=== PATIENT | female | born 1935 | race African-American/Black ===

== ENCOUNTER 2017-07-07 14:21 | Inpatient (IN) | payer MEDICARE ==
[~2017-07-07] VITALS: Ht 162.6 cm; Wt 70.3 kg
[2017-07-07] VITALS (23 sets, daily range): BP systolic 56–147; BP diastolic 24–96
[2017-07-07] MEDS ORDERED: Ampicillin/Sulbactam Sod 3 GM in NS 110 ML IV SCH (14:30)
[2017-07-07] MEDS ORDERED: Vancomycin 1 GM in NS 275 ML IV ONE (14:30)
[2017-07-07] MEDS ORDERED: BISACODYL5 MG RECTAL (14:40)
[2017-07-07] MEDS ORDERED: NAMENDA5 MG GT (14:40)
[2017-07-07] MEDS ORDERED: MILK OF MA2400 MG/10 GT (14:40)
[2017-07-07] MEDS ORDERED: TRAZODONE HCL50 MG GT ×2 (14:40→18:47)
[2017-07-07] MEDS ORDERED: ACETAMINOP160 MG/5 M GT (14:40)
[2017-07-07] MEDS ORDERED: VALPROIC ACID1 ML GT (14:40)
[2017-07-07] MEDS ORDERED: VITAMIN C500 M1 GT (14:40)
[2017-07-07] MEDS ORDERED: LATANOPROST2.5 ML BOTH EYES (14:40)
[2017-07-07] MEDS ORDERED: ALBUTEROL2.5 MG/3 M INH (14:40)
[2017-07-07] MEDS ORDERED: IPRATROPIU0.2 MG/1 M HHN (14:40)
[2017-07-07] MEDS ORDERED: LORAZEPAM0.5 MG GT ×2 (14:40→18:48)
--- NOTE | 2017-07-07 15:00 | Diagnostic Imaging Report ---
Indication: Dyspnea Comparison: None A single view chest radiograph was obtained. Findings: Interstitial edema, vascular prominence, borderline cardiomegaly and hazy basilar opacities probably pleural effusions demonstrated. Tracheostomy and generalized osteopenia are noted. Impression: CHF/interstitial edema. Suspected bilateral pleural effusions
[2017-07-07] MEDS ORDERED: Lidocaine 1% Plain 30 ml INJ ONE ×2 (15:16→16:45)
[2017-07-07] MEDS ORDERED: Albuterol/Ipratropium 3ml neb HHN PRN (15:30)
[2017-07-07] MEDS ORDERED: Morphine Sulfate 4mg/ml Inj IVP PRN (15:30)
[2017-07-07] MEDS ORDERED: Miralax 17gm pkt ORAL PRN (15:30)
--- NOTE | 2017-07-07 15:32 | Pulmonolgy Critical Care Note ---
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 - Objective Last 24 Hour Vital Signs Date Time Temp Pulse Resp B/P (MAP) Pulse Ox O2 Delivery O2 Flow Rate FiO2 07/07/17 14:30 115 23 Mechanical Ventilator 15.0 35 07/07/17 14:30 115 21 35 07/07/17 14:23 97.9 118 24 61/38 100 Mechanical Ventilator 35 Status: awake Condition: critical HEENT: atraumatic Lungs: clear Heart: HR/BP unstable Abdomen: soft, non-tender Extremities: no C/C/E Critical Care - Subjective ROS Limited/Unobtainable: Yes ICU Day: 1 Interval Events: pt with chronic respiratory failure, bed bound, seizures, htn, admitted to ICU because of septic shock FI02: 35 Vent Support Breath Rate: 15 Vent Support Mode: AC Vent Tidal Volume: 500 Sputum Amount: Small PEEP: 5.0 PIP: 31 Fluids: NS 100 cc/hour Drips: Levophed 9 ug CXR: bilateral infiltrate Labs: Laboratory Tests Test 07/07/17 15:05 07/07/17 15:35 07/08/17 04:35 White Blood Count 21.1 K/UL (4.8-10.8) H 16.6 K/UL (4.8-10.8) H Red Blood Count 2.65 M/UL (4.20-5.40) L 2.31 M/UL (4.20-5.40) L Hemoglobin 8.0 G/DL (12.0-16.0) L 7.1 G/DL (12.0-16.0) L Hematocrit 26.4 % (37.0-47.0) L 22.3 % (37.0-47.0) L Mean Corpuscular Volume 100 FL (80-99) H 96 FL (80-99) Mean Corpuscular Hemoglobin 30.2 PG (27.0-31.0) 30.8 PG (27.0-31.0) Mean Corpuscular Hemoglobin Concent 30.4 G/DL (32.0-36.0) L 32.0 G/DL (32.0-36.0) Red Cell Distribution Width 15.2 % (11.6-14.8) H 15.3 % (11.6-14.8) H Platelet Count 381 K/UL (150-450) 400 K/UL (150-450) Mean Platelet Volume 6.4 FL (6.5-10.1) L 7.0 FL (6.5-10.1) Neutrophils (%) (Auto) % (45.0-75.0) % (45.0-75.0) Lymphocytes (%) (Auto) % (20.0-45.0) % (20.0-45.0) Monocytes (%) (Auto) % (1.0-10.0) % (1.0-10.0) Eosinophils (%) (Auto) % (0.0-3.0) % (0.0-3.0) Basophils (%) (Auto) % (0.0-2.0) % (0.0-2.0) Differential Total Cells Counted 100 Neutrophils % (Manual) 77 % (45-75) H Pending Lymphocytes % (Manual) 8 % (20-45) L Pending Monocytes % (Manual) 5 % (1-10) Eosinophils % (Manual) 3 % (0-3) Basophils % (Manual) 0 % (0-2) Band Neutrophils 7 % (0-8) Nucleated Red Blood Cells 1 /100 WBC Platelet Estimate Adequate Pending Platelet Morphology Normal Pending Polychromasia 1+ Anisocytosis 1+ Macrocytosis 1+ Sodium Level 153 MMOL/L (136-145) H 157 MMOL/L (136-145) H Potassium Level 4.4 MMOL/L (3.5-5.1) 3.8 MMOL/L (3.5-5.1) Chloride Level 113 MMOL/L (98-107) H 119 MMOL/L (98-107) H Carbon Dioxide Level 30 MMOL/L (21-32) 30 MMOL/L (21-32) Anion Gap 10 mmol/L (5-15) 8 mmol/L (5-15) Blood Urea Nitrogen 33 mg/dL (7-18) H 29 mg/dL (7-18) H Creatinine 1.1 MG/DL (0.55-1.30) 1.0 MG/DL (0.55-1.30) Estimat Glomerular Filtration Rate mL/min (>60) mL/min (>60) Glucose Level 231 MG/DL (74-106) H 88 MG/DL (74-106) # Lactic Acid Level 2.00 mmol/L (0.66-2.22) 1.90 mmol/L (0.66-2.22) 1.60 mmol/L (0.66-2.22) Calcium Level 9.2 MG/DL (8.5-10.1) 8.6 MG/DL (8.5-10.1) Total Bilirubin 0.2 MG/DL (0.2-1.0) 0.3 MG/DL (0.2-1.0) Aspartate Amino Transf (AST/SGOT) 34 U/L (15-37) 20 U/L (15-37) Alanine Aminotransferase (ALT/SGPT) 22 U/L (12-78) 20 U/L (12-78) Alkaline Phosphatase 64 U/L (46-116) 57 U/L (46-116) Total Creatine Kinase 57 U/L (26-308) Creatine Kinase MB 0.6 NG/ML (0.0-3.6) Creatine Kinase MB Relative Index 1.0 Troponin I 0.062 ng/mL (0.000-0.056) Total Protein 9.2 G/DL (6.4-8.2) H 8.4 G/DL (6.4-8.2) H Albumin 2.0 G/DL (3.4-5.0) L 1.9 G/DL (3.4-5.0) L Globulin 7.2 g/dL 6.5 g/dL Albumin/Globulin Ratio 0.3 (1.0-2.7) L 0.3 (1.0-2.7) L Urine Color Yellow Urine Appearance Slightly cloudy Urine pH 6.5 (4.5-8.0) Urine Specific [place] 1.010 (1.005-1.035) Urine Protein 2+ (NEGATIVE) H Urine Glucose (UA) Negative (NEGATIVE) Urine Ketones Negative (NEGATIVE) Urine Occult Blood 2+ (NEGATIVE) H Urine Nitrite Negative (NEGATIVE) Urine Bilirubin Negative (NEGATIVE) Urine Urobilinogen Normal MG/DL (0.0-1.0) Urine Leukocyte Esterase 2+ (NEGATIVE) H Urine RBC 10-15 /HPF (0 - 2) H Urine WBC 15-20 /HPF (0 - 2) H Urine Squamous Epithelial Cells Occasional /LPF Urine Amorphous Sediment Moderate /LPF (NONE) H Urine Bacteria Moderate /HPF (NONE) H Direct Bilirubin < 0.1 MG/DL (0.0-0.3) COBY LEBLANC Jul 07, 2017 15:32
[2017-07-07 15:33] LABS: MEAN CORPUSCULAR HEMOGLOBIN 30.2 PG (27.0-31.0); MEAN CORPUSCULAR HGB CONC 30.4 G/DL (32.0-36.0); MEAN CORPUSCULAR VOLUME 100 FL (80-99); MEAN PLATELET VOLUME 6.4 FL (6.5-10.1); PLATELET COUNT 381 K/UL (150-450); RED BLOOD COUNT 2.65 M/UL (4.20-5.40); RED CELL DISTRIBUTION WIDTH 15.2 % (11.6-14.8); WHITE BLOOD COUNT 21.1 K/UL (4.8-10.8)
[2017-07-07] MEDS ORDERED: Vancomycin 1gm inj IVPB ONE (15:48)
[2017-07-07 15:50] LABS: ANION GAP 10 mmol/L (5-15); CALCIUM 9.2 MG/DL (8.5-10.1); CARBON DIOXIDE 30 MMOL/L (21-32); CHLORIDE 113 MMOL/L (98-107); CREATININE 1.1 MG/DL (0.55-1.30); POTASSIUM 4.4 MMOL/L (3.5-5.1); SODIUM 153 MMOL/L (136-145)
[2017-07-07 16:05] LABS: ALANINE AMINOTRANSFERASE 22 U/L (12-78); ALBUMIN/GLOBULIN RATIO 0.3 (1.0-2.7); ASPARTATE AMINO TRANSFERASE 34 U/L (15-37); CKMB 0.6 NG/ML (0.0-3.6); TOTAL PROTEIN 9.2 G/DL (6.4-8.2)
--- NOTE | 2017-07-07 16:10 | Emergency Room Report ---
History of Present Illness General Chief Complaint: Fever Source: Medical Record Present Illness HPI Patient is an 82-year-old female brought in by EMS after had decreased blood pressure as well as fever patient had recently been started on antibiotics for pneumonia. 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 Patient had been given IV Zosyn. She was noted to have temperature at her facility which is [place]. Patient was sent in by Dr. Ronquillo. 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 History is markedly limited by patient's mental status. Allergies: Coded Allergies: ASPIRIN (Verified Allergy, Unknown, 07/07/17) Patient History Past Medical History: see triage record Reviewed Nursing Documentation: PMH: Agreed, PSxH: Agreed Nursing Documentation-PMH Past Medical History: No History, Except For Hx Hypertension: Yes Hx Seizures: Yes Review of Systems All Other Systems: limited - by mental status Physical Exam Vital Signs Date Time Temp Pulse Resp B/P (MAP) Pulse Ox O2 Delivery O2 Flow Rate FiO2 07/07/17 14:23 97.9 118 24 61/38 100 Mechanical Ventilator 35 07/07/17 14:30 15.0 Sp02 EP Interpretation: reviewed, normal General Appearance: normal inspection, mild distress, Chronically Ill Head: atraumatic Eyes: bilateral eye other - disconjugate gaze ENT: normal ENT inspection, hearing grossly normal, normal voice Neck: supple, no bony tend, limited range of motion Respiratory: normal inspection, no retraction, crackles Cardiovascular #1: regular rate, rhythm, no edema Gastrointestinal: normal inspection, non tender, soft, no guarding, no hernia, other - gtube present Genitourinary: no CVA tenderness Musculoskeletal: other - extensor contractures Neurologic: motor weakness - moves all extremities Psychiatric: judgement/insight normal, mood/affect normal Skin: normal color, no rash Procedures Critical Care Time Critical Care Time Patient had a critical medical condition which untreated could potentially result in life or limb threatening injury. Total critical care time excluding procedures approximately 45 minutes. Central Line Central Line : Consent: Emergent Central Line Lumen: triple Maximal Sterile Barrier Tech: yes cap, yes mask, yes sterile gown, yes sterile gloves, yes large sterile sheet, yes hand hygiene, yes chlorhexidine prep Central Line Postion: subclavian (R) Anesthesia: Lidocaine - 5 cc's of anesthesia: 5 Complications: none Central Line Post Position: sutured, good blood return, position confirmed w / CXR Attempts: One Patient Tolerated: Well Complications: None Medical Decision Making Diagnostic Impression: Primary Impression: Septic shock Additional Impression: Pneumonia ER Course Patient presented for fever. Differential diagnosis included wasn't limited to pneumonia, urinary tract infection, drug fever, allergic reaction, sepsis, cholecystitis, among others.Because of complexity of patient's case laboratory testing and imaging studies were ordered.Patient started on IV fluids as well as IV antibiotics. The patient subsequently started on pressors for continued hypotension.Patient noted to have continued delay cap Refill after IV fluid. 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 Dr. Ho Mcghee was contacted for inpatient management due to covering for primary care physician Dr Ronquillo. Labs Test 07/07/17 15:05 07/07/17 15:35 White Blood Count 21.1 K/UL (4.8-10.8) Red Blood Count 2.65 M/UL (4.20-5.40) Hemoglobin 8.0 G/DL (12.0-16.0) Hematocrit 26.4 % (37.0-47.0) Mean Corpuscular Volume 100 FL (80-99) Mean Corpuscular Hemoglobin 30.2 PG (27.0-31.0) Mean Corpuscular Hemoglobin Concent 30.4 G/DL (32.0-36.0) Red Cell Distribution Width 15.2 % (11.6-14.8) Platelet Count 381 K/UL (150-450) Mean Platelet Volume 6.4 FL (6.5-10.1) Neutrophils (%) (Auto) % (45.0-75.0) Lymphocytes (%) (Auto) % (20.0-45.0) Monocytes (%) (Auto) % (1.0-10.0) Eosinophils (%) (Auto) % (0.0-3.0) Basophils (%) (Auto) % (0.0-2.0) Sodium Level 153 MMOL/L (136-145) Potassium Level 4.4 MMOL/L (3.5-5.1) Chloride Level 113 MMOL/L (98-107) Carbon Dioxide Level 30 MMOL/L (21-32) Anion Gap 10 mmol/L (5-15) Blood Urea Nitrogen 33 mg/dL (7-18) Creatinine 1.1 MG/DL (0.55-1.30) Estimat Glomerular Filtration Rate mL/min (>60) Glucose Level 231 MG/DL (74-106) Calcium Level 9.2 MG/DL (8.5-10.1) Total Bilirubin 0.2 MG/DL (0.2-1.0) Aspartate Amino Transf (AST/SGOT) 34 U/L (15-37) Alanine Aminotransferase (ALT/SGPT) 22 U/L (12-78) Alkaline Phosphatase 64 U/L (46-116) Total Creatine Kinase 57 U/L (26-308) Creatine Kinase MB 0.6 NG/ML (0.0-3.6) Creatine Kinase MB Relative Index 1.0 Troponin I 0.062 ng/mL (0.000-0.056) Total Protein 9.2 G/DL (6.4-8.2) Albumin 2.0 G/DL (3.4-5.0) Globulin 7.2 g/dL Albumin/Globulin Ratio 0.3 (1.0-2.7) EKG Diagnostic Results Rate: tachycardiac Rhythm: NSR - 109 ST Segments: no acute changes ASA given to the pt in ED: No Rhythm Strip Diag. Results EP Interpretation: yes Rhythm: NSR, no PVC's, no ectopy Last Vital Signs Date Time Temp Pulse Resp B/P (MAP) Pulse Ox O2 Delivery O2 Flow Rate FiO2 07/07/17 14:30 115 23 Mechanical Ventilator 15.0 35 07/07/17 14:23 97.9 61/38 100 Status: unchanged Disposition: ADMITTED INPATIENT Condition: Critical Referrals: CRISTINE DE LA CRUZ (PCP) Nakul Martines Jul 07, 2017 16:09
[2017-07-07 16:27] LABS: APPEARANCE,URINE SLIGHTLY CLOUDY; KETONES,URINE NEGATIVE (NEGATIVE); LEUKOCYTE ESTERASE ,URINE 2+ (NEGATIVE); NITRITE,URINE NEGATIVE (NEGATIVE); PH,URINE 6.5 (4.5-8.0); PROTEIN,URINE 2+ (NEGATIVE); UROBILINOGEN,URINE NORMAL MG/DL (0.0-1.0)
[2017-07-07 16:34] LABS: REFLEX LACTIC ACID YES OR NO YES
[2017-07-07 16:37] LABS: AMORPHOUS SEDIMENT,UR MODERATE /LPF; BACTERIA,URINE MODERATE /HPF; SQUAMOUS EPITHELIAL CELL,UR OCCASIONAL /LPF (NONE/OCC); WBC,URINE 15-20 /HPF (0 - 2)
--- NOTE | 2017-07-07 16:44 | Diagnostic Imaging Report ---
Indication: Line placement Comparison: 07/07/70 A single view chest radiograph was obtained. Findings: Interstitial edema demonstrated. The heart is enlarged. Tracheostomy noted. Right subclavian line is present. There is no pneumothorax identified Impression: Subclavian line in good position. No pneumothorax
[2017-07-07 16:48] LABS: BAND NEUTROPHILS % (MANUAL) 7 % (0-8); EOSINOPHILS % (MANUAL) 3 % (0-3); LYMPHOCYTES % (MANUAL) 8 % (20-45); NEUTROPHILS % (MANUAL) 77 % (45-75); NUCLEATED RED BLOOD CELLS 1 /100 WBC; TOTAL CELLS COUNTED 100
[2017-07-07 16:49] LABS: ANISOCYTOSIS 1+; POLYCHROMASIA 1+
[2017-07-07 16:50] LABS: BASOPHILS % (MANUAL) 0 % (0-2); MACROCYTES 1+; PLATELET ESTIMATE ADEQUATE; PLATELET MORPHOLOGY NORMAL
[2017-07-07] MEDS ORDERED: Levophed 4mg/4mL Inj IV ONE (17:04)
[2017-07-07] MEDS ORDERED: Ertapenem 1 GM in NS 55 ML IV SCH (18:00)
[2017-07-07] MEDS ORDERED: Amikacin Rx to dose MISC PRN (18:30)
[2017-07-07] MEDS ORDERED: BISACODYL10 M1 RC (18:36)
[2017-07-07] MEDS ORDERED: LORAZEPAM0.5 MG ORAL (18:40)
[2017-07-07] MEDS ORDERED: MILK OF MA400 MG/51 GT (18:45)
[2017-07-07] MEDS ORDERED: MILK OF MA400 MG/51 ORAL (18:45)
[2017-07-07] MEDS ORDERED: Amikacin 800 MG in NS 110 ML IV SCH (20:00)
[2017-07-07] MEDS: Heparin 5000 units/ml inj SUBQ SCH (21:03)
--- NOTE | 2017-07-07 22:51 | History & Physical ---
History and Physical History & Physicial The patient was seen and examined at bedside and all new and available data was reviewed in the patients chart. Last 24 Hour Vital Signs Date Time Temp Pulse Resp B/P (MAP) Pulse Ox O2 Delivery O2 Flow Rate FiO2 07/07/17 22:48 67 16 35 07/07/17 22:15 60 16 83/30 100 Mechanical Ventilator 35 07/07/17 22:00 60 16 92/30 100 Mechanical Ventilator 35 07/07/17 21:45 59 16 76/55 100 Mechanical Ventilator 35 07/07/17 21:30 60 16 113/34 100 Mechanical Ventilator 35 07/07/17 21:15 59 16 103/32 100 Mechanical Ventilator 35 07/07/17 21:10 58 16 35 07/07/17 21:00 61 16 104/35 100 Mechanical Ventilator 35 07/07/17 21:00 104/35 07/07/17 20:45 60 16 105/41 100 Mechanical Ventilator 35 07/07/17 20:37 70/44 07/07/17 20:30 60 16 70/44 100 Mechanical Ventilator 35 07/07/17 20:15 60 16 89/33 100 Mechanical Ventilator 35 07/07/17 20:00 98.5 64 16 134/66 100 Mechanical Ventilator 35 07/07/17 20:00 59 07/07/17 19:45 58 16 105/44 100 Mechanical Ventilator 35 07/07/17 19:30 59 16 122/40 100 Mechanical Ventilator 35 07/07/17 19:15 60 16 56/28 100 Mechanical Ventilator 35 07/07/17 19:00 64 16 64/24 100 Mechanical Ventilator 35 07/07/17 18:54 71 16 35 07/07/17 18:27 99.3 62 17 94/41 100 Mechanical Ventilator 15.0 35 07/07/17 18:15 91/52 07/07/17 18:07 84/41 07/07/17 18:00 123/66 07/07/17 17:50 99.3 62 17 123/66 100 Mechanical Ventilator 15.0 35 07/07/17 17:22 65 18 35 07/07/17 17:20 93/42 07/07/17 16:49 35 07/07/17 16:45 99.3 70 16 100/45 100 Mechanical Ventilator 35 07/07/17 14:30 115 23 Mechanical Ventilator 15.0 35 07/07/17 14:30 115 21 35 07/07/17 14:25 97.9 24 61/38 100 Mechanical Ventilator 35 07/07/17 14:23 97.9 118 24 61/38 100 Mechanical Ventilator 35 F/U Labs F/U cultures Abx, IVF -PT mobility F/U with Dr. Yu Recommendation H&P dictated (Patient was seen earlier today. Signature timestamp does not reflect patient encounter time) Ho Recinos MD, MD Jul 07, 2017 22:51
[2017-07-08] VITALS (65 sets, daily range): BP systolic 79–140; BP diastolic 31–90
[2017-07-08 05:40] LABS: MEAN CORPUSCULAR HEMOGLOBIN 30.8 PG (27.0-31.0); MEAN CORPUSCULAR VOLUME 96 FL (80-99); PLATELET COUNT 400 K/UL (150-450); RED BLOOD COUNT 2.31 M/UL (4.20-5.40); RED CELL DISTRIBUTION WIDTH 15.3 % (11.6-14.8); WHITE BLOOD COUNT 16.6 K/UL (4.8-10.8)
[2017-07-08 05:47] LABS: ALANINE AMINOTRANSFERASE 20 U/L (12-78); ALBUMIN/GLOBULIN RATIO 0.3 (1.0-2.7); ANION GAP 8 mmol/L (5-15); ASPARTATE AMINO TRANSFERASE 20 U/L (15-37); BILIRUBIN,DIRECT < 0.1 MG/DL (0.0-0.3); CALCIUM 8.6 MG/DL (8.5-10.1); CARBON DIOXIDE 30 MMOL/L (21-32); CHLORIDE 119 MMOL/L (98-107); POTASSIUM 3.8 MMOL/L (3.5-5.1); SODIUM 157 MMOL/L (136-145); TOTAL PROTEIN 8.4 G/DL (6.4-8.2)
--- NOTE | 2017-07-08 06:39 | Pulmonolgy Critical Care Note ---
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, 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 - Objective Last 24 Hour Vital Signs Date Time Temp Pulse Resp B/P (MAP) Pulse Ox O2 Delivery O2 Flow Rate FiO2 07/08/17 06:00 69 16 92/47 100 Mechanical Ventilator 35 07/08/17 05:54 97/45 07/08/17 05:45 82 16 84/42 100 Mechanical Ventilator 35 07/08/17 05:30 77 16 97/56 99 Mechanical Ventilator 35 07/08/17 05:29 83 16 35 07/08/17 05:15 72 16 82/38 100 Mechanical Ventilator 35 07/08/17 05:00 100/37 07/08/17 05:00 74 16 100/37 100 Mechanical Ventilator 35 07/08/17 04:45 73 16 107/45 100 Mechanical Ventilator 35 07/08/17 04:45 70 16 107/45 100 Mechanical Ventilator 35 07/08/17 04:30 70 16 88/44 100 Mechanical Ventilator 35 07/08/17 04:15 64 17 87/34 100 Mechanical Ventilator 35 07/08/17 04:00 76/41 07/08/17 04:00 99.1 74 17 88/36 100 Mechanical Ventilator 35 07/08/17 04:00 68 07/08/17 03:45 78 17 86/36 100 Mechanical Ventilator 35 07/08/17 03:30 79 21 125/82 100 Mechanical Ventilator 35 07/08/17 03:25 76 16 35 07/08/17 03:15 81 19 111/80 100 Mechanical Ventilator 35 07/08/17 03:00 69 16 98/33 100 Mechanical Ventilator 35 07/08/17 03:00 98/33 07/08/17 02:45 65 16 103/31 100 Mechanical Ventilator 35 07/08/17 02:30 62 16 107/39 100 Mechanical Ventilator 35 07/08/17 02:15 61 17 109/35 100 Mechanical Ventilator 35 07/08/17 02:00 85/42 07/08/17 02:00 62 16 85/42 100 Mechanical Ventilator 35 07/08/17 01:45 69 16 81/37 100 Mechanical Ventilator 35 07/08/17 01:30 70 16 92/33 100 Mechanical Ventilator 35 07/08/17 01:19 65 16 35 07/08/17 01:15 79 17 104/84 100 Mechanical Ventilator 35 07/08/17 01:00 72 19 140/65 99 Mechanical Ventilator 35 07/08/17 01:00 115/47 07/08/17 00:45 66 19 115/47 100 Mechanical Ventilator 35 07/08/17 00:30 63 16 100/42 100 Mechanical Ventilator 35 07/08/17 00:15 61 17 83/51 100 Mechanical Ventilator 35 07/08/17 00:00 98.8 61 16 85/37 100 Mechanical Ventilator 35 07/08/17 00:00 69 07/08/17 00:00 85/37 07/07/17 23:45 61 17 106/38 100 Mechanical Ventilator 35 07/07/17 23:30 62 16 89/33 100 Mechanical Ventilator 35 07/07/17 23:15 63 16 91/67 100 Mechanical Ventilator 35 07/07/17 23:00 103/49 07/07/17 23:00 66 16 91/39 100 Mechanical Ventilator 35 07/07/17 22:48 67 16 35 07/07/17 22:45 62 16 108/27 100 Mechanical Ventilator 35 07/07/17 22:30 65 16 147/96 100 Mechanical Ventilator 35 07/07/17 22:15 60 16 83/30 100 Mechanical Ventilator 35 07/07/17 22:00 60 16 92/30 100 Mechanical Ventilator 35 07/07/17 22:00 92/30 07/07/17 21:45 59 16 76/55 100 Mechanical Ventilator 35 07/07/17 21:30 60 16 113/34 100 Mechanical Ventilator 35 07/07/17 21:15 59 16 103/32 100 Mechanical Ventilator 35 07/07/17 21:10 58 16 35 07/07/17 21:00 61 16 104/35 100 Mechanical Ventilator 35 07/07/17 21:00 104/35 07/07/17 20:45 60 16 105/41 100 Mechanical Ventilator 35 07/07/17 20:37 70/44 07/07/17 20:30 60 16 70/44 100 Mechanical Ventilator 35 07/07/17 20:15 60 16 89/33 100 Mechanical Ventilator 35 07/07/17 20:00 98.5 64 16 134/66 100 Mechanical Ventilator 35 07/07/17 20:00 59 07/07/17 19:45 58 16 105/44 100 Mechanical Ventilator 35 07/07/17 19:30 59 16 122/40 100 Mechanical Ventilator 35 07/07/17 19:15 60 16 56/28 100 Mechanical Ventilator 35 07/07/17 19:00 64 16 64/24 100 Mechanical Ventilator 35 07/07/17 18:54 71 16 35 07/07/17 18:27 99.3 62 17 94/41 100 Mechanical Ventilator 15.0 35 07/07/17 18:15 91/52 07/07/17 18:07 84/41 07/07/17 18:00 123/66 07/07/17 17:50 99.3 62 17 123/66 100 Mechanical Ventilator 15.0 35 07/07/17 17:22 65 18 35 07/07/17 17:20 93/42 07/07/17 16:49 35 07/07/17 16:45 99.3 70 16 100/45 100 Mechanical Ventilator 35 07/07/17 14:30 115 23 Mechanical Ventilator 15.0 35 07/07/17 14:30 115 21 35 07/07/17 14:25 97.9 24 61/38 100 Mechanical Ventilator 35 07/07/17 14:23 97.9 118 24 61/38 100 Mechanical Ventilator 35 Status: awake Condition: critical HEENT: atraumatic Lungs: clear Heart: HR/BP stable, HR/BP unstable Abdomen: soft, active bowel sounds, feeding tube Extremities: no C/C/E, edema Decubiti: location Critical Care - Subjective ROS Limited/Unobtainable: Yes - 2 Interval Events: looks comfortable, opens eyes, but doesn't follow commands FI02: 35 Vent Support Breath Rate: 16 Vent Support Mode: AC Vent Tidal Volume: 600 Sputum Amount: Large PEEP: 5.0 PIP: 50 Fluids: NS 100 cc/hour CXR: bilateral infiltrate Labs: Laboratory Tests Test 07/07/17 15:05 07/07/17 15:35 07/08/17 04:35 White Blood Count 21.1 K/UL (4.8-10.8) H 16.6 K/UL (4.8-10.8) H Red Blood Count 2.65 M/UL (4.20-5.40) L 2.31 M/UL (4.20-5.40) L Hemoglobin 8.0 G/DL (12.0-16.0) L 7.1 G/DL (12.0-16.0) L Hematocrit 26.4 % (37.0-47.0) L 22.3 % (37.0-47.0) L Mean Corpuscular Volume 100 FL (80-99) H 96 FL (80-99) Mean Corpuscular Hemoglobin 30.2 PG (27.0-31.0) 30.8 PG (27.0-31.0) Mean Corpuscular Hemoglobin Concent 30.4 G/DL (32.0-36.0) L 32.0 G/DL (32.0-36.0) Red Cell Distribution Width 15.2 % (11.6-14.8) H 15.3 % (11.6-14.8) H Platelet Count 381 K/UL (150-450) 400 K/UL (150-450) Mean Platelet Volume 6.4 FL (6.5-10.1) L 7.0 FL (6.5-10.1) Neutrophils (%) (Auto) % (45.0-75.0) % (45.0-75.0) Lymphocytes (%) (Auto) % (20.0-45.0) % (20.0-45.0) Monocytes (%) (Auto) % (1.0-10.0) % (1.0-10.0) Eosinophils (%) (Auto) % (0.0-3.0) % (0.0-3.0) Basophils (%) (Auto) % (0.0-2.0) % (0.0-2.0) Differential Total Cells Counted 100 Neutrophils % (Manual) 77 % (45-75) H Pending Lymphocytes % (Manual) 8 % (20-45) L Pending Monocytes % (Manual) 5 % (1-10) Eosinophils % (Manual) 3 % (0-3) Basophils % (Manual) 0 % (0-2) Band Neutrophils 7 % (0-8) Nucleated Red Blood Cells 1 /100 WBC Platelet Estimate Adequate Pending Platelet Morphology Normal Pending Polychromasia 1+ Anisocytosis 1+ Macrocytosis 1+ Sodium Level 153 MMOL/L (136-145) H 157 MMOL/L (136-145) H Potassium Level 4.4 MMOL/L (3.5-5.1) 3.8 MMOL/L (3.5-5.1) Chloride Level 113 MMOL/L (98-107) H 119 MMOL/L (98-107) H Carbon Dioxide Level 30 MMOL/L (21-32) 30 MMOL/L (21-32) Anion Gap 10 mmol/L (5-15) 8 mmol/L (5-15) Blood Urea Nitrogen 33 mg/dL (7-18) H 29 mg/dL (7-18) H Creatinine 1.1 MG/DL (0.55-1.30) 1.0 MG/DL (0.55-1.30) Estimat Glomerular Filtration Rate mL/min (>60) mL/min (>60) Glucose Level 231 MG/DL (74-106) H 88 MG/DL (74-106) # Lactic Acid Level 2.00 mmol/L (0.66-2.22) 1.90 mmol/L (0.66-2.22) 1.60 mmol/L (0.66-2.22) Calcium Level 9.2 MG/DL (8.5-10.1) 8.6 MG/DL (8.5-10.1) Total Bilirubin 0.2 MG/DL (0.2-1.0) 0.3 MG/DL (0.2-1.0) Aspartate Amino Transf (AST/SGOT) 34 U/L (15-37) 20 U/L (15-37) Alanine Aminotransferase (ALT/SGPT) 22 U/L (12-78) 20 U/L (12-78) Alkaline Phosphatase 64 U/L (46-116) 57 U/L (46-116) Total Creatine Kinase 57 U/L (26-308) Creatine Kinase MB 0.6 NG/ML (0.0-3.6) Creatine Kinase MB Relative Index 1.0 Troponin I 0.062 ng/mL (0.000-0.056) Total Protein 9.2 G/DL (6.4-8.2) H 8.4 G/DL (6.4-8.2) H Albumin 2.0 G/DL (3.4-5.0) L 1.9 G/DL (3.4-5.0) L Globulin 7.2 g/dL 6.5 g/dL Albumin/Globulin Ratio 0.3 (1.0-2.7) L 0.3 (1.0-2.7) L Urine Color Yellow Urine Appearance Slightly cloudy Urine pH 6.5 (4.5-8.0) Urine Specific [place] 1.010 (1.005-1.035) Urine Protein 2+ (NEGATIVE) H Urine Glucose (UA) Negative (NEGATIVE) Urine Ketones Negative (NEGATIVE) Urine Occult Blood 2+ (NEGATIVE) H Urine Nitrite Negative (NEGATIVE) Urine Bilirubin Negative (NEGATIVE) Urine Urobilinogen Normal MG/DL (0.0-1.0) Urine Leukocyte Esterase 2+ (NEGATIVE) H Urine RBC 10-15 /HPF (0 - 2) H Urine WBC 15-20 /HPF (0 - 2) H Urine Squamous Epithelial Cells Occasional /LPF Urine Amorphous Sediment Moderate /LPF (NONE) H Urine Bacteria Moderate /HPF (NONE) H Direct Bilirubin < 0.1 MG/DL (0.0-0.3) COBY LEBLANC Jul 08, 2017 06:39
[2017-07-08 08:15] LABS: ABG BASE EXCESS 2.6; ABG PCO2 45.7 mmHg (35.0-45.0)
[2017-07-08 08:16] LABS: ABG ALLEN TEST POSITIVE
[2017-07-08] MEDS: Pantoprazole Inj IVP SCH (08:35)
[2017-07-08] MEDS: Heparin 5000 units/ml inj SUBQ SCH ×2 (08:36→20:40)
--- NOTE | 2017-07-08 09:27 | Consultation ---
History of Present Illness General Date patient seen: Jul 08, 2017 - 9:27a Chief Complaint: Fever Present Illness HPI 82 y/o F with hx of HTN, seizure disorder, chronic resp failure (vent and G- tube dependent) is admitted on 07/07 with hypotension and fever. Of note, patient recently started on Abx for PNA Febrile to 100.2. leukocytosis to 21, now improving. hyptensive to 50s and started on levophed. Started on IV Vanco and amikacin. Allergies: Coded Allergies: ASPIRIN (Verified Allergy, Unknown, 07/07/17) Medication History Scheduled Ascorbic Acid* (Vitamin C*), 500 MG GT BID, (Reported) Latanoprost* (Xalatan*), 1 DROP BOTH EYES BEDTIME, (Reported) Memantine Hcl* (Namenda*), 5 MG GT TWICE A DAY, (Reported) Valproic Acid (Valproic Acid), 5 ML GT BID, (Reported) Scheduled PRN Acetaminophen 160MG/5ML* (Acetaminophen*), 20.3 ML GT Q4HR PRN for Fever/ Headache/Mild Pain, (Reported) Albuterol Sulfate* (Albuterol Sulfate Hhn*), 3 ML INH EVERY 2 HOURS PRN for Shortness of Breath, (Reported) Bisacodyl (Bisacodyl), 10 MG RC for Constipation, (Reported) Ipratropium [place] 0.5MG/2.5ML (Ipratropium [place] 0.5MG/2.5ML), 0.5 MG HHN Q6H PRN for Shortness of Breath, (Reported) Lorazepam* (Lorazepam*), 0.5 MG GT DAILY PRN for For Anxiety, (Reported) Magnesium Hydroxide* (Milk Of Magnesia*), 15 ML GT DAILY PRN for Constipation, ( Reported) Trazodone Hcl* (Desyrel*), 50 MG GT BEDTIME PRN for insomnia, (Reported) Patient History Healthcare decision maker DENISE BULLOCK Resuscitation status Full Code Advanced Directive on File Patient History Narrative PMhx:as above SHx: unable to obtain Fhx: non contributory Review of Systems ROS Narrative unable to obtain Physical Exam Physical Exam Narrative General Appearance: normal inspection, mild distress, Chronically Ill Head: atraumatic Eyes: bilateral eye other - disconjugate gaze ENT: normal ENT inspection, hearing grossly normal, normal voice Neck: supple, no bony tend, limited range of motion Respiratory: normal inspection, no retraction, crackles Cardiovascular #1: regular rate, rhythm, no edema Gastrointestinal: normal inspection, non tender, soft, no guarding, no hernia, other - gtube present Genitourinary: no CVA tenderness Musculoskeletal: other - extensor contractures Neurologic: motor weakness - moves all extremities Skin: normal color, no rash Last 24 Hour Vital Signs Date Time Temp Pulse Resp B/P (MAP) Pulse Ox O2 Delivery O2 Flow Rate FiO2 07/08/17 09:17 66 16 35 07/08/17 08:00 83 07/08/17 07:15 91 16 112/38 100 Mechanical Ventilator 35 07/08/17 07:04 70 16 35 07/08/17 07:00 112/57 07/08/17 07:00 93 16 112/38 99 Mechanical Ventilator 35 07/08/17 06:45 72 16 105/41 100 Mechanical Ventilator 35 07/08/17 06:30 69 14 87/39 100 Mechanical Ventilator 35 07/08/17 06:15 65 16 79/41 100 Mechanical Ventilator 35 07/08/17 06:00 69 16 92/47 100 Mechanical Ventilator 35 07/08/17 05:54 97/45 07/08/17 05:45 82 16 84/42 100 Mechanical Ventilator 35 07/08/17 05:30 77 16 97/56 99 Mechanical Ventilator 35 07/08/17 05:29 83 16 35 07/08/17 05:15 72 16 82/38 100 Mechanical Ventilator 35 07/08/17 05:00 100/37 07/08/17 05:00 74 16 100/37 100 Mechanical Ventilator 35 07/08/17 04:45 73 16 107/45 100 Mechanical Ventilator 35 07/08/17 04:45 70 16 107/45 100 Mechanical Ventilator 35 07/08/17 04:30 70 16 88/44 100 Mechanical Ventilator 35 07/08/17 04:15 64 17 87/34 100 Mechanical Ventilator 35 07/08/17 04:00 76/41 07/08/17 04:00 99.1 74 17 88/36 100 Mechanical Ventilator 35 07/08/17 04:00 68 07/08/17 03:45 78 17 86/36 100 Mechanical Ventilator 35 07/08/17 03:30 79 21 125/82 100 Mechanical Ventilator 35 07/08/17 03:25 76 16 35 07/08/17 03:15 81 19 111/80 100 Mechanical Ventilator 35 07/08/17 03:00 69 16 98/33 100 Mechanical Ventilator 35 07/08/17 03:00 98/33 07/08/17 02:45 65 16 103/31 100 Mechanical Ventilator 35 07/08/17 02:30 62 16 107/39 100 Mechanical Ventilator 35 07/08/17 02:15 61 17 109/35 100 Mechanical Ventilator 35 07/08/17 02:00 85/42 07/08/17 02:00 62 16 85/42 100 Mechanical Ventilator 35 07/08/17 01:45 69 16 81/37 100 Mechanical Ventilator 35 07/08/17 01:30 70 16 92/33 100 Mechanical Ventilator 35 07/08/17 01:19 65 16 35 07/08/17 01:15 79 17 104/84 100 Mechanical Ventilator 35 07/08/17 01:00 72 19 140/65 99 Mechanical Ventilator 35 07/08/17 01:00 115/47 07/08/17 00:45 66 19 115/47 100 Mechanical Ventilator 35 07/08/17 00:30 63 16 100/42 100 Mechanical Ventilator 35 07/08/17 00:15 61 17 83/51 100 Mechanical Ventilator 35 07/08/17 00:00 98.8 61 16 85/37 100 Mechanical Ventilator 35 07/08/17 00:00 69 07/08/17 00:00 85/37 07/07/17 23:45 61 17 106/38 100 Mechanical Ventilator 35 07/07/17 23:30 62 16 89/33 100 Mechanical Ventilator 35 07/07/17 23:15 63 16 91/67 100 Mechanical Ventilator 35 07/07/17 23:00 103/49 07/07/17 23:00 66 16 91/39 100 Mechanical Ventilator 35 07/07/17 22:48 67 16 35 07/07/17 22:45 62 16 108/27 100 Mechanical Ventilator 35 07/07/17 22:30 65 16 147/96 100 Mechanical Ventilator 35 07/07/17 22:15 60 16 83/30 100 Mechanical Ventilator 35 07/07/17 22:00 60 16 92/30 100 Mechanical Ventilator 35 07/07/17 22:00 92/30 07/07/17 21:45 59 16 76/55 100 Mechanical Ventilator 35 07/07/17 21:30 60 16 113/34 100 Mechanical Ventilator 35 07/07/17 21:15 59 16 103/32 100 Mechanical Ventilator 35 07/07/17 21:10 58 16 35 07/07/17 21:00 61 16 104/35 100 Mechanical Ventilator 35 07/07/17 21:00 104/35 07/07/17 20:45 60 16 105/41 100 Mechanical Ventilator 35 07/07/17 20:37 70/44 07/07/17 20:30 60 16 70/44 100 Mechanical Ventilator 35 07/07/17 20:15 60 16 89/33 100 Mechanical Ventilator 35 07/07/17 20:00 98.5 64 16 134/66 100 Mechanical Ventilator 35 07/07/17 20:00 59 07/07/17 19:45 58 16 105/44 100 Mechanical Ventilator 35 07/07/17 19:30 59 16 122/40 100 Mechanical Ventilator 35 07/07/17 19:15 60 16 56/28 100 Mechanical Ventilator 35 07/07/17 19:00 64 16 64/24 100 Mechanical Ventilator 35 07/07/17 18:54 71 16 35 07/07/17 18:27 99.3 62 17 94/41 100 Mechanical Ventilator 15.0 35 07/07/17 18:15 91/52 07/07/17 18:07 84/41 07/07/17 18:00 123/66 07/07/17 17:50 99.3 62 17 123/66 100 Mechanical Ventilator 15.0 35 07/07/17 17:22 65 18 35 07/07/17 17:20 93/42 07/07/17 16:49 35 07/07/17 16:45 99.3 70 16 100/45 100 Mechanical Ventilator 35 07/07/17 14:30 115 23 Mechanical Ventilator 15.0 35 07/07/17 14:30 115 21 35 07/07/17 14:25 97.9 24 61/38 100 Mechanical Ventilator 35 07/07/17 14:23 97.9 118 24 61/38 100 Mechanical Ventilator 35 Intake and Output 07/08/17 07/09/17 19:00 07:00 Output Total 150 ml Balance -150 ml Output Urine Total 150 ml # Bowel Movements 2 Laboratory Tests Test 07/07/17 15:05 07/07/17 15:35 07/08/17 04:35 07/08/17 07:42 White Blood Count 21.1 K/UL (4.8-10.8) H 16.6 K/UL (4.8-10.8) H Red Blood Count 2.65 M/UL (4.20-5.40) L 2.31 M/UL (4.20-5.40) L Hemoglobin 8.0 G/DL (12.0-16.0) L 7.1 G/DL (12.0-16.0) L Hematocrit 26.4 % (37.0-47.0) L 22.3 % (37.0-47.0) L Mean Corpuscular Volume 100 FL (80-99) H 96 FL (80-99) Mean Corpuscular Hemoglobin 30.2 PG (27.0-31.0) 30.8 PG (27.0-31.0) Mean Corpuscular Hemoglobin Concent 30.4 G/DL (32.0-36.0) L 32.0 G/DL (32.0-36.0) Red Cell Distribution Width 15.2 % (11.6-14.8) H 15.3 % (11.6-14.8) H Platelet Count 381 K/UL (150-450) 400 K/UL (150-450) Mean Platelet Volume 6.4 FL (6.5-10.1) L 7.0 FL (6.5-10.1) Neutrophils (%) (Auto) % (45.0-75.0) % (45.0-75.0) Lymphocytes (%) (Auto) % (20.0-45.0) % (20.0-45.0) Monocytes (%) (Auto) % (1.0-10.0) % (1.0-10.0) Eosinophils (%) (Auto) % (0.0-3.0) % (0.0-3.0) Basophils (%) (Auto) % (0.0-2.0) % (0.0-2.0) Differential Total Cells Counted 100 Neutrophils % (Manual) 77 % (45-75) H Pending Lymphocytes % (Manual) 8 % (20-45) L Pending Monocytes % (Manual) 5 % (1-10) Eosinophils % (Manual) 3 % (0-3) Basophils % (Manual) 0 % (0-2) Band Neutrophils 7 % (0-8) Nucleated Red Blood Cells 1 /100 WBC Platelet Estimate Adequate Pending Platelet Morphology Normal Pending Polychromasia 1+ Anisocytosis 1+ Macrocytosis 1+ Sodium Level 153 MMOL/L (136-145) H 157 MMOL/L (136-145) H Potassium Level 4.4 MMOL/L (3.5-5.1) 3.8 MMOL/L (3.5-5.1) Chloride Level 113 MMOL/L (98-107) H 119 MMOL/L (98-107) H Carbon Dioxide Level 30 MMOL/L (21-32) 30 MMOL/L (21-32) Anion Gap 10 mmol/L (5-15) 8 mmol/L (5-15) Blood Urea Nitrogen 33 mg/dL (7-18) H 29 mg/dL (7-18) H Creatinine 1.1 MG/DL (0.55-1.30) 1.0 MG/DL (0.55-1.30) Estimat Glomerular Filtration Rate mL/min (>60) mL/min (>60) Glucose Level 231 MG/DL (74-106) H 88 MG/DL (74-106) # Lactic Acid Level 2.00 mmol/L (0.66-2.22) 1.90 mmol/L (0.66-2.22) 1.60 mmol/L (0.66-2.22) Calcium Level 9.2 MG/DL (8.5-10.1) 8.6 MG/DL (8.5-10.1) Total Bilirubin 0.2 MG/DL (0.2-1.0) 0.3 MG/DL (0.2-1.0) Aspartate Amino Transf (AST/SGOT) 34 U/L (15-37) 20 U/L (15-37) Alanine Aminotransferase (ALT/SGPT) 22 U/L (12-78) 20 U/L (12-78) Alkaline Phosphatase 64 U/L (46-116) 57 U/L (46-116) Total Creatine Kinase 57 U/L (26-308) Creatine Kinase MB 0.6 NG/ML (0.0-3.6) Creatine Kinase MB Relative Index 1.0 Troponin I 0.062 ng/mL (0.000-0.056) Total Protein 9.2 G/DL (6.4-8.2) H 8.4 G/DL (6.4-8.2) H Albumin 2.0 G/DL (3.4-5.0) L 1.9 G/DL (3.4-5.0) L Globulin 7.2 g/dL 6.5 g/dL Albumin/Globulin Ratio 0.3 (1.0-2.7) L 0.3 (1.0-2.7) L Pending Urine Color Yellow Urine Appearance Slightly cloudy Urine pH 6.5 (4.5-8.0) Urine Specific [place] 1.010 (1.005-1.035) Urine Protein 2+ (NEGATIVE) H Urine Glucose (UA) Negative (NEGATIVE) Urine Ketones Negative (NEGATIVE) Urine Occult Blood 2+ (NEGATIVE) H Urine Nitrite Negative (NEGATIVE) Urine Bilirubin Negative (NEGATIVE) Urine Urobilinogen Normal MG/DL (0.0-1.0) Urine Leukocyte Esterase 2+ (NEGATIVE) H Urine RBC 10-15 /HPF (0 - 2) H Urine WBC 15-20 /HPF (0 - 2) H Urine Squamous Epithelial Cells Occasional /LPF Urine Amorphous Sediment Moderate /LPF (NONE) H Urine Bacteria Moderate /HPF (NONE) H Direct Bilirubin < 0.1 MG/DL (0.0-0.3) Total Protein (PEP) Pending Albumin (PEP) Pending Globulin (PEP) Pending Qwwno-[id number] Pending Oycyu-1-Djijyscoi Pending Beta Globulins Pending Beta Gamma Globulin Pending PEP Abnormal Protein Bands Pending Protein Electrophoresis Interpret Pending Random Amikacin Level Pending Test 07/08/17 08:08 Arterial Blood pH 7.400 (7.350-7.450) Arterial Blood Partial Pressure CO2 45.7 mmHg (35.0-45.0) H Arterial Blood Partial Pressure O2 98.8 mmHg (75.0-100.0) Arterial Blood HCO3 27.7 mmol/L (22.0-26.0) H Arterial Blood Oxygen Saturation 96.9 % (92.0-98.0) Arterial Blood Base Excess 2.6 Luís Test Positive Height (Feet): 5 Height (Inches): 4.00 Weight (Pounds): 149 Medications Current Medications Medications (Trade) Dose Ordered Sig/Torsten Route PRN Reason Start Time Stop Time Status Last Admin Dose Admin Acetaminophen (Tylenol) 650 mg Q4H PRN ORAL fever 07/07/17 15:30 08/06/17 15:29 07/08/17 08:35 Albuterol/ Ipratropium (Albuterol/ Ipratropium) 3 ml Q4H PRN HHN Shortness of Breath 07/07/17 15:30 07/12/17 15:29 Amikacin Protocol (Amikacin pharmacy to dose) 1 ea DAILY PRN MISC PER RX PROTOCOL 07/07/17 18:30 08/06/17 18:29 Amikacin Sulfate 800 mg/Sodium Chloride 113.2 ml @ 226.4 mls/ hr Q48H IV 07/07/17 20:00 07/14/17 19:59 07/07/17 20:35 Chlorhexidine Gluconate (Mariah-Hex 2%) 1 applic DAILY@2000 TOPIC 07/08/17 20:00 08/07/17 19:59 Heparin Sodium (Porcine) (Heparin 5000 units/ml) 5,000 units EVERY 12 HOURS SUBQ 07/07/17 21:00 08/06/17 20:59 07/08/17 08:36 Lorazepam (Ativan 2mg/ml 1ml) 2 mg Q2H PRN IV For Anxiety 07/07/17 15:30 07/14/17 15:29 Morphine Sulfate (Morphine Sulfate) 4 mg Q4H PRN IVP Severe Pain (Pain Scale 7-10) 07/07/17 15:30 07/14/17 15:29 Norepinephrine Bitartrate 4 mg/ Dextrose 254 ml @ 0 mls/hr Q24H IV 07/07/17 20:30 08/06/17 20:29 07/08/17 05:54 Ondansetron HCl (Zofran) 4 mg Q6H PRN IVP Nausea & Vomiting 07/07/17 15:30 08/06/17 15:29 Pantoprazole (Protonix) 40 mg DAILY IVP 07/08/17 09:00 08/07/17 08:59 07/08/17 08:35 Polyethylene Glycol (Miralax) 17 gm DAILYPRN PRN ORAL Constipation 07/07/17 15:30 08/06/17 15:29 Sodium Chloride 1,000 ml @ 100 mls/hr Q10H IVLG 07/07/17 19:00 08/06/17 18:59 07/08/17 05:01 Vancomycin HCl 1 gm/Dextrose 250 ml @ 166.636 mls/hr Q24H IVPB 07/08/17 16:00 07/13/17 15:59 Assessment/Plan Assessment/Plan Abx: IV unasyn x1 07/07 Ertapenem x1 07/07 Flagyl x1 07/07 IV Vanco 07/07- Amikacin 07/07- Assesment: Septic shock - 2ry to PNA vs UTI; r/o bacteremia -u.a wbc 15-20, nit neg, leuk +2; ucx p -Bcx p -CXR: Interstitial edema, vascular prominence, borderline cardiomegaly and hazy basilar opacities probably pleural effusions demonstrated. Fever/leukocytosis- 2ry to above- improving HTN seizure disorder chronic resp failure (vent and G-tube dependent) Plan: -Continue IV Vancomycin #2 -D/C Amikacin #2 and switch to Meropenem -f/u cx -Monitor CBC/BMP, temperatures -trach/peg care Thank you for this consultation. Will continue to follow along with you. Discussed with Yane Giron M.D. Jul 08, 2017 09:27
[2017-07-08 09:52] LABS: ANISOCYTOSIS 1+; BAND NEUTROPHILS % (MANUAL) 0 % (0-8); BASOPHILS % (MANUAL) 0 % (0-2); EOSINOPHILS % (MANUAL) 6 % (0-3); HYPOCHROMASIA 3+; LYMPHOCYTES % (MANUAL) 9 % (20-45); METAMYELOCYTES % 1 % (0-0); NEUTROPHILS % (MANUAL) 79 % (45-75); NUCLEATED RED BLOOD CELLS 1 /100 WBC; PLATELET ESTIMATE ADEQUATE; PLATELET MORPHOLOGY NORMAL; TOTAL CELLS COUNTED 100
--- NOTE | 2017-07-08 10:08 | Diagnostic Imaging Report ---
Indication: Shortness of breath Comparison: 07/07/2017 A single view chest radiograph was obtained. Findings: Interstitial edema, vascular prominence, borderline cardiomegaly and hazy basilar opacities probably pleural effusions demonstrated and unchanged. Tracheostomy and generalized osteopenia are noted. Right central venous catheter with distal tip in SVC is again noted. Impression: No significant change from prior exam one day earlier.
[2017-07-08] MEDS: Meropenem 2 GM in NS 110 ML IVPB SCH ×2 (11:06→22:51)
--- NOTE | 2017-07-08 14:15 | Internal Med Progress Note ---
Subjective Date of Service: Jul 08, 2017 Physician Name Moreau,Tomi Attending Physician Ho Mcghee MD Current Medications Medications (Trade) Dose Ordered Sig/Torsten Route PRN Reason Start Time Stop Time Status Last Admin Dose Admin Acetaminophen (Tylenol) 650 mg Q4H PRN ORAL fever 07/07/17 15:30 08/06/17 15:29 07/08/17 08:35 Albuterol/ Ipratropium (Albuterol/ Ipratropium) 3 ml Q4H PRN HHN Shortness of Breath 07/07/17 15:30 07/12/17 15:29 Chlorhexidine Gluconate (Mariah-Hex 2%) 1 applic DAILY@2000 TOPIC 07/08/17 20:00 08/07/17 19:59 Heparin Sodium (Porcine) (Heparin 5000 units/ml) 5,000 units EVERY 12 HOURS SUBQ 07/07/17 21:00 08/06/17 20:59 07/08/17 08:36 Lorazepam (Ativan 2mg/ml 1ml) 2 mg Q2H PRN IV For Anxiety 07/07/17 15:30 07/14/17 15:29 Meropenem 2 gm/ Sodium Chloride 110 ml @ 220 mls/hr Q12H IVPB 07/08/17 11:00 07/13/17 10:59 07/08/17 11:06 Morphine Sulfate (Morphine Sulfate) 4 mg Q4H PRN IVP Severe Pain (Pain Scale 7-10) 07/07/17 15:30 07/14/17 15:29 Norepinephrine Bitartrate 4 mg/ Dextrose 254 ml @ 0 mls/hr Q24H IV 07/07/17 20:30 08/06/17 20:29 07/08/17 05:54 Ondansetron HCl (Zofran) 4 mg Q6H PRN IVP Nausea & Vomiting 07/07/17 15:30 08/06/17 15:29 Pantoprazole (Protonix) 40 mg DAILY IVP 07/08/17 09:00 08/07/17 08:59 07/08/17 08:35 Polyethylene Glycol (Miralax) 17 gm DAILYPRN PRN ORAL Constipation 07/07/17 15:30 08/06/17 15:29 Sodium Chloride 1,000 ml @ 100 mls/hr Q10H IVLG 07/07/17 19:00 08/06/17 18:59 07/08/17 05:01 Vancomycin HCl (Vanco rx to dose) 1 ea DAILY PRN MISC PER RX PROTOCOL 07/08/17 10:45 08/07/17 10:44 Vancomycin HCl 1 gm/Dextrose 250 ml @ 166.636 mls/hr Q24H IVPB 07/08/17 16:00 07/13/17 15:59 Allergies: Coded Allergies: ASPIRIN (Verified Allergy, Unknown, 07/07/17) ROS Limited/Unobtainable: Yes Subjective 82 YO F admitted with hypotension and pneumonia. ICU. Intubated and sedated. Continues on levophed. Cover for Int Pernell-dr Mcghee. Objective Last Vital Signs Date Time Temp Pulse Resp B/P (MAP) Pulse Ox O2 Delivery O2 Flow Rate FiO2 07/08/17 13:20 64 16 35 07/08/17 13:00 114/83 100 Mechanical Ventilator 07/08/17 12:00 99.0 07/07/17 18:27 15.0 General Appearance: WD/WN, moderate distress, lethargic EENT: PERRL/EOMI, normal ENT inspection Neck: non-tender, normal alignment, supple, other - tracheostomy Cardiovascular: normal peripheral pulses, normal rate, regular rhythm, no gallop/murmur, no JVD Respiratory/Chest: chest wall non-tender, crackles/rales, rhonchi - bilaterally , expiratory wheezing Abdomen: normal bowel sounds, non tender, soft, no organomegaly, no mass Extremities: non-tender 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 Skin: normal pigmentation, warm/dry Laboratory Tests Test 07/07/17 15:05 07/07/17 15:35 07/08/17 04:35 07/08/17 07:42 White Blood Count 21.1 K/UL (4.8-10.8) H 16.6 K/UL (4.8-10.8) H Red Blood Count 2.65 M/UL (4.20-5.40) L 2.31 M/UL (4.20-5.40) L Hemoglobin 8.0 G/DL (12.0-16.0) L 7.1 G/DL (12.0-16.0) L Hematocrit 26.4 % (37.0-47.0) L 22.3 % (37.0-47.0) L Mean Corpuscular Volume 100 FL (80-99) H 96 FL (80-99) Mean Corpuscular Hemoglobin 30.2 PG (27.0-31.0) 30.8 PG (27.0-31.0) Mean Corpuscular Hemoglobin Concent 30.4 G/DL (32.0-36.0) L 32.0 G/DL (32.0-36.0) Red Cell Distribution Width 15.2 % (11.6-14.8) H 15.3 % (11.6-14.8) H Platelet Count 381 K/UL (150-450) 400 K/UL (150-450) Mean Platelet Volume 6.4 FL (6.5-10.1) L 7.0 FL (6.5-10.1) Neutrophils (%) (Auto) % (45.0-75.0) % (45.0-75.0) Lymphocytes (%) (Auto) % (20.0-45.0) % (20.0-45.0) Monocytes (%) (Auto) % (1.0-10.0) % (1.0-10.0) Eosinophils (%) (Auto) % (0.0-3.0) % (0.0-3.0) Basophils (%) (Auto) % (0.0-2.0) % (0.0-2.0) Differential Total Cells Counted 100 100 Neutrophils % (Manual) 77 % (45-75) H 79 % (45-75) H Lymphocytes % (Manual) 8 % (20-45) L 9 % (20-45) L Monocytes % (Manual) 5 % (1-10) 5 % (1-10) Eosinophils % (Manual) 3 % (0-3) 6 % (0-3) H Basophils % (Manual) 0 % (0-2) 0 % (0-2) Band Neutrophils 7 % (0-8) 0 % (0-8) Nucleated Red Blood Cells 1 /100 WBC 1 /100 WBC Platelet Estimate Adequate Adequate Platelet Morphology Normal Normal Polychromasia 1+ Anisocytosis 1+ 1+ Macrocytosis 1+ Sodium Level 153 MMOL/L (136-145) H 157 MMOL/L (136-145) H Potassium Level 4.4 MMOL/L (3.5-5.1) 3.8 MMOL/L (3.5-5.1) Chloride Level 113 MMOL/L (98-107) H 119 MMOL/L (98-107) H Carbon Dioxide Level 30 MMOL/L (21-32) 30 MMOL/L (21-32) Anion Gap 10 mmol/L (5-15) 8 mmol/L (5-15) Blood Urea Nitrogen 33 mg/dL (7-18) H 29 mg/dL (7-18) H Creatinine 1.1 MG/DL (0.55-1.30) 1.0 MG/DL (0.55-1.30) Estimat Glomerular Filtration Rate mL/min (>60) mL/min (>60) Glucose Level 231 MG/DL (74-106) H 88 MG/DL (74-106) # Lactic Acid Level 2.00 mmol/L (0.66-2.22) 1.90 mmol/L (0.66-2.22) 1.60 mmol/L (0.66-2.22) Calcium Level 9.2 MG/DL (8.5-10.1) 8.6 MG/DL (8.5-10.1) Total Bilirubin 0.2 MG/DL (0.2-1.0) 0.3 MG/DL (0.2-1.0) Aspartate Amino Transf (AST/SGOT) 34 U/L (15-37) 20 U/L (15-37) Alanine Aminotransferase (ALT/SGPT) 22 U/L (12-78) 20 U/L (12-78) Alkaline Phosphatase 64 U/L (46-116) 57 U/L (46-116) Total Creatine Kinase 57 U/L (26-308) Creatine Kinase MB 0.6 NG/ML (0.0-3.6) Creatine Kinase MB Relative Index 1.0 Troponin I 0.062 ng/mL (0.000-0.056) Total Protein 9.2 G/DL (6.4-8.2) H 8.4 G/DL (6.4-8.2) H Albumin 2.0 G/DL (3.4-5.0) L 1.9 G/DL (3.4-5.0) L Globulin 7.2 g/dL 6.5 g/dL Albumin/Globulin Ratio 0.3 (1.0-2.7) L 0.3 (1.0-2.7) L Pending Urine Color Yellow Urine Appearance Slightly cloudy Urine pH 6.5 (4.5-8.0) Urine Specific [place] 1.010 (1.005-1.035) Urine Protein 2+ (NEGATIVE) H Urine Glucose (UA) Negative (NEGATIVE) Urine Ketones Negative (NEGATIVE) Urine Occult Blood 2+ (NEGATIVE) H Urine Nitrite Negative (NEGATIVE) Urine Bilirubin Negative (NEGATIVE) Urine Urobilinogen Normal MG/DL (0.0-1.0) Urine Leukocyte Esterase 2+ (NEGATIVE) H Urine RBC 10-15 /HPF (0 - 2) H Urine WBC 15-20 /HPF (0 - 2) H Urine Squamous Epithelial Cells Occasional /LPF Urine Amorphous Sediment Moderate /LPF (NONE) H Urine Bacteria Moderate /HPF (NONE) H Metamyelocytes % 1 % (0-0) H Hypochromasia 3+ Direct Bilirubin < 0.1 MG/DL (0.0-0.3) Total Protein (PEP) Pending Albumin (PEP) Pending Globulin (PEP) Pending Agfnk-[id number] Pending Psqqn-[id number] Pending Beta Globulins Pending Beta Gamma Globulin Pending PEP Abnormal Protein Bands Pending Protein Electrophoresis Interpret Pending Random Amikacin Level Pending Test 07/08/17 08:08 Arterial Blood pH 7.400 (7.350-7.450) Arterial Blood Partial Pressure CO2 45.7 mmHg (35.0-45.0) H Arterial Blood Partial Pressure O2 98.8 mmHg (75.0-100.0) Arterial Blood HCO3 27.7 mmol/L (22.0-26.0) H Arterial Blood Oxygen Saturation 96.9 % (92.0-98.0) Arterial Blood Base Excess 2.6 Luís Test Positive Microbiology Date/Time Source Procedure Growth Status 07/07/17 15:35 Urine,Clean Catch Urine Culture - Preliminary NO GROWTH Resulted Intake and Output 07/08/17 07/09/17 19:00 07:00 Intake Total 540.97 ml Output Total 370 ml Balance 170.97 ml Intake IV Total 540.97 ml Output Urine Total 370 ml # Bowel Movements 2 Assessment/Plan Problem List: (1) Fever (2) Hypotension Assessment & Plan: Due to Sepsis-Cont levophed and antibiotics. (3) Sepsis Assessment & Plan: Await cultures. Cont vanco and meropenem per ID (4) Respiratory failure Assessment & Plan: Due to pneumonia. Cont mech vent-see pulmonary note. (5) Tracheostomy care (6) HTN (hypertension) Assessment & Plan: Current hypotensive. (7) Seizure disorder (8) Dysphagia Assessment & Plan: G-tube feeds per GI (9) Pneumonia (10) Septic shock Status: not improved TOMI MOREAU Jul 08, 2017 14:15
[2017-07-08] MEDS ORDERED: Tubing IV Secondary IV ONE (16:11)
[2017-07-08] MEDS: Dyna-Hex 2% Top Sol 2oz TOPIC SCH (19:44)
--- NOTE | 2017-07-08 20:30 | History and Physical Report ---
DATE OF ADMISSION: 07/07/2017 CHIEF COMPLAINT: Altered mental status, weakness, and fever. HISTORY OF PRESENT ILLNESS: This is an 82-year-old, female with past medical history significant for chronic vent-dependent respiratory failure, history of seizure disorder, who is residing at [facility], presented to emergency room from nursing facility after was found with low blood pressure as well as fever. The patient was already started on antibiotic Zosyn due to the pneumonia and her status did not improve and then subsequently, the patient was transferred to the hospital. Shortly after initial evaluation in the emergency room, the patient was noted to be hypotensive. A central line was placed in the ER, aggressive IV hydration and fluid resuscitation was started and the patient was admitted to the hospital with septic shock as well as underlying pneumonia. PAST MEDICAL HISTORY AND PAST SURGICAL HISTORY: Significant for chronic respiratory failure, status post tracheostomy; seizure disorder;? hypertension. MEDICATIONS: Medications at nursing facility are significant for Tylenol, albuterol, acetaminophen, vitamin C, bisacodyl, ipratropium bromide nebulizer, Xalatan eye drops, lorazepam p.r.n. for anxiety, milk of magnesia p.r.n. for constipation, Namenda, trazodone, and mevalonic acid. ALLERGIES: Aspirin. SOCIAL HISTORY: senior living resident. No smoking, alcohol, or drugs at this time. FAMILY HISTORY: Noncontributory. REVIEW OF SYSTEMS: Very limited secondary to the patient's status. The patient is nonverbal on a vent and cannot follow commands. Unable to open her eyes. PHYSICAL EXAMINATION: VITAL SIGNS: On admission, temperature 97.9, pulse 118, respirations 24, blood pressure 61/38. GENERAL: The patient is nonresponsive, cannot follow commands, unable to open her eyes. HEAD AND NECK: Pupils are equal, sluggish, and anicteric. NECK: The tracheostomy site is intact. LUNGS: Bilateral air entry. Crackles at the bases. HEART: S1 and S2. Tachycardic. No murmur or gallop. ABDOMEN: Soft, nondistended, and nontender. PEG site is clean. EXTREMITIES: No cyanosis, clubbing, or edema. Muscle atrophy was noted. NEUROLOGIC: Unable to obtain secondary to the patient's status. LABORATORY AND DIAGNOSTIC DATA: Laboratory on admission is significant for chest x-ray, CHF, interstitial edema, suspected bilateral pleural effusion. Repeat chest x-ray after subclavian line was in the position, no pneumothorax. WBC of 21, hemoglobin 8.0, hematocrit 26, and platelets are 381. ABG, pH of 7.4, pCO2 of 45, pO2 of 98, and saturating 96%. Sodium 153, potassium 3.4, chloride 113, bicarbonate is 30, BUN 33, creatinine 1.1, and glucose is 231. First troponin 0.02. Total protein is 9.2. Urinalysis is +2 leukocyte esterase, negative nitrite, and 2+ occult blood. ASSESSMENT: 1. Septic shock. 2. Anemia. 3. Pneumonia. 4. Acute on chronic respiratory failure, ventilator dependent, status post tracheostomy. 5. Dysphagia status post percutaneous endoscopic gastrostomy. 6. Acute kidney injury, most likely secondary to hypokalemia and dehydration. 7. Seizure disorder. PLAN: Admit the patient to ICU. We will follow up with broad-spectrum antibiotics with Flagyl, vancomycin, ertapenem, and amikacin. Monitor cultures. Follow up with Levophed pressor for blood pressure control. Monitor laboratory closely as well as culture. Discussed with Dr. Yu from Pulmonary and Critical Care. Aggressive IV hydration. Code status is Full Code at this time. DVT prophylaxis with heparin subcutaneous. Consider to get dual nebulizer treatment. Ultrasound duplex of lower extremity. Ho Mcghee M.D. DR: NEERAJ JOB#: [id number] CC:
[2017-07-09] VITALS (59 sets, daily range): BP systolic 76–156; BP diastolic 29–110
[2017-07-09 06:24] LABS: MEAN CORPUSCULAR HEMOGLOBIN 29.6 PG (27.0-31.0); MEAN CORPUSCULAR HGB CONC 30.9 G/DL (32.0-36.0); MEAN CORPUSCULAR VOLUME 96 FL (80-99); MEAN PLATELET VOLUME 7.3 FL (6.5-10.1); PLATELET COUNT 352 K/UL (150-450); RED BLOOD COUNT 2.23 M/UL (4.20-5.40); RED CELL DISTRIBUTION WIDTH 14.7 % (11.6-14.8); WHITE BLOOD COUNT 11.6 K/UL (4.8-10.8)
[2017-07-09 06:56] LABS: ALANINE AMINOTRANSFERASE 16 U/L (12-78); ALBUMIN/GLOBULIN RATIO 0.3 (1.0-2.7); ANION GAP 9 mmol/L (5-15); ASPARTATE AMINO TRANSFERASE 20 U/L (15-37); CALCIUM 8.9 MG/DL (8.5-10.1); CARBON DIOXIDE 27 MMOL/L (21-32); CHLORIDE 119 MMOL/L (98-107); CREATININE 0.9 MG/DL (0.55-1.30); MAGNESIUM 2.2 MG/DL (1.8-2.4); PHOSPHORUS 1.6 MG/DL (2.5-4.9); POTASSIUM 3.4 MMOL/L (3.5-5.1); SODIUM 155 MMOL/L (136-145); TOTAL PROTEIN 8.2 G/DL (6.4-8.2)
[2017-07-09] MEDS: Heparin 5000 units/ml inj SUBQ SCH ×2 (07:15→21:14)
--- NOTE | 2017-07-09 08:47 | General Progress Note ---
Progress Note Progress Note Pt needs to receive blood transfusion for his severe anemia. We are unable to get hold of the responsible parties. Pt can't give consent himself. COBY LEBLANC Jul 09, 2017 08:47
--- NOTE | 2017-07-09 08:55 | Pulmonolgy Critical Care Note ---
Critical Care - Asmt/Plan Problems: (1) Septic shock (2) Acute and chronic respiratory failure (3) Anemia (4) Pneumonia Respiratory: monitor respiratory rate, adjust FIO2, CXR Cardiac: continue pressors, continue to monitor HR/BP Renal: F/U I&O, keep IV fluid Infectious Disease: check cultures Gastrointestinal: continue feedings/current rate Endocrine: monitor blood sugar Hematologic: monitor H/H Neurologic: PRN Morphine Prophylaxis: Protonix, Heparin Time Spent (Minutes): 40 Notes Reviewed: industrial staff nurse, cardio, 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, consultants, telephonic nurse case managermanager progressive care - Objective Last 24 Hour Vital Signs Date Time Temp Pulse Resp B/P (MAP) Pulse Ox O2 Delivery O2 Flow Rate FiO2 07/09/17 08:40 59 18 35 07/09/17 08:34 99.9 07/09/17 08:00 60 24 91/40 100 Mechanical Ventilator 35 07/09/17 08:00 60 07/09/17 07:30 79 21 91/40 100 Mechanical Ventilator 35 07/09/17 07:07 66 21 35 07/09/17 07:00 66 17 112/48 100 Mechanical Ventilator 35 07/09/17 06:30 62 17 90/69 100 Mechanical Ventilator 35 07/09/17 06:15 63 17 90/69 100 Mechanical Ventilator 35 07/09/17 06:00 62 17 110/47 100 Mechanical Ventilator 35 07/09/17 05:45 71 17 113/53 100 Mechanical Ventilator 35 07/09/17 05:30 59 17 133/102 100 Mechanical Ventilator 35 07/09/17 05:19 61 21 35 07/09/17 05:15 62 17 133/102 100 Mechanical Ventilator 35 07/09/17 05:00 61 16 109/47 100 Mechanical Ventilator 35 07/09/17 04:45 61 16 91/72 100 Mechanical Ventilator 35 07/09/17 04:30 60 15 116/47 100 Mechanical Ventilator 35 07/09/17 04:15 98.0 63 15 98/49 100 Mechanical Ventilator 35 07/09/17 04:00 64 07/09/17 04:00 62 15 102/32 100 Mechanical Ventilator 35 07/09/17 03:45 61 15 115/44 100 Mechanical Ventilator 35 07/09/17 03:30 60 15 100/46 100 Mechanical Ventilator 35 07/09/17 03:25 62 21 35 07/09/17 03:15 61 15 115/61 100 Mechanical Ventilator 35 07/09/17 03:00 62 17 102/39 100 Mechanical Ventilator 35 07/09/17 02:45 61 18 119/64 100 Mechanical Ventilator 35 07/09/17 02:30 60 17 119/49 100 Mechanical Ventilator 35 07/09/17 02:15 58 18 119/49 100 Mechanical Ventilator 35 07/09/17 02:12 89/30 07/09/17 02:00 63 17 103/43 100 Mechanical Ventilator 35 07/09/17 01:45 60 15 89/30 100 Mechanical Ventilator 35 07/09/17 01:30 59 15 117/29 100 Mechanical Ventilator 35 07/09/17 01:15 59 15 116/46 100 Mechanical Ventilator 35 07/09/17 01:14 59 21 35 07/09/17 01:00 59 15 116/46 100 Mechanical Ventilator 35 07/09/17 00:45 57 15 96/60 100 Mechanical Ventilator 35 07/09/17 00:30 58 15 120/38 100 Mechanical Ventilator 35 07/09/17 00:00 99.0 54 16 110/67 100 Mechanical Ventilator 35 07/09/17 00:00 57 07/08/17 23:30 53 16 113/44 100 Mechanical Ventilator 35 07/08/17 23:15 54 16 35 07/08/17 23:00 54 16 134/60 100 Mechanical Ventilator 35 07/08/17 22:30 49 16 89/43 100 Mechanical Ventilator 35 07/08/17 22:00 54 15 100/35 100 Mechanical Ventilator 35 07/08/17 21:30 51 16 120/75 100 Mechanical Ventilator 35 07/08/17 21:08 51 16 35 07/08/17 21:00 54 16 100/64 100 Mechanical Ventilator 35 07/08/17 20:30 99.0 52 16 114/50 100 Mechanical Ventilator 35 07/08/17 20:00 51 07/08/17 20:00 53 16 113/45 100 Mechanical Ventilator 35 07/08/17 19:45 52 16 108/51 100 Mechanical Ventilator 35 07/08/17 19:30 53 16 113/45 100 Mechanical Ventilator 35 07/08/17 19:15 56 16 106/47 100 Mechanical Ventilator 35 07/08/17 19:08 56 16 35 07/08/17 19:00 53 16 104/48 100 Mechanical Ventilator 35 07/08/17 18:30 59 16 99/48 100 Mechanical Ventilator 35 07/08/17 18:00 60 16 127/44 100 Mechanical Ventilator 35 07/08/17 17:30 72 16 95/54 100 Mechanical Ventilator 35 07/08/17 17:10 67 22 35 07/08/17 17:00 68 16 113/61 100 Mechanical Ventilator 35 07/08/17 16:30 100.1 69 18 111/45 100 Mechanical Ventilator 35 07/08/17 16:00 71 07/08/17 16:00 71 17 100/56 100 Mechanical Ventilator 35 07/08/17 15:56 97/55 07/08/17 15:30 65 16 97/55 99 Mechanical Ventilator 35 07/08/17 15:00 65 16 123/89 100 Mechanical Ventilator 35 07/08/17 14:46 73 16 35 07/08/17 14:30 62 16 122/57 100 Mechanical Ventilator 35 07/08/17 14:00 68 16 93/51 100 Mechanical Ventilator 35 07/08/17 13:30 63 16 135/90 100 Mechanical Ventilator 35 07/08/17 13:20 64 16 35 07/08/17 13:00 67 16 114/83 100 Mechanical Ventilator 35 07/08/17 12:30 71 16 106/48 100 Mechanical Ventilator 35 07/08/17 12:00 99.0 83 16 112/45 99 Mechanical Ventilator 35 07/08/17 12:00 68 07/08/17 11:30 78 16 128/76 100 Mechanical Ventilator 35 07/08/17 11:10 71 16 35 07/08/17 11:00 63 16 93/46 100 Mechanical Ventilator 35 07/08/17 10:30 66 16 108/46 100 Mechanical Ventilator 35 07/08/17 10:00 78 16 105/60 100 Mechanical Ventilator 35 07/08/17 09:30 68 16 93/38 100 Mechanical Ventilator 35 07/08/17 09:17 66 16 35 07/08/17 09:00 66 16 110/35 100 Mechanical Ventilator 35 Status: awake HEENT: atraumatic Neck: full ROM Heart: HR/BP stable Abdomen: soft, non-tender, feeding tube Micro: Microbiology Date/Time Source Procedure Growth Status 07/07/17 15:05 Blood Blood Culture - Preliminary NO GROWTH AFTER 24 HOURS Resulted 07/07/17 14:50 Blood Blood Culture - Preliminary NO GROWTH AFTER 24 HOURS Resulted 07/08/17 01:30 Sputum Gram Stain - Final Resulted 07/08/17 01:30 Sputum Culture - Preliminary Gram Negative Tom Resulted 07/07/17 15:35 Nasal Nares MRSA Culture - Final Staphylococcus Aureus - Mrsa Complete 07/07/17 15:35 Urine,Clean Catch Urine Culture - Preliminary NO GROWTH Resulted 07/07/17 15:35 Rectum VRE Culture - Final Enterococcus Faecalis - Vre Complete Critical Care - Subjective ROS Limited/Unobtainable: Yes ICU Day: 3 Condition: critical EKG Rhythm: Sinus Rhythm FI02: 35 Vent Support Breath Rate: 16 Vent Support Mode: AC Vent Tidal Volume: 600 Sputum Amount: Moderate PEEP: 5.0 PIP: 56 Fluids: NS 100 Drips: levophed Tube Feeding Amount: 20 I&O: Intake and Output 07/09/17 07/10/17 19:00 07:00 Intake Total 177.62 ml Output Total 75 ml Balance 102.62 ml Intake Free Water 100 ml IV Total 57.62 ml Tube Feeding 20 ml Output Urine Total 75 ml CXR: bilateral infiltrate Labs: Laboratory Tests Test 07/09/17 05:15 White Blood Count 11.6 K/UL (4.8-10.8) H Red Blood Count 2.23 M/UL (4.20-5.40) L Hemoglobin 6.6 G/DL (12.0-16.0) *L Hematocrit 21.3 % (37.0-47.0) L Mean Corpuscular Volume 96 FL (80-99) Mean Corpuscular Hemoglobin 29.6 PG (27.0-31.0) Mean Corpuscular Hemoglobin Concent 30.9 G/DL (32.0-36.0) L Red Cell Distribution Width 14.7 % (11.6-14.8) Platelet Count 352 K/UL (150-450) Mean Platelet Volume 7.3 FL (6.5-10.1) Neutrophils (%) (Auto) % (45.0-75.0) Lymphocytes (%) (Auto) % (20.0-45.0) Monocytes (%) (Auto) % (1.0-10.0) Eosinophils (%) (Auto) % (0.0-3.0) Basophils (%) (Auto) % (0.0-2.0) Neutrophils % (Manual) Pending Lymphocytes % (Manual) Pending Platelet Estimate Pending Platelet Morphology Pending Sodium Level 155 MMOL/L (136-145) H Potassium Level 3.4 MMOL/L (3.5-5.1) L Chloride Level 119 MMOL/L (98-107) H Carbon Dioxide Level 27 MMOL/L (21-32) Anion Gap 9 mmol/L (5-15) Blood Urea Nitrogen 17 mg/dL (7-18) Creatinine 0.9 MG/DL (0.55-1.30) Estimat Glomerular Filtration Rate mL/min (>60) Glucose Level 94 MG/DL (74-106) Calcium Level 8.9 MG/DL (8.5-10.1) Phosphorus Level 1.6 MG/DL (2.5-4.9) L Magnesium Level 2.2 MG/DL (1.8-2.4) Total Bilirubin 0.3 MG/DL (0.2-1.0) Aspartate Amino Transf (AST/SGOT) 20 U/L (15-37) Alanine Aminotransferase (ALT/SGPT) 16 U/L (12-78) Alkaline Phosphatase 60 U/L (46-116) Total Protein 8.2 G/DL (6.4-8.2) Albumin 1.9 G/DL (3.4-5.0) L Globulin 6.3 g/dL Albumin/Globulin Ratio 0.3 (1.0-2.7) L COBY LEBLANC Jul 09, 2017 08:55
[2017-07-09 08:59] LABS: ABG ALLEN TEST POSITIVE; ABG BASE EXCESS 0.5; ABG PCO2 34.7 mmHg (35.0-45.0)
[2017-07-09] MEDS: Pantoprazole Inj IVP SCH (08:59)
[2017-07-09 09:25] LABS: BAND NEUTROPHILS % (MANUAL) 1 % (0-8); BASOPHILS % (MANUAL) 0 % (0-2); EOSINOPHILS % (MANUAL) 6 % (0-3); HYPOCHROMASIA 4+; LYMPHOCYTES % (MANUAL) 17 % (20-45); NEUTROPHILS % (MANUAL) 72 % (45-75); PLATELET ESTIMATE ADEQUATE; TOTAL CELLS COUNTED 100
[2017-07-09 09:27] LABS: PLATELET MORPHOLOGY NORMAL
[2017-07-09 09:29] LABS: ANISOCYTOSIS 1+
[2017-07-09] MEDS ORDERED: Potassium Phosphate 30 MM in NS 275 ML IV ONE (10:00)
--- NOTE | 2017-07-09 10:02 | Infectious Diseases Prog Note ---
Assessment/Plan Assessment/Plan A; Septic shock Pneumonia VDRF Anemia MRSA colonization P: continue Meropenem & Vancomycin Will f/u cultures Subjective ROS Limited/Unobtainable: Yes Cardiovascular: Reports: other - on levophed 4 microgram/kg/min Allergies: Coded Allergies: ASPIRIN (Verified Allergy, Unknown, 07/07/17) Objective Vital Signs Last 24 Hour Vital Signs Date Time Temp Pulse Resp B/P (MAP) Pulse Ox O2 Delivery O2 Flow Rate FiO2 07/09/17 09:30 68 17 102/83 100 Mechanical Ventilator 35 07/09/17 09:00 69 16 102/83 100 Mechanical Ventilator 35 07/09/17 08:40 59 18 35 07/09/17 08:34 99.9 07/09/17 08:30 67 24 107/58 100 Mechanical Ventilator 35 07/09/17 08:00 60 24 91/40 100 Mechanical Ventilator 35 07/09/17 08:00 60 07/09/17 07:30 79 21 91/40 100 Mechanical Ventilator 35 07/09/17 07:07 66 21 35 07/09/17 07:00 66 17 112/48 100 Mechanical Ventilator 35 07/09/17 06:30 62 17 90/69 100 Mechanical Ventilator 35 07/09/17 06:15 63 17 90/69 100 Mechanical Ventilator 35 07/09/17 06:00 62 17 110/47 100 Mechanical Ventilator 35 07/09/17 05:45 71 17 113/53 100 Mechanical Ventilator 35 07/09/17 05:30 59 17 133/102 100 Mechanical Ventilator 35 07/09/17 05:19 61 21 35 07/09/17 05:15 62 17 133/102 100 Mechanical Ventilator 35 07/09/17 05:00 61 16 109/47 100 Mechanical Ventilator 35 07/09/17 04:45 61 16 91/72 100 Mechanical Ventilator 35 07/09/17 04:30 60 15 116/47 100 Mechanical Ventilator 35 07/09/17 04:15 98.0 63 15 98/49 100 Mechanical Ventilator 35 07/09/17 04:00 64 07/09/17 04:00 62 15 102/32 100 Mechanical Ventilator 35 07/09/17 03:45 61 15 115/44 100 Mechanical Ventilator 35 07/09/17 03:30 60 15 100/46 100 Mechanical Ventilator 35 07/09/17 03:25 62 21 35 07/09/17 03:15 61 15 115/61 100 Mechanical Ventilator 35 07/09/17 03:00 62 17 102/39 100 Mechanical Ventilator 35 07/09/17 02:45 61 18 119/64 100 Mechanical Ventilator 35 07/09/17 02:30 60 17 119/49 100 Mechanical Ventilator 35 07/09/17 02:15 58 18 119/49 100 Mechanical Ventilator 35 07/09/17 02:12 89/30 07/09/17 02:00 63 17 103/43 100 Mechanical Ventilator 35 07/09/17 01:45 60 15 89/30 100 Mechanical Ventilator 35 07/09/17 01:30 59 15 117/29 100 Mechanical Ventilator 35 07/09/17 01:15 59 15 116/46 100 Mechanical Ventilator 35 07/09/17 01:14 59 21 35 07/09/17 01:00 59 15 116/46 100 Mechanical Ventilator 35 07/09/17 00:45 57 15 96/60 100 Mechanical Ventilator 35 07/09/17 00:30 58 15 120/38 100 Mechanical Ventilator 35 07/09/17 00:00 99.0 54 16 110/67 100 Mechanical Ventilator 35 07/09/17 00:00 57 07/08/17 23:30 53 16 113/44 100 Mechanical Ventilator 35 07/08/17 23:15 54 16 35 07/08/17 23:00 54 16 134/60 100 Mechanical Ventilator 35 07/08/17 22:30 49 16 89/43 100 Mechanical Ventilator 35 07/08/17 22:00 54 15 100/35 100 Mechanical Ventilator 35 07/08/17 21:30 51 16 120/75 100 Mechanical Ventilator 35 07/08/17 21:08 51 16 35 07/08/17 21:00 54 16 100/64 100 Mechanical Ventilator 35 07/08/17 20:30 99.0 52 16 114/50 100 Mechanical Ventilator 35 07/08/17 20:00 51 07/08/17 20:00 53 16 113/45 100 Mechanical Ventilator 35 07/08/17 19:45 52 16 108/51 100 Mechanical Ventilator 35 07/08/17 19:30 53 16 113/45 100 Mechanical Ventilator 35 07/08/17 19:15 56 16 106/47 100 Mechanical Ventilator 35 07/08/17 19:08 56 16 35 07/08/17 19:00 53 16 104/48 100 Mechanical Ventilator 35 07/08/17 18:30 59 16 99/48 100 Mechanical Ventilator 35 07/08/17 18:00 60 16 127/44 100 Mechanical Ventilator 35 07/08/17 17:30 72 16 95/54 100 Mechanical Ventilator 35 07/08/17 17:10 67 22 35 07/08/17 17:00 68 16 113/61 100 Mechanical Ventilator 35 07/08/17 16:30 100.1 69 18 111/45 100 Mechanical Ventilator 35 07/08/17 16:00 71 07/08/17 16:00 71 17 100/56 100 Mechanical Ventilator 35 07/08/17 15:56 97/55 07/08/17 15:30 65 16 97/55 99 Mechanical Ventilator 35 07/08/17 15:00 65 16 123/89 100 Mechanical Ventilator 35 07/08/17 14:46 73 16 35 07/08/17 14:30 62 16 122/57 100 Mechanical Ventilator 35 07/08/17 14:00 68 16 93/51 100 Mechanical Ventilator 35 07/08/17 13:30 63 16 135/90 100 Mechanical Ventilator 35 07/08/17 13:20 64 16 35 07/08/17 13:00 67 16 114/83 100 Mechanical Ventilator 35 07/08/17 12:30 71 16 106/48 100 Mechanical Ventilator 35 07/08/17 12:00 99.0 83 16 112/45 99 Mechanical Ventilator 35 07/08/17 12:00 68 07/08/17 11:30 78 16 128/76 100 Mechanical Ventilator 35 07/08/17 11:10 71 16 35 07/08/17 11:00 63 16 93/46 100 Mechanical Ventilator 35 07/08/17 10:30 66 16 108/46 100 Mechanical Ventilator 35 07/08/17 10:00 78 16 105/60 100 Mechanical Ventilator 35 Height (Feet): 5 Height (Inches): 4.00 Weight (Pounds): 149 HEENT: status post trach Respiratory/Chest: rhonchi - bilaterally, other - on ventilaor Cardiovascular: tachycardia, other - R subclavian line Extremities: no edema Neurologic/Psychiatric: other - opens eyes Musculoskeletal: atrophy Microbiology Date/Time Source Procedure Growth Status 07/07/17 15:05 Blood Blood Culture - Preliminary NO GROWTH AFTER 24 HOURS Resulted 07/07/17 14:50 Blood Blood Culture - Preliminary NO GROWTH AFTER 24 HOURS Resulted 07/08/17 01:30 Sputum Gram Stain - Final Resulted 07/08/17 01:30 Sputum Culture - Preliminary Gram Negative Tom Resulted 07/07/17 15:35 Nasal Nares MRSA Culture - Final Staphylococcus Aureus - Mrsa Complete 07/07/17 15:35 Urine,Clean Catch Urine Culture - Preliminary NO GROWTH Resulted 07/07/17 15:35 Rectum VRE Culture - Final Enterococcus Faecalis - Vre Complete Laboratory Tests Test 07/09/17 05:15 07/09/17 08:50 White Blood Count 11.6 K/UL (4.8-10.8) H Red Blood Count 2.23 M/UL (4.20-5.40) L Hemoglobin 6.6 G/DL (12.0-16.0) *L Hematocrit 21.3 % (37.0-47.0) L Mean Corpuscular Volume 96 FL (80-99) Mean Corpuscular Hemoglobin 29.6 PG (27.0-31.0) Mean Corpuscular Hemoglobin Concent 30.9 G/DL (32.0-36.0) L Red Cell Distribution Width 14.7 % (11.6-14.8) Platelet Count 352 K/UL (150-450) Mean Platelet Volume 7.3 FL (6.5-10.1) Neutrophils (%) (Auto) % (45.0-75.0) Lymphocytes (%) (Auto) % (20.0-45.0) Monocytes (%) (Auto) % (1.0-10.0) Eosinophils (%) (Auto) % (0.0-3.0) Basophils (%) (Auto) % (0.0-2.0) Differential Total Cells Counted 100 Neutrophils % (Manual) 72 % (45-75) Lymphocytes % (Manual) 17 % (20-45) L Monocytes % (Manual) 4 % (1-10) Eosinophils % (Manual) 6 % (0-3) H Basophils % (Manual) 0 % (0-2) Band Neutrophils 1 % (0-8) Platelet Estimate Adequate Platelet Morphology Normal Hypochromasia 4+ Anisocytosis 1+ Sodium Level 155 MMOL/L (136-145) H Potassium Level 3.4 MMOL/L (3.5-5.1) L Chloride Level 119 MMOL/L (98-107) H Carbon Dioxide Level 27 MMOL/L (21-32) Anion Gap 9 mmol/L (5-15) Blood Urea Nitrogen 17 mg/dL (7-18) Creatinine 0.9 MG/DL (0.55-1.30) Estimat Glomerular Filtration Rate mL/min (>60) Glucose Level 94 MG/DL (74-106) Calcium Level 8.9 MG/DL (8.5-10.1) Phosphorus Level 1.6 MG/DL (2.5-4.9) L Magnesium Level 2.2 MG/DL (1.8-2.4) Total Bilirubin 0.3 MG/DL (0.2-1.0) Aspartate Amino Transf (AST/SGOT) 20 U/L (15-37) Alanine Aminotransferase (ALT/SGPT) 16 U/L (12-78) Alkaline Phosphatase 60 U/L (46-116) Total Protein 8.2 G/DL (6.4-8.2) Albumin 1.9 G/DL (3.4-5.0) L Globulin 6.3 g/dL Albumin/Globulin Ratio 0.3 (1.0-2.7) L Arterial Blood pH 7.462 (7.350-7.450) Arterial Blood Partial Pressure CO2 34.7 mmHg (35.0-45.0) L Arterial Blood Partial Pressure O2 104.3 mmHg (75.0-100.0) H Arterial Blood HCO3 24.2 mmol/L (22.0-26.0) Arterial Blood Oxygen Saturation 97.5 % (92.0-98.0) Arterial Blood Base Excess 0.5 Luís Test Positive Current Medications Medications (Trade) Dose Ordered Sig/Torsten Route PRN Reason Start Time Stop Time Status Last Admin Dose Admin Acetaminophen (Tylenol) 650 mg Q4H PRN ORAL fever 07/07/17 15:30 08/06/17 15:29 07/09/17 07:35 Albuterol/ Ipratropium (Albuterol/ Ipratropium) 3 ml Q4H PRN HHN Shortness of Breath 07/07/17 15:30 07/12/17 15:29 Chlorhexidine Gluconate (Mariah-Hex 2%) 1 applic DAILY@2000 TOPIC 07/08/17 20:00 08/07/17 19:59 07/08/17 19:44 Heparin Sodium (Porcine) (Heparin 5000 units/ml) 5,000 units EVERY 12 HOURS SUBQ 07/07/17 21:00 08/06/17 20:59 07/08/17 20:40 Lorazepam (Ativan 2mg/ml 1ml) 2 mg Q2H PRN IV For Anxiety 07/07/17 15:30 07/14/17 15:29 Meropenem 2 gm/ Sodium Chloride 110 ml @ 220 mls/hr Q12H IVPB 07/08/17 11:00 07/13/17 10:59 07/08/17 22:51 Morphine Sulfate (Morphine Sulfate) 4 mg Q4H PRN IVP Severe Pain (Pain Scale 7-10) 07/07/17 15:30 07/14/17 15:29 Norepinephrine Bitartrate 4 mg/ Dextrose 254 ml @ 0 mls/hr Q24H IV 07/07/17 20:30 08/06/17 20:29 07/09/17 02:12 Ondansetron HCl (Zofran) 4 mg Q6H PRN IVP Nausea & Vomiting 07/07/17 15:30 08/06/17 15:29 Pantoprazole (Protonix) 40 mg DAILY IVP 07/08/17 09:00 08/07/17 08:59 07/09/17 08:59 Polyethylene Glycol (Miralax) 17 gm DAILYPRN PRN ORAL Constipation 07/07/17 15:30 08/06/17 15:29 Potassium Phosphate 30 mm/ Sodium Chloride 285 ml @ 47.5 mls/hr ONCE ONCE IV 07/09/17 10:00 07/09/17 15:59 Sodium Chloride 1,000 ml @ 100 mls/hr Q10H IVLG 07/07/17 19:00 08/06/17 18:59 07/09/17 07:29 Vancomycin HCl (Vanco rx to dose) 1 ea DAILY PRN MISC PER RX PROTOCOL 07/08/17 10:45 08/07/17 10:44 Vancomycin HCl 1 gm/Dextrose 250 ml @ 166.636 mls/hr Q24H IVPB 07/08/17 16:00 07/13/17 15:59 07/08/17 15:57 GIGI LEIVA Jul 09, 2017 10:02
--- NOTE | 2017-07-09 11:00 | Diagnostic Imaging Report ---
Indication: Shortness of breath Comparison: 07/08/2017 A single view chest radiograph was obtained. Findings: Interstitial edema, vascular prominence, borderline cardiomegaly and hazy basilar opacities probably pleural effusions demonstrated and unchanged. Tracheostomy and generalized osteopenia are noted. Right central venous catheter with distal tip in SVC is again noted. Impression: No significant change from prior exam one day earlier.
[2017-07-09] MEDS: Meropenem 2 GM in NS 110 ML IVPB SCH ×2 (11:41→23:32)
--- NOTE | 2017-07-09 13:39 | Internal Med Progress Note ---
Subjective Date of Service: Jul 09, 2017 Physician Name Moreau,Tomi Attending Physician Ho Mcghee MD Current Medications Medications (Trade) Dose Ordered Sig/Torsten Route PRN Reason Start Time Stop Time Status Last Admin Dose Admin Acetaminophen (Tylenol) 650 mg Q4H PRN ORAL fever 07/07/17 15:30 08/06/17 15:29 07/09/17 07:35 Albuterol/ Ipratropium (Albuterol/ Ipratropium) 3 ml Q4H PRN HHN Shortness of Breath 07/07/17 15:30 07/12/17 15:29 Chlorhexidine Gluconate (Mariah-Hex 2%) 1 applic DAILY@2000 TOPIC 07/08/17 20:00 08/07/17 19:59 07/08/17 19:44 Heparin Sodium (Porcine) (Heparin 5000 units/ml) 5,000 units EVERY 12 HOURS SUBQ 07/07/17 21:00 08/06/17 20:59 07/08/17 20:40 Lorazepam (Ativan 2mg/ml 1ml) 2 mg Q2H PRN IV For Anxiety 07/07/17 15:30 07/14/17 15:29 Meropenem 2 gm/ Sodium Chloride 110 ml @ 220 mls/hr Q12H IVPB 07/08/17 11:00 07/13/17 10:59 07/09/17 11:41 Morphine Sulfate (Morphine Sulfate) 4 mg Q4H PRN IVP Severe Pain (Pain Scale 7-10) 07/07/17 15:30 07/14/17 15:29 Norepinephrine Bitartrate 4 mg/ Dextrose 254 ml @ 0 mls/hr Q24H IV 07/07/17 20:30 08/06/17 20:29 07/09/17 02:12 Ondansetron HCl (Zofran) 4 mg Q6H PRN IVP Nausea & Vomiting 07/07/17 15:30 08/06/17 15:29 Pantoprazole (Protonix) 40 mg DAILY IVP 07/08/17 09:00 08/07/17 08:59 07/09/17 08:59 Polyethylene Glycol (Miralax) 17 gm DAILYPRN PRN ORAL Constipation 07/07/17 15:30 08/06/17 15:29 Potassium Phosphate 30 mm/ Sodium Chloride 285 ml @ 47.5 mls/hr ONCE ONCE IV 07/09/17 10:00 07/09/17 15:59 07/09/17 11:42 Sodium Chloride 1,000 ml @ 100 mls/hr Q10H IVLG 07/07/17 19:00 08/06/17 18:59 07/09/17 07:29 Vancomycin HCl (Vanco rx to dose) 1 ea DAILY PRN MISC PER RX PROTOCOL 07/08/17 10:45 08/07/17 10:44 Vancomycin HCl 1 gm/Dextrose 250 ml @ 166.636 mls/hr Q24H IVPB 07/08/17 16:00 07/13/17 15:59 07/08/17 15:57 Allergies: Coded Allergies: ASPIRIN (Verified Allergy, Unknown, 07/07/17) ROS Limited/Unobtainable: Yes Subjective 82 YO F admitted with hypotension and pneumonia. ICU. Intubated and sedated. Continues on levophed. Cover for Int Pernell-dr Mcghee. Objective Last Vital Signs Date Time Temp Pulse Resp B/P (MAP) Pulse Ox O2 Delivery O2 Flow Rate FiO2 07/09/17 13:30 64 19 114/73 100 Mechanical Ventilator 35 07/09/17 12:00 100.1 07/07/17 18:27 15.0 Laboratory Tests Test 07/09/17 05:15 07/09/17 08:50 White Blood Count 11.6 K/UL (4.8-10.8) H Red Blood Count 2.23 M/UL (4.20-5.40) L Hemoglobin 6.6 G/DL (12.0-16.0) *L Hematocrit 21.3 % (37.0-47.0) L Mean Corpuscular Volume 96 FL (80-99) Mean Corpuscular Hemoglobin 29.6 PG (27.0-31.0) Mean Corpuscular Hemoglobin Concent 30.9 G/DL (32.0-36.0) L Red Cell Distribution Width 14.7 % (11.6-14.8) Platelet Count 352 K/UL (150-450) Mean Platelet Volume 7.3 FL (6.5-10.1) Neutrophils (%) (Auto) % (45.0-75.0) Lymphocytes (%) (Auto) % (20.0-45.0) Monocytes (%) (Auto) % (1.0-10.0) Eosinophils (%) (Auto) % (0.0-3.0) Basophils (%) (Auto) % (0.0-2.0) Differential Total Cells Counted 100 Neutrophils % (Manual) 72 % (45-75) Lymphocytes % (Manual) 17 % (20-45) L Monocytes % (Manual) 4 % (1-10) Eosinophils % (Manual) 6 % (0-3) H Basophils % (Manual) 0 % (0-2) Band Neutrophils 1 % (0-8) Platelet Estimate Adequate Platelet Morphology Normal Hypochromasia 4+ Anisocytosis 1+ Sodium Level 155 MMOL/L (136-145) H Potassium Level 3.4 MMOL/L (3.5-5.1) L Chloride Level 119 MMOL/L (98-107) H Carbon Dioxide Level 27 MMOL/L (21-32) Anion Gap 9 mmol/L (5-15) Blood Urea Nitrogen 17 mg/dL (7-18) Creatinine 0.9 MG/DL (0.55-1.30) Estimat Glomerular Filtration Rate mL/min (>60) Glucose Level 94 MG/DL (74-106) Calcium Level 8.9 MG/DL (8.5-10.1) Phosphorus Level 1.6 MG/DL (2.5-4.9) L Magnesium Level 2.2 MG/DL (1.8-2.4) Total Bilirubin 0.3 MG/DL (0.2-1.0) Aspartate Amino Transf (AST/SGOT) 20 U/L (15-37) Alanine Aminotransferase (ALT/SGPT) 16 U/L (12-78) Alkaline Phosphatase 60 U/L (46-116) Total Protein 8.2 G/DL (6.4-8.2) Albumin 1.9 G/DL (3.4-5.0) L Globulin 6.3 g/dL Albumin/Globulin Ratio 0.3 (1.0-2.7) L Arterial Blood pH 7.462 (7.350-7.450) Arterial Blood Partial Pressure CO2 34.7 mmHg (35.0-45.0) L Arterial Blood Partial Pressure O2 104.3 mmHg (75.0-100.0) H Arterial Blood HCO3 24.2 mmol/L (22.0-26.0) Arterial Blood Oxygen Saturation 97.5 % (92.0-98.0) Arterial Blood Base Excess 0.5 Luís Test Positive Microbiology Date/Time Source Procedure Growth Status 07/07/17 15:05 Blood Blood Culture - Preliminary Resulted 07/07/17 14:50 Blood Blood Culture - Preliminary NO GROWTH AFTER 24 HOURS Resulted 07/08/17 01:30 Sputum Gram Stain - Final Resulted 07/08/17 01:30 Sputum Culture - Preliminary Gram Negative Tom Resulted 07/07/17 15:35 Nasal Nares MRSA Culture - Final Staphylococcus Aureus - Mrsa Complete 07/07/17 15:35 Urine,Clean Catch Urine Culture - Preliminary NO GROWTH AFTER 24 HOURS Resulted 07/07/17 15:35 Rectum VRE Culture - Final Enterococcus Faecalis - Vre Complete Intake and Output 07/09/17 07/10/17 19:00 07:00 Intake Total 1411.73 ml Output Total 415 ml Balance 996.73 ml Intake Free Water 100 ml IV Total 921.73 ml Tube Feeding 130 ml Blood Product 260 ml Output Urine Total 415 ml Objective General Appearance: WD/WN, moderate distress, lethargic EENT: PERRL/EOMI, normal ENT inspection Neck: non-tender, normal alignment, supple, other - tracheostomy Cardiovascular: normal peripheral pulses, normal rate, regular rhythm, no gallop/murmur, no JVD Respiratory/Chest: Mechanical vent; chest wall non-tender, crackles/rales, rhonchi - bilaterally, expiratory wheezing Abdomen: normal bowel sounds, non tender, soft, no organomegaly, no mass Extremities: non-tender Neurologic: billing analyst II-XII grossly normal Skin: normal pigmentation, warm/dry Assessment/Plan Problem List: (1) Fever (2) Hypotension Assessment & Plan: Due to Sepsis-Cont levophed and antibiotics. (3) Sepsis Assessment & Plan: Await cultures. Cont vanco and meropenem per ID (4) Respiratory failure Assessment & Plan: Due to pneumonia. Cont mech vent-see pulmonary note. (5) Tracheostomy care (6) HTN (hypertension) Assessment & Plan: Current hypotensive. (7) Seizure disorder (8) Dysphagia Assessment & Plan: G-tube feeds per GI (9) Pneumonia (10) Septic shock (11) Anemia Assessment & Plan: Worsening; transfuse 1 unit PRBC today Status: not improved TOMI MOREAU Jul 09, 2017 13:39
[2017-07-09 14:30] LABS: MEAN CORPUSCULAR HEMOGLOBIN 29.7 PG (27.0-31.0); MEAN CORPUSCULAR HGB CONC 30.8 G/DL (32.0-36.0); MEAN CORPUSCULAR VOLUME 96 FL (80-99); MEAN PLATELET VOLUME 6.9 FL (6.5-10.1); PLATELET COUNT 352 K/UL (150-450); RED BLOOD COUNT 2.62 M/UL (4.20-5.40); WHITE BLOOD COUNT 11.2 K/UL (4.8-10.8)
[2017-07-09 15:47] LABS: LYMPHOCYTES % (MANUAL) 21 % (20-45); NEUTROPHILS % (MANUAL) 70 % (45-75); TOTAL CELLS COUNTED 100
[2017-07-09 15:48] LABS: BAND NEUTROPHILS % (MANUAL) 0 % (0-8); BASOPHILS % (MANUAL) 0 % (0-2); EOSINOPHILS % (MANUAL) 1 % (0-3); PLATELET ESTIMATE ADEQUATE; PLATELET MORPHOLOGY NORMAL
[2017-07-09 15:49] LABS: HYPOCHROMASIA 2+
[2017-07-09 15:50] LABS: ANISOCYTOSIS 1+; MACROCYTES OCCASIONAL
[2017-07-09] MEDS ORDERED: D5NS 1000ml IV ONE (15:50)
[2017-07-09] MEDS: Dyna-Hex 2% Top Sol 2oz TOPIC SCH (20:00)
[2017-07-10] VITALS (31 sets, daily range): BP systolic 63–148; BP diastolic 28–105
[2017-07-10 05:54] LABS: BASOPHILS % (AUTO) 0.8 % (0.0-2.0); EOSINOPHILS % (AUTO) 0.4 % (0.0-3.0); LYMPHOCYTES % (AUTO) 9.1 % (20.0-45.0); MEAN CORPUSCULAR HEMOGLOBIN 29.7 PG (27.0-31.0); MEAN CORPUSCULAR HGB CONC 30.5 G/DL (32.0-36.0); MEAN CORPUSCULAR VOLUME 97 FL (80-99); MEAN PLATELET VOLUME 7.1 FL (6.5-10.1); MONOCYTES % (AUTO) 7.4 % (1.0-10.0); NEUTROPHILS % (AUTO) 82.3 % (45.0-75.0); PLATELET COUNT 332 K/UL (150-450); RED BLOOD COUNT 3.14 M/UL (4.20-5.40); RED CELL DISTRIBUTION WIDTH 13.8 % (11.6-14.8); WHITE BLOOD COUNT 12.2 K/UL (4.8-10.8)
[2017-07-10 05:56] LABS: ALANINE AMINOTRANSFERASE 18 U/L (12-78); ALBUMIN/GLOBULIN RATIO 0.3 (1.0-2.7); ANION GAP 9 mmol/L (5-15); ASPARTATE AMINO TRANSFERASE 19 U/L (15-37); CALCIUM 8.2 MG/DL (8.5-10.1); CARBON DIOXIDE 26 MMOL/L (21-32); CHLORIDE 119 MMOL/L (98-107); MAGNESIUM 1.9 MG/DL (1.8-2.4); PHOSPHORUS 2.3 MG/DL (2.5-4.9); POTASSIUM 3.5 MMOL/L (3.5-5.1); SODIUM 154 MMOL/L (136-145); TOTAL PROTEIN 7.7 G/DL (6.4-8.2)
[2017-07-10 08:33] LABS: ABG ALLEN TEST POSITIVE; ABG BASE EXCESS 0.9; ABG PCO2 44.9 mmHg (35.0-45.0)
[2017-07-10] MEDS: Pantoprazole Inj IVP SCH (08:45)
[2017-07-10] MEDS: Heparin 5000 units/ml inj SUBQ SCH ×2 (08:48→21:26)
--- NOTE | 2017-07-10 10:09 | Pulmonolgy Critical Care Note ---
Critical Care - Asmt/Plan Problems: (1) Septic shock (2) Acute and chronic respiratory failure (3) Anemia (4) Pneumonia Respiratory: monitor respiratory rate, adjust FIO2, CXR Cardiac: d/c radiographer cardiac catheterization Renal: F/U I&O, keep IV fluid Infectious Disease: check cultures, continue antibiotics Gastrointestinal: continue feedings/current rate Endocrine: check TSH, check HgA1C, continue sliding scale insulin Hematologic: transfuse if hgb<8.5 Neurologic: PRN Morphine, keep patient comfortable Affect: PRN ativan Prophylaxis: Protonix, Heparin Notes Reviewed: 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, consultants, rn field case managermanager office services - Objective Last 24 Hour Vital Signs Date Time Temp Pulse Resp B/P (MAP) Pulse Ox O2 Delivery O2 Flow Rate FiO2 07/10/17 09:00 94 16 105/57 100 Mechanical Ventilator 35 07/10/17 08:57 97 16 35 07/10/17 08:00 35 07/10/17 08:00 94 07/10/17 08:00 100.8 93 16 112/56 100 Mechanical Ventilator 35 07/10/17 07:30 94 16 109/70 100 Mechanical Ventilator 35 07/10/17 07:06 98 16 35 07/10/17 07:00 99 16 94/71 100 Mechanical Ventilator 35 07/10/17 06:00 117/71 07/10/17 06:00 99 16 117/71 100 Mechanical Ventilator 07/10/17 05:30 93 16 98/65 100 Mechanical Ventilator 07/10/17 05:04 93 18 35 07/10/17 05:00 93 16 112/58 100 Mechanical Ventilator 07/10/17 05:00 98/65 07/10/17 04:30 97 18 124/44 100 Mechanical Ventilator 07/10/17 04:00 99.4 99 18 125/67 100 Mechanical Ventilator 07/10/17 04:00 99 07/10/17 04:00 35 07/10/17 04:00 125/67 07/10/17 03:30 98 16 112/58 100 Mechanical Ventilator 07/10/17 03:18 103 16 35 07/10/17 03:00 115/48 07/10/17 03:00 106 16 115/48 100 Mechanical Ventilator 07/10/17 02:30 104 16 98/58 100 Mechanical Ventilator 07/10/17 02:00 105 16 112/51 100 Mechanical Ventilator 07/10/17 02:00 98/58 07/10/17 01:30 103 16 135/43 100 Mechanical Ventilator 07/10/17 01:05 121 16 35 07/10/17 01:00 107/47 07/10/17 01:00 105 16 107/54 100 Mechanical Ventilator 07/10/17 00:30 92 16 110/28 100 Mechanical Ventilator 07/10/17 00:00 110/28 07/10/17 00:00 93 07/10/17 00:00 99.6 95 20 110/28 98 Mechanical Ventilator 07/10/17 00:00 35 07/09/17 23:30 104 16 136/91 100 Mechanical Ventilator 07/09/17 23:25 110 28 35 07/09/17 23:00 91 16 113/52 100 Mechanical Ventilator 07/09/17 23:00 113/63 07/09/17 22:30 97 20 101/84 98 Mechanical Ventilator 07/09/17 22:00 112 20 129/84 98 Mechanical Ventilator 07/09/17 22:00 129/33 07/09/17 21:49 99.0 07/09/17 21:30 120 20 154/82 100 Mechanical Ventilator 35 07/09/17 21:19 131 28 35 07/09/17 21:00 91 16 156/110 100 Mechanical Ventilator 35 07/09/17 21:00 154/84 07/09/17 20:30 79 18 142/50 100 Mechanical Ventilator 35 07/09/17 20:00 120 07/09/17 20:00 35 07/09/17 20:00 150/80 07/09/17 20:00 99.9 77 18 138/48 100 Mechanical Ventilator 35 07/09/17 19:11 84 22 35 07/09/17 19:00 71 18 126/55 100 Mechanical Ventilator 35 07/09/17 18:30 77 20 97/51 100 Mechanical Ventilator 35 07/09/17 18:00 52 19 105/46 100 Mechanical Ventilator 35 07/09/17 17:30 80 16 79/37 100 Mechanical Ventilator 35 07/09/17 17:15 71 16 35 07/09/17 17:04 100.3 07/09/17 17:00 80 18 100/47 100 Mechanical Ventilator 35 07/09/17 16:30 98 22 133/48 100 Mechanical Ventilator 35 07/09/17 16:00 88 11/12/17 16:00 101.0 91 26 96/42 100 Mechanical Ventilator 35 07/09/17 16:00 35 07/09/17 15:30 89 15 100/54 100 Mechanical Ventilator 35 07/09/17 15:10 83 17 35 07/09/17 15:00 89 16 99/57 100 Mechanical Ventilator 35 07/09/17 14:30 83 20 103/75 100 Mechanical Ventilator 35 07/09/17 14:00 77 19 97/48 100 Mechanical Ventilator 35 07/09/17 13:30 64 19 114/73 100 Mechanical Ventilator 35 07/09/17 13:10 67 21 35 07/09/17 13:00 66 19 114/73 100 Mechanical Ventilator 35 07/09/17 12:30 66 18 101/57 100 Mechanical Ventilator 35 07/09/17 12:00 100.1 70 27 99/43 100 Mechanical Ventilator 35 07/09/17 12:00 66 07/09/17 12:00 35 07/09/17 11:30 69 21 93/47 100 Mechanical Ventilator 35 07/09/17 11:10 63 22 35 07/09/17 11:00 64 20 76/55 100 Mechanical Ventilator 35 07/09/17 10:30 61 17 96/59 100 Mechanical Ventilator 35 Status: awake Condition: critical Neck: full ROM Lungs: chest wall tender Heart: HR/BP stable, regular Abdomen: soft, active bowel sounds, feeding tube Extremities: no C/C/E, edema Decubiti: location Micro: Microbiology Date/Time Source Procedure Growth Status 07/07/17 15:05 Blood Blood Culture - Preliminary Staphylococcus Sp Coag Neg Resulted 07/07/17 14:50 Blood Blood Culture - Preliminary NO GROWTH AFTER 48 HOURS Resulted 07/08/17 01:30 Sputum Gram Stain - Final Resulted 07/08/17 01:30 Sputum Culture - Preliminary A.baumanii Complx - Mdr Resulted 07/07/17 15:35 Nasal Nares MRSA Culture - Final Staphylococcus Aureus - Mrsa Complete 07/07/17 15:35 Urine,Clean Catch Urine Culture - Final NO GROWTH AFTER 48 HOURS Complete 07/07/17 15:35 Rectum VRE Culture - Final Enterococcus Faecalis - Vre Complete Critical Care - Subjective ROS Limited/Unobtainable: Yes ICU Day: 3 Condition: critical EKG Rhythm: Sinus Rhythm FI02: 35 Vent Support Breath Rate: 16 Vent Support Mode: AC Vent Tidal Volume: 600 Sputum Amount: Large PEEP: 5.0 PIP: 51 Fluids: NS 100 cc/hour Tube Feeding Amount: 55 I&O: Intake and Output 07/10/17 07/11/17 19:00 07:00 Intake Total 210 ml Output Total 340 ml Balance -130 ml Tube Feeding 110 ml Other 100 ml Output Urine Total 340 ml CXR: bilateral infiltrate Labs: Laboratory Tests Test 07/09/17 14:00 07/09/17 14:30 07/10/17 04:10 07/10/17 08:28 White Blood Count 11.2 K/UL (4.8-10.8) H 12.2 K/UL (4.8-10.8) H Red Blood Count 2.62 M/UL (4.20-5.40) L 3.14 M/UL (4.20-5.40) L Hemoglobin 7.8 G/DL (12.0-16.0) L 9.3 G/DL (12.0-16.0) L Hematocrit 25.3 % (37.0-47.0) L 30.6 % (37.0-47.0) L Mean Corpuscular Volume 96 FL (80-99) 97 FL (80-99) Mean Corpuscular Hemoglobin 29.7 PG (27.0-31.0) 29.7 PG (27.0-31.0) Mean Corpuscular Hemoglobin Concent 30.8 G/DL (32.0-36.0) L 30.5 G/DL (32.0-36.0) L Red Cell Distribution Width 14.0 % (11.6-14.8) 13.8 % (11.6-14.8) Platelet Count 352 K/UL (150-450) 332 K/UL (150-450) Mean Platelet Volume 6.9 FL (6.5-10.1) 7.1 FL (6.5-10.1) Neutrophils (%) (Auto) % (45.0-75.0) 82.3 % (45.0-75.0) H Lymphocytes (%) (Auto) % (20.0-45.0) 9.1 % (20.0-45.0) L Monocytes (%) (Auto) % (1.0-10.0) 7.4 % (1.0-10.0) Eosinophils (%) (Auto) % (0.0-3.0) 0.4 % (0.0-3.0) Basophils (%) (Auto) % (0.0-2.0) 0.8 % (0.0-2.0) Differential Total Cells Counted 100 Neutrophils % (Manual) 70 % (45-75) Lymphocytes % (Manual) 21 % (20-45) Monocytes % (Manual) 7 % (1-10) Eosinophils % (Manual) 1 % (0-3) Basophils % (Manual) 0 % (0-2) Band Neutrophils 0 % (0-8) Platelet Estimate Adequate Platelet Morphology Normal Hypochromasia 2+ Anisocytosis 1+ Macrocytosis Occasional Vancomycin Level Trough 13.5 ug/mL (5.0-12.0) H Sodium Level 154 MMOL/L (136-145) H Potassium Level 3.5 MMOL/L (3.5-5.1) Chloride Level 119 MMOL/L (98-107) H Carbon Dioxide Level 26 MMOL/L (21-32) Anion Gap 9 mmol/L (5-15) Blood Urea Nitrogen 10 mg/dL (7-18) Creatinine 1.0 MG/DL (0.55-1.30) Estimat Glomerular Filtration Rate mL/min (>60) Glucose Level 167 MG/DL (74-106) H Calcium Level 8.2 MG/DL (8.5-10.1) L Phosphorus Level 2.3 MG/DL (2.5-4.9) L Magnesium Level 1.9 MG/DL (1.8-2.4) Total Bilirubin 0.3 MG/DL (0.2-1.0) Aspartate Amino Transf (AST/SGOT) 19 U/L (15-37) Alanine Aminotransferase (ALT/SGPT) 18 U/L (12-78) Alkaline Phosphatase 60 U/L (46-116) Total Protein 7.7 G/DL (6.4-8.2) Albumin 1.7 G/DL (3.4-5.0) L Globulin 6.0 g/dL Albumin/Globulin Ratio 0.3 (1.0-2.7) L Arterial Blood pH 7.384 (7.350-7.450) Arterial Blood Partial Pressure CO2 44.9 mmHg (35.0-45.0) Arterial Blood Partial Pressure O2 89.1 mmHg (75.0-100.0) Arterial Blood HCO3 26.2 mmol/L (22.0-26.0) H Arterial Blood Oxygen Saturation 96.2 % (92.0-98.0) Arterial Blood Base Excess 0.9 Luís Test Positive COBY LEBLANC Jul 10, 2017 10:09
[2017-07-10] MEDS: Meropenem 2 GM in NS 110 ML IVPB SCH ×2 (10:44→22:45)
--- NOTE | 2017-07-10 10:46 | Internal Med Progress Note ---
Subjective Date of Service: Jul 10, 2017 Physician Name Moreau,Tomi Attending Physician Ho Mcghee MD Current Medications Medications (Trade) Dose Ordered Sig/Torsten Route PRN Reason Start Time Stop Time Status Last Admin Dose Admin Acetaminophen (Tylenol) 650 mg Q4H PRN ORAL fever 07/07/17 15:30 08/06/17 15:29 07/10/17 08:45 Albuterol/ Ipratropium (Albuterol/ Ipratropium) 3 ml Q4H PRN HHN Shortness of Breath 07/07/17 15:30 07/12/17 15:29 Chlorhexidine Gluconate (Mariah-Hex 2%) 1 applic DAILY@2000 TOPIC 07/08/17 20:00 08/07/17 19:59 07/09/17 20:00 Heparin Sodium (Porcine) (Heparin 5000 units/ml) 5,000 units EVERY 12 HOURS SUBQ 07/07/17 21:00 08/06/17 20:59 07/10/17 08:48 Lorazepam (Ativan 2mg/ml 1ml) 2 mg Q2H PRN IV For Anxiety 07/07/17 15:30 07/14/17 15:29 Meropenem 2 gm/ Sodium Chloride 110 ml @ 220 mls/hr Q12H IVPB 07/08/17 11:00 07/13/17 10:59 07/09/17 23:32 Morphine Sulfate (Morphine Sulfate) 4 mg Q4H PRN IVP Severe Pain (Pain Scale 7-10) 07/07/17 15:30 07/14/17 15:29 Norepinephrine Bitartrate 4 mg/ Dextrose 254 ml @ 0 mls/hr Q24H IV 07/07/17 20:30 08/06/17 20:29 07/09/17 02:12 Ondansetron HCl (Zofran) 4 mg Q6H PRN IVP Nausea & Vomiting 07/07/17 15:30 08/06/17 15:29 Pantoprazole (Protonix) 40 mg DAILY IVP 07/08/17 09:00 08/07/17 08:59 07/10/17 08:45 Polyethylene Glycol (Miralax) 17 gm DAILYPRN PRN ORAL Constipation 07/07/17 15:30 08/06/17 15:29 Sodium Chloride 1,000 ml @ 100 mls/hr Q10H IVLG 07/07/17 19:00 08/06/17 18:59 07/10/17 07:17 Vancomycin HCl (Vanco rx to dose) 1 ea DAILY PRN MISC PER RX PROTOCOL 07/08/17 10:45 08/07/17 10:44 Vancomycin HCl 1 gm/Dextrose 250 ml @ 166.636 mls/hr Q24H IVPB 07/08/17 16:00 07/13/17 15:59 07/09/17 16:04 Allergies: Coded Allergies: ASPIRIN (Verified Allergy, Unknown, 07/07/17) ROS Limited/Unobtainable: Yes Subjective 82 YO F admitted with hypotension and pneumonia. ICU. Intubated and sedated. Continues on levophed. Cover for Int Pernell-dr Mcghee. Objective Last Vital Signs Date Time Temp Pulse Resp B/P (MAP) Pulse Ox O2 Delivery O2 Flow Rate FiO2 07/10/17 10:00 87 16 73/40 100 Mechanical Ventilator 35 07/10/17 09:44 99.9 07/07/17 18:27 15.0 Laboratory Tests Test 07/09/17 14:00 07/09/17 14:30 07/10/17 04:10 07/10/17 08:28 White Blood Count 11.2 K/UL (4.8-10.8) H 12.2 K/UL (4.8-10.8) H Red Blood Count 2.62 M/UL (4.20-5.40) L 3.14 M/UL (4.20-5.40) L Hemoglobin 7.8 G/DL (12.0-16.0) L 9.3 G/DL (12.0-16.0) L Hematocrit 25.3 % (37.0-47.0) L 30.6 % (37.0-47.0) L Mean Corpuscular Volume 96 FL (80-99) 97 FL (80-99) Mean Corpuscular Hemoglobin 29.7 PG (27.0-31.0) 29.7 PG (27.0-31.0) Mean Corpuscular Hemoglobin Concent 30.8 G/DL (32.0-36.0) L 30.5 G/DL (32.0-36.0) L Red Cell Distribution Width 14.0 % (11.6-14.8) 13.8 % (11.6-14.8) Platelet Count 352 K/UL (150-450) 332 K/UL (150-450) Mean Platelet Volume 6.9 FL (6.5-10.1) 7.1 FL (6.5-10.1) Neutrophils (%) (Auto) % (45.0-75.0) 82.3 % (45.0-75.0) H Lymphocytes (%) (Auto) % (20.0-45.0) 9.1 % (20.0-45.0) L Monocytes (%) (Auto) % (1.0-10.0) 7.4 % (1.0-10.0) Eosinophils (%) (Auto) % (0.0-3.0) 0.4 % (0.0-3.0) Basophils (%) (Auto) % (0.0-2.0) 0.8 % (0.0-2.0) Differential Total Cells Counted 100 Neutrophils % (Manual) 70 % (45-75) Lymphocytes % (Manual) 21 % (20-45) Monocytes % (Manual) 7 % (1-10) Eosinophils % (Manual) 1 % (0-3) Basophils % (Manual) 0 % (0-2) Band Neutrophils 0 % (0-8) Platelet Estimate Adequate Platelet Morphology Normal Hypochromasia 2+ Anisocytosis 1+ Macrocytosis Occasional Vancomycin Level Trough 13.5 ug/mL (5.0-12.0) H Sodium Level 154 MMOL/L (136-145) H Potassium Level 3.5 MMOL/L (3.5-5.1) Chloride Level 119 MMOL/L (98-107) H Carbon Dioxide Level 26 MMOL/L (21-32) Anion Gap 9 mmol/L (5-15) Blood Urea Nitrogen 10 mg/dL (7-18) Creatinine 1.0 MG/DL (0.55-1.30) Estimat Glomerular Filtration Rate mL/min (>60) Glucose Level 167 MG/DL (74-106) H Calcium Level 8.2 MG/DL (8.5-10.1) L Phosphorus Level 2.3 MG/DL (2.5-4.9) L Magnesium Level 1.9 MG/DL (1.8-2.4) Total Bilirubin 0.3 MG/DL (0.2-1.0) Aspartate Amino Transf (AST/SGOT) 19 U/L (15-37) Alanine Aminotransferase (ALT/SGPT) 18 U/L (12-78) Alkaline Phosphatase 60 U/L (46-116) Total Protein 7.7 G/DL (6.4-8.2) Albumin 1.7 G/DL (3.4-5.0) L Globulin 6.0 g/dL Albumin/Globulin Ratio 0.3 (1.0-2.7) L Arterial Blood pH 7.384 (7.350-7.450) Arterial Blood Partial Pressure CO2 44.9 mmHg (35.0-45.0) Arterial Blood Partial Pressure O2 89.1 mmHg (75.0-100.0) Arterial Blood HCO3 26.2 mmol/L (22.0-26.0) H Arterial Blood Oxygen Saturation 96.2 % (92.0-98.0) Arterial Blood Base Excess 0.9 Luís Test Positive Microbiology Date/Time Source Procedure Growth Status 07/07/17 15:05 Blood Blood Culture - Preliminary Staphylococcus Sp Coag Neg Resulted 07/07/17 14:50 Blood Blood Culture - Preliminary NO GROWTH AFTER 48 HOURS Resulted 07/08/17 01:30 Sputum Gram Stain - Final Resulted 07/08/17 01:30 Sputum Culture - Preliminary A.baumanii Complx - Mdr Resulted 07/07/17 15:35 Nasal Nares MRSA Culture - Final Staphylococcus Aureus - Mrsa Complete 07/07/17 15:35 Urine,Clean Catch Urine Culture - Final NO GROWTH AFTER 48 HOURS Complete 07/07/17 15:35 Rectum VRE Culture - Final Enterococcus Faecalis - Vre Complete Intake and Output 07/10/17 07/11/17 19:00 07:00 Intake Total 265 ml Output Total 440 ml Balance -175 ml Tube Feeding 165 ml Other 100 ml Output Urine Total 440 ml Objective General Appearance: WD/WN, moderate distress, lethargic EENT: PERRL/EOMI, normal ENT inspection Neck: trach; non-tender, normal alignment, supple, other - tracheostomy Cardiovascular: normal peripheral pulses, normal rate, regular rhythm, no gallop/murmur, no JVD Respiratory/Chest: Mechanical vent; chest wall non-tender, crackles/rales, rhonchi - bilaterally, expiratory wheezing Abdomen: normal bowel sounds, non tender, soft, no organomegaly, no mass Extremities: non-tender Neurologic: eating disorder specialist II-XII grossly normal Skin: normal pigmentation, warm/dry Assessment/Plan Problem List: (1) Fever (2) Hypotension Assessment & Plan: Due to Sepsis-Cont levophed and antibiotics. (3) Sepsis Assessment & Plan: Await cultures. Cont vanco and meropenem per ID (4) Respiratory failure Assessment & Plan: Due to pneumonia. Cont mech vent-see pulmonary note. (5) Tracheostomy care (6) HTN (hypertension) Assessment & Plan: Current hypotensive. (7) Seizure disorder (8) Dysphagia Assessment & Plan: G-tube feeds per GI (9) Pneumonia (10) Septic shock (11) Anemia Assessment & Plan: Worsening; S/P transfusion 2 unit PRBC 07/09/17 (12) Hypernatremia Assessment & Plan: Change IV fluid to 1/2 NS Status: not improved TOMI MOREAU Jul 10, 2017 10:46
--- NOTE | 2017-07-10 12:31 | Diagnostic Imaging Report ---
Indication: DYSPNEA Technique: One view of the chest Comparison: 07/09/2017 Findings: Again demonstrated is a tracheostomy. There is a right subclavian central venous catheter again demonstrated. 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 Heart size is normal. Impression: Unchanged, over one day, findings as above.
--- NOTE | 2017-07-10 13:54 | Infectious Diseases Prog Note ---
Assessment/Plan Assessment/Plan Assesment: Septic shock - PNA Scx: ACB -CXR: Interstitial edema, vascular prominence, borderline cardiomegaly and hazy basilar opacities probably pleural effusions demonstrated. RO UTI; +ve blood cx : CONS 1/2 , ? contaminant Fever Leukocytosis Ctr line 07/07 HTN seizure disorder VDRF SP PEG Plan: -Continue IV Vancomycin # 4 and start Meropenem d# 3 ,add Colistin INH/ IV d# 1 SP Amikacin #2 07/08 -f/u Cx ( blood ) , repeat blood cx -Monitor CBC/BMP, temperatures -trach/peg care Subjective Allergies: Coded Allergies: ASPIRIN (Verified Allergy, Unknown, 07/07/17) Subjective on vent Objective Vital Signs Last 24 Hour Vital Signs Date Time Temp Pulse Resp B/P (MAP) Pulse Ox O2 Delivery O2 Flow Rate FiO2 07/10/17 13:10 91 16 35 07/10/17 13:00 99 17 107/65 100 Mechanical Ventilator 35 07/10/17 12:00 99.9 97 16 148/67 100 Mechanical Ventilator 35 07/10/17 12:00 68 07/10/17 12:00 35 07/10/17 11:10 77 16 35 07/10/17 11:00 138/73 07/10/17 11:00 83 17 125/52 100 Mechanical Ventilator 35 07/10/17 10:00 87 16 73/40 100 Mechanical Ventilator 35 07/10/17 10:00 73/40 07/10/17 09:44 99.9 07/10/17 09:00 76/38 07/10/17 09:00 94 16 105/57 100 Mechanical Ventilator 35 07/10/17 08:57 97 16 35 07/10/17 08:00 35 07/10/17 08:00 94 07/10/17 08:00 100.8 93 16 112/56 100 Mechanical Ventilator 35 07/10/17 07:30 94 16 109/70 100 Mechanical Ventilator 35 07/10/17 07:06 98 16 35 07/10/17 07:00 99 16 94/71 100 Mechanical Ventilator 35 07/10/17 06:00 117/71 07/10/17 06:00 99 16 117/71 100 Mechanical Ventilator 07/10/17 05:30 93 16 98/65 100 Mechanical Ventilator 07/10/17 05:04 93 18 35 07/10/17 05:00 93 16 112/58 100 Mechanical Ventilator 07/10/17 05:00 98/65 07/10/17 04:30 97 18 124/44 100 Mechanical Ventilator 07/10/17 04:00 99.4 99 18 125/67 100 Mechanical Ventilator 07/10/17 04:00 99 07/10/17 04:00 35 07/10/17 04:00 125/67 07/10/17 03:30 98 16 112/58 100 Mechanical Ventilator 07/10/17 03:18 103 16 35 07/10/17 03:00 115/48 07/10/17 03:00 106 16 115/48 100 Mechanical Ventilator 07/10/17 02:30 104 16 98/58 100 Mechanical Ventilator 07/10/17 02:00 105 16 112/51 100 Mechanical Ventilator 07/10/17 02:00 98/58 07/10/17 01:30 103 16 135/43 100 Mechanical Ventilator 07/10/17 01:05 121 16 35 07/10/17 01:00 107/47 07/10/17 01:00 105 16 107/54 100 Mechanical Ventilator 07/10/17 00:30 92 16 110/28 100 Mechanical Ventilator 07/10/17 00:00 110/28 07/10/17 00:00 93 07/10/17 00:00 99.6 95 20 110/28 98 Mechanical Ventilator 07/10/17 00:00 35 07/09/17 23:30 104 16 136/91 100 Mechanical Ventilator 07/09/17 23:25 110 28 35 07/09/17 23:00 91 16 113/52 100 Mechanical Ventilator 07/09/17 23:00 113/63 07/09/17 22:30 97 20 101/84 98 Mechanical Ventilator 07/09/17 22:00 112 20 129/84 98 Mechanical Ventilator 07/09/17 22:00 129/33 07/09/17 21:49 99.0 07/09/17 21:30 120 20 154/82 100 Mechanical Ventilator 35 07/09/17 21:19 131 28 35 07/09/17 21:00 91 16 156/110 100 Mechanical Ventilator 35 07/09/17 21:00 154/84 07/09/17 20:30 79 18 142/50 100 Mechanical Ventilator 35 07/09/17 20:00 120 07/09/17 20:00 35 07/09/17 20:00 150/80 07/09/17 20:00 99.9 77 18 138/48 100 Mechanical Ventilator 35 07/09/17 19:11 84 22 35 07/09/17 19:00 71 18 126/55 100 Mechanical Ventilator 35 07/09/17 18:30 77 20 97/51 100 Mechanical Ventilator 35 07/09/17 18:00 52 19 105/46 100 Mechanical Ventilator 35 07/09/17 17:30 80 16 79/37 100 Mechanical Ventilator 35 07/09/17 17:15 71 16 35 07/09/17 17:00 80 18 100/47 100 Mechanical Ventilator 35 07/09/17 16:30 98 22 133/48 100 Mechanical Ventilator 35 07/09/17 16:00 88 07/09/17 16:00 101.0 91 26 96/42 100 Mechanical Ventilator 35 07/09/17 16:00 35 07/09/17 15:30 89 15 100/54 100 Mechanical Ventilator 35 07/09/17 15:10 83 17 35 07/09/17 15:00 89 16 99/57 100 Mechanical Ventilator 35 07/09/17 14:30 83 20 103/75 100 Mechanical Ventilator 35 07/09/17 14:00 77 19 97/48 100 Mechanical Ventilator 35 Height (Feet): 5 Height (Inches): 4.00 Weight (Pounds): 150 HEENT: anicteric Respiratory/Chest: normal breath sounds Cardiovascular: regular rhythm Abdomen: soft, non tender Microbiology Date/Time Source Procedure Growth Status 07/07/17 15:05 Blood Blood Culture - Preliminary Staphylococcus Sp Coag Neg Resulted 07/07/17 14:50 Blood Blood Culture - Preliminary NO GROWTH AFTER 48 HOURS Resulted 07/08/17 01:30 Sputum Gram Stain - Final Resulted 07/08/17 01:30 Sputum Culture - Preliminary A.baumanii Complx - Mdr Resulted 07/07/17 15:35 Nasal Nares MRSA Culture - Final Staphylococcus Aureus - Mrsa Complete 07/07/17 15:35 Urine,Clean Catch Urine Culture - Final NO GROWTH AFTER 48 HOURS Complete 07/07/17 15:35 Rectum VRE Culture - Final Enterococcus Faecalis - Vre Complete Laboratory Tests Test 07/09/17 14:00 07/09/17 14:30 07/10/17 04:10 07/10/17 08:28 White Blood Count 11.2 K/UL (4.8-10.8) H 12.2 K/UL (4.8-10.8) H Red Blood Count 2.62 M/UL (4.20-5.40) L 3.14 M/UL (4.20-5.40) L Hemoglobin 7.8 G/DL (12.0-16.0) L 9.3 G/DL (12.0-16.0) L Hematocrit 25.3 % (37.0-47.0) L 30.6 % (37.0-47.0) L Mean Corpuscular Volume 96 FL (80-99) 97 FL (80-99) Mean Corpuscular Hemoglobin 29.7 PG (27.0-31.0) 29.7 PG (27.0-31.0) Mean Corpuscular Hemoglobin Concent 30.8 G/DL (32.0-36.0) L 30.5 G/DL (32.0-36.0) L Red Cell Distribution Width 14.0 % (11.6-14.8) 13.8 % (11.6-14.8) Platelet Count 352 K/UL (150-450) 332 K/UL (150-450) Mean Platelet Volume 6.9 FL (6.5-10.1) 7.1 FL (6.5-10.1) Neutrophils (%) (Auto) % (45.0-75.0) 82.3 % (45.0-75.0) H Lymphocytes (%) (Auto) % (20.0-45.0) 9.1 % (20.0-45.0) L Monocytes (%) (Auto) % (1.0-10.0) 7.4 % (1.0-10.0) Eosinophils (%) (Auto) % (0.0-3.0) 0.4 % (0.0-3.0) Basophils (%) (Auto) % (0.0-2.0) 0.8 % (0.0-2.0) Differential Total Cells Counted 100 Neutrophils % (Manual) 70 % (45-75) Lymphocytes % (Manual) 21 % (20-45) Monocytes % (Manual) 7 % (1-10) Eosinophils % (Manual) 1 % (0-3) Basophils % (Manual) 0 % (0-2) Band Neutrophils 0 % (0-8) Platelet Estimate Adequate Platelet Morphology Normal Hypochromasia 2+ Anisocytosis 1+ Macrocytosis Occasional Vancomycin Level Trough 13.5 ug/mL (5.0-12.0) H Sodium Level 154 MMOL/L (136-145) H Potassium Level 3.5 MMOL/L (3.5-5.1) Chloride Level 119 MMOL/L (98-107) H Carbon Dioxide Level 26 MMOL/L (21-32) Anion Gap 9 mmol/L (5-15) Blood Urea Nitrogen 10 mg/dL (7-18) Creatinine 1.0 MG/DL (0.55-1.30) Estimat Glomerular Filtration Rate mL/min (>60) Glucose Level 167 MG/DL (74-106) H Calcium Level 8.2 MG/DL (8.5-10.1) L Phosphorus Level 2.3 MG/DL (2.5-4.9) L Magnesium Level 1.9 MG/DL (1.8-2.4) Total Bilirubin 0.3 MG/DL (0.2-1.0) Aspartate Amino Transf (AST/SGOT) 19 U/L (15-37) Alanine Aminotransferase (ALT/SGPT) 18 U/L (12-78) Alkaline Phosphatase 60 U/L (46-116) Total Protein 7.7 G/DL (6.4-8.2) Albumin 1.7 G/DL (3.4-5.0) L Globulin 6.0 g/dL Albumin/Globulin Ratio 0.3 (1.0-2.7) L Arterial Blood pH 7.384 (7.350-7.450) Arterial Blood Partial Pressure CO2 44.9 mmHg (35.0-45.0) Arterial Blood Partial Pressure O2 89.1 mmHg (75.0-100.0) Arterial Blood HCO3 26.2 mmol/L (22.0-26.0) H Arterial Blood Oxygen Saturation 96.2 % (92.0-98.0) Arterial Blood Base Excess 0.9 Luís Test Positive Current Medications Medications (Trade) Dose Ordered Sig/Torsten Route PRN Reason Start Time Stop Time Status Last Admin Dose Admin Acetaminophen (Tylenol) 650 mg Q4H PRN ORAL fever 07/07/17 15:30 08/06/17 15:29 07/10/17 08:45 Albuterol/ Ipratropium (Albuterol/ Ipratropium) 3 ml Q4H PRN HHN Shortness of Breath 07/07/17 15:30 07/12/17 15:29 Chlorhexidine Gluconate (Mariah-Hex 2%) 1 applic DAILY@2000 TOPIC 07/08/17 20:00 08/07/17 19:59 07/09/17 20:00 Heparin Sodium (Porcine) (Heparin 5000 units/ml) 5,000 units EVERY 12 HOURS SUBQ 07/07/17 21:00 08/06/17 20:59 07/10/17 08:48 Lorazepam (Ativan 2mg/ml 1ml) 2 mg Q2H PRN IV For Anxiety 07/07/17 15:30 07/14/17 15:29 Meropenem 2 gm/ Sodium Chloride 110 ml @ 220 mls/hr Q12H IVPB 07/08/17 11:00 07/13/17 10:59 07/10/17 10:44 Morphine Sulfate (Morphine Sulfate) 4 mg Q4H PRN IVP Severe Pain (Pain Scale 7-10) 07/07/17 15:30 07/14/17 15:29 Norepinephrine Bitartrate 4 mg/ Dextrose 254 ml @ 0 mls/hr Q24H IV 07/07/17 20:30 08/06/17 20:29 07/09/17 02:12 Ondansetron HCl (Zofran) 4 mg Q6H PRN IVP Nausea & Vomiting 07/07/17 15:30 08/06/17 15:29 Pantoprazole (Protonix) 40 mg DAILY IVP 07/08/17 09:00 08/07/17 08:59 07/10/17 08:45 Polyethylene Glycol (Miralax) 17 gm DAILYPRN PRN ORAL Constipation 07/07/17 15:30 08/06/17 15:29 Sodium Chloride 1,000 ml @ 100 mls/hr Q10H IV 07/10/17 11:00 08/09/17 10:59 07/10/17 10:50 Vancomycin HCl (Vanco rx to dose) 1 ea DAILY PRN MISC PER RX PROTOCOL 07/08/17 10:45 08/07/17 10:44 Vancomycin HCl 1 gm/Dextrose 250 ml @ 166.636 mls/hr Q24H IVPB 07/08/17 16:00 07/13/17 15:59 07/09/17 16:04 COLBY BRICENO M.D. Jul 10, 2017 13:54
[2017-07-10] MEDS: Colistin 150mg vial IVP SCH (16:46)
[2017-07-10] MEDS: Dyna-Hex 2% Top Sol 2oz TOPIC SCH (21:24)
[2017-07-10] MEDS: LORazepam Inj 2mg/ml 1ml IV PRN (22:57)
[2017-07-11] VITALS (24 sets, daily range): BP systolic 70–185; BP diastolic 20–108
[2017-07-11] MEDS: Colistin for inhalation INH SCH ×3 (03:04→21:18)
[2017-07-11 04:59] LABS: BASOPHILS % (AUTO) 0.7 % (0.0-2.0); EOSINOPHILS % (AUTO) 1.7 % (0.0-3.0); LYMPHOCYTES % (AUTO) 12.9 % (20.0-45.0); MEAN CORPUSCULAR HGB CONC 32.8 G/DL (32.0-36.0); MEAN CORPUSCULAR VOLUME 97 FL (80-99); MEAN PLATELET VOLUME 6.8 FL (6.5-10.1); MONOCYTES % (AUTO) 6.8 % (1.0-10.0); NEUTROPHILS % (AUTO) 77.9 % (45.0-75.0); PLATELET COUNT 316 K/UL (150-450); RED BLOOD COUNT 2.98 M/UL (4.20-5.40); RED CELL DISTRIBUTION WIDTH 14.3 % (11.6-14.8); WHITE BLOOD COUNT 13.5 K/UL (4.8-10.8)
[2017-07-11 05:26] LABS: ALBUMIN/GLOBULIN RATIO 0.3 (1.0-2.7); CALCIUM 8.6 MG/DL (8.5-10.1); CHLORIDE 114 MMOL/L (98-107); CREATININE 0.9 MG/DL (0.55-1.30); POTASSIUM 3.2 MMOL/L (3.5-5.1); SODIUM 149 MMOL/L (136-145)
[2017-07-11] MEDS: LORazepam Inj 2mg/ml 1ml IV PRN (05:37)
[2017-07-11 05:52] LABS: ALANINE AMINOTRANSFERASE 24 U/L (12-78); ASPARTATE AMINO TRANSFERASE 25 U/L (15-37); CARBON DIOXIDE 30 MMOL/L (21-32)
[2017-07-11] MEDS: Pantoprazole Inj IVP SCH (09:05)
[2017-07-11] MEDS: Heparin 5000 units/ml inj SUBQ SCH ×2 (09:06→20:23)
[2017-07-11] MEDS: Colistin 150mg vial IVP SCH ×2 (09:09→20:22)
--- NOTE | 2017-07-11 09:14 | Cardiology Progress Note ---
Assessment/Plan Assessment/Plan [id number] tachy afib anemia s/p tx vent dependence g tube dependence hypernatremia bilateral pulm infiltrate echo normla lv function , p htn to reviewed veous duplex showed recanalized thrombus right side consider in beta agoist inhaler will see if able to chemically convert with amiod if not better with iv dilt shortly Objective Last 24 Hour Vital Signs Date Time Temp Pulse Resp B/P (MAP) Pulse Ox O2 Delivery O2 Flow Rate FiO2 07/11/17 08:00 101.0 117 20 170/87 100 Mechanical Ventilator 35 07/11/17 08:00 35 07/11/17 07:29 118 16 35 07/11/17 07:00 130 35 160/20 100 Mechanical Ventilator 35 07/11/17 06:00 105 30 171/74 100 Mechanical Ventilator 35 07/11/17 05:20 102 16 35 07/11/17 05:00 109 22 178/74 100 Mechanical Ventilator 35 07/11/17 04:06 35 07/11/17 04:00 99.2 91 20 166/77 100 Mechanical Ventilator 35 07/11/17 04:00 92 07/11/17 03:09 99 16 35 07/11/17 03:00 94 22 165/72 99 Mechanical Ventilator 35 07/11/17 02:00 86 16 149/74 100 Mechanical Ventilator 35 07/11/17 01:30 80 16 35 07/11/17 01:00 71 16 106/45 100 Mechanical Ventilator 35 07/11/17 00:00 35 07/11/17 00:00 89 07/11/17 00:00 70/42 07/11/17 00:00 99.7 89 16 70/42 100 Mechanical Ventilator 35 07/10/17 23:30 76 16 35 07/10/17 23:00 108 16 146/52 97 Mechanical Ventilator 35 07/10/17 22:40 90 18 100 Mechanical Ventilator 35 07/10/17 22:30 86 16 98 Mechanical Ventilator 35 07/10/17 22:00 84 16 106/52 100 Mechanical Ventilator 35 07/10/17 21:05 91 16 35 07/10/17 21:00 87 16 134/105 100 Mechanical Ventilator 35 07/10/17 20:30 134/105 07/10/17 20:00 101.9 77 16 106/91 100 Mechanical Ventilator 35 07/10/17 20:00 101.9 11/13/17 20:00 77 07/10/17 20:00 35 07/10/17 19:30 89 16 35 07/10/17 19:00 82 16 110/42 100 Mechanical Ventilator 35 07/10/17 18:00 88 17 96/35 100 Mechanical Ventilator 35 07/10/17 17:15 87 16 35 07/10/17 17:00 98 17 142/78 100 Mechanical Ventilator 35 07/10/17 16:00 99.4 105 16 122/54 100 Mechanical Ventilator 35 07/10/17 16:00 94 07/10/17 16:00 35 07/10/17 15:00 98 16 35 07/10/17 15:00 98 17 143/45 100 Mechanical Ventilator 35 07/10/17 14:00 86 17 96/58 100 Mechanical Ventilator 35 07/10/17 13:10 91 16 35 07/10/17 13:00 99 17 107/65 100 Mechanical Ventilator 35 07/10/17 12:00 99.9 97 16 148/67 100 Mechanical Ventilator 35 07/10/17 12:00 68 07/10/17 12:00 35 07/10/17 11:10 77 16 35 07/10/17 11:00 138/73 07/10/17 11:00 83 17 125/52 100 Mechanical Ventilator 35 07/10/17 10:00 87 16 73/40 100 Mechanical Ventilator 35 07/10/17 10:00 73/40 Intake and Output 07/11/17 07/12/17 19:00 07:00 Intake Total 55 ml Balance 55 ml Tube Feeding 55 ml Laboratory Tests Test 07/11/17 04:30 White Blood Count 13.5 K/UL (4.8-10.8) H Red Blood Count 2.98 M/UL (4.20-5.40) L Hemoglobin 9.5 G/DL (12.0-16.0) L Hematocrit 29.0 % (37.0-47.0) L Mean Corpuscular Volume 97 FL (80-99) Mean Corpuscular Hemoglobin 32.0 PG (27.0-31.0) H Mean Corpuscular Hemoglobin Concent 32.8 G/DL (32.0-36.0) Red Cell Distribution Width 14.3 % (11.6-14.8) Platelet Count 316 K/UL (150-450) Mean Platelet Volume 6.8 FL (6.5-10.1) Neutrophils (%) (Auto) 77.9 % (45.0-75.0) H Lymphocytes (%) (Auto) 12.9 % (20.0-45.0) L Monocytes (%) (Auto) 6.8 % (1.0-10.0) Eosinophils (%) (Auto) 1.7 % (0.0-3.0) Basophils (%) (Auto) 0.7 % (0.0-2.0) Sodium Level 149 MMOL/L (136-145) H Potassium Level 3.2 MMOL/L (3.5-5.1) L Chloride Level 114 MMOL/L (98-107) H Carbon Dioxide Level 30 MMOL/L (21-32) Blood Urea Nitrogen 10 mg/dL (7-18) Creatinine 0.9 MG/DL (0.55-1.30) Estimat Glomerular Filtration Rate mL/min (>60) Glucose Level 125 MG/DL (74-106) H Calcium Level 8.6 MG/DL (8.5-10.1) Total Bilirubin 0.2 MG/DL (0.2-1.0) Aspartate Amino Transf (AST/SGOT) 25 U/L (15-37) Alanine Aminotransferase (ALT/SGPT) 24 U/L (12-78) Alkaline Phosphatase 78 U/L (46-116) Pro-B-Type Natriuretic Peptide 692 pg/mL (0-125) H Total Protein 8.0 G/DL (6.4-8.2) Albumin 1.7 G/DL (3.4-5.0) L Globulin 6.3 g/dL Albumin/Globulin Ratio 0.3 (1.0-2.7) L ALAINA SINGLETON Jul 11, 2017 09:14
--- NOTE | 2017-07-11 09:37 | Pulmonolgy Critical Care Note ---
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, 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 Care - Objective Last 24 Hour Vital Signs Date Time Temp Pulse Resp B/P (MAP) Pulse Ox O2 Delivery O2 Flow Rate FiO2 07/11/17 09:20 103 16 100 Mechanical Ventilator 35 07/11/17 09:19 100 16 35 07/11/17 09:08 100 16 98 Mechanical Ventilator 35 07/11/17 09:00 97 35 175/100 100 Mechanical Ventilator 35 07/11/17 08:00 101.0 117 20 170/87 100 Mechanical Ventilator 35 07/11/17 08:00 35 07/11/17 07:29 118 16 35 07/11/17 07:00 130 35 160/20 100 Mechanical Ventilator 35 07/11/17 06:00 105 30 171/74 100 Mechanical Ventilator 35 07/11/17 05:20 102 16 35 07/11/17 05:00 109 22 178/74 100 Mechanical Ventilator 35 07/11/17 04:06 35 07/11/17 04:00 99.2 91 20 166/77 100 Mechanical Ventilator 35 07/11/17 04:00 92 07/11/17 03:09 99 16 35 07/11/17 03:00 94 22 165/72 99 Mechanical Ventilator 35 07/11/17 02:00 86 16 149/74 100 Mechanical Ventilator 35 07/11/17 01:30 80 16 35 07/11/17 01:00 71 16 106/45 100 Mechanical Ventilator 35 07/11/17 00:00 35 07/11/17 00:00 89 07/11/17 00:00 70/42 07/11/17 00:00 99.7 89 16 70/42 100 Mechanical Ventilator 35 07/10/17 23:30 76 16 35 07/10/17 23:00 108 16 146/52 97 Mechanical Ventilator 35 07/10/17 22:40 90 18 100 Mechanical Ventilator 35 07/10/17 22:30 86 16 98 Mechanical Ventilator 35 07/10/17 22:00 84 16 106/52 100 Mechanical Ventilator 35 07/10/17 21:05 91 16 35 07/10/17 21:00 87 16 134/105 100 Mechanical Ventilator 35 07/10/17 20:30 134/105 07/10/17 20:00 101.9 77 16 106/91 100 Mechanical Ventilator 35 07/10/17 20:00 101.9 07/10/17 20:00 77 07/10/17 20:00 35 07/10/17 19:30 89 16 35 07/10/17 19:00 82 16 110/42 100 Mechanical Ventilator 35 07/10/17 18:00 88 17 96/35 100 Mechanical Ventilator 35 07/10/17 17:15 87 16 35 07/10/17 17:00 98 17 142/78 100 Mechanical Ventilator 35 07/10/17 16:00 99.4 105 16 122/54 100 Mechanical Ventilator 35 07/10/17 16:00 94 07/10/17 16:00 35 07/10/17 15:00 98 16 35 07/10/17 15:00 98 17 143/45 100 Mechanical Ventilator 35 07/10/17 14:00 86 17 96/58 100 Mechanical Ventilator 35 07/10/17 13:10 91 16 35 07/10/17 13:00 99 17 107/65 100 Mechanical Ventilator 35 07/10/17 12:00 99.9 97 16 148/67 100 Mechanical Ventilator 35 07/10/17 12:00 68 07/10/17 12:00 35 07/10/17 11:10 77 16 35 07/10/17 11:00 138/73 07/10/17 11:00 83 17 125/52 100 Mechanical Ventilator 35 07/10/17 10:00 87 16 73/40 100 Mechanical Ventilator 35 07/10/17 10:00 73/40 Status: awake Condition: critical HEENT: atraumatic Lungs: clear Heart: HR/BP stable Abdomen: soft, non-tender, active bowel sounds Extremities: no C/C/E, edema Decubiti: location, stage Critical Care - Subjective ROS Limited/Unobtainable: Yes Condition: critical, unchanged EKG Rhythm: Sinus Rhythm FI02: 35 Vent Support Breath Rate: 16 Vent Support Mode: AC Vent Tidal Volume: 600 Sputum Amount: Moderate PEEP: 0.0 PIP: 48 Tube Feeding Amount: 55 I&O: Intake and Output 07/11/17 07/12/17 19:00 07:00 Intake Total 110 ml Balance 110 ml Tube Feeding 110 ml CXR: bilateral infiltrate Labs: Laboratory Tests Test 07/11/17 04:30 White Blood Count 13.5 K/UL (4.8-10.8) H Red Blood Count 2.98 M/UL (4.20-5.40) L Hemoglobin 9.5 G/DL (12.0-16.0) L Hematocrit 29.0 % (37.0-47.0) L Mean Corpuscular Volume 97 FL (80-99) Mean Corpuscular Hemoglobin 32.0 PG (27.0-31.0) H Mean Corpuscular Hemoglobin Concent 32.8 G/DL (32.0-36.0) Red Cell Distribution Width 14.3 % (11.6-14.8) Platelet Count 316 K/UL (150-450) Mean Platelet Volume 6.8 FL (6.5-10.1) Neutrophils (%) (Auto) 77.9 % (45.0-75.0) H Lymphocytes (%) (Auto) 12.9 % (20.0-45.0) L Monocytes (%) (Auto) 6.8 % (1.0-10.0) Eosinophils (%) (Auto) 1.7 % (0.0-3.0) Basophils (%) (Auto) 0.7 % (0.0-2.0) Sodium Level 149 MMOL/L (136-145) H Potassium Level 3.2 MMOL/L (3.5-5.1) L Chloride Level 114 MMOL/L (98-107) H Carbon Dioxide Level 30 MMOL/L (21-32) Blood Urea Nitrogen 10 mg/dL (7-18) Creatinine 0.9 MG/DL (0.55-1.30) Estimat Glomerular Filtration Rate mL/min (>60) Glucose Level 125 MG/DL (74-106) H Calcium Level 8.6 MG/DL (8.5-10.1) Total Bilirubin 0.2 MG/DL (0.2-1.0) Aspartate Amino Transf (AST/SGOT) 25 U/L (15-37) Alanine Aminotransferase (ALT/SGPT) 24 U/L (12-78) Alkaline Phosphatase 78 U/L (46-116) Troponin I Pending Pro-B-Type Natriuretic Peptide 692 pg/mL (0-125) H Total Protein 8.0 G/DL (6.4-8.2) Albumin 1.7 G/DL (3.4-5.0) L Globulin 6.3 g/dL Albumin/Globulin Ratio 0.3 (1.0-2.7) L Thyroid Stimulating Hormone (TSH) Pending COBY LEBLANC Jul 11, 2017 09:37
[2017-07-11] MEDS ORDERED: dilTIAZem HCl 25mg/5ml Inj IVP ONE (09:40)
[2017-07-11] MEDS: Meropenem 2 GM in NS 110 ML IVPB SCH ×2 (10:19→22:47)
--- NOTE | 2017-07-11 10:36 | Infectious Diseases Prog Note ---
Assessment/Plan Assessment/Plan Assesment: Septic shock, PNA Scx: MDR- ACB -CXR: Interstitial edema, vascular prominence, borderline cardiomegaly and hazy basilar opacities probably pleural effusions demonstrated. RO UTI; +ve blood cx : CONS 1/2 , ? contaminant Fever Leukocytosis Ctr line 07/07 HTN seizure disorder VDRF SP PEG Plan: -Continue IV Vancomycin # 5 and start Meropenem d# 4 ,add Colistin INH/ IV d # 2 SP Amikacin #2 07/08 -f/u Cx ( blood ) , repeat -Monitor CBC/BMP, temperatures -trach/peg care Subjective Constitutional: Denies: no symptoms, fever, chills, fatigue, anorexia, drenching sweats, other Allergies: Coded Allergies: ASPIRIN (Verified Allergy, Unknown, 07/07/17) Subjective febrile Objective Vital Signs Last 24 Hour Vital Signs Date Time Temp Pulse Resp B/P (MAP) Pulse Ox O2 Delivery O2 Flow Rate FiO2 07/11/17 10:00 112 26 185/80 97 Mechanical Ventilator 35 07/11/17 09:35 101.0 07/11/17 09:20 103 16 100 Mechanical Ventilator 35 07/11/17 09:19 100 16 35 07/11/17 09:08 100 16 98 Mechanical Ventilator 35 07/11/17 09:00 97 35 175/100 100 Mechanical Ventilator 35 07/11/17 08:00 115 07/11/17 08:00 101.0 117 20 170/87 100 Mechanical Ventilator 35 07/11/17 08:00 35 07/11/17 07:29 118 16 35 07/11/17 07:00 130 35 160/20 100 Mechanical Ventilator 35 07/11/17 06:00 105 30 171/74 100 Mechanical Ventilator 35 07/11/17 05:20 102 16 35 07/11/17 05:00 109 22 178/74 100 Mechanical Ventilator 35 07/11/17 04:06 35 07/11/17 04:00 99.2 91 20 166/77 100 Mechanical Ventilator 35 07/11/17 04:00 92 07/11/17 03:09 99 16 35 07/11/17 03:00 94 22 165/72 99 Mechanical Ventilator 35 07/11/17 02:00 86 16 149/74 100 Mechanical Ventilator 35 07/11/17 01:30 80 16 35 07/11/17 01:00 71 16 106/45 100 Mechanical Ventilator 35 07/11/17 00:00 35 07/11/17 00:00 89 07/11/17 00:00 70/42 07/11/17 00:00 99.7 89 16 70/42 100 Mechanical Ventilator 35 07/10/17 23:30 76 16 35 07/10/17 23:00 108 16 146/52 97 Mechanical Ventilator 35 07/10/17 22:40 90 18 100 Mechanical Ventilator 35 07/10/17 22:30 86 16 98 Mechanical Ventilator 35 07/10/17 22:00 84 16 106/52 100 Mechanical Ventilator 35 07/10/17 21:05 91 16 35 07/10/17 21:00 87 16 134/105 100 Mechanical Ventilator 35 07/10/17 20:30 134/105 07/10/17 20:00 101.9 77 16 106/91 100 Mechanical Ventilator 35 07/10/17 20:00 101.9 07/10/17 20:00 77 07/10/17 20:00 35 07/10/17 19:30 89 16 35 07/10/17 19:00 82 16 110/42 100 Mechanical Ventilator 35 07/10/17 18:00 88 17 96/35 100 Mechanical Ventilator 35 07/10/17 17:15 87 16 35 07/10/17 17:00 98 17 142/78 100 Mechanical Ventilator 35 07/10/17 16:00 99.4 105 16 122/54 100 Mechanical Ventilator 35 07/10/17 16:00 94 07/10/17 16:00 35 07/10/17 15:00 98 16 35 07/10/17 15:00 98 17 143/45 100 Mechanical Ventilator 35 07/10/17 14:00 86 17 96/58 100 Mechanical Ventilator 35 07/10/17 13:10 91 16 35 07/10/17 13:00 99 17 107/65 100 Mechanical Ventilator 35 07/10/17 12:00 99.9 97 16 148/67 100 Mechanical Ventilator 35 07/10/17 12:00 68 07/10/17 12:00 35 07/10/17 11:10 77 16 35 07/10/17 11:00 138/73 07/10/17 11:00 83 17 125/52 100 Mechanical Ventilator 35 Height (Feet): 5 Height (Inches): 4.00 Weight (Pounds): 149 HEENT: anicteric Respiratory/Chest: normal breath sounds Cardiovascular: regular rhythm Abdomen: no organomegaly Laboratory Tests Test 07/11/17 04:30 White Blood Count 13.5 K/UL (4.8-10.8) H Red Blood Count 2.98 M/UL (4.20-5.40) L Hemoglobin 9.5 G/DL (12.0-16.0) L Hematocrit 29.0 % (37.0-47.0) L Mean Corpuscular Volume 97 FL (80-99) Mean Corpuscular Hemoglobin 32.0 PG (27.0-31.0) H Mean Corpuscular Hemoglobin Concent 32.8 G/DL (32.0-36.0) Red Cell Distribution Width 14.3 % (11.6-14.8) Platelet Count 316 K/UL (150-450) Mean Platelet Volume 6.8 FL (6.5-10.1) Neutrophils (%) (Auto) 77.9 % (45.0-75.0) H Lymphocytes (%) (Auto) 12.9 % (20.0-45.0) L Monocytes (%) (Auto) 6.8 % (1.0-10.0) Eosinophils (%) (Auto) 1.7 % (0.0-3.0) Basophils (%) (Auto) 0.7 % (0.0-2.0) Sodium Level 149 MMOL/L (136-145) H Potassium Level 3.2 MMOL/L (3.5-5.1) L Chloride Level 114 MMOL/L (98-107) H Carbon Dioxide Level 30 MMOL/L (21-32) Blood Urea Nitrogen 10 mg/dL (7-18) Creatinine 0.9 MG/DL (0.55-1.30) Estimat Glomerular Filtration Rate mL/min (>60) Glucose Level 125 MG/DL (74-106) H Calcium Level 8.6 MG/DL (8.5-10.1) Total Bilirubin 0.2 MG/DL (0.2-1.0) Aspartate Amino Transf (AST/SGOT) 25 U/L (15-37) Alanine Aminotransferase (ALT/SGPT) 24 U/L (12-78) Alkaline Phosphatase 78 U/L (46-116) Troponin I 0.008 ng/mL (0.000-0.056) Pro-B-Type Natriuretic Peptide 692 pg/mL (0-125) H Total Protein 8.0 G/DL (6.4-8.2) Albumin 1.7 G/DL (3.4-5.0) L Globulin 6.3 g/dL Albumin/Globulin Ratio 0.3 (1.0-2.7) L Thyroid Stimulating Hormone (TSH) 2.566 uiU/mL (0.360-3.740) Current Medications Medications (Trade) Dose Ordered Sig/Torsten Route PRN Reason Start Time Stop Time Status Last Admin Dose Admin Acetaminophen (Tylenol) 650 mg Q4H PRN ORAL fever 07/07/17 15:30 08/06/17 15:29 07/10/17 18:53 Chlorhexidine Gluconate (Mariah-Hex 2%) 1 applic DAILY@1999 TOPIC 07/08/17 20:00 08/07/17 19:59 07/10/17 21:24 Colistimethate Sodium (Colistin *inhalation use only*) 75 mg Q12HR@ INH 07/10/17 22:00 07/17/17 21:59 07/11/17 09:17 Colistimethate Sodium (Colistin) 75 mg EVERY 12 HOURS IVP 07/10/17 16:00 07/17/17 15:59 07/11/17 09:09 Diltiazem HCl 125 mg/Dextrose 125 ml @ 5 mls/hr Q24H IV 07/11/17 10:20 07/12/17 10:19 Heparin Sodium (Porcine) (Heparin 5000 units/ml) 5,000 units EVERY 12 HOURS SUBQ 07/07/17 21:00 08/06/17 20:59 07/11/17 09:06 Lorazepam (Ativan 2mg/ml 1ml) 2 mg Q2H PRN IV For Anxiety 07/07/17 15:30 07/14/17 15:29 07/11/17 05:37 Meropenem 2 gm/ Sodium Chloride 110 ml @ 220 mls/hr Q12H IVPB 07/08/17 11:00 07/13/17 10:59 07/11/17 10:19 Morphine Sulfate (Morphine Sulfate) 4 mg Q4H PRN IVP Severe Pain (Pain Scale 7-10) 11/10/17 15:30 07/14/17 15:29 07/11/17 09:05 Norepinephrine Bitartrate 4 mg/ Dextrose 254 ml @ 0 mls/hr Q24H IV 07/07/17 20:30 08/06/17 20:29 07/09/17 02:12 Ondansetron HCl (Zofran) 4 mg Q6H PRN IVP Nausea & Vomiting 07/07/17 15:30 08/06/17 15:29 Pantoprazole (Protonix) 40 mg DAILY IVP 07/08/17 09:00 08/07/17 08:59 07/11/17 09:05 Polyethylene Glycol (Miralax) 17 gm DAILYPRN PRN ORAL Constipation 07/07/17 15:30 08/06/17 15:29 Sodium Chloride 1,000 ml @ 100 mls/hr Q10H IV 07/10/17 11:00 08/09/17 10:59 07/11/17 07:00 Vancomycin HCl (Vanco rx to dose) 1 ea DAILY PRN MISC PER RX PROTOCOL 07/08/17 10:45 08/07/17 10:44 Vancomycin HCl 1 gm/Dextrose 250 ml @ 166.636 mls/hr Q24H IVPB 07/08/17 16:00 07/13/17 15:59 07/10/17 16:46 COLBY BRICENO M.D. Jul 11, 2017 10:36
[2017-07-11] MEDS ORDERED: dilTIAZem HCl 25mg/5ml Inj IVP PRN (11:30)
--- NOTE | 2017-07-11 11:33 | Diagnostic Imaging Report ---
Indication: DYSPNEA Technique: One view of the chest Comparison: 07/10/2017 Findings: Bilateral diffuse interstitial and alveolar opacities appear unchanged. There is slight blunting of left costophrenic sulcus which was not evident previously. Right subclavian central venous catheter, tracheostomy are again demonstrated. Impression: Possible new or increased left pleural effusion. Otherwise, essentially stable over one day, findings as described
[2017-07-11] MEDS ORDERED: KCl 10% 40mEq/30ml liquid GT ONE (13:45)
[2017-07-11] MEDS ORDERED: NS 275ml ONE (14:30)
[2017-07-11] MEDS ORDERED: Tubing IV Blood Pump IV ONE (14:30)
[2017-07-11 15:21] LABS: A/G RATIO 0.4 (0.7-1.7); ABNORMAL PROTEIN BAND 1 Not Observed g/dL (Not Observed); ALPHA-1 GLOBULIN 0.4 g/dL (0.0-0.4); ALPHA-2 GLOBULIN 1.3 g/dL (0.4-1.0); GAMMA GLOBULIN 2.3 g/dL (0.4-1.8); GLOBULIN, TOTAL 5.1 g/dL (2.2-3.9); TOTAL PROTEIN 7.1 g/dL (6.0-8.5)
--- NOTE | 2017-07-11 17:01 | Internal Med Progress Note ---
Subjective Date of Service: Jul 11, 2017 Physician Name Tomi Sim Attending Physician Ho Mcghee MD Current Medications Medications (Trade) Dose Ordered Sig/Torsten Route PRN Reason Start Time Stop Time Status Last Admin Dose Admin Acetaminophen (Tylenol) 650 mg Q4H PRN ORAL fever 07/07/17 15:30 08/06/17 15:29 07/10/17 18:53 Chlorhexidine Gluconate (Mariah-Hex 2%) 1 applic DAILY@1999 TOPIC 07/08/17 20:00 08/07/17 19:59 07/10/17 21:24 Colistimethate Sodium (Colistin *inhalation use only*) 75 mg Q12HR@10, INH 07/10/17 22:00 07/17/17 21:59 07/11/17 09:17 Colistimethate Sodium (Colistin) 75 mg EVERY 12 HOURS IVP 07/10/17 16:00 07/17/17 15:59 07/11/17 09:09 Diltiazem HCl (Cardizem) 15 mg Q1H PRN IVP HR > 120 BPM 07/11/17 11:30 08/10/17 11:29 Heparin Sodium (Porcine) (Heparin 5000 units/ml) 5,000 units EVERY 12 HOURS SUBQ 07/07/17 21:00 08/06/17 20:59 07/11/17 09:06 Lorazepam (Ativan 2mg/ml 1ml) 2 mg Q2H PRN IV For Anxiety 07/07/17 15:30 07/14/17 15:29 07/11/17 05:37 Meropenem 2 gm/ Sodium Chloride 110 ml @ 220 mls/hr Q12H IVPB 07/08/17 11:00 07/13/17 10:59 07/11/17 10:19 Morphine Sulfate (Morphine Sulfate) 4 mg Q4H PRN IVP Severe Pain (Pain Scale 7-10) 07/07/17 15:30 07/14/17 15:29 07/11/17 09:05 Norepinephrine Bitartrate 4 mg/ Dextrose 254 ml @ 0 mls/hr Q24H IV 07/07/17 20:30 08/06/17 20:29 07/09/17 02:12 Ondansetron HCl (Zofran) 4 mg Q6H PRN IVP Nausea & Vomiting 07/07/17 15:30 08/06/17 15:29 Pantoprazole (Protonix) 40 mg DAILY IVP 07/08/17 09:00 08/07/17 08:59 07/11/17 09:05 Polyethylene Glycol (Miralax) 17 gm DAILYPRN PRN ORAL Constipation 07/07/17 15:30 08/06/17 15:29 Sodium Chloride 1,000 ml @ 100 mls/hr Q10H IV 07/10/17 11:00 08/09/17 10:59 07/11/17 16:33 Vancomycin HCl (Vanco rx to dose) 1 ea DAILY PRN MISC PER RX PROTOCOL 07/08/17 10:45 08/07/17 10:44 Vancomycin HCl 1 gm/Dextrose 250 ml @ 166.636 mls/hr Q24H IVPB 07/08/17 16:00 07/13/17 15:59 07/11/17 16:00 Allergies: Coded Allergies: ASPIRIN (Verified Allergy, Unknown, 07/07/17) ROS Limited/Unobtainable: Yes Subjective 82 YO F admitted with hypotension and pneumonia. ICU. Intubated and sedated. Continues on levophed. Await bioethics eval. Cover for Int Med-dr Mcghee. Objective Last Vital Signs Date Time Temp Pulse Resp B/P (MAP) Pulse Ox O2 Delivery O2 Flow Rate FiO2 07/11/17 16:33 80 16 35 07/11/17 16:00 97.4 112/60 100 Mechanical Ventilator 07/07/17 18:27 15.0 Laboratory Tests Test 07/11/17 04:30 White Blood Count 13.5 K/UL (4.8-10.8) H Red Blood Count 2.98 M/UL (4.20-5.40) L Hemoglobin 9.5 G/DL (12.0-16.0) L Hematocrit 29.0 % (37.0-47.0) L Mean Corpuscular Volume 97 FL (80-99) Mean Corpuscular Hemoglobin 32.0 PG (27.0-31.0) H Mean Corpuscular Hemoglobin Concent 32.8 G/DL (32.0-36.0) Red Cell Distribution Width 14.3 % (11.6-14.8) Platelet Count 316 K/UL (150-450) Mean Platelet Volume 6.8 FL (6.5-10.1) Neutrophils (%) (Auto) 77.9 % (45.0-75.0) H Lymphocytes (%) (Auto) 12.9 % (20.0-45.0) L Monocytes (%) (Auto) 6.8 % (1.0-10.0) Eosinophils (%) (Auto) 1.7 % (0.0-3.0) Basophils (%) (Auto) 0.7 % (0.0-2.0) Sodium Level 149 MMOL/L (136-145) H Potassium Level 3.2 MMOL/L (3.5-5.1) L Chloride Level 114 MMOL/L (98-107) H Carbon Dioxide Level 30 MMOL/L (21-32) Blood Urea Nitrogen 10 mg/dL (7-18) Creatinine 0.9 MG/DL (0.55-1.30) Estimat Glomerular Filtration Rate mL/min (>60) Glucose Level 125 MG/DL (74-106) H Calcium Level 8.6 MG/DL (8.5-10.1) Total Bilirubin 0.2 MG/DL (0.2-1.0) Aspartate Amino Transf (AST/SGOT) 25 U/L (15-37) Alanine Aminotransferase (ALT/SGPT) 24 U/L (12-78) Alkaline Phosphatase 78 U/L (46-116) Troponin I 0.008 ng/mL (0.000-0.056) Pro-B-Type Natriuretic Peptide 692 pg/mL (0-125) H Total Protein 8.0 G/DL (6.4-8.2) Albumin 1.7 G/DL (3.4-5.0) L Globulin 6.3 g/dL Albumin/Globulin Ratio 0.3 (1.0-2.7) L Thyroid Stimulating Hormone (TSH) 2.566 uiU/mL (0.360-3.740) Intake and Output 07/11/17 07/12/17 19:00 07:00 Intake Total 1305 ml Balance 1305 ml IV Total 710 ml Tube Feeding 495 ml Other 100 ml Objective General Appearance: WD/WN, moderate distress, lethargic EENT: PERRL/EOMI, normal ENT inspection Neck: trach; non-tender, normal alignment, supple, other - tracheostomy Cardiovascular: normal peripheral pulses, normal rate, regular rhythm, no gallop/murmur, no JVD Respiratory/Chest: Mechanical vent; chest wall non-tender, crackles/rales, rhonchi - bilaterally, expiratory wheezing Abdomen: normal bowel sounds, non tender, soft, no organomegaly, no mass Extremities: non-tender Neurologic: first line supervisor II-XII grossly normal Skin: normal pigmentation, warm/dry Assessment/Plan Problem List: (1) Fever (2) Hypotension Assessment & Plan: Due to Sepsis-Cont levophed and antibiotics. (3) Sepsis Assessment & Plan: Await cultures. Cont vanco and meropenem per ID (4) Respiratory failure Assessment & Plan: Due to pneumonia. Cont mech vent-see pulmonary note. (5) Tracheostomy care (6) HTN (hypertension) Assessment & Plan: Current hypotensive. (7) Seizure disorder (8) Dysphagia Assessment & Plan: G-tube feeds per GI (9) Pneumonia (10) Septic shock (11) Anemia Assessment & Plan: Worsening; S/P transfusion 2 unit PRBC 07/09/17 (12) Hypernatremia Assessment & Plan: Change IV fluid to 1/2 NS Status: not improved Assessment/Plan Await bioethics TOMI Steinberg Jul 11, 2017 17:01
--- NOTE | 2017-07-11 18:00 | Consultation ---
DATE OF CONSULTATION: 07/11/2017 CARDIOLOGY CONSULTATION CONSULTING PHYSICIAN: Meng Lang M.D. REFERRING PHYSICIAN: Sue Yu M.D. REASON FOR CONDITION: Atrial fibrillation. HISTORY OF PRESENT ILLNESS: This is an elderly female, who is really unable to provide any meaningful history whatsoever. The patient has history of multiple medical problems. The patient is basically completely bedbound in [facility], admitted with abnormal mentation at rest. Apparently, she had some fevers and possible pneumonia, started on antibiotics, and because of the pneumonia was transferred to the emergency room at [facility] where she has been admitted. Initially felt to be in sinus rhythm, subsequently felt to be in atrial fibrillation, therefore, this consultation was requested. She is unable to provide any information, whatsoever. Information was obtained from review of the patient's chart, industrial economist run sheet, as well as my discussion with the nursing staff. PAST MEDICAL HISTORY: According to some records and the chart is positive for history of hypertension, advanced dementia, cognitive dysfunction, aspiration, G-tube placement, metabolic encephalopathy, schizophrenia, apparently prior admissions elsewhere, acute renal failure, and dehydration in the past. The patient has a tracheostomy and ventilator dependent. She has had a history of glaucoma as well as seizures, convulsion disorder, sleep apnea, tachycardia, and insomnia. MEDICATIONS: Her medications at the convalescent facility are enteral feedings. She is also on Tylenol p.r.n., albuterol inhaler, Atrovent, latanoprost solution for eye drops, Ativan p.r.n., Namenda, milk of magnesia, trazodone 50 mg at nighttime, valproic acid, and vitamin C. ALLERGIES: She is reportedly allergic to aspirin. SOCIAL HISTORY: She does not smoke or drink at the present time, although I am not sure if she has done so recently as she lives in a convalescent facility. PHYSICAL EXAMINATION: GENERAL: Physical examination shows her to be an elderly female, on a mechanical ventilator. LUNGS: Appear to be clear to auscultation and percussion. CARDIAC: Irregular, tachycardic. ABDOMEN: Soft and obese. Positive bowel sounds. Nontender. EXTREMITIES: There is no edema. NEUROLOGIC: Not communicative, not responsive. LABORATORY AND DIAGNOSTIC DATA: Chest x-ray performed shows right subclavian central line, diffuse interstitial disease, similar to previous examination. The patient has an EKG just performed that shows to be irregularly irregular, a discrete atrial activity is not noted, and suspected for atrial fibrillation. QRS axis appears to be normal. There are some nonspecific T-wave changes. Rhythm strips are also reviewed, 12-lead, as well. Laboratories, she had white count as high as 16.6, right now 13.5 with the hemoglobin lowest at 6.6 on 07/09/2017, now 9.5 and a platelet count of 316. Blood gases, pH of 7.38, pCO2 of 44, pO2 of 91, bicarbonate of 26. Sodium is 149, down from 155; potassium 3.2; chloride 114; bicarbonate of 30; BUN of 10; creatinine 0.9, glucose of 125. Lactic acid is only 1.6. ProBNP is only 692. She has had protein electrophoresis drawn, the result of which is pending. She had one set of troponins on 07/07/2017 at 0.062 that was not repeated. Magnesium last was 1.9 yesterday and total CK was 57 a few days ago. AST and ALT within normal limits. Her urinalysis shows 15 to 20 WBCs and 2+ leukocyte esterase. ASSESSMENT AND PLAN: 1. Tachycardia consistent with atrial fibrillation, ventricular response being rather rapid. 2. Pulmonary infiltrates. 3. Chronic respiratory failure, on a ventilator. 4. Anemia. 5. Hypernatremia. 6. Gastrostomy tube dependence. 7. Ventilator dependence. Dr. Mcghee and Dr. Yu, this patient was seen in cardiac consultation. Initial concerns for atrial fibrillation seem to be confirmed because of lack of discrete atrial activity on EKG and it may be best that she be treated with some amiodarone to control her rate and possibly convert back her to the sinus. I doubt that she will be a candidate for cardioversion, need to be considering anticoagulation, although I am not sure that would make much difference overall, but from my thromboembolic point of view with atrial fibrillation that may be necessary for its prevention secondary to significant morbidity. Meng Lang M.D. DR: Niles JOB#: [id number] CC:
[2017-07-11] MEDS: Dyna-Hex 2% Top Sol 2oz TOPIC SCH (20:21)
[2017-07-12] VITALS (15 sets, daily range): BP systolic 102–145; BP diastolic 30–100
[2017-07-12 05:10] LABS: MEAN CORPUSCULAR HEMOGLOBIN 30.6 PG (27.0-31.0); MEAN CORPUSCULAR HGB CONC 31.2 G/DL (32.0-36.0); MEAN CORPUSCULAR VOLUME 98 FL (80-99); MEAN PLATELET VOLUME 7.2 FL (6.5-10.1); PLATELET COUNT 290 K/UL (150-450); RED BLOOD COUNT 2.52 M/UL (4.20-5.40); RED CELL DISTRIBUTION WIDTH 14.4 % (11.6-14.8)
[2017-07-12] MEDS: LORazepam Inj 2mg/ml 1ml IV PRN (05:14)
[2017-07-12 06:08] LABS: ALANINE AMINOTRANSFERASE 25 U/L (12-78); ALBUMIN/GLOBULIN RATIO 0.3 (1.0-2.7); ANION GAP 5 mmol/L (5-15); ASPARTATE AMINO TRANSFERASE 28 U/L (15-37); CALCIUM 8.6 MG/DL (8.5-10.1); CARBON DIOXIDE 31 MMOL/L (21-32); CHLORIDE 114 MMOL/L (98-107); CREATININE 0.9 MG/DL (0.55-1.30); MAGNESIUM 1.7 MG/DL (1.8-2.4); PHOSPHORUS 2.1 MG/DL (2.5-4.9); POTASSIUM 3.8 MMOL/L (3.5-5.1); SODIUM 150 MMOL/L (136-145); TOTAL PROTEIN 7.3 G/DL (6.4-8.2)
[2017-07-12] MEDS: Colistin 150mg vial IVP SCH ×2 (07:02→20:33)
[2017-07-12 08:10] LABS: ABG BASE EXCESS 4.4; ABG PCO2 49.9 mmHg (35.0-45.0)
[2017-07-12] MEDS: Pantoprazole Inj IVP SCH (08:31)
[2017-07-12] MEDS: Heparin 5000 units/ml inj SUBQ SCH ×2 (08:32→20:34)
[2017-07-12 09:58] LABS: BAND NEUTROPHILS % (MANUAL) 1 % (0-8); BASOPHILS % (MANUAL) 0 % (0-2); EOSINOPHILS % (MANUAL) 2 % (0-3); LYMPHOCYTES % (MANUAL) 22 % (20-45); NEUTROPHILS % (MANUAL) 70 % (45-75); PLATELET ESTIMATE ADEQUATE; PLATELET MORPHOLOGY NORMAL; TOTAL CELLS COUNTED 100
[2017-07-12 09:59] LABS: HYPOCHROMASIA 1+; MACROCYTES 1+
--- NOTE | 2017-07-12 10:35 | Infectious Diseases Prog Note ---
Assessment/Plan Assessment/Plan Assesment: Septic shock, SP PNA Scx: MDR- ACB -CXR: Interstitial edema, vascular prominence, borderline cardiomegaly and hazy basilar opacities probably pleural effusions demonstrated. +ve blood cx : CONS 1/2 , ? contaminant Fever Leukocytosis Ctr line 07/07 HTN seizure disorder VDRF SP PEG Plan: -Continue IV Vancomycin # 6 and start Meropenem d# 5 ,add Colistin INH/ IV d# 3 , may add Tygacil and DC IV Vanco if pt does not improve SP Amikacin #2 07/08 -f/u Cx ( blood ) , repeat -Monitor CBC/BMP, temperatures -trach/peg care Subjective Allergies: Coded Allergies: ASPIRIN (Verified Allergy, Unknown, 07/07/17) Subjective febrile Objective Vital Signs Last 24 Hour Vital Signs Date Time Temp Pulse Resp B/P (MAP) Pulse Ox O2 Delivery O2 Flow Rate FiO2 07/12/17 10:00 98.7 86 22 138/68 100 Mechanical Ventilator 35 07/12/17 09:43 97 23 35 07/12/17 08:00 98.8 84 21 130/63 100 Mechanical Ventilator 35 07/12/17 08:00 94 07/12/17 08:00 35 07/12/17 07:04 85 16 100 Mechanical Ventilator 35 07/12/17 07:03 83 16 35 07/12/17 07:00 99.9 86 19 130/51 98 Mechanical Ventilator 35 07/12/17 06:55 84 16 100 Mechanical Ventilator 35 07/12/17 06:00 85 23 114/45 98 Mechanical Ventilator 35 07/12/17 05:10 70 17 35 07/12/17 05:00 87 21 114/100 98 Mechanical Ventilator 35 07/12/17 04:00 100.0 77 19 110/45 98 Mechanical Ventilator 35 07/12/17 04:00 77 07/12/17 04:00 35 07/12/17 03:00 82 20 104/48 97 Mechanical Ventilator 35 07/12/17 02:39 86 16 35 07/12/17 02:00 67 16 109/43 100 Mechanical Ventilator 35 07/12/17 01:00 63 16 102/64 100 Mechanical Ventilator 35 07/12/17 00:45 72 16 35 07/12/17 00:00 35 07/12/17 00:00 99.6 66 16 104/66 100 Mechanical Ventilator 35 07/11/17 23:12 64 16 35 07/11/17 23:00 80 16 87/39 100 Mechanical Ventilator 35 07/11/17 22:00 64 16 147/108 100 Mechanical Ventilator 35 07/11/17 21:30 76 16 100 Mechanical Ventilator 35 07/11/17 21:17 62 16 100 Mechanical Ventilator 35 07/11/17 21:16 62 16 35 07/11/17 21:00 81 16 99/42 100 Mechanical Ventilator 35 07/11/17 20:30 147/108 07/11/17 20:00 99.2 77 17 102/73 100 Mechanical Ventilator 35 07/11/17 20:00 77 07/11/17 20:00 35 07/11/17 19:10 86 22 35 07/11/17 19:00 72 23 112/44 97 Mechanical Ventilator 35 07/11/17 18:00 101 23 110/45 97 Mechanical Ventilator 35 07/11/17 17:00 83 24 130/60 97 Mechanical Ventilator 35 07/11/17 16:33 80 16 35 07/11/17 16:00 81 07/11/17 16:00 97.4 76 20 112/60 100 Mechanical Ventilator 35 07/11/17 16:00 35 07/11/17 15:00 87 24 121/67 97 Mechanical Ventilator 35 07/11/17 14:57 94 17 35 07/11/17 14:00 94 25 138/66 97 Mechanical Ventilator 35 07/11/17 13:00 99 25 148/64 97 Mechanical Ventilator 35 07/11/17 13:00 101 16 35 07/11/17 12:00 35 07/11/17 12:00 106 07/11/17 12:00 99.7 105 20 166/74 100 Mechanical Ventilator 35 07/11/17 11:10 113 16 35 07/11/17 11:00 113 26 156/66 97 Mechanical Ventilator 35 Height (Feet): 5 Height (Inches): 4.00 Weight (Pounds): 155 HEENT: anicteric Respiratory/Chest: chest wall non-tender Cardiovascular: regularly irregular Abdomen: no organomegaly Microbiology Date/Time Source Procedure Growth Status 07/10/17 16:10 Blood Blood Culture - Preliminary NO GROWTH AFTER 24 HOURS Resulted 07/10/17 14:30 Blood Blood Culture - Preliminary NO GROWTH AFTER 24 HOURS Resulted Laboratory Tests Test 07/12/17 04:00 07/12/17 07:45 White Blood Count 13.0 K/UL (4.8-10.8) H Red Blood Count 2.52 M/UL (4.20-5.40) L Hemoglobin 7.7 G/DL (12.0-16.0) L Hematocrit 24.7 % (37.0-47.0) L Mean Corpuscular Volume 98 FL (80-99) Mean Corpuscular Hemoglobin 30.6 PG (27.0-31.0) Mean Corpuscular Hemoglobin Concent 31.2 G/DL (32.0-36.0) L Red Cell Distribution Width 14.4 % (11.6-14.8) Platelet Count 290 K/UL (150-450) Mean Platelet Volume 7.2 FL (6.5-10.1) Neutrophils (%) (Auto) % (45.0-75.0) Lymphocytes (%) (Auto) % (20.0-45.0) Monocytes (%) (Auto) % (1.0-10.0) Eosinophils (%) (Auto) % (0.0-3.0) Basophils (%) (Auto) % (0.0-2.0) Differential Total Cells Counted 100 Neutrophils % (Manual) 70 % (45-75) Lymphocytes % (Manual) 22 % (20-45) Monocytes % (Manual) 5 % (1-10) Eosinophils % (Manual) 2 % (0-3) Basophils % (Manual) 0 % (0-2) Band Neutrophils 1 % (0-8) Platelet Estimate Adequate Platelet Morphology Normal Hypochromasia 1+ Macrocytosis 1+ Sodium Level 150 MMOL/L (136-145) H Potassium Level 3.8 MMOL/L (3.5-5.1) Chloride Level 114 MMOL/L (98-107) H Carbon Dioxide Level 31 MMOL/L (21-32) Anion Gap 5 mmol/L (5-15) Blood Urea Nitrogen 12 mg/dL (7-18) Creatinine 0.9 MG/DL (0.55-1.30) Estimat Glomerular Filtration Rate mL/min (>60) Glucose Level 90 MG/DL (74-106) Calcium Level 8.6 MG/DL (8.5-10.1) Phosphorus Level 2.1 MG/DL (2.5-4.9) L Magnesium Level 1.7 MG/DL (1.8-2.4) L Total Bilirubin 0.2 MG/DL (0.2-1.0) Aspartate Amino Transf (AST/SGOT) 28 U/L (15-37) Alanine Aminotransferase (ALT/SGPT) 25 U/L (12-78) Alkaline Phosphatase 74 U/L (46-116) Troponin I 0.020 ng/mL (0.000-0.056) Total Protein 7.3 G/DL (6.4-8.2) Albumin 1.5 G/DL (3.4-5.0) L Globulin 5.8 g/dL Albumin/Globulin Ratio 0.3 (1.0-2.7) L Arterial Blood pH 7.390 (7.350-7.450) Arterial Blood Partial Pressure CO2 49.9 mmHg (35.0-45.0) H Arterial Blood Partial Pressure O2 87.6 mmHg (75.0-100.0) Arterial Blood HCO3 29.9 mmol/L (22.0-26.0) H Arterial Blood Oxygen Saturation 96.3 % (92.0-98.0) Arterial Blood Base Excess 4.4 Luís Test N/a Current Medications Medications (Trade) Dose Ordered Sig/Torsten Route PRN Reason Start Time Stop Time Status Last Admin Dose Admin Acetaminophen (Tylenol) 650 mg Q4H PRN ORAL fever 07/07/17 15:30 08/06/17 15:29 07/10/17 18:53 Chlorhexidine Gluconate (Mariah-Hex 2%) 1 applic DAILY@1999 TOPIC 07/08/17 20:00 08/07/17 19:59 07/11/17 20:21 Colistimethate Sodium (Colistin *inhalation use only*) 75 mg Q12HR@ INH 07/10/17 22:00 07/17/17 21:59 07/11/17 21:18 Colistimethate Sodium (Colistin) 75 mg EVERY 12 HOURS IVP 07/10/17 16:00 07/17/17 15:59 07/12/17 07:02 Diltiazem HCl (Cardizem) 15 mg Q1H PRN IVP HR > 120 BPM 07/11/17 11:30 08/10/17 11:29 Heparin Sodium (Porcine) (Heparin 5000 units/ml) 5,000 units EVERY 12 HOURS SUBQ 07/07/17 21:00 08/06/17 20:59 07/12/17 08:32 Lorazepam (Ativan 2mg/ml 1ml) 2 mg Q2H PRN IV For Anxiety 07/07/17 15:30 07/14/17 15:29 07/12/17 05:14 Meropenem 2 gm/ Sodium Chloride 110 ml @ 220 mls/hr Q12H IVPB 07/08/17 11:00 07/13/17 10:59 07/11/17 22:47 Morphine Sulfate (Morphine Sulfate) 4 mg Q4H PRN IVP Severe Pain (Pain Scale 7-10) 07/07/17 15:30 07/14/17 15:29 07/11/17 09:05 Norepinephrine Bitartrate 4 mg/ Dextrose 254 ml @ 0 mls/hr Q24H IV 07/07/17 20:30 08/06/17 20:29 07/09/17 02:12 Ondansetron HCl (Zofran) 4 mg Q6H PRN IVP Nausea & Vomiting 07/07/17 15:30 08/06/17 15:29 Pantoprazole (Protonix) 40 mg DAILY IVP 07/08/17 09:00 08/07/17 08:59 07/12/17 08:31 Polyethylene Glycol (Miralax) 17 gm DAILYPRN PRN ORAL Constipation 07/07/17 15:30 08/06/17 15:29 Sodium Chloride 1,000 ml @ 100 mls/hr Q10H IV 07/10/17 11:00 08/09/17 10:59 07/12/17 05:57 Vancomycin HCl (Vanco rx to dose) 1 ea DAILY PRN MISC PER RX PROTOCOL 07/08/17 10:45 08/07/17 10:44 Vancomycin HCl 1 gm/Dextrose 250 ml @ 166.636 mls/hr Q24H IVPB 07/08/17 16:00 07/13/17 15:59 07/11/17 16:00 COLBY BRICENO M.D. Jul 12, 2017 10:35
--- NOTE | 2017-07-12 10:58 | Diagnostic Imaging Report ---
Indication: DYSPNEA Technique: One view of the chest Comparison: 07/11/2017 Findings: Bilateral diffuse interstitial and alveolar clinical opacities are. There is increased pleural fluid on the left. Right subclavian central venous catheter is again demonstrated Impression: Increased left pleural effusion. Otherwise, little knife changer one day
--- NOTE | 2017-07-12 11:23 | Pulmonolgy Critical Care Note ---
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, consultants, immigration case workerbridge club manager - Objective Last 24 Hour Vital Signs Date Time Temp Pulse Resp B/P (MAP) Pulse Ox O2 Delivery O2 Flow Rate FiO2 07/12/17 10:57 92 21 35 07/12/17 10:00 98.7 86 22 138/68 100 Mechanical Ventilator 35 07/12/17 09:43 97 23 35 07/12/17 08:00 98.8 84 21 130/63 100 Mechanical Ventilator 35 07/12/17 08:00 94 07/12/17 08:00 35 07/12/17 07:04 85 16 100 Mechanical Ventilator 35 07/12/17 07:03 83 16 35 07/12/17 07:00 99.9 86 19 130/51 98 Mechanical Ventilator 35 07/12/17 06:55 84 16 100 Mechanical Ventilator 35 07/12/17 06:00 85 23 114/45 98 Mechanical Ventilator 35 07/12/17 05:10 70 17 35 07/12/17 05:00 87 21 114/100 98 Mechanical Ventilator 35 07/12/17 04:00 100.0 77 19 110/45 98 Mechanical Ventilator 35 07/12/17 04:00 77 07/12/17 04:00 35 07/12/17 03:00 82 20 104/48 97 Mechanical Ventilator 35 07/12/17 02:39 86 16 35 07/12/17 02:00 67 16 109/43 100 Mechanical Ventilator 35 07/12/17 01:00 63 16 102/64 100 Mechanical Ventilator 35 07/12/17 00:45 72 16 35 07/12/17 00:00 35 07/12/17 00:00 99.6 66 16 104/66 100 Mechanical Ventilator 35 07/11/17 23:12 64 16 35 07/11/17 23:00 80 16 87/39 100 Mechanical Ventilator 35 07/11/17 22:00 64 16 147/108 100 Mechanical Ventilator 35 07/11/17 21:30 76 16 100 Mechanical Ventilator 35 07/11/17 21:17 62 16 100 Mechanical Ventilator 35 07/11/17 21:16 62 16 35 07/11/17 21:00 81 16 99/42 100 Mechanical Ventilator 35 07/11/17 20:30 147/108 07/11/17 20:00 99.2 77 17 102/73 100 Mechanical Ventilator 35 07/11/17 20:00 77 07/11/17 20:00 35 07/11/17 19:10 86 22 35 07/11/17 19:00 72 23 112/44 97 Mechanical Ventilator 35 07/11/17 18:00 101 23 110/45 97 Mechanical Ventilator 35 07/11/17 17:00 83 24 130/60 97 Mechanical Ventilator 35 07/11/17 16:33 80 16 35 07/11/17 16:00 81 07/11/17 16:00 97.4 76 20 112/60 100 Mechanical Ventilator 35 07/11/17 16:00 35 07/11/17 15:00 87 24 121/67 97 Mechanical Ventilator 35 07/11/17 14:57 94 17 35 07/11/17 14:00 94 25 138/66 97 Mechanical Ventilator 35 07/11/17 13:00 99 25 148/64 97 Mechanical Ventilator 35 07/11/17 13:00 101 16 35 07/11/17 12:00 35 07/11/17 12:00 106 07/11/17 12:00 99.7 105 20 166/74 100 Mechanical Ventilator 35 Status: awake Condition: critical HEENT: atraumatic, normocephalic Lungs: clear Heart: HR/BP stable Abdomen: soft, non-tender, feeding tube Extremities: no C/C/E, edema Micro: Microbiology Date/Time Source Procedure Growth Status 07/10/17 16:10 Blood Blood Culture - Preliminary NO GROWTH AFTER 24 HOURS Resulted 07/10/17 14:30 Blood Blood Culture - Preliminary NO GROWTH AFTER 24 HOURS Resulted Critical Care - Subjective ROS Limited/Unobtainable: No ICU Day: 5 Condition: critical EKG Rhythm: Sinus Rhythm FI02: 35 Vent Support Breath Rate: 16 Vent Support Mode: AC Vent Tidal Volume: 600 Sputum Amount: Large PEEP: 0.0 PIP: 29 Fluids: 1/2 NS 100 cc.hour Tube Feeding Amount: 55 I&O: Intake and Output 07/12/17 07/13/17 19:00 07:00 Intake Total 165 ml Output Total 20 ml Balance 145 ml Tube Feeding 165 ml Output Urine Total 20 ml CXR: bilateral pneumonia Labs: Laboratory Tests Test 07/12/17 04:00 07/12/17 07:45 White Blood Count 13.0 K/UL (4.8-10.8) H Red Blood Count 2.52 M/UL (4.20-5.40) L Hemoglobin 7.7 G/DL (12.0-16.0) L Hematocrit 24.7 % (37.0-47.0) L Mean Corpuscular Volume 98 FL (80-99) Mean Corpuscular Hemoglobin 30.6 PG (27.0-31.0) Mean Corpuscular Hemoglobin Concent 31.2 G/DL (32.0-36.0) L Red Cell Distribution Width 14.4 % (11.6-14.8) Platelet Count 290 K/UL (150-450) Mean Platelet Volume 7.2 FL (6.5-10.1) Neutrophils (%) (Auto) % (45.0-75.0) Lymphocytes (%) (Auto) % (20.0-45.0) Monocytes (%) (Auto) % (1.0-10.0) Eosinophils (%) (Auto) % (0.0-3.0) Basophils (%) (Auto) % (0.0-2.0) Differential Total Cells Counted 100 Neutrophils % (Manual) 70 % (45-75) Lymphocytes % (Manual) 22 % (20-45) Monocytes % (Manual) 5 % (1-10) Eosinophils % (Manual) 2 % (0-3) Basophils % (Manual) 0 % (0-2) Band Neutrophils 1 % (0-8) Platelet Estimate Adequate Platelet Morphology Normal Hypochromasia 1+ Macrocytosis 1+ Sodium Level 150 MMOL/L (136-145) H Potassium Level 3.8 MMOL/L (3.5-5.1) Chloride Level 114 MMOL/L (98-107) H Carbon Dioxide Level 31 MMOL/L (21-32) Anion Gap 5 mmol/L (5-15) Blood Urea Nitrogen 12 mg/dL (7-18) Creatinine 0.9 MG/DL (0.55-1.30) Estimat Glomerular Filtration Rate mL/min (>60) Glucose Level 90 MG/DL (74-106) Calcium Level 8.6 MG/DL (8.5-10.1) Phosphorus Level 2.1 MG/DL (2.5-4.9) L Magnesium Level 1.7 MG/DL (1.8-2.4) L Total Bilirubin 0.2 MG/DL (0.2-1.0) Aspartate Amino Transf (AST/SGOT) 28 U/L (15-37) Alanine Aminotransferase (ALT/SGPT) 25 U/L (12-78) Alkaline Phosphatase 74 U/L (46-116) Troponin I 0.020 ng/mL (0.000-0.056) Total Protein 7.3 G/DL (6.4-8.2) Albumin 1.5 G/DL (3.4-5.0) L Globulin 5.8 g/dL Albumin/Globulin Ratio 0.3 (1.0-2.7) L Arterial Blood pH 7.390 (7.350-7.450) Arterial Blood Partial Pressure CO2 49.9 mmHg (35.0-45.0) H Arterial Blood Partial Pressure O2 87.6 mmHg (75.0-100.0) Arterial Blood HCO3 29.9 mmol/L (22.0-26.0) H Arterial Blood Oxygen Saturation 96.3 % (92.0-98.0) Arterial Blood Base Excess 4.4 Luís Test N/a COBY LEBLANC Jul 12, 2017 11:23
[2017-07-12] MEDS: Colistin for inhalation INH SCH ×2 (11:36→21:23)
[2017-07-12] MEDS: Meropenem 2 GM in NS 110 ML IVPB SCH ×2 (12:47→23:05)
[2017-07-12] MEDS ORDERED: dilTIAZem HCl 25mg/5ml Inj IVP PRN (14:30)
[2017-07-12] MEDS ORDERED: LORazepam Inj 2mg/ml 1ml IV PRN (15:30)
[2017-07-12] MEDS ORDERED: Miralax 17gm pkt ORAL PRN (15:30)
[2017-07-12] MEDS ORDERED: Morphine Sulfate 4mg/ml Inj IVP PRN (15:30)
[2017-07-12] MEDS ORDERED: Sodium Phosphate 30 MM in NS 275 ML IVPB ONE (16:15)
--- NOTE | 2017-07-12 16:23 | Cardiology Report ---
APPROVED REPORT EKG Measurement Heart [id number] [place] [id number] Normal sinus rhythm Normal ECG
--- NOTE | 2017-07-12 16:47 | Cardiology Report ---
APPROVED REPORT EKG Measurement Heart [id number] [place] [id number] A. Fib with rapid ventricular response. Cannot rule out Inferior infarct, age undetermined Abnormal ECG
--- NOTE | 2017-07-12 18:00 | Internal Med Progress Note ---
Subjective Physician Name Ho Mcghee Attending Physician Ho Mcghee MD Current Medications Medications (Trade) Dose Ordered Sig/Torsten Route PRN Reason Start Time Stop Time Status Last Admin Dose Admin Acetaminophen (Tylenol) 650 mg Q4H PRN ORAL fever 07/12/17 15:00 08/06/17 14:59 Chlorhexidine Gluconate (Mariah-Hex 2%) 1 applic DAILY@2000 TOPIC 07/12/17 20:00 08/07/17 19:59 Colistimethate Sodium (Colistin *inhalation use only*) 75 mg Q12HR@10,22 INH 07/12/17 22:00 07/17/17 21:59 Colistimethate Sodium (Colistin) 75 mg EVERY 12 HOURS IVP 07/12/17 21:00 07/17/17 15:59 Diltiazem HCl (Cardizem) 15 mg Q1H PRN IVP HR > 120 BPM 07/12/17 14:30 08/10/17 11:29 Heparin Sodium (Porcine) (Heparin 5000 units/ml) 5,000 units EVERY 12 HOURS SUBQ 07/12/17 21:00 08/06/17 20:59 Lorazepam (Ativan 2mg/ml 1ml) 2 mg Q2H PRN IV For Anxiety 07/12/17 15:30 07/14/17 15:29 Meropenem 2 gm/ Sodium Chloride 110 ml @ 220 mls/hr Q12HR@1100,2300 IVPB 07/12/17 23:00 07/17/17 22:59 Morphine Sulfate (Morphine Sulfate) 4 mg Q4H PRN IVP Severe Pain (Pain Scale 7-10) 07/12/17 15:30 07/14/17 15:29 Ondansetron HCl (Zofran) 4 mg Q6H PRN IVP Nausea & Vomiting 07/12/17 15:30 08/06/17 15:29 Pantoprazole (Protonix) 40 mg DAILY IVP 07/13/17 09:00 08/07/17 08:59 Polyethylene Glycol (Miralax) 17 gm DAILYPRN PRN ORAL Constipation 07/12/17 15:30 08/06/17 15:29 Sodium Chloride 1,000 ml @ 50 mls/hr Q20H IV 07/12/17 15:15 08/11/17 15:14 07/12/17 15:38 Sodium Phosphate 30 mm/Sodium Chloride 285 ml @ 47.5 mls/hr ONCE ONCE IVPB 07/12/17 16:15 07/12/17 22:14 07/12/17 16:20 Vancomycin HCl (Vanco rx to dose) 1 ea DAILY PRN MISC PER RX PROTOCOL 07/12/17 15:30 08/11/17 15:29 Vancomycin HCl 1 gm/Dextrose 250 ml @ 166.636 mls/hr Q24H IVPB 07/12/17 16:00 07/13/17 15:59 Allergies: Coded Allergies: ASPIRIN (Verified Allergy, Unknown, 07/07/17) Subjective just transfer to [facility], on vent , not verbal Objective Last Vital Signs Date Time Temp Pulse Resp B/P (MAP) Pulse Ox O2 Delivery O2 Flow Rate FiO2 07/12/17 17:03 86 16 35 07/12/17 14:00 98.9 129/58 100 Mechanical Ventilator 07/07/17 18:27 15.0 Laboratory Tests Test 07/12/17 04:00 07/12/17 07:45 White Blood Count 13.0 K/UL (4.8-10.8) H Red Blood Count 2.52 M/UL (4.20-5.40) L Hemoglobin 7.7 G/DL (12.0-16.0) L Hematocrit 24.7 % (37.0-47.0) L Mean Corpuscular Volume 98 FL (80-99) Mean Corpuscular Hemoglobin 30.6 PG (27.0-31.0) Mean Corpuscular Hemoglobin Concent 31.2 G/DL (32.0-36.0) L Red Cell Distribution Width 14.4 % (11.6-14.8) Platelet Count 290 K/UL (150-450) Mean Platelet Volume 7.2 FL (6.5-10.1) Neutrophils (%) (Auto) % (45.0-75.0) Lymphocytes (%) (Auto) % (20.0-45.0) Monocytes (%) (Auto) % (1.0-10.0) Eosinophils (%) (Auto) % (0.0-3.0) Basophils (%) (Auto) % (0.0-2.0) Differential Total Cells Counted 100 Neutrophils % (Manual) 70 % (45-75) Lymphocytes % (Manual) 22 % (20-45) Monocytes % (Manual) 5 % (1-10) Eosinophils % (Manual) 2 % (0-3) Basophils % (Manual) 0 % (0-2) Band Neutrophils 1 % (0-8) Platelet Estimate Adequate Platelet Morphology Normal Hypochromasia 1+ Macrocytosis 1+ Sodium Level 150 MMOL/L (136-145) H Potassium Level 3.8 MMOL/L (3.5-5.1) Chloride Level 114 MMOL/L (98-107) H Carbon Dioxide Level 31 MMOL/L (21-32) Anion Gap 5 mmol/L (5-15) Blood Urea Nitrogen 12 mg/dL (7-18) Creatinine 0.9 MG/DL (0.55-1.30) Estimat Glomerular Filtration Rate mL/min (>60) Glucose Level 90 MG/DL (74-106) Calcium Level 8.6 MG/DL (8.5-10.1) Phosphorus Level 2.1 MG/DL (2.5-4.9) L Magnesium Level 1.7 MG/DL (1.8-2.4) L Total Bilirubin 0.2 MG/DL (0.2-1.0) Aspartate Amino Transf (AST/SGOT) 28 U/L (15-37) Alanine Aminotransferase (ALT/SGPT) 25 U/L (12-78) Alkaline Phosphatase 74 U/L (46-116) Troponin I 0.020 ng/mL (0.000-0.056) Total Protein 7.3 G/DL (6.4-8.2) Albumin 1.5 G/DL (3.4-5.0) L Globulin 5.8 g/dL Albumin/Globulin Ratio 0.3 (1.0-2.7) L Arterial Blood pH 7.390 (7.350-7.450) Arterial Blood Partial Pressure CO2 49.9 mmHg (35.0-45.0) H Arterial Blood Partial Pressure O2 87.6 mmHg (75.0-100.0) Arterial Blood HCO3 29.9 mmol/L (22.0-26.0) H Arterial Blood Oxygen Saturation 96.3 % (92.0-98.0) Arterial Blood Base Excess 4.4 Luís Test N/a Microbiology Date/Time Source Procedure Growth Status 07/10/17 16:10 Blood Blood Culture - Preliminary NO GROWTH AFTER 24 HOURS Resulted 07/10/17 14:30 Blood Blood Culture - Preliminary NO GROWTH AFTER 24 HOURS Resulted Intake and Output 07/12/17 07/13/17 19:00 07:00 Intake Total 842 ml Output Total 270 ml Balance 572 ml IV Total 512 ml Tube Feeding 330 ml Output Urine Total 270 ml # Bowel Movements 1 Objective GENERAL: nonresponsive, cannot follow commands, unable to open her eyes. HEAD AND NECK: Pupils are equal, sluggish, and anicteric. NECK: The tracheostomy site is intact. LUNGS: Bilateral air entry. Crackles at the bases. Right chest wall TLC. HEART: S1 and S2 RR. No murmur, ABDOMEN: Soft, nondistended, and nontender. PEG site is clean. EXTREMITIES: No cyanosis, clubbing, or edema. Muscle atrophy was noted. NEUROLOGIC: Unable to obtain secondary to the patient's status. moves UE's only. Assessment/Plan Assessment/Plan ASSESSMENT: 1. Septic shock improving. 2. Anemia. 3. Pneumonia. 4. Acute on chronic respiratory failure, ventilator dependent, status post tracheostomy. 5. Dysphagia status post percutaneous endoscopic gastrostomy. 6. Acute kidney injury, 7. Seizure disorder. 8. Anemia 9. Hypernatremia PLAN: Abx: vancomycin, Ertapenem Discussed with Dr. Yu from Pulmonary and Critical Care. Code status: Full Code DVT prophylaxis with heparin subcutaneous. transfuse 1 U PRBC Tube feeding. Ho Mcghee MD Jul 12, 2017 18:00
[2017-07-12] MEDS: Dyna-Hex 2% Top Sol 2oz TOPIC SCH (20:33)
[2017-07-13] VITALS: BP 157/80
[2017-07-13 04:00] VITALS: BP 149/70
[2017-07-13 05:10] LABS: BASOPHILS % (AUTO) 0.5 % (0.0-2.0); EOSINOPHILS % (AUTO) 2.5 % (0.0-3.0); LYMPHOCYTES % (AUTO) 16.6 % (20.0-45.0); MEAN CORPUSCULAR HEMOGLOBIN 31.3 PG (27.0-31.0); MEAN CORPUSCULAR HGB CONC 32.9 G/DL (32.0-36.0); MEAN CORPUSCULAR VOLUME 95 FL (80-99); MEAN PLATELET VOLUME 6.9 FL (6.5-10.1); MONOCYTES % (AUTO) 6.4 % (1.0-10.0); NEUTROPHILS % (AUTO) 74.1 % (45.0-75.0); PLATELET COUNT 330 K/UL (150-450); RED BLOOD COUNT 3.01 M/UL (4.20-5.40); WHITE BLOOD COUNT 10.2 K/UL (4.8-10.8)
[2017-07-13 05:17] LABS: ALANINE AMINOTRANSFERASE 31 U/L (12-78); ALBUMIN/GLOBULIN RATIO 0.3 (1.0-2.7); ANION GAP 3 mmol/L (5-15); ASPARTATE AMINO TRANSFERASE 29 U/L (15-37); CALCIUM 8.5 MG/DL (8.5-10.1); CARBON DIOXIDE 35 MMOL/L (21-32); CHLORIDE 109 MMOL/L (98-107); CREATININE 0.7 MG/DL (0.55-1.30); MAGNESIUM 1.8 MG/DL (1.8-2.4); PHOSPHORUS 3.5 MG/DL (2.5-4.9); POTASSIUM 3.3 MMOL/L (3.5-5.1); SODIUM 147 MMOL/L (136-145); TOTAL PROTEIN 7.5 G/DL (6.4-8.2)
[2017-07-13 08:00] VITALS: BP 150/74
[2017-07-13] MEDS: Heparin 5000 units/ml inj SUBQ SCH ×2 (08:40→20:24)
[2017-07-13] MEDS: Pantoprazole Inj IVP SCH (08:41)
[2017-07-13] MEDS: Colistin 150mg vial IVP SCH ×2 (08:41→20:23)
--- NOTE | 2017-07-13 08:43 | Infectious Diseases Prog Note ---
Assessment/Plan Assessment/Plan Assessment: Septic shock, SP PNA Scx: MDR- ACB -CXR: Interstitial edema, vascular prominence, borderline cardiomegaly and hazy basilar opacities probably pleural effusions demonstrated. +ve blood cx : CONS 1/4 , m/l contaminant - repeat BCx NGTD Fever SP Leukocytosis SP Ctr line 07/07 HTN seizure disorder Chronic VDRF SP trach PEG Chronic recanalized RLE DVT MRSA, VRE colonized No ABX allergies Full Code Plan: -DC IV Vancomycin # 7, continue Meropenem d# 6, Colistin INH/ IV d# 4 , may add Tygacil and DC IV Vanco if pt does not improve ( 07/08 SP Amikacin d# 2 ) -f/u Cx ( blood ) -Monitor CBC/BMP, temperatures -Monitor CXR -trach/peg care Subjective Allergies: Coded Allergies: ASPIRIN (Verified Allergy, Unknown, 07/07/17) Subjective afebrile overnight leukocytosis resolved Objective Vital Signs Last 24 Hour Vital Signs Date Time Temp Pulse Resp B/P (MAP) Pulse Ox O2 Delivery O2 Flow Rate FiO2 07/13/17 08:00 35 07/13/17 06:41 76 16 35 07/13/17 05:14 95 20 35 07/13/17 04:00 35 07/13/17 04:00 83 07/13/17 04:00 98.4 83 16 149/70 100 Mechanical Ventilator 35 07/13/17 02:55 77 16 35 07/13/17 01:02 82 16 35 07/13/17 00:00 98.8 83 25 157/80 100 Mechanical Ventilator 35 07/13/17 00:00 35 07/13/17 00:00 83 07/12/17 23:14 69 16 35 07/12/17 21:39 88 18 100 Mechanical Ventilator 35 07/12/17 21:23 75 16 99 Mechanical Ventilator 35 07/12/17 21:22 75 16 35 07/12/17 20:00 35 07/12/17 20:00 68 07/12/17 20:00 56 07/12/17 20:00 98.1 68 16 139/47 100 Mechanical Ventilator 35 07/12/17 18:55 63 16 35 07/12/17 17:03 86 16 35 07/12/17 16:21 90 07/12/17 16:00 35 07/12/17 15:04 86 18 35 07/12/17 14:00 98.9 89 21 129/58 100 Mechanical Ventilator 35 07/12/17 13:50 92 16 Mechanical Ventilator 35 07/12/17 13:28 91 19 35 07/12/17 13:00 98.9 92 21 128/36 100 Mechanical Ventilator 35 07/12/17 12:00 98.4 85 18 127/30 100 Mechanical Ventilator 35 07/12/17 12:00 95 07/12/17 12:00 35 07/12/17 11:00 98.7 88 19 145/65 100 Mechanical Ventilator 35 07/12/17 10:57 92 21 35 07/12/17 10:00 98.7 86 22 138/68 100 Mechanical Ventilator 35 07/12/17 09:43 97 23 35 Height (Feet): 5 Height (Inches): 4.00 Weight (Pounds): 155 Microbiology Date/Time Source Procedure Growth Status 07/10/17 16:10 Blood Blood Culture - Preliminary NO GROWTH AFTER 48 HOURS Resulted 07/10/17 14:30 Blood Blood Culture - Preliminary NO GROWTH AFTER 48 HOURS Resulted Laboratory Tests Test 07/13/17 00:30 07/13/17 04:20 Stool Occult Blood Pending White Blood Count 10.2 K/UL (4.8-10.8) Red Blood Count 3.01 M/UL (4.20-5.40) L Hemoglobin 9.4 G/DL (12.0-16.0) L Hematocrit 28.6 % (37.0-47.0) L Mean Corpuscular Volume 95 FL (80-99) Mean Corpuscular Hemoglobin 31.3 PG (27.0-31.0) H Mean Corpuscular Hemoglobin Concent 32.9 G/DL (32.0-36.0) Red Cell Distribution Width 14.0 % (11.6-14.8) Platelet Count 330 K/UL (150-450) Mean Platelet Volume 6.9 FL (6.5-10.1) Neutrophils (%) (Auto) 74.1 % (45.0-75.0) Lymphocytes (%) (Auto) 16.6 % (20.0-45.0) L Monocytes (%) (Auto) 6.4 % (1.0-10.0) Eosinophils (%) (Auto) 2.5 % (0.0-3.0) Basophils (%) (Auto) 0.5 % (0.0-2.0) Sodium Level 147 MMOL/L (136-145) H Potassium Level 3.3 MMOL/L (3.5-5.1) L Chloride Level 109 MMOL/L (98-107) H Carbon Dioxide Level 35 MMOL/L (21-32) H Anion Gap 3 mmol/L (5-15) L Blood Urea Nitrogen 9 mg/dL (7-18) Creatinine 0.7 MG/DL (0.55-1.30) Estimat Glomerular Filtration Rate mL/min (>60) Glucose Level 101 MG/DL (74-106) Calcium Level 8.5 MG/DL (8.5-10.1) Phosphorus Level 3.5 MG/DL (2.5-4.9) Magnesium Level 1.8 MG/DL (1.8-2.4) Total Bilirubin 0.4 MG/DL (0.2-1.0) Aspartate Amino Transf (AST/SGOT) 29 U/L (15-37) Alanine Aminotransferase (ALT/SGPT) 31 U/L (12-78) Alkaline Phosphatase 80 U/L (46-116) Total Protein 7.5 G/DL (6.4-8.2) Albumin 1.7 G/DL (3.4-5.0) L Globulin 5.8 g/dL Albumin/Globulin Ratio 0.3 (1.0-2.7) L Current Medications Medications (Trade) Dose Ordered Sig/Torsten Route PRN Reason Start Time Stop Time Status Last Admin Dose Admin Acetaminophen (Tylenol) 650 mg Q4H PRN ORAL fever 07/12/17 15:00 08/06/17 14:59 Chlorhexidine Gluconate (Mariah-Hex 2%) 1 applic DAILY@1999 TOPIC 07/12/17 20:00 08/07/17 19:59 07/12/17 20:33 Colistimethate Sodium (Colistin *inhalation use only*) 75 mg Q12HR@, INH 07/12/17 22:00 07/17/17 21:59 07/12/17 21:23 Colistimethate Sodium (Colistin) 75 mg EVERY 12 HOURS IVP 07/12/17 21:00 07/17/17 15:59 07/12/17 20:33 Diltiazem HCl (Cardizem) 15 mg Q1H PRN IVP HR > 120 BPM 07/12/17 14:30 08/10/17 11:29 Heparin Sodium (Porcine) (Heparin 5000 units/ml) 5,000 units EVERY 12 HOURS SUBQ 07/12/17 21:00 08/06/17 20:59 07/12/17 20:34 Lorazepam (Ativan 2mg/ml 1ml) 2 mg Q2H PRN IV For Anxiety 07/12/17 15:30 07/14/17 15:29 Meropenem 2 gm/ Sodium Chloride 110 ml @ 220 mls/hr Q12HR@1100,2300 IVPB 07/12/17 23:00 07/17/17 22:59 07/12/17 23:05 Morphine Sulfate (Morphine Sulfate) 4 mg Q4H PRN IVP Severe Pain (Pain Scale 7-10) 07/12/17 15:30 07/14/17 15:29 Ondansetron HCl (Zofran) 4 mg Q6H PRN IVP Nausea & Vomiting 07/12/17 15:30 08/06/17 15:29 Pantoprazole (Protonix) 40 mg DAILY IVP 07/13/17 09:00 08/07/17 08:59 Polyethylene Glycol (Miralax) 17 gm DAILYPRN PRN ORAL Constipation 07/12/17 15:30 08/06/17 15:29 Sodium Chloride 1,000 ml @ 50 mls/hr Q20H IV 07/12/17 15:15 08/11/17 15:14 07/13/17 03:26 Vancomycin HCl (Vanco rx to dose) 1 ea DAILY PRN MISC PER RX PROTOCOL 07/12/17 15:30 08/11/17 15:29 Vancomycin HCl 1 gm/Dextrose 250 ml @ 166.636 mls/hr Q24H IVPB 07/12/17 16:00 07/13/17 15:59 07/12/17 21:15 ANA KINGSTON Jul 13, 2017 08:43
[2017-07-13] MEDS: Colistin for inhalation INH SCH ×2 (09:25→21:26)
[2017-07-13] MEDS: Meropenem 2 GM in NS 110 ML IVPB SCH ×2 (11:25→23:06)
--- NOTE | 2017-07-13 11:41 | Pulmonology Progress Note ---
Assessment/Plan Problems: (1) Acute and chronic respiratory failure (2) Pneumonia (3) Anemia (4) Fever (5) Seizure disorder (6) HTN (hypertension) (7) Tracheostomy care Respiratory: monitor respiratory rate, adjust FIO2, CXR Cardiac: continue to monitor HR/BP Renal: F/U I&O Infectious Disease: check cultures, continue antibiotics, other - DC IV Vancomycin # 7, continue Meropenem d# 6, Colistin INH/ IV d# 4 , may add Tygacil and DC IV Vanco if pt does not improve Gastrointestinal: continue feedings/current rate Endocrine: monitor blood sugar, check TSH, continue sliding scale insulin Hematologic: monitor H/H, transfuse if hgb<8.5 Neurologic: PRN Morphine, keep patient comfortable Affect: PRN ativan Time Spent (Minutes): 40 Notes 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, 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 Discussed with: nurses, consultants, complex case manager Subjective ROS Limited/Unobtainable: No Constitutional: Reports: no symptoms HEENT: Repors: no symptoms Respiratory: Reports: no symptoms Allergies: Coded Allergies: ASPIRIN (Verified Allergy, Unknown, 07/07/17) Objective Last 24 Hour Vital Signs Date Time Temp Pulse Resp B/P (MAP) Pulse Ox O2 Delivery O2 Flow Rate FiO2 07/13/17 10:40 105 18 35 07/13/17 09:31 115 18 100 Mechanical Ventilator 35 07/13/17 09:25 109 16 99 Mechanical Ventilator 35 07/13/17 09:15 110 20 35 07/13/17 08:00 82 07/13/17 08:00 35 07/13/17 08:00 100.0 94 20 150/74 100 Mechanical Ventilator 35 07/13/17 06:41 76 16 35 07/13/17 05:14 95 20 35 07/13/17 04:00 35 07/13/17 04:00 83 07/13/17 04:00 98.4 83 16 149/70 100 Mechanical Ventilator 35 07/13/17 02:55 77 16 35 07/13/17 01:02 82 16 35 07/13/17 00:00 98.8 83 25 157/80 100 Mechanical Ventilator 35 07/13/17 00:00 35 07/13/17 00:00 83 07/12/17 23:14 69 16 35 07/12/17 21:39 88 18 100 Mechanical Ventilator 35 07/12/17 21:23 75 16 99 Mechanical Ventilator 35 07/12/17 21:22 75 16 35 07/12/17 20:00 35 07/12/17 20:00 68 07/12/17 20:00 56 07/12/17 20:00 98.1 68 16 139/47 100 Mechanical Ventilator 35 07/12/17 18:55 63 16 35 07/12/17 17:03 86 16 35 07/12/17 16:21 90 07/12/17 16:00 35 07/12/17 15:04 86 18 35 07/12/17 14:00 98.9 89 21 129/58 100 Mechanical Ventilator 35 07/12/17 13:50 92 16 Mechanical Ventilator 35 07/12/17 13:28 91 19 35 07/12/17 13:00 98.9 92 21 128/36 100 Mechanical Ventilator 35 07/12/17 12:00 98.4 85 18 127/30 100 Mechanical Ventilator 35 07/12/17 12:00 95 07/12/17 12:00 35 Intake and Output 07/13/17 07/14/17 19:00 07:00 # Bowel Movements 2 General Appearance: WD/WN HEENT: normocephalic, atraumatic Respiratory/Chest: chest wall non-tender, crackles/rales Breasts: no masses Cardiovascular: normal peripheral pulses Abdomen: normal bowel sounds, soft, non tender Extremities: no cyanosis Skin: no rash, no lesions Microbiology Date/Time Source Procedure Growth Status 07/10/17 16:10 Blood Blood Culture - Preliminary NO GROWTH AFTER 48 HOURS Resulted 07/10/17 14:30 Blood Blood Culture - Preliminary NO GROWTH AFTER 48 HOURS Resulted Laboratory Tests 07/13/17 00:30: Stool Occult Blood Negative 07/13/17 04:20: White Blood Count 10.2, Red Blood Count 3.01L, Hemoglobin 9.4L, Hematocrit 28.6L , Mean Corpuscular Volume 95, Mean Corpuscular Hemoglobin 31.3H, Mean Corpuscular Hemoglobin Concent 32.9, Red Cell Distribution Width 14.0, Platelet Count 330, Mean Platelet Volume 6.9, Neutrophils (%) (Auto) 74.1, Lymphocytes (% ) (Auto) 16.6L, Monocytes (%) (Auto) 6.4, Eosinophils (%) (Auto) 2.5, Basophils (%) (Auto) 0.5, Sodium Level 147H, Potassium Level 3.3L, Chloride Level 109H, Carbon Dioxide Level 35H, Anion Gap 3L, Blood Urea Nitrogen 9, Creatinine 0.7, Estimat Glomerular Filtration Rate , Glucose Level 101, Calcium Level 8.5, Phosphorus Level 3.5, Magnesium Level 1.8, Total Bilirubin 0.4, Aspartate Amino Transf (AST/SGOT) 29, Alanine Aminotransferase (ALT/SGPT) 31, Alkaline Phosphatase 80, Total Protein 7.5, Albumin 1.7L, Globulin 5.8, Albumin/Globulin Ratio 0.3L Current Medications Medications (Trade) Dose Ordered Sig/Torsten Route PRN Reason Start Time Stop Time Status Last Admin Dose Admin Acetaminophen (Tylenol) 650 mg Q4H PRN ORAL fever 07/12/17 15:00 08/06/17 14:59 Chlorhexidine Gluconate (Mariah-Hex 2%) 1 applic DAILY@2000 TOPIC 07/12/17 20:00 08/07/17 19:59 07/12/17 20:33 Colistimethate Sodium (Colistin *inhalation use only*) 75 mg Q12HR@10,22 INH 07/12/17 22:00 07/17/17 21:59 07/13/17 09:25 Colistimethate Sodium (Colistin) 75 mg EVERY 12 HOURS IVP 07/13/17 21:00 07/17/17 15:59 Diltiazem HCl (Cardizem) 15 mg Q1H PRN IVP HR > 120 BPM 07/12/17 14:30 08/10/17 11:29 Heparin Sodium (Porcine) (Heparin 5000 units/ml) 5,000 units EVERY 12 HOURS SUBQ 07/12/17 21:00 08/06/17 20:59 07/13/17 08:40 Lorazepam (Ativan 2mg/ml 1ml) 2 mg Q2H PRN IV For Anxiety 07/12/17 15:30 07/14/17 15:29 Meropenem 2 gm/ Sodium Chloride 110 ml @ 220 mls/hr Q12HR@1100,2300 IVPB 07/12/17 23:00 07/17/17 22:59 07/13/17 11:25 Morphine Sulfate (Morphine Sulfate) 4 mg Q4H PRN IVP Severe Pain (Pain Scale 7-10) 07/12/17 15:30 07/14/17 15:29 Ondansetron HCl (Zofran) 4 mg Q6H PRN IVP Nausea & Vomiting 07/12/17 15:30 08/06/17 15:29 Pantoprazole (Protonix) 40 mg DAILY IVP 07/13/17 09:00 08/07/17 08:59 07/13/17 08:41 Polyethylene Glycol (Miralax) 17 gm DAILYPRN PRN ORAL Constipation 07/12/17 15:30 08/06/17 15:29 Sodium Chloride 1,000 ml @ 50 mls/hr Q20H IV 07/12/17 15:15 08/11/17 15:14 07/13/17 03:26 COBY LEBLANC Jul 13, 2017 11:41
[2017-07-13 12:00] VITALS: BP 158/87
[2017-07-13] MEDS ORDERED: 1/2 NS 1000ml IV ONE ×2 (15:03→19:36)
[2017-07-13 16:00] VITALS: BP 107/57
--- NOTE | 2017-07-13 17:16 | Cardiology Progress Note ---
Assessment/Plan Assessment/Plan 1. Tachycardia consistent with atrial fibrillation now in sinus 2. Pulmonary infiltrates. 3. Chronic respiratory failure, on a ventilator. 4. Anemia. 5. Hypernatremia. 6. Gastrostomy tube dependence. 7. Ventilator dependence. na improved trop neg tele reviewed sinus no afib any more echo normla lv function , p htn to reviewed veous duplex showed recanalized thrombus right side off beta agonist i wopudl prefer to start her on amiod for afib prevention if has recurrent afib may need to consider if an anticoag candidate but iwth all that is going on with her would start amiod to see if we can prevent afib recurrence and need for anticoagulation Subjective ROS Limited/Unobtainable: Yes Objective Last 24 Hour Vital Signs Date Time Temp Pulse Resp B/P (MAP) Pulse Ox O2 Delivery O2 Flow Rate FiO2 07/13/17 16:45 87 16 35 07/13/17 16:00 35 07/13/17 16:00 64 07/13/17 16:00 100.6 85 16 107/57 100 Mechanical Ventilator 35 07/13/17 14:36 107 16 35 07/13/17 12:42 112 20 35 07/13/17 12:00 35 07/13/17 12:00 119 07/13/17 12:00 99.3 115 20 158/87 98 Mechanical Ventilator 35 07/13/17 10:40 105 18 35 07/13/17 09:31 115 18 100 Mechanical Ventilator 35 07/13/17 09:25 109 16 99 Mechanical Ventilator 35 07/13/17 09:15 110 20 35 07/13/17 08:00 82 07/13/17 08:00 35 07/13/17 08:00 100.0 94 20 150/74 100 Mechanical Ventilator 35 07/13/17 06:41 76 16 35 07/13/17 05:14 95 20 35 07/13/17 04:00 35 07/13/17 04:00 83 07/13/17 04:00 98.4 83 16 149/70 100 Mechanical Ventilator 35 07/13/17 02:55 77 16 35 07/13/17 01:02 82 16 35 07/13/17 00:00 98.8 83 25 157/80 100 Mechanical Ventilator 35 07/13/17 00:00 35 07/13/17 00:00 83 07/12/17 23:14 69 16 35 07/12/17 21:39 88 18 100 Mechanical Ventilator 35 07/12/17 21:23 75 16 99 Mechanical Ventilator 35 07/12/17 21:22 75 16 35 07/12/17 20:00 35 07/12/17 20:00 68 07/12/17 20:00 56 07/12/17 20:00 98.1 68 16 139/47 100 Mechanical Ventilator 35 07/12/17 18:55 63 16 35 General Appearance: on vent, patient on isolation, other - not communicative Cardiovascular: normal rate, regular rhythm Respiratory/Chest: expiratory wheezing - end Abdomen: normal bowel sounds, non tender, soft Extremities: no swelling Intake and Output 07/13/17 07/14/17 19:00 07:00 Intake Total 1230 ml Balance 1230 ml Intake Free Water 200 ml IV Total 535 ml Tube Feeding 495 ml # Bowel Movements 7 Laboratory Tests Test 07/13/17 00:30 07/13/17 04:20 Stool Occult Blood Negative (NEGATIVE) White Blood Count 10.2 K/UL (4.8-10.8) Red Blood Count 3.01 M/UL (4.20-5.40) L Hemoglobin 9.4 G/DL (12.0-16.0) L Hematocrit 28.6 % (37.0-47.0) L Mean Corpuscular Volume 95 FL (80-99) Mean Corpuscular Hemoglobin 31.3 PG (27.0-31.0) H Mean Corpuscular Hemoglobin Concent 32.9 G/DL (32.0-36.0) Red Cell Distribution Width 14.0 % (11.6-14.8) Platelet Count 330 K/UL (150-450) Mean Platelet Volume 6.9 FL (6.5-10.1) Neutrophils (%) (Auto) 74.1 % (45.0-75.0) Lymphocytes (%) (Auto) 16.6 % (20.0-45.0) L Monocytes (%) (Auto) 6.4 % (1.0-10.0) Eosinophils (%) (Auto) 2.5 % (0.0-3.0) Basophils (%) (Auto) 0.5 % (0.0-2.0) Sodium Level 147 MMOL/L (136-145) H Potassium Level 3.3 MMOL/L (3.5-5.1) L Chloride Level 109 MMOL/L (98-107) H Carbon Dioxide Level 35 MMOL/L (21-32) H Anion Gap 3 mmol/L (5-15) L Blood Urea Nitrogen 9 mg/dL (7-18) Creatinine 0.7 MG/DL (0.55-1.30) Estimat Glomerular Filtration Rate mL/min (>60) Glucose Level 101 MG/DL (74-106) Calcium Level 8.5 MG/DL (8.5-10.1) Phosphorus Level 3.5 MG/DL (2.5-4.9) Magnesium Level 1.8 MG/DL (1.8-2.4) Total Bilirubin 0.4 MG/DL (0.2-1.0) Aspartate Amino Transf (AST/SGOT) 29 U/L (15-37) Alanine Aminotransferase (ALT/SGPT) 31 U/L (12-78) Alkaline Phosphatase 80 U/L (46-116) Total Protein 7.5 G/DL (6.4-8.2) Albumin 1.7 G/DL (3.4-5.0) L Globulin 5.8 g/dL Albumin/Globulin Ratio 0.3 (1.0-2.7) L ALAINA SINGLETON Jul 13, 2017 17:16
[2017-07-13] MEDS ORDERED: KCl 10% 40mEq/30ml liquid NG ONE (18:00)
[2017-07-13] MEDS: Amiodarone 200mg tab ORAL SCH ×2 (18:22→20:23)
[2017-07-13 20:00] VITALS: BP 99/58
[2017-07-13] MEDS: Dyna-Hex 2% Top Sol 2oz TOPIC SCH (20:23)
--- NOTE | 2017-07-13 21:26 | Internal Med Progress Note ---
Subjective Physician Name Ho Mcghee Attending Physician Ho Mcghee MD Current Medications Medications (Trade) Dose Ordered Sig/Torsten Route PRN Reason Start Time Stop Time Status Last Admin Dose Admin Acetaminophen (Tylenol) 650 mg Q4H PRN ORAL fever 07/12/17 15:00 08/06/17 14:59 Amiodarone HCl (Cordarone) 200 mg EVERY 12 HOURS ORAL 07/13/17 17:15 08/12/17 17:14 07/13/17 20:23 Chlorhexidine Gluconate (Mariah-Hex 2%) 1 applic DAILY@1999 TOPIC 07/12/17 20:00 08/07/17 19:59 07/13/17 20:23 Colistimethate Sodium (Colistin *inhalation use only*) 75 mg Q12HR@10, INH 07/12/17 22:00 07/17/17 21:59 07/13/17 09:25 Colistimethate Sodium (Colistin) 75 mg EVERY 12 HOURS IVP 07/13/17 21:00 07/17/17 15:59 07/13/17 20:23 Diltiazem HCl (Cardizem) 15 mg Q1H PRN IVP HR > 120 BPM 07/12/17 14:30 08/10/17 11:29 Heparin Sodium (Porcine) (Heparin 5000 units/ml) 5,000 units EVERY 12 HOURS SUBQ 07/12/17 21:00 08/06/17 20:59 07/13/17 20:24 Lorazepam (Ativan 2mg/ml 1ml) 2 mg Q2H PRN IV For Anxiety 07/12/17 15:30 07/14/17 15:29 07/13/17 11:49 Meropenem 2 gm/ Sodium Chloride 110 ml @ 220 mls/hr Q12HR@1100,2300 IVPB 07/12/17 23:00 07/17/17 22:59 07/13/17 11:25 Morphine Sulfate (Morphine Sulfate) 4 mg Q4H PRN IVP Severe Pain (Pain Scale 7-10) 07/12/17 15:30 07/14/17 15:29 Ondansetron HCl (Zofran) 4 mg Q6H PRN IVP Nausea & Vomiting 07/12/17 15:30 08/06/17 15:29 Pantoprazole (Protonix) 40 mg DAILY IVP 07/13/17 09:00 08/07/17 08:59 07/13/17 08:41 Polyethylene Glycol (Miralax) 17 gm DAILYPRN PRN ORAL Constipation 07/12/17 15:30 08/06/17 15:29 Sodium Chloride 1,000 ml @ 50 mls/hr Q20H IV 07/12/17 15:15 08/11/17 15:14 07/13/17 03:26 Allergies: Coded Allergies: ASPIRIN (Verified Allergy, Unknown, 07/07/17) Subjective more responsive, open eye with calling her name, on vent , not verbal, WBC: 10.2 , RBC: 9.4 Objective Last Vital Signs Date Time Temp Pulse Resp B/P (MAP) Pulse Ox O2 Delivery O2 Flow Rate FiO2 07/13/17 21:09 70 16 35 07/13/17 20:00 99.7 99/58 100 Mechanical Ventilator 07/07/17 18:27 15.0 Laboratory Tests Test 07/13/17 00:30 07/13/17 04:20 Stool Occult Blood Negative (NEGATIVE) White Blood Count 10.2 K/UL (4.8-10.8) Red Blood Count 3.01 M/UL (4.20-5.40) L Hemoglobin 9.4 G/DL (12.0-16.0) L Hematocrit 28.6 % (37.0-47.0) L Mean Corpuscular Volume 95 FL (80-99) Mean Corpuscular Hemoglobin 31.3 PG (27.0-31.0) H Mean Corpuscular Hemoglobin Concent 32.9 G/DL (32.0-36.0) Red Cell Distribution Width 14.0 % (11.6-14.8) Platelet Count 330 K/UL (150-450) Mean Platelet Volume 6.9 FL (6.5-10.1) Neutrophils (%) (Auto) 74.1 % (45.0-75.0) Lymphocytes (%) (Auto) 16.6 % (20.0-45.0) L Monocytes (%) (Auto) 6.4 % (1.0-10.0) Eosinophils (%) (Auto) 2.5 % (0.0-3.0) Basophils (%) (Auto) 0.5 % (0.0-2.0) Sodium Level 147 MMOL/L (136-145) H Potassium Level 3.3 MMOL/L (3.5-5.1) L Chloride Level 109 MMOL/L (98-107) H Carbon Dioxide Level 35 MMOL/L (21-32) H Anion Gap 3 mmol/L (5-15) L Blood Urea Nitrogen 9 mg/dL (7-18) Creatinine 0.7 MG/DL (0.55-1.30) Estimat Glomerular Filtration Rate mL/min (>60) Glucose Level 101 MG/DL (74-106) Calcium Level 8.5 MG/DL (8.5-10.1) Phosphorus Level 3.5 MG/DL (2.5-4.9) Magnesium Level 1.8 MG/DL (1.8-2.4) Total Bilirubin 0.4 MG/DL (0.2-1.0) Aspartate Amino Transf (AST/SGOT) 29 U/L (15-37) Alanine Aminotransferase (ALT/SGPT) 31 U/L (12-78) Alkaline Phosphatase 80 U/L (46-116) Total Protein 7.5 G/DL (6.4-8.2) Albumin 1.7 G/DL (3.4-5.0) L Globulin 5.8 g/dL Albumin/Globulin Ratio 0.3 (1.0-2.7) L Intake and Output 07/13/17 07/14/17 19:00 07:00 Intake Total 1540 ml Output Total 600 ml Balance 1540 ml -600 ml Intake Free Water 300 ml IV Total 635 ml Tube Feeding 605 ml Output Urine Total 600 ml # Bowel Movements 7 Objective GENERAL: nonresponsive, cannot follow commands, able to open her eyes. HEAD AND NECK: PERRLA, and anicteric. NECK: Tracheostomy site is intact. LUNGS: Bilateral air entry. No wheezes, Crackles at the bases. Right chest wall TLC. HEART: S1 and S2 RR. No murmur, ABDOMEN: Soft, nondistended, and nontender. PEG site is clean. EXTREMITIES: No cyanosis, clubbing, or edema. Muscle atrophy was noted. NEUROLOGIC: able to move left side, Right UE contacted. Assessment/Plan Assessment/Plan ASSESSMENT: 1. Septic shock improving. 2. Anemia s/p PRBC transfusion. 3. Pneumonia. 4. Acute on chronic respiratory failure, ventilator dependent, status post tracheostomy. 5. Dysphagia status post percutaneous endoscopic gastrostomy. 6. Acute kidney injury, 7. Seizure disorder. 8. Anemia 9. Hypernatremia PLAN: Abx: vancomycin, Ertapenem Discussed with Dr. Yu from [facility]. Code status: Full Code DVT prophylaxis with heparin subcutaneous. Tube feeding @ 55 cc/hr Ho Mcghee MD Jul 13, 2017 21:26
[2017-07-14] VITALS: BP 101/50
[2017-07-14 04:00] VITALS: BP 105/44
[2017-07-14 08:00] VITALS: BP 112/68
[2017-07-14] MEDS: Pantoprazole Inj IVP SCH (08:58)
[2017-07-14] MEDS: Amiodarone 200mg tab ORAL SCH ×2 (08:58→21:31)
[2017-07-14] MEDS: Heparin 5000 units/ml inj SUBQ SCH ×2 (09:00→21:36)
[2017-07-14 09:18] LABS: BASOPHILS % (AUTO) 0.4 % (0.0-2.0); EOSINOPHILS % (AUTO) 2.4 % (0.0-3.0); LYMPHOCYTES % (AUTO) 23.1 % (20.0-45.0); MEAN CORPUSCULAR HEMOGLOBIN 29.8 PG (27.0-31.0); MEAN CORPUSCULAR HGB CONC 31.1 G/DL (32.0-36.0); MEAN CORPUSCULAR VOLUME 96 FL (80-99); NEUTROPHILS % (AUTO) 66.1 % (45.0-75.0); PLATELET COUNT 325 K/UL (150-450); RED BLOOD COUNT 2.75 M/UL (4.20-5.40); RED CELL DISTRIBUTION WIDTH 13.9 % (11.6-14.8); WHITE BLOOD COUNT 9.4 K/UL (4.8-10.8)
[2017-07-14] MEDS: Colistin for inhalation INH SCH ×2 (09:29→22:00)
[2017-07-14 09:35] LABS: ALANINE AMINOTRANSFERASE 23 U/L (12-78); ALBUMIN/GLOBULIN RATIO 0.3 (1.0-2.7); ANION GAP 2 mmol/L (5-15); ASPARTATE AMINO TRANSFERASE 22 U/L (15-37); CALCIUM 8.6 MG/DL (8.5-10.1); CARBON DIOXIDE 36 MMOL/L (21-32); CHLORIDE 109 MMOL/L (98-107); CREATININE 0.8 MG/DL (0.55-1.30); POTASSIUM 3.4 MMOL/L (3.5-5.1); SODIUM 147 MMOL/L (136-145); TOTAL PROTEIN 7.1 G/DL (6.4-8.2)
[2017-07-14] MEDS: Colistin 150mg vial IVP SCH ×2 (10:34→21:22)
[2017-07-14] MEDS: Meropenem 2 GM in NS 110 ML IVPB SCH ×2 (10:34→21:39)
[2017-07-14 12:00] VITALS: BP 126/66
--- NOTE | 2017-07-14 12:32 | Infectious Diseases Prog Note ---
Assessment/Plan Assessment/Plan Assessment: Septic shock, SP PNA Scx: MDR- ACB -CXR: Interstitial edema, vascular prominence, borderline cardiomegaly and hazy basilar opacities probably pleural effusions demonstrated. +ve blood cx : CONS 1/4 , m/l contaminant - repeat BCx NGTD Fever - intermittent Leukocytosis SP Ctr line 07/07 HTN seizure disorder Chronic VDRF SP trach PEG Chronic recanalized RLE DVT MRSA, VRE colonized No ABX allergies Full Code Plan: -continue Meropenem d# 7, Colistin INH/ IV d# 5 , may add Tygacil if pt does not improve ( 07/13 SP IV Vancomycin # 7 ) ( 07/08 SP Amikacin d# 2 ) -f/u Cx ( blood ) -Monitor CBC/BMP, temperatures -Monitor CXR -trach/peg care Subjective Allergies: Coded Allergies: ASPIRIN (Verified Allergy, Unknown, 07/07/17) Subjective intermittent low grade fevers leukocytosis resolved Objective Vital Signs Last 24 Hour Vital Signs Date Time Temp Pulse Resp B/P (MAP) Pulse Ox O2 Delivery O2 Flow Rate FiO2 07/14/17 12:00 98.4 78 16 126/66 99 07/14/17 11:26 71 16 35 07/14/17 09:40 69 16 100 Mechanical Ventilator 35 07/14/17 09:29 61 16 100 Mechanical Ventilator 35 07/14/17 08:34 83 18 35 07/14/17 08:00 35 07/14/17 08:00 98.1 68 16 112/68 100 Room Air 07/14/17 08:00 61 07/14/17 07:10 75 16 35 07/14/17 05:27 55 16 35 07/14/17 04:00 35 07/14/17 04:00 64 07/14/17 04:00 99.0 61 16 105/44 98 Mechanical Ventilator 35 07/14/17 03:20 61 16 35 07/14/17 02:01 98.9 07/14/17 02:01 98.9 07/14/17 00:50 72 16 35 07/14/17 00:00 74 07/14/17 00:00 100.4 68 16 101/50 100 Mechanical Ventilator 35 07/14/17 00:00 35 07/13/17 23:27 70 16 35 07/13/17 22:00 98.9 07/13/17 21:37 72 16 100 Mechanical Ventilator 35 07/13/17 21:21 70 16 100 Mechanical Ventilator 35 07/13/17 21:09 70 16 35 07/13/17 20:00 92 07/13/17 20:00 35 07/13/17 20:00 99.7 71 16 99/58 100 Mechanical Ventilator 35 07/13/17 19:17 83 16 35 07/13/17 16:45 87 16 35 07/13/17 16:00 35 07/13/17 16:00 64 07/13/17 16:00 100.6 85 16 107/57 100 Mechanical Ventilator 35 07/13/17 14:36 107 16 35 07/13/17 12:42 112 20 35 Height (Feet): 5 Height (Inches): 4.00 Weight (Pounds): 155 General Appearance: no acute distress Respiratory/Chest: no respiratory distress, decreased breath sounds Cardiovascular: normal rate, regular rhythm Abdomen: normal bowel sounds, soft, non tender, non distended Laboratory Tests Test 07/14/17 08:20 White Blood Count 9.4 K/UL (4.8-10.8) Red Blood Count 2.75 M/UL (4.20-5.40) L Hemoglobin 8.2 G/DL (12.0-16.0) L Hematocrit 26.3 % (37.0-47.0) L Mean Corpuscular Volume 96 FL (80-99) Mean Corpuscular Hemoglobin 29.8 PG (27.0-31.0) Mean Corpuscular Hemoglobin Concent 31.1 G/DL (32.0-36.0) L Red Cell Distribution Width 13.9 % (11.6-14.8) Platelet Count 325 K/UL (150-450) Mean Platelet Volume 7.0 FL (6.5-10.1) Neutrophils (%) (Auto) 66.1 % (45.0-75.0) Lymphocytes (%) (Auto) 23.1 % (20.0-45.0) Monocytes (%) (Auto) 8.0 % (1.0-10.0) Eosinophils (%) (Auto) 2.4 % (0.0-3.0) Basophils (%) (Auto) 0.4 % (0.0-2.0) Sodium Level 147 MMOL/L (136-145) H Potassium Level 3.4 MMOL/L (3.5-5.1) L Chloride Level 109 MMOL/L (98-107) H Carbon Dioxide Level 36 MMOL/L (21-32) H Anion Gap 2 mmol/L (5-15) L Blood Urea Nitrogen 11 mg/dL (7-18) Creatinine 0.8 MG/DL (0.55-1.30) Estimat Glomerular Filtration Rate mL/min (>60) Glucose Level 93 MG/DL (74-106) Calcium Level 8.6 MG/DL (8.5-10.1) Total Bilirubin 0.3 MG/DL (0.2-1.0) Aspartate Amino Transf (AST/SGOT) 22 U/L (15-37) Alanine Aminotransferase (ALT/SGPT) 23 U/L (12-78) Alkaline Phosphatase 68 U/L (46-116) Total Protein 7.1 G/DL (6.4-8.2) Albumin 1.6 G/DL (3.4-5.0) L Globulin 5.5 g/dL Albumin/Globulin Ratio 0.3 (1.0-2.7) L Current Medications Medications (Trade) Dose Ordered Sig/Torsten Route PRN Reason Start Time Stop Time Status Last Admin Dose Admin Acetaminophen (Tylenol) 650 mg Q4H PRN ORAL fever 07/12/17 15:00 08/06/17 14:59 07/14/17 01:02 Amiodarone HCl (Cordarone) 200 mg EVERY 12 HOURS ORAL 07/13/17 17:15 08/12/17 17:14 07/14/17 08:58 Chlorhexidine Gluconate (Mariah-Hex 2%) 1 applic DAILY@1999 TOPIC 07/12/17 20:00 08/07/17 19:59 07/13/17 20:23 Colistimethate Sodium (Colistin *inhalation use only*) 75 mg Q12HR@ INH 07/12/17 22:00 07/17/17 21:59 07/14/17 09:29 Colistimethate Sodium (Colistin) 75 mg EVERY 12 HOURS IVP 07/13/17 21:00 07/17/17 15:59 07/14/17 10:34 Diltiazem HCl (Cardizem) 15 mg Q1H PRN IVP HR > 120 BPM 07/12/17 14:30 08/10/17 11:29 Heparin Sodium (Porcine) (Heparin 5000 units/ml) 5,000 units EVERY 12 HOURS SUBQ 07/12/17 21:00 08/06/17 20:59 07/14/17 09:00 Lorazepam (Ativan 2mg/ml 1ml) 2 mg Q2H PRN IV For Anxiety 07/12/17 15:30 07/14/17 15:29 07/13/17 11:49 Meropenem 2 gm/ Sodium Chloride 110 ml @ 220 mls/hr Q12HR@1100,2300 IVPB 07/12/17 23:00 07/17/17 22:59 07/14/17 10:34 Morphine Sulfate (Morphine Sulfate) 4 mg Q4H PRN IVP Severe Pain (Pain Scale 7-10) 07/12/17 15:30 07/14/17 15:29 Ondansetron HCl (Zofran) 4 mg Q6H PRN IVP Nausea & Vomiting 07/12/17 15:30 08/06/17 15:29 Pantoprazole (Protonix) 40 mg DAILY IVP 07/13/17 09:00 08/07/17 08:59 07/14/17 08:58 Polyethylene Glycol (Miralax) 17 gm DAILYPRN PRN ORAL Constipation 07/12/17 15:30 08/06/17 15:29 Sodium Chloride 1,000 ml @ 50 mls/hr Q20H IV 07/12/17 15:15 08/11/17 15:14 07/13/17 23:11 ANA KINGSTON Jul 14, 2017 12:32
--- NOTE | 2017-07-14 15:54 | Internal Med Progress Note ---
Subjective Physician Name Ho Mcghee Attending Physician Ho Mcghee MD Current Medications Medications (Trade) Dose Ordered Sig/Torsten Route PRN Reason Start Time Stop Time Status Last Admin Dose Admin Acetaminophen (Tylenol) 650 mg Q4H PRN ORAL fever 07/12/17 15:00 08/06/17 14:59 07/14/17 01:02 Amiodarone HCl (Cordarone) 200 mg EVERY 12 HOURS ORAL 07/13/17 17:15 08/12/17 17:14 07/14/17 08:58 Chlorhexidine Gluconate (Mariah-Hex 2%) 1 applic DAILY@1999 TOPIC 07/12/17 20:00 08/07/17 19:59 07/13/17 20:23 Colistimethate Sodium (Colistin *inhalation use only*) 75 mg Q12HR@10,22 INH 07/12/17 22:00 07/17/17 21:59 07/14/17 09:29 Colistimethate Sodium (Colistin) 75 mg EVERY 12 HOURS IVP 07/13/17 21:00 07/17/17 15:59 07/14/17 10:34 Diltiazem HCl (Cardizem) 15 mg Q1H PRN IVP HR > 120 BPM 07/12/17 14:30 08/10/17 11:29 Heparin Sodium (Porcine) (Heparin 5000 units/ml) 5,000 units EVERY 12 HOURS SUBQ 07/12/17 21:00 08/06/17 20:59 07/14/17 09:00 Meropenem 2 gm/ Sodium Chloride 110 ml @ 220 mls/hr Q12HR@1100,2300 IVPB 07/12/17 23:00 07/17/17 22:59 07/14/17 10:34 Ondansetron HCl (Zofran) 4 mg Q6H PRN IVP Nausea & Vomiting 07/12/17 15:30 08/06/17 15:29 Pantoprazole (Protonix) 40 mg DAILY IVP 07/13/17 09:00 08/07/17 08:59 07/14/17 08:58 Polyethylene Glycol (Miralax) 17 gm DAILYPRN PRN ORAL Constipation 07/12/17 15:30 08/06/17 15:29 Sodium Chloride 1,000 ml @ 50 mls/hr Q20H IV 07/12/17 15:15 08/11/17 15:14 07/14/17 08:00 Allergies: Coded Allergies: ASPIRIN (Verified Allergy, Unknown, 07/07/17) Subjective Responsive with open eye upon calling her name, on vent , not verbal, RBC: 8.2 Objective Last Vital Signs Date Time Temp Pulse Resp B/P (MAP) Pulse Ox O2 Delivery O2 Flow Rate FiO2 07/14/17 12:37 82 16 35 07/14/17 12:00 98.4 126/66 99 07/14/17 09:40 Mechanical Ventilator 07/07/17 18:27 15.0 Laboratory Tests Test 07/14/17 08:20 White Blood Count 9.4 K/UL (4.8-10.8) Red Blood Count 2.75 M/UL (4.20-5.40) L Hemoglobin 8.2 G/DL (12.0-16.0) L Hematocrit 26.3 % (37.0-47.0) L Mean Corpuscular Volume 96 FL (80-99) Mean Corpuscular Hemoglobin 29.8 PG (27.0-31.0) Mean Corpuscular Hemoglobin Concent 31.1 G/DL (32.0-36.0) L Red Cell Distribution Width 13.9 % (11.6-14.8) Platelet Count 325 K/UL (150-450) Mean Platelet Volume 7.0 FL (6.5-10.1) Neutrophils (%) (Auto) 66.1 % (45.0-75.0) Lymphocytes (%) (Auto) 23.1 % (20.0-45.0) Monocytes (%) (Auto) 8.0 % (1.0-10.0) Eosinophils (%) (Auto) 2.4 % (0.0-3.0) Basophils (%) (Auto) 0.4 % (0.0-2.0) Sodium Level 147 MMOL/L (136-145) H Potassium Level 3.4 MMOL/L (3.5-5.1) L Chloride Level 109 MMOL/L (98-107) H Carbon Dioxide Level 36 MMOL/L (21-32) H Anion Gap 2 mmol/L (5-15) L Blood Urea Nitrogen 11 mg/dL (7-18) Creatinine 0.8 MG/DL (0.55-1.30) Estimat Glomerular Filtration Rate mL/min (>60) Glucose Level 93 MG/DL (74-106) Calcium Level 8.6 MG/DL (8.5-10.1) Total Bilirubin 0.3 MG/DL (0.2-1.0) Aspartate Amino Transf (AST/SGOT) 22 U/L (15-37) Alanine Aminotransferase (ALT/SGPT) 23 U/L (12-78) Alkaline Phosphatase 68 U/L (46-116) Total Protein 7.1 G/DL (6.4-8.2) Albumin 1.6 G/DL (3.4-5.0) L Globulin 5.5 g/dL Albumin/Globulin Ratio 0.3 (1.0-2.7) L Intake and Output 07/14/17 07/15/17 19:00 07:00 Intake Total 955 ml Balance 955 ml Intake Free Water 50 ml IV Total 520 ml Tube Feeding 385 ml # Voids 1 # Bowel Movements 2 Objective GENERAL: nonresponsive, cannot follow commands, able to open her eyes. HEAD AND NECK: PERRLA, and anicteric. NECK: Tracheostomy site is intact. LUNGS: Bilateral air entry. No wheezes, coarse breath sound. Right chest wall TLC. HEART: S1 and S2 RR. No murmur, ABDOMEN: Soft, nondistended, and nontender. PEG site is clean. EXTREMITIES: No cyanosis, clubbing, or edema. Muscle atrophy was noted. NEUROLOGIC: able to move left side, Right UE contacted. Assessment/Plan Assessment/Plan ASSESSMENT: 1. Septic shock improving. 2. Anemia s/p PRBC transfusion. 3. Pneumonia. 4. Acute on chronic respiratory failure, ventilator dependent, status post tracheostomy. 5. Dysphagia status post percutaneous endoscopic gastrostomy. 6. Acute kidney injury, 7. Seizure disorder. 8. Anemia 9. Hypernatremia 10. Hypokalemia. PLAN: Abx: Colistin, Ertapenem Discussed with Dr. Yu from [facility]. Code status: Full Code DVT prophylaxis with heparin subcutaneous. Tube feeding @ 55 cc/hr Monitor labs Ho Mcghee MD Jul 14, 2017 15:54
[2017-07-14 16:00] VITALS: BP 123/76
--- NOTE | 2017-07-14 17:52 | Cardiology Progress Note ---
Assessment/Plan Assessment/Plan 1. Tachycardia consistent with atrial fibrillation now in sinus 2. Pulmonary infiltrates. 3. Chronic respiratory failure, on a ventilator. 4. Anemia. 5. Hypernatremia. 6. Gastrostomy tube dependence. 7. Ventilator dependence. na stable stillmin elevated trop neg tele reviewed sinus no afib any more now oan miod loading echo normla lv function , p htn to reviewed veous duplex showed recanalized thrombus right side off beta agonist if has recurrent afib may need to consider if an anticoag candidate but with all that is going on with her would start amiod to see if we can prevent afib recurrence and need for anticoagulation Subjective ROS Limited/Unobtainable: Yes Objective Last 24 Hour Vital Signs Date Time Temp Pulse Resp B/P (MAP) Pulse Ox O2 Delivery O2 Flow Rate FiO2 07/14/17 16:52 81 16 35 07/14/17 16:00 98.7 87 22 123/76 98 Mechanical Ventilator 35 07/14/17 16:00 98.7 87 22 123/76 98 07/14/17 16:00 35 07/14/17 16:00 85 07/14/17 15:16 90 21 35 07/14/17 12:37 82 16 35 07/14/17 12:00 98.4 78 16 126/66 99 07/14/17 12:00 77 07/14/17 12:00 35 07/14/17 11:26 71 16 35 07/14/17 09:40 69 16 100 Mechanical Ventilator 35 07/14/17 09:29 61 16 100 Mechanical Ventilator 35 07/14/17 08:34 83 18 35 07/14/17 08:00 35 07/14/17 08:00 98.1 68 16 112/68 100 Room Air 07/14/17 08:00 61 07/14/17 07:10 75 16 35 07/14/17 05:27 55 16 35 07/14/17 04:00 35 07/14/17 04:00 64 07/14/17 04:00 99.0 61 16 105/44 98 Mechanical Ventilator 35 07/14/17 03:20 61 16 35 07/14/17 02:01 98.9 07/14/17 02:01 98.9 07/14/17 00:50 72 16 35 07/14/17 00:00 74 07/14/17 00:00 100.4 68 16 101/50 100 Mechanical Ventilator 35 07/14/17 00:00 35 07/13/17 23:27 70 16 35 07/13/17 22:00 98.9 07/13/17 21:37 72 16 100 Mechanical Ventilator 35 07/13/17 21:21 70 16 100 Mechanical Ventilator 35 07/13/17 21:09 70 16 35 07/13/17 20:00 92 07/13/17 20:00 35 07/13/17 20:00 99.7 71 16 99/58 100 Mechanical Ventilator 35 07/13/17 19:17 83 16 35 General Appearance: on vent, patient on isolation, other - non verbal awake Cardiovascular: normal rate, regular rhythm Respiratory/Chest: lungs clear - anterirorly Abdomen: normal bowel sounds, non tender, soft Extremities: no swelling Intake and Output 07/14/17 07/15/17 19:00 07:00 Intake Total 1220 ml Balance 1220 ml Intake Free Water 50 ml IV Total 620 ml Tube Feeding 550 ml # Voids 1 # Bowel Movements 4 Laboratory Tests Test 07/14/17 08:20 White Blood Count 9.4 K/UL (4.8-10.8) Red Blood Count 2.75 M/UL (4.20-5.40) L Hemoglobin 8.2 G/DL (12.0-16.0) L Hematocrit 26.3 % (37.0-47.0) L Mean Corpuscular Volume 96 FL (80-99) Mean Corpuscular Hemoglobin 29.8 PG (27.0-31.0) Mean Corpuscular Hemoglobin Concent 31.1 G/DL (32.0-36.0) L Red Cell Distribution Width 13.9 % (11.6-14.8) Platelet Count 325 K/UL (150-450) Mean Platelet Volume 7.0 FL (6.5-10.1) Neutrophils (%) (Auto) 66.1 % (45.0-75.0) Lymphocytes (%) (Auto) 23.1 % (20.0-45.0) Monocytes (%) (Auto) 8.0 % (1.0-10.0) Eosinophils (%) (Auto) 2.4 % (0.0-3.0) Basophils (%) (Auto) 0.4 % (0.0-2.0) Sodium Level 147 MMOL/L (136-145) H Potassium Level 3.4 MMOL/L (3.5-5.1) L Chloride Level 109 MMOL/L (98-107) H Carbon Dioxide Level 36 MMOL/L (21-32) H Anion Gap 2 mmol/L (5-15) L Blood Urea Nitrogen 11 mg/dL (7-18) Creatinine 0.8 MG/DL (0.55-1.30) Estimat Glomerular Filtration Rate mL/min (>60) Glucose Level 93 MG/DL (74-106) Calcium Level 8.6 MG/DL (8.5-10.1) Total Bilirubin 0.3 MG/DL (0.2-1.0) Aspartate Amino Transf (AST/SGOT) 22 U/L (15-37) Alanine Aminotransferase (ALT/SGPT) 23 U/L (12-78) Alkaline Phosphatase 68 U/L (46-116) Total Protein 7.1 G/DL (6.4-8.2) Albumin 1.6 G/DL (3.4-5.0) L Globulin 5.5 g/dL Albumin/Globulin Ratio 0.3 (1.0-2.7) L ALAINA SINGLETON Jul 14, 2017 17:52
[2017-07-14 20:00] VITALS: BP 122/67
[2017-07-14] MEDS: Dyna-Hex 2% Top Sol 2oz TOPIC SCH (21:37)
--- NOTE | 2017-07-14 22:59 | Pulmonology Progress Note ---
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, 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 Discussed with: nurses, consultants, employment case manager Subjective ROS Limited/Unobtainable: Yes Constitutional: Reports: no symptoms HEENT: Repors: no symptoms Respiratory: Reports: no symptoms Allergies: Coded Allergies: ASPIRIN (Verified Allergy, Unknown, 07/07/17) Objective Last 24 Hour Vital Signs Date Time Temp Pulse Resp B/P (MAP) Pulse Ox O2 Delivery O2 Flow Rate FiO2 07/14/17 22:46 71 16 100 Mechanical Ventilator 35 07/14/17 21:24 73 16 99 Mechanical Ventilator 35 07/14/17 21:23 75 16 35 07/14/17 20:00 35 07/14/17 20:00 99.1 72 16 122/67 98 35 07/14/17 20:00 74 07/14/17 18:56 74 16 35 07/14/17 16:52 81 16 35 07/14/17 16:00 98.7 87 22 123/76 98 Mechanical Ventilator 35 07/14/17 16:00 98.7 87 22 123/76 98 07/14/17 16:00 35 07/14/17 16:00 85 07/14/17 15:16 90 21 35 07/14/17 12:37 82 16 35 07/14/17 12:00 98.4 78 16 126/66 99 07/14/17 12:00 77 07/14/17 12:00 35 07/14/17 11:26 71 16 35 07/14/17 09:40 69 16 100 Mechanical Ventilator 35 07/14/17 09:29 61 16 100 Mechanical Ventilator 35 07/14/17 08:34 83 18 35 07/14/17 08:00 35 07/14/17 08:00 98.1 68 16 112/68 100 Room Air 07/14/17 08:00 61 07/14/17 07:10 75 16 35 07/14/17 05:27 55 16 35 07/14/17 04:00 35 07/14/17 04:00 64 07/14/17 04:00 99.0 61 16 105/44 98 Mechanical Ventilator 35 07/14/17 03:20 61 16 35 07/14/17 02:01 98.9 07/14/17 02:01 98.9 07/14/17 00:50 72 16 35 07/14/17 00:00 74 07/14/17 00:00 100.4 68 16 101/50 100 Mechanical Ventilator 35 07/14/17 00:00 35 07/13/17 23:27 70 16 35 Intake and Output 07/14/17 07/15/17 19:00 07:00 Intake Total 1375 ml 50 ml Output Total 700 ml Balance 675 ml 50 ml Intake Free Water 50 ml IV Total 720 ml 50 ml Tube Feeding 605 ml Output Urine Total 700 ml # Voids 1 # Bowel Movements 6 General Appearance: WD/WN HEENT: normocephalic, atraumatic Respiratory/Chest: chest wall non-tender, lungs clear Cardiovascular: normal peripheral pulses, normal rate Abdomen: normal bowel sounds, soft, non tender Extremities: no cyanosis Skin: no rash Neurologic/Psychiatric: blind aide II-XII grossly normal Lymphatic: no neck adenopathy, no groin adenopathy Laboratory Tests 07/14/17 08:20: White Blood Count 9.4, Red Blood Count 2.75L, Hemoglobin 8.2L, Hematocrit 26.3L , Mean Corpuscular Volume 96, Mean Corpuscular Hemoglobin 29.8, Mean Corpuscular Hemoglobin Concent 31.1L, Red Cell Distribution Width 13.9, Platelet Count 325, Mean Platelet Volume 7.0, Neutrophils (%) (Auto) 66.1, Lymphocytes (%) (Auto) 23.1, Monocytes (%) (Auto) 8.0, Eosinophils (%) (Auto) 2.4, Basophils (%) (Auto) 0.4, Sodium Level 147H, Potassium Level 3.4L, Chloride Level 109H, Carbon Dioxide Level 36H, Anion Gap 2L, Blood Urea Nitrogen 11, Creatinine 0.8, Estimat Glomerular Filtration Rate , Glucose Level 93, Calcium Level 8.6, Total Bilirubin 0.3, Aspartate Amino Transf (AST/SGOT) 22 , Alanine Aminotransferase (ALT/SGPT) 23, Alkaline Phosphatase 68, Total Protein 7.1, Albumin 1.6L, Globulin 5.5, Albumin/Globulin Ratio 0.3L Current Medications Medications (Trade) Dose Ordered Sig/Torsten Route PRN Reason Start Time Stop Time Status Last Admin Dose Admin Acetaminophen (Tylenol) 650 mg Q4H PRN ORAL fever 07/12/17 15:00 08/06/17 14:59 07/14/17 21:39 Amiodarone HCl (Cordarone) 200 mg EVERY 12 HOURS ORAL 07/13/17 17:15 08/12/17 17:14 07/14/17 21:31 Chlorhexidine Gluconate (Mariah-Hex 2%) 1 applic DAILY@1999 TOPIC 07/12/17 20:00 08/07/17 19:59 07/14/17 21:37 Colistimethate Sodium (Colistin *inhalation use only*) 75 mg Q12HR@10,22 INH 07/12/17 22:00 07/17/17 21:59 07/14/17 09:29 Colistimethate Sodium (Colistin) 75 mg EVERY 12 HOURS IVP 07/13/17 21:00 07/17/17 15:59 07/14/17 21:22 Diltiazem HCl (Cardizem) 15 mg Q1H PRN IVP HR > 120 BPM 07/12/17 14:30 08/10/17 11:29 Heparin Sodium (Porcine) (Heparin 5000 units/ml) 5,000 units EVERY 12 HOURS SUBQ 07/12/17 21:00 08/06/17 20:59 07/14/17 21:36 Meropenem 2 gm/ Sodium Chloride 110 ml @ 220 mls/hr Q12HR@1100,2300 IVPB 07/12/17 23:00 07/17/17 22:59 07/14/17 21:39 Ondansetron HCl (Zofran) 4 mg Q6H PRN IVP Nausea & Vomiting 07/12/17 15:30 08/06/17 15:29 Pantoprazole (Protonix) 40 mg DAILY IVP 07/13/17 09:00 08/07/17 08:59 07/14/17 08:58 Polyethylene Glycol (Miralax) 17 gm DAILYPRN PRN ORAL Constipation 07/12/17 15:30 08/06/17 15:29 Sodium Chloride 1,000 ml @ 50 mls/hr Q20H IV 07/12/17 15:15 08/11/17 15:14 07/14/17 08:00 COBY LEBLANC Jul 14, 2017 22:59
[2017-07-15] VITALS: BP 122/48
[2017-07-15 04:00] VITALS: BP 116/54
[2017-07-15 05:02] LABS: ANION GAP 3 mmol/L (5-15); CALCIUM 8.9 MG/DL (8.5-10.1); CARBON DIOXIDE 35 MMOL/L (21-32); CHLORIDE 107 MMOL/L (98-107); CREATININE 0.9 MG/DL (0.55-1.30); MAGNESIUM 1.5 MG/DL (1.8-2.4); PHOSPHORUS 2.8 MG/DL (2.5-4.9); POTASSIUM 3.2 MMOL/L (3.5-5.1); SODIUM 145 MMOL/L (136-145)
[2017-07-15 08:00] VITALS: BP 129/73
--- NOTE | 2017-07-15 08:28 | Pulmonology Progress Note ---
Assessment/Plan Assessment/Plan ASSESSMENT Acute on chronic respiratory failure VDRF/trach status sepsis with septic shock PNA with MDR Acinetobacter Acute kidney injury, likely due to septic shock Dysphagia, G tube chronic DVT RLE acute anemia requiring blood transfusion hypernatremia PAF HTN seizure disorder e/lyte abnormalities ( hypo K, hypo Mg) PLAN OF CARE MARTHA status vent/trach care pulmonary toilet ATC and prn baseline ABG stable keep current settings and titrate as needed Abx ID follows sputum cx + MDR Acinetobacter, blood cx repeated negative, initial +SCON, likely contaminant Cardio follows episode of PAF, added Amiodarone BP stable, no need for anti HTN Gentle IVF, renal parameters down to normal monitor lytes, replace K and Mg today avoid nephrotoxic Na better s/p 3 u PRBC, monitor counts, stool OB negative strict aspiration precautions, GT feeding, monitor tolerance venous Duplex with chronic DVT RLE, no acute DVT DVT GI prophylaxis bowel regimen case discussed and evaluated by supervising physician Subjective Allergies: Coded Allergies: ASPIRIN (Verified Allergy, Unknown, 07/07/17) Subjective leukocytosis resolved, afebrile still congested no signs of respiratory distress on current settings Objective Last 24 Hour Vital Signs Date Time Temp Pulse Resp B/P (MAP) Pulse Ox O2 Delivery O2 Flow Rate FiO2 07/15/17 08:00 35 07/15/17 08:00 79 07/15/17 08:00 98.3 79 18 129/73 100 Mechanical Ventilator 35 07/15/17 06:59 69 18 35 07/15/17 05:24 63 16 35 07/15/17 04:00 98.3 57 16 116/54 100 Mechanical Ventilator 35 07/15/17 04:00 51 07/15/17 04:00 35 07/15/17 03:26 50 16 35 07/15/17 01:15 66 16 35 07/15/17 00:00 57 07/15/17 00:00 99.5 67 16 122/48 98 Mechanical Ventilator 35 07/14/17 23:18 60 16 35 07/14/17 22:46 71 16 100 Mechanical Ventilator 35 07/14/17 22:38 100.1 07/14/17 21:24 73 16 99 Mechanical Ventilator 35 07/14/17 21:23 75 16 35 07/14/17 20:00 35 07/14/17 20:00 99.1 72 16 122/67 98 35 07/14/17 20:00 74 07/14/17 18:56 74 16 35 07/14/17 16:52 81 16 35 07/14/17 16:00 98.7 87 22 123/76 98 Mechanical Ventilator 35 07/14/17 16:00 98.7 87 22 123/76 98 07/14/17 16:00 35 07/14/17 16:00 85 07/14/17 15:16 90 21 35 07/14/17 12:37 82 16 35 07/14/17 12:00 98.4 78 16 126/66 99 07/14/17 12:00 77 07/14/17 12:00 35 07/14/17 11:26 71 16 35 07/14/17 09:40 69 16 100 Mechanical Ventilator 35 07/14/17 09:29 61 16 100 Mechanical Ventilator 35 07/14/17 08:34 83 18 35 General Appearance: other - bedriddemn chronically ill looking, vent depenedent AA female ; on vent AC 600-16-35% HEENT: status post trach - Portex #8, secretions small, yellow, thick Respiratory/Chest: rhonchi - difused bilaterally Abdomen: soft, non tender, non distended, other - G tube Neurologic/Psychiatric: abnormal gait - bedridden , other - awake, poorly responsive, Musculoskeletal: atrophy - BLE Laboratory Tests 07/15/17 03:30: Sodium Level 145, Potassium Level 3.2L, Chloride Level 107, Carbon Dioxide Level 35H, Anion Gap 3L, Blood Urea Nitrogen 10, Creatinine 0.9, Estimat Glomerular Filtration Rate , Glucose Level 101, Calcium Level 8.9, Phosphorus Level 2.8, Magnesium Level 1.5L Current Medications Medications (Trade) Dose Ordered Sig/Torsten Route PRN Reason Start Time Stop Time Status Last Admin Dose Admin Acetaminophen (Tylenol) 650 mg Q4H PRN ORAL fever 07/12/17 15:00 08/06/17 14:59 07/14/17 21:39 Amiodarone HCl (Cordarone) 200 mg EVERY 12 HOURS ORAL 07/13/17 17:15 08/12/17 17:14 07/14/17 21:31 Chlorhexidine Gluconate (Mariah-Hex 2%) 1 applic DAILY@1999 TOPIC 07/12/17 20:00 08/07/17 19:59 07/14/17 21:37 Colistimethate Sodium (Colistin *inhalation use only*) 75 mg Q12HR@10,22 INH 07/12/17 22:00 07/17/17 21:59 07/14/17 09:29 Colistimethate Sodium (Colistin) 75 mg EVERY 12 HOURS IVP 07/13/17 21:00 07/17/17 15:59 07/14/17 21:22 Diltiazem HCl (Cardizem) 15 mg Q1H PRN IVP HR > 120 BPM 07/12/17 14:30 08/10/17 11:29 Heparin Sodium (Porcine) (Heparin 5000 units/ml) 5,000 units EVERY 12 HOURS SUBQ 07/12/17 21:00 08/06/17 20:59 07/14/17 21:36 Meropenem 2 gm/ Sodium Chloride 110 ml @ 220 mls/hr Q12HR@1100,2300 IVPB 07/12/17 23:00 07/17/17 22:59 07/14/17 21:39 Ondansetron HCl (Zofran) 4 mg Q6H PRN IVP Nausea & Vomiting 07/12/17 15:30 08/06/17 15:29 Pantoprazole (Protonix) 40 mg DAILY IVP 07/13/17 09:00 08/07/17 08:59 07/14/17 08:58 Polyethylene Glycol (Miralax) 17 gm DAILYPRN PRN ORAL Constipation 07/12/17 15:30 08/06/17 15:29 Sodium Chloride 1,000 ml @ 50 mls/hr Q20H IV 07/12/17 15:15 08/11/17 15:14 07/15/17 02:18 Richard Cannonvirtua [facility] medical centerTatiana Laguerre NP Jul 15, 2017 08:28
--- NOTE | 2017-07-15 08:43 | Infectious Diseases Prog Note ---
Assessment/Plan Assessment/Plan AssesmeAssessment: Septic shock, SP PNA Scx: MDR- ACB -CXR: Interstitial edema, vascular prominence, borderline cardiomegaly and hazy basilar opacities probably pleural effusions demonstrated. +ve blood cx : CONS 1/4 , m/l contaminant - repeat BCx NGTD Fever - intermittent, low grade Leukocytosis SP Ctr line 07/07 HTN seizure disorder Chronic VDRF SP trach PEG Chronic recanalized RLE DVT MRSA, VRE colonized No ABX allergies Full Code Plan: -continue Meropenem d# / , Colistin INH/ IV d# 6 / - , add Tygacil d # 1 ( 07/13 SP IV Vancomycin # 7 ) ( 07/08 SP Amikacin d# 2 ) -f/u Cx ( blood ) -Monitor CBC/BMP, temperatures -Monitor CXR -trach/peg care Subjective Allergies: Coded Allergies: ASPIRIN (Verified Allergy, Unknown, 07/07/17) Subjective low grade fever Objective Vital Signs Last 24 Hour Vital Signs Date Time Temp Pulse Resp B/P (MAP) Pulse Ox O2 Delivery O2 Flow Rate FiO2 07/15/17 08:00 35 07/15/17 08:00 79 07/15/17 08:00 98.3 79 18 129/73 100 Mechanical Ventilator 35 07/15/17 06:59 69 18 35 07/15/17 05:24 63 16 35 07/15/17 04:00 98.3 57 16 116/54 100 Mechanical Ventilator 35 07/15/17 04:00 51 07/15/17 04:00 35 07/15/17 03:26 50 16 35 07/15/17 01:15 66 16 35 07/15/17 00:00 57 07/15/17 00:00 99.5 67 16 122/48 98 Mechanical Ventilator 35 07/14/17 23:18 60 16 35 07/14/17 22:46 71 16 100 Mechanical Ventilator 35 07/14/17 22:38 100.1 07/14/17 21:24 73 16 99 Mechanical Ventilator 35 07/14/17 21:23 75 16 35 07/14/17 20:00 35 07/14/17 20:00 99.1 72 16 122/67 98 35 07/14/17 20:00 74 07/14/17 18:56 74 16 35 07/14/17 16:52 81 16 35 07/14/17 16:00 98.7 87 22 123/76 98 Mechanical Ventilator 35 07/14/17 16:00 98.7 87 22 123/76 98 07/14/17 16:00 35 07/14/17 16:00 85 07/14/17 15:16 90 21 35 07/14/17 12:37 82 16 35 07/14/17 12:00 98.4 78 16 126/66 99 07/14/17 12:00 77 07/14/17 12:00 35 07/14/17 11:26 71 16 35 07/14/17 09:40 69 16 100 Mechanical Ventilator 35 07/14/17 09:29 61 16 100 Mechanical Ventilator 35 Height (Feet): 5 Height (Inches): 4.00 Weight (Pounds): 155 HEENT: anicteric Respiratory/Chest: no respiratory distress Cardiovascular: regular rhythm Abdomen: no mass Laboratory Tests Test 07/15/17 03:30 Sodium Level 145 MMOL/L (136-145) Potassium Level 3.2 MMOL/L (3.5-5.1) L Chloride Level 107 MMOL/L (98-107) Carbon Dioxide Level 35 MMOL/L (21-32) H Anion Gap 3 mmol/L (5-15) L Blood Urea Nitrogen 10 mg/dL (7-18) Creatinine 0.9 MG/DL (0.55-1.30) Estimat Glomerular Filtration Rate mL/min (>60) Glucose Level 101 MG/DL (74-106) Calcium Level 8.9 MG/DL (8.5-10.1) Phosphorus Level 2.8 MG/DL (2.5-4.9) Magnesium Level 1.5 MG/DL (1.8-2.4) L Current Medications Medications (Trade) Dose Ordered Sig/Torsten Route PRN Reason Start Time Stop Time Status Last Admin Dose Admin Acetaminophen (Tylenol) 650 mg Q4H PRN ORAL fever 07/12/17 15:00 08/06/17 14:59 07/14/17 21:39 Amiodarone HCl (Cordarone) 200 mg EVERY 12 HOURS ORAL 07/13/17 17:15 08/12/17 17:14 07/14/17 21:31 Chlorhexidine Gluconate (Mariah-Hex 2%) 1 applic DAILY@1999 TOPIC 07/12/17 20:00 08/07/17 19:59 07/14/17 21:37 Colistimethate Sodium (Colistin *inhalation use only*) 75 mg Q12HR@10,22 INH 07/12/17 22:00 07/17/17 21:59 07/14/17 09:29 Colistimethate Sodium (Colistin) 75 mg EVERY 12 HOURS IVP 07/13/17 21:00 07/17/17 15:59 07/14/17 21:22 Diltiazem HCl (Cardizem) 15 mg Q1H PRN IVP HR > 120 BPM 07/12/17 14:30 08/10/17 11:29 Heparin Sodium (Porcine) (Heparin 5000 units/ml) 5,000 units EVERY 12 HOURS SUBQ 07/12/17 21:00 08/06/17 20:59 07/14/17 21:36 Meropenem 2 gm/ Sodium Chloride 110 ml @ 220 mls/hr Q12HR@1100,2300 IVPB 07/12/17 23:00 07/17/17 22:59 07/14/17 21:39 Ondansetron HCl (Zofran) 4 mg Q6H PRN IVP Nausea & Vomiting 07/12/17 15:30 08/06/17 15:29 Pantoprazole (Protonix) 40 mg DAILY IVP 07/13/17 09:00 08/07/17 08:59 07/14/17 08:58 Polyethylene Glycol (Miralax) 17 gm DAILYPRN PRN ORAL Constipation 07/12/17 15:30 08/06/17 15:29 Sodium Chloride 1,000 ml @ 50 mls/hr Q20H IV 07/12/17 15:15 08/11/17 15:14 07/15/17 02:18 COLBY BRICENO M.D. Jul 15, 2017 08:43
[2017-07-15] MEDS: Amiodarone 200mg tab ORAL SCH ×2 (08:52→20:21)
[2017-07-15] MEDS: Pantoprazole Inj IVP SCH (08:52)
[2017-07-15] MEDS: Heparin 5000 units/ml inj SUBQ SCH ×2 (08:53→20:24)
[2017-07-15] MEDS: Colistin 150mg vial IVP SCH ×3 (09:28→21:00)
[2017-07-15] MEDS: Colistin for inhalation INH SCH ×2 (09:28→21:08)
[2017-07-15] MEDS ORDERED: KCl 10% 40mEq/30ml liquid NG ONE (09:30)
[2017-07-15] MEDS ORDERED: Tigecycline 100 MG in NS 110 ML IVPB ONE (10:00)
[2017-07-15] MEDS ORDERED: Tubing IV Secondary IV ONE (10:58)
[2017-07-15] MEDS ORDERED: Sterile Water Irrig 1000ml IRRIG ONE (10:58)
[2017-07-15] MEDS ORDERED: Tubing Blood Filter IV ONE (10:58)
[2017-07-15] MEDS ORDERED: 1/2 NS 1000ml IV ONE (10:58)
[2017-07-15] MEDS ORDERED: NS 275ml ONE (10:58)
[2017-07-15 12:00] VITALS: BP 154/90
[2017-07-15] MEDS: Meropenem 2 GM in NS 110 ML IVPB SCH ×2 (12:15→23:06)
[2017-07-15] MEDS ORDERED: Albuterol/Ipratropium 3ml neb HHN PRN (13:00)
[2017-07-15] MEDS: Albuterol/Ipratropium 3ml neb INH SCH ×2 (13:31→20:00)
--- NOTE | 2017-07-15 14:21 | Internal Med Progress Note ---
Subjective Physician Name Ho Mcghee Attending Physician Ho Mcghee MD Current Medications Medications (Trade) Dose Ordered Sig/Torsten Route PRN Reason Start Time Stop Time Status Last Admin Dose Admin Acetaminophen (Tylenol) 650 mg Q4H PRN ORAL fever 07/12/17 15:00 08/06/17 14:59 07/14/17 21:39 Albuterol/ Ipratropium (Albuterol/ Ipratropium) 3 ml Q4H PRN HHN sob 07/15/17 13:00 07/20/17 12:59 Albuterol/ Ipratropium (Albuterol/ Ipratropium) 3 ml TIDRT INH 07/15/17 13:00 07/17/17 12:59 07/15/17 13:31 Amiodarone HCl (Cordarone) 200 mg EVERY 12 HOURS ORAL 07/13/17 17:15 08/12/17 17:14 07/15/17 08:52 Chlorhexidine Gluconate (Mariah-Hex 2%) 1 applic DAILY@1999 TOPIC 07/12/17 20:00 08/07/17 19:59 07/14/17 21:37 Colistimethate Sodium (Colistin *inhalation use only*) 75 mg Q12HR@10,22 INH 07/12/17 22:00 07/17/17 21:59 07/15/17 09:28 Colistimethate Sodium (Colistin) 75 mg EVERY 12 HOURS IVP 07/13/17 21:00 07/17/17 15:59 07/15/17 09:28 Diltiazem HCl (Cardizem) 15 mg Q1H PRN IVP HR > 120 BPM 07/12/17 14:30 08/10/17 11:29 Heparin Sodium (Porcine) (Heparin 5000 units/ml) 5,000 units EVERY 12 HOURS SUBQ 07/12/17 21:00 08/06/17 20:59 07/15/17 08:53 Lorazepam (Ativan 2mg/ml 1ml) 2 mg Q4H PRN IV For Anxiety 07/15/17 14:15 07/22/17 14:14 UNV Meropenem 2 gm/ Sodium Chloride 110 ml @ 220 mls/hr Q12HR@1100,2300 IVPB 07/12/17 23:00 07/17/17 22:59 07/15/17 12:15 Ondansetron HCl (Zofran) 4 mg Q6H PRN IVP Nausea & Vomiting 07/12/17 15:30 08/06/17 15:29 Pantoprazole (Protonix) 40 mg DAILY IVP 07/13/17 09:00 08/07/17 08:59 07/15/17 08:52 Polyethylene Glycol (Miralax) 17 gm DAILYPRN PRN ORAL Constipation 07/12/17 15:30 08/06/17 15:29 Sodium Chloride 1,000 ml @ 50 mls/hr Q20H IV 07/12/17 15:15 08/11/17 15:14 07/15/17 02:18 Tigecycline 50 mg/ Dextrose 55 ml @ 110 mls/hr EVERY 12 HOURS IVPB 07/15/17 21:00 07/22/17 20:59 Allergies: Coded Allergies: ASPIRIN (Verified Allergy, Unknown, 07/07/17) Subjective Responsive with open eye, on vent , not verbal, Mg 1.5, K: 3.2 Objective Last Vital Signs Date Time Temp Pulse Resp B/P (MAP) Pulse Ox O2 Delivery O2 Flow Rate FiO2 07/15/17 13:34 116 26 100 Mechanical Ventilator 35 07/15/17 12:00 98.0 154/90 07/07/17 18:27 15.0 Laboratory Tests Test 07/15/17 03:30 Sodium Level 145 MMOL/L (136-145) Potassium Level 3.2 MMOL/L (3.5-5.1) L Chloride Level 107 MMOL/L (98-107) Carbon Dioxide Level 35 MMOL/L (21-32) H Anion Gap 3 mmol/L (5-15) L Blood Urea Nitrogen 10 mg/dL (7-18) Creatinine 0.9 MG/DL (0.55-1.30) Estimat Glomerular Filtration Rate mL/min (>60) Glucose Level 101 MG/DL (74-106) Calcium Level 8.9 MG/DL (8.5-10.1) Phosphorus Level 2.8 MG/DL (2.5-4.9) Magnesium Level 1.5 MG/DL (1.8-2.4) L Intake and Output 07/15/17 07/16/17 19:00 07:00 Intake Total 630 ml Balance 630 ml IV Total 300 ml Tube Feeding 330 ml Objective GENERAL: nonresponsive, cannot follow commands, able to open her eyes. HEAD AND NECK: PERRLA, and anicteric. NECK: Tracheostomy site is intact. LUNGS: Bilateral air entry. No wheezes, coarse breath sound. Right chest wall TLC. HEART: S1 and S2 RR. No murmur, ABDOMEN: Soft, nondistended, and nontender. PEG site is clean. EXTREMITIES: No cyanosis, clubbing, or edema. Muscle atrophy was noted. NEUROLOGIC: able to move left side, Right UE contacted. Assessment/Plan Assessment/Plan ASSESSMENT: 1. Septic shock improving. 2. Anemia s/p PRBC transfusion. 3. Pneumonia. 4. Acute on chronic respiratory failure, ventilator dependent, status post tracheostomy. 5. Dysphagia status post percutaneous endoscopic gastrostomy. 6. Acute kidney injury, 7. Seizure disorder. 8. Anemia 9. Hypernatremia 10. Hypokalemia. 11. hypomagnesemia. PLAN: Abx: Colistin, Ertapenem Discussed with Dr. Yu from [facility]. Code status: Full Code DVT prophylaxis with heparin subcutaneous. Tube feeding @ 55 cc/hr Monitor labs Ho Mcghee MD Jul 15, 2017 14:21
[2017-07-15 16:00] VITALS: BP 131/66
--- NOTE | 2017-07-15 18:27 | Cardiology Progress Note ---
Assessment/Plan Assessment/Plan patient is in stable sinus thythm on Amiodarone Subjective Subjective THe patient is on vent, has trach she opens her eyes she is agitated and does not reponsd appropriately Objective Last 24 Hour Vital Signs Date Time Temp Pulse Resp B/P (MAP) Pulse Ox O2 Delivery O2 Flow Rate FiO2 07/15/17 17:00 95 25 35 07/15/17 16:00 100.8 100 17 131/66 98 Mechanical Ventilator 35 07/15/17 16:00 97 07/15/17 16:00 35 07/15/17 15:10 101 20 35 07/15/17 13:34 116 26 100 Mechanical Ventilator 35 07/15/17 13:25 35 07/15/17 13:25 110 24 100 Mechanical Ventilator 35 07/15/17 13:00 116 22 35 07/15/17 12:00 98.0 96 33 154/90 99 Mechanical Ventilator 35 07/15/17 12:00 35 07/15/17 12:00 113 07/15/17 11:08 81 16 35 07/15/17 09:31 85 19 100 Mechanical Ventilator 35 07/15/17 09:25 78 16 100 Mechanical Ventilator 35 07/15/17 09:00 78 18 35 07/15/17 08:00 35 07/15/17 08:00 79 07/15/17 08:00 98.3 79 18 129/73 100 Mechanical Ventilator 35 07/15/17 06:59 69 18 35 07/15/17 05:24 63 16 35 07/15/17 04:00 98.3 57 16 116/54 100 Mechanical Ventilator 35 07/15/17 04:00 51 07/15/17 04:00 35 07/15/17 03:26 50 16 35 07/15/17 01:15 66 16 35 07/15/17 00:00 57 07/15/17 00:00 99.5 67 16 122/48 98 Mechanical Ventilator 35 07/14/17 23:18 60 16 35 07/14/17 22:46 71 16 100 Mechanical Ventilator 35 07/14/17 22:38 100.1 07/14/17 21:24 73 16 99 Mechanical Ventilator 35 07/14/17 21:23 75 16 35 07/14/17 20:00 35 07/14/17 20:00 99.1 72 16 122/67 98 35 07/14/17 20:00 74 07/14/17 18:56 74 16 35 General Appearance: on vent EENT: PERRL/EOMI Neck: other - tracheostomy Rhythm: NSR, SB Cardiovascular: normal rate Respiratory/Chest: crackles/rales Abdomen: soft Extremities: other Intake and Output 07/15/17 07/16/17 19:00 07:00 Intake Total 1315 ml Balance 1315 ml IV Total 820 ml Tube Feeding 495 ml Laboratory Tests Test 07/15/17 03:30 Sodium Level 145 MMOL/L (136-145) Potassium Level 3.2 MMOL/L (3.5-5.1) L Chloride Level 107 MMOL/L (98-107) Carbon Dioxide Level 35 MMOL/L (21-32) H Anion Gap 3 mmol/L (5-15) L Blood Urea Nitrogen 10 mg/dL (7-18) Creatinine 0.9 MG/DL (0.55-1.30) Estimat Glomerular Filtration Rate mL/min (>60) Glucose Level 101 MG/DL (74-106) Calcium Level 8.9 MG/DL (8.5-10.1) Phosphorus Level 2.8 MG/DL (2.5-4.9) Magnesium Level 1.5 MG/DL (1.8-2.4) THU NEVILLE Jul 15, 2017 18:27
[2017-07-15 20:00] VITALS: BP 121/83
[2017-07-15] MEDS: Dyna-Hex 2% Top Sol 2oz TOPIC SCH (20:21)
[2017-07-15] MEDS: D5W IVPB SCH (20:22)
[2017-07-15] MEDS: TIGECYCLINE IVPB SCH (20:22)
[2017-07-15] MEDS: LORazepam Inj 2mg/ml 1ml IV PRN (23:06)
[2017-07-16] VITALS: BP 96/42
[2017-07-16 04:00] VITALS: BP 152/69
[2017-07-16 04:38] LABS: BASOPHILS % (AUTO) 0.6 % (0.0-2.0); EOSINOPHILS % (AUTO) 2.7 % (0.0-3.0); LYMPHOCYTES % (AUTO) 20.9 % (20.0-45.0); MEAN CORPUSCULAR HEMOGLOBIN 31.1 PG (27.0-31.0); MEAN CORPUSCULAR HGB CONC 32.9 G/DL (32.0-36.0); MEAN CORPUSCULAR VOLUME 94 FL (80-99); MEAN PLATELET VOLUME 6.8 FL (6.5-10.1); MONOCYTES % (AUTO) 5.2 % (1.0-10.0); NEUTROPHILS % (AUTO) 70.5 % (45.0-75.0); PLATELET COUNT 366 K/UL (150-450); RED BLOOD COUNT 2.86 M/UL (4.20-5.40); RED CELL DISTRIBUTION WIDTH 13.7 % (11.6-14.8); WHITE BLOOD COUNT 12.2 K/UL (4.8-10.8)
[2017-07-16 04:48] LABS: ALANINE AMINOTRANSFERASE 22 U/L (12-78); ALBUMIN/GLOBULIN RATIO 0.3 (1.0-2.7); ANION GAP 5 mmol/L (5-15); ASPARTATE AMINO TRANSFERASE 22 U/L (15-37); CARBON DIOXIDE 33 MMOL/L (21-32); CHLORIDE 106 MMOL/L (98-107); CREATININE 0.9 MG/DL (0.55-1.30); MAGNESIUM 1.7 MG/DL (1.8-2.4); POTASSIUM 3.5 MMOL/L (3.5-5.1); SODIUM 144 MMOL/L (136-145); TOTAL PROTEIN 7.6 G/DL (6.4-8.2)
[2017-07-16] MEDS: Colistin 150mg vial IVP SCH ×3 (07:16→21:20)
[2017-07-16] MEDS: Colistin for inhalation INH SCH ×2 (07:16→22:03)
[2017-07-16] MEDS: Albuterol/Ipratropium 3ml neb INH SCH ×3 (07:16→19:55)
[2017-07-16 08:00] VITALS: BP 144/79
[2017-07-16] MEDS: Pantoprazole Inj IVP SCH (10:06)
[2017-07-16] MEDS: Amiodarone 200mg tab ORAL SCH (10:07)
[2017-07-16] MEDS: TIGECYCLINE IVPB SCH ×2 (10:08→21:20)
[2017-07-16] MEDS: D5W IVPB SCH ×2 (10:08→21:20)
[2017-07-16] MEDS: Heparin 5000 units/ml inj SUBQ SCH ×2 (10:09→21:21)
--- NOTE | 2017-07-16 10:39 | Pulmonology Progress Note ---
Assessment/Plan Assessment/Plan ASSESSMENT Acute on chronic respiratory failure VDRF/trach status sepsis with septic shock PNA with MDR Acinetobacter Acute kidney injury, likely due to septic shock Dysphagia, G tube chronic DVT RLE acute anemia requiring blood transfusion hypernatremia PAF HTN seizure disorder e/lyte abnormalities ( hypo K, hypo Mg) PLAN OF CARE MARTHA status vent/trach care pulmonary toilet ATC and prn baseline ABG stable keep current settings and titrate as needed Abx ID follows sputum cx + MDR Acinetobacter, blood cx repeated negative, initial +SCON, likely contaminant Cardio follows episode of PAF, added Amiodarone BP stable, no need for anti HTN Gentle IVF, renal parameters down to normal monitor lytes, additional Mg today avoid nephrotoxic Na better s/p 3 u PRBC, monitor counts, stool OB negative strict aspiration precautions, GT feeding, monitor tolerance venous Duplex with chronic DVT RLE, no acute DVT DVT GI prophylaxis bowel regimen case discussed and evaluated by supervising physician Subjective Allergies: Coded Allergies: ASPIRIN (Verified Allergy, Unknown, 07/07/17) Subjective mild leukocytosis today, afebrile less congested no signs of respiratory distress on current settings Objective Last 24 Hour Vital Signs Date Time Temp Pulse Resp B/P (MAP) Pulse Ox O2 Delivery O2 Flow Rate FiO2 07/16/17 09:12 80 18 35 07/16/17 08:00 35 07/16/17 08:00 79 07/16/17 08:00 97.9 79 16 144/79 97 Mechanical Ventilator 35 07/16/17 07:34 80 16 100 Mechanical Ventilator 35 07/16/17 07:20 67 16 100 Mechanical Ventilator 35 07/16/17 07:20 80 16 100 Mechanical Ventilator 35 07/16/17 07:19 57 16 35 07/16/17 07:12 35 07/16/17 07:12 57 16 100 Mechanical Ventilator 35 07/16/17 05:05 70 16 35 07/16/17 04:00 97.3 71 16 152/69 100 Mechanical Ventilator 71 07/16/17 04:00 59 07/16/17 04:00 35 07/16/17 03:46 93 16 35 07/16/17 01:52 90 16 35 07/16/17 00:00 68 07/16/17 00:00 97.3 58 16 96/42 100 Mechanical Ventilator 58 07/15/17 23:15 86 16 35 07/15/17 21:09 79 16 100 Mechanical Ventilator 35 07/15/17 21:09 63 16 100 Mechanical Ventilator 35 07/15/17 21:02 100 16 35 07/15/17 20:07 98 16 100 Mechanical Ventilator 35 07/15/17 20:07 35 07/15/17 20:00 98.1 74 16 121/83 100 Mechanical Ventilator 74 07/15/17 20:00 35 07/15/17 20:00 98 07/15/17 20:00 98 16 100 Mechanical Ventilator 35 07/15/17 19:45 98 16 35 07/15/17 18:06 98.5 07/15/17 17:00 95 25 35 07/15/17 16:00 100.8 100 17 131/66 98 Mechanical Ventilator 35 07/15/17 16:00 97 07/15/17 16:00 35 07/15/17 15:10 101 20 35 07/15/17 13:34 116 26 100 Mechanical Ventilator 35 07/15/17 13:25 35 07/15/17 13:25 110 24 100 Mechanical Ventilator 35 07/15/17 13:00 116 22 35 07/15/17 12:00 98.0 96 33 154/90 99 Mechanical Ventilator 35 07/15/17 12:00 35 07/15/17 12:00 113 07/15/17 11:08 81 16 35 Objective General Appearance: bedridden chronically ill looking, vent dependent AA female ; on vent AC 600-16-35% HEENT: status post trach - Portex #8, secretions small, yellow, thick Respiratory/Chest: still with rhonchi, scattered, but less c/w yesterday Abdomen: soft, non tender, non distended, other - G tube Neurologic/Psychiatric: bedridden , awake, poorly but responsive, Musculoskeletal: atrophy - BLE Laboratory Tests 07/16/17 03:40: White Blood Count 12.2H, Red Blood Count 2.86L, Hemoglobin 8.9L, Hematocrit 27.0L, Mean Corpuscular Volume 94, Mean Corpuscular Hemoglobin 31.1H, Mean Corpuscular Hemoglobin Concent 32.9, Red Cell Distribution Width 13.7, Platelet Count 366, Mean Platelet Volume 6.8, Neutrophils (%) (Auto) 70.5, Lymphocytes (% ) (Auto) 20.9, Monocytes (%) (Auto) 5.2, Eosinophils (%) (Auto) 2.7, Basophils ( %) (Auto) 0.6, Sodium Level 144, Potassium Level 3.5, Chloride Level 106, Carbon Dioxide Level 33H, Anion Gap 5, Blood Urea Nitrogen 17, Creatinine 0.9, Estimat Glomerular Filtration Rate , Glucose Level 85, Calcium Level 9.0, Phosphorus Level 3.6, Magnesium Level 1.7L, Total Bilirubin 0.3, Aspartate Amino Transf (AST/SGOT) 22, Alanine Aminotransferase (ALT/SGPT) 22, Alkaline Phosphatase 68, Total Protein 7.6, Albumin 1.7L, Globulin 5.9, Albumin/Globulin Ratio 0.3L Current Medications Medications (Trade) Dose Ordered Sig/Torsten Route PRN Reason Start Time Stop Time Status Last Admin Dose Admin Acetaminophen (Tylenol) 650 mg Q4H PRN ORAL fever 07/12/17 15:00 08/06/17 14:59 07/15/17 17:07 Albuterol/ Ipratropium (Albuterol/ Ipratropium) 3 ml Q4H PRN HHN sob 07/15/17 13:00 07/20/17 12:59 Albuterol/ Ipratropium (Albuterol/ Ipratropium) 3 ml TIDRT INH 07/15/17 13:00 07/17/17 12:59 07/16/17 07:16 Amiodarone HCl (Cordarone) 200 mg EVERY 12 HOURS ORAL 07/13/17 17:15 08/12/17 17:14 07/16/17 10:07 Chlorhexidine Gluconate (Mariah-Hex 2%) 1 applic DAILY@1999 TOPIC 07/12/17 20:00 08/07/17 19:59 07/15/17 20:21 Colistimethate Sodium (Colistin *inhalation use only*) 75 mg Q12HR@ INH 07/12/17 22:00 07/17/17 21:59 07/16/17 07:16 Colistimethate Sodium (Colistin) 75 mg EVERY 12 HOURS IVP 07/13/17 21:00 07/17/17 15:59 07/16/17 10:07 Diltiazem HCl (Cardizem) 15 mg Q1H PRN IVP HR > 120 BPM 07/12/17 14:30 08/10/17 11:29 Heparin Sodium (Porcine) (Heparin 5000 units/ml) 5,000 units EVERY 12 HOURS SUBQ 07/12/17 21:00 08/06/17 20:59 07/16/17 10:09 Lorazepam (Ativan 2mg/ml 1ml) 2 mg Q4H PRN IV For Anxiety 07/15/17 15:00 07/22/17 14:59 07/15/17 23:06 Meropenem 2 gm/ Sodium Chloride 110 ml @ 220 mls/hr Q12HR@1100,2300 IVPB 07/12/17 23:00 07/17/17 22:59 07/15/17 23:06 Ondansetron HCl (Zofran) 4 mg Q6H PRN IVP Nausea & Vomiting 07/12/17 15:30 08/06/17 15:29 Pantoprazole (Protonix) 40 mg DAILY IVP 07/13/17 09:00 08/07/17 08:59 07/16/17 10:06 Polyethylene Glycol (Miralax) 17 gm DAILYPRN PRN ORAL Constipation 07/12/17 15:30 08/06/17 15:29 Sodium Chloride 1,000 ml @ 50 mls/hr Q20H IV 07/12/17 15:15 08/11/17 15:14 07/15/17 18:37 Tigecycline 50 mg/ Dextrose 55 ml @ 110 mls/hr EVERY 12 HOURS IVPB 07/15/17 21:00 07/22/17 20:59 07/16/17 10:08 Tatiana Ramos NP ([facility]) Jul 16, 2017 10:39
[2017-07-16] MEDS ORDERED: Tubing IV Secondary IV ONE ×2 (10:42→18:56)
[2017-07-16 12:00] VITALS: BP 151/66
[2017-07-16] MEDS: Meropenem 2 GM in NS 110 ML IVPB SCH ×2 (12:21→23:00)
[2017-07-16] MEDS ORDERED: Miralax 17gm pkt GT PRN (13:30)
--- NOTE | 2017-07-16 14:50 | Internal Med Progress Note ---
Subjective Physician Name Ho Mcghee Attending Physician Ho Mcghee MD Current Medications Medications (Trade) Dose Ordered Sig/Torsten Route PRN Reason Start Time Stop Time Status Last Admin Dose Admin Acetaminophen (Tylenol) 650 mg Q4H PRN ORAL fever 07/12/17 15:00 08/06/17 14:59 07/15/17 17:07 Albuterol/ Ipratropium (Albuterol/ Ipratropium) 3 ml Q4H PRN HHN sob 07/15/17 13:00 07/20/17 12:59 Albuterol/ Ipratropium (Albuterol/ Ipratropium) 3 ml TIDRT INH 07/15/17 13:00 07/17/17 12:59 07/16/17 13:01 Amiodarone HCl (Cordarone) 200 mg EVERY 12 HOURS GT 07/16/17 21:00 08/12/17 17:14 Chlorhexidine Gluconate (Mariah-Hex 2%) 1 applic DAILY@1999 TOPIC 07/12/17 20:00 08/07/17 19:59 07/15/17 20:21 Colistimethate Sodium (Colistin *inhalation use only*) 75 mg Q12HR@10,22 INH 07/12/17 22:00 07/17/17 21:59 07/16/17 07:16 Colistimethate Sodium (Colistin) 75 mg EVERY 12 HOURS IVP 07/13/17 21:00 07/17/17 15:59 07/16/17 10:07 Diltiazem HCl (Cardizem) 15 mg Q1H PRN IVP HR > 120 BPM 07/12/17 14:30 08/10/17 11:29 Heparin Sodium (Porcine) (Heparin 5000 units/ml) 5,000 units EVERY 12 HOURS SUBQ 07/12/17 21:00 08/06/17 20:59 07/16/17 10:09 Lorazepam (Ativan 2mg/ml 1ml) 2 mg Q4H PRN IV For Anxiety 07/15/17 15:00 07/22/17 14:59 07/15/17 23:06 Meropenem 2 gm/ Sodium Chloride 110 ml @ 220 mls/hr Q12HR@1100,2300 IVPB 07/12/17 23:00 07/17/17 22:59 07/16/17 12:21 Ondansetron HCl (Zofran) 4 mg Q6H PRN IVP Nausea & Vomiting 07/12/17 15:30 08/06/17 15:29 Pantoprazole (Protonix) 40 mg DAILY IVP 07/13/17 09:00 08/07/17 08:59 07/16/17 10:06 Polyethylene Glycol (Miralax) 17 gm DAILYPRN PRN GT Constipation 07/16/17 13:30 08/06/17 15:29 Sodium Chloride 1,000 ml @ 50 mls/hr Q20H IV 07/12/17 15:15 08/11/17 15:14 07/15/17 18:37 Tigecycline 50 mg/ Dextrose 55 ml @ 110 mls/hr EVERY 12 HOURS IVPB 07/15/17 21:00 07/22/17 20:59 07/16/17 10:08 Allergies: Coded Allergies: ASPIRIN (Verified Allergy, Unknown, 07/07/17) Subjective Responsive with open eye, on vent , not verbal, Mg 1.7 Objective Last Vital Signs Date Time Temp Pulse Resp B/P (MAP) Pulse Ox O2 Delivery O2 Flow Rate FiO2 07/16/17 13:04 75 16 100 Mechanical Ventilator 35 07/16/17 12:00 98.2 151/66 07/07/17 18:27 15.0 Laboratory Tests Test 07/16/17 03:40 White Blood Count 12.2 K/UL (4.8-10.8) H Red Blood Count 2.86 M/UL (4.20-5.40) L Hemoglobin 8.9 G/DL (12.0-16.0) L Hematocrit 27.0 % (37.0-47.0) L Mean Corpuscular Volume 94 FL (80-99) Mean Corpuscular Hemoglobin 31.1 PG (27.0-31.0) H Mean Corpuscular Hemoglobin Concent 32.9 G/DL (32.0-36.0) Red Cell Distribution Width 13.7 % (11.6-14.8) Platelet Count 366 K/UL (150-450) Mean Platelet Volume 6.8 FL (6.5-10.1) Neutrophils (%) (Auto) 70.5 % (45.0-75.0) Lymphocytes (%) (Auto) 20.9 % (20.0-45.0) Monocytes (%) (Auto) 5.2 % (1.0-10.0) Eosinophils (%) (Auto) 2.7 % (0.0-3.0) Basophils (%) (Auto) 0.6 % (0.0-2.0) Sodium Level 144 MMOL/L (136-145) Potassium Level 3.5 MMOL/L (3.5-5.1) Chloride Level 106 MMOL/L (98-107) Carbon Dioxide Level 33 MMOL/L (21-32) H Anion Gap 5 mmol/L (5-15) Blood Urea Nitrogen 17 mg/dL (7-18) Creatinine 0.9 MG/DL (0.55-1.30) Estimat Glomerular Filtration Rate mL/min (>60) Glucose Level 85 MG/DL (74-106) Calcium Level 9.0 MG/DL (8.5-10.1) Phosphorus Level 3.6 MG/DL (2.5-4.9) Magnesium Level 1.7 MG/DL (1.8-2.4) L Total Bilirubin 0.3 MG/DL (0.2-1.0) Aspartate Amino Transf (AST/SGOT) 22 U/L (15-37) Alanine Aminotransferase (ALT/SGPT) 22 U/L (12-78) Alkaline Phosphatase 68 U/L (46-116) Total Protein 7.6 G/DL (6.4-8.2) Albumin 1.7 G/DL (3.4-5.0) L Globulin 5.9 g/dL Albumin/Globulin Ratio 0.3 (1.0-2.7) L Intake and Output 07/16/17 07/17/17 19:00 07:00 Intake Total 875 ml Balance 875 ml IV Total 460 ml Tube Feeding 385 ml Other 30 ml Objective GENERAL: nonresponsive, cannot follow commands, able to open her eyes. HEAD AND NECK: PERRLA, and anicteric. NECK: Tracheostomy site is intact. LUNGS: Bilateral air entry. No wheezes, coarse breath sound. Right chest wall TLC. HEART: S1 and S2 RR. No murmur, ABDOMEN: Soft, nondistended, and nontender. PEG site is clean. EXTREMITIES: No cyanosis, clubbing, or edema. Muscle atrophy was noted. NEUROLOGIC: able to move left side, Right UE contacted. Assessment/Plan Assessment/Plan ASSESSMENT: 1. Septic shock improving. 2. Anemia s/p PRBC transfusion. 3. Pneumonia. 4. Acute on chronic respiratory failure, ventilator dependent, status post tracheostomy. 5. Dysphagia status post percutaneous endoscopic gastrostomy. 6. Acute kidney injury, 7. Seizure disorder. 8. Anemia 9. Hypernatremia 10. Hypokalemia. 11. hypomagnesemia. PLAN: Abx: Colistin, Ertapenem, Tigecycline Discussed with Dr. Yu from [facility]. Code status: Full Code DVT prophylaxis with heparin subcutaneous. Tube feeding @ 55 cc/hr Monitor labs Mg IV Ho Mcghee MD Jul 16, 2017 14:50
[2017-07-16 16:00] VITALS: BP_SYST 140; BP_SYST 150; BP_DIAS 74; BP_DIAS 89
--- NOTE | 2017-07-16 16:10 | Cardiology Report ---
APPROVED REPORT EKG Measurement Heart [id number] Sinus tachycardia Left ventricular hypertrophy with repolarization abnormality Abnormal ECG
--- NOTE | 2017-07-16 18:58 | Cardiology Progress Note ---
Assessment/Plan Assessment/Plan patient is in stable sinus thythm on Amiodarone Subjective Subjective THe patient is on vent, has trach she opens her eyes has tremor and is agitated no cardiac complaints Objective Last 24 Hour Vital Signs Date Time Temp Pulse Resp B/P (MAP) Pulse Ox O2 Delivery O2 Flow Rate FiO2 07/16/17 17:04 84 18 35 07/16/17 16:00 80 07/16/17 16:00 35 07/16/17 16:00 98.2 80 17 140/74 96 Mechanical Ventilator 35 07/16/17 15:10 85 16 35 07/16/17 13:04 75 16 100 Mechanical Ventilator 35 07/16/17 13:03 76 16 35 07/16/17 12:56 35 07/16/17 12:56 79 16 100 Mechanical Ventilator 35 07/16/17 12:00 98.2 80 17 151/66 96 Mechanical Ventilator 35 07/16/17 12:00 35 07/16/17 12:00 77 07/16/17 11:29 82 16 35 07/16/17 09:12 80 18 35 07/16/17 08:00 35 07/16/17 08:00 79 07/16/17 08:00 97.9 79 16 144/79 97 Mechanical Ventilator 35 07/16/17 07:34 80 16 100 Mechanical Ventilator 35 07/16/17 07:20 67 16 100 Mechanical Ventilator 35 07/16/17 07:20 80 16 100 Mechanical Ventilator 35 07/16/17 07:19 57 16 35 07/16/17 07:12 35 07/16/17 07:12 57 16 100 Mechanical Ventilator 35 07/16/17 05:05 70 16 35 07/16/17 04:00 97.3 71 16 152/69 100 Mechanical Ventilator 71 07/16/17 04:00 59 07/16/17 04:00 35 07/16/17 03:46 93 16 35 07/16/17 01:52 90 16 35 07/16/17 00:00 68 07/16/17 00:00 97.3 58 16 96/42 100 Mechanical Ventilator 58 07/15/17 23:15 86 16 35 07/15/17 21:09 79 16 100 Mechanical Ventilator 35 07/15/17 21:09 63 16 100 Mechanical Ventilator 35 07/15/17 21:02 100 16 35 07/15/17 20:07 98 16 100 Mechanical Ventilator 35 07/15/17 20:07 35 07/15/17 20:00 98.1 74 16 121/83 100 Mechanical Ventilator 74 07/15/17 20:00 35 07/15/17 20:00 98 07/15/17 20:00 98 16 100 Mechanical Ventilator 35 07/15/17 19:45 98 16 35 General Appearance: other - on ventilcator EENT: PERRL/EOMI Neck: other - tracheostomy Rhythm: ST Cardiovascular: normal rate Respiratory/Chest: rhonchi - bilaterally Abdomen: soft Neurologic: other - tremor Intake and Output 07/16/17 07/17/17 19:00 07:00 Intake Total 1295 ml Balance 1295 ml IV Total 660 ml Tube Feeding 605 ml Other 30 ml Laboratory Tests Test 07/16/17 03:40 White Blood Count 12.2 K/UL (4.8-10.8) H Red Blood Count 2.86 M/UL (4.20-5.40) L Hemoglobin 8.9 G/DL (12.0-16.0) L Hematocrit 27.0 % (37.0-47.0) L Mean Corpuscular Volume 94 FL (80-99) Mean Corpuscular Hemoglobin 31.1 PG (27.0-31.0) H Mean Corpuscular Hemoglobin Concent 32.9 G/DL (32.0-36.0) Red Cell Distribution Width 13.7 % (11.6-14.8) Platelet Count 366 K/UL (150-450) Mean Platelet Volume 6.8 FL (6.5-10.1) Neutrophils (%) (Auto) 70.5 % (45.0-75.0) Lymphocytes (%) (Auto) 20.9 % (20.0-45.0) Monocytes (%) (Auto) 5.2 % (1.0-10.0) Eosinophils (%) (Auto) 2.7 % (0.0-3.0) Basophils (%) (Auto) 0.6 % (0.0-2.0) Sodium Level 144 MMOL/L (136-145) Potassium Level 3.5 MMOL/L (3.5-5.1) Chloride Level 106 MMOL/L (98-107) Carbon Dioxide Level 33 MMOL/L (21-32) H Anion Gap 5 mmol/L (5-15) Blood Urea Nitrogen 17 mg/dL (7-18) Creatinine 0.9 MG/DL (0.55-1.30) Estimat Glomerular Filtration Rate mL/min (>60) Glucose Level 85 MG/DL (74-106) Calcium Level 9.0 MG/DL (8.5-10.1) Phosphorus Level 3.6 MG/DL (2.5-4.9) Magnesium Level 1.7 MG/DL (1.8-2.4) L Total Bilirubin 0.3 MG/DL (0.2-1.0) Aspartate Amino Transf (AST/SGOT) 22 U/L (15-37) Alanine Aminotransferase (ALT/SGPT) 22 U/L (12-78) Alkaline Phosphatase 68 U/L (46-116) Total Protein 7.6 G/DL (6.4-8.2) Albumin 1.7 G/DL (3.4-5.0) L Globulin 5.9 g/dL Albumin/Globulin Ratio 0.3 (1.0-2.7) THU NEVILLE Jul 16, 2017 18:58
[2017-07-16 20:55] VITALS: BP 156/79
[2017-07-16] MEDS: Dyna-Hex 2% Top Sol 2oz TOPIC SCH (21:18)
[2017-07-16] MEDS: Amiodarone 200mg tab GT SCH (21:20)
[2017-07-17] VITALS: BP 146/70
[2017-07-17] MEDS: LORazepam Inj 2mg/ml 1ml IV PRN (02:30)
[2017-07-17 04:00] VITALS: BP 140/66
[2017-07-17 05:09] LABS: BASOPHILS % (AUTO) 0.8 % (0.0-2.0); EOSINOPHILS % (AUTO) 3.9 % (0.0-3.0); LYMPHOCYTES % (AUTO) 18.6 % (20.0-45.0); MEAN CORPUSCULAR HEMOGLOBIN 30.8 PG (27.0-31.0); MEAN CORPUSCULAR HGB CONC 32.9 G/DL (32.0-36.0); MEAN CORPUSCULAR VOLUME 94 FL (80-99); MEAN PLATELET VOLUME 6.8 FL (6.5-10.1); NEUTROPHILS % (AUTO) 67.7 % (45.0-75.0); PLATELET COUNT 369 K/UL (150-450); RED BLOOD COUNT 2.73 M/UL (4.20-5.40); RED CELL DISTRIBUTION WIDTH 13.9 % (11.6-14.8); WHITE BLOOD COUNT 10.4 K/UL (4.8-10.8)
[2017-07-17 05:47] LABS: ANION GAP 6 mmol/L (5-15); CALCIUM 8.9 MG/DL (8.5-10.1); CARBON DIOXIDE 31 MMOL/L (21-32); CHLORIDE 105 MMOL/L (98-107); CREATININE 0.9 MG/DL (0.55-1.30); POTASSIUM 3.5 MMOL/L (3.5-5.1); SODIUM 142 MMOL/L (136-145)
[2017-07-17] MEDS: Albuterol/Ipratropium 3ml neb INH SCH (06:56)
[2017-07-17 08:22] VITALS: BP 124/62
--- NOTE | 2017-07-17 08:46 | Diagnostic Imaging Report ---
Indication: SOB Technique: One view of the chest Comparison: 07/12/2017 Findings: Again demonstrated is diffuse bilateral parenchymal disease, most interstitial, appearing similar on the right, slightly improved on the left. There is decreased pleural fluid on the left. Impression: Improved left pleural effusion, slightly improved left-sided pulmonary parenchymal disease, over 5 days.
[2017-07-17] MEDS: Colistin for inhalation INH SCH ×2 (09:31→21:30)
--- NOTE | 2017-07-17 09:56 | Infectious Diseases Prog Note ---
Assessment/Plan Assessment/Plan Septic shock, SP PNA Scx: MDR- ACB (S. Colistin, Tygecicline, Minocycline, Polymixin B); improving -CXR 07/17: Improved left pleural effusion, slightly improved left-sided pulmonaryparenchymal disease, over 5 days. -CXR: Interstitial edema, vascular prominence, borderline cardiomegaly and hazy basilar opacities probably pleural effusions demonstrated. +ve blood cx : CONS 1/4 , m/l contaminant - repeat BCx NGTD Fever - intermittent, low grade - improving Leukocytosis SP Ctr line 07/07 HTN seizure disorder Chronic VDRF SP trach PEG Chronic recanalized RLE DVT MRSA, VRE colonized No ABX allergies Full Code Plan: -continue Meropenem d# / , Colistin INH/ IV d# / -14 , Tygacil d # 3/5-7 -requested ceftazidime-avibactam on 07/17 ( 07/13 SP IV Vancomycin # 7 ) ( 07/08 SP Amikacin d# 2 ) -f/u Cx ( blood ) -Monitor CBC/BMP, temperatures -Monitor CXR -trach/peg care Subjective Allergies: Coded Allergies: ASPIRIN (Verified Allergy, Unknown, 07/07/17) Subjective afebrile in 36hrs no leukocytosis repeat Bcx NTD Objective Vital Signs Last 24 Hour Vital Signs Date Time Temp Pulse Resp B/P (MAP) Pulse Ox O2 Delivery O2 Flow Rate FiO2 07/17/17 09:31 73 16 99 Mechanical Ventilator 35 07/17/17 09:27 73 16 35 07/17/17 08:22 98.2 81 16 124/62 100 Mechanical Ventilator 35 07/17/17 08:00 35 07/17/17 08:00 81 07/17/17 07:06 86 16 100 Mechanical Ventilator 35 07/17/17 06:56 35 07/17/17 06:56 70 16 100 Mechanical Ventilator 35 07/17/17 06:56 70 16 35 07/17/17 05:07 82 16 35 07/17/17 04:00 98.7 81 16 140/66 100 Mechanical Ventilator 35 07/17/17 04:00 77 07/17/17 04:00 35 07/17/17 03:41 79 17 35 07/17/17 01:30 85 17 35 07/17/17 00:00 35 07/17/17 00:00 98.8 77 16 146/70 97 Mechanical Ventilator 35 07/17/17 00:00 72 07/16/17 23:51 84 16 35 07/16/17 22:10 84 16 100 Mechanical Ventilator 35 07/16/17 22:02 89 16 100 Mechanical Ventilator 35 07/16/17 22:01 75 16 35 07/16/17 20:55 98.4 80 16 156/79 97 Mechanical Ventilator 35 07/16/17 20:22 71 16 100 Mechanical Ventilator 35 07/16/17 20:00 35 07/16/17 20:00 79 07/16/17 20:00 80 07/16/17 19:56 35 07/16/17 19:56 70 16 100 Mechanical Ventilator 35 07/16/17 19:55 71 16 35 07/16/17 17:04 84 18 35 07/16/17 16:00 80 07/16/17 16:00 35 07/16/17 16:00 98.2 80 17 140/74 96 Mechanical Ventilator 35 07/16/17 15:10 85 16 35 07/16/17 13:04 75 16 100 Mechanical Ventilator 35 07/16/17 13:03 76 16 35 07/16/17 12:56 35 07/16/17 12:56 79 16 100 Mechanical Ventilator 35 07/16/17 12:00 98.2 80 17 151/66 96 Mechanical Ventilator 35 07/16/17 12:00 35 07/16/17 12:00 77 07/16/17 11:29 82 16 35 Height (Feet): 5 Height (Inches): 4.00 Weight (Pounds): 155 Objective HEENT: anicteric Respiratory/Chest: no respiratory distress Cardiovascular: regular rhythm Abdomen: no mass Laboratory Tests Test 07/17/17 03:50 White Blood Count 10.4 K/UL (4.8-10.8) Red Blood Count 2.73 M/UL (4.20-5.40) L Hemoglobin 8.4 G/DL (12.0-16.0) L Hematocrit 25.6 % (37.0-47.0) L Mean Corpuscular Volume 94 FL (80-99) Mean Corpuscular Hemoglobin 30.8 PG (27.0-31.0) Mean Corpuscular Hemoglobin Concent 32.9 G/DL (32.0-36.0) Red Cell Distribution Width 13.9 % (11.6-14.8) Platelet Count 369 K/UL (150-450) Mean Platelet Volume 6.8 FL (6.5-10.1) Neutrophils (%) (Auto) 67.7 % (45.0-75.0) Lymphocytes (%) (Auto) 18.6 % (20.0-45.0) L Monocytes (%) (Auto) 9.0 % (1.0-10.0) Eosinophils (%) (Auto) 3.9 % (0.0-3.0) H Basophils (%) (Auto) 0.8 % (0.0-2.0) Sodium Level 142 MMOL/L (136-145) Potassium Level 3.5 MMOL/L (3.5-5.1) Chloride Level 105 MMOL/L (98-107) Carbon Dioxide Level 31 MMOL/L (21-32) Anion Gap 6 mmol/L (5-15) Blood Urea Nitrogen 16 mg/dL (7-18) Creatinine 0.9 MG/DL (0.55-1.30) Estimat Glomerular Filtration Rate mL/min (>60) Glucose Level 99 MG/DL (74-106) Calcium Level 8.9 MG/DL (8.5-10.1) Current Medications Medications (Trade) Dose Ordered Sig/Torsten Route PRN Reason Start Time Stop Time Status Last Admin Dose Admin Acetaminophen (Tylenol) 650 mg Q4H PRN ORAL fever 07/12/17 15:00 08/06/17 14:59 07/15/17 17:07 Albuterol/ Ipratropium (Albuterol/ Ipratropium) 3 ml Q4H PRN HHN sob 07/15/17 13:00 07/20/17 12:59 Albuterol/ Ipratropium (Albuterol/ Ipratropium) 3 ml TIDRT INH 07/15/17 13:00 07/17/17 12:59 07/17/17 06:56 Amiodarone HCl (Cordarone) 200 mg EVERY 12 HOURS GT 07/16/17 21:00 08/12/17 17:14 07/16/17 21:20 Chlorhexidine Gluconate (Mariah-Hex 2%) 1 applic DAILY@1999 TOPIC 07/12/17 20:00 08/07/17 19:59 07/16/17 21:18 Colistimethate Sodium (Colistin *inhalation use only*) 75 mg Q12HR@10,22 INH 07/12/17 22:00 07/17/17 21:59 07/17/17 09:31 Colistimethate Sodium (Colistin) 75 mg EVERY 12 HOURS IVP 07/13/17 21:00 07/17/17 15:59 07/16/17 21:20 Diltiazem HCl (Cardizem) 15 mg Q1H PRN IVP HR > 120 BPM 07/12/17 14:30 08/10/17 11:29 Heparin Sodium (Porcine) (Heparin 5000 units/ml) 5,000 units EVERY 12 HOURS SUBQ 07/12/17 21:00 08/06/17 20:59 07/16/17 21:21 Lorazepam (Ativan 2mg/ml 1ml) 2 mg Q4H PRN IV For Anxiety 07/15/17 15:00 07/22/17 14:59 07/17/17 02:30 Meropenem 2 gm/ Sodium Chloride 110 ml @ 220 mls/hr Q12HR@1100,2300 IVPB 07/12/17 23:00 07/21/17 23:59 07/16/17 23:00 Ondansetron HCl (Zofran) 4 mg Q6H PRN IVP Nausea & Vomiting 07/12/17 15:30 08/06/17 15:29 Pantoprazole (Protonix) 40 mg DAILY IVP 07/13/17 09:00 08/07/17 08:59 07/16/17 10:06 Polyethylene Glycol (Miralax) 17 gm DAILYPRN PRN GT Constipation 07/16/17 13:30 08/06/17 15:29 Sodium Chloride 1,000 ml @ 50 mls/hr Q20H IV 07/12/17 15:15 08/11/17 15:14 07/16/17 18:44 Tigecycline 50 mg/ Dextrose 55 ml @ 110 mls/hr EVERY 12 HOURS IVPB 07/15/17 21:00 07/22/17 20:59 07/16/17 21:20 Yane Umana M.D. Jul 17, 2017 09:56
--- NOTE | 2017-07-17 10:48 | Cardiology Report ---
APPROVED REPORT EXAM: Two-dimensional and M-mode echocardiogram with Doppler and color Doppler. INDICATION Left ventricular function M-Mode DIMENSIONS IVSd0.6 (0.7-1.1cm)Left Atrium (MM)1.6 (1.6-4.0cm) LVDd3.2 (3.5-5.6cm)Aortic Root3.2 (2.0-3.7cm) PWd0.7 (0.7-1.1cm)Aortic Cusp Exc.2.0 (1.5-2.0cm) LVDs2.1 (2.5-4.0cm) PWs0.7 cm Technically difficult study due to poor acoustical windows. Normal left ventricular chamber size, systolic function and wall motion. Left ventricular ejection fraction estimated to be 60-65%. No evidence of left ventricular hypertrophy. No evidence of pericardial or pleural effusion. Mild bi-atrial enlargement by 2D. Focal aortic valve sclerosis with adequate cusp excursion. Thickened mitral valve leaflets with normal excursion. Mild mitral annulus and aortic root calcification. Pulmonic valve not well visualized. Normal tricuspid valve structure. IVC dilated at 2.3cm non-collapsible with respiration indicate increased RA pressure. RA pressure of 20mmHg. A color flow and spectral Doppler study was performed and revealed: No aortic regurgitation. No mitral regurgitation. Mitral diastolic velocities suggest reduced left ventricular relaxation c/w diastolic dysfunction grade 1. Trace tricuspid regurgitation. Tricuspid systolic velocities suggests peak right ventricular systolic pressure of 50 mmHg Consistent with moderate pulmonary hypertension.
--- NOTE | 2017-07-17 11:13 | Pulmonology Progress Note ---
Assessment/Plan Problems: (1) Acute and chronic respiratory failure (2) Pneumonia (3) Anemia (4) Fever (5) Seizure disorder (6) HTN (hypertension) (7) Tracheostomy care Respiratory: monitor respiratory rate, CXR Cardiac: continue to monitor HR/BP Renal: F/U I&O, keep IV fluid, other - dcIV fluid Infectious Disease: continue antibiotics, other - meropenem, colsitine inhalation Endocrine: monitor blood sugar Hematologic: monitor H/H Neurologic: PRN Ativan Affect: PRN ativan Subjective ROS Limited/Unobtainable: No Constitutional: Reports: no symptoms HEENT: Repors: no symptoms Respiratory: Reports: no symptoms Cardiovascular: Reports: no symptoms Allergies: Coded Allergies: ASPIRIN (Verified Allergy, Unknown, 07/07/17) Objective Last 24 Hour Vital Signs Date Time Temp Pulse Resp B/P (MAP) Pulse Ox O2 Delivery O2 Flow Rate FiO2 07/17/17 09:31 73 16 99 Mechanical Ventilator 35 07/17/17 09:27 73 16 35 07/17/17 08:22 98.2 81 16 124/62 100 Mechanical Ventilator 35 07/17/17 08:00 35 07/17/17 08:00 81 07/17/17 07:06 86 16 100 Mechanical Ventilator 35 07/17/17 06:56 35 07/17/17 06:56 70 16 100 Mechanical Ventilator 35 07/17/17 06:56 70 16 35 07/17/17 05:07 82 16 35 07/17/17 04:00 98.7 81 16 140/66 100 Mechanical Ventilator 35 07/17/17 04:00 77 07/17/17 04:00 35 07/17/17 03:41 79 17 35 07/17/17 01:30 85 17 35 07/17/17 00:00 35 07/17/17 00:00 98.8 77 16 146/70 97 Mechanical Ventilator 35 07/17/17 00:00 72 07/16/17 23:51 84 16 35 07/16/17 22:10 84 16 100 Mechanical Ventilator 35 07/16/17 22:02 89 16 100 Mechanical Ventilator 35 07/16/17 22:01 75 16 35 07/16/17 20:55 98.4 80 16 156/79 97 Mechanical Ventilator 35 07/16/17 20:22 71 16 100 Mechanical Ventilator 35 07/16/17 20:00 35 07/16/17 20:00 79 07/16/17 20:00 80 07/16/17 19:56 35 07/16/17 19:56 70 16 100 Mechanical Ventilator 35 07/16/17 19:55 71 16 35 07/16/17 17:04 84 18 35 07/16/17 16:00 80 07/16/17 16:00 35 07/16/17 16:00 98.2 80 17 140/74 96 Mechanical Ventilator 35 07/16/17 15:10 85 16 35 07/16/17 13:04 75 16 100 Mechanical Ventilator 35 07/16/17 13:03 76 16 35 07/16/17 12:56 35 07/16/17 12:56 79 16 100 Mechanical Ventilator 35 07/16/17 12:00 98.2 80 17 151/66 96 Mechanical Ventilator 35 07/16/17 12:00 35 07/16/17 12:00 77 07/16/17 11:29 82 16 35 General Appearance: WD/WN HEENT: normocephalic, atraumatic Respiratory/Chest: chest wall non-tender, lungs clear Cardiovascular: normal peripheral pulses, normal rate Abdomen: soft, non tender, no organomegaly Genitourinary: normal external genitalia Extremities: no cyanosis Skin: no lesions Neurologic/Psychiatric: no motor/sensory deficits, normal mood/affect Musculoskeletal: no effusion Laboratory Tests 07/17/17 03:50: White Blood Count 10.4, Red Blood Count 2.73L, Hemoglobin 8.4L, Hematocrit 25.6L , Mean Corpuscular Volume 94, Mean Corpuscular Hemoglobin 30.8, Mean Corpuscular Hemoglobin Concent 32.9, Red Cell Distribution Width 13.9, Platelet Count 369, Mean Platelet Volume 6.8, Neutrophils (%) (Auto) 67.7, Lymphocytes (% ) (Auto) 18.6L, Monocytes (%) (Auto) 9.0, Eosinophils (%) (Auto) 3.9H, Basophils (%) (Auto) 0.8, Sodium Level 142, Potassium Level 3.5, Chloride Level 105, Carbon Dioxide Level 31, Anion Gap 6, Blood Urea Nitrogen 16, Creatinine 0.9, Estimat Glomerular Filtration Rate , Glucose Level 99, Calcium Level 8.9 Current Medications Medications (Trade) Dose Ordered Sig/Torsten Route PRN Reason Start Time Stop Time Status Last Admin Dose Admin Acetaminophen (Tylenol) 650 mg Q4H PRN ORAL fever 07/12/17 15:00 08/06/17 14:59 07/15/17 17:07 Albuterol/ Ipratropium (Albuterol/ Ipratropium) 3 ml Q4H PRN HHN sob 07/15/17 13:00 07/20/17 12:59 Albuterol/ Ipratropium (Albuterol/ Ipratropium) 3 ml TIDRT INH 07/15/17 13:00 07/17/17 12:59 07/17/17 06:56 Amiodarone HCl (Cordarone) 200 mg EVERY 12 HOURS GT 07/16/17 21:00 08/12/17 17:14 07/16/17 21:20 Chlorhexidine Gluconate (Mariah-Hex 2%) 1 applic DAILY@1999 TOPIC 07/12/17 20:00 08/07/17 19:59 07/16/17 21:18 Colistimethate Sodium (Colistin *inhalation use only*) 75 mg Q12HR@10,22 INH 07/12/17 22:00 07/17/17 21:59 07/17/17 09:31 Colistimethate Sodium (Colistin) 75 mg EVERY 12 HOURS IVP 07/13/17 21:00 07/17/17 15:59 07/16/17 21:20 Diltiazem HCl (Cardizem) 15 mg Q1H PRN IVP HR > 120 BPM 07/12/17 14:30 08/10/17 11:29 Heparin Sodium (Porcine) (Heparin 5000 units/ml) 5,000 units EVERY 12 HOURS SUBQ 07/12/17 21:00 08/06/17 20:59 07/16/17 21:21 Lorazepam (Ativan 2mg/ml 1ml) 2 mg Q4H PRN IV For Anxiety 07/15/17 15:00 07/22/17 14:59 07/17/17 02:30 Meropenem 2 gm/ Sodium Chloride 110 ml @ 220 mls/hr Q12HR@1100,2300 IVPB 07/12/17 23:00 07/21/17 23:59 07/16/17 23:00 Ondansetron HCl (Zofran) 4 mg Q6H PRN IVP Nausea & Vomiting 07/12/17 15:30 08/06/17 15:29 Pantoprazole (Protonix) 40 mg DAILY IVP 07/13/17 09:00 08/07/17 08:59 07/16/17 10:06 Polyethylene Glycol (Miralax) 17 gm DAILYPRN PRN GT Constipation 07/16/17 13:30 08/06/17 15:29 Sodium Chloride 1,000 ml @ 50 mls/hr Q20H IV 07/12/17 15:15 08/11/17 15:14 07/16/17 18:44 Tigecycline 50 mg/ Dextrose 55 ml @ 110 mls/hr EVERY 12 HOURS IVPB 07/15/17 21:00 07/22/17 20:59 07/16/17 21:20 COBY LEBLANC Jul 17, 2017 11:13
[2017-07-17] MEDS: Pantoprazole Inj IVP SCH (11:27)
[2017-07-17] MEDS: D5W IVPB SCH ×2 (11:27→20:32)
[2017-07-17] MEDS: Colistin 150mg vial IVP SCH ×2 (11:27→20:32)
[2017-07-17] MEDS: TIGECYCLINE IVPB SCH ×2 (11:27→20:32)
[2017-07-17] MEDS: Amiodarone 200mg tab GT SCH (11:28)
[2017-07-17] MEDS: Heparin 5000 units/ml inj SUBQ SCH ×2 (11:30→20:34)
[2017-07-17 12:00] VITALS: BP 145/63
--- NOTE | 2017-07-17 12:34 | General Progress Note ---
Progress Note Progress Note Bioethics This 82 year old woman skilled nursing resident with dementia, schizophrenia, seizure disorder is totally dependent on a ventilator and tube feedings. She open her eyes occasionally. Hervtreating physicians believe that further aggressive care is futile. While she does not have cancer or other terminal condition she has serious life threatening illness which combined with baseline medical circumstances will cause vital functions to fail. It is appropriate to make this patient DNR. Treatment should focus on comfort centered care. Discussed with Sonia Son, sociail worker and member of the Bioethics Committee. Magalie Mcpherson M.D. MAGALIE MCPHERSON Jul 17, 2017 12:34
[2017-07-17] MEDS: Meropenem 2 GM in NS 110 ML IVPB SCH ×2 (13:27→23:05)
[2017-07-17 16:00] VITALS: BP 155/83
--- NOTE | 2017-07-17 18:52 | Cardiology Progress Note ---
Assessment/Plan Assessment/Plan 1. Tachycardia consistent with atrial fibrillation now in sinus 2. Pulmonary infiltrates. 3. Chronic respiratory failure, on a ventilator. 4. Anemia. 5. Hypernatremia. 6. Gastrostomy tube dependence. 7. Ventilator dependence. trop neg tele reviewed sinus no afib any more echo normla lv function , p htn to reviewed venous duplex showed recanalized thrombus right side off beta agonist if has recurrent afib may need to consider if an anticoag candidate but with all that is going on with her would start amiod to see if we can prevent afib recurrence and need for anticoagulation change amiod to 200 mg dialy Subjective ROS Limited/Unobtainable: Yes Objective Last 24 Hour Vital Signs Date Time Temp Pulse Resp B/P (MAP) Pulse Ox O2 Delivery O2 Flow Rate FiO2 07/17/17 17:06 95 20 35 07/17/17 16:00 35 07/17/17 16:00 97.9 93 18 155/83 100 Mechanical Ventilator 35 07/17/17 16:00 90 07/17/17 14:57 84 17 35 07/17/17 12:51 72 16 35 07/17/17 12:00 35 07/17/17 12:00 72 07/17/17 12:00 98.2 75 18 145/63 100 Mechanical Ventilator 35 07/17/17 11:17 73 16 35 07/17/17 09:41 70 16 100 Mechanical Ventilator 35 07/17/17 09:31 73 16 99 Mechanical Ventilator 35 07/17/17 09:27 73 16 35 07/17/17 08:22 98.2 81 16 124/62 100 Mechanical Ventilator 35 07/17/17 08:00 35 07/17/17 08:00 81 07/17/17 07:06 86 16 100 Mechanical Ventilator 35 07/17/17 06:56 35 07/17/17 06:56 70 16 100 Mechanical Ventilator 35 07/17/17 06:56 70 16 35 07/17/17 05:07 82 16 35 07/17/17 04:00 98.7 81 16 140/66 100 Mechanical Ventilator 35 07/17/17 04:00 77 07/17/17 04:00 35 07/17/17 03:41 79 17 35 07/17/17 01:30 85 17 35 07/17/17 00:00 35 07/17/17 00:00 98.8 77 16 146/70 97 Mechanical Ventilator 35 07/17/17 00:00 72 07/16/17 23:51 84 16 35 07/16/17 22:10 84 16 100 Mechanical Ventilator 35 07/16/17 22:02 89 16 100 Mechanical Ventilator 35 07/16/17 22:01 75 16 35 07/16/17 20:55 98.4 80 16 156/79 97 Mechanical Ventilator 35 07/16/17 20:22 71 16 100 Mechanical Ventilator 35 07/16/17 20:00 35 07/16/17 20:00 79 07/16/17 20:00 80 07/16/17 19:56 35 07/16/17 19:56 70 16 100 Mechanical Ventilator 35 07/16/17 19:55 71 16 35 General Appearance: on vent, patient on isolation Intake and Output 07/17/17 07/18/17 19:00 07:00 Intake Total 755 ml Output Total 1200 ml Balance -445 ml Intake Free Water 150 ml Tube Feeding 605 ml Output Urine Total 1200 ml Laboratory Tests Test 07/17/17 03:50 White Blood Count 10.4 K/UL (4.8-10.8) Red Blood Count 2.73 M/UL (4.20-5.40) L Hemoglobin 8.4 G/DL (12.0-16.0) L Hematocrit 25.6 % (37.0-47.0) L Mean Corpuscular Volume 94 FL (80-99) Mean Corpuscular Hemoglobin 30.8 PG (27.0-31.0) Mean Corpuscular Hemoglobin Concent 32.9 G/DL (32.0-36.0) Red Cell Distribution Width 13.9 % (11.6-14.8) Platelet Count 369 K/UL (150-450) Mean Platelet Volume 6.8 FL (6.5-10.1) Neutrophils (%) (Auto) 67.7 % (45.0-75.0) Lymphocytes (%) (Auto) 18.6 % (20.0-45.0) L Monocytes (%) (Auto) 9.0 % (1.0-10.0) Eosinophils (%) (Auto) 3.9 % (0.0-3.0) H Basophils (%) (Auto) 0.8 % (0.0-2.0) Sodium Level 142 MMOL/L (136-145) Potassium Level 3.5 MMOL/L (3.5-5.1) Chloride Level 105 MMOL/L (98-107) Carbon Dioxide Level 31 MMOL/L (21-32) Anion Gap 6 mmol/L (5-15) Blood Urea Nitrogen 16 mg/dL (7-18) Creatinine 0.9 MG/DL (0.55-1.30) Estimat Glomerular Filtration Rate mL/min (>60) Glucose Level 99 MG/DL (74-106) Calcium Level 8.9 MG/DL (8.5-10.1) ALAINA SINGLETON Jul 17, 2017 18:52
--- NOTE | 2017-07-17 19:09 | Internal Med Progress Note ---
Subjective Date of Service: Jul 17, 2017 Physician Name Tomi Sim Attending Physician Ho Mcghee MD Current Medications Medications (Trade) Dose Ordered Sig/Torsten Route PRN Reason Start Time Stop Time Status Last Admin Dose Admin Acetaminophen (Tylenol) 650 mg Q4H PRN ORAL fever 07/12/17 15:00 08/06/17 14:59 07/15/17 17:07 Albuterol/ Ipratropium (Albuterol/ Ipratropium) 3 ml Q4H PRN HHN sob 07/15/17 13:00 07/20/17 12:59 Amiodarone HCl (Cordarone) 200 mg DAILY GT 07/18/17 09:00 08/17/17 08:59 Chlorhexidine Gluconate (Mariah-Hex 2%) 1 applic DAILY@1999 TOPIC 07/12/17 20:00 08/07/17 19:59 07/16/17 21:18 Colistimethate Sodium (Colistin *inhalation use only*) 75 mg Q12HR@ INH 07/12/17 22:00 07/22/17 21:59 07/17/17 09:31 Colistimethate Sodium (Colistin) 75 mg EVERY 12 HOURS IVP 07/13/17 21:00 07/22/17 20:59 07/17/17 11:27 Diltiazem HCl (Cardizem) 15 mg Q1H PRN IVP HR > 120 BPM 07/12/17 14:30 08/10/17 11:29 Heparin Sodium (Porcine) (Heparin 5000 units/ml) 5,000 units EVERY 12 HOURS SUBQ 07/12/17 21:00 08/06/17 20:59 07/17/17 11:30 Lorazepam (Ativan 2mg/ml 1ml) 2 mg Q4H PRN IV For Anxiety 07/15/17 15:00 07/22/17 14:59 07/17/17 02:30 Meropenem 2 gm/ Sodium Chloride 110 ml @ 220 mls/hr Q12HR@1100,2300 IVPB 07/12/17 23:00 07/21/17 23:59 07/17/17 13:27 Ondansetron HCl (Zofran) 4 mg Q6H PRN IVP Nausea & Vomiting 07/12/17 15:30 08/06/17 15:29 Pantoprazole (Protonix) 40 mg DAILY IVP 07/13/17 09:00 08/07/17 08:59 07/17/17 11:27 Polyethylene Glycol (Miralax) 17 gm DAILYPRN PRN GT Constipation 07/16/17 13:30 08/06/17 15:29 Tigecycline 50 mg/ Dextrose 55 ml @ 110 mls/hr EVERY 12 HOURS IVPB 07/15/17 21:00 07/22/17 20:59 07/17/17 11:27 Allergies: Coded Allergies: ASPIRIN (Verified Allergy, Unknown, 07/07/17) ROS Limited/Unobtainable: Yes Subjective 82 YO F admitted with hypotension and pneumonia. MARTHA. Intubated and sedated. Cover for Int Pernell-dr Mchgee. Objective Last Vital Signs Date Time Temp Pulse Resp B/P (MAP) Pulse Ox O2 Delivery O2 Flow Rate FiO2 07/17/17 17:06 95 20 35 07/17/17 16:00 97.9 155/83 100 Mechanical Ventilator Laboratory Tests Test 07/17/17 03:50 White Blood Count 10.4 K/UL (4.8-10.8) Red Blood Count 2.73 M/UL (4.20-5.40) L Hemoglobin 8.4 G/DL (12.0-16.0) L Hematocrit 25.6 % (37.0-47.0) L Mean Corpuscular Volume 94 FL (80-99) Mean Corpuscular Hemoglobin 30.8 PG (27.0-31.0) Mean Corpuscular Hemoglobin Concent 32.9 G/DL (32.0-36.0) Red Cell Distribution Width 13.9 % (11.6-14.8) Platelet Count 369 K/UL (150-450) Mean Platelet Volume 6.8 FL (6.5-10.1) Neutrophils (%) (Auto) 67.7 % (45.0-75.0) Lymphocytes (%) (Auto) 18.6 % (20.0-45.0) L Monocytes (%) (Auto) 9.0 % (1.0-10.0) Eosinophils (%) (Auto) 3.9 % (0.0-3.0) H Basophils (%) (Auto) 0.8 % (0.0-2.0) Sodium Level 142 MMOL/L (136-145) Potassium Level 3.5 MMOL/L (3.5-5.1) Chloride Level 105 MMOL/L (98-107) Carbon Dioxide Level 31 MMOL/L (21-32) Anion Gap 6 mmol/L (5-15) Blood Urea Nitrogen 16 mg/dL (7-18) Creatinine 0.9 MG/DL (0.55-1.30) Estimat Glomerular Filtration Rate mL/min (>60) Glucose Level 99 MG/DL (74-106) Calcium Level 8.9 MG/DL (8.5-10.1) Intake and Output 07/17/17 07/18/17 19:00 07:00 Intake Total 755 ml Output Total 1200 ml Balance -445 ml Intake Free Water 150 ml Tube Feeding 605 ml Output Urine Total 1200 ml Objective General Appearance: WD/WN, moderate distress, lethargic EENT: PERRL/EOMI, normal ENT inspection Neck: trach; non-tender, normal alignment, supple, other - tracheostomy Cardiovascular: normal peripheral pulses, normal rate, regular rhythm, no gallop/murmur, no JVD Respiratory/Chest: Mechanical vent; chest wall non-tender, crackles/rales, rhonchi - bilaterally, expiratory wheezing Abdomen: normal bowel sounds, non tender, soft, no organomegaly, no mass Extremities: non-tender Neurologic: psych rn II-XII grossly normal Skin: normal pigmentation, warm/dry Assessment/Plan Problem List: (1) Fever (2) Hypotension Assessment & Plan: Due to Sepsis-Cont antibiotics per ID (3) Sepsis Assessment & Plan: Await cultures. Cont colistin, ertapenem and tigecyckine per ID. (4) Respiratory failure Assessment & Plan: Due to pneumonia. Cont mech vent-see pulmonary note. (5) Tracheostomy care (6) HTN (hypertension) Assessment & Plan: Current hypotensive. (7) Seizure disorder (8) Dysphagia Assessment & Plan: G-tube feeds per GI (9) Pneumonia (10) Septic shock (11) Anemia Assessment & Plan: Worsening; S/P transfusion 2 unit PRBC 07/09/17 (12) Hypernatremia Assessment & Plan: Change IV fluid to 1/2 NS Assessment/Plan See social work note concerning bioethics TOMI Steinberg Jul 17, 2017 19:08
[2017-07-17 20:00] VITALS: BP 152/85
[2017-07-17] MEDS: Dyna-Hex 2% Top Sol 2oz TOPIC SCH (20:32)
[2017-07-18] VITALS: BP 153/75
[2017-07-18 04:00] VITALS: BP 152/78
[2017-07-18 04:27] LABS: BASOPHILS % (AUTO) 1.1 % (0.0-2.0); LYMPHOCYTES % (AUTO) 24.3 % (20.0-45.0); MEAN CORPUSCULAR HEMOGLOBIN 30.7 PG (27.0-31.0); MEAN CORPUSCULAR HGB CONC 32.5 G/DL (32.0-36.0); MEAN CORPUSCULAR VOLUME 94 FL (80-99); MEAN PLATELET VOLUME 6.4 FL (6.5-10.1); NEUTROPHILS % (AUTO) 62.6 % (45.0-75.0); PLATELET COUNT 412 K/UL (150-450); RED CELL DISTRIBUTION WIDTH 13.5 % (11.6-14.8); WHITE BLOOD COUNT 10.4 K/UL (4.8-10.8)
[2017-07-18 04:35] LABS: ANION GAP 2 mmol/L (5-15); CALCIUM 8.8 MG/DL (8.5-10.1); CARBON DIOXIDE 36 MMOL/L (21-32); CHLORIDE 102 MMOL/L (98-107); CREATININE 0.8 MG/DL (0.55-1.30); POTASSIUM 3.8 MMOL/L (3.5-5.1); SODIUM 140 MMOL/L (136-145)
[2017-07-18 08:00] VITALS: BP 128/54
[2017-07-18] MEDS: Amiodarone 200mg tab GT SCH (08:52)
[2017-07-18] MEDS: Pantoprazole Inj IVP SCH (08:53)
[2017-07-18] MEDS: Colistin 150mg vial IVP SCH ×2 (08:54→20:11)
[2017-07-18] MEDS: TIGECYCLINE IVPB SCH ×2 (08:55→20:12)
[2017-07-18] MEDS: D5W IVPB SCH ×2 (08:55→20:12)
[2017-07-18] MEDS: Heparin 5000 units/ml inj SUBQ SCH ×2 (08:56→20:12)
--- NOTE | 2017-07-18 09:44 | Pulmonology Progress Note ---
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 Subjective ROS Limited/Unobtainable: No Constitutional: Reports: no symptoms HEENT: Repors: no symptoms Allergies: Coded Allergies: ASPIRIN (Verified Allergy, Unknown, 07/07/17) Objective Last 24 Hour Vital Signs Date Time Temp Pulse Resp B/P (MAP) Pulse Ox O2 Delivery O2 Flow Rate FiO2 07/18/17 08:00 98.2 84 24 128/54 97 Mechanical Ventilator 35 07/18/17 05:10 76 16 35 07/18/17 04:00 67 07/18/17 04:00 98.4 79 16 152/78 99 Mechanical Ventilator 35 07/18/17 04:00 35 07/18/17 03:22 87 19 35 07/18/17 01:34 78 17 35 07/18/17 00:01 82 20 35 07/18/17 00:00 98.8 77 16 153/75 99 Mechanical Ventilator 35 07/18/17 00:00 35 07/18/17 00:00 77 07/17/17 21:37 86 16 100 Mechanical Ventilator 35 07/17/17 21:29 83 19 98 Mechanical Ventilator 35 07/17/17 21:29 86 19 35 07/17/17 20:00 91 07/17/17 20:00 98.4 95 16 152/85 100 Mechanical Ventilator 35 07/17/17 20:00 35 07/17/17 19:52 90 16 35 07/17/17 17:06 95 20 35 07/17/17 16:00 35 07/17/17 16:00 97.9 93 18 155/83 100 Mechanical Ventilator 35 07/17/17 16:00 90 07/17/17 14:57 84 17 35 07/17/17 12:51 72 16 35 07/17/17 12:00 35 07/17/17 12:00 72 07/17/17 12:00 98.2 75 18 145/63 100 Mechanical Ventilator 35 07/17/17 11:17 73 16 35 General Appearance: WD/WN HEENT: normocephalic, anicteric Respiratory/Chest: chest wall non-tender, lungs clear Breasts: no masses Cardiovascular: regular rhythm Abdomen: normal bowel sounds, no organomegaly Extremities: no cyanosis, no clubbing Skin: no rash Laboratory Tests 07/18/17 03:30: White Blood Count 10.4, Red Blood Count 3.00L, Hemoglobin 9.2L, Hematocrit 28.4L , Mean Corpuscular Volume 94, Mean Corpuscular Hemoglobin 30.7, Mean Corpuscular Hemoglobin Concent 32.5, Red Cell Distribution Width 13.5, Platelet Count 412, Mean Platelet Volume 6.4L, Neutrophils (%) (Auto) 62.6, Lymphocytes ( %) (Auto) 24.3, Monocytes (%) (Auto) 7.0, Eosinophils (%) (Auto) 5.0H, Basophils (%) (Auto) 1.1, Sodium Level 140, Potassium Level 3.8, Chloride Level 102, Carbon Dioxide Level 36H, Anion Gap 2L, Blood Urea Nitrogen 18, Creatinine 0.8, Estimat Glomerular Filtration Rate , Glucose Level 74, Calcium Level 8.8 Current Medications Medications (Trade) Dose Ordered Sig/Torsten Route PRN Reason Start Time Stop Time Status Last Admin Dose Admin Acetaminophen (Tylenol) 650 mg Q4H PRN ORAL fever 07/12/17 15:00 08/06/17 14:59 07/15/17 17:07 Albuterol/ Ipratropium (Albuterol/ Ipratropium) 3 ml Q4H PRN HHN sob 07/15/17 13:00 07/20/17 12:59 Amiodarone HCl (Cordarone) 200 mg DAILY GT 07/18/17 09:00 08/17/17 08:59 07/18/17 08:52 Chlorhexidine Gluconate (Mariah-Hex 2%) 1 applic DAILY@1999 TOPIC 07/12/17 20:00 08/07/17 19:59 07/17/17 20:32 Colistimethate Sodium (Colistin *inhalation use only*) 75 mg Q12HR@10,22 INH 07/12/17 22:00 07/22/17 21:59 07/17/17 21:30 Colistimethate Sodium (Colistin) 75 mg EVERY 12 HOURS IVP 07/13/17 21:00 07/22/17 20:59 07/18/17 08:54 Diltiazem HCl (Cardizem) 15 mg Q1H PRN IVP HR > 120 BPM 07/12/17 14:30 08/10/17 11:29 Heparin Sodium (Porcine) (Heparin 5000 units/ml) 5,000 units EVERY 12 HOURS SUBQ 07/12/17 21:00 08/06/17 20:59 07/18/17 08:56 Lorazepam (Ativan 2mg/ml 1ml) 2 mg Q4H PRN IV For Anxiety 07/15/17 15:00 07/22/17 14:59 07/17/17 02:30 Meropenem 2 gm/ Sodium Chloride 110 ml @ 220 mls/hr Q12HR@1100,2300 IVPB 07/12/17 23:00 07/21/17 23:59 07/17/17 23:05 Ondansetron HCl (Zofran) 4 mg Q6H PRN IVP Nausea & Vomiting 07/12/17 15:30 08/06/17 15:29 Pantoprazole (Protonix) 40 mg DAILY IVP 07/13/17 09:00 08/07/17 08:59 07/18/17 08:53 Polyethylene Glycol (Miralax) 17 gm DAILYPRN PRN GT Constipation 07/16/17 13:30 08/06/17 15:29 Tigecycline 50 mg/ Dextrose 55 ml @ 110 mls/hr EVERY 12 HOURS IVPB 07/15/17 21:00 07/22/17 20:59 07/18/17 08:55 COBY LEBLANC Jul 18, 2017 09:44
[2017-07-18] MEDS: LORazepam Inj 2mg/ml 1ml IV PRN (10:28)
[2017-07-18] MEDS: Meropenem 2 GM in NS 110 ML IVPB SCH ×2 (10:28→23:14)
[2017-07-18] MEDS: Colistin for inhalation INH SCH ×2 (11:39→22:20)
[2017-07-18 12:00] VITALS: BP 137/65
--- NOTE | 2017-07-18 12:05 | Infectious Diseases Prog Note ---
Assessment/Plan Assessment/Plan Septic shock, SP PNA Scx: MDR- ACB (S. Colistin, Tygecicline, Minocycline, Polymixin B); improving -CXR 07/17: Improved left pleural effusion, slightly improved left-sided pulmonaryparenchymal disease, over 5 days. -CXR: Interstitial edema, vascular prominence, borderline cardiomegaly and hazy basilar opacities probably pleural effusions demonstrated. 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, VRE colonized No ABX allergies Full Code Plan: -continue Meropenem d# / , Colistin INH/ IV d# / -14 , Tygacil d # 4/5-7 -requested ceftazidime-avibactam on 07/17 ( 07/13 SP IV Vancomycin # 7 ) ( 07/08 SP Amikacin d# 2 ) -Monitor CBC/BMP, temperatures -Monitor CXR -trach/peg care Subjective Allergies: Coded Allergies: ASPIRIN (Verified Allergy, Unknown, 07/07/17) Subjective afebrile in >48hrs no leukocytosis repeat Bcx Neg Objective Vital Signs Last 24 Hour Vital Signs Date Time Temp Pulse Resp B/P (MAP) Pulse Ox O2 Delivery O2 Flow Rate FiO2 07/18/17 11:48 72 16 30 07/18/17 09:26 80 20 35 07/18/17 08:00 70 07/18/17 08:00 98.2 84 24 128/54 97 Mechanical Ventilator 35 07/18/17 08:00 35 07/18/17 06:33 84 17 35 07/18/17 05:10 76 16 35 07/18/17 04:00 67 07/18/17 04:00 98.4 79 16 152/78 99 Mechanical Ventilator 35 07/18/17 04:00 35 07/18/17 03:22 87 19 35 07/18/17 01:34 78 17 35 07/18/17 00:01 82 20 35 07/18/17 00:00 98.8 77 16 153/75 99 Mechanical Ventilator 35 07/18/17 00:00 35 07/18/17 00:00 77 07/17/17 21:37 86 16 100 Mechanical Ventilator 35 07/17/17 21:29 83 19 98 Mechanical Ventilator 35 07/17/17 21:29 86 19 35 07/17/17 20:00 91 07/17/17 20:00 98.4 95 16 152/85 100 Mechanical Ventilator 35 07/17/17 20:00 35 07/17/17 19:52 90 16 35 07/17/17 17:06 95 20 35 07/17/17 16:00 35 07/17/17 16:00 97.9 93 18 155/83 100 Mechanical Ventilator 35 07/17/17 16:00 90 07/17/17 14:57 84 17 35 07/17/17 12:51 72 16 35 Height (Feet): 5 Height (Inches): 4.00 Weight (Pounds): 155 Objective HEENT: anicteric Respiratory/Chest: no respiratory distress Cardiovascular: regular rhythm Abdomen: no mass Laboratory Tests Test 07/18/17 03:30 White Blood Count 10.4 K/UL (4.8-10.8) Red Blood Count 3.00 M/UL (4.20-5.40) L Hemoglobin 9.2 G/DL (12.0-16.0) L Hematocrit 28.4 % (37.0-47.0) L Mean Corpuscular Volume 94 FL (80-99) Mean Corpuscular Hemoglobin 30.7 PG (27.0-31.0) Mean Corpuscular Hemoglobin Concent 32.5 G/DL (32.0-36.0) Red Cell Distribution Width 13.5 % (11.6-14.8) Platelet Count 412 K/UL (150-450) Mean Platelet Volume 6.4 FL (6.5-10.1) L Neutrophils (%) (Auto) 62.6 % (45.0-75.0) Lymphocytes (%) (Auto) 24.3 % (20.0-45.0) Monocytes (%) (Auto) 7.0 % (1.0-10.0) Eosinophils (%) (Auto) 5.0 % (0.0-3.0) H Basophils (%) (Auto) 1.1 % (0.0-2.0) Sodium Level 140 MMOL/L (136-145) Potassium Level 3.8 MMOL/L (3.5-5.1) Chloride Level 102 MMOL/L (98-107) Carbon Dioxide Level 36 MMOL/L (21-32) H Anion Gap 2 mmol/L (5-15) L Blood Urea Nitrogen 18 mg/dL (7-18) Creatinine 0.8 MG/DL (0.55-1.30) Estimat Glomerular Filtration Rate mL/min (>60) Glucose Level 74 MG/DL (74-106) Calcium Level 8.8 MG/DL (8.5-10.1) Current Medications Medications (Trade) Dose Ordered Sig/Torsten Route PRN Reason Start Time Stop Time Status Last Admin Dose Admin Acetaminophen (Tylenol) 650 mg Q4H PRN ORAL fever 07/12/17 15:00 08/06/17 14:59 07/15/17 17:07 Albuterol/ Ipratropium (Albuterol/ Ipratropium) 3 ml Q4H PRN HHN sob 07/15/17 13:00 07/20/17 12:59 Amiodarone HCl (Cordarone) 200 mg DAILY GT 07/18/17 09:00 08/17/17 08:59 07/18/17 08:52 Chlorhexidine Gluconate (Mariah-Hex 2%) 1 applic DAILY@1999 TOPIC 07/12/17 20:00 08/07/17 19:59 07/17/17 20:32 Colistimethate Sodium (Colistin *inhalation use only*) 75 mg Q12HR@10,22 INH 07/12/17 22:00 07/22/17 21:59 07/18/17 11:39 Colistimethate Sodium (Colistin) 75 mg EVERY 12 HOURS IVP 07/13/17 21:00 07/22/17 20:59 07/18/17 08:54 Diltiazem HCl (Cardizem) 15 mg Q1H PRN IVP HR > 120 BPM 07/12/17 14:30 08/10/17 11:29 Heparin Sodium (Porcine) (Heparin 5000 units/ml) 5,000 units EVERY 12 HOURS SUBQ 07/12/17 21:00 08/06/17 20:59 07/18/17 08:56 Lorazepam (Ativan 2mg/ml 1ml) 2 mg Q4H PRN IV For Anxiety 07/15/17 15:00 07/22/17 14:59 07/18/17 10:28 Meropenem 2 gm/ Sodium Chloride 110 ml @ 220 mls/hr Q12HR@1100,2300 IVPB 07/12/17 23:00 07/21/17 23:59 07/18/17 10:28 Ondansetron HCl (Zofran) 4 mg Q6H PRN IVP Nausea & Vomiting 07/12/17 15:30 08/06/17 15:29 Pantoprazole (Protonix) 40 mg DAILY IVP 07/13/17 09:00 08/07/17 08:59 07/18/17 08:53 Polyethylene Glycol (Miralax) 17 gm DAILYPRN PRN GT Constipation 07/16/17 13:30 08/06/17 15:29 Tigecycline 50 mg/ Dextrose 55 ml @ 110 mls/hr EVERY 12 HOURS IVPB 07/15/17 21:00 07/22/17 20:59 07/18/17 08:55 Yane Umana M.D. Jul 18, 2017 12:05
--- NOTE | 2017-07-18 15:12 | Cardiology Report ---
APPROVED REPORT EKG Measurement Heart [id number] Normal sinus rhythm Prolonged QT Abnormal ECG
[2017-07-18 16:00] VITALS: BP 140/77
--- NOTE | 2017-07-18 16:20 | Cardiology Progress Note ---
Assessment/Plan Assessment/Plan 1. Tachycardia consistent with atrial fibrillation now in sinus 2. Pulmonary infiltrates. 3. Chronic respiratory failure, on a ventilator. 4. Anemia. 5. Hypernatremia. 6. Gastrostomy tube dependence. 7. Ventilator dependence. trop neg tele reviewed sinus no afib any more as of 07/18/2017 echo normla lv function , p htn to reviewed venous duplex showed recanalized thrombus right side if has recurrent afib may need to consider if an anticoag candidate but with all that is going on with her would start amiod to see if we can prevent afib recurrence and need for anticoagulation change amiod to 200 mg dialy Subjective ROS Limited/Unobtainable: Yes Objective Last 24 Hour Vital Signs Date Time Temp Pulse Resp B/P (MAP) Pulse Ox O2 Delivery O2 Flow Rate FiO2 07/18/17 16:00 30 07/18/17 13:06 77 16 30 07/18/17 12:00 35 07/18/17 12:00 72 07/18/17 12:00 98.1 74 16 137/65 100 Mechanical Ventilator 30 07/18/17 11:48 72 16 30 07/18/17 11:48 79 16 100 Mechanical Ventilator 30 07/18/17 11:39 77 16 100 Mechanical Ventilator 30 07/18/17 09:26 80 20 35 07/18/17 08:00 70 07/18/17 08:00 98.2 84 24 128/54 97 Mechanical Ventilator 35 07/18/17 08:00 35 07/18/17 06:33 84 17 35 07/18/17 05:10 76 16 35 07/18/17 04:00 67 07/18/17 04:00 98.4 79 16 152/78 99 Mechanical Ventilator 35 07/18/17 04:00 35 07/18/17 03:22 87 19 35 07/18/17 01:34 78 17 35 07/18/17 00:01 82 20 35 07/18/17 00:00 98.8 77 16 153/75 99 Mechanical Ventilator 35 07/18/17 00:00 35 07/18/17 00:00 77 07/17/17 21:37 86 16 100 Mechanical Ventilator 35 07/17/17 21:29 83 19 98 Mechanical Ventilator 35 07/17/17 21:29 86 19 35 07/17/17 20:00 91 07/17/17 20:00 98.4 95 16 152/85 100 Mechanical Ventilator 35 07/17/17 20:00 35 07/17/17 19:52 90 16 35 07/17/17 17:06 95 20 35 General Appearance: on vent, patient on isolation Intake and Output 07/18/17 07/19/17 18:59 06:59 Intake Total 690 ml Balance 690 ml IV Total 165 ml Tube Feeding 495 ml Other 30 ml Laboratory Tests Test 07/18/17 03:30 White Blood Count 10.4 K/UL (4.8-10.8) Red Blood Count 3.00 M/UL (4.20-5.40) L Hemoglobin 9.2 G/DL (12.0-16.0) L Hematocrit 28.4 % (37.0-47.0) L Mean Corpuscular Volume 94 FL (80-99) Mean Corpuscular Hemoglobin 30.7 PG (27.0-31.0) Mean Corpuscular Hemoglobin Concent 32.5 G/DL (32.0-36.0) Red Cell Distribution Width 13.5 % (11.6-14.8) Platelet Count 412 K/UL (150-450) Mean Platelet Volume 6.4 FL (6.5-10.1) L Neutrophils (%) (Auto) 62.6 % (45.0-75.0) Lymphocytes (%) (Auto) 24.3 % (20.0-45.0) Monocytes (%) (Auto) 7.0 % (1.0-10.0) Eosinophils (%) (Auto) 5.0 % (0.0-3.0) H Basophils (%) (Auto) 1.1 % (0.0-2.0) Sodium Level 140 MMOL/L (136-145) Potassium Level 3.8 MMOL/L (3.5-5.1) Chloride Level 102 MMOL/L (98-107) Carbon Dioxide Level 36 MMOL/L (21-32) H Anion Gap 2 mmol/L (5-15) L Blood Urea Nitrogen 18 mg/dL (7-18) Creatinine 0.8 MG/DL (0.55-1.30) Estimat Glomerular Filtration Rate mL/min (>60) Glucose Level 74 MG/DL (74-106) Calcium Level 8.8 MG/DL (8.5-10.1) DANESHRAD,ALAINA Jul 18, 2017 16:20
--- NOTE | 2017-07-18 16:54 | Internal Med Progress Note ---
Subjective Date of Service: Jul 18, 2017 Physician Name MoreauTomi Attending Physician Ho Mcghee MD Current Medications Medications (Trade) Dose Ordered Sig/Torsten Route PRN Reason Start Time Stop Time Status Last Admin Dose Admin Acetaminophen (Tylenol) 650 mg Q4H PRN ORAL fever 07/12/17 15:00 08/06/17 14:59 07/15/17 17:07 Albuterol/ Ipratropium (Albuterol/ Ipratropium) 3 ml Q4H PRN HHN sob 07/15/17 13:00 07/20/17 12:59 Amiodarone HCl (Cordarone) 200 mg DAILY GT 07/18/17 09:00 08/17/17 08:59 07/18/17 08:52 Chlorhexidine Gluconate (Mariah-Hex 2%) 1 applic DAILY@1999 TOPIC 07/12/17 20:00 08/07/17 19:59 07/17/17 20:32 Colistimethate Sodium (Colistin *inhalation use only*) 75 mg Q12HR@ INH 07/12/17 22:00 07/22/17 21:59 07/18/17 11:39 Colistimethate Sodium (Colistin) 75 mg EVERY 12 HOURS IVP 07/13/17 21:00 07/22/17 20:59 07/18/17 08:54 Diltiazem HCl (Cardizem) 15 mg Q1H PRN IVP HR > 120 BPM 07/12/17 14:30 08/10/17 11:29 Heparin Sodium (Porcine) (Heparin 5000 units/ml) 5,000 units EVERY 12 HOURS SUBQ 07/12/17 21:00 08/06/17 20:59 07/18/17 08:56 Lorazepam (Ativan 2mg/ml 1ml) 2 mg Q4H PRN IV For Anxiety 07/15/17 15:00 07/22/17 14:59 07/18/17 10:28 Meropenem 2 gm/ Sodium Chloride 110 ml @ 220 mls/hr Q12HR@1100,2300 IVPB 07/12/17 23:00 07/21/17 23:59 07/18/17 10:28 Ondansetron HCl (Zofran) 4 mg Q6H PRN IVP Nausea & Vomiting 07/12/17 15:30 08/06/17 15:29 Pantoprazole (Protonix) 40 mg DAILY IVP 07/13/17 09:00 08/07/17 08:59 07/18/17 08:53 Polyethylene Glycol (Miralax) 17 gm DAILYPRN PRN GT Constipation 07/16/17 13:30 08/06/17 15:29 Tigecycline 50 mg/ Dextrose 55 ml @ 110 mls/hr EVERY 12 HOURS IVPB 07/15/17 21:00 07/22/17 20:59 07/18/17 08:55 Allergies: Coded Allergies: ASPIRIN (Verified Allergy, Unknown, 07/07/17) ROS Limited/Unobtainable: Yes Subjective 82 YO F admitted with hypotension and pneumonia. MARTHA. Intubated and sedated. Cover for Int Med-dr Mcghee. Objective Last Vital Signs Date Time Temp Pulse Resp B/P (MAP) Pulse Ox O2 Delivery O2 Flow Rate FiO2 07/18/17 16:00 98.4 83 16 140/77 99 Mechanical Ventilator 30 Laboratory Tests Test 07/18/17 03:30 White Blood Count 10.4 K/UL (4.8-10.8) Red Blood Count 3.00 M/UL (4.20-5.40) L Hemoglobin 9.2 G/DL (12.0-16.0) L Hematocrit 28.4 % (37.0-47.0) L Mean Corpuscular Volume 94 FL (80-99) Mean Corpuscular Hemoglobin 30.7 PG (27.0-31.0) Mean Corpuscular Hemoglobin Concent 32.5 G/DL (32.0-36.0) Red Cell Distribution Width 13.5 % (11.6-14.8) Platelet Count 412 K/UL (150-450) Mean Platelet Volume 6.4 FL (6.5-10.1) L Neutrophils (%) (Auto) 62.6 % (45.0-75.0) Lymphocytes (%) (Auto) 24.3 % (20.0-45.0) Monocytes (%) (Auto) 7.0 % (1.0-10.0) Eosinophils (%) (Auto) 5.0 % (0.0-3.0) H Basophils (%) (Auto) 1.1 % (0.0-2.0) Sodium Level 140 MMOL/L (136-145) Potassium Level 3.8 MMOL/L (3.5-5.1) Chloride Level 102 MMOL/L (98-107) Carbon Dioxide Level 36 MMOL/L (21-32) H Anion Gap 2 mmol/L (5-15) L Blood Urea Nitrogen 18 mg/dL (7-18) Creatinine 0.8 MG/DL (0.55-1.30) Estimat Glomerular Filtration Rate mL/min (>60) Glucose Level 74 MG/DL (74-106) Calcium Level 8.8 MG/DL (8.5-10.1) Intake and Output 07/18/17 07/19/17 19:00 07:00 Intake Total 635 ml Balance 635 ml IV Total 165 ml Tube Feeding 440 ml Other 30 ml Objective General Appearance: WD/WN, moderate distress, lethargic EENT: PERRL/EOMI, normal ENT inspection Neck: trach; non-tender, normal alignment, supple, other - tracheostomy Cardiovascular: normal peripheral pulses, normal rate, regular rhythm, no gallop/murmur, no JVD Respiratory/Chest: Mechanical vent; chest wall non-tender, crackles/rales, rhonchi - bilaterally, expiratory wheezing Abdomen: normal bowel sounds, non tender, soft, no organomegaly, no mass Extremities: non-tender 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 Cont colistin, meropenem and tigecycline per ID. (4) Respiratory failure Assessment & Plan: Due to pneumonia. Cont mech vent-see pulmonary note. (5) Tracheostomy care (6) HTN (hypertension) Assessment & Plan: Current hypotensive. (7) Seizure disorder (8) Dysphagia Assessment & Plan: G-tube feeds per GI (9) Pneumonia Assessment & Plan: A. Baumanii. Continue meropenem, tigecycline and colistin per ID (10) Septic shock (11) Anemia Assessment & Plan: Worsening; S/P transfusion 2 unit PRBC 07/09/17 (12) Hypernatremia Assessment & Plan: Change IV fluid to 1/2 NS Status: not improved Assessment/Plan See social work note concerning bioethics eval. TOMI MOREAU Jul 18, 2017 16:54
[2017-07-18 20:00] VITALS: BP 135/64
[2017-07-18] MEDS: Dyna-Hex 2% Top Sol 2oz TOPIC SCH (20:11)
[2017-07-19] VITALS: BP 111/58
[2017-07-19 04:00] VITALS: BP 100/54
[2017-07-19 05:02] LABS: BASOPHILS % (AUTO) 0.7 % (0.0-2.0); LYMPHOCYTES % (AUTO) 32.6 % (20.0-45.0); MEAN CORPUSCULAR HGB CONC 32.8 G/DL (32.0-36.0); MEAN CORPUSCULAR VOLUME 95 FL (80-99); MONOCYTES % (AUTO) 7.7 % (1.0-10.0); PLATELET COUNT 410 K/UL (150-450); RED BLOOD COUNT 2.93 M/UL (4.20-5.40); RED CELL DISTRIBUTION WIDTH 13.7 % (11.6-14.8)
[2017-07-19 05:31] LABS: ALANINE AMINOTRANSFERASE 22 U/L (12-78); ALBUMIN/GLOBULIN RATIO 0.3 (1.0-2.7); ANION GAP 5 mmol/L (5-15); ASPARTATE AMINO TRANSFERASE 22 U/L (15-37); CALCIUM 8.9 MG/DL (8.5-10.1); CARBON DIOXIDE 33 MMOL/L (21-32); CHLORIDE 106 MMOL/L (98-107); CREATININE 1.1 MG/DL (0.55-1.30); MAGNESIUM 1.7 MG/DL (1.8-2.4); PHOSPHORUS 3.7 MG/DL (2.5-4.9); POTASSIUM 3.7 MMOL/L (3.5-5.1); SODIUM 144 MMOL/L (136-145); TOTAL PROTEIN 7.7 G/DL (6.4-8.2)
[2017-07-19 08:00] VITALS: BP 118/56
[2017-07-19] MEDS: Amiodarone 200mg tab GT SCH (08:26)
[2017-07-19] MEDS: Pantoprazole Inj IVP SCH (08:27)
[2017-07-19] MEDS: D5W IVPB SCH ×2 (08:27→21:42)
[2017-07-19] MEDS: TIGECYCLINE IVPB SCH ×2 (08:27→21:42)
[2017-07-19] MEDS: Heparin 5000 units/ml inj SUBQ SCH ×2 (08:28→21:43)
[2017-07-19] MEDS: Colistin 150mg vial IVP SCH ×2 (09:32→22:04)
--- NOTE | 2017-07-19 10:41 | Infectious Diseases Prog Note ---
Assessment/Plan Assessment/Plan Septic shock, SP PNA Scx: MDR- ACB (S. Colistin, Tygecicline, Minocycline, Polymixin B); improving -CXR 07/17: Improved left pleural effusion, slightly improved left-sided pulmonaryparenchymal disease, over 5 days. -CXR: Interstitial edema, vascular prominence, borderline cardiomegaly and hazy basilar opacities probably pleural effusions demonstrated. 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, VRE colonized No ABX allergies Full Code Plan: -continue Meropenem d# / , Colistin INH/ IV d# - , Tygacil d # /-7 -requested ceftazidime-avibactam on 07/17 ( 07/13 SP IV Vancomycin # 7 ) ( 07/08 SP Amikacin d# 2 ) -Monitor CBC/BMP, temperatures -Monitor CXR -trach/peg care Subjective Allergies: Coded Allergies: ASPIRIN (Verified Allergy, Unknown, 07/07/17) Subjective afebrile in >72hrs no leukocytosis Objective Vital Signs Last 24 Hour Vital Signs Date Time Temp Pulse Resp B/P (MAP) Pulse Ox O2 Delivery O2 Flow Rate FiO2 07/19/17 09:30 68 16 30 07/19/17 08:00 98.1 68 16 118/56 98 Mechanical Ventilator 30 07/19/17 08:00 76 07/19/17 08:00 30 07/19/17 07:49 66 16 30 07/19/17 05:09 75 16 35 07/19/17 04:00 98.9 76 16 100/54 97 Mechanical Ventilator 30 07/19/17 04:00 73 07/19/17 04:00 30 07/19/17 03:30 81 21 35 07/19/17 01:11 80 23 35 07/19/17 00:00 74 07/19/17 00:00 99.0 76 16 111/58 98 Mechanical Ventilator 30 07/19/17 00:00 30 07/18/17 22:35 73 16 35 07/18/17 22:00 73 16 99 Mechanical Ventilator 30 07/18/17 22:00 80 16 100 Mechanical Ventilator 30 07/18/17 20:52 76 20 35 07/18/17 20:00 30 07/18/17 20:00 74 07/18/17 20:00 98.9 87 16 135/64 97 Mechanical Ventilator 30 07/18/17 19:30 80 18 35 07/18/17 17:23 83 18 30 07/18/17 16:00 98.4 83 16 140/77 99 Mechanical Ventilator 30 07/18/17 16:00 30 07/18/17 16:00 78 07/18/17 15:30 79 17 30 07/18/17 13:06 77 16 30 07/18/17 12:00 35 07/18/17 12:00 72 07/18/17 12:00 98.1 74 16 137/65 100 Mechanical Ventilator 30 07/18/17 11:48 72 16 30 07/18/17 11:48 79 16 100 Mechanical Ventilator 30 07/18/17 11:39 77 16 100 Mechanical Ventilator 30 Height (Feet): 5 Height (Inches): 4.00 Weight (Pounds): 155 Objective HEENT: anicteric Respiratory/Chest: no respiratory distress Cardiovascular: regular rhythm Abdomen: no mass Laboratory Tests Test 07/19/17 03:30 White Blood Count 10.0 K/UL (4.8-10.8) Red Blood Count 2.93 M/UL (4.20-5.40) L Hemoglobin 9.1 G/DL (12.0-16.0) L Hematocrit 27.7 % (37.0-47.0) L Mean Corpuscular Volume 95 FL (80-99) Mean Corpuscular Hemoglobin 31.0 PG (27.0-31.0) Mean Corpuscular Hemoglobin Concent 32.8 G/DL (32.0-36.0) Red Cell Distribution Width 13.7 % (11.6-14.8) Platelet Count 410 K/UL (150-450) Mean Platelet Volume 7.0 FL (6.5-10.1) Neutrophils (%) (Auto) 54.0 % (45.0-75.0) Lymphocytes (%) (Auto) 32.6 % (20.0-45.0) Monocytes (%) (Auto) 7.7 % (1.0-10.0) Eosinophils (%) (Auto) 5.0 % (0.0-3.0) H Basophils (%) (Auto) 0.7 % (0.0-2.0) Sodium Level 144 MMOL/L (136-145) Potassium Level 3.7 MMOL/L (3.5-5.1) Chloride Level 106 MMOL/L (98-107) Carbon Dioxide Level 33 MMOL/L (21-32) H Anion Gap 5 mmol/L (5-15) Blood Urea Nitrogen 24 mg/dL (7-18) H Creatinine 1.1 MG/DL (0.55-1.30) Estimat Glomerular Filtration Rate mL/min (>60) Glucose Level 95 MG/DL (74-106) Calcium Level 8.9 MG/DL (8.5-10.1) Phosphorus Level 3.7 MG/DL (2.5-4.9) Magnesium Level 1.7 MG/DL (1.8-2.4) L Total Bilirubin 0.3 MG/DL (0.2-1.0) Aspartate Amino Transf (AST/SGOT) 22 U/L (15-37) Alanine Aminotransferase (ALT/SGPT) 22 U/L (12-78) Alkaline Phosphatase 84 U/L (46-116) Total Protein 7.7 G/DL (6.4-8.2) Albumin 1.7 G/DL (3.4-5.0) L Globulin 6.0 g/dL Albumin/Globulin Ratio 0.3 (1.0-2.7) L Current Medications Medications (Trade) Dose Ordered Sig/Torsten Route PRN Reason Start Time Stop Time Status Last Admin Dose Admin Acetaminophen (Tylenol) 650 mg Q4H PRN ORAL fever 07/12/17 15:00 08/06/17 14:59 07/15/17 17:07 Albuterol/ Ipratropium (Albuterol/ Ipratropium) 3 ml Q4H PRN HHN sob 07/15/17 13:00 07/20/17 12:59 Amiodarone HCl (Cordarone) 200 mg DAILY GT 07/18/17 09:00 08/17/17 08:59 07/19/17 08:26 Chlorhexidine Gluconate (Mariah-Hex 2%) 1 applic DAILY@1999 TOPIC 07/12/17 20:00 08/07/17 19:59 07/18/17 20:11 Colistimethate Sodium (Colistin *inhalation use only*) 75 mg Q12HR@10,22 INH 07/12/17 22:00 07/22/17 21:59 07/18/17 22:20 Colistimethate Sodium (Colistin) 75 mg EVERY 12 HOURS IVP 07/13/17 21:00 07/22/17 20:59 07/19/17 09:32 Diltiazem HCl (Cardizem) 15 mg Q1H PRN IVP HR > 120 BPM 07/12/17 14:30 08/10/17 11:29 Heparin Sodium (Porcine) (Heparin 5000 units/ml) 5,000 units EVERY 12 HOURS SUBQ 07/12/17 21:00 08/06/17 20:59 07/19/17 08:28 Lorazepam (Ativan 2mg/ml 1ml) 2 mg Q4H PRN IV For Anxiety 07/15/17 15:00 07/22/17 14:59 07/18/17 10:28 Meropenem 2 gm/ Sodium Chloride 110 ml @ 220 mls/hr Q12HR@1100,2300 IVPB 07/12/17 23:00 07/21/17 23:59 07/18/17 23:14 Ondansetron HCl (Zofran) 4 mg Q6H PRN IVP Nausea & Vomiting 07/12/17 15:30 08/06/17 15:29 Pantoprazole (Protonix) 40 mg DAILY IVP 07/13/17 09:00 08/07/17 08:59 07/19/17 08:27 Polyethylene Glycol (Miralax) 17 gm DAILYPRN PRN GT Constipation 07/16/17 13:30 08/06/17 15:29 Tigecycline 50 mg/ Dextrose 55 ml @ 110 mls/hr EVERY 12 HOURS IVPB 07/15/17 21:00 07/22/17 20:59 07/19/17 08:27 Yane Umana M.D. Jul 19, 2017 10:41
[2017-07-19] MEDS: Colistin for inhalation INH SCH ×2 (11:03→21:30)
--- NOTE | 2017-07-19 11:05 | Internal Med Progress Note ---
Subjective Date of Service: Jul 19, 2017 Physician Name Tomi Moreau Attending Physician Ho Mcghee MD Current Medications Medications (Trade) Dose Ordered Sig/Torsten Route PRN Reason Start Time Stop Time Status Last Admin Dose Admin Acetaminophen (Tylenol) 650 mg Q4H PRN ORAL fever 07/12/17 15:00 08/06/17 14:59 07/15/17 17:07 Albuterol/ Ipratropium (Albuterol/ Ipratropium) 3 ml Q4H PRN HHN sob 07/15/17 13:00 07/20/17 12:59 Amiodarone HCl (Cordarone) 200 mg DAILY GT 07/18/17 09:00 08/17/17 08:59 07/19/17 08:26 Chlorhexidine Gluconate (Mariah-Hex 2%) 1 applic DAILY@1999 TOPIC 07/12/17 20:00 08/07/17 19:59 07/18/17 20:11 Colistimethate Sodium (Colistin *inhalation use only*) 75 mg Q12HR@ INH 07/12/17 22:00 07/22/17 21:59 07/18/17 22:20 Colistimethate Sodium (Colistin) 75 mg EVERY 12 HOURS IVP 07/13/17 21:00 07/22/17 20:59 07/19/17 09:32 Diltiazem HCl (Cardizem) 15 mg Q1H PRN IVP HR > 120 BPM 07/12/17 14:30 08/10/17 11:29 Heparin Sodium (Porcine) (Heparin 5000 units/ml) 5,000 units EVERY 12 HOURS SUBQ 07/12/17 21:00 08/06/17 20:59 07/19/17 08:28 Lorazepam (Ativan 2mg/ml 1ml) 2 mg Q4H PRN IV For Anxiety 07/15/17 15:00 07/22/17 14:59 07/18/17 10:28 Meropenem 2 gm/ Sodium Chloride 110 ml @ 220 mls/hr Q12HR@1100,2300 IVPB 07/12/17 23:00 07/21/17 23:59 07/18/17 23:14 Ondansetron HCl (Zofran) 4 mg Q6H PRN IVP Nausea & Vomiting 07/12/17 15:30 08/06/17 15:29 Pantoprazole (Protonix) 40 mg DAILY IVP 07/13/17 09:00 08/07/17 08:59 07/19/17 08:27 Polyethylene Glycol (Miralax) 17 gm DAILYPRN PRN GT Constipation 07/16/17 13:30 08/06/17 15:29 Tigecycline 50 mg/ Dextrose 55 ml @ 110 mls/hr EVERY 12 HOURS IVPB 07/15/17 21:00 07/22/17 20:59 07/19/17 08:27 Allergies: Coded Allergies: ASPIRIN (Verified Allergy, Unknown, 07/07/17) ROS Limited/Unobtainable: Yes Subjective 82 YO F admitted with hypotension and pneumonia. MARTHA. Intubated and sedated. Cover for Int Pernell-dr Mcghee. Objective Last Vital Signs Date Time Temp Pulse Resp B/P (MAP) Pulse Ox O2 Delivery O2 Flow Rate FiO2 07/19/17 09:30 68 16 30 07/19/17 08:00 98.1 118/56 98 Mechanical Ventilator Laboratory Tests Test 07/19/17 03:30 White Blood Count 10.0 K/UL (4.8-10.8) Red Blood Count 2.93 M/UL (4.20-5.40) L Hemoglobin 9.1 G/DL (12.0-16.0) L Hematocrit 27.7 % (37.0-47.0) L Mean Corpuscular Volume 95 FL (80-99) Mean Corpuscular Hemoglobin 31.0 PG (27.0-31.0) Mean Corpuscular Hemoglobin Concent 32.8 G/DL (32.0-36.0) Red Cell Distribution Width 13.7 % (11.6-14.8) Platelet Count 410 K/UL (150-450) Mean Platelet Volume 7.0 FL (6.5-10.1) Neutrophils (%) (Auto) 54.0 % (45.0-75.0) Lymphocytes (%) (Auto) 32.6 % (20.0-45.0) Monocytes (%) (Auto) 7.7 % (1.0-10.0) Eosinophils (%) (Auto) 5.0 % (0.0-3.0) H Basophils (%) (Auto) 0.7 % (0.0-2.0) Sodium Level 144 MMOL/L (136-145) Potassium Level 3.7 MMOL/L (3.5-5.1) Chloride Level 106 MMOL/L (98-107) Carbon Dioxide Level 33 MMOL/L (21-32) H Anion Gap 5 mmol/L (5-15) Blood Urea Nitrogen 24 mg/dL (7-18) H Creatinine 1.1 MG/DL (0.55-1.30) Estimat Glomerular Filtration Rate mL/min (>60) Glucose Level 95 MG/DL (74-106) Calcium Level 8.9 MG/DL (8.5-10.1) Phosphorus Level 3.7 MG/DL (2.5-4.9) Magnesium Level 1.7 MG/DL (1.8-2.4) L Total Bilirubin 0.3 MG/DL (0.2-1.0) Aspartate Amino Transf (AST/SGOT) 22 U/L (15-37) Alanine Aminotransferase (ALT/SGPT) 22 U/L (12-78) Alkaline Phosphatase 84 U/L (46-116) Total Protein 7.7 G/DL (6.4-8.2) Albumin 1.7 G/DL (3.4-5.0) L Globulin 6.0 g/dL Albumin/Globulin Ratio 0.3 (1.0-2.7) L Objective General Appearance: WD/WN, moderate distress, lethargic EENT: PERRL/EOMI, normal ENT inspection Neck: trach; non-tender, normal alignment, supple, other - tracheostomy Cardiovascular: normal peripheral pulses, normal rate, regular rhythm, no gallop/murmur, no JVD Respiratory/Chest: Mechanical vent; chest wall non-tender, crackles/rales, rhonchi - bilaterally, expiratory wheezing Abdomen: normal bowel sounds, non tender, soft, no organomegaly, no mass Extremities: non-tender 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 Cont colistin, meropenem and tigecycline per ID. (4) Respiratory failure Assessment & Plan: Due to pneumonia. Cont mech vent-see pulmonary note. (5) Tracheostomy care (6) HTN (hypertension) Assessment & Plan: Current hypotensive. (7) Seizure disorder (8) Dysphagia Assessment & Plan: G-tube feeds per GI (9) Pneumonia Assessment & Plan: A. Baumanii. Continue meropenem, tigecycline and colistin per ID (10) Septic shock (11) Anemia Assessment & Plan: Worsening; S/P transfusion 2 unit PRBC 07/09/17 (12) Hypernatremia Assessment & Plan: Change IV fluid to 1/2 NS Status: progressing Assessment/Plan See social work note; RE: Public guardian decision regarding comfort measures. TOMI MOREAU Jul 19, 2017 11:05
[2017-07-19] MEDS: Meropenem 2 GM in NS 110 ML IVPB SCH ×2 (11:19→23:13)
[2017-07-19 12:00] VITALS: BP 136/68
[2017-07-19 16:00] VITALS: BP 123/55
--- NOTE | 2017-07-19 18:49 | Cardiology Progress Note ---
Assessment/Plan Assessment/Plan 1. Tachycardia consistent with atrial fibrillation now in sinus 2. Pulmonary infiltrates. 3. Chronic respiratory failure, on a ventilator. 4. Anemia. 5. Hypernatremia. 6. Gastrostomy tube dependence. 7. Ventilator dependence. trop neg tele reviewed sinus no afib any more as of 07/19/2017 echo normla lv function , p htn to reviewed venous duplex showed recanalized thrombus right side if has recurrent afib may need to consider if an anticoag candidate but with all that is going on with her would start amiod to see if we can prevent afib recurrence and need for anticoagulation change amiod to 200 mg dialy Subjective ROS Limited/Unobtainable: Yes Objective Last 24 Hour Vital Signs Date Time Temp Pulse Resp B/P (MAP) Pulse Ox O2 Delivery O2 Flow Rate FiO2 07/19/17 17:12 77 16 30 07/19/17 16:00 75 07/19/17 16:00 30 07/19/17 16:00 97.7 75 16 123/55 97 Mechanical Ventilator 30 07/19/17 15:39 75 19 30 07/19/17 12:50 70 18 30 07/19/17 12:00 30 07/19/17 12:00 69 07/19/17 12:00 98.1 70 16 136/68 97 Mechanical Ventilator 07/19/17 11:14 74 16 100 Mechanical Ventilator 30 07/19/17 11:04 84 18 99 Mechanical Ventilator 30 07/19/17 11:03 74 18 30 07/19/17 09:30 68 16 30 07/19/17 08:00 98.1 68 16 118/56 98 Mechanical Ventilator 30 07/19/17 08:00 76 07/19/17 08:00 30 07/19/17 07:49 66 16 30 07/19/17 05:09 75 16 35 07/19/17 04:00 98.9 76 16 100/54 97 Mechanical Ventilator 30 07/19/17 04:00 73 07/19/17 04:00 30 07/19/17 03:30 81 21 35 07/19/17 01:11 80 23 35 07/19/17 00:00 74 07/19/17 00:00 99.0 76 16 111/58 98 Mechanical Ventilator 30 07/19/17 00:00 30 07/18/17 22:35 73 16 35 07/18/17 22:00 73 16 99 Mechanical Ventilator 30 07/18/17 22:00 80 16 100 Mechanical Ventilator 30 07/18/17 20:52 76 20 35 07/18/17 20:00 30 07/18/17 20:00 74 07/18/17 20:00 98.9 87 16 135/64 97 Mechanical Ventilator 30 07/18/17 19:30 80 18 35 General Appearance: no apparent distress, on vent, patient on isolation Intake and Output 07/19/17 07/20/17 19:00 07:00 Intake Total 755 ml Balance 755 ml IV Total 165 ml Tube Feeding 550 ml Other 40 ml # Voids 3 # Bowel Movements 3 Laboratory Tests Test 07/19/17 03:30 White Blood Count 10.0 K/UL (4.8-10.8) Red Blood Count 2.93 M/UL (4.20-5.40) L Hemoglobin 9.1 G/DL (12.0-16.0) L Hematocrit 27.7 % (37.0-47.0) L Mean Corpuscular Volume 95 FL (80-99) Mean Corpuscular Hemoglobin 31.0 PG (27.0-31.0) Mean Corpuscular Hemoglobin Concent 32.8 G/DL (32.0-36.0) Red Cell Distribution Width 13.7 % (11.6-14.8) Platelet Count 410 K/UL (150-450) Mean Platelet Volume 7.0 FL (6.5-10.1) Neutrophils (%) (Auto) 54.0 % (45.0-75.0) Lymphocytes (%) (Auto) 32.6 % (20.0-45.0) Monocytes (%) (Auto) 7.7 % (1.0-10.0) Eosinophils (%) (Auto) 5.0 % (0.0-3.0) H Basophils (%) (Auto) 0.7 % (0.0-2.0) Sodium Level 144 MMOL/L (136-145) Potassium Level 3.7 MMOL/L (3.5-5.1) Chloride Level 106 MMOL/L (98-107) Carbon Dioxide Level 33 MMOL/L (21-32) H Anion Gap 5 mmol/L (5-15) Blood Urea Nitrogen 24 mg/dL (7-18) H Creatinine 1.1 MG/DL (0.55-1.30) Estimat Glomerular Filtration Rate mL/min (>60) Glucose Level 95 MG/DL (74-106) Calcium Level 8.9 MG/DL (8.5-10.1) Phosphorus Level 3.7 MG/DL (2.5-4.9) Magnesium Level 1.7 MG/DL (1.8-2.4) L Total Bilirubin 0.3 MG/DL (0.2-1.0) Aspartate Amino Transf (AST/SGOT) 22 U/L (15-37) Alanine Aminotransferase (ALT/SGPT) 22 U/L (12-78) Alkaline Phosphatase 84 U/L (46-116) Total Protein 7.7 G/DL (6.4-8.2) Albumin 1.7 G/DL (3.4-5.0) L Globulin 6.0 g/dL Albumin/Globulin Ratio 0.3 (1.0-2.7) L ALAINA SINGLETON Jul 19, 2017 18:49
[2017-07-19 20:00] VITALS: BP 130/70
[2017-07-19] MEDS: Dyna-Hex 2% Top Sol 2oz TOPIC SCH (20:01)
[2017-07-20] VITALS: BP 153/66
[2017-07-20 04:00] VITALS: BP 122/63
[2017-07-20 04:31] LABS: BASOPHILS % (AUTO) 0.5 % (0.0-2.0); EOSINOPHILS % (AUTO) 5.4 % (0.0-3.0); LYMPHOCYTES % (AUTO) 25.7 % (20.0-45.0); MEAN CORPUSCULAR HEMOGLOBIN 31.4 PG (27.0-31.0); MEAN CORPUSCULAR HGB CONC 33.3 G/DL (32.0-36.0); MEAN CORPUSCULAR VOLUME 94 FL (80-99); MEAN PLATELET VOLUME 6.5 FL (6.5-10.1); MONOCYTES % (AUTO) 6.8 % (1.0-10.0); NEUTROPHILS % (AUTO) 61.5 % (45.0-75.0); PLATELET COUNT 419 K/UL (150-450); RED BLOOD COUNT 3.01 M/UL (4.20-5.40); RED CELL DISTRIBUTION WIDTH 13.6 % (11.6-14.8); WHITE BLOOD COUNT 10.2 K/UL (4.8-10.8)
[2017-07-20 05:14] LABS: ALANINE AMINOTRANSFERASE 29 U/L (12-78); ALBUMIN/GLOBULIN RATIO 0.3 (1.0-2.7); ANION GAP 4 mmol/L (5-15); ASPARTATE AMINO TRANSFERASE 31 U/L (15-37); CARBON DIOXIDE 32 MMOL/L (21-32); CHLORIDE 109 MMOL/L (98-107); CREATININE 0.9 MG/DL (0.55-1.30); MAGNESIUM 1.5 MG/DL (1.8-2.4); PHOSPHORUS 3.5 MG/DL (2.5-4.9); POTASSIUM 3.8 MMOL/L (3.5-5.1); SODIUM 145 MMOL/L (136-145); TOTAL PROTEIN 7.9 G/DL (6.4-8.2)
[2017-07-20 08:00] VITALS: BP 129/53
[2017-07-20] MEDS: Colistin for inhalation INH SCH ×2 (08:43→21:51)
[2017-07-20] MEDS: Pantoprazole Inj IVP SCH (09:00)
[2017-07-20] MEDS: TIGECYCLINE IVPB SCH ×2 (09:35→20:40)
[2017-07-20] MEDS: D5W IVPB SCH ×2 (09:35→20:40)
[2017-07-20] MEDS: Amiodarone 200mg tab GT SCH (09:37)
[2017-07-20] MEDS: Heparin 5000 units/ml inj SUBQ SCH ×2 (09:39→20:43)
[2017-07-20] MEDS: Colistin 150mg vial IVP SCH ×2 (09:51→20:36)
--- NOTE | 2017-07-20 10:21 | Infectious Diseases Prog Note ---
Assessment/Plan Assessment/Plan Septic shock, SP PNA Scx: MDR- ACB (S. Colistin, Tygecicline, Minocycline, Polymixin B); improving -CXR 07/17: Improved left pleural effusion, slightly improved left-sided pulmonaryparenchymal disease, over 5 days. -CXR: Interstitial edema, vascular prominence, borderline cardiomegaly and hazy basilar opacities probably pleural effusions demonstrated. 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, VRE colonized No ABX allergies Full Code Plan: -continue Meropenem d# 13 / , Colistin INH/ IV d# , Tygacil d # 6/7 ( 07/13 SP IV Vancomycin # 7 ) ( 07/08 SP Amikacin d# 2 ) -Monitor CBC/BMP, temperatures -Monitor CXR -trach/peg care Subjective Allergies: Coded Allergies: ASPIRIN (Verified Allergy, Unknown, 07/07/17) Subjective afebrile no leukocytosis Objective Vital Signs Last 24 Hour Vital Signs Date Time Temp Pulse Resp B/P (MAP) Pulse Ox O2 Delivery O2 Flow Rate FiO2 07/20/17 08:44 79 16 100 Mechanical Ventilator 30 07/20/17 08:44 75 19 30 07/20/17 08:35 73 18 100 Mechanical Ventilator 30 07/20/17 07:55 73 07/20/17 06:41 72 16 30 07/20/17 05:06 79 16 30 07/20/17 04:00 30 07/20/17 04:00 98.1 70 21 122/63 98 Mechanical Ventilator 70 07/20/17 04:00 65 07/20/17 03:29 68 16 30 07/20/17 01:27 73 16 30 07/20/17 00:00 30 07/20/17 00:00 70 07/20/17 00:00 98.2 66 17 153/66 Mechanical Ventilator 66 07/19/17 23:15 72 16 30 07/19/17 21:44 77 16 100 Mechanical Ventilator 30 07/19/17 21:29 78 17 100 Mechanical Ventilator 30 07/19/17 21:28 78 17 30 07/19/17 20:00 30 07/19/17 20:00 98.2 77 16 130/70 100 Mechanical Ventilator 77 07/19/17 20:00 75 07/19/17 19:06 82 17 30 07/19/17 17:12 77 16 30 07/19/17 16:00 75 07/19/17 16:00 30 07/19/17 16:00 97.7 75 16 123/55 97 Mechanical Ventilator 30 07/19/17 15:39 75 19 30 07/19/17 12:50 70 18 30 07/19/17 12:00 30 07/19/17 12:00 69 07/19/17 12:00 98.1 70 16 136/68 97 Mechanical Ventilator 30 07/19/17 11:14 74 16 100 Mechanical Ventilator 30 07/19/17 11:04 84 18 99 Mechanical Ventilator 30 07/19/17 11:03 74 18 30 Height (Feet): 5 Height (Inches): 4.00 Weight (Pounds): 155 Objective HEENT: anicteric Respiratory/Chest: no respiratory distress Cardiovascular: regular rhythm Abdomen: no mass Laboratory Tests Test 07/20/17 03:00 White Blood Count 10.2 K/UL (4.8-10.8) Red Blood Count 3.01 M/UL (4.20-5.40) L Hemoglobin 9.5 G/DL (12.0-16.0) L Hematocrit 28.4 % (37.0-47.0) L Mean Corpuscular Volume 94 FL (80-99) Mean Corpuscular Hemoglobin 31.4 PG (27.0-31.0) H Mean Corpuscular Hemoglobin Concent 33.3 G/DL (32.0-36.0) Red Cell Distribution Width 13.6 % (11.6-14.8) Platelet Count 419 K/UL (150-450) Mean Platelet Volume 6.5 FL (6.5-10.1) Neutrophils (%) (Auto) 61.5 % (45.0-75.0) Lymphocytes (%) (Auto) 25.7 % (20.0-45.0) Monocytes (%) (Auto) 6.8 % (1.0-10.0) Eosinophils (%) (Auto) 5.4 % (0.0-3.0) H Basophils (%) (Auto) 0.5 % (0.0-2.0) Sodium Level 145 MMOL/L (136-145) Potassium Level 3.8 MMOL/L (3.5-5.1) Chloride Level 109 MMOL/L (98-107) H Carbon Dioxide Level 32 MMOL/L (21-32) Anion Gap 4 mmol/L (5-15) L Blood Urea Nitrogen 21 mg/dL (7-18) H Creatinine 0.9 MG/DL (0.55-1.30) Estimat Glomerular Filtration Rate mL/min (>60) Glucose Level 76 MG/DL (74-106) Calcium Level 9.0 MG/DL (8.5-10.1) Phosphorus Level 3.5 MG/DL (2.5-4.9) Magnesium Level 1.5 MG/DL (1.8-2.4) L Total Bilirubin 0.3 MG/DL (0.2-1.0) Aspartate Amino Transf (AST/SGOT) 31 U/L (15-37) Alanine Aminotransferase (ALT/SGPT) 29 U/L (12-78) Alkaline Phosphatase 90 U/L (46-116) Total Protein 7.9 G/DL (6.4-8.2) Albumin 1.7 G/DL (3.4-5.0) L Globulin 6.2 g/dL Albumin/Globulin Ratio 0.3 (1.0-2.7) L Current Medications Medications (Trade) Dose Ordered Sig/Torsten Route PRN Reason Start Time Stop Time Status Last Admin Dose Admin Acetaminophen (Tylenol) 650 mg Q4H PRN ORAL fever 07/12/17 15:00 08/06/17 14:59 07/15/17 17:07 Albuterol/ Ipratropium (Albuterol/ Ipratropium) 3 ml Q4H PRN HHN sob 07/15/17 13:00 07/20/17 12:59 Amiodarone HCl (Cordarone) 200 mg DAILY GT 07/18/17 09:00 08/17/17 08:59 07/20/17 09:37 Chlorhexidine Gluconate (Mariah-Hex 2%) 1 applic DAILY@1999 TOPIC 07/12/17 20:00 08/07/17 19:59 07/19/17 20:01 Colistimethate Sodium (Colistin *inhalation use only*) 75 mg Q12HR@10,22 INH 07/12/17 22:00 07/22/17 21:59 07/20/17 08:43 Colistimethate Sodium (Colistin) 75 mg EVERY 12 HOURS IVP 07/13/17 21:00 07/22/17 20:59 07/20/17 09:51 Diltiazem HCl (Cardizem) 15 mg Q1H PRN IVP HR > 120 BPM 07/12/17 14:30 08/10/17 11:29 Heparin Sodium (Porcine) (Heparin 5000 units/ml) 5,000 units EVERY 12 HOURS SUBQ 07/12/17 21:00 08/06/17 20:59 07/20/17 09:39 Lorazepam (Ativan 2mg/ml 1ml) 2 mg Q4H PRN IV For Anxiety 07/15/17 15:00 07/22/17 14:59 07/18/17 10:28 Meropenem 2 gm/ Sodium Chloride 110 ml @ 220 mls/hr Q12HR@1100,2300 IVPB 07/12/17 23:00 07/21/17 23:59 07/19/17 23:13 Ondansetron HCl (Zofran) 4 mg Q6H PRN IVP Nausea & Vomiting 07/12/17 15:30 08/06/17 15:29 Pantoprazole (Protonix) 40 mg DAILY IVP 07/13/17 09:00 08/07/17 08:59 07/20/17 09:00 Polyethylene Glycol (Miralax) 17 gm DAILYPRN PRN GT Constipation 07/16/17 13:30 08/06/17 15:29 Tigecycline 50 mg/ Dextrose 55 ml @ 110 mls/hr EVERY 12 HOURS IVPB 07/15/17 21:00 07/22/17 20:59 07/20/17 09:35 Yane Umana M.D. Jul 20, 2017 10:21
--- NOTE | 2017-07-20 10:22 | Pulmonology Progress Note ---
Assessment/Plan Problems: (1) Acute and chronic respiratory failure (2) Pneumonia (3) Anemia (4) Fever (5) Seizure disorder (6) HTN (hypertension) (7) Tracheostomy care Respiratory: monitor respiratory rate, adjust FIO2, CXR Cardiac: continue to monitor HR/BP Renal: F/U I&O, keep IV fluid Infectious Disease: continue antibiotics Gastrointestinal: continue feedings/current rate Endocrine: monitor blood sugar, check TSH Hematologic: monitor H/H Neurologic: PRN Ativan, PRN Morphine Affect: PRN ativan Notes Reviewed: cardio Subjective ROS Limited/Unobtainable: No Interval Events: late note for 07/19/2017 Allergies: Coded Allergies: ASPIRIN (Verified Allergy, Unknown, 07/07/17) All Systems: reviewed and negative except above Objective Last 24 Hour Vital Signs Date Time Temp Pulse Resp B/P (MAP) Pulse Ox O2 Delivery O2 Flow Rate FiO2 07/20/17 08:44 79 16 100 Mechanical Ventilator 30 07/20/17 08:44 75 19 30 07/20/17 08:35 73 18 100 Mechanical Ventilator 30 07/20/17 07:55 73 07/20/17 06:41 72 16 30 07/20/17 05:06 79 16 30 07/20/17 04:00 30 07/20/17 04:00 98.1 70 21 122/63 98 Mechanical Ventilator 70 07/20/17 04:00 65 07/20/17 03:29 68 16 30 07/20/17 01:27 73 16 30 07/20/17 00:00 30 07/20/17 00:00 70 07/20/17 00:00 98.2 66 17 153/66 Mechanical Ventilator 66 07/19/17 23:15 72 16 30 07/19/17 21:44 77 16 100 Mechanical Ventilator 30 07/19/17 21:29 78 17 100 Mechanical Ventilator 30 07/19/17 21:28 78 17 30 07/19/17 20:00 30 07/19/17 20:00 98.2 77 16 130/70 100 Mechanical Ventilator 77 07/19/17 20:00 75 07/19/17 19:06 82 17 30 07/19/17 17:12 77 16 30 07/19/17 16:00 75 07/19/17 16:00 30 07/19/17 16:00 97.7 75 16 123/55 97 Mechanical Ventilator 30 07/19/17 15:39 75 19 30 07/19/17 12:50 70 18 30 07/19/17 12:00 30 07/19/17 12:00 69 07/19/17 12:00 98.1 70 16 136/68 97 Mechanical Ventilator 30 07/19/17 11:14 74 16 100 Mechanical Ventilator 30 07/19/17 11:04 84 18 99 Mechanical Ventilator 30 07/19/17 11:03 74 18 30 Intake and Output 07/20/17 07/21/17 19:00 07:00 Intake Total 100 ml Balance 100 ml IV Total 100 ml General Appearance: cachetic HEENT: normocephalic, atraumatic, status post trach Respiratory/Chest: chest wall non-tender, normal breath sounds Cardiovascular: normal peripheral pulses, normal rate Abdomen: normal bowel sounds, soft, non tender Genitourinary: normal external genitalia Extremities: no clubbing Skin: no lesions Laboratory Tests 07/20/17 03:00: White Blood Count 10.2, Red Blood Count 3.01L, Hemoglobin 9.5L, Hematocrit 28.4L , Mean Corpuscular Volume 94, Mean Corpuscular Hemoglobin 31.4H, Mean Corpuscular Hemoglobin Concent 33.3, Red Cell Distribution Width 13.6, Platelet Count 419, Mean Platelet Volume 6.5, Neutrophils (%) (Auto) 61.5, Lymphocytes (% ) (Auto) 25.7, Monocytes (%) (Auto) 6.8, Eosinophils (%) (Auto) 5.4H, Basophils (%) (Auto) 0.5, Sodium Level 145, Potassium Level 3.8, Chloride Level 109H, Carbon Dioxide Level 32, Anion Gap 4L, Blood Urea Nitrogen 21H, Creatinine 0.9, Estimat Glomerular Filtration Rate , Glucose Level 76, Calcium Level 9.0, Phosphorus Level 3.5, Magnesium Level 1.5L, Total Bilirubin 0.3, Aspartate Amino Transf (AST/SGOT) 31, Alanine Aminotransferase (ALT/SGPT) 29, Alkaline Phosphatase 90, Total Protein 7.9, Albumin 1.7L, Globulin 6.2, Albumin/Globulin Ratio 0.3L Current Medications Medications (Trade) Dose Ordered Sig/Torsten Route PRN Reason Start Time Stop Time Status Last Admin Dose Admin Acetaminophen (Tylenol) 650 mg Q4H PRN ORAL fever 11/15/17 15:00 08/06/17 14:59 07/15/17 17:07 Albuterol/ Ipratropium (Albuterol/ Ipratropium) 3 ml Q4H PRN HHN sob 07/15/17 13:00 07/20/17 12:59 Amiodarone HCl (Cordarone) 200 mg DAILY GT 07/18/17 09:00 08/17/17 08:59 07/20/17 09:37 Chlorhexidine Gluconate (Mariah-Hex 2%) 1 applic DAILY@1999 TOPIC 07/12/17 20:00 08/07/17 19:59 07/19/17 20:01 Colistimethate Sodium (Colistin *inhalation use only*) 75 mg Q12HR@10,22 INH 07/12/17 22:00 07/22/17 21:59 07/20/17 08:43 Colistimethate Sodium (Colistin) 75 mg EVERY 12 HOURS IVP 07/13/17 21:00 07/22/17 20:59 07/20/17 09:51 Diltiazem HCl (Cardizem) 15 mg Q1H PRN IVP HR > 120 BPM 07/12/17 14:30 08/10/17 11:29 Heparin Sodium (Porcine) (Heparin 5000 units/ml) 5,000 units EVERY 12 HOURS SUBQ 07/12/17 21:00 08/06/17 20:59 07/20/17 09:39 Lorazepam (Ativan 2mg/ml 1ml) 2 mg Q4H PRN IV For Anxiety 07/15/17 15:00 07/22/17 14:59 07/18/17 10:28 Meropenem 2 gm/ Sodium Chloride 110 ml @ 220 mls/hr Q12HR@1100,2300 IVPB 07/12/17 23:00 07/21/17 23:59 07/19/17 23:13 Ondansetron HCl (Zofran) 4 mg Q6H PRN IVP Nausea & Vomiting 07/12/17 15:30 08/06/17 15:29 Pantoprazole (Protonix) 40 mg DAILY IVP 07/13/17 09:00 08/07/17 08:59 07/20/17 09:00 Polyethylene Glycol (Miralax) 17 gm DAILYPRN PRN GT Constipation 07/16/17 13:30 08/06/17 15:29 Tigecycline 50 mg/ Dextrose 55 ml @ 110 mls/hr EVERY 12 HOURS IVPB 07/15/17 21:00 07/22/17 20:59 07/20/17 09:35 COBY LEBLANC Jul 20, 2017 10:22
--- NOTE | 2017-07-20 10:23 | Pulmonology Progress Note ---
Assessment/Plan Problems: (1) Acute and chronic respiratory failure (2) Pneumonia (3) Anemia (4) Fever (5) Seizure disorder (6) HTN (hypertension) (7) Tracheostomy care Respiratory: monitor respiratory rate, adjust FIO2, CXR Cardiac: continue to monitor HR/BP Renal: F/U I&O, keep IV fluid, check electrolytes Infectious Disease: check cultures Gastrointestinal: continue feedings/current rate Endocrine: check HgA1C, continue sliding scale insulin Hematologic: transfuse if hgb<8.5 Neurologic: PRN Ativan, PRN Morphine, keep patient comfortable Affect: PRN ativan Notes Reviewed: tip out worker, 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, consultants, outpatient case manager Subjective ROS Limited/Unobtainable: No Constitutional: Reports: no symptoms HEENT: Repors: no symptoms Respiratory: Reports: no symptoms Allergies: Coded Allergies: ASPIRIN (Verified Allergy, Unknown, 07/07/17) Objective Last 24 Hour Vital Signs Date Time Temp Pulse Resp B/P (MAP) Pulse Ox O2 Delivery O2 Flow Rate FiO2 07/20/17 08:44 79 16 100 Mechanical Ventilator 30 07/20/17 08:44 75 19 30 07/20/17 08:35 73 18 100 Mechanical Ventilator 30 07/20/17 07:55 73 07/20/17 06:41 72 16 30 07/20/17 05:06 79 16 30 07/20/17 04:00 30 07/20/17 04:00 98.1 70 21 122/63 98 Mechanical Ventilator 70 07/20/17 04:00 65 07/20/17 03:29 68 16 30 07/20/17 01:27 73 16 30 07/20/17 00:00 30 07/20/17 00:00 70 07/20/17 00:00 98.2 66 17 153/66 Mechanical Ventilator 66 07/19/17 23:15 72 16 30 07/19/17 21:44 77 16 100 Mechanical Ventilator 30 07/19/17 21:29 78 17 100 Mechanical Ventilator 30 07/19/17 21:28 78 17 30 07/19/17 20:00 30 07/19/17 20:00 98.2 77 16 130/70 100 Mechanical Ventilator 77 07/19/17 20:00 75 07/19/17 19:06 82 17 30 07/19/17 17:12 77 16 30 07/19/17 16:00 75 11/22/17 16:00 30 07/19/17 16:00 97.7 75 16 123/55 97 Mechanical Ventilator 30 07/19/17 15:39 75 19 30 07/19/17 12:50 70 18 30 07/19/17 12:00 30 07/19/17 12:00 69 07/19/17 12:00 98.1 70 16 136/68 97 Mechanical Ventilator 30 07/19/17 11:14 74 16 100 Mechanical Ventilator 30 07/19/17 11:04 84 18 99 Mechanical Ventilator 30 07/19/17 11:03 74 18 30 Intake and Output 07/20/17 07/21/17 19:00 07:00 Intake Total 100 ml Balance 100 ml IV Total 100 ml General Appearance: WD/WN HEENT: normocephalic, atraumatic Respiratory/Chest: chest wall non-tender, lungs clear Breasts: no masses Cardiovascular: normal peripheral pulses Abdomen: soft, non tender Genitourinary: normal external genitalia Extremities: no cyanosis Neurologic/Psychiatric: computer numeric control setter II-XII grossly normal, no motor/sensory deficits Lymphatic: no neck adenopathy Laboratory Tests 07/20/17 03:00: White Blood Count 10.2, Red Blood Count 3.01L, Hemoglobin 9.5L, Hematocrit 28.4L , Mean Corpuscular Volume 94, Mean Corpuscular Hemoglobin 31.4H, Mean Corpuscular Hemoglobin Concent 33.3, Red Cell Distribution Width 13.6, Platelet Count 419, Mean Platelet Volume 6.5, Neutrophils (%) (Auto) 61.5, Lymphocytes (% ) (Auto) 25.7, Monocytes (%) (Auto) 6.8, Eosinophils (%) (Auto) 5.4H, Basophils (%) (Auto) 0.5, Sodium Level 145, Potassium Level 3.8, Chloride Level 109H, Carbon Dioxide Level 32, Anion Gap 4L, Blood Urea Nitrogen 21H, Creatinine 0.9, Estimat Glomerular Filtration Rate , Glucose Level 76, Calcium Level 9.0, Phosphorus Level 3.5, Magnesium Level 1.5L, Total Bilirubin 0.3, Aspartate Amino Transf (AST/SGOT) 31, Alanine Aminotransferase (ALT/SGPT) 29, Alkaline Phosphatase 90, Total Protein 7.9, Albumin 1.7L, Globulin 6.2, Albumin/Globulin Ratio 0.3L Current Medications Medications (Trade) Dose Ordered Sig/Torsten Route PRN Reason Start Time Stop Time Status Last Admin Dose Admin Acetaminophen (Tylenol) 650 mg Q4H PRN ORAL fever 07/12/17 15:00 08/06/17 14:59 07/15/17 17:07 Albuterol/ Ipratropium (Albuterol/ Ipratropium) 3 ml Q4H PRN HHN sob 07/15/17 13:00 07/20/17 12:59 Amiodarone HCl (Cordarone) 200 mg DAILY GT 07/18/17 09:00 08/17/17 08:59 07/20/17 09:37 Chlorhexidine Gluconate (Mariah-Hex 2%) 1 applic DAILY@1999 TOPIC 07/12/17 20:00 08/07/17 19:59 07/19/17 20:01 Colistimethate Sodium (Colistin *inhalation use only*) 75 mg Q12HR@ INH 07/12/17 22:00 07/22/17 21:59 07/20/17 08:43 Colistimethate Sodium (Colistin) 75 mg EVERY 12 HOURS IVP 07/13/17 21:00 07/22/17 20:59 07/20/17 09:51 Diltiazem HCl (Cardizem) 15 mg Q1H PRN IVP HR > 120 BPM 07/12/17 14:30 08/10/17 11:29 Heparin Sodium (Porcine) (Heparin 5000 units/ml) 5,000 units EVERY 12 HOURS SUBQ 07/12/17 21:00 08/06/17 20:59 07/20/17 09:39 Lorazepam (Ativan 2mg/ml 1ml) 2 mg Q4H PRN IV For Anxiety 07/15/17 15:00 07/22/17 14:59 07/18/17 10:28 Meropenem 2 gm/ Sodium Chloride 110 ml @ 220 mls/hr Q12HR@1100,2300 IVPB 07/12/17 23:00 07/21/17 23:59 07/19/17 23:13 Ondansetron HCl (Zofran) 4 mg Q6H PRN IVP Nausea & Vomiting 07/12/17 15:30 08/06/17 15:29 Pantoprazole (Protonix) 40 mg DAILY IVP 07/13/17 09:00 08/07/17 08:59 07/20/17 09:00 Polyethylene Glycol (Miralax) 17 gm DAILYPRN PRN GT Constipation 07/16/17 13:30 08/06/17 15:29 Tigecycline 50 mg/ Dextrose 55 ml @ 110 mls/hr EVERY 12 HOURS IVPB 07/15/17 21:00 07/22/17 20:59 07/20/17 09:35 COBY LEBLANC Jul 20, 2017 10:23
[2017-07-20] MEDS: Meropenem 2 GM in NS 110 ML IVPB SCH ×2 (11:23→23:08)
[2017-07-20 12:00] VITALS: BP 128/70
--- NOTE | 2017-07-20 13:00 | Internal Med Progress Note ---
Subjective Date of Service: Jul 20, 2017 Physician Name MoreauTomi Attending Physician Ho Mcghee MD Current Medications Medications (Trade) Dose Ordered Sig/Torsten Route PRN Reason Start Time Stop Time Status Last Admin Dose Admin Acetaminophen (Tylenol) 650 mg Q4H PRN ORAL fever 07/12/17 15:00 08/06/17 14:59 07/15/17 17:07 Albuterol/ Ipratropium (Albuterol/ Ipratropium) 3 ml Q4H PRN HHN sob 07/15/17 13:00 07/20/17 12:59 Amiodarone HCl (Cordarone) 200 mg DAILY GT 07/18/17 09:00 08/17/17 08:59 07/20/17 09:37 Chlorhexidine Gluconate (Mariah-Hex 2%) 1 applic DAILY@1999 TOPIC 07/12/17 20:00 08/07/17 19:59 07/19/17 20:01 Colistimethate Sodium (Colistin *inhalation use only*) 75 mg Q12HR@ INH 07/12/17 22:00 07/22/17 21:59 07/20/17 08:43 Colistimethate Sodium (Colistin) 75 mg EVERY 12 HOURS IVP 07/13/17 21:00 07/22/17 20:59 07/20/17 09:51 Diltiazem HCl (Cardizem) 15 mg Q1H PRN IVP HR > 120 BPM 07/12/17 14:30 08/10/17 11:29 Heparin Sodium (Porcine) (Heparin 5000 units/ml) 5,000 units EVERY 12 HOURS SUBQ 07/12/17 21:00 08/06/17 20:59 07/20/17 09:39 Lorazepam (Ativan 2mg/ml 1ml) 2 mg Q4H PRN IV For Anxiety 07/15/17 15:00 07/22/17 14:59 07/18/17 10:28 Meropenem 2 gm/ Sodium Chloride 110 ml @ 220 mls/hr Q12HR@1100,2300 IVPB 07/12/17 23:00 07/21/17 23:59 07/20/17 11:23 Ondansetron HCl (Zofran) 4 mg Q6H PRN IVP Nausea & Vomiting 07/12/17 15:30 08/06/17 15:29 Pantoprazole (Protonix) 40 mg DAILY IVP 07/13/17 09:00 08/07/17 08:59 07/20/17 09:00 Polyethylene Glycol (Miralax) 17 gm DAILYPRN PRN GT Constipation 07/16/17 13:30 08/06/17 15:29 Tigecycline 50 mg/ Dextrose 55 ml @ 110 mls/hr EVERY 12 HOURS IVPB 07/15/17 21:00 07/22/17 20:59 07/20/17 09:35 Allergies: Coded Allergies: ASPIRIN (Verified Allergy, Unknown, 07/07/17) ROS Limited/Unobtainable: Yes Subjective 82 YO F admitted with hypotension and pneumonia. MARTHA. Intubated and sedated. Cover for Int Pernell-dr Mcghee. Objective Last Vital Signs Date Time Temp Pulse Resp B/P (MAP) Pulse Ox O2 Delivery O2 Flow Rate FiO2 07/20/17 12:41 72 15 30 07/20/17 12:00 98.6 128/70 98 Mechanical Ventilator Laboratory Tests Test 07/20/17 03:00 White Blood Count 10.2 K/UL (4.8-10.8) Red Blood Count 3.01 M/UL (4.20-5.40) L Hemoglobin 9.5 G/DL (12.0-16.0) L Hematocrit 28.4 % (37.0-47.0) L Mean Corpuscular Volume 94 FL (80-99) Mean Corpuscular Hemoglobin 31.4 PG (27.0-31.0) H Mean Corpuscular Hemoglobin Concent 33.3 G/DL (32.0-36.0) Red Cell Distribution Width 13.6 % (11.6-14.8) Platelet Count 419 K/UL (150-450) Mean Platelet Volume 6.5 FL (6.5-10.1) Neutrophils (%) (Auto) 61.5 % (45.0-75.0) Lymphocytes (%) (Auto) 25.7 % (20.0-45.0) Monocytes (%) (Auto) 6.8 % (1.0-10.0) Eosinophils (%) (Auto) 5.4 % (0.0-3.0) H Basophils (%) (Auto) 0.5 % (0.0-2.0) Sodium Level 145 MMOL/L (136-145) Potassium Level 3.8 MMOL/L (3.5-5.1) Chloride Level 109 MMOL/L (98-107) H Carbon Dioxide Level 32 MMOL/L (21-32) Anion Gap 4 mmol/L (5-15) L Blood Urea Nitrogen 21 mg/dL (7-18) H Creatinine 0.9 MG/DL (0.55-1.30) Estimat Glomerular Filtration Rate mL/min (>60) Glucose Level 76 MG/DL (74-106) Calcium Level 9.0 MG/DL (8.5-10.1) Phosphorus Level 3.5 MG/DL (2.5-4.9) Magnesium Level 1.5 MG/DL (1.8-2.4) L Total Bilirubin 0.3 MG/DL (0.2-1.0) Aspartate Amino Transf (AST/SGOT) 31 U/L (15-37) Alanine Aminotransferase (ALT/SGPT) 29 U/L (12-78) Alkaline Phosphatase 90 U/L (46-116) Total Protein 7.9 G/DL (6.4-8.2) Albumin 1.7 G/DL (3.4-5.0) L Globulin 6.2 g/dL Albumin/Globulin Ratio 0.3 (1.0-2.7) L Intake and Output 07/20/17 07/21/17 19:00 07:00 Intake Total 255 ml Balance 255 ml IV Total 255 ml Objective General Appearance: WD/WN, moderate distress, lethargic EENT: PERRL/EOMI, normal ENT inspection Neck: trach; non-tender, normal alignment, supple, other - tracheostomy Cardiovascular: normal peripheral pulses, normal rate, regular rhythm, no gallop/murmur, no JVD Respiratory/Chest: Mechanical vent; chest wall non-tender, crackles/rales, rhonchi - bilaterally, expiratory wheezing Abdomen: normal bowel sounds, non tender, soft, no organomegaly, no mass Extremities: non-tender Neurologic: relief map modeler II-XII grossly normal Skin: normal pigmentation, warm/dry Assessment/Plan Problem List: (1) Fever (2) Hypotension Assessment & Plan: Due to Sepsis-Cont antibiotics per ID (3) Sepsis Assessment & Plan: Await cultures. Cont colistin, meropenem and tigecycline per ID. (4) Respiratory failure Assessment & Plan: Due to pneumonia. Cont mech vent-see pulmonary note. (5) Tracheostomy care (6) HTN (hypertension) Assessment & Plan: Current hypotensive. (7) Seizure disorder (8) Dysphagia Assessment & Plan: G-tube feeds per GI (9) Pneumonia Assessment & Plan: A. Baumanii. Continue meropenem, tigecycline and colistin per ID (10) Septic shock (11) Anemia Assessment & Plan: Worsening; S/P transfusion 2 unit PRBC 07/09/17 (12) Hypernatremia Assessment & Plan: Change IV fluid to 1/2 NS Assessment/Plan See social work note; RE: Public guardian decision regarding comfort measures. Patient now DNR TOMI MOREAU Jul 20, 2017 13:00
[2017-07-20] MEDS ORDERED: 1/2 NS 1000ml IV ONE (15:46)
[2017-07-20 16:00] VITALS: BP 142/75
[2017-07-20 20:00] VITALS: BP 147/52
[2017-07-20] MEDS: Dyna-Hex 2% Top Sol 2oz TOPIC SCH (20:02)
[2017-07-21] VITALS: BP 132/65
[2017-07-21 04:00] VITALS: BP 128/57
[2017-07-21 05:23] LABS: BASOPHILS % (AUTO) 0.6 % (0.0-2.0); EOSINOPHILS % (AUTO) 5.6 % (0.0-3.0); LYMPHOCYTES % (AUTO) 22.8 % (20.0-45.0); MEAN CORPUSCULAR HEMOGLOBIN 31.6 PG (27.0-31.0); MEAN CORPUSCULAR HGB CONC 33.5 G/DL (32.0-36.0); MEAN CORPUSCULAR VOLUME 95 FL (80-99); MEAN PLATELET VOLUME 6.2 FL (6.5-10.1); PLATELET COUNT 433 K/UL (150-450); RED BLOOD COUNT 3.13 M/UL (4.20-5.40); RED CELL DISTRIBUTION WIDTH 13.5 % (11.6-14.8); WHITE BLOOD COUNT 12.5 K/UL (4.8-10.8)
[2017-07-21 05:46] LABS: ANION GAP 6 mmol/L (5-15); CALCIUM 8.9 MG/DL (8.5-10.1); CARBON DIOXIDE 30 MMOL/L (21-32); CHLORIDE 111 MMOL/L (98-107); CREATININE 0.9 MG/DL (0.55-1.30); POTASSIUM 3.5 MMOL/L (3.5-5.1); SODIUM 147 MMOL/L (136-145)
[2017-07-21 08:00] VITALS: BP 151/66
[2017-07-21] MEDS: Pantoprazole Inj IVP SCH (09:18)
[2017-07-21] MEDS: Amiodarone 200mg tab GT SCH (09:18)
[2017-07-21] MEDS: D5W IVPB SCH ×2 (09:23→21:24)
[2017-07-21] MEDS: Colistin 150mg vial IVP SCH ×2 (09:23→21:24)
[2017-07-21] MEDS: Heparin 5000 units/ml inj SUBQ SCH ×2 (09:23→21:25)
[2017-07-21] MEDS: TIGECYCLINE IVPB SCH ×2 (09:23→21:24)
[2017-07-21] MEDS: Colistin for inhalation INH SCH ×2 (09:28→21:36)
--- NOTE | 2017-07-21 09:34 | Infectious Diseases Prog Note ---
Assessment/Plan Assessment/Plan Septic shock, SP PNA Scx: MDR- ACB (S. Colistin, Tygecicline, Minocycline, Polymixin B); improving -CXR 07/17: Improved left pleural effusion, slightly improved left-sided pulmonaryparenchymal disease, over 5 days. -CXR: Interstitial edema, vascular prominence, borderline cardiomegaly and hazy basilar opacities probably pleural effusions demonstrated. 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, VRE colonized No ABX allergies Full Code Plan: -continue Meropenem d# / , Colistin INH/ IV d# 12 / , Tygacil d # 7 /7 ( 07/13 SP IV Vancomycin # 7 ) ( 07/08 SP Amikacin d# 2 ) -Monitor CBC/BMP, temperatures; Trend WBC; reculture if worsening -Monitor CXR -trach/peg care Subjective Allergies: Coded Allergies: ASPIRIN (Verified Allergy, Unknown, 07/07/17) Subjective afebrile mild leukocytosis to 12 today; clinically unchanged Objective Vital Signs Last 24 Hour Vital Signs Date Time Temp Pulse Resp B/P (MAP) Pulse Ox O2 Delivery O2 Flow Rate FiO2 07/21/17 08:00 98.4 71 16 151/66 97 Mechanical Ventilator 30 70 07/21/17 08:00 30 07/21/17 05:07 76 16 30 07/21/17 04:00 30 07/21/17 04:00 72 07/21/17 04:00 98.2 71 17 128/57 98 Mechanical Ventilator 71 07/21/17 03:10 72 18 30 07/21/17 01:15 77 17 30 07/21/17 00:00 30 07/21/17 00:00 77 07/21/17 00:00 98.2 79 18 132/65 99 Mechanical Ventilator 30 79 07/20/17 23:08 71 20 30 07/20/17 22:05 77 16 100 Mechanical Ventilator 30 07/20/17 21:50 81 16 98 Mechanical Ventilator 30 07/20/17 21:50 81 16 30 07/20/17 20:00 80 07/20/17 20:00 98.4 86 20 147/52 100 Mechanical Ventilator 30 86 07/20/17 20:00 30 07/20/17 19:24 81 17 30 07/20/17 16:31 78 16 30 07/20/17 16:00 30 07/20/17 16:00 79 07/20/17 16:00 99.0 86 21 142/75 100 Mechanical Ventilator 30 86 07/20/17 15:15 77 16 30 07/20/17 12:41 72 15 30 07/20/17 12:00 70 07/20/17 12:00 98.6 76 16 128/70 98 Mechanical Ventilator 30 76 07/20/17 12:00 30 07/20/17 10:41 70 19 30 Height (Feet): 5 Height (Inches): 4.00 Weight (Pounds): 155 Objective HEENT: anicteric Respiratory/Chest: no respiratory distress Cardiovascular: regular rhythm Abdomen: no mass Laboratory Tests Test 07/21/17 04:05 White Blood Count 12.5 K/UL (4.8-10.8) H Red Blood Count 3.13 M/UL (4.20-5.40) L Hemoglobin 9.9 G/DL (12.0-16.0) L Hematocrit 29.6 % (37.0-47.0) L Mean Corpuscular Volume 95 FL (80-99) Mean Corpuscular Hemoglobin 31.6 PG (27.0-31.0) H Mean Corpuscular Hemoglobin Concent 33.5 G/DL (32.0-36.0) Red Cell Distribution Width 13.5 % (11.6-14.8) Platelet Count 433 K/UL (150-450) Mean Platelet Volume 6.2 FL (6.5-10.1) L Neutrophils (%) (Auto) 65.0 % (45.0-75.0) Lymphocytes (%) (Auto) 22.8 % (20.0-45.0) Monocytes (%) (Auto) 6.0 % (1.0-10.0) Eosinophils (%) (Auto) 5.6 % (0.0-3.0) H Basophils (%) (Auto) 0.6 % (0.0-2.0) Sodium Level 147 MMOL/L (136-145) H Potassium Level 3.5 MMOL/L (3.5-5.1) Chloride Level 111 MMOL/L (98-107) H Carbon Dioxide Level 30 MMOL/L (21-32) Anion Gap 6 mmol/L (5-15) Blood Urea Nitrogen 22 mg/dL (7-18) H Creatinine 0.9 MG/DL (0.55-1.30) Estimat Glomerular Filtration Rate mL/min (>60) Glucose Level 107 MG/DL (74-106) H Calcium Level 8.9 MG/DL (8.5-10.1) Current Medications Medications (Trade) Dose Ordered Sig/Torsten Route PRN Reason Start Time Stop Time Status Last Admin Dose Admin Acetaminophen (Tylenol) 650 mg Q4H PRN ORAL fever 07/12/17 15:00 08/06/17 14:59 07/15/17 17:07 Amiodarone HCl (Cordarone) 200 mg DAILY GT 07/18/17 09:00 08/17/17 08:59 07/21/17 09:18 Chlorhexidine Gluconate (Mariah-Hex 2%) 1 applic DAILY@1999 TOPIC 07/12/17 20:00 08/07/17 19:59 07/20/17 20:02 Colistimethate Sodium (Colistin *inhalation use only*) 75 mg Q12HR@10,22 INH 07/12/17 22:00 07/22/17 21:59 07/21/17 09:28 Colistimethate Sodium (Colistin) 75 mg EVERY 12 HOURS IVP 07/13/17 21:00 07/22/17 20:59 07/21/17 09:23 Diltiazem HCl (Cardizem) 15 mg Q1H PRN IVP HR > 120 BPM 07/12/17 14:30 08/10/17 11:29 Heparin Sodium (Porcine) (Heparin 5000 units/ml) 5,000 units EVERY 12 HOURS SUBQ 07/12/17 21:00 08/06/17 20:59 07/21/17 09:23 Lorazepam (Ativan 2mg/ml 1ml) 2 mg Q4H PRN IV For Anxiety 07/15/17 15:00 07/22/17 14:59 07/18/17 10:28 Meropenem 2 gm/ Sodium Chloride 110 ml @ 220 mls/hr Q12HR@1100,2300 IVPB 07/12/17 23:00 07/21/17 23:59 07/20/17 23:08 Ondansetron HCl (Zofran) 4 mg Q6H PRN IVP Nausea & Vomiting 07/12/17 15:30 08/06/17 15:29 Pantoprazole (Protonix) 40 mg DAILY IVP 07/13/17 09:00 08/07/17 08:59 07/21/17 09:18 Polyethylene Glycol (Miralax) 17 gm DAILYPRN PRN GT Constipation 07/16/17 13:30 08/06/17 15:29 Tigecycline 50 mg/ Dextrose 55 ml @ 110 mls/hr EVERY 12 HOURS IVPB 07/15/17 21:00 07/22/17 20:59 07/21/17 09:23 Yane Umana M.D. Jul 21, 2017 09:34
[2017-07-21] MEDS ORDERED: Tubing IV Secondary IV ONE (10:08)
[2017-07-21] MEDS ORDERED: NS 500ML ONE (10:08)
--- NOTE | 2017-07-21 10:27 | Pulmonology Progress Note ---
Assessment/Plan Problems: (1) Acute and chronic respiratory failure (2) Pneumonia (3) Anemia (4) Fever (5) Seizure disorder (6) HTN (hypertension) (7) Tracheostomy care Respiratory: monitor respiratory rate, adjust FIO2, CXR Cardiac: continue to monitor HR/BP Renal: F/U I&O, keep IV fluid Infectious Disease: check cultures Gastrointestinal: continue feedings/current rate Endocrine: monitor blood sugar, check HgA1C Hematologic: monitor H/H, transfuse if hgb<8.5 Neurologic: PRN Ativan, PRN Morphine, keep patient comfortable Notes Reviewed: cardio, 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, disability case manager Subjective ROS Limited/Unobtainable: No Constitutional: Reports: no symptoms HEENT: Repors: no symptoms Respiratory: Reports: no symptoms Allergies: Coded Allergies: ASPIRIN (Verified Allergy, Unknown, 07/07/17) Objective Last 24 Hour Vital Signs Date Time Temp Pulse Resp B/P (MAP) Pulse Ox O2 Delivery O2 Flow Rate FiO2 07/21/17 09:37 73 16 98 Mechanical Ventilator 15.0 30 07/21/17 09:34 77 16 97 Mechanical Ventilator 07/21/17 09:34 77 16 30 07/21/17 09:34 30 07/21/17 08:00 98.4 71 16 151/66 97 Mechanical Ventilator 30 70 07/21/17 08:00 30 07/21/17 06:35 81 16 30 07/21/17 05:07 76 16 30 07/21/17 04:00 30 07/21/17 04:00 72 07/21/17 04:00 98.2 71 17 128/57 98 Mechanical Ventilator 71 07/21/17 03:10 72 18 30 07/21/17 01:15 77 17 30 07/21/17 00:00 30 07/21/17 00:00 77 07/21/17 00:00 98.2 79 18 132/65 99 Mechanical Ventilator 30 79 07/20/17 23:08 71 20 30 07/20/17 22:05 77 16 100 Mechanical Ventilator 30 07/20/17 21:50 81 16 98 Mechanical Ventilator 30 07/20/17 21:50 81 16 30 07/20/17 20:00 80 07/20/17 20:00 98.4 86 20 147/52 100 Mechanical Ventilator 30 86 07/20/17 20:00 30 07/20/17 19:24 81 17 30 07/20/17 16:31 78 16 30 07/20/17 16:00 30 07/20/17 16:00 79 07/20/17 16:00 99.0 86 21 142/75 100 Mechanical Ventilator 30 86 07/20/17 15:15 77 16 30 07/20/17 12:41 72 15 30 07/20/17 12:00 70 07/20/17 12:00 98.6 76 16 128/70 98 Mechanical Ventilator 30 76 07/20/17 12:00 30 07/20/17 10:41 70 19 30 General Appearance: WD/WN HEENT: normocephalic, atraumatic Respiratory/Chest: chest wall non-tender, lungs clear, chest wall tender Breasts: no masses Cardiovascular: normal peripheral pulses, normal rate Abdomen: normal bowel sounds, soft, non tender Genitourinary: normal external genitalia Extremities: no clubbing Skin: no rash Laboratory Tests 07/21/17 04:05: White Blood Count 12.5H, Red Blood Count 3.13L, Hemoglobin 9.9L, Hematocrit 29.6L, Mean Corpuscular Volume 95, Mean Corpuscular Hemoglobin 31.6H, Mean Corpuscular Hemoglobin Concent 33.5, Red Cell Distribution Width 13.5, Platelet Count 433, Mean Platelet Volume 6.2L, Neutrophils (%) (Auto) 65.0, Lymphocytes ( %) (Auto) 22.8, Monocytes (%) (Auto) 6.0, Eosinophils (%) (Auto) 5.6H, Basophils (%) (Auto) 0.6, Sodium Level 147H, Potassium Level 3.5, Chloride Level 111H, Carbon Dioxide Level 30, Anion Gap 6, Blood Urea Nitrogen 22H, Creatinine 0.9, Estimat Glomerular Filtration Rate , Glucose Level 107H, Calcium Level 8.9 Current Medications Medications (Trade) Dose Ordered Sig/Torsten Route PRN Reason Start Time Stop Time Status Last Admin Dose Admin Acetaminophen (Tylenol) 650 mg Q4H PRN ORAL fever 07/12/17 15:00 08/06/17 14:59 07/15/17 17:07 Amiodarone HCl (Cordarone) 200 mg DAILY GT 07/18/17 09:00 08/17/17 08:59 07/21/17 09:18 Chlorhexidine Gluconate (Mariah-Hex 2%) 1 applic DAILY@2000 TOPIC 07/12/17 20:00 08/07/17 19:59 07/20/17 20:02 Colistimethate Sodium (Colistin *inhalation use only*) 75 mg Q12HR@10,22 INH 07/12/17 22:00 07/22/17 21:59 07/21/17 09:28 Colistimethate Sodium (Colistin) 75 mg EVERY 12 HOURS IVP 07/13/17 21:00 07/22/17 20:59 07/21/17 09:23 Diltiazem HCl (Cardizem) 15 mg Q1H PRN IVP HR > 120 BPM 07/12/17 14:30 08/10/17 11:29 Heparin Sodium (Porcine) (Heparin 5000 units/ml) 5,000 units EVERY 12 HOURS SUBQ 07/12/17 21:00 08/06/17 20:59 07/21/17 09:23 Lorazepam (Ativan 2mg/ml 1ml) 2 mg Q4H PRN IV For Anxiety 07/15/17 15:00 07/22/17 14:59 07/18/17 10:28 Meropenem 2 gm/ Sodium Chloride 110 ml @ 220 mls/hr Q12HR@1100,2300 IVPB 07/12/17 23:00 07/21/17 23:59 07/20/17 23:08 Ondansetron HCl (Zofran) 4 mg Q6H PRN IVP Nausea & Vomiting 07/12/17 15:30 08/06/17 15:29 Pantoprazole (Protonix) 40 mg DAILY IVP 07/13/17 09:00 08/07/17 08:59 07/21/17 09:18 Polyethylene Glycol (Miralax) 17 gm DAILYPRN PRN GT Constipation 07/16/17 13:30 08/06/17 15:29 Tigecycline 50 mg/ Dextrose 55 ml @ 110 mls/hr EVERY 12 HOURS IVPB 07/15/17 21:00 07/22/17 20:59 07/21/17 09:23 COBY LEBLANC Jul 21, 2017 10:27
[2017-07-21] MEDS ORDERED: PACERONE200 MG GT (10:28)
[2017-07-21] MEDS ORDERED: COLISTIN150 MG INH (10:29)
[2017-07-21] MEDS: Meropenem 2 GM in NS 110 ML IVPB SCH ×2 (11:24→23:41)
[2017-07-21 12:00] VITALS: BP 107/58
--- NOTE | 2017-07-21 14:39 | Internal Med Progress Note ---
Subjective Date of Service: Jul 21, 2017 Physician Name Moreau,Tomi Attending Physician Ho Mcghee MD Current Medications Medications (Trade) Dose Ordered Sig/Torsten Route PRN Reason Start Time Stop Time Status Last Admin Dose Admin Acetaminophen (Tylenol) 650 mg Q4H PRN ORAL fever 07/12/17 15:00 08/06/17 14:59 07/15/17 17:07 Amiodarone HCl (Cordarone) 200 mg DAILY GT 07/18/17 09:00 08/17/17 08:59 07/21/17 09:18 Chlorhexidine Gluconate (Mariah-Hex 2%) 1 applic DAILY@1999 TOPIC 07/12/17 20:00 08/07/17 19:59 07/20/17 20:02 Colistimethate Sodium (Colistin *inhalation use only*) 75 mg Q12HR@10,22 INH 07/12/17 22:00 07/23/17 23:59 07/21/17 09:28 Colistimethate Sodium (Colistin) 75 mg EVERY 12 HOURS IVP 07/13/17 21:00 07/23/17 23:59 07/21/17 09:23 Diltiazem HCl (Cardizem) 15 mg Q1H PRN IVP HR > 120 BPM 07/12/17 14:30 08/10/17 11:29 Heparin Sodium (Porcine) (Heparin 5000 units/ml) 5,000 units EVERY 12 HOURS SUBQ 07/12/17 21:00 08/06/17 20:59 07/21/17 09:23 Lorazepam (Ativan 2mg/ml 1ml) 2 mg Q4H PRN IV For Anxiety 07/15/17 15:00 07/22/17 14:59 07/18/17 10:28 Meropenem 2 gm/ Sodium Chloride 110 ml @ 220 mls/hr Q12HR@1100,2300 IVPB 07/12/17 23:00 07/21/17 23:59 07/21/17 11:24 Ondansetron HCl (Zofran) 4 mg Q6H PRN IVP Nausea & Vomiting 07/12/17 15:30 08/06/17 15:29 Pantoprazole (Protonix) 40 mg DAILY IVP 07/13/17 09:00 08/07/17 08:59 07/21/17 09:18 Polyethylene Glycol (Miralax) 17 gm DAILYPRN PRN GT Constipation 07/16/17 13:30 08/06/17 15:29 Tigecycline 50 mg/ Dextrose 55 ml @ 110 mls/hr EVERY 12 HOURS IVPB 07/15/17 21:00 07/22/17 20:59 07/21/17 09:23 Allergies: Coded Allergies: ASPIRIN (Verified Allergy, Unknown, 07/07/17) ROS Limited/Unobtainable: Yes Subjective 82 YO F admitted with hypotension and pneumonia. MARTHA. Intubated and sedated. Cover for Int Med-dr Mcghee. Await acceptance at [facility] Objective Last Vital Signs Date Time Temp Pulse Resp B/P (MAP) Pulse Ox O2 Delivery O2 Flow Rate FiO2 07/21/17 13:08 77 16 30 07/21/17 12:00 98.1 107/58 96 Mechanical Ventilator 07/21/17 09:37 15.0 Laboratory Tests Test 07/21/17 04:05 White Blood Count 12.5 K/UL (4.8-10.8) H Red Blood Count 3.13 M/UL (4.20-5.40) L Hemoglobin 9.9 G/DL (12.0-16.0) L Hematocrit 29.6 % (37.0-47.0) L Mean Corpuscular Volume 95 FL (80-99) Mean Corpuscular Hemoglobin 31.6 PG (27.0-31.0) H Mean Corpuscular Hemoglobin Concent 33.5 G/DL (32.0-36.0) Red Cell Distribution Width 13.5 % (11.6-14.8) Platelet Count 433 K/UL (150-450) Mean Platelet Volume 6.2 FL (6.5-10.1) L Neutrophils (%) (Auto) 65.0 % (45.0-75.0) Lymphocytes (%) (Auto) 22.8 % (20.0-45.0) Monocytes (%) (Auto) 6.0 % (1.0-10.0) Eosinophils (%) (Auto) 5.6 % (0.0-3.0) H Basophils (%) (Auto) 0.6 % (0.0-2.0) Sodium Level 147 MMOL/L (136-145) H Potassium Level 3.5 MMOL/L (3.5-5.1) Chloride Level 111 MMOL/L (98-107) H Carbon Dioxide Level 30 MMOL/L (21-32) Anion Gap 6 mmol/L (5-15) Blood Urea Nitrogen 22 mg/dL (7-18) H Creatinine 0.9 MG/DL (0.55-1.30) Estimat Glomerular Filtration Rate mL/min (>60) Glucose Level 107 MG/DL (74-106) H Calcium Level 8.9 MG/DL (8.5-10.1) Intake and Output 07/21/17 07/22/17 19:00 07:00 Intake Total 55 ml Balance 55 ml IV Total 55 ml Objective General Appearance: WD/WN, moderate distress, lethargic EENT: PERRL/EOMI, normal ENT inspection Neck: trach; non-tender, normal alignment, supple, other - tracheostomy Cardiovascular: normal peripheral pulses, normal rate, regular rhythm, no gallop/murmur, no JVD Respiratory/Chest: Mechanical vent; chest wall non-tender, crackles/rales, rhonchi - bilaterally, expiratory wheezing Abdomen: normal bowel sounds, non tender, soft, no organomegaly, no mass Extremities: non-tender Neurologic: centrifugal screen tender II-XII grossly normal Skin: normal pigmentation, warm/dry Assessment/Plan Problem List: (1) Fever (2) Hypotension Assessment & Plan: Due to Sepsis-Cont antibiotics per ID (3) Sepsis Assessment & Plan: Await cultures. Cont colistin, meropenem and tigecycline per ID. (4) Respiratory failure Assessment & Plan: Due to pneumonia. Cont mech vent-see pulmonary note. (5) Tracheostomy care (6) HTN (hypertension) Assessment & Plan: Current hypotensive. (7) Seizure disorder (8) Dysphagia Assessment & Plan: G-tube feeds per GI (9) Pneumonia Assessment & Plan: A. Baumanii. Continue meropenem, tigecycline and colistin per ID (10) Septic shock (11) Anemia Assessment & Plan: Worsening; S/P transfusion 2 unit PRBC 07/09/17 (12) Hypernatremia Assessment & Plan: Change IV fluid to 1/2 NS Assessment/Plan See social work note; RE: Public guardian decision regarding comfort measures. Patient now DNR. Transfer to [facility] when bed available. TOMI MOREAU Jul 21, 2017 14:39
--- NOTE | 2017-07-21 15:46 | Cardiology Progress Note ---
Assessment/Plan Assessment/Plan 1. Tachycardia consistent with atrial fibrillation now in sinus 2. Pulmonary infiltrates. 3. Chronic respiratory failure, on a ventilator. 4. Anemia. 5. Hypernatremia. 6. Gastrostomy tube dependence. 7. Ventilator dependence. trop neg tele reviewed sinus no afib any more as of 07/19/2017 echo normla lv function , p htn to reviewed venous duplex showed recanalized thrombus right side amiod await snf bed Subjective ROS Limited/Unobtainable: Yes Objective Last 24 Hour Vital Signs Date Time Temp Pulse Resp B/P (MAP) Pulse Ox O2 Delivery O2 Flow Rate FiO2 07/21/17 15:16 78 16 30 07/21/17 13:08 77 16 30 07/21/17 13:00 69 07/21/17 12:00 30 07/21/17 12:00 98.1 70 16 107/58 96 Mechanical Ventilator 30 70 07/21/17 10:41 69 16 30 07/21/17 09:37 73 16 98 Mechanical Ventilator 15.0 30 07/21/17 09:34 77 16 97 Mechanical Ventilator 07/21/17 09:34 77 16 30 07/21/17 09:34 30 07/21/17 08:00 98.4 71 16 151/66 97 Mechanical Ventilator 30 70 07/21/17 08:00 30 07/21/17 07:35 68 07/21/17 06:35 81 16 30 07/21/17 05:07 76 16 30 07/21/17 04:00 30 07/21/17 04:00 72 07/21/17 04:00 98.2 71 17 128/57 98 Mechanical Ventilator 71 07/21/17 03:10 72 18 30 07/21/17 01:15 77 17 30 07/21/17 00:00 30 07/21/17 00:00 77 07/21/17 00:00 98.2 79 18 132/65 99 Mechanical Ventilator 30 79 07/20/17 23:08 71 20 30 07/20/17 22:05 77 16 100 Mechanical Ventilator 30 07/20/17 21:50 81 16 98 Mechanical Ventilator 30 07/20/17 21:50 81 16 30 07/20/17 20:00 80 07/20/17 20:00 98.4 86 20 147/52 100 Mechanical Ventilator 30 86 07/20/17 20:00 30 07/20/17 19:24 81 17 30 07/20/17 16:31 78 16 30 07/20/17 16:00 30 07/20/17 16:00 79 07/20/17 16:00 99.0 86 21 142/75 100 Mechanical Ventilator 30 86 General Appearance: no apparent distress, on vent, patient on isolation Intake and Output 07/21/17 07/22/17 19:00 07:00 Intake Total 55 ml Balance 55 ml IV Total 55 ml Laboratory Tests Test 07/21/17 04:05 White Blood Count 12.5 K/UL (4.8-10.8) H Red Blood Count 3.13 M/UL (4.20-5.40) L Hemoglobin 9.9 G/DL (12.0-16.0) L Hematocrit 29.6 % (37.0-47.0) L Mean Corpuscular Volume 95 FL (80-99) Mean Corpuscular Hemoglobin 31.6 PG (27.0-31.0) H Mean Corpuscular Hemoglobin Concent 33.5 G/DL (32.0-36.0) Red Cell Distribution Width 13.5 % (11.6-14.8) Platelet Count 433 K/UL (150-450) Mean Platelet Volume 6.2 FL (6.5-10.1) L Neutrophils (%) (Auto) 65.0 % (45.0-75.0) Lymphocytes (%) (Auto) 22.8 % (20.0-45.0) Monocytes (%) (Auto) 6.0 % (1.0-10.0) Eosinophils (%) (Auto) 5.6 % (0.0-3.0) H Basophils (%) (Auto) 0.6 % (0.0-2.0) Sodium Level 147 MMOL/L (136-145) H Potassium Level 3.5 MMOL/L (3.5-5.1) Chloride Level 111 MMOL/L (98-107) H Carbon Dioxide Level 30 MMOL/L (21-32) Anion Gap 6 mmol/L (5-15) Blood Urea Nitrogen 22 mg/dL (7-18) H Creatinine 0.9 MG/DL (0.55-1.30) Estimat Glomerular Filtration Rate mL/min (>60) Glucose Level 107 MG/DL (74-106) H Calcium Level 8.9 MG/DL (8.5-10.1) ALAINA SINGLETON Jul 21, 2017 15:46
[2017-07-21 16:00] VITALS: BP 140/77
[2017-07-21 20:00] VITALS: BP 129/60
[2017-07-21] MEDS: Dyna-Hex 2% Top Sol 2oz TOPIC SCH (21:24)
[2017-07-22] VITALS: BP 144/79
[2017-07-22] MEDS: LORazepam Inj 2mg/ml 1ml IV PRN (00:50)
[2017-07-22 04:00] VITALS: BP 124/58
[2017-07-22 04:52] LABS: BASOPHILS % (AUTO) 1.1 % (0.0-2.0); EOSINOPHILS % (AUTO) 5.7 % (0.0-3.0); LYMPHOCYTES % (AUTO) 24.5 % (20.0-45.0); MEAN CORPUSCULAR HEMOGLOBIN 29.1 PG (27.0-31.0); MEAN CORPUSCULAR HGB CONC 31.2 G/DL (32.0-36.0); MEAN CORPUSCULAR VOLUME 93 FL (80-99); MEAN PLATELET VOLUME 6.5 FL (6.5-10.1); MONOCYTES % (AUTO) 7.6 % (1.0-10.0); NEUTROPHILS % (AUTO) 61.1 % (45.0-75.0); PLATELET COUNT 471 K/UL (150-450); RED BLOOD COUNT 3.51 M/UL (4.20-5.40); RED CELL DISTRIBUTION WIDTH 13.3 % (11.6-14.8); WHITE BLOOD COUNT 12.5 K/UL (4.8-10.8)
[2017-07-22 05:07] LABS: ANION GAP 6 mmol/L (5-15); CALCIUM 9.1 MG/DL (8.5-10.1); CARBON DIOXIDE 29 MMOL/L (21-32); CHLORIDE 114 MMOL/L (98-107); CREATININE 1.1 MG/DL (0.55-1.30); POTASSIUM 3.6 MMOL/L (3.5-5.1); SODIUM 149 MMOL/L (136-145)
[2017-07-22 08:00] VITALS: BP 120/65
[2017-07-22] MEDS: Amiodarone 200mg tab GT SCH (08:46)
[2017-07-22] MEDS: D5W IVPB SCH (08:47)
[2017-07-22] MEDS: TIGECYCLINE IVPB SCH (08:47)
[2017-07-22] MEDS: Heparin 5000 units/ml inj SUBQ SCH ×2 (08:49→20:58)
--- NOTE | 2017-07-22 09:08 | Pulmonology Progress Note ---
Assessment/Plan Problems: (1) Acute and chronic respiratory failure (2) Pneumonia (3) Anemia (4) Fever (5) Seizure disorder (6) HTN (hypertension) (7) Tracheostomy care Respiratory: monitor respiratory rate, adjust FIO2 Cardiac: continue pressors, continue to monitor HR/BP Renal: F/U I&O Infectious Disease: check cultures, continue antibiotics Gastrointestinal: continue feedings/current rate Endocrine: monitor blood sugar, continue sliding scale insulin Hematologic: monitor H/H, transfuse if hgb<8.5 Neurologic: PRN Ativan, PRN Morphine, keep patient comfortable Affect: PRN ativan Prophylaxis: Protonix Notes Reviewed: fiscal services manager, cardio, 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, consultants, case monitor Subjective ROS Limited/Unobtainable: Yes Constitutional: Reports: no symptoms HEENT: Repors: no symptoms Respiratory: Reports: no symptoms Allergies: Coded Allergies: ASPIRIN (Verified Allergy, Unknown, 07/07/17) Objective Last 24 Hour Vital Signs Date Time Temp Pulse Resp B/P (MAP) Pulse Ox O2 Delivery O2 Flow Rate FiO2 07/22/17 06:46 58 16 30 07/22/17 05:06 75 16 30 07/22/17 04:53 98.9 07/22/17 04:00 80 07/22/17 04:00 30 07/22/17 04:00 100.0 81 16 124/58 99 Mechanical Ventilator 30 81 07/22/17 02:52 74 16 30 07/22/17 01:00 69 16 30 07/22/17 00:00 98.2 74 16 144/79 99 Mechanical Ventilator 30 74 07/22/17 00:00 30 07/22/17 00:00 69 07/21/17 22:55 66 16 30 07/21/17 21:47 76 16 100 Mechanical Ventilator 15.0 30 07/21/17 21:34 82 16 98 Mechanical Ventilator 30 07/21/17 21:30 82 16 30 07/21/17 20:00 75 07/21/17 20:00 30 07/21/17 20:00 99.0 76 20 129/60 99 Mechanical Ventilator 30 76 07/21/17 18:50 84 16 30 07/21/17 16:53 73 16 30 07/21/17 16:00 98.6 74 24 140/77 96 Mechanical Ventilator 30 70 07/21/17 16:00 30 07/21/17 15:54 68 07/21/17 15:16 78 16 30 07/21/17 13:08 77 16 30 07/21/17 13:00 69 07/21/17 12:00 30 07/21/17 12:00 98.1 70 16 107/58 96 Mechanical Ventilator 30 70 07/21/17 10:41 69 16 30 07/21/17 09:37 73 16 98 Mechanical Ventilator 15.0 30 07/21/17 09:34 77 16 97 Mechanical Ventilator 07/21/17 09:34 77 16 30 07/21/17 09:34 30 General Appearance: WD/WN HEENT: normocephalic, atraumatic Respiratory/Chest: chest wall non-tender, normal breath sounds Cardiovascular: normal peripheral pulses, normal rate Abdomen: soft, non tender, non distended Extremities: no cyanosis, no clubbing Skin: no rash Laboratory Tests 07/22/17 04:00: White Blood Count 12.5H, Red Blood Count 3.51L, Hemoglobin 10.2L, Hematocrit 32.8L, Mean Corpuscular Volume 93, Mean Corpuscular Hemoglobin 29.1, Mean Corpuscular Hemoglobin Concent 31.2L, Red Cell Distribution Width 13.3, Platelet Count 471H, Mean Platelet Volume 6.5, Neutrophils (%) (Auto) 61.1, Lymphocytes (%) (Auto) 24.5, Monocytes (%) (Auto) 7.6, Eosinophils (%) (Auto) 5.7H, Basophils (%) (Auto) 1.1, Sodium Level 149H, Potassium Level 3.6, Chloride Level 114H, Carbon Dioxide Level 29, Anion Gap 6, Blood Urea Nitrogen 24H, Creatinine 1.1, Estimat Glomerular Filtration Rate , Glucose Level 105, Calcium Level 9.1 Current Medications Medications (Trade) Dose Ordered Sig/Torsten Route PRN Reason Start Time Stop Time Status Last Admin Dose Admin Acetaminophen (Tylenol) 650 mg Q4H PRN ORAL fever 07/12/17 15:00 08/06/17 14:59 07/22/17 03:54 Amiodarone HCl (Cordarone) 200 mg DAILY GT 07/18/17 09:00 08/17/17 08:59 07/22/17 08:46 Chlorhexidine Gluconate (Mariah-Hex 2%) 1 applic DAILY@2000 TOPIC 07/12/17 20:00 08/07/17 19:59 07/21/17 21:24 Colistimethate Sodium (Colistin *inhalation use only*) 75 mg Q12HR@10,22 INH 07/12/17 22:00 07/23/17 23:59 07/21/17 21:36 Colistimethate Sodium (Colistin) 75 mg EVERY 12 HOURS IVP 07/13/17 21:00 07/23/17 23:59 07/21/17 21:24 Diltiazem HCl (Cardizem) 15 mg Q1H PRN IVP HR > 120 BPM 07/12/17 14:30 08/10/17 11:29 Heparin Sodium (Porcine) (Heparin 5000 units/ml) 5,000 units EVERY 12 HOURS SUBQ 07/12/17 21:00 08/06/17 20:59 07/22/17 08:49 Lansoprazole (Prevacid) 30 mg DAILY GT 07/22/17 09:00 08/21/17 08:59 07/22/17 08:46 Lorazepam (Ativan 2mg/ml 1ml) 2 mg Q4H PRN IV For Anxiety 07/15/17 15:00 07/22/17 14:59 07/22/17 00:50 Ondansetron HCl (Zofran) 4 mg Q6H PRN IVP Nausea & Vomiting 07/12/17 15:30 08/06/17 15:29 Polyethylene Glycol (Miralax) 17 gm DAILYPRN PRN GT Constipation 07/16/17 13:30 08/06/17 15:29 Tigecycline 50 mg/ Dextrose 55 ml @ 110 mls/hr EVERY 12 HOURS IVPB 07/15/17 21:00 07/22/17 20:59 07/22/17 08:47 COBY LEBLANC Jul 22, 2017 09:08
[2017-07-22] MEDS: Colistin for inhalation INH SCH (09:32)
[2017-07-22] MEDS: Colistin 150mg vial IVP SCH (10:18)
[2017-07-22 12:00] VITALS: BP 140/65
--- NOTE | 2017-07-22 14:50 | Internal Med Progress Note ---
Subjective Date of Service: Jul 22, 2017 Physician Name Moreau,Tomi Attending Physician Ho Mcghee MD Current Medications Medications (Trade) Dose Ordered Sig/Torsten Route PRN Reason Start Time Stop Time Status Last Admin Dose Admin Acetaminophen (Tylenol) 650 mg Q4H PRN ORAL fever 07/12/17 15:00 08/06/17 14:59 07/22/17 03:54 Amiodarone HCl (Cordarone) 200 mg DAILY GT 07/18/17 09:00 08/17/17 08:59 07/22/17 08:46 Chlorhexidine Gluconate (Mariah-Hex 2%) 1 applic DAILY@1999 TOPIC 07/12/17 20:00 08/07/17 19:59 07/21/17 21:24 Colistimethate Sodium (Colistin *inhalation use only*) 75 mg Q12HR@ INH 07/12/17 22:00 07/23/17 23:59 07/22/17 09:32 Colistimethate Sodium (Colistin) 75 mg EVERY 12 HOURS IVP 07/13/17 21:00 07/23/17 23:59 07/22/17 10:18 Dextrose 1,000 ml @ 50 mls/hr Q20H IV 07/22/17 10:00 08/21/17 09:59 07/22/17 10:24 Diltiazem HCl (Cardizem) 15 mg Q1H PRN IVP HR > 120 BPM 07/12/17 14:30 08/10/17 11:29 Heparin Sodium (Porcine) (Heparin 5000 units/ml) 5,000 units EVERY 12 HOURS SUBQ 07/12/17 21:00 08/06/17 20:59 07/22/17 08:49 Lansoprazole (Prevacid) 30 mg DAILY GT 07/22/17 09:00 08/21/17 08:59 07/22/17 08:46 Lorazepam (Ativan 2mg/ml 1ml) 2 mg Q4H PRN IV For Anxiety 07/15/17 15:00 07/22/17 14:59 07/22/17 00:50 Ondansetron HCl (Zofran) 4 mg Q6H PRN IVP Nausea & Vomiting 07/12/17 15:30 08/06/17 15:29 Polyethylene Glycol (Miralax) 17 gm DAILYPRN PRN GT Constipation 07/16/17 13:30 08/06/17 15:29 Tigecycline 50 mg/ Dextrose 55 ml @ 110 mls/hr EVERY 12 HOURS IVPB 07/15/17 21:00 07/22/17 20:59 07/22/17 08:47 Allergies: Coded Allergies: ASPIRIN (Verified Allergy, Unknown, 07/07/17) ROS Limited/Unobtainable: Yes Subjective 82 YO F admitted with hypotension and pneumonia. MARTHA. Intubated and sedated. Cover for Int Med-dr Mcghee. Not accepted at [facility] fac-await placement Objective Last Vital Signs Date Time Temp Pulse Resp B/P (MAP) Pulse Ox O2 Delivery O2 Flow Rate FiO2 07/22/17 12:42 69 16 30 07/22/17 12:00 97.9 140/65 100 Mechanical Ventilator 07/22/17 09:38 15.0 Laboratory Tests Test 07/22/17 04:00 White Blood Count 12.5 K/UL (4.8-10.8) H Red Blood Count 3.51 M/UL (4.20-5.40) L Hemoglobin 10.2 G/DL (12.0-16.0) L Hematocrit 32.8 % (37.0-47.0) L Mean Corpuscular Volume 93 FL (80-99) Mean Corpuscular Hemoglobin 29.1 PG (27.0-31.0) Mean Corpuscular Hemoglobin Concent 31.2 G/DL (32.0-36.0) L Red Cell Distribution Width 13.3 % (11.6-14.8) Platelet Count 471 K/UL (150-450) H Mean Platelet Volume 6.5 FL (6.5-10.1) Neutrophils (%) (Auto) 61.1 % (45.0-75.0) Lymphocytes (%) (Auto) 24.5 % (20.0-45.0) Monocytes (%) (Auto) 7.6 % (1.0-10.0) Eosinophils (%) (Auto) 5.7 % (0.0-3.0) H Basophils (%) (Auto) 1.1 % (0.0-2.0) Sodium Level 149 MMOL/L (136-145) H Potassium Level 3.6 MMOL/L (3.5-5.1) Chloride Level 114 MMOL/L (98-107) H Carbon Dioxide Level 29 MMOL/L (21-32) Anion Gap 6 mmol/L (5-15) Blood Urea Nitrogen 24 mg/dL (7-18) H Creatinine 1.1 MG/DL (0.55-1.30) Estimat Glomerular Filtration Rate mL/min (>60) Glucose Level 105 MG/DL (74-106) Calcium Level 9.1 MG/DL (8.5-10.1) Intake and Output 07/22/17 07/23/17 19:00 07:00 Intake Total 230 ml Balance 230 ml IV Total 230 ml Objective General Appearance: WD/WN, moderate distress, lethargic EENT: PERRL/EOMI, normal ENT inspection Neck: trach; non-tender, normal alignment, supple, other - tracheostomy Cardiovascular: normal peripheral pulses, normal rate, regular rhythm, no gallop/murmur, no JVD Respiratory/Chest: Mechanical vent; chest wall non-tender, crackles/rales, rhonchi - bilaterally, expiratory wheezing Abdomen: normal bowel sounds, non tender, soft, no organomegaly, no mass Extremities: non-tender Neurologic: side splitter II-XII grossly normal Skin: normal pigmentation, warm/dry Assessment/Plan Problem List: (1) Fever (2) Hypotension Assessment & Plan: Due to Sepsis-Cont antibiotics per ID (3) Sepsis Assessment & Plan: Await cultures. Cont colistin, meropenem and tigecycline per ID. (4) Respiratory failure Assessment & Plan: Due to pneumonia. Cont mech vent-see pulmonary note. (5) Tracheostomy care (6) HTN (hypertension) Assessment & Plan: Current hypotensive. (7) Seizure disorder (8) Dysphagia Assessment & Plan: G-tube feeds per GI (9) Pneumonia Assessment & Plan: A. Baumanii. Continue meropenem, tigecycline and colistin per ID (10) Septic shock (11) Anemia Assessment & Plan: Worsening; S/P transfusion 2 unit PRBC 07/09/17 (12) Hypernatremia Assessment & Plan: Change IV fluid to 1/2 NS Assessment/Plan See social work note; RE: Public guardian decision regarding comfort measures. Patient now DNR. Not accepted at [facility]. TOMI MOREAU Jul 22, 2017 14:50
[2017-07-22] MEDS ORDERED: NS 500ML ONE (15:12)
[2017-07-22] MEDS ORDERED: Tubing IV Secondary IV ONE (15:12)
--- NOTE | 2017-07-22 15:21 | Infectious Diseases Prog Note ---
Assessment/Plan Assessment/Plan Septic shock, SP PNA Scx: MDR- ACB (S. Colistin, Tygecicline, Minocycline, Polymixin B); SP Rx -CXR 07/17: Improved left pleural effusion, slightly improved left-sided pulmonaryparenchymal disease, over 5 days. -CXR: Interstitial edema, vascular prominence, borderline cardiomegaly and hazy basilar opacities probably pleural effusions demonstrated. 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, VRE colonized No ABX allergies Full Code Plan: DC Colistin INH/ IV d# 13 and Tygacil d # 7 , will monitor pt off of AB Rx ( 07/21 SP Meropenem d# 14/14 )( 07/13 SP IV Vancomycin # 7 ) ( 07/08 SP Amikacin d# 2 ) -Monitor CBC/BMP, temperatures; Trend WBC; reculture if worsening of WBC or recurrent fever -Monitor CXR -trach/peg care Subjective Constitutional: Denies: no symptoms, fever, chills, fatigue, anorexia, drenching sweats, other Allergies: Coded Allergies: ASPIRIN (Verified Allergy, Unknown, 07/07/17) Subjective low grade fever x 1 v Objective Vital Signs Last 24 Hour Vital Signs Date Time Temp Pulse Resp B/P (MAP) Pulse Ox O2 Delivery O2 Flow Rate FiO2 07/22/17 14:49 77 16 30 07/22/17 12:42 69 16 30 07/22/17 12:00 30 07/22/17 12:00 97.9 80 20 140/65 100 Mechanical Ventilator 30 72 07/22/17 11:49 67 07/22/17 11:12 74 16 30 07/22/17 09:38 76 16 30 07/22/17 09:38 76 16 100 Mechanical Ventilator 15.0 30 07/22/17 09:37 76 16 98 Mechanical Ventilator 30 07/22/17 08:00 30 07/22/17 08:00 88 07/22/17 08:00 98.1 88 18 120/65 99 Mechanical Ventilator 30 74 07/22/17 07:50 60 07/22/17 06:46 58 16 30 07/22/17 05:06 75 16 30 07/22/17 04:53 98.9 07/22/17 04:00 80 07/22/17 04:00 30 07/22/17 04:00 100.0 81 16 124/58 99 Mechanical Ventilator 30 81 07/22/17 02:52 74 16 30 07/22/17 01:00 69 16 30 07/22/17 00:00 98.2 74 16 144/79 99 Mechanical Ventilator 30 74 07/22/17 00:00 30 07/22/17 00:00 69 07/21/17 22:55 66 16 30 07/21/17 21:47 76 16 100 Mechanical Ventilator 15.0 30 07/21/17 21:34 82 16 98 Mechanical Ventilator 30 07/21/17 21:30 82 16 30 07/21/17 20:00 75 07/21/17 20:00 30 07/21/17 20:00 99.0 76 20 129/60 99 Mechanical Ventilator 30 76 07/21/17 18:50 84 16 30 07/21/17 16:53 73 16 30 07/21/17 16:00 98.6 74 24 140/77 96 Mechanical Ventilator 30 70 07/21/17 16:00 30 07/21/17 15:54 68 Height (Feet): 5 Height (Inches): 4.00 Weight (Pounds): 155 HEENT: anicteric Respiratory/Chest: respiratory distress Cardiovascular: regularly irregular Abdomen: non distended Laboratory Tests Test 07/22/17 04:00 White Blood Count 12.5 K/UL (4.8-10.8) H Red Blood Count 3.51 M/UL (4.20-5.40) L Hemoglobin 10.2 G/DL (12.0-16.0) L Hematocrit 32.8 % (37.0-47.0) L Mean Corpuscular Volume 93 FL (80-99) Mean Corpuscular Hemoglobin 29.1 PG (27.0-31.0) Mean Corpuscular Hemoglobin Concent 31.2 G/DL (32.0-36.0) L Red Cell Distribution Width 13.3 % (11.6-14.8) Platelet Count 471 K/UL (150-450) H Mean Platelet Volume 6.5 FL (6.5-10.1) Neutrophils (%) (Auto) 61.1 % (45.0-75.0) Lymphocytes (%) (Auto) 24.5 % (20.0-45.0) Monocytes (%) (Auto) 7.6 % (1.0-10.0) Eosinophils (%) (Auto) 5.7 % (0.0-3.0) H Basophils (%) (Auto) 1.1 % (0.0-2.0) Sodium Level 149 MMOL/L (136-145) H Potassium Level 3.6 MMOL/L (3.5-5.1) Chloride Level 114 MMOL/L (98-107) H Carbon Dioxide Level 29 MMOL/L (21-32) Anion Gap 6 mmol/L (5-15) Blood Urea Nitrogen 24 mg/dL (7-18) H Creatinine 1.1 MG/DL (0.55-1.30) Estimat Glomerular Filtration Rate mL/min (>60) Glucose Level 105 MG/DL (74-106) Calcium Level 9.1 MG/DL (8.5-10.1) Current Medications Medications (Trade) Dose Ordered Sig/Torsten Route PRN Reason Start Time Stop Time Status Last Admin Dose Admin Acetaminophen (Tylenol) 650 mg Q4H PRN ORAL fever 07/12/17 15:00 08/06/17 14:59 07/22/17 03:54 Amiodarone HCl (Cordarone) 200 mg DAILY GT 07/18/17 09:00 08/17/17 08:59 07/22/17 08:46 Chlorhexidine Gluconate (Mariah-Hex 2%) 1 applic DAILY@1999 TOPIC 07/12/17 20:00 08/07/17 19:59 07/21/17 21:24 Colistimethate Sodium (Colistin *inhalation use only*) 75 mg Q12HR@10,22 INH 07/12/17 22:00 07/23/17 23:59 07/22/17 09:32 Colistimethate Sodium (Colistin) 75 mg EVERY 12 HOURS IVP 07/13/17 21:00 07/23/17 23:59 07/22/17 10:18 Dextrose 1,000 ml @ 50 mls/hr Q20H IV 07/22/17 10:00 08/21/17 09:59 07/22/17 10:24 Diltiazem HCl (Cardizem) 15 mg Q1H PRN IVP HR > 120 BPM 07/12/17 14:30 08/10/17 11:29 Heparin Sodium (Porcine) (Heparin 5000 units/ml) 5,000 units EVERY 12 HOURS SUBQ 07/12/17 21:00 08/06/17 20:59 07/22/17 08:49 Lansoprazole (Prevacid) 30 mg DAILY GT 07/22/17 09:00 08/21/17 08:59 07/22/17 08:46 Ondansetron HCl (Zofran) 4 mg Q6H PRN IVP Nausea & Vomiting 07/12/17 15:30 08/06/17 15:29 Polyethylene Glycol (Miralax) 17 gm DAILYPRN PRN GT Constipation 07/16/17 13:30 08/06/17 15:29 Tigecycline 50 mg/ Dextrose 55 ml @ 110 mls/hr EVERY 12 HOURS IVPB 07/15/17 21:00 07/22/17 20:59 07/22/17 08:47 COLBY BRICENO M.D. Jul 22, 2017 15:21
[2017-07-22 16:00] VITALS: BP 141/71
[2017-07-22 20:00] VITALS: BP 154/78
[2017-07-22] MEDS: Dyna-Hex 2% Top Sol 2oz TOPIC SCH (20:06)
[2017-07-23] VITALS: BP 148/68
[2017-07-23 04:00] VITALS: BP 120/65
[2017-07-23 06:13] LABS: BASOPHILS % (AUTO) 0.8 % (0.0-2.0); EOSINOPHILS % (AUTO) 6.9 % (0.0-3.0); LYMPHOCYTES % (AUTO) 24.9 % (20.0-45.0); MEAN CORPUSCULAR HEMOGLOBIN 29.8 PG (27.0-31.0); MEAN CORPUSCULAR HGB CONC 31.5 G/DL (32.0-36.0); MEAN CORPUSCULAR VOLUME 95 FL (80-99); MEAN PLATELET VOLUME 6.6 FL (6.5-10.1); MONOCYTES % (AUTO) 6.1 % (1.0-10.0); NEUTROPHILS % (AUTO) 61.3 % (45.0-75.0); PLATELET COUNT 438 K/UL (150-450); RED BLOOD COUNT 3.24 M/UL (4.20-5.40); RED CELL DISTRIBUTION WIDTH 13.7 % (11.6-14.8); WHITE BLOOD COUNT 9.4 K/UL (4.8-10.8)
[2017-07-23 06:39] LABS: ANION GAP 5 mmol/L (5-15); CARBON DIOXIDE 31 MMOL/L (21-32); CHLORIDE 113 MMOL/L (98-107); CREATININE 0.9 MG/DL (0.55-1.30); POTASSIUM 3.3 MMOL/L (3.5-5.1); SODIUM 149 MMOL/L (136-145)
[2017-07-23 08:00] VITALS: BP 149/80
[2017-07-23] MEDS: Amiodarone 200mg tab GT SCH (09:48)
[2017-07-23] MEDS: Heparin 5000 units/ml inj SUBQ SCH ×2 (09:50→21:40)
--- NOTE | 2017-07-23 11:45 | Pulmonology Progress Note ---
Assessment/Plan Problems: (1) Acute and chronic respiratory failure (2) Pneumonia (3) Anemia (4) Fever (5) Seizure disorder (6) HTN (hypertension) (7) Tracheostomy care Respiratory: monitor respiratory rate, adjust FIO2, CXR Cardiac: continue to monitor HR/BP Renal: F/U I&O, keep IV fluid, check electrolytes Infectious Disease: check cultures Gastrointestinal: continue feedings/current rate Endocrine: monitor blood sugar, check TSH Neurologic: PRN Ativan Affect: PRN ativan Prophylaxis: Heparin Notes Reviewed: block feeder, 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, consultants Subjective ROS Limited/Unobtainable: No Constitutional: Reports: no symptoms HEENT: Repors: no symptoms Respiratory: Reports: no symptoms Allergies: Coded Allergies: ASPIRIN (Verified Allergy, Unknown, 07/07/17) Objective Last 24 Hour Vital Signs Date Time Temp Pulse Resp B/P (MAP) Pulse Ox O2 Delivery O2 Flow Rate FiO2 07/23/17 11:08 65 16 30 07/23/17 09:10 58 16 30 07/23/17 08:00 62 07/23/17 08:00 30 07/23/17 08:00 97.7 61 16 149/80 100 Mechanical Ventilator 30 74 07/23/17 07:03 55 16 30 07/23/17 05:24 58 16 30 07/23/17 04:00 98.1 88 18 120/65 99 Mechanical Ventilator 30 74 07/23/17 04:00 30 07/23/17 03:50 70 07/23/17 03:15 72 16 30 07/23/17 01:15 71 16 30 07/23/17 00:00 98.1 68 18 148/68 100 Mechanical Ventilator 30 65 07/22/17 23:53 68 07/22/17 23:28 70 16 30 07/22/17 21:34 74 16 30 07/22/17 20:00 30 07/22/17 20:00 97.9 81 20 154/78 99 Mechanical Ventilator 30 79 07/22/17 19:43 73 07/22/17 19:07 78 16 30 07/22/17 17:17 74 16 30 07/22/17 16:00 30 07/22/17 16:00 64 07/22/17 16:00 98.4 74 18 141/71 100 Mechanical Ventilator 30 72 07/22/17 14:49 77 16 30 11/25/17 12:42 69 16 30 07/22/17 12:00 30 07/22/17 12:00 97.9 80 20 140/65 100 Mechanical Ventilator 30 72 07/22/17 11:49 67 Intake and Output 07/23/17 07/24/17 19:00 07:00 # Bowel Movements 1 General Appearance: WD/WN, no acute distress HEENT: atraumatic, mucous membranes moist Respiratory/Chest: chest wall non-tender, lungs clear, chest wall tender Cardiovascular: normal peripheral pulses, regularly irregular, no JVD Abdomen: normal bowel sounds, soft, non tender, no organomegaly, no scars Extremities: no cyanosis, no clubbing Skin: no rash, no ulcers Laboratory Tests 07/23/17 05:00: White Blood Count 9.4, Red Blood Count 3.24L, Hemoglobin 9.7L, Hematocrit 30.7L , Mean Corpuscular Volume 95, Mean Corpuscular Hemoglobin 29.8, Mean Corpuscular Hemoglobin Concent 31.5L, Red Cell Distribution Width 13.7, Platelet Count 438, Mean Platelet Volume 6.6, Neutrophils (%) (Auto) 61.3, Lymphocytes (%) (Auto) 24.9, Monocytes (%) (Auto) 6.1, Eosinophils (%) (Auto) 6.9H, Basophils (%) (Auto) 0.8, Sodium Level 149H, Potassium Level 3.3L, Chloride Level 113H, Carbon Dioxide Level 31, Anion Gap 5, Blood Urea Nitrogen 22H, Creatinine 0.9, Estimat Glomerular Filtration Rate , Glucose Level 92, Calcium Level 9.0 Current Medications Medications (Trade) Dose Ordered Sig/Torsten Route PRN Reason Start Time Stop Time Status Last Admin Dose Admin Acetaminophen (Tylenol) 650 mg Q4H PRN ORAL fever 07/12/17 15:00 08/06/17 14:59 07/22/17 03:54 Amiodarone HCl (Cordarone) 200 mg DAILY GT 07/18/17 09:00 08/17/17 08:59 07/23/17 09:48 Chlorhexidine Gluconate (Mariah-Hex 2%) 1 applic DAILY@2000 TOPIC 07/12/17 20:00 08/07/17 19:59 07/22/17 20:06 Dextrose 1,000 ml @ 50 mls/hr Q20H IV 07/22/17 10:00 08/21/17 09:59 07/23/17 06:18 Diltiazem HCl (Cardizem) 15 mg Q1H PRN IVP HR > 120 BPM 07/12/17 14:30 08/10/17 11:29 Heparin Sodium (Porcine) (Heparin 5000 units/ml) 5,000 units EVERY 12 HOURS SUBQ 07/12/17 21:00 08/06/17 20:59 07/23/17 09:50 Lansoprazole (Prevacid) 30 mg DAILY GT 07/22/17 09:00 08/21/17 08:59 07/23/17 09:48 Ondansetron HCl (Zofran) 4 mg Q6H PRN IVP Nausea & Vomiting 07/12/17 15:30 08/06/17 15:29 Polyethylene Glycol (Miralax) 17 gm DAILYPRN PRN GT Constipation 07/16/17 13:30 08/06/17 15:29 COBY LEBLANC Jul 23, 2017 11:45
[2017-07-23 12:00] VITALS: BP 151/76
--- NOTE | 2017-07-23 14:46 | Internal Med Progress Note ---
Subjective Date of Service: Jul 23, 2017 Physician Name Tomi Moreau Attending Physician Ho Mcghee MD Current Medications Medications (Trade) Dose Ordered Sig/Torsten Route PRN Reason Start Time Stop Time Status Last Admin Dose Admin Acetaminophen (Tylenol) 650 mg Q4H PRN ORAL fever 07/12/17 15:00 08/06/17 14:59 07/22/17 03:54 Amiodarone HCl (Cordarone) 200 mg DAILY GT 07/18/17 09:00 08/17/17 08:59 07/23/17 09:48 Chlorhexidine Gluconate (Mariah-Hex 2%) 1 applic DAILY@2000 TOPIC 07/12/17 20:00 08/07/17 19:59 07/22/17 20:06 Dextrose 1,000 ml @ 50 mls/hr Q20H IV 07/22/17 10:00 08/21/17 09:59 07/23/17 06:18 Diltiazem HCl (Cardizem) 15 mg Q1H PRN IVP HR > 120 BPM 07/12/17 14:30 08/10/17 11:29 Heparin Sodium (Porcine) (Heparin 5000 units/ml) 5,000 units EVERY 12 HOURS SUBQ 07/12/17 21:00 08/06/17 20:59 07/23/17 09:50 Lansoprazole (Prevacid) 30 mg DAILY GT 07/22/17 09:00 08/21/17 08:59 07/23/17 09:48 Ondansetron HCl (Zofran) 4 mg Q6H PRN IVP Nausea & Vomiting 07/12/17 15:30 08/06/17 15:29 Polyethylene Glycol (Miralax) 17 gm DAILYPRN PRN GT Constipation 07/16/17 13:30 08/06/17 15:29 Allergies: Coded Allergies: ASPIRIN (Verified Allergy, Unknown, 07/07/17) ROS Limited/Unobtainable: Yes Subjective 82 YO F admitted with hypotension and pneumonia. MARTHA. Intubated and sedated. Cover for Int Med-dr Mcghee. Not accepted at [facility] fac-await placement Objective Last Vital Signs Date Time Temp Pulse Resp B/P (MAP) Pulse Ox O2 Delivery O2 Flow Rate FiO2 07/23/17 13:13 63 16 30 07/23/17 12:00 97.9 151/76 99 Mechanical Ventilator 07/22/17 09:38 15.0 Laboratory Tests Test 07/23/17 05:00 White Blood Count 9.4 K/UL (4.8-10.8) Red Blood Count 3.24 M/UL (4.20-5.40) L Hemoglobin 9.7 G/DL (12.0-16.0) L Hematocrit 30.7 % (37.0-47.0) L Mean Corpuscular Volume 95 FL (80-99) Mean Corpuscular Hemoglobin 29.8 PG (27.0-31.0) Mean Corpuscular Hemoglobin Concent 31.5 G/DL (32.0-36.0) L Red Cell Distribution Width 13.7 % (11.6-14.8) Platelet Count 438 K/UL (150-450) Mean Platelet Volume 6.6 FL (6.5-10.1) Neutrophils (%) (Auto) 61.3 % (45.0-75.0) Lymphocytes (%) (Auto) 24.9 % (20.0-45.0) Monocytes (%) (Auto) 6.1 % (1.0-10.0) Eosinophils (%) (Auto) 6.9 % (0.0-3.0) H Basophils (%) (Auto) 0.8 % (0.0-2.0) Sodium Level 149 MMOL/L (136-145) H Potassium Level 3.3 MMOL/L (3.5-5.1) L Chloride Level 113 MMOL/L (98-107) H Carbon Dioxide Level 31 MMOL/L (21-32) Anion Gap 5 mmol/L (5-15) Blood Urea Nitrogen 22 mg/dL (7-18) H Creatinine 0.9 MG/DL (0.55-1.30) Estimat Glomerular Filtration Rate mL/min (>60) Glucose Level 92 MG/DL (74-106) Calcium Level 9.0 MG/DL (8.5-10.1) Intake and Output 07/23/17 07/24/17 19:00 07:00 Intake Total 630 ml Balance 630 ml IV Total 300 ml Tube Feeding 330 ml # Bowel Movements 2 Objective General Appearance: WD/WN, moderate distress, lethargic EENT: PERRL/EOMI, normal ENT inspection Neck: trach; non-tender, normal alignment, supple, other - tracheostomy Cardiovascular: normal peripheral pulses, normal rate, regular rhythm, no gallop/murmur, no JVD Respiratory/Chest: Mechanical vent; chest wall non-tender, crackles/rales, rhonchi - bilaterally, expiratory wheezing Abdomen: normal bowel sounds, non tender, soft, no organomegaly, no mass Extremities: non-tender Neurologic: can slider II-XII grossly normal Skin: normal pigmentation, warm/dry Assessment/Plan Problem List: (1) Fever (2) Hypotension Assessment & Plan: Due to Sepsis-Cont antibiotics per ID (3) Sepsis Assessment & Plan: Await cultures. Cont colistin, meropenem and tigecycline per ID. (4) Respiratory failure Assessment & Plan: Due to pneumonia. Cont mech vent-see pulmonary note. (5) Tracheostomy care (6) HTN (hypertension) Assessment & Plan: Current hypotensive. (7) Seizure disorder (8) Dysphagia Assessment & Plan: G-tube feeds per GI (9) Pneumonia Assessment & Plan: A. Baumanii. Continue meropenem, tigecycline and colistin per ID (10) Septic shock (11) Anemia Assessment & Plan: Worsening; S/P transfusion 2 unit PRBC 07/09/17 (12) Hypernatremia Assessment & Plan: Change IV fluid to 1/2 NS Assessment/Plan See social work note; RE: Public guardian decision regarding comfort measures. Patient now DNR. Not accepted at [facility]. TOMI MOREAU Jul 23, 2017 14:46
[2017-07-23] MEDS ORDERED: KCl 10% 40mEq/30ml liquid PEG ONE (15:00)
[2017-07-23 16:00] VITALS: BP 136/77
[2017-07-23 20:00] VITALS: BP 142/75
[2017-07-23] MEDS: Dyna-Hex 2% Top Sol 2oz TOPIC SCH (21:38)
[2017-07-24] VITALS: BP 143/81
[2017-07-24 04:00] VITALS: BP 128/65
[2017-07-24 05:03] LABS: BASOPHILS % (AUTO) 0.8 % (0.0-2.0); EOSINOPHILS % (AUTO) 6.5 % (0.0-3.0); MEAN CORPUSCULAR HEMOGLOBIN 30.3 PG (27.0-31.0); MEAN CORPUSCULAR HGB CONC 31.9 G/DL (32.0-36.0); MEAN CORPUSCULAR VOLUME 95 FL (80-99); MEAN PLATELET VOLUME 6.5 FL (6.5-10.1); NEUTROPHILS % (AUTO) 56.7 % (45.0-75.0); PLATELET COUNT 424 K/UL (150-450); RED BLOOD COUNT 3.43 M/UL (4.20-5.40); RED CELL DISTRIBUTION WIDTH 14.1 % (11.6-14.8); WHITE BLOOD COUNT 9.6 K/UL (4.8-10.8)
[2017-07-24 05:32] LABS: ANION GAP 5 mmol/L (5-15); CALCIUM 9.3 MG/DL (8.5-10.1); CARBON DIOXIDE 29 MMOL/L (21-32); CHLORIDE 111 MMOL/L (98-107); POTASSIUM 3.7 MMOL/L (3.5-5.1); SODIUM 145 MMOL/L (136-145)
[2017-07-24 08:00] VITALS: BP 135/69
[2017-07-24] MEDS: Amiodarone 200mg tab GT SCH (08:52)
[2017-07-24] MEDS: Heparin 5000 units/ml inj SUBQ SCH (08:54)
--- NOTE | 2017-07-24 10:19 | Diagnostic Imaging Report ---
APPROVED REPORT CPT Code: 38311 Present Symptoms Shortness of breath RIGHT LEG: Venous imaging reveals recanalized chronic thrombus in the common femoral, superficial femoral and popliteal veins. The common femoral, superficial femoral and popliteal veins are patent. Imaging also reveals patency of the calf veins. The greater saphenous vein is also within normal limits. Doppler indicates normal spontaneous flow within these segments. LEFT LEG: Venous imaging reveals a patent deep venous system. There is no evidence of thrombus within the femoral, popliteal or tibial segments. The greater saphenous vein is also within normal limits. Doppler indicates normal spontaneous flow within these segments. No evidence of acute DVT. Dr. Martines was informed of abnormal results at 18:16 hrs.
--- NOTE | 2017-07-24 11:08 | Pulmonology Progress Note ---
Assessment/Plan Problems: (1) Acute and chronic respiratory failure (2) Pneumonia (3) Anemia (4) Fever (5) Seizure disorder (6) HTN (hypertension) (7) Tracheostomy care Respiratory: monitor respiratory rate, adjust FIO2, CXR Cardiac: continue to monitor HR/BP Renal: F/U I&O Infectious Disease: check cultures, continue antibiotics Gastrointestinal: continue feedings/current rate Endocrine: monitor blood sugar, check TSH, check HgA1C Neurologic: PRN Ativan, PRN Morphine Prophylaxis: Protonix, Heparin Time Spent (Minutes): 40 Notes Reviewed: cardio Discussed with: nurses, consultants, case specialist Subjective ROS Limited/Unobtainable: No Constitutional: Reports: no symptoms Allergies: Coded Allergies: ASPIRIN (Verified Allergy, Unknown, 07/07/17) Objective Last 24 Hour Vital Signs Date Time Temp Pulse Resp B/P (MAP) Pulse Ox O2 Delivery O2 Flow Rate FiO2 07/24/17 08:37 55 20 30 07/24/17 08:00 30 07/24/17 08:00 50 07/24/17 08:00 97.7 65 20 135/69 99 Mechanical Ventilator 30 65 07/24/17 07:09 54 16 30 07/24/17 04:52 50 16 30 07/24/17 04:00 30 07/24/17 04:00 97.7 79 18 128/65 98 Mechanical Ventilator 30 77 07/24/17 03:54 77 07/24/17 03:13 53 16 30 07/24/17 01:01 62 16 30 07/24/17 00:00 97.5 90 20 143/81 100 Mechanical Ventilator 30 82 07/24/17 00:00 30 07/23/17 23:49 91 07/23/17 23:27 73 16 30 07/23/17 20:37 65 16 30 07/23/17 20:00 97.8 75 20 142/75 100 Mechanical Ventilator 30 74 07/23/17 20:00 30 07/23/17 19:27 77 18 30 07/23/17 19:24 59 07/23/17 17:29 72 16 30 07/23/17 16:00 98.2 61 16 136/77 100 Mechanical Ventilator 30 74 07/23/17 16:00 30 07/23/17 16:00 66 07/23/17 15:24 58 16 30 07/23/17 13:13 63 16 30 07/23/17 12:00 30 07/23/17 12:00 57 07/23/17 12:00 97.9 61 16 151/76 99 Mechanical Ventilator 30 74 Intake and Output 07/24/17 07/25/17 19:00 07:00 Intake Total 165 ml Balance 165 ml Tube Feeding 165 ml General Appearance: WD/WN HEENT: normocephalic, anicteric Respiratory/Chest: chest wall non-tender, lungs clear Breasts: no masses Cardiovascular: normal rate, no JVD Abdomen: normal bowel sounds, soft, non tender Genitourinary: normal external genitalia Extremities: no clubbing Skin: no rash Neurologic/Psychiatric: normal mood/affect Lymphatic: no groin adenopathy Laboratory Tests 07/24/17 04:00: White Blood Count 9.6, Red Blood Count 3.43L, Hemoglobin 10.4L, Hematocrit 32.6L , Mean Corpuscular Volume 95, Mean Corpuscular Hemoglobin 30.3, Mean Corpuscular Hemoglobin Concent 31.9L, Red Cell Distribution Width 14.1, Platelet Count 424, Mean Platelet Volume 6.5, Neutrophils (%) (Auto) 56.7, Lymphocytes (%) (Auto) 28.0, Monocytes (%) (Auto) 8.0, Eosinophils (%) (Auto) 6.5H, Basophils (%) (Auto) 0.8, Sodium Level 145, Potassium Level 3.7, Chloride Level 111H, Carbon Dioxide Level 29, Anion Gap 5, Blood Urea Nitrogen 17, Creatinine 1.0, Estimat Glomerular Filtration Rate , Glucose Level 91, Calcium Level 9.3 Current Medications Medications (Trade) Dose Ordered Sig/Torsten Route PRN Reason Start Time Stop Time Status Last Admin Dose Admin Acetaminophen (Tylenol) 650 mg Q4H PRN ORAL fever 07/12/17 15:00 08/06/17 14:59 07/22/17 03:54 Amiodarone HCl (Cordarone) 200 mg DAILY GT 07/18/17 09:00 08/17/17 08:59 07/24/17 08:52 Chlorhexidine Gluconate (Mariah-Hex 2%) 1 applic DAILY@2000 TOPIC 07/12/17 20:00 08/07/17 19:59 07/23/17 21:38 Dextrose 1,000 ml @ 50 mls/hr Q20H IV 07/22/17 10:00 08/21/17 09:59 07/24/17 02:36 Diltiazem HCl (Cardizem) 15 mg Q1H PRN IVP HR > 120 BPM 07/12/17 14:30 08/10/17 11:29 Heparin Sodium (Porcine) (Heparin 5000 units/ml) 5,000 units EVERY 12 HOURS SUBQ 07/12/17 21:00 08/06/17 20:59 07/24/17 08:54 Lansoprazole (Prevacid) 30 mg DAILY GT 07/22/17 09:00 08/21/17 08:59 07/24/17 08:52 Ondansetron HCl (Zofran) 4 mg Q6H PRN IVP Nausea & Vomiting 07/12/17 15:30 08/06/17 15:29 Polyethylene Glycol (Miralax) 17 gm DAILYPRN PRN GT Constipation 07/16/17 13:30 08/06/17 15:29 COBY LEBLANC Jul 24, 2017 11:08
[2017-07-24 12:00] VITALS: BP 122/60
--- NOTE | 2017-07-24 12:10 | Internal Med Progress Note ---
Subjective Physician Name SimTomi nicole Attending Physician Ho Mcghee MD Current Medications Medications (Trade) Dose Ordered Sig/Torsten Route PRN Reason Start Time Stop Time Status Last Admin Dose Admin Acetaminophen (Tylenol) 650 mg Q4H PRN ORAL fever 07/12/17 15:00 08/06/17 14:59 07/22/17 03:54 Amiodarone HCl (Cordarone) 200 mg DAILY GT 07/18/17 09:00 08/17/17 08:59 07/24/17 08:52 Chlorhexidine Gluconate (Mariah-Hex 2%) 1 applic DAILY@2000 TOPIC 07/12/17 20:00 08/07/17 19:59 07/23/17 21:38 Dextrose 1,000 ml @ 50 mls/hr Q20H IV 07/22/17 10:00 08/21/17 09:59 07/24/17 02:36 Diltiazem HCl (Cardizem) 15 mg Q1H PRN IVP HR > 120 BPM 07/12/17 14:30 08/10/17 11:29 Heparin Sodium (Porcine) (Heparin 5000 units/ml) 5,000 units EVERY 12 HOURS SUBQ 07/12/17 21:00 08/06/17 20:59 07/24/17 08:54 Lansoprazole (Prevacid) 30 mg DAILY GT 07/22/17 09:00 08/21/17 08:59 07/24/17 08:52 Ondansetron HCl (Zofran) 4 mg Q6H PRN IVP Nausea & Vomiting 07/12/17 15:30 08/06/17 15:29 Polyethylene Glycol (Miralax) 17 gm DAILYPRN PRN GT Constipation 07/16/17 13:30 08/06/17 15:29 Allergies: Coded Allergies: ASPIRIN (Verified Allergy, Unknown, 07/07/17) Subjective 82 YO F admitted with hypotension and pneumonia. [facility]. Intubated and sedated. Cover for Int Med-dr Mcghee. Await acceptance at [facility] nursing [facility] Objective Last Vital Signs Date Time Temp Pulse Resp B/P (MAP) Pulse Ox O2 Delivery O2 Flow Rate FiO2 07/24/17 11:17 51 16 30 07/24/17 08:00 97.7 135/69 99 Mechanical Ventilator 07/22/17 09:38 15.0 Laboratory Tests Test 07/24/17 04:00 White Blood Count 9.6 K/UL (4.8-10.8) Red Blood Count 3.43 M/UL (4.20-5.40) L Hemoglobin 10.4 G/DL (12.0-16.0) L Hematocrit 32.6 % (37.0-47.0) L Mean Corpuscular Volume 95 FL (80-99) Mean Corpuscular Hemoglobin 30.3 PG (27.0-31.0) Mean Corpuscular Hemoglobin Concent 31.9 G/DL (32.0-36.0) L Red Cell Distribution Width 14.1 % (11.6-14.8) Platelet Count 424 K/UL (150-450) Mean Platelet Volume 6.5 FL (6.5-10.1) Neutrophils (%) (Auto) 56.7 % (45.0-75.0) Lymphocytes (%) (Auto) 28.0 % (20.0-45.0) Monocytes (%) (Auto) 8.0 % (1.0-10.0) Eosinophils (%) (Auto) 6.5 % (0.0-3.0) H Basophils (%) (Auto) 0.8 % (0.0-2.0) Sodium Level 145 MMOL/L (136-145) Potassium Level 3.7 MMOL/L (3.5-5.1) Chloride Level 111 MMOL/L (98-107) H Carbon Dioxide Level 29 MMOL/L (21-32) Anion Gap 5 mmol/L (5-15) Blood Urea Nitrogen 17 mg/dL (7-18) Creatinine 1.0 MG/DL (0.55-1.30) Estimat Glomerular Filtration Rate mL/min (>60) Glucose Level 91 MG/DL (74-106) Calcium Level 9.3 MG/DL (8.5-10.1) Intake and Output 07/24/17 07/25/17 19:00 07:00 Intake Total 630 ml Balance 630 ml Intake Free Water 100 ml IV Total 200 ml Tube Feeding 330 ml Objective General Appearance: WD/WN, moderate distress, lethargic EENT: PERRL/EOMI, normal ENT inspection Neck: trach; non-tender, normal alignment, supple, other - tracheostomy Cardiovascular: normal peripheral pulses, normal rate, regular rhythm, no gallop/murmur, no JVD Respiratory/Chest: Mechanical vent; chest wall non-tender, crackles/rales, rhonchi - bilaterally, expiratory wheezing Abdomen: normal bowel sounds, non tender, soft, no organomegaly, no mass Extremities: non-tender Neurologic: bpm solution architect II-XII grossly normal Skin: normal pigmentation, warm/dry Assessment/Plan Problem List: (1) Fever (2) Hypotension Assessment & Plan: Due to Sepsis-Cont antibiotics per ID (3) Sepsis Assessment & Plan: Await cultures. Cont colistin, meropenem and tigecycline per ID. (4) Respiratory failure Assessment & Plan: Due to pneumonia. Cont mech vent-see pulmonary note. (5) Tracheostomy care (6) HTN (hypertension) Assessment & Plan: Current hypotensive. (7) Seizure disorder (8) Dysphagia Assessment & Plan: G-tube feeds per GI (9) Pneumonia Assessment & Plan: A. Baumanii. Continue meropenem, tigecycline and colistin per ID (10) Septic shock (11) Anemia Assessment & Plan: Worsening; S/P transfusion 2 unit PRBC 07/09/17 (12) Hypernatremia Assessment & Plan: Change IV fluid to 1/2 NS Status: stable Assessment/Plan See social work note; RE: Public guardian decision regarding comfort measures. Patient now DNR. Await acceptance at [facility]. TOMI SIM Jul 24, 2017 12:10
--- NOTE | 2017-07-24 12:28 | Infectious Diseases Prog Note ---
Assessment/Plan Assessment/Plan Septic shock, SP PNA Scx: MDR- ACB (S. Colistin, Tygecicline, Minocycline, Polymixin B); SP Rx -CXR 07/17: Improved left pleural effusion, slightly improved left-sided pulmonaryparenchymal disease, over 5 days. -CXR: Interstitial edema, vascular prominence, borderline cardiomegaly and hazy basilar opacities probably pleural effusions demonstrated. 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, VRE colonized No ABX allergies Full Code Plan: Continue to monitor pt off of AB Rx ( 07/22 SP INH/IV Colistin #13, Tygacil #7 ( 07/21 SP Meropenem d# 14/14 )( 07/13 SP IV Vancomycin # 7 ) ( 07/08 SP Amikacin d# 2 ) -Monitor CBC/BMP, temperatures; Trend WBC; reculture if worsening of WBC or recurrent fever -Monitor CXR -trach/peg care Subjective Allergies: Coded Allergies: ASPIRIN (Verified Allergy, Unknown, 07/07/17) Subjective afebrile in 48hrs leukocytosis resolved now off abx Objective Vital Signs Last 24 Hour Vital Signs Date Time Temp Pulse Resp B/P (MAP) Pulse Ox O2 Delivery O2 Flow Rate FiO2 07/24/17 11:17 51 16 30 07/24/17 08:37 55 20 30 07/24/17 08:00 30 07/24/17 08:00 60 07/24/17 08:00 50 07/24/17 08:00 97.7 65 20 135/69 99 Mechanical Ventilator 30 65 07/24/17 07:09 54 16 30 07/24/17 04:52 50 16 30 07/24/17 04:00 30 07/24/17 04:00 97.7 79 18 128/65 98 Mechanical Ventilator 30 77 07/24/17 03:54 77 07/24/17 03:13 53 16 30 07/24/17 01:01 62 16 30 07/24/17 00:00 97.5 90 20 143/81 100 Mechanical Ventilator 30 82 07/24/17 00:00 30 11/26/17 23:49 91 07/23/17 23:27 73 16 30 07/23/17 20:37 65 16 30 07/23/17 20:00 97.8 75 20 142/75 100 Mechanical Ventilator 30 74 07/23/17 20:00 30 07/23/17 19:27 77 18 30 07/23/17 19:24 59 07/23/17 17:29 72 16 30 07/23/17 16:00 98.2 61 16 136/77 100 Mechanical Ventilator 30 74 07/23/17 16:00 30 07/23/17 16:00 66 07/23/17 15:24 58 16 30 07/23/17 13:13 63 16 30 Height (Feet): 5 Height (Inches): 4.00 Weight (Pounds): 155 Objective HEENT: anicteric Respiratory/Chest: no respiratory distress Cardiovascular: regular rhythm Abdomen: no mass Laboratory Tests Test 07/24/17 04:00 White Blood Count 9.6 K/UL (4.8-10.8) Red Blood Count 3.43 M/UL (4.20-5.40) L Hemoglobin 10.4 G/DL (12.0-16.0) L Hematocrit 32.6 % (37.0-47.0) L Mean Corpuscular Volume 95 FL (80-99) Mean Corpuscular Hemoglobin 30.3 PG (27.0-31.0) Mean Corpuscular Hemoglobin Concent 31.9 G/DL (32.0-36.0) L Red Cell Distribution Width 14.1 % (11.6-14.8) Platelet Count 424 K/UL (150-450) Mean Platelet Volume 6.5 FL (6.5-10.1) Neutrophils (%) (Auto) 56.7 % (45.0-75.0) Lymphocytes (%) (Auto) 28.0 % (20.0-45.0) Monocytes (%) (Auto) 8.0 % (1.0-10.0) Eosinophils (%) (Auto) 6.5 % (0.0-3.0) H Basophils (%) (Auto) 0.8 % (0.0-2.0) Sodium Level 145 MMOL/L (136-145) Potassium Level 3.7 MMOL/L (3.5-5.1) Chloride Level 111 MMOL/L (98-107) H Carbon Dioxide Level 29 MMOL/L (21-32) Anion Gap 5 mmol/L (5-15) Blood Urea Nitrogen 17 mg/dL (7-18) Creatinine 1.0 MG/DL (0.55-1.30) Estimat Glomerular Filtration Rate mL/min (>60) Glucose Level 91 MG/DL (74-106) Calcium Level 9.3 MG/DL (8.5-10.1) Current Medications Medications (Trade) Dose Ordered Sig/Torsten Route PRN Reason Start Time Stop Time Status Last Admin Dose Admin Acetaminophen (Tylenol) 650 mg Q4H PRN ORAL fever 07/12/17 15:00 08/06/17 14:59 07/22/17 03:54 Amiodarone HCl (Cordarone) 200 mg DAILY GT 07/18/17 09:00 08/17/17 08:59 07/24/17 08:52 Chlorhexidine Gluconate (Mariah-Hex 2%) 1 applic DAILY@2000 TOPIC 07/12/17 20:00 08/07/17 19:59 07/23/17 21:38 Dextrose 1,000 ml @ 50 mls/hr Q20H IV 07/22/17 10:00 08/21/17 09:59 07/24/17 02:36 Diltiazem HCl (Cardizem) 15 mg Q1H PRN IVP HR > 120 BPM 07/12/17 14:30 08/10/17 11:29 Heparin Sodium (Porcine) (Heparin 5000 units/ml) 5,000 units EVERY 12 HOURS SUBQ 07/12/17 21:00 08/06/17 20:59 07/24/17 08:54 Lansoprazole (Prevacid) 30 mg DAILY GT 07/22/17 09:00 08/21/17 08:59 07/24/17 08:52 Ondansetron HCl (Zofran) 4 mg Q6H PRN IVP Nausea & Vomiting 07/12/17 15:30 08/06/17 15:29 Polyethylene Glycol (Miralax) 17 gm DAILYPRN PRN GT Constipation 07/16/17 13:30 08/06/17 15:29 Yane Umana M.D. Jul 24, 2017 12:28
[2017-07-24 15:47] VITALS: BP 128/51
--- NOTE | 2017-07-26 02:15 | Discharge Summary 2 SIG ---
DATE OF ADMISSION: 07/07/2017 DATE OF DISCHARGE: 07/24/2017 REASON FOR ADMISSION: 82-year-old female with a history of ventilator-dependent respiratory failure, dysphagia, seizure disorder, chronic DVT of right lower extremity, hypertension, and encephalopathy, presented to the emergency department due to the low blood pressure and fever. The patient was recently started on antibiotic at the subacute facility for pneumonia. The patient was on IV Zosyn. Upon presentation in the emergency department, blood pressure - 61/38, pulse - 118, and respirations -24. WBC- 21.1, hemoglobin -8, hematocrit- 26.4. BUN -33 and creatinine- 1.1. Troponin slightly elevated -0.062. EKG revealed sinus tachycardia. No acute ischemic changes. Chest x-ray revealed likely bilateral pleural effusion and congestive heart failure/ interstitial edema. Central line was emergently placed. The patient was started on pressors. Septic workup initiated . The patient was admitted for sepsis with septic shock and pneumonia as well as acute kidney injury and anemia to ICU for further management. HOSPITAL STAY: The patient was admitted initially in intensive care unit. The patient was on pressors to keep systolic blood pressure above 90. Ventilator support was provided. Pulmonary toile along with tracheostomy care were provided. Baseline ABG was stable on current settings. Patient was followed up with serial ABGs. The patient was started on empiric antibiotic. ID followed. Hemodynamics were closely monitored. Eventually, the patient was able to be weaned from pressor and transferred to [facility]. Urine culture was negative. Blood culture initially / with Staph, coag-negative, likely contaminant as per ID specialist since repeated blood cultures were negative. Sputum culture showed evidence of Acinetobacter baumannii complex, multidrug resistant. The patient was on antibiotic as per ID management. Prior to discharge, the patient status post antibiotic treatment. Medical File Clerk closely followed in terms of ventilator support with serial chest x-ray and management of pulmonary status. Prior to discharge, no leukocytosis. Last chest x-ray revealed improvement in congestion. Venous duplex of bilateral lower extremities revealed no evidence of acute DVT, but showed recanalized chronic thrombus in common femoral, superficial femoral, and popliteal vein of right lower extremity. Echocardiogram revealed ejection fraction of 60% to 65%. No evidence of left ventricular hypertrophy and right ventricular systolic pressure of 50 consistent with moderate pulmonary hypertension. The patient had evidence of atrial fibrillation on telemetry. Cardiology consult was requested. The patient was followed up with serial EKG. Amiodarone was added to existing regimen. No further evidence of atrial fibrillation. Telemetry showed sinus rhythm. Farm Service Consultant continued with amiodarone. heart rate was controlled. Blood pressure was stable. No need for antihypertensive medication. DVT prophylaxis provided. Antiemetic provided as needed along with GI prophylaxis. Strict aspiration precautions were maintained. The patient was able to tolerate tube feeding. Bowel regimen instituted. The patient required transfusion of packed red blood cells secondary to acute anemia. The patient received total of 3 units of packed red blood cells for hemoglobin -7.7 and hematocrit -24.7. Stool for OB was negative. Prior to discharge, stable hemoglobin and hematocrit, hemoglobin -10.4 and hematocrit- 32.6. The patient was on gentle IV fluids. Renal parameters and electrolytes were closely monitored. Acute kidney injury likely secondary to septic shock, resolved. Renal parameters down to normal. BUN -17 and creatinine -1.0. Electrolytes were replaced as needed. Hypokalemia and hypomagnesemia were corrected. Hypernatremia resolved likely secondary to dehydration. No seizure activity while in the hospital. Depakote was continued. Bioethics Committee was held on 07/17/2017. Per Bioethics Committee decision, this is an 82-year-old female, [facility]dc resident with dementia, schizophrenia, seizure disorder, totally dependent on ventilator and tube feeding, opened eyes occasionally, but otehrwise remained unresponsive. All treating physicians believed that further aggressive care would be futile. She had a serious life-threatening illness, which combined with baseline medical circumstances, likely would cause vital functions to fail. Per Bioethics Committee decision, it was appropriate to make the patient DNR status with recommendation to focus further treatment on comfort care. The patient subsequently was made DNR on 07/19/2017. The patient was stable for discharge back to subacute intermediate facility. FINAL DIAGNOSES: 1. Acute on chronic respiratory failure, resolved. 2. Ventilator-dependent respiratory failure/tracheostomy status. 3. Sepsis with septic shock. 4. Pneumonia with multidrug-resistant Acinetobacter. 5. Acute kidney injury, likely secondary to septic shock, resolved. 6. Dysphagia, gastrostomy tube. 7. Acute anemia requiring blood transfusion. 8. 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 9. Hypernatremia, resolved. 10. Paroxysmal atrial fibrillation. 11. Hypertension. 12. Seizure disorder. 13. Electrolyte abnormality (hypokalemia and hypomagnesemia, resolved). DISCHARGE MEDICATIONS: See medication reconciliation list. DISCHARGE INSTRUCTIONS: The patient was discharged to subacute facility. FOLLOWUP: Follow up with the medical doctor and filling hauler weaving at the facility. Ho Mcghee M.D. Tatiana Ramos ([facility]: ABDI JOB#: [id number] CC: PARTH
== END 2017-07-24 18:15 | DRG 870 ==
LOC: EDBD 14:21 → EMR 14:35 → ICU 16:17 → EDBEDREQ 17:03 → ENRESERV 17:32 → EDBEDREQ 17:36 → 2W 07-12 14:15
PROC: 5A1955Z Respiratory Ventilation, Greater than 96 Consecutive Hours (ICD-10-PCS; principal; 2017-07-07)
PROC: 05H533Z Insertion of Infusion Device into Right Subclavian Vein, Percutaneous Approach (ICD-10-PCS; principal; 2017-07-07)
DX: A41.9 Sepsis, unspecified organism (principal); J96.20 Acute and chronic respiratory failure, unspecified whether with hypoxia or hypercapnia; R65.21 Severe sepsis with septic shock; J18.9 Pneumonia, unspecified organism; Z99.11 Dependence on respirator [ventilator] status; N17.9 Acute kidney failure, unspecified; Z93.0 Tracheostomy status; E87.0 Hyperosmolality and hypernatremia; I48.91 Unspecified atrial fibrillation; I82.511 Chronic embolism and thrombosis of right femoral vein; I82.531 Chronic embolism and thrombosis of right popliteal vein; D64.9 Anemia, unspecified; Z93.1 Gastrostomy status; G40.909 Epilepsy, unspecified, not intractable, without status epilepticus; I10 Essential (primary) hypertension; R13.10 Dysphagia, unspecified; E87.6 Hypokalemia; E86.0 Dehydration; F03.90 Unspecified dementia, unspecified severity, without behavioral disturbance, psychotic disturbance, mood disturbance, and anxiety; Z22.322 Carrier or suspected carrier of Methicillin resistant Staphylococcus aureus; Z79.01 Long term (current) use of anticoagulants; Z66 Do not resuscitate; E83.42 Hypomagnesemia
CPT/HCPCS: 36415; 36600; 71010; 80048; 80053; 80150; 80202; 81003; 82248; 82270; 82550; 82553; 82803; 83605; 83735; 83880; 84100; 84165; 84443; 84484; 85007; 85025; 86850; 86900; 86901; 86920; 87040; 87070; 87081; 87086; 87181; 87205; 93005; 93306; 93970; 94002; 94003; 94640; 94664; 99291; J7620

== ENCOUNTER 2017-08-10 08:57 | Inpatient (IN) | payer MEDICARE ==
[~2017-08-10] VITALS: Ht 165.1 cm; Wt 64.0 kg
[2017-08-10] VITALS (7 sets, daily range): BP systolic 102–156; BP diastolic 49–91
[~2017-08-10 08:57] MED LIST: ACETAMINOP160 MG/5 M GT; ALBUTEROL2.5 MG/3 M INH; BISACODYL10 M1 RC; BISACODYL5 MG RECTAL; COLISTIN150 MG INH; IPRATROPIU0.2 MG/1 M HHN; LATANOPROST2.5 ML BOTH EYES; LORAZEPAM0.5 MG GT; LORAZEPAM0.5 MG ORAL; MILK OF MA2400 MG/10 GT; MILK OF MA400 MG/51 GT; MILK OF MA400 MG/51 ORAL; NAMENDA5 MG GT; PACERONE200 MG GT; TRAZODONE HCL50 MG GT; VALPROIC ACID1 ML GT; VITAMIN C500 M1 GT
[2017-08-10] MEDS ORDERED: NS 1000ml 1,900 ML IVLG ONE (09:00)
[2017-08-10] MEDS ORDERED: Vancomycin 1 GM in NS 275 ML IV ONE (09:00)
[2017-08-10] MEDS ORDERED: Acetaminophen 650mg/20.3ml GT STA (09:00)
[2017-08-10] MEDS ORDERED: MULTI-DELYN237 ML GT (09:05)
[2017-08-10] MEDS ORDERED: COLACE100 MG GT (09:05)
[2017-08-10] MEDS ORDERED: FeSO4 GT (09:05)
--- NOTE | 2017-08-10 09:24 | Emergency Room Report ---
History of Present Illness General Chief Complaint: Fever Source: EMS Present Illness HPI The patient is sent in for a fever. Her temperature was apparently 102 in the [facility] facility. She is ventilator dependent. There's been no noted cough. Her O2 sats on 40% and been 95% according to EMS. There is no indwelling Smith. An unsigned POLST states DNR. Patient unable to respond to give history. Discharged 07/24: 1. Acute on chronic respiratory failure, resolved. 2. Ventilator-dependent respiratory failure/tracheostomy status. 3. Sepsis with septic shock. 4. Pneumonia with multidrug-resistant Acinetobacter. 5. Acute kidney injury, likely secondary to septic shock, resolved. 6. Dysphagia, gastrostomy tube. 7. Acute anemia requiring blood transfusion. 8. 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 9. Hypernatremia, resolved. 10. Paroxysmal atrial fibrillation. 11. Hypertension. 12. Seizure disorder. 13. Electrolyte abnormality (hypokalemia and hypomagnesemia, resolved). Allergies: Coded Allergies: ASPIRIN (Verified Allergy, Unknown, 07/07/17) Patient History Limited by: medical condition Past Medical History: see triage record, old chart reviewed Past Surgical History: other - trach, G tube Social History Narrative [place] Now: No Reviewed Nursing Documentation: PMH: Agreed, PSxH: Agreed Nursing Documentation-PMH Hx Cardiac Problems: Yes - Anemia Hx Hypertension: Yes - Acute kidney failure Hx Cancer: No Hx Gastrointestinal Problems: Yes - Dysphagia. Gtube. Hx Dialysis: No History Of Psychiatric Problem: No Hx Neurological Problems: No Hx Seizures: Yes Review of Systems All Other Systems: limited Physical Exam Vital Signs Date Time Temp Pulse Resp B/P (MAP) Pulse Ox O2 Delivery O2 Flow Rate FiO2 08/10/17 08:51 99.7 88 20 119/47 95 Mechanical Ventilator 40 Sp02 EP Interpretation: reviewed, normal General Appearance: no apparent distress, thin, other - minimally responsive, Chronically Ill Head: normocephalic Eyes: bilateral eye normal inspection ENT: dry mucus membranes Neck: supple, tracheotomy Respiratory: crackles, rhonchi Cardiovascular #1: regular rate, rhythm Cardiovascular #2: 2+ radial (R) Gastrointestinal: normal inspection, non tender, no mass, non-distended, other - G tube, decreased bowel sounds Musculoskeletal: other - extensor contractures Neurologic: other - stupor, min resp to pain Psychiatric: other - stupor Skin: other - stage 3 sacral and gluteal decubiti Medical Decision Making Diagnostic Impression: Primary Impression: Sepsis Qualified Codes: A41.9 - Sepsis, unspecified organism Additional Impressions: Pneumonia Qualified Codes: J18.9 - Pneumonia, unspecified organism Anemia Qualified Codes: D64.9 - Anemia, unspecified ER Course The patient presents with fever. She is unable to give a history. Differential includes sepsis, pneumonia, UTI, other occult source. Evaluation will be with EKG, chest x-ray and labs including a cultures and lactate. A Smith catheter will be inserted. EKG without injury. CXR with bilateral (more R) infiltrates. WBC elevated. Labs with normal lactate. Anemia (has had in past) Min renal insufficiency. O2 sats holding of vent. Not tachycardic or hypotensive. Sepsis rehydration initiated and antibiotics for pneumonia begun. Patient admitted to [facility]. Laboratory Tests Test 08/10/17 09:12 08/10/17 09:30 White Blood Count 17.0 K/UL (4.8-10.8) H Red Blood Count 2.73 M/UL (4.20-5.40) L Hemoglobin 8.3 G/DL (12.0-16.0) L Hematocrit 25.7 % (37.0-47.0) L Mean Corpuscular Volume 94 FL (80-99) Mean Corpuscular Hemoglobin 30.3 PG (27.0-31.0) Mean Corpuscular Hemoglobin Concent 32.2 G/DL (32.0-36.0) Red Cell Distribution Width 14.9 % (11.6-14.8) H Platelet Count 364 K/UL (150-450) Mean Platelet Volume 6.4 FL (6.5-10.1) L Neutrophils (%) (Auto) 78.2 % (45.0-75.0) H Lymphocytes (%) (Auto) 9.1 % (20.0-45.0) L Monocytes (%) (Auto) 10.9 % (1.0-10.0) H Eosinophils (%) (Auto) 1.0 % (0.0-3.0) Basophils (%) (Auto) 0.9 % (0.0-2.0) Prothrombin Time 12.4 SEC (9.30-11.50) H Prothrombin Time INR 1.2 (0.9-1.1) H PTT 33 SEC (23-33) Sodium Level 135 MMOL/L (136-145) L Potassium Level 4.1 MMOL/L (3.5-5.1) Chloride Level 99 MMOL/L (98-107) Carbon Dioxide Level 32 MMOL/L (21-32) Anion Gap 4 mmol/L (5-15) L Blood Urea Nitrogen 19 mg/dL (7-18) H Creatinine 1.1 MG/DL (0.55-1.30) Estimate Glomerular Filtration Rate mL/min (>60) Glucose Level 114 MG/DL (74-106) H Lactic Acid Level 1.30 mmol/L (0.66-2.22) Calcium Level 9.4 MG/DL (8.5-10.1) Magnesium Level 2.0 MG/DL (1.8-2.4) Total Bilirubin 0.2 MG/DL (0.2-1.0) Aspartate Amino Transferase (AST) 20 U/L (15-37) Alanine Aminotransferase (ALT) 16 U/L (12-78) Alkaline Phosphatase 87 U/L (46-116) Total Creatine Kinase 42 U/L (26-308) Troponin I 0.002 ng/mL (0.000-0.056) Pro-B-Type Natriuretic Peptide 602 pg/mL (0-125) H Total Protein 8.5 G/DL (6.4-8.2) H Albumin 2.2 G/DL (3.4-5.0) L Globulin 6.3 g/dL Albumin/Globulin Ratio 0.3 (1.0-2.7) L Urine Color Pale yellow Urine Appearance Clear Urine pH 8 (4.5-8.0) Urine Specific Hedley 1.015 (1.005-1.035) Urine Protein Negative (NEGATIVE) Urine Glucose (UA) Negative (NEGATIVE) Urine Ketones Negative (NEGATIVE) Urine Occult Blood 1+ (NEGATIVE) H Urine Nitrite Negative (NEGATIVE) Urine Bilirubin Negative (NEGATIVE) Urine Urobilinogen Normal MG/DL (0.0-1.0) Urine Leukocyte Esterase Negative (NEGATIVE) Urine RBC 2-4 /HPF (0 - 2) H Urine WBC 0-2 /HPF (0 - 2) Urine Squamous Epithelial Cells Occasional /LPF Urine Bacteria Occasional /HPF (NONE) Microbiology Date/Time Source Procedure Growth Status 08/10/17 09:45 Nasal Nares Influenza Types A,B Antigen (SVEN) - Final Complete EKG Diagnostic Results Rate: normal Rhythm: NSR ST Segments: no acute changes Rhythm Strip Diag. Results EP Interpretation: yes Rhythm: NSR, no PVC's, no ectopy Chest X-Ray Diagnostic Results Chest X-Ray Diagnostic Results : Chest X-Ray Ordered: Yes # of Views/Limited/Complete: 1 View Indication: Other EP Interpretation: Yes Interpretation: no effusion, no pneumothorax, other - bilateral infiltrates Impression: Other Electronically Signed by: Electronically signed by Martin Bryan MD Last Vital Signs Date Time Temp Pulse Resp B/P (MAP) Pulse Ox O2 Delivery O2 Flow Rate FiO2 08/10/17 17:10 75 12 35 08/10/17 16:00 100.8 131/57 99 Mechanical Ventilator 15.0 Status: improved Disposition: ADMITTED INPATIENT Condition: Serious Martin Bryan M.D. Aug 10, 2017 09:24
[2017-08-10] MEDS ORDERED: Vancomycin 1gm inj IVPB ONE (09:36)
[2017-08-10 10:03] LABS: APPEARANCE,URINE CLEAR; KETONES,URINE NEGATIVE (NEGATIVE); LEUKOCYTE ESTERASE ,URINE NEGATIVE (NEGATIVE); NITRITE,URINE NEGATIVE (NEGATIVE); PH,URINE 8 (4.5-8.0); PROTEIN,URINE NEGATIVE (NEGATIVE); UROBILINOGEN,URINE NORMAL MG/DL (0.0-1.0)
[2017-08-10 10:09] LABS: ANION GAP 4 mmol/L (5-15); CALCIUM 9.4 MG/DL (8.5-10.1); CARBON DIOXIDE 32 MMOL/L (21-32); CHLORIDE 99 MMOL/L (98-107); CREATININE 1.1 MG/DL (0.55-1.30); POTASSIUM 4.1 MMOL/L (3.5-5.1); SODIUM 135 MMOL/L (136-145)
[2017-08-10 10:10] LABS: BASOPHILS % (AUTO) 0.9 % (0.0-2.0); LYMPHOCYTES % (AUTO) 9.1 % (20.0-45.0); MEAN CORPUSCULAR HEMOGLOBIN 30.3 PG (27.0-31.0); MEAN CORPUSCULAR HGB CONC 32.2 G/DL (32.0-36.0); MEAN CORPUSCULAR VOLUME 94 FL (80-99); MEAN PLATELET VOLUME 6.4 FL (6.5-10.1); MONOCYTES % (AUTO) 10.9 % (1.0-10.0); NEUTROPHILS % (AUTO) 78.2 % (45.0-75.0); PLATELET COUNT 364 K/UL (150-450); RED BLOOD COUNT 2.73 M/UL (4.20-5.40); RED CELL DISTRIBUTION WIDTH 14.9 % (11.6-14.8)
[2017-08-10 10:16] LABS: INR 1.2 (0.9-1.1); PROTHROMBIN TIME 12.4 SEC (9.30-11.50)
[2017-08-10 10:18] LABS: ALANINE AMINOTRANSFERASE 16 U/L (12-78); ALBUMIN/GLOBULIN RATIO 0.3 (1.0-2.7); ASPARTATE AMINO TRANSFERASE 20 U/L (15-37); TOTAL PROTEIN 8.5 G/DL (6.4-8.2)
[2017-08-10 10:19] LABS: SQUAMOUS EPITHELIAL CELL,UR OCCASIONAL /LPF (NONE/OCC); WBC,URINE 0-2 /HPF (0 - 2)
[2017-08-10 10:20] LABS: BACTERIA,URINE OCCASIONAL /HPF
[2017-08-10] MEDS ORDERED: Cefepime HCl 1 GM in D5W 55 ML IVPB ONE (10:30)
[2017-08-10] MEDS ORDERED: Cefepime 1gm vial ONE (11:33)
--- NOTE | 2017-08-10 13:02 | History and Physical ---
History of Present Illness General Date patient seen: Aug 10, 2017 Reason for Hospitalization: Fever Present Illness HPI 82 yo gentle lady with pmhx respiratory failure chronic ventilator depedence status post tracheostomy status post PEG bed bound history of sepsis JAMES dysphagia CVA paroxysmal atrial fibrillation HTN seizure disorder [facility] namely sub acute fasc[facility] that treats patient with chronic ventilatory needs for fever and low blood pressure and rapid heart rate. Patients termperature at the [facility] was reported to be 102 degrees and heart rate over 110 beats per minute. The patient has been initiated on broad spectrum antibiotics for suspected sepsis and further tests still pending to investigate the patients underlying disease. Initial chest radiograph reveals findings consistant with bilateral lung pnuemonia and pleural effusions. Allergies: Coded Allergies: ASPIRIN (Verified Allergy, Unknown, 07/07/17) Medication History Scheduled Amiodarone Hcl* (Pacerone*), 200 MG GT DAILY Ascorbic Acid* (Vitamin C*), 500 MG GT QID, (Reported) Colistimethate Sodium (Colistin), 75 MG INH Q12HR@10,22 Colistimethate Sodium (Colistin), 150 MG HHN EVERY 12 HOURS, (Reported) Docusate Sodium* (Colace*), 100 MG GT DAILY, (Reported) Latanoprost* (Xalatan*), 1 DROP BOTH EYES BEDTIME, (Reported) Memantine Hcl* (Namenda*), 5 MG GT TWICE A DAY, (Reported) Meropenem (Merrem), 1 GM IV EVERY 8 HOURS, (Reported) Multivitamin Liquid* (Multi-Delyn*), 5 ML GT DAILY, (Reported) Valproic Acid (Valproic Acid), 5 ML GT BID, (Reported) [FeSO4], 330 MG GT DAILY, (Reported) Scheduled PRN Acetaminophen 160MG/5ML* (Acetaminophen*), 20.3 ML GT Q4HR PRN for Fever/ Headache/Mild Pain, (Reported) Albuterol Sulfate* (Albuterol Sulfate Hhn*), 3 ML INH EVERY 2 HOURS PRN for Shortness of Breath, (Reported) Bisacodyl (Bisacodyl), 10 MG RC for Constipation, (Reported) Ipratropium [place] 0.5MG/2.5ML (Ipratropium [place] 0.5MG/2.5ML), 0.5 MG HHN Q6H PRN for Shortness of Breath, (Reported) Lorazepam* (Lorazepam*), 0.5 MG GT DAILY PRN for For Anxiety, (Reported) Magnesium Hydroxide* (Milk Of Magnesia*), 30 ML GT DAILY PRN for Constipation, ( Reported) Trazodone Hcl* (Desyrel*), 50 MG GT BEDTIME PRN for insomnia, (Reported) Patient History Healthcare decision maker Resuscitation status Advanced Directive on File Past Medical/Surgical History Past Medical/Surgical History: (1) Septic shock (2) Hypotension (3) HTN (hypertension) (4) Hypernatremia (5) Anemia (6) Sepsis (7) Fever (8) Dysphagia (9) Seizure disorder (10) Acute and chronic respiratory failure (11) Tracheostomy care (12) Respiratory failure Review of Systems Constitutional: Reports: fever Respiratory: Reports: shortness of breath Physical Exam General Appearance: moderate distress Lines, tubes and drains: peripheral HEENT: normocephalic, atraumatic, anicteric, PERRL, status post trach Neck: non-tender, normal alignment, limited range of motion, trach Respiratory/Chest: chest wall non-tender, respiratory distress, accessory muscle use, crackles/rales, rhonchi - bilaterally, expiratory wheezing, inspiratory wheezing, pleural rub Breasts: no masses Cardiovascular/Chest: regular rhythm, no JVD, tachycardia Abdomen: normal bowel sounds, non tender, soft, no organomegaly, no mass, feeding tube Genitourinary/Rectal: normal genital exam, normal rectal exam Extremities: non-tender, normal inspection, no calf tenderness, normal capillary refill, non-pitting Skin Exam: normal pigmentation, warm/dry Neurologic: motor weakness, unresponsiveness Musculoskeletal: atrophy Last 24 Hour Vital Signs Date Time Temp Pulse Resp B/P (MAP) Pulse Ox O2 Delivery O2 Flow Rate FiO2 08/10/17 11:55 100.2 97 21 142/69 94 Mechanical Ventilator 15.0 40 08/10/17 11:38 97 21 142/69 94 Mechanical Ventilator 15.0 40 08/10/17 11:00 89 18 117/60 95 Mechanical Ventilator 15.0 40 08/10/17 10:40 86 21 40 08/10/17 10:30 87 18 156/91 95 Mechanical Ventilator 15.0 40 08/10/17 10:00 88 19 127/49 100 Mechanical Ventilator 15.0 40 08/10/17 09:10 97 21 40 08/10/17 09:10 97 21 Mechanical Ventilator 15.0 40 08/10/17 09:10 15.0 40 08/10/17 09:01 100.2 86 21 127/69 95 Mechanical Ventilator 40 08/10/17 08:51 99.7 88 20 119/47 95 Mechanical Ventilator 40 Intake and Output 08/10/17 08/11/17 19:00 07:00 Intake Total 275.0 ml Output Total 250 ml Balance 25.0 ml Intake IV Total 275.0 ml Output Urine Total 250 ml # Voids 1 # Bowel Movements 1 Laboratory Tests Test 08/10/17 09:12 08/10/17 09:30 White Blood Count 17.0 K/UL (4.8-10.8) H Red Blood Count 2.73 M/UL (4.20-5.40) L Hemoglobin 8.3 G/DL (12.0-16.0) L Hematocrit 25.7 % (37.0-47.0) L Mean Corpuscular Volume 94 FL (80-99) Mean Corpuscular Hemoglobin 30.3 PG (27.0-31.0) Mean Corpuscular Hemoglobin Concent 32.2 G/DL (32.0-36.0) Red Cell Distribution Width 14.9 % (11.6-14.8) H Platelet Count 364 K/UL (150-450) Mean Platelet Volume 6.4 FL (6.5-10.1) L Neutrophils (%) (Auto) 78.2 % (45.0-75.0) H Lymphocytes (%) (Auto) 9.1 % (20.0-45.0) L Monocytes (%) (Auto) 10.9 % (1.0-10.0) H Eosinophils (%) (Auto) 1.0 % (0.0-3.0) Basophils (%) (Auto) 0.9 % (0.0-2.0) Prothrombin Time 12.4 SEC (9.30-11.50) H Prothromb Time International Ratio 1.2 (0.9-1.1) H Activated Partial Thromboplast Time 33 SEC (23-33) Sodium Level 135 MMOL/L (136-145) L Potassium Level 4.1 MMOL/L (3.5-5.1) Chloride Level 99 MMOL/L (98-107) Carbon Dioxide Level 32 MMOL/L (21-32) Anion Gap 4 mmol/L (5-15) L Blood Urea Nitrogen 19 mg/dL (7-18) H Creatinine 1.1 MG/DL (0.55-1.30) Estimat Glomerular Filtration Rate mL/min (>60) Glucose Level 114 MG/DL (74-106) H Lactic Acid Level 1.30 mmol/L (0.66-2.22) Calcium Level 9.4 MG/DL (8.5-10.1) Magnesium Level 2.0 MG/DL (1.8-2.4) Total Bilirubin 0.2 MG/DL (0.2-1.0) Aspartate Amino Transf (AST/SGOT) 20 U/L (15-37) Alanine Aminotransferase (ALT/SGPT) 16 U/L (12-78) Alkaline Phosphatase 87 U/L (46-116) Total Creatine Kinase 42 U/L (26-308) Troponin I 0.002 ng/mL (0.000-0.056) Pro-B-Type Natriuretic Peptide 602 pg/mL (0-125) H Total Protein 8.5 G/DL (6.4-8.2) H Albumin 2.2 G/DL (3.4-5.0) L Globulin 6.3 g/dL Albumin/Globulin Ratio 0.3 (1.0-2.7) L Urine Color Pale yellow Urine Appearance Clear Urine pH 8 (4.5-8.0) Urine Specific Reading 1.015 (1.005-1.035) Urine Protein Negative (NEGATIVE) Urine Glucose (UA) Negative (NEGATIVE) Urine Ketones Negative (NEGATIVE) Urine Occult Blood 1+ (NEGATIVE) H Urine Nitrite Negative (NEGATIVE) Urine Bilirubin Negative (NEGATIVE) Urine Urobilinogen Normal MG/DL (0.0-1.0) Urine Leukocyte Esterase Negative (NEGATIVE) Urine RBC 2-4 /HPF (0 - 2) H Urine WBC 0-2 /HPF (0 - 2) Urine Squamous Epithelial Cells Occasional /LPF Urine Bacteria Occasional /HPF (NONE) Microbiology Date/Time Source Procedure Growth Status 08/10/17 09:45 Nasal Nares Influenza Types A,B Antigen (SVEN) - Final Complete Height (Feet): 5 Height (Inches): 5.00 Weight (Pounds): 141 Assessment/Plan Status: stable, progressing Assessment/Plan Sepsis Bilateral Pnuemonia Chronic ventilatory dependency Acute respiratory failure status post tracheostomy Status post PEG Seizure disorder HTN Plan Broad spectrum empirical antibiotics for nosocomially aquired pnuemonia Sputum cx Titrate FiO2 up maintain O2 saturation above 92% Anti-pyretics as needed for fever IV fluid hydration and BP support Pressor agents if MAP drops below 60 Follow up with culture results Laboratory studies and electrolyte replacement COBY LEBLANC Aug 10, 2017 13:02
--- NOTE | 2017-08-10 13:03 | Diagnostic Imaging Report ---
Indication: Altered mental status/loss of consciousness Technique: CHEST 1 VIEW Comparison: 07/17/2017 Findings: Heart size and mediastinal contours are stable. Tracheostomy tube in place. Interval removal of central line. Again noted is interstitial opacification and bilateral airspace opacities in a similar distribution compared to the prior exam. Haziness of the right lower lung may be related to layering pleural effusion. No pneumothorax. Osseous structures are stable. Impression: Persistent bilateral airspace opacities and small pleural effusion - slightly increased.
[2017-08-10] MEDS ORDERED: Morphine Sulfate 4mg/ml Inj IVP PRN (13:15)
[2017-08-10] MEDS ORDERED: Miralax 17gm pkt ORAL PRN (13:15)
[2017-08-10] MEDS ORDERED: TraZODone 50mg tab GT PRN (13:15)
[2017-08-10] MEDS ORDERED: Albuterol/Ipratropium 3ml neb HHN PRN (13:15)
[2017-08-10] MEDS ORDERED: Zosyn 3.375gm/50ml Premix 50 ML IVPB SCH (15:00)
[2017-08-10] MEDS: Piperacillin/Tazobactam 3.375 GM in D5W 55 ML IV SCH ×2 (15:04→23:30)
[2017-08-10] MEDS: LORazepam Inj 2mg/ml 1ml IV PRN (18:15)
--- NOTE | 2017-08-10 19:18 | Consultation ---
Consult Note Consult Note dic # [id number] COLBY BRICENO M.D. Aug 10, 2017 19:18
[2017-08-10] MEDS: Heparin 5000 units/ml inj SUBQ SCH (21:00)
[2017-08-11] VITALS: BP 105/72
[2017-08-11 04:00] VITALS: BP 122/89
--- NOTE | 2017-08-11 05:15 | Consultation ---
DATE OF CONSULTATION: 08/10/2017 INFECTIOUS DISEASES CONSULTATION CONSULTING PHYSICIAN: Ricky Slater M.D. REQUESTING PHYSICIAN: Sue Yu M.D. REASON FOR CONSULTATION: Evaluation of the patient for sepsis and antibiotic management. HISTORY OF PRESENT ILLNESS: The patient is an 82-year-old female with multiple medical problems as listed below, who was admitted to this medical center because the patient has fever and was admitted with impression of sepsis. Infectious Disease consultation has been requested for further evaluation of the patient's antibiotic management. The patient is unable to provide information. Much of the information is gathered through the chart and speaking to the staff. PAST MEDICAL HISTORY: 1. History of recent pneumonia due to multidrug-resistant Acinetobacter. 2. History of recent septic shock. 3. Hypertension. 4. History of seizure disorder. 5. Ventilator-dependent respiratory failure. 6. History of lower extremity DVT. 7. History of PEG and trach placement. MEDICATIONS: Vancomycin and Zosyn. ALLERGIES: Aspirin. SOCIAL HISTORY: The patient lives in a half-way. FAMILY HISTORY: Unavailable. PHYSICAL EXAMINATION: VITAL SIGNS: Temperature 100.8, blood pressure 113/57, pulse 86 and respiratory rate 18. HEENT: Mild pale conjunctivae. No icterus. NECK: No lymphadenopathy. Trach is in place. CHEST: Coarse breathing sounds. HEART: S1 and S2. ABDOMEN: Soft. PEG tube in place. EXTREMITIES: No cyanosis or cellulitis. NEUROLOGIC: Nonverbal. LABORATORY AND DIAGNOSTIC DATA: Labs, white blood cells 17, hemoglobin 8.3, and platelets 264. UA unremarkable. BUN 19 and creatinine 0.9. ALT, AST, and alkaline phosphatase are unremarkable. Sputum culture from 07/08/2017 showed multidrug-resistant Acinetobacter. Chest x-ray shows bilateral air space disease and small pleural effusion. ASSESSMENT: 1. Fever. 2. Leukocytosis. 3. Sepsis. 4. Probable ventilator associated pneumonia. 5. History of recent multidrug-resistant Acinetobacter pneumonia. PLAN: 1. We will continue the patient on vancomycin and Zosyn for now. 2. Monitor CBC. 3. Monitor BMP. 4. Monitor cultures (blood, sputum and urine). 5. Monitor chest x-ray. 6. Monitor the patient's clinical course and laboratories and based on those, we will do further recommendation. Thank you, Dr. Yu, for allowing me to participate in the care of this patient. I will follow the patient with you during this hospitalization. Ricky Slater M.D. DR: LEW JOB#: [id number] CC:
[2017-08-11] MEDS: Piperacillin/Tazobactam 3.375 GM in D5W 55 ML IV SCH ×3 (05:42→21:38)
[2017-08-11 06:14] LABS: MEAN CORPUSCULAR HEMOGLOBIN 30.1 PG (27.0-31.0); MEAN CORPUSCULAR HGB CONC 32.4 G/DL (32.0-36.0); MEAN CORPUSCULAR VOLUME 93 FL (80-99); MEAN PLATELET VOLUME 6.5 FL (6.5-10.1); PLATELET COUNT 320 K/UL (150-450); RED BLOOD COUNT 2.47 M/UL (4.20-5.40); RED CELL DISTRIBUTION WIDTH 14.1 % (11.6-14.8); WHITE BLOOD COUNT 16.1 K/UL (4.8-10.8)
[2017-08-11 06:34] LABS: ANION GAP 7 mmol/L (5-15); CALCIUM 9.1 MG/DL (8.5-10.1); CARBON DIOXIDE 29 MMOL/L (21-32); CHLORIDE 104 MMOL/L (98-107); CREATININE 1.5 MG/DL (0.55-1.30); PHOSPHORUS 3.3 MG/DL (2.5-4.9); POTASSIUM 4.1 MMOL/L (3.5-5.1); SODIUM 140 MMOL/L (136-145)
[2017-08-11 07:28] LABS: BAND NEUTROPHILS % (MANUAL) 1 % (0-8); LYMPHOCYTES % (MANUAL) 13 % (20-45); NEUTROPHILS % (MANUAL) 79 % (45-75); TOTAL CELLS COUNTED 100
[2017-08-11 07:29] LABS: ANISOCYTOSIS 1+; BASOPHILS % (MANUAL) 0 % (0-2); EOSINOPHILS % (MANUAL) 0 % (0-3); HYPOCHROMASIA 3+; PLATELET ESTIMATE ADEQUATE; PLATELET MORPHOLOGY NORMAL; SPHEROCYTES 1+
--- NOTE | 2017-08-11 08:00 | Pulmonology Progress Note ---
Assessment/Plan Assessment/Plan ASSESSMENT Sepsis PNA acute on chronic respiratory failure VDRF/trach status ATN HTN dysphagia, G tube acute anemia requiring blood transfusion COPD hx of CVA seizure disorder schizophrenia PAF functional quadriplegia PLAN OF CARE MARTHA Vent trach care pulmonary toilet baseline ABG and titrate settings as needed fup with CXR Abd ID consult fup with cx Influenza screen test negative Strict aspiration precautions GT feeding, monitor tolerance Monitor HH, anemia w/up, transfuse 1 u today DVT GI prophylaxis Bowel regimen Venous Duplex BLE seizure precautions, continue Depakote, continue Amiodarone give 1 L NS bolus for worsening creatinine monitor closely renal parameters, lytes, correct as needed avoid nephrotoxic case discussed and evaluated by supervising physician Subjective Allergies: Coded Allergies: ASPIRIN (Verified Allergy, Unknown, 07/07/17) Subjective still with leukocytosis, afebrile no signs of respiratory distress anemic-7.4/22.9 creat up to 1.5 from 1.1 yesterday Objective Last 24 Hour Vital Signs Date Time Temp Pulse Resp B/P (MAP) Pulse Ox O2 Delivery O2 Flow Rate FiO2 08/11/17 06:44 74 18 40 08/11/17 05:13 76 18 40 08/11/17 04:00 98.8 78 18 122/89 100 Mechanical Ventilator 15.0 40 08/11/17 04:00 85 08/11/17 04:00 15.0 40 08/11/17 03:14 80 18 40 08/11/17 01:07 74 18 40 08/11/17 00:05 18 100 Mechanical Ventilator 15.0 40 08/11/17 00:00 76 08/11/17 00:00 40 08/11/17 00:00 98.1 80 18 105/72 100 Mechanical Ventilator 08/10/17 22:30 83 18 40 08/10/17 21:13 103 18 40 08/10/17 20:05 18 97 Mechanical Ventilator 15.0 40 08/10/17 20:00 98.1 94 18 102/55 94 Mechanical Ventilator 15.0 40 08/10/17 20:00 108 08/10/17 19:30 103 18 40 08/10/17 19:15 98.6 08/10/17 17:10 75 12 35 08/10/17 16:00 100.8 91 26 131/57 99 Mechanical Ventilator 15.0 40 08/10/17 16:00 15.0 35 08/10/17 15:27 78 8 35 08/10/17 13:18 97.8 08/10/17 13:15 80 8 35 08/10/17 12:43 104 08/10/17 11:55 100.2 97 21 142/69 94 Mechanical Ventilator 15.0 40 08/10/17 11:38 97 21 142/69 94 Mechanical Ventilator 15.0 40 08/10/17 11:00 89 18 117/60 95 Mechanical Ventilator 15.0 40 08/10/17 10:40 86 21 40 08/10/17 10:30 87 18 156/91 95 Mechanical Ventilator 15.0 40 08/10/17 10:00 88 19 127/49 100 Mechanical Ventilator 15.0 40 08/10/17 09:10 97 21 40 08/10/17 09:10 97 21 Mechanical Ventilator 15.0 40 08/10/17 09:10 15.0 40 08/10/17 09:01 100.2 86 21 127/69 95 Mechanical Ventilator 40 08/10/17 08:51 99.7 88 20 119/47 95 Mechanical Ventilator 40 General Appearance: no acute distress, other - chronically, ill, bedridden, vent dependent female in [facility] Vent AC 600-40-18 HEENT: normocephalic, atraumatic, anicteric, status post trach - Portex#8, secretions moderate, yellow, thick Respiratory/Chest: lungs clear, no respiratory distress, no accessory muscle use Cardiovascular: normal rate, regular rhythm - SR ontele Abdomen: normal bowel sounds, soft, non tender, other - G tube Extremities: other - spastic LE Neurologic/Psychiatric: abnormal gait, other - open eyes spontaneously and to response to touch, not responding to verbal commands, Musculoskeletal: atrophy - BLE Microbiology Date/Time Source Procedure Growth Status 08/10/17 15:45 Sputum Gram Stain Pending Resulted 08/10/17 15:45 Sputum Sputum Culture - Preliminary Resulted 08/10/17 09:45 Nasal Nares Influenza Types A,B Antigen (SVEN) - Final Complete Laboratory Tests 08/10/17 09:12: White Blood Count 17.0H, Red Blood Count 2.73L, Hemoglobin 8.3L, Hematocrit 25.7L, Mean Corpuscular Volume 94, Mean Corpuscular Hemoglobin 30.3, Mean Corpuscular Hemoglobin Concent 32.2, Red Cell Distribution Width 14.9H, Platelet Count 364, Mean Platelet Volume 6.4L, Neutrophils (%) (Auto) 78.2H, Lymphocytes (%) (Auto) 9.1L, Monocytes (%) (Auto) 10.9H, Eosinophils (%) (Auto) 1.0, Basophils (%) (Auto) 0.9, Prothrombin Time 12.4H, Prothromb Time International Ratio 1.2H, Activated Partial Thromboplast Time 33, Sodium Level 135L, Potassium Level 4.1, Chloride Level 99, Carbon Dioxide Level 32, Anion Gap 4L, Blood Urea Nitrogen 19H, Creatinine 1.1, Estimat Glomerular Filtration Rate , Glucose Level 114H, Lactic Acid Level 1.30, Calcium Level 9.4, Magnesium Level 2.0, Total Bilirubin 0.2, Aspartate Amino Transf (AST/SGOT) 20, Alanine Aminotransferase (ALT/SGPT) 16, Alkaline Phosphatase 87, Total Creatine Kinase 42, Troponin I 0.002, Pro-B-Type Natriuretic Peptide 602H, Total Protein 8.5H, Albumin 2.2L, Globulin 6.3, Albumin/Globulin Ratio 0.3L 08/10/17 09:30: Urine Color Pale yellow, Urine Appearance Clear, Urine pH 8, Urine Specific [place] 1.015, Urine Protein Negative, Urine Glucose (UA) Negative, Urine Ketones Negative, Urine Occult Blood 1+H, Urine Nitrite Negative, Urine Bilirubin Negative, Urine Urobilinogen Normal, Urine Leukocyte Esterase Negative , Urine RBC 2-4H, Urine WBC 0-2, Urine Squamous Epithelial Cells Occasional, Urine Bacteria Occasional 08/11/17 03:50: White Blood Count 16.1H, Red Blood Count 2.47L, Hemoglobin 7.4L, Hematocrit 22.9L, Mean Corpuscular Volume 93, Mean Corpuscular Hemoglobin 30.1, Mean Corpuscular Hemoglobin Concent 32.4, Red Cell Distribution Width 14.1, Platelet Count 320, Mean Platelet Volume 6.5, Neutrophils (%) (Auto) , Lymphocytes (%) ( Auto) , Monocytes (%) (Auto) , Eosinophils (%) (Auto) , Basophils (%) (Auto) , Sodium Level 140, Potassium Level 4.1, Chloride Level 104, Carbon Dioxide Level 29, Anion Gap 7, Blood Urea Nitrogen 21H, Creatinine 1.5H, Estimat Glomerular Filtration Rate , Glucose Level 89, Calcium Level 9.1, Albumin 1.9L, Differential Total Cells Counted 100, Neutrophils % (Manual) 79H, Lymphocytes % (Manual) 13L, Monocytes % (Manual) 7, Eosinophils % (Manual) 0, Basophils % ( Manual) 0, Band Neutrophils 1, Platelet Estimate Adequate, Platelet Morphology Normal, Hypochromasia 3+, Anisocytosis 1+, Spherocytes 1+, Phosphorus Level 3.3 Current Medications Medications (Trade) Dose Ordered Sig/Torsten Route PRN Reason Start Time Stop Time Status Last Admin Dose Admin Acetaminophen (Tylenol) 650 mg Q4H PRN ORAL fever (temp>100.5F) 08/10/17 13:15 09/09/17 13:14 08/10/17 18:16 Albuterol/ Ipratropium (Albuterol/ Ipratropium) 3 ml Q4H PRN HHN Shortness of Breath 08/10/17 13:15 08/15/17 13:14 Amiodarone HCl (Cordarone) 200 mg DAILY GT 08/11/17 09:00 09/10/17 08:59 Dextrose (Dextrose 50%) STAT PRN IV Hypoglycemia 08/10/17 13:15 09/09/17 13:14 Heparin Sodium (Porcine) (Heparin 5000 units/ml) 5,000 units EVERY 12 HOURS SUBQ 08/10/17 21:00 09/09/17 20:59 08/10/17 21:00 Lorazepam (Ativan 2mg/ml 1ml) 2 mg Q2H PRN IV For Anxiety 08/10/17 13:15 08/17/17 13:14 08/10/17 18:15 Morphine Sulfate (Morphine Sulfate) 4 mg Q4H PRN IVP Severe Pain (Pain Scale 7-10) 08/10/17 13:15 08/17/17 13:14 Ondansetron HCl (Zofran) 4 mg Q6H PRN IVP Nausea & Vomiting 08/10/17 13:15 09/09/17 13:14 Pantoprazole (Protonix) 40 mg DAILY IV 08/11/17 09:00 09/10/17 08:59 Piperacillin Sod/ Tazobactam Sod 3.375 gm/Dextrose 55 ml @ 13.75 mls/ hr Q8HR IV 08/10/17 15:00 08/17/17 14:59 08/11/17 05:42 Polyethylene Glycol (Miralax) 17 gm DAILYPRN PRN ORAL Constipation 08/10/17 13:15 09/09/17 13:14 Trazodone HCl (Desyrel) 50 mg HSPRN PRN GT insomnia 08/10/17 13:15 09/09/17 13:14 Vancomycin HCl (Vanco rx to dose) 1 ea DAILY PRN MISC PER RX PROTOCOL 08/10/17 14:15 09/09/17 14:14 Vancomycin/Sodium Chloride 250 ml @ 166.667 mls/hr Q24H IVPB 08/11/17 10:00 08/16/17 09:59 Richard (Ray)Tatiana NP Aug 11, 2017 07:59
[2017-08-11 08:41] VITALS: BP 136/78
[2017-08-11] MEDS: Pantoprazole Inj IV SCH (09:17)
[2017-08-11] MEDS: Vancomycin 750mg/NS 250ml IVPB SCH (09:17)
[2017-08-11] MEDS: Amiodarone 200mg tab GT SCH (09:18)
[2017-08-11] MEDS: Heparin 5000 units/ml inj SUBQ SCH ×2 (09:19→21:07)
[2017-08-11 12:00] VITALS: BP 125/65
[2017-08-11] MEDS: LORazepam Inj 2mg/ml 1ml IV PRN ×2 (14:20→16:53)
--- NOTE | 2017-08-11 14:57 | Infectious Diseases Prog Note ---
Assessment/Plan Assessment/Plan ASSESSMENT: Fever, improving Leukocytosis , improving Sepsis. Probable ventilator associated pneumonia. History of recent multidrug-resistant Acinetobacter pneumonia. Hypertension. History of seizure disorder. Ventilator-dependent respiratory failure. History of lower extremity DVT. History of PEG and trach placement PLAN: continue the patient on vancomycin and Zosyn d# 2 Monitor CBC. Monitor BMP. Monitor cultures (blood, sputum and urine). Monitor chest x-ray. Subjective Constitutional: Denies: no symptoms, fever, chills, fatigue, anorexia, drenching sweats, other Allergies: Coded Allergies: ASPIRIN (Verified Allergy, Unknown, 07/07/17) Objective Vital Signs Last 24 Hour Vital Signs Date Time Temp Pulse Resp B/P (MAP) Pulse Ox O2 Delivery O2 Flow Rate FiO2 08/11/17 14:46 75 18 40 08/11/17 12:50 72 18 40 08/11/17 12:36 70 08/11/17 12:00 98.3 85 18 125/65 100 Mechanical Ventilator 40 08/11/17 12:00 15.0 40 08/11/17 10:57 76 18 40 08/11/17 08:41 98.1 86 27 136/78 100 Mechanical Ventilator 40 08/11/17 08:38 79 18 40 08/11/17 08:00 78 08/11/17 08:00 15.0 40 08/11/17 06:44 74 18 40 08/11/17 05:13 76 18 40 08/11/17 04:00 98.8 78 18 122/89 100 Mechanical Ventilator 15.0 40 08/11/17 04:00 85 08/11/17 04:00 15.0 40 08/11/17 03:14 80 18 40 08/11/17 01:07 74 18 40 08/11/17 00:05 18 100 Mechanical Ventilator 15.0 40 08/11/17 00:00 76 08/11/17 00:00 40 08/11/17 00:00 98.1 80 18 105/72 100 Mechanical Ventilator 08/10/17 22:30 83 18 40 08/10/17 21:13 103 18 40 08/10/17 20:05 18 97 Mechanical Ventilator 15.0 40 08/10/17 20:00 98.1 94 18 102/55 94 Mechanical Ventilator 15.0 40 08/10/17 20:00 108 08/10/17 19:30 103 18 40 08/10/17 19:15 98.6 08/10/17 17:10 75 12 35 08/10/17 16:00 100.8 91 26 131/57 99 Mechanical Ventilator 15.0 40 08/10/17 16:00 15.0 35 08/10/17 15:27 78 8 35 Height (Feet): 5 Height (Inches): 5.00 Weight (Pounds): 141 HEENT: anicteric Respiratory/Chest: no respiratory distress Cardiovascular: regular rhythm Abdomen: soft, non tender Microbiology Date/Time Source Procedure Growth Status 08/10/17 15:45 Sputum Gram Stain - Final Resulted 08/10/17 15:45 Sputum Sputum Culture - Preliminary Resulted 08/10/17 09:45 Nasal Nares Influenza Types A,B Antigen (SVEN) - Final Complete Laboratory Tests Test 08/11/17 03:50 White Blood Count 16.1 K/UL (4.8-10.8) H Red Blood Count 2.47 M/UL (4.20-5.40) L Hemoglobin 7.4 G/DL (12.0-16.0) L Hematocrit 22.9 % (37.0-47.0) L Mean Corpuscular Volume 93 FL (80-99) Mean Corpuscular Hemoglobin 30.1 PG (27.0-31.0) Mean Corpuscular Hemoglobin Concent 32.4 G/DL (32.0-36.0) Red Cell Distribution Width 14.1 % (11.6-14.8) Platelet Count 320 K/UL (150-450) Mean Platelet Volume 6.5 FL (6.5-10.1) Neutrophils (%) (Auto) % (45.0-75.0) Lymphocytes (%) (Auto) % (20.0-45.0) Monocytes (%) (Auto) % (1.0-10.0) Eosinophils (%) (Auto) % (0.0-3.0) Basophils (%) (Auto) % (0.0-2.0) Differential Total Cells Counted 100 Neutrophils % (Manual) 79 % (45-75) H Lymphocytes % (Manual) 13 % (20-45) L Monocytes % (Manual) 7 % (1-10) Eosinophils % (Manual) 0 % (0-3) Basophils % (Manual) 0 % (0-2) Band Neutrophils 1 % (0-8) Platelet Estimate Adequate Platelet Morphology Normal Hypochromasia 3+ Anisocytosis 1+ Spherocytes 1+ Sodium Level 140 MMOL/L (136-145) Potassium Level 4.1 MMOL/L (3.5-5.1) Chloride Level 104 MMOL/L (98-107) Carbon Dioxide Level 29 MMOL/L (21-32) Anion Gap 7 mmol/L (5-15) Blood Urea Nitrogen 21 mg/dL (7-18) H Creatinine 1.5 MG/DL (0.55-1.30) H Estimat Glomerular Filtration Rate mL/min (>60) Glucose Level 89 MG/DL (74-106) Calcium Level 9.1 MG/DL (8.5-10.1) Phosphorus Level 3.3 MG/DL (2.5-4.9) Albumin 1.9 G/DL (3.4-5.0) L Current Medications Medications (Trade) Dose Ordered Sig/Torsten Route PRN Reason Start Time Stop Time Status Last Admin Dose Admin Acetaminophen (Tylenol) 650 mg Q4H PRN ORAL fever (temp>100.5F) 08/10/17 13:15 09/09/17 13:14 08/10/17 18:16 Albuterol/ Ipratropium (Albuterol/ Ipratropium) 3 ml Q4H PRN HHN Shortness of Breath 08/10/17 13:15 08/15/17 13:14 Amiodarone HCl (Cordarone) 200 mg DAILY GT 08/11/17 09:00 09/10/17 08:59 08/11/17 09:18 Dextrose (Dextrose 50%) STAT PRN IV Hypoglycemia 08/10/17 13:15 09/09/17 13:14 Heparin Sodium (Porcine) (Heparin 5000 units/ml) 5,000 units EVERY 12 HOURS SUBQ 08/10/17 21:00 09/09/17 20:59 08/11/17 09:19 Lorazepam (Ativan 2mg/ml 1ml) 2 mg Q2H PRN IV For Anxiety 08/10/17 13:15 08/17/17 13:14 08/11/17 14:20 Morphine Sulfate (Morphine Sulfate) 4 mg Q4H PRN IVP Severe Pain (Pain Scale 7-10) 12/14/17 13:15 08/17/17 13:14 Ondansetron HCl (Zofran) 4 mg Q6H PRN IVP Nausea & Vomiting 08/10/17 13:15 09/09/17 13:14 Pantoprazole (Protonix) 40 mg DAILY IV 08/11/17 09:00 09/10/17 08:59 08/11/17 09:17 Piperacillin Sod/ Tazobactam Sod 3.375 gm/Dextrose 55 ml @ 13.75 mls/ hr Q8HR IV 08/10/17 15:00 08/17/17 14:59 08/11/17 14:16 Polyethylene Glycol (Miralax) 17 gm DAILYPRN PRN ORAL Constipation 08/10/17 13:15 09/09/17 13:14 Trazodone HCl (Desyrel) 50 mg HSPRN PRN GT insomnia 08/10/17 13:15 09/09/17 13:14 Vancomycin HCl (Vanco rx to dose) 1 ea DAILY PRN MISC PER RX PROTOCOL 08/10/17 14:15 09/09/17 14:14 Vancomycin/Sodium Chloride 250 ml @ 166.667 mls/hr Q24H IVPB 08/11/17 10:00 08/16/17 09:59 08/11/17 09:17 COLBY BRICENO M.D. Aug 11, 2017 14:57
[2017-08-11 16:58] VITALS: BP 114/62
[2017-08-11 20:00] VITALS: BP 133/68
[2017-08-11] MEDS ORDERED: Vancomycin 1 GM in D5W 275 ML IV SCH (23:00)
[2017-08-12] VITALS: BP 135/72
[2017-08-12 04:00] VITALS: BP 143/67
[2017-08-12 05:07] LABS: BASOPHILS % (AUTO) 0.5 % (0.0-2.0); EOSINOPHILS % (AUTO) 2.2 % (0.0-3.0); LYMPHOCYTES % (AUTO) 17.2 % (20.0-45.0); MEAN CORPUSCULAR HEMOGLOBIN 31.3 PG (27.0-31.0); MEAN CORPUSCULAR HGB CONC 33.7 G/DL (32.0-36.0); MEAN CORPUSCULAR VOLUME 93 FL (80-99); MEAN PLATELET VOLUME 6.6 FL (6.5-10.1); MONOCYTES % (AUTO) 11.4 % (1.0-10.0); NEUTROPHILS % (AUTO) 68.7 % (45.0-75.0); PLATELET COUNT 348 K/UL (150-450); RED BLOOD COUNT 3.01 M/UL (4.20-5.40); RED CELL DISTRIBUTION WIDTH 14.5 % (11.6-14.8); WHITE BLOOD COUNT 12.4 K/UL (4.8-10.8)
[2017-08-12 05:25] LABS: ANION GAP 6 mmol/L (5-15); CALCIUM 9.2 MG/DL (8.5-10.1); CARBON DIOXIDE 30 MMOL/L (21-32); CHLORIDE 106 MMOL/L (98-107); POTASSIUM 3.9 MMOL/L (3.5-5.1); SODIUM 142 MMOL/L (136-145)
[2017-08-12] MEDS: Piperacillin/Tazobactam 3.375 GM in D5W 55 ML IV SCH ×3 (05:49→21:34)
[2017-08-12 08:00] VITALS: BP 136/74
[2017-08-12] MEDS: Pantoprazole Inj IV SCH (08:18)
[2017-08-12] MEDS: LORazepam Inj 2mg/ml 1ml IV PRN (08:20)
[2017-08-12] MEDS: Amiodarone 200mg tab GT SCH (08:20)
[2017-08-12] MEDS: Heparin 5000 units/ml inj SUBQ SCH ×2 (08:21→21:37)
--- NOTE | 2017-08-12 09:37 | Pulmonology Progress Note ---
Assessment/Plan Assessment/Plan ASSESSMENT Sepsis PNA acute on chronic respiratory failure VDRF/trach status ATN HTN dysphagia, G tube acute anemia requiring blood transfusion COPD hx of CVA seizure disorder schizophrenia PAF functional quadriplegia severe protein calorie malnutrition PLAN OF CARE MARTHA Vent [facility] care pulmonary toilet baseline ABG in am and titrate settings as needed fup with CXR on Monday Abx ID follows fup with cx , sputum cx + GNB, urine cx negative, blood cx prel negative Influenza screen test negative Strict aspiration precautions GT feeding, monitor tolerance Monitor HH, anemia w/up, HH better after blood transfusion DVT GI prophylaxis Bowel regimen Venous Duplex BLE seizure precautions, continue Depakote, continue Amiodarone creat better after 1 L NS bolus monitor closely renal parameters, lytes, correct as needed avoid nephrotoxic case discussed and evaluated by supervising physician Subjective Allergies: Coded Allergies: ASPIRIN (Verified Allergy, Unknown, 07/07/17) Subjective leukocytosis trendign down,afebrile HH better after blood transfusion creat down to normal no signs of respiratory distress Objective Last 24 Hour Vital Signs Date Time Temp Pulse Resp B/P (MAP) Pulse Ox O2 Delivery O2 Flow Rate FiO2 08/12/17 09:00 80 18 40 08/12/17 08:00 15.0 40 08/12/17 08:00 99.5 79 22 136/74 100 Mechanical Ventilator 40 08/12/17 06:35 76 20 40 08/12/17 05:15 78 18 40 08/12/17 04:00 15.0 40 08/12/17 04:00 99.1 86 22 143/67 99 Mechanical Ventilator 40 08/12/17 04:00 98 08/12/17 02:56 77 18 40 08/12/17 00:47 96 24 40 08/12/17 00:00 83 08/12/17 00:00 98.4 83 21 135/72 100 Mechanical Ventilator 40 08/12/17 00:00 15.0 40 08/11/17 22:48 94 20 40 08/11/17 21:05 79 19 40 08/11/17 20:00 98.3 76 18 133/68 100 Mechanical Ventilator 40 08/11/17 20:00 15.0 40 08/11/17 20:00 71 08/11/17 19:09 78 18 40 08/11/17 17:01 72 18 40 08/11/17 16:58 98.2 71 18 114/62 99 Mechanical Ventilator 40 08/11/17 16:33 15.0 40 08/11/17 16:00 72 08/11/17 14:46 75 18 40 08/11/17 12:50 72 18 40 08/11/17 12:36 70 08/11/17 12:00 98.3 85 18 125/65 100 Mechanical Ventilator 40 08/11/17 12:00 15.0 40 08/11/17 10:57 76 18 40 Objective General Appearance: no acute distress, chronically, ill, bedridden, vent dependent female in [facility] Vent AC 600-40-18 HEENT: normocephalic, atraumatic, anicteric, status post trach - Portex#8, secretions moderate, yellow, thick Respiratory/Chest: lungs clear, no respiratory distress, no accessory muscle use Cardiovascular: normal rate, regular rhythm - SR on tele Abdomen: normal bowel sounds, soft, non tender, G tube Extremities: other - spastic LE Neurologic/Psychiatric: abnormal gait, open eyes spontaneously and to response to touch, not responding to verbal commands, Musculoskeletal: atrophy - BLE Microbiology Date/Time Source Procedure Growth Status 08/10/17 09:30 Blood Blood Culture - Preliminary NO GROWTH AFTER 24 HOURS Resulted 08/10/17 09:12 Blood Blood Culture - Preliminary NO GROWTH AFTER 24 HOURS Resulted 08/10/17 15:45 Sputum Gram Stain - Final Resulted 08/10/17 15:45 Sputum Culture - Preliminary Gram Negative Bacillus 1 Resulted 08/10/17 10:10 Nasal Nares MRSA Culture - Final Staphylococcus Aureus - Mrsa Complete 08/10/17 09:45 Nasal Nares Influenza Types A,B Antigen (SVEN) - Final Complete 08/10/17 09:12 Indwelling Cath Urine Culture - Preliminary NO GROWTH Resulted Laboratory Tests 08/12/17 03:15: White Blood Count 12.4H, Red Blood Count 3.01L, Hemoglobin 9.4L, Hematocrit 28.0L, Mean Corpuscular Volume 93, Mean Corpuscular Hemoglobin 31.3H, Mean Corpuscular Hemoglobin Concent 33.7, Red Cell Distribution Width 14.5, Platelet Count 348, Mean Platelet Volume 6.6, Neutrophils (%) (Auto) 68.7, Lymphocytes (% ) (Auto) 17.2L, Monocytes (%) (Auto) 11.4H, Eosinophils (%) (Auto) 2.2, Basophils (%) (Auto) 0.5, Sodium Level 142, Potassium Level 3.9, Chloride Level 106, Carbon Dioxide Level 30, Anion Gap 6, Blood Urea Nitrogen 14, Creatinine 1.0, Estimat Glomerular Filtration Rate , Glucose Level 83, Calcium Level 9.2 Current Medications Medications (Trade) Dose Ordered Sig/Torsten Route PRN Reason Start Time Stop Time Status Last Admin Dose Admin Acetaminophen (Tylenol) 650 mg Q4H PRN ORAL fever (temp>100.5F) 08/10/17 13:15 09/09/17 13:14 08/10/17 18:16 Albuterol/ Ipratropium (Albuterol/ Ipratropium) 3 ml Q4H PRN HHN Shortness of Breath 08/10/17 13:15 08/15/17 13:14 Amiodarone HCl (Cordarone) 200 mg DAILY GT 08/11/17 09:00 09/10/17 08:59 08/12/17 08:20 Dextrose (Dextrose 50%) STAT PRN IV Hypoglycemia 08/10/17 13:15 09/09/17 13:14 Heparin Sodium (Porcine) (Heparin 5000 units/ml) 5,000 units EVERY 12 HOURS SUBQ 08/10/17 21:00 09/09/17 20:59 08/12/17 08:21 Lorazepam (Ativan 2mg/ml 1ml) 2 mg Q2H PRN IV For Anxiety 08/10/17 13:15 08/17/17 13:14 08/12/17 08:20 Morphine Sulfate (Morphine Sulfate) 4 mg Q4H PRN IVP Severe Pain (Pain Scale 7-10) 08/10/17 13:15 08/17/17 13:14 Ondansetron HCl (Zofran) 4 mg Q6H PRN IVP Nausea & Vomiting 08/10/17 13:15 09/09/17 13:14 Pantoprazole (Protonix) 40 mg DAILY IV 08/11/17 09:00 09/10/17 08:59 08/12/17 08:18 Piperacillin Sod/ Tazobactam Sod 3.375 gm/Dextrose 55 ml @ 13.75 mls/ hr Q8HR IV 08/10/17 15:00 08/17/17 14:59 12/16/17 05:49 Polyethylene Glycol (Miralax) 17 gm DAILYPRN PRN ORAL Constipation 08/10/17 13:15 09/09/17 13:14 Trazodone HCl (Desyrel) 50 mg HSPRN PRN GT insomnia 08/10/17 13:15 09/09/17 13:14 Vancomycin HCl (Vanco rx to dose) 1 ea DAILY PRN MISC PER RX PROTOCOL 08/10/17 14:15 09/09/17 14:14 Vancomycin/Sodium Chloride 250 ml @ 166.667 mls/hr Q24H IVPB 08/11/17 10:00 08/16/17 09:59 08/11/17 09:17 Tatiana Ramos NP (Vanchtein) Aug 12, 2017 09:37
[2017-08-12] MEDS: Vancomycin 750mg/NS 250ml IVPB SCH (10:02)
[2017-08-12 11:44] LABS: ABG ALLEN TEST POSITIVE; ABG BASE EXCESS 1.4; ABG PCO2 45.7 mmHg (35.0-45.0)
[2017-08-12 12:00] VITALS: BP 141/73
--- NOTE | 2017-08-12 14:18 | Infectious Diseases Prog Note ---
Assessment/Plan Assessment/Plan ASSESSMENT: Fever, SP Leukocytosis , improving Sepsis. improving Probable ventilator associated pneumonia. ScxL: GNR History of recent multidrug-resistant Acinetobacter pneumonia. Hypertension. History of seizure disorder. Ventilator-dependent respiratory failure. History of lower extremity DVT. History of PEG and trach placement PLAN: continue the patient on vancomycin and Zosyn d# 3 Monitor CBC. Monitor BMP. Monitor cultures (blood, sputum and urine). Monitor chest x-ray. Subjective Constitutional: Denies: no symptoms, fever, chills, fatigue, anorexia, drenching sweats, other Allergies: Coded Allergies: ASPIRIN (Verified Allergy, Unknown, 07/07/17) Objective Vital Signs Last 24 Hour Vital Signs Date Time Temp Pulse Resp B/P (MAP) Pulse Ox O2 Delivery O2 Flow Rate FiO2 08/12/17 12:58 82 18 35 08/12/17 12:00 58 08/12/17 12:00 98.6 89 18 141/73 100 Mechanical Ventilator 35 08/12/17 12:00 15.0 35 08/12/17 11:49 80 18 35 08/12/17 10:45 78 18 40 08/12/17 09:00 80 18 40 08/12/17 08:00 15.0 40 08/12/17 08:00 77 08/12/17 08:00 99.5 79 22 136/74 100 Mechanical Ventilator 40 08/12/17 06:35 76 20 40 08/12/17 05:15 78 18 40 08/12/17 04:00 15.0 40 08/12/17 04:00 99.1 86 22 143/67 99 Mechanical Ventilator 40 08/12/17 04:00 98 08/12/17 02:56 77 18 40 08/12/17 00:47 96 24 40 08/12/17 00:00 83 08/12/17 00:00 98.4 83 21 135/72 100 Mechanical Ventilator 40 08/12/17 00:00 15.0 40 08/11/17 22:48 94 20 40 08/11/17 21:05 79 19 40 08/11/17 20:00 98.3 76 18 133/68 100 Mechanical Ventilator 40 08/11/17 20:00 15.0 40 08/11/17 20:00 71 08/11/17 19:09 78 18 40 08/11/17 17:01 72 18 40 12/15/17 16:58 98.2 71 18 114/62 99 Mechanical Ventilator 40 08/11/17 16:33 15.0 40 08/11/17 16:00 72 08/11/17 14:46 75 18 40 Height (Feet): 5 Height (Inches): 5.00 Weight (Pounds): 141 HEENT: anicteric Respiratory/Chest: no respiratory distress Cardiovascular: regularly irregular Abdomen: non distended Microbiology Date/Time Source Procedure Growth Status 08/10/17 09:30 Blood Blood Culture - Preliminary NO GROWTH AFTER 24 HOURS Resulted 08/10/17 09:12 Blood Blood Culture - Preliminary NO GROWTH AFTER 24 HOURS Resulted 08/10/17 15:45 Sputum Gram Stain - Final Resulted 08/10/17 15:45 Sputum Culture - Preliminary Gram Negative Bacillus 1 Resulted 08/10/17 10:10 Nasal Nares MRSA Culture - Final Staphylococcus Aureus - Mrsa Complete 08/10/17 09:45 Nasal Nares Influenza Types A,B Antigen (SVEN) - Final Complete 08/10/17 09:12 Indwelling Cath Urine Culture - Preliminary NO GROWTH Resulted Laboratory Tests Test 08/12/17 03:15 08/12/17 11:36 White Blood Count 12.4 K/UL (4.8-10.8) H Red Blood Count 3.01 M/UL (4.20-5.40) L Hemoglobin 9.4 G/DL (12.0-16.0) L Hematocrit 28.0 % (37.0-47.0) L Mean Corpuscular Volume 93 FL (80-99) Mean Corpuscular Hemoglobin 31.3 PG (27.0-31.0) H Mean Corpuscular Hemoglobin Concent 33.7 G/DL (32.0-36.0) Red Cell Distribution Width 14.5 % (11.6-14.8) Platelet Count 348 K/UL (150-450) Mean Platelet Volume 6.6 FL (6.5-10.1) Neutrophils (%) (Auto) 68.7 % (45.0-75.0) Lymphocytes (%) (Auto) 17.2 % (20.0-45.0) L Monocytes (%) (Auto) 11.4 % (1.0-10.0) H Eosinophils (%) (Auto) 2.2 % (0.0-3.0) Basophils (%) (Auto) 0.5 % (0.0-2.0) Sodium Level 142 MMOL/L (136-145) Potassium Level 3.9 MMOL/L (3.5-5.1) Chloride Level 106 MMOL/L (98-107) Carbon Dioxide Level 30 MMOL/L (21-32) Anion Gap 6 mmol/L (5-15) Blood Urea Nitrogen 14 mg/dL (7-18) Creatinine 1.0 MG/DL (0.55-1.30) Estimat Glomerular Filtration Rate mL/min (>60) Glucose Level 83 MG/DL (74-106) Calcium Level 9.2 MG/DL (8.5-10.1) Arterial Blood pH 7.385 (7.350-7.450) Arterial Blood Partial Pressure CO2 45.7 mmHg (35.0-45.0) H Arterial Blood Partial Pressure O2 137.4 mmHg (75.0-100.0) H Arterial Blood HCO3 26.7 mmol/L (22.0-26.0) H Arterial Blood Oxygen Saturation 98.3 % (92.0-98.0) H Arterial Blood Base Excess 1.4 Luís Test Positive Current Medications Medications (Trade) Dose Ordered Sig/Torsten Route PRN Reason Start Time Stop Time Status Last Admin Dose Admin Acetaminophen (Tylenol) 650 mg Q4H PRN ORAL fever (temp>100.5F) 08/10/17 13:15 09/09/17 13:14 08/10/17 18:16 Albuterol/ Ipratropium (Albuterol/ Ipratropium) 3 ml Q4H PRN HHN Shortness of Breath 08/10/17 13:15 08/15/17 13:14 Amiodarone HCl (Cordarone) 200 mg DAILY GT 08/11/17 09:00 09/10/17 08:59 08/12/17 08:20 Dextrose (Dextrose 50%) STAT PRN IV Hypoglycemia 08/10/17 13:15 09/09/17 13:14 Heparin Sodium (Porcine) (Heparin 5000 units/ml) 5,000 units EVERY 12 HOURS SUBQ 08/10/17 21:00 09/09/17 20:59 08/12/17 08:21 Lorazepam (Ativan 2mg/ml 1ml) 2 mg Q2H PRN IV For Anxiety 08/10/17 13:15 08/17/17 13:14 08/12/17 08:20 Morphine Sulfate (Morphine Sulfate) 4 mg Q4H PRN IVP Severe Pain (Pain Scale 7-10) 08/10/17 13:15 08/17/17 13:14 Ondansetron HCl (Zofran) 4 mg Q6H PRN IVP Nausea & Vomiting 08/10/17 13:15 09/09/17 13:14 Pantoprazole (Protonix) 40 mg DAILY IV 08/11/17 09:00 09/10/17 08:59 08/12/17 08:18 Piperacillin Sod/ Tazobactam Sod 3.375 gm/Dextrose 55 ml @ 13.75 mls/ hr Q8HR IV 08/10/17 15:00 08/17/17 14:59 08/12/17 13:19 Polyethylene Glycol (Miralax) 17 gm DAILYPRN PRN ORAL Constipation 08/10/17 13:15 09/09/17 13:14 Trazodone HCl (Desyrel) 50 mg HSPRN PRN GT insomnia 08/10/17 13:15 09/09/17 13:14 Vancomycin HCl (Vanco rx to dose) 1 ea DAILY PRN MISC PER RX PROTOCOL 08/10/17 14:15 09/09/17 14:14 Vancomycin/Sodium Chloride 250 ml @ 166.667 mls/hr Q24H IVPB 08/11/17 10:00 08/16/17 09:59 08/12/17 10:02 COLBY BRICENO M.D. Aug 12, 2017 14:18
[2017-08-12 16:00] VITALS: BP 148/64
[2017-08-12 20:00] VITALS: BP 143/85
[2017-08-13] VITALS: BP 158/83
[2017-08-13] MEDS: LORazepam Inj 2mg/ml 1ml IV PRN ×2 (02:13→13:33)
[2017-08-13 04:00] VITALS: BP 149/75
[2017-08-13 04:43] LABS: BASOPHILS % (AUTO) 1.6 % (0.0-2.0); EOSINOPHILS % (AUTO) 2.6 % (0.0-3.0); LYMPHOCYTES % (AUTO) 16.3 % (20.0-45.0); MEAN CORPUSCULAR HEMOGLOBIN 30.5 PG (27.0-31.0); MEAN CORPUSCULAR VOLUME 92 FL (80-99); MEAN PLATELET VOLUME 6.3 FL (6.5-10.1); MONOCYTES % (AUTO) 10.5 % (1.0-10.0); NEUTROPHILS % (AUTO) 68.9 % (45.0-75.0); PLATELET COUNT 365 K/UL (150-450); RED BLOOD COUNT 2.77 M/UL (4.20-5.40); RED CELL DISTRIBUTION WIDTH 14.3 % (11.6-14.8); WHITE BLOOD COUNT 10.6 K/UL (4.8-10.8)
[2017-08-13 05:28] LABS: ANION GAP 8 mmol/L (5-15); CALCIUM 8.9 MG/DL (8.5-10.1); CARBON DIOXIDE 28 MMOL/L (21-32); CHLORIDE 107 MMOL/L (98-107); FERRITIN 990 NG/ML (8-388); POTASSIUM 3.7 MMOL/L (3.5-5.1); SODIUM 143 MMOL/L (136-145)
[2017-08-13 05:35] LABS: IRON 28 ug/dL (50-175); TOTAL IRON BINDING CAPACITY 175 ug/dL (250-450)
[2017-08-13] MEDS: Piperacillin/Tazobactam 3.375 GM in D5W 55 ML IV SCH ×3 (05:38→21:41)
[2017-08-13 08:00] VITALS: BP 144/78
[2017-08-13 08:12] LABS: ABG BASE EXCESS 1.7; ABG PCO2 38.8 mmHg (35.0-45.0)
--- NOTE | 2017-08-13 08:12 | Pulmonology Progress Note ---
Assessment/Plan Assessment/Plan ASSESSMENT Sepsis PNA acute on chronic respiratory failure VDRF/trach status ATN HTN dysphagia, G tube acute anemia requiring blood transfusion COPD hx of CVA seizure disorder schizophrenia PAF functional quadriplegia severe protein calorie malnutrition PLAN OF CARE MARTHA Vent [facility] care pulmonary toilet baseline ABG stable on current settings, keep as is and titrate as needed fup with CXR on Monday Abx ID follows fup with cx , sputum cx + GNB, urine cx negative, blood cx prel negative Influenza screen test negative Strict aspiration precautions GT feeding, monitor tolerance Monitor HH, goal to keep above 8 anemia w/up c/w anemia of chronic disease, high ferritin, HH at baseline after blood transfusion DVT GI prophylaxis Bowel regimen Venous Duplex BLE seizure precautions, continue Depakote, continue Amiodarone creat stable after 1 L NS bolus monitor closely renal parameters, lytes, correct as needed avoid nephrotoxic DNR status case discussed and evaluated by supervising physician Subjective Allergies: Coded Allergies: ASPIRIN (Verified Allergy, Unknown, 07/07/17) Subjective leukocytosis resolved, afebrile HH at baseline after blood transfusion creat down to normal no signs of respiratory distress Objective Last 24 Hour Vital Signs Date Time Temp Pulse Resp B/P (MAP) Pulse Ox O2 Delivery O2 Flow Rate FiO2 08/13/17 08:00 15.0 35 08/13/17 06:59 64 18 35 08/13/17 05:20 72 18 35 08/13/17 04:00 15.0 35 08/13/17 04:00 66 08/13/17 04:00 98.8 82 25 149/75 100 Mechanical Ventilator 35 08/13/17 02:59 76 18 35 08/13/17 01:27 73 18 35 08/13/17 00:00 99.1 86 25 158/83 100 Mechanical Ventilator 35 08/13/17 00:00 72 08/12/17 23:18 75 18 35 08/12/17 21:25 76 19 35 08/12/17 20:00 86 08/12/17 20:00 98.2 71 16 143/85 100 Mechanical Ventilator 35 08/12/17 20:00 15.0 35 08/12/17 19:18 74 18 35 08/12/17 17:03 79 18 35 08/12/17 16:00 62 08/12/17 16:00 15.0 35 08/12/17 16:00 99.1 69 16 148/64 100 Mechanical Ventilator 35 08/12/17 15:24 71 18 35 08/12/17 12:58 82 18 35 08/12/17 12:00 58 08/12/17 12:00 98.6 89 18 141/73 100 Mechanical Ventilator 35 08/12/17 12:00 15.0 35 08/12/17 11:49 80 18 35 08/12/17 10:45 78 18 40 08/12/17 09:00 80 18 40 Objective General Appearance: no acute distress, chronically, ill, bedridden, vent dependent female in [facility] Vent AC 600-40-18 HEENT: normocephalic, atraumatic, anicteric, status post trach - Portex#8, secretions moderate, yellow, thick Respiratory/Chest: lungs clear, no respiratory distress, no accessory muscle use Cardiovascular: normal rate, regular rhythm - SR on tele Abdomen: normal bowel sounds, soft, non tender, G tube Extremities: other - spastic LE Neurologic/Psychiatric: abnormal gait, open eyes spontaneously and to response to touch, not responding to verbal commands, Musculoskeletal: atrophy - BLE Microbiology Date/Time Source Procedure Growth Status 08/10/17 09:30 Blood Blood Culture - Preliminary NO GROWTH AFTER 48 HOURS Resulted 08/10/17 09:12 Blood Blood Culture - Preliminary NO GROWTH AFTER 48 HOURS Resulted 08/10/17 15:45 Sputum Gram Stain - Final Resulted 08/10/17 15:45 Sputum Culture - Preliminary Gram Negative Bacillus 1 Resulted 08/10/17 10:10 Nasal Nares MRSA Culture - Final Staphylococcus Aureus - Mrsa Complete 08/10/17 09:45 Nasal Nares Influenza Types A,B Antigen (SVEN) - Final Complete 08/10/17 09:12 Indwelling Cath Urine Culture - Preliminary Mixed Gram Positive Organism Resulted Laboratory Tests 08/12/17 11:36: Arterial Blood pH 7.385, Arterial Blood Partial Pressure CO2 45.7H, Arterial Blood Partial Pressure O2 137.4H, Arterial Blood HCO3 26.7H, Arterial Blood Oxygen Saturation 98.3H, Arterial Blood Base Excess 1.4, Luís Test Positive 08/13/17 03:30: White Blood Count 10.6, Red Blood Count 2.77L, Hemoglobin 8.4L, Hematocrit 25.5L , Mean Corpuscular Volume 92, Mean Corpuscular Hemoglobin 30.5, Mean Corpuscular Hemoglobin Concent 33.0, Red Cell Distribution Width 14.3, Platelet Count 365, Mean Platelet Volume 6.3L, Neutrophils (%) (Auto) 68.9, Lymphocytes ( %) (Auto) 16.3L, Monocytes (%) (Auto) 10.5H, Eosinophils (%) (Auto) 2.6, Basophils (%) (Auto) 1.6, RBC Folate Hemolysate [Pending], Red Blood Cell Folate [Pending] 08/13/17 03:55: Sodium Level 143, Potassium Level 3.7, Chloride Level 107, Carbon Dioxide Level 28, Anion Gap 8, Blood Urea Nitrogen 11, Creatinine 1.0, Estimat Glomerular Filtration Rate , Glucose Level 92, Calcium Level 8.9, Iron Level 28L, Total Iron Binding Capacity 175L, Percent Iron Saturation 16, Unsaturated Iron Binding 147, Ferritin 990H, Vitamin B12 Level 1541H Current Medications Medications (Trade) Dose Ordered Sig/Torsten Route PRN Reason Start Time Stop Time Status Last Admin Dose Admin Acetaminophen (Tylenol) 650 mg Q4H PRN ORAL fever (temp>100.5F) 08/10/17 13:15 09/09/17 13:14 08/10/17 18:16 Albuterol/ Ipratropium (Albuterol/ Ipratropium) 3 ml Q4H PRN HHN Shortness of Breath 08/10/17 13:15 08/15/17 13:14 Amiodarone HCl (Cordarone) 200 mg DAILY GT 08/11/17 09:00 09/10/17 08:59 08/12/17 08:20 Dextrose (Dextrose 50%) STAT PRN IV Hypoglycemia 08/10/17 13:15 09/09/17 13:14 Heparin Sodium (Porcine) (Heparin 5000 units/ml) 5,000 units EVERY 12 HOURS SUBQ 08/10/17 21:00 09/09/17 20:59 08/12/17 21:37 Lorazepam (Ativan 2mg/ml 1ml) 2 mg Q2H PRN IV For Anxiety 08/10/17 13:15 08/17/17 13:14 08/13/17 02:13 Morphine Sulfate (Morphine Sulfate) 4 mg Q4H PRN IVP Severe Pain (Pain Scale 7-10) 08/10/17 13:15 08/17/17 13:14 Ondansetron HCl (Zofran) 4 mg Q6H PRN IVP Nausea & Vomiting 08/10/17 13:15 09/09/17 13:14 Pantoprazole (Protonix) 40 mg DAILY IV 08/11/17 09:00 09/10/17 08:59 08/12/17 08:18 Piperacillin Sod/ Tazobactam Sod 3.375 gm/Dextrose 55 ml @ 13.75 mls/ hr Q8HR IV 08/10/17 15:00 08/17/17 14:59 08/13/17 05:38 Polyethylene Glycol (Miralax) 17 gm DAILYPRN PRN ORAL Constipation 08/10/17 13:15 09/09/17 13:14 Trazodone HCl (Desyrel) 50 mg HSPRN PRN GT insomnia 08/10/17 13:15 09/09/17 13:14 Vancomycin HCl (Vanco rx to dose) 1 ea DAILY PRN MISC PER RX PROTOCOL 08/10/17 14:15 09/09/17 14:14 Vancomycin/Sodium Chloride 250 ml @ 166.667 mls/hr Q24H IVPB 08/11/17 10:00 08/16/17 09:59 08/12/17 10:02 Tatiana Ramos NP (Vanchtein) Aug 13, 2017 08:12
[2017-08-13 08:13] LABS: ABG ALLEN TEST POSITIVE
[2017-08-13] MEDS: Pantoprazole Inj IV SCH (08:13)
[2017-08-13] MEDS: Amiodarone 200mg tab GT SCH (08:13)
[2017-08-13] MEDS: Heparin 5000 units/ml inj SUBQ SCH ×2 (08:15→21:30)
[2017-08-13] MEDS: Vancomycin 750mg/NS 250ml IVPB SCH (10:00)
[2017-08-13] MEDS ORDERED: Vancomycin 500mg/D5W 110ml IVPB SCH ×2 (11:00)
[2017-08-13 12:00] VITALS: BP 143/77
[2017-08-13] MEDS ORDERED: Albuterol/Ipratropium 3ml neb HHN PRN (12:00)
--- NOTE | 2017-08-13 14:49 | Cardiology Report ---
APPROVED REPORT EKG Measurement Heart [id number] Normal sinus rhythm Cannot rule out Inferior infarct, age undetermined Abnormal ECG
[2017-08-13 16:00] VITALS: BP 131/75
[2017-08-13] MEDS ORDERED: NS 500ML ONE (17:31)
[2017-08-13 20:00] VITALS: BP 158/87
[2017-08-14] VITALS: BP 148/58
[2017-08-14] MEDS ORDERED: Vancomycin 500mg/D5W 110ml IVPB SCH ×2 (02:00)
[2017-08-14 04:00] VITALS: BP 139/74
[2017-08-14 04:35] LABS: BASOPHILS % (AUTO) 1.4 % (0.0-2.0); EOSINOPHILS % (AUTO) 2.7 % (0.0-3.0); LYMPHOCYTES % (AUTO) 17.5 % (20.0-45.0); MEAN CORPUSCULAR HEMOGLOBIN 30.5 PG (27.0-31.0); MEAN CORPUSCULAR HGB CONC 33.2 G/DL (32.0-36.0); MEAN CORPUSCULAR VOLUME 92 FL (80-99); MEAN PLATELET VOLUME 6.1 FL (6.5-10.1); MONOCYTES % (AUTO) 11.3 % (1.0-10.0); PLATELET COUNT 400 K/UL (150-450); RED BLOOD COUNT 2.93 M/UL (4.20-5.40); WHITE BLOOD COUNT 11.8 K/UL (4.8-10.8)
[2017-08-14 04:51] LABS: ANION GAP 8 mmol/L (5-15); CALCIUM 9.1 MG/DL (8.5-10.1); CARBON DIOXIDE 28 MMOL/L (21-32); CHLORIDE 106 MMOL/L (98-107); POTASSIUM 3.3 MMOL/L (3.5-5.1); SODIUM 142 MMOL/L (136-145)
[2017-08-14] MEDS: Piperacillin/Tazobactam 3.375 GM in D5W 55 ML IV SCH (05:38)
[2017-08-14 08:00] VITALS: BP 140/66
[2017-08-14] MEDS ORDERED: Potassium Chloride 40 MEQ in Sodium Chloride 500ML 550 ML IVPB ONE (08:00)
--- NOTE | 2017-08-14 08:16 | General Progress Note ---
Assessment/Plan Status: stable Assessment/Plan Sepsis PNA acute on chronic respiratory failure VDRF/trach status ATN HTN dysphagia, G tube acute anemia requiring blood transfusion COPD hx of CVA seizure disorder schizophrenia PAF functional quadriplegia severe protein calorie malnutrition PLAN OF CARE DNR status current ID management. Once clear, december followup as out patient Subjective Allergies: Coded Allergies: ASPIRIN (Verified Allergy, Unknown, 07/07/17) Objective Last 24 Hour Vital Signs Date Time Temp Pulse Resp B/P (MAP) Pulse Ox O2 Delivery O2 Flow Rate FiO2 08/14/17 07:39 84 18 30 08/14/17 05:31 72 18 35 08/14/17 04:00 98.4 86 28 139/74 99 Mechanical Ventilator 30 08/14/17 04:00 76 08/14/17 04:00 15.0 30 08/14/17 03:29 78 18 35 08/14/17 01:26 67 18 35 08/14/17 00:00 99.0 71 28 148/58 99 Mechanical Ventilator 30 08/14/17 00:00 15.0 30 08/14/17 00:00 58 08/13/17 23:48 72 20 35 08/13/17 21:00 15.0 30 08/13/17 20:38 78 22 35 08/13/17 20:15 74 19 35 08/13/17 20:00 76 08/13/17 20:00 98.3 87 28 158/87 99 Mechanical Ventilator 30 08/13/17 16:55 75 21 35 08/13/17 16:00 60 08/13/17 16:00 98.2 82 18 131/75 99 Mechanical Ventilator 30 08/13/17 16:00 15.0 30 08/13/17 14:53 67 18 35 08/13/17 12:47 74 18 35 08/13/17 12:00 57 08/13/17 12:00 98.2 72 18 143/77 100 Mechanical Ventilator 30 08/13/17 12:00 15.0 30 08/13/17 10:53 75 18 35 08/13/17 09:12 60 18 35 08/13/17 08:27 Laboratory Tests 08/13/17 09:00: Vancomycin Level Trough 7.8 08/14/17 03:45: White Blood Count 11.8H, Red Blood Count 2.93L, Hemoglobin 8.9L, Hematocrit 26.8L, Mean Corpuscular Volume 92, Mean Corpuscular Hemoglobin 30.5, Mean Corpuscular Hemoglobin Concent 33.2, Red Cell Distribution Width 14.0, Platelet Count 400, Mean Platelet Volume 6.1L, Neutrophils (%) (Auto) 67.0, Lymphocytes ( %) (Auto) 17.5L, Monocytes (%) (Auto) 11.3H, Eosinophils (%) (Auto) 2.7, Basophils (%) (Auto) 1.4, Sodium Level 142, Potassium Level 3.3L, Chloride Level 106, Carbon Dioxide Level 28, Anion Gap 8, Blood Urea Nitrogen 9, Creatinine 1.0, Estimat Glomerular Filtration Rate , Glucose Level 112H, Calcium Level 9.1 Height (Feet): 5 Height (Inches): 5.00 Weight (Pounds): 141 General Appearance: no apparent distress EENT: other - Trach in place Neck: supple Cardiovascular: normal rate Respiratory/Chest: rhonchi - bilaterally Abdomen: soft Extremities: other - limited eval. not following commands Neurologic: disoriented Naomi Landon MD Aug 14, 2017 08:16
[2017-08-14] MEDS: Pantoprazole Inj IV SCH (08:57)
[2017-08-14] MEDS: Amiodarone 200mg tab GT SCH (08:57)
[2017-08-14] MEDS: Heparin 5000 units/ml inj SUBQ SCH ×2 (08:58→21:03)
--- NOTE | 2017-08-14 10:16 | Pulmonology Progress Note ---
Assessment/Plan Problems: (1) Pneumonia (2) Sepsis (3) Tracheostomy care (4) Seizure disorder (5) Respiratory failure (6) Dysphagia (7) Acute and chronic respiratory failure (8) Fever Assessment/Plan -Optimize pulmonary hygiene/mobilize as tolerated -Titrate down FiO2 to keep SaO2 > 90% -Continue ventilatory support/settings reviewed -PRN HHN's -Abx per ID -F/U C diff -Monitor volumes -DVT Px: hep SQ -DNAR -Dispo planning Subjective Interval Events: AFVSS, stable O2 needs, stable on vent, no sig secretions, + diarrhea this Allergies: Coded Allergies: ASPIRIN (Verified Allergy, Unknown, 07/07/17) Objective Last 24 Hour Vital Signs Date Time Temp Pulse Resp B/P (MAP) Pulse Ox O2 Delivery O2 Flow Rate FiO2 08/14/17 09:20 81 18 30 08/14/17 08:00 15.0 30 08/14/17 07:39 84 18 30 08/14/17 05:31 72 18 35 08/14/17 04:00 98.4 86 28 139/74 99 Mechanical Ventilator 30 08/14/17 04:00 76 08/14/17 04:00 15.0 30 08/14/17 03:29 78 18 35 08/14/17 01:26 67 18 35 08/14/17 00:00 99.0 71 28 148/58 99 Mechanical Ventilator 30 08/14/17 00:00 15.0 30 08/14/17 00:00 58 08/13/17 23:48 72 20 35 08/13/17 21:00 15.0 30 08/13/17 20:38 78 22 35 08/13/17 20:15 74 19 35 08/13/17 20:00 76 08/13/17 20:00 98.3 87 28 158/87 99 Mechanical Ventilator 30 08/13/17 16:55 75 21 35 08/13/17 16:00 60 08/13/17 16:00 98.2 82 18 131/75 99 Mechanical Ventilator 30 08/13/17 16:00 15.0 30 08/13/17 14:53 67 18 35 08/13/17 12:47 74 18 35 08/13/17 12:00 57 08/13/17 12:00 98.2 72 18 143/77 100 Mechanical Ventilator 30 08/13/17 12:00 15.0 30 08/13/17 10:53 75 18 35 General Appearance: no acute distress HEENT: status post trach Respiratory/Chest: chest wall non-tender, lungs clear, normal breath sounds, no respiratory distress Cardiovascular: normal peripheral pulses, normal rate, regular rhythm Abdomen: normal bowel sounds, soft, non tender, no organomegaly, other - GT Extremities: no cyanosis, no clubbing, no edema Laboratory Tests 08/14/17 03:45: White Blood Count 11.8H, Red Blood Count 2.93L, Hemoglobin 8.9L, Hematocrit 26.8L, Mean Corpuscular Volume 92, Mean Corpuscular Hemoglobin 30.5, Mean Corpuscular Hemoglobin Concent 33.2, Red Cell Distribution Width 14.0, Platelet Count 400, Mean Platelet Volume 6.1L, Neutrophils (%) (Auto) 67.0, Lymphocytes ( %) (Auto) 17.5L, Monocytes (%) (Auto) 11.3H, Eosinophils (%) (Auto) 2.7, Basophils (%) (Auto) 1.4, Sodium Level 142, Potassium Level 3.3L, Chloride Level 106, Carbon Dioxide Level 28, Anion Gap 8, Blood Urea Nitrogen 9, Creatinine 1.0, Estimat Glomerular Filtration Rate , Glucose Level 112H, Calcium Level 9.1 Current Medications Medications (Trade) Dose Ordered Sig/Torsten Route PRN Reason Start Time Stop Time Status Last Admin Dose Admin Acetaminophen (Tylenol) 650 mg Q4H PRN ORAL fever (temp>100.5F) 08/10/17 13:15 09/09/17 13:14 08/10/17 18:16 Albuterol/ Ipratropium (Albuterol/ Ipratropium) 3 ml Q4H PRN HHN Shortness of Breath 08/13/17 12:00 08/18/17 11:59 Amiodarone HCl (Cordarone) 200 mg DAILY GT 08/11/17 09:00 09/10/17 08:59 08/14/17 08:57 Dextrose (Dextrose 50%) STAT PRN IV Hypoglycemia 08/10/17 13:15 09/09/17 13:14 Heparin Sodium (Porcine) (Heparin 5000 units/ml) 5,000 units EVERY 12 HOURS SUBQ 08/10/17 21:00 09/09/17 20:59 08/14/17 08:58 Lorazepam (Ativan 2mg/ml 1ml) 2 mg Q2H PRN IV For Anxiety 08/10/17 13:15 08/17/17 13:14 08/13/17 13:33 Morphine Sulfate (Morphine Sulfate) 4 mg Q4H PRN IVP Severe Pain (Pain Scale 7-10) 08/10/17 13:15 08/17/17 13:14 Ondansetron HCl (Zofran) 4 mg Q6H PRN IVP Nausea & Vomiting 08/10/17 13:15 09/09/17 13:14 Pantoprazole (Protonix) 40 mg DAILY IV 08/11/17 09:00 09/10/17 08:59 08/14/17 08:57 Piperacillin Sod/ Tazobactam Sod 3.375 gm/Dextrose 55 ml @ 13.75 mls/ hr Q8HR IV 08/10/17 15:00 08/17/17 14:59 08/14/17 05:38 Polyethylene Glycol (Miralax) 17 gm DAILYPRN PRN ORAL Constipation 08/10/17 13:15 09/09/17 13:14 Potassium Chloride 40 meq/ Sodium Chloride 570 ml @ 142.5 mls/ hr ONCE ONCE IVPB 08/14/17 08:00 08/14/17 11:59 08/14/17 09:16 Trazodone HCl (Desyrel) 50 mg HSPRN PRN GT insomnia 08/10/17 13:15 09/09/17 13:14 Vancomycin HCl (Vanco rx to dose) 1 ea DAILY PRN MISC PER RX PROTOCOL 08/10/17 14:15 09/09/17 14:14 Vancomycin HCl 500 mg/Dextrose 110 ml @ 110 mls/hr Q12HR@0200,1400 IVPB 08/14/17 02:00 08/18/17 10:59 08/14/17 02:13 DIANE CARVALHO M.D. Aug 14, 2017 10:16
--- NOTE | 2017-08-14 11:41 | Infectious Diseases Prog Note ---
Assessment/Plan Assessment/Plan ASSESSMENT: Fever, SP Leukocytosis , improving Sepsis. improving Probable ventilator associated pneumonia. 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 History of seizure disorder. Ventilator-dependent respiratory failure. History of lower extremity DVT. History of PEG and trach placement PLAN: continue the patient on IV Merrem and Colistin d# 1 , DC vancomycin and Zosyn d# 5 Monitor CBC. Monitor BMP. Monitor cultures (blood, sputum and urine). Monitor chest x-ray diarrhea if 3/d will send CDiff ( Ulises RN ) Subjective Allergies: Coded Allergies: ASPIRIN (Verified Allergy, Unknown, 07/07/17) Subjective diarrhea x 2 Objective Vital Signs Last 24 Hour Vital Signs Date Time Temp Pulse Resp B/P (MAP) Pulse Ox O2 Delivery O2 Flow Rate FiO2 08/14/17 10:35 87 18 30 08/14/17 09:20 81 18 30 08/14/17 08:00 65 08/14/17 08:00 15.0 30 08/14/17 08:00 98.4 98 18 140/66 98 Mechanical Ventilator 30 08/14/17 07:39 84 18 30 08/14/17 05:31 72 18 35 08/14/17 04:00 98.4 86 28 139/74 99 Mechanical Ventilator 30 08/14/17 04:00 76 08/14/17 04:00 15.0 30 08/14/17 03:29 78 18 35 08/14/17 01:26 67 18 35 08/14/17 00:00 99.0 71 28 148/58 99 Mechanical Ventilator 30 08/14/17 00:00 15.0 30 08/14/17 00:00 58 08/13/17 23:48 72 20 35 08/13/17 21:00 15.0 30 08/13/17 20:38 78 22 35 08/13/17 20:15 74 19 35 08/13/17 20:00 76 08/13/17 20:00 98.3 87 28 158/87 99 Mechanical Ventilator 30 08/13/17 16:55 75 21 35 08/13/17 16:00 60 08/13/17 16:00 98.2 82 18 131/75 99 Mechanical Ventilator 30 08/13/17 16:00 15.0 30 08/13/17 14:53 67 18 35 08/13/17 12:47 74 18 35 08/13/17 12:00 57 08/13/17 12:00 98.2 72 18 143/77 100 Mechanical Ventilator 30 08/13/17 12:00 15.0 30 Height (Feet): 5 Height (Inches): 5.00 Weight (Pounds): 141 HEENT: anicteric Respiratory/Chest: no accessory muscle use Cardiovascular: regularly irregular Abdomen: no organomegaly Laboratory Tests Test 08/14/17 03:45 White Blood Count 11.8 K/UL (4.8-10.8) H Red Blood Count 2.93 M/UL (4.20-5.40) L Hemoglobin 8.9 G/DL (12.0-16.0) L Hematocrit 26.8 % (37.0-47.0) L Mean Corpuscular Volume 92 FL (80-99) Mean Corpuscular Hemoglobin 30.5 PG (27.0-31.0) Mean Corpuscular Hemoglobin Concent 33.2 G/DL (32.0-36.0) Red Cell Distribution Width 14.0 % (11.6-14.8) Platelet Count 400 K/UL (150-450) Mean Platelet Volume 6.1 FL (6.5-10.1) L Neutrophils (%) (Auto) 67.0 % (45.0-75.0) Lymphocytes (%) (Auto) 17.5 % (20.0-45.0) L Monocytes (%) (Auto) 11.3 % (1.0-10.0) H Eosinophils (%) (Auto) 2.7 % (0.0-3.0) Basophils (%) (Auto) 1.4 % (0.0-2.0) Sodium Level 142 MMOL/L (136-145) Potassium Level 3.3 MMOL/L (3.5-5.1) L Chloride Level 106 MMOL/L (98-107) Carbon Dioxide Level 28 MMOL/L (21-32) Anion Gap 8 mmol/L (5-15) Blood Urea Nitrogen 9 mg/dL (7-18) Creatinine 1.0 MG/DL (0.55-1.30) Estimat Glomerular Filtration Rate mL/min (>60) Glucose Level 112 MG/DL (74-106) H Calcium Level 9.1 MG/DL (8.5-10.1) Current Medications Medications (Trade) Dose Ordered Sig/Torsten Route PRN Reason Start Time Stop Time Status Last Admin Dose Admin Acetaminophen (Tylenol) 650 mg Q4H PRN ORAL fever (temp>100.5F) 08/10/17 13:15 09/09/17 13:14 08/10/17 18:16 Albuterol/ Ipratropium (Albuterol/ Ipratropium) 3 ml Q4H PRN HHN Shortness of Breath 08/13/17 12:00 08/18/17 11:59 Amiodarone HCl (Cordarone) 200 mg DAILY GT 08/11/17 09:00 09/10/17 08:59 08/14/17 08:57 Dextrose (Dextrose 50%) STAT PRN IV Hypoglycemia 08/10/17 13:15 09/09/17 13:14 Heparin Sodium (Porcine) (Heparin 5000 units/ml) 5,000 units EVERY 12 HOURS SUBQ 08/10/17 21:00 09/09/17 20:59 08/14/17 08:58 Lorazepam (Ativan 2mg/ml 1ml) 2 mg Q2H PRN IV For Anxiety 08/10/17 13:15 08/17/17 13:14 08/13/17 13:33 Morphine Sulfate (Morphine Sulfate) 4 mg Q4H PRN IVP Severe Pain (Pain Scale 7-10) 08/10/17 13:15 08/17/17 13:14 Ondansetron HCl (Zofran) 4 mg Q6H PRN IVP Nausea & Vomiting 08/10/17 13:15 09/09/17 13:14 Pantoprazole (Protonix) 40 mg DAILY IV 08/11/17 09:00 09/10/17 08:59 08/14/17 08:57 Piperacillin Sod/ Tazobactam Sod 3.375 gm/Dextrose 55 ml @ 13.75 mls/ hr Q8HR IV 08/10/17 15:00 08/17/17 14:59 08/14/17 05:38 Polyethylene Glycol (Miralax) 17 gm DAILYPRN PRN ORAL Constipation 08/10/17 13:15 09/09/17 13:14 Potassium Chloride 40 meq/ Sodium Chloride 570 ml @ 142.5 mls/ hr ONCE ONCE IVPB 08/14/17 08:00 08/14/17 11:59 08/14/17 09:16 Trazodone HCl (Desyrel) 50 mg HSPRN PRN GT insomnia 08/10/17 13:15 09/09/17 13:14 Vancomycin HCl (Vanco rx to dose) 1 ea DAILY PRN MISC PER RX PROTOCOL 08/10/17 14:15 09/09/17 14:14 Vancomycin HCl 500 mg/Dextrose 110 ml @ 110 mls/hr Q12HR@0200,1400 IVPB 08/14/17 02:00 08/18/17 10:59 08/14/17 02:13 COLBY BRICENO M.D. Aug 14, 2017 11:41
[2017-08-14 12:00] VITALS: BP 145/76
[2017-08-14] MEDS: Meropenem 1 GM in NS 55 ML IVPB SCH ×2 (13:14→22:13)
--- NOTE | 2017-08-14 14:13 | Diagnostic Imaging Report ---
Indication: Dyspnea Comparison: 08/10/2017 A single view chest radiograph was obtained. Findings: Patchy mixed interstitial alveolar infiltrates versus edema noted unchanged. The heart is enlarged. A right pleural effusion may be present. Tracheostomy again noted. IMPRESSION: Stable appearance
[2017-08-14 16:00] VITALS: BP 134/75
[2017-08-14 20:00] VITALS: BP 144/68
[2017-08-14] MEDS: Colistin for inhalation INH SCH (22:00)
[2017-08-15] VITALS: BP 156/73
[2017-08-15 04:00] VITALS: BP 154/78
[2017-08-15] MEDS: Meropenem 1 GM in NS 55 ML IVPB SCH ×3 (05:31→21:51)
[2017-08-15 05:43] LABS: ALANINE AMINOTRANSFERASE 18 U/L (12-78); ALBUMIN/GLOBULIN RATIO 0.3 (1.0-2.7); ANION GAP 8 mmol/L (5-15); ASPARTATE AMINO TRANSFERASE 18 U/L (15-37); CALCIUM 9.1 MG/DL (8.5-10.1); CARBON DIOXIDE 27 MMOL/L (21-32); CHLORIDE 109 MMOL/L (98-107); CREATININE 0.9 MG/DL (0.55-1.30); POTASSIUM 3.6 MMOL/L (3.5-5.1); SODIUM 144 MMOL/L (136-145); TOTAL PROTEIN 8.2 G/DL (6.4-8.2)
[2017-08-15 08:00] VITALS: BP 148/72
--- NOTE | 2017-08-15 08:00 | General Progress Note ---
Assessment/Plan Status: stable Assessment/Plan Sepsis PNA acute on chronic respiratory failure VDRF/trach status ATN HTN dysphagia, G tube acute anemia requiring blood transfusion COPD hx of CVA seizure disorder schizophrenia PAF functional quadriplegia severe protein calorie malnutrition PLAN OF CARE DNR status current ID management. Once clear by ID, may followup as out patient Subjective ROS Limited/Unobtainable: Yes Allergies: Coded Allergies: ASPIRIN (Verified Allergy, Unknown, 07/07/17) Objective Last 24 Hour Vital Signs Date Time Temp Pulse Resp B/P (MAP) Pulse Ox O2 Delivery O2 Flow Rate FiO2 08/15/17 07:48 65 08/15/17 07:48 15.0 30 08/15/17 05:00 66 18 30 08/15/17 04:00 15.0 30 08/15/17 04:00 61 08/15/17 04:00 99.5 68 18 154/78 98 Mechanical Ventilator 30 08/15/17 03:10 85 18 30 08/15/17 01:15 88 18 30 08/15/17 00:20 86 19 30 08/15/17 00:00 99.2 71 19 156/73 100 Mechanical Ventilator 30 08/14/17 23:55 76 08/14/17 21:10 88 18 30 08/14/17 20:00 15.0 30 08/14/17 20:00 65 08/14/17 20:00 99.1 69 18 144/68 98 Mechanical Ventilator 30 08/14/17 19:15 88 18 30 08/14/17 16:44 85 18 30 08/14/17 16:00 67 08/14/17 16:00 15.0 30 08/14/17 16:00 98.2 70 18 134/75 98 Mechanical Ventilator 30 08/14/17 14:34 79 18 30 08/14/17 12:50 72 18 30 08/14/17 12:00 59 08/14/17 12:00 98.2 76 18 145/76 99 Mechanical Ventilator 30 08/14/17 12:00 15.0 30 08/14/17 10:35 87 18 30 08/14/17 09:20 81 18 30 08/14/17 08:00 65 08/14/17 08:00 15.0 30 08/14/17 08:00 98.4 98 18 140/66 98 Mechanical Ventilator 30 Laboratory Tests 08/15/17 03:35: Sodium Level 144, Potassium Level 3.6, Chloride Level 109H, Carbon Dioxide Level 27, Anion Gap 8, Blood Urea Nitrogen 7, Creatinine 0.9, Estimat Glomerular Filtration Rate , Glucose Level 89, Calcium Level 9.1, Total Bilirubin 0.2, Aspartate Amino Transf (AST/SGOT) 18, Alanine Aminotransferase ( ALT/SGPT) 18, Alkaline Phosphatase 65, Total Protein 8.2, Albumin 1.9L, Globulin 6.3, Albumin/Globulin Ratio 0.3L, RBC Folate Hemolysate [Pending], Red Blood Cell Folate [Pending] Height (Feet): 5 Height (Inches): 5.00 Weight (Pounds): 141 General Appearance: no apparent distress EENT: PERRL/EOMI Neck: supple, other - Trach in place Cardiovascular: normal rate Respiratory/Chest: crackles/rales, rhonchi - bilaterally Abdomen: soft, other - PEG t in place Extremities: other - limited as she is not following the commands Neurologic: disoriented Naomi Landon MD Aug 15, 2017 08:00
[2017-08-15] MEDS: Heparin 5000 units/ml inj SUBQ SCH ×2 (09:20→21:12)
[2017-08-15] MEDS: Amiodarone 200mg tab GT SCH (09:21)
[2017-08-15] MEDS: Pantoprazole Inj IV SCH (09:21)
--- NOTE | 2017-08-15 09:24 | Infectious Diseases Prog Note ---
Assessment/Plan Assessment/Plan ASSESSMENT: Fever, SP Leukocytosis , improving Sepsis. improving Probable ventilator associated pneumonia. 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 diarrhea x 2 Hypertension. History of seizure disorder. Ventilator-dependent respiratory failure. History of lower extremity DVT. History of PEG and trach placement PLAN: continue the patient on IV Merrem and Colistin d# 2/ 14 12/18SP vancomycin and Zosyn d# 5 Monitor CBC. Monitor BMP. Monitor cultures (blood, ) Monitor chest x-ray diarrhea if 3/d will send CDiff ( Ulises RN ) Subjective Constitutional: Denies: no symptoms, fever, chills, fatigue, anorexia, drenching sweats, other Allergies: Coded Allergies: ASPIRIN (Verified Allergy, Unknown, 07/07/17) Subjective afebrile Objective Vital Signs Last 24 Hour Vital Signs Date Time Temp Pulse Resp B/P (MAP) Pulse Ox O2 Delivery O2 Flow Rate FiO2 08/15/17 08:52 66 18 30 08/15/17 07:48 65 08/15/17 07:48 15.0 30 08/15/17 06:50 69 18 30 08/15/17 05:00 66 18 30 08/15/17 04:00 15.0 30 08/15/17 04:00 61 08/15/17 04:00 99.5 68 18 154/78 98 Mechanical Ventilator 30 08/15/17 03:10 85 18 30 08/15/17 01:15 88 18 30 08/15/17 00:20 86 19 30 08/15/17 00:00 99.2 71 19 156/73 100 Mechanical Ventilator 30 08/14/17 23:55 76 08/14/17 21:10 88 18 30 08/14/17 20:00 15.0 30 08/14/17 20:00 65 08/14/17 20:00 99.1 69 18 144/68 98 Mechanical Ventilator 30 08/14/17 19:15 88 18 30 08/14/17 16:44 85 18 30 08/14/17 16:00 67 08/14/17 16:00 15.0 30 08/14/17 16:00 98.2 70 18 134/75 98 Mechanical Ventilator 30 08/14/17 14:34 79 18 30 08/14/17 12:50 72 18 30 08/14/17 12:00 59 08/14/17 12:00 98.2 76 18 145/76 99 Mechanical Ventilator 30 08/14/17 12:00 15.0 30 08/14/17 10:35 87 18 30 Height (Feet): 5 Height (Inches): 5.00 Weight (Pounds): 141 Laboratory Tests Test 08/15/17 03:35 Sodium Level 144 MMOL/L (136-145) Potassium Level 3.6 MMOL/L (3.5-5.1) Chloride Level 109 MMOL/L (98-107) H Carbon Dioxide Level 27 MMOL/L (21-32) Anion Gap 8 mmol/L (5-15) Blood Urea Nitrogen 7 mg/dL (7-18) Creatinine 0.9 MG/DL (0.55-1.30) Estimat Glomerular Filtration Rate mL/min (>60) Glucose Level 89 MG/DL (74-106) Calcium Level 9.1 MG/DL (8.5-10.1) Total Bilirubin 0.2 MG/DL (0.2-1.0) Aspartate Amino Transf (AST/SGOT) 18 U/L (15-37) Alanine Aminotransferase (ALT/SGPT) 18 U/L (12-78) Alkaline Phosphatase 65 U/L (46-116) Total Protein 8.2 G/DL (6.4-8.2) Albumin 1.9 G/DL (3.4-5.0) L Globulin 6.3 g/dL Albumin/Globulin Ratio 0.3 (1.0-2.7) L RBC Folate Hemolysate Pending Red Blood Cell Folate Pending Current Medications Medications (Trade) Dose Ordered Sig/Torsten Route PRN Reason Start Time Stop Time Status Last Admin Dose Admin Acetaminophen (Tylenol) 650 mg Q4H PRN ORAL fever (temp>100.5F) 08/10/17 13:15 09/09/17 13:14 08/10/17 18:16 Albuterol/ Ipratropium (Albuterol/ Ipratropium) 3 ml Q4H PRN HHN Shortness of Breath 08/13/17 12:00 08/18/17 11:59 Amiodarone HCl (Cordarone) 200 mg DAILY GT 08/11/17 09:00 09/10/17 08:59 12/19/17 09:21 Colistimethate Sodium (Colistin *inhalation use only*) 150 mg Q12HR@10,22 INH 08/14/17 22:00 08/21/17 21:59 Dextrose (Dextrose 50%) STAT PRN IV Hypoglycemia 08/10/17 13:15 09/09/17 13:14 Heparin Sodium (Porcine) (Heparin 5000 units/ml) 5,000 units EVERY 12 HOURS SUBQ 08/10/17 21:00 09/09/17 20:59 08/15/17 09:20 Lorazepam (Ativan 2mg/ml 1ml) 2 mg Q2H PRN IV For Anxiety 08/10/17 13:15 08/17/17 13:14 08/13/17 13:33 Meropenem 1 gm/ Sodium Chloride 55 ml @ 110 mls/hr Q8HR IVPB 08/14/17 14:00 08/19/17 13:59 08/15/17 05:31 Morphine Sulfate (Morphine Sulfate) 4 mg Q4H PRN IVP Severe Pain (Pain Scale 7-10) 08/10/17 13:15 08/17/17 13:14 Ondansetron HCl (Zofran) 4 mg Q6H PRN IVP Nausea & Vomiting 08/10/17 13:15 09/09/17 13:14 Pantoprazole (Protonix) 40 mg DAILY IV 08/11/17 09:00 09/10/17 08:59 08/15/17 09:21 Polyethylene Glycol (Miralax) 17 gm DAILYPRN PRN ORAL Constipation 08/10/17 13:15 09/09/17 13:14 Trazodone HCl (Desyrel) 50 mg HSPRN PRN GT insomnia 08/10/17 13:15 09/09/17 13:14 COLBY BRICENO M.D. Aug 15, 2017 09:24
--- NOTE | 2017-08-15 09:51 | Pulmonology Progress Note ---
Assessment/Plan Problems: (1) Pneumonia (2) Sepsis (3) Tracheostomy care (4) Seizure disorder (5) Respiratory failure (6) Dysphagia (7) Acute and chronic respiratory failure (8) Fever Assessment/Plan -Optimize pulmonary hygiene/mobilize as tolerated -Titrate down FiO2 to keep SaO2 > 90% -Continue ventilatory support/settings reviewed -PRN HHN's -Abx per ID -F/U C diff -Monitor volumes -DVT Px: hep SQ -DNAR -Dispo planning Subjective Allergies: Coded Allergies: ASPIRIN (Verified Allergy, Unknown, 07/07/17) Subjective No change, no cough, no SOB, no sig secretions, no F/C, aurelio TF's Objective Last 24 Hour Vital Signs Date Time Temp Pulse Resp B/P (MAP) Pulse Ox O2 Delivery O2 Flow Rate FiO2 08/15/17 08:52 66 18 30 08/15/17 08:00 98.2 65 18 148/72 100 Mechanical Ventilator 30 08/15/17 07:48 65 08/15/17 07:48 15.0 30 08/15/17 06:50 69 18 30 08/15/17 05:00 66 18 30 08/15/17 04:00 15.0 30 08/15/17 04:00 61 08/15/17 04:00 99.5 68 18 154/78 98 Mechanical Ventilator 30 08/15/17 03:10 85 18 30 08/15/17 01:15 88 18 30 08/15/17 00:20 86 19 30 08/15/17 00:00 99.2 71 19 156/73 100 Mechanical Ventilator 30 08/14/17 23:55 76 08/14/17 21:10 88 18 30 08/14/17 20:00 15.0 30 08/14/17 20:00 65 08/14/17 20:00 99.1 69 18 144/68 98 Mechanical Ventilator 30 08/14/17 19:15 88 18 30 08/14/17 16:44 85 18 30 08/14/17 16:00 67 08/14/17 16:00 15.0 30 08/14/17 16:00 98.2 70 18 134/75 98 Mechanical Ventilator 30 08/14/17 14:34 79 18 30 08/14/17 12:50 72 18 30 08/14/17 12:00 59 08/14/17 12:00 98.2 76 18 145/76 99 Mechanical Ventilator 30 08/14/17 12:00 15.0 30 08/14/17 10:35 87 18 30 General Appearance: no acute distress HEENT: status post trach Respiratory/Chest: lungs clear Cardiovascular: normal peripheral pulses, normal rate, regular rhythm Abdomen: normal bowel sounds, soft, non tender, no organomegaly, other - GT Extremities: no cyanosis, no clubbing, no edema Laboratory Tests 08/15/17 03:35: Sodium Level 144, Potassium Level 3.6, Chloride Level 109H, Carbon Dioxide Level 27, Anion Gap 8, Blood Urea Nitrogen 7, Creatinine 0.9, Estimat Glomerular Filtration Rate , Glucose Level 89, Calcium Level 9.1, Total Bilirubin 0.2, Aspartate Amino Transf (AST/SGOT) 18, Alanine Aminotransferase ( ALT/SGPT) 18, Alkaline Phosphatase 65, Total Protein 8.2, Albumin 1.9L, Globulin 6.3, Albumin/Globulin Ratio 0.3L, RBC Folate Hemolysate [Pending], Red Blood Cell Folate [Pending] Current Medications Medications (Trade) Dose Ordered Sig/Torsten Route PRN Reason Start Time Stop Time Status Last Admin Dose Admin Acetaminophen (Tylenol) 650 mg Q4H PRN ORAL fever (temp>100.5F) 08/10/17 13:15 09/09/17 13:14 08/10/17 18:16 Albuterol/ Ipratropium (Albuterol/ Ipratropium) 3 ml Q4H PRN HHN Shortness of Breath 08/13/17 12:00 08/18/17 11:59 Amiodarone HCl (Cordarone) 200 mg DAILY GT 08/11/17 09:00 09/10/17 08:59 08/15/17 09:21 Colistimethate Sodium (Colistin *inhalation use only*) 150 mg Q12HR@10,22 INH 08/14/17 22:00 08/21/17 21:59 Dextrose (Dextrose 50%) STAT PRN IV Hypoglycemia 08/10/17 13:15 09/09/17 13:14 Heparin Sodium (Porcine) (Heparin 5000 units/ml) 5,000 units EVERY 12 HOURS SUBQ 08/10/17 21:00 09/09/17 20:59 08/15/17 09:20 Lorazepam (Ativan 2mg/ml 1ml) 2 mg Q2H PRN IV For Anxiety 08/10/17 13:15 08/17/17 13:14 08/13/17 13:33 Meropenem 1 gm/ Sodium Chloride 55 ml @ 110 mls/hr Q8HR IVPB 08/14/17 14:00 08/19/17 13:59 08/15/17 05:31 Morphine Sulfate (Morphine Sulfate) 4 mg Q4H PRN IVP Severe Pain (Pain Scale 7-10) 08/10/17 13:15 08/17/17 13:14 Ondansetron HCl (Zofran) 4 mg Q6H PRN IVP Nausea & Vomiting 08/10/17 13:15 09/09/17 13:14 Pantoprazole (Protonix) 40 mg DAILY IV 08/11/17 09:00 09/10/17 08:59 08/15/17 09:21 Polyethylene Glycol (Miralax) 17 gm DAILYPRN PRN ORAL Constipation 08/10/17 13:15 09/09/17 13:14 Trazodone HCl (Desyrel) 50 mg HSPRN PRN GT insomnia 08/10/17 13:15 09/09/17 13:14 DIANE CARVALHO M.D. Aug 15, 2017 09:51
[2017-08-15] MEDS: Colistin for inhalation INH SCH ×2 (11:02→22:10)
[2017-08-15 11:12] VITALS: BP 141/69
[2017-08-15 16:00] VITALS: BP 149/66
[2017-08-15 21:00] VITALS: BP 154/63
[2017-08-16 00:56] VITALS: BP 149/69
[2017-08-16 04:00] VITALS: BP 159/59
[2017-08-16] MEDS: Meropenem 1 GM in NS 55 ML IVPB SCH ×2 (05:31→14:00)
[2017-08-16 08:00] VITALS: BP 134/77
[2017-08-16] MEDS: Amiodarone 200mg tab GT SCH (08:54)
[2017-08-16] MEDS: Pantoprazole Inj IV SCH (08:54)
[2017-08-16] MEDS: Heparin 5000 units/ml inj SUBQ SCH (08:56)
--- NOTE | 2017-08-16 09:22 | General Progress Note ---
Assessment/Plan Status: unchanged Assessment/Plan Sepsis PNA acute on chronic respiratory failure VDRF/trach status ATN HTN dysphagia, G tube acute anemia requiring blood transfusion COPD hx of CVA seizure disorder schizophrenia PAF functional quadriplegia severe protein calorie malnutrition PLAN OF CARE DNR status New Leukocytosis current ID management. Once clear by ID, may followup as out patient Subjective ROS Limited/Unobtainable: Yes Allergies: Coded Allergies: ASPIRIN (Verified Allergy, Unknown, 07/07/17) Objective Last 24 Hour Vital Signs Date Time Temp Pulse Resp B/P (MAP) Pulse Ox O2 Delivery O2 Flow Rate FiO2 08/16/17 09:08 54 18 30 08/16/17 08:00 15.0 30 08/16/17 08:00 98.1 64 20 134/77 100 Mechanical Ventilator 30 08/16/17 07:31 76 18 30 08/16/17 05:24 65 18 30 08/16/17 04:00 97.9 53 18 159/59 100 Mechanical Ventilator 30 08/16/17 04:00 74 08/16/17 04:00 15.0 30 08/16/17 03:30 72 18 30 08/16/17 01:23 65 18 30 08/16/17 00:56 98.8 69 18 149/69 96 Mechanical Ventilator 30 08/16/17 00:00 15.0 30 08/16/17 00:00 61 08/15/17 23:26 82 18 30 08/15/17 21:14 67 18 30 08/15/17 21:10 89 11 99 Mechanical Ventilator 30 08/15/17 21:00 73 18 98 Mechanical Ventilator 30 08/15/17 21:00 99.1 64 19 154/63 100 Mechanical Ventilator 30 08/15/17 20:00 69 08/15/17 20:00 15.0 30 08/15/17 19:00 73 18 30 08/15/17 17:08 69 18 30 08/15/17 16:00 97.9 66 20 149/66 100 Venturi Mask 55 08/15/17 15:58 68 08/15/17 15:58 15.0 30 08/15/17 14:51 68 18 30 08/15/17 13:25 80 18 30 08/15/17 11:12 70 08/15/17 11:12 15.0 30 08/15/17 11:12 98.0 70 20 141/69 96 Venturi Mask 55 08/15/17 11:08 87 18 30 08/15/17 11:02 83 2 100 Mechanical Ventilator 30 08/15/17 09:52 97 21 Mechanical Ventilator 15.0 40 Height (Feet): 5 Height (Inches): 5.00 Weight (Pounds): 141 General Appearance: no apparent distress Neck: other - Trached Cardiovascular: normal rate Respiratory/Chest: rhonchi - bilaterally Abdomen: soft, other - PEG in place Extremities: other - limited Neurologic: disoriented - limied eval as patinet is trached Naomi Landon MD Aug 16, 2017 09:22
[2017-08-16] MEDS: Colistin for inhalation INH SCH (10:03)
[2017-08-16 10:39] LABS: BASOPHILS % (AUTO) 1.2 % (0.0-2.0); EOSINOPHILS % (AUTO) 2.8 % (0.0-3.0); LYMPHOCYTES % (AUTO) 18.7 % (20.0-45.0); MEAN CORPUSCULAR HEMOGLOBIN 30.2 PG (27.0-31.0); MEAN CORPUSCULAR HGB CONC 32.2 G/DL (32.0-36.0); MEAN CORPUSCULAR VOLUME 94 FL (80-99); MEAN PLATELET VOLUME 5.9 FL (6.5-10.1); MONOCYTES % (AUTO) 6.4 % (1.0-10.0); NEUTROPHILS % (AUTO) 70.8 % (45.0-75.0); PLATELET COUNT 442 K/UL (150-450); RED BLOOD COUNT 3.03 M/UL (4.20-5.40); RED CELL DISTRIBUTION WIDTH 13.9 % (11.6-14.8); WHITE BLOOD COUNT 11.2 K/UL (4.8-10.8)
--- NOTE | 2017-08-16 10:48 | Infectious Diseases Prog Note ---
Assessment/Plan Assessment/Plan ASSESSMENT: Fever, SP Leukocytosis , improving Sepsis. improving Probable ventilator associated pneumonia. 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 diarrhea C Diff -ve Hypertension. History of seizure disorder Ventilator-dependent respiratory failure History of lower extremity DVT History of PEG and trach placement PLAN: continue the patient on IV Merrem and Colistin d# 3 / 14 12/18SP vancomycin and Zosyn d# 5 Monitor CBC Monitor BMP Monitor cultures (blood) Monitor chest x-ray Subjective Constitutional: Denies: no symptoms, fever, chills, fatigue, anorexia, drenching sweats, other Allergies: Coded Allergies: ASPIRIN (Verified Allergy, Unknown, 07/07/17) Subjective afebrile Objective Vital Signs Last 24 Hour Vital Signs Date Time Temp Pulse Resp B/P (MAP) Pulse Ox O2 Delivery O2 Flow Rate FiO2 08/16/17 10:31 54 19 30 08/16/17 10:13 79 20 99 Mechanical Ventilator 30 08/16/17 10:03 54 21 98 Mechanical Ventilator 30 08/16/17 09:08 54 18 30 08/16/17 08:00 15.0 30 08/16/17 08:00 98.1 64 20 134/77 100 Mechanical Ventilator 30 08/16/17 07:31 76 18 30 08/16/17 05:24 65 18 30 08/16/17 04:00 97.9 53 18 159/59 100 Mechanical Ventilator 30 08/16/17 04:00 74 08/16/17 04:00 15.0 30 08/16/17 03:30 72 18 30 08/16/17 01:23 65 18 30 08/16/17 00:56 98.8 69 18 149/69 96 Mechanical Ventilator 30 08/16/17 00:00 15.0 30 08/16/17 00:00 61 08/15/17 23:26 82 18 30 08/15/17 21:14 67 18 30 08/15/17 21:10 89 11 99 Mechanical Ventilator 30 08/15/17 21:00 73 18 98 Mechanical Ventilator 30 08/15/17 21:00 99.1 64 19 154/63 100 Mechanical Ventilator 30 08/15/17 20:00 69 08/15/17 20:00 15.0 30 08/15/17 19:00 73 18 30 08/15/17 17:08 69 18 30 08/15/17 16:00 97.9 66 20 149/66 100 Venturi Mask 55 08/15/17 15:58 68 08/15/17 15:58 15.0 30 08/15/17 14:51 68 18 30 08/15/17 13:25 80 18 30 08/15/17 11:12 70 08/15/17 11:12 15.0 30 08/15/17 11:12 98.0 70 20 141/69 96 Venturi Mask 55 08/15/17 11:08 87 18 30 08/15/17 11:02 83 2 100 Mechanical Ventilator 30 Height (Feet): 5 Height (Inches): 5.00 Weight (Pounds): 141 HEENT: mucous membranes moist Respiratory/Chest: no respiratory distress Cardiovascular: regular rhythm Abdomen: non distended Microbiology Date/Time Source Procedure Growth Status 08/15/17 10:30 Stool Clostridium difficile Toxin Assay - Final Complete Laboratory Tests Test 08/16/17 10:15 White Blood Count 11.2 K/UL (4.8-10.8) H Red Blood Count 3.03 M/UL (4.20-5.40) L Hemoglobin 9.1 G/DL (12.0-16.0) L Hematocrit 28.4 % (37.0-47.0) L Mean Corpuscular Volume 94 FL (80-99) Mean Corpuscular Hemoglobin 30.2 PG (27.0-31.0) Mean Corpuscular Hemoglobin Concent 32.2 G/DL (32.0-36.0) Red Cell Distribution Width 13.9 % (11.6-14.8) Platelet Count 442 K/UL (150-450) Mean Platelet Volume 5.9 FL (6.5-10.1) L Neutrophils (%) (Auto) 70.8 % (45.0-75.0) Lymphocytes (%) (Auto) 18.7 % (20.0-45.0) L Monocytes (%) (Auto) 6.4 % (1.0-10.0) Eosinophils (%) (Auto) 2.8 % (0.0-3.0) Basophils (%) (Auto) 1.2 % (0.0-2.0) Sodium Level Pending Potassium Level Pending Chloride Level Pending Carbon Dioxide Level Pending Blood Urea Nitrogen Pending Creatinine Pending Estimat Glomerular Filtration Rate Pending Glucose Level Pending Calcium Level Pending Magnesium Level Pending Current Medications Medications (Trade) Dose Ordered Sig/Torsten Route PRN Reason Start Time Stop Time Status Last Admin Dose Admin Acetaminophen (Tylenol) 650 mg Q4H PRN ORAL fever (temp>100.5F) 08/10/17 13:15 09/09/17 13:14 08/10/17 18:16 Albuterol/ Ipratropium (Albuterol/ Ipratropium) 3 ml Q4H PRN HHN Shortness of Breath 08/13/17 12:00 08/18/17 11:59 Amiodarone HCl (Cordarone) 200 mg DAILY GT 08/11/17 09:00 09/10/17 08:59 08/16/17 08:54 Colistimethate Sodium (Colistin *inhalation use only*) 150 mg Q12HR@10,22 INH 08/14/17 22:00 08/21/17 21:59 08/16/17 10:03 Dextrose (Dextrose 50%) STAT PRN IV Hypoglycemia 08/10/17 13:15 09/09/17 13:14 Heparin Sodium (Porcine) (Heparin 5000 units/ml) 5,000 units EVERY 12 HOURS SUBQ 08/10/17 21:00 09/09/17 20:59 08/16/17 08:56 Lorazepam (Ativan 2mg/ml 1ml) 2 mg Q2H PRN IV For Anxiety 08/10/17 13:15 08/17/17 13:14 08/13/17 13:33 Meropenem 1 gm/ Sodium Chloride 55 ml @ 110 mls/hr Q8HR IVPB 08/14/17 14:00 08/19/17 13:59 08/16/17 05:31 Morphine Sulfate (Morphine Sulfate) 4 mg Q4H PRN IVP Severe Pain (Pain Scale 7-10) 08/10/17 13:15 08/17/17 13:14 Ondansetron HCl (Zofran) 4 mg Q6H PRN IVP Nausea & Vomiting 08/10/17 13:15 09/09/17 13:14 Pantoprazole (Protonix) 40 mg DAILY IV 08/11/17 09:00 09/10/17 08:59 08/16/17 08:54 Polyethylene Glycol (Miralax) 17 gm DAILYPRN PRN ORAL Constipation 08/10/17 13:15 09/09/17 13:14 Trazodone HCl (Desyrel) 50 mg HSPRN PRN GT insomnia 08/10/17 13:15 09/09/17 13:14 COLBY BRICENO M.D. Aug 16, 2017 10:48
[2017-08-16 10:54] LABS: ANION GAP 8 mmol/L (5-15); CALCIUM 9.2 MG/DL (8.5-10.1); CARBON DIOXIDE 26 MMOL/L (21-32); CHLORIDE 110 MMOL/L (98-107); CREATININE 0.8 MG/DL (0.55-1.30); MAGNESIUM 1.6 MG/DL (1.8-2.4); POTASSIUM 3.2 MMOL/L (3.5-5.1); SODIUM 144 MMOL/L (136-145)
[2017-08-16 12:00] VITALS: BP 143/67
[2017-08-16] MEDS ORDERED: COLISTIN150 MG HHN (13:47)
[2017-08-16] MEDS ORDERED: MERREM1 GM IV (13:48)
[2017-08-16] MEDS ORDERED: NS 500ML ONE ×2 (16:19)
[2017-08-16] MEDS ORDERED: Tubing IV Secondary IV ONE (16:19)
--- NOTE | 2017-08-16 21:27 | Pulmonology Progress Note ---
Assessment/Plan Problems: (1) Pneumonia (2) Sepsis (3) Tracheostomy care (4) Seizure disorder (5) Respiratory failure (6) Dysphagia (7) Acute and chronic respiratory failure (8) Fever Assessment/Plan -Optimize pulmonary hygiene/mobilize as tolerated -Titrate down FiO2 to keep SaO2 > 90% -Continue ventilatory support/settings reviewed -PRN HHN's -Abx per ID -Monitor volumes -DVT Px: hep SQ -DNAR -Dispo planning Subjective Allergies: Coded Allergies: ASPIRIN (Verified Allergy, Unknown, 07/07/17) Subjective SEEN EARLIER, No change, no cough, no SOB, no sig secretions, no F/C, aurelio TF's Objective Last 24 Hour Vital Signs Date Time Temp Pulse Resp B/P (MAP) Pulse Ox O2 Delivery O2 Flow Rate FiO2 08/16/17 15:05 66 20 30 08/16/17 12:59 44 08/16/17 12:50 47 18 30 08/16/17 12:00 97.6 63 18 143/67 100 Mechanical Ventilator 30 08/16/17 12:00 15.0 30 08/16/17 10:31 54 19 30 08/16/17 10:13 79 20 99 Mechanical Ventilator 30 08/16/17 10:03 54 21 98 Mechanical Ventilator 30 08/16/17 09:08 54 18 30 08/16/17 08:00 15.0 30 08/16/17 08:00 44 08/16/17 08:00 98.1 64 20 134/77 100 Mechanical Ventilator 30 08/16/17 07:31 76 18 30 08/16/17 05:24 65 18 30 08/16/17 04:00 97.9 53 18 159/59 100 Mechanical Ventilator 30 08/16/17 04:00 74 08/16/17 04:00 15.0 30 08/16/17 03:30 72 18 30 08/16/17 01:23 65 18 30 08/16/17 00:56 98.8 69 18 149/69 96 Mechanical Ventilator 30 08/16/17 00:00 15.0 30 08/16/17 00:00 61 08/15/17 23:26 82 18 30 Intake and Output 08/15/17 08/16/17 19:00 07:00 Intake Total 560 ml 570 ml Output Total 550 ml 250 ml Balance 10 ml 320 ml Intake Free Water 200 ml 100 ml IV Total 110 ml Tube Feeding 360 ml 360 ml Output Urine Total 550 ml 250 ml # Bowel Movements 1 1 General Appearance: no acute distress HEENT: status post trach Respiratory/Chest: lungs clear Cardiovascular: normal peripheral pulses, normal rate, regular rhythm Abdomen: normal bowel sounds, soft, non tender, no organomegaly, other - GT Extremities: no cyanosis, no clubbing, no edema Microbiology Date/Time Source Procedure Growth Status 08/15/17 10:30 Stool Clostridium difficile Toxin Assay - Final Complete Laboratory Tests 08/16/17 10:15: White Blood Count 11.2H, Red Blood Count 3.03L, Hemoglobin 9.1L, Hematocrit 28.4L, Mean Corpuscular Volume 94, Mean Corpuscular Hemoglobin 30.2, Mean Corpuscular Hemoglobin Concent 32.2, Red Cell Distribution Width 13.9, Platelet Count 442, Mean Platelet Volume 5.9L, Neutrophils (%) (Auto) 70.8, Lymphocytes ( %) (Auto) 18.7L, Monocytes (%) (Auto) 6.4, Eosinophils (%) (Auto) 2.8, Basophils (%) (Auto) 1.2, Sodium Level 144, Potassium Level 3.2L, Chloride Level 110H, Carbon Dioxide Level 26, Anion Gap 8, Blood Urea Nitrogen 7, Creatinine 0.8, Estimat Glomerular Filtration Rate , Glucose Level 105, Calcium Level 9.2, Magnesium Level 1.6L DIANE CARVALHO M.D. Aug 16, 2017 21:27
--- NOTE | 2017-08-17 10:30 | Discharge Summary ---
Discharge Summary Hospital Course Date of Admission Aug 10, 2017 at 10:01 Date of Discharge Aug 16, 2017 at 16:20 Admitting Diagnosis SEPSIS HPI Symone Aragon is a 82 year old female who was admitted on Aug 10, 2017 at 10:01 for Sepsis Hospital Course [id number] Discharge Discharge Disposition Patient was discharged to SNF/Subacute Facility(03) Discharge Diagnoses: Joselin Logan NP Aug 17, 2017 10:30
--- NOTE | 2017-08-17 23:45 | Discharge Summary 2 SIG ---
DATE OF ADMISSION: 08/10/2017 DATE OF DISCHARGE: 08/16/2017 ATTENDING PHYSICIAN: Sue Yu M.D. CONSULTANTS: 1. Ricky Slater M.D. 2. Lan Blas M.D. BRIEF HOSPITAL COURSE: The patient is an 82-year-old female, who was sent in from [facility] for evaluation of fever. Apparently, temperature was 102. She has a history of respiratory failure, vent dependent, history of pneumonia with multidrug-resistant Acinetobacter, dysphagia, paroxysmal atrial fibrillation, hypertension, and seizure disorder. On evaluation at ED, WBC was 17, hemoglobin was 8.3, and hematocrit was 25.7. She had a chest x-ray done that showed bilateral infiltrates. EKG was in normal sinus rhythm with no acute changes. She was admitted to [facility] for evaluation of pneumonia. She was initially started on IV vancomycin and Zosyn pending culture results. Influenza A and B were negative. The sputum culture showed growth of Acinetobacter MDR. Antibiotics were switched to colistin and IV Merrem. She had diarrhea. Stool was negative for C. diff. She had an episode of drop in hemoglobin to 7.4 and hematocrit to 22.9. She was given 1 unit of packed RBC blood transfusion. Leukocytosis was improving. She came in with a POLST that states DNR status. She was given heparin subcutaneous for DVT prophylaxis. She was eventually discharged back to [facility] to continue colistin and Merrem for 10 more days. FINAL DIAGNOSES: 1. Sepsis. 2. Pneumonia. 3. Acute on chronic respiratory failure. 4. Ventilator-dependent respiratory failure/tracheostomy status. 5. Acute tubular necrosis. 6. Hypertension. 7. Dysphagia, on gastrostomy tube. 8. Acute anemia requiring blood transfusion. 9. Chronic obstructive pulmonary disease. 10. Seizure disorder. 11. Schizophrenia. 12. Paroxysmal atrial fibrillation. 13. Functional quadriplegia. 14. Severe protein-calorie malnutrition. DISPOSITION: The patient was discharged to [facility]. DISCHARGE INSTRUCTIONS: Follow up with PMD as an outpatient. Naomi Landon M.D. I have been assigned to dictate discharge summary on this account and I was not involved in the patient's management. Joselin Logan N.P. DR: CURLY JOB#: [id number] CC: [facility]
--- NOTE | 2017-08-24 00:14 | Diagnostic Imaging Report ---
APPROVED REPORT CPT Code: 33615 Present Symptoms Shortness of breath Past History Prior Lower Extremity Venous DuplexDate : 07/07/2017 Comments :Rt chronic DVT. RIGHT LEG: Venous imaging reveals recanalized chronic thrombus in the common femoral, superficial femoral and popliteal veins. Collateral vein noted posterior to the popliteal artery. There is no evidence of acute thrombus in the common femoral, superficial femoral, popliteal or calf veins. The greater saphenous vein is also within normal limits. Doppler indicates normal spontaneous flow within these segments. LEFT LEG: Venous imaging reveals a patent deep venous system. There is no evidence of thrombus within the femoral, popliteal or tibial segments. The greater saphenous vein is also within normal limits. Doppler indicates normal spontaneous flow within these segments. RONDA Umaña was informed of abnormal results at 19:17 hrs. No evidence of acute DVT.
== END 2017-08-16 16:20 | DRG 870 ==
LOC: EDBD 08:57 → EMR 09:29 → 2W 10:01 → EDBEDREQ 10:37 → 4E 17:42 → 2W 17:45
PROC: 5A1955Z Respiratory Ventilation, Greater than 96 Consecutive Hours (ICD-10-PCS; principal; 2017-08-10)
PROC: 30233N1 Transfusion of Nonautologous Red Blood Cells into Peripheral Vein, Percutaneous Approach (ICD-10-PCS; 2017-08-11)
DX: A41.9 Sepsis, unspecified organism (principal); J96.20 Acute and chronic respiratory failure, unspecified whether with hypoxia or hypercapnia; N17.0 Acute kidney failure with tubular necrosis; J18.9 Pneumonia, unspecified organism; E43 Unspecified severe protein-calorie malnutrition; Z99.11 Dependence on respirator [ventilator] status; G82.50 Quadriplegia, unspecified; Z43.0 Encounter for attention to tracheostomy; I48.0 Paroxysmal atrial fibrillation; D64.9 Anemia, unspecified; Z43.1 Encounter for attention to gastrostomy; G40.909 Epilepsy, unspecified, not intractable, without status epilepticus; I10 Essential (primary) hypertension; R13.10 Dysphagia, unspecified; Z88.6 Allergy status to analgesic agent; Z86.718 Personal history of other venous thrombosis and embolism
CPT/HCPCS: 36415; 36600; 71010; 80048; 80053; 80069; 80202; 81003; 82550; 82607; 82728; 82747; 82803; 83540; 83550; 83605; 83735; 83880; 84484; 85007; 85025; 85610; 85730; 86710; 86850; 86900; 86901; 86920; 87040; 87070; 87081; 87086; 87181; 87205; 87324; 93005; 93970; 94002; 94003; 94640; 94664; 99285; J8499

== ENCOUNTER 2017-10-20 19:55 | Inpatient (IN) | payer MEDICARE, MEDICAID ==
[~2017-10-20] VITALS: Ht 160 cm; Wt 59.0 kg
[~2017-10-20 19:55] MED LIST changes: +COLACE100 MG GT; +COLISTIN150 MG HHN; +FeSO4 GT; +MERREM1 GM IV; +MULTI-DELYN237 ML GT
[2017-10-20] MEDS ORDERED: LATANOPROST2.5 ML BOTH EYES (20:18)
[2017-10-20] MEDS ORDERED: MILK OF MA400 MG/51 ORAL (20:18)
[2017-10-20] MEDS ORDERED: OMEPRAZOLE20 M3 GT (20:18)
[2017-10-20] MEDS ORDERED: UTI-STAT L3875 MG/31 GT (20:18)
[2017-10-20] MEDS ORDERED: ZOFRAN 4 MG4 MG/2 ML IM (20:18)
[2017-10-20] MEDS ORDERED: HIBICLENS118 ML TP (20:18)
[2017-10-20] MEDS ORDERED: COLACE100 MG GT (20:18)
[2017-10-20] MEDS ORDERED: VITAMIN C500 M1 GT (20:18)
[2017-10-20] MEDS ORDERED: ATIVAN0.5 MG ORAL (20:18)
[2017-10-20] MEDS ORDERED: ACETAMINOPHEN325 M1 GT (20:18)
[2017-10-20] MEDS ORDERED: HEPARIN SO5000 UNIT2 SUBQ (20:18)
[2017-10-20] MEDS ORDERED: MULTI-DELYN237 ML GT (20:18)
[2017-10-20] MEDS ORDERED: BISACODYL10 M1 RC (20:18)
[2017-10-20] MEDS ORDERED: MILK OF MA400 MG/51 GT (20:18)
[2017-10-20 20:25] VITALS: BP 122/74
[2017-10-20] MEDS ORDERED: Ampicillin/Sulbactam Sod 3 GM in NS 110 ML IV SCH (20:30)
[2017-10-20] MEDS ORDERED: Unasyn 3gm Inj ONE (20:39)
[2017-10-20 20:48] LABS: HEMATOCRIT 22.3 % (37.0-47.0); HEMOGLOBIN 7.3 G/DL (12.0-16.0); MEAN CORPUSCULAR VOLUME 93 FL (80-99); PLATELET COUNT 403 K/UL (150-450); RED BLOOD COUNT 2.41 M/UL (4.20-5.40); RED CELL DISTRIBUTION WIDTH 12.5 % (11.6-14.8); WHITE BLOOD COUNT 15.5 K/UL (4.8-10.8)
[2017-10-20 21:09] LABS: ANION GAP 8 mmol/L (5-15); BLOOD UREA NITROGEN 32 mg/dL (7-18); CALCIUM 9.4 MG/DL (8.5-10.1); CARBON DIOXIDE 30 MMOL/L (21-32); CHLORIDE 104 MMOL/L (98-107); POTASSIUM 3.4 MMOL/L (3.5-5.1); SODIUM 142 MMOL/L (136-145)
[2017-10-20 21:23] LABS: ALANINE AMINOTRANSFERASE 29 U/L (12-78); ALBUMIN/GLOBULIN RATIO 0.3 (1.0-2.7); ALKALINE PHOSPHATASE 100 U/L (46-116); ASPARTATE AMINO TRANSFERASE 35 U/L (15-37); BILIRUBIN,TOTAL 0.1 MG/DL (0.2-1.0); CKMB 3.5 NG/ML (0.0-3.6); CREATINE KINASE 72 U/L (26-308)
[2017-10-20 21:35] VITALS: BP 122/50
[2017-10-20 22:01] LABS: APPEARANCE,URINE CLEAR; BILIRUBIN, URINE NEGATIVE (NEGATIVE); COLOR,URINE PALE YELLOW; GLUCOSE, URINE (UA) NEGATIVE (NEGATIVE); KETONES,URINE NEGATIVE (NEGATIVE); LEUKOCYTE ESTERASE ,URINE 3+ (NEGATIVE); NITRITE,URINE NEGATIVE (NEGATIVE); PH,URINE 5 (4.5-8.0); PROTEIN,URINE 2+ (NEGATIVE); UROBILINOGEN,URINE NORMAL MG/DL (0.0-1.0)
--- NOTE | 2017-10-20 22:23 | Emergency Room Report ---
History of Present Illness General Chief Complaint: Abnormal Labs Source: Medical Record Present Illness HPI Patient is an 82-year-old female sent in by longterm after increased difficulty breathing. Patient noted be ventilator dependent. She had recently been hospitalized. Patient noted have a decreased blood count on laboratory testing. Patient was noted to be anemic with elevated white blood count. She was noted to have conservator. Allergies: Coded Allergies: ASPIRIN (Verified Allergy, Unknown, 07/07/17) Patient History Past Medical History: see triage record Last Menstrual Period: NA Reviewed Nursing Documentation: PMH: Agreed, PSxH: Agreed Nursing Documentation-PMH Hx Cardiac Problems: Yes - Anemia, hyperosmolality and hypernatremia Hx Hypertension: Yes - Acute kidney failure, hypokalemia, sepsis Hx COPD: Yes - on vent. Hx Cancer: No Hx Gastrointestinal Problems: Yes - Dysphagia. Gtube. Hx Dialysis: No Hx Neurological Problems: No - venous thrombosis and embolism Hx Cerebrovascular Accident: Yes - encephalopathy, quadriplegia, Hx Seizures: Yes - epilepsy Review of Systems All Other Systems: limited - by mental status Physical Exam Vital Signs Date Time Temp Pulse Resp B/P (MAP) Pulse Ox O2 Delivery O2 Flow Rate FiO2 10/20/17 19:54 99.1 93 20 133/64 94 Mechanical Ventilator 99.1 10/20/17 20:06 35 General Appearance: mild distress, Chronically Ill Eyes: bilateral eye abnormal EOM ENT: dry mucus membranes, other - trach Neck: limited range of motion Respiratory: crackles Cardiovascular #1: regular rate, rhythm Gastrointestinal: non tender, other - gtube present, Genitourinary: no CVA tenderness Musculoskeletal: decreased range of motion, other - extensor contracture lower extremity, Neurologic: motor weakness, sensory deficit Psychiatric: depressed affect Skin: well hydrated Medical Decision Making Diagnostic Impression: Primary Impression: Anemia Additional Impressions: Acute and chronic respiratory failure Elevated troponin I level ER Course Patient presented for abnormal laboratory testing. Differential diagnosis included was not limited to GI bleed, septic shock, myocardial infarction, and others., Because of complexity of patient's case laboratory testing and imaging studies were ordered. . EKG interpreted by me showed diffuse ST depression. Patient noted be somewhat anemic. The patient was unable to be consented for transfusion. I attempted to contact the patient's conservator however she was unavailable. Dr. Yu was contacted for inpatient management due to complexity of medical condition. Labs Test 10/20/17 20:30 10/20/17 21:10 White Blood Count 15.5 K/UL (4.8-10.8) Red Blood Count 2.41 M/UL (4.20-5.40) Hemoglobin 7.3 G/DL (12.0-16.0) Hematocrit 22.3 % (37.0-47.0) Mean Corpuscular Volume 93 FL (80-99) Mean Corpuscular Hemoglobin 30.3 PG (27.0-31.0) Mean Corpuscular Hemoglobin Concent 32.8 G/DL (32.0-36.0) Red Cell Distribution Width 12.5 % (11.6-14.8) Platelet Count 403 K/UL (150-450) Mean Platelet Volume 5.7 FL (6.5-10.1) Neutrophils (%) (Auto) % (45.0-75.0) Lymphocytes (%) (Auto) % (20.0-45.0) Monocytes (%) (Auto) % (1.0-10.0) Eosinophils (%) (Auto) % (0.0-3.0) Basophils (%) (Auto) % (0.0-2.0) Differential Total Cells Counted 100 Neutrophils % (Manual) 74 % (45-75) Lymphocytes % (Manual) 12 % (20-45) Monocytes % (Manual) 5 % (1-10) Eosinophils % (Manual) 3 % (0-3) Basophils % (Manual) 1 % (0-2) Band Neutrophils 5 % (0-8) Platelet Estimate Adequate Platelet Morphology Normal Hypochromasia 1+ Anisocytosis 1+ Sodium Level 142 MMOL/L (136-145) Potassium Level 3.4 MMOL/L (3.5-5.1) Chloride Level 104 MMOL/L (98-107) Carbon Dioxide Level 30 MMOL/L (21-32) Anion Gap 8 mmol/L (5-15) Blood Urea Nitrogen 32 mg/dL (7-18) Creatinine 1.0 MG/DL (0.55-1.30) Estimat Glomerular Filtration Rate mL/min (>60) Glucose Level 108 MG/DL (74-106) Lactic Acid Level 0.90 mmol/L (0.66-2.22) Calcium Level 9.4 MG/DL (8.5-10.1) Total Bilirubin 0.1 MG/DL (0.2-1.0) Aspartate Amino Transf (AST/SGOT) 35 U/L (15-37) Alanine Aminotransferase (ALT/SGPT) 29 U/L (12-78) Alkaline Phosphatase 100 U/L (46-116) Total Creatine Kinase 72 U/L (26-308) Creatine Kinase MB 3.5 NG/ML (0.0-3.6) Creatine Kinase MB Relative Index 4.8 Troponin I 0.994 ng/mL (0.000-0.056) Total Protein 8.5 G/DL (6.4-8.2) Albumin 2.0 G/DL (3.4-5.0) Globulin 6.5 g/dL Albumin/Globulin Ratio 0.3 (1.0-2.7) Urine Color Pale yellow Urine Appearance Clear Urine pH 5 (4.5-8.0) Urine Specific [place] 1.010 (1.005-1.035) Urine Protein 2+ (NEGATIVE) Urine Glucose (UA) Negative (NEGATIVE) Urine Ketones Negative (NEGATIVE) Urine Occult Blood 3+ (NEGATIVE) Urine Nitrite Negative (NEGATIVE) Urine Bilirubin Negative (NEGATIVE) Urine Urobilinogen Normal MG/DL (0.0-1.0) Urine Leukocyte Esterase 3+ (NEGATIVE) Urine RBC 5-10 /HPF (0 - 2) Urine WBC 2-4 /HPF (0 - 2) Urine Squamous Epithelial Cells Few /LPF (NONE/OCC) Urine Amorphous Sediment Few /LPF (NONE) Urine Bacteria Few /HPF (NONE) Last Vital Signs Date Time Temp Pulse Resp B/P (MAP) Pulse Ox O2 Delivery O2 Flow Rate FiO2 10/20/17 21:35 99.0 102 19 122/50 98 Mechanical Ventilator 35 99.0 Status: unchanged Disposition: ADMITTED INPATIENT Condition: Serious Referrals: COBY YU (PCP) Nakul Martines Oct 20, 2017 22:23
[2017-10-20 22:25] VITALS: BP 127/44
[2017-10-20] MEDS ORDERED: Morphine Sulfate 4mg/ml Inj IVP PRN (22:30)
[2017-10-20] MEDS ORDERED: TraZODone 50mg tab GT PRN (22:30)
[2017-10-20] MEDS ORDERED: Albuterol/Ipratropium 3ml neb HHN PRN (22:30)
[2017-10-20] MEDS ORDERED: Miralax 17gm pkt ORAL PRN (22:30)
[2017-10-20 22:40] VITALS: BP 130/70
[2017-10-20 23:40] VITALS: BP 129/78
[2017-10-21] MEDS: LORazepam Inj 2mg/ml 1ml IV PRN (02:45)
[2017-10-21 04:00] VITALS: BP 140/78
[2017-10-21] MEDS ORDERED: ALBUTEROL2.5 MG/3 M INH ×2 (05:05)
[2017-10-21] MEDS ORDERED: LORAZEPAM0.5 MG GT (05:05)
[2017-10-21] MEDS ORDERED: Vancomycin 1gm inj IVPB ONE (05:47)
[2017-10-21] MEDS: Vancomycin 1 GM in D5W 275 ML IVPB SCH (05:53)
--- NOTE | 2017-10-21 07:48 | History and Physical ---
History of Present Illness General Date patient seen: Oct 21, 2017 Reason for Hospitalization: Abnormal Labs Present Illness HPI 82-year-old female with hx of trach/vent/peg dementia, total care, quadroplegic sent in by longterm after increased difficulty breathing. Patient noted have a decreased blood count on laboratory testing. Patient was noted to be anemic with elevated white blood count. Pt was diagnosed to have sepsis and severe anemia and admitted to [facility] for further evaluation Allergies: Coded Allergies: ASPIRIN (Verified Allergy, Unknown, 07/07/17) Medication History Scheduled Albuterol Sulfate* (Albuterol Sulfate Hhn*), 3 ML INH Q6H, (Reported) Amiodarone Hcl* (Pacerone*), 200 MG GT DAILY Ascorbic Acid* (Vitamin C*), 500 MG GT DAILY, (Reported) Cran/Vitc/Mannose/Inulin/Brom (Uti-Stat Liquid), Unknown Dose GT BID, (Reported) Docusate Sodium* (Colace*), 100 MG GT DAILY, (Reported) Heparin Sod (Porcine) (Heparin Sodium*), 5,000 UNITS SUBQ EVERY 12 HOURS, ( Reported) Latanoprost* (Xalatan*), 1 DROP BOTH EYES BEDTIME, (Reported) Memantine Hcl* (Namenda*), 5 MG GT TWICE A DAY, (Reported) Meropenem (Merrem), 1 GM IV EVERY 8 HOURS, (Reported) Multivitamin Liquid* (Multi-Delyn*), 5 ML GT DAILY, (Reported) Omeprazole (Omeprazole), 20 MG GT DAILY, (Reported) Scheduled PRN Acetaminophen* (Acetaminophen 325MG Tablet*), 650 MG GT Q4H PRN for Fever/ Headache/Mild Pain, (Reported) Albuterol Sulfate* (Albuterol Sulfate Hhn*), 3 ML INH Q3HR PRN for Shortness of Breath, (Reported) Bisacodyl (Bisacodyl), 10 MG RC PRN PRN for Constipation, (Reported) Lorazepam* (Lorazepam*), 0.5 MG GT Q6HR PRN for For Anxiety, (Reported) Magnesium Hydroxide* (Milk Of Magnesia*), 30 ML GT DAILY PRN for Constipation, ( Reported) Ondansetron* (Zofran*), 4 MG IM Q6H PRN for Nausea & Vomiting, (Reported) Trazodone Hcl* (Desyrel*), 50 MG GT BEDTIME PRN for insomnia, (Reported) Miscellaneous Medications Chlorhexidine Gluconate* (Hibiclens*), Unknown Dose TP, (Reported) Patient History Healthcare decision maker Resuscitation status Full Code Advanced Directive on File Past Medical/Surgical History Past Medical/Surgical History: (1) Respiratory failure (2) Seizure disorder (3) Tracheostomy care Review of Systems Constitutional: Reports: no symptoms Eye: Reports: no symptoms Physical Exam General Appearance: WD/WN Lines, tubes and drains: peripheral HEENT: normocephalic, anicteric Neck: non-tender, supple Respiratory/Chest: chest wall non-tender, lungs clear Abdomen: normal bowel sounds Genitourinary/Rectal: normal genital exam Extremities: normal range of motion, non-pitting Neurologic: hand glass 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 II-XII grossly normal Last 24 Hour Vital Signs Date Time Temp Pulse Resp B/P (MAP) Pulse Ox O2 Delivery O2 Flow Rate FiO2 10/21/17 07:29 104 21 35 10/21/17 05:11 97 18 35 10/21/17 04:00 35 10/21/17 04:00 97 10/21/17 04:00 99.3 101 20 140/78 100 Mechanical Ventilator 35 99.3 10/21/17 02:47 110 21 35 10/21/17 00:55 93 21 35 10/21/17 00:45 35 10/21/17 00:30 99.2 96 18 130/70 100 Mechanical Ventilator 35 99.2 10/20/17 23:40 99.5 98 20 129/78 100 Mechanical Ventilator 35 99.5 10/20/17 23:30 89 18 35 10/20/17 22:40 99.2 96 19 99.2 10/20/17 22:40 99.2 96 19 130/70 100 Mechanical Ventilator 35 99.2 10/20/17 22:25 99.7 102 23 127/44 100 Mechanical Ventilator 35 99.7 10/20/17 22:25 99.7 102 23 99.7 10/20/17 21:35 99.0 102 19 122/50 98 Mechanical Ventilator 35 99.0 10/20/17 20:58 104 25 35 10/20/17 20:30 35 10/20/17 20:25 100.2 105 20 122/74 100 Mechanical Ventilator 35 100.2 10/20/17 20:07 93 29 Mechanical Ventilator 35 10/20/17 20:06 93 29 35 10/20/17 19:54 99.1 93 20 133/64 94 Mechanical Ventilator 99.1 Intake and Output 10/20/17 10/21/17 19:00 07:00 Intake Total 480 ml Output Total 151 ml Balance 329 ml Intake IV Total 210 ml Tube Feeding 20 ml Blood Product 250 ml Output Urine Total 151 ml # Bowel Movements 2 Laboratory Tests Test 10/20/17 20:30 10/20/17 21:10 White Blood Count 15.5 K/UL (4.8-10.8) H Red Blood Count 2.41 M/UL (4.20-5.40) L Hemoglobin 7.3 G/DL (12.0-16.0) L Hematocrit 22.3 % (37.0-47.0) L Mean Corpuscular Volume 93 FL (80-99) Mean Corpuscular Hemoglobin 30.3 PG (27.0-31.0) Mean Corpuscular Hemoglobin Concent 32.8 G/DL (32.0-36.0) Red Cell Distribution Width 12.5 % (11.6-14.8) Platelet Count 403 K/UL (150-450) Mean Platelet Volume 5.7 FL (6.5-10.1) L Neutrophils (%) (Auto) % (45.0-75.0) Lymphocytes (%) (Auto) % (20.0-45.0) Monocytes (%) (Auto) % (1.0-10.0) Eosinophils (%) (Auto) % (0.0-3.0) Basophils (%) (Auto) % (0.0-2.0) Differential Total Cells Counted 100 Neutrophils % (Manual) 74 % (45-75) Lymphocytes % (Manual) 12 % (20-45) L Monocytes % (Manual) 5 % (1-10) Eosinophils % (Manual) 3 % (0-3) Basophils % (Manual) 1 % (0-2) Band Neutrophils 5 % (0-8) Platelet Estimate Adequate Platelet Morphology Normal Hypochromasia 1+ Anisocytosis 1+ Sodium Level 142 MMOL/L (136-145) Potassium Level 3.4 MMOL/L (3.5-5.1) L Chloride Level 104 MMOL/L (98-107) Carbon Dioxide Level 30 MMOL/L (21-32) Anion Gap 8 mmol/L (5-15) Blood Urea Nitrogen 32 mg/dL (7-18) H Creatinine 1.0 MG/DL (0.55-1.30) Estimat Glomerular Filtration Rate mL/min (>60) Glucose Level 108 MG/DL (74-106) H Lactic Acid Level 0.90 mmol/L (0.66-2.22) Calcium Level 9.4 MG/DL (8.5-10.1) Total Bilirubin 0.1 MG/DL (0.2-1.0) L Aspartate Amino Transf (AST/SGOT) 35 U/L (15-37) Alanine Aminotransferase (ALT/SGPT) 29 U/L (12-78) Alkaline Phosphatase 100 U/L (46-116) Total Creatine Kinase 72 U/L (26-308) Creatine Kinase MB 3.5 NG/ML (0.0-3.6) Creatine Kinase MB Relative Index 4.8 Troponin I 0.994 ng/mL (0.000-0.056) Total Protein 8.5 G/DL (6.4-8.2) H Albumin 2.0 G/DL (3.4-5.0) L Globulin 6.5 g/dL Albumin/Globulin Ratio 0.3 (1.0-2.7) L Urine Color Pale yellow Urine Appearance Clear Urine pH 5 (4.5-8.0) Urine Specific [place] 1.010 (1.005-1.035) Urine Protein 2+ (NEGATIVE) H Urine Glucose (UA) Negative (NEGATIVE) Urine Ketones Negative (NEGATIVE) Urine Occult Blood 3+ (NEGATIVE) H Urine Nitrite Negative (NEGATIVE) Urine Bilirubin Negative (NEGATIVE) Urine Urobilinogen Normal MG/DL (0.0-1.0) Urine Leukocyte Esterase 3+ (NEGATIVE) H Urine RBC 5-10 /HPF (0 - 2) H Urine WBC 2-4 /HPF (0 - 2) Urine Squamous Epithelial Cells Few /LPF (NONE/OCC) Urine Amorphous Sediment Few /LPF (NONE) H Urine Bacteria Few /HPF (NONE) Height (Feet): 5 Height (Inches): 3.00 Weight (Pounds): 130 Medications Current Medications Medications (Trade) Dose Ordered Sig/Torsten Route PRN Reason Start Time Stop Time Status Last Admin Dose Admin Acetaminophen (Tylenol) 650 mg Q4H PRN GT Mild Pain/Temp > 100.5 10/21/17 06:30 11/20/17 06:29 Albuterol/ Ipratropium (Albuterol/ Ipratropium) 3 ml EVERY 4 HOURS PRN HHN Shortness of Breath 10/20/17 22:30 10/25/17 22:29 Amiodarone HCl (Cordarone) 200 mg DAILY GT 10/21/17 09:00 11/20/17 08:59 Dextrose (Dextrose 50%) STAT PRN IV Hypoglycemia 10/20/17 22:30 11/19/17 22:29 Heparin Sodium (Porcine) (Heparin 5000 units/ml) 5,000 units EVERY 12 HOURS SUBQ 10/21/17 09:00 11/20/17 08:59 Lorazepam (Ativan 2mg/ml 1ml) 2 mg EVERY 2 HOURS PRN IV For Anxiety 10/20/17 22:30 10/27/17 22:29 10/21/17 02:45 Memantine (Namenda) 5 mg TWICE A DAY GT 10/21/17 09:00 11/20/17 08:59 Morphine Sulfate (Morphine Sulfate) 4 mg EVERY 4 HOURS PRN IVP Severe Pain (Pain Scale 7-10) 10/20/17 22:30 10/27/17 22:29 Ondansetron HCl (Zofran) 4 mg Q6H PRN IVP Nausea & Vomiting 10/20/17 22:30 11/19/17 22:29 Pantoprazole (Protonix) 40 mg DAILY IV 10/21/17 09:00 11/20/17 08:59 Polyethylene Glycol (Miralax) 17 gm DAILYPRN PRN ORAL Constipation 10/20/17 22:30 11/19/17 22:29 Trazodone HCl (Desyrel) 50 mg BEDTIME PRN GT insomnia 10/20/17 22:30 11/19/17 22:29 Vancomycin HCl 1 gm/Dextrose 275 ml @ 183.3 mls/ hr Q24H IVPB 10/21/17 06:00 10/26/17 05:59 10/21/17 05:53 Assessment/Plan Problem List: (1) Acute and chronic respiratory failure ICD Codes: J96.20 - Acute and chronic respiratory failure, unspecified whether with hypoxia or hypercapnia SNOMED: 12572727 (2) Septic shock ICD Codes: A41.9 - Sepsis, unspecified organism; R65.21 - Severe sepsis with septic shock SNOMED: 46952786 (3) Anemia ICD Codes: D64.9 - Anemia, unspecified SNOMED: 955210568 (4) Seizure disorder ICD Codes: G40.909 - Epilepsy, unspecified, not intractable, without status epilepticus SNOMED: 020838895 (5) HTN (hypertension) ICD Codes: I10 - Essential (primary) hypertension SNOMED: 32124965 Respiratory: monitor respiratory rate, adjust FIO2, CXR, ABG Cardiac: continue to monitor HR/BP Renal: F/U I&O, check electrolytes Infectious Disease: check cultures Gastrointestinal: continue feedings/current rate Endocrine: monitor blood sugar, check TSH Hematologic: monitor H/H Neurologic: PRN Morphine, keep patient comfortable Affect: PRN ativan Prophylaxis: Protonix Notes 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
[2017-10-21 08:00] VITALS: BP 136/59
[2017-10-21 08:17] LABS: BASOPHILS % (AUTO) 0.6 % (0.0-2.0); EOSINOPHILS % (AUTO) 1.7 % (0.0-3.0); HEMATOCRIT 28.5 % (37.0-47.0); HEMOGLOBIN 9.7 G/DL (12.0-16.0); LYMPHOCYTES % (AUTO) 10.9 % (20.0-45.0); MEAN CORPUSCULAR VOLUME 89 FL (80-99); MONOCYTES % (AUTO) 5.2 % (1.0-10.0); NEUTROPHILS % (AUTO) 81.7 % (45.0-75.0); PLATELET COUNT 361 K/UL (150-450); RED BLOOD COUNT 3.19 M/UL (4.20-5.40); RED CELL DISTRIBUTION WIDTH 13.6 % (11.6-14.8); WHITE BLOOD COUNT 16.1 K/UL (4.8-10.8)
[2017-10-21 08:35] LABS: ANION GAP 9 mmol/L (5-15); BLOOD UREA NITROGEN 24 mg/dL (7-18); CALCIUM 9.5 MG/DL (8.5-10.1); CARBON DIOXIDE 29 MMOL/L (21-32); CHLORIDE 106 MMOL/L (98-107); CREATININE 1.1 MG/DL (0.55-1.30); POTASSIUM 3.2 MMOL/L (3.5-5.1); SODIUM 144 MMOL/L (136-145)
--- NOTE | 2017-10-21 08:39 | Diagnostic Imaging Report ---
Indication: Shortness of breath Technique: XRAY Chest 1v Comparison: 08/14/2017 Findings: Compared to previous study, tracheostomy remains in place. Cardiomediastinal silhouette is unchanged. There is blunting of both costophrenic angles. Mixed interstitial and alveolar infiltrates with some nodularity are noted bilaterally. There is a tracheostomy. Impression: Bilateral pleural effusions or chronic pleural thickening. Extensive bilateral pulmonary infiltrates with some nodularity. Though this may be related to congestive heart failure and pulmonary edema, the possibility of malignancy is not excluded. Clinical correlation or further evaluation suggested. Atherosclerotic change. Tracheostomy.
[2017-10-21] MEDS: Memantine 10mg tab GT SCH ×2 (09:04→18:00)
[2017-10-21] MEDS: Amiodarone 200mg tab GT SCH (09:05)
[2017-10-21] MEDS: Pantoprazole Inj IV SCH (09:06)
[2017-10-21] MEDS: Acetaminophen 650mg/20.3ml GT PRN (09:08)
[2017-10-21] MEDS: Heparin 5000 units/ml inj SUBQ SCH ×2 (09:16→20:56)
[2017-10-21 12:00] VITALS: BP 125/59
--- NOTE | 2017-10-21 12:04 | Consultation ---
History of Present Illness General Date patient seen: Oct 21, 2017 - 11:40p Chief Complaint: Abnormal Labs Present Illness HPI 82 y/o F with hx of HTN, seizure disorder, dementia, quadriplegic, chronic resp failure VDRF, LE DVT, s/p peg and trach, COPD, hx of PNA and septic shock with MDRO, senior living resident is brought to ED on 10/20 with increased SOB, leukocytosis and anemia Of note, patient admitted here from 08/10-08/16 with fever, sepsis and found to have VAP 2ry to MDR ACB, s/p Tx with Meropenem and Colistin. Allergies: Coded Allergies: ASPIRIN (Verified Allergy, Unknown, 07/07/17) Medication History Scheduled Albuterol Sulfate* (Albuterol Sulfate Hhn*), 3 ML INH Q6H, (Reported) Amiodarone Hcl* (Pacerone*), 200 MG GT DAILY Ascorbic Acid* (Vitamin C*), 500 MG GT DAILY, (Reported) Cran/Vitc/Mannose/Inulin/Brom (Uti-Stat Liquid), Unknown Dose GT BID, (Reported) Docusate Sodium* (Colace*), 100 MG GT DAILY, (Reported) Heparin Sod (Porcine) (Heparin Sodium*), 5,000 UNITS SUBQ EVERY 12 HOURS, ( Reported) Latanoprost* (Xalatan*), 1 DROP BOTH EYES BEDTIME, (Reported) Memantine Hcl* (Namenda*), 5 MG GT TWICE A DAY, (Reported) Multivitamin Liquid* (Multi-Delyn*), 5 ML GT DAILY, (Reported) Omeprazole (Omeprazole), 20 MG GT DAILY, (Reported) Scheduled PRN Acetaminophen* (Acetaminophen 325MG Tablet*), 650 MG GT Q4H PRN for Fever/ Headache/Mild Pain, (Reported) Albuterol Sulfate* (Albuterol Sulfate Hhn*), 3 ML INH Q3HR PRN for Shortness of Breath, (Reported) Bisacodyl (Bisacodyl), 10 MG RC PRN PRN for Constipation, (Reported) Lorazepam* (Lorazepam*), 0.5 MG GT Q6HR PRN for For Anxiety, (Reported) Magnesium Hydroxide* (Milk Of Magnesia*), 30 ML GT DAILY PRN for Constipation, ( Reported) Ondansetron* (Zofran*), 4 MG IM Q6H PRN for Nausea & Vomiting, (Reported) Trazodone Hcl* (Desyrel*), 50 MG GT BEDTIME PRN for insomnia, (Reported) Miscellaneous Medications Chlorhexidine Gluconate* (Hibiclens*), Unknown Dose TP, (Reported) Patient History Healthcare decision maker Resuscitation status Full Code Advanced Directive on File Patient History Narrative PMhx: as above Shx: reviewed Fhx: non contributory Review of Systems ROS Narrative unable to obtain Physical Exam Physical Exam Narrative General Appearance: WD/WN Lines, tubes and drains: peripheral HEENT: normocephalic, anicteric Neck: non-tender, supple Respiratory/Chest: chest wall non-tender, lungs clear Abdomen: normal bowel sounds Genitourinary/Rectal: normal genital exam Extremities: normal range of motion, non-pitting 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 normal Last 24 Hour Vital Signs Date Time Temp Pulse Resp B/P (MAP) Pulse Ox O2 Delivery O2 Flow Rate FiO2 10/21/17 11:20 78 21 35 10/21/17 09:38 99.3 10/21/17 09:29 101 21 35 10/21/17 09:08 101.1 10/21/17 08:00 35 10/21/17 08:00 100 10/21/17 08:00 101.8 101 20 136/59 100 Mechanical Ventilator 35 101.8 10/21/17 07:29 104 21 35 10/21/17 05:11 97 18 35 10/21/17 04:00 35 10/21/17 04:00 97 10/21/17 04:00 99.3 101 20 140/78 100 Mechanical Ventilator 35 99.3 10/21/17 02:47 110 21 35 10/21/17 00:55 93 21 35 10/21/17 00:45 35 10/21/17 00:30 99.2 96 18 130/70 100 Mechanical Ventilator 35 99.2 10/20/17 23:40 99.5 98 20 129/78 100 Mechanical Ventilator 35 99.5 10/20/17 23:30 89 18 35 10/20/17 22:40 99.2 96 19 99.2 10/20/17 22:40 99.2 96 19 130/70 100 Mechanical Ventilator 35 99.2 10/20/17 22:25 99.7 102 23 127/44 100 Mechanical Ventilator 35 99.7 10/20/17 22:25 99.7 102 23 99.7 10/20/17 21:35 99.0 102 19 122/50 98 Mechanical Ventilator 35 99.0 10/20/17 20:58 104 25 35 10/20/17 20:30 35 10/20/17 20:25 100.2 105 20 122/74 100 Mechanical Ventilator 35 100.2 10/20/17 20:07 93 29 Mechanical Ventilator 35 10/20/17 20:06 93 29 35 10/20/17 19:54 99.1 93 20 133/64 94 Mechanical Ventilator 99.1 Intake and Output 10/20/17 10/21/17 19:00 07:00 Intake Total 663.3 ml Output Total 151 ml Balance 512.3 ml Intake IV Total 393.3 ml Tube Feeding 20 ml Blood Product 250 ml Output Urine Total 151 ml # Bowel Movements 4 Laboratory Tests Test 10/20/17 20:30 10/20/17 21:10 10/21/17 07:40 White Blood Count 15.5 K/UL (4.8-10.8) H 16.1 K/UL (4.8-10.8) H Red Blood Count 2.41 M/UL (4.20-5.40) L 3.19 M/UL (4.20-5.40) L Hemoglobin 7.3 G/DL (12.0-16.0) L 9.7 G/DL (12.0-16.0) #L Hematocrit 22.3 % (37.0-47.0) L 28.5 % (37.0-47.0) L Mean Corpuscular Volume 93 FL (80-99) 89 FL (80-99) Mean Corpuscular Hemoglobin 30.3 PG (27.0-31.0) 30.6 PG (27.0-31.0) Mean Corpuscular Hemoglobin Concent 32.8 G/DL (32.0-36.0) 34.2 G/DL (32.0-36.0) Red Cell Distribution Width 12.5 % (11.6-14.8) 13.6 % (11.6-14.8) Platelet Count 403 K/UL (150-450) 361 K/UL (150-450) Mean Platelet Volume 5.7 FL (6.5-10.1) L 6.0 FL (6.5-10.1) L Neutrophils (%) (Auto) % (45.0-75.0) 81.7 % (45.0-75.0) H Lymphocytes (%) (Auto) % (20.0-45.0) 10.9 % (20.0-45.0) L Monocytes (%) (Auto) % (1.0-10.0) 5.2 % (1.0-10.0) Eosinophils (%) (Auto) % (0.0-3.0) 1.7 % (0.0-3.0) Basophils (%) (Auto) % (0.0-2.0) 0.6 % (0.0-2.0) Differential Total Cells Counted 100 Neutrophils % (Manual) 74 % (45-75) Lymphocytes % (Manual) 12 % (20-45) L Monocytes % (Manual) 5 % (1-10) Eosinophils % (Manual) 3 % (0-3) Basophils % (Manual) 1 % (0-2) Band Neutrophils 5 % (0-8) Platelet Estimate Adequate Platelet Morphology Normal Hypochromasia 1+ Anisocytosis 1+ Sodium Level 142 MMOL/L (136-145) 144 MMOL/L (136-145) Potassium Level 3.4 MMOL/L (3.5-5.1) L 3.2 MMOL/L (3.5-5.1) L Chloride Level 104 MMOL/L (98-107) 106 MMOL/L (98-107) Carbon Dioxide Level 30 MMOL/L (21-32) 29 MMOL/L (21-32) Anion Gap 8 mmol/L (5-15) 9 mmol/L (5-15) Blood Urea Nitrogen 32 mg/dL (7-18) H 24 mg/dL (7-18) H Creatinine 1.0 MG/DL (0.55-1.30) 1.1 MG/DL (0.55-1.30) Estimat Glomerular Filtration Rate mL/min (>60) mL/min (>60) Glucose Level 108 MG/DL (74-106) H 147 MG/DL (74-106) H Lactic Acid Level 0.90 mmol/L (0.66-2.22) Calcium Level 9.4 MG/DL (8.5-10.1) 9.5 MG/DL (8.5-10.1) Total Bilirubin 0.1 MG/DL (0.2-1.0) L Aspartate Amino Transf (AST/SGOT) 35 U/L (15-37) Alanine Aminotransferase (ALT/SGPT) 29 U/L (12-78) Alkaline Phosphatase 100 U/L (46-116) Total Creatine Kinase 72 U/L (26-308) Creatine Kinase MB 3.5 NG/ML (0.0-3.6) Creatine Kinase MB Relative Index 4.8 Troponin I 0.994 ng/mL (0.000-0.056) 0.747 ng/mL (0.000-0.056) Total Protein 8.5 G/DL (6.4-8.2) H Albumin 2.0 G/DL (3.4-5.0) L 2.0 G/DL (3.4-5.0) L Globulin 6.5 g/dL Albumin/Globulin Ratio 0.3 (1.0-2.7) L Urine Color Pale yellow Urine Appearance Clear Urine pH 5 (4.5-8.0) Urine Specific [place] 1.010 (1.005-1.035) Urine Protein 2+ (NEGATIVE) H Urine Glucose (UA) Negative (NEGATIVE) Urine Ketones Negative (NEGATIVE) Urine Occult Blood 3+ (NEGATIVE) H Urine Nitrite Negative (NEGATIVE) Urine Bilirubin Negative (NEGATIVE) Urine Urobilinogen Normal MG/DL (0.0-1.0) Urine Leukocyte Esterase 3+ (NEGATIVE) H Urine RBC 5-10 /HPF (0 - 2) H Urine WBC 2-4 /HPF (0 - 2) Urine Squamous Epithelial Cells Few /LPF (NONE/OCC) Urine Amorphous Sediment Few /LPF (NONE) H Urine Bacteria Few /HPF (NONE) Phosphorus Level 2.0 MG/DL (2.5-4.9) L Height (Feet): 5 Height (Inches): 3.00 Weight (Pounds): 130 Medications Current Medications Medications (Trade) Dose Ordered Sig/Torsten Route PRN Reason Start Time Stop Time Status Last Admin Dose Admin Acetaminophen (Tylenol) 650 mg Q4H PRN GT Mild Pain/Temp > 100.5 10/21/17 06:30 11/20/17 06:29 10/21/17 09:08 Albuterol/ Ipratropium (Albuterol/ Ipratropium) 3 ml EVERY 4 HOURS PRN HHN Shortness of Breath 10/20/17 22:30 10/25/17 22:29 Amiodarone HCl (Cordarone) 200 mg DAILY GT 10/21/17 09:00 11/20/17 08:59 10/21/17 09:05 Dextrose (Dextrose 50%) STAT PRN IV Hypoglycemia 10/20/17 22:30 11/19/17 22:29 Heparin Sodium (Porcine) (Heparin 5000 units/ml) 5,000 units EVERY 12 HOURS SUBQ 10/21/17 09:00 11/20/17 08:59 10/21/17 09:16 Lorazepam (Ativan 2mg/ml 1ml) 2 mg EVERY 2 HOURS PRN IV For Anxiety 10/20/17 22:30 10/27/17 22:29 10/21/17 02:45 Memantine (Namenda) 5 mg TWICE A DAY GT 10/21/17 09:00 11/20/17 08:59 10/21/17 09:04 Morphine Sulfate (Morphine Sulfate) 4 mg EVERY 4 HOURS PRN IVP Severe Pain (Pain Scale 7-10) 10/20/17 22:30 10/27/17 22:29 Ondansetron HCl (Zofran) 4 mg Q6H PRN IVP Nausea & Vomiting 10/20/17 22:30 11/19/17 22:29 Pantoprazole (Protonix) 40 mg DAILY IV 10/21/17 09:00 11/20/17 08:59 10/21/17 09:06 Polyethylene Glycol (Miralax) 17 gm DAILYPRN PRN ORAL Constipation 10/20/17 22:30 11/19/17 22:29 Trazodone HCl (Desyrel) 50 mg BEDTIME PRN GT insomnia 10/20/17 22:30 11/19/17 22:29 Vancomycin HCl 1 gm/Dextrose 275 ml @ 183.3 mls/ hr Q24H IVPB 10/21/17 06:00 10/26/17 05:59 10/21/17 05:53 Assessment/Plan Assessment/Plan Abx: IV Unasyn 10/20 IV Vanco 10/20- Flagyl 10/20 Assessment: -Sepsis- likely 2ry to PNA- r/o MDRO -CXR: Bilateral pleural effusions or chronic pleural thickening. Extensive bilateral pulmonary infiltrates with some nodularity. Though this may be related to congestive heart failure and pulmonary edema, the possibility of malignancy is not excluded. Clinical correlation or further evaluation suggested. -sp cx p Fever/leukocytosis Hx of recent VAP, sp cx MDR ACB 07/2017, s/p Rx Hypertension. History of seizure disorder Ventilator-dependent respiratory failure History of lower extremity DVT History of PEG and trach placement Plan: -continue IV Vancomycin #1 and start Meropenem pending sputum culture 10/20 SP Unasyn #1, Flagyl #1 08/26 SP IV Meropenem and INH COlistin #14 P vancomycin and Zosyn d# 5 07/22 SP INH/IV Colistin #13, Tygacil #7 07/21 SP Meropenem d# 14/14 07/13 SP IV Vancomycin # 7 07/08 SP Amikacin d# 2 -Influenza screen -CT chest -f/u cx -Monitor CBC/BMP, temperatures -ETT/PEG care -aspiration precautions Thank you for this consultation. Will continue to follow along with you. Discussed with Yane Giron M.D. Oct 21, 2017 12:04
[2017-10-21] MEDS: Meropenem 2 GM in NS 55 ML IVPB SCH ×2 (15:14→23:24)
[2017-10-21] MEDS ORDERED: Tubing IV Secondary IV ONE (15:31)
[2017-10-21] MEDS ORDERED: NS 275ml ONE (15:31)
--- NOTE | 2017-10-21 15:47 | Cardiology Progress Note ---
Subjective Subjective [id number] Objective Last 24 Hour Vital Signs Date Time Temp Pulse Resp B/P (MAP) Pulse Ox O2 Delivery O2 Flow Rate FiO2 10/21/17 13:26 70 22 35 10/21/17 12:00 90 10/21/17 12:00 35 10/21/17 12:00 99.8 87 18 125/59 100 Mechanical Ventilator 35 99.8 10/21/17 11:20 78 21 35 10/21/17 09:38 99.3 10/21/17 09:29 101 21 35 10/21/17 09:08 101.1 10/21/17 08:00 35 10/21/17 08:00 100 10/21/17 08:00 101.8 101 20 136/59 100 Mechanical Ventilator 35 101.8 10/21/17 07:29 104 21 35 10/21/17 05:11 97 18 35 10/21/17 04:00 35 10/21/17 04:00 97 10/21/17 04:00 99.3 101 20 140/78 100 Mechanical Ventilator 35 99.3 10/21/17 02:47 110 21 35 10/21/17 00:55 93 21 35 10/21/17 00:45 35 10/21/17 00:30 99.2 96 18 130/70 100 Mechanical Ventilator 35 99.2 10/20/17 23:40 99.5 98 20 129/78 100 Mechanical Ventilator 35 99.5 10/20/17 23:30 89 18 35 10/20/17 22:40 99.2 96 19 99.2 10/20/17 22:40 99.2 96 19 130/70 100 Mechanical Ventilator 35 99.2 10/20/17 22:25 99.7 102 23 127/44 100 Mechanical Ventilator 35 99.7 10/20/17 22:25 99.7 102 23 99.7 10/20/17 21:35 99.0 102 19 122/50 98 Mechanical Ventilator 35 99.0 10/20/17 20:58 104 25 35 10/20/17 20:30 35 10/20/17 20:25 100.2 105 20 122/74 100 Mechanical Ventilator 35 100.2 10/20/17 20:07 93 29 Mechanical Ventilator 35 10/20/17 20:06 93 29 35 10/20/17 19:54 99.1 93 20 133/64 94 Mechanical Ventilator 99.1 Intake and Output 10/20/17 10/21/17 19:00 07:00 Intake Total 663.3 ml Output Total 151 ml Balance 512.3 ml Intake IV Total 393.3 ml Tube Feeding 20 ml Blood Product 250 ml Output Urine Total 151 ml # Bowel Movements 4 Laboratory Tests Test 10/20/17 20:30 10/20/17 21:10 10/21/17 07:40 White Blood Count 15.5 K/UL (4.8-10.8) H 16.1 K/UL (4.8-10.8) H Red Blood Count 2.41 M/UL (4.20-5.40) L 3.19 M/UL (4.20-5.40) L Hemoglobin 7.3 G/DL (12.0-16.0) L 9.7 G/DL (12.0-16.0) #L Hematocrit 22.3 % (37.0-47.0) L 28.5 % (37.0-47.0) L Mean Corpuscular Volume 93 FL (80-99) 89 FL (80-99) Mean Corpuscular Hemoglobin 30.3 PG (27.0-31.0) 30.6 PG (27.0-31.0) Mean Corpuscular Hemoglobin Concent 32.8 G/DL (32.0-36.0) 34.2 G/DL (32.0-36.0) Red Cell Distribution Width 12.5 % (11.6-14.8) 13.6 % (11.6-14.8) Platelet Count 403 K/UL (150-450) 361 K/UL (150-450) Mean Platelet Volume 5.7 FL (6.5-10.1) L 6.0 FL (6.5-10.1) L Neutrophils (%) (Auto) % (45.0-75.0) 81.7 % (45.0-75.0) H Lymphocytes (%) (Auto) % (20.0-45.0) 10.9 % (20.0-45.0) L Monocytes (%) (Auto) % (1.0-10.0) 5.2 % (1.0-10.0) Eosinophils (%) (Auto) % (0.0-3.0) 1.7 % (0.0-3.0) Basophils (%) (Auto) % (0.0-2.0) 0.6 % (0.0-2.0) Differential Total Cells Counted 100 Neutrophils % (Manual) 74 % (45-75) Lymphocytes % (Manual) 12 % (20-45) L Monocytes % (Manual) 5 % (1-10) Eosinophils % (Manual) 3 % (0-3) Basophils % (Manual) 1 % (0-2) Band Neutrophils 5 % (0-8) Platelet Estimate Adequate Platelet Morphology Normal Hypochromasia 1+ Anisocytosis 1+ Sodium Level 142 MMOL/L (136-145) 144 MMOL/L (136-145) Potassium Level 3.4 MMOL/L (3.5-5.1) L 3.2 MMOL/L (3.5-5.1) L Chloride Level 104 MMOL/L (98-107) 106 MMOL/L (98-107) Carbon Dioxide Level 30 MMOL/L (21-32) 29 MMOL/L (21-32) Anion Gap 8 mmol/L (5-15) 9 mmol/L (5-15) Blood Urea Nitrogen 32 mg/dL (7-18) H 24 mg/dL (7-18) H Creatinine 1.0 MG/DL (0.55-1.30) 1.1 MG/DL (0.55-1.30) Estimat Glomerular Filtration Rate mL/min (>60) mL/min (>60) Glucose Level 108 MG/DL (74-106) H 147 MG/DL (74-106) H Lactic Acid Level 0.90 mmol/L (0.66-2.22) Calcium Level 9.4 MG/DL (8.5-10.1) 9.5 MG/DL (8.5-10.1) Total Bilirubin 0.1 MG/DL (0.2-1.0) L Aspartate Amino Transf (AST/SGOT) 35 U/L (15-37) Alanine Aminotransferase (ALT/SGPT) 29 U/L (12-78) Alkaline Phosphatase 100 U/L (46-116) Total Creatine Kinase 72 U/L (26-308) Creatine Kinase MB 3.5 NG/ML (0.0-3.6) Creatine Kinase MB Relative Index 4.8 Troponin I 0.994 ng/mL (0.000-0.056) 0.747 ng/mL (0.000-0.056) Total Protein 8.5 G/DL (6.4-8.2) H Albumin 2.0 G/DL (3.4-5.0) L 2.0 G/DL (3.4-5.0) L Globulin 6.5 g/dL Albumin/Globulin Ratio 0.3 (1.0-2.7) L Urine Color Pale yellow Urine Appearance Clear Urine pH 5 (4.5-8.0) Urine Specific [place] 1.010 (1.005-1.035) Urine Protein 2+ (NEGATIVE) H Urine Glucose (UA) Negative (NEGATIVE) Urine Ketones Negative (NEGATIVE) Urine Occult Blood 3+ (NEGATIVE) H Urine Nitrite Negative (NEGATIVE) Urine Bilirubin Negative (NEGATIVE) Urine Urobilinogen Normal MG/DL (0.0-1.0) Urine Leukocyte Esterase 3+ (NEGATIVE) H Urine RBC 5-10 /HPF (0 - 2) H Urine WBC 2-4 /HPF (0 - 2) Urine Squamous Epithelial Cells Few /LPF (NONE/OCC) Urine Amorphous Sediment Few /LPF (NONE) H Urine Bacteria Few /HPF (NONE) Phosphorus Level 2.0 MG/DL (2.5-4.9) THU NEV[place] Oct 21, 2017 15:47
[2017-10-21 16:00] VITALS: BP 142/65
--- NOTE | 2017-10-21 19:15 | Consultation ---
DATE OF CONSULTATION: 10/21/2017 CARDIOLOGY CONSULTATION CONSULTING PHYSICIAN: Chiara Durant M.D. PATIENT IDENTIFICATION: The patient is 82-year-old. HISTORY OF PRESENT ILLNESS: Obtained by reviewing the chart. The patient is nonverbal. She is on tracheostomy on vent. She presented with respiratory insufficiency and she was evaluated in the emergency department and treated for pneumonia. She came from longterm. PAST MEDICAL HISTORY: Significant for hypertension, paroxysmal atrial fibrillation, questionable stroke. The patient is not able to give any history. MEDICATIONS: Her pre-admission medications include albuterol, Tylenol, amiodarone, vitamin C, bisacodyl, Colace, subcutaneous heparin, eyedrops, lorazepam, magnesium, memantine, . ALLERGIES: Not documented. HABITS: Unknown. REVIEW OF SYSTEMS: Unable to perform due to the patient being unresponsive. PHYSICAL EXAMINATION: GENERAL: The patient is on trach. She opens her eyes. She opens her right eye, but does not seem like she is communicating or can hear anybody. VITAL SIGNS: Temperature this morning 101.8, blood pressure 130/69, her heart rate is 100, saturation is 100%. HEENT: She possibly has some mild facial droop. Her left eye could not open, right eye has good pupil reaction and cornea reaction. LUNGS: She has crackles bilaterally. Difficult to hear anteriorly due to the vent working. She is not breathing over the vent. HEART: Regular. PMI in the sixth intercostal space in anterior axillary line. There is accentuated A2. Holosystolic murmur on the left sternal border, 2/6. ABDOMEN: Soft. There is a G-tube. There is postsurgical scar, probably hysterectomy. Bowel sounds are present. EXTREMITIES: Lower extremities, trace edema. NEUROLOGICAL: She is unresponsive and she is stiff, although there is no evidence of lateralized neurologic deficit. LABORATORY DATA: ECG shows sinus rhythm, prolonged QT interval. Her labs significant for potassium 3.2, phosphorus 2, glucose 147. Troponin 0.994. Troponin 0.747. Albumin 2. Globulin 6.5. White count is 16.1, hemoglobin 9.7 and yesterday was 7.3, platelets 361,000. IMPRESSION AND RECOMMENDATION: The patient is in respiratory failure, most likely due to bilateral pneumonia. A chest x-ray looks like bilateral pneumonia. Because of diffuse changes and pleural effusion, I cannot entirely exclude CHF. The patient is on antibiotics and respiratory toilet. Her echo showed ejection fraction of 60% to 65%, moderate left ventricular hypertrophy, no pericardial effusion, calcification of mitral anulus and aortic valve. Based on her bilateral pulmonary changes, she may have heart failure although pneumonia is more likely due to given fever and elevated white count. I would give her a trial of Lasix after the potassium and magnesium is controlled, not before that. Her rate is controlled. She is on amiodarone. Also, thyroid function and liver function should be checked, better when she is more stable from her sepsis. Thank you for your consultation. Chiara Durant M.D. DR: Erickson JOB#: [id number] CC:
[2017-10-21 20:00] VITALS: BP 129/60
[2017-10-22] VITALS: BP 150/60
[2017-10-22] MEDS: Acetaminophen 650mg/20.3ml GT PRN ×2 (02:35→12:08)
[2017-10-22 04:00] VITALS: BP 124/72
[2017-10-22 05:14] LABS: BASOPHILS % (AUTO) 0.4 % (0.0-2.0); EOSINOPHILS % (AUTO) 1.5 % (0.0-3.0); HEMATOCRIT 28.4 % (37.0-47.0); HEMOGLOBIN 9.5 G/DL (12.0-16.0); LYMPHOCYTES % (AUTO) 12.4 % (20.0-45.0); MEAN CORPUSCULAR VOLUME 90 FL (80-99); MONOCYTES % (AUTO) 5.1 % (1.0-10.0); NEUTROPHILS % (AUTO) 80.5 % (45.0-75.0); PLATELET COUNT 371 K/UL (150-450); RED BLOOD COUNT 3.16 M/UL (4.20-5.40); RED CELL DISTRIBUTION WIDTH 13.9 % (11.6-14.8); WHITE BLOOD COUNT 17.2 K/UL (4.8-10.8)
[2017-10-22] MEDS: Vancomycin 1 GM in D5W 275 ML IVPB SCH (05:34)
[2017-10-22 05:50] LABS: ALANINE AMINOTRANSFERASE 31 U/L (12-78); ALBUMIN 1.9 G/DL (3.4-5.0); ALBUMIN/GLOBULIN RATIO 0.3 (1.0-2.7); ALKALINE PHOSPHATASE 83 U/L (46-116); ANION GAP 9 mmol/L (5-15); ASPARTATE AMINO TRANSFERASE 32 U/L (15-37); BILIRUBIN,TOTAL 0.2 MG/DL (0.2-1.0); BLOOD UREA NITROGEN 19 mg/dL (7-18); CALCIUM 9.2 MG/DL (8.5-10.1); CARBON DIOXIDE 27 MMOL/L (21-32); CHLORIDE 113 MMOL/L (98-107); CREATININE 1.1 MG/DL (0.55-1.30); POTASSIUM 3.5 MMOL/L (3.5-5.1); SODIUM 149 MMOL/L (136-145)
[2017-10-22 08:00] VITALS: BP 158/78
[2017-10-22] MEDS: Meropenem 2 GM in NS 110 ML IVPB SCH ×2 (09:10→20:32)
[2017-10-22] MEDS: Pantoprazole Inj IV SCH (09:11)
[2017-10-22] MEDS: Amiodarone 200mg tab GT SCH (09:11)
[2017-10-22] MEDS: Memantine 10mg tab GT SCH ×2 (09:12→18:28)
[2017-10-22] MEDS: LORazepam Inj 2mg/ml 1ml IV PRN (09:12)
[2017-10-22] MEDS: Heparin 5000 units/ml inj SUBQ SCH ×2 (09:17→20:37)
--- NOTE | 2017-10-22 10:04 | Diagnostic Imaging Report ---
Indication: Reason For Exam: DYSPNEA Technique: XRAY Chest 1v. Comparison: 10/20/2017 Findings: The cardiomediastinal silhouette is unchanged. No new infiltrates are identified. Impression: No significant change from prior examination.
[2017-10-22 12:00] VITALS: BP 128/59
--- NOTE | 2017-10-22 12:25 | Pulmonolgy Critical Care Note ---
Critical Care - Asmt/Plan Problems: (1) Acute and chronic respiratory failure (2) Septic shock (3) Encephalopathy (4) Cardiomyopathy (5) Feeding by G-tube (6) Anemia Respiratory: monitor respiratory rate, adjust FIO2, ABG Cardiac: continue pressors, stress echo Renal: F/U I&O, keep IV fluid Infectious Disease: check cultures Gastrointestinal: continue feedings/current rate Endocrine: monitor blood sugar, check HgA1C, continue sliding scale insulin Hematologic: monitor H/H, transfuse if hgb<8.5 Neurologic: PRN Ativan, PRN Morphine, keep patient comfortable Affect: PRN ativan Prophylaxis: Protonix Notes Reviewed: barley steeper, 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, consultants, case checkerterritory sales manager medical - Objective Last 24 Hour Vital Signs Date Time Temp Pulse Resp B/P (MAP) Pulse Ox O2 Delivery O2 Flow Rate FiO2 10/22/17 12:08 101.0 10/22/17 12:00 101.8 85 18 128/59 97 Mechanical Ventilator 35 101.8 10/22/17 12:00 35 10/22/17 11:16 89 19 35 10/22/17 09:29 101 24 35 10/22/17 08:00 99.0 85 20 158/78 100 Mechanical Ventilator 35 99.0 10/22/17 08:00 35 10/22/17 08:00 90 10/22/17 07:29 94 27 35 10/22/17 05:25 81 18 35 10/22/17 04:00 99.0 93 18 124/72 100 Mechanical Ventilator 35 99.0 10/22/17 04:00 35 10/22/17 04:00 89 10/22/17 03:06 87 18 35 10/22/17 01:03 82 18 35 10/22/17 00:00 35 10/22/17 00:00 99.0 86 18 150/60 100 Mechanical Ventilator 35 99.0 10/22/17 00:00 89 10/21/17 22:57 79 20 35 10/21/17 21:27 82 20 35 10/21/17 20:00 80 10/21/17 20:00 35 10/21/17 20:00 98.0 86 18 129/60 100 Mechanical Ventilator 35 98.0 10/21/17 19:18 87 20 35 10/21/17 16:49 87 20 35 10/21/17 16:00 99.0 85 19 142/65 100 Mechanical Ventilator 35 99.0 10/21/17 16:00 82 10/21/17 16:00 35 10/21/17 15:15 70 21 35 10/21/17 13:26 70 22 35 Status: awake HEENT: atraumatic Lungs: clear, chest wall tender Heart: HR/BP unstable Abdomen: soft, non-tender Micro: Microbiology Date/Time Source Procedure Growth Status 10/20/17 20:35 Blood Blood Culture - Preliminary Resulted 10/20/17 20:30 Blood Blood Culture - Preliminary NO GROWTH AFTER 24 HOURS Resulted 10/21/17 19:00 Nasopharynx Influenza Types A,B Antigen (SVEN) - Final Complete 10/21/17 03:00 Sputum Gram Stain - Final Resulted 10/21/17 03:00 Sputum Sputum Culture Pending Resulted Critical Care - Subjective ROS Limited/Unobtainable: No ICU Day: 2 Condition: critical FI02: 35 Vent Support Breath Rate: 18 Vent Support Mode: AC Vent Tidal Volume: 600 Sputum Amount: Moderate PEEP: 5.0 PIP: 40 Tube Feeding Amount: 30 I&O: Intake and Output 10/21/17 10/22/17 19:00 07:00 Intake Total 115 ml 598.3 ml Output Total 1 ml 700 ml Balance 114 ml -101.7 ml Intake IV Total 55 ml 238.3 ml Tube Feeding 60 ml 360 ml Output Urine Total 1 ml 700 ml # Bowel Movements 2 2 CXR: extensive infiltrate Labs: Laboratory Tests Test 10/22/17 03:45 White Blood Count 17.2 K/UL (4.8-10.8) H Red Blood Count 3.16 M/UL (4.20-5.40) L Hemoglobin 9.5 G/DL (12.0-16.0) L Hematocrit 28.4 % (37.0-47.0) L Mean Corpuscular Volume 90 FL (80-99) Mean Corpuscular Hemoglobin 30.1 PG (27.0-31.0) Mean Corpuscular Hemoglobin Concent 33.5 G/DL (32.0-36.0) Red Cell Distribution Width 13.9 % (11.6-14.8) Platelet Count 371 K/UL (150-450) Mean Platelet Volume 5.6 FL (6.5-10.1) L Neutrophils (%) (Auto) 80.5 % (45.0-75.0) H Lymphocytes (%) (Auto) 12.4 % (20.0-45.0) L Monocytes (%) (Auto) 5.1 % (1.0-10.0) Eosinophils (%) (Auto) 1.5 % (0.0-3.0) Basophils (%) (Auto) 0.4 % (0.0-2.0) Sodium Level 149 MMOL/L (136-145) H Potassium Level 3.5 MMOL/L (3.5-5.1) Chloride Level 113 MMOL/L (98-107) H Carbon Dioxide Level 27 MMOL/L (21-32) Anion Gap 9 mmol/L (5-15) Blood Urea Nitrogen 19 mg/dL (7-18) H Creatinine 1.1 MG/DL (0.55-1.30) Estimat Glomerular Filtration Rate mL/min (>60) Glucose Level 133 MG/DL (74-106) H Calcium Level 9.2 MG/DL (8.5-10.1) Magnesium Level 2.0 MG/DL (1.8-2.4) Total Bilirubin 0.2 MG/DL (0.2-1.0) Aspartate Amino Transf (AST/SGOT) 32 U/L (15-37) Alanine Aminotransferase (ALT/SGPT) 31 U/L (12-78) Alkaline Phosphatase 83 U/L (46-116) Troponin I 0.372 ng/mL (0.000-0.056) C-Reactive Protein, Quantitative 36.5 mg/dL (0.00-0.90) H Pro-B-Type Natriuretic Peptide 7195 pg/mL (0-125) H Total Protein 8.3 G/DL (6.4-8.2) H Albumin 1.9 G/DL (3.4-5.0) L Globulin 6.4 g/dL Albumin/Globulin Ratio 0.3 (1.0-2.7) L COBY LEBLANC Oct 22, 2017 12:25
--- NOTE | 2017-10-22 13:59 | Cardiology Progress Note ---
Assessment/Plan Assessment/Plan pneumonia, sepsis Subjective Subjective unresponsive, no ineraction Objective Last 24 Hour Vital Signs Date Time Temp Pulse Resp B/P (MAP) Pulse Ox O2 Delivery O2 Flow Rate FiO2 10/22/17 13:28 75 17 35 10/22/17 12:38 98.9 10/22/17 12:08 101.0 10/22/17 12:00 85 10/22/17 12:00 101.8 85 18 128/59 97 Mechanical Ventilator 35 101.8 10/22/17 12:00 35 10/22/17 11:16 89 19 35 10/22/17 09:29 101 24 35 10/22/17 08:00 99.0 85 20 158/78 100 Mechanical Ventilator 35 99.0 10/22/17 08:00 35 10/22/17 08:00 90 10/22/17 07:29 94 27 35 10/22/17 05:25 81 18 35 10/22/17 04:00 99.0 93 18 124/72 100 Mechanical Ventilator 35 99.0 10/22/17 04:00 35 10/22/17 04:00 89 10/22/17 03:06 87 18 35 10/22/17 01:03 82 18 35 10/22/17 00:00 35 10/22/17 00:00 99.0 86 18 150/60 100 Mechanical Ventilator 35 99.0 10/22/17 00:00 89 10/21/17 22:57 79 20 35 10/21/17 21:27 82 20 35 10/21/17 20:00 80 10/21/17 20:00 35 10/21/17 20:00 98.0 86 18 129/60 100 Mechanical Ventilator 35 98.0 10/21/17 19:18 87 20 35 10/21/17 16:49 87 20 35 10/21/17 16:00 99.0 85 19 142/65 100 Mechanical Ventilator 35 99.0 10/21/17 16:00 82 10/21/17 16:00 35 10/21/17 15:15 70 21 35 General Appearance: on vent EENT: other - left eye is closed Neck: other - trach Rhythm: NSR Cardiovascular: normal rate Respiratory/Chest: crackles/rales Abdomen: non tender, other - g tube Extremities: trace edema Intake and Output 10/21/17 10/22/17 19:00 07:00 Intake Total 115 ml 598.3 ml Output Total 1 ml 700 ml Balance 114 ml -101.7 ml Intake IV Total 55 ml 238.3 ml Tube Feeding 60 ml 360 ml Output Urine Total 1 ml 700 ml # Bowel Movements 2 2 Laboratory Tests Test 10/22/17 03:45 White Blood Count 17.2 K/UL (4.8-10.8) H Red Blood Count 3.16 M/UL (4.20-5.40) L Hemoglobin 9.5 G/DL (12.0-16.0) L Hematocrit 28.4 % (37.0-47.0) L Mean Corpuscular Volume 90 FL (80-99) Mean Corpuscular Hemoglobin 30.1 PG (27.0-31.0) Mean Corpuscular Hemoglobin Concent 33.5 G/DL (32.0-36.0) Red Cell Distribution Width 13.9 % (11.6-14.8) Platelet Count 371 K/UL (150-450) Mean Platelet Volume 5.6 FL (6.5-10.1) L Neutrophils (%) (Auto) 80.5 % (45.0-75.0) H Lymphocytes (%) (Auto) 12.4 % (20.0-45.0) L Monocytes (%) (Auto) 5.1 % (1.0-10.0) Eosinophils (%) (Auto) 1.5 % (0.0-3.0) Basophils (%) (Auto) 0.4 % (0.0-2.0) Sodium Level 149 MMOL/L (136-145) H Potassium Level 3.5 MMOL/L (3.5-5.1) Chloride Level 113 MMOL/L (98-107) H Carbon Dioxide Level 27 MMOL/L (21-32) Anion Gap 9 mmol/L (5-15) Blood Urea Nitrogen 19 mg/dL (7-18) H Creatinine 1.1 MG/DL (0.55-1.30) Estimat Glomerular Filtration Rate mL/min (>60) Glucose Level 133 MG/DL (74-106) H Calcium Level 9.2 MG/DL (8.5-10.1) Magnesium Level 2.0 MG/DL (1.8-2.4) Total Bilirubin 0.2 MG/DL (0.2-1.0) Aspartate Amino Transf (AST/SGOT) 32 U/L (15-37) Alanine Aminotransferase (ALT/SGPT) 31 U/L (12-78) Alkaline Phosphatase 83 U/L (46-116) Troponin I 0.372 ng/mL (0.000-0.056) C-Reactive Protein, Quantitative 36.5 mg/dL (0.00-0.90) H Pro-B-Type Natriuretic Peptide 7195 pg/mL (0-125) H Total Protein 8.3 G/DL (6.4-8.2) H Albumin 1.9 G/DL (3.4-5.0) L Globulin 6.4 g/dL Albumin/Globulin Ratio 0.3 (1.0-2.7) L Microbiology Date/Time Source Procedure Growth Status 10/20/17 20:35 Blood Blood Culture - Preliminary Resulted 10/20/17 20:30 Blood Blood Culture - Preliminary NO GROWTH AFTER 24 HOURS Resulted 10/21/17 19:00 Nasopharynx Influenza Types A,B Antigen (SVEN) - Final Complete 10/21/17 03:00 Sputum Gram Stain - Final Resulted 10/21/17 03:00 Sputum Sputum Culture Pending Resulted THU TRAN Oct 22, 2017 13:59
--- NOTE | 2017-10-22 14:50 | Cardiology Report ---
APPROVED REPORT EXAM: Two-dimensional and M-mode echocardiogram with Doppler and color Doppler. INDICATION LV FUNCTION M-Mode DIMENSIONS IVSd1.1 (0.7-1.1cm)Left Atrium (MM)1.9 (1.6-4.0cm) LVDd3.9 (3.5-5.6cm)Aortic Root3.4 (2.0-3.7cm) PWd1.3 (0.7-1.1cm)Aortic Cusp Exc.2.1 (1.5-2.0cm) IVSs1.5 cm LVDs2.6 (2.5-4.0cm) PWs1.5 cm Technically difficult study due to pts position . Normal left ventricular chamber size, systolic function and wall motion to extent visualized. Left ventricular ejection fraction estimated to be 60-65 %. Moderate left ventricular hypertrophy. No evidence of pericardial effusion. All other cardiac chamber sizes is within normal limits. Focal aortic valve sclerosis with adequate cusp excursion. Thickened mitral valve leaflets with normal excursion. Mitral annulus and aortic root calcification. Pulmonic valve not well visualized. Normal tricuspid valve structure. IVC dilated at 2.2 cm and non -collapsing with respiration , suggestive of increased RA pressure. A color flow and spectral Doppler study was performed and revealed: No aortic insufficiency. Mild mitral regurgitation . Mitral diastolic velocities suggest reduced left ventricular relaxation c/w mild LV diastolic dysfunction (Grade I) Mild tricuspid regurgitation. Tricuspid systolic velocities suggests peak right ventricular systolic pressure of 24 mmHg, consistent with mild pulmonary hypertension. Trace Pulmonic regurgitation present.
[2017-10-22 16:00] VITALS: BP 159/77
[2017-10-22] MEDS ORDERED: Tubing IV Secondary IV ONE (16:20)
[2017-10-22] MEDS ORDERED: NS 275ml ONE (16:20)
--- NOTE | 2017-10-22 16:26 | Cardiology Report ---
APPROVED REPORT EKG Measurement Heart [id number] Normal sinus rhythm Left ventricular hypertrophy with repolarization abnormality Cannot rule out Inferior infarct, age undetermined Prolonged QT Abnormal ECG
[2017-10-22 20:00] VITALS: BP 121/60
[2017-10-23] VITALS: BP 121/78
[2017-10-23 04:00] VITALS: BP 136/64
[2017-10-23 07:31] LABS: HEMATOCRIT 29.5 % (37.0-47.0); HEMOGLOBIN 9.8 G/DL (12.0-16.0); MEAN CORPUSCULAR VOLUME 91 FL (80-99); PLATELET COUNT 412 K/UL (150-450); RED BLOOD COUNT 3.25 M/UL (4.20-5.40); RED CELL DISTRIBUTION WIDTH 13.7 % (11.6-14.8)
[2017-10-23 07:48] LABS: ALANINE AMINOTRANSFERASE 38 U/L (12-78); ALBUMIN/GLOBULIN RATIO 0.3 (1.0-2.7); ALKALINE PHOSPHATASE 81 U/L (46-116); ANION GAP 11 mmol/L (5-15); ASPARTATE AMINO TRANSFERASE 36 U/L (15-37); BILIRUBIN,TOTAL 0.3 MG/DL (0.2-1.0); BLOOD UREA NITROGEN 19 mg/dL (7-18); CALCIUM 9.6 MG/DL (8.5-10.1); CARBON DIOXIDE 29 MMOL/L (21-32); CHLORIDE 115 MMOL/L (98-107); CREATININE 1.2 MG/DL (0.55-1.30); POTASSIUM 3.5 MMOL/L (3.5-5.1); SODIUM 155 MMOL/L (136-145)
[2017-10-23 08:00] VITALS: BP 141/70
[2017-10-23] MEDS: Vancomycin 1 GM in D5W 275 ML IVPB SCH (08:28)
[2017-10-23] MEDS: Heparin 5000 units/ml inj SUBQ SCH ×2 (10:07→21:10)
[2017-10-23] MEDS: Amiodarone 200mg tab GT SCH (10:07)
[2017-10-23] MEDS: Pantoprazole Inj IV SCH (10:08)
[2017-10-23] MEDS: Memantine 10mg tab GT SCH ×2 (10:08→17:17)
[2017-10-23] MEDS: Meropenem 2 GM in NS 110 ML IVPB SCH ×2 (10:18→21:38)
--- NOTE | 2017-10-23 11:16 | Infectious Diseases Prog Note ---
Assessment/Plan Assessment/Plan Assessment: Bacteremia : GPC 1/2 ? contaminant Sepsis- PNA- r/o MDRO Scx: GNR -CXR: Bilateral pleural effusions or chronic pleural thickening. Extensive bilateral pulmonary infiltrates with some nodularity. Though this may be related to congestive heart failure and pulmonary edema, the possibility of malignancy is not excluded. Clinical correlation or further evaluation suggested. 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 History of seizure disorder Ventilator-dependent respiratory failure History of lower extremity DVT History of PEG and trach placement Plan: -continue IV Vancomycin and Meropenem d# 3 10/20 SP Unasyn #1, Flagyl #1 08/26 SP IV Meropenem and INH COlistin #14 P vancomycin and Zosyn d# 5 07/22 SP INH/IV Colistin #13, Tygacil #7 07/21 SP Meropenem d# 14/14 07/13 SP IV Vancomycin # 7 07/08 SP Amikacin d# 2 -Influenza screen -CT chest -f/u cx ( Sp, Bl ) -Monitor CBC/BMP, temperatures -ETT/PEG care -aspiration precautions Subjective Allergies: Coded Allergies: ASPIRIN (Verified Allergy, Unknown, 07/07/17) Subjective low grade fever Objective Vital Signs Last 24 Hour Vital Signs Date Time Temp Pulse Resp B/P (MAP) Pulse Ox O2 Delivery O2 Flow Rate FiO2 10/23/17 10:35 92 18 35 10/23/17 08:33 85 18 35 10/23/17 08:00 100.0 94 18 141/70 97 Mechanical Ventilator 35 100.0 10/23/17 08:00 35 10/23/17 07:26 102 10/23/17 07:07 89 24 35 10/23/17 05:19 97 21 35 10/23/17 04:00 98.9 78 18 136/64 98 Mechanical Ventilator 35 98.9 10/23/17 04:00 35 10/23/17 04:00 78 10/23/17 03:22 97 24 35 10/23/17 00:35 87 21 35 10/23/17 00:00 98.6 76 18 121/78 99 Mechanical Ventilator 35 98.6 10/23/17 00:00 35 2/26/18 00:00 77 10/22/17 23:45 75 18 35 10/22/17 21:24 72 18 35 10/22/17 20:00 35 10/22/17 20:00 98.2 74 18 121/60 99 Mechanical Ventilator 35 98.2 10/22/17 20:00 67 10/22/17 19:35 79 18 35 10/22/17 17:16 81 18 35 10/22/17 16:04 66 10/22/17 16:00 98.4 67 18 159/77 98 Mechanical Ventilator 35 98.4 10/22/17 16:00 35 10/22/17 15:15 68 17 35 10/22/17 13:28 75 17 35 10/22/17 12:38 98.9 10/22/17 12:08 101.0 10/22/17 12:00 85 10/22/17 12:00 101.8 85 18 128/59 97 Mechanical Ventilator 35 101.8 10/22/17 12:00 35 10/22/17 11:16 89 19 35 Height (Feet): 5 Height (Inches): 3.00 Weight (Pounds): 130 HEENT: atraumatic Respiratory/Chest: no respiratory distress Cardiovascular: no gallop/murmur Abdomen: soft, non tender Microbiology Date/Time Source Procedure Growth Status 10/20/17 20:35 Blood Blood Culture - Preliminary Staphylococcus Species Resulted 10/20/17 20:30 Blood Blood Culture - Preliminary NO GROWTH AFTER 48 HOURS Resulted 10/21/17 19:00 Nasopharynx Influenza Types A,B Antigen (SVEN) - Final Complete 10/21/17 03:00 Sputum Gram Stain - Final Resulted 10/21/17 03:00 Sputum Culture - Preliminary Gram Negative Tom Resulted 10/20/17 20:30 Nasal Nares MRSA Culture - Final NO METHICILLIN RESISTANT STAPH AUREUS... Complete 10/20/17 20:30 Rectum VRE Culture - Final Enterococcus Faecalis - Vre Complete Laboratory Tests Test 10/23/17 05:00 White Blood Count 18.0 K/UL (4.8-10.8) H Red Blood Count 3.25 M/UL (4.20-5.40) L Hemoglobin 9.8 G/DL (12.0-16.0) L Hematocrit 29.5 % (37.0-47.0) L Mean Corpuscular Volume 91 FL (80-99) Mean Corpuscular Hemoglobin 30.1 PG (27.0-31.0) Mean Corpuscular Hemoglobin Concent 33.1 G/DL (32.0-36.0) Red Cell Distribution Width 13.7 % (11.6-14.8) Platelet Count 412 K/UL (150-450) Mean Platelet Volume 5.6 FL (6.5-10.1) L Neutrophils (%) (Auto) % (45.0-75.0) Lymphocytes (%) (Auto) % (20.0-45.0) Monocytes (%) (Auto) % (1.0-10.0) Eosinophils (%) (Auto) % (0.0-3.0) Basophils (%) (Auto) % (0.0-2.0) Differential Total Cells Counted 100 Neutrophils % (Manual) 76 % (45-75) H Lymphocytes % (Manual) 12 % (20-45) L Monocytes % (Manual) 11 % (1-10) H Eosinophils % (Manual) 1 % (0-3) Basophils % (Manual) 0 % (0-2) Band Neutrophils 0 % (0-8) Platelet Estimate Adequate Platelet Morphology Normal Hypochromasia 2+ Anisocytosis 1+ Spherocytes 1+ Sodium Level 155 MMOL/L (136-145) H Potassium Level 3.5 MMOL/L (3.5-5.1) Chloride Level 115 MMOL/L (98-107) H Carbon Dioxide Level 29 MMOL/L (21-32) Anion Gap 11 mmol/L (5-15) Blood Urea Nitrogen 19 mg/dL (7-18) H Creatinine 1.2 MG/DL (0.55-1.30) Estimat Glomerular Filtration Rate mL/min (>60) Glucose Level 103 MG/DL (74-106) Calcium Level 9.6 MG/DL (8.5-10.1) Phosphorus Level 3.0 MG/DL (2.5-4.9) Magnesium Level 2.2 MG/DL (1.8-2.4) Total Bilirubin 0.3 MG/DL (0.2-1.0) Aspartate Amino Transf (AST/SGOT) 36 U/L (15-37) Alanine Aminotransferase (ALT/SGPT) 38 U/L (12-78) Alkaline Phosphatase 81 U/L (46-116) Troponin I 0.233 ng/mL (0.000-0.056) Total Protein 8.9 G/DL (6.4-8.2) H Albumin 2.0 G/DL (3.4-5.0) L Globulin 6.9 g/dL Albumin/Globulin Ratio 0.3 (1.0-2.7) L Random Vancomycin Level 10.5 ug/mL Current Medications Medications (Trade) Dose Ordered Sig/Torsten Route PRN Reason Start Time Stop Time Status Last Admin Dose Admin Acetaminophen (Tylenol) 650 mg Q4H PRN GT Mild Pain/Temp > 100.5 10/21/17 06:30 11/20/17 06:29 10/22/17 12:08 Albuterol/ Ipratropium (Albuterol/ Ipratropium) 3 ml EVERY 4 HOURS PRN HHN Shortness of Breath 10/20/17 22:30 10/25/17 22:29 Amiodarone HCl (Cordarone) 200 mg DAILY GT 10/21/17 09:00 11/20/17 08:59 10/23/17 10:07 Dextrose (Dextrose 50%) STAT PRN IV Hypoglycemia 10/20/17 22:30 11/19/17 22:29 Heparin Sodium (Porcine) (Heparin 5000 units/ml) 5,000 units EVERY 12 HOURS SUBQ 10/21/17 09:00 11/20/17 08:59 10/23/17 10:07 Lorazepam (Ativan 2mg/ml 1ml) 2 mg EVERY 2 HOURS PRN IV For Anxiety 10/20/17 22:30 10/27/17 22:29 10/22/17 09:12 Memantine (Namenda) 5 mg TWICE A DAY GT 10/21/17 09:00 11/20/17 08:59 10/23/17 10:08 Meropenem 2 gm/ Sodium Chloride 110 ml @ 220 mls/hr Q12HR IVPB 10/22/17 09:00 10/27/17 08:59 10/23/17 10:18 Morphine Sulfate (Morphine Sulfate) 4 mg EVERY 4 HOURS PRN IVP Severe Pain (Pain Scale 7-10) 10/20/17 22:30 10/27/17 22:29 Ondansetron HCl (Zofran) 4 mg Q6H PRN IVP Nausea & Vomiting 10/20/17 22:30 11/19/17 22:29 Pantoprazole (Protonix) 40 mg DAILY IV 10/21/17 09:00 11/20/17 08:59 10/23/17 10:08 Polyethylene Glycol (Miralax) 17 gm DAILYPRN PRN ORAL Constipation 10/20/17 22:30 11/19/17 22:29 Trazodone HCl (Desyrel) 50 mg BEDTIME PRN GT insomnia 10/20/17 22:30 11/19/17 22:29 Vancomycin HCl (Vanco rx to dose) 1 ea DAILYPRN PRN MISC RX TO DOSE PROTOCOL 10/21/17 13:00 11/20/17 12:59 Vancomycin HCl 1 gm/Dextrose 275 ml @ 183.3 mls/ hr Q24H IVPB 10/21/17 06:00 10/26/17 05:59 10/23/17 08:28 COLBY BRICENO M.D. Oct 23, 2017 11:16
[2017-10-23 12:00] VITALS: BP 130/59
--- NOTE | 2017-10-23 12:01 | Pulmonolgy Critical Care Note ---
Critical Care - Asmt/Plan Problems: (1) Acute and chronic respiratory failure (2) Septic shock (3) Encephalopathy (4) Cardiomyopathy (5) Feeding by G-tube (6) Anemia Respiratory: monitor respiratory rate, adjust FIO2 Cardiac: continue to monitor HR/BP Renal: F/U I&O Infectious Disease: check cultures, continue antibiotics Gastrointestinal: hold feedings Endocrine: check TSH, continue sliding scale insulin Hematologic: monitor H/H, transfuse if hgb<8.5 Neurologic: PRN Morphine, keep patient comfortable Notes Reviewed: shear tender, 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, consultants, case manager specialistdigital media manager - Objective Last 24 Hour Vital Signs Date Time Temp Pulse Resp B/P (MAP) Pulse Ox O2 Delivery O2 Flow Rate FiO2 10/23/17 10:35 92 18 35 10/23/17 08:33 85 18 35 10/23/17 08:00 100.0 94 18 141/70 97 Mechanical Ventilator 35 100.0 10/23/17 08:00 35 10/23/17 07:26 102 10/23/17 07:07 89 24 35 10/23/17 05:19 97 21 35 10/23/17 04:00 98.9 78 18 136/64 98 Mechanical Ventilator 35 98.9 10/23/17 04:00 35 10/23/17 04:00 78 10/23/17 03:22 97 24 35 10/23/17 00:35 87 21 35 10/23/17 00:00 98.6 76 18 121/78 99 Mechanical Ventilator 35 98.6 10/23/17 00:00 35 10/23/17 00:00 77 10/22/17 23:45 75 18 35 10/22/17 21:24 72 18 35 10/22/17 20:00 35 10/22/17 20:00 98.2 74 18 121/60 99 Mechanical Ventilator 35 98.2 10/22/17 20:00 67 10/22/17 19:35 79 18 35 10/22/17 17:16 81 18 35 10/22/17 16:04 66 10/22/17 16:00 98.4 67 18 159/77 98 Mechanical Ventilator 35 98.4 10/22/17 16:00 35 10/22/17 15:15 68 17 35 10/22/17 13:28 75 17 35 2/25/18 12:38 98.9 10/22/17 12:08 101.0 10/22/17 12:00 85 10/22/17 12:00 101.8 85 18 128/59 97 Mechanical Ventilator 35 101.8 10/22/17 12:00 35 Status: awake Condition: critical HEENT: atraumatic Lungs: clear Heart: HR/BP stable, regular Abdomen: non-tender, active bowel sounds Extremities: no C/C/E Decubiti: location Micro: Microbiology Date/Time Source Procedure Growth Status 10/20/17 20:35 Blood Blood Culture - Preliminary Staphylococcus Species Resulted 10/20/17 20:30 Blood Blood Culture - Preliminary Resulted 10/21/17 19:00 Nasopharynx Influenza Types A,B Antigen (SVEN) - Final Complete 10/21/17 03:00 Sputum Gram Stain - Final Resulted 10/21/17 03:00 Sputum Culture - Preliminary Gram Negative Tom Resulted 10/20/17 20:30 Nasal Nares MRSA Culture - Final NO METHICILLIN RESISTANT STAPH AUREUS... Complete 10/20/17 20:30 Rectum VRE Culture - Final Enterococcus Faecalis - Vre Complete Critical Care - Subjective ROS Limited/Unobtainable: Yes ICU Day: 3 Interval Events: still febrile, looks comfortable Condition: critical EKG Rhythm: Sinus Rhythm FI02: 35 Vent Support Breath Rate: 18 Vent Support Mode: AC Vent Tidal Volume: 600 Sputum Amount: Moderate PEEP: 5.0 PIP: 35 Tube Feeding Amount: 30 I&O: Intake and Output 10/22/17 10/23/17 19:00 07:00 Intake Total 741.7 ml 470 ml Output Total 100 ml 600 ml Balance 641.7 ml -130 ml Intake Free Water 150 ml IV Total 201.7 ml 110 ml Tube Feeding 390 ml 360 ml Output Urine Total 100 ml 600 ml # Voids 2 CXR: no change Labs: Laboratory Tests Test 10/23/17 05:00 White Blood Count 18.0 K/UL (4.8-10.8) H Red Blood Count 3.25 M/UL (4.20-5.40) L Hemoglobin 9.8 G/DL (12.0-16.0) L Hematocrit 29.5 % (37.0-47.0) L Mean Corpuscular Volume 91 FL (80-99) Mean Corpuscular Hemoglobin 30.1 PG (27.0-31.0) Mean Corpuscular Hemoglobin Concent 33.1 G/DL (32.0-36.0) Red Cell Distribution Width 13.7 % (11.6-14.8) Platelet Count 412 K/UL (150-450) Mean Platelet Volume 5.6 FL (6.5-10.1) L Neutrophils (%) (Auto) % (45.0-75.0) Lymphocytes (%) (Auto) % (20.0-45.0) Monocytes (%) (Auto) % (1.0-10.0) Eosinophils (%) (Auto) % (0.0-3.0) Basophils (%) (Auto) % (0.0-2.0) Differential Total Cells Counted 100 Neutrophils % (Manual) 76 % (45-75) H Lymphocytes % (Manual) 12 % (20-45) L Monocytes % (Manual) 11 % (1-10) H Eosinophils % (Manual) 1 % (0-3) Basophils % (Manual) 0 % (0-2) Band Neutrophils 0 % (0-8) Platelet Estimate Adequate Platelet Morphology Normal Hypochromasia 2+ Anisocytosis 1+ Spherocytes 1+ Sodium Level 155 MMOL/L (136-145) H Potassium Level 3.5 MMOL/L (3.5-5.1) Chloride Level 115 MMOL/L (98-107) H Carbon Dioxide Level 29 MMOL/L (21-32) Anion Gap 11 mmol/L (5-15) Blood Urea Nitrogen 19 mg/dL (7-18) H Creatinine 1.2 MG/DL (0.55-1.30) Estimat Glomerular Filtration Rate mL/min (>60) Glucose Level 103 MG/DL (74-106) Calcium Level 9.6 MG/DL (8.5-10.1) Phosphorus Level 3.0 MG/DL (2.5-4.9) Magnesium Level 2.2 MG/DL (1.8-2.4) Total Bilirubin 0.3 MG/DL (0.2-1.0) Aspartate Amino Transf (AST/SGOT) 36 U/L (15-37) Alanine Aminotransferase (ALT/SGPT) 38 U/L (12-78) Alkaline Phosphatase 81 U/L (46-116) Troponin I 0.233 ng/mL (0.000-0.056) Total Protein 8.9 G/DL (6.4-8.2) H Albumin 2.0 G/DL (3.4-5.0) L Globulin 6.9 g/dL Albumin/Globulin Ratio 0.3 (1.0-2.7) L Random Vancomycin Level 10.5 ug/mL COBY LEBLANC Oct 23, 2017 12:01
--- NOTE | 2017-10-23 12:56 | Diagnostic Imaging Report ---
Indication: Dyspnea Comparison: 10/22/2017 A single view chest radiograph was obtained. Findings: Pulmonary vascular congestion appears slightly improved since the last exam. Suspect small bilateral pleural effusions. Suspect hyperinflation of the lungs. Cardiomegaly is also slightly improved. Tracheostomy noted. IMPRESSION: Evidence of interstitial edema/CHF with some improvement since the last examination. Suspect bilateral pleural effusions as well. COPD
[2017-10-23 16:00] VITALS: BP 134/55
--- NOTE | 2017-10-23 16:23 | Diagnostic Imaging Report ---
Indication: Chest pain Technique: Continuous helical transaxial imaging of the chest was obtained from the thoracic inlet to the upper abdomen. No intravenous contrast was administered. Coronal 2-D reformats were also obtained. Total Dose length Product (DLP): 965.[address] Dose Index Volume (CTDIvol): 26.15 mGy Comparison: none Findings: Aorta is moderately calcified. Tracheostomy noted. There are calcifications in the mediastinum consistent with old granulomatous disease. Within the lower lobes there are air bronchograms indicative of consolidative opacities/airspace disease. Findings suspicious for pneumonia. Mild cardiomegaly is present. Some patchy interstitial infiltrates also demonstrated in the upper lobes particularly on the right. Coronary calcific is also noted. Visualized part of the upper abdomen shows a gastrostomy tube. IMPRESSION: Basilar consolidationairspace, primarily disease with a minor interstitial component suspicious for pneumonia. Please correlate clinically. Atherosclerotic disease. Old granulomatous disease Tracheostomy Gastrostomy The CT scanner at [facility] is accredited by the [employer] and the scans are performed using dose optimization techniques as appropriate to a performed exam including Automatic Exposure control.
[2017-10-23 20:00] VITALS: BP 144/56
--- NOTE | 2017-10-23 20:53 | Cardiology Progress Note ---
Assessment/Plan Assessment/Plan 1. respiratyory fialrue 2. Pulmonary infiltrates. 3. PAF 4. Anemia. 5. sepsis 6. Gastrostomy tube dependence. 7. Ventilator dependence 8. hyper natremia tele sinus na is worse not on diuretics bp is better elevated gammaglobulin not clear if poly or monoclonal check tsh repat ekg may need to hold amiod if qt prolonged k wupplemetn Subjective ROS Limited/Unobtainable: Yes Objective Last 24 Hour Vital Signs Date Time Temp Pulse Resp B/P (MAP) Pulse Ox O2 Delivery O2 Flow Rate FiO2 10/23/17 20:00 98.2 68 18 144/56 99 Mechanical Ventilator 35 98.2 10/23/17 19:18 58 18 35 10/23/17 16:45 69 18 35 10/23/17 16:00 97.9 88 20 134/55 98 Mechanical Ventilator 35 97.9 10/23/17 16:00 35 10/23/17 15:31 83 10/23/17 15:07 77 19 35 10/23/17 13:26 79 18 35 10/23/17 12:00 35 10/23/17 12:00 100.0 77 18 130/59 95 Mechanical Ventilator 35 100.0 10/23/17 11:34 81 10/23/17 10:35 92 18 35 10/23/17 08:33 85 18 35 10/23/17 08:00 100.0 94 18 141/70 97 Mechanical Ventilator 35 100.0 10/23/17 08:00 35 10/23/17 07:26 102 10/23/17 07:07 89 24 35 10/23/17 05:19 97 21 35 10/23/17 04:00 98.9 78 18 136/64 98 Mechanical Ventilator 35 98.9 10/23/17 04:00 35 10/23/17 04:00 78 10/23/17 03:22 97 24 35 10/23/17 00:35 87 21 35 10/23/17 00:00 98.6 76 18 121/78 99 Mechanical Ventilator 35 98.6 10/23/17 00:00 35 10/23/17 00:00 77 10/22/17 23:45 75 18 35 10/22/17 21:24 72 18 35 General Appearance: on vent, patient on isolation, other - comfortable Intake and Output 10/22/17 10/23/17 19:00 07:00 Intake Total 741.7 ml 470 ml Output Total 100 ml 600 ml Balance 641.7 ml -130 ml Intake Free Water 150 ml IV Total 201.7 ml 110 ml Tube Feeding 390 ml 360 ml Output Urine Total 100 ml 600 ml # Voids 2 Laboratory Tests Test 10/23/17 05:00 White Blood Count 18.0 K/UL (4.8-10.8) H Red Blood Count 3.25 M/UL (4.20-5.40) L Hemoglobin 9.8 G/DL (12.0-16.0) L Hematocrit 29.5 % (37.0-47.0) L Mean Corpuscular Volume 91 FL (80-99) Mean Corpuscular Hemoglobin 30.1 PG (27.0-31.0) Mean Corpuscular Hemoglobin Concent 33.1 G/DL (32.0-36.0) Red Cell Distribution Width 13.7 % (11.6-14.8) Platelet Count 412 K/UL (150-450) Mean Platelet Volume 5.6 FL (6.5-10.1) L Neutrophils (%) (Auto) % (45.0-75.0) Lymphocytes (%) (Auto) % (20.0-45.0) Monocytes (%) (Auto) % (1.0-10.0) Eosinophils (%) (Auto) % (0.0-3.0) Basophils (%) (Auto) % (0.0-2.0) Differential Total Cells Counted 100 Neutrophils % (Manual) 76 % (45-75) H Lymphocytes % (Manual) 12 % (20-45) L Monocytes % (Manual) 11 % (1-10) H Eosinophils % (Manual) 1 % (0-3) Basophils % (Manual) 0 % (0-2) Band Neutrophils 0 % (0-8) Platelet Estimate Adequate Platelet Morphology Normal Hypochromasia 2+ Anisocytosis 1+ Spherocytes 1+ Sodium Level 155 MMOL/L (136-145) H Potassium Level 3.5 MMOL/L (3.5-5.1) Chloride Level 115 MMOL/L (98-107) H Carbon Dioxide Level 29 MMOL/L (21-32) Anion Gap 11 mmol/L (5-15) Blood Urea Nitrogen 19 mg/dL (7-18) H Creatinine 1.2 MG/DL (0.55-1.30) Estimat Glomerular Filtration Rate mL/min (>60) Glucose Level 103 MG/DL (74-106) Calcium Level 9.6 MG/DL (8.5-10.1) Phosphorus Level 3.0 MG/DL (2.5-4.9) Magnesium Level 2.2 MG/DL (1.8-2.4) Total Bilirubin 0.3 MG/DL (0.2-1.0) Aspartate Amino Transf (AST/SGOT) 36 U/L (15-37) Alanine Aminotransferase (ALT/SGPT) 38 U/L (12-78) Alkaline Phosphatase 81 U/L (46-116) Troponin I 0.233 ng/mL (0.000-0.056) Total Protein 8.9 G/DL (6.4-8.2) H Albumin 2.0 G/DL (3.4-5.0) L Globulin 6.9 g/dL Albumin/Globulin Ratio 0.3 (1.0-2.7) L Random Vancomycin Level 10.5 ug/mL Microbiology Date/Time Source Procedure Growth Status 10/21/17 19:00 Nasopharynx Influenza Types A,B Antigen (SVEN) - Final Complete 10/21/17 03:00 Sputum Gram Stain - Final Resulted 10/21/17 03:00 Sputum Culture - Preliminary Gram Negative Tom Resulted ALAINA SINGLETON Oct 23, 2017 20:53
[2017-10-24] VITALS: BP 105/52
[2017-10-24] MEDS: LORazepam Inj 2mg/ml 1ml IV PRN (03:14)
[2017-10-24 04:00] VITALS: BP 141/72
[2017-10-24] MEDS: Vancomycin 1 GM in D5W 275 ML IVPB SCH (06:13)
[2017-10-24 06:31] LABS: ALANINE AMINOTRANSFERASE 44 U/L (12-78); ALBUMIN 1.8 G/DL (3.4-5.0); ALBUMIN/GLOBULIN RATIO 0.3 (1.0-2.7); ALKALINE PHOSPHATASE 70 U/L (46-116); ANION GAP 8 mmol/L (5-15); ASPARTATE AMINO TRANSFERASE 45 U/L (15-37); BILIRUBIN,TOTAL 0.3 MG/DL (0.2-1.0); BLOOD UREA NITROGEN 14 mg/dL (7-18); CALCIUM 9.1 MG/DL (8.5-10.1); CARBON DIOXIDE 28 MMOL/L (21-32); CHLORIDE 109 MMOL/L (98-107); PHOSPHORUS 2.4 MG/DL (2.5-4.9); POTASSIUM 3.6 MMOL/L (3.5-5.1); SODIUM 145 MMOL/L (136-145)
[2017-10-24 06:41] LABS: BASOPHILS % (AUTO) 0.6 % (0.0-2.0); EOSINOPHILS % (AUTO) 1.9 % (0.0-3.0); HEMOGLOBIN 9.6 G/DL (12.0-16.0); LYMPHOCYTES % (AUTO) 13.2 % (20.0-45.0); MEAN CORPUSCULAR VOLUME 91 FL (80-99); MONOCYTES % (AUTO) 6.2 % (1.0-10.0); NEUTROPHILS % (AUTO) 78.2 % (45.0-75.0); PLATELET COUNT 440 K/UL (150-450); RED BLOOD COUNT 3.28 M/UL (4.20-5.40); RED CELL DISTRIBUTION WIDTH 13.6 % (11.6-14.8); WHITE BLOOD COUNT 17.6 K/UL (4.8-10.8)
[2017-10-24 08:00] VITALS: BP 152/99
[2017-10-24] MEDS: Pantoprazole Inj IV SCH (08:00)
[2017-10-24] MEDS: Memantine 10mg tab GT SCH ×2 (08:00→17:55)
[2017-10-24] MEDS: Heparin 5000 units/ml inj SUBQ SCH ×2 (08:01→21:23)
--- NOTE | 2017-10-24 09:02 | Infectious Diseases Prog Note ---
Assessment/Plan Assessment/Plan Assessment: Bacteremia : CoNS 1/2s setts ? contaminant Sepsis- PNA- MDRO Scx: PSA 10/23 CT: Basilar consolidationairspace, primarily disease with a minor interstitial component suspicious for pneumonia -CXR: Bilateral pleural effusions or chronic pleural thickening. Extensive bilateral pulmonary infiltrates with some nodularity. Though this may be related to congestive heart failure and pulmonary edema, the possibility of malignancy is not excluded. Clinical correlation or further evaluation suggested. 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 History of seizure disorder Ventilator-dependent respiratory failure History of lower extremity DVT History of PEG and trach placement Plan: -continue IV Vancomycin d # 4 and change Meropenem d# 4 to Cefepime d# / 10/20 SP Unasyn #1, Flagyl #1 08/26 SP IV Meropenem and INH COlistin #14 P vancomycin and Zosyn d# 5 07/22 SP INH/IV Colistin #13, Tygacil #7 07/21 SP Meropenem d# 14/14 07/13 SP IV Vancomycin # 7 07/08 SP Amikacin d# 2 -f/u cx ( Sp, Bl ) -Monitor CBC/BMP, temperatures -ETT/PEG care -aspiration precautions Subjective Allergies: Coded Allergies: ASPIRIN (Verified Allergy, Unknown, 07/07/17) Subjective afebrile Objective Vital Signs Last 24 Hour Vital Signs Date Time Temp Pulse Resp B/P (MAP) Pulse Ox O2 Delivery O2 Flow Rate FiO2 10/24/17 06:55 86 29 35 10/24/17 05:16 69 18 35 10/24/17 04:00 98.8 68 18 141/72 100 Mechanical Ventilator 35 98.8 10/24/17 04:00 89 10/24/17 04:00 35 10/24/17 02:32 62 18 35 10/24/17 00:58 57 18 35 10/24/17 00:00 97.9 62 18 105/52 99 Mechanical Ventilator 35 97.9 10/23/17 23:27 65 18 35 10/23/17 21:05 67 18 35 10/23/17 20:00 98.2 68 18 144/56 99 Mechanical Ventilator 35 98.2 2/26/18 20:00 35 10/23/17 20:00 60 10/23/17 19:18 58 18 35 10/23/17 16:45 69 18 35 10/23/17 16:00 97.9 88 20 134/55 98 Mechanical Ventilator 35 97.9 10/23/17 16:00 35 10/23/17 15:31 83 10/23/17 15:07 77 19 35 10/23/17 13:26 79 18 35 10/23/17 12:00 35 10/23/17 12:00 100.0 77 18 130/59 95 Mechanical Ventilator 35 100.0 10/23/17 11:34 81 10/23/17 10:35 92 18 35 Height (Feet): 5 Height (Inches): 3.00 Weight (Pounds): 130 HEENT: mucous membranes moist Respiratory/Chest: normal breath sounds Cardiovascular: normal rate Abdomen: no organomegaly Microbiology Date/Time Source Procedure Growth Status 10/22/17 16:55 Blood Blood Culture - Preliminary NO GROWTH AFTER 24 HOURS Resulted 10/22/17 16:35 Blood Blood Culture - Preliminary NO GROWTH AFTER 24 HOURS Resulted 10/21/17 19:00 Nasopharynx Influenza Types A,B Antigen (SVEN) - Final Complete Laboratory Tests Test 10/24/17 05:05 White Blood Count 17.6 K/UL (4.8-10.8) H Red Blood Count 3.28 M/UL (4.20-5.40) L Hemoglobin 9.6 G/DL (12.0-16.0) L Hematocrit 30.0 % (37.0-47.0) L Mean Corpuscular Volume 91 FL (80-99) Mean Corpuscular Hemoglobin 29.4 PG (27.0-31.0) Mean Corpuscular Hemoglobin Concent 32.2 G/DL (32.0-36.0) Red Cell Distribution Width 13.6 % (11.6-14.8) Platelet Count 440 K/UL (150-450) Mean Platelet Volume 5.9 FL (6.5-10.1) L Neutrophils (%) (Auto) 78.2 % (45.0-75.0) H Lymphocytes (%) (Auto) 13.2 % (20.0-45.0) L Monocytes (%) (Auto) 6.2 % (1.0-10.0) Eosinophils (%) (Auto) 1.9 % (0.0-3.0) Basophils (%) (Auto) 0.6 % (0.0-2.0) Erythrocyte Sedimentation Rate 117 MM/HR (0-42) H Sodium Level 145 MMOL/L (136-145) Potassium Level 3.6 MMOL/L (3.5-5.1) Chloride Level 109 MMOL/L (98-107) H Carbon Dioxide Level 28 MMOL/L (21-32) Anion Gap 8 mmol/L (5-15) Blood Urea Nitrogen 14 mg/dL (7-18) Creatinine 1.0 MG/DL (0.55-1.30) Estimat Glomerular Filtration Rate mL/min (>60) Glucose Level 111 MG/DL (74-106) H Calcium Level 9.1 MG/DL (8.5-10.1) Phosphorus Level 2.4 MG/DL (2.5-4.9) L Magnesium Level 1.8 MG/DL (1.8-2.4) Total Bilirubin 0.3 MG/DL (0.2-1.0) Aspartate Amino Transf (AST/SGOT) 45 U/L (15-37) H Alanine Aminotransferase (ALT/SGPT) 44 U/L (12-78) Alkaline Phosphatase 70 U/L (46-116) C-Reactive Protein, Quantitative 27.1 mg/dL (0.00-0.90) H Total Protein 8.2 G/DL (6.4-8.2) Albumin 1.8 G/DL (3.4-5.0) L Globulin 6.4 g/dL Albumin/Globulin Ratio 0.3 (1.0-2.7) L Current Medications Medications (Trade) Dose Ordered Sig/Torsten Route PRN Reason Start Time Stop Time Status Last Admin Dose Admin Acetaminophen (Tylenol) 650 mg Q4H PRN GT Mild Pain/Temp > 100.5 10/21/17 06:30 11/20/17 06:29 10/22/17 12:08 Albuterol/ Ipratropium (Albuterol/ Ipratropium) 3 ml EVERY 4 HOURS PRN HHN Shortness of Breath 10/20/17 22:30 10/25/17 22:29 Amiodarone HCl (Cordarone) 200 mg DAILY GT 10/21/17 09:00 11/20/17 08:59 10/23/17 10:07 Dextrose 1,000 ml @ 150 mls/hr Q6H40M IV 10/23/17 12:00 11/22/17 11:59 10/24/17 08:00 Dextrose (Dextrose 50%) STAT PRN IV Hypoglycemia 10/20/17 22:30 11/19/17 22:29 Heparin Sodium (Porcine) (Heparin 5000 units/ml) 5,000 units EVERY 12 HOURS SUBQ 10/21/17 09:00 11/20/17 08:59 10/24/17 08:01 Lorazepam (Ativan 2mg/ml 1ml) 2 mg EVERY 2 HOURS PRN IV For Anxiety 10/20/17 22:30 10/27/17 22:29 10/24/17 03:14 Memantine (Namenda) 5 mg TWICE A DAY GT 10/21/17 09:00 11/20/17 08:59 10/24/17 08:00 Meropenem 2 gm/ Sodium Chloride 110 ml @ 220 mls/hr Q12HR IVPB 10/22/17 09:00 10/27/17 08:59 10/23/17 21:38 Morphine Sulfate (Morphine Sulfate) 4 mg EVERY 4 HOURS PRN IVP Severe Pain (Pain Scale 7-10) 10/20/17 22:30 10/27/17 22:29 Ondansetron HCl (Zofran) 4 mg Q6H PRN IVP Nausea & Vomiting 10/20/17 22:30 11/19/17 22:29 Pantoprazole (Protonix) 40 mg DAILY IV 10/21/17 09:00 11/20/17 08:59 10/24/17 08:00 Polyethylene Glycol (Miralax) 17 gm DAILYPRN PRN ORAL Constipation 10/20/17 22:30 11/19/17 22:29 Trazodone HCl (Desyrel) 50 mg BEDTIME PRN GT insomnia 10/20/17 22:30 11/19/17 22:29 Vancomycin HCl (Vanco rx to dose) 1 ea DAILYPRN PRN MISC RX TO DOSE PROTOCOL 10/21/17 13:00 11/20/17 12:59 Vancomycin HCl 1 gm/Dextrose 275 ml @ 183.3 mls/ hr Q24H IVPB 10/21/17 06:00 10/26/17 05:59 10/24/17 06:13 COLBY BRICENO M.D. Oct 24, 2017 09:02
[2017-10-24] MEDS: Amiodarone 200mg tab GT SCH (10:00)
[2017-10-24] MEDS: Meropenem 2 GM in NS 110 ML IVPB SCH (10:16)
--- NOTE | 2017-10-24 10:32 | Pulmonolgy Critical Care Note ---
Critical Care - Asmt/Plan Problems: (1) Acute and chronic respiratory failure (2) Septic shock (3) Encephalopathy (4) Cardiomyopathy (5) Feeding by G-tube (6) Anemia Respiratory: monitor respiratory rate, adjust FIO2, CXR Cardiac: continue to monitor HR/BP Renal: F/U I&O, keep IV fluid, check electrolytes Infectious Disease: check cultures, continue antibiotics Gastrointestinal: continue feedings/current rate Endocrine: monitor blood sugar, continue sliding scale insulin Hematologic: monitor H/H, transfuse if hgb<8.5 Neurologic: PRN Ativan, keep patient comfortable Prophylaxis: Protonix, Heparin Disposition: keep in ICU 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, 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 with: 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 - Objective Last 24 Hour Vital Signs Date Time Temp Pulse Resp B/P (MAP) Pulse Ox O2 Delivery O2 Flow Rate FiO2 10/24/17 09:01 65 18 35 10/24/17 08:00 98.2 85 18 152/99 99 Mechanical Ventilator 35 98.2 10/24/17 07:49 79 10/24/17 06:55 86 29 35 10/24/17 05:16 69 18 35 10/24/17 04:00 98.8 68 18 141/72 100 Mechanical Ventilator 35 98.8 10/24/17 04:00 89 10/24/17 04:00 35 10/24/17 02:32 62 18 35 10/24/17 00:58 57 18 35 10/24/17 00:00 97.9 62 18 105/52 99 Mechanical Ventilator 35 97.9 10/23/17 23:27 65 18 35 10/23/17 21:05 67 18 35 10/23/17 20:00 98.2 68 18 144/56 99 Mechanical Ventilator 35 98.2 10/23/17 20:00 35 10/23/17 20:00 60 10/23/17 19:18 58 18 35 10/23/17 16:45 69 18 35 10/23/17 16:00 97.9 88 20 134/55 98 Mechanical Ventilator 35 97.9 10/23/17 16:00 35 10/23/17 15:31 83 10/23/17 15:07 77 19 35 10/23/17 13:26 79 18 35 10/23/17 12:00 35 10/23/17 12:00 100.0 77 18 130/59 95 Mechanical Ventilator 35 100.0 10/23/17 11:34 81 10/23/17 10:35 92 18 35 Status: awake Condition: critical HEENT: atraumatic Neck: full ROM Lungs: clear Heart: HR/BP stable, HR/BP unstable Abdomen: soft, non-tender, feeding tube Extremities: edema Decubiti: stage Micro: Microbiology Date/Time Source Procedure Growth Status 10/22/17 16:55 Blood Blood Culture - Preliminary NO GROWTH AFTER 24 HOURS Resulted 10/22/17 16:35 Blood Blood Culture - Preliminary NO GROWTH AFTER 24 HOURS Resulted 10/21/17 19:00 Nasopharynx Influenza Types A,B Antigen (SVEN) - Final Complete Critical Care - Subjective ROS Limited/Unobtainable: No Condition: critical EKG Rhythm: Sinus Rhythm FI02: 35 Vent Support Breath Rate: 18 Vent Support Mode: AC Vent Tidal Volume: 600 Sputum Amount: Small PEEP: 5.0 PIP: 29 Tube Feeding Amount: 30 I&O: Intake and Output 10/23/17 10/24/17 18:59 06:59 Intake Total 1615.0 ml 1853.8 ml Output Total 1000 ml Balance 1615.0 ml 853.8 ml Intake Free Water 100 ml IV Total 1135.0 ml 1393.8 ml Tube Feeding 360 ml 360 ml Other 120 ml Output Urine Total 1000 ml # Bowel Movements 2 CXR: no change, CT reviewed Labs: Laboratory Tests Test 10/24/17 05:05 White Blood Count 17.6 K/UL (4.8-10.8) H Red Blood Count 3.28 M/UL (4.20-5.40) L Hemoglobin 9.6 G/DL (12.0-16.0) L Hematocrit 30.0 % (37.0-47.0) L Mean Corpuscular Volume 91 FL (80-99) Mean Corpuscular Hemoglobin 29.4 PG (27.0-31.0) Mean Corpuscular Hemoglobin Concent 32.2 G/DL (32.0-36.0) Red Cell Distribution Width 13.6 % (11.6-14.8) Platelet Count 440 K/UL (150-450) Mean Platelet Volume 5.9 FL (6.5-10.1) L Neutrophils (%) (Auto) 78.2 % (45.0-75.0) H Lymphocytes (%) (Auto) 13.2 % (20.0-45.0) L Monocytes (%) (Auto) 6.2 % (1.0-10.0) Eosinophils (%) (Auto) 1.9 % (0.0-3.0) Basophils (%) (Auto) 0.6 % (0.0-2.0) Erythrocyte Sedimentation Rate 117 MM/HR (0-42) H Sodium Level 145 MMOL/L (136-145) Potassium Level 3.6 MMOL/L (3.5-5.1) Chloride Level 109 MMOL/L (98-107) H Carbon Dioxide Level 28 MMOL/L (21-32) Anion Gap 8 mmol/L (5-15) Blood Urea Nitrogen 14 mg/dL (7-18) Creatinine 1.0 MG/DL (0.55-1.30) Estimat Glomerular Filtration Rate mL/min (>60) Glucose Level 111 MG/DL (74-106) H Calcium Level 9.1 MG/DL (8.5-10.1) Phosphorus Level 2.4 MG/DL (2.5-4.9) L Magnesium Level 1.8 MG/DL (1.8-2.4) Total Bilirubin 0.3 MG/DL (0.2-1.0) Aspartate Amino Transf (AST/SGOT) 45 U/L (15-37) H Alanine Aminotransferase (ALT/SGPT) 44 U/L (12-78) Alkaline Phosphatase 70 U/L (46-116) C-Reactive Protein, Quantitative 27.1 mg/dL (0.00-0.90) H Total Protein 8.2 G/DL (6.4-8.2) Albumin 1.8 G/DL (3.4-5.0) L Globulin 6.4 g/dL Albumin/Globulin Ratio 0.3 (1.0-2.7) L COBY LEBLANC Oct 24, 2017 10:32
[2017-10-24] MEDS: Cefepime HCl 2 GM in NS 55 ML IVPB SCH ×2 (10:53→21:21)
[2017-10-24 12:00] VITALS: BP 151/78
--- NOTE | 2017-10-24 14:55 | Cardiology Progress Note ---
Assessment/Plan Assessment/Plan 1. respiratyory fialrue 2. Pulmonary infiltrates. 3. PAF 4. Anemia. 5. sepsis 6. Gastrostomy tube dependence. 7. Ventilator dependence 8. hyper natremia 9. abn ekg with qt prolongation tele sinus na is worse not on diuretics bp is better elevated gammaglobulin not clear if poly or monoclonal check tsh repeat ekg may need to hold amiod if qt prolonged will supplemtn k and mg adn phosph hodl amiod ekg change form prio r will check trop however pt is nto a candidate for ny further cardiac therapy Subjective ROS Limited/Unobtainable: Yes Objective Last 24 Hour Vital Signs Date Time Temp Pulse Resp B/P (MAP) Pulse Ox O2 Delivery O2 Flow Rate FiO2 10/24/17 14:40 70 20 35 10/24/17 12:44 72 18 35 10/24/17 12:02 74 10/24/17 12:00 98.8 78 20 151/78 100 Mechanical Ventilator 35 98.8 10/24/17 12:00 35 10/24/17 10:48 68 18 35 10/24/17 09:01 65 18 35 10/24/17 08:00 98.2 85 18 152/99 99 Mechanical Ventilator 35 98.2 10/24/17 08:00 35 10/24/17 07:49 79 10/24/17 06:55 86 29 35 10/24/17 05:16 69 18 35 10/24/17 04:00 98.8 68 18 141/72 100 Mechanical Ventilator 35 98.8 10/24/17 04:00 89 10/24/17 04:00 35 10/24/17 02:32 62 18 35 10/24/17 00:58 57 18 35 10/24/17 00:00 97.9 62 18 105/52 99 Mechanical Ventilator 35 97.9 10/23/17 23:27 65 18 35 10/23/17 21:05 67 18 35 10/23/17 20:00 98.2 68 18 144/56 99 Mechanical Ventilator 35 98.2 10/23/17 20:00 35 10/23/17 20:00 60 10/23/17 19:18 58 18 35 10/23/17 16:45 69 18 35 10/23/17 16:00 97.9 88 20 134/55 98 Mechanical Ventilator 35 97.9 10/23/17 16:00 35 10/23/17 15:31 83 10/23/17 15:07 77 19 35 General Appearance: no apparent distress, on vent, patient on isolation Intake and Output 10/23/17 10/24/17 19:00 07:00 Intake Total 1623.8 ml 1965 ml Output Total 1000 ml Balance 1623.8 ml 965 ml Intake Free Water 100 ml IV Total 1143.8 ml 1535 ml Tube Feeding 360 ml 330 ml Other 120 ml Output Urine Total 1000 ml # Bowel Movements 2 Laboratory Tests Test 10/24/17 05:05 White Blood Count 17.6 K/UL (4.8-10.8) H Red Blood Count 3.28 M/UL (4.20-5.40) L Hemoglobin 9.6 G/DL (12.0-16.0) L Hematocrit 30.0 % (37.0-47.0) L Mean Corpuscular Volume 91 FL (80-99) Mean Corpuscular Hemoglobin 29.4 PG (27.0-31.0) Mean Corpuscular Hemoglobin Concent 32.2 G/DL (32.0-36.0) Red Cell Distribution Width 13.6 % (11.6-14.8) Platelet Count 440 K/UL (150-450) Mean Platelet Volume 5.9 FL (6.5-10.1) L Neutrophils (%) (Auto) 78.2 % (45.0-75.0) H Lymphocytes (%) (Auto) 13.2 % (20.0-45.0) L Monocytes (%) (Auto) 6.2 % (1.0-10.0) Eosinophils (%) (Auto) 1.9 % (0.0-3.0) Basophils (%) (Auto) 0.6 % (0.0-2.0) Erythrocyte Sedimentation Rate 117 MM/HR (0-42) H Sodium Level 145 MMOL/L (136-145) Potassium Level 3.6 MMOL/L (3.5-5.1) Chloride Level 109 MMOL/L (98-107) H Carbon Dioxide Level 28 MMOL/L (21-32) Anion Gap 8 mmol/L (5-15) Blood Urea Nitrogen 14 mg/dL (7-18) Creatinine 1.0 MG/DL (0.55-1.30) Estimat Glomerular Filtration Rate mL/min (>60) Glucose Level 111 MG/DL (74-106) H Calcium Level 9.1 MG/DL (8.5-10.1) Phosphorus Level 2.4 MG/DL (2.5-4.9) L Magnesium Level 1.8 MG/DL (1.8-2.4) Total Bilirubin 0.3 MG/DL (0.2-1.0) Aspartate Amino Transf (AST/SGOT) 45 U/L (15-37) H Alanine Aminotransferase (ALT/SGPT) 44 U/L (12-78) Alkaline Phosphatase 70 U/L (46-116) C-Reactive Protein, Quantitative 27.1 mg/dL (0.00-0.90) H Total Protein 8.2 G/DL (6.4-8.2) Albumin 1.8 G/DL (3.4-5.0) L Globulin 6.4 g/dL Albumin/Globulin Ratio 0.3 (1.0-2.7) L Microbiology Date/Time Source Procedure Growth Status 10/22/17 16:55 Blood Blood Culture - Preliminary NO GROWTH AFTER 24 HOURS Resulted 10/22/17 16:35 Blood Blood Culture - Preliminary NO GROWTH AFTER 24 HOURS Resulted 10/21/17 19:00 Nasopharynx Influenza Types A,B Antigen (SVEN) - Final Complete ALAINA SINGLETON Oct 24, 2017 14:55
[2017-10-24 16:00] VITALS: BP 146/71
[2017-10-24] MEDS ORDERED: Potassium Phosphate 20 MM in NS 275 ML IV ONE (17:00)
--- NOTE | 2017-10-24 18:28 | Cardiology Report ---
APPROVED REPORT EKG Measurement Heart [id number] Normal sinus rhythm Left ventricular hypertrophy with repolarization abnormality Prolonged QT Abnormal ECG
[2017-10-24 20:00] VITALS: BP 151/80
[2017-10-25] VITALS: BP 129/78
[2017-10-25 04:00] VITALS: BP 153/74
[2017-10-25 04:53] LABS: BASOPHILS % (AUTO) 0.6 % (0.0-2.0); HEMATOCRIT 31.2 % (37.0-47.0); HEMOGLOBIN 10.4 G/DL (12.0-16.0); LYMPHOCYTES % (AUTO) 14.5 % (20.0-45.0); MEAN CORPUSCULAR VOLUME 91 FL (80-99); MONOCYTES % (AUTO) 5.3 % (1.0-10.0); NEUTROPHILS % (AUTO) 77.7 % (45.0-75.0); PLATELET COUNT 426 K/UL (150-450); RED BLOOD COUNT 3.44 M/UL (4.20-5.40); RED CELL DISTRIBUTION WIDTH 12.8 % (11.6-14.8); WHITE BLOOD COUNT 15.2 K/UL (4.8-10.8)
[2017-10-25 05:04] LABS: ALANINE AMINOTRANSFERASE 47 U/L (12-78); ALBUMIN 1.9 G/DL (3.4-5.0); ALBUMIN/GLOBULIN RATIO 0.3 (1.0-2.7); ALKALINE PHOSPHATASE 73 U/L (46-116); ANION GAP 7 mmol/L (5-15); ASPARTATE AMINO TRANSFERASE 41 U/L (15-37); BILIRUBIN,TOTAL 0.4 MG/DL (0.2-1.0); BLOOD UREA NITROGEN 10 mg/dL (7-18); CALCIUM 9.3 MG/DL (8.5-10.1); CARBON DIOXIDE 28 MMOL/L (21-32); CHLORIDE 103 MMOL/L (98-107); CREATININE 0.9 MG/DL (0.55-1.30); POTASSIUM 3.8 MMOL/L (3.5-5.1); SODIUM 138 MMOL/L (136-145)
[2017-10-25] MEDS: Vancomycin 1 GM in D5W 275 ML IVPB SCH (06:04)
[2017-10-25 08:00] VITALS: BP 141/72
[2017-10-25] MEDS: Pantoprazole Inj IV SCH (08:37)
[2017-10-25] MEDS: Cefepime HCl 2 GM in NS 55 ML IVPB SCH ×2 (08:37→20:59)
[2017-10-25] MEDS: Memantine 10mg tab GT SCH ×2 (08:37→18:15)
[2017-10-25] MEDS: Heparin 5000 units/ml inj SUBQ SCH ×2 (08:40→21:00)
--- NOTE | 2017-10-25 09:40 | Diagnostic Imaging Report ---
Indication: Dyspnea Technique: One view of the chest Comparison: 10/23/2017 Findings: There is a tracheostomy. There is bilateral pulmonary parenchymal interstitial disease which appears unchanged allowing for exposure differences. To areas of the lung bases suggests bilateral pleural effusions, although this is not evident on chest CT of 10/23/2017. There is some airspace consolidation at both lung bases, stable. Tracheostomy remains. Heart size is normal. Aorta is tortuous and calcified. Impression: Unchanged, over 2 days, findings as above. Note chest radiographic appearance suggesting bilateral pleural effusions. However, the pleural fluid is not evident on chest CT of 2 days earlier
--- NOTE | 2017-10-25 11:05 | Infectious Diseases Prog Note ---
Assessment/Plan Assessment/Plan Assessment: Bacteremia : CoNS 1/2s setts ? contaminant Sepsis- PNA- MDRO Scx: PSA - H Influenza ( StrpGrG : contaminant ) 10/23 CT: Basilar consolidationairspace, primarily disease with a minor interstitial component suspicious for pneumonia -CXR: Bilateral pleural effusions or chronic pleural thickening. Extensive bilateral pulmonary infiltrates with some nodularity. Though this may be related to congestive heart failure and pulmonary edema, the possibility of malignancy is not excluded. Clinical correlation or further evaluation suggested. 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 History of seizure disorder Ventilator-dependent respiratory failure History of lower extremity DVT History of PEG and trach placement Plan: -continue IV Vancomycin d # / and Cefepime d# 10/24 SP change Meropenem d# 4 10/20 SP Unasyn #1, Flagyl #1 08/26 SP IV Meropenem and INH COlistin #14 P vancomycin and Zosyn d# 5 07/22 SP INH/IV Colistin #13, Tygacil #7 07/21 SP Meropenem d# 14/14 07/13 SP IV Vancomycin # 7 07/08 SP Amikacin d# 2 -f/u cx ( , Bl ) -Monitor CBC/BMP, temperatures -ETT/PEG care -aspiration precautions Subjective Allergies: Coded Allergies: ASPIRIN (Verified Allergy, Unknown, 07/07/17) Subjective afebrile Objective Vital Signs Last 24 Hour Vital Signs Date Time Temp Pulse Resp B/P (MAP) Pulse Ox O2 Delivery O2 Flow Rate FiO2 10/25/17 10:45 68 18 35 10/25/17 08:37 70 29 35 10/25/17 08:04 71 18 100 Mechanical Ventilator 35 10/25/17 08:04 71 18 Mechanical Ventilator 35 10/25/17 08:00 99.0 80 30 141/72 97 Mechanical Ventilator 35 99.0 10/25/17 08:00 35 10/25/17 07:34 85 10/25/17 06:41 86 22 35 10/25/17 05:25 89 18 35 10/25/17 04:00 67 10/25/17 04:00 35 10/25/17 04:00 99.1 72 18 153/74 98 Mechanical Ventilator 35 99.1 10/25/17 03:44 81 18 35 10/25/17 01:29 72 18 35 10/25/17 00:00 98.2 63 18 129/78 100 Mechanical Ventilator 35 98.2 10/25/17 00:00 35 10/25/17 00:00 61 10/24/17 22:56 64 18 35 10/24/17 20:35 69 18 35 10/24/17 20:00 98.4 69 18 151/80 100 Mechanical Ventilator 35 98.4 10/24/17 20:00 71 10/24/17 20:00 35 10/24/17 19:39 71 18 35 10/24/17 17:39 72 21 35 10/24/17 16:00 98.2 76 18 146/71 100 Mechanical Ventilator 35 98.2 10/24/17 16:00 35 10/24/17 15:59 66 10/24/17 14:40 70 20 35 10/24/17 12:44 72 18 35 10/24/17 12:02 74 10/24/17 12:00 98.8 78 20 151/78 100 Mechanical Ventilator 35 98.8 10/24/17 12:00 35 Height (Feet): 5 Height (Inches): 3.00 Weight (Pounds): 130 HEENT: anicteric Respiratory/Chest: no accessory muscle use Cardiovascular: regular rhythm Abdomen: no organomegaly Microbiology Date/Time Source Procedure Growth Status 10/22/17 16:55 Blood Blood Culture - Preliminary NO GROWTH AFTER 48 HOURS Resulted 10/22/17 16:35 Blood Blood Culture - Preliminary NO GROWTH AFTER 48 HOURS Resulted Laboratory Tests Test 10/25/17 04:00 White Blood Count 15.2 K/UL (4.8-10.8) H Red Blood Count 3.44 M/UL (4.20-5.40) L Hemoglobin 10.4 G/DL (12.0-16.0) L Hematocrit 31.2 % (37.0-47.0) L Mean Corpuscular Volume 91 FL (80-99) Mean Corpuscular Hemoglobin 30.1 PG (27.0-31.0) Mean Corpuscular Hemoglobin Concent 33.3 G/DL (32.0-36.0) Red Cell Distribution Width 12.8 % (11.6-14.8) Platelet Count 426 K/UL (150-450) Mean Platelet Volume 6.1 FL (6.5-10.1) L Neutrophils (%) (Auto) 77.7 % (45.0-75.0) H Lymphocytes (%) (Auto) 14.5 % (20.0-45.0) L Monocytes (%) (Auto) 5.3 % (1.0-10.0) Eosinophils (%) (Auto) 2.0 % (0.0-3.0) Basophils (%) (Auto) 0.6 % (0.0-2.0) Sodium Level 138 MMOL/L (136-145) Potassium Level 3.8 MMOL/L (3.5-5.1) Chloride Level 103 MMOL/L (98-107) Carbon Dioxide Level 28 MMOL/L (21-32) Anion Gap 7 mmol/L (5-15) Blood Urea Nitrogen 10 mg/dL (7-18) Creatinine 0.9 MG/DL (0.55-1.30) Estimat Glomerular Filtration Rate mL/min (>60) Glucose Level 93 MG/DL (74-106) Calcium Level 9.3 MG/DL (8.5-10.1) Total Bilirubin 0.4 MG/DL (0.2-1.0) Aspartate Amino Transf (AST/SGOT) 41 U/L (15-37) H Alanine Aminotransferase (ALT/SGPT) 47 U/L (12-78) Alkaline Phosphatase 73 U/L (46-116) Pro-B-Type Natriuretic Peptide 2025 pg/mL (0-125) H Total Protein 8.5 G/DL (6.4-8.2) H Albumin 1.9 G/DL (3.4-5.0) L Globulin 6.6 g/dL Albumin/Globulin Ratio 0.3 (1.0-2.7) L Current Medications Medications (Trade) Dose Ordered Sig/Torsten Route PRN Reason Start Time Stop Time Status Last Admin Dose Admin Acetaminophen (Tylenol) 650 mg Q4H PRN GT Mild Pain/Temp > 100.5 10/21/17 06:30 11/20/17 06:29 10/22/17 12:08 Albuterol/ Ipratropium (Albuterol/ Ipratropium) 3 ml EVERY 4 HOURS PRN HHN Shortness of Breath 10/20/17 22:30 10/25/17 22:29 10/25/17 08:04 Cefepime HCl 2 gm/ Sodium Chloride 55 ml @ 110 mls/hr EVERY 12 HOURS IVPB 10/24/17 10:00 10/31/17 09:59 10/25/17 08:37 Dextrose 1,000 ml @ 150 mls/hr Q6H40M IV 10/23/17 12:00 11/22/17 11:59 10/25/17 06:05 Dextrose (Dextrose 50%) STAT PRN IV Hypoglycemia 10/20/17 22:30 11/19/17 22:29 Heparin Sodium (Porcine) (Heparin 5000 units/ml) 5,000 units EVERY 12 HOURS SUBQ 10/21/17 09:00 11/20/17 08:59 10/25/17 08:40 Lorazepam (Ativan 2mg/ml 1ml) 2 mg EVERY 2 HOURS PRN IV For Anxiety 10/20/17 22:30 10/27/17 22:29 10/24/17 03:14 Memantine (Namenda) 5 mg TWICE A DAY GT 10/21/17 09:00 11/20/17 08:59 10/25/17 08:37 Morphine Sulfate (Morphine Sulfate) 4 mg EVERY 4 HOURS PRN IVP Severe Pain (Pain Scale 7-10) 10/20/17 22:30 10/27/17 22:29 Pantoprazole (Protonix) 40 mg DAILY IV 10/21/17 09:00 11/20/17 08:59 10/25/17 08:37 Polyethylene Glycol (Miralax) 17 gm DAILYPRN PRN ORAL Constipation 10/20/17 22:30 11/19/17 22:29 Trazodone HCl (Desyrel) 50 mg BEDTIME PRN GT insomnia 10/20/17 22:30 11/19/17 22:29 Vancomycin HCl (Vanco rx to dose) 1 ea DAILYPRN PRN MISC RX TO DOSE PROTOCOL 10/21/17 13:00 11/20/17 12:59 Vancomycin HCl 1 gm/Dextrose 275 ml @ 183.3 mls/ hr Q24H IVPB 10/21/17 06:00 10/26/17 05:59 10/25/17 06:04 COLBY BRICENO M.D. Oct 25, 2017 11:05
--- NOTE | 2017-10-25 11:51 | Pulmonology Progress Note ---
Assessment/Plan Assessment/Plan ASSESSMENT Acute and chronic respiratory failure VDRF/trach status Sepsis bacteremia with Staph ? contamination PNA with MDRO Encephalopathy Dysphagia, Feeding by G-tube Anemia Hypernatremia PAF PLAN OF CARE MARTHA vent/trach care, pulm toilet baseline ABG and titrate settings as needed CT chest with PNA, sputum cx wit MDRO abx ID follows bl cx - Staph capitus ? contamination- per ID management hyper Na resolved with IVF, dc rate to 50 cc/hr aspiration precautions, GT feeding, monitor tolerance DVT GI prophylaxis seizure precautions, not on any a/convulsant monitor counts, transfuse prn monitor renal parameters, correct lytes as needed, avoid nephrotoxic supportive care bowel regimen case discussed and evaluated by supervising physician Subjective Allergies: Coded Allergies: ASPIRIN (Verified Allergy, Unknown, 07/07/17) Subjective persistent leukocytosis, afebrile, no signs of resp distress on current vent settings Objective Last 24 Hour Vital Signs Date Time Temp Pulse Resp B/P (MAP) Pulse Ox O2 Delivery O2 Flow Rate FiO2 10/25/17 10:45 68 18 35 10/25/17 08:37 70 29 35 10/25/17 08:04 71 18 100 Mechanical Ventilator 35 10/25/17 08:04 71 18 Mechanical Ventilator 35 10/25/17 08:00 99.0 80 30 141/72 97 Mechanical Ventilator 35 99.0 10/25/17 08:00 35 10/25/17 07:34 85 10/25/17 06:41 86 22 35 10/25/17 05:25 89 18 35 10/25/17 04:00 67 10/25/17 04:00 35 10/25/17 04:00 99.1 72 18 153/74 98 Mechanical Ventilator 35 99.1 10/25/17 03:44 81 18 35 10/25/17 01:29 72 18 35 10/25/17 00:00 98.2 63 18 129/78 100 Mechanical Ventilator 35 98.2 10/25/17 00:00 35 10/25/17 00:00 61 10/24/17 22:56 64 18 35 10/24/17 20:35 69 18 35 10/24/17 20:00 98.4 69 18 151/80 100 Mechanical Ventilator 35 98.4 10/24/17 20:00 71 10/24/17 20:00 35 10/24/17 19:39 71 18 35 10/24/17 17:39 72 21 35 10/24/17 16:00 98.2 76 18 146/71 100 Mechanical Ventilator 35 98.2 10/24/17 16:00 35 10/24/17 15:59 66 10/24/17 14:40 70 20 35 10/24/17 12:44 72 18 35 10/24/17 12:02 74 10/24/17 12:00 98.8 78 20 151/78 100 Mechanical Ventilator 35 98.8 10/24/17 12:00 35 Intake and Output 10/24/17 10/25/17 19:00 07:00 Intake Total 1930.0 ml 905 ml Output Total 550 ml Balance 1380.0 ml 905 ml IV Total 1480.0 ml 635 ml Tube Feeding 360 ml 270 ml Other 90 ml Output Urine Total 550 ml # Bowel Movements 1 General Appearance: no acute distress, other - awake, responsive, bedridden, vent dependent female in NAD on Vent AC 600-35%-18 PEEP 5 HEENT: status post trach - Portex#8, secretions small yellow thin Cardiovascular: normal rate, regular rhythm - SR on tele Abdomen: soft, non tender, non distended, other - G tube Extremities: no edema Neurologic/Psychiatric: abnormal gait, responsive, other - spastic Musculoskeletal: atrophy - BLE Microbiology Date/Time Source Procedure Growth Status 10/22/17 16:55 Blood Blood Culture - Preliminary NO GROWTH AFTER 48 HOURS Resulted 10/22/17 16:35 Blood Blood Culture - Preliminary NO GROWTH AFTER 48 HOURS Resulted Laboratory Tests 10/25/17 04:00: White Blood Count 15.2H, Red Blood Count 3.44L, Hemoglobin 10.4L, Hematocrit 31.2L, Mean Corpuscular Volume 91, Mean Corpuscular Hemoglobin 30.1, Mean Corpuscular Hemoglobin Concent 33.3, Red Cell Distribution Width 12.8, Platelet Count 426, Mean Platelet Volume 6.1L, Neutrophils (%) (Auto) 77.7H, Lymphocytes (%) (Auto) 14.5L, Monocytes (%) (Auto) 5.3, Eosinophils (%) (Auto) 2.0, Basophils (%) (Auto) 0.6, Sodium Level 138, Potassium Level 3.8, Chloride Level 103, Carbon Dioxide Level 28, Anion Gap 7, Blood Urea Nitrogen 10, Creatinine 0.9, Estimat Glomerular Filtration Rate , Glucose Level 93, Calcium Level 9.3, Total Bilirubin 0.4, Aspartate Amino Transf (AST/SGOT) 41H, Alanine Aminotransferase (ALT/SGPT) 47, Alkaline Phosphatase 73, Pro-B-Type Natriuretic Peptide 2025H, Total Protein 8.5H, Albumin 1.9L, Globulin 6.6, Albumin/Globulin Ratio 0.3L Current Medications Medications (Trade) Dose Ordered Sig/Torsten Route PRN Reason Start Time Stop Time Status Last Admin Dose Admin Acetaminophen (Tylenol) 650 mg Q4H PRN GT Mild Pain/Temp > 100.5 10/21/17 06:30 11/20/17 06:29 10/22/17 12:08 Albuterol/ Ipratropium (Albuterol/ Ipratropium) 3 ml EVERY 4 HOURS PRN HHN Shortness of Breath 10/20/17 22:30 10/25/17 22:29 10/25/17 08:04 Cefepime HCl 2 gm/ Sodium Chloride 55 ml @ 110 mls/hr EVERY 12 HOURS IVPB 10/24/17 10:00 10/31/17 09:59 10/25/17 08:37 Dextrose 1,000 ml @ 150 mls/hr Q6H40M IV 10/23/17 12:00 11/22/17 11:59 10/25/17 11:00 Dextrose (Dextrose 50%) STAT PRN IV Hypoglycemia 10/20/17 22:30 11/19/17 22:29 Heparin Sodium (Porcine) (Heparin 5000 units/ml) 5,000 units EVERY 12 HOURS SUBQ 10/21/17 09:00 11/20/17 08:59 10/25/17 08:40 Lorazepam (Ativan 2mg/ml 1ml) 2 mg EVERY 2 HOURS PRN IV For Anxiety 10/20/17 22:30 10/27/17 22:29 10/24/17 03:14 Memantine (Namenda) 5 mg TWICE A DAY GT 10/21/17 09:00 11/20/17 08:59 10/25/17 08:37 Morphine Sulfate (Morphine Sulfate) 4 mg EVERY 4 HOURS PRN IVP Severe Pain (Pain Scale 7-10) 10/20/17 22:30 10/27/17 22:29 Pantoprazole (Protonix) 40 mg DAILY IV 10/21/17 09:00 11/20/17 08:59 10/25/17 08:37 Polyethylene Glycol (Miralax) 17 gm DAILYPRN PRN ORAL Constipation 10/20/17 22:30 11/19/17 22:29 Trazodone HCl (Desyrel) 50 mg BEDTIME PRN GT insomnia 10/20/17 22:30 11/19/17 22:29 Vancomycin HCl (Vanco rx to dose) 1 ea DAILYPRN PRN MISC RX TO DOSE PROTOCOL 10/21/17 13:00 11/20/17 12:59 Vancomycin HCl 1 gm/Dextrose 275 ml @ 183.3 mls/ hr Q24H IVPB 10/21/17 06:00 10/26/17 05:59 10/25/17 06:04 Richard Gallegos)Tatiana NP Oct 25, 2017 11:51
[2017-10-25 12:00] VITALS: BP 152/82
[2017-10-25] MEDS ORDERED: Albuterol/Ipratropium 3ml neb HHN PRN (12:00)
[2017-10-25] MEDS ORDERED: Morphine Sulfate 4mg/ml Inj IVP PRN (12:00)
--- NOTE | 2017-10-25 13:04 | Diagnostic Imaging Report ---
APPROVED REPORT CPT Code: 52981 Present Symptoms Comments: R/O DVT RIGHT LEG: Venous imaging reveals persistent thrombus (partially compressible with flow) in the common femoral vein. Imaging also reveals patency of the superficial, popliteal and calf veins. Greater saphenous vein also within normal limits. LEFT LEG: Venous imaging reveals a patent deep venous system. There is no evidence of thrombus within the femoral, popliteal or tibial segments. The greater saphenous vein is also within normal limits. Doppler indicates normal spontaneous flow within these segments.
--- NOTE | 2017-10-25 14:15 | Cardiology Report ---
APPROVED REPORT EKG Measurement Heart [id number] Normal sinus rhythm Left ventricular hypertrophy with repolarization abnormality Prolonged QT Abnormal ECG
[2017-10-25 16:00] VITALS: BP 141/62
[2017-10-25 20:00] VITALS: BP 134/60
[2017-10-26 04:00] VITALS: BP 146/88
[2017-10-26 05:50] LABS: BASOPHILS % (AUTO) 0.8 % (0.0-2.0); EOSINOPHILS % (AUTO) 1.8 % (0.0-3.0); HEMATOCRIT 34.1 % (37.0-47.0); HEMOGLOBIN 11.3 G/DL (12.0-16.0); LYMPHOCYTES % (AUTO) 18.9 % (20.0-45.0); MEAN CORPUSCULAR VOLUME 91 FL (80-99); MONOCYTES % (AUTO) 7.1 % (1.0-10.0); NEUTROPHILS % (AUTO) 71.4 % (45.0-75.0); PLATELET COUNT 369 K/UL (150-450); RED BLOOD COUNT 3.73 M/UL (4.20-5.40); RED CELL DISTRIBUTION WIDTH 13.2 % (11.6-14.8); WHITE BLOOD COUNT 12.3 K/UL (4.8-10.8)
[2017-10-26 05:52] LABS: ANION GAP 11 mmol/L (5-15); BLOOD UREA NITROGEN 9 mg/dL (7-18); CALCIUM 9.2 MG/DL (8.5-10.1); CARBON DIOXIDE 23 MMOL/L (21-32); CHLORIDE 102 MMOL/L (98-107); CREATININE 0.8 MG/DL (0.55-1.30); SODIUM 136 MMOL/L (136-145)
[2017-10-26 08:00] VITALS: BP 139/68
--- NOTE | 2017-10-26 08:21 | Pulmonolgy Critical Care Note ---
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 manager - Objective Last 24 Hour Vital Signs Date Time Temp Pulse Resp B/P (MAP) Pulse Ox O2 Delivery O2 Flow Rate FiO2 10/26/17 06:45 66 18 35 10/26/17 05:10 71 20 35 10/26/17 04:00 35 10/26/17 04:00 65 10/26/17 04:00 97.7 61 18 146/88 100 Mechanical Ventilator 35 97.7 10/26/17 03:30 61 18 35 10/26/17 01:00 71 18 35 10/26/17 00:00 63 10/25/17 23:27 69 20 35 10/25/17 20:50 65 18 35 10/25/17 20:00 98.6 66 18 134/60 100 Mechanical Ventilator 35 98.6 10/25/17 20:00 35 10/25/17 19:43 64 10/25/17 19:22 64 18 35 10/25/17 16:34 71 22 35 10/25/17 16:00 98.5 71 20 141/62 97 Mechanical Ventilator 35 98.5 10/25/17 16:00 61 10/25/17 16:00 35 10/25/17 14:50 61 18 35 10/25/17 12:35 61 18 35 10/25/17 12:16 35 10/25/17 12:00 98.5 72 30 152/82 97 Mechanical Ventilator 35 98.5 10/25/17 11:40 62 10/25/17 10:45 68 18 35 10/25/17 08:37 70 29 35 Status: awake Condition: critical Lungs: clear Heart: HR/BP stable Abdomen: soft, non-tender, feeding tube Extremities: no C/C/E, edema Critical Care - Subjective ROS Limited/Unobtainable: Yes ICU Day: 6 EKG Rhythm: Sinus Rhythm FI02: 35 Vent Support Breath Rate: 18 Vent Support Mode: AC Vent Tidal Volume: 600 Sputum Amount: Scant PEEP: 5.0 PIP: 30 Tube Feeding Amount: 50 I&O: Intake and Output 10/25/17 10/26/17 19:00 07:00 Intake Total 2561.6 ml 1160.8 ml Output Total 800 ml Balance 2561.6 ml 360.8 ml Intake Free Water 100 ml 50 ml IV Total 2071.6 ml 525.8 ml Tube Feeding 390 ml 585 ml Output Urine Total 800 ml # Bowel Movements 2 CXR: extensive infiltrate Labs: Laboratory Tests Test 10/26/17 04:15 White Blood Count 12.3 K/UL (4.8-10.8) H Red Blood Count 3.73 M/UL (4.20-5.40) L Hemoglobin 11.3 G/DL (12.0-16.0) L Hematocrit 34.1 % (37.0-47.0) L Mean Corpuscular Volume 91 FL (80-99) Mean Corpuscular Hemoglobin 30.2 PG (27.0-31.0) Mean Corpuscular Hemoglobin Concent 33.2 G/DL (32.0-36.0) Red Cell Distribution Width 13.2 % (11.6-14.8) Platelet Count 369 K/UL (150-450) Mean Platelet Volume 6.4 FL (6.5-10.1) L Neutrophils (%) (Auto) 71.4 % (45.0-75.0) Lymphocytes (%) (Auto) 18.9 % (20.0-45.0) L Monocytes (%) (Auto) 7.1 % (1.0-10.0) Eosinophils (%) (Auto) 1.8 % (0.0-3.0) Basophils (%) (Auto) 0.8 % (0.0-2.0) Sodium Level 136 MMOL/L (136-145) Potassium Level 4.0 MMOL/L (3.5-5.1) Chloride Level 102 MMOL/L (98-107) Carbon Dioxide Level 23 MMOL/L (21-32) Anion Gap 11 mmol/L (5-15) Blood Urea Nitrogen 9 mg/dL (7-18) Creatinine 0.8 MG/DL (0.55-1.30) Estimat Glomerular Filtration Rate mL/min (>60) Glucose Level 92 MG/DL (74-106) Calcium Level 9.2 MG/DL (8.5-10.1) COBY LEBLANC Oct 26, 2017 08:21
[2017-10-26] MEDS: Cefepime HCl 2 GM in NS 55 ML IVPB SCH ×2 (09:28→20:04)
[2017-10-26] MEDS: Pantoprazole Inj IV SCH (09:29)
[2017-10-26] MEDS: Memantine 10mg tab GT SCH ×2 (09:29→17:37)
[2017-10-26] MEDS: Heparin 5000 units/ml inj SUBQ SCH ×2 (09:31→20:05)
[2017-10-26 12:00] VITALS: BP 143/80
--- NOTE | 2017-10-26 14:00 | Wound Care Consultation ---
Wound Assessment Wound Assessment : Wound Number: 1 Wound Present on Admission: No New Wound: Yes Status Change of Wound: No Wound Location Body Site: perineal area Wound Type: erosion Jaya Test: Does not Jaya Wound Thickness: Full Thickness Percent of Wound Labelle/Red: 100 Wound Drainage Description: Serosanguineous Wound Drainage Amount: Scant Wound Drainage Odor: None/Absent Tissue Surrounding Wound: Macerated Wound General Appearance: Reddened, Draining Wound Comment #1 Perianal chemical burn with erosion full thickness Recommendation -Local wound care per protocol -Keep clean and dry -Turn and reposition -Offload both heels -Heel protector on both heels -Optimize nutrition -Low air loss mattress -Assess and f/u accordingly for any changes MARK GARY RN Oct 26, 2017 14:00
--- NOTE | 2017-10-26 14:20 | Infectious Diseases Prog Note ---
Assessment/Plan Assessment/Plan Assessment: Bacteremia : CoNS 1/2s setts ? contaminant Sepsis- PNA- MDRO Scx: PSA - H Influenza ( StrpGrG : contaminant ) 10/23 CT: Basilar consolidationairspace, primarily disease with a minor interstitial component suspicious for pneumonia -CXR: Bilateral pleural effusions or chronic pleural thickening. Extensive bilateral pulmonary infiltrates with some nodularity. Though this may be related to congestive heart failure and pulmonary edema, the possibility of malignancy is not excluded. Clinical correlation or further evaluation suggested. 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 History of seizure disorder Ventilator-dependent respiratory failure History of lower extremity DVT History of PEG and trach placement Plan: -continue IV Vancomycin d # 6 / and Cefepime d# 3 10/24 SP change Meropenem d# 4 10/20 SP Unasyn #1, Flagyl #1 08/26 SP IV Meropenem and INH COlistin #14 P vancomycin and Zosyn d# 5 07/22 SP INH/IV Colistin #13, Tygacil #7 07/21 SP Meropenem d# 14/14 07/13 SP IV Vancomycin # 7 07/08 SP Amikacin d# 2 -f/u cx ( , Bl ) -Monitor CBC/BMP, temperatures -ETT/PEG care -aspiration precautions Subjective Constitutional: Denies: no symptoms, fever, chills, fatigue, anorexia, drenching sweats, other Allergies: Coded Allergies: ASPIRIN (Verified Allergy, Unknown, 07/07/17) Subjective afebrile Objective Vital Signs Last 24 Hour Vital Signs Date Time Temp Pulse Resp B/P (MAP) Pulse Ox O2 Delivery O2 Flow Rate FiO2 10/26/17 13:15 68 18 35 10/26/17 12:00 73 10/26/17 11:28 76 18 35 10/26/17 09:10 72 18 35 10/26/17 08:00 69 10/26/17 06:45 66 18 35 10/26/17 05:10 71 20 35 10/26/17 04:00 35 10/26/17 04:00 65 10/26/17 04:00 97.7 61 18 146/88 100 Mechanical Ventilator 35 97.7 10/26/17 03:30 61 18 35 10/26/17 01:00 71 18 35 10/26/17 00:00 63 10/25/17 23:27 69 20 35 10/25/17 20:50 65 18 35 10/25/17 20:00 98.6 66 18 134/60 100 Mechanical Ventilator 35 98.6 10/25/17 20:00 35 10/25/17 19:43 64 10/25/17 19:22 64 18 35 10/25/17 16:34 71 22 35 10/25/17 16:00 98.5 71 20 141/62 97 Mechanical Ventilator 35 98.5 10/25/17 16:00 61 10/25/17 16:00 35 10/25/17 14:50 61 18 35 Height (Feet): 5 Height (Inches): 3.00 Weight (Pounds): 130 HEENT: mucous membranes moist Respiratory/Chest: normal breath sounds Cardiovascular: normal rate Abdomen: soft, non tender Laboratory Tests Test 10/26/17 04:15 10/26/17 08:00 White Blood Count 12.3 K/UL (4.8-10.8) H Red Blood Count 3.73 M/UL (4.20-5.40) L Hemoglobin 11.3 G/DL (12.0-16.0) L Hematocrit 34.1 % (37.0-47.0) L Mean Corpuscular Volume 91 FL (80-99) Mean Corpuscular Hemoglobin 30.2 PG (27.0-31.0) Mean Corpuscular Hemoglobin Concent 33.2 G/DL (32.0-36.0) Red Cell Distribution Width 13.2 % (11.6-14.8) Platelet Count 369 K/UL (150-450) Mean Platelet Volume 6.4 FL (6.5-10.1) L Neutrophils (%) (Auto) 71.4 % (45.0-75.0) Lymphocytes (%) (Auto) 18.9 % (20.0-45.0) L Monocytes (%) (Auto) 7.1 % (1.0-10.0) Eosinophils (%) (Auto) 1.8 % (0.0-3.0) Basophils (%) (Auto) 0.8 % (0.0-2.0) Sodium Level 136 MMOL/L (136-145) Potassium Level 4.0 MMOL/L (3.5-5.1) Chloride Level 102 MMOL/L (98-107) Carbon Dioxide Level 23 MMOL/L (21-32) Anion Gap 11 mmol/L (5-15) Blood Urea Nitrogen 9 mg/dL (7-18) Creatinine 0.8 MG/DL (0.55-1.30) Estimat Glomerular Filtration Rate mL/min (>60) Glucose Level 92 MG/DL (74-106) Calcium Level 9.2 MG/DL (8.5-10.1) Arterial Blood pH 7.470 (7.350-7.450) Arterial Blood Partial Pressure CO2 34.9 mmHg (35.0-45.0) L Arterial Blood Partial Pressure O2 101.6 mmHg (75.0-100.0) H Arterial Blood HCO3 25.2 mmol/L (22.0-26.0) Arterial Blood Oxygen Saturation 97.3 % (92.0-98.0) Arterial Blood Base Excess 1.8 Luís Test Positive Current Medications Medications (Trade) Dose Ordered Sig/Torsten Route PRN Reason Start Time Stop Time Status Last Admin Dose Admin Acetaminophen (Tylenol) 650 mg Q4H PRN GT Mild Pain/Temp > 100.5 10/21/17 06:30 11/20/17 06:29 10/22/17 12:08 Albuterol/ Ipratropium (Albuterol/ Ipratropium) 3 ml EVERY 4 HOURS PRN HHN Shortness of Breath 10/25/17 12:00 10/30/17 23:59 Cefepime HCl 2 gm/ Sodium Chloride 55 ml @ 110 mls/hr EVERY 12 HOURS IVPB 10/24/17 10:00 10/31/17 09:59 10/26/17 09:28 Dextrose 1,000 ml @ 50 mls/hr Q20H IV 10/25/17 21:30 11/24/17 21:29 10/26/17 01:02 Dextrose (Dextrose 50%) STAT PRN IV Hypoglycemia 10/20/17 22:30 11/19/17 22:29 Heparin Sodium (Porcine) (Heparin 5000 units/ml) 5,000 units EVERY 12 HOURS SUBQ 10/21/17 09:00 11/20/17 08:59 10/26/17 09:31 Lorazepam (Ativan 2mg/ml 1ml) 2 mg EVERY 2 HOURS PRN IV For Anxiety 10/20/17 22:30 10/27/17 22:29 10/24/17 03:14 Memantine (Namenda) 5 mg TWICE A DAY GT 10/21/17 09:00 11/20/17 08:59 10/26/17 09:29 Morphine Sulfate (Morphine Sulfate) 4 mg EVERY 4 HOURS PRN IVP Severe Pain (Pain Scale 7-10) 10/25/17 12:00 11/01/17 23:59 Pantoprazole (Protonix) 40 mg DAILY IV 10/21/17 09:00 11/20/17 08:59 10/26/17 09:29 Polyethylene Glycol (Miralax) 17 gm DAILYPRN PRN ORAL Constipation 10/20/17 22:30 11/19/17 22:29 Trazodone HCl (Desyrel) 50 mg BEDTIME PRN GT insomnia 10/20/17 22:30 11/19/17 22:29 Vancomycin HCl (Vanco rx to dose) 1 ea DAILYPRN PRN MISC RX TO DOSE PROTOCOL 10/21/17 13:00 11/20/17 12:59 COLBY BRICENO M.D. Oct 26, 2017 14:20
[2017-10-26] MEDS ORDERED: D5W 275ml ONE (15:43)
[2017-10-26] MEDS ORDERED: Tubing IV Secondary IV ONE ×2 (15:43→16:11)
[2017-10-26] MEDS ORDERED: NS 275ml ONE ×2 (15:43→16:11)
[2017-10-26 16:00] VITALS: BP 152/73
[2017-10-26] MEDS: Vancomycin 1 GM in D5W 275 ML IVPB SCH (17:28)
[2017-10-26 20:00] VITALS: BP 133/64
[2017-10-27] VITALS: BP 122/74
[2017-10-27 04:00] VITALS: BP 141/65
[2017-10-27 05:29] LABS: BASOPHILS % (AUTO) 0.5 % (0.0-2.0); EOSINOPHILS % (AUTO) 2.3 % (0.0-3.0); HEMATOCRIT 29.7 % (37.0-47.0); HEMOGLOBIN 9.9 G/DL (12.0-16.0); MEAN CORPUSCULAR VOLUME 91 FL (80-99); MONOCYTES % (AUTO) 3.1 % (1.0-10.0); NEUTROPHILS % (AUTO) 73.1 % (45.0-75.0); PLATELET COUNT 473 K/UL (150-450); RED BLOOD COUNT 3.26 M/UL (4.20-5.40); RED CELL DISTRIBUTION WIDTH 12.8 % (11.6-14.8); WHITE BLOOD COUNT 10.9 K/UL (4.8-10.8)
[2017-10-27 05:54] LABS: ALANINE AMINOTRANSFERASE 33 U/L (12-78); ALBUMIN/GLOBULIN RATIO 0.3 (1.0-2.7); ALKALINE PHOSPHATASE 72 U/L (46-116); ANION GAP 8 mmol/L (5-15); ASPARTATE AMINO TRANSFERASE 25 U/L (15-37); BILIRUBIN,TOTAL 0.2 MG/DL (0.2-1.0); BLOOD UREA NITROGEN 9 mg/dL (7-18); CALCIUM 9.5 MG/DL (8.5-10.1); CARBON DIOXIDE 28 MMOL/L (21-32); CHLORIDE 102 MMOL/L (98-107); CREATININE 0.9 MG/DL (0.55-1.30); PHOSPHORUS 3.2 MG/DL (2.5-4.9); POTASSIUM 3.5 MMOL/L (3.5-5.1); SODIUM 138 MMOL/L (136-145)
[2017-10-27 08:00] VITALS: BP 131/68
[2017-10-27] MEDS: Memantine 10mg tab GT SCH ×2 (08:34→17:03)
[2017-10-27] MEDS: Pantoprazole Inj IV SCH (08:35)
[2017-10-27] MEDS: Heparin 5000 units/ml inj SUBQ SCH ×2 (08:36→21:04)
[2017-10-27] MEDS: Cefepime HCl 2 GM in NS 55 ML IVPB SCH ×2 (08:37→21:02)
[2017-10-27 12:00] VITALS: BP 146/60
--- NOTE | 2017-10-27 13:03 | Pulmonolgy Critical Care Note ---
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, 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, consultants, caseworker protective servicesmanager camp - Objective Last 24 Hour Vital Signs Date Time Temp Pulse Resp B/P (MAP) Pulse Ox O2 Delivery O2 Flow Rate FiO2 10/27/17 12:48 72 18 35 10/27/17 10:40 68 18 35 10/27/17 08:46 72 18 35 10/27/17 08:00 71 10/27/17 06:33 71 18 35 10/27/17 05:25 69 18 35 10/27/17 04:00 70 10/27/17 04:00 35 10/27/17 04:00 98.1 71 18 141/65 98 35 98.1 10/27/17 02:40 67 18 35 10/27/17 01:29 62 18 35 10/27/17 00:00 35 10/27/17 00:00 60 10/27/17 00:00 97.9 64 18 122/74 99 35 97.9 10/26/17 23:08 57 18 35 10/26/17 20:41 58 18 35 10/26/17 20:00 72 10/26/17 20:00 35 10/26/17 20:00 97.9 58 18 133/64 100 35 97.9 10/26/17 19:08 59 18 35 10/26/17 17:23 68 19 35 10/26/17 16:00 72 10/26/17 16:00 35 10/26/17 16:00 98.1 71 24 152/73 100 35 98.1 10/26/17 15:15 72 18 35 10/26/17 13:15 68 18 35 Status: awake Condition: critical HEENT: atraumatic Lungs: clear Heart: HR/BP stable, regular Abdomen: soft, active bowel sounds Extremities: no C/C/E, edema Critical Care - Subjective ROS Limited/Unobtainable: No Condition: critical EKG Rhythm: Sinus Rhythm FI02: 35 Vent Support Breath Rate: 18 Vent Support Mode: AC Vent Tidal Volume: 600 Sputum Amount: Moderate PEEP: 5.0 PIP: 28 Tube Feeding Amount: 55 I&O: Intake and Output 10/26/17 10/27/17 19:00 07:00 Intake Total 975 ml 1470 ml Output Total 300 ml 600 ml Balance 675 ml 870 ml Intake Free Water 200 ml 100 ml IV Total 50 ml 710 ml Tube Feeding 605 ml 660 ml Other 120 ml Output Urine Total 300 ml 600 ml # Bowel Movements 1 CXR: no change Labs: Laboratory Tests Test 10/27/17 04:15 White Blood Count 10.9 K/UL (4.8-10.8) H Red Blood Count 3.26 M/UL (4.20-5.40) L Hemoglobin 9.9 G/DL (12.0-16.0) L Hematocrit 29.7 % (37.0-47.0) L Mean Corpuscular Volume 91 FL (80-99) Mean Corpuscular Hemoglobin 30.4 PG (27.0-31.0) Mean Corpuscular Hemoglobin Concent 33.4 G/DL (32.0-36.0) Red Cell Distribution Width 12.8 % (11.6-14.8) Platelet Count 473 K/UL (150-450) H Mean Platelet Volume 6.1 FL (6.5-10.1) L Neutrophils (%) (Auto) 73.1 % (45.0-75.0) Lymphocytes (%) (Auto) 21.0 % (20.0-45.0) Monocytes (%) (Auto) 3.1 % (1.0-10.0) Eosinophils (%) (Auto) 2.3 % (0.0-3.0) Basophils (%) (Auto) 0.5 % (0.0-2.0) Sodium Level 138 MMOL/L (136-145) Potassium Level 3.5 MMOL/L (3.5-5.1) Chloride Level 102 MMOL/L (98-107) Carbon Dioxide Level 28 MMOL/L (21-32) Anion Gap 8 mmol/L (5-15) Blood Urea Nitrogen 9 mg/dL (7-18) Creatinine 0.9 MG/DL (0.55-1.30) Estimat Glomerular Filtration Rate mL/min (>60) Glucose Level 101 MG/DL (74-106) Calcium Level 9.5 MG/DL (8.5-10.1) Phosphorus Level 3.2 MG/DL (2.5-4.9) Magnesium Level 1.6 MG/DL (1.8-2.4) L Total Bilirubin 0.2 MG/DL (0.2-1.0) Aspartate Amino Transf (AST/SGOT) 25 U/L (15-37) Alanine Aminotransferase (ALT/SGPT) 33 U/L (12-78) Alkaline Phosphatase 72 U/L (46-116) Total Protein 8.4 G/DL (6.4-8.2) H Albumin 2.0 G/DL (3.4-5.0) L Globulin 6.4 g/dL Albumin/Globulin Ratio 0.3 (1.0-2.7) L COBY LEBLANC Oct 27, 2017 13:03
[2017-10-27 16:00] VITALS: BP 127/62
[2017-10-27] MEDS: Vancomycin 1 GM in D5W 275 ML IVPB SCH (16:48)
--- NOTE | 2017-10-27 17:13 | Infectious Diseases Prog Note ---
Assessment/Plan Assessment/Plan Assessment: Bacteremia : CoNS 1/2s setts ? contaminant Sepsis- PNA- MDRO Scx: PSA - H Influenza ( StrpGrG : contaminant ) 10/23 CT: Basilar consolidationairspace, primarily disease with a minor interstitial component suspicious for pneumonia -CXR: Bilateral pleural effusions or chronic pleural thickening. Extensive bilateral pulmonary infiltrates with some nodularity. Though this may be related to congestive heart failure and pulmonary edema, the possibility of malignancy is not excluded. Clinical correlation or further evaluation suggested. 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 History of seizure disorder Ventilator-dependent respiratory failure History of lower extremity DVT History of PEG and trach placement Plan: -continue IV Vancomycin d # and Cefepime d# 10/24 SP change Meropenem d# 4 10/20 SP Unasyn #1, Flagyl #1 08/26 SP IV Meropenem and INH COlistin #14 P vancomycin and Zosyn d# 5 07/22 SP INH/IV Colistin #13, Tygacil #7 07/21 SP Meropenem d# 14/14 07/13 SP IV Vancomycin # 7 07/08 SP Amikacin d# 2 -f/u cx ( , Bl ) -Monitor CBC/BMP, temperatures -ETT/PEG care -aspiration precautions Subjective Allergies: Coded Allergies: ASPIRIN (Verified Allergy, Unknown, 07/07/17) Subjective afebrile Objective Vital Signs Last 24 Hour Vital Signs Date Time Temp Pulse Resp B/P (MAP) Pulse Ox O2 Delivery O2 Flow Rate FiO2 10/27/17 16:37 69 18 35 10/27/17 16:00 35 10/27/17 14:51 74 18 35 10/27/17 12:48 72 18 35 10/27/17 12:00 35 10/27/17 12:00 97.9 69 18 146/60 99 35 97.9 10/27/17 12:00 70 10/27/17 10:40 68 18 35 10/27/17 08:46 72 18 35 10/27/17 08:00 98.1 65 18 131/68 99 35 98.1 10/27/17 08:00 35 10/27/17 08:00 71 10/27/17 06:33 71 18 35 10/27/17 05:25 69 18 35 10/27/17 04:00 70 10/27/17 04:00 35 10/27/17 04:00 98.1 71 18 141/65 98 35 98.1 10/27/17 02:40 67 18 35 10/27/17 01:29 62 18 35 10/27/17 00:00 35 10/27/17 00:00 60 10/27/17 00:00 97.9 64 18 122/74 99 35 97.9 10/26/17 23:08 57 18 35 10/26/17 20:41 58 18 35 10/26/17 20:00 72 10/26/17 20:00 35 10/26/17 20:00 97.9 58 18 133/64 100 35 97.9 10/26/17 19:08 59 18 35 10/26/17 17:23 68 19 35 Height (Feet): 5 Height (Inches): 3.00 Weight (Pounds): 130 HEENT: anicteric Respiratory/Chest: no accessory muscle use Cardiovascular: no gallop/murmur Abdomen: non distended Laboratory Tests Test 10/27/17 04:15 White Blood Count 10.9 K/UL (4.8-10.8) H Red Blood Count 3.26 M/UL (4.20-5.40) L Hemoglobin 9.9 G/DL (12.0-16.0) L Hematocrit 29.7 % (37.0-47.0) L Mean Corpuscular Volume 91 FL (80-99) Mean Corpuscular Hemoglobin 30.4 PG (27.0-31.0) Mean Corpuscular Hemoglobin Concent 33.4 G/DL (32.0-36.0) Red Cell Distribution Width 12.8 % (11.6-14.8) Platelet Count 473 K/UL (150-450) H Mean Platelet Volume 6.1 FL (6.5-10.1) L Neutrophils (%) (Auto) 73.1 % (45.0-75.0) Lymphocytes (%) (Auto) 21.0 % (20.0-45.0) Monocytes (%) (Auto) 3.1 % (1.0-10.0) Eosinophils (%) (Auto) 2.3 % (0.0-3.0) Basophils (%) (Auto) 0.5 % (0.0-2.0) Sodium Level 138 MMOL/L (136-145) Potassium Level 3.5 MMOL/L (3.5-5.1) Chloride Level 102 MMOL/L (98-107) Carbon Dioxide Level 28 MMOL/L (21-32) Anion Gap 8 mmol/L (5-15) Blood Urea Nitrogen 9 mg/dL (7-18) Creatinine 0.9 MG/DL (0.55-1.30) Estimat Glomerular Filtration Rate mL/min (>60) Glucose Level 101 MG/DL (74-106) Calcium Level 9.5 MG/DL (8.5-10.1) Phosphorus Level 3.2 MG/DL (2.5-4.9) Magnesium Level 1.6 MG/DL (1.8-2.4) L Total Bilirubin 0.2 MG/DL (0.2-1.0) Aspartate Amino Transf (AST/SGOT) 25 U/L (15-37) Alanine Aminotransferase (ALT/SGPT) 33 U/L (12-78) Alkaline Phosphatase 72 U/L (46-116) Total Protein 8.4 G/DL (6.4-8.2) H Albumin 2.0 G/DL (3.4-5.0) L Globulin 6.4 g/dL Albumin/Globulin Ratio 0.3 (1.0-2.7) L Current Medications Medications (Trade) Dose Ordered Sig/Torsten Route PRN Reason Start Time Stop Time Status Last Admin Dose Admin Acetaminophen (Tylenol) 650 mg Q4H PRN GT Mild Pain/Temp > 100.5 10/21/17 06:30 11/20/17 06:29 10/22/17 12:08 Albuterol/ Ipratropium (Albuterol/ Ipratropium) 3 ml EVERY 4 HOURS PRN HHN Shortness of Breath 10/25/17 12:00 10/30/17 23:59 Cefepime HCl 2 gm/ Sodium Chloride 55 ml @ 110 mls/hr EVERY 12 HOURS IVPB 10/24/17 10:00 10/31/17 09:59 10/27/17 08:37 Dextrose 1,000 ml @ 50 mls/hr Q20H IV 10/25/17 21:30 11/24/17 21:29 10/26/17 20:09 Dextrose (Dextrose 50%) STAT PRN IV Hypoglycemia 10/20/17 22:30 11/19/17 22:29 Heparin Sodium (Porcine) (Heparin 5000 units/ml) 5,000 units EVERY 12 HOURS SUBQ 10/21/17 09:00 11/20/17 08:59 10/27/17 08:36 Lorazepam (Ativan 2mg/ml 1ml) 2 mg EVERY 2 HOURS PRN IV For Anxiety 10/20/17 22:30 10/27/17 22:29 10/24/17 03:14 Memantine (Namenda) 5 mg TWICE A DAY GT 10/21/17 09:00 11/20/17 08:59 10/27/17 17:03 Morphine Sulfate (Morphine Sulfate) 4 mg EVERY 4 HOURS PRN IVP Severe Pain (Pain Scale 7-10) 10/25/17 12:00 11/01/17 23:59 Pantoprazole (Protonix) 40 mg DAILY IV 10/21/17 09:00 11/20/17 08:59 10/27/17 08:35 Polyethylene Glycol (Miralax) 17 gm DAILYPRN PRN ORAL Constipation 10/20/17 22:30 11/19/17 22:29 Trazodone HCl (Desyrel) 50 mg BEDTIME PRN GT insomnia 10/20/17 22:30 11/19/17 22:29 Vancomycin HCl (Vanco rx to dose) 1 ea DAILYPRN PRN MISC RX TO DOSE PROTOCOL 10/21/17 13:00 11/20/17 12:59 Vancomycin HCl 1 gm/Dextrose 275 ml @ 183.3 mls/ hr Q24H IVPB 10/26/17 16:00 10/31/17 15:59 10/27/17 16:48 COLBY BRICENO M.D. Oct 27, 2017 17:13
[2017-10-27 20:00] VITALS: BP 121/90
[2017-10-28] VITALS: BP 127/67
[2017-10-28 04:00] VITALS: BP 129/64
[2017-10-28 04:16] LABS: BASOPHILS % (AUTO) 1.4 % (0.0-2.0); EOSINOPHILS % (AUTO) 2.1 % (0.0-3.0); HEMATOCRIT 28.4 % (37.0-47.0); HEMOGLOBIN 9.4 G/DL (12.0-16.0); LYMPHOCYTES % (AUTO) 17.2 % (20.0-45.0); MEAN CORPUSCULAR VOLUME 91 FL (80-99); MONOCYTES % (AUTO) 6.7 % (1.0-10.0); NEUTROPHILS % (AUTO) 72.5 % (45.0-75.0); PLATELET COUNT 505 K/UL (150-450); RED BLOOD COUNT 3.13 M/UL (4.20-5.40); RED CELL DISTRIBUTION WIDTH 12.9 % (11.6-14.8); WHITE BLOOD COUNT 10.5 K/UL (4.8-10.8)
[2017-10-28 04:51] LABS: ALANINE AMINOTRANSFERASE 32 U/L (12-78); ALBUMIN 1.9 G/DL (3.4-5.0); ALBUMIN/GLOBULIN RATIO 0.3 (1.0-2.7); ALKALINE PHOSPHATASE 72 U/L (46-116); ANION GAP 6 mmol/L (5-15); ASPARTATE AMINO TRANSFERASE 23 U/L (15-37); BILIRUBIN,TOTAL 0.2 MG/DL (0.2-1.0); BLOOD UREA NITROGEN 13 mg/dL (7-18); CARBON DIOXIDE 30 MMOL/L (21-32); CHLORIDE 102 MMOL/L (98-107); CREATININE 0.9 MG/DL (0.55-1.30); PHOSPHORUS 3.5 MG/DL (2.5-4.9); POTASSIUM 3.8 MMOL/L (3.5-5.1); SODIUM 137 MMOL/L (136-145)
--- NOTE | 2017-10-28 07:25 | Pulmonology Progress Note ---
Assessment/Plan Assessment/Plan ASSESSMENT Acute and chronic respiratory failure VDRF/trach status Sepsis bacteremia with Staph , prob contamination PNA with MDRO Encephalopathy Dysphagia, Feeding by G-tube Anemia , s/p blood transfusion Hypernatremia PAF abnormal ECG with QT prolongation PLAN OF CARE MARTHA vent/trach care, pulm toilet baseline ABG stable on current settings, keep as is and titrate as needed CT chest with PNA, sputum cx wit MDRO abx ID follows bl cx - Staph capitus; likely contamination-, repeated blood cx prel negative fup with CXR cardio follows ECHO with pEF Amiodarone on hold for now hyper Na resolved with IVF, dc rate to 50 cc/hr aspiration precautions; GT feeding, monitor tolerance DVT GI prophylaxis seizure precautions, not on any a/convulsant monitor counts, transfuse prn monitor renal parameters, correct lytes as needed, avoid nephrotoxic supportive care bowel regimen dc plan in 1-2 days case discussed and evaluated by supervising physician Subjective Allergies: Coded Allergies: ASPIRIN (Verified Allergy, Unknown, 07/07/17) Subjective persistent leukocytosis resolved , afebrile, no signs of resp distress on current vent settings Objective Last 24 Hour Vital Signs Date Time Temp Pulse Resp B/P (MAP) Pulse Ox O2 Delivery O2 Flow Rate FiO2 10/28/17 06:38 65 18 35 10/28/17 05:30 83 19 35 10/28/17 04:00 98.1 68 20 129/64 100 35 98.1 10/28/17 04:00 35 10/28/17 04:00 69 10/28/17 02:38 62 18 35 10/28/17 01:25 72 18 35 10/28/17 00:00 97.7 67 20 127/67 100 35 97.7 10/28/17 00:00 35 10/28/17 00:00 61 10/27/17 23:10 56 18 35 10/27/17 20:42 55 18 35 10/27/17 20:00 76 10/27/17 20:00 97.9 69 20 121/90 100 35 97.9 10/27/17 20:00 35 10/27/17 19:01 63 18 35 10/27/17 16:37 69 18 35 10/27/17 16:00 35 10/27/17 16:00 74 10/27/17 16:00 96.4 71 20 127/62 99 35 96.4 10/27/17 14:51 74 18 35 10/27/17 12:48 72 18 35 10/27/17 12:00 35 10/27/17 12:00 97.9 69 18 146/60 99 35 97.9 10/27/17 12:00 70 10/27/17 10:40 68 18 35 10/27/17 08:46 72 18 35 10/27/17 08:00 98.1 65 18 131/68 99 35 98.1 10/27/17 08:00 35 10/27/17 08:00 71 Intake and Output 10/27/17 10/28/17 19:00 07:00 Intake Total 1645 ml 1050 ml Output Total 1000 ml 800 ml Balance 645 ml 250 ml Intake Free Water 150 ml IV Total 835 ml 390 ml Tube Feeding 660 ml 660 ml Output Urine Total 1000 ml 800 ml Objective General Appearance: no acute distress, awake, responsive, bedridden, vent dependent female in NAD on Vent AC 600-35%-18 PEEP 5 HEENT: status post trach - Portex#8, secretions moderate, white, thick Cardiovascular: normal rate, regular rhythm - SR on tele Abdomen: soft, non tender, non distended, G tube Extremities: no edema Neurologic/Psychiatric: abnormal gait, responsive, spastic Musculoskeletal: atrophy - BLE Laboratory Tests 10/28/17 03:35: White Blood Count 10.5, Red Blood Count 3.13L, Hemoglobin 9.4L, Hematocrit 28.4L , Mean Corpuscular Volume 91, Mean Corpuscular Hemoglobin 30.0, Mean Corpuscular Hemoglobin Concent 33.1, Red Cell Distribution Width 12.9, Platelet Count 505H, Mean Platelet Volume 6.1L, Neutrophils (%) (Auto) 72.5, Lymphocytes (%) (Auto) 17.2L, Monocytes (%) (Auto) 6.7, Eosinophils (%) (Auto) 2.1, Basophils (%) (Auto) 1.4, Sodium Level 137, Potassium Level 3.8, Chloride Level 102, Carbon Dioxide Level 30, Anion Gap 6, Blood Urea Nitrogen 13, Creatinine 0.9, Estimat Glomerular Filtration Rate , Glucose Level 103, Calcium Level 9.0, Phosphorus Level 3.5, Magnesium Level 1.9, Total Bilirubin 0.2, Aspartate Amino Transf (AST/SGOT) 23, Alanine Aminotransferase (ALT/SGPT) 32, Alkaline Phosphatase 72, Total Protein 8.0, Albumin 1.9L, Globulin 6.1, Albumin/Globulin Ratio 0.3L Current Medications Medications (Trade) Dose Ordered Sig/Torsten Route PRN Reason Start Time Stop Time Status Last Admin Dose Admin Acetaminophen (Tylenol) 650 mg Q4H PRN GT Mild Pain/Temp > 100.5 10/21/17 06:30 11/20/17 06:29 10/22/17 12:08 Albuterol/ Ipratropium (Albuterol/ Ipratropium) 3 ml EVERY 4 HOURS PRN HHN Shortness of Breath 10/25/17 12:00 10/30/17 23:59 Cefepime HCl 2 gm/ Sodium Chloride 55 ml @ 110 mls/hr EVERY 12 HOURS IVPB 10/24/17 10:00 10/31/17 09:59 10/27/17 21:02 Dextrose 1,000 ml @ 50 mls/hr Q20H IV 10/25/17 21:30 11/24/17 21:29 10/28/17 00:16 Dextrose (Dextrose 50%) STAT PRN IV Hypoglycemia 10/20/17 22:30 11/19/17 22:29 Heparin Sodium (Porcine) (Heparin 5000 units/ml) 5,000 units EVERY 12 HOURS SUBQ 10/21/17 09:00 11/20/17 08:59 10/27/17 21:04 Memantine (Namenda) 5 mg TWICE A DAY GT 10/21/17 09:00 11/20/17 08:59 10/27/17 17:03 Morphine Sulfate (Morphine Sulfate) 4 mg EVERY 4 HOURS PRN IVP Severe Pain (Pain Scale 7-10) 10/25/17 12:00 11/01/17 23:59 Pantoprazole (Protonix) 40 mg DAILY IV 10/21/17 09:00 11/20/17 08:59 10/27/17 08:35 Polyethylene Glycol (Miralax) 17 gm DAILYPRN PRN ORAL Constipation 10/20/17 22:30 11/19/17 22:29 Trazodone HCl (Desyrel) 50 mg BEDTIME PRN GT insomnia 10/20/17 22:30 11/19/17 22:29 Ramos ([facility])Tatiana NP Oct 28, 2017 07:25
[2017-10-28 08:00] VITALS: BP 124/61
[2017-10-28] MEDS: Memantine 10mg tab GT SCH ×2 (08:48→17:26)
[2017-10-28] MEDS: Pantoprazole Inj IV SCH (08:48)
[2017-10-28] MEDS: Heparin 5000 units/ml inj SUBQ SCH ×2 (08:49→21:10)
[2017-10-28] MEDS: Cefepime HCl 2 GM in NS 55 ML IVPB SCH ×2 (08:50→21:03)
[2017-10-28 12:00] VITALS: BP 133/59
[2017-10-28] MEDS ORDERED: Albuterol/Ipratropium 3ml neb HHN PRN (12:30)
--- NOTE | 2017-10-28 12:59 | Cardiology Progress Note ---
Assessment/Plan Assessment/Plan 1. respiratyory fialrue 2. Pulmonary infiltrates. 3. PAF 4. Anemia. 5. sepsis 6. Gastrostomy tube dependence. 7. Ventilator dependence 8. hyper natremia 9. abn ekg with qt prolongation tele sinus bp is fine amiod on hold Subjective ROS Limited/Unobtainable: Yes Objective Last 24 Hour Vital Signs Date Time Temp Pulse Resp B/P (MAP) Pulse Ox O2 Delivery O2 Flow Rate FiO2 10/28/17 12:00 99.4 69 18 133/59 99 35 99.4 10/28/17 12:00 35 10/28/17 10:35 85 18 35 10/28/17 09:00 71 10/28/17 08:50 66 18 35 10/28/17 08:00 35 10/28/17 08:00 98.5 72 20 124/61 99 35 98.5 10/28/17 06:38 65 18 35 10/28/17 05:30 83 19 35 10/28/17 04:00 98.1 68 20 129/64 100 35 98.1 10/28/17 04:00 35 10/28/17 04:00 69 10/28/17 02:38 62 18 35 10/28/17 01:25 72 18 35 10/28/17 00:00 97.7 67 20 127/67 100 35 97.7 10/28/17 00:00 35 10/28/17 00:00 61 10/27/17 23:10 56 18 35 10/27/17 20:42 55 18 35 10/27/17 20:00 76 10/27/17 20:00 97.9 69 20 121/90 100 35 97.9 10/27/17 20:00 35 10/27/17 19:01 63 18 35 10/27/17 16:37 69 18 35 10/27/17 16:00 35 10/27/17 16:00 74 10/27/17 16:00 96.4 71 20 127/62 99 35 96.4 10/27/17 14:51 74 18 35 General Appearance: on vent, patient on isolation, other - comfortable Intake and Output 10/27/17 10/28/17 19:00 07:00 Intake Total 1645 ml 1050 ml Output Total 1000 ml 800 ml Balance 645 ml 250 ml Intake Free Water 150 ml IV Total 835 ml 390 ml Tube Feeding 660 ml 660 ml Output Urine Total 1000 ml 800 ml Laboratory Tests Test 10/28/17 03:35 White Blood Count 10.5 K/UL (4.8-10.8) Red Blood Count 3.13 M/UL (4.20-5.40) L Hemoglobin 9.4 G/DL (12.0-16.0) L Hematocrit 28.4 % (37.0-47.0) L Mean Corpuscular Volume 91 FL (80-99) Mean Corpuscular Hemoglobin 30.0 PG (27.0-31.0) Mean Corpuscular Hemoglobin Concent 33.1 G/DL (32.0-36.0) Red Cell Distribution Width 12.9 % (11.6-14.8) Platelet Count 505 K/UL (150-450) H Mean Platelet Volume 6.1 FL (6.5-10.1) L Neutrophils (%) (Auto) 72.5 % (45.0-75.0) Lymphocytes (%) (Auto) 17.2 % (20.0-45.0) L Monocytes (%) (Auto) 6.7 % (1.0-10.0) Eosinophils (%) (Auto) 2.1 % (0.0-3.0) Basophils (%) (Auto) 1.4 % (0.0-2.0) Sodium Level 137 MMOL/L (136-145) Potassium Level 3.8 MMOL/L (3.5-5.1) Chloride Level 102 MMOL/L (98-107) Carbon Dioxide Level 30 MMOL/L (21-32) Anion Gap 6 mmol/L (5-15) Blood Urea Nitrogen 13 mg/dL (7-18) Creatinine 0.9 MG/DL (0.55-1.30) Estimat Glomerular Filtration Rate mL/min (>60) Glucose Level 103 MG/DL (74-106) Calcium Level 9.0 MG/DL (8.5-10.1) Phosphorus Level 3.5 MG/DL (2.5-4.9) Magnesium Level 1.9 MG/DL (1.8-2.4) Total Bilirubin 0.2 MG/DL (0.2-1.0) Aspartate Amino Transf (AST/SGOT) 23 U/L (15-37) Alanine Aminotransferase (ALT/SGPT) 32 U/L (12-78) Alkaline Phosphatase 72 U/L (46-116) Total Protein 8.0 G/DL (6.4-8.2) Albumin 1.9 G/DL (3.4-5.0) L Globulin 6.1 g/dL Albumin/Globulin Ratio 0.3 (1.0-2.7) L ALAINA SINGLETON Oct 28, 2017 12:59
[2017-10-28 16:00] VITALS: BP 123/60
[2017-10-28 20:00] VITALS: BP 121/74
[2017-10-29] VITALS: BP 102/56
[2017-10-29 04:00] VITALS: BP 108/60
[2017-10-29 06:59] LABS: ANION GAP 7 mmol/L (5-15); BLOOD UREA NITROGEN 14 mg/dL (7-18); CALCIUM 9.6 MG/DL (8.5-10.1); CARBON DIOXIDE 29 MMOL/L (21-32); CHLORIDE 102 MMOL/L (98-107); CREATININE 0.9 MG/DL (0.55-1.30); POTASSIUM 3.9 MMOL/L (3.5-5.1); SODIUM 138 MMOL/L (136-145)
[2017-10-29 07:01] LABS: BASOPHILS % (AUTO) 1.5 % (0.0-2.0); EOSINOPHILS % (AUTO) 2.1 % (0.0-3.0); HEMATOCRIT 28.8 % (37.0-47.0); HEMOGLOBIN 9.9 G/DL (12.0-16.0); LYMPHOCYTES % (AUTO) 18.9 % (20.0-45.0); MEAN CORPUSCULAR VOLUME 91 FL (80-99); MONOCYTES % (AUTO) 6.4 % (1.0-10.0); NEUTROPHILS % (AUTO) 71.2 % (45.0-75.0); PLATELET COUNT 554 K/UL (150-450); RED BLOOD COUNT 3.18 M/UL (4.20-5.40); RED CELL DISTRIBUTION WIDTH 12.9 % (11.6-14.8); WHITE BLOOD COUNT 10.9 K/UL (4.8-10.8)
[2017-10-29 08:00] VITALS: BP 125/62
[2017-10-29] MEDS: Memantine 10mg tab GT SCH ×2 (08:39→17:53)
[2017-10-29] MEDS: Pantoprazole Inj IV SCH (08:39)
[2017-10-29] MEDS: Cefepime HCl 2 GM in NS 55 ML IVPB SCH ×2 (08:39→20:30)
[2017-10-29] MEDS: Heparin 5000 units/ml inj SUBQ SCH ×2 (08:40→20:34)
[2017-10-29 12:00] VITALS: BP 120/57
--- NOTE | 2017-10-29 13:12 | Cardiology Progress Note ---
Assessment/Plan Assessment/Plan 1. respiratyory fialrue 2. Pulmonary infiltrates. 3. PAF 4. Anemia. 5. sepsis 6. Gastrostomy tube dependence. 7. Ventilator dependence 8. hyper natremia 9. abn ekg with qt prolongation tele sinus bp is fine amiod on hold Subjective ROS Limited/Unobtainable: Yes Objective Last 24 Hour Vital Signs Date Time Temp Pulse Resp B/P (MAP) Pulse Ox O2 Delivery O2 Flow Rate FiO2 10/29/17 12:00 35 10/29/17 12:00 98.8 79 18 120/57 98 35 98.8 10/29/17 12:00 75 10/29/17 11:03 78 20 35 10/29/17 08:52 65 18 35 10/29/17 08:00 65 10/29/17 08:00 35 10/29/17 08:00 98.6 70 20 125/62 98 35 98.6 10/29/17 06:47 67 18 35 10/29/17 04:49 71 18 35 10/29/17 04:00 98.2 74 18 108/60 98 35 98.2 10/29/17 04:00 70 10/29/17 04:00 35 10/29/17 02:15 62 18 35 10/29/17 00:00 97.3 68 18 102/56 99 35 97.3 10/29/17 00:00 57 10/29/17 00:00 35 10/28/17 21:21 72 18 35 10/28/17 20:00 35 10/28/17 20:00 56 10/28/17 20:00 98.1 60 18 121/74 99 35 98.1 10/28/17 19:18 62 18 35 10/28/17 17:16 66 18 35 10/28/17 16:01 35 10/28/17 16:00 78 10/28/17 16:00 98.2 74 18 123/60 97 35 98.2 10/28/17 14:48 78 18 35 10/28/17 13:13 66 19 35 General Appearance: no apparent distress, on vent, patient on isolation Intake and Output 10/28/17 10/29/17 19:00 07:00 Intake Total 1355 ml 1460 ml Output Total 600 ml 850 ml Balance 755 ml 610 ml Intake Free Water 150 ml 200 ml IV Total 545 ml 655 ml Tube Feeding 660 ml 605 ml Output Urine Total 600 ml 850 ml Laboratory Tests Test 10/29/17 05:40 White Blood Count 10.9 K/UL (4.8-10.8) H Red Blood Count 3.18 M/UL (4.20-5.40) L Hemoglobin 9.9 G/DL (12.0-16.0) L Hematocrit 28.8 % (37.0-47.0) L Mean Corpuscular Volume 91 FL (80-99) Mean Corpuscular Hemoglobin 30.9 PG (27.0-31.0) Mean Corpuscular Hemoglobin Concent 34.2 G/DL (32.0-36.0) Red Cell Distribution Width 12.9 % (11.6-14.8) Platelet Count 554 K/UL (150-450) H Mean Platelet Volume 6.4 FL (6.5-10.1) L Neutrophils (%) (Auto) 71.2 % (45.0-75.0) Lymphocytes (%) (Auto) 18.9 % (20.0-45.0) L Monocytes (%) (Auto) 6.4 % (1.0-10.0) Eosinophils (%) (Auto) 2.1 % (0.0-3.0) Basophils (%) (Auto) 1.5 % (0.0-2.0) Sodium Level 138 MMOL/L (136-145) Potassium Level 3.9 MMOL/L (3.5-5.1) Chloride Level 102 MMOL/L (98-107) Carbon Dioxide Level 29 MMOL/L (21-32) Anion Gap 7 mmol/L (5-15) Blood Urea Nitrogen 14 mg/dL (7-18) Creatinine 0.9 MG/DL (0.55-1.30) Estimat Glomerular Filtration Rate mL/min (>60) Glucose Level 96 MG/DL (74-106) Calcium Level 9.6 MG/DL (8.5-10.1) ALAINA SINGLETON 4, 2018 13:11
--- NOTE | 2017-10-29 13:24 | Pulmonology Progress Note ---
Assessment/Plan Assessment/Plan ASSESSMENT Acute and chronic respiratory failure VDRF/trach status Sepsis bacteremia with Staph , prob contamination PNA with MDRO Encephalopathy Dysphagia, Feeding by G-tube Anemia Hypernatremia PAF abnormal ECG with prolonged QT interval PLAN OF CARE MARTHA vent/trach care, pulm toilet baseline ABG stable on current settings, keep as is and titrate as needed CT chest with PNA, sputum cx wit MDRO abx ID follows bl cx - Staph capitus; likely contamination-, repeated blood cx prel negative fup with CXR cardio follows ECHO with pEF Amiodarone on hold , resume when ok with cardio hyper Na resolved with IVF, dc rate to 50 cc/hr aspiration persecutions, GT feeding, monitor tolerance DVT GI prophylaxis seizure precautions, not on any a/convulsant monitor counts, transfuse prn monitor renal parameters, correct lytes as needed, avoid nephrotoxic supportive care bowel regimen dc plan for am ID to specify IV abx case discussed and evaluated by supervising physician Subjective Allergies: Coded Allergies: ASPIRIN (Verified Allergy, Unknown, 07/07/17) Subjective persistent leukocytosis resolved , afebrile, no signs of resp distress on current vent settings Objective Last 24 Hour Vital Signs Date Time Temp Pulse Resp B/P (MAP) Pulse Ox O2 Delivery O2 Flow Rate FiO2 10/29/17 12:00 35 10/29/17 12:00 98.8 79 18 120/57 98 35 98.8 10/29/17 12:00 75 10/29/17 11:03 78 20 35 10/29/17 08:52 65 18 35 10/29/17 08:00 65 10/29/17 08:00 35 10/29/17 08:00 98.6 70 20 125/62 98 35 98.6 10/29/17 06:47 67 18 35 10/29/17 04:49 71 18 35 10/29/17 04:00 98.2 74 18 108/60 98 35 98.2 10/29/17 04:00 70 10/29/17 04:00 35 10/29/17 02:15 62 18 35 10/29/17 00:00 97.3 68 18 102/56 99 35 97.3 10/29/17 00:00 57 10/29/17 00:00 35 10/28/17 21:21 72 18 35 10/28/17 20:00 35 10/28/17 20:00 56 10/28/17 20:00 98.1 60 18 121/74 99 35 98.1 10/28/17 19:18 62 18 35 10/28/17 17:16 66 18 35 10/28/17 16:01 35 10/28/17 16:00 78 10/28/17 16:00 98.2 74 18 123/60 97 35 98.2 10/28/17 14:48 78 18 35 Intake and Output 10/28/17 10/29/17 19:00 07:00 Intake Total 1355 ml 1460 ml Output Total 600 ml 850 ml Balance 755 ml 610 ml Intake Free Water 150 ml 200 ml IV Total 545 ml 655 ml Tube Feeding 660 ml 605 ml Output Urine Total 600 ml 850 ml Objective General Appearance: no acute distress, awake, responsive, bedridden, vent dependent female in NAD on Vent AC 600-35%-18 PEEP 5 HEENT: status post trach - Portex#8, secretions moderate, white, thick Cardiovascular: normal rate, regular rhythm - SR on tele Abdomen: soft, non tender, non distended, G tube Extremities: no edema Neurologic/Psychiatric: abnormal gait, responsive, spastic Musculoskeletal: atrophy - BLE Laboratory Tests 10/29/17 05:40: White Blood Count 10.9H, Red Blood Count 3.18L, Hemoglobin 9.9L, Hematocrit 28.8L, Mean Corpuscular Volume 91, Mean Corpuscular Hemoglobin 30.9, Mean Corpuscular Hemoglobin Concent 34.2, Red Cell Distribution Width 12.9, Platelet Count 554H, Mean Platelet Volume 6.4L, Neutrophils (%) (Auto) 71.2, Lymphocytes (%) (Auto) 18.9L, Monocytes (%) (Auto) 6.4, Eosinophils (%) (Auto) 2.1, Basophils (%) (Auto) 1.5, Sodium Level 138, Potassium Level 3.9, Chloride Level 102, Carbon Dioxide Level 29, Anion Gap 7, Blood Urea Nitrogen 14, Creatinine 0.9, Estimat Glomerular Filtration Rate , Glucose Level 96, Calcium Level 9.6 Current Medications Medications (Trade) Dose Ordered Sig/Torsten Route PRN Reason Start Time Stop Time Status Last Admin Dose Admin Acetaminophen (Tylenol) 650 mg Q4H PRN GT Mild Pain/Temp > 100.5 10/21/17 06:30 11/20/17 06:29 10/22/17 12:08 Albuterol/ Ipratropium (Albuterol/ Ipratropium) 3 ml EVERY 4 HOURS PRN HHN Shortness of Breath 10/28/17 12:30 11/02/17 23:59 Cefepime HCl 2 gm/ Sodium Chloride 55 ml @ 110 mls/hr EVERY 12 HOURS IVPB 10/24/17 10:00 10/31/17 09:59 10/29/17 08:39 Dextrose 1,000 ml @ 50 mls/hr Q20H IV 10/25/17 21:30 11/24/17 21:29 10/28/17 21:05 Dextrose (Dextrose 50%) STAT PRN IV Hypoglycemia 10/20/17 22:30 11/19/17 22:29 Heparin Sodium (Porcine) (Heparin 5000 units/ml) 5,000 units EVERY 12 HOURS SUBQ 10/21/17 09:00 11/20/17 08:59 10/29/17 08:40 Memantine (Namenda) 5 mg TWICE A DAY GT 10/21/17 09:00 11/20/17 08:59 10/29/17 08:39 Morphine Sulfate (Morphine Sulfate) 4 mg EVERY 4 HOURS PRN IVP Severe Pain (Pain Scale 7-10) 10/25/17 12:00 11/01/17 23:59 Pantoprazole (Protonix) 40 mg DAILY IV 10/21/17 09:00 11/20/17 08:59 10/29/17 08:39 Polyethylene Glycol (Miralax) 17 gm DAILYPRN PRN ORAL Constipation 10/20/17 22:30 11/19/17 22:29 Trazodone HCl (Desyrel) 50 mg BEDTIME PRN GT insomnia 10/20/17 22:30 11/19/17 22:29 Tatiana Ramos NP (Vanchtein) Oct 29, 2017 13:23
[2017-10-29 16:00] VITALS: BP 120/61
--- NOTE | 2017-10-29 16:40 | Infectious Diseases Prog Note ---
Assessment/Plan Assessment/Plan Assessment: Bacteremia : CoNS 1/2s setts ? contaminant Sepsis- PNA- MDRO Scx: PSA - H Influenza ( StrpGrG : contaminant ) 10/23 CT: Basilar consolidationairspace, primarily disease with a minor interstitial component suspicious for pneumonia -CXR: Bilateral pleural effusions or chronic pleural thickening. Extensive bilateral pulmonary infiltrates with some nodularity. Though this may be related to congestive heart failure and pulmonary edema, the possibility of malignancy is not excluded. Clinical correlation or further evaluation suggested. 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 History of seizure disorder Ventilator-dependent respiratory failure History of lower extremity DVT History of PEG and trach placement Plan: -continue Cefepime d# 6 / SP IV Vancomycin d # 7 / 7 10/24 SP change Meropenem d# 4 10/20 SP Unasyn #1, Flagyl #1 08/26 SP IV Meropenem and INH COlistin #14 P vancomycin and Zosyn d# 5 07/22 SP INH/IV Colistin #13, Tygacil #7 07/21 SP Meropenem d# 14/14 07/13 SP IV Vancomycin # 7 07/08 SP Amikacin d# 2 -Monitor CBC/BMP, temperatures -ETT/PEG care -aspiration precautions Subjective Constitutional: Denies: no symptoms, fever, chills, fatigue, anorexia, drenching sweats, other Allergies: Coded Allergies: ASPIRIN (Verified Allergy, Unknown, 07/07/17) Subjective afebrile Objective Vital Signs Last 24 Hour Vital Signs Date Time Temp Pulse Resp B/P (MAP) Pulse Ox O2 Delivery O2 Flow Rate FiO2 10/29/17 15:24 74 19 35 10/29/17 13:21 76 18 35 10/29/17 12:00 35 10/29/17 12:00 98.8 79 18 120/57 98 35 98.8 10/29/17 12:00 75 10/29/17 11:03 78 20 35 10/29/17 08:52 65 18 35 10/29/17 08:00 65 10/29/17 08:00 35 10/29/17 08:00 98.6 70 20 125/62 98 35 98.6 10/29/17 06:47 67 18 35 10/29/17 04:49 71 18 35 10/29/17 04:00 98.2 74 18 108/60 98 35 98.2 10/29/17 04:00 70 10/29/17 04:00 35 10/29/17 02:15 62 18 35 10/29/17 00:00 97.3 68 18 102/56 99 35 97.3 10/29/17 00:00 57 10/29/17 00:00 35 10/28/17 21:21 72 18 35 10/28/17 20:00 35 10/28/17 20:00 56 10/28/17 20:00 98.1 60 18 121/74 99 35 98.1 10/28/17 19:18 62 18 35 10/28/17 17:16 66 18 35 Height (Feet): 5 Height (Inches): 3.00 Weight (Pounds): 130 HEENT: anicteric Respiratory/Chest: no respiratory distress Cardiovascular: no gallop/murmur Abdomen: no organomegaly Laboratory Tests Test 10/29/17 05:40 White Blood Count 10.9 K/UL (4.8-10.8) H Red Blood Count 3.18 M/UL (4.20-5.40) L Hemoglobin 9.9 G/DL (12.0-16.0) L Hematocrit 28.8 % (37.0-47.0) L Mean Corpuscular Volume 91 FL (80-99) Mean Corpuscular Hemoglobin 30.9 PG (27.0-31.0) Mean Corpuscular Hemoglobin Concent 34.2 G/DL (32.0-36.0) Red Cell Distribution Width 12.9 % (11.6-14.8) Platelet Count 554 K/UL (150-450) H Mean Platelet Volume 6.4 FL (6.5-10.1) L Neutrophils (%) (Auto) 71.2 % (45.0-75.0) Lymphocytes (%) (Auto) 18.9 % (20.0-45.0) L Monocytes (%) (Auto) 6.4 % (1.0-10.0) Eosinophils (%) (Auto) 2.1 % (0.0-3.0) Basophils (%) (Auto) 1.5 % (0.0-2.0) Sodium Level 138 MMOL/L (136-145) Potassium Level 3.9 MMOL/L (3.5-5.1) Chloride Level 102 MMOL/L (98-107) Carbon Dioxide Level 29 MMOL/L (21-32) Anion Gap 7 mmol/L (5-15) Blood Urea Nitrogen 14 mg/dL (7-18) Creatinine 0.9 MG/DL (0.55-1.30) Estimat Glomerular Filtration Rate mL/min (>60) Glucose Level 96 MG/DL (74-106) Calcium Level 9.6 MG/DL (8.5-10.1) Current Medications Medications (Trade) Dose Ordered Sig/Torsten Route PRN Reason Start Time Stop Time Status Last Admin Dose Admin Acetaminophen (Tylenol) 650 mg Q4H PRN GT Mild Pain/Temp > 100.5 10/21/17 06:30 11/20/17 06:29 10/22/17 12:08 Albuterol/ Ipratropium (Albuterol/ Ipratropium) 3 ml EVERY 4 HOURS PRN HHN Shortness of Breath 10/28/17 12:30 11/02/17 23:59 Cefepime HCl 2 gm/ Sodium Chloride 55 ml @ 110 mls/hr EVERY 12 HOURS IVPB 10/24/17 10:00 10/31/17 09:59 10/29/17 08:39 Dextrose 1,000 ml @ 50 mls/hr Q20H IV 10/25/17 21:30 11/24/17 21:29 10/28/17 21:05 Dextrose (Dextrose 50%) STAT PRN IV Hypoglycemia 10/20/17 22:30 11/19/17 22:29 Heparin Sodium (Porcine) (Heparin 5000 units/ml) 5,000 units EVERY 12 HOURS SUBQ 10/21/17 09:00 11/20/17 08:59 10/29/17 08:40 Memantine (Namenda) 5 mg TWICE A DAY GT 10/21/17 09:00 11/20/17 08:59 10/29/17 08:39 Morphine Sulfate (Morphine Sulfate) 4 mg EVERY 4 HOURS PRN IVP Severe Pain (Pain Scale 7-10) 10/25/17 12:00 11/01/17 23:59 Pantoprazole (Protonix) 40 mg DAILY IV 10/21/17 09:00 11/20/17 08:59 10/29/17 08:39 Polyethylene Glycol (Miralax) 17 gm DAILYPRN PRN ORAL Constipation 10/20/17 22:30 11/19/17 22:29 Trazodone HCl (Desyrel) 50 mg BEDTIME PRN GT insomnia 10/20/17 22:30 11/19/17 22:29 COLBY BRICENO M.D. Oct 29, 2017 16:40
[2017-10-29] MEDS ORDERED: Tubing IV Secondary IV ONE (18:26)
[2017-10-29] MEDS ORDERED: NS 275ml ONE (18:26)
[2017-10-29 20:00] VITALS: BP 136/70
[2017-10-30] VITALS: BP 124/64
[2017-10-30 04:00] VITALS: BP 115/58
[2017-10-30 07:28] LABS: BASOPHILS % (AUTO) 0.9 % (0.0-2.0); EOSINOPHILS % (AUTO) 2.2 % (0.0-3.0); HEMATOCRIT 28.5 % (37.0-47.0); HEMOGLOBIN 9.5 G/DL (12.0-16.0); LYMPHOCYTES % (AUTO) 21.1 % (20.0-45.0); MEAN CORPUSCULAR VOLUME 90 FL (80-99); MONOCYTES % (AUTO) 6.3 % (1.0-10.0); NEUTROPHILS % (AUTO) 69.4 % (45.0-75.0); PLATELET COUNT 534 K/UL (150-450); RED BLOOD COUNT 3.16 M/UL (4.20-5.40); RED CELL DISTRIBUTION WIDTH 13.4 % (11.6-14.8); WHITE BLOOD COUNT 9.7 K/UL (4.8-10.8)
[2017-10-30 07:53] LABS: ANION GAP 6 mmol/L (5-15); BLOOD UREA NITROGEN 16 mg/dL (7-18); CALCIUM 9.3 MG/DL (8.5-10.1); CARBON DIOXIDE 29 MMOL/L (21-32); CHLORIDE 101 MMOL/L (98-107); POTASSIUM 3.6 MMOL/L (3.5-5.1); SODIUM 136 MMOL/L (136-145)
[2017-10-30 08:00] VITALS: BP 127/87
[2017-10-30] MEDS: Memantine 10mg tab GT SCH ×2 (08:22→17:20)
[2017-10-30] MEDS: Pantoprazole Inj IV SCH (08:23)
[2017-10-30] MEDS: Heparin 5000 units/ml inj SUBQ SCH (08:26)
[2017-10-30] MEDS: Cefepime HCl 2 GM in NS 55 ML IVPB SCH (09:07)
--- NOTE | 2017-10-30 11:35 | Diagnostic Imaging Report ---
Indication: Shortness of breath Technique: One view of the chest Comparison: 10/25/2017 Findings: Stable or slightly improved bilateral diffuse mostly interstitial with some airspace disease. Bilateral pleural effusions, right greater than left, persist. Tracheostomy remains. Heart size is normal Impression: Stable or perhaps minimally improved bilateral parenchymal disease. 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
[2017-10-30 12:00] VITALS: BP 146/62
[2017-10-30] MEDS ORDERED: CEFEPIME-D1 GM/50 ML IVPB (12:32)
--- NOTE | 2017-10-30 12:34 | Pulmonology Progress Note ---
Assessment/Plan Problems: (1) Acute and chronic respiratory failure (2) Septic shock (3) Anemia (4) Seizure disorder (5) HTN (hypertension) Respiratory: monitor respiratory rate, adjust FIO2, CXR Cardiac: stop pressors, continue to monitor HR/BP Renal: F/U I&O Infectious Disease: check cultures, add antibiotics Gastrointestinal: continue feedings/current rate, hold feedings Endocrine: monitor blood sugar, check HgA1C Hematologic: transfuse if hgb<8.5 Neurologic: PRN Ativan, PRN Morphine, keep patient comfortable Affect: PRN ativan Prophylaxis: Heparin Notes Reviewed: cardio, 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 with: casework manager Subjective ROS Limited/Unobtainable: No HEENT: Repors: no symptoms Respiratory: Reports: no symptoms Allergies: Coded Allergies: ASPIRIN (Verified Allergy, Unknown, 07/07/17) Objective Last 24 Hour Vital Signs Date Time Temp Pulse Resp B/P (MAP) Pulse Ox O2 Delivery O2 Flow Rate FiO2 10/30/17 11:03 72 19 35 10/30/17 09:27 71 18 35 10/30/17 06:54 64 18 35 10/30/17 05:39 67 18 35 10/30/17 04:00 99.2 65 18 115/58 97 35 99.2 10/30/17 04:00 35 10/30/17 03:47 53 18 35 10/30/17 03:37 63 10/30/17 01:07 56 18 35 10/30/17 00:00 98.9 60 18 124/64 100 35 98.9 10/30/17 00:00 49 10/29/17 23:09 65 18 35 10/29/17 20:55 70 18 35 10/29/17 20:00 35 10/29/17 20:00 98.7 60 18 136/70 99 35 98.7 10/29/17 20:00 66 10/29/17 19:32 63 18 35 10/29/17 17:17 79 18 35 10/29/17 16:00 35 10/29/17 16:00 64 10/29/17 16:00 98.9 73 19 120/61 99 35 98.9 10/29/17 15:24 74 19 35 10/29/17 13:21 76 18 35 Intake and Output 10/29/17 10/30/17 19:00 07:00 Intake Total 1510 ml 1310 ml Output Total 650 ml 400 ml Balance 860 ml 910 ml Intake Free Water 150 ml 100 ml IV Total 645 ml 605 ml Tube Feeding 715 ml 605 ml Output Urine Total 650 ml 400 ml HEENT: normocephalic, atraumatic Respiratory/Chest: chest wall non-tender Breasts: no masses Cardiovascular: normal peripheral pulses Abdomen: normal bowel sounds, soft, non tender Genitourinary: normal external genitalia Extremities: no cyanosis Neurologic/Psychiatric: legal support manager II-XII grossly normal, abnormal gait Laboratory Tests 10/30/17 06:35: White Blood Count 9.7, Red Blood Count 3.16L, Hemoglobin 9.5L, Hematocrit 28.5L , Mean Corpuscular Volume 90, Mean Corpuscular Hemoglobin 30.0, Mean Corpuscular Hemoglobin Concent 33.3, Red Cell Distribution Width 13.4, Platelet Count 534H, Mean Platelet Volume 6.2L, Neutrophils (%) (Auto) 69.4, Lymphocytes (%) (Auto) 21.1, Monocytes (%) (Auto) 6.3, Eosinophils (%) (Auto) 2.2, Basophils (%) (Auto) 0.9, Sodium Level 136, Potassium Level 3.6, Chloride Level 101, Carbon Dioxide Level 29, Anion Gap 6, Blood Urea Nitrogen 16, Creatinine 1.0, Estimat Glomerular Filtration Rate , Glucose Level 115H, Calcium Level 9.3 Current Medications Medications (Trade) Dose Ordered Sig/Torsten Route PRN Reason Start Time Stop Time Status Last Admin Dose Admin Acetaminophen (Tylenol) 650 mg Q4H PRN GT Mild Pain/Temp > 100.5 10/21/17 06:30 11/20/17 06:29 10/22/17 12:08 Albuterol/ Ipratropium (Albuterol/ Ipratropium) 3 ml EVERY 4 HOURS PRN HHN Shortness of Breath 10/28/17 12:30 11/02/17 23:59 Cefepime HCl 2 gm/ Sodium Chloride 55 ml @ 110 mls/hr EVERY 12 HOURS IVPB 10/24/17 10:00 10/31/17 09:59 10/30/17 09:07 Dextrose 1,000 ml @ 50 mls/hr Q20H IV 10/25/17 21:30 11/24/17 21:29 10/29/17 18:16 Dextrose (Dextrose 50%) STAT PRN IV Hypoglycemia 10/20/17 22:30 11/19/17 22:29 Heparin Sodium (Porcine) (Heparin 5000 units/ml) 5,000 units EVERY 12 HOURS SUBQ 10/21/17 09:00 11/20/17 08:59 10/30/17 08:26 Memantine (Namenda) 5 mg TWICE A DAY GT 10/21/17 09:00 11/20/17 08:59 10/30/17 08:22 Morphine Sulfate (Morphine Sulfate) 4 mg EVERY 4 HOURS PRN IVP Severe Pain (Pain Scale 7-10) 10/25/17 12:00 11/01/17 23:59 Pantoprazole (Protonix) 40 mg DAILY IV 10/21/17 09:00 11/20/17 08:59 10/30/17 08:23 Polyethylene Glycol (Miralax) 17 gm DAILYPRN PRN ORAL Constipation 10/20/17 22:30 11/19/17 22:29 Trazodone HCl (Desyrel) 50 mg BEDTIME PRN GT insomnia 10/20/17 22:30 11/19/17 22:29 COBY LEBLANC Oct 30, 2017 12:34
[2017-10-30 16:00] VITALS: BP 132/74
--- NOTE | 2017-10-30 21:57 | Infectious Diseases Prog Note ---
Assessment/Plan Assessment/Plan Assessment: Bacteremia : CoNS 1/2s setts ? contaminant Sepsis- PNA- MDRO Scx: PSA - H Influenza ( StrpGrG : contaminant ) 10/23 CT: Basilar consolidationairspace, primarily disease with a minor interstitial component suspicious for pneumonia -CXR: Bilateral pleural effusions or chronic pleural thickening. Extensive bilateral pulmonary infiltrates with some nodularity. Though this may be related to congestive heart failure and pulmonary edema, the possibility of malignancy is not excluded. Clinical correlation or further evaluation suggested. 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 History of seizure disorder Ventilator-dependent respiratory failure History of lower extremity DVT History of PEG and trach placement Plan: -continue Cefepime d# SP IV Vancomycin d # 7 10/24 SP change Meropenem d# 4 10/20 SP Unasyn #1, Flagyl #1 08/26 SP IV Meropenem and INH COlistin #14 P vancomycin and Zosyn d# 5 07/22 SP INH/IV Colistin #13, Tygacil #7 07/21 SP Meropenem d# 14/14 07/13 SP IV Vancomycin # 7 07/08 SP Amikacin d# 2 -Monitor CBC/BMP, temperatures -ETT/PEG care -aspiration precautions Subjective Allergies: Coded Allergies: ASPIRIN (Verified Allergy, Unknown, 07/07/17) Subjective afebrile Objective Vital Signs Last 24 Hour Vital Signs Date Time Temp Pulse Resp B/P (MAP) Pulse Ox O2 Delivery O2 Flow Rate FiO2 10/30/17 16:56 65 18 35 10/30/17 16:00 64 10/30/17 16:00 35 10/30/17 16:00 98.6 81 18 132/74 98 Mechanical Ventilator 35 98.6 10/30/17 15:11 57 18 35 10/30/17 12:42 73 18 35 10/30/17 12:02 64 10/30/17 12:00 98.8 72 17 146/62 99 Mechanical Ventilator 35 98.8 10/30/17 12:00 35 10/30/17 11:03 72 19 35 10/30/17 09:27 71 18 35 10/30/17 08:00 35 10/30/17 08:00 98.6 65 18 127/87 99 35 98.6 10/30/17 07:49 62 10/30/17 06:54 64 18 35 10/30/17 05:39 67 18 35 10/30/17 04:00 99.2 65 18 115/58 97 35 99.2 10/30/17 04:00 35 10/30/17 03:47 53 18 35 10/30/17 03:37 63 10/30/17 01:07 56 18 35 10/30/17 00:00 98.9 60 18 124/64 100 35 98.9 10/30/17 00:00 49 10/29/17 23:09 65 18 35 Height (Feet): 5 Height (Inches): 3.00 Weight (Pounds): 130 Respiratory/Chest: no respiratory distress Cardiovascular: no gallop/murmur Abdomen: soft, non tender Laboratory Tests Test 10/30/17 06:35 White Blood Count 9.7 K/UL (4.8-10.8) Red Blood Count 3.16 M/UL (4.20-5.40) L Hemoglobin 9.5 G/DL (12.0-16.0) L Hematocrit 28.5 % (37.0-47.0) L Mean Corpuscular Volume 90 FL (80-99) Mean Corpuscular Hemoglobin 30.0 PG (27.0-31.0) Mean Corpuscular Hemoglobin Concent 33.3 G/DL (32.0-36.0) Red Cell Distribution Width 13.4 % (11.6-14.8) Platelet Count 534 K/UL (150-450) H Mean Platelet Volume 6.2 FL (6.5-10.1) L Neutrophils (%) (Auto) 69.4 % (45.0-75.0) Lymphocytes (%) (Auto) 21.1 % (20.0-45.0) Monocytes (%) (Auto) 6.3 % (1.0-10.0) Eosinophils (%) (Auto) 2.2 % (0.0-3.0) Basophils (%) (Auto) 0.9 % (0.0-2.0) Sodium Level 136 MMOL/L (136-145) Potassium Level 3.6 MMOL/L (3.5-5.1) Chloride Level 101 MMOL/L (98-107) Carbon Dioxide Level 29 MMOL/L (21-32) Anion Gap 6 mmol/L (5-15) Blood Urea Nitrogen 16 mg/dL (7-18) Creatinine 1.0 MG/DL (0.55-1.30) Estimat Glomerular Filtration Rate mL/min (>60) Glucose Level 115 MG/DL (74-106) H Calcium Level 9.3 MG/DL (8.5-10.1) COLBY BRICENO M.D. Oct 30, 2017 21:57
--- NOTE | 2017-11-02 08:53 | Discharge Summary ---
Discharge Summary Hospital Course Date of Admission Oct 20, 2017 at 21:43 Date of Discharge Oct 30, 2017 at 19:31 Admitting Diagnosis anemia, sepsis, pneumonia HPI Symone Aragon is a 82 year old female who was admitted on Oct 20, 2017 at 21:43 for Anemia,Sepsis,Pneumonia Hospital Course dc summary #[id number] Discharge Medications New Medications: Cefepime Hcl/D5w (Cefepime-Dextrose 1 Gm/50 Ml) 1 Gm/50 Ml Piggyback 1 GM IVPB EVERY 12 HOURS for 10 Days, BAG Continued Medications: Amiodarone Hcl* (Pacerone*) 200 Mg Tablet 200 MG GT DAILY for 30 Days, TAB Lorazepam* (Lorazepam*) 0.5 Mg Tablet 0.5 MG GT Q6HR PRN for For Anxiety, TAB Ondansetron* (Zofran*) 4 Mg/2 Ml Vial 4 MG IM Q6H PRN for Nausea & Vomiting, VIAL Discharge Condition Upon Discharge: stable Discharge Disposition Patient was discharged to SNF/Subacute Facility(03) Discharge Diagnoses: Richard (Chelsieluda)Tatiana NP Nov 02, 2017 08:53
--- NOTE | 2017-11-02 22:00 | Discharge Summary 2 SIG ---
DATE OF ADMISSION: 10/20/2017 DATE OF DISCHARGE: 10/30/2017 REASON FOR ADMISSION: 82-year-old female with chronic respiratory failure, ventilator dependent, tracheostomy status, history of CVA, seizure disorder, encephalopathy, hypertension, dysphagia, G-tube, quadriplegia, lower extremity DVT, and chronic obstructive pulmonary disease, was sent from the [facility]-way [facility] for evaluation due to difficulty breathing. The patient was found to have leukocytosis -15.5, anemia, hemoglobin- 7.3, and hematocrit- 22.3. Troponin- 0.994. Chest x-ray revealed evidence of bilateral pleural effusion with extensive bilateral pulmonary infiltrates. EKG showed prolonged QT interval. The patient was febrile and tachypneic. The patient admitted with diagnoses of sepsis, likely secondary to pneumonia, acute on chronic respiratory failure, elevated troponin, anemia, seizure disorder, hypertension. HOSPITAL COURSE: The patient admitted to [facility]. The patient started on empiric antibiotics. ID and Cardiology consults were requested. Blood culture revealed Staphylococcus capitis. Sputum culture revealed Pseudomonas, Haemophilus, and Strep group G. Influenza screen was negative. Repeated blood culture on 10/22/2017 were negative. Per Infectious Disease doctor, pneumonia with multidrug-resistant organism with Pseudomonas and Haemophilus influenzae, while Strep group G was contaminant. Bacteremia cleared, probably contaminant, as per ID specialist. Leukocytosis improved. Fever resolved. Influenza screen negative. The patient with history of recent ventilator-associated pneumonia, status post treatment. ID recommended to continue antibiotics at the subacute facility to complete the course. Ventilator support and pulmonary toilet provided along with tracheostomy care. Baseline ABG was stable on current settings. Settings were kept as is and titrated as needed. CT chest revealed pneumonia with basilar consolidation. Echocardiogram revealed preserved ejection fraction of 60% to 65%, moderate left ventricular hypertrophy, no evidence of pericardial effusion, mild diastolic dysfunction grade 1, and right ventricular systolic pressure consistent with mild pulmonary hypertension. Troponin trending down. According to agricultural inspector, minimal elevation of troponin insignificant, ECG no evidence of acute ischemic changes. Minimal troponin elevation possibly due to sepsis. Blood pressure remained stable. The patient with history of paroxysmal atrial fibrillation noted. ECG with persistent QT prolongation. Amlodipine was placed on hold per Cardiology recommendations. Patient remained in sinus rhythm on telemetry. TSH and LFT within normal limits. The patient was transfused with two units of packed red blood cells upon admission. After transfusion, hemoglobin and hematocrit remain at the baseline. Prior to discharge, hemoglobin- 9.5, hematocrit -28.5, no evidence of acute bleeding. The patient was on G-tube feeding. Strict aspiration precautions were maintained. G-tube feeding tolerance was closely monitored. The patient was able to tolerate feeding. The patient was on gentle hydration for hypernatremia. Hypernatremia resolved with IV fluids. DVT and GI prophylaxes provided. Seizure precautions maintained. No evidence of seizure activity while in the hospital. The patient was not on any anticonvulsants. Renal parameters and electrolytes were closely monitored. Nephrotoxics were avoided. Supportive care provided. Bowel regimen instituted. The patient was stable for discharge back to subacute facility. FINAL DIAGNOSIS: 1. Sepsis due to PNA 2. Pneumonia with multidrug-resistant organism. 3. Encephalopathy. 4. Acute on chronic respiratory failure. 5. Ventilator-dependent respiratory failure with tracheostomy status. 6. Dysphagia, G-tube. 7. Anemia, status post blood transfusion. 8. Hypernatremia, resolved. 9. Paroxysmal atrial fibrillation. 10. Abnormal ECG with prolonged QT interval DISCHARGE INSTRUCTIONS: The patient discharged to subacute half-way facility. FOLLOWUP: Follow up with medical doctor and police judge at the facility. DISCHARGE MEDICATIONS: See medication reconciliation list. Complete intravenous cefepime as specified in medication reconciliation list Sue Yu M.D. Tatiana Ramos (Vanchtein) N.PShady DR: SHARRI JOB#: [id number] CC: [facility]
== END 2017-10-30 19:31 | DRG 870 ==
LOC: EDBD 19:55 → EMR 20:48 → 2W 21:43 → EDBEDREQ 22:04
PROC: 5A1955Z Respiratory Ventilation, Greater than 96 Consecutive Hours (ICD-10-PCS; principal; 2017-10-20)
DX: A41.9 Sepsis, unspecified organism (principal); J96.20 Acute and chronic respiratory failure, unspecified whether with hypoxia or hypercapnia; R65.21 Severe sepsis with septic shock; J18.9 Pneumonia, unspecified organism; G93.40 Encephalopathy, unspecified; G82.50 Quadriplegia, unspecified; Z99.11 Dependence on respirator [ventilator] status; I48.0 Paroxysmal atrial fibrillation; E87.0 Hyperosmolality and hypernatremia; Z93.0 Tracheostomy status; G40.909 Epilepsy, unspecified, not intractable, without status epilepticus; Z93.1 Gastrostomy status; D64.9 Anemia, unspecified; I10 Essential (primary) hypertension; F03.90 Unspecified dementia, unspecified severity, without behavioral disturbance, psychotic disturbance, mood disturbance, and anxiety; J44.9 Chronic obstructive pulmonary disease, unspecified; Z86.718 Personal history of other venous thrombosis and embolism; R13.10 Dysphagia, unspecified; I45.81 Long QT syndrome; I27.20 Pulmonary hypertension, unspecified
CPT/HCPCS: 36415; 36600; 71045; 71250; 80048; 80053; 80069; 80202; 81003; 82550; 82553; 82803; 82962; 83605; 83735; 83880; 84100; 84443; 84484; 85007; 85025; 85651; 86140; 86710; 86850; 86900; 86901; 86920; 87040; 87070; 87081; 87181; 87205; 93005; 93306; 93970; 94002; 94003; 94640; 94664; 99285; J7620; J8499

== ENCOUNTER 2018-09-11 01:25 | Inpatient (IN) | payer MEDICARE, OTHER, MEDICAID ==
[~2018-09-11] VITALS: Ht 160 cm; Wt 62.6 kg
[~2018-09-11 01:25] MED LIST changes: +ACETAMINOPHEN325 M1 GT; +ATIVAN0.5 MG ORAL; +CEFEPIME-D1 GM/50 ML IVPB; +HEPARIN SO5000 UNIT2 SUBQ; +HIBICLENS118 ML TP; +OMEPRAZOLE20 M3 GT; +UTI-STAT L3875 MG/31 GT; +ZOFRAN 4 MG4 MG/2 ML IM
[2018-09-11] MEDS ORDERED: SYNTHROID112 MCG ORAL (01:32)
[2018-09-11] MEDS ORDERED: COLACE100 MG ORAL (01:32)
[2018-09-11] MEDS ORDERED: PROTONIX40 MG ORAL (01:32)
[2018-09-11] MEDS ORDERED: KLONOPIN0.5 MG ORAL (01:32)
[2018-09-11] MEDS ORDERED: HEPARIN2000 UNIT/ IV (01:32)
[2018-09-11] MEDS ORDERED: ACETAMINOPHEN500 MG ORAL (01:32)
[2018-09-11 01:45] VITALS: BP 153/61
--- NOTE | 2018-09-11 01:45 | NUR ---
ED Nurse Note: Pt was brought in ED by Ambulance from [facility]. c/o Malfunction of G-tube. Pt is Awake, none verbal, able to open eyes, Pt is on Vantilater with setting: AC, 12, TV 450, O2 40% Peep5. Portex 8#. IV on right hand 24 G. G-tube in place, incontenent. Skin on sacrum area intact. waing for orders.
--- NOTE | 2018-09-11 02:01 | Emergency Room Report ---
History of Present Illness General Chief Complaint: Malfunctioning Gastric Tube Source: EMS, PMD Present Illness HPI Patient presents from nursing facility by paramedics There was a recent manipulation of the feeding tube and what sounds to be a recent placement of the feeding tube Later on there was a question of possible ileus There was no reports of vomiting or diarrhea patient herself has significant dementia and is not able to provide Any history There was no reports of fever I do not have the specific radiology read however the transfer report States question ileus Allergies: Coded Allergies: ASPIRIN (Verified Allergy, Unknown, 07/07/17) Patient History Limited by: medical condition Past Medical History: see triage record Pertinent Family History: unable to obtain Last Menstrual Period: n/a Now: No Reviewed Nursing Documentation: PMH: Agreed; PSxH: Agreed Nursing Documentation-PMH Past Medical History: No History, Except For Hx Cardiac Problems: Yes - Arrythmia Hx Hypertension: Yes Hx COPD: Yes Hx Cancer: No Hx Gastrointestinal Problems: Yes - G-tube Hx Dialysis: No Hx Neurological Problems: Yes Hx Cerebrovascular Accident: Yes - Encephalopathy, Qudrplegia Hx Dementia: Yes Hx Seizures: Yes - epilepsy Hx Epilepsy: Yes Review of Systems All Other Systems: limited - Other than the ones mentioned in the history of present illness all others are reviewed however they do stay limited due to the patient's mental status Physical Exam Vital Signs Date Time Temp Pulse Resp B/P (MAP) Pulse Ox O2 Delivery O2 Flow Rate FiO2 09/11/18 01:26 98.8 76 14 132/64 97 Room Air 09/11/18 01:57 40 Sp02 EP Interpretation: reviewed, normal General Appearance: no apparent distress Head: normocephalic Eyes: bilateral eye PERRL ENT: normal pharynx, no angioedema Neck: supple Respiratory: lungs clear, no retraction, other - Tracheostomy in place Cardiovascular #1: regular rate, rhythm Gastrointestinal: non tender, soft, other - Feeding tube in place Musculoskeletal: other - Chronically debilitated does not follow commands Neurologic: responsive - To physical stimulation Skin: normal color Lymphatic: no adenopathy Medical Decision Making Diagnostic Impression: Primary Impression: Ileus Additional Impression: Tracheostomy care ER Course Patient is a fairly complex patient with multiple differential to consideration including but not limited to cardiac cardiopulmonary and vascular emergencies Patient's blood work reveals similar findings to previous Given the complaints from the nursing facility initial KUB was obtained difficult to evaluate therefore CT imaging was initiated Patient does not show any active signs of vomiting Is admitted for further surgical evaluation and inpatient care Please note that the CT imaging does read other differentials as well however patient does not have a fever no obvious cough and will be deferred to further inpatient care Labs Test 09/11/18 04:57 09/11/18 17:15 White Blood Count 9.8 K/UL (4.8-10.8) Red Blood Count 3.45 M/UL (4.20-5.40) Hemoglobin 10.2 G/DL (12.0-16.0) Hematocrit 31.4 % (37.0-47.0) Mean Corpuscular Volume 91 FL (80-99) Mean Corpuscular Hemoglobin 29.6 PG (27.0-31.0) Mean Corpuscular Hemoglobin Concent 32.5 G/DL (32.0-36.0) Red Cell Distribution Width 13.6 % (11.6-14.8) Platelet Count 345 K/UL (150-450) Mean Platelet Volume 6.0 FL (6.5-10.1) Neutrophils (%) (Auto) 65.9 % (45.0-75.0) Lymphocytes (%) (Auto) 17.9 % (20.0-45.0) Monocytes (%) (Auto) 7.2 % (1.0-10.0) Eosinophils (%) (Auto) 8.5 % (0.0-3.0) Basophils (%) (Auto) 0.5 % (0.0-2.0) Sodium Level 138 MMOL/L (136-145) Potassium Level 4.5 MMOL/L (3.5-5.1) Chloride Level 102 MMOL/L (98-107) Carbon Dioxide Level 27 MMOL/L (21-32) Anion Gap 9 mmol/L (5-15) Blood Urea Nitrogen 57 mg/dL (7-18) Creatinine 1.7 MG/DL (0.55-1.30) Estimat Glomerular Filtration Rate mL/min (>60) Glucose Level 108 MG/DL (74-106) Calcium Level 9.9 MG/DL (8.5-10.1) C-Reactive Protein, Quantitative 8.9 mg/dL (0.00-0.90) Urine Color Pale yellow Urine Appearance Cloudy Urine pH 5 (4.5-8.0) Urine Specific Hodge 1.010 (1.005-1.035) Urine Protein 1+ (NEGATIVE) Urine Glucose (UA) Negative (NEGATIVE) Urine Ketones Negative (NEGATIVE) Urine Blood 2+ (NEGATIVE) Urine Nitrite Negative (NEGATIVE) Urine Bilirubin Negative (NEGATIVE) Urine Urobilinogen Normal MG/DL (0.0-1.0) Urine Leukocyte Esterase 3+ (NEGATIVE) Urine RBC 2-4 /HPF (0 - 2) Urine WBC 5-10 /HPF (0 - 2) Urine Squamous Epithelial Cells Occasional /LPF Urine Bacteria Few /HPF (NONE) Urine Random Sodium 20 mmol/L (20-110) Rhythm Strip Diag. Results EP Interpretation: yes Rate: 70 Rhythm: NSR, no PVC's, no ectopy Other X-Ray Diagnostic Results Other X-Ray Diagnostic Results : X-Ray ordered: KUB # of Views/Limited Vs Complete: 1 View Indication: Pain EP Interpretation: Yes Interpretation: no dislocation, no soft tissue swelling, no fractures, other - No obvious free air Impression: No acute disease CT/MRI/US Diagnostic Results CT/MRI/US Diagnostic Results : Impression CT abdomen pelvisIMPRESSION: Fecal impaction within the rectum. Patchy infiltrates at the lung bases. Consider pneumonia. Atherosclerotic disease Gastrostomy Broad-based ventral abdominal wall hernia. Gallstones. Last Vital Signs Date Time Temp Pulse Resp B/P (MAP) Pulse Ox O2 Delivery O2 Flow Rate FiO2 09/11/18 01:57 78 17 Mechanical Ventilator 40 09/11/18 01:26 98.8 132/64 97 Status: improved Disposition: ADMITTED INPATIENT Condition: Serious Referrals: Rl White DO (PCP) Clau Jones DO Sep 11, 2018 02:01
--- NOTE | 2018-09-11 04:40 | NUR ---
ED Nurse Note: Blood sample collected and sent to Lab.
[2018-09-11 05:03] LABS: BASOPHILS % (AUTO) 0.5 % (0.0-2.0); EOSINOPHILS % (AUTO) 8.5 % (0.0-3.0); HEMATOCRIT 31.4 % (37.0-47.0); HEMOGLOBIN 10.2 G/DL (12.0-16.0); LYMPHOCYTES % (AUTO) 17.9 % (20.0-45.0); MEAN CORPUSCULAR VOLUME 91 FL (80-99); MONOCYTES % (AUTO) 7.2 % (1.0-10.0); NEUTROPHILS % (AUTO) 65.9 % (45.0-75.0); PLATELET COUNT 345 K/UL (150-450); RED BLOOD COUNT 3.45 M/UL (4.20-5.40); RED CELL DISTRIBUTION WIDTH 13.6 % (11.6-14.8); WHITE BLOOD COUNT 9.8 K/UL (4.8-10.8)
[2018-09-11 05:14] LABS: ANION GAP 9 mmol/L (5-15); BLOOD UREA NITROGEN 57 mg/dL (7-18); CALCIUM 9.9 MG/DL (8.5-10.1); CARBON DIOXIDE 27 MMOL/L (21-32); CHLORIDE 102 MMOL/L (98-107); CREATININE 1.7 MG/DL (0.55-1.30); POTASSIUM 4.5 MMOL/L (3.5-5.1); SODIUM 138 MMOL/L (136-145)
--- NOTE | 2018-09-11 06:44 | NUR ---
ED Nurse Note: Called [facility], was told that will be transfered after 07:30.
[2018-09-11] MEDS ORDERED: LORazepam Inj 2mg/ml 1ml IV PRN (07:30)
[2018-09-11] MEDS ORDERED: Miralax 17gm pkt ORAL PRN (07:30)
[2018-09-11] MEDS ORDERED: Albuterol/Ipratropium 3ml neb HHN PRN (07:30)
[2018-09-11] MEDS ORDERED: TraZODone 50mg tab GT PRN (07:30)
[2018-09-11] MEDS ORDERED: Morphine Sulfate 4mg/ml Inj (IV/IM USE ONLY) IVP PRN (07:30)
--- NOTE | 2018-09-11 07:30 | NUR ---
TRANSFER TO FLOOR: Patient transferred to [facility]/242 as ordered . Report given to Josie/RN. Belongings sent with Pt and rechecked with RN.
--- NOTE | 2018-09-11 07:30 | NUR ---
NURSE NOTES: Received patient from [facility]. Patient on ambu-bag when transported. Patient is nonverbal at this time. Patient does not respond to her name. Patient opens eyes spontaneously but makes no effort to communicate. Patient trach to ventilator with setting of AC 12, TV 450, FiO2 40%, and PEEP 5. Patient has a portex 8 trach at this time. Patient has a g tube. Patient admitted for G tube malfunction. Will follow up. Patient has an order for G tube feeding at this time. Will assess whether this is possible at this time due to patient having possible illeus/bowel obstruction. Will follow up with primary doctor for GI consult. Patient skin intact at this time. Patient has a right hand 24G PIV that is patent and asymptomatic at this time. Patient bed in low position with bed alarm on and call light in reach at this time.
[2018-09-11 07:46] VITALS: BP 112/52
[2018-09-11] MEDS ORDERED: Pantoprazole Inj IV SCH (09:00)
--- NOTE | 2018-09-11 09:14 | Diagnostic Imaging Report ---
Indication: Abdominal pain Technique: Continuous helical transaxial imaging of the abdomen and pelvis was obtained from the lung bases to the pubic symphysis. No intravenous contrast was administered. Coronal 2-D reformats were also obtained. Automatic Exposure Control was utilized. Total Dose length Product (DLP): [address] Dose Index Volume (CTDIvol): 0.15, 18.6 mGy Comparison: none Findings: Patchy infiltrates are present at the lung bases. Consider pneumonia. Moderate mural calcification of the aorta demonstrated. Gallstones noted. Gastrostomy noted in good position. No evidence of bowel obstruction. Surgical absence of the uterus demonstrated. The rectum is somewhat diffusely distended with stool having a transverse diameter of about 9 cm. There is no free fluid or free air. Tiny nonobstructive stone may be present within the lower pole the right kidney. A few very small hypodensities are noted within the liver too small to characterize adequately especially on noncontrast imaging. There is a wide based protrusion of the ventral abdominal wall due to a hernia. IMPRESSION: Fecal impaction within the rectum. Patchy infiltrates at the lung bases. Consider pneumonia. Atherosclerotic disease Gastrostomy Broad-based ventral abdominal wall hernia. Gallstones. [facility] has communicated the preliminary results to the Emergency Department. Their findings are largely concordant with this report. The CT scanner at [facility] is accredited by the [employer] and the scans are performed using dose optimization techniques as appropriate to a performed exam including Automatic Exposure control.
[2018-09-11] MEDS ORDERED: Vancomycin 1 GM in D5W 275 ML IVPB ONE (09:30)
[2018-09-11] MEDS: Heparin 5000 units/ml inj SUBQ SCH ×2 (09:52→22:47)
[2018-09-11] MEDS ORDERED: Fleet's Mineral Oil Enema RECTAL SCH ×2 (10:00→16:00)
--- NOTE | 2018-09-11 10:14 | Consultation ---
History of Present Illness General Date patient seen: Sep 11, 2018 Chief Complaint: Malfunctioning Gastric Tube Present Illness HPI 83-year-old female with hx of trach/vent/peg dementia, total care, quadriplegic sent in by [facility] with CC of Gtube malfunction. She had a CT scan in ER showing ileus, fecal impaction and infiltrate of the lungs. She is admitted to [facility] for further evaluation. She is in vegetative state and can't give any history. Allergies: Coded Allergies: ASPIRIN (Verified Allergy, Unknown, 07/07/17) Medication History Scheduled Acetaminophen* (Tylenol Extra Strength*), 1,000 MG ORAL Q6H, (Reported) Albuterol Sulfate* (Albuterol Sulfate Hhn*), 3 ML INH Q6H, (Reported) Ascorbic Acid* (Vitamin C*), 500 MG GT DAILY, (Reported) Cefepime Hcl/D5w (Cefepime-Dextrose 1 Gm/50 Ml), 1 GM IVPB EVERY 12 HOURS Clonazepam* (Klonopin*), 0.5 MG ORAL Q6H, (Reported) Cran/Vitc/Mannose/Inulin/Brom (Uti-Stat Liquid), Unknown Dose GT BID, (Reported) Docusate Sodium* (Colace*), 100 MG GT DAILY, (Reported) Docusate Sodium* (Colace*), 100 MG ORAL DAILY, (Reported) Heparin Sod (Porcine) (Heparin Sodium*), 5,000 UNITS SUBQ EVERY 12 HOURS, ( Reported) Latanoprost* (Xalatan*), 1 DROP BOTH EYES BEDTIME, (Reported) Levothyroxine Sodium* (Synthroid*), 112 MCG ORAL DAILY, (Reported) Memantine Hcl* (Namenda*), 5 MG GT TWICE A DAY, (Reported) Multivitamin Liquid* (Multi-Delyn*), 5 ML GT DAILY, (Reported) Omeprazole (Omeprazole), 20 MG GT DAILY, (Reported) Pantoprazole* (Protonix*), 40 MG ORAL DAILY, (Reported) Scheduled PRN Acetaminophen* (Acetaminophen 325MG Tablet*), 650 MG GT Q4H PRN for Fever/ Headache/Mild Pain, (Reported) Albuterol Sulfate* (Albuterol Sulfate Hhn*), 3 ML INH Q3HR PRN for Shortness of Breath, (Reported) Bisacodyl (Bisacodyl), 10 MG RC PRN PRN for Constipation, (Reported) Lorazepam* (Lorazepam*), 0.5 MG GT Q6HR PRN for For Anxiety, (Reported) Magnesium Hydroxide* (Milk Of Magnesia*), 30 ML GT DAILY PRN for Constipation, ( Reported) Ondansetron* (Zofran*), 4 MG IM Q6H PRN for Nausea & Vomiting, (Reported) Trazodone Hcl* (Desyrel*), 50 MG GT BEDTIME PRN for insomnia, (Reported) Miscellaneous Medications Chlorhexidine Gluconate* (Hibiclens*), Unknown Dose TP, (Reported) Heparin Sodium,Porcine/Ns/Pf (Heparin), 2,000 UNIT IV, (Reported) Patient History Healthcare decision maker Resuscitation status Advanced Directive on File Past Medical/Surgical History Past Medical/Surgical History: (1) Chronic vegetative state (2) Chronic respiratory failure (3) Seizure disorder (4) HTN (hypertension) (5) Cardiomyopathy (6) Tracheostomy care Review of Systems All Other Systems: negative except mentioned in HPI Physical Exam General Appearance: WD/WN, no apparent distress Lines, tubes and drains: peripheral HEENT: normocephalic, atraumatic Neck: non-tender, normal alignment Respiratory/Chest: chest wall non-tender, lungs clear, decreased breath sounds Cardiovascular/Chest: normal peripheral pulses Abdomen: normal bowel sounds, non tender 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 Last 24 Hour Vital Signs Date Time Temp Pulse Resp B/P (MAP) Pulse Ox O2 Delivery O2 Flow Rate FiO2 09/11/18 09:20 78 21 35 09/11/18 07:55 80 09/11/18 07:46 98.8 75 30 112/52 (72) 97 09/11/18 07:30 98.7 77 15 123/62 97 Mechanical Ventilator 40 09/11/18 07:20 81 21 35 09/11/18 07:20 80 16 Mechanical Ventilator 35 09/11/18 04:59 74 15 40 09/11/18 03:21 76 17 40 09/11/18 02:00 40 09/11/18 01:58 78 23 40 09/11/18 01:57 78 17 Mechanical Ventilator 40 09/11/18 01:45 98.7 76 14 153/61 97 Mechanical Ventilator 40 09/11/18 01:26 98.8 76 14 132/64 97 Room Air Intake and Output 09/10/18 09/11/18 19:00 07:00 Intake Total 100 ml Output Total 230 ml Balance -130 ml Intake Other 100 ml Output Urine Total 230 ml Laboratory Tests Test 09/11/18 04:57 White Blood Count 9.8 K/UL (4.8-10.8) Red Blood Count 3.45 M/UL (4.20-5.40) L Hemoglobin 10.2 G/DL (12.0-16.0) L Hematocrit 31.4 % (37.0-47.0) L Mean Corpuscular Volume 91 FL (80-99) Mean Corpuscular Hemoglobin 29.6 PG (27.0-31.0) Mean Corpuscular Hemoglobin Concent 32.5 G/DL (32.0-36.0) Red Cell Distribution Width 13.6 % (11.6-14.8) Platelet Count 345 K/UL (150-450) Mean Platelet Volume 6.0 FL (6.5-10.1) L Neutrophils (%) (Auto) 65.9 % (45.0-75.0) Lymphocytes (%) (Auto) 17.9 % (20.0-45.0) L Monocytes (%) (Auto) 7.2 % (1.0-10.0) Eosinophils (%) (Auto) 8.5 % (0.0-3.0) H Basophils (%) (Auto) 0.5 % (0.0-2.0) Sodium Level 138 MMOL/L (136-145) Potassium Level 4.5 MMOL/L (3.5-5.1) Chloride Level 102 MMOL/L (98-107) Carbon Dioxide Level 27 MMOL/L (21-32) Anion Gap 9 mmol/L (5-15) Blood Urea Nitrogen 57 mg/dL (7-18) H Creatinine 1.7 MG/DL (0.55-1.30) H Estimat Glomerular Filtration Rate mL/min (>60) Glucose Level 108 MG/DL (74-106) H Calcium Level 9.9 MG/DL (8.5-10.1) C-Reactive Protein, Quantitative 8.9 mg/dL (0.00-0.90) H Height (Feet): 5 Height (Inches): 3.00 Weight (Pounds): 136 Medications Current Medications Medications (Trade) Dose Ordered Sig/Torsten Route PRN Reason Start Time Stop Time Status Last Admin Dose Admin Acetaminophen (Tylenol) 650 mg Q4H PRN ORAL FEVER 09/11/18 07:30 10/11/18 07:29 Albuterol/ Ipratropium (Albuterol/ Ipratropium) 3 ml EVERY 4 HOURS PRN HHN Shortness of Breath 09/11/18 07:30 09/16/18 07:29 Dextrose (Dextrose 50%) 25 ml Q30M PRN IV Hypoglycemia 09/11/18 08:30 10/11/18 08:23 Dextrose (Dextrose 50%) 50 ml Q30M PRN IV hypoglycemia 09/11/18 08:30 10/11/18 08:29 Dextrose/Sodium Chloride 1,000 ml @ 150 mls/hr Q6H40M IV 09/11/18 10:15 10/11/18 10:14 Heparin Sodium (Porcine) (Heparin 5000 units/ml) 5,000 units EVERY 12 HOURS SUBQ 09/11/18 09:00 10/11/18 08:59 09/11/18 09:52 Levothyroxine Sodium (Synthroid) 50 mcg DAILY IV 09/11/18 11:30 10/11/18 11:29 Lorazepam (Ativan 2mg/ml 1ml) 2 mg EVERY 2 HOURS PRN IV For Anxiety 09/11/18 07:30 09/18/18 07:29 Mineral Oil (Fleet's Mineral Oil Enema) 133 ml ONCE RECTAL 09/11/18 10:00 09/11/18 11:30 Mineral Oil (Mineral Oil) 30 ml DAILYPRN PRN ORAL Constipation 09/11/18 10:00 10/11/18 09:59 Morphine Sulfate (Morphine Sulfate) 4 mg EVERY 4 HOURS PRN IVP Severe Pain (Pain Scale 7-10) 09/11/18 07:30 09/18/18 07:29 Ondansetron HCl (Zofran) 4 mg Q6H PRN IVP Nausea & Vomiting 09/11/18 07:30 10/11/18 07:29 Pantoprazole (Protonix) 40 mg DAILY IV 09/11/18 09:00 10/11/18 08:59 09/11/18 09:48 Polyethylene Glycol (Miralax) 17 gm DAILYPRN PRN ORAL Constipation 09/11/18 07:30 10/11/18 07:29 Trazodone HCl (Desyrel) 50 mg BEDTIME PRN GT insomnia 09/11/18 07:30 10/11/18 07:29 Vancomycin HCl 1 gm/Dextrose 275 ml @ 183.3 mls/ hr ONCE ONCE IVPB 09/11/18 09:30 09/11/18 11:00 09/11/18 09:57 Vancomycin/Sodium Chloride 250 ml @ 166.667 mls/hr Q24H IVPB 09/12/18 09:00 09/17/18 08:59 Assessment/Plan Problem List: (1) Acute and chronic respiratory failure ICD Codes: J96.20 - Acute and chronic respiratory failure, unspecified whether with hypoxia or hypercapnia SNOMED: 14183923 (2) Nosocomial pneumonia ICD Codes: J18.9 - Pneumonia, unspecified organism SNOMED: 685629636 (3) ATN (acute tubular necrosis) ICD Codes: N17.0 - Acute kidney failure with tubular necrosis SNOMED: 62266341 (4) Fecal impaction ICD Codes: K56.41 - Fecal impaction SNOMED: 38469731 (5) Bowel obstruction ICD Codes: K56.609 - Unspecified intestinal obstruction, unspecified as to partial versus complete obstruction SNOMED: 33330819 (6) Chronic vegetative state ICD Codes: R40.3 - Persistent vegetative state SNOMED: 49252152 (7) Cardiomyopathy ICD Codes: I42.9 - Cardiomyopathy, unspecified SNOMED: 66403132 (8) Seizure disorder ICD Codes: G40.909 - Epilepsy, unspecified, not intractable, without status epilepticus SNOMED: 377279231 Assessment/Plan NPO iv fluids check electrolytes GI evaluation titrate vent setting titrate fio2 Gtube site care trach site care Sue Yu MD Sep 11, 2018 10:14
[2018-09-11] MEDS ORDERED: D5 1/2NS 1,000 ML IV SCH (10:15)
--- NOTE | 2018-09-11 10:55 | Diagnostic Imaging Report ---
Indication: Abdominal pain Comparison: None Single view of the abdomen obtained Findings: Bowel gas pattern is nonspecific. There is moderate stool and contrast material in the colon. Interstitial opacities noted at the lung bases. No mass, ectopic calcifications, or abnormal gas collections are identified. The bones are unremarkable. Impression: No acute findings
--- NOTE | 2018-09-11 11:50 | NUR ---
RD ASSESSMENT & RECOMMENDATIONS SEE CARE ACTIVITY FOR COMPLETE ASSESSMENT DAILY ESTIMATED NEEDS: Needs based on Critical Care 61.7kg 22-28 kcals/kg 0638-5643 total kcals 1.2-2 g protein/kg 74-123 g total protein 25-30 mL/kg 1076-9447 total fluid mLs NUTRITION DIAGNOSIS: Swallowing difficulty R/T respiratory status, dysphagia as evidenced by pt w/ trach/vent dep, PEG dep, currently NPO for ileus. CURRENT TF:NPO ENTERAL NUTRITION RECOMMENDATIONS: Jevity 1.2 @ 55ml/hr x 24 hrs to provide 1320ml, 1584kcal, 73g prot, 1065ml free water - Once medically appropriate, initiate TF on Jevity 1.2 @ 15ml/hr x 6 hrs. - Advance 10ml q 4-6 hrs as tolerated to goal rate - HOB >30 degrees/ water flushes per MD If IV Synthroid changes to GT Synthroid - Hold 1 hour before and after Synthroid Med - Change TF rate and run time -> Jevity 1.2 @ 60ml/hr x 22 hrs to provide 1320ml, 1584kcal, 73g prot, 1065ml free water ADDITIONAL RECOMMENDATIONS: 1) Monitor NPO status, ability to resume TF 2) Monitor lytes, replete as needed . . .
[2018-09-11 12:00] VITALS: BP 143/73
--- NOTE | 2018-09-11 13:39 | NUR ---
NURSE NOTES:WOUND CARE NOTES:Pt presents with multiple pressure injuries in close proximity to occiput.No odor or exudate noted. Each ulcer is clean and viable. Skin assessed under trach collar and dry ,scaly plaques that are darker than is normal skin tone noted. Hyperpigmentation R gluteal cleft from resolved pressure injury. L Heel boggy with non-blanchable erythema with delineated borders. Lateral R heel dry ,boggy with brownish discoloration laterally without erythema. Generalized dry plaques noted. Not able to confirm with pt if skin is itchy but pt continuously squirms in bed. Tx.Plan:Cleanse ulcer Occiput with Saline.Apply Therahoney .Cover with Optifoam drsg Q3rd day. Secure with Kerlix as needed. Apply Moisture Barrier to Sacrum .Cover with Optifoam drsg every 3 days and prn. Apply Cavilon Barrier wipes to R and L trochanter. Cover with Optifoam drsgs .Change every 7 days and prn. Apply Cavilon Barrier wipes to Both heels .Cover with Optifoam drsg. Change every 7 days and prn. Air fluidized mattress. Reposition at least every 2 hours or as tolerated. Off-load heels with pillow.
--- NOTE | 2018-09-11 14:25 | Consultation ---
History of Present Illness General Date patient seen: Sep 11, 2018 Chief Complaint: Malfunctioning Gastric Tube Present Illness HPI 83 y/o F with hx of HTN, seizure disorder, dementia, quadriplegic, chronic resp failure VDRF, LE DVT, s/p peg and trach, COPD, hx of PNA and septic shock with MDRO, hx of MDR ABC VAP 07/2017, MDRO PSA PNA 10/2017, custodial resident presented to ED on 09/11 with G tube malfunction. CT revealed ileus, fecal impaction and infiltrates of the lungs. No vomiting, diarrhea, fever No increased vent settings and no significant secretions Allergies: Coded Allergies: ASPIRIN (Verified Allergy, Unknown, 07/07/17) Medication History Scheduled Acetaminophen* (Tylenol Extra Strength*), 1,000 MG ORAL Q6H, (Reported) Albuterol Sulfate* (Albuterol Sulfate Hhn*), 3 ML INH Q6H, (Reported) Ascorbic Acid* (Vitamin C*), 500 MG GT DAILY, (Reported) Cefepime Hcl/D5w (Cefepime-Dextrose 1 Gm/50 Ml), 1 GM IVPB EVERY 12 HOURS Clonazepam* (Klonopin*), 0.5 MG ORAL Q6H, (Reported) Cran/Vitc/Mannose/Inulin/Brom (Uti-Stat Liquid), Unknown Dose GT BID, (Reported) Docusate Sodium* (Colace*), 100 MG GT DAILY, (Reported) Docusate Sodium* (Colace*), 100 MG ORAL DAILY, (Reported) Heparin Sod (Porcine) (Heparin Sodium*), 5,000 UNITS SUBQ EVERY 12 HOURS, ( Reported) Latanoprost* (Xalatan*), 1 DROP BOTH EYES BEDTIME, (Reported) Levothyroxine Sodium* (Synthroid*), 112 MCG ORAL DAILY, (Reported) Memantine Hcl* (Namenda*), 5 MG GT TWICE A DAY, (Reported) Multivitamin Liquid* (Multi-Delyn*), 5 ML GT DAILY, (Reported) Omeprazole (Omeprazole), 20 MG GT DAILY, (Reported) Pantoprazole* (Protonix*), 40 MG ORAL DAILY, (Reported) Scheduled PRN Acetaminophen* (Acetaminophen 325MG Tablet*), 650 MG GT Q4H PRN for Fever/ Headache/Mild Pain, (Reported) Albuterol Sulfate* (Albuterol Sulfate Hhn*), 3 ML INH Q3HR PRN for Shortness of Breath, (Reported) Bisacodyl (Bisacodyl), 10 MG RC PRN PRN for Constipation, (Reported) Lorazepam* (Lorazepam*), 0.5 MG GT Q6HR PRN for For Anxiety, (Reported) Magnesium Hydroxide* (Milk Of Magnesia*), 30 ML GT DAILY PRN for Constipation, ( Reported) Ondansetron* (Zofran*), 4 MG IM Q6H PRN for Nausea & Vomiting, (Reported) Trazodone Hcl* (Desyrel*), 50 MG GT BEDTIME PRN for insomnia, (Reported) Miscellaneous Medications Chlorhexidine Gluconate* (Hibiclens*), Unknown Dose TP, (Reported) Heparin Sodium,Porcine/Ns/Pf (Heparin), 2,000 UNIT IV, (Reported) Patient History Healthcare decision maker Naomi Gonzalez Resuscitation status Full Code Advanced Directive on File No Patient History Narrative Pmhx: as above Shx: reviewed Fhx: non contributory Review of Systems All Other Systems: negative except mentioned in HPI Physical Exam Physical Exam Narrative General Appearance: WD/WN, no apparent distress Lines, tubes and drains: peripheral HEENT: normocephalic, atraumatic Neck: non-tender, normal alignment Respiratory/Chest: chest wall non-tender, lungs clear, decreased breath sounds Cardiovascular/Chest: normal peripheral pulses Abdomen: normal bowel sounds, non tender 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 II-XII grossly normal Last 24 Hour Vital Signs Date Time Temp Pulse Resp B/P (MAP) Pulse Ox O2 Delivery O2 Flow Rate FiO2 09/11/18 13:08 91 21 35 09/11/18 12:00 98.2 81 19 143/73 (96) 100 09/11/18 11:53 84 09/11/18 11:28 85 20 35 09/11/18 09:20 78 21 35 09/11/18 07:55 80 09/11/18 07:46 98.8 75 30 112/52 (72) 97 09/11/18 07:45 Mechanical Ventilator 09/11/18 07:30 98.7 77 15 123/62 97 Mechanical Ventilator 40 09/11/18 07:20 81 21 35 09/11/18 07:20 80 16 Mechanical Ventilator 35 09/11/18 04:59 74 15 40 09/11/18 03:21 76 17 40 09/11/18 02:00 40 09/11/18 01:58 78 23 40 09/11/18 01:57 78 17 Mechanical Ventilator 40 09/11/18 01:45 98.7 76 14 153/61 97 Mechanical Ventilator 40 09/11/18 01:26 98.8 76 14 132/64 97 Room Air Intake and Output 09/10/18 09/11/18 19:00 07:00 Intake Total 100 ml Output Total 230 ml Balance -130 ml Intake Other 100 ml Output Urine Total 230 ml Laboratory Tests Test 09/11/18 04:57 White Blood Count 9.8 K/UL (4.8-10.8) Red Blood Count 3.45 M/UL (4.20-5.40) L Hemoglobin 10.2 G/DL (12.0-16.0) L Hematocrit 31.4 % (37.0-47.0) L Mean Corpuscular Volume 91 FL (80-99) Mean Corpuscular Hemoglobin 29.6 PG (27.0-31.0) Mean Corpuscular Hemoglobin Concent 32.5 G/DL (32.0-36.0) Red Cell Distribution Width 13.6 % (11.6-14.8) Platelet Count 345 K/UL (150-450) Mean Platelet Volume 6.0 FL (6.5-10.1) L Neutrophils (%) (Auto) 65.9 % (45.0-75.0) Lymphocytes (%) (Auto) 17.9 % (20.0-45.0) L Monocytes (%) (Auto) 7.2 % (1.0-10.0) Eosinophils (%) (Auto) 8.5 % (0.0-3.0) H Basophils (%) (Auto) 0.5 % (0.0-2.0) Sodium Level 138 MMOL/L (136-145) Potassium Level 4.5 MMOL/L (3.5-5.1) Chloride Level 102 MMOL/L (98-107) Carbon Dioxide Level 27 MMOL/L (21-32) Anion Gap 9 mmol/L (5-15) Blood Urea Nitrogen 57 mg/dL (7-18) H Creatinine 1.7 MG/DL (0.55-1.30) H Estimat Glomerular Filtration Rate mL/min (>60) Glucose Level 108 MG/DL (74-106) H Calcium Level 9.9 MG/DL (8.5-10.1) C-Reactive Protein, Quantitative 8.9 mg/dL (0.00-0.90) H Height (Feet): 5 Height (Inches): 3.00 Weight (Pounds): 136 Medications Current Medications Medications (Trade) Dose Ordered Sig/Torsten Route PRN Reason Start Time Stop Time Status Last Admin Dose Admin Acetaminophen (Tylenol) 650 mg Q4H PRN ORAL FEVER 09/11/18 07:30 10/11/18 07:29 Albuterol/ Ipratropium (Albuterol/ Ipratropium) 3 ml EVERY 4 HOURS PRN HHN Shortness of Breath 09/11/18 07:30 09/16/18 07:29 Dextrose (Dextrose 50%) 25 ml Q30M PRN IV Hypoglycemia 09/11/18 08:30 10/11/18 08:23 Dextrose (Dextrose 50%) 50 ml Q30M PRN IV hypoglycemia 09/11/18 08:30 10/11/18 08:29 Dextrose/Sodium Chloride 1,000 ml @ 150 mls/hr Q6H40M IV 09/11/18 10:15 10/11/18 10:14 09/11/18 10:55 Heparin Sodium (Porcine) (Heparin 5000 units/ml) 5,000 units EVERY 12 HOURS SUBQ 09/11/18 09:00 10/11/18 08:59 09/11/18 09:52 Levothyroxine Sodium (Synthroid) 50 mcg DAILY IV 09/11/18 11:30 10/11/18 11:29 09/11/18 12:22 Lorazepam (Ativan 2mg/ml 1ml) 2 mg EVERY 2 HOURS PRN IV For Anxiety 09/11/18 07:30 09/18/18 07:29 Mineral Oil (Mineral Oil) 30 ml DAILYPRN PRN ORAL Constipation 09/11/18 10:00 10/11/18 09:59 Morphine Sulfate (Morphine Sulfate) 4 mg EVERY 4 HOURS PRN IVP Severe Pain (Pain Scale 7-10) 09/11/18 07:30 09/18/18 07:29 Ondansetron HCl (Zofran) 4 mg Q6H PRN IVP Nausea & Vomiting 09/11/18 07:30 10/11/18 07:29 Pantoprazole (Protonix) 40 mg DAILY IV 09/11/18 09:00 10/11/18 08:59 09/11/18 09:48 Polyethylene Glycol (Miralax) 17 gm DAILYPRN PRN ORAL Constipation 09/11/18 07:30 10/11/18 07:29 Trazodone HCl (Desyrel) 50 mg BEDTIME PRN GT insomnia 09/11/18 07:30 10/11/18 07:29 Vancomycin/Sodium Chloride 250 ml @ 166.667 mls/hr Q24H IVPB 09/12/18 09:00 09/17/18 08:59 Assessment/Plan Assessment/Plan Abx: IV Vancomycin 09/11- Assessment: GT malfunction -CT abd/p: Fecal impaction within the rectum. Patchy infiltrates at the lung bases. Consider pneumonia. Atherosclerotic disease. Gastrostomy. Broad-based ventral abdominal wall hernia. Gallstones. Doubt PNA-no increase in vent settings and minimal secretions Afebrile No leukocytosis Hx of recurrent PNA (VAP/HAP) -10/2017 MDR PSA, H. flu -sp cx MDR ACB 07/2017, s/p Rx Hypertension. History of seizure disorder Ventilator-dependent respiratory failure History of lower extremity DVT History of PEG and trach placement dementia quadriplegic COPD custodial resident Plan: -Will d/c IV Vancomycin #1 at this time; if febrile, leukocytosis, increased in vent settings/secretions/infiltrates will resume and add Zosyn. -f/u cx -Monitor CBC/CMP, temperatures -trach/peg care -aspiration precautions -GI f.u Thank you for this consultation. Will continue to follow along with you. Discussed with Yane Draper M.D. Sep 11, 2018 14:25
--- NOTE | 2018-09-11 14:35 | GI Initial Consult Note ---
History of Present Illness General Date patient seen: Sep 11, 2018 Time patient seen: 14:34 Reason for Hospitalization: Malfunctioning Gastric Tube Referring physician: AMY HUMPHRIES Reason for Consultation: MALFUNCTIONING G TUBE Present Illness HPI Patient presents from nursing facility by paramedics There was a recent manipulation of the feeding tube and what sounds to be a recent placement of the feeding tube Later on there was a question of possible ileus There was no reports of vomiting or diarrhea patient herself has significant dementia and is not able to provide Any history There was no reports of fever I do not have the specific radiology read however the transfer report States question ileus. GI consulted for report of malfunctioning Gtube. ROS limited, patient seen on mechanical ventilator NAD, no active s/x of N/V. GT assessed appears to be a recently changed; no noted drainage or erythema around the site. Abdominal Pelvis CT was taken, noted mainly for fecal impaction. Labs reviewed; normocytic anemia and renal insufficiency. Unknown history of GI procedures. Home Meds Active Scripts Cefepime Hcl/D5w (CEFEPIME-DEXTROSE 1 GM/50 ML) 1 Gm/50 Ml Piggyback, 1 GM IVPB EVERY 12 HOURS for 10 Days, BAG Prov:Sue Yu MD 10/30/17 Reported Medications Acetaminophen* (TYLENOL EXTRA STRENGTH*) 500 Mg Tablet, 1000 MG ORAL Q6H, TAB 09/11/18 Levothyroxine Sodium* (SYNTHROID*) 112 Mcg Tablet, 112 MCG ORAL DAILY, TAB Take in the morning on an empty stomach, at least 30 minutes before food. 09/11/18 Pantoprazole* (PROTONIX*) 40 Mg Tablet.dr, 40 MG ORAL DAILY, TAB 09/11/18 Clonazepam* (KLONOPIN*) 0.5 Mg Tablet, 0.5 MG ORAL Q6H, #15 TAB 0 Refills 09/11/18 Heparin Sodium,Porcine/Ns/Pf (Heparin) 2,000 Unit/1000 Ml Iv.soln, 2000 UNIT IV 09/11/18 Docusate Sodium* (COLACE*) 100 Mg Capsule, 100 MG ORAL DAILY, CAP 09/11/18 Lorazepam* (LORAZEPAM*) 0.5 Mg Tablet, 0.5 MG GT Q6HR PRN for For Anxiety, TAB 10/21/17 Albuterol Sulfate* (ALBUTEROL SULFATE HHN*) 2.5 Mg/3 Ml Vial.neb, 3 ML INH Q6H, #30 EA 0 Refills 10/21/17 Albuterol Sulfate* (ALBUTEROL SULFATE HHN*) 2.5 Mg/3 Ml Vial.neb, 3 ML INH Q3HR PRN for Shortness of Breath, EA 10/21/17 Ondansetron* (ZOFRAN*) 4 Mg/2 Ml Vial, 4 MG IM Q6H PRN for Nausea & Vomiting, VIAL 10/20/17 Latanoprost* (XALATAN*) 2.5 Ml Drops, 1 DROP BOTH EYES BEDTIME, ML 0 Refills 10/20/17 Ascorbic Acid* (VITAMIN C*) 500 Mg Tablet, 500 MG GT DAILY, #30 TAB 0 Refills 10/20/17 Cran/Vitc/Mannose/Inulin/Brom (UTI-STAT LIQUID) 3,875 Mg/30 Ml Liquid, GT BID, ML 10/20/17 Acetaminophen* (ACETAMINOPHEN 325MG TABLET*) 325 Mg Tablet, 650 MG GT Q4H PRN for Fever/Headache/Mild Pain, TAB 10/20/17 Omeprazole (OMEPRAZOLE) 20 Mg Tablet.dr, 20 MG GT DAILY, TAB 10/20/17 Multivitamin Liquid* (MULTI-DELYN*) 237 Ml Liquid, 5 ML GT DAILY, ML 10/20/17 Heparin Sod (Porcine) (HEPARIN SODIUM*) 5 000/1 Ml Vial, 5000 UNITS SUBQ EVERY 12 HOURS, VIAL 10/20/17 Bisacodyl (BISACODYL) 10 Mg Supp.rect, 10 MG RC PRN PRN for Constipation, SUPP 10/20/17 Docusate Sodium* (COLACE*) 100 Mg Capsule, 100 MG GT DAILY, CAP 10/20/17 Chlorhexidine Gluconate* (HIBICLENS*) 118 Ml Liquid, TP, ML 10/20/17 Trazodone Hcl* (DESYREL*) 50 Mg Tablet, 50 MG GT BEDTIME PRN for insomnia, TAB 07/07/17 Magnesium Hydroxide* (MILK OF MAGNESIA*) 400 Mg/5 Ml Oral.susp, 30 ML GT DAILY PRN for Constipation, ML 07/07/17 Memantine Hcl* (NAMENDA*) 5 Mg Tablet, 5 MG GT TWICE A DAY, TAB 07/07/17 Med list reviewed/reconciled: Yes Allergies: Coded Allergies: ASPIRIN (Verified Allergy, Unknown, 07/07/17) Patient History Limited by: medical condition History Provided By: Medical Record PMH Narrative Past Medical History: No History, Except For Hx Cardiac Problems: Yes - Arrhythmia Hx Hypertension: Yes Hx COPD: Yes Hx Cancer: No Hx Gastrointestinal Problems: Yes - G-tube Hx Dialysis: No Hx Neurological Problems: Yes Hx Cerebrovascular Accident: Yes - Encephalopathy, Qudrplegia Hx Dementia: Yes Hx Seizures: Yes - epilepsy Hx Epilepsy: Yes Social History: Denies: smoking, alcohol use, drug use, other Review of Systems All Other Systems: negative except mentioned in HPI Physical Exam Vital Signs Date Time Temp Pulse Resp B/P (MAP) Pulse Ox O2 Delivery O2 Flow Rate FiO2 09/11/18 01:26 98.8 76 14 132/64 97 Room Air 09/11/18 01:45 40 Sp02 EP Interpretation: reviewed, normal Labs Laboratory Tests Test 09/11/18 04:57 White Blood Count 9.8 K/UL (4.8-10.8) Red Blood Count 3.45 M/UL (4.20-5.40) L Hemoglobin 10.2 G/DL (12.0-16.0) L Hematocrit 31.4 % (37.0-47.0) L Mean Corpuscular Volume 91 FL (80-99) Mean Corpuscular Hemoglobin 29.6 PG (27.0-31.0) Mean Corpuscular Hemoglobin Concent 32.5 G/DL (32.0-36.0) Red Cell Distribution Width 13.6 % (11.6-14.8) Platelet Count 345 K/UL (150-450) Mean Platelet Volume 6.0 FL (6.5-10.1) L Neutrophils (%) (Auto) 65.9 % (45.0-75.0) Lymphocytes (%) (Auto) 17.9 % (20.0-45.0) L Monocytes (%) (Auto) 7.2 % (1.0-10.0) Eosinophils (%) (Auto) 8.5 % (0.0-3.0) H Basophils (%) (Auto) 0.5 % (0.0-2.0) Sodium Level 138 MMOL/L (136-145) Potassium Level 4.5 MMOL/L (3.5-5.1) Chloride Level 102 MMOL/L (98-107) Carbon Dioxide Level 27 MMOL/L (21-32) Anion Gap 9 mmol/L (5-15) Blood Urea Nitrogen 57 mg/dL (7-18) H Creatinine 1.7 MG/DL (0.55-1.30) H Estimat Glomerular Filtration Rate mL/min (>60) Glucose Level 108 MG/DL (74-106) H Calcium Level 9.9 MG/DL (8.5-10.1) C-Reactive Protein, Quantitative 8.9 mg/dL (0.00-0.90) H General Appearance: no apparent distress Head: normocephalic EENT: normal ENT inspection Neck: supple Respiratory: normal breath sounds, no respiratory distress, other - mech vent Cardiovascular: normal rate Gastrointestinal: normal inspection, non tender, soft, normal bowel sounds, non -distended, gt - 18 brazilian, recently replaced. Rectal: deferred Genitourinary: no CVA tenderness Musculoskeletal: normal inspection, back normal Neurologic: alert, responsive Skin: normal inspection, normal color, no rash, warm/dry, palpation normal, well hydrated Lymphatic: normal inspection, no adenopathy Current Medications Current Medications Medications (Trade) Dose Ordered Sig/Torsten Route PRN Reason Start Time Stop Time Status Last Admin Dose Admin Acetaminophen (Tylenol) 650 mg Q4H PRN ORAL FEVER 09/11/18 07:30 10/11/18 07:29 Albuterol/ Ipratropium (Albuterol/ Ipratropium) 3 ml EVERY 4 HOURS PRN HHN Shortness of Breath 09/11/18 07:30 09/16/18 07:29 Dextrose (Dextrose 50%) 25 ml Q30M PRN IV Hypoglycemia 09/11/18 08:30 10/11/18 08:23 Dextrose (Dextrose 50%) 50 ml Q30M PRN IV hypoglycemia 09/11/18 08:30 10/11/18 08:29 Dextrose/Sodium Chloride 1,000 ml @ 150 mls/hr Q6H40M IV 09/11/18 10:15 10/11/18 10:14 09/11/18 10:55 Heparin Sodium (Porcine) (Heparin 5000 units/ml) 5,000 units EVERY 12 HOURS SUBQ 09/11/18 09:00 10/11/18 08:59 09/11/18 09:52 Levothyroxine Sodium (Synthroid) 50 mcg DAILY IV 09/11/18 11:30 10/11/18 11:29 09/11/18 12:22 Lorazepam (Ativan 2mg/ml 1ml) 2 mg EVERY 2 HOURS PRN IV For Anxiety 09/11/18 07:30 09/18/18 07:29 Mineral Oil (Mineral Oil) 30 ml DAILYPRN PRN ORAL Constipation 09/11/18 10:00 10/11/18 09:59 Morphine Sulfate (Morphine Sulfate) 4 mg EVERY 4 HOURS PRN IVP Severe Pain (Pain Scale 7-10) 09/11/18 07:30 09/18/18 07:29 Ondansetron HCl (Zofran) 4 mg Q6H PRN IVP Nausea & Vomiting 09/11/18 07:30 10/11/18 07:29 Pantoprazole (Protonix) 40 mg DAILY IV 09/11/18 09:00 10/11/18 08:59 09/11/18 09:48 Polyethylene Glycol (Miralax) 17 gm DAILYPRN PRN ORAL Constipation 09/11/18 07:30 10/11/18 07:29 Trazodone HCl (Desyrel) 50 mg BEDTIME PRN GT insomnia 09/11/18 07:30 10/11/18 07:29 Vancomycin/Sodium Chloride 250 ml @ 166.667 mls/hr Q24H IVPB 09/12/18 09:00 09/17/18 08:59 GI: Plan Problems: (1) Malfunction of gastrostomy tube (2) Feeding by G-tube (3) Bowel obstruction (4) Fecal impaction Plan CT AP reviewed >> Fecal impaction within the rectum. normocytic anemia digital disimpaction if medical management fails mineral oil enema and PO x 1 start patient on bowel regime of colace + miralax GTFs per RD to goal GT site care daily / prn anemia work up OB stool r/o GI bleed monitor H&H, prn transfusions bowel regime ppi fu labs Discussed with Dr. Skinner. Thank you for this patient referral, we will follow. Svetlana French NP Sep 11, 2018 14:35
--- NOTE | 2018-09-11 15:34 | Consultation ---
Consult Note Consult Note asked to eval for renal failure 83-year-old female with hx of trach/vent/peg dementia, total care, quadriplegic [facility] with CC of Gtube malfunction. She had a CT scan in ER showing ileus, fecal impaction and infiltrate of the lungs. She is admitted to [facility] for further evaluation. She is in vegetative state and can't give any history. Past Medical History: No History, Except For Hx Cardiac Problems: Yes - Arrythmia Hx Hypertension: Yes Hx COPD: Yes Hx Gastrointestinal Problems: Yes - G-tube Hx Neurological Problems: Yes Hx Cerebrovascular Accident: Yes - Encephalopathy, Qudrplegia Hx Dementia: Yes Hx Seizures: Yes - epilepsy Hx Epilepsy: Yes examined data reviewed non verbal Assessment/Plan Renal failure- Acute on Chronic Acute and chronic respiratory failure Nosocomial pneumonia Fecal impaction / Bowel obstruction Chronic vegetative state Cardiomyopathy Seizure disorder Plan: Slow Hydrate Anemia bryant Urine studies Avoid Nephrotoxics Laxatives Tono Case MD Sep 11, 2018 15:34
[2018-09-11] MEDS: Mineral Oil 30ml ud ORAL PRN (15:36)
[2018-09-11 15:42] VITALS: BP 141/70
[2018-09-11] MEDS: D5NS 1,000 ML IV SCH (15:46)
--- NOTE | 2018-09-11 15:55 | Consultation ---
History of Present Illness General Date patient seen: Sep 11, 2018 Chief Complaint: Malfunctioning Gastric Tube Referring physician: AMY HUMPHRIES / GI Reason for Consultation: ileus Present Illness HPI 83 year old female with multiple medical comorbidities currently admitted for malfunctioning G tube after manipulation at outside facility. In ED had CT scan which demonstrated ileus and fecal impaction. Surgery called to evaluate. Patient seen, chart reviewed, patient examined. CT reviewed. patient unable to respond to commands and comfortable in hospital bed. Allergies: Coded Allergies: ASPIRIN (Verified Allergy, Unknown, 07/07/17) Medication History Scheduled Acetaminophen* (Tylenol Extra Strength*), 1,000 MG ORAL Q6H, (Reported) Albuterol Sulfate* (Albuterol Sulfate Hhn*), 3 ML INH Q6H, (Reported) Ascorbic Acid* (Vitamin C*), 500 MG GT DAILY, (Reported) Cefepime Hcl/D5w (Cefepime-Dextrose 1 Gm/50 Ml), 1 GM IVPB EVERY 12 HOURS Clonazepam* (Klonopin*), 0.5 MG ORAL Q6H, (Reported) Cran/Vitc/Mannose/Inulin/Brom (Uti-Stat Liquid), Unknown Dose GT BID, (Reported) Docusate Sodium* (Colace*), 100 MG GT DAILY, (Reported) Docusate Sodium* (Colace*), 100 MG ORAL DAILY, (Reported) Heparin Sod (Porcine) (Heparin Sodium*), 5,000 UNITS SUBQ EVERY 12 HOURS, ( Reported) Latanoprost* (Xalatan*), 1 DROP BOTH EYES BEDTIME, (Reported) Levothyroxine Sodium* (Synthroid*), 112 MCG ORAL DAILY, (Reported) Memantine Hcl* (Namenda*), 5 MG GT TWICE A DAY, (Reported) Multivitamin Liquid* (Multi-Delyn*), 5 ML GT DAILY, (Reported) Omeprazole (Omeprazole), 20 MG GT DAILY, (Reported) Pantoprazole* (Protonix*), 40 MG ORAL DAILY, (Reported) Scheduled PRN Acetaminophen* (Acetaminophen 325MG Tablet*), 650 MG GT Q4H PRN for Fever/ Headache/Mild Pain, (Reported) Albuterol Sulfate* (Albuterol Sulfate Hhn*), 3 ML INH Q3HR PRN for Shortness of Breath, (Reported) Bisacodyl (Bisacodyl), 10 MG RC PRN PRN for Constipation, (Reported) Lorazepam* (Lorazepam*), 0.5 MG GT Q6HR PRN for For Anxiety, (Reported) Magnesium Hydroxide* (Milk Of Magnesia*), 30 ML GT DAILY PRN for Constipation, ( Reported) Ondansetron* (Zofran*), 4 MG IM Q6H PRN for Nausea & Vomiting, (Reported) Trazodone Hcl* (Desyrel*), 50 MG GT BEDTIME PRN for insomnia, (Reported) Miscellaneous Medications Chlorhexidine Gluconate* (Hibiclens*), Unknown Dose TP, (Reported) Heparin Sodium,Porcine/Ns/Pf (Heparin), 2,000 UNIT IV, (Reported) Patient History Limited by: medical condition History Provided By: Medical Record Healthcare decision maker Naomi Gonzalez Resuscitation status Full Code Advanced Directive on File No Past Medical/Surgical History Past Medical/Surgical History: (1) Chronic respiratory failure (2) Chronic vegetative state (3) Nosocomial pneumonia (4) Fecal impaction (5) ATN (acute tubular necrosis) (6) Hypernatremia (7) Hypotension (8) Anemia (9) Seizure disorder (10) Septic shock (11) HTN (hypertension) (12) Cardiomyopathy (13) Sepsis (14) Acute and chronic respiratory failure (15) Tracheostomy care (16) Bowel obstruction (17) Feeding by G-tube (18) Malfunction of gastrostomy tube Review of Systems ROS Narrative cannot obtain Physical Exam General Appearance: no apparent distress, lethargic Lines, tubes and drains: other HEENT: mucous membranes moist Neck: trach Respiratory/Chest: on vent Cardiovascular/Chest: normal rate Abdomen: soft, distended, other - cannot assess tenderness Extremities: other Skin Exam: warm/dry Neurologic: unresponsiveness Last 24 Hour Vital Signs Date Time Temp Pulse Resp B/P (MAP) Pulse Ox O2 Delivery O2 Flow Rate FiO2 09/11/18 15:42 98.6 80 16 141/70 (93) 100 09/11/18 15:33 35 09/11/18 14:12 Mechanical Ventilator 09/11/18 13:08 91 21 35 09/11/18 12:00 35 09/11/18 12:00 98.2 81 19 143/73 (96) 100 09/11/18 12:00 Mechanical Ventilator 09/11/18 11:53 84 09/11/18 11:28 85 20 35 09/11/18 09:20 78 21 35 09/11/18 08:00 Mechanical Ventilator 09/11/18 08:00 35 09/11/18 07:55 80 09/11/18 07:46 98.8 75 30 112/52 (72) 97 09/11/18 07:45 Mechanical Ventilator 09/11/18 07:30 98.7 77 15 123/62 97 Mechanical Ventilator 40 09/11/18 07:20 81 21 35 09/11/18 07:20 80 16 Mechanical Ventilator 35 09/11/18 04:59 74 15 40 09/11/18 03:21 76 17 40 09/11/18 02:00 40 09/11/18 01:58 78 23 40 09/11/18 01:57 78 17 Mechanical Ventilator 40 09/11/18 01:45 98.7 76 14 153/61 97 Mechanical Ventilator 40 09/11/18 01:26 98.8 76 14 132/64 97 Room Air Intake and Output 09/10/18 09/11/18 19:00 07:00 Intake Total 100 ml Output Total 230 ml Balance -130 ml Intake Other 100 ml Output Urine Total 230 ml Laboratory Tests Test 09/11/18 04:57 White Blood Count 9.8 K/UL (4.8-10.8) Red Blood Count 3.45 M/UL (4.20-5.40) L Hemoglobin 10.2 G/DL (12.0-16.0) L Hematocrit 31.4 % (37.0-47.0) L Mean Corpuscular Volume 91 FL (80-99) Mean Corpuscular Hemoglobin 29.6 PG (27.0-31.0) Mean Corpuscular Hemoglobin Concent 32.5 G/DL (32.0-36.0) Red Cell Distribution Width 13.6 % (11.6-14.8) Platelet Count 345 K/UL (150-450) Mean Platelet Volume 6.0 FL (6.5-10.1) L Neutrophils (%) (Auto) 65.9 % (45.0-75.0) Lymphocytes (%) (Auto) 17.9 % (20.0-45.0) L Monocytes (%) (Auto) 7.2 % (1.0-10.0) Eosinophils (%) (Auto) 8.5 % (0.0-3.0) H Basophils (%) (Auto) 0.5 % (0.0-2.0) Sodium Level 138 MMOL/L (136-145) Potassium Level 4.5 MMOL/L (3.5-5.1) Chloride Level 102 MMOL/L (98-107) Carbon Dioxide Level 27 MMOL/L (21-32) Anion Gap 9 mmol/L (5-15) Blood Urea Nitrogen 57 mg/dL (7-18) H Creatinine 1.7 MG/DL (0.55-1.30) H Estimat Glomerular Filtration Rate mL/min (>60) Glucose Level 108 MG/DL (74-106) H Calcium Level 9.9 MG/DL (8.5-10.1) C-Reactive Protein, Quantitative 8.9 mg/dL (0.00-0.90) H Height (Feet): 5 Height (Inches): 3.00 Weight (Pounds): 136 Medications Current Medications Medications (Trade) Dose Ordered Sig/Torsten Route PRN Reason Start Time Stop Time Status Last Admin Dose Admin Acetaminophen (Tylenol) 650 mg Q4H PRN ORAL FEVER 09/11/18 07:30 10/11/18 07:29 Albuterol/ Ipratropium (Albuterol/ Ipratropium) 3 ml EVERY 4 HOURS PRN HHN Shortness of Breath 09/11/18 07:30 09/16/18 07:29 Dextrose (Dextrose 50%) 25 ml Q30M PRN IV Hypoglycemia 09/11/18 08:30 10/11/18 08:23 Dextrose (Dextrose 50%) 50 ml Q30M PRN IV hypoglycemia 09/11/18 08:30 10/11/18 08:29 Dextrose/Sodium Chloride 1,000 ml @ 75 mls/hr [id number] IV 09/11/18 15:45 10/11/18 15:44 09/11/18 15:46 Docusate Sodium (Colace) 100 mg THREE TIMES A DAY GT 09/11/18 18:00 10/11/18 17:59 Heparin Sodium (Porcine) (Heparin 5000 units/ml) 5,000 units EVERY 12 HOURS SUBQ 09/11/18 09:00 10/11/18 08:59 09/11/18 09:52 Levothyroxine Sodium (Synthroid) 50 mcg DAILY IV 09/11/18 11:30 10/11/18 11:29 09/11/18 12:22 Lorazepam (Ativan 2mg/ml 1ml) 2 mg EVERY 2 HOURS PRN IV For Anxiety 09/11/18 07:30 09/18/18 07:29 Mineral Oil (Fleet's Mineral Oil Enema) 133 ml ONCE RECTAL 09/11/18 16:00 09/11/18 17:00 09/11/18 15:36 Mineral Oil (Mineral Oil) 30 ml DAILYPRN PRN ORAL Constipation 09/11/18 10:00 10/11/18 09:59 09/11/18 15:36 Morphine Sulfate (Morphine Sulfate) 4 mg EVERY 4 HOURS PRN IVP Severe Pain (Pain Scale 7-10) 09/11/18 07:30 09/18/18 07:29 Ondansetron HCl (Zofran) 4 mg Q6H PRN IVP Nausea & Vomiting 09/11/18 07:30 10/11/18 07:29 Pantoprazole (Protonix) 40 mg Q12HR IV 09/11/18 21:00 10/11/18 08:59 Polyethylene Glycol (Miralax) 17 gm BEDTIME ORAL 09/11/18 21:00 10/11/18 20:59 Polyethylene Glycol (Miralax) 17 gm DAILYPRN PRN ORAL Constipation 09/11/18 07:30 10/11/18 07:29 Trazodone HCl (Desyrel) 50 mg BEDTIME PRN GT insomnia 09/11/18 07:30 10/11/18 07:29 Vancomycin/Sodium Chloride 250 ml @ 166.667 mls/hr Q24H IVPB 09/12/18 09:00 09/17/18 08:59 Assessment/Plan Problem List: (1) Ileus Assessment & Plan: 83F with multiple medical comorbidities currently admitted for evaluation of malfunctioning G tube. on CT noted to have ileus and fecal impaction. abdominal exam with mild distention. g tube in place some tympany but soft just received enema CT findings: Fecal impaction within the rectum. Patchy infiltrates at the lung bases. Consider pneumonia. Atherosclerotic disease Gastrostomy Broad-based ventral abdominal wall hernia. Gallstones. -cont with enema now and one this evening -AM KUB -okay for feeds via g tube once cleared by GI -thank you. will follow with recs. ICD Codes: K56.7 - Ileus, unspecified SNOMED: 412150512 (2) Fecal impaction in rectum Assessment & Plan: cont enema for now if not BM soon will manually disimpact ICD Codes: K56.41 - Fecal impaction SNOMED: 76786519 Livan Dean Sep 11, 2018 15:55
--- NOTE | 2018-09-11 16:00 | History and Physical Report ---
DATE OF ADMISSION: 09/11/2018 TIME SEEN: 2 p.m. CONSULTANTS: 1. Sue Yu M.D. 2. Jad Skinner M.D. CHIEF COMPLAINT: Ileus, chronic respiratory failure, trach, vent. BRIEF HISTORY: This is a 83-year-old female from [facility] presented with the above-mentioned diagnosis, admitted to [facility] for further care. Currently, trach, vent, altered, lethargic in bed, nonverbal. REVIEW OF SYSTEMS: Unavailable. PAST MEDICAL HISTORY: Includes chronic respiratory failure, CORTNEY, anemia, seizure, hypertension. PAST SURGICAL HISTORY: Trach and G-tube. MEDICATIONS: Include vancomycin, , levothyroxine, mineral oil, heparin, pantoprazole, terazosin, trazodone, morphine, Zofran, lorazepam. ALLERGIES: Aspirin. SOCIAL HISTORY: Unable to obtain second to the patient's condition. PHYSICAL EXAMINATION: GENERAL: Trach, vent, altered, lethargic in bed, nonverbal. VITAL SIGNS: Temperature 98 degrees, pulse 81, respirations 19, and blood pressure 143/73. CARDIOVASCULAR: No murmurs. LUNGS: Poor exchange. ABDOMEN: Bowel sounds distant. EXTREMITIES: No cyanosis, clubbing, or edema. NEUROLOGIC: The patient is flaccid in bed, not following directions. LABORATORY AND DIAGNOSTIC DATA: Hemoglobin and hematocrit 10 and 31, otherwise CBC is normal. BMP show BUN and creatinine 57 and 1.7, glucose 108 otherwise CBC is normal. ASSESSMENT: 1. Chronic respiratory failure. 2. Trach. 3. Vent. 4. Ileus. 5. Anemia. 6. Hypertension. 7. Renal failure. 8. Hypothyroid. 9. Seizure. PLAN: 1. Vent per Pulmonary. 2. GI followup. 3. NPO. 4. IV fluids. 5. Seizure and blood pressure control. 6. Dietary followup. 7. Nephrology evaluation. Rl White D.O. DR: Ervin JOB#: [id number] CC:
[2018-09-11 17:34] LABS: APPEARANCE,URINE CLOUDY; BILIRUBIN, URINE NEGATIVE (NEGATIVE); COLOR,URINE PALE YELLOW; GLUCOSE, URINE (UA) NEGATIVE (NEGATIVE); KETONES,URINE NEGATIVE (NEGATIVE); LEUKOCYTE ESTERASE ,URINE 3+ (NEGATIVE); NITRITE,URINE NEGATIVE (NEGATIVE); PH,URINE 5 (4.5-8.0); PROTEIN,URINE 1+ (NEGATIVE); UROBILINOGEN,URINE NORMAL MG/DL (0.0-1.0)
[2018-09-11] MEDS: Docusate 100mg/10ml Liq GT SCH (17:40)
--- NOTE | 2018-09-11 18:56 | NUR ---
NURSE NOTES: Patient has an order for occult blood stool, but the patient is not able to have a bowel movement. Patient given mineral oil x 2 during this shift. Patient positioned on side at this time.
--- NOTE | 2018-09-11 19:20 | NUR ---
RESPIRATORY NOTE: Received pt on current vent setting. Moderate yellow thick secretions and will sxn prn. SPO2 100%, HR 73. Alarms are on and audible. Vent is plugged into red outlet. Ambu bag on the bedside. Will continue to monitor pt.
[2018-09-11 20:00] VITALS: BP 154/75
--- NOTE | 2018-09-11 20:04 | NUR ---
HAND-OFF: Report given to RONDA Masterson. Patient VS stable at this time with no sign of acute distress. Patient has not had a bowel movement yet. Endorsed to follow up. Patient has not had occult blood stool collected. Endorsed to follow up. Patient needs SCD on the left leg. R leg is possitive for chronic DVT at this time. Sign placed behind the bed. Endorsed to put SCD on left leg.
--- NOTE | 2018-09-11 20:05 | NUR ---
NURSE NOTES: Received patient from RONDA Bruno. Will continue plan of care.
[2018-09-11] MEDS: Miralax 17gm pkt ORAL SCH (22:46)
[2018-09-11] MEDS: Pantoprazole Inj IV SCH (22:46)
[2018-09-12] VITALS: BP 140/65
[2018-09-12 04:00] VITALS: BP 118/63
[2018-09-12] MEDS: D5NS 1,000 ML IV SCH ×2 (04:55→17:27)
[2018-09-12 05:52] LABS: BASOPHILS % (AUTO) 0.6 % (0.0-2.0); HEMATOCRIT 25.8 % (37.0-47.0); HEMOGLOBIN 8.3 G/DL (12.0-16.0); LYMPHOCYTES % (AUTO) 20.4 % (20.0-45.0); MEAN CORPUSCULAR VOLUME 93 FL (80-99); MONOCYTES % (AUTO) 7.6 % (1.0-10.0); NEUTROPHILS % (AUTO) 57.4 % (45.0-75.0); PLATELET COUNT 310 K/UL (150-450); RED BLOOD COUNT 2.78 M/UL (4.20-5.40); RED CELL DISTRIBUTION WIDTH 12.7 % (11.6-14.8); WHITE BLOOD COUNT 10.6 K/UL (4.8-10.8)
[2018-09-12 06:01] LABS: INR 1.2 (0.9-1.1)
[2018-09-12 06:20] LABS: % IRON SATURATION 20 % (15-50); IRON 43 ug/dL (50-175); TOTAL IRON BINDING CAPACITY 211 ug/dL (250-450)
[2018-09-12 06:41] LABS: CHOLESTEROL 189 MG/DL (< 200); HDL CHOLESTEROL 46 MG/DL (40-60); TRIGLYCERIDES 85 MG/DL (30-150)
[2018-09-12 06:51] LABS: ALANINE AMINOTRANSFERASE 21 U/L (12-78); ALBUMIN/GLOBULIN RATIO 0.5 (1.0-2.7); ALKALINE PHOSPHATASE 111 U/L (46-116); ANION GAP 11 mmol/L (5-15); ASPARTATE AMINO TRANSFERASE 21 U/L (15-37); BILIRUBIN,TOTAL 0.3 MG/DL (0.2-1.0); BLOOD UREA NITROGEN 39 mg/dL (7-18); CALCIUM 9.5 MG/DL (8.5-10.1); CARBON DIOXIDE 26 MMOL/L (21-32); CHLORIDE 108 MMOL/L (98-107); CREATININE 1.4 MG/DL (0.55-1.30); SODIUM 145 MMOL/L (136-145)
[2018-09-12 07:20] LABS: PHOSPHORUS 2.7 MG/DL (2.5-4.9)
[2018-09-12 07:24] LABS: CREATINE KINASE 116 U/L (26-308); GAMMA GLUTAMYL TRANSPEPTIDASE 15 U/L (5-85)
--- NOTE | 2018-09-12 07:35 | NUR ---
HAND-OFF: Report given to Shoshana Soliman RN.
--- NOTE | 2018-09-12 07:38 | NUR ---
NURSE NOTES: Report received from Aleja Gutiérrez RN.Pt resting quietlyin bed noted no resp distress with trach tube to vent on current settings,tolerating well, no signs of pain or discomfort SR on the monitor,Pt with clamp GT,NPO at this time,with Purewick,draining yellow urine.skin warm and dry,IV sites x2 LAC and RH ,with IVF D5NS at 75 ml/hrSR up x2 HOB elevated,bed lock in lowest position,will continue with plan of care.,
--- NOTE | 2018-09-12 07:40 | NUR ---
NURSE NOTES: Report received from Aleja Gutiérrez RN. pt awake,alert sitting up on bed eating breakfast,noted no resp distress,on 3L NC,denies any c/o pain or discomfort SR on the monitor,skin warm and dry,IV siters x2 RH and LH both sites intact,SR up x2 HOB elevated bed lock in lowest position,caregiver at bedside,will continue with plans of care. Addendum: 09/12/18 at 1611 by FÁTMIA RODRIGUEZ RN documentation on wrong pt.
[2018-09-12 08:00] VITALS: BP 133/103
[2018-09-12] MEDS ORDERED: Vancomycin 750mg/NS 250ml IVPB SCH (09:00)
[2018-09-12] MEDS: Docusate 100mg/10ml Liq GT SCH ×3 (09:59→17:27)
[2018-09-12] MEDS: Pantoprazole Inj IV SCH ×2 (09:59→20:36)
[2018-09-12] MEDS: Heparin 5000 units/ml inj SUBQ SCH ×2 (10:02→20:37)
--- NOTE | 2018-09-12 10:30 | General Surgery Progress Note ---
General Surgery-Progress Note Subjective Additional Comments no acute events. abd soft. Objective Last 24 Hour Vital Signs Date Time Temp Pulse Resp B/P (MAP) Pulse Ox O2 Delivery O2 Flow Rate FiO2 09/12/18 09:26 72 20 35 09/12/18 07:00 75 19 35 09/12/18 05:10 67 17 35 09/12/18 04:00 Mechanical Ventilator 09/12/18 04:00 98.8 81 20 118/63 (81) 100 09/12/18 04:00 35 09/12/18 03:21 76 09/12/18 02:44 88 26 35 09/12/18 01:18 67 12 35 09/12/18 00:00 35 09/12/18 00:00 Mechanical Ventilator 09/12/18 00:00 98.9 68 20 140/65 (90) 100 09/11/18 23:38 70 09/11/18 22:48 88 20 35 09/11/18 21:18 68 17 35 09/11/18 20:01 75 09/11/18 20:00 98.8 81 20 154/75 (101) 100 09/11/18 20:00 35 09/11/18 20:00 Mechanical Ventilator 09/11/18 19:13 81 17 35 09/11/18 17:15 87 20 35 09/11/18 16:00 Mechanical Ventilator 09/11/18 16:00 35 09/11/18 15:49 80 17 35 09/11/18 15:42 98.6 80 16 141/70 (93) 100 09/11/18 15:41 80 09/11/18 15:33 35 09/11/18 14:12 Mechanical Ventilator 09/11/18 13:08 91 21 35 09/11/18 12:00 35 09/11/18 12:00 98.2 81 19 143/73 (96) 100 09/11/18 12:00 Mechanical Ventilator 09/11/18 11:53 84 09/11/18 11:28 85 20 35 I&O Intake and Output 09/11/18 09/12/18 18:59 06:59 Intake Total 1375.0 ml 156.25 ml Output Total 375 ml 400 ml Balance 1000.0 ml -243.75 ml Intake Free Water 50 ml IV Total 1325.0 ml 156.25 ml Output Urine Total 375 ml 400 ml # Voids 2 Dressing: other Wound: other Drains: other Cardiovascular: RSR Respiratory: decreased breath sounds Abdomen: soft, distended, present bowel sounds Extremities: no tenderness, no cyanosis Laboratory Tests Test 09/11/18 17:15 09/12/18 03:00 Urine Color Pale yellow Urine Appearance Cloudy Urine pH 5 (4.5-8.0) Urine Specific [place] 1.010 (1.005-1.035) Urine Protein 1+ (NEGATIVE) H Urine Glucose (UA) Negative (NEGATIVE) Urine Ketones Negative (NEGATIVE) Urine Blood 2+ (NEGATIVE) H Urine Nitrite Negative (NEGATIVE) Urine Bilirubin Negative (NEGATIVE) Urine Urobilinogen Normal MG/DL (0.0-1.0) Urine Leukocyte Esterase 3+ (NEGATIVE) H Urine RBC 2-4 /HPF (0 - 2) H Urine WBC 5-10 /HPF (0 - 2) H Urine Squamous Epithelial Cells Occasional /LPF Urine Bacteria Few /HPF (NONE) Urine Random Sodium 20 mmol/L (20-110) White Blood Count 10.6 K/UL (4.8-10.8) Red Blood Count 2.78 M/UL (4.20-5.40) L Hemoglobin 8.3 G/DL (12.0-16.0) L Hematocrit 25.8 % (37.0-47.0) L Mean Corpuscular Volume 93 FL (80-99) Mean Corpuscular Hemoglobin 29.7 PG (27.0-31.0) Mean Corpuscular Hemoglobin Concent 32.1 G/DL (32.0-36.0) Red Cell Distribution Width 12.7 % (11.6-14.8) Platelet Count 310 K/UL (150-450) Mean Platelet Volume 5.8 FL (6.5-10.1) L Neutrophils (%) (Auto) 57.4 % (45.0-75.0) Lymphocytes (%) (Auto) 20.4 % (20.0-45.0) Monocytes (%) (Auto) 7.6 % (1.0-10.0) Eosinophils (%) (Auto) 14.0 % (0.0-3.0) H Basophils (%) (Auto) 0.6 % (0.0-2.0) Reticulocyte Count 1.0 % (0.0-2.0) Prothrombin Time 12.1 SEC (9.30-11.50) H Prothromb Time International Ratio 1.2 (0.9-1.1) H Activated Partial Thromboplast Time 27 SEC (23-33) Sodium Level 145 MMOL/L (136-145) Potassium Level 4.0 MMOL/L (3.5-5.1) Chloride Level 108 MMOL/L (98-107) H Carbon Dioxide Level 26 MMOL/L (21-32) Anion Gap 11 mmol/L (5-15) Blood Urea Nitrogen 39 mg/dL (7-18) H Creatinine 1.4 MG/DL (0.55-1.30) H Estimat Glomerular Filtration Rate mL/min (>60) Glucose Level 114 MG/DL (74-106) H Hemoglobin A1c 5.7 % (4.3-6.0) Uric Acid 6.7 MG/DL (2.6-7.2) Calcium Level 9.5 MG/DL (8.5-10.1) Phosphorus Level 2.7 MG/DL (2.5-4.9) Magnesium Level 2.5 MG/DL (1.8-2.4) H Iron Level 43 ug/dL (50-175) L Total Iron Binding Capacity 211 ug/dL (250-450) L Percent Iron Saturation 20 % (15-50) Unsaturated Iron Binding 168 ug/dL (112-346) Ferritin 547 NG/ML (8-388) H Total Bilirubin 0.3 MG/DL (0.2-1.0) Gamma Glutamyl Transpeptidase 15 U/L (5-85) Aspartate Amino Transf (AST/SGOT) 21 U/L (15-37) Alanine Aminotransferase (ALT/SGPT) 21 U/L (12-78) Alkaline Phosphatase 111 U/L (46-116) Total Creatine Kinase 116 U/L (26-308) Troponin I 0.009 ng/mL (0.000-0.056) Total Protein 8.5 G/DL (6.4-8.2) H Albumin 3.0 G/DL (3.4-5.0) L Globulin 5.5 g/dL Albumin/Globulin Ratio 0.5 (1.0-2.7) L Triglycerides Level 85 MG/DL (30-150) Cholesterol Level 189 MG/DL (< 200) LDL Cholesterol 132 mg/dL (<100) H HDL Cholesterol 46 MG/DL (40-60) Cholesterol/HDL Ratio 4.1 (3.3-4.4) Carcinoembryonic Antigen Pending Vitamin B12 Level 1902 PG/ML (193-986) H Folate 94.8 NG/ML (8.6-58.9) H Thyroid Stimulating Hormone (TSH) 0.986 uiU/mL (0.358-3.740) Free Thyroxine 1.59 NG/DL (0.76-1.46) H Plan Problems: (1) Ileus Assessment & Plan: 83F with multiple medical comorbidities currently admitted for evaluation of malfunctioning G tube. on CT noted to have ileus and fecal impaction. abdominal exam with mild distention. g tube in place some tympany but soft just received enema CT findings: Fecal impaction within the rectum. Patchy infiltrates at the lung bases. Consider pneumonia. Atherosclerotic disease Gastrostomy Broad-based ventral abdominal wall hernia. Gallstones. had enema with loose stool -AM KUB - pending -okay for feeds via g tube once cleared by GI -thank you. will follow with recs. (2) Fecal impaction in rectum Assessment & Plan: cont enema for now if not BM soon will manually disimpact Livan Dean Sep 12, 2018 10:30
--- NOTE | 2018-09-12 10:58 | Diagnostic Imaging Report ---
Indication: Abdominal pain Comparison: 09/11/2018 Single view of the abdomen obtained Findings: There is moderate retention of stool within the rectal vault which is distended. There is contrast within the colon. There is a gastrostomy tube projected over the upper abdomen. Smith catheter noted. Surgical clips demonstrated in the abdomen. IMPRESSION: Moderate fecal retention. No significant change
--- NOTE | 2018-09-12 11:42 | Infectious Diseases Prog Note ---
Assessment/Plan Assessment/Plan Abx: IV Vancomycin 09/11- Assessment: GT malfunction -CT abd/p: Fecal impaction within the rectum. Patchy infiltrates at the lung bases. Consider pneumonia. Atherosclerotic disease. Gastrostomy. Broad-based ventral abdominal wall hernia. Gallstones. Doubt PNA-no increase in vent settings and minimal secretions Afebrile No leukocytosis JAMES, improving Hx of recurrent PNA (VAP/HAP) -10/2017 MDR PSA, H. flu -sp cx MDR ACB 07/2017, s/p Rx Hypertension. History of seizure disorder Ventilator-dependent respiratory failure History of lower extremity DVT History of PEG and trach placement dementia quadriplegic COPD senior living resident Plan: -Continue to monitor off abx at this time -if febrile, leukocytosis, increased in vent settings/secretions/infiltrates will resume IV Vancomycin and add Zosyn. -09/11 SP IV Vancomycin #1 -f/u cx -Monitor CBC/CMP, temperatures -trach/peg care -aspiration precautions -GI f.u Thank you for this consultation. Will continue to follow along with you. Discussed with RN Subjective Allergies: Coded Allergies: ASPIRIN (Verified Allergy, Unknown, 07/07/17) Subjective afebrle no leukocytosuis Cr improving Objective Vital Signs Last 24 Hour Vital Signs Date Time Temp Pulse Resp B/P (MAP) Pulse Ox O2 Delivery O2 Flow Rate FiO2 09/12/18 10:45 80 19 35 09/12/18 09:26 72 20 35 09/12/18 08:00 98.9 68 12 133/103 (113) 100 09/12/18 08:00 Mechanical Ventilator 09/12/18 08:00 67 09/12/18 08:00 35 09/12/18 07:00 75 19 35 09/12/18 05:10 67 17 35 09/12/18 04:00 Mechanical Ventilator 09/12/18 04:00 98.8 81 20 118/63 (81) 100 09/12/18 04:00 35 09/12/18 03:21 76 09/12/18 02:44 88 26 35 09/12/18 01:18 67 12 35 09/12/18 00:00 35 09/12/18 00:00 Mechanical Ventilator 09/12/18 00:00 98.9 68 20 140/65 (90) 100 09/11/18 23:38 70 09/11/18 22:48 88 20 35 09/11/18 21:18 68 17 35 09/11/18 20:01 75 09/11/18 20:00 98.8 81 20 154/75 (101) 100 09/11/18 20:00 35 09/11/18 20:00 Mechanical Ventilator 09/11/18 19:13 81 17 35 09/11/18 17:15 87 20 35 09/11/18 16:00 Mechanical Ventilator 09/11/18 16:00 35 09/11/18 15:49 80 17 35 09/11/18 15:42 98.6 80 16 141/70 (93) 100 09/11/18 15:41 80 09/11/18 15:33 35 09/11/18 14:12 Mechanical Ventilator 09/11/18 13:08 91 21 35 09/11/18 12:00 35 09/11/18 12:00 98.2 81 19 143/73 (96) 100 09/11/18 12:00 Mechanical Ventilator 09/11/18 11:53 84 Height (Feet): 5 Height (Inches): 3.00 Weight (Pounds): 135 Objective General Appearance: WD/WN, no apparent distress Lines, tubes and drains: peripheral HEENT: normocephalic, atraumatic Neck: non-tender, normal alignment Respiratory/Chest: chest wall non-tender, lungs clear, decreased breath sounds Cardiovascular/Chest: normal peripheral pulses Abdomen: normal bowel sounds, non tender Neurologic: sleeve turner II-XII grossly normal Laboratory Tests Test 09/11/18 17:15 09/12/18 03:00 Urine Color Pale yellow Urine Appearance Cloudy Urine pH 5 (4.5-8.0) Urine Specific [place] 1.010 (1.005-1.035) Urine Protein 1+ (NEGATIVE) H Urine Glucose (UA) Negative (NEGATIVE) Urine Ketones Negative (NEGATIVE) Urine Blood 2+ (NEGATIVE) H Urine Nitrite Negative (NEGATIVE) Urine Bilirubin Negative (NEGATIVE) Urine Urobilinogen Normal MG/DL (0.0-1.0) Urine Leukocyte Esterase 3+ (NEGATIVE) H Urine RBC 2-4 /HPF (0 - 2) H Urine WBC 5-10 /HPF (0 - 2) H Urine Squamous Epithelial Cells Occasional /LPF Urine Bacteria Few /HPF (NONE) Urine Random Sodium 20 mmol/L (20-110) White Blood Count 10.6 K/UL (4.8-10.8) Red Blood Count 2.78 M/UL (4.20-5.40) L Hemoglobin 8.3 G/DL (12.0-16.0) L Hematocrit 25.8 % (37.0-47.0) L Mean Corpuscular Volume 93 FL (80-99) Mean Corpuscular Hemoglobin 29.7 PG (27.0-31.0) Mean Corpuscular Hemoglobin Concent 32.1 G/DL (32.0-36.0) Red Cell Distribution Width 12.7 % (11.6-14.8) Platelet Count 310 K/UL (150-450) Mean Platelet Volume 5.8 FL (6.5-10.1) L Neutrophils (%) (Auto) 57.4 % (45.0-75.0) Lymphocytes (%) (Auto) 20.4 % (20.0-45.0) Monocytes (%) (Auto) 7.6 % (1.0-10.0) Eosinophils (%) (Auto) 14.0 % (0.0-3.0) H Basophils (%) (Auto) 0.6 % (0.0-2.0) Reticulocyte Count 1.0 % (0.0-2.0) Prothrombin Time 12.1 SEC (9.30-11.50) H Prothromb Time International Ratio 1.2 (0.9-1.1) H Activated Partial Thromboplast Time 27 SEC (23-33) Sodium Level 145 MMOL/L (136-145) Potassium Level 4.0 MMOL/L (3.5-5.1) Chloride Level 108 MMOL/L (98-107) H Carbon Dioxide Level 26 MMOL/L (21-32) Anion Gap 11 mmol/L (5-15) Blood Urea Nitrogen 39 mg/dL (7-18) H Creatinine 1.4 MG/DL (0.55-1.30) H Estimat Glomerular Filtration Rate mL/min (>60) Glucose Level 114 MG/DL (74-106) H Hemoglobin A1c 5.7 % (4.3-6.0) Uric Acid 6.7 MG/DL (2.6-7.2) Calcium Level 9.5 MG/DL (8.5-10.1) Phosphorus Level 2.7 MG/DL (2.5-4.9) Magnesium Level 2.5 MG/DL (1.8-2.4) H Iron Level 43 ug/dL (50-175) L Total Iron Binding Capacity 211 ug/dL (250-450) L Percent Iron Saturation 20 % (15-50) Unsaturated Iron Binding 168 ug/dL (112-346) Ferritin 547 NG/ML (8-388) H Total Bilirubin 0.3 MG/DL (0.2-1.0) Gamma Glutamyl Transpeptidase 15 U/L (5-85) Aspartate Amino Transf (AST/SGOT) 21 U/L (15-37) Alanine Aminotransferase (ALT/SGPT) 21 U/L (12-78) Alkaline Phosphatase 111 U/L (46-116) Total Creatine Kinase 116 U/L (26-308) Troponin I 0.009 ng/mL (0.000-0.056) Total Protein 8.5 G/DL (6.4-8.2) H Albumin 3.0 G/DL (3.4-5.0) L Globulin 5.5 g/dL Albumin/Globulin Ratio 0.5 (1.0-2.7) L Triglycerides Level 85 MG/DL (30-150) Cholesterol Level 189 MG/DL (< 200) LDL Cholesterol 132 mg/dL (<100) H HDL Cholesterol 46 MG/DL (40-60) Cholesterol/HDL Ratio 4.1 (3.3-4.4) Carcinoembryonic Antigen Pending Vitamin B12 Level 1902 PG/ML (193-986) H Folate 94.8 NG/ML (8.6-58.9) H Thyroid Stimulating Hormone (TSH) 0.986 uiU/mL (0.358-3.740) Free Thyroxine 1.59 NG/DL (0.76-1.46) H Current Medications Medications (Trade) Dose Ordered Sig/Torsten Route PRN Reason Start Time Stop Time Status Last Admin Dose Admin Acetaminophen (Tylenol) 650 mg Q4H PRN ORAL FEVER 09/11/18 07:30 10/11/18 07:29 Albuterol/ Ipratropium (Albuterol/ Ipratropium) 3 ml EVERY 4 HOURS PRN HHN Shortness of Breath 09/11/18 07:30 09/16/18 07:29 Dextrose (Dextrose 50%) 25 ml Q30M PRN IV Hypoglycemia 09/11/18 08:30 10/11/18 08:23 Dextrose (Dextrose 50%) 50 ml Q30M PRN IV hypoglycemia 09/11/18 08:30 10/11/18 08:29 Dextrose/Sodium Chloride 1,000 ml @ 75 mls/hr [id number] IV 09/11/18 15:45 10/11/18 15:44 09/12/18 04:55 Docusate Sodium (Colace) 100 mg THREE TIMES A DAY GT 09/11/18 18:00 10/11/18 17:59 09/12/18 09:59 Heparin Sodium (Porcine) (Heparin 5000 units/ml) 5,000 units EVERY 12 HOURS SUBQ 09/11/18 09:00 10/11/18 08:59 09/12/18 10:02 Lorazepam (Ativan 2mg/ml 1ml) 2 mg EVERY 2 HOURS PRN IV For Anxiety 09/11/18 07:30 09/18/18 07:29 09/12/18 02:55 Mineral Oil (Mineral Oil) 30 ml DAILYPRN PRN ORAL Constipation 09/11/18 10:00 10/11/18 09:59 09/11/18 15:36 Morphine Sulfate (Morphine Sulfate) 4 mg EVERY 4 HOURS PRN IVP Severe Pain (Pain Scale 7-10) 09/11/18 07:30 09/18/18 07:29 Ondansetron HCl (Zofran) 4 mg Q6H PRN IVP Nausea & Vomiting 09/11/18 07:30 10/11/18 07:29 Pantoprazole (Protonix) 40 mg Q12HR IV 09/11/18 21:00 10/11/18 08:59 09/12/18 09:59 Polyethylene Glycol (Miralax) 17 gm BEDTIME ORAL 09/11/18 21:00 10/11/18 20:59 09/11/18 22:46 Polyethylene Glycol (Miralax) 17 gm DAILYPRN PRN ORAL Constipation 09/11/18 07:30 10/11/18 07:29 Trazodone HCl (Desyrel) 50 mg BEDTIME PRN GT insomnia 09/11/18 07:30 10/11/18 07:29 Yane Umana M.D. Sep 12, 2018 11:42
[2018-09-12 12:00] VITALS: BP 140/67
[2018-09-12] MEDS ORDERED: Mineral Oil 30ml ud ORAL PRN (12:00)
[2018-09-12] MEDS: Mineral Oil 30ml ud ORAL PRN (12:17)
--- NOTE | 2018-09-12 12:18 | Nephrology Progress Note ---
Assessment/Plan Problem List: (1) Chronic respiratory failure (2) Fecal impaction (3) Anemia (4) Cardiomyopathy (5) Acute on chronic renal failure Assessment Renal failure- Acute on Chronic Acute and chronic respiratory failure Nosocomial pneumonia Fecal impaction / Bowel obstruction Chronic vegetative state Cardiomyopathy Seizure disorder Plan Plan: Slow Hydrate Anemia bryant Urine studies Avoid Nephrotoxics Laxatives Per ID Subjective ROS Limited/Unobtainable: Yes Objective Objective Last 24 Hour Vital Signs Date Time Temp Pulse Resp B/P (MAP) Pulse Ox O2 Delivery O2 Flow Rate FiO2 09/12/18 12:06 Mechanical Ventilator 09/12/18 12:05 35 09/12/18 10:45 80 19 35 09/12/18 09:26 72 20 35 09/12/18 08:00 98.9 68 12 133/103 (113) 100 09/12/18 08:00 Mechanical Ventilator 09/12/18 08:00 67 09/12/18 08:00 35 09/12/18 07:00 75 19 35 09/12/18 05:10 67 17 35 09/12/18 04:00 Mechanical Ventilator 09/12/18 04:00 98.8 81 20 118/63 (81) 100 09/12/18 04:00 35 09/12/18 03:21 76 09/12/18 02:44 88 26 35 09/12/18 01:18 67 12 35 09/12/18 00:00 35 09/12/18 00:00 Mechanical Ventilator 09/12/18 00:00 98.9 68 20 140/65 (90) 100 09/11/18 23:38 70 09/11/18 22:48 88 20 35 09/11/18 21:18 68 17 35 09/11/18 20:01 75 09/11/18 20:00 98.8 81 20 154/75 (101) 100 09/11/18 20:00 35 09/11/18 20:00 Mechanical Ventilator 09/11/18 19:13 81 17 35 09/11/18 17:15 87 20 35 09/11/18 16:00 Mechanical Ventilator 09/11/18 16:00 35 09/11/18 15:49 80 17 35 09/11/18 15:42 98.6 80 16 141/70 (93) 100 09/11/18 15:41 80 09/11/18 15:33 35 09/11/18 14:12 Mechanical Ventilator 09/11/18 13:08 91 21 35 Intake and Output 09/11/18 09/12/18 19:00 07:00 Intake Total 1450.0 ml 156.25 ml Output Total 375 ml 400 ml Balance 1075.0 ml -243.75 ml Intake Free Water 50 ml IV Total 1400.0 ml 156.25 ml Output Urine Total 375 ml 400 ml # Voids 2 Laboratory Tests 09/11/18 17:15: Urine Color Pale yellow, Urine Appearance Cloudy, Urine pH 5, Urine Specific [place] 1.010, Urine Protein 1+H, Urine Glucose (UA) Negative, Urine Ketones Negative, Urine Blood 2+H, Urine Nitrite Negative, Urine Bilirubin Negative, Urine Urobilinogen Normal, Urine Leukocyte Esterase 3+H, Urine RBC 2-4H, Urine WBC 5-10H, Urine Squamous Epithelial Cells Occasional, Urine Bacteria Few, Urine Random Sodium 20 09/12/18 03:00: White Blood Count 10.6, Red Blood Count 2.78L, Hemoglobin 8.3L, Hematocrit 25.8L , Mean Corpuscular Volume 93, Mean Corpuscular Hemoglobin 29.7, Mean Corpuscular Hemoglobin Concent 32.1, Red Cell Distribution Width 12.7, Platelet Count 310, Mean Platelet Volume 5.8L, Neutrophils (%) (Auto) 57.4, Lymphocytes ( %) (Auto) 20.4, Monocytes (%) (Auto) 7.6, Eosinophils (%) (Auto) 14.0H, Basophils (%) (Auto) 0.6, Reticulocyte Count 1.0, Prothrombin Time 12.1H, Prothromb Time International Ratio 1.2H, Activated Partial Thromboplast Time 27 , Sodium Level 145, Potassium Level 4.0, Chloride Level 108H, Carbon Dioxide Level 26, Anion Gap 11, Blood Urea Nitrogen 39H, Creatinine 1.4H, Estimat Glomerular Filtration Rate , Glucose Level 114H, Hemoglobin A1c 5.7, Uric Acid 6.7, Calcium Level 9.5, Phosphorus Level 2.7, Magnesium Level 2.5H, Iron Level 43L, Total Iron Binding Capacity 211L, Percent Iron Saturation 20, Unsaturated Iron Binding 168, Ferritin 547H, Total Bilirubin 0.3, Gamma Glutamyl Transpeptidase 15, Aspartate Amino Transf (AST/SGOT) 21, Alanine Aminotransferase (ALT/SGPT) 21, Alkaline Phosphatase 111, Total Creatine Kinase 116, Troponin I 0.009, Total Protein 8.5H, Albumin 3.0L, Globulin 5.5, Albumin/ Globulin Ratio 0.5L, Triglycerides Level 85, Cholesterol Level 189, LDL Cholesterol 132H, HDL Cholesterol 46, Cholesterol/HDL Ratio 4.1, Carcinoembryonic Antigen [Pending], Vitamin B12 Level 1902H, Folate 94.8H, Thyroid Stimulating Hormone (TSH) 0.986, Free Thyroxine 1.59H Height (Feet): 5 Height (Inches): 3.00 Weight (Pounds): 135 Cardiovascular: normal rate Respiratory/Chest: decreased breath sounds Abdomen: soft Objective no change Tono Case MD Sep 12, 2018 12:18
--- NOTE | 2018-09-12 12:20 | NUR ---
NURSE NOTES: Mineral oil given per order of Gillian Galvan MEDIA RELATIONS SPECIALIST, but no results,no BM noted.will continue to monitor pt.
--- NOTE | 2018-09-12 12:20 | NUR ---
RADIOLOGY DEPT ABDOMEN X-RAY PERFORMED.-P.DYE
--- NOTE | 2018-09-12 13:10 | GI Progress Note ---
Assessment/Plan Problems: (1) Ileus ICD Codes: K56.7 - Ileus, unspecified SNOMED: 156126577 (2) Fecal impaction in rectum ICD Codes: K56.41 - Fecal impaction SNOMED: 35697981 (3) Feeding by G-tube ICD Codes: Z93.1 - Gastrostomy status SNOMED: 111857623, 741187687 (4) Malfunction of gastrostomy tube ICD Codes: K94.23 - Gastrostomy malfunction SNOMED: 037017758 (5) Bowel obstruction ICD Codes: K56.609 - Unspecified intestinal obstruction, unspecified as to partial versus complete obstruction SNOMED: 29347027 (6) Anemia ICD Codes: D64.9 - Anemia, unspecified SNOMED: 669465151 Status: unchanged Status Narrative Discussed with Dr. Skinner Assessment/Plan CT AP reviewed >> Fecal impaction within the rectum. normocytic anemia digital disimpaction if medical management fails mineral oil enema prn bowel regime of colace + miralax GTFs per RD to goal GT site care daily / prn anemia work up OB stool r/o GI bleed monitor H&H, prn transfusions bowel regime ppi fu labs The patient was seen and examined at bedside and all new and available data was reviewed in the patients chart. I agree with the above findings, impression and plan. (Patient seen earlier today. Signature stamp does not reflect patient encounter time.). - Jad Skinner MD Subjective Subjective Limited Objective Last 24 Hour Vital Signs Date Time Temp Pulse Resp B/P (MAP) Pulse Ox O2 Delivery O2 Flow Rate FiO2 09/12/18 12:06 Mechanical Ventilator 09/12/18 12:05 35 09/12/18 10:45 80 19 35 09/12/18 09:26 72 20 35 09/12/18 08:00 98.9 68 12 133/103 (113) 100 09/12/18 08:00 Mechanical Ventilator 09/12/18 08:00 67 09/12/18 08:00 35 09/12/18 07:00 75 19 35 09/12/18 05:10 67 17 35 09/12/18 04:00 Mechanical Ventilator 09/12/18 04:00 98.8 81 20 118/63 (81) 100 09/12/18 04:00 35 09/12/18 03:21 76 09/12/18 02:44 88 26 35 09/12/18 01:18 67 12 35 09/12/18 00:00 35 09/12/18 00:00 Mechanical Ventilator 09/12/18 00:00 98.9 68 20 140/65 (90) 100 09/11/18 23:38 70 09/11/18 22:48 88 20 35 09/11/18 21:18 68 17 35 09/11/18 20:01 75 09/11/18 20:00 98.8 81 20 154/75 (101) 100 09/11/18 20:00 35 09/11/18 20:00 Mechanical Ventilator 09/11/18 19:13 81 17 35 09/11/18 17:15 87 20 35 09/11/18 16:00 Mechanical Ventilator 09/11/18 16:00 35 09/11/18 15:49 80 17 35 09/11/18 15:42 98.6 80 16 141/70 (93) 100 09/11/18 15:41 80 09/11/18 15:33 35 09/11/18 14:12 Mechanical Ventilator Intake and Output 09/11/18 09/12/18 19:00 07:00 Intake Total 1450.0 ml 156.25 ml Output Total 375 ml 400 ml Balance 1075.0 ml -243.75 ml Intake Free Water 50 ml IV Total 1400.0 ml 156.25 ml Output Urine Total 375 ml 400 ml # Voids 2 Laboratory Tests Test 09/11/18 17:15 09/12/18 03:00 Urine Color Pale yellow Urine Appearance Cloudy Urine pH 5 (4.5-8.0) Urine Specific [place] 1.010 (1.005-1.035) Urine Protein 1+ (NEGATIVE) H Urine Glucose (UA) Negative (NEGATIVE) Urine Ketones Negative (NEGATIVE) Urine Blood 2+ (NEGATIVE) H Urine Nitrite Negative (NEGATIVE) Urine Bilirubin Negative (NEGATIVE) Urine Urobilinogen Normal MG/DL (0.0-1.0) Urine Leukocyte Esterase 3+ (NEGATIVE) H Urine RBC 2-4 /HPF (0 - 2) H Urine WBC 5-10 /HPF (0 - 2) H Urine Squamous Epithelial Cells Occasional /LPF Urine Bacteria Few /HPF (NONE) Urine Random Sodium 20 mmol/L (20-110) White Blood Count 10.6 K/UL (4.8-10.8) Red Blood Count 2.78 M/UL (4.20-5.40) L Hemoglobin 8.3 G/DL (12.0-16.0) L Hematocrit 25.8 % (37.0-47.0) L Mean Corpuscular Volume 93 FL (80-99) Mean Corpuscular Hemoglobin 29.7 PG (27.0-31.0) Mean Corpuscular Hemoglobin Concent 32.1 G/DL (32.0-36.0) Red Cell Distribution Width 12.7 % (11.6-14.8) Platelet Count 310 K/UL (150-450) Mean Platelet Volume 5.8 FL (6.5-10.1) L Neutrophils (%) (Auto) 57.4 % (45.0-75.0) Lymphocytes (%) (Auto) 20.4 % (20.0-45.0) Monocytes (%) (Auto) 7.6 % (1.0-10.0) Eosinophils (%) (Auto) 14.0 % (0.0-3.0) H Basophils (%) (Auto) 0.6 % (0.0-2.0) Reticulocyte Count 1.0 % (0.0-2.0) Prothrombin Time 12.1 SEC (9.30-11.50) H Prothromb Time International Ratio 1.2 (0.9-1.1) H Activated Partial Thromboplast Time 27 SEC (23-33) Sodium Level 145 MMOL/L (136-145) Potassium Level 4.0 MMOL/L (3.5-5.1) Chloride Level 108 MMOL/L (98-107) H Carbon Dioxide Level 26 MMOL/L (21-32) Anion Gap 11 mmol/L (5-15) Blood Urea Nitrogen 39 mg/dL (7-18) H Creatinine 1.4 MG/DL (0.55-1.30) H Estimat Glomerular Filtration Rate mL/min (>60) Glucose Level 114 MG/DL (74-106) H Hemoglobin A1c 5.7 % (4.3-6.0) Uric Acid 6.7 MG/DL (2.6-7.2) Calcium Level 9.5 MG/DL (8.5-10.1) Phosphorus Level 2.7 MG/DL (2.5-4.9) Magnesium Level 2.5 MG/DL (1.8-2.4) H Iron Level 43 ug/dL (50-175) L Total Iron Binding Capacity 211 ug/dL (250-450) L Percent Iron Saturation 20 % (15-50) Unsaturated Iron Binding 168 ug/dL (112-346) Ferritin 547 NG/ML (8-388) H Total Bilirubin 0.3 MG/DL (0.2-1.0) Gamma Glutamyl Transpeptidase 15 U/L (5-85) Aspartate Amino Transf (AST/SGOT) 21 U/L (15-37) Alanine Aminotransferase (ALT/SGPT) 21 U/L (12-78) Alkaline Phosphatase 111 U/L (46-116) Total Creatine Kinase 116 U/L (26-308) Troponin I 0.009 ng/mL (0.000-0.056) Total Protein 8.5 G/DL (6.4-8.2) H Albumin 3.0 G/DL (3.4-5.0) L Globulin 5.5 g/dL Albumin/Globulin Ratio 0.5 (1.0-2.7) L Triglycerides Level 85 MG/DL (30-150) Cholesterol Level 189 MG/DL (< 200) LDL Cholesterol 132 mg/dL (<100) H HDL Cholesterol 46 MG/DL (40-60) Cholesterol/HDL Ratio 4.1 (3.3-4.4) Carcinoembryonic Antigen Pending Vitamin B12 Level 1902 PG/ML (193-986) H Folate 94.8 NG/ML (8.6-58.9) H Thyroid Stimulating Hormone (TSH) 0.986 uiU/mL (0.358-3.740) Free Thyroxine 1.59 NG/DL (0.76-1.46) H Height (Feet): 5 Height (Inches): 3.00 Weight (Pounds): 135 General Appearance: no apparent distress Cardiovascular: normal rate Respiratory/Chest: other - Mechanical ventilator Abdominal Exam: GT site - Clean dry and intact, other - Abdomen is soft, nondistended Svetlana French NP Sep 12, 2018 13:10
--- NOTE | 2018-09-12 13:33 | NUR ---
CASE MANAGEMENT: REVIEW 83/F BIBA FROM [facility] CC: MALFUNCTIONING GASTRIC TUBE SI: ILEUS . FECAL IMPACTION . MALFUNCTIONING GASTRIC TUBE T 98.8 HR 76 RR 14 BP 153/61 SAT 97% MECH VENT FIO2 40 H/H 10.2/31.4 MAG 2.5 IS: FLEET'S MINERAL OIL ENEMA RECTAL X1 VANCO IV X1 INTERQUAL CRITERIA MET: PATIENT ADMITTED TO STEP DOWN UNIT 09/11/2018 DCP: PATIENT IS FROM [facility]
--- NOTE | 2018-09-12 13:35 | Pulmonolgy Critical Care Note ---
Critical Care - Asmt/Plan Problems: (1) Acute and chronic respiratory failure (2) Anemia (3) Seizure disorder (4) Cardiomyopathy (5) Feeding by G-tube (6) Chronic vegetative state Respiratory: monitor respiratory rate, adjust FIO2 Cardiac: continue to monitor HR/BP Renal: F/U I&O, keep IV fluid Infectious Disease: check cultures, other - digital disimpaction if medical management fails Gastrointestinal: hold feedings Endocrine: monitor blood sugar, check HgA1C Neurologic: PRN Ativan, PRN Morphine Affect: PRN ativan Prophylaxis: Heparin Disposition: keep in ICU Notes Reviewed: target developer, 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 Critical Care - Objective Last 24 Hour Vital Signs Date Time Temp Pulse Resp B/P (MAP) Pulse Ox O2 Delivery O2 Flow Rate FiO2 09/12/18 13:14 79 19 35 09/12/18 12:06 Mechanical Ventilator 09/12/18 12:05 35 09/12/18 10:45 80 19 35 09/12/18 09:26 72 20 35 09/12/18 08:00 98.9 68 12 133/103 (113) 100 09/12/18 08:00 Mechanical Ventilator 09/12/18 08:00 67 09/12/18 08:00 35 09/12/18 07:00 75 19 35 09/12/18 05:10 67 17 35 09/12/18 04:00 Mechanical Ventilator 09/12/18 04:00 98.8 81 20 118/63 (81) 100 09/12/18 04:00 35 09/12/18 03:21 76 09/12/18 02:44 88 26 35 09/12/18 01:18 67 12 35 09/12/18 00:00 35 09/12/18 00:00 Mechanical Ventilator 09/12/18 00:00 98.9 68 20 140/65 (90) 100 09/11/18 23:38 70 09/11/18 22:48 88 20 35 09/11/18 21:18 68 17 35 09/11/18 20:01 75 09/11/18 20:00 98.8 81 20 154/75 (101) 100 09/11/18 20:00 35 09/11/18 20:00 Mechanical Ventilator 09/11/18 19:13 81 17 35 09/11/18 17:15 87 20 35 09/11/18 16:00 Mechanical Ventilator 09/11/18 16:00 35 09/11/18 15:49 80 17 35 09/11/18 15:42 98.6 80 16 141/70 (93) 100 09/11/18 15:41 80 09/11/18 15:33 35 09/11/18 14:12 Mechanical Ventilator Status: obtunded Condition: critical HEENT: atraumatic Lungs: chest wall tender Heart: HR/BP stable, HR/BP unstable Abdomen: non-tender, feeding tube Extremities: edema Decubiti: location Critical Care - Subjective ROS Limited/Unobtainable: Yes Condition: critical FI02: 35 Vent Support Breath Rate: 12 Vent Support Mode: AC Vent Tidal Volume: 450 Sputum Amount: Moderate PEEP: 5.0 PIP: 25 I&O: Intake and Output 09/11/18 09/12/18 19:00 07:00 Intake Total 1450.0 ml 156.25 ml Output Total 375 ml 400 ml Balance 1075.0 ml -243.75 ml Intake Free Water 50 ml IV Total 1400.0 ml 156.25 ml Output Urine Total 375 ml 400 ml # Voids 2 CXR: trach intact Labs: Laboratory Tests Test 09/11/18 17:15 09/12/18 03:00 Urine Color Pale yellow Urine Appearance Cloudy Urine pH 5 (4.5-8.0) Urine Specific [place] 1.010 (1.005-1.035) Urine Protein 1+ (NEGATIVE) H Urine Glucose (UA) Negative (NEGATIVE) Urine Ketones Negative (NEGATIVE) Urine Blood 2+ (NEGATIVE) H Urine Nitrite Negative (NEGATIVE) Urine Bilirubin Negative (NEGATIVE) Urine Urobilinogen Normal MG/DL (0.0-1.0) Urine Leukocyte Esterase 3+ (NEGATIVE) H Urine RBC 2-4 /HPF (0 - 2) H Urine WBC 5-10 /HPF (0 - 2) H Urine Squamous Epithelial Cells Occasional /LPF Urine Bacteria Few /HPF (NONE) Urine Random Sodium 20 mmol/L (20-110) White Blood Count 10.6 K/UL (4.8-10.8) Red Blood Count 2.78 M/UL (4.20-5.40) L Hemoglobin 8.3 G/DL (12.0-16.0) L Hematocrit 25.8 % (37.0-47.0) L Mean Corpuscular Volume 93 FL (80-99) Mean Corpuscular Hemoglobin 29.7 PG (27.0-31.0) Mean Corpuscular Hemoglobin Concent 32.1 G/DL (32.0-36.0) Red Cell Distribution Width 12.7 % (11.6-14.8) Platelet Count 310 K/UL (150-450) Mean Platelet Volume 5.8 FL (6.5-10.1) L Neutrophils (%) (Auto) 57.4 % (45.0-75.0) Lymphocytes (%) (Auto) 20.4 % (20.0-45.0) Monocytes (%) (Auto) 7.6 % (1.0-10.0) Eosinophils (%) (Auto) 14.0 % (0.0-3.0) H Basophils (%) (Auto) 0.6 % (0.0-2.0) Reticulocyte Count 1.0 % (0.0-2.0) Prothrombin Time 12.1 SEC (9.30-11.50) H Prothromb Time International Ratio 1.2 (0.9-1.1) H Activated Partial Thromboplast Time 27 SEC (23-33) Sodium Level 145 MMOL/L (136-145) Potassium Level 4.0 MMOL/L (3.5-5.1) Chloride Level 108 MMOL/L (98-107) H Carbon Dioxide Level 26 MMOL/L (21-32) Anion Gap 11 mmol/L (5-15) Blood Urea Nitrogen 39 mg/dL (7-18) H Creatinine 1.4 MG/DL (0.55-1.30) H Estimat Glomerular Filtration Rate mL/min (>60) Glucose Level 114 MG/DL (74-106) H Hemoglobin A1c 5.7 % (4.3-6.0) Uric Acid 6.7 MG/DL (2.6-7.2) Calcium Level 9.5 MG/DL (8.5-10.1) Phosphorus Level 2.7 MG/DL (2.5-4.9) Magnesium Level 2.5 MG/DL (1.8-2.4) H Iron Level 43 ug/dL (50-175) L Total Iron Binding Capacity 211 ug/dL (250-450) L Percent Iron Saturation 20 % (15-50) Unsaturated Iron Binding 168 ug/dL (112-346) Ferritin 547 NG/ML (8-388) H Total Bilirubin 0.3 MG/DL (0.2-1.0) Gamma Glutamyl Transpeptidase 15 U/L (5-85) Aspartate Amino Transf (AST/SGOT) 21 U/L (15-37) Alanine Aminotransferase (ALT/SGPT) 21 U/L (12-78) Alkaline Phosphatase 111 U/L (46-116) Total Creatine Kinase 116 U/L (26-308) Troponin I 0.009 ng/mL (0.000-0.056) Total Protein 8.5 G/DL (6.4-8.2) H Albumin 3.0 G/DL (3.4-5.0) L Globulin 5.5 g/dL Albumin/Globulin Ratio 0.5 (1.0-2.7) L Triglycerides Level 85 MG/DL (30-150) Cholesterol Level 189 MG/DL (< 200) LDL Cholesterol 132 mg/dL (<100) H HDL Cholesterol 46 MG/DL (40-60) Cholesterol/HDL Ratio 4.1 (3.3-4.4) Carcinoembryonic Antigen Pending Vitamin B12 Level 1902 PG/ML (193-986) H Folate 94.8 NG/ML (8.6-58.9) H Thyroid Stimulating Hormone (TSH) 0.986 uiU/mL (0.358-3.740) Free Thyroxine 1.59 NG/DL (0.76-1.46) H Sue Yu MD Sep 12, 2018 13:35
[2018-09-12] MEDS ORDERED: LORazepam Inj 2mg/ml 1ml IV PRN (13:45)
--- NOTE | 2018-09-12 14:43 | General Progress Note ---
Assessment/Plan Problem List: (1) UTI (urinary tract infection) ICD Codes: N39.0 - Urinary tract infection, site not specified SNOMED: 81106801 (2) Chronic respiratory failure ICD Codes: J96.10 - Chronic respiratory failure, unspecified whether with hypoxia or hypercapnia SNOMED: 59704706 (3) Ileus ICD Codes: K56.7 - Ileus, unspecified SNOMED: 287992576 (4) HTN (hypertension) ICD Codes: I10 - Essential (primary) hypertension SNOMED: 86617691 (5) Sepsis ICD Codes: A41.9 - Sepsis, unspecified organism SNOMED: 61742504 (6) Anemia ICD Codes: D64.9 - Anemia, unspecified SNOMED: 159146312 Status: unchanged Assessment/Plan vent abx bp seizure control ltach eval Subjective Constitutional: Reports: weakness Allergies: Coded Allergies: ASPIRIN (Verified Allergy, Unknown, 07/07/17) All Systems: reviewed and negative except above Subjective trach vent confused Objective Last 24 Hour Vital Signs Date Time Temp Pulse Resp B/P (MAP) Pulse Ox O2 Delivery O2 Flow Rate FiO2 09/12/18 13:14 79 19 35 09/12/18 12:06 Mechanical Ventilator 09/12/18 12:05 35 09/12/18 12:00 99.2 98 21 140/67 (91) 100 09/12/18 10:45 80 19 35 09/12/18 09:26 72 20 35 09/12/18 08:00 98.9 68 12 133/103 (113) 100 09/12/18 08:00 Mechanical Ventilator 09/12/18 08:00 67 09/12/18 08:00 35 09/12/18 07:00 75 19 35 09/12/18 05:10 67 17 35 09/12/18 04:00 Mechanical Ventilator 09/12/18 04:00 98.8 81 20 118/63 (81) 100 09/12/18 04:00 35 09/12/18 03:21 76 09/12/18 02:44 88 26 35 09/12/18 01:18 67 12 35 09/12/18 00:00 35 09/12/18 00:00 Mechanical Ventilator 09/12/18 00:00 98.9 68 20 140/65 (90) 100 09/11/18 23:38 70 09/11/18 22:48 88 20 35 09/11/18 21:18 68 17 35 09/11/18 20:01 75 09/11/18 20:00 98.8 81 20 154/75 (101) 100 09/11/18 20:00 35 09/11/18 20:00 Mechanical Ventilator 09/11/18 19:13 81 17 35 09/11/18 17:15 87 20 35 09/11/18 16:00 Mechanical Ventilator 09/11/18 16:00 35 09/11/18 15:49 80 17 35 09/11/18 15:42 98.6 80 16 141/70 (93) 100 09/11/18 15:41 80 09/11/18 15:33 35 Intake and Output 09/11/18 09/12/18 19:00 07:00 Intake Total 1450.0 ml 156.25 ml Output Total 375 ml 400 ml Balance 1075.0 ml -243.75 ml Intake Free Water 50 ml IV Total 1400.0 ml 156.25 ml Output Urine Total 375 ml 400 ml # Voids 2 Laboratory Tests 09/11/18 17:15: Urine Color Pale yellow, Urine Appearance Cloudy, Urine pH 5, Urine Specific [place] 1.010, Urine Protein 1+H, Urine Glucose (UA) Negative, Urine Ketones Negative, Urine Blood 2+H, Urine Nitrite Negative, Urine Bilirubin Negative, Urine Urobilinogen Normal, Urine Leukocyte Esterase 3+H, Urine RBC 2-4H, Urine WBC 5-10H, Urine Squamous Epithelial Cells Occasional, Urine Bacteria Few, Urine Random Sodium 20 09/12/18 03:00: White Blood Count 10.6, Red Blood Count 2.78L, Hemoglobin 8.3L, Hematocrit 25.8L , Mean Corpuscular Volume 93, Mean Corpuscular Hemoglobin 29.7, Mean Corpuscular Hemoglobin Concent 32.1, Red Cell Distribution Width 12.7, Platelet Count 310, Mean Platelet Volume 5.8L, Neutrophils (%) (Auto) 57.4, Lymphocytes ( %) (Auto) 20.4, Monocytes (%) (Auto) 7.6, Eosinophils (%) (Auto) 14.0H, Basophils (%) (Auto) 0.6, Reticulocyte Count 1.0, Prothrombin Time 12.1H, Prothromb Time International Ratio 1.2H, Activated Partial Thromboplast Time 27 , Sodium Level 145, Potassium Level 4.0, Chloride Level 108H, Carbon Dioxide Level 26, Anion Gap 11, Blood Urea Nitrogen 39H, Creatinine 1.4H, Estimat Glomerular Filtration Rate , Glucose Level 114H, Hemoglobin A1c 5.7, Uric Acid 6.7, Calcium Level 9.5, Phosphorus Level 2.7, Magnesium Level 2.5H, Iron Level 43L, Total Iron Binding Capacity 211L, Percent Iron Saturation 20, Unsaturated Iron Binding 168, Ferritin 547H, Total Bilirubin 0.3, Gamma Glutamyl Transpeptidase 15, Aspartate Amino Transf (AST/SGOT) 21, Alanine Aminotransferase (ALT/SGPT) 21, Alkaline Phosphatase 111, Total Creatine Kinase 116, Troponin I 0.009, Total Protein 8.5H, Albumin 3.0L, Globulin 5.5, Albumin/ Globulin Ratio 0.5L, Triglycerides Level 85, Cholesterol Level 189, LDL Cholesterol 132H, HDL Cholesterol 46, Cholesterol/HDL Ratio 4.1, Carcinoembryonic Antigen [Pending], Vitamin B12 Level 1902H, Folate 94.8H, Thyroid Stimulating Hormone (TSH) 0.986, Free Thyroxine 1.59H Height (Feet): 5 Height (Inches): 3.00 Weight (Pounds): 135 General Appearance: lethargic EENT: normal ENT inspection Neck: normal alignment Cardiovascular: normal peripheral pulses, normal rate, regular rhythm Respiratory/Chest: chest wall non-tender, lungs clear, normal breath sounds Abdomen: normal bowel sounds, non tender, soft Extremities: normal inspection Edema: no edema noted Arm (L), no edema noted Arm (R), no edema noted Leg (L), no edema noted Leg (R), no edema noted Pedal (L), no edema noted Pedal (R), no edema noted Generalized Neurologic: responsive, motor weakness Skin: normal pigmentation, warm/dry Rl White DO Sep 12, 2018 14:43
[2018-09-12] MEDS ORDERED: Tubing IV Secondary IV ONE (14:48)
[2018-09-12] MEDS ORDERED: D5 1/2NS 1000ml IV ONE (14:48)
[2018-09-12] MEDS ORDERED: D5NS 1000ml IV ONE (14:48)
[2018-09-12] MEDS ORDERED: NS 275ml ONE (14:48)
--- NOTE | 2018-09-12 15:42 | Cardiology Report ---
APPROVED REPORT EXAM: Two-dimensional and M-mode echocardiogram with Doppler and color Doppler. INDICATION Congestive Heart Failure M-Mode DIMENSIONS IVSd0.7 (0.7-1.1cm)Left Atrium (MM)1.9 (1.6-4.0cm) LVDd4.9 (3.5-5.6cm)Aortic Root3.5 (2.0-3.7cm) PWd1.0 (0.7-1.1cm)Aortic Cusp Exc.1.6 (1.5-2.0cm) IVSs1.3 cm LVDs3.5 (2.5-4.0cm) PWs0.8 cm Normal left ventricular chamber size, systolic function and wall motion to extent visualized. Left ventricular ejection fraction estimated to be 55-60 %. Mild left ventricular hypertrophy by 2-D. No evidence of pericardial effusion. All other cardiac chamber sizes are within normal limits. Focal aortic valve sclerosis with adequate cusp excursion. Thickened mitral valve leaflets with normal excursion. Mitral annulus and aortic root calcification. Normal pulmonic valve structure. Normal tricuspid valve structure. IVC at normal size with physiologic collapse. A color flow and spectral Doppler study was performed and revealed: No aortic insufficiency . Trace mitral regurgitation. Mitral diastolic velocities suggest reduced left ventricular relaxation c/w mild LV diastolic dysfunction (Grade I ). Mild tricuspid regurgitation. Tricuspid systolic velocities suggests peak right ventricular systolic pressure of 46 mmHg,consistent with moderate pulmonary hypertension.
[2018-09-12 16:00] VITALS: BP 144/79
--- NOTE | 2018-09-12 17:00 | NUR ---
NURSE NOTES: Pt turned and repositioned ,oral /tracheal secretions suctioned PRN.
--- NOTE | 2018-09-12 19:24 | NUR ---
HAND-OFF: Report given to Aleja Gutiérrez RN,pt resting quietly in bed no resp distress presented during the shift..
--- NOTE | 2018-09-12 19:25 | NUR ---
NURSE NOTES: Received patient from Shoshana Soliman RN. Patient is awake, eyes open but not making contact. On trach Portex 8 to vent with settings of AC:12, TV:450, FiO2:35% PEEP:5, and saturating at 99% and showing no signs of pain or distress. Bed on lowest position and alarm is activated. Will continue plan of care.
[2018-09-12 20:00] VITALS: BP 135/62
[2018-09-12] MEDS: Miralax 17gm pkt ORAL SCH (20:36)
[2018-09-13] VITALS: BP 123/60
--- NOTE | 2018-09-13 02:26 | NUR ---
NURSE NOTES: Upon changing trach ties by RT, noted that skin underneath ties are dry and flaking. Will moisturize and monitor.
[2018-09-13 04:00] VITALS: BP 123/60
[2018-09-13 05:10] LABS: BASOPHILS % (AUTO) 0.8 % (0.0-2.0); EOSINOPHILS % (AUTO) 9.3 % (0.0-3.0); HEMOGLOBIN 8.1 G/DL (12.0-16.0); LYMPHOCYTES % (AUTO) 18.3 % (20.0-45.0); MEAN CORPUSCULAR VOLUME 92 FL (80-99); MONOCYTES % (AUTO) 6.6 % (1.0-10.0); NEUTROPHILS % (AUTO) 65.1 % (45.0-75.0); PLATELET COUNT 296 K/UL (150-450); RED BLOOD COUNT 2.71 M/UL (4.20-5.40); RED CELL DISTRIBUTION WIDTH 13.8 % (11.6-14.8); WHITE BLOOD COUNT 12.2 K/UL (4.8-10.8)
[2018-09-13 06:03] LABS: ALANINE AMINOTRANSFERASE 19 U/L (12-78); ALBUMIN 2.8 G/DL (3.4-5.0); ALBUMIN/GLOBULIN RATIO 0.5 (1.0-2.7); ALKALINE PHOSPHATASE 106 U/L (46-116); ANION GAP 9 mmol/L (5-15); ASPARTATE AMINO TRANSFERASE 20 U/L (15-37); BILIRUBIN,TOTAL 0.3 MG/DL (0.2-1.0); BLOOD UREA NITROGEN 26 mg/dL (7-18); CALCIUM 9.3 MG/DL (8.5-10.1); CARBON DIOXIDE 25 MMOL/L (21-32); CHLORIDE 115 MMOL/L (98-107); CREATININE 1.3 MG/DL (0.55-1.30); PHOSPHORUS 2.3 MG/DL (2.5-4.9); POTASSIUM 4.1 MMOL/L (3.5-5.1); SODIUM 149 MMOL/L (136-145)
[2018-09-13] MEDS: D5NS 1,000 ML IV SCH ×2 (07:04→22:34)
--- NOTE | 2018-09-13 07:08 | NUR ---
RESPIRATORY NOTE:Received Patient on trach with Vent Settings of ACVC- 12, VT 450, FIO2 35%, PEEP +5. Tracheostomy tube is secure and patent. Pt is sleeping, no SOB or resp distress noted . Bilateral rhonchi heard upon auscultation. Suctioned moderate amounts of thick white cook secretions. Vent plugged into red outlet. Alarms are set and audible. Ambu bag and spare trach are at bedside. Will continue to monitor throughout the day.
--- NOTE | 2018-09-13 07:20 | NUR ---
NURSE NOTES: Report received from Aleja Gutiérrez RN.Pt in bed awake,,with trach tube to vent , current settings,tolerating well,noted no resp distress,with occasional cough on and off,no signs of pain or discomfort,SR on the monitor,Pt NPO with clamped GT,with Purewick draining yellow urine,IV site x2 ,LAC and RW with IVF running D5NS at 75 ml/hr,both iv sites intact,skin warm and dry,SR up x2 HOB elevated ,bed lock in lowest position,will continue with plans of care.
--- NOTE | 2018-09-13 07:20 | NUR ---
HAND-OFF: Report given to Shoshana Soliman RN.
[2018-09-13 08:00] VITALS: BP 120/64
--- NOTE | 2018-09-13 09:00 | NUR ---
NURSE NOTES: Pt with on and off coughing,oral/tracheal secretions suctioned PRN with large amount of oral secretions coming out of mouth.
[2018-09-13] MEDS: Pantoprazole Inj IV SCH ×2 (09:23→22:33)
[2018-09-13] MEDS: Docusate 100mg/10ml Liq GT SCH ×3 (09:23→18:00)
[2018-09-13] MEDS: Heparin 5000 units/ml inj SUBQ SCH ×2 (09:28→22:36)
--- NOTE | 2018-09-13 09:49 | NUR ---
RADIOLOGY DEPT CHEST X-RAY DONE.-P.DYE
--- NOTE | 2018-09-13 10:57 | Pulmonolgy Critical Care Note ---
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 - Objective Last 24 Hour Vital Signs Date Time Temp Pulse Resp B/P (MAP) Pulse Ox O2 Delivery O2 Flow Rate FiO2 09/13/18 10:37 82 20 35 09/13/18 08:45 80 21 35 09/13/18 08:00 84 09/13/18 08:00 Mechanical Ventilator 09/13/18 08:00 35 09/13/18 08:00 98.2 61 22 120/64 (82) 100 09/13/18 07:08 74 12 35 09/13/18 06:04 87 25 35 09/13/18 04:00 35 09/13/18 04:00 98.8 67 16 123/60 (81) 100 09/13/18 04:00 Mechanical Ventilator 09/13/18 03:37 67 09/13/18 02:32 69 17 35 09/13/18 01:11 69 18 35 09/13/18 00:07 71 09/13/18 00:00 98.1 70 18 123/60 (81) 100 09/13/18 00:00 35 09/13/18 00:00 Mechanical Ventilator 09/12/18 23:24 68 15 35 09/12/18 21:13 71 15 35 09/12/18 20:04 73 19 35 09/12/18 20:00 99.0 70 21 135/62 (86) 100 09/12/18 20:00 35 09/12/18 20:00 Mechanical Ventilator 09/12/18 19:03 70 09/12/18 17:05 79 20 35 09/12/18 16:00 99.1 75 20 144/79 (100) 100 09/12/18 16:00 64 09/12/18 16:00 Mechanical Ventilator 09/12/18 16:00 35 09/12/18 15:05 82 20 35 09/12/18 13:14 79 19 35 09/12/18 12:06 Mechanical Ventilator 09/12/18 12:05 35 09/12/18 12:00 92 09/12/18 12:00 99.2 98 21 140/67 (91) 100 Status: obtunded Condition: critical HEENT: atraumatic Lungs: clear Heart: HR/BP stable Abdomen: soft, feeding tube Extremities: edema Decubiti: stage Micro: Microbiology Date/Time Source Procedure Growth Status 09/11/18 07:02 Nasal Nares MRSA Culture - Final Staphylococcus Aureus - Mrsa Complete 09/11/18 07:02 Rectum VRE Culture - Final Enterococcus Faecalis - Vre Complete Critical Care - Subjective ROS Limited/Unobtainable: Yes Condition: critical FI02: 35 Vent Support Breath Rate: 12 Vent Support Mode: AC Vent Tidal Volume: 450 Sputum Amount: Large PEEP: 5.0 PIP: 29 I&O: Intake and Output 09/12/18 09/13/18 18:59 06:59 Intake Total 1140 ml 75 ml Output Total 450 ml 400 ml Balance 690 ml -325 ml IV Total 900 ml 75 ml Other 240 ml Output Urine Total 450 ml 400 ml # Bowel Movements 2 Labs: Laboratory Tests Test 09/13/18 03:15 09/13/18 05:00 White Blood Count 12.2 K/UL (4.8-10.8) H Red Blood Count 2.71 M/UL (4.20-5.40) L Hemoglobin 8.1 G/DL (12.0-16.0) L Hematocrit 25.0 % (37.0-47.0) L Mean Corpuscular Volume 92 FL (80-99) Mean Corpuscular Hemoglobin 30.0 PG (27.0-31.0) Mean Corpuscular Hemoglobin Concent 32.5 G/DL (32.0-36.0) Red Cell Distribution Width 13.8 % (11.6-14.8) Platelet Count 296 K/UL (150-450) Mean Platelet Volume 6.1 FL (6.5-10.1) L Neutrophils (%) (Auto) 65.1 % (45.0-75.0) Lymphocytes (%) (Auto) 18.3 % (20.0-45.0) L Monocytes (%) (Auto) 6.6 % (1.0-10.0) Eosinophils (%) (Auto) 9.3 % (0.0-3.0) H Basophils (%) (Auto) 0.8 % (0.0-2.0) Sodium Level 149 MMOL/L (136-145) H Potassium Level 4.1 MMOL/L (3.5-5.1) Chloride Level 115 MMOL/L (98-107) H Carbon Dioxide Level 25 MMOL/L (21-32) Anion Gap 9 mmol/L (5-15) Blood Urea Nitrogen 26 mg/dL (7-18) H Creatinine 1.3 MG/DL (0.55-1.30) Estimat Glomerular Filtration Rate mL/min (>60) Glucose Level 100 MG/DL (74-106) Uric Acid 6.5 MG/DL (2.6-7.2) Calcium Level 9.3 MG/DL (8.5-10.1) Phosphorus Level 2.3 MG/DL (2.5-4.9) L Magnesium Level 2.6 MG/DL (1.8-2.4) H Total Bilirubin 0.3 MG/DL (0.2-1.0) Aspartate Amino Transf (AST/SGOT) 20 U/L (15-37) Alanine Aminotransferase (ALT/SGPT) 19 U/L (12-78) Alkaline Phosphatase 106 U/L (46-116) C-Reactive Protein, Quantitative 6.5 mg/dL (0.00-0.90) H Pro-B-Type Natriuretic Peptide 144 pg/mL (0-125) H Total Protein 8.2 G/DL (6.4-8.2) Albumin 2.8 G/DL (3.4-5.0) L Globulin 5.4 g/dL Albumin/Globulin Ratio 0.5 (1.0-2.7) L Stool Occult Blood Negative (NEGATIVE) Sue Yu MD Sep 13, 2018 10:56
[2018-09-13 12:00] VITALS: BP 139/94
--- NOTE | 2018-09-13 12:12 | Diagnostic Imaging Report ---
Indication: Dyspnea Comparison: 10/30/2017 A single view chest radiograph was obtained. Findings: Streaky densities at the lung bases demonstrated. Interstitial densities noted diffusely. Heart is borderline enlarged. Tracheostomy is noted. IMPRESSION: Basilar atelectasis versus infiltrate. Correlate clinically. Query mild CHF
--- NOTE | 2018-09-13 13:14 | GI Progress Note ---
Assessment/Plan Problems: (1) Ileus ICD Codes: K56.7 - Ileus, unspecified SNOMED: 729339472 (2) Fecal impaction in rectum ICD Codes: K56.41 - Fecal impaction SNOMED: 36159774 (3) Feeding by G-tube ICD Codes: Z93.1 - Gastrostomy status SNOMED: 144552365, 158195727 (4) Malfunction of gastrostomy tube ICD Codes: K94.23 - Gastrostomy malfunction SNOMED: 115072443 (5) Bowel obstruction ICD Codes: K56.609 - Unspecified intestinal obstruction, unspecified as to partial versus complete obstruction SNOMED: 68800634 (6) Anemia ICD Codes: D64.9 - Anemia, unspecified SNOMED: 800158159 Status: stable, progressing Status Narrative Discussed with Dr. Skinner Assessment/Plan CT AP reviewed >> Fecal impaction within the rectum, reported 2 bowel movements yesterday normocytic anemia OB stool negative Start GTFs per RD to goal mineral oil enema prn bowel regime of colace + miralax GT site care daily / prn Turn every 2 hours monitor H&H, prn transfusions bowel regime ppi fu labs The patient was seen and examined at bedside and all new and available data was reviewed in the patients chart. I agree with the above findings, impression and plan. (Patient seen earlier today. Signature stamp does not reflect patient encounter time.). - Jad Skinner MD Subjective Subjective Limited Objective Last 24 Hour Vital Signs Date Time Temp Pulse Resp B/P (MAP) Pulse Ox O2 Delivery O2 Flow Rate FiO2 09/13/18 12:00 35 09/13/18 12:00 98.1 82 26 139/94 (109) 98 09/13/18 12:00 Mechanical Ventilator 09/13/18 10:37 82 20 35 09/13/18 08:45 80 21 35 09/13/18 08:00 84 09/13/18 08:00 Mechanical Ventilator 09/13/18 08:00 35 09/13/18 08:00 98.2 61 22 120/64 (82) 100 09/13/18 07:08 74 12 35 09/13/18 06:04 87 25 35 09/13/18 04:00 35 09/13/18 04:00 98.8 67 16 123/60 (81) 100 09/13/18 04:00 Mechanical Ventilator 09/13/18 03:37 67 09/13/18 02:32 69 17 35 09/13/18 01:11 69 18 35 09/13/18 00:07 71 09/13/18 00:00 98.1 70 18 123/60 (81) 100 09/13/18 00:00 35 09/13/18 00:00 Mechanical Ventilator 09/12/18 23:24 68 15 35 09/12/18 21:13 71 15 35 09/12/18 20:04 73 19 35 09/12/18 20:00 99.0 70 21 135/62 (86) 100 09/12/18 20:00 35 09/12/18 20:00 Mechanical Ventilator 09/12/18 19:03 70 09/12/18 17:05 79 20 35 09/12/18 16:00 99.1 75 20 144/79 (100) 100 09/12/18 16:00 64 09/12/18 16:00 Mechanical Ventilator 09/12/18 16:00 35 09/12/18 15:05 82 20 35 09/12/18 13:14 79 19 35 Intake and Output 09/12/18 09/13/18 18:59 06:59 Intake Total 1140 ml 75 ml Output Total 450 ml 400 ml Balance 690 ml -325 ml IV Total 900 ml 75 ml Other 240 ml Output Urine Total 450 ml 400 ml # Bowel Movements 2 Laboratory Tests Test 09/13/18 03:15 09/13/18 05:00 White Blood Count 12.2 K/UL (4.8-10.8) H Red Blood Count 2.71 M/UL (4.20-5.40) L Hemoglobin 8.1 G/DL (12.0-16.0) L Hematocrit 25.0 % (37.0-47.0) L Mean Corpuscular Volume 92 FL (80-99) Mean Corpuscular Hemoglobin 30.0 PG (27.0-31.0) Mean Corpuscular Hemoglobin Concent 32.5 G/DL (32.0-36.0) Red Cell Distribution Width 13.8 % (11.6-14.8) Platelet Count 296 K/UL (150-450) Mean Platelet Volume 6.1 FL (6.5-10.1) L Neutrophils (%) (Auto) 65.1 % (45.0-75.0) Lymphocytes (%) (Auto) 18.3 % (20.0-45.0) L Monocytes (%) (Auto) 6.6 % (1.0-10.0) Eosinophils (%) (Auto) 9.3 % (0.0-3.0) H Basophils (%) (Auto) 0.8 % (0.0-2.0) Sodium Level 149 MMOL/L (136-145) H Potassium Level 4.1 MMOL/L (3.5-5.1) Chloride Level 115 MMOL/L (98-107) H Carbon Dioxide Level 25 MMOL/L (21-32) Anion Gap 9 mmol/L (5-15) Blood Urea Nitrogen 26 mg/dL (7-18) H Creatinine 1.3 MG/DL (0.55-1.30) Estimat Glomerular Filtration Rate mL/min (>60) Glucose Level 100 MG/DL (74-106) Uric Acid 6.5 MG/DL (2.6-7.2) Calcium Level 9.3 MG/DL (8.5-10.1) Phosphorus Level 2.3 MG/DL (2.5-4.9) L Magnesium Level 2.6 MG/DL (1.8-2.4) H Total Bilirubin 0.3 MG/DL (0.2-1.0) Aspartate Amino Transf (AST/SGOT) 20 U/L (15-37) Alanine Aminotransferase (ALT/SGPT) 19 U/L (12-78) Alkaline Phosphatase 106 U/L (46-116) C-Reactive Protein, Quantitative 6.5 mg/dL (0.00-0.90) H Pro-B-Type Natriuretic Peptide 144 pg/mL (0-125) H Total Protein 8.2 G/DL (6.4-8.2) Albumin 2.8 G/DL (3.4-5.0) L Globulin 5.4 g/dL Albumin/Globulin Ratio 0.5 (1.0-2.7) L Stool Occult Blood Negative (NEGATIVE) Height (Feet): 5 Height (Inches): 3.00 Weight (Pounds): 135 General Appearance: no apparent distress Cardiovascular: normal rate Respiratory/Chest: normal breath sounds, no respiratory distress Abdominal Exam: normal bowel sounds, non tender, soft, GT site - Clean dry and intact Extremities: normal range of motion, non-tender Objective Reported 2 bowel movements yesterday Svetlana French NP Sep 13, 2018 13:14
--- NOTE | 2018-09-13 14:30 | Surgery Progress Note ---
Surgery Progress Note Subjective Additional Comments fecal impaction resolving as she now having BM's after enemas Objective Last 24 Hour Vital Signs Date Time Temp Pulse Resp B/P (MAP) Pulse Ox O2 Delivery O2 Flow Rate FiO2 09/13/18 13:12 82 26 35 09/13/18 12:00 85 09/13/18 12:00 35 09/13/18 12:00 98.1 82 26 139/94 (109) 98 09/13/18 12:00 Mechanical Ventilator 09/13/18 10:37 82 20 35 09/13/18 08:45 80 21 35 09/13/18 08:00 84 09/13/18 08:00 Mechanical Ventilator 09/13/18 08:00 35 09/13/18 08:00 98.2 61 22 120/64 (82) 100 09/13/18 07:08 74 12 35 09/13/18 06:04 87 25 35 09/13/18 04:00 35 09/13/18 04:00 98.8 67 16 123/60 (81) 100 09/13/18 04:00 Mechanical Ventilator 09/13/18 03:37 67 09/13/18 02:32 69 17 35 09/13/18 01:11 69 18 35 09/13/18 00:07 71 09/13/18 00:00 98.1 70 18 123/60 (81) 100 09/13/18 00:00 35 09/13/18 00:00 Mechanical Ventilator 09/12/18 23:24 68 15 35 09/12/18 21:13 71 15 35 09/12/18 20:04 73 19 35 09/12/18 20:00 99.0 70 21 135/62 (86) 100 09/12/18 20:00 35 09/12/18 20:00 Mechanical Ventilator 09/12/18 19:03 70 09/12/18 17:05 79 20 35 09/12/18 16:00 99.1 75 20 144/79 (100) 100 09/12/18 16:00 64 09/12/18 16:00 Mechanical Ventilator 09/12/18 16:00 35 09/12/18 15:05 82 20 35 I&O Intake and Output 09/12/18 09/13/18 19:00 07:00 Intake Total 1140 ml Output Total 450 ml 400 ml Balance 690 ml -400 ml IV Total 900 ml Other 240 ml Output Urine Total 450 ml 400 ml # Bowel Movements 2 Dressing: other Wound: other Drains: other Cardiovascular: RSR Respiratory: clear Abdomen: soft, present bowel sounds, non-distended Extremities: other Laboratory Tests Test 09/13/18 03:15 09/13/18 05:00 White Blood Count 12.2 K/UL (4.8-10.8) H Red Blood Count 2.71 M/UL (4.20-5.40) L Hemoglobin 8.1 G/DL (12.0-16.0) L Hematocrit 25.0 % (37.0-47.0) L Mean Corpuscular Volume 92 FL (80-99) Mean Corpuscular Hemoglobin 30.0 PG (27.0-31.0) Mean Corpuscular Hemoglobin Concent 32.5 G/DL (32.0-36.0) Red Cell Distribution Width 13.8 % (11.6-14.8) Platelet Count 296 K/UL (150-450) Mean Platelet Volume 6.1 FL (6.5-10.1) L Neutrophils (%) (Auto) 65.1 % (45.0-75.0) Lymphocytes (%) (Auto) 18.3 % (20.0-45.0) L Monocytes (%) (Auto) 6.6 % (1.0-10.0) Eosinophils (%) (Auto) 9.3 % (0.0-3.0) H Basophils (%) (Auto) 0.8 % (0.0-2.0) Sodium Level 149 MMOL/L (136-145) H Potassium Level 4.1 MMOL/L (3.5-5.1) Chloride Level 115 MMOL/L (98-107) H Carbon Dioxide Level 25 MMOL/L (21-32) Anion Gap 9 mmol/L (5-15) Blood Urea Nitrogen 26 mg/dL (7-18) H Creatinine 1.3 MG/DL (0.55-1.30) Estimat Glomerular Filtration Rate mL/min (>60) Glucose Level 100 MG/DL (74-106) Uric Acid 6.5 MG/DL (2.6-7.2) Calcium Level 9.3 MG/DL (8.5-10.1) Phosphorus Level 2.3 MG/DL (2.5-4.9) L Magnesium Level 2.6 MG/DL (1.8-2.4) H Total Bilirubin 0.3 MG/DL (0.2-1.0) Aspartate Amino Transf (AST/SGOT) 20 U/L (15-37) Alanine Aminotransferase (ALT/SGPT) 19 U/L (12-78) Alkaline Phosphatase 106 U/L (46-116) C-Reactive Protein, Quantitative 6.5 mg/dL (0.00-0.90) H Pro-B-Type Natriuretic Peptide 144 pg/mL (0-125) H Total Protein 8.2 G/DL (6.4-8.2) Albumin 2.8 G/DL (3.4-5.0) L Globulin 5.4 g/dL Albumin/Globulin Ratio 0.5 (1.0-2.7) L Stool Occult Blood Negative (NEGATIVE) Plan Problems: (1) Ileus Assessment & Plan: 83F with multiple medical comorbidities currently admitted for evaluation of malfunctioning G tube. on CT noted to have ileus and fecal impaction. abdominal exam with mild distention. g tube in place some tympany but soft just received enema CT findings: Fecal impaction within the rectum. Patchy infiltrates at the lung bases. Consider pneumonia. Atherosclerotic disease Gastrostomy Broad-based ventral abdominal wall hernia. Gallstones. had enema with loose stool KUB okay -okay for feeds as tolerated -thank you. will follow with recs. (2) Fecal impaction in rectum Assessment & Plan: douglas valdez. hold on disimpaction Livan Dean Sep 13, 2018 14:30
--- NOTE | 2018-09-13 14:31 | General Progress Note ---
Assessment/Plan Problem List: (1) UTI (urinary tract infection) ICD Codes: N39.0 - Urinary tract infection, site not specified SNOMED: 17246792 (2) Chronic respiratory failure ICD Codes: J96.10 - Chronic respiratory failure, unspecified whether with hypoxia or hypercapnia SNOMED: 33321203 (3) Ileus ICD Codes: K56.7 - Ileus, unspecified SNOMED: 483648198 (4) HTN (hypertension) ICD Codes: I10 - Essential (primary) hypertension SNOMED: 51425886 (5) Sepsis ICD Codes: A41.9 - Sepsis, unspecified organism SNOMED: 56465847 (6) Anemia ICD Codes: D64.9 - Anemia, unspecified SNOMED: 986359773 Status: stable, progressing Assessment/Plan vent abx bp seizure control cbc bmp am ltach eval Subjective Constitutional: Reports: weakness Allergies: Coded Allergies: ASPIRIN (Verified Allergy, Unknown, 07/07/17) All Systems: reviewed and negative except above Subjective trach vent confused Objective Last 24 Hour Vital Signs Date Time Temp Pulse Resp B/P (MAP) Pulse Ox O2 Delivery O2 Flow Rate FiO2 09/13/18 13:12 82 26 35 09/13/18 12:00 85 09/13/18 12:00 35 09/13/18 12:00 98.1 82 26 139/94 (109) 98 09/13/18 12:00 Mechanical Ventilator 09/13/18 10:37 82 20 35 09/13/18 08:45 80 21 35 09/13/18 08:00 84 09/13/18 08:00 Mechanical Ventilator 09/13/18 08:00 35 09/13/18 08:00 98.2 61 22 120/64 (82) 100 09/13/18 07:08 74 12 35 09/13/18 06:04 87 25 35 09/13/18 04:00 35 09/13/18 04:00 98.8 67 16 123/60 (81) 100 09/13/18 04:00 Mechanical Ventilator 09/13/18 03:37 67 09/13/18 02:32 69 17 35 09/13/18 01:11 69 18 35 09/13/18 00:07 71 09/13/18 00:00 98.1 70 18 123/60 (81) 100 09/13/18 00:00 35 09/13/18 00:00 Mechanical Ventilator 09/12/18 23:24 68 15 35 09/12/18 21:13 71 15 35 09/12/18 20:04 73 19 35 09/12/18 20:00 99.0 70 21 135/62 (86) 100 09/12/18 20:00 35 09/12/18 20:00 Mechanical Ventilator 09/12/18 19:03 70 09/12/18 17:05 79 20 35 09/12/18 16:00 99.1 75 20 144/79 (100) 100 09/12/18 16:00 64 09/12/18 16:00 Mechanical Ventilator 09/12/18 16:00 35 09/12/18 15:05 82 20 35 Intake and Output 09/12/18 09/13/18 19:00 07:00 Intake Total 1140 ml Output Total 450 ml 400 ml Balance 690 ml -400 ml IV Total 900 ml Other 240 ml Output Urine Total 450 ml 400 ml # Bowel Movements 2 Laboratory Tests 09/13/18 03:15: White Blood Count 12.2H, Red Blood Count 2.71L, Hemoglobin 8.1L, Hematocrit 25.0L, Mean Corpuscular Volume 92, Mean Corpuscular Hemoglobin 30.0, Mean Corpuscular Hemoglobin Concent 32.5, Red Cell Distribution Width 13.8, Platelet Count 296, Mean Platelet Volume 6.1L, Neutrophils (%) (Auto) 65.1, Lymphocytes ( %) (Auto) 18.3L, Monocytes (%) (Auto) 6.6, Eosinophils (%) (Auto) 9.3H, Basophils (%) (Auto) 0.8, Sodium Level 149H, Potassium Level 4.1, Chloride Level 115H, Carbon Dioxide Level 25, Anion Gap 9, Blood Urea Nitrogen 26H, Creatinine 1.3, Estimat Glomerular Filtration Rate , Glucose Level 100, Uric Acid 6.5, Calcium Level 9.3, Phosphorus Level 2.3L, Magnesium Level 2.6H, Total Bilirubin 0.3, Aspartate Amino Transf (AST/SGOT) 20, Alanine Aminotransferase ( ALT/SGPT) 19, Alkaline Phosphatase 106, C-Reactive Protein, Quantitative 6.5H, Pro-B-Type Natriuretic Peptide 144H, Total Protein 8.2, Albumin 2.8L, Globulin 5.4, Albumin/Globulin Ratio 0.5L 09/13/18 05:00: Stool Occult Blood Negative Height (Feet): 5 Height (Inches): 3.00 Weight (Pounds): 135 General Appearance: lethargic EENT: normal ENT inspection Neck: normal alignment Cardiovascular: normal peripheral pulses, normal rate, regular rhythm Respiratory/Chest: chest wall non-tender, lungs clear, normal breath sounds Abdomen: normal bowel sounds, non tender, hypoactive bowel sounds Extremities: normal inspection Edema: no edema noted Arm (L), no edema noted Arm (R), no edema noted Leg (L), no edema noted Leg (R), no edema noted Pedal (L), no edema noted Pedal (R), no edema noted Generalized Neurologic: motor weakness Skin: normal pigmentation, warm/dry Rl White DO Sep 13, 2018 14:31
--- NOTE | 2018-09-13 14:41 | Infectious Diseases Prog Note ---
Assessment/Plan Assessment/Plan Abx: IV Vancomycin 09/11- Assessment: Probable PNA (increased secretions, leukocytosis) -CXR: Basilar atelectasis versus infiltrate. Correlate clinically. Query mild CHF GT malfunction -CT abd/p: Fecal impaction within the rectum. Patchy infiltrates at the lung bases. Consider pneumonia. Atherosclerotic disease. Gastrostomy. Broad-based ventral abdominal wall hernia. Gallstones. Afebrile Mild leukocytosis JAMES, improving Hx of recurrent PNA (VAP/HAP) -10/2017 MDR PSA, H. flu -sp cx MDR ACB 07/2017, s/p Rx Hypertension. History of seizure disorder Ventilator-dependent respiratory failure History of lower extremity DVT History of PEG and trach placement dementia quadriplegic COPD [facility] resident Plan: -Will start empiric IV Vanco and Zosyn for PNA pending sp cx. -09/11 SP IV Vancomycin #1 -f/u cx -Monitor CBC/CMP, temperatures -trach/peg care -aspiration precautions -GI f.u Thank you for this consultation. Will continue to follow along with you. Discussed with RN Subjective Allergies: Coded Allergies: ASPIRIN (Verified Allergy, Unknown, 07/07/17) Subjective afebrle mild leukocytosuis Cr improving mod secretions Objective Vital Signs Last 24 Hour Vital Signs Date Time Temp Pulse Resp B/P (MAP) Pulse Ox O2 Delivery O2 Flow Rate FiO2 09/13/18 13:12 82 26 35 09/13/18 12:00 85 09/13/18 12:00 35 09/13/18 12:00 98.1 82 26 139/94 (109) 98 09/13/18 12:00 Mechanical Ventilator 09/13/18 10:37 82 20 35 09/13/18 08:45 80 21 35 09/13/18 08:00 84 09/13/18 08:00 Mechanical Ventilator 09/13/18 08:00 35 09/13/18 08:00 98.2 61 22 120/64 (82) 100 09/13/18 07:08 74 12 35 09/13/18 06:04 87 25 35 09/13/18 04:00 35 09/13/18 04:00 98.8 67 16 123/60 (81) 100 09/13/18 04:00 Mechanical Ventilator 09/13/18 03:37 67 09/13/18 02:32 69 17 35 09/13/18 01:11 69 18 35 09/13/18 00:07 71 09/13/18 00:00 98.1 70 18 123/60 (81) 100 09/13/18 00:00 35 09/13/18 00:00 Mechanical Ventilator 09/12/18 23:24 68 15 35 09/12/18 21:13 71 15 35 09/12/18 20:04 73 19 35 09/12/18 20:00 99.0 70 21 135/62 (86) 100 09/12/18 20:00 35 09/12/18 20:00 Mechanical Ventilator 09/12/18 19:03 70 09/12/18 17:05 79 20 35 09/12/18 16:00 99.1 75 20 144/79 (100) 100 09/12/18 16:00 64 09/12/18 16:00 Mechanical Ventilator 09/12/18 16:00 35 09/12/18 15:05 82 20 35 Height (Feet): 5 Height (Inches): 3.00 Weight (Pounds): 135 Objective General Appearance: WD/WN, no apparent distress Lines, tubes and drains: peripheral HEENT: normocephalic, atraumatic Neck: non-tender, normal alignment Respiratory/Chest: chest wall non-tender, lungs clear, decreased breath sounds Cardiovascular/Chest: normal peripheral pulses Abdomen: normal bowel sounds, non tender 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 II-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 grossly normal Microbiology Date/Time Source Procedure Growth Status 09/11/18 07:02 Nasal Nares MRSA Culture - Final Staphylococcus Aureus - Mrsa Complete 09/11/18 07:02 Rectum VRE Culture - Final Enterococcus Faecalis - Vre Complete Laboratory Tests Test 09/13/18 03:15 09/13/18 05:00 White Blood Count 12.2 K/UL (4.8-10.8) H Red Blood Count 2.71 M/UL (4.20-5.40) L Hemoglobin 8.1 G/DL (12.0-16.0) L Hematocrit 25.0 % (37.0-47.0) L Mean Corpuscular Volume 92 FL (80-99) Mean Corpuscular Hemoglobin 30.0 PG (27.0-31.0) Mean Corpuscular Hemoglobin Concent 32.5 G/DL (32.0-36.0) Red Cell Distribution Width 13.8 % (11.6-14.8) Platelet Count 296 K/UL (150-450) Mean Platelet Volume 6.1 FL (6.5-10.1) L Neutrophils (%) (Auto) 65.1 % (45.0-75.0) Lymphocytes (%) (Auto) 18.3 % (20.0-45.0) L Monocytes (%) (Auto) 6.6 % (1.0-10.0) Eosinophils (%) (Auto) 9.3 % (0.0-3.0) H Basophils (%) (Auto) 0.8 % (0.0-2.0) Sodium Level 149 MMOL/L (136-145) H Potassium Level 4.1 MMOL/L (3.5-5.1) Chloride Level 115 MMOL/L (98-107) H Carbon Dioxide Level 25 MMOL/L (21-32) Anion Gap 9 mmol/L (5-15) Blood Urea Nitrogen 26 mg/dL (7-18) H Creatinine 1.3 MG/DL (0.55-1.30) Estimat Glomerular Filtration Rate mL/min (>60) Glucose Level 100 MG/DL (74-106) Uric Acid 6.5 MG/DL (2.6-7.2) Calcium Level 9.3 MG/DL (8.5-10.1) Phosphorus Level 2.3 MG/DL (2.5-4.9) L Magnesium Level 2.6 MG/DL (1.8-2.4) H Total Bilirubin 0.3 MG/DL (0.2-1.0) Aspartate Amino Transf (AST/SGOT) 20 U/L (15-37) Alanine Aminotransferase (ALT/SGPT) 19 U/L (12-78) Alkaline Phosphatase 106 U/L (46-116) C-Reactive Protein, Quantitative 6.5 mg/dL (0.00-0.90) H Pro-B-Type Natriuretic Peptide 144 pg/mL (0-125) H Total Protein 8.2 G/DL (6.4-8.2) Albumin 2.8 G/DL (3.4-5.0) L Globulin 5.4 g/dL Albumin/Globulin Ratio 0.5 (1.0-2.7) L Stool Occult Blood Negative (NEGATIVE) Current Medications Medications (Trade) Dose Ordered Sig/Torsten Route PRN Reason Start Time Stop Time Status Last Admin Dose Admin Acetaminophen (Tylenol) 650 mg Q4H PRN ORAL FEVER 09/11/18 07:30 10/11/18 07:29 Albuterol/ Ipratropium (Albuterol/ Ipratropium) 3 ml EVERY 4 HOURS PRN HHN Shortness of Breath 09/11/18 07:30 09/16/18 07:29 Dextrose (Dextrose 50%) 25 ml Q30M PRN IV Hypoglycemia 09/11/18 08:30 10/11/18 08:23 Dextrose (Dextrose 50%) 50 ml Q30M PRN IV hypoglycemia 09/11/18 08:30 10/11/18 08:29 Dextrose/Sodium Chloride 1,000 ml @ 75 mls/hr [id number] IV 09/11/18 15:45 10/11/18 15:44 09/13/18 07:04 Docusate Sodium (Colace) 100 mg THREE TIMES A DAY GT 09/11/18 18:00 10/11/18 17:59 09/13/18 13:29 Heparin Sodium (Porcine) (Heparin 5000 units/ml) 5,000 units EVERY 12 HOURS SUBQ 09/11/18 09:00 10/11/18 08:59 09/13/18 09:28 Lorazepam (Ativan 2mg/ml 1ml) 2 mg Q2H PRN IV seizure 09/12/18 13:45 09/19/18 13:44 Mineral Oil (Mineral Oil) 30 ml DAILYPRN PRN ORAL Constipation 09/11/18 10:00 10/11/18 09:59 09/12/18 12:17 Morphine Sulfate (Morphine Sulfate) 4 mg EVERY 4 HOURS PRN IVP Severe Pain (Pain Scale 7-10) 09/11/18 07:30 09/18/18 07:29 Ondansetron HCl (Zofran) 4 mg Q6H PRN IVP Nausea & Vomiting 09/11/18 07:30 10/11/18 07:29 Pantoprazole (Protonix) 40 mg Q12HR IV 09/11/18 21:00 10/11/18 08:59 09/13/18 09:23 Polyethylene Glycol (Miralax) 17 gm BEDTIME ORAL 09/11/18 21:00 10/11/18 20:59 09/12/18 20:36 Polyethylene Glycol (Miralax) 17 gm DAILYPRN PRN ORAL Constipation 09/11/18 07:30 10/11/18 07:29 Trazodone HCl (Desyrel) 50 mg BEDTIME PRN GT insomnia 09/11/18 07:30 10/11/18 07:29 Yane Umana M.D. Sep 13, 2018 14:41
[2018-09-13 16:00] VITALS: BP 129/76
[2018-09-13] MEDS: Piperacillin/Tazobactam 3.375 GM in D5W 110 ML IVPB SCH ×2 (16:24→22:34)
--- NOTE | 2018-09-13 16:30 | NUR ---
NURSE NOTES: Bowel movement noted to moderate amount of soft formed brown stools,kept dry and cleaned,turned and repositioned .
--- NOTE | 2018-09-13 16:33 | Nephrology Progress Note ---
Assessment/Plan Problem List: (1) Chronic respiratory failure (2) Fecal impaction (3) Anemia (4) Cardiomyopathy (5) Acute on chronic renal failure Assessment Renal failure- Acute on Chronic Acute and chronic respiratory failure Nosocomial pneumonia Fecal impaction / Bowel obstruction Chronic vegetative state Cardiomyopathy Seizure disorder Plan Plan: Slow Hydrate Anemia bryant Urine studies Avoid Nephrotoxics Laxatives Per ID Subjective ROS Limited/Unobtainable: Yes Objective Objective Last 24 Hour Vital Signs Date Time Temp Pulse Resp B/P (MAP) Pulse Ox O2 Delivery O2 Flow Rate FiO2 09/13/18 16:09 35 09/13/18 16:07 Mechanical Ventilator 09/13/18 14:42 66 25 35 09/13/18 13:12 82 26 35 09/13/18 12:00 85 09/13/18 12:00 35 09/13/18 12:00 98.1 82 26 139/94 (109) 98 09/13/18 12:00 Mechanical Ventilator 09/13/18 10:37 82 20 35 09/13/18 08:45 80 21 35 09/13/18 08:00 84 09/13/18 08:00 Mechanical Ventilator 09/13/18 08:00 35 09/13/18 08:00 98.2 61 22 120/64 (82) 100 09/13/18 07:08 74 12 35 09/13/18 06:04 87 25 35 09/13/18 04:00 35 09/13/18 04:00 98.8 67 16 123/60 (81) 100 09/13/18 04:00 Mechanical Ventilator 09/13/18 03:37 67 09/13/18 02:32 69 17 35 09/13/18 01:11 69 18 35 09/13/18 00:07 71 09/13/18 00:00 98.1 70 18 123/60 (81) 100 09/13/18 00:00 35 09/13/18 00:00 Mechanical Ventilator 09/12/18 23:24 68 15 35 09/12/18 21:13 71 15 35 09/12/18 20:04 73 19 35 09/12/18 20:00 99.0 70 21 135/62 (86) 100 09/12/18 20:00 35 09/12/18 20:00 Mechanical Ventilator 09/12/18 19:03 70 09/12/18 17:05 79 20 35 Intake and Output 09/12/18 09/13/18 19:00 07:00 Intake Total 1140 ml Output Total 450 ml 400 ml Balance 690 ml -400 ml IV Total 900 ml Other 240 ml Output Urine Total 450 ml 400 ml # Bowel Movements 2 Laboratory Tests 09/13/18 03:15: White Blood Count 12.2H, Red Blood Count 2.71L, Hemoglobin 8.1L, Hematocrit 25.0L, Mean Corpuscular Volume 92, Mean Corpuscular Hemoglobin 30.0, Mean Corpuscular Hemoglobin Concent 32.5, Red Cell Distribution Width 13.8, Platelet Count 296, Mean Platelet Volume 6.1L, Neutrophils (%) (Auto) 65.1, Lymphocytes ( %) (Auto) 18.3L, Monocytes (%) (Auto) 6.6, Eosinophils (%) (Auto) 9.3H, Basophils (%) (Auto) 0.8, Sodium Level 149H, Potassium Level 4.1, Chloride Level 115H, Carbon Dioxide Level 25, Anion Gap 9, Blood Urea Nitrogen 26H, Creatinine 1.3, Estimat Glomerular Filtration Rate , Glucose Level 100, Uric Acid 6.5, Calcium Level 9.3, Phosphorus Level 2.3L, Magnesium Level 2.6H, Total Bilirubin 0.3, Aspartate Amino Transf (AST/SGOT) 20, Alanine Aminotransferase ( ALT/SGPT) 19, Alkaline Phosphatase 106, C-Reactive Protein, Quantitative 6.5H, Pro-B-Type Natriuretic Peptide 144H, Total Protein 8.2, Albumin 2.8L, Globulin 5.4, Albumin/Globulin Ratio 0.5L 09/13/18 05:00: Stool Occult Blood Negative Height (Feet): 5 Height (Inches): 3.00 Weight (Pounds): 135 General Appearance: no apparent distress Cardiovascular: tachycardia Respiratory/Chest: decreased breath sounds Abdomen: distended Objective no change Tono Case MD Sep 13, 2018 16:33
--- NOTE | 2018-09-13 17:00 | NUR ---
CASE MANAGEMENT: REVIEW SI: ILEUS . FECAL IMPACTION . MALFUNCTIONING GASTRIC TUBE T 98.8 HR 97 RR 26 BP 129/76 SAT 98% MECH VENT FIO2 35 WBC 12.2 H/H 8.1/25.0 IS: VANCO IV Q24HR ZOSYN IV Q8HR D5 NS IVF @75ML/HR STEP DOWN UNIT STATUS DCP: PATIENT IS FROM [facility]
--- NOTE | 2018-09-13 19:06 | NUR ---
HAND-OFF: Report given to Dorys Clayton RN,pt stable no resp distress presented during the shift. .
--- NOTE | 2018-09-13 19:10 | NUR ---
NURSE NOTES: Received patient from FÁTIMA RODRIGUEZ RN.Obtunded flat affected.Trach to vent dependent with Portex 8 ,Mode on AC 12 TV 450 FIO2 35% PEEP 5 and sating [id number]%.no acte respiratory or cardiac distress noted.SR on monitor. vs stable. afebrile. no sign of pain. NPO as per order. GT clamped.Purewick in placed with yellow urine. IV to RH G 24 intact running D5NS at 75cc/hr.contact isolation maintained . will continue to monitor patient.
--- NOTE | 2018-09-13 19:12 | NUR ---
RESPIRATORY NOTE: Pt was received stable at vent settings AC 12, 450 VT, 35%, PEEP +5. Pt is trached with a cuffed portex 8. Secretions are thick, moderate, green/cook. Vent is plugged into red outlet. No respiratory distress noted. Will continue to monitor closely.
[2018-09-13 20:00] VITALS: BP 114/86
[2018-09-13] MEDS ORDERED: Vancomycin 1250mg/D5W 250ml IVPB ONE (20:00)
[2018-09-13] MEDS: Miralax 17gm pkt ORAL SCH (22:33)
[2018-09-14] VITALS: BP 126/61
--- NOTE | 2018-09-14 01:40 | NUR ---
HAND-OFF: Report given to RONDA SHRESTHA using SBAR.Patient remains stable.
--- NOTE | 2018-09-14 01:44 | NUR ---
NURSE NOTES: Report received from RONDA Saul. Pt shows no signs of distress. VSS. Pt on vent: AC, TV 50, FiO2 35%, and P, 5. Pt is in stable condition; will continue to monitor.
[2018-09-14 04:00] VITALS: BP 130/70
[2018-09-14] MEDS: Piperacillin/Tazobactam 3.375 GM in D5W 110 ML IVPB SCH ×2 (05:17→13:38)
--- NOTE | 2018-09-14 07:00 | NUR ---
RESPIRATORY NOTE: Pt received on mechanical ventilator: AC 450, 12, 35%, +5 Patient is a trach patient with PTX 8. Spare trach bedside, AMBU bag bedside, alarm are set and audible. Will continue to monitor patient.
--- NOTE | 2018-09-14 07:20 | NUR ---
HAND-OFF: Report given to RONDA Cox. Pt is in stable condition; plan of care endorsed.
--- NOTE | 2018-09-14 07:21 | NUR ---
NURSE NOTES: Received patient from RONDA Kingston. Patient in bed and obtunded. No SOB. Respirations are even and unlaboured. Trach to vent dependent. pvc monitor in placed. Currently NPO and gtube clamped due to fecal impaction. Purewick in placed. IV site asymptomatic. Bed in lowest position with side rails up. Will continue to follow plan of care.
[2018-09-14 07:36] LABS: BASOPHILS % (AUTO) 1.1 % (0.0-2.0); EOSINOPHILS % (AUTO) 7.2 % (0.0-3.0); HEMATOCRIT 26.4 % (37.0-47.0); HEMOGLOBIN 8.4 G/DL (12.0-16.0); LYMPHOCYTES % (AUTO) 18.1 % (20.0-45.0); MEAN CORPUSCULAR VOLUME 94 FL (80-99); MONOCYTES % (AUTO) 8.1 % (1.0-10.0); NEUTROPHILS % (AUTO) 65.5 % (45.0-75.0); PLATELET COUNT 313 K/UL (150-450); RED CELL DISTRIBUTION WIDTH 13.8 % (11.6-14.8); WHITE BLOOD COUNT 13.2 K/UL (4.8-10.8)
--- NOTE | 2018-09-14 07:53 | General Progress Note ---
Assessment/Plan Problem List: (1) UTI (urinary tract infection) ICD Codes: N39.0 - Urinary tract infection, site not specified SNOMED: 01733878 (2) Chronic respiratory failure ICD Codes: J96.10 - Chronic respiratory failure, unspecified whether with hypoxia or hypercapnia SNOMED: 19437987 (3) Ileus ICD Codes: K56.7 - Ileus, unspecified SNOMED: 977552861 (4) HTN (hypertension) ICD Codes: I10 - Essential (primary) hypertension SNOMED: 95963426 (5) Sepsis ICD Codes: A41.9 - Sepsis, unspecified organism SNOMED: 71893843 (6) Anemia ICD Codes: D64.9 - Anemia, unspecified SNOMED: 251551930 Status: stable, progressing Assessment/Plan vent abx bp seizure control cbc bmp am ltach Subjective Constitutional: Reports: weakness Allergies: Coded Allergies: ASPIRIN (Verified Allergy, Unknown, 07/07/17) All Systems: reviewed and negative except above Subjective trach vent confused Objective Last 24 Hour Vital Signs Date Time Temp Pulse Resp B/P (MAP) Pulse Ox O2 Delivery O2 Flow Rate FiO2 09/14/18 07:28 82 22 35 09/14/18 04:46 77 20 35 09/14/18 04:00 35 09/14/18 04:00 Mechanical Ventilator 09/14/18 04:00 74 09/14/18 04:00 98.8 74 24 130/70 (90) 100 09/14/18 03:32 76 14 35 09/14/18 01:28 74 23 35 09/14/18 00:00 98.4 83 23 126/61 (82) 100 09/14/18 00:00 Mechanical Ventilator 09/14/18 00:00 65 09/13/18 23:02 77 19 35 09/13/18 21:25 82 24 35 09/13/18 20:00 Mechanical Ventilator 09/13/18 20:00 90 09/13/18 20:00 35 09/13/18 20:00 98.4 89 23 114/86 (95) 100 09/13/18 19:12 94 21 35 09/13/18 16:45 75 19 35 09/13/18 16:09 35 09/13/18 16:07 Mechanical Ventilator 09/13/18 16:00 98.8 97 24 129/76 (93) 100 09/13/18 16:00 97 09/13/18 14:42 66 25 35 09/13/18 13:12 82 26 35 09/13/18 12:00 85 09/13/18 12:00 35 09/13/18 12:00 98.1 82 26 139/94 (109) 98 09/13/18 12:00 Mechanical Ventilator 09/13/18 10:37 82 20 35 09/13/18 08:45 80 21 35 09/13/18 08:00 84 09/13/18 08:00 Mechanical Ventilator 09/13/18 08:00 35 09/13/18 08:00 98.2 61 22 120/64 (82) 100 Intake and Output 09/13/18 09/14/18 19:00 07:00 Intake Total 420 ml 592.5 ml Output Total 500 ml 250 ml Balance -80 ml 342.5 ml IV Total 300 ml 592.5 ml Other 120 ml Output Urine Total 500 ml 250 ml # Bowel Movements 2 Laboratory Tests 09/14/18 04:56: White Blood Count 13.2H, Red Blood Count 2.80L, Hemoglobin 8.4L, Hematocrit 26.4L, Mean Corpuscular Volume 94, Mean Corpuscular Hemoglobin 29.9, Mean Corpuscular Hemoglobin Concent 31.7L, Red Cell Distribution Width 13.8, Platelet Count 313, Mean Platelet Volume 5.9L, Neutrophils (%) (Auto) 65.5, Lymphocytes (%) (Auto) 18.1L, Monocytes (%) (Auto) 8.1, Eosinophils (%) (Auto) 7.2H, Basophils (%) (Auto) 1.1, Sodium Level [Pending], Potassium Level [Pending ], Chloride Level [Pending], Carbon Dioxide Level [Pending], Blood Urea Nitrogen [Pending], Creatinine [Pending], Estimat Glomerular Filtration Rate [ Pending], Glucose Level [Pending], Calcium Level [Pending], Phosphorus Level [ Pending], Magnesium Level [Pending], Total Bilirubin [Pending], Aspartate Amino Transf (AST/SGOT) [Pending], Alanine Aminotransferase (ALT/SGPT) [Pending], Alkaline Phosphatase [Pending], Total Protein [Pending], Albumin [Pending], Globulin [Pending] Height (Feet): 5 Height (Inches): 3.00 Weight (Pounds): 138 General Appearance: lethargic EENT: normal ENT inspection Neck: normal alignment Cardiovascular: normal peripheral pulses, normal rate, regular rhythm Respiratory/Chest: chest wall non-tender, decreased breath sounds Abdomen: normal bowel sounds, non tender, soft Extremities: normal inspection Edema: no edema noted Arm (L), no edema noted Arm (R), no edema noted Leg (L), no edema noted Leg (R), no edema noted Pedal (L), no edema noted Pedal (R), no edema noted Generalized Neurologic: motor weakness Skin: normal pigmentation, warm/dry Rl White DO Sep 14, 2018 07:53
[2018-09-14 08:00] VITALS: BP 126/62
[2018-09-14 08:05] LABS: ALANINE AMINOTRANSFERASE 18 U/L (12-78); ALBUMIN 2.9 G/DL (3.4-5.0); ALBUMIN/GLOBULIN RATIO 0.5 (1.0-2.7); ALKALINE PHOSPHATASE 104 U/L (46-116); ANION GAP 8 mmol/L (5-15); ASPARTATE AMINO TRANSFERASE 19 U/L (15-37); BILIRUBIN,TOTAL 0.4 MG/DL (0.2-1.0); BLOOD UREA NITROGEN 20 mg/dL (7-18); CALCIUM 9.5 MG/DL (8.5-10.1); CARBON DIOXIDE 28 MMOL/L (21-32); CHLORIDE 118 MMOL/L (98-107); CREATININE 1.5 MG/DL (0.55-1.30); PHOSPHORUS 2.5 MG/DL (2.5-4.9); SODIUM 154 MMOL/L (136-145)
[2018-09-14] MEDS: Pantoprazole Inj IV SCH (08:54)
[2018-09-14] MEDS: Docusate 100mg/10ml Liq GT SCH ×2 (08:54→13:37)
[2018-09-14] MEDS: Heparin 5000 units/ml inj SUBQ SCH (08:56)
--- NOTE | 2018-09-14 09:51 | NUR ---
NURSE NOTES: Dr. 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 I asked her for discharge clearance, but since sputum cx is still pending, Dr. umana stated that she will reevaluate the patient first before being discharged. Will inform Dr. White.
[2018-09-14] MEDS: D5NS 1,000 ML IV SCH (10:36)
--- NOTE | 2018-09-14 11:25 | General Surgery Progress Note ---
General Surgery-Progress Note Subjective Additional Comments no acute events. abd exam unchanged. +BM. leukocytosis Objective Last 24 Hour Vital Signs Date Time Temp Pulse Resp B/P (MAP) Pulse Ox O2 Delivery O2 Flow Rate FiO2 09/14/18 09:00 96 23 35 09/14/18 08:00 98.2 91 22 126/62 (83) 100 09/14/18 08:00 35 09/14/18 08:00 Mechanical Ventilator 09/14/18 07:52 86 09/14/18 07:28 82 22 35 09/14/18 04:46 77 20 35 09/14/18 04:00 35 09/14/18 04:00 Mechanical Ventilator 09/14/18 04:00 74 09/14/18 04:00 98.8 74 24 130/70 (90) 100 09/14/18 03:32 76 14 35 09/14/18 01:28 74 23 35 09/14/18 00:00 98.4 83 23 126/61 (82) 100 09/14/18 00:00 Mechanical Ventilator 09/14/18 00:00 65 09/13/18 23:02 77 19 35 09/13/18 21:25 82 24 35 09/13/18 20:00 Mechanical Ventilator 09/13/18 20:00 90 09/13/18 20:00 35 09/13/18 20:00 98.4 89 23 114/86 (95) 100 09/13/18 19:12 94 21 35 09/13/18 16:45 75 19 35 09/13/18 16:09 35 09/13/18 16:07 Mechanical Ventilator 09/13/18 16:00 98.8 97 24 129/76 (93) 100 09/13/18 16:00 97 09/13/18 14:42 66 25 35 09/13/18 13:12 82 26 35 09/13/18 12:00 85 09/13/18 12:00 35 09/13/18 12:00 98.1 82 26 139/94 (109) 98 09/13/18 12:00 Mechanical Ventilator I&O Intake and Output 09/13/18 09/14/18 18:59 06:59 Intake Total 420 ml 592.5 ml Output Total 500 ml 250 ml Balance -80 ml 342.5 ml IV Total 300 ml 592.5 ml Other 120 ml Output Urine Total 500 ml 250 ml # Bowel Movements 2 Dressing: other Wound: other Drains: other Cardiovascular: RSR Respiratory: decreased breath sounds Abdomen: soft, present bowel sounds, non-distended Extremities: other Laboratory Tests Test 09/14/18 04:56 White Blood Count 13.2 K/UL (4.8-10.8) H Red Blood Count 2.80 M/UL (4.20-5.40) L Hemoglobin 8.4 G/DL (12.0-16.0) L Hematocrit 26.4 % (37.0-47.0) L Mean Corpuscular Volume 94 FL (80-99) Mean Corpuscular Hemoglobin 29.9 PG (27.0-31.0) Mean Corpuscular Hemoglobin Concent 31.7 G/DL (32.0-36.0) L Red Cell Distribution Width 13.8 % (11.6-14.8) Platelet Count 313 K/UL (150-450) Mean Platelet Volume 5.9 FL (6.5-10.1) L Neutrophils (%) (Auto) 65.5 % (45.0-75.0) Lymphocytes (%) (Auto) 18.1 % (20.0-45.0) L Monocytes (%) (Auto) 8.1 % (1.0-10.0) Eosinophils (%) (Auto) 7.2 % (0.0-3.0) H Basophils (%) (Auto) 1.1 % (0.0-2.0) Sodium Level 154 MMOL/L (136-145) H Potassium Level 4.0 MMOL/L (3.5-5.1) Chloride Level 118 MMOL/L (98-107) H Carbon Dioxide Level 28 MMOL/L (21-32) Anion Gap 8 mmol/L (5-15) Blood Urea Nitrogen 20 mg/dL (7-18) H Creatinine 1.5 MG/DL (0.55-1.30) H Estimat Glomerular Filtration Rate mL/min (>60) Glucose Level 116 MG/DL (74-106) H Calcium Level 9.5 MG/DL (8.5-10.1) Phosphorus Level 2.5 MG/DL (2.5-4.9) Magnesium Level 2.6 MG/DL (1.8-2.4) H Total Bilirubin 0.4 MG/DL (0.2-1.0) Aspartate Amino Transf (AST/SGOT) 19 U/L (15-37) Alanine Aminotransferase (ALT/SGPT) 18 U/L (12-78) Alkaline Phosphatase 104 U/L (46-116) Total Protein 8.6 G/DL (6.4-8.2) H Albumin 2.9 G/DL (3.4-5.0) L Globulin 5.7 g/dL Albumin/Globulin Ratio 0.5 (1.0-2.7) L Plan Problems: (1) Ileus Assessment & Plan: 83F with multiple medical comorbidities currently admitted for evaluation of malfunctioning G tube. on CT noted to have ileus and fecal impaction. abdominal exam with mild distention. g tube in place some tympany but soft just received enema CT findings: Fecal impaction within the rectum. Patchy infiltrates at the lung bases. Consider pneumonia. Atherosclerotic disease Gastrostomy Broad-based ventral abdominal wall hernia. Gallstones. had enema with loose stool KUB okay -okay for feeds as tolerated -thank you. will follow with recs. (2) Fecal impaction in rectum Assessment & Plan: douglas valdez. hold on disimpaction Livan Dean Sep 14, 2018 11:25
--- NOTE | 2018-09-14 11:26 | GI Progress Note ---
Assessment/Plan Problems: (1) Ileus ICD Codes: K56.7 - Ileus, unspecified SNOMED: 860857890 (2) Fecal impaction in rectum ICD Codes: K56.41 - Fecal impaction SNOMED: 50561666 (3) Feeding by G-tube ICD Codes: Z93.1 - Gastrostomy status SNOMED: 359832806, 133212837 (4) Malfunction of gastrostomy tube ICD Codes: K94.23 - Gastrostomy malfunction SNOMED: 693690965 (5) Bowel obstruction ICD Codes: K56.609 - Unspecified intestinal obstruction, unspecified as to partial versus complete obstruction SNOMED: 05256277 (6) Anemia ICD Codes: D64.9 - Anemia, unspecified SNOMED: 495064822 Status: stable Status Narrative Discussed with Dr. Skinner Assessment/Plan CT AP reviewed >> Fecal impaction within the rectum, reported 2 bowel movements normocytic anemia OB stool negative Start GTFs per RD to goal mineral oil enema prn bowel regime of colace + miralax GT site care daily / prn Turn every 2 hours monitor H&H, prn transfusions ppi fu labs The patient was seen and examined at bedside and all new and available data was reviewed in the patients chart. I agree with the above findings, impression and plan. (Patient seen earlier today. Signature stamp does not reflect patient encounter time.). - Jad Skinner MD Subjective Subjective Limited Objective Last 24 Hour Vital Signs Date Time Temp Pulse Resp B/P (MAP) Pulse Ox O2 Delivery O2 Flow Rate FiO2 09/14/18 11:01 78 14 35 09/14/18 09:00 96 23 35 09/14/18 08:00 98.2 91 22 126/62 (83) 100 09/14/18 08:00 35 09/14/18 08:00 Mechanical Ventilator 09/14/18 07:52 86 09/14/18 07:28 82 22 35 09/14/18 04:46 77 20 35 09/14/18 04:00 35 09/14/18 04:00 Mechanical Ventilator 09/14/18 04:00 74 09/14/18 04:00 98.8 74 24 130/70 (90) 100 09/14/18 03:32 76 14 35 09/14/18 01:28 74 23 35 09/14/18 00:00 98.4 83 23 126/61 (82) 100 09/14/18 00:00 Mechanical Ventilator 09/14/18 00:00 65 09/13/18 23:02 77 19 35 09/13/18 21:25 82 24 35 09/13/18 20:00 Mechanical Ventilator 09/13/18 20:00 90 09/13/18 20:00 35 09/13/18 20:00 98.4 89 23 114/86 (95) 100 09/13/18 19:12 94 21 35 09/13/18 16:45 75 19 35 09/13/18 16:09 35 09/13/18 16:07 Mechanical Ventilator 09/13/18 16:00 98.8 97 24 129/76 (93) 100 09/13/18 16:00 97 09/13/18 14:42 66 25 35 09/13/18 13:12 82 26 35 09/13/18 12:00 85 09/13/18 12:00 35 09/13/18 12:00 98.1 82 26 139/94 (109) 98 09/13/18 12:00 Mechanical Ventilator Intake and Output 09/13/18 09/14/18 18:59 06:59 Intake Total 420 ml 592.5 ml Output Total 500 ml 250 ml Balance -80 ml 342.5 ml IV Total 300 ml 592.5 ml Other 120 ml Output Urine Total 500 ml 250 ml # Bowel Movements 2 Laboratory Tests Test 09/14/18 04:56 White Blood Count 13.2 K/UL (4.8-10.8) H Red Blood Count 2.80 M/UL (4.20-5.40) L Hemoglobin 8.4 G/DL (12.0-16.0) L Hematocrit 26.4 % (37.0-47.0) L Mean Corpuscular Volume 94 FL (80-99) Mean Corpuscular Hemoglobin 29.9 PG (27.0-31.0) Mean Corpuscular Hemoglobin Concent 31.7 G/DL (32.0-36.0) L Red Cell Distribution Width 13.8 % (11.6-14.8) Platelet Count 313 K/UL (150-450) Mean Platelet Volume 5.9 FL (6.5-10.1) L Neutrophils (%) (Auto) 65.5 % (45.0-75.0) Lymphocytes (%) (Auto) 18.1 % (20.0-45.0) L Monocytes (%) (Auto) 8.1 % (1.0-10.0) Eosinophils (%) (Auto) 7.2 % (0.0-3.0) H Basophils (%) (Auto) 1.1 % (0.0-2.0) Sodium Level 154 MMOL/L (136-145) H Potassium Level 4.0 MMOL/L (3.5-5.1) Chloride Level 118 MMOL/L (98-107) H Carbon Dioxide Level 28 MMOL/L (21-32) Anion Gap 8 mmol/L (5-15) Blood Urea Nitrogen 20 mg/dL (7-18) H Creatinine 1.5 MG/DL (0.55-1.30) H Estimat Glomerular Filtration Rate mL/min (>60) Glucose Level 116 MG/DL (74-106) H Calcium Level 9.5 MG/DL (8.5-10.1) Phosphorus Level 2.5 MG/DL (2.5-4.9) Magnesium Level 2.6 MG/DL (1.8-2.4) H Total Bilirubin 0.4 MG/DL (0.2-1.0) Aspartate Amino Transf (AST/SGOT) 19 U/L (15-37) Alanine Aminotransferase (ALT/SGPT) 18 U/L (12-78) Alkaline Phosphatase 104 U/L (46-116) Total Protein 8.6 G/DL (6.4-8.2) H Albumin 2.9 G/DL (3.4-5.0) L Globulin 5.7 g/dL Albumin/Globulin Ratio 0.5 (1.0-2.7) L Height (Feet): 5 Height (Inches): 3.00 Weight (Pounds): 138 General Appearance: no apparent distress Cardiovascular: normal rate Respiratory/Chest: other - Mechanical ventilator Abdominal Exam: GT site - Clean dry and intact Objective Reported 2 bowel movements Svetlana French NP Sep 14, 2018 11:26
--- NOTE | 2018-09-14 11:38 | NUR ---
RD ASSESSMENT & RECOMMENDATIONS SEE CARE ACTIVITY FOR COMPLETE ASSESSMENT DAILY ESTIMATED NEEDS: Needs based on Critical Care 61.7kg 22-28 kcals/kg 6775-7273 total kcals 1.2-2 g protein/kg 74-123 g total protein 25-30 mL/kg 5761-9233 total fluid mLs NUTRITION DIAGNOSIS: Swallowing difficulty R/T respiratory status, dysphagia as evidenced by pt w/ trach/vent dep, PEG dep, currently NPO. CURRENT TF:NPO ENTERAL NUTRITION RECOMMENDATIONS: Jevity 1.2 @ 60ml/hr x 22 hrs + Prosource 1pkt daily to provide 1320ml, 1584kcal, 73g + 11g prot, 1065ml free water - Once medically appropriate, initiate TF on Jevity 1.2 @ 20ml/hr x 6 hrs. - Advance 10ml q 4-6 hrs as tolerated to goal rate - HOB >30 degrees/ water flushes per MD - Add Prosource 1pkt daily to better meet protein needs. - Hold 1 hour before and after Synthroid med. WITHOUT SYNTHROID MED Jevity 1.2 @ 55ml/hr x 24 hrs + Prosource 1pkt daily to provide 1320ml, 1584kcal, 73g prot, 1065ml free water ADDITIONAL RECOMMENDATIONS: 1) Resume TF as medically appropriate 2) Monitor lytes, replete as needed 3) Pt on Synthroid WAITER, currently not added -> W/ Synthroid, TF to run for max 22 hours (hold 1 hr before and after Synthroid med)
--- NOTE | 2018-09-14 11:51 | Pulmonolgy Critical Care Note ---
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, consultants, patient case managerproposal manager - Objective Last 24 Hour Vital Signs Date Time Temp Pulse Resp B/P (MAP) Pulse Ox O2 Delivery O2 Flow Rate FiO2 09/14/18 11:01 78 14 35 09/14/18 09:00 96 23 35 09/14/18 08:00 98.2 91 22 126/62 (83) 100 09/14/18 08:00 35 09/14/18 08:00 Mechanical Ventilator 09/14/18 07:52 86 09/14/18 07:28 82 22 35 09/14/18 04:46 77 20 35 09/14/18 04:00 35 09/14/18 04:00 Mechanical Ventilator 09/14/18 04:00 74 09/14/18 04:00 98.8 74 24 130/70 (90) 100 09/14/18 03:32 76 14 35 09/14/18 01:28 74 23 35 09/14/18 00:00 98.4 83 23 126/61 (82) 100 09/14/18 00:00 Mechanical Ventilator 09/14/18 00:00 65 09/13/18 23:02 77 19 35 09/13/18 21:25 82 24 35 09/13/18 20:00 Mechanical Ventilator 09/13/18 20:00 90 09/13/18 20:00 35 09/13/18 20:00 98.4 89 23 114/86 (95) 100 09/13/18 19:12 94 21 35 09/13/18 16:45 75 19 35 09/13/18 16:09 35 09/13/18 16:07 Mechanical Ventilator 09/13/18 16:00 98.8 97 24 129/76 (93) 100 09/13/18 16:00 97 1/17/19 14:42 66 25 35 09/13/18 13:12 82 26 35 09/13/18 12:00 85 09/13/18 12:00 35 09/13/18 12:00 98.1 82 26 139/94 (109) 98 09/13/18 12:00 Mechanical Ventilator Status: awake Condition: critical HEENT: atraumatic Heart: HR/BP stable, regular Abdomen: non-tender Extremities: no C/C/E, edema Critical Care - Subjective ROS Limited/Unobtainable: No Condition: critical EKG Rhythm: Sinus Rhythm FI02: 35 Vent Support Breath Rate: 12 Vent Support Mode: AC Vent Tidal Volume: 450 Sputum Amount: Moderate PEEP: 5.0 PIP: 28 I&O: Intake and Output 09/13/18 09/14/18 18:59 06:59 Intake Total 420 ml 592.5 ml Output Total 500 ml 250 ml Balance -80 ml 342.5 ml IV Total 300 ml 592.5 ml Other 120 ml Output Urine Total 500 ml 250 ml # Bowel Movements 2 CXR: no change Labs: Laboratory Tests Test 09/14/18 04:56 White Blood Count 13.2 K/UL (4.8-10.8) H Red Blood Count 2.80 M/UL (4.20-5.40) L Hemoglobin 8.4 G/DL (12.0-16.0) L Hematocrit 26.4 % (37.0-47.0) L Mean Corpuscular Volume 94 FL (80-99) Mean Corpuscular Hemoglobin 29.9 PG (27.0-31.0) Mean Corpuscular Hemoglobin Concent 31.7 G/DL (32.0-36.0) L Red Cell Distribution Width 13.8 % (11.6-14.8) Platelet Count 313 K/UL (150-450) Mean Platelet Volume 5.9 FL (6.5-10.1) L Neutrophils (%) (Auto) 65.5 % (45.0-75.0) Lymphocytes (%) (Auto) 18.1 % (20.0-45.0) L Monocytes (%) (Auto) 8.1 % (1.0-10.0) Eosinophils (%) (Auto) 7.2 % (0.0-3.0) H Basophils (%) (Auto) 1.1 % (0.0-2.0) Sodium Level 154 MMOL/L (136-145) H Potassium Level 4.0 MMOL/L (3.5-5.1) Chloride Level 118 MMOL/L (98-107) H Carbon Dioxide Level 28 MMOL/L (21-32) Anion Gap 8 mmol/L (5-15) Blood Urea Nitrogen 20 mg/dL (7-18) H Creatinine 1.5 MG/DL (0.55-1.30) H Estimat Glomerular Filtration Rate mL/min (>60) Glucose Level 116 MG/DL (74-106) H Calcium Level 9.5 MG/DL (8.5-10.1) Phosphorus Level 2.5 MG/DL (2.5-4.9) Magnesium Level 2.6 MG/DL (1.8-2.4) H Total Bilirubin 0.4 MG/DL (0.2-1.0) Aspartate Amino Transf (AST/SGOT) 19 U/L (15-37) Alanine Aminotransferase (ALT/SGPT) 18 U/L (12-78) Alkaline Phosphatase 104 U/L (46-116) Total Protein 8.6 G/DL (6.4-8.2) H Albumin 2.9 G/DL (3.4-5.0) L Globulin 5.7 g/dL Albumin/Globulin Ratio 0.5 (1.0-2.7) L Sue Yu MD Sep 14, 2018 11:51
[2018-09-14 12:00] VITALS: BP 109/51
--- NOTE | 2018-09-14 13:16 | NUR ---
RADIOLOGY DEPT CHEST X-RAY DONE.-P.DYE
[2018-09-14] MEDS: Mineral Oil 30ml ud ORAL PRN (13:37)
--- NOTE | 2018-09-14 14:00 | NUR ---
NURSE NOTES: Dr. Umana informed me that she would like to keep the patient until sputum culture is resulted. Dr. Gigi KOWALSKI for discharge
--- NOTE | 2018-09-14 14:32 | Infectious Diseases Prog Note ---
Assessment/Plan Assessment/Plan Abx: IV Vancomycin 09/11- Assessment: Probable PNA (increased secretions, leukocytosis) -CXR: Basilar atelectasis versus infiltrate. Correlate clinically.Query mild CHF sp cx p GT malfunction -CT abd/p: Fecal impaction within the rectum. Patchy infiltrates at the lung bases. Consider pneumonia. Atherosclerotic disease. Gastrostomy. Broad-based ventral abdominal wall hernia. Gallstones. Afebrile Mild leukocytosis, increaed JAMES, improving Hx of recurrent PNA (VAP/HAP) -10/2017 MDR PSA, H. flu -sp cx MDR ACB 07/2017, s/p Rx Hypertension. History of seizure disorder Ventilator-dependent respiratory failure History of lower extremity DVT History of PEG and trach placement dementia quadriplegic COPD [facility] resident Plan: -Cont empiric IV Vanco and Zosyn #2 for PNA pending sp cx. -09/11 SP IV Vancomycin #1 -f/u cx -Monitor CBC/CMP, temperatures -trach/peg care -aspiration precautions -GI f.u Thank you for this consultation. Will continue to follow along with you. Discussed with RN Subjective Allergies: Coded Allergies: ASPIRIN (Verified Allergy, Unknown, 07/07/17) Subjective afebrle mild leukocytosis, increased mod secretions Objective Vital Signs Last 24 Hour Vital Signs Date Time Temp Pulse Resp B/P (MAP) Pulse Ox O2 Delivery O2 Flow Rate FiO2 09/14/18 13:24 85 21 35 09/14/18 12:00 99.4 78 16 109/51 (70) 100 09/14/18 12:00 35 09/14/18 12:00 Mechanical Ventilator 09/14/18 11:01 78 14 35 09/14/18 09:00 96 23 35 09/14/18 08:00 98.2 91 22 126/62 (83) 100 09/14/18 08:00 35 09/14/18 08:00 Mechanical Ventilator 09/14/18 07:52 86 09/14/18 07:28 82 22 35 09/14/18 04:46 77 20 35 09/14/18 04:00 35 09/14/18 04:00 Mechanical Ventilator 09/14/18 04:00 74 09/14/18 04:00 98.8 74 24 130/70 (90) 100 09/14/18 03:32 76 14 35 09/14/18 01:28 74 23 35 09/14/18 00:00 98.4 83 23 126/61 (82) 100 09/14/18 00:00 Mechanical Ventilator 09/14/18 00:00 65 09/13/18 23:02 77 19 35 09/13/18 21:25 82 24 35 09/13/18 20:00 Mechanical Ventilator 09/13/18 20:00 90 09/13/18 20:00 35 09/13/18 20:00 98.4 89 23 114/86 (95) 100 09/13/18 19:12 94 21 35 09/13/18 16:45 75 19 35 09/13/18 16:09 35 09/13/18 16:07 Mechanical Ventilator 09/13/18 16:00 98.8 97 24 129/76 (93) 100 09/13/18 16:00 97 09/13/18 14:42 66 25 35 Height (Feet): 5 Height (Inches): 3.00 Weight (Pounds): 138 Objective General Appearance: WD/WN, no apparent distress Lines, tubes and drains: peripheral HEENT: normocephalic, atraumatic Neck: non-tender, normal alignment Respiratory/Chest: chest wall non-tender, lungs clear, decreased breath sounds Cardiovascular/Chest: normal peripheral pulses Abdomen: normal bowel sounds, non tender 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 II-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 grossly normal Laboratory Tests Test 09/14/18 04:56 White Blood Count 13.2 K/UL (4.8-10.8) H Red Blood Count 2.80 M/UL (4.20-5.40) L Hemoglobin 8.4 G/DL (12.0-16.0) L Hematocrit 26.4 % (37.0-47.0) L Mean Corpuscular Volume 94 FL (80-99) Mean Corpuscular Hemoglobin 29.9 PG (27.0-31.0) Mean Corpuscular Hemoglobin Concent 31.7 G/DL (32.0-36.0) L Red Cell Distribution Width 13.8 % (11.6-14.8) Platelet Count 313 K/UL (150-450) Mean Platelet Volume 5.9 FL (6.5-10.1) L Neutrophils (%) (Auto) 65.5 % (45.0-75.0) Lymphocytes (%) (Auto) 18.1 % (20.0-45.0) L Monocytes (%) (Auto) 8.1 % (1.0-10.0) Eosinophils (%) (Auto) 7.2 % (0.0-3.0) H Basophils (%) (Auto) 1.1 % (0.0-2.0) Sodium Level 154 MMOL/L (136-145) H Potassium Level 4.0 MMOL/L (3.5-5.1) Chloride Level 118 MMOL/L (98-107) H Carbon Dioxide Level 28 MMOL/L (21-32) Anion Gap 8 mmol/L (5-15) Blood Urea Nitrogen 20 mg/dL (7-18) H Creatinine 1.5 MG/DL (0.55-1.30) H Estimat Glomerular Filtration Rate mL/min (>60) Glucose Level 116 MG/DL (74-106) H Calcium Level 9.5 MG/DL (8.5-10.1) Phosphorus Level 2.5 MG/DL (2.5-4.9) Magnesium Level 2.6 MG/DL (1.8-2.4) H Total Bilirubin 0.4 MG/DL (0.2-1.0) Aspartate Amino Transf (AST/SGOT) 19 U/L (15-37) Alanine Aminotransferase (ALT/SGPT) 18 U/L (12-78) Alkaline Phosphatase 104 U/L (46-116) Total Protein 8.6 G/DL (6.4-8.2) H Albumin 2.9 G/DL (3.4-5.0) L Globulin 5.7 g/dL Albumin/Globulin Ratio 0.5 (1.0-2.7) L Current Medications Medications (Trade) Dose Ordered Sig/Torsten Route PRN Reason Start Time Stop Time Status Last Admin Dose Admin Acetaminophen (Tylenol) 650 mg Q4H PRN ORAL FEVER 09/11/18 07:30 10/11/18 07:29 Albuterol/ Ipratropium (Albuterol/ Ipratropium) 3 ml EVERY 4 HOURS PRN HHN Shortness of Breath 09/11/18 07:30 09/16/18 07:29 Dextrose (Dextrose 50%) 25 ml Q30M PRN IV Hypoglycemia 09/11/18 08:30 10/11/18 08:23 Dextrose (Dextrose 50%) 50 ml Q30M PRN IV hypoglycemia 09/11/18 08:30 10/11/18 08:29 Dextrose/Sodium Chloride 1,000 ml @ 75 mls/hr [id number] IV 09/11/18 15:45 10/11/18 15:44 09/14/18 10:36 Docusate Sodium (Colace) 100 mg THREE TIMES A DAY GT 09/11/18 18:00 10/11/18 17:59 09/14/18 13:37 Heparin Sodium (Porcine) (Heparin 5000 units/ml) 5,000 units EVERY 12 HOURS SUBQ 09/11/18 09:00 10/11/18 08:59 09/14/18 08:56 Levothyroxine Sodium (Synthroid) 112 mcg DAILY@0630 GT 09/15/18 06:30 10/15/18 06:29 Lorazepam (Ativan 2mg/ml 1ml) 2 mg Q2H PRN IV seizure 09/12/18 13:45 09/19/18 13:44 Mineral Oil (Mineral Oil) 30 ml DAILYPRN PRN ORAL Constipation 09/11/18 10:00 10/11/18 09:59 09/14/18 13:37 Morphine Sulfate (Morphine Sulfate) 4 mg EVERY 4 HOURS PRN IVP Severe Pain (Pain Scale 7-10) 09/11/18 07:30 09/18/18 07:29 Ondansetron HCl (Zofran) 4 mg Q6H PRN IVP Nausea & Vomiting 09/11/18 07:30 10/11/18 07:29 Pantoprazole (Protonix) 40 mg Q12HR IV 09/11/18 21:00 10/11/18 08:59 09/14/18 08:54 Piperacillin Sod/ Tazobactam Sod 3.375 gm/Dextrose 110 ml @ 27.5 mls/hr EVERY 8 HOURS IVPB 09/13/18 16:00 09/18/18 15:59 09/14/18 13:38 Polyethylene Glycol (Miralax) 17 gm BEDTIME ORAL 09/11/18 21:00 10/11/18 20:59 09/13/18 22:33 Polyethylene Glycol (Miralax) 17 gm DAILYPRN PRN ORAL Constipation 09/11/18 07:30 10/11/18 07:29 Trazodone HCl (Desyrel) 50 mg BEDTIME PRN GT insomnia 09/11/18 07:30 10/11/18 07:29 Vancomycin HCl (Vanco rx to dose) 1 ea DAILY PRN MISC Per rx protocol 09/13/18 14:45 10/13/18 14:44 Vancomycin/Sodium Chloride 250 ml @ 166.667 mls/hr Q24H IVPB 09/14/18 20:00 09/19/18 19:59 Yane Umana M.D. Sep 14, 2018 14:31
--- NOTE | 2018-09-14 14:38 | Nephrology Progress Note ---
Assessment/Plan Problem List: (1) Chronic respiratory failure (2) Fecal impaction (3) Anemia (4) Cardiomyopathy (5) Acute on chronic renal failure Assessment Renal failure- Acute on Chronic Acute and chronic respiratory failure Nosocomial pneumonia Fecal impaction / Bowel obstruction Chronic vegetative state Cardiomyopathy Seizure disorder Plan Plan: free water Hydrate Anemia bryant Urine studies Avoid Nephrotoxics Laxatives hold synthroid as TSH is LOW Per ID Subjective ROS Limited/Unobtainable: Yes Objective Objective Last 24 Hour Vital Signs Date Time Temp Pulse Resp B/P (MAP) Pulse Ox O2 Delivery O2 Flow Rate FiO2 09/14/18 13:24 85 21 35 09/14/18 12:00 99.4 78 16 109/51 (70) 100 09/14/18 12:00 35 09/14/18 12:00 Mechanical Ventilator 09/14/18 11:01 78 14 35 09/14/18 09:00 96 23 35 09/14/18 08:00 98.2 91 22 126/62 (83) 100 09/14/18 08:00 35 09/14/18 08:00 Mechanical Ventilator 09/14/18 07:52 86 09/14/18 07:28 82 22 35 09/14/18 04:46 77 20 35 09/14/18 04:00 35 09/14/18 04:00 Mechanical Ventilator 09/14/18 04:00 74 09/14/18 04:00 98.8 74 24 130/70 (90) 100 09/14/18 03:32 76 14 35 09/14/18 01:28 74 23 35 09/14/18 00:00 98.4 83 23 126/61 (82) 100 09/14/18 00:00 Mechanical Ventilator 09/14/18 00:00 65 09/13/18 23:02 77 19 35 09/13/18 21:25 82 24 35 09/13/18 20:00 Mechanical Ventilator 09/13/18 20:00 90 09/13/18 20:00 35 09/13/18 20:00 98.4 89 23 114/86 (95) 100 09/13/18 19:12 94 21 35 09/13/18 16:45 75 19 35 09/13/18 16:09 35 09/13/18 16:07 Mechanical Ventilator 09/13/18 16:00 98.8 97 24 129/76 (93) 100 09/13/18 16:00 97 09/13/18 14:42 66 25 35 Intake and Output 09/13/18 09/14/18 18:59 06:59 Intake Total 420 ml 592.5 ml Output Total 500 ml 250 ml Balance -80 ml 342.5 ml IV Total 300 ml 592.5 ml Other 120 ml Output Urine Total 500 ml 250 ml # Bowel Movements 2 Laboratory Tests 09/14/18 04:56: White Blood Count 13.2H, Red Blood Count 2.80L, Hemoglobin 8.4L, Hematocrit 26.4L, Mean Corpuscular Volume 94, Mean Corpuscular Hemoglobin 29.9, Mean Corpuscular Hemoglobin Concent 31.7L, Red Cell Distribution Width 13.8, Platelet Count 313, Mean Platelet Volume 5.9L, Neutrophils (%) (Auto) 65.5, Lymphocytes (%) (Auto) 18.1L, Monocytes (%) (Auto) 8.1, Eosinophils (%) (Auto) 7.2H, Basophils (%) (Auto) 1.1, Sodium Level 154H, Potassium Level 4.0, Chloride Level 118H, Carbon Dioxide Level 28, Anion Gap 8, Blood Urea Nitrogen 20H, Creatinine 1.5H, Estimat Glomerular Filtration Rate , Glucose Level 116H, Calcium Level 9.5, Phosphorus Level 2.5, Magnesium Level 2.6H, Total Bilirubin 0.4, Aspartate Amino Transf (AST/SGOT) 19, Alanine Aminotransferase (ALT/SGPT) 18, Alkaline Phosphatase 104, Total Protein 8.6H, Albumin 2.9L, Globulin 5.7, Albumin/Globulin Ratio 0.5L Height (Feet): 5 Height (Inches): 3.00 Weight (Pounds): 138 General Appearance: no apparent distress Cardiovascular: normal rate Respiratory/Chest: decreased breath sounds Abdomen: soft, other - PEG Objective no change Tono Case MD Sep 14, 2018 14:38
--- NOTE | 2018-09-14 15:28 | Diagnostic Imaging Report ---
Indication: Dyspnea Comparison: 09/13/2018 A single view chest radiograph was obtained. Findings: Interstitial opacities again the demonstrated slightly worse in the right lung tracheostomy noted. Heart size is stable. IMPRESSION: No change from the prior day
--- NOTE | 2018-09-14 15:49 | NUR ---
CASE MANAGEMENT: REVIEW SI: ILEUS . FECAL IMPACTION . MALFUNCTIONING GASTRIC TUBE T 99.4 HR 78 RR 16 BP 109/51 SAT 100% MECH VENT FIO2 35 WBC 13.2 H/H 8.4/26.4 IS: VANCO IV Q24HR ZOSYN IV Q8HR D5 NS IVF @75ML/HR STEP DOWN UNIT STATUS DCP: PATIENT IS FROM [facility]
--- NOTE | 2018-09-14 15:54 | NUR ---
CASE MANAGEMENT: DCPNOTE UPON DISCHARGE PATIENT WILL TRANSFER TO [facility] [phone] SKILLED [address]OM [address] [place] [phone] IN AGREEMENT WITH PATIENT TRANSFERRING TO THIS FACILITY TRANSPORTATION VIA [facility] [id number] ETA
[2018-09-14 16:00] VITALS: BP 121/80
--- NOTE | 2018-09-14 16:00 | NUR ---
NURSE NOTES: Dr. Umana in the unit and received an Ok for discharged and to continue current Zosyn x5 days.
[2018-09-14] MEDS ORDERED: ZOSYN 3.3753.375 GM IVPB (16:41)
--- NOTE | 2018-09-14 17:00 | NUR ---
NURSE NOTES: Gave report to Kierra, Registered Charge Nurse at [facility].
--- NOTE | 2018-09-14 17:30 | NUR ---
NURSE NOTES: Ambulance here and gave report to RT Ronny.
--- NOTE | 2018-09-14 18:02 | NUR ---
Discharge: Patient is being discharged from medical care. Ambulance personnel are here. Patient in bed and obtunded, nonverbal. After care instructions were given and report given to RT Ronny. All medical devices such as IV and ID band were removed. Patient was transported out with the Ambulance Personnel.
[2018-09-14] MEDS ORDERED: D5NS 1000ml IV ONE (18:03)
[2018-09-14] MEDS ORDERED: Tubing IV Secondary IV ONE (18:03)
[2018-09-14] MEDS ORDERED: Vancomycin 750mg/NS 250ml IVPB SCH (20:00)
--- NOTE | 2018-09-16 13:11 | Discharge Summary ---
Discharge Summary Discharge Summary _ DATE OF ADMISSION: 09/11/2018 DATE OF DISCHARGE: 09/14/2018 DISCHARGED BY: Dr. White REASON FOR ADMISSION: 83 years old female with history of chronic ventilator dependent respiratory failure, tracheostomy status, dysphagia, G-tube feeding, quadriplegia bedbound , dementia , was sent from the long term facility with chief complaint of G-tube malfunction. Vital signs were stable upon presentation. Laboratory workup intiially revealed no leukocytosis , hemoglobin 10.2 hematocrit 31.4. Chemistry reveal evidence of renal failure BUN 57, creatinine 1.7. Urinalysis revealed evidence of pyuria and leukocyte esterase , but only few bacteria . Abdominal x-ray revealed no acute findings. CT of the abdomen and pelvis revealed fecal impaction. Patchy infiltrates at the lung bases, probably e pneumonia. Gastrostomy tube. Abdominal wall hernia. Gallstones. Atherosclerotic disease. Patient was admitted for further management. CONSULTANTS: pulmonary Dr. Yu ID specialist Dr. Slater GI specialist Dr. Skinner wildlife refuge specialist Dr. Case surgery Dr. Dean [facility] COURSE: Patient admitted to direct observational unit. Ventilator support and pulmonary toilet provided. Tracheostomy care provided. Patient initially was kept n.p.o. and started on the IV fluids and empiric antibiotics. GI and ID evaluations were requested. Patient was on antibiotic for possible pneumonia. Patient was follow-up with chest x-ray. FiO2 titrated to keep pulse oximetry above 90-90%. No signs of respiratory distress on current ventilator settings . Patient was noted with with leukocytosis and low-grade fever. Infectious disease specialist recommended to continue antibiotic until cultures available for further recommendation. Venous duplex bilateral lower extremity revealed recanalized chronic thrombus right upper lower extremity common femoral vein. Left lower extremity revealed no evidence of DVT. Echocardiogram revealed preserved ejection fraction 55-60%. No evidence of wall motion abnormality. Mild left ventricular hypertrophy. Right ventricular systolic pressure of 46 consistent with moderate pulmonary hypertension. GI closely followed. Meticulous bowel regimen instituted. Patient had subsequently was able to have bowel movement. Surgeon closely followed. Patient was followed up with KUB. Abdominal exam was benign with mild distention. Per surgeon, bowel regimen was successful and no need for manual disimpaction. No need for surgical intervention. Patient slowly started on tube feeding as per registered dietitian recommendation with strict aspiration precautions. Tube feeding rate was slowly increased to recommended goal. G-tube site care provided. Hemoglobin hematocrit were closely monitored with goal to keep hemoglobin above 7. Prior to discharge hemoglobin 8.4, hematocrit 26.4. Stool for occult blood was negative. Anemia workup was consistent with anemia of chronic disease and elevated ferritin 547. Elevated B12 and folate level. No need for transfusion at this admission. GI prophylaxis with PPI provided. Appliance [employer]ter [employer] Refinisher closely followed. Renal parameters and electrolytes were closely monitored. Electrolytes corrected as needed. Nephrotoxic were avoided. Prior to discharge BUN 20, creatinine 1.5. DVT prophylaxis provided. Supportive care provided. No evidence of seizure activity while in the hospital. FINAL DIAGNOSES: Acute on chronic respiratory failure, Nosocomial pneumonia Acute on chronic renal failure Possible acute tubular necrosis Fecal impaction-resolved Possible bowel obstruction-resolved Likely ileus-resolved Dysphagia, G-tube feeding Malfunctioning of gastrostomy tube-resolved Anemia Seizure disorder Chronic vegetative state DISCHARGE MEDICATIONS: See Medication Reconciliation list. DISCHARGE INSTRUCTIONS: Patient was transferred to [facility] for further management . Public guardian in agreement with transfer. Follow-up with medical doctor at the facility I have been assigned to dictate discharge summary for this account. I was not involved in the patient's management. Tatiana Ramos NP Sep 16, 2018 13:11
== END 2018-09-14 18:04 | DRG 393 ==
LOC: EDUNIT# 01:25 → EDBD 01:25 → EMR 01:43 → EDBEDREQ 02:37 → 2W 02:39 → EDBEDREQ 04:58
PROC: 5A1945Z Respiratory Ventilation, 24-96 Consecutive Hours (ICD-10-PCS; principal; 2018-09-11)
DX: K94.23 Gastrostomy malfunction (principal); G82.50 Quadriplegia, unspecified; J96.20 Acute and chronic respiratory failure, unspecified whether with hypoxia or hypercapnia; J18.9 Pneumonia, unspecified organism; N17.0 Acute kidney failure with tubular necrosis; K56.7 Ileus, unspecified; Z99.11 Dependence on respirator [ventilator] status; R40.3 Persistent vegetative state; I42.9 Cardiomyopathy, unspecified; N39.0 Urinary tract infection, site not specified; Y83.3 Surgical operation with formation of external stoma as the cause of abnormal reaction of the patient, or of later complication, without mention of misadventure at the time of the procedure; K56.41 Fecal impaction; R13.10 Dysphagia, unspecified; Y95 Nosocomial condition; Z43.0 Encounter for attention to tracheostomy; Z88.6 Allergy status to analgesic agent; E03.9 Hypothyroidism, unspecified; K43.9 Ventral hernia without obstruction or gangrene; G40.909 Epilepsy, unspecified, not intractable, without status epilepticus; J44.9 Chronic obstructive pulmonary disease, unspecified
CPT/HCPCS: 36415; 71045; 74018; 74176; 80048; 80053; 80061; 80069; 81001; 82270; 82378; 82550; 82607; 82728; 82746; 82977; 83036; 83540; 83550; 83735; 83880; 84100; 84300; 84439; 84443; 84484; 84550; 85025; 85044; 85610; 85730; 86140; 87081; 93306; 93970; 94002; 94003; 94664; 99285

== ENCOUNTER 2018-12-21 18:15 | Inpatient (IN) | payer MEDICARE, OTHER, MEDICAID ==
[~2018-12-21] VITALS: Ht 165.1 cm; Wt 61.7 kg
[~2018-12-21 18:15] MED LIST changes: +ACETAMINOPHEN500 MG ORAL; +COLACE100 MG ORAL; +HEPARIN2000 UNIT/ IV; +HIBICLENS118 ML PO; -HIBICLENS118 ML TP; +KLONOPIN0.5 MG ORAL; +PROTONIX40 MG GT; +SYNTHROID112 MCG GT; +ZOSYN 3.3753.375 GM IVPB
--- NOTE | 2018-12-21 18:15 | NUR ---
ED Nurse Note: brought in by Akua Chavis due to respiratory distress, started when the staffs at SNF changed trach to smaller size around 30min prior to the arrival. PT started having facila swelling and desated. Was being bagged upon the arrival, O2 sat of 82%. ERMD at the bedside. No gag reflex. Per ERMD, will intubate at this time. RT at the bedside.
--- NOTE | 2018-12-21 18:28 | NUR ---
ED Nurse Note: intubated by ERMD, no meds given due to no gag reflex. position at lip at 26cm, tube 7mm, AC 14 TV 400 Fio2 100%, PEEP 5. Addendum: 12/21/18 at 1900 by [email or web address] ED Nurse Note: intubated by ERMD, no meds given due to no gag reflex. position at lip at 26cm, tube 7mm, received verbal order for AC 14 TV 500 Fio2 100%, PEEP 5. O2 sat of 100%
[2018-12-21 18:34] VITALS: BP 124/75
[2018-12-21 18:47] LABS: HEMATOCRIT 29.6 % (37.0-47.0); HEMOGLOBIN 9.5 G/DL (12.0-16.0); MEAN CORPUSCULAR VOLUME 92 FL (80-99); PLATELET COUNT 395 K/UL (150-450); RED CELL DISTRIBUTION WIDTH 13.2 % (11.6-14.8)
[2018-12-21 18:51] LABS: WHITE BLOOD COUNT 25.9 K/UL (4.8-10.8)
--- NOTE | 2018-12-21 18:51 | NUR ---
ED Nurse Note: all blood specimens with blood culture and lactic sent down to the lab.
[2018-12-21 18:54] LABS: INR 1.1 (0.9-1.1)
[2018-12-21 18:55] LABS: ANION GAP 7 mmol/L (5-15); BLOOD UREA NITROGEN 61 mg/dL (7-18); CALCIUM 10.3 MG/DL (8.5-10.1); CARBON DIOXIDE 31 MMOL/L (21-32); CHLORIDE 103 MMOL/L (98-107); CREATININE 1.8 MG/DL (0.55-1.30); POTASSIUM 4.6 MMOL/L (3.5-5.1); SODIUM 141 MMOL/L (136-145)
--- NOTE | 2018-12-21 19:05 | NUR ---
HAND-OFF: Report given to RONDA Mcelroy. No s/s of distress. Endorsed to RONDA Mcelroy that pt needs urine sample.
[2018-12-21 19:08] LABS: ALANINE AMINOTRANSFERASE 29 U/L (12-78); ALBUMIN/GLOBULIN RATIO 0.4 (1.0-2.7); ALKALINE PHOSPHATASE 121 U/L (46-116); ASPARTATE AMINO TRANSFERASE 32 U/L (15-37); BILIRUBIN,TOTAL 0.2 MG/DL (0.2-1.0); CKMB 1.1 NG/ML (0.0-3.6); CREATINE KINASE 49 U/L (26-308)
[2018-12-21] MEDS ORDERED: Vancomycin 1.5 GM in NS 275 ML IVPB ONE (19:15)
[2018-12-21] MEDS ORDERED: Piperacillin/Tazobactam 4.5 GM in NS 110 ML IVPB ONE (19:15)
[2018-12-21] MEDS ORDERED: HYDROXYZINE HCL10 M1 GT (20:15)
[2018-12-21] MEDS ORDERED: AMIODARONE HCL400 M1 GT (20:15)
[2018-12-21] MEDS ORDERED: FLEET ENEMA133 ML RECTAL (20:18)
[2018-12-21] MEDS ORDERED: VITAMIN D1000 UNI1 GT (20:34)
[2018-12-21] MEDS ORDERED: ACETAMINOPHEN325 M1 GT (20:34)
[2018-12-21] MEDS ORDERED: MELATONIN1 M1 GT (20:34)
--- NOTE | 2018-12-21 20:41 | Emergency Room Report ---
History of Present Illness General Chief Complaint: Dyspnea/Respdistress Source: Patient Present Illness HPI Patient has a history of encephalopathy. Patient is G-tube dependent. Patient has a tracheostomy. Apparently patient uses to trach at times. Patient was noted to have acute desaturation. The trach was replaced. Unfortunately after replacing the tracheostomy patient apparently developed acute onset of crepitus throughout the face and body. Because of this patient also apparently had desaturations of O2 and was sent here for further evaluation. On arrival the tracheostomy tube was already removed. Patient was being ventilated with a mask by paramedics. Symptoms noted to be highly severe critical as patient's O2 saturation was low on arrival and approximately 80s. No further history is available other than the history obtained per the paramedics as patient is nonverbal. Symptoms noted to be severe. No other modifying factors. No other associated signs and symptoms. No other complaints were noted. Allergies: Coded Allergies: ASPIRIN (Verified Allergy, Unknown, 07/07/17) Patient History Past Medical History: HTN, arrhyth, COPD, dementia, other - G-tube PMH Narrative Encephalopathy quadriplegia Past Surgical History: other - Tracheostomy, G-tube Social History Narrative Patient stays at a group home facility Now: No Reviewed Nursing Documentation: PMH: Agreed; PSxH: Agreed Nursing Documentation-PMH Past Medical History: No History, Except For Hx Cardiac Problems: Yes - Arrythmia Hx Hypertension: Yes Hx COPD: Yes Hx Cancer: No Hx Gastrointestinal Problems: Yes - G-tube Hx Dialysis: No Hx Neurological Problems: Yes - Encephalopathy, Qudrplegia Hx Cerebrovascular Accident: Yes Hx Dementia: Yes Hx Seizures: Yes - epilepsy Hx Epilepsy: Yes Review of Systems All Other Systems: limited - Poor mental status Physical Exam Vital Signs Date Time Temp Pulse Resp B/P (MAP) Pulse Ox O2 Delivery O2 Flow Rate FiO2 12/21/18 18:14 120 18 177/88 98 Ambu-Bag 12/21/18 18:28 100 12/21/18 18:34 98.0 Sp02 EP Interpretation: reviewed, normal General Appearance: severe distress, lethargic, obese, Stupor Head: atraumatic Eyes: bilateral eye normal inspection ENT: moist mucus membranes Neck: supple Respiratory: respiratory distress, decreased breath sounds Cardiovascular #1: tachycardia Gastrointestinal: distended - G-tube in place Genitourinary: no CVA tenderness Musculoskeletal: other - Contractures lower extremity Neurologic: other - Unable to assess due to patient poor mental status Psychiatric: other - Unable to assess patient unconscious Skin: diaphoresis Procedures Critical Care Time Critical Care Time Patient had a critical medical condition which untreated could potentially result in life or limb threatening injury. Total critical care time excluding procedures was approximately 75 minutes. Chest Tube Chest Tube #1: Consent: Emergent Chest Tube Location: mid axillary line - Right side Size of Maltese Tube (cm): 28 Chest Tube Procedure: betadine prep, sterile drapes applied, sterile dressing applied Anesthesia: 1% Lidocaine Volume Anesthetic (ccs): 10 Pereira of Air Crow Wing: Yes Number of Attempts: One Tube Drainage: No drainage. Tube Sutured to Skin: Yes Post Procedure CXR?: Yes Patient Tolerated: Well Complications: None Chest Tube #2: Consent: Emergent Chest Tube Location: mid axillary line Size of Maltese Tube (cm): 28 Chest Tube Procedure: betadine prep, sterile drapes applied, sterile dressing applied Anesthesia: 1% Lidocaine Volume Anesthetic (ccs): 10 Pereira of Air Crow Wing: Yes Number of Attempts: One Tube Drainage: No drainage she Tube Sutured to Skin: Yes Post Procedure CXR?: Yes Patient Tolerated: Well Complications: None Central Line Central Line : Consent: Emergent Central Line Lumen: triple Maximal Sterile Barrier Tech: yes cap, yes mask, yes sterile gown, yes sterile gloves, yes large sterile sheet, yes hand hygiene, yes chlorhexidine prep Central Line Postion: femoral (R) - 1 attempt unsuccessful. Site abandoned. , femoral (L) - 1 attempt successful. No complications. Anesthesia: Lidocaine cc's of anesthesia: 5 Central Line Post Position: sutured, good blood return Attempts: Other - Patient require 2 attempts. Initial attempt on right groin was unsuccessful. This was abandoned and left groin was placed. One attempt and was successful. Patient Tolerated: Well Complications: None Intubation Intubation : Consent: Emergent Intubation Method: orotracheal Tube Size (cm): 7.0 Medications: Other - Patient was altered this is a awake intubation as patient was noted to be a difficult intubation with concern for failed airway Breath Sounds after Intubation: equal Intubation Complications: no complications Post Intubation Xray: Yes Attempts: Other - Initial attempt with glide scope was unsuccessful. Secondary attempt performed with direct visualization and a bougie. This was successful Patient Tolerated: Well Complications: None Medical Decision Making Diagnostic Impression: Primary Impression: Acute and chronic respiratory failure Additional Impressions: Pneumomediastinum Hypoxia Pneumonia Pneumothorax ER Course Patient presents to the emergency department today with acute respiratory distress. There is a stoma from the tracheostomy. Unfortunately patient was being ventilated was very difficult to ventilate. Patient apparently also had crepitus throughout the body involving her face and neck consistent with likely a failed tracheostomy. No further history is available. Patient differential diagnosis include pneumothorax acute pneumonia acute CHF hypoxia just name a few. Given the severity of the patient's presentation I felt this is a highly complex patient. This patient required extensive workup. Patient's laboratory work-up is concerning for pneumonia. Chest x-ray shows possible infiltrates. Blood cultures are obtained patient's lactic acid level was normal blood pressure was stable. Therefore patient did not require IV fluid bolus. The patient was started on IV antibiotics broad-spectrum. Case was discussed with patient's primary care physician Dr. Rl Figueroa. Case was also discussed with Dr ni for admission. Patient will be admitted to ICU for further treatment. Because of the concern for possible pneumothorax on the chest x-ray CT scan will be obtained. CT scan confirms the presence of a pneumothorax. Therefore patient required insertion of bilateral chest tubes. Bilateral chest tubes were placed under sterile conditions. There is no complications. Refer to procedure note. Repeat chest x-ray shows the chest tubes to be in good position and lungs are inflated. Unfortunately after reinflation of the lungs patient's blood pressure decreased. Because the patient was given fluid boluses with good response to lower blood pressure. Patient will be admitted to the ICU for further treatment. Labs Test 12/21/18 18:21 12/21/18 18:35 12/21/18 19:00 White Blood Count 25.9 K/UL (4.8-10.8) Red Blood Count 3.20 M/UL (4.20-5.40) Hemoglobin 9.5 G/DL (12.0-16.0) Hematocrit 29.6 % (37.0-47.0) Mean Corpuscular Volume 92 FL (80-99) Mean Corpuscular Hemoglobin 29.6 PG (27.0-31.0) Mean Corpuscular Hemoglobin Concent 32.1 G/DL (32.0-36.0) Red Cell Distribution Width 13.2 % (11.6-14.8) Platelet Count 395 K/UL (150-450) Mean Platelet Volume 5.5 FL (6.5-10.1) Neutrophils (%) (Auto) % (45.0-75.0) Lymphocytes (%) (Auto) % (20.0-45.0) Monocytes (%) (Auto) % (1.0-10.0) Eosinophils (%) (Auto) % (0.0-3.0) Basophils (%) (Auto) % (0.0-2.0) Differential Total Cells Counted 100 Neutrophils % (Manual) 59 % (45-75) Lymphocytes % (Manual) 32 % (20-45) Monocytes % (Manual) 6 % (1-10) Eosinophils % (Manual) 3 % (0-3) Basophils % (Manual) 0 % (0-2) Band Neutrophils 0 % (0-8) Platelet Estimate Adequate Platelet Morphology Normal Polychromasia 1+ Prothrombin Time 11.9 SEC (9.30-11.50) Prothromb Time International Ratio 1.1 (0.9-1.1) Activated Partial Thromboplast Time 25 SEC (23-33) Sodium Level 141 MMOL/L (136-145) Potassium Level 4.6 MMOL/L (3.5-5.1) Chloride Level 103 MMOL/L (98-107) Carbon Dioxide Level 31 MMOL/L (21-32) Anion Gap 7 mmol/L (5-15) Blood Urea Nitrogen 61 mg/dL (7-18) Creatinine 1.8 MG/DL (0.55-1.30) Estimat Glomerular Filtration Rate mL/min (>60) Glucose Level 245 MG/DL (74-106) Lactic Acid Level 1.70 mmol/L (0.4-2.0) Calcium Level 10.3 MG/DL (8.5-10.1) Total Bilirubin 0.2 MG/DL (0.2-1.0) Aspartate Amino Transf (AST/SGOT) 32 U/L (15-37) Alanine Aminotransferase (ALT/SGPT) 29 U/L (12-78) Alkaline Phosphatase 121 U/L (46-116) Total Creatine Kinase 49 U/L (26-308) Creatine Kinase MB 1.1 NG/ML (0.0-3.6) Creatine Kinase MB Relative Index 2.2 Troponin I 0.008 ng/mL (0.000-0.056) Pro-B-Type Natriuretic Peptide 227 pg/mL (0-125) Total Protein 10.1 G/DL (6.4-8.2) Albumin 3.0 G/DL (3.4-5.0) Globulin 7.1 g/dL Albumin/Globulin Ratio 0.4 (1.0-2.7) Lipase 283 U/L (73-393) Arterial Blood pH 7.343 (7.350-7.450) Arterial Blood Partial Pressure CO2 51.3 mmHg (35.0-45.0) Arterial Blood Partial Pressure O2 159.4 mmHg (75.0-100.0) Arterial Blood HCO3 27.2 mmol/L (22.0-26.0) Arterial Blood Oxygen Saturation 98.8 % (95-100) Arterial Blood Base Excess 1.0 (-2-2) Luís Test Positive EKG Diagnostic Results Rate: tachycardiac Rhythm: NSR ST Segments: other - Nonspecific ST segment changes Rhythm Strip Diag. Results EP Interpretation: yes Rate: 113 Rhythm: NSR, no PVC's, no ectopy Chest X-Ray Diagnostic Results Chest X-Ray Diagnostic Results : Chest X-Ray Ordered: Yes # of Views/Limited/Complete: 1 View Indication: Shortness of Breath EP Interpretation: No Impression: Other - ET tube in good position. Significant crepitus and possible pneumomediastinum. Questionable bilateral pneumothorax. Pulmonary infiltrate Electronically Signed by: Electronically signed by Jayson Templeton MD Last Vital Signs Date Time Temp Pulse Resp B/P (MAP) Pulse Ox O2 Delivery O2 Flow Rate FiO2 12/21/18 18:46 100 12/21/18 18:34 98.0 111 21 124/75 91 Endotracheal Tube Status: improved Disposition: ADMITTED INPATIENT Condition: Critical Referrals: Rl White DO (PCP) Jayson Templeton MD Dec 21, 2018 20:41
[2018-12-21] MEDS ORDERED: Morphine Sulfate 4mg/ml Inj (IV USE ONLY) IVP PRN (20:45)
[2018-12-21] MEDS ORDERED: LORazepam Inj 2mg/ml 1ml IV PRN (20:45)
[2018-12-21] MEDS ORDERED: Albuterol/Ipratropium 3ml neb HHN PRN (20:45)
[2018-12-21] MEDS ORDERED: Miralax 17gm pkt ORAL PRN (20:45)
--- NOTE | 2018-12-21 20:50 | NUR ---
To CT- chest with the nurse.
[2018-12-21] MEDS ORDERED: Amikacin Rx to dose MISC PRN (21:15)
--- NOTE | 2018-12-21 21:30 | NUR ---
ED Nurse Note: Report called into [facility] prior to results of CT scan.
--- NOTE | 2018-12-21 22:00 | NUR ---
ED Nurse Note: Left chest tube inserted by SERGIO and RENZO with mutiple RN assist. Patient tolerated procedure well. vital signs stable.
[2018-12-21] MEDS ORDERED: Morphine Sulfate 4mg/ml Inj (IV USE ONLY) ONE (22:02)
--- NOTE | 2018-12-21 22:30 | NUR ---
ED Nurse Note: Left chest tube inserted by SERGIO and RENZO. PAtietn tolerated procedure well. vss.
--- NOTE | 2018-12-21 22:45 | NUR ---
ED Nurse Note: Central line inserted by ERMD, Patient tolerated well. all lines patent and fluids running.
[2018-12-21 22:50] VITALS: BP 84/50
[2018-12-21] MEDS ORDERED: Ertapenem 0.5 GM in NS 55 ML IV SCH (23:00)
[2018-12-21] MEDS ORDERED: Morphine Sulfate 4mg/ml Inj (IV USE ONLY) IVP ONE (23:15)
[2018-12-21] MEDS ORDERED: Morphine Sulfate 4mg/ml Inj (IV USE ONLY) IVP SCH (23:15)
[2018-12-21 23:28] VITALS: BP 120/101
--- NOTE | 2018-12-21 23:29 | NUR ---
ED Nurse Note: Patient vital signs stable, BP recovered with 2L of NS.
--- NOTE | 2018-12-21 23:31 | NUR ---
ED Nurse Note: Tried to call to give update to [employer]ER. He is on break, will try again in 10 minutes.
[2018-12-21] MEDS ORDERED: Vancomycin 1 GM in D5W 275 ML IV SCH (23:45)
--- NOTE | 2018-12-21 23:47 | NUR ---
ED Nurse Note: Update regarding procedures and care since report given to Cristofer BOND.
[2018-12-22] VITALS (24 sets, daily range): BP systolic 96–151; BP diastolic 42–95
[2018-12-22] MEDS ORDERED: Amikacin 500 MG in NS 110 ML IV ONE ×2
--- NOTE | 2018-12-22 00:20 | NUR ---
NURSE NOTES: Admitted from ED this 83yo -[place] female in no acute distress. Pt is obtunded but flexes arms withdraws to pain. Orally intubated with #7ETT placed over left lip at 24cm. Vent settings noted at AC [id number] 1.0 peep5 and saturating 100%. Facial and periorbital edema noted with crepitus on forehead, cheeks and upper shoulders and neck. Pt has an old trach site which is covered with dry gauze. Left and right chest tubes in place, connected to pleur evac on 20cm H20 suction. Pt has a g20 saline lock on left hand and another saline on right hand g18. Pt also has a TLC on left femoral area. FC intact; afebrile; NSR; BP stable. Noted an open wound on left mallelous and a resurfaced wound on the left mallelous as well. GT on LUQ noted, currently clamped.Will continue to monitor.
--- NOTE | 2018-12-22 00:31 | NUR ---
ED Nurse Note: Patient trasnferred to ICU without incident, accompanied by 2 RN and ERTECH.
[2018-12-22] MEDS: Heparin 5000 units/ml inj SUBQ SCH ×3 (01:17→20:47)
[2018-12-22] MEDS ORDERED: Ertapenem (INVanz) 1gm Inj ONE (01:32)
--- NOTE | 2018-12-22 02:00 | NUR ---
NURSE NOTES: Calm, asleep, No distress. Left periorbital area less swollen; still with crepitus on forehead, right orbital area, cheeks and upper shoulders, Chest tubes no drainage, continues on [id number] suction
--- NOTE | 2018-12-22 04:00 | NUR ---
NURSE NOTES: obtunded but withdraws to pain; eyes closed; right eye still swollen; still with subcut emphysema on face, forehead and upper shoulders. VSS; no distress otherwise. Chest tube dressings intact
[2018-12-22 06:16] LABS: HEMATOCRIT 23.5 % (37.0-47.0); HEMOGLOBIN 7.6 G/DL (12.0-16.0); MEAN CORPUSCULAR VOLUME 92 FL (80-99); PLATELET COUNT 295 K/UL (150-450); RED BLOOD COUNT 2.54 M/UL (4.20-5.40); RED CELL DISTRIBUTION WIDTH 13.4 % (11.6-14.8); WHITE BLOOD COUNT 20.9 K/UL (4.8-10.8)
[2018-12-22 06:37] LABS: ALANINE AMINOTRANSFERASE 38 U/L (12-78); ALBUMIN 2.4 G/DL (3.4-5.0); ALBUMIN/GLOBULIN RATIO 0.4 (1.0-2.7); ALKALINE PHOSPHATASE 83 U/L (46-116); ANION GAP 8 mmol/L (5-15); ASPARTATE AMINO TRANSFERASE 34 U/L (15-37); BILIRUBIN,DIRECT < 0.1 MG/DL (0.0-0.3); BILIRUBIN,TOTAL 0.2 MG/DL (0.2-1.0); BLOOD UREA NITROGEN 52 mg/dL (7-18); CALCIUM 9.1 MG/DL (8.5-10.1); CARBON DIOXIDE 27 MMOL/L (21-32); CHLORIDE 111 MMOL/L (98-107); CREATININE 1.6 MG/DL (0.55-1.30); POTASSIUM 4.5 MMOL/L (3.5-5.1); SODIUM 146 MMOL/L (136-145)
--- NOTE | 2018-12-22 07:09 | NUR ---
HAND-OFF: Report given to Shahla Beaver RN.
--- NOTE | 2018-12-22 07:10 | NUR ---
NURSE NOTES: Report received from RONDA Pollard. Pt is sleeping in bed. Able to wake up by tactile stimuli and respond to pain. Eyes are puffy and closed. Crepitus noted on face and upper chest. Right side worse than left side. Both side chest tube, connected to suction. No air leaks. No drainage for output noted. Sinus rhythm on court recording monitor. ETT 7.5/24cm, AC 16, TV 600, FiO2 50%, P 5. O2 sat 98-100%. G-tube in place. Kept NPO as per order. Smith in place draining yellow urine to gravity. IV to right wrist G18 and left hand G20, left femoral TLC patent and asymptomatic. NS is running at 100cc/hr. Right and left malleolus dressing dry and intact. Bed in lowest position. Side rails up x3. Call light within reach. Will resume plan of care.
[2018-12-22 08:22] LABS: HEMATOCRIT 25.9 % (37.0-47.0); HEMOGLOBIN 8.2 G/DL (12.0-16.0); MEAN CORPUSCULAR VOLUME 93 FL (80-99); PLATELET COUNT 315 K/UL (150-450); RED BLOOD COUNT 2.77 M/UL (4.20-5.40); RED CELL DISTRIBUTION WIDTH 13.3 % (11.6-14.8)
[2018-12-22] MEDS: Pantoprazole Inj IV SCH (08:54)
[2018-12-22] MEDS: Amiodarone 200mg tab GT SCH (08:54)
--- NOTE | 2018-12-22 09:28 | NUR ---
RD ASSESSMENT & RECOMMENDATIONS SEE CARE ACTIVITY FOR COMPLETE ASSESSMENT DAILY ESTIMATED NEEDS: Needs based on Critical Care, wound 63kg 22-28 kcals/kg 6486-2730 total kcals 1.25-2 g protein/kg 78-126 g total protein 25-30 mL/kg 2405-8761 total fluid mLs NUTRITION DIAGNOSIS: * Swallowing difficulty R/T respiratory status, dysphagia as evidenced by pt is trach/vent + PEG dep, s/p respiratory distress, currently orally intubated, NPO. * Increased kcal/prot needs R/T wound healing as evidenced by pt admitted w/ BL malleolus wounds, pending eval. CURRENT TF:NPO ENTERAL NUTRITION RECOMMENDATIONS: Glucerna 1.2 @ 60ml/hr x 22 hrs + Prosource 1pkt daily to provide 1320ml, 1584kcal, 79g + 11g prot, 1065ml free water - Once medically appropriate, initiate TF on Glucerna 1.2 @ 20ml/hr x 6 hrs. - Advance 10ml q 4-6 hrs as tolerated to goal rate - HOB >30 degrees/ water flushes per MD - Add Prosource 1pkt daily to better meet protein needs. - Hold 1 hour before and after Synthroid med. ADDITIONAL RECOMMENDATIONS: 1) Calibrated bedscale wts 2) Monitor lytes, replete as needed 3) Monitor BGs closely, need for hypoglycemic agents (BG 245 upon adm, now improved) 4) F/up w/ wound eval -Rec Tommie 1pkt BID and Vit C 250mg QD for wound healing
--- NOTE | 2018-12-22 09:30 | Consultation ---
History of Present Illness General Chief Complaint: Dyspnea/Respdistress Present Illness HPI 83 year old male with hx of chronic trach, PEG, vegetative state, HTN, COPD was brought in by paramedics with CC of respiratory failure. Patient has a tracheostomy. In the correction patient apparently developed acute onset of crepitus throughout the face and body after changing the trach. He had desaturations of O2 and was sent to ER for further evaluation. On arrival the tracheostomy tube was already removed. Pt had bilateral pneumothorax and needed bilateral chest tube. Allergies: Coded Allergies: ASPIRIN (Verified Allergy, Unknown, 07/07/17) Medication History Scheduled Albuterol Sulfate* (Albuterol Sulfate Hhn*), 3 ML INH Q6H, (Reported) Amiodarone Hcl* (Amiodarone Hcl*), 200 MG GT ONCE DAILY, (Reported) Ascorbic Acid* (Vitamin C*), 500 MG GT DAILY, (Reported) Cefepime Hcl/D5w (Cefepime-Dextrose 1 Gm/50 Ml), 1 GM IVPB EVERY 12 HOURS Chlorhexidine Gluconate* (Hibiclens*), 15 ML PO DAILY, (Reported) Cholecalciferol (Vitamin D3)* (Vitamin D*), 5,000 UNIT GT DAILY, (Reported) Clonazepam* (Klonopin*), 0.5 MG ORAL Q6H, (Reported) Cran/Vitc/Mannose/Inulin/Brom (Uti-Stat Liquid), 30 ML GT BID, (Reported) Docusate Sodium* (Colace*), 100 MG GT DAILY, (Reported) Heparin Sod (Porcine) (Heparin Sodium*), 5,000 UNITS SUBQ EVERY 12 HOURS, ( Reported) Hydroxyzine Hcl (Hydroxyzine Hcl), 10 MG GT ONCE DAILY, (Reported) Latanoprost* (Xalatan*), 1 DROP BOTH EYES BEDTIME, (Reported) Levothyroxine Sodium* (Synthroid*), 112 MCG GT DAILY, (Reported) Melatonin (Melatonin), Unknown Dose GT BEDTIME, (Reported) Memantine Hcl* (Namenda*), 5 MG GT TWICE A DAY, (Reported) Multivitamin Liquid* (Multi-Delyn*), 5 ML GT DAILY, (Reported) Na Phos,M-B/Na Phos,Di-Ba* (Fleet Enema*), 133 ML RECTAL DAILY, (Reported) Omeprazole (Omeprazole), 20 MG GT DAILY, (Reported) Pantoprazole* (Protonix*), 40 MG GT DAILY, (Reported) Scheduled PRN Acetaminophen* (Acetaminophen 325MG Tablet*), 650 MG GT Q4H PRN for Fever/ Headache/Mild Pain, (Reported) Acetaminophen* (Acetaminophen 325MG Tablet*), 600 MG GT Q4H PRN for MILD PAIN, ( Reported) Albuterol Sulfate* (Albuterol Sulfate Hhn*), 3 ML INH Q3HR PRN for Shortness of Breath, (Reported) Bisacodyl (Bisacodyl), 10 MG RC PRN PRN for Constipation, (Reported) Lorazepam* (Lorazepam*), 0.5 MG GT Q6HR PRN for For Anxiety, (Reported) Magnesium Hydroxide* (Milk Of Magnesia*), 30 ML GT DAILY PRN for Constipation, ( Reported) Ondansetron* (Zofran*), 4 MG IM Q6H PRN for Nausea & Vomiting, (Reported) Trazodone Hcl* (Desyrel*), 50 MG GT BEDTIME PRN for insomnia, (Reported) Miscellaneous Medications Heparin Sodium,Porcine/Ns/Pf (Heparin), 2,000 UNIT IV, (Reported) Discontinued Medications Acetaminophen* (Tylenol Extra Strength*), 1,000 MG ORAL Q6H, (Reported) Discontinued Reason: Medication dose changed Docusate Sodium* (Colace*), 100 MG ORAL DAILY, (Reported) Discontinued Reason: Therapy completed Piperacillin Sodium/Tazobactam (Zosyn 3.375 Gram Vial), 3.375 GM IVPB Q8HR, ( Reported) Discontinued Reason: Therapy completed Patient History Healthcare decision maker Carlos Salgado Resuscitation status Full Code Advanced Directive on File Past Medical/Surgical History Past Medical/Surgical History: (1) Chronic vegetative state (2) Chronic respiratory failure (3) Feeding by G-tube (4) HTN (hypertension) (5) Cardiomyopathy (6) Seizure disorder Review of Systems All Other Systems: negative except mentioned in HPI Physical Exam General Appearance: thin Lines, tubes and drains: peripheral HEENT: normocephalic, atraumatic Neck: non-tender, normal alignment, supple Respiratory/Chest: chest wall non-tender, lungs clear, other - bilateral chest tube Breasts: no masses Cardiovascular/Chest: normal peripheral pulses, normal rate Abdomen: normal bowel sounds, non tender Genitourinary/Rectal: normal genital exam Extremities: normal range of motion 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 Last 24 Hour Vital Signs Date Time Temp Pulse Resp B/P (MAP) Pulse Ox O2 Delivery O2 Flow Rate FiO2 12/22/18 09:00 79 19 127/71 (89) 100 12/22/18 09:00 40 12/22/18 08:09 80 16 40 12/22/18 08:07 81 17 Mechanical Ventilator 40 12/22/18 08:00 81 20 127/71 (89) 98 12/22/18 08:00 50 12/22/18 08:00 Mechanical Ventilator 12/22/18 07:32 73 12/22/18 07:00 98.2 71 20 110/66 (81) 99 12/22/18 06:04 71 17 120/52 (74) 100 12/22/18 05:10 72 17 40 12/22/18 05:00 74 16 118/70 (86) 100 12/22/18 04:00 Mechanical Ventilator 12/22/18 04:00 50 12/22/18 04:00 86 12/22/18 04:00 98.4 86 16 113/58 (76) 100 12/22/18 03:08 69 16 50 12/22/18 03:00 70 16 114/61 (78) 100 12/22/18 02:08 98.1 73 16 146/87 100 Mechanical Ventilator 100 12/22/18 02:00 74 18 119/51 (73) 100 12/22/18 01:29 67 16 60 12/22/18 01:00 68 14 103/48 (66) 100 12/22/18 00:39 98.1 73 18 146/87 (106) 100 12/22/18 00:36 100 12/22/18 00:34 73 12/22/18 00:00 Mechanical Ventilator 12/21/18 23:28 98.0 80 18 120/101 100 Endotracheal Tube 100 12/21/18 23:15 102 15 100 12/21/18 22:50 98.0 111 16 84/50 91 Endotracheal Tube 100 12/21/18 22:00 148/87 12/21/18 21:20 110 16 100 12/21/18 18:46 100 12/21/18 18:34 98.0 111 21 124/75 91 Endotracheal Tube 12/21/18 18:34 111 21 Mechanical Ventilator 12/21/18 18:28 110 18 100 12/21/18 18:14 120 18 177/88 98 Ambu-Bag Intake and Output 12/21/18 12/22/18 19:00 07:00 Intake Total 2767 ml Output Total 900 ml Balance 1867 ml Intake Oral 0 ml IV Total 2767 ml Output Urine Total 900 ml Chest Tube Drainage Total 0 ml Laboratory Tests Test 12/21/18 18:21 12/21/18 18:35 12/21/18 19:00 12/22/18 05:16 White Blood Count 25.9 K/UL (4.8-10.8) *H 20.9 K/UL (4.8-10.8) H Red Blood Count 3.20 M/UL (4.20-5.40) L 2.54 M/UL (4.20-5.40) L Hemoglobin 9.5 G/DL (12.0-16.0) L 7.6 G/DL (12.0-16.0) L Hematocrit 29.6 % (37.0-47.0) L 23.5 % (37.0-47.0) L Mean Corpuscular Volume 92 FL (80-99) 92 FL (80-99) Mean Corpuscular Hemoglobin 29.6 PG (27.0-31.0) 29.7 PG (27.0-31.0) Mean Corpuscular Hemoglobin Concent 32.1 G/DL (32.0-36.0) 32.2 G/DL (32.0-36.0) Red Cell Distribution Width 13.2 % (11.6-14.8) 13.4 % (11.6-14.8) Platelet Count 395 K/UL (150-450) 295 K/UL (150-450) Mean Platelet Volume 5.5 FL (6.5-10.1) L 6.3 FL (6.5-10.1) L Neutrophils (%) (Auto) % (45.0-75.0) % (45.0-75.0) Lymphocytes (%) (Auto) % (20.0-45.0) % (20.0-45.0) Monocytes (%) (Auto) % (1.0-10.0) % (1.0-10.0) Eosinophils (%) (Auto) % (0.0-3.0) % (0.0-3.0) Basophils (%) (Auto) % (0.0-2.0) % (0.0-2.0) Differential Total Cells Counted 100 100 Neutrophils % (Manual) 59 % (45-75) 87 % (45-75) H Lymphocytes % (Manual) 32 % (20-45) 8 % (20-45) L Monocytes % (Manual) 6 % (1-10) 3 % (1-10) Eosinophils % (Manual) 3 % (0-3) 0 % (0-3) Basophils % (Manual) 0 % (0-2) 0 % (0-2) Band Neutrophils 0 % (0-8) 2 % (0-8) Platelet Estimate Adequate Adequate Platelet Morphology Normal Normal Polychromasia 1+ Prothrombin Time 11.9 SEC (9.30-11.50) H Prothromb Time International Ratio 1.1 (0.9-1.1) Activated Partial Thromboplast Time 25 SEC (23-33) Sodium Level 141 MMOL/L (136-145) 146 MMOL/L (136-145) H Potassium Level 4.6 MMOL/L (3.5-5.1) 4.5 MMOL/L (3.5-5.1) Chloride Level 103 MMOL/L (98-107) 111 MMOL/L (98-107) H Carbon Dioxide Level 31 MMOL/L (21-32) 27 MMOL/L (21-32) Anion Gap 7 mmol/L (5-15) 8 mmol/L (5-15) Blood Urea Nitrogen 61 mg/dL (7-18) H 52 mg/dL (7-18) H Creatinine 1.8 MG/DL (0.55-1.30) H 1.6 MG/DL (0.55-1.30) H Estimat Glomerular Filtration Rate mL/min (>60) mL/min (>60) Glucose Level 245 MG/DL (74-106) H 101 MG/DL (74-106) # Lactic Acid Level 1.70 mmol/L (0.4-2.0) Calcium Level 10.3 MG/DL (8.5-10.1) H 9.1 MG/DL (8.5-10.1) Total Bilirubin 0.2 MG/DL (0.2-1.0) 0.2 MG/DL (0.2-1.0) Aspartate Amino Transf (AST/SGOT) 32 U/L (15-37) 34 U/L (15-37) Alanine Aminotransferase (ALT/SGPT) 29 U/L (12-78) 38 U/L (12-78) Alkaline Phosphatase 121 U/L (46-116) H 83 U/L (46-116) Total Creatine Kinase 49 U/L (26-308) Creatine Kinase MB 1.1 NG/ML (0.0-3.6) Creatine Kinase MB Relative Index 2.2 Troponin I 0.008 ng/mL (0.000-0.056) Pro-B-Type Natriuretic Peptide 227 pg/mL (0-125) H Total Protein 10.1 G/DL (6.4-8.2) H 8.0 G/DL (6.4-8.2) Albumin 3.0 G/DL (3.4-5.0) L 2.4 G/DL (3.4-5.0) L Globulin 7.1 g/dL 5.6 g/dL Albumin/Globulin Ratio 0.4 (1.0-2.7) L 0.4 (1.0-2.7) L Lipase 283 U/L (73-393) Arterial Blood pH 7.343 (7.350-7.450) Arterial Blood Partial Pressure CO2 51.3 mmHg (35.0-45.0) H Arterial Blood Partial Pressure O2 159.4 mmHg (75.0-100.0) H Arterial Blood HCO3 27.2 mmol/L (22.0-26.0) H Arterial Blood Oxygen Saturation 98.8 % (95-100) Arterial Blood Base Excess 1.0 (-2-2) Luís Test Positive Red Blood Cell Morphology Normal Direct Bilirubin < 0.1 MG/DL (0.0-0.3) Test 12/22/18 08:02 12/22/18 09:15 White Blood Count 19.0 K/UL (4.8-10.8) H Red Blood Count 2.77 M/UL (4.20-5.40) L Hemoglobin 8.2 G/DL (12.0-16.0) L Hematocrit 25.9 % (37.0-47.0) L Mean Corpuscular Volume 93 FL (80-99) Mean Corpuscular Hemoglobin 29.6 PG (27.0-31.0) Mean Corpuscular Hemoglobin Concent 31.6 G/DL (32.0-36.0) L Red Cell Distribution Width 13.3 % (11.6-14.8) Platelet Count 315 K/UL (150-450) Mean Platelet Volume 6.3 FL (6.5-10.1) L Neutrophils (%) (Auto) % (45.0-75.0) Lymphocytes (%) (Auto) % (20.0-45.0) Monocytes (%) (Auto) % (1.0-10.0) Eosinophils (%) (Auto) % (0.0-3.0) Basophils (%) (Auto) % (0.0-2.0) Differential Total Cells Counted 100 Neutrophils % (Manual) 85 % (45-75) H Lymphocytes % (Manual) 10 % (20-45) L Monocytes % (Manual) 4 % (1-10) Eosinophils % (Manual) 0 % (0-3) Basophils % (Manual) 0 % (0-2) Band Neutrophils 1 % (0-8) Platelet Estimate Adequate Platelet Morphology Normal Hypochromasia 1+ Arterial Blood pH 7.387 (7.350-7.450) Arterial Blood Partial Pressure CO2 40.7 mmHg (35.0-45.0) Arterial Blood Partial Pressure O2 117.1 mmHg (75.0-100.0) H Arterial Blood HCO3 23.9 mmol/L (22.0-26.0) Arterial Blood Oxygen Saturation 97.8 % (95-100) Arterial Blood Base Excess -1.0 (-2-2) Luís Test Positive Microbiology Date/Time Source Procedure Growth Status 12/21/18 23:00 Rectum Received Height (Feet): 5 Height (Inches): 6.00 Weight (Pounds): 139 Medications Current Medications Medications (Trade) Dose Ordered Sig/Torsten Route PRN Reason Start Time Stop Time Status Last Admin Dose Admin Acetaminophen (Tylenol) 650 mg Q4H PRN ORAL fever 12/21/18 20:45 01/20/19 20:44 Albuterol/ Ipratropium (Albuterol/ Ipratropium) 3 ml Q4H PRN HHN Shortness of Breath 12/21/18 20:45 12/26/18 20:44 Amikacin Protocol (Amikacin pharmacy to dose) 1 ea DAILY PRN MISC PER RX 12/21/18 21:15 01/20/19 21:14 Amikacin Sulfate 500 mg/Dextrose 112 ml @ 112 mls/hr Q24H IV 12/23/18 00:00 12/30/18 00:00 Amiodarone HCl (Cordarone) 200 mg DAILY GT 12/22/18 09:00 01/21/19 08:59 12/22/18 08:54 Chlorhexidine Gluconate (Mariah-Hex 2%) 1 applic DAILY@2000 TOPIC 12/22/18 20:00 01/21/19 19:59 Heparin Sodium (Porcine) (Heparin 5000 units/ml) 5,000 units EVERY 12 HOURS SUBQ 12/21/18 21:00 01/20/19 20:59 12/22/18 01:17 Levothyroxine Sodium (Synthroid) 112 mcg DAILY@0630 GT 12/22/18 06:30 01/21/19 06:29 12/22/18 06:32 Lorazepam (Ativan 2mg/ml 1ml) 2 mg Q2H PRN IV For Anxiety 12/21/18 20:45 12/28/18 20:44 Morphine Sulfate (Morphine Sulfate) 4 mg Q4H PRN IVP Severe Pain (Pain Scale 7-10) 12/21/18 20:45 12/28/18 20:44 Norepinephrine Bitartrate 4 mg/ Dextrose 254 ml @ 0 mls/hr Q24H IV 12/21/18 22:00 01/20/19 21:59 Ondansetron HCl (Zofran) 4 mg Q6H PRN IVP Nausea & Vomiting 12/21/18 20:45 01/20/19 20:44 Pantoprazole (Protonix) 40 mg DAILY IV 12/22/18 09:00 01/21/19 08:59 12/22/18 08:54 Polyethylene Glycol (Miralax) 17 gm DAILYPRN PRN ORAL Constipation 12/21/18 20:45 01/20/19 20:44 Sodium Chloride 1,000 ml @ 100 mls/hr Q10H IVLG 12/21/18 22:00 01/20/19 21:59 12/22/18 08:54 Vancomycin HCl (Vanco rx to dose) 1 ea DAILY PRN MISC PER RX 12/21/18 21:00 01/20/19 20:59 Assessment/Plan Problem List: (1) Acute and chronic respiratory failure ICD Codes: J96.20 - Acute and chronic respiratory failure, unspecified whether with hypoxia or hypercapnia SNOMED: 54686435 (2) Septic shock ICD Codes: A41.9 - Sepsis, unspecified organism; R65.21 - Severe sepsis with septic shock SNOMED: 07173383 (3) Pneumothorax ICD Codes: J93.9 - Pneumothorax, unspecified SNOMED: 52866904 (4) Nosocomial pneumonia ICD Codes: J18.9 - Pneumonia, unspecified organism SNOMED: 791914008 (5) Hypernatremia ICD Codes: E87.0 - Hyperosmolality and hypernatremia SNOMED: 60814184 (6) ATN (acute tubular necrosis) ICD Codes: N17.0 - Acute kidney failure with tubular necrosis SNOMED: 17236935 (7) Feeding by G-tube ICD Codes: Z93.1 - Gastrostomy status SNOMED: 588408567, 551903405 (8) Chronic vegetative state ICD Codes: R40.3 - Persistent vegetative state SNOMED: 13764267 Respiratory: monitor respiratory rate, adjust FIO2, CXR, ABG Cardiac: continue to monitor HR/BP Renal: F/U I&O Infectious Disease: check cultures, continue antibiotics Gastrointestinal: start feedings Endocrine: monitor blood sugar Hematologic: monitor H/H Neurologic: PRN Ativan Prophylaxis: Protonix, Heparin Time Spent (Minutes): 40 Discussed with: nurses, consultants, complex case manager Sue Yu MD Dec 22, 2018 09:30
--- NOTE | 2018-12-22 09:31 | NUR ---
NURSE NOTES: Dr Rl White here to see the patient. Notified him of pt's current condition including wound. Dr Yu also at bedside, assessing the patient. Order for a new IVF received, noted, and carried out.
[2018-12-22 09:44] LABS: CREATINE KINASE 180 U/L (26-308)
[2018-12-22] MEDS ORDERED: Tubing IV Secondary IV ONE (09:46)
[2018-12-22] MEDS ORDERED: NS 275ml ONE (09:46)
--- NOTE | 2018-12-22 09:52 | NUR ---
CASE MANAGEMENT: REVIEW 83Y/F BIBA FROM [facility] CC: RESP DISTRESS SI: RESP FAILURE T 98.0 HR 120 RR 21 BP 177/88 SAT 91% MECH VENT FIO2 100 WBC 25.9 H/H 9.5/29.6 BUN 61 CR 1.8 GLUCOSE 245 ABG: PH 7.343 PCO2 51.3 PO2 159.4 HCO3 27.2 IS: ZOSYN IV X1 VANCO IV X1 MORPHINE IV X1 NS IVF BOLUS X1 PATIENT ADMITTED TO ICU 12/21/2018 DCP: PATIENT IS FROM [facility]
--- NOTE | 2018-12-22 09:52 | Diagnostic Imaging Report ---
EXAM: XR Chest, 1 View CLINICAL HISTORY: DYSPHAGIA TECHNIQUE: Frontal view of the chest. COMPARISON: Chest x-rays and CT chest dated 12/21/18 FINDINGS: Lungs: No significant change in scattered diffuse reticular interstitial opacities in bilateral lungs. Pleural space: The costophrenic angles are sharp. No definite residual pneumothorax identified. Heart: No cardiomegaly. Atherosclerotic calcifications in the aortic arch. Mediastinum: Unremarkable. Bones/joints: Unremarkable. Soft tissues: No significant change in diffuse subcutaneous emphysema along the neck and chest wall bilaterally. Tubes, lines and devices: Endotracheal tube tip approximately 3.9 cm above the mabel. Stable positioning of bilateral chest tubes. Telemetry leads overlie the thorax. IMPRESSION: No significant interval change compared to the prior chest x-ray.
--- NOTE | 2018-12-22 10:05 | Consultation ---
History of Present Illness General Date patient seen: Dec 22, 2018 Chief Complaint: Dyspnea/Respdistress Present Illness HPI 83 year old male with hx of HTN, seizure disorder, dementia, quadriplegic, chronic resp failure VDRF, LE DVT, s/p peg and trach, COPD, hx of PNA and septic shock with MDRO, hx of MDR ABC VAP 07/2017, MDRO PSA PNA 10/2017, [facility] resident presents to ED on 12/21 with acute onset of crepitus throughout face and body and desaturation after changing at the [facility]. Upon arrival to ED, trach was already removed and pt was being ventilated with a mask by paramedics, her saturation upon arrival was in the 80s. Was intubated in the ED and admitted to ICU. Of note, patient admitted last on 09/11-09/14 for GT malfunction, ileus and lung infiltrates Allergies: Coded Allergies: ASPIRIN (Verified Allergy, Unknown, 07/07/17) Medication History Scheduled Albuterol Sulfate* (Albuterol Sulfate Hhn*), 3 ML INH Q6H, (Reported) Amiodarone Hcl* (Amiodarone Hcl*), 200 MG GT ONCE DAILY, (Reported) Ascorbic Acid* (Vitamin C*), 500 MG GT DAILY, (Reported) Cefepime Hcl/D5w (Cefepime-Dextrose 1 Gm/50 Ml), 1 GM IVPB EVERY 12 HOURS Chlorhexidine Gluconate* (Hibiclens*), 15 ML PO DAILY, (Reported) Cholecalciferol (Vitamin D3)* (Vitamin D*), 5,000 UNIT GT DAILY, (Reported) Clonazepam* (Klonopin*), 0.5 MG ORAL Q6H, (Reported) Cran/Vitc/Mannose/Inulin/Brom (Uti-Stat Liquid), 30 ML GT BID, (Reported) Docusate Sodium* (Colace*), 100 MG GT DAILY, (Reported) Heparin Sod (Porcine) (Heparin Sodium*), 5,000 UNITS SUBQ EVERY 12 HOURS, ( Reported) Hydroxyzine Hcl (Hydroxyzine Hcl), 10 MG GT ONCE DAILY, (Reported) Latanoprost* (Xalatan*), 1 DROP BOTH EYES BEDTIME, (Reported) Levothyroxine Sodium* (Synthroid*), 112 MCG GT DAILY, (Reported) Melatonin (Melatonin), Unknown Dose GT BEDTIME, (Reported) Memantine Hcl* (Namenda*), 5 MG GT TWICE A DAY, (Reported) Multivitamin Liquid* (Multi-Delyn*), 5 ML GT DAILY, (Reported) Na Phos,M-B/Na Phos,Di-Ba* (Fleet Enema*), 133 ML RECTAL DAILY, (Reported) Omeprazole (Omeprazole), 20 MG GT DAILY, (Reported) Pantoprazole* (Protonix*), 40 MG GT DAILY, (Reported) Scheduled PRN Acetaminophen* (Acetaminophen 325MG Tablet*), 650 MG GT Q4H PRN for Fever/ Headache/Mild Pain, (Reported) Acetaminophen* (Acetaminophen 325MG Tablet*), 600 MG GT Q4H PRN for MILD PAIN, ( Reported) Albuterol Sulfate* (Albuterol Sulfate Hhn*), 3 ML INH Q3HR PRN for Shortness of Breath, (Reported) Bisacodyl (Bisacodyl), 10 MG RC PRN PRN for Constipation, (Reported) Lorazepam* (Lorazepam*), 0.5 MG GT Q6HR PRN for For Anxiety, (Reported) Magnesium Hydroxide* (Milk Of Magnesia*), 30 ML GT DAILY PRN for Constipation, ( Reported) Ondansetron* (Zofran*), 4 MG IM Q6H PRN for Nausea & Vomiting, (Reported) Trazodone Hcl* (Desyrel*), 50 MG GT BEDTIME PRN for insomnia, (Reported) Miscellaneous Medications Heparin Sodium,Porcine/Ns/Pf (Heparin), 2,000 UNIT IV, (Reported) Discontinued Medications Acetaminophen* (Tylenol Extra Strength*), 1,000 MG ORAL Q6H, (Reported) Discontinued Reason: Medication dose changed Docusate Sodium* (Colace*), 100 MG ORAL DAILY, (Reported) Discontinued Reason: Therapy completed Piperacillin Sodium/Tazobactam (Zosyn 3.375 Gram Vial), 3.375 GM IVPB Q8HR, ( Reported) Discontinued Reason: Therapy completed Patient History Healthcare decision maker Carlos Salgado Resuscitation status Full Code Advanced Directive on File Patient History Narrative Pmhx: as above Shx: Patient stays at a snf facility Fhx: non contributory Review of Systems All Other Systems: negative except mentioned in HPI Physical Exam Physical Exam Narrative General Appearance: thin Lines, tubes and drains: peripheral HEENT: normocephalic, atraumatic Neck: non-tender, normal alignment, supple Respiratory/Chest: chest wall non-tender, lungs clear, other - bilateral chest tube Cardiovascular/Chest: normal peripheral pulses, normal rate Abdomen: normal bowel sounds, non tender Extremities: normal range of motion 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 II-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 grossly normal Last 24 Hour Vital Signs Date Time Temp Pulse Resp B/P (MAP) Pulse Ox O2 Delivery O2 Flow Rate FiO2 12/22/18 09:23 78 16 40 12/22/18 09:00 79 19 127/71 (89) 100 12/22/18 09:00 40 12/22/18 08:09 80 16 40 12/22/18 08:07 81 17 Mechanical Ventilator 40 12/22/18 08:00 81 20 127/71 (89) 98 12/22/18 08:00 50 12/22/18 08:00 Mechanical Ventilator 12/22/18 07:32 73 12/22/18 07:00 98.2 71 20 110/66 (81) 99 12/22/18 06:04 71 17 120/52 (74) 100 12/22/18 05:10 72 17 40 12/22/18 05:00 74 16 118/70 (86) 100 12/22/18 04:00 Mechanical Ventilator 12/22/18 04:00 50 12/22/18 04:00 86 12/22/18 04:00 98.4 86 16 113/58 (76) 100 12/22/18 03:08 69 16 50 12/22/18 03:00 70 16 114/61 (78) 100 12/22/18 02:08 98.1 73 16 146/87 100 Mechanical Ventilator 100 12/22/18 02:00 74 18 119/51 (73) 100 12/22/18 01:29 67 16 60 12/22/18 01:00 68 14 103/48 (66) 100 12/22/18 00:39 98.1 73 18 146/87 (106) 100 12/22/18 00:36 100 12/22/18 00:34 73 12/22/18 00:00 Mechanical Ventilator 12/21/18 23:28 98.0 80 18 120/101 100 Endotracheal Tube 100 12/21/18 23:15 102 15 100 12/21/18 22:50 98.0 111 16 84/50 91 Endotracheal Tube 100 12/21/18 22:00 148/87 12/21/18 21:20 110 16 100 12/21/18 18:46 100 12/21/18 18:34 98.0 111 21 124/75 91 Endotracheal Tube 12/21/18 18:34 111 21 Mechanical Ventilator 12/21/18 18:28 110 18 100 12/21/18 18:14 120 18 177/88 98 Ambu-Bag Intake and Output 12/21/18 12/22/18 19:00 07:00 Intake Total 2767 ml Output Total 900 ml Balance 1867 ml Intake Oral 0 ml IV Total 2767 ml Output Urine Total 900 ml Chest Tube Drainage Total 0 ml Laboratory Tests Test 12/21/18 18:21 12/21/18 18:35 12/21/18 19:00 12/22/18 05:16 White Blood Count 25.9 K/UL (4.8-10.8) *H 20.9 K/UL (4.8-10.8) H Red Blood Count 3.20 M/UL (4.20-5.40) L 2.54 M/UL (4.20-5.40) L Hemoglobin 9.5 G/DL (12.0-16.0) L 7.6 G/DL (12.0-16.0) L Hematocrit 29.6 % (37.0-47.0) L 23.5 % (37.0-47.0) L Mean Corpuscular Volume 92 FL (80-99) 92 FL (80-99) Mean Corpuscular Hemoglobin 29.6 PG (27.0-31.0) 29.7 PG (27.0-31.0) Mean Corpuscular Hemoglobin Concent 32.1 G/DL (32.0-36.0) 32.2 G/DL (32.0-36.0) Red Cell Distribution Width 13.2 % (11.6-14.8) 13.4 % (11.6-14.8) Platelet Count 395 K/UL (150-450) 295 K/UL (150-450) Mean Platelet Volume 5.5 FL (6.5-10.1) L 6.3 FL (6.5-10.1) L Neutrophils (%) (Auto) % (45.0-75.0) % (45.0-75.0) Lymphocytes (%) (Auto) % (20.0-45.0) % (20.0-45.0) Monocytes (%) (Auto) % (1.0-10.0) % (1.0-10.0) Eosinophils (%) (Auto) % (0.0-3.0) % (0.0-3.0) Basophils (%) (Auto) % (0.0-2.0) % (0.0-2.0) Differential Total Cells Counted 100 100 Neutrophils % (Manual) 59 % (45-75) 87 % (45-75) H Lymphocytes % (Manual) 32 % (20-45) 8 % (20-45) L Monocytes % (Manual) 6 % (1-10) 3 % (1-10) Eosinophils % (Manual) 3 % (0-3) 0 % (0-3) Basophils % (Manual) 0 % (0-2) 0 % (0-2) Band Neutrophils 0 % (0-8) 2 % (0-8) Platelet Estimate Adequate Adequate Platelet Morphology Normal Normal Polychromasia 1+ Prothrombin Time 11.9 SEC (9.30-11.50) H Prothromb Time International Ratio 1.1 (0.9-1.1) Activated Partial Thromboplast Time 25 SEC (23-33) Sodium Level 141 MMOL/L (136-145) 146 MMOL/L (136-145) H Potassium Level 4.6 MMOL/L (3.5-5.1) 4.5 MMOL/L (3.5-5.1) Chloride Level 103 MMOL/L (98-107) 111 MMOL/L (98-107) H Carbon Dioxide Level 31 MMOL/L (21-32) 27 MMOL/L (21-32) Anion Gap 7 mmol/L (5-15) 8 mmol/L (5-15) Blood Urea Nitrogen 61 mg/dL (7-18) H 52 mg/dL (7-18) H Creatinine 1.8 MG/DL (0.55-1.30) H 1.6 MG/DL (0.55-1.30) H Estimat Glomerular Filtration Rate mL/min (>60) mL/min (>60) Glucose Level 245 MG/DL (74-106) H 101 MG/DL (74-106) # Lactic Acid Level 1.70 mmol/L (0.4-2.0) Calcium Level 10.3 MG/DL (8.5-10.1) H 9.1 MG/DL (8.5-10.1) Total Bilirubin 0.2 MG/DL (0.2-1.0) 0.2 MG/DL (0.2-1.0) Aspartate Amino Transf (AST/SGOT) 32 U/L (15-37) 34 U/L (15-37) Alanine Aminotransferase (ALT/SGPT) 29 U/L (12-78) 38 U/L (12-78) Alkaline Phosphatase 121 U/L (46-116) H 83 U/L (46-116) Total Creatine Kinase 49 U/L (26-308) Creatine Kinase MB 1.1 NG/ML (0.0-3.6) Creatine Kinase MB Relative Index 2.2 Troponin I 0.008 ng/mL (0.000-0.056) Pro-B-Type Natriuretic Peptide 227 pg/mL (0-125) H Total Protein 10.1 G/DL (6.4-8.2) H 8.0 G/DL (6.4-8.2) Albumin 3.0 G/DL (3.4-5.0) L 2.4 G/DL (3.4-5.0) L Globulin 7.1 g/dL 5.6 g/dL Albumin/Globulin Ratio 0.4 (1.0-2.7) L 0.4 (1.0-2.7) L Lipase 283 U/L (73-393) Arterial Blood pH 7.343 (7.350-7.450) Arterial Blood Partial Pressure CO2 51.3 mmHg (35.0-45.0) H Arterial Blood Partial Pressure O2 159.4 mmHg (75.0-100.0) H Arterial Blood HCO3 27.2 mmol/L (22.0-26.0) H Arterial Blood Oxygen Saturation 98.8 % (95-100) Arterial Blood Base Excess 1.0 (-2-2) Luís Test Positive Red Blood Cell Morphology Normal Direct Bilirubin < 0.1 MG/DL (0.0-0.3) Test 12/22/18 08:02 12/22/18 09:15 White Blood Count 19.0 K/UL (4.8-10.8) H Red Blood Count 2.77 M/UL (4.20-5.40) L Hemoglobin 8.2 G/DL (12.0-16.0) L Hematocrit 25.9 % (37.0-47.0) L Mean Corpuscular Volume 93 FL (80-99) Mean Corpuscular Hemoglobin 29.6 PG (27.0-31.0) Mean Corpuscular Hemoglobin Concent 31.6 G/DL (32.0-36.0) L Red Cell Distribution Width 13.3 % (11.6-14.8) Platelet Count 315 K/UL (150-450) Mean Platelet Volume 6.3 FL (6.5-10.1) L Neutrophils (%) (Auto) % (45.0-75.0) Lymphocytes (%) (Auto) % (20.0-45.0) Monocytes (%) (Auto) % (1.0-10.0) Eosinophils (%) (Auto) % (0.0-3.0) Basophils (%) (Auto) % (0.0-2.0) Differential Total Cells Counted 100 Neutrophils % (Manual) 85 % (45-75) H Lymphocytes % (Manual) 10 % (20-45) L Monocytes % (Manual) 4 % (1-10) Eosinophils % (Manual) 0 % (0-3) Basophils % (Manual) 0 % (0-2) Band Neutrophils 1 % (0-8) Platelet Estimate Adequate Platelet Morphology Normal Hypochromasia 1+ Uric Acid 6.0 MG/DL (2.6-7.2) Total Creatine Kinase 180 U/L (26-308) Arterial Blood pH 7.387 (7.350-7.450) Arterial Blood Partial Pressure CO2 40.7 mmHg (35.0-45.0) Arterial Blood Partial Pressure O2 117.1 mmHg (75.0-100.0) H Arterial Blood HCO3 23.9 mmol/L (22.0-26.0) Arterial Blood Oxygen Saturation 97.8 % (95-100) Arterial Blood Base Excess -1.0 (-2-2) Luís Test Positive Microbiology Date/Time Source Procedure Growth Status 12/21/18 23:00 Rectum Received Height (Feet): 5 Height (Inches): 6.00 Weight (Pounds): 139 Medications Current Medications Medications (Trade) Dose Ordered Sig/Torsten Route PRN Reason Start Time Stop Time Status Last Admin Dose Admin Acetaminophen (Tylenol) 650 mg Q4H PRN ORAL fever 12/21/18 20:45 01/20/19 20:44 Albuterol/ Ipratropium (Albuterol/ Ipratropium) 3 ml Q4H PRN HHN Shortness of Breath 12/21/18 20:45 12/26/18 20:44 Amikacin Protocol (Amikacin pharmacy to dose) 1 ea DAILY PRN MISC PER RX 12/21/18 21:15 01/20/19 21:14 Amikacin Sulfate 500 mg/Dextrose 112 ml @ 112 mls/hr Q24H IV 12/23/18 00:00 12/30/18 00:00 Amiodarone HCl (Cordarone) 200 mg DAILY GT 12/22/18 09:00 01/21/19 08:59 12/22/18 08:54 Chlorhexidine Gluconate (Mariah-Hex 2%) 1 applic DAILY@1999 TOPIC 12/22/18 20:00 01/21/19 19:59 Heparin Sodium (Porcine) (Heparin 5000 units/ml) 5,000 units EVERY 12 HOURS SUBQ 12/21/18 21:00 01/20/19 20:59 12/22/18 09:38 Levothyroxine Sodium (Synthroid) 112 mcg DAILY@0630 GT 12/22/18 06:30 01/21/19 06:29 12/22/18 06:32 Lorazepam (Ativan 2mg/ml 1ml) 2 mg Q2H PRN IV For Anxiety 12/21/18 20:45 12/28/18 20:44 Morphine Sulfate (Morphine Sulfate) 4 mg Q4H PRN IVP Severe Pain (Pain Scale 7-10) 12/21/18 20:45 12/28/18 20:44 Norepinephrine Bitartrate 4 mg/ Dextrose 254 ml @ 0 mls/hr Q24H IV 12/21/18 22:00 01/20/19 21:59 Ondansetron HCl (Zofran) 4 mg Q6H PRN IVP Nausea & Vomiting 12/21/18 20:45 01/20/19 20:44 Pantoprazole (Protonix) 40 mg DAILY IV 12/22/18 09:00 01/21/19 08:59 12/22/18 08:54 Polyethylene Glycol (Miralax) 17 gm DAILYPRN PRN ORAL Constipation 12/21/18 20:45 01/20/19 20:44 Sodium Chloride 1,000 ml @ 75 mls/hr [id number] IV 12/23/18 09:30 01/22/19 09:29 Sodium Chloride 1,000 ml @ 150 mls/hr Q6H40M IV 12/22/18 09:30 12/23/18 09:30 Vancomycin HCl (Vanco rx to dose) 1 ea DAILY PRN MISC PER RX 12/21/18 21:00 01/20/19 20:59 Assessment/Plan Assessment/Plan: Abx: IV Vancomycin 12/21- Amikacin 12/22- Ertapenem x1 12/21 Zosyn x1 12/21 Assessment: Sepsis- probable PNA, r/o UTI/bacteremia -u/a p -Bcx p -CXR No significant change in scattered diffuse reticular interstitial opacities in bilateral lungs. No definite residual pneumothorax identified.No significant change in diffuse subcutaneous emphysema along the neck and chest wall bilaterally. Afebrile Leukocytosis, improving JAMES, improving Acute respiratory failure, failed trach and now intubated 12/21/18 Hx of recurrent PNA (VAP/HAP) -10/2017 MDR PSA, H. flu -sp cx MDR ACB 07/2017, s/p Rx Hypertension. History of seizure disorder Ventilator-dependent respiratory failure History of lower extremity DVT History of PEG and trach placement dementia quadriplegic COPD fdc resident Plan: -Continue empiric IV Vancomycin #2, AMikacin #1 and resume Zosyn #2 pending sputum cx -f/u cx -Monitor CBC/CMP, temperatures -ETT care -aspiration precautions -Influenza sc Thank you for this consultation. Will continue to follow along with you. Discussed with Yane Giron M.D. Dec 22, 2018 10:05
[2018-12-22 11:24] LABS: APPEARANCE,URINE CLEAR; BILIRUBIN, URINE NEGATIVE (NEGATIVE); COLOR,URINE PALE YELLOW; GLUCOSE, URINE (UA) NEGATIVE (NEGATIVE); KETONES,URINE NEGATIVE (NEGATIVE); LEUKOCYTE ESTERASE ,URINE 3+ (NEGATIVE); NITRITE,URINE NEGATIVE (NEGATIVE); PH,URINE 5 (4.5-8.0); PROTEIN,URINE 1+ (NEGATIVE); UROBILINOGEN,URINE NORMAL MG/DL (0.0-1.0)
--- NOTE | 2018-12-22 12:11 | NUR ---
NURSE NOTES: Wound care nurse assessed the wounds. Dr Dean will be consulted for stage [address] White. Dressing changed as per protocol and ordered entered according to wound care nurses' recommendation.
[2018-12-22] MEDS: Piperacillin/Tazobactam 3.375 GM in NS 110 ML IVPB SCH ×2 (12:24→20:46)
--- NOTE | 2018-12-22 12:36 | Consultation ---
Consult Note Consult Note asked to eval at the request of Dr White Patient has a history of encephalopathy. Patient is G-tube dependent. Patient has a tracheostomy. Apparently patient uses to trach at times. Patient was noted to have acute desaturation. The trach was replaced. Unfortunately after replacing the tracheostomy patient apparently developed acute onset of crepitus throughout the face and body. Because of this patient also apparently had desaturations of O2 and was sent here for further evaluation. On arrival the tracheostomy tube was already removed. Patient was being ventilated with a mask by paramedics. Symptoms noted to be highly severe critical as patient's O2 saturation was low on arrival and approximately 80s. No further history is available other than the history obtained per the paramedics as patient is nonverbal. Symptoms noted to be severe. No other modifying factors. No other associated signs and symptoms. No other complaints were noted. Allergies: ASPIRIN (Verified Allergy, Unknown, 07/07/17) Past Medical History: HTN, arrhyth, COPD, dementia, other - G-tube PMH Narrative Encephalopathy quadriplegia Past Surgical History: other - Tracheostomy, G-tube Social History Narrative Patient stays at a intermediate facility Past Medical History: No History, Except For Hx Cardiac Problems: Yes - Arrythmia Hx Hypertension: Yes Hx COPD: Yes Hx Gastrointestinal Problems: Yes - G-tube Hx Neurological Problems: Yes - Encephalopathy, Qudrplegia Hx Cerebrovascular Accident: Yes Hx Dementia: Yes Hx Seizures: Yes - epilepsy Hx Epilepsy: Yes seen in ICU Intubated Facial swollen with crepitus upper chest bilateral chest tubes granado Assessment/Plan acute on chronic Renal failure Acute on chronic respiratory failure Pneumothorax Anemia UTI HypoAlbuminemia HTN PEG Sz Disorder Cardiomyopathy Full code status ! Hydrate- Monitor renal parameters Anemia bryant antibiotics avoid nephrotoxics optimize cardiac and pulm status per orders Tono Case MD Dec 22, 2018 12:36
--- NOTE | 2018-12-22 13:27 | Consultation ---
History of Present Illness General Date patient seen: Dec 22, 2018 Chief Complaint: Dyspnea/Respdistress Present Illness HPI 83 year old female detention resident with multiple medical comorbidities who was noted to have respiratory insufficiency had trach replaced and developed crepitus in face and neck. Transferred to [facility] for care while being bag mask ventilated by EMT. In ED hypoxic and respiratory distress. intubated. bilateral chest tubes. admitted to ICU for care. surgery called to evaluate and assist with care and management. patient seen, chart reviewed, patient examined. Allergies: Coded Allergies: ASPIRIN (Verified Allergy, Unknown, 07/07/17) Medication History Scheduled Albuterol Sulfate* (Albuterol Sulfate Hhn*), 3 ML INH Q6H, (Reported) Amiodarone Hcl* (Amiodarone Hcl*), 200 MG GT ONCE DAILY, (Reported) Ascorbic Acid* (Vitamin C*), 500 MG GT DAILY, (Reported) Cefepime Hcl/D5w (Cefepime-Dextrose 1 Gm/50 Ml), 1 GM IVPB EVERY 12 HOURS Chlorhexidine Gluconate* (Hibiclens*), 15 ML PO DAILY, (Reported) Cholecalciferol (Vitamin D3)* (Vitamin D*), 5,000 UNIT GT DAILY, (Reported) Clonazepam* (Klonopin*), 0.5 MG ORAL Q6H, (Reported) Cran/Vitc/Mannose/Inulin/Brom (Uti-Stat Liquid), 30 ML GT BID, (Reported) Docusate Sodium* (Colace*), 100 MG GT DAILY, (Reported) Heparin Sod (Porcine) (Heparin Sodium*), 5,000 UNITS SUBQ EVERY 12 HOURS, ( Reported) Hydroxyzine Hcl (Hydroxyzine Hcl), 10 MG GT ONCE DAILY, (Reported) Latanoprost* (Xalatan*), 1 DROP BOTH EYES BEDTIME, (Reported) Levothyroxine Sodium* (Synthroid*), 112 MCG GT DAILY, (Reported) Melatonin (Melatonin), Unknown Dose GT BEDTIME, (Reported) Memantine Hcl* (Namenda*), 5 MG GT TWICE A DAY, (Reported) Multivitamin Liquid* (Multi-Delyn*), 5 ML GT DAILY, (Reported) Na Phos,M-B/Na Phos,Di-Ba* (Fleet Enema*), 133 ML RECTAL DAILY, (Reported) Omeprazole (Omeprazole), 20 MG GT DAILY, (Reported) Pantoprazole* (Protonix*), 40 MG GT DAILY, (Reported) Scheduled PRN Acetaminophen* (Acetaminophen 325MG Tablet*), 650 MG GT Q4H PRN for Fever/ Headache/Mild Pain, (Reported) Acetaminophen* (Acetaminophen 325MG Tablet*), 600 MG GT Q4H PRN for MILD PAIN, ( Reported) Albuterol Sulfate* (Albuterol Sulfate Hhn*), 3 ML INH Q3HR PRN for Shortness of Breath, (Reported) Bisacodyl (Bisacodyl), 10 MG RC PRN PRN for Constipation, (Reported) Lorazepam* (Lorazepam*), 0.5 MG GT Q6HR PRN for For Anxiety, (Reported) Magnesium Hydroxide* (Milk Of Magnesia*), 30 ML GT DAILY PRN for Constipation, ( Reported) Ondansetron* (Zofran*), 4 MG IM Q6H PRN for Nausea & Vomiting, (Reported) Trazodone Hcl* (Desyrel*), 50 MG GT BEDTIME PRN for insomnia, (Reported) Miscellaneous Medications Heparin Sodium,Porcine/Ns/Pf (Heparin), 2,000 UNIT IV, (Reported) Discontinued Medications Acetaminophen* (Tylenol Extra Strength*), 1,000 MG ORAL Q6H, (Reported) Discontinued Reason: Medication dose changed Docusate Sodium* (Colace*), 100 MG ORAL DAILY, (Reported) Discontinued Reason: Therapy completed Piperacillin Sodium/Tazobactam (Zosyn 3.375 Gram Vial), 3.375 GM IVPB Q8HR, ( Reported) Discontinued Reason: Therapy completed Patient History Limited by: medical condition History Provided By: Medical Record, PMD Healthcare decision maker Carlos Salgado Resuscitation status Full Code Advanced Directive on File Past Medical/Surgical History Past Medical/Surgical History: (1) Pneumomediastinum (2) Hypoxia (3) Pneumonia (4) Pneumothorax (5) Hypernatremia (6) Hypotension (7) Anemia (8) Seizure disorder (9) Septic shock (10) HTN (hypertension) (11) Cardiomyopathy (12) Sepsis (13) Acute and chronic respiratory failure (14) Tracheostomy care (15) Bowel obstruction (16) Feeding by G-tube (17) Malfunction of gastrostomy tube (18) Chronic respiratory failure (19) Chronic vegetative state (20) Nosocomial pneumonia (21) Fecal impaction (22) ATN (acute tubular necrosis) (23) Ileus (24) Acute on chronic renal failure (25) UTI (urinary tract infection) Review of Systems ROS Narrative unable to respond given medical condition Physical Exam General Appearance: mild distress Lines, tubes and drains: other HEENT: mucous membranes moist Neck: trach, other - ET tube. crepitus Respiratory/Chest: decreased breath sounds, chest tube, on vent, other - subcutaneous crepitus Cardiovascular/Chest: tachycardia Abdomen: soft, no organomegaly, feeding tube Genitourinary/Rectal: other Extremities: other Skin Exam: other Neurologic: unresponsiveness Last 24 Hour Vital Signs Date Time Temp Pulse Resp B/P (MAP) Pulse Ox O2 Delivery O2 Flow Rate FiO2 12/22/18 13:00 77 18 134/60 (84) 100 12/22/18 12:00 Mechanical Ventilator 12/22/18 12:00 98.5 75 16 134/54 (80) 100 12/22/18 11:55 75 12/22/18 11:29 81 16 40 12/22/18 11:00 73 15 120/50 (73) 100 12/22/18 10:00 75 17 117/52 (73) 100 12/22/18 09:23 78 16 40 12/22/18 09:00 79 19 127/71 (89) 100 12/22/18 09:00 40 12/22/18 08:09 80 16 40 12/22/18 08:07 81 17 Mechanical Ventilator 40 12/22/18 08:00 81 20 127/71 (89) 98 12/22/18 08:00 50 12/22/18 08:00 Mechanical Ventilator 12/22/18 07:32 73 12/22/18 07:00 98.2 71 20 110/66 (81) 99 12/22/18 06:04 71 17 120/52 (74) 100 12/22/18 05:10 72 17 40 12/22/18 05:00 74 16 118/70 (86) 100 12/22/18 04:00 Mechanical Ventilator 12/22/18 04:00 50 12/22/18 04:00 86 12/22/18 04:00 98.4 86 16 113/58 (76) 100 12/22/18 03:08 69 16 50 12/22/18 03:00 70 16 114/61 (78) 100 12/22/18 02:08 98.1 73 16 146/87 100 Mechanical Ventilator 100 12/22/18 02:00 74 18 119/51 (73) 100 12/22/18 01:29 67 16 60 12/22/18 01:00 68 14 103/48 (66) 100 12/22/18 00:39 98.1 73 18 146/87 (106) 100 12/22/18 00:36 100 12/22/18 00:34 73 12/22/18 00:00 Mechanical Ventilator 12/21/18 23:28 98.0 80 18 120/101 100 Endotracheal Tube 100 12/21/18 23:15 102 15 100 12/21/18 22:50 98.0 111 16 84/50 91 Endotracheal Tube 100 12/21/18 22:00 148/87 12/21/18 21:20 110 16 100 12/21/18 18:46 100 12/21/18 18:34 98.0 111 21 124/75 91 Endotracheal Tube 12/21/18 18:34 111 21 Mechanical Ventilator 12/21/18 18:28 110 18 100 12/21/18 18:14 120 18 177/88 98 Ambu-Bag Intake and Output 12/21/18 12/22/18 19:00 07:00 Intake Total 2767 ml Output Total 900 ml Balance 1867 ml Intake Oral 0 ml IV Total 2767 ml Output Urine Total 900 ml Chest Tube Drainage Total 0 ml Laboratory Tests Test 12/21/18 18:21 12/21/18 18:35 12/21/18 19:00 12/22/18 05:16 White Blood Count 25.9 K/UL (4.8-10.8) *H 20.9 K/UL (4.8-10.8) H Red Blood Count 3.20 M/UL (4.20-5.40) L 2.54 M/UL (4.20-5.40) L Hemoglobin 9.5 G/DL (12.0-16.0) L 7.6 G/DL (12.0-16.0) L Hematocrit 29.6 % (37.0-47.0) L 23.5 % (37.0-47.0) L Mean Corpuscular Volume 92 FL (80-99) 92 FL (80-99) Mean Corpuscular Hemoglobin 29.6 PG (27.0-31.0) 29.7 PG (27.0-31.0) Mean Corpuscular Hemoglobin Concent 32.1 G/DL (32.0-36.0) 32.2 G/DL (32.0-36.0) Red Cell Distribution Width 13.2 % (11.6-14.8) 13.4 % (11.6-14.8) Platelet Count 395 K/UL (150-450) 295 K/UL (150-450) Mean Platelet Volume 5.5 FL (6.5-10.1) L 6.3 FL (6.5-10.1) L Neutrophils (%) (Auto) % (45.0-75.0) % (45.0-75.0) Lymphocytes (%) (Auto) % (20.0-45.0) % (20.0-45.0) Monocytes (%) (Auto) % (1.0-10.0) % (1.0-10.0) Eosinophils (%) (Auto) % (0.0-3.0) % (0.0-3.0) Basophils (%) (Auto) % (0.0-2.0) % (0.0-2.0) Differential Total Cells Counted 100 100 Neutrophils % (Manual) 59 % (45-75) 87 % (45-75) H Lymphocytes % (Manual) 32 % (20-45) 8 % (20-45) L Monocytes % (Manual) 6 % (1-10) 3 % (1-10) Eosinophils % (Manual) 3 % (0-3) 0 % (0-3) Basophils % (Manual) 0 % (0-2) 0 % (0-2) Band Neutrophils 0 % (0-8) 2 % (0-8) Platelet Estimate Adequate Adequate Platelet Morphology Normal Normal Polychromasia 1+ Prothrombin Time 11.9 SEC (9.30-11.50) H Prothromb Time International Ratio 1.1 (0.9-1.1) Activated Partial Thromboplast Time 25 SEC (23-33) Sodium Level 141 MMOL/L (136-145) 146 MMOL/L (136-145) H Potassium Level 4.6 MMOL/L (3.5-5.1) 4.5 MMOL/L (3.5-5.1) Chloride Level 103 MMOL/L (98-107) 111 MMOL/L (98-107) H Carbon Dioxide Level 31 MMOL/L (21-32) 27 MMOL/L (21-32) Anion Gap 7 mmol/L (5-15) 8 mmol/L (5-15) Blood Urea Nitrogen 61 mg/dL (7-18) H 52 mg/dL (7-18) H Creatinine 1.8 MG/DL (0.55-1.30) H 1.6 MG/DL (0.55-1.30) H Estimat Glomerular Filtration Rate mL/min (>60) mL/min (>60) Glucose Level 245 MG/DL (74-106) H 101 MG/DL (74-106) # Lactic Acid Level 1.70 mmol/L (0.4-2.0) Calcium Level 10.3 MG/DL (8.5-10.1) H 9.1 MG/DL (8.5-10.1) Total Bilirubin 0.2 MG/DL (0.2-1.0) 0.2 MG/DL (0.2-1.0) Aspartate Amino Transf (AST/SGOT) 32 U/L (15-37) 34 U/L (15-37) Alanine Aminotransferase (ALT/SGPT) 29 U/L (12-78) 38 U/L (12-78) Alkaline Phosphatase 121 U/L (46-116) H 83 U/L (46-116) Total Creatine Kinase 49 U/L (26-308) Creatine Kinase MB 1.1 NG/ML (0.0-3.6) Creatine Kinase MB Relative Index 2.2 Troponin I 0.008 ng/mL (0.000-0.056) Pro-B-Type Natriuretic Peptide 227 pg/mL (0-125) H Total Protein 10.1 G/DL (6.4-8.2) H 8.0 G/DL (6.4-8.2) Albumin 3.0 G/DL (3.4-5.0) L 2.4 G/DL (3.4-5.0) L Globulin 7.1 g/dL 5.6 g/dL Albumin/Globulin Ratio 0.4 (1.0-2.7) L 0.4 (1.0-2.7) L Lipase 283 U/L (73-393) Arterial Blood pH 7.343 (7.350-7.450) Arterial Blood Partial Pressure CO2 51.3 mmHg (35.0-45.0) H Arterial Blood Partial Pressure O2 159.4 mmHg (75.0-100.0) H Arterial Blood HCO3 27.2 mmol/L (22.0-26.0) H Arterial Blood Oxygen Saturation 98.8 % (95-100) Arterial Blood Base Excess 1.0 (-2-2) Luís Test Positive Red Blood Cell Morphology Normal Direct Bilirubin < 0.1 MG/DL (0.0-0.3) Test 12/22/18 08:02 12/22/18 09:15 12/22/18 10:55 White Blood Count 19.0 K/UL (4.8-10.8) H Red Blood Count 2.77 M/UL (4.20-5.40) L Hemoglobin 8.2 G/DL (12.0-16.0) L Hematocrit 25.9 % (37.0-47.0) L Mean Corpuscular Volume 93 FL (80-99) Mean Corpuscular Hemoglobin 29.6 PG (27.0-31.0) Mean Corpuscular Hemoglobin Concent 31.6 G/DL (32.0-36.0) L Red Cell Distribution Width 13.3 % (11.6-14.8) Platelet Count 315 K/UL (150-450) Mean Platelet Volume 6.3 FL (6.5-10.1) L Neutrophils (%) (Auto) % (45.0-75.0) Lymphocytes (%) (Auto) % (20.0-45.0) Monocytes (%) (Auto) % (1.0-10.0) Eosinophils (%) (Auto) % (0.0-3.0) Basophils (%) (Auto) % (0.0-2.0) Differential Total Cells Counted 100 Neutrophils % (Manual) 85 % (45-75) H Lymphocytes % (Manual) 10 % (20-45) L Monocytes % (Manual) 4 % (1-10) Eosinophils % (Manual) 0 % (0-3) Basophils % (Manual) 0 % (0-2) Band Neutrophils 1 % (0-8) Platelet Estimate Adequate Platelet Morphology Normal Hypochromasia 1+ Uric Acid 6.0 MG/DL (2.6-7.2) Total Creatine Kinase 180 U/L (26-308) Arterial Blood pH 7.387 (7.350-7.450) Arterial Blood Partial Pressure CO2 40.7 mmHg (35.0-45.0) Arterial Blood Partial Pressure O2 117.1 mmHg (75.0-100.0) H Arterial Blood HCO3 23.9 mmol/L (22.0-26.0) Arterial Blood Oxygen Saturation 97.8 % (95-100) Arterial Blood Base Excess -1.0 (-2-2) Luís Test Positive Urine Color Pale yellow Urine Appearance Clear Urine pH 5 (4.5-8.0) Urine Specific [place] 1.010 (1.005-1.035) Urine Protein 1+ (NEGATIVE) H Urine Glucose (UA) Negative (NEGATIVE) Urine Ketones Negative (NEGATIVE) Urine Blood 4+ (NEGATIVE) H Urine Nitrite Negative (NEGATIVE) Urine Bilirubin Negative (NEGATIVE) Urine Urobilinogen Normal MG/DL (0.0-1.0) Urine Leukocyte Esterase 3+ (NEGATIVE) H Urine RBC 5-10 /HPF (0 - 2) H Urine WBC 15-20 /HPF (0 - 2) H Urine Squamous Epithelial Cells Occasional /LPF Urine Bacteria Few /HPF (NONE) Urine Eosinophils None seen (NONE SEEN) Urine Random Creatinine Pending Urine Random Microalbumin Pending Urine Random Sodium 60 mmol/L (20-110) Urine Creatinine 31.8 MG/DL (30.0-125.0) Urine Microalbumin/Creatinine Ratio Pending Urine Potassium Timed 25 mmol/L (12-62) Microbiology Date/Time Source Procedure Growth Status 12/21/18 23:00 Rectum Received Height (Feet): 5 Height (Inches): 6.00 Weight (Pounds): 139 Medications Current Medications Medications (Trade) Dose Ordered Sig/Torsten Route PRN Reason Start Time Stop Time Status Last Admin Dose Admin Acetaminophen (Tylenol) 650 mg Q4H PRN ORAL fever 12/21/18 20:45 01/20/19 20:44 Albuterol/ Ipratropium (Albuterol/ Ipratropium) 3 ml Q4H PRN HHN Shortness of Breath 12/21/18 20:45 12/26/18 20:44 Amikacin Protocol (Amikacin pharmacy to dose) 1 ea DAILY PRN MISC PER RX 12/21/18 21:15 01/20/19 21:14 Amikacin Sulfate 500 mg/Dextrose 112 ml @ 112 mls/hr Q24H IV 12/23/18 00:00 12/30/18 00:00 Amiodarone HCl (Cordarone) 200 mg DAILY GT 12/22/18 09:00 01/21/19 08:59 12/22/18 08:54 Chlorhexidine Gluconate (Mariah-Hex 2%) 1 applic DAILY@1999 TOPIC 12/22/18 20:00 01/21/19 19:59 Heparin Sodium (Porcine) (Heparin 5000 units/ml) 5,000 units EVERY 12 HOURS SUBQ 12/21/18 21:00 01/20/19 20:59 12/22/18 09:38 Levothyroxine Sodium (Synthroid) 112 mcg DAILY@0630 GT 12/22/18 06:30 01/21/19 06:29 12/22/18 06:32 Lorazepam (Ativan 2mg/ml 1ml) 2 mg Q2H PRN IV For Anxiety 12/21/18 20:45 12/28/18 20:44 Morphine Sulfate (Morphine Sulfate) 4 mg Q4H PRN IVP Severe Pain (Pain Scale 7-10) 12/21/18 20:45 12/28/18 20:44 Norepinephrine Bitartrate 4 mg/ Dextrose 254 ml @ 0 mls/hr Q24H IV 12/21/18 22:00 01/20/19 21:59 Ondansetron HCl (Zofran) 4 mg Q6H PRN IVP Nausea & Vomiting 12/21/18 20:45 01/20/19 20:44 Pantoprazole (Protonix) 40 mg DAILY IV 12/22/18 09:00 01/21/19 08:59 12/22/18 08:54 Piperacillin Sod/ Tazobactam Sod 3.375 gm/Sodium Chloride 110 ml @ 27.5 mls/hr Q8H IVPB 12/22/18 12:00 12/29/18 11:59 12/22/18 12:24 Polyethylene Glycol (Miralax) 17 gm DAILYPRN PRN ORAL Constipation 12/21/18 20:45 01/20/19 20:44 Sodium Chloride 1,000 ml @ 75 mls/hr [id number] IV 12/23/18 09:30 01/22/19 09:29 Sodium Chloride 1,000 ml @ 150 mls/hr Q6H40M IV 12/22/18 09:30 12/23/18 09:30 12/22/18 10:34 Vancomycin HCl (Vanco rx to dose) 1 ea DAILY PRN MISC PER RX 12/21/18 21:00 01/20/19 20:59 Assessment/Plan Problem List: (1) Pneumomediastinum ICD Codes: J98.2 - Interstitial emphysema SNOMED: 25942123 (2) Hypoxia ICD Codes: R09.02 - Hypoxemia SNOMED: 239262207 (3) Pneumonia ICD Codes: J18.9 - Pneumonia, unspecified organism SNOMED: 093668291 (4) Pneumothorax Assessment & Plan: bilateral chest tubes placed prior small air leak noted on suction CXR with resolved ptx. lots of subcutaneous air. cont chest tubes to suction AM CXR ICD Codes: J93.9 - Pneumothorax, unspecified SNOMED: 10536445 (5) Hypernatremia ICD Codes: E87.0 - Hyperosmolality and hypernatremia SNOMED: 17970267 (6) Hypotension ICD Codes: I95.9 - Hypotension, unspecified SNOMED: 04616144 (7) Anemia ICD Codes: D64.9 - Anemia, unspecified SNOMED: 683419500 (8) Seizure disorder ICD Codes: G40.909 - Epilepsy, unspecified, not intractable, without status epilepticus SNOMED: 627137374 (9) Septic shock Assessment & Plan: In ICU intubated on vent CXR noted labs noted cont IV ABx cont vent chest tubes critically ill prognosis guarded ICD Codes: A41.9 - Sepsis, unspecified organism; R65.21 - Severe sepsis with septic shock SNOMED: 24955289 (10) HTN (hypertension) ICD Codes: I10 - Essential (primary) hypertension SNOMED: 58944294 (11) Cardiomyopathy ICD Codes: I42.9 - Cardiomyopathy, unspecified SNOMED: 57256012 (12) Sepsis ICD Codes: A41.9 - Sepsis, unspecified organism SNOMED: 85209133 (13) Acute and chronic respiratory failure ICD Codes: J96.20 - Acute and chronic respiratory failure, unspecified whether with hypoxia or hypercapnia SNOMED: 97338496 (14) Tracheostomy care ICD Codes: Z43.0 - Encounter for attention to tracheostomy SNOMED: 182781703 (15) Bowel obstruction ICD Codes: K56.609 - Unspecified intestinal obstruction, unspecified as to partial versus complete obstruction SNOMED: 65764638 (16) Feeding by G-tube Assessment & Plan: DAILY ESTIMATED NEEDS: Needs based on Critical Care, wound 63kg 22-28 kcals/kg 5579-4896 total kcals 1.25-2 g protein/kg 78-126 g total protein 25-30 mL/kg 1185-3734 total fluid mLs NUTRITION DIAGNOSIS: * Swallowing difficulty R/T respiratory status, dysphagia as evidenced by pt is trach/vent + PEG dep, s/p respiratory distress, currently orally intubated, NPO. * Increased kcal/prot needs R/T wound healing as evidenced by pt admitted w/ BL malleolus wounds, pending eval. CURRENT TF:NPO ENTERAL NUTRITION RECOMMENDATIONS: Glucerna 1.2 @ 60ml/hr x 22 hrs + Prosource 1pkt daily to provide 1320ml, 1584kcal, 79g + 11g prot, 1065ml free water - Once medically appropriate, initiate TF on Glucerna 1.2 @ 20ml/hr x 6 hrs. - Advance 10ml q 4-6 hrs as tolerated to goal rate - HOB >30 degrees/ water flushes per MD - Add Prosource 1pkt daily to better meet protein needs. - Hold 1 hour before and after Synthroid med. ADDITIONAL RECOMMENDATIONS: 1) Calibrated bedscale wts 2) Monitor lytes, replete as needed 3) Monitor BGs closely, need for hypoglycemic agents (BG 245 upon adm, now improved) 4) F/up w/ wound eval -Rec Tommie 1pkt BID and Vit C 250mg QD for wound healing ICD Codes: Z93.1 - Gastrostomy status SNOMED: 333497303, 252603353 (17) Malfunction of gastrostomy tube ICD Codes: K94.23 - Gastrostomy malfunction SNOMED: 707701953 (18) Chronic respiratory failure ICD Codes: J96.10 - Chronic respiratory failure, unspecified whether with hypoxia or hypercapnia SNOMED: 07086082 (19) Chronic vegetative state ICD Codes: R40.3 - Persistent vegetative state SNOMED: 93052686 (20) Nosocomial pneumonia ICD Codes: J18.9 - Pneumonia, unspecified organism SNOMED: 442507954 (21) Fecal impaction ICD Codes: K56.41 - Fecal impaction SNOMED: 04506245 (22) ATN (acute tubular necrosis) ICD Codes: N17.0 - Acute kidney failure with tubular necrosis SNOMED: 75881321 (23) Ileus ICD Codes: K56.7 - Ileus, unspecified SNOMED: 028223300 (24) Acute on chronic renal failure ICD Codes: N17.9 - Acute kidney failure, unspecified; N18.9 - Chronic kidney disease, unspecified SNOMED: 553691949 (25) UTI (urinary tract infection) ICD Codes: N39.0 - Urinary tract infection, site not specified SNOMED: 53135326 Livan Dean Dec 22, 2018 13:27
--- NOTE | 2018-12-22 13:29 | NUR ---
NURSE NOTES:WOUND CARE NOTES:Pt presented with full thickness pressure injury to R lateral malleolus. Base of with 50% scattered slough, 50% pink granulation. Edges flat and adherent to base of wound. Periwound without erythema or induration (L)1.3cm x (W)1.5cm x(D)0.2cm. Resolving pressure injury to L lateral malleolus .Base of wound has 40% dry brown eschar centrally with surrounding pink epithelial that is dry. Edges dry and adherent. Periwound without erythema or induration.(L)1cm x (W)0.8cm. Dark brown skin tone without erythema ,fluctuance or induration noted to R heel. Dark brown skin tone with loose peeling dry skin noted to L heel without erythema induration or fluctuance. Historical scars noted to sacrum ,R hip and L hips from previous wounds. NO other signs of skin breakdown noted. Tx.Plan: Cleanse R lateral malleolus with saline.Apply Therahoney. Apply Cavilon Skin Barrier periwound. Cover with Optifoam drsg.Change every 3 days and prn. Apply Cavilon Skin Barrier to L lateral Malleolus.Cover with Optifoam drsg. Change every 7 Days and prn. Apply Cavilon Skin Barrier to Both heels. Cover each heel with Optifoam. Change every 7 days and prn. APM/MARCOS Mattress overlay. Reposition at least every 2hours or as tolerated. Off-load heels with pillow.
--- NOTE | 2018-12-22 15:00 | NUR ---
NURSE NOTES: Turned and repositioned pt. Afebrile. Oral care done. Suctioned small amount of yellowish pink secretion noted from trach via bite block. Both chest tube intact, still showing no output. Will continue to monitor.
--- NOTE | 2018-12-22 16:22 | NUR ---
NURSE NOTES: Dietitian recommended Vitamin and Tommie for wound healing. Order received from Dr Yu, noted and carried out.
--- NOTE | 2018-12-22 17:53 | NUR ---
NURSE NOTES: Special mattress applied and pt was repositioned. No output noted from both chest tubes. Will continue to monitor. Addendum: 12/22/18 at 1823 by KRISTINA MCCARTHY RN RN NURSE NOTES: Special mattress applied and pt was repositioned. 3cc serosang output noted from each chest tube. Will continue to monitor.
--- NOTE | 2018-12-22 19:35 | NUR ---
NURSE NOTES: Report received from RONDA Bryant. Pt in bed, Able to wake up by tactile stimuli and respond to pain. Eyes are puffy and closed worst on right eye. Crepitus noted on face and upper chest. Right side worse than left side. Both side chest tube, connected to suction. No air leaks. No drainage for output noted. noted with open skin or right side of face [id number] no bleeding. Sinus rhythm on quality assurance monitor. ETT 7.5/24cm, AC 16, TV 600, FiO2 50%, P 5. O2 sat 98-100%. G-tube in place, running Glucerna 1.2 at 20cc hr goal 60cc/hr. Smith in place draining yellow urine to gravity. IV to right wrist G18 and left hand G20, left femoral TLC patent and asymptomatic. NS is running at 150cc/hr. Right and left malleolus dressing dry and intact. Bed in lowest position. Side rails up x3. Call light within reach. Will resume plan of care.
--- NOTE | 2018-12-22 19:38 | NUR ---
HAND-OFF: Report given to RONDA Wahl.
[2018-12-22] MEDS: Dyna-Hex 2% Top Sol 2oz TOPIC SCH (20:46)
--- NOTE | 2018-12-22 21:01 | History and Physical Report ---
DATE OF ADMISSION: 12/21/2018 TIME SEEN: On 12/22/2018 at 9 a.m. CONSULTANTS: 1. Sue Yu M.D. 2. Ricky Slater M.D. CHIEF COMPLAINT: Respiratory failure, sepsis, heel wound. BRIEF HISTORY: This is an 83-year-old female from [facility], who came in, in respiratory distress. In the ER, the patient was intubated and admitted to ICU. Currently intubated, sedated, lethargic in ICU. REVIEW OF SYSTEMS: Unavailable. PAST MEDICAL HISTORY: Includes hypertension, seizure, anemia, renal failure. PAST SURGICAL HISTORY: Unknown. ALLERGIES: Aspirin. MEDICATIONS: Include chlorhexidine, amiodarone, pantoprazole, levothyroxine, ertapenem, amikacin, morphine. SOCIAL HISTORY: Unable to obtain. PHYSICAL EXAMINATION: GENERAL: Lethargic in bed, intubated, sedated, nonverbal. VITAL SIGNS: Temperature is 98 degrees, pulse 79, respiratory rate 19, blood pressure 127/71. CARDIOVASCULAR: No murmur. LUNGS: Poor air exchange. ABDOMEN: Bowel sounds distant. EXTREMITIES: Show no cyanosis, clubbing, or edema. NEUROLOGIC: The patient is flaccid in bed, not following directions. LABORATORY AND DIAGNOSTIC DATA: Labs at this time show white count 19, hemoglobin and hematocrit 8.2/25, platelets 315,000. Sodium 146, chloride 111, BUN and creatinine 52/1.6. INR is 1.1. ASSESSMENT: Respiratory failure, sepsis, heel wound, hypertension, seizure, anemia, renal failure. PLAN: 1. antibiotics per Infectious Diseases. 2. Blood pressure, blood sugar, seizure control. 3. Dietary followup. 4. Wound care. 5. We will add Nephrology evaluation as well. 6. CBC and BMP in the morning. Rl White D.O. DR: Daiana JOB#: [id number] CC:
--- NOTE | 2018-12-22 21:53 | NUR ---
NURSE NOTES: Patient noted with Fever 100.6 axillary cooling measure provided not effective. Tylenol 650mg via GT given after 30 m in Temp 100 axillary will continue cooling measure. patient in bed no s/s of acute distress noted. repositioned. will continue plan of care
--- NOTE | 2018-12-22 22:48 | NUR ---
NURSE NOTES: Patient in bed no moaning no facial grimaces no s/s of acute distress noted. Temp 99.0 Axillary, cooling measure continued. Repositioned. oral care and suctioned. Smith draining. will continue plan of care.
[2018-12-22] MEDS: Amikacin 500 MG in D5W 110 ML IV SCH (23:54)
[2018-12-23] VITALS (25 sets, daily range): BP systolic 107–144; BP diastolic 44–105
--- NOTE | 2018-12-23 02:38 | NUR ---
NURSE NOTES: Pt is sleeping in bed. Able to wake up by tactile stimuli and respond to pain. Eyes are puffy and closed. Crepitus noted on face and upper chest. Right side worse than left side. Both side chest tube, connected to suction. No air leaks. Dressing changed. Sinus rhythm on shift mechanic. ETT 7.5/24cm, AC 16, TV 600, FiO2 50%, P 5. O2 sat 100%. Smith in place draining yellow urine to gravity. IV to right wrist G18 and left hand G20, left femoral TLC patent and asymptomatic. NS is running at 100cc/hr. Temp 99.4 axillary cooling measure continued. Will continue plan of care.
--- NOTE | 2018-12-23 04:38 | NUR ---
NURSE NOTES: Bed bath given tolerated well. No s/s of acute distress noted oral care and suctioned.
[2018-12-23] MEDS: Piperacillin/Tazobactam 3.375 GM in NS 110 ML IVPB SCH ×3 (04:46→20:47)
[2018-12-23 06:25] LABS: % IRON SATURATION 10 % (15-50); IRON 17 ug/dL (50-175); TOTAL IRON BINDING CAPACITY 174 ug/dL (250-450)
[2018-12-23 06:29] LABS: ALANINE AMINOTRANSFERASE 26 U/L (12-78); ALBUMIN 2.2 G/DL (3.4-5.0); ALBUMIN/GLOBULIN RATIO 0.4 (1.0-2.7); ALKALINE PHOSPHATASE 70 U/L (46-116); ANION GAP 8 mmol/L (5-15); ASPARTATE AMINO TRANSFERASE 28 U/L (15-37); BILIRUBIN,TOTAL 0.3 MG/DL (0.2-1.0); BLOOD UREA NITROGEN 24 mg/dL (7-18); CALCIUM 8.8 MG/DL (8.5-10.1); CARBON DIOXIDE 27 MMOL/L (21-32); CHLORIDE 111 MMOL/L (98-107); CHOLESTEROL 126 MG/DL (< 200); CREATININE 1.2 MG/DL (0.55-1.30); FERRITIN 610 NG/ML (8-388); HDL CHOLESTEROL 42 MG/DL (40-60); PHOSPHORUS 2.4 MG/DL (2.5-4.9); POTASSIUM 3.8 MMOL/L (3.5-5.1); SODIUM 146 MMOL/L (136-145); TRIGLYCERIDES 66 MG/DL (30-150)
--- NOTE | 2018-12-23 06:30 | NUR ---
NURSE NOTES: Held GT feeding for Synthroid medication. Patient Temp 99.2 axillary. no s/s of acute distress noted. Repositioned. no moaning no facial grimaces. HOB elevated. Contact isolation maintained and observed. Will continue plan of care.
[2018-12-23 06:31] LABS: HEMATOCRIT 24.6 % (37.0-47.0); HEMOGLOBIN 7.7 G/DL (12.0-16.0); MEAN CORPUSCULAR VOLUME 93 FL (80-99); PLATELET COUNT 279 K/UL (150-450); RED BLOOD COUNT 2.66 M/UL (4.20-5.40); RED CELL DISTRIBUTION WIDTH 13.1 % (11.6-14.8)
--- NOTE | 2018-12-23 07:00 | NUR ---
RESPIRATORY: Received Patient on Vent settings ACVC RR 16, VT 500, FIO2 40%, PEEP +5. Patient intubated with a 7.0 ETT at 24cm at the lip, secured with anchorfast. Breath sounds reveal rhonchi bilaterally. Patient is currently lying in bed, obtunded. SXN thick white secretions as needed. Vent plugged into red outlet. Alarms on and audible. Will continue to monitor throughout the day.
--- NOTE | 2018-12-23 07:15 | NUR ---
HAND-OFF: Report given to Abner BOND. Patient HGB 7.7 endorsed to AM nurse.
--- NOTE | 2018-12-23 07:16 | NUR ---
NURSE NOTES: RECEIVED PATIENT FROM Anibal LIZAMA RN. PATIENT IS LYING IN BED, ASLEEP. NONVERBAL. HOOKED TO [employer] TIN CANS. ORALLY INTUBATED. ETT 7.5, 24CM LIP LINE. VET SETTINGS AC 16, VT 600, FIO2 40%, PEEP 5. NO SIGNS OF DISTRESS. GT IN PLACE, GTF GLUCERNA 1.2 AT 50CC/HR, GOAL OF 60CC/HR. RIVAS CONNECTED TO BAG, PATENT AND DRAINING. SKIN ALTERATION NOTED. L FA TLC, PATENT, DRESSING INTACT. SIDE RAILS PADDED. CALL LIGHT WITHIN REACH. SIDE RAILS UP. BED AT LOWEST POSITION. WILL CONTINUE TO MONITOR.
[2018-12-23 07:38] LABS: CREATINE KINASE 207 U/L (26-308); GAMMA GLUTAMYL TRANSPEPTIDASE 25 U/L (5-85)
--- NOTE | 2018-12-23 08:23 | NUR ---
NURSE NOTES: SPOKE WITH TOSIN BECKHAM FROM LAB RE BLOOD CULTURE RESULT. INFORMED DR MARX FOR BLOOD CULTURE RESULT. AWAITING FOR CALL BACK. WILL CONTINUE TO MONITOR.
[2018-12-23] MEDS ORDERED: 1/2 NS 1000ml IV ONE ×2 (08:42→08:44)
[2018-12-23] MEDS ORDERED: NS 275ml ONE (08:42)
[2018-12-23] MEDS ORDERED: Tubing IV Secondary IV ONE (08:44)
[2018-12-23] MEDS ORDERED: Sterile Water Irrig 1000ml IRRIG ONE (08:44)
[2018-12-23] MEDS: Heparin 5000 units/ml inj SUBQ SCH ×2 (09:00→20:49)
[2018-12-23] MEDS ORDERED: Ascorbic Acid 500mg tab ORAL SCH (09:00)
[2018-12-23] MEDS: Amiodarone 200mg tab GT SCH (09:03)
[2018-12-23] MEDS: Pantoprazole Inj IV SCH ×2 (09:03→20:47)
--- NOTE | 2018-12-23 09:16 | NUR ---
RESPIRATORY: Weaning criteria not passed. Will not proceed with Spontaneous Breathing [place] (SBT).
--- NOTE | 2018-12-23 09:37 | General Progress Note ---
Assessment/Plan Problem List: (1) Acute and chronic respiratory failure ICD Codes: J96.20 - Acute and chronic respiratory failure, unspecified whether with hypoxia or hypercapnia SNOMED: 09542937 (2) Sepsis ICD Codes: A41.9 - Sepsis, unspecified organism SNOMED: 75034010 (3) HTN (hypertension) ICD Codes: I10 - Essential (primary) hypertension SNOMED: 00588052 (4) Seizure disorder ICD Codes: G40.909 - Epilepsy, unspecified, not intractable, without status epilepticus SNOMED: 214483920 (5) ATN (acute tubular necrosis) ICD Codes: N17.0 - Acute kidney failure with tubular necrosis SNOMED: 79147870 Status: unchanged Assessment/Plan: vent abx neph f/u cbc bmp am Subjective Constitutional: Reports: weakness Allergies: Coded Allergies: ASPIRIN (Verified Allergy, Unknown, 07/07/17) All Systems: reviewed and negative except above Subjective intubated sedated Objective Last 24 Hour Vital Signs Date Time Temp Pulse Resp B/P (MAP) Pulse Ox O2 Delivery O2 Flow Rate FiO2 12/23/18 09:21 100 12/23/18 09:16 77 27 40 12/23/18 07:00 69 18 137/50 (79) 100 12/23/18 06:56 76 22 40 12/23/18 06:00 99.1 68 17 137/56 (83) 100 12/23/18 05:18 68 18 40 12/23/18 05:00 68 17 120/58 (78) 100 12/23/18 04:00 81 12/23/18 04:00 40 12/23/18 04:00 99.2 80 22 144/88 (106) 100 12/23/18 04:00 Mechanical Ventilator 12/23/18 03:03 71 18 40 12/23/18 03:00 69 17 138/68 (91) 100 12/23/18 02:00 69 19 137/71 (93) 100 12/23/18 01:08 67 17 40 12/23/18 01:00 74 18 121/55 (77) 100 12/23/18 00:00 86 12/23/18 00:00 Mechanical Ventilator 12/23/18 00:00 99.4 73 19 124/87 (99) 100 12/22/18 23:05 75 21 40 12/22/18 23:00 73 19 115/55 (75) 100 12/22/18 22:00 121/55 12/22/18 22:00 99.7 81 20 96/47 (63) 100 12/22/18 21:49 100.0 12/22/18 21:30 81 25 40 12/22/18 21:00 100.6 73 17 116/42 (66) 100 12/22/18 20:00 79 12/22/18 20:00 99.9 70 16 110/43 (65) 100 12/22/18 20:00 Mechanical Ventilator 12/22/18 20:00 40 12/22/18 19:03 76 19 Mechanical Ventilator 40 12/22/18 19:03 75 19 40 12/22/18 19:00 74 18 121/55 (77) 100 12/22/18 18:00 81 21 136/85 (102) 100 12/22/18 17:20 77 17 40 12/22/18 17:00 98.6 83 21 142/95 (111) 100 12/22/18 16:00 40 12/22/18 16:00 Mechanical Ventilator 12/22/18 16:00 85 19 151/56 (87) 100 12/22/18 15:48 87 12/22/18 15:15 80 18 40 12/22/18 15:00 84 22 121/84 (96) 100 12/22/18 14:00 76 20 98/75 (83) 100 12/22/18 13:23 76 18 40 12/22/18 13:00 77 18 134/60 (84) 100 12/22/18 12:00 Mechanical Ventilator 12/22/18 12:00 98.5 75 16 134/54 (80) 100 12/22/18 11:55 75 12/22/18 11:29 81 16 40 12/22/18 11:00 73 15 120/50 (73) 100 12/22/18 10:00 75 17 117/52 (73) 100 Intake and Output 12/22/18 12/23/18 19:00 07:00 Intake Total 1778.0 ml 2142 ml Output Total 1101 ml 855 ml Balance 677.0 ml 1287 ml Free Water 30 ml 50 ml IV Total 1628.0 ml 1692 ml Tube Feeding 120 ml 400 ml Output Urine Total 1095 ml 855 ml Chest Tube Drainage Total 6 ml # Bowel Movements 1 Laboratory Tests 12/22/18 10:55: Urine Color Pale yellow, Urine Appearance Clear, Urine pH 5, Urine Specific [place] 1.010, Urine Protein 1+H, Urine Glucose (UA) Negative, Urine Ketones Negative, Urine Blood 4+H, Urine Nitrite Negative, Urine Bilirubin Negative, Urine Urobilinogen Normal, Urine Leukocyte Esterase 3+H, Urine RBC 5-10H, Urine WBC 15-20H, Urine Squamous Epithelial Cells Occasional, Urine Bacteria Few, Urine Eosinophils None seen, Urine Random Creatinine [Pending], Urine Random Microalbumin [Pending], Urine Random Sodium 60, Urine Creatinine 31.8, Urine Microalbumin/Creatinine Ratio [Pending], Urine Potassium Timed 25 12/23/18 04:00: Sodium Level 146H, Potassium Level 3.8, Chloride Level 111H, Carbon Dioxide Level 27, Anion Gap 8, Blood Urea Nitrogen 24H, Creatinine 1.2, Estimat Glomerular Filtration Rate , Glucose Level 100, Hemoglobin A1c 6.0, Lactic Acid Level 0.70, Uric Acid 3.9, Calcium Level 8.8, Phosphorus Level 2.4L, Magnesium Level 2.1, Iron Level 17L, Total Iron Binding Capacity 174L, Percent Iron Saturation 10L, Unsaturated Iron Binding 157, Ferritin 610H, Total Bilirubin 0.3 , Gamma Glutamyl Transpeptidase 25, Aspartate Amino Transf (AST/SGOT) 28, Alanine Aminotransferase (ALT/SGPT) 26, Alkaline Phosphatase 70, Total Creatine Kinase 207, Troponin I 0.009, C-Reactive Protein, Quantitative 17.2H, Pro-B- Type Natriuretic Peptide 1297H, Total Protein 7.7, Albumin 2.2L, Globulin 5.5, Albumin/Globulin Ratio 0.4L, Triglycerides Level 66, Cholesterol Level 126, LDL Cholesterol 76, HDL Cholesterol 42, Cholesterol/HDL Ratio 3.0L, Vitamin B12 Level 1638H, Folate 70.2H, Thyroid Stimulating Hormone (TSH) 0.021L 12/23/18 06:22: White Blood Count 15.0H, Red Blood Count 2.66L, Hemoglobin 7.7L, Hematocrit 24.6L, Mean Corpuscular Volume 93, Mean Corpuscular Hemoglobin 29.1, Mean Corpuscular Hemoglobin Concent 31.4L, Red Cell Distribution Width 13.1, Platelet Count 279, Mean Platelet Volume 6.4L, Neutrophils (%) (Auto) , Lymphocytes (%) (Auto) , Monocytes (%) (Auto) , Eosinophils (%) (Auto) , Basophils (%) (Auto) , Differential Total Cells Counted 100, Neutrophils % ( Manual) 69, Lymphocytes % (Manual) 21, Monocytes % (Manual) 7, Eosinophils % ( Manual) 3, Basophils % (Manual) 0, Band Neutrophils 0, Platelet Estimate Adequate, Platelet Morphology Normal, Hypochromasia 1+ 12/23/18 08:35: Arterial Blood pH 7.403, Arterial Blood Partial Pressure CO2 40.1, Arterial Blood Partial Pressure O2 128.5H, Arterial Blood HCO3 24.5, Arterial Blood Oxygen Saturation 98.0, Arterial Blood Base Excess -0.3, Luís Test Positive Height (Feet): 5 Height (Inches): 6.00 Weight (Pounds): 138 General Appearance: lethargic EENT: normal ENT inspection Neck: normal alignment Cardiovascular: normal peripheral pulses, normal rate, regular rhythm Respiratory/Chest: chest wall non-tender, lungs clear, normal breath sounds Abdomen: normal bowel sounds, non tender, soft Extremities: normal inspection Edema: no edema noted Arm (L), no edema noted Arm (R), no edema noted Leg (L), no edema noted Leg (R), no edema noted Pedal (L), no edema noted Pedal (R), no edema noted Generalized Neurologic: motor weakness Skin: normal pigmentation, warm/dry Rl White DO Dec 23, 2018 09:37
--- NOTE | 2018-12-23 10:00 | NUR ---
NURSE NOTES: DR. HUMPHRIES ORDERED FOR 2 "U" OF PRBC DUE TO HGB LEVEL. WILL CONTINUE TO MONITOR.
--- NOTE | 2018-12-23 10:10 | Diagnostic Imaging Report ---
EXAM: XR Chest, 1 View CLINICAL HISTORY: DYSPNEA TECHNIQUE: Frontal view of the chest. COMPARISON: Chest x-rays dated 12/22/18 FINDINGS: Lungs: Unchanged diffuse bilateral interstitial opacities. Pleural space: No definite residual pneumothorax visualized. Heart: Unremarkable. No cardiomegaly. Mediastinum: Unremarkable. Bones/joints: Unremarkable. Soft tissues: No significant change in diffuse subcutaneous emphysema in the chest wall and neck soft tissues. Tubes, lines and devices: Stable positioning of the endotracheal tube and bilateral chest tubes. Telemetry leads overlie the thorax. IMPRESSION: No significant interval change compared to the prior chest x-ray.
--- NOTE | 2018-12-23 10:55 | NUR ---
NURSE NOTES: CALLED AND LEFT A MESSAGE TO [facility] RE CONSENT FOR BLOOD TRANSFUSION. AWAITING FOR CALL BACK.
[2018-12-23] MEDS: Vancomycin 750mg/NS 275ml IVPB SCH ×2 (11:33)
--- NOTE | 2018-12-23 12:36 | Nephrology Progress Note ---
Assessment/Plan Problem List: (1) Acute on chronic renal failure (2) Acute and chronic respiratory failure (3) Pneumothorax (4) Cardiomyopathy Assessment acute on chronic Renal failure Acute on chronic respiratory failure Pneumothorax Anemia UTI HypoAlbuminemia HTN PEG Sz Disorder Cardiomyopathy Full code status ! Plan Hydrate- stop synthroid- very low TSH Monitor renal parameters Anemia bryant antibiotics avoid nephrotoxics optimize cardiac and pulm status per orders Subjective ROS Limited/Unobtainable: Yes Objective Objective Last 24 Hour Vital Signs Date Time Temp Pulse Resp B/P (MAP) Pulse Ox O2 Delivery O2 Flow Rate FiO2 12/23/18 12:00 99.3 71 17 134/67 (89) 100 12/23/18 12:00 Mechanical Ventilator 12/23/18 12:00 40 12/23/18 11:16 72 19 40 12/23/18 11:00 68 16 131/65 (87) 100 12/23/18 10:00 71 17 124/105 (111) 100 12/23/18 09:34 99.3 12/23/18 09:21 100 12/23/18 09:16 77 27 40 12/23/18 09:00 72 18 137/50 (79) 100 12/23/18 08:00 67 12/23/18 08:00 Mechanical Ventilator 12/23/18 08:00 40 12/23/18 08:00 99.3 72 18 137/50 (79) 100 12/23/18 07:00 69 18 137/50 (79) 100 12/23/18 06:56 76 22 40 12/23/18 06:00 99.1 68 17 137/56 (83) 100 12/23/18 05:18 68 18 40 12/23/18 05:00 68 17 120/58 (78) 100 12/23/18 04:00 81 12/23/18 04:00 40 12/23/18 04:00 99.2 80 22 144/88 (106) 100 12/23/18 04:00 Mechanical Ventilator 12/23/18 03:03 71 18 40 12/23/18 03:00 69 17 138/68 (91) 100 12/23/18 02:00 69 19 137/71 (93) 100 12/23/18 01:08 67 17 40 12/23/18 01:00 74 18 121/55 (77) 100 12/23/18 00:00 86 12/23/18 00:00 Mechanical Ventilator 12/23/18 00:00 99.4 73 19 124/87 (99) 100 12/22/18 23:05 75 21 40 12/22/18 23:00 73 19 115/55 (75) 100 12/22/18 22:00 121/55 12/22/18 22:00 99.7 81 20 96/47 (63) 100 12/22/18 21:30 81 25 40 12/22/18 21:00 100.6 73 17 116/42 (66) 100 12/22/18 20:00 79 12/22/18 20:00 99.9 70 16 110/43 (65) 100 12/22/18 20:00 Mechanical Ventilator 12/22/18 20:00 40 12/22/18 19:03 76 19 Mechanical Ventilator 40 12/22/18 19:03 75 19 40 12/22/18 19:00 74 18 121/55 (77) 100 12/22/18 18:00 81 21 136/85 (102) 100 12/22/18 17:20 77 17 40 12/22/18 17:00 98.6 83 21 142/95 (111) 100 12/22/18 16:00 40 12/22/18 16:00 Mechanical Ventilator 12/22/18 16:00 85 19 151/56 (87) 100 12/22/18 15:48 87 12/22/18 15:15 80 18 40 12/22/18 15:00 84 22 121/84 (96) 100 12/22/18 14:00 76 20 98/75 (83) 100 12/22/18 13:23 76 18 40 12/22/18 13:00 77 18 134/60 (84) 100 Intake and Output 12/22/18 12/23/18 19:00 07:00 Intake Total 1778.0 ml 2292 ml Output Total 1101 ml 855 ml Balance 677.0 ml 1437 ml Free Water 30 ml 50 ml IV Total 1628.0 ml 1842 ml Tube Feeding 120 ml 400 ml Output Urine Total 1095 ml 855 ml Chest Tube Drainage Total 6 ml # Bowel Movements 1 Laboratory Tests 12/23/18 04:00: Sodium Level 146H, Potassium Level 3.8, Chloride Level 111H, Carbon Dioxide Level 27, Anion Gap 8, Blood Urea Nitrogen 24H, Creatinine 1.2, Estimat Glomerular Filtration Rate , Glucose Level 100, Hemoglobin A1c 6.0, Lactic Acid Level 0.70, Uric Acid 3.9, Calcium Level 8.8, Phosphorus Level 2.4L, Magnesium Level 2.1, Iron Level 17L, Total Iron Binding Capacity 174L, Percent Iron Saturation 10L, Unsaturated Iron Binding 157, Ferritin 610H, Total Bilirubin 0.3 , Gamma Glutamyl Transpeptidase 25, Aspartate Amino Transf (AST/SGOT) 28, Alanine Aminotransferase (ALT/SGPT) 26, Alkaline Phosphatase 70, Total Creatine Kinase 207, Troponin I 0.009, C-Reactive Protein, Quantitative 17.2H, Pro-B- Type Natriuretic Peptide 1297H, Total Protein 7.7, Albumin 2.2L, Globulin 5.5, Albumin/Globulin Ratio 0.4L, Triglycerides Level 66, Cholesterol Level 126, LDL Cholesterol 76, HDL Cholesterol 42, Cholesterol/HDL Ratio 3.0L, Vitamin B12 Level 1638H, Folate 70.2H, Thyroid Stimulating Hormone (TSH) 0.021L 12/23/18 06:22: White Blood Count 15.0H, Red Blood Count 2.66L, Hemoglobin 7.7L, Hematocrit 24.6L, Mean Corpuscular Volume 93, Mean Corpuscular Hemoglobin 29.1, Mean Corpuscular Hemoglobin Concent 31.4L, Red Cell Distribution Width 13.1, Platelet Count 279, Mean Platelet Volume 6.4L, Neutrophils (%) (Auto) , Lymphocytes (%) (Auto) , Monocytes (%) (Auto) , Eosinophils (%) (Auto) , Basophils (%) (Auto) , Differential Total Cells Counted 100, Neutrophils % ( Manual) 69, Lymphocytes % (Manual) 21, Monocytes % (Manual) 7, Eosinophils % ( Manual) 3, Basophils % (Manual) 0, Band Neutrophils 0, Platelet Estimate Adequate, Platelet Morphology Normal, Hypochromasia 1+ 12/23/18 08:35: Arterial Blood pH 7.403, Arterial Blood Partial Pressure CO2 40.1, Arterial Blood Partial Pressure O2 128.5H, Arterial Blood HCO3 24.5, Arterial Blood Oxygen Saturation 98.0, Arterial Blood Base Excess -0.3, Luís Test Positive Height (Feet): 5 Height (Inches): 6.00 Weight (Pounds): 138 General Appearance: no apparent distress EENT: other - vented Cardiovascular: normal rate Respiratory/Chest: decreased breath sounds, other - chest tubes both sides Abdomen: distended Tono Case MD Dec 23, 2018 12:36
--- NOTE | 2018-12-23 13:00 | NUR ---
NURSE NOTES: SEEN AND EXAMINED BY DR LEBLANC. CONSENT GIVEN TO START THE TRANSFUSION. WILL CONTINUE TO MONITOR.
--- NOTE | 2018-12-23 13:20 | Surgery Progress Note ---
Surgery Progress Note Subjective Additional Comments leukocytosis trending down crepitus improved today micro noted labs noted chest tube without leak today when seen. on suction Objective Last 24 Hour Vital Signs Date Time Temp Pulse Resp B/P (MAP) Pulse Ox O2 Delivery O2 Flow Rate FiO2 12/23/18 12:00 70 12/23/18 12:00 99.3 71 17 134/67 (89) 100 12/23/18 12:00 Mechanical Ventilator 12/23/18 12:00 40 12/23/18 11:16 72 19 40 12/23/18 11:00 68 16 131/65 (87) 100 12/23/18 10:00 71 17 124/105 (111) 100 12/23/18 09:34 99.3 12/23/18 09:21 100 12/23/18 09:16 77 27 40 12/23/18 09:00 72 18 137/50 (79) 100 12/23/18 08:00 67 12/23/18 08:00 Mechanical Ventilator 12/23/18 08:00 40 12/23/18 08:00 99.3 72 18 137/50 (79) 100 12/23/18 07:00 69 18 137/50 (79) 100 12/23/18 06:56 76 22 40 12/23/18 06:00 99.1 68 17 137/56 (83) 100 12/23/18 05:18 68 18 40 12/23/18 05:00 68 17 120/58 (78) 100 12/23/18 04:00 81 12/23/18 04:00 40 12/23/18 04:00 99.2 80 22 144/88 (106) 100 12/23/18 04:00 Mechanical Ventilator 12/23/18 03:03 71 18 40 12/23/18 03:00 69 17 138/68 (91) 100 12/23/18 02:00 69 19 137/71 (93) 100 12/23/18 01:08 67 17 40 12/23/18 01:00 74 18 121/55 (77) 100 12/23/18 00:00 86 12/23/18 00:00 Mechanical Ventilator 12/23/18 00:00 99.4 73 19 124/87 (99) 100 12/22/18 23:05 75 21 40 12/22/18 23:00 73 19 115/55 (75) 100 12/22/18 22:00 121/55 12/22/18 22:00 99.7 81 20 96/47 (63) 100 12/22/18 21:30 81 25 40 12/22/18 21:00 100.6 73 17 116/42 (66) 100 12/22/18 20:00 79 12/22/18 20:00 99.9 70 16 110/43 (65) 100 12/22/18 20:00 Mechanical Ventilator 12/22/18 20:00 40 12/22/18 19:03 76 19 Mechanical Ventilator 40 12/22/18 19:03 75 19 40 12/22/18 19:00 74 18 121/55 (77) 100 12/22/18 18:00 81 21 136/85 (102) 100 12/22/18 17:20 77 17 40 12/22/18 17:00 98.6 83 21 142/95 (111) 100 12/22/18 16:00 40 12/22/18 16:00 Mechanical Ventilator 12/22/18 16:00 85 19 151/56 (87) 100 12/22/18 15:48 87 12/22/18 15:15 80 18 40 12/22/18 15:00 84 22 121/84 (96) 100 12/22/18 14:00 76 20 98/75 (83) 100 12/22/18 13:23 76 18 40 I&O Intake and Output 12/22/18 12/23/18 19:00 07:00 Intake Total 1778.0 ml 2292 ml Output Total 1101 ml 855 ml Balance 677.0 ml 1437 ml Free Water 30 ml 50 ml IV Total 1628.0 ml 1842 ml Tube Feeding 120 ml 400 ml Output Urine Total 1095 ml 855 ml Chest Tube Drainage Total 6 ml # Bowel Movements 1 Dressing: dry Wound: clean Drains: other Cardiovascular: RSR Respiratory: decreased breath sounds Abdomen: soft, non-distended, decreased bowel sounds Extremities: no tenderness, no cyanosis Laboratory Tests Test 12/23/18 04:00 12/23/18 06:22 12/23/18 08:35 Sodium Level 146 MMOL/L (136-145) H Potassium Level 3.8 MMOL/L (3.5-5.1) Chloride Level 111 MMOL/L (98-107) H Carbon Dioxide Level 27 MMOL/L (21-32) Anion Gap 8 mmol/L (5-15) Blood Urea Nitrogen 24 mg/dL (7-18) H Creatinine 1.2 MG/DL (0.55-1.30) Estimat Glomerular Filtration Rate mL/min (>60) Glucose Level 100 MG/DL (74-106) Hemoglobin A1c 6.0 % (4.3-6.0) Lactic Acid Level 0.70 mmol/L (0.4-2.0) Uric Acid 3.9 MG/DL (2.6-7.2) Calcium Level 8.8 MG/DL (8.5-10.1) Phosphorus Level 2.4 MG/DL (2.5-4.9) L Magnesium Level 2.1 MG/DL (1.8-2.4) Iron Level 17 ug/dL (50-175) L Total Iron Binding Capacity 174 ug/dL (250-450) L Percent Iron Saturation 10 % (15-50) L Unsaturated Iron Binding 157 ug/dL (112-346) Ferritin 610 NG/ML (8-388) H Total Bilirubin 0.3 MG/DL (0.2-1.0) Gamma Glutamyl Transpeptidase 25 U/L (5-85) Aspartate Amino Transf (AST/SGOT) 28 U/L (15-37) Alanine Aminotransferase (ALT/SGPT) 26 U/L (12-78) Alkaline Phosphatase 70 U/L (46-116) Total Creatine Kinase 207 U/L (26-308) Troponin I 0.009 ng/mL (0.000-0.056) C-Reactive Protein, Quantitative 17.2 mg/dL (0.00-0.90) H Pro-B-Type Natriuretic Peptide 1297 pg/mL (0-125) H Total Protein 7.7 G/DL (6.4-8.2) Albumin 2.2 G/DL (3.4-5.0) L Globulin 5.5 g/dL Albumin/Globulin Ratio 0.4 (1.0-2.7) L Triglycerides Level 66 MG/DL (30-150) Cholesterol Level 126 MG/DL (< 200) LDL Cholesterol 76 mg/dL (<100) HDL Cholesterol 42 MG/DL (40-60) Cholesterol/HDL Ratio 3.0 (3.3-4.4) L Vitamin B12 Level 1638 PG/ML (193-986) H Folate 70.2 NG/ML (8.6-58.9) H Thyroid Stimulating Hormone (TSH) 0.021 uiU/mL (0.358-3.740) White Blood Count 15.0 K/UL (4.8-10.8) H Red Blood Count 2.66 M/UL (4.20-5.40) L Hemoglobin 7.7 G/DL (12.0-16.0) L Hematocrit 24.6 % (37.0-47.0) L Mean Corpuscular Volume 93 FL (80-99) Mean Corpuscular Hemoglobin 29.1 PG (27.0-31.0) Mean Corpuscular Hemoglobin Concent 31.4 G/DL (32.0-36.0) L Red Cell Distribution Width 13.1 % (11.6-14.8) Platelet Count 279 K/UL (150-450) Mean Platelet Volume 6.4 FL (6.5-10.1) L Neutrophils (%) (Auto) % (45.0-75.0) Lymphocytes (%) (Auto) % (20.0-45.0) Monocytes (%) (Auto) % (1.0-10.0) Eosinophils (%) (Auto) % (0.0-3.0) Basophils (%) (Auto) % (0.0-2.0) Differential Total Cells Counted 100 Neutrophils % (Manual) 69 % (45-75) Lymphocytes % (Manual) 21 % (20-45) Monocytes % (Manual) 7 % (1-10) Eosinophils % (Manual) 3 % (0-3) Basophils % (Manual) 0 % (0-2) Band Neutrophils 0 % (0-8) Platelet Estimate Adequate Platelet Morphology Normal Hypochromasia 1+ Arterial Blood pH 7.403 (7.350-7.450) Arterial Blood Partial Pressure CO2 40.1 mmHg (35.0-45.0) Arterial Blood Partial Pressure O2 128.5 mmHg (75.0-100.0) H Arterial Blood HCO3 24.5 mmol/L (22.0-26.0) Arterial Blood Oxygen Saturation 98.0 % (95-100) Arterial Blood Base Excess -0.3 (-2-2) Luís Test Positive Plan Problems: (1) Pneumomediastinum (2) Hypoxia (3) Pneumonia (4) Pneumothorax Assessment & Plan: bilateral chest tubes placed prior small air leak noted - resolved on suction CXR with resolved ptx. lots of subcutaneous air. - improving cont chest tubes to suction AM CXR (5) Hypernatremia (6) Hypotension (7) Anemia (8) Seizure disorder (9) Septic shock Assessment & Plan: In ICU intubated on vent CXR noted labs noted cont IV ABx cont vent chest tubes critically ill prognosis guarded (10) HTN (hypertension) (11) Cardiomyopathy (12) Sepsis (13) Acute and chronic respiratory failure (14) Tracheostomy care (15) Bowel obstruction (16) Feeding by G-tube Assessment & Plan: DAILY ESTIMATED NEEDS: Needs based on Critical Care, wound 63kg 22-28 kcals/kg 8174-3997 total kcals 1.25-2 g protein/kg 78-126 g total protein 25-30 mL/kg 2137-9641 total fluid mLs NUTRITION DIAGNOSIS: * Swallowing difficulty R/T respiratory status, dysphagia as evidenced by pt is trach/vent + PEG dep, s/p respiratory distress, currently orally intubated, NPO. * Increased kcal/prot needs R/T wound healing as evidenced by pt admitted w/ BL malleolus wounds, pending eval. CURRENT TF:NPO ENTERAL NUTRITION RECOMMENDATIONS: Glucerna 1.2 @ 60ml/hr x 22 hrs + Prosource 1pkt daily to provide 1320ml, 1584kcal, 79g + 11g prot, 1065ml free water - Once medically appropriate, initiate TF on Glucerna 1.2 @ 20ml/hr x 6 hrs. - Advance 10ml q 4-6 hrs as tolerated to goal rate - HOB >30 degrees/ water flushes per MD - Add Prosource 1pkt daily to better meet protein needs. - Hold 1 hour before and after Synthroid med. ADDITIONAL RECOMMENDATIONS: 1) Calibrated bedscale wts 2) Monitor lytes, replete as needed 3) Monitor BGs closely, need for hypoglycemic agents (BG 245 upon adm, now improved) 4) F/up w/ wound eval -Rec Tommie 1pkt BID and Vit C 250mg QD for wound healing (17) Malfunction of gastrostomy tube (18) Chronic respiratory failure (19) Chronic vegetative state (20) Nosocomial pneumonia (21) Fecal impaction (22) ATN (acute tubular necrosis) (23) Ileus (24) Acute on chronic renal failure (25) UTI (urinary tract infection) Livan Dean Dec 23, 2018 13:20
[2018-12-23] MEDS ORDERED: Miralax 17gm pkt GT PRN (13:30)
[2018-12-23] MEDS: Acetaminophen 650mg/20.3ml GT PRN (13:35)
--- NOTE | 2018-12-23 14:26 | NUR ---
NURSE NOTES: DR CRAWFORD ORDERED TO TRANSFUSE BLOOD WITH TEMP OF 99.8. WILL CONTINUE TO MONITOR.
--- NOTE | 2018-12-23 15:00 | Pulmonolgy Critical Care Note ---
Critical Care - Asmt/Plan Problems: (1) Acute and chronic respiratory failure (2) Pneumothorax (3) Hypernatremia (4) Seizure disorder (5) Chronic vegetative state (6) Feeding by G-tube (7) Cardiomyopathy Respiratory: monitor respiratory rate, adjust FIO2, CXR Cardiac: continue to monitor HR/BP Renal: F/U I&O, keep IV fluid, check electrolytes Infectious Disease: check cultures Gastrointestinal: continue feedings/current rate Endocrine: monitor blood sugar Hematologic: monitor H/H, transfuse if hgb<8.5 Neurologic: PRN Ativan, keep patient comfortable Affect: PRN ativan Prophylaxis: Protonix Notes Reviewed: director compliance, cardio Discussed with: nurses, consultants, catalytic case operatorjanitorial account manager - Objective Last 24 Hour Vital Signs Date Time Temp Pulse Resp B/P (MAP) Pulse Ox O2 Delivery O2 Flow Rate FiO2 12/23/18 13:14 80 27 40 12/23/18 12:00 70 12/23/18 12:00 99.3 71 17 134/67 (89) 100 12/23/18 12:00 Mechanical Ventilator 12/23/18 12:00 40 12/23/18 11:16 72 19 40 12/23/18 11:00 68 16 131/65 (87) 100 12/23/18 10:00 71 17 124/105 (111) 100 12/23/18 09:34 99.3 12/23/18 09:21 100 12/23/18 09:16 77 27 40 12/23/18 09:00 72 18 137/50 (79) 100 12/23/18 08:00 67 12/23/18 08:00 Mechanical Ventilator 12/23/18 08:00 40 12/23/18 08:00 99.3 72 18 137/50 (79) 100 12/23/18 07:00 69 18 137/50 (79) 100 12/23/18 06:56 76 22 40 12/23/18 06:00 99.1 68 17 137/56 (83) 100 12/23/18 05:18 68 18 40 12/23/18 05:00 68 17 120/58 (78) 100 12/23/18 04:00 81 12/23/18 04:00 40 12/23/18 04:00 99.2 80 22 144/88 (106) 100 12/23/18 04:00 Mechanical Ventilator 12/23/18 03:03 71 18 40 12/23/18 03:00 69 17 138/68 (91) 100 12/23/18 02:00 69 19 137/71 (93) 100 12/23/18 01:08 67 17 40 12/23/18 01:00 74 18 121/55 (77) 100 12/23/18 00:00 86 12/23/18 00:00 Mechanical Ventilator 12/23/18 00:00 99.4 73 19 124/87 (99) 100 12/22/18 23:05 75 21 40 12/22/18 23:00 73 19 115/55 (75) 100 12/22/18 22:00 121/55 12/22/18 22:00 99.7 81 20 96/47 (63) 100 12/22/18 21:30 81 25 40 12/22/18 21:00 100.6 73 17 116/42 (66) 100 12/22/18 20:00 79 12/22/18 20:00 99.9 70 16 110/43 (65) 100 12/22/18 20:00 Mechanical Ventilator 12/22/18 20:00 40 12/22/18 19:03 76 19 Mechanical Ventilator 40 12/22/18 19:03 75 19 40 12/22/18 19:00 74 18 121/55 (77) 100 12/22/18 18:00 81 21 136/85 (102) 100 12/22/18 17:20 77 17 40 12/22/18 17:00 98.6 83 21 142/95 (111) 100 12/22/18 16:00 40 12/22/18 16:00 Mechanical Ventilator 12/22/18 16:00 85 19 151/56 (87) 100 12/22/18 15:48 87 12/22/18 15:15 80 18 40 12/22/18 15:00 84 22 121/84 (96) 100 Status: awake Condition: grave Lungs: chest wall tender Heart: HR/BP stable Abdomen: non-tender, feeding tube Extremities: edema Micro: Microbiology Date/Time Source Procedure Growth Status 12/21/18 18:35 Blood Blood Culture - Preliminary Resulted 12/21/18 18:20 Blood Blood Culture - Preliminary NO GROWTH AFTER 24 HOURS Resulted 12/22/18 02:30 Sputum Induced Gram Stain - Final Resulted 12/22/18 02:30 Sputum Culture - Preliminary Haemophilus Influenzae Resulted 12/21/18 23:00 Rectum Received Critical Care - Subjective ROS Limited/Unobtainable: Yes EKG Rhythm: Sinus Rhythm FI02: 40 Vent Support Breath Rate: 16 Vent Support Mode: AC Vent Tidal Volume: 500 Sputum Amount: Moderate PEEP: 5.0 PIP: 24 Tube Feeding Amount: 50 I&O: Intake and Output 12/22/18 12/23/18 19:00 07:00 Intake Total 1778.0 ml 2292 ml Output Total 1101 ml 855 ml Balance 677.0 ml 1437 ml Free Water 30 ml 50 ml IV Total 1628.0 ml 1842 ml Tube Feeding 120 ml 400 ml Output Urine Total 1095 ml 855 ml Chest Tube Drainage Total 6 ml # Bowel Movements 1 ET-Tube: 7.0 ET Position: 24 Labs: Laboratory Tests Test 12/23/18 04:00 12/23/18 06:22 12/23/18 08:35 Sodium Level 146 MMOL/L (136-145) H Potassium Level 3.8 MMOL/L (3.5-5.1) Chloride Level 111 MMOL/L (98-107) H Carbon Dioxide Level 27 MMOL/L (21-32) Anion Gap 8 mmol/L (5-15) Blood Urea Nitrogen 24 mg/dL (7-18) H Creatinine 1.2 MG/DL (0.55-1.30) Estimat Glomerular Filtration Rate mL/min (>60) Glucose Level 100 MG/DL (74-106) Hemoglobin A1c 6.0 % (4.3-6.0) Lactic Acid Level 0.70 mmol/L (0.4-2.0) Uric Acid 3.9 MG/DL (2.6-7.2) Calcium Level 8.8 MG/DL (8.5-10.1) Phosphorus Level 2.4 MG/DL (2.5-4.9) L Magnesium Level 2.1 MG/DL (1.8-2.4) Iron Level 17 ug/dL (50-175) L Total Iron Binding Capacity 174 ug/dL (250-450) L Percent Iron Saturation 10 % (15-50) L Unsaturated Iron Binding 157 ug/dL (112-346) Ferritin 610 NG/ML (8-388) H Total Bilirubin 0.3 MG/DL (0.2-1.0) Gamma Glutamyl Transpeptidase 25 U/L (5-85) Aspartate Amino Transf (AST/SGOT) 28 U/L (15-37) Alanine Aminotransferase (ALT/SGPT) 26 U/L (12-78) Alkaline Phosphatase 70 U/L (46-116) Total Creatine Kinase 207 U/L (26-308) Troponin I 0.009 ng/mL (0.000-0.056) C-Reactive Protein, Quantitative 17.2 mg/dL (0.00-0.90) H Pro-B-Type Natriuretic Peptide 1297 pg/mL (0-125) H Total Protein 7.7 G/DL (6.4-8.2) Albumin 2.2 G/DL (3.4-5.0) L Globulin 5.5 g/dL Albumin/Globulin Ratio 0.4 (1.0-2.7) L Triglycerides Level 66 MG/DL (30-150) Cholesterol Level 126 MG/DL (< 200) LDL Cholesterol 76 mg/dL (<100) HDL Cholesterol 42 MG/DL (40-60) Cholesterol/HDL Ratio 3.0 (3.3-4.4) L Vitamin B12 Level 1638 PG/ML (193-986) H Folate 70.2 NG/ML (8.6-58.9) H Thyroid Stimulating Hormone (TSH) 0.021 uiU/mL (0.358-3.740) White Blood Count 15.0 K/UL (4.8-10.8) H Red Blood Count 2.66 M/UL (4.20-5.40) L Hemoglobin 7.7 G/DL (12.0-16.0) L Hematocrit 24.6 % (37.0-47.0) L Mean Corpuscular Volume 93 FL (80-99) Mean Corpuscular Hemoglobin 29.1 PG (27.0-31.0) Mean Corpuscular Hemoglobin Concent 31.4 G/DL (32.0-36.0) L Red Cell Distribution Width 13.1 % (11.6-14.8) Platelet Count 279 K/UL (150-450) Mean Platelet Volume 6.4 FL (6.5-10.1) L Neutrophils (%) (Auto) % (45.0-75.0) Lymphocytes (%) (Auto) % (20.0-45.0) Monocytes (%) (Auto) % (1.0-10.0) Eosinophils (%) (Auto) % (0.0-3.0) Basophils (%) (Auto) % (0.0-2.0) Differential Total Cells Counted 100 Neutrophils % (Manual) 69 % (45-75) Lymphocytes % (Manual) 21 % (20-45) Monocytes % (Manual) 7 % (1-10) Eosinophils % (Manual) 3 % (0-3) Basophils % (Manual) 0 % (0-2) Band Neutrophils 0 % (0-8) Platelet Estimate Adequate Platelet Morphology Normal Hypochromasia 1+ Arterial Blood pH 7.403 (7.350-7.450) Arterial Blood Partial Pressure CO2 40.1 mmHg (35.0-45.0) Arterial Blood Partial Pressure O2 128.5 mmHg (75.0-100.0) H Arterial Blood HCO3 24.5 mmol/L (22.0-26.0) Arterial Blood Oxygen Saturation 98.0 % (95-100) Arterial Blood Base Excess -0.3 (-2-2) Luís Test Positive Sue Yu MD Dec 23, 2018 15:00
--- NOTE | 2018-12-23 16:30 | NUR ---
NURSE NOTES: PATIENT KEPT CLEAN AND DRY. TEMP AT 98.4. TOLERATED BLOOD TRANSFUSION. WILL CONTINUE TO MONITOR.
--- NOTE | 2018-12-23 18:08 | NUR ---
NURSE NOTES: TOLERATED FEEDING AND VENT SETTINGS. NO SIGNS OF DISTRESS. CHEST TUBE IN PLACE, DRY AND INTACT. NOTED OUTPUT 4ML FOR L AND ON R CHEST TUBE. WILL CONTINUE OT MONITOR.
--- NOTE | 2018-12-23 18:43 | NUR ---
NURSE NOTES: STARTED 2ND BLOOD. WILL CONTINUE TO MONITOR.
--- NOTE | 2018-12-23 19:15 | NUR ---
NURSE NOTES: RECEIVED PATIENT FROM RONDA OJEDA. PATIENT IS LYING IN BED, ASLEEP. NONVERBAL. HOOKED TO PHARMACEUTICAL SALES REPRESENTATIVE. ORALLY INTUBATED. ETT 7.5, 24CM LIP LINE. VET SETTINGS AC 16, VT 600, FIO2 40%, PEEP 5. NO SIGNS OF DISTRESS. GT IN PLACE, GTF GLUCERNA 1.2 AT 50CC/HR, GOAL OF 60CC/HR. RIVAS CONNECTED TO BAG, PATENT AND DRAINING. SKIN ALTERATION NOTED. L FA TLC, PATENT, DRESSING INTACT. SIDE RAILS PADDED. CALL LIGHT WITHIN REACH. SIDE RAILS UP. BED AT LOWEST POSITION. WILL CONTINUE TO MONITOR.
--- NOTE | 2018-12-23 19:15 | NUR ---
RESPIRATORY NOTE: PT. RECEIVED STABLE ON AC/VC 16, 500, 40%, +5. ALARMS ON AND AUDIBLE. ETT SECURE AND PATENT. VENT CIRCUIT SECURE AND OUT OF THE WAY. NO SIGN OF RESPIRATORY DISTRESS NOTED AT THIS TIME. WILL CONTINUE TO MONITOR.
--- NOTE | 2018-12-23 19:29 | NUR ---
HAND-OFF: Report given to Glen Haney RN.
--- NOTE | 2018-12-23 19:30 | NUR ---
NURSE NOTES: dr. ha at bedside assessing patient.
--- NOTE | 2018-12-23 19:52 | NUR ---
NURSE NOTES: patient currently receiving PRBC 2/2 bag. No rxt observed so far. Vitals remains stable.
[2018-12-23] MEDS: Dyna-Hex 2% Top Sol 2oz TOPIC SCH (20:47)
--- NOTE | 2018-12-23 22:00 | NUR ---
NURSE NOTES: 2/2 PRBC infused. No reactions observed. Vitals remains stable. Patient given lavage. Large amounts of yellow frothy sputum observed. Heels off loaded. Patient repositioned. Oral care also provided. NAD at this time. Perineal care provided.
--- NOTE | 2018-12-23 23:45 | Consultation ---
DATE OF CONSULTATION: 12/23/2018 GASTROENTEROLOGY CONSULTATION C CHIEF COMPLAINT: Anemia. HISTORY OF PRESENT ILLNESS: Most of the history is per chart. The patient currently is a [facility] patient with chronic trach and chronic PEG. Apparently, they were trying to change the trach at the [facility] and the patient became hypoxic. 911 was called and the patient was back to the hospital ____ is intubated. The patient had a drop in hemoglobin and hematocrit down to 7. So, GI consult was requested for further evaluation. On talking to the nurses at the bedside, there was no obvious bleeding. This patient is known to me from prior admission starting in August 2018. At that time, stool OB was negative and her hemoglobin was about the range 8.5. She has had numerous medical problems, which I will dictate in a second. PAST MEDICAL HISTORY: 1. History of chronic respiratory failure. On the trach. 2. Dysphagia with percutaneous endoscopic gastrostomy. 3. Chronic anemia. 4. Seizure disorder. 5. Cardiomyopathy. 6. Fecal impaction. 7. Acute on chronic renal disease. 8. History of pneumonia. 9. Chronic vegetative state. PAST SURGICAL HISTORY: Tracheostomy. MEDICATIONS: Please see medication reconciliation list. ALLERGIES: Aspirin. SOCIAL HISTORY: Currently lives in a [facility]. No recent history of tobacco, alcohol, or drug abuse. FAMILY HISTORY: Noncontributory. REVIEW OF SYSTEMS: Unable to obtain. PHYSICAL EXAMINATION: VITAL SIGNS: Temperature is 98.1, pulse 67, respirations 20, and blood pressure 110/74. HEENT: Normocephalic and atraumatic. Pale conjunctivae. NECK: Supple. No evidence of lymphadenopathy. CARDIOVASCULAR: Tachycardic. Regular rate. Plus S1, S2. LUNGS: Decreased breath sounds bilaterally based on the supine exam. ABDOMEN: Soft. Mildly distended. Mildly tympanic to percussion. Bowel sounds are hypoactive. No rebound. No guarding. No peritoneal sign. EXTREMITIES: No cyanosis. No clubbing. LABORATORY DATA: Sodium 143, potassium 3.8, BUN is 24, and creatinine is 1.2. White count is 15, hemoglobin 7.7, hematocrit 24, and platelet count is 279,000. ASSESSMENT AND PLAN: This is an 83-year-old female with chronic respiratory failure with trach and percutaneous endoscopic gastrostomy, came to the hospital with respiratory failure, now with profound anemia, obvious overt gastrointestinal bleeding. PLAN: 1. Continue on PPI. 2. Bowel regimen including Colace, MiraLAX, and lactulose. 3. KUB to evaluate for fecal impaction. 4. Stool for OB. 5. We will consider doing endoscopy if the stool OB comes back positive. Meanwhile, the patient is getting transfusion today. Continue NG tube feeding. After the x-ray and the laboratory results are back, we will make the decision regarding doing the endoscopy or not. I want to thank, Dr. Rl White, for this kind referral. Jad Skinner M.D. DR: MATTHEW JOB#: [id number] CC: Rl White D.O.
[2018-12-24] VITALS (26 sets, daily range): BP systolic 99–149; BP diastolic 28–102
--- NOTE | 2018-12-24 | NUR ---
NURSE NOTES: Patient had formed BM, brown to green in color, collected OB stool and sent to lab.
[2018-12-24] MEDS: Amikacin 500 MG in D5W 110 ML IV SCH (00:08)
[2018-12-24] MEDS: Acetaminophen 650mg/20.3ml GT PRN ×3 (00:09→20:12)
--- NOTE | 2018-12-24 02:00 | NUR ---
NURSE NOTES: Patient repositioned, pillows adjusted, suctioned. NAD at this time, no seizure activity has been observed.
--- NOTE | 2018-12-24 04:00 | NUR ---
NURSE NOTES: Patient repositioned and given oral care. Patient cleaned and kept dry. Abnevaeh andrew. Lab draw and sent. No acute distress at this time, will continue to monitor.
[2018-12-24] MEDS: Piperacillin/Tazobactam 3.375 GM in NS 110 ML IVPB SCH ×3 (04:34→20:11)
--- NOTE | 2018-12-24 05:10 | NUR ---
RESPIRATORY NOTE: PT REMAINED STABLE ON CMV WITH CURRENT SETTINGS. SXN'D PRN WITH NO ADVERSE REACTION. AIRWAY SECURE AND PATENT. VENT CIRCUIT AND SX TUBING SECURE AND OUT OF THE WAY. NO SIGN OF RESPIRATORY DISTRESS NOTED AT THIS TIME.
[2018-12-24 05:31] LABS: BASOPHILS % (AUTO) 0.7 % (0.0-2.0); EOSINOPHILS % (AUTO) 3.8 % (0.0-3.0); HEMATOCRIT 29.4 % (37.0-47.0); HEMOGLOBIN 9.7 G/DL (12.0-16.0); LYMPHOCYTES % (AUTO) 13.2 % (20.0-45.0); MEAN CORPUSCULAR VOLUME 90 FL (80-99); MONOCYTES % (AUTO) 6.4 % (1.0-10.0); PLATELET COUNT 292 K/UL (150-450); RED BLOOD COUNT 3.25 M/UL (4.20-5.40); RED CELL DISTRIBUTION WIDTH 13.4 % (11.6-14.8); WHITE BLOOD COUNT 16.4 K/UL (4.8-10.8)
--- NOTE | 2018-12-24 06:00 | NUR ---
NURSE NOTES: Patient sleeping, HR dipping in the mid 40s. Lowest was 46 SB. BP 99/83
[2018-12-24 06:10] LABS: ALANINE AMINOTRANSFERASE 28 U/L (12-78); ALBUMIN 2.3 G/DL (3.4-5.0); ALBUMIN/GLOBULIN RATIO 0.4 (1.0-2.7); ALKALINE PHOSPHATASE 78 U/L (46-116); ANION GAP 8 mmol/L (5-15); ASPARTATE AMINO TRANSFERASE 21 U/L (15-37); BILIRUBIN,DIRECT < 0.1 MG/DL (0.0-0.3); BILIRUBIN,TOTAL 0.2 MG/DL (0.2-1.0); BLOOD UREA NITROGEN 29 mg/dL (7-18); CALCIUM 9.1 MG/DL (8.5-10.1); CARBON DIOXIDE 28 MMOL/L (21-32); CHLORIDE 111 MMOL/L (98-107); PHOSPHORUS 2.1 MG/DL (2.5-4.9); POTASSIUM 4.1 MMOL/L (3.5-5.1); SODIUM 147 MMOL/L (136-145)
--- NOTE | 2018-12-24 07:30 | NUR ---
RESPIRATORY NOTE: received pt intubated with ett 7.0, placed 24cm at the lip secured via anchor fast. no redness or skin tears visible around mouth, facial, neck area. pt currently has opa in place to prevent biting on ett. pt on current vent settings with no resp distress. alarms are set and audible with ambu bag at bedside. will cont to monitor.
--- NOTE | 2018-12-24 07:35 | NUR ---
NURSE NOTES: Report received from RONDA Thmopson. Pt in bed. opens eyes to tactile stimuli and respond to pain. Eyes are puffy and closed greater on right eye. Crepitus noted on face and upper chest. Both side chest tube, connected to suction. minimal drainage of bloody secretions. No air leaks noted. Sinus Fracisco on surveillance monitor. ETT 7.5/24cm, AC 16, TV 500, FiO2 40%, P 5. O2 sat 100%. G-tube in place, running Glucerna 1.2 at 60cc hr: goal 60cc/hr. Smith in place draining pale urine to gravity. placed securement devise on left thigh. Left femoral TLC patent and asymptomatic. NS is running at 50cc/hr. Right and left malleolus dressing dry and intact. Bed in lowest position. Side rails up x3. Call light within reach. Will continue to implement plan of care.
--- NOTE | 2018-12-24 08:10 | NUR ---
NURSE NOTES: RADIOLOGY HERE TO DO CXR
[2018-12-24] MEDS: Ascorbic Acid 500mg tab GT SCH (08:36)
[2018-12-24] MEDS: Docusate 100mg cap ORAL SCH ×2 (08:36→18:00)
[2018-12-24] MEDS: Lactulose 20gm/30ml UDC ORAL SCH ×3 (08:36→18:00)
[2018-12-24] MEDS: Pantoprazole Inj IV SCH ×2 (08:36→20:11)
[2018-12-24] MEDS: Amiodarone 200mg tab GT SCH (08:38)
[2018-12-24] MEDS: Heparin 5000 units/ml inj SUBQ SCH ×2 (08:44→20:13)
--- NOTE | 2018-12-24 09:14 | NUR ---
NURSE NOTES: R.T ATTEMPT TO WEAN PT. PT CLEANED AND REPOSITIONED. ORAL CARE PROVIDED. BILATERAL CHEST TUBES CONNECTED, UNKINKED AND FILLED TO WATER LEVEL. WILL CONTINUE TO MONITOR PT.
--- NOTE | 2018-12-24 09:16 | NUR ---
RESPIRATORY NOTE: placed pt on CPAP PS 8 at 0910. tolerating settings well as of now. will cont to monitor.
--- NOTE | 2018-12-24 09:16 | NUR ---
NURSE NOTES: MD FALK HERE TO SEE PT. WILL PLACE OWN ORDERS
--- NOTE | 2018-12-24 09:31 | General Progress Note ---
Assessment/Plan Problem List: (1) Acute and chronic respiratory failure ICD Codes: J96.20 - Acute and chronic respiratory failure, unspecified whether with hypoxia or hypercapnia SNOMED: 06221988 (2) Sepsis ICD Codes: A41.9 - Sepsis, unspecified organism SNOMED: 36575768 (3) HTN (hypertension) ICD Codes: I10 - Essential (primary) hypertension SNOMED: 99081469 (4) Seizure disorder ICD Codes: G40.909 - Epilepsy, unspecified, not intractable, without status epilepticus SNOMED: 883082323 (5) ATN (acute tubular necrosis) ICD Codes: N17.0 - Acute kidney failure with tubular necrosis SNOMED: 16871985 Status: unchanged Assessment/Plan: vent abx neph f/u cbc bmp am Subjective Constitutional: Reports: weakness Allergies: Coded Allergies: ASPIRIN (Verified Allergy, Unknown, 07/07/17) All Systems: reviewed and negative except above Subjective intubated sedated in icu Objective Last 24 Hour Vital Signs Date Time Temp Pulse Resp B/P (MAP) Pulse Ox O2 Delivery O2 Flow Rate FiO2 12/24/18 09:14 72 27 40 12/24/18 09:13 100 12/24/18 07:28 51 16 40 12/24/18 06:00 48 16 99/83 (88) 100 12/24/18 05:10 70 20 40 12/24/18 05:00 99.8 72 20 117/77 (90) 85 12/24/18 04:30 74 23 126/58 (80) 94 12/24/18 04:00 40 12/24/18 04:00 69 19 121/85 (97) 100 12/24/18 04:00 75 12/24/18 04:00 Mechanical Ventilator 12/24/18 03:30 71 21 104/75 (85) 95 12/24/18 03:16 69 19 40 12/24/18 03:00 70 20 149/56 (87) 94 12/24/18 02:00 72 22 137/65 (89) 100 12/24/18 01:00 75 22 133/102 (112) 99 12/24/18 00:50 73 19 40 12/24/18 00:00 Mechanical Ventilator 12/24/18 00:00 40 12/24/18 00:00 99.3 74 19 149/62 (91) 100 12/24/18 00:00 70 12/23/18 23:30 78 25 137/74 (95) 100 12/23/18 23:10 74 20 40 12/23/18 23:00 68 20 115/48 (70) 100 12/23/18 22:00 67 21 122/101 (108) 97 12/23/18 21:05 68 20 40 12/23/18 21:00 70 23 133/80 (97) 100 12/23/18 20:00 Mechanical Ventilator 12/23/18 20:00 68 12/23/18 20:00 40 12/23/18 20:00 99.5 66 19 107/63 (78) 12/23/18 19:15 63 21 40 12/23/18 19:00 65 19 126/83 (97) 96 12/23/18 18:00 67 20 139/74 (95) 100 12/23/18 17:27 70 20 40 12/23/18 17:00 67 20 139/74 (95) 100 12/23/18 16:00 98.1 62 16 139/51 (80) 100 12/23/18 16:00 61 12/23/18 16:00 Mechanical Ventilator 12/23/18 16:00 40 12/23/18 15:09 70 20 40 12/23/18 15:00 60 16 132/83 (99) 100 12/23/18 14:05 99.8 12/23/18 14:00 65 16 130/75 (93) 100 12/23/18 13:14 80 27 40 12/23/18 13:00 61 16 111/44 (66) 100 12/23/18 12:00 70 12/23/18 12:00 99.3 71 17 134/67 (89) 100 12/23/18 12:00 Mechanical Ventilator 12/23/18 12:00 40 12/23/18 11:16 72 19 40 12/23/18 11:00 68 16 131/65 (87) 100 12/23/18 10:00 71 17 124/105 (111) 100 12/23/18 09:34 99.3 Intake and Output 12/23/18 12/24/18 18:59 06:59 Intake Total 2254.916 ml 1752.5 ml Output Total 938 ml 1190 ml Balance 1316.916 ml 562.5 ml Free Water 0 ml IV Total 1524.916 ml 1002.5 ml Tube Feeding 610 ml 720 ml Blood Product 60 ml 30 ml Other 60 ml Output Urine Total 930 ml 1190 ml Chest Tube Drainage Total 8 ml # Bowel Movements 1 Laboratory Tests 12/24/18 00:30: Stool Occult Blood [Pending] 12/24/18 04:00: White Blood Count 16.4H, Red Blood Count 3.25L, Hemoglobin 9.7L, Hematocrit 29.4L, Mean Corpuscular Volume 90, Mean Corpuscular Hemoglobin 29.9, Mean Corpuscular Hemoglobin Concent 33.1, Red Cell Distribution Width 13.4, Platelet Count 292, Mean Platelet Volume 6.0L, Neutrophils (%) (Auto) 76.0H, Lymphocytes (%) (Auto) 13.2L, Monocytes (%) (Auto) 6.4, Eosinophils (%) (Auto) 3.8H, Basophils (%) (Auto) 0.7, Sodium Level 147H, Potassium Level 4.1, Chloride Level 111H, Carbon Dioxide Level 28, Anion Gap 8, Blood Urea Nitrogen 29H, Creatinine 1.0, Estimat Glomerular Filtration Rate , Glucose Level 101, Uric Acid 2.4L, Calcium Level 9.1, Phosphorus Level 2.1L, Magnesium Level 1.9, Total Bilirubin 0.2, Direct Bilirubin < 0.1, Aspartate Amino Transf (AST/SGOT) 21, Alanine Aminotransferase (ALT/SGPT) 28, Alkaline Phosphatase 78, C-Reactive Protein, Quantitative 18.4H, Pro-B-Type Natriuretic Peptide 2481H, Total Protein 8.0, Albumin 2.3L, Globulin 5.7, Albumin/Globulin Ratio 0.4L 12/24/18 08:47: Arterial Blood pH 7.412, Arterial Blood Partial Pressure CO2 42.0, Arterial Blood Partial Pressure O2 137.2H, Arterial Blood HCO3 26.1H, Arterial Blood Oxygen Saturation 98.2, Arterial Blood Base Excess 1.4, Luís Test Positive Height (Feet): 5 Height (Inches): 6.00 Weight (Pounds): 130 General Appearance: lethargic EENT: normal ENT inspection Neck: normal alignment Cardiovascular: normal peripheral pulses, normal rate, regular rhythm Respiratory/Chest: chest wall non-tender, decreased breath sounds Abdomen: normal bowel sounds, non tender, soft Extremities: normal inspection Edema: no edema noted Arm (L), no edema noted Arm (R), no edema noted Leg (L), no edema noted Leg (R), no edema noted Pedal (L), no edema noted Pedal (R), no edema noted Generalized Neurologic: motor weakness Skin: normal pigmentation, warm/dry Rl Wihte DO Dec 24, 2018 09:31
--- NOTE | 2018-12-24 09:32 | NUR ---
RADIOLOGY DEPT., CHEST AND ABDOMEN X-RAYS COMPLETED.
--- NOTE | 2018-12-24 09:46 | Pulmonolgy Critical Care Note ---
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, 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, consultants, 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 - Objective Last 24 Hour Vital Signs Date Time Temp Pulse Resp B/P (MAP) Pulse Ox O2 Delivery O2 Flow Rate FiO2 12/24/18 09:14 72 27 40 12/24/18 09:13 100 12/24/18 07:28 51 16 40 12/24/18 06:00 48 16 99/83 (88) 100 12/24/18 05:10 70 20 40 12/24/18 05:00 99.8 72 20 117/77 (90) 85 12/24/18 04:30 74 23 126/58 (80) 94 12/24/18 04:00 40 12/24/18 04:00 69 19 121/85 (97) 100 12/24/18 04:00 75 12/24/18 04:00 Mechanical Ventilator 12/24/18 03:30 71 21 104/75 (85) 95 12/24/18 03:16 69 19 40 12/24/18 03:00 70 20 149/56 (87) 94 12/24/18 02:00 72 22 137/65 (89) 100 12/24/18 01:00 75 22 133/102 (112) 99 12/24/18 00:50 73 19 40 12/24/18 00:00 Mechanical Ventilator 12/24/18 00:00 40 12/24/18 00:00 99.3 74 19 149/62 (91) 100 12/24/18 00:00 70 12/23/18 23:30 78 25 137/74 (95) 100 12/23/18 23:10 74 20 40 12/23/18 23:00 68 20 115/48 (70) 100 12/23/18 22:00 67 21 122/101 (108) 97 12/23/18 21:05 68 20 40 12/23/18 21:00 70 23 133/80 (97) 100 12/23/18 20:00 Mechanical Ventilator 12/23/18 20:00 68 12/23/18 20:00 40 12/23/18 20:00 99.5 66 19 107/63 (78) 12/23/18 19:15 63 21 40 12/23/18 19:00 65 19 126/83 (97) 96 12/23/18 18:00 67 20 139/74 (95) 100 12/23/18 17:27 70 20 40 12/23/18 17:00 67 20 139/74 (95) 100 12/23/18 16:00 98.1 62 16 139/51 (80) 100 12/23/18 16:00 61 12/23/18 16:00 Mechanical Ventilator 12/23/18 16:00 40 12/23/18 15:09 70 20 40 12/23/18 15:00 60 16 132/83 (99) 100 12/23/18 14:05 99.8 12/23/18 14:00 65 16 130/75 (93) 100 12/23/18 13:14 80 27 40 12/23/18 13:00 61 16 111/44 (66) 100 12/23/18 12:00 70 12/23/18 12:00 99.3 71 17 134/67 (89) 100 12/23/18 12:00 Mechanical Ventilator 12/23/18 12:00 40 12/23/18 11:16 72 19 40 12/23/18 11:00 68 16 131/65 (87) 100 12/23/18 10:00 71 17 124/105 (111) 100 Status: awake Condition: critical Lungs: chest wall tender Heart: HR/BP stable Abdomen: soft, non-tender Extremities: no C/C/E, edema Decubiti: stage Micro: Microbiology Date/Time Source Procedure Growth Status 12/21/18 18:35 Blood Blood Culture - Preliminary Staphylococcus Species Resulted 12/21/18 18:20 Blood Blood Culture - Preliminary Gram Positive Cocci Resulted 12/22/18 02:30 Sputum Induced Gram Stain - Final Resulted 12/22/18 02:30 Sputum Culture - Preliminary Haemophilus Influenzae Gram Negative Bacillus 1 Resulted 12/21/18 23:00 Nasal Nares MRSA Culture - Final Staphylococcus Aureus - Mrsa Complete 12/22/18 10:55 Urine,Clean Catch Urine Culture - Preliminary NO GROWTH Resulted 12/21/18 23:00 Rectum VRE Culture - Final Enterococcus Faecalis - Vre Complete Critical Care - Subjective ROS Limited/Unobtainable: No Condition: critical EKG Rhythm: Sinus Rhythm FI02: 40 Vent Support Breath Rate: 16 Vent Support Mode: CPAP Vent Tidal Volume: 500 Sputum Amount: Moderate PEEP: 5.0 PIP: 13 Tube Feeding Amount: 60 I&O: Intake and Output 12/23/18 12/24/18 18:59 06:59 Intake Total 2254.916 ml 1752.5 ml Output Total 938 ml 1190 ml Balance 1316.916 ml 562.5 ml Free Water 0 ml IV Total 1524.916 ml 1002.5 ml Tube Feeding 610 ml 720 ml Blood Product 60 ml 30 ml Other 60 ml Output Urine Total 930 ml 1190 ml Chest Tube Drainage Total 8 ml # Bowel Movements 1 CXR: bilateral chest tube ET-Tube: 7.0 ET Position: 24 Labs: Laboratory Tests Test 12/24/18 00:30 12/24/18 04:00 12/24/18 08:47 Stool Occult Blood Pending White Blood Count 16.4 K/UL (4.8-10.8) H Red Blood Count 3.25 M/UL (4.20-5.40) L Hemoglobin 9.7 G/DL (12.0-16.0) L Hematocrit 29.4 % (37.0-47.0) L Mean Corpuscular Volume 90 FL (80-99) Mean Corpuscular Hemoglobin 29.9 PG (27.0-31.0) Mean Corpuscular Hemoglobin Concent 33.1 G/DL (32.0-36.0) Red Cell Distribution Width 13.4 % (11.6-14.8) Platelet Count 292 K/UL (150-450) Mean Platelet Volume 6.0 FL (6.5-10.1) L Neutrophils (%) (Auto) 76.0 % (45.0-75.0) H Lymphocytes (%) (Auto) 13.2 % (20.0-45.0) L Monocytes (%) (Auto) 6.4 % (1.0-10.0) Eosinophils (%) (Auto) 3.8 % (0.0-3.0) H Basophils (%) (Auto) 0.7 % (0.0-2.0) Sodium Level 147 MMOL/L (136-145) H Potassium Level 4.1 MMOL/L (3.5-5.1) Chloride Level 111 MMOL/L (98-107) H Carbon Dioxide Level 28 MMOL/L (21-32) Anion Gap 8 mmol/L (5-15) Blood Urea Nitrogen 29 mg/dL (7-18) H Creatinine 1.0 MG/DL (0.55-1.30) Estimat Glomerular Filtration Rate mL/min (>60) Glucose Level 101 MG/DL (74-106) Uric Acid 2.4 MG/DL (2.6-7.2) L Calcium Level 9.1 MG/DL (8.5-10.1) Phosphorus Level 2.1 MG/DL (2.5-4.9) L Magnesium Level 1.9 MG/DL (1.8-2.4) Total Bilirubin 0.2 MG/DL (0.2-1.0) Direct Bilirubin < 0.1 MG/DL (0.0-0.3) Aspartate Amino Transf (AST/SGOT) 21 U/L (15-37) Alanine Aminotransferase (ALT/SGPT) 28 U/L (12-78) Alkaline Phosphatase 78 U/L (46-116) C-Reactive Protein, Quantitative 18.4 mg/dL (0.00-0.90) H Pro-B-Type Natriuretic Peptide 2481 pg/mL (0-125) H Total Protein 8.0 G/DL (6.4-8.2) Albumin 2.3 G/DL (3.4-5.0) L Globulin 5.7 g/dL Albumin/Globulin Ratio 0.4 (1.0-2.7) L Arterial Blood pH 7.412 (7.350-7.450) Arterial Blood Partial Pressure CO2 42.0 mmHg (35.0-45.0) Arterial Blood Partial Pressure O2 137.2 mmHg (75.0-100.0) H Arterial Blood HCO3 26.1 mmol/L (22.0-26.0) H Arterial Blood Oxygen Saturation 98.2 % (95-100) Arterial Blood Base Excess 1.4 (-2-2) Luís Test Positive Sue Yu MD Dec 24, 2018 09:46
--- NOTE | 2018-12-24 10:10 | General Progress Note ---
Progress Note Progress Note pt doesn't have any family member to sign his consents. He is not capable of signing himself. Pt needs transfusion urgently. Sue Yu MD Dec 24, 2018 10:10
--- NOTE | 2018-12-24 10:16 | Nephrology Progress Note ---
Assessment/Plan Problem List: (1) Acute on chronic renal failure (2) Acute and chronic respiratory failure (3) Pneumothorax (4) Cardiomyopathy Assessment acute on chronic Renal failure Acute on chronic respiratory failure Pneumothorax Anemia UTI HypoAlbuminemia HTN PEG Sz Disorder Cardiomyopathy Full code status ! . Plan lower amiodarone dose stop Hydrate- stop synthroid- very low TSH Monitor renal parameters Anemia bryant antibiotics avoid nephrotoxics optimize cardiac and pulm status per orders Subjective ROS Limited/Unobtainable: Yes Objective Objective Last 24 Hour Vital Signs Date Time Temp Pulse Resp B/P (MAP) Pulse Ox O2 Delivery O2 Flow Rate FiO2 12/24/18 09:14 72 27 40 12/24/18 09:13 100 12/24/18 07:28 51 16 40 12/24/18 06:00 48 16 99/83 (88) 100 12/24/18 05:10 70 20 40 12/24/18 05:00 99.8 72 20 117/77 (90) 85 12/24/18 04:30 74 23 126/58 (80) 94 12/24/18 04:00 40 12/24/18 04:00 69 19 121/85 (97) 100 12/24/18 04:00 75 12/24/18 04:00 Mechanical Ventilator 12/24/18 03:30 71 21 104/75 (85) 95 12/24/18 03:16 69 19 40 12/24/18 03:00 70 20 149/56 (87) 94 12/24/18 02:00 72 22 137/65 (89) 100 12/24/18 01:00 75 22 133/102 (112) 99 12/24/18 00:50 73 19 40 12/24/18 00:00 Mechanical Ventilator 12/24/18 00:00 40 12/24/18 00:00 99.3 74 19 149/62 (91) 100 12/24/18 00:00 70 12/23/18 23:30 78 25 137/74 (95) 100 12/23/18 23:10 74 20 40 12/23/18 23:00 68 20 115/48 (70) 100 12/23/18 22:00 67 21 122/101 (108) 97 12/23/18 21:05 68 20 40 12/23/18 21:00 70 23 133/80 (97) 100 12/23/18 20:00 Mechanical Ventilator 12/23/18 20:00 68 12/23/18 20:00 40 12/23/18 20:00 99.5 66 19 107/63 (78) 12/23/18 19:15 63 21 40 12/23/18 19:00 65 19 126/83 (97) 96 12/23/18 18:00 67 20 139/74 (95) 100 12/23/18 17:27 70 20 40 12/23/18 17:00 67 20 139/74 (95) 100 12/23/18 16:00 98.1 62 16 139/51 (80) 100 12/23/18 16:00 61 12/23/18 16:00 Mechanical Ventilator 12/23/18 16:00 40 12/23/18 15:09 70 20 40 12/23/18 15:00 60 16 132/83 (99) 100 12/23/18 14:05 99.8 12/23/18 14:00 65 16 130/75 (93) 100 12/23/18 13:14 80 27 40 12/23/18 13:00 61 16 111/44 (66) 100 12/23/18 12:00 70 12/23/18 12:00 99.3 71 17 134/67 (89) 100 12/23/18 12:00 Mechanical Ventilator 12/23/18 12:00 40 12/23/18 11:16 72 19 40 12/23/18 11:00 68 16 131/65 (87) 100 Intake and Output 12/23/18 12/24/18 18:59 06:59 Intake Total 2254.916 ml 1752.5 ml Output Total 938 ml 1190 ml Balance 1316.916 ml 562.5 ml Free Water 0 ml IV Total 1524.916 ml 1002.5 ml Tube Feeding 610 ml 720 ml Blood Product 60 ml 30 ml Other 60 ml Output Urine Total 930 ml 1190 ml Chest Tube Drainage Total 8 ml # Bowel Movements 1 Laboratory Tests 12/24/18 00:30: Stool Occult Blood [Pending] 12/24/18 04:00: White Blood Count 16.4H, Red Blood Count 3.25L, Hemoglobin 9.7L, Hematocrit 29.4L, Mean Corpuscular Volume 90, Mean Corpuscular Hemoglobin 29.9, Mean Corpuscular Hemoglobin Concent 33.1, Red Cell Distribution Width 13.4, Platelet Count 292, Mean Platelet Volume 6.0L, Neutrophils (%) (Auto) 76.0H, Lymphocytes (%) (Auto) 13.2L, Monocytes (%) (Auto) 6.4, Eosinophils (%) (Auto) 3.8H, Basophils (%) (Auto) 0.7, Sodium Level 147H, Potassium Level 4.1, Chloride Level 111H, Carbon Dioxide Level 28, Anion Gap 8, Blood Urea Nitrogen 29H, Creatinine 1.0, Estimat Glomerular Filtration Rate , Glucose Level 101, Uric Acid 2.4L, Calcium Level 9.1, Phosphorus Level 2.1L, Magnesium Level 1.9, Total Bilirubin 0.2, Direct Bilirubin < 0.1, Aspartate Amino Transf (AST/SGOT) 21, Alanine Aminotransferase (ALT/SGPT) 28, Alkaline Phosphatase 78, C-Reactive Protein, Quantitative 18.4H, Pro-B-Type Natriuretic Peptide 2481H, Total Protein 8.0, Albumin 2.3L, Globulin 5.7, Albumin/Globulin Ratio 0.4L 12/24/18 08:47: Arterial Blood pH 7.412, Arterial Blood Partial Pressure CO2 42.0, Arterial Blood Partial Pressure O2 137.2H, Arterial Blood HCO3 26.1H, Arterial Blood Oxygen Saturation 98.2, Arterial Blood Base Excess 1.4, Luís Test Positive Height (Feet): 5 Height (Inches): 6.00 Weight (Pounds): 130 EENT: other - vented Cardiovascular: bradycardia Respiratory/Chest: decreased breath sounds, other - chest tubes Abdomen: distended Tono Case MD Dec 24, 2018 10:16
[2018-12-24] MEDS ORDERED: Tubing Blood Filter IV ONE (10:41)
[2018-12-24] MEDS ORDERED: Tubing IV Secondary IV ONE (10:41)
[2018-12-24] MEDS ORDERED: 1/2 NS 1000ml IV ONE (10:41)
[2018-12-24] MEDS ORDERED: NS 275ml ONE (10:41)
[2018-12-24] MEDS ORDERED: Sodium Phosphate 30 MM in NS 275 ML IV SCH (11:00)
[2018-12-24] MEDS: Vancomycin 750mg/NS 275ml IVPB SCH ×2 (11:05)
--- NOTE | 2018-12-24 11:05 | NUR ---
NURSE NOTES: pt repositioned. no bm at this time. heels elevated on pillows. hob>30. side rails padded. no in no acute distress at this time.
--- NOTE | 2018-12-24 11:15 | Diagnostic Imaging Report ---
Indication: Dyspnea Technique: One view of the chest Comparison: 12/23/2018 Findings: Stable satisfactory position of endotracheal tube. Bilateral chest tubes remain in place. No pneumothorax demonstrated. Subcutaneous emphysema is seen in the bilateral supraclavicular regions and to a slight extent the bilateral chest prince. Bilateral interstitial disease appears unchanged. Impression: Unchanged, over one day, findings as above.
--- NOTE | 2018-12-24 11:54 | GI Progress Note ---
Assessment/Plan Problems: (1) Ileus ICD Codes: K56.7 - Ileus, unspecified SNOMED: 319266140 (2) Fecal impaction ICD Codes: K56.41 - Fecal impaction SNOMED: 78422918 (3) Malfunction of gastrostomy tube ICD Codes: K94.23 - Gastrostomy malfunction SNOMED: 137531928 (4) Feeding by G-tube ICD Codes: Z93.1 - Gastrostomy status SNOMED: 979341703, 085124212 (5) Anemia ICD Codes: D64.9 - Anemia, unspecified SNOMED: 809101261 Status: unchanged Status Narrative Discussed with Dr. Skinner. Assessment/Plan OB stool negative GI procedures if emergent GTFs per ppi bowel regime, colace + miralax + lactulose prn transfusions no venofer given elevated ferritin levels follow labs The patient was seen and examined at bedside and all new and available data was reviewed in the patients chart. I agree with the above findings, impression and plan. (Patient seen earlier today. Signature stamp does not reflect patient encounter time.). - Jad Skinner MD Subjective Subjective limited Objective Last 24 Hour Vital Signs Date Time Temp Pulse Resp B/P (MAP) Pulse Ox O2 Delivery O2 Flow Rate FiO2 12/24/18 11:00 69 27 109/67 (81) 100 12/24/18 10:44 58 26 40 12/24/18 10:00 53 20 118/39 (65) 100 12/24/18 09:14 72 27 40 12/24/18 09:13 100 12/24/18 09:00 51 16 119/54 (75) 100 12/24/18 08:00 40 12/24/18 08:00 65 18 128/56 (80) 100 12/24/18 08:00 Mechanical Ventilator 12/24/18 07:28 51 16 40 12/24/18 07:00 98.9 65 18 117/78 (91) 99 12/24/18 06:00 48 16 99/83 (88) 100 12/24/18 05:10 70 20 40 12/24/18 05:00 99.8 72 20 117/77 (90) 85 12/24/18 04:30 74 23 126/58 (80) 94 12/24/18 04:00 40 12/24/18 04:00 69 19 121/85 (97) 100 12/24/18 04:00 75 12/24/18 04:00 Mechanical Ventilator 12/24/18 03:30 71 21 104/75 (85) 95 12/24/18 03:16 69 19 40 12/24/18 03:00 70 20 149/56 (87) 94 12/24/18 02:00 72 22 137/65 (89) 100 12/24/18 01:00 75 22 133/102 (112) 99 12/24/18 00:50 73 19 40 12/24/18 00:00 Mechanical Ventilator 12/24/18 00:00 40 12/24/18 00:00 99.3 74 19 149/62 (91) 100 12/24/18 00:00 70 12/23/18 23:30 78 25 137/74 (95) 100 12/23/18 23:10 74 20 40 12/23/18 23:00 68 20 115/48 (70) 100 12/23/18 22:00 67 21 122/101 (108) 97 12/23/18 21:05 68 20 40 12/23/18 21:00 70 23 133/80 (97) 100 12/23/18 20:00 Mechanical Ventilator 12/23/18 20:00 68 12/23/18 20:00 40 12/23/18 20:00 99.5 66 19 107/63 (78) 12/23/18 19:15 63 21 40 12/23/18 19:00 65 19 126/83 (97) 96 12/23/18 18:00 67 20 139/74 (95) 100 12/23/18 17:27 70 20 40 12/23/18 17:00 67 20 139/74 (95) 100 12/23/18 16:00 98.1 62 16 139/51 (80) 100 12/23/18 16:00 61 12/23/18 16:00 Mechanical Ventilator 12/23/18 16:00 40 12/23/18 15:09 70 20 40 12/23/18 15:00 60 16 132/83 (99) 100 12/23/18 14:05 99.8 12/23/18 14:00 65 16 130/75 (93) 100 12/23/18 13:14 80 27 40 12/23/18 13:00 61 16 111/44 (66) 100 12/23/18 12:00 70 12/23/18 12:00 99.3 71 17 134/67 (89) 100 12/23/18 12:00 Mechanical Ventilator 12/23/18 12:00 40 Intake and Output 12/23/18 12/24/18 19:00 07:00 Intake Total 2640.416 ml 1277.0 ml Output Total 1008 ml 1190 ml Balance 1632.416 ml 87.0 ml Free Water 0 ml IV Total 1850.416 ml 527.0 ml Tube Feeding 670 ml 720 ml Blood Product 60 ml 30 ml Other 60 ml Output Urine Total 1000 ml 1190 ml Chest Tube Drainage Total 8 ml # Bowel Movements 2 Laboratory Tests Test 12/24/18 00:30 12/24/18 04:00 12/24/18 08:47 Stool Occult Blood Negative (NEGATIVE) White Blood Count 16.4 K/UL (4.8-10.8) H Red Blood Count 3.25 M/UL (4.20-5.40) L Hemoglobin 9.7 G/DL (12.0-16.0) L Hematocrit 29.4 % (37.0-47.0) L Mean Corpuscular Volume 90 FL (80-99) Mean Corpuscular Hemoglobin 29.9 PG (27.0-31.0) Mean Corpuscular Hemoglobin Concent 33.1 G/DL (32.0-36.0) Red Cell Distribution Width 13.4 % (11.6-14.8) Platelet Count 292 K/UL (150-450) Mean Platelet Volume 6.0 FL (6.5-10.1) L Neutrophils (%) (Auto) 76.0 % (45.0-75.0) H Lymphocytes (%) (Auto) 13.2 % (20.0-45.0) L Monocytes (%) (Auto) 6.4 % (1.0-10.0) Eosinophils (%) (Auto) 3.8 % (0.0-3.0) H Basophils (%) (Auto) 0.7 % (0.0-2.0) Sodium Level 147 MMOL/L (136-145) H Potassium Level 4.1 MMOL/L (3.5-5.1) Chloride Level 111 MMOL/L (98-107) H Carbon Dioxide Level 28 MMOL/L (21-32) Anion Gap 8 mmol/L (5-15) Blood Urea Nitrogen 29 mg/dL (7-18) H Creatinine 1.0 MG/DL (0.55-1.30) Estimat Glomerular Filtration Rate mL/min (>60) Glucose Level 101 MG/DL (74-106) Uric Acid 2.4 MG/DL (2.6-7.2) L Calcium Level 9.1 MG/DL (8.5-10.1) Phosphorus Level 2.1 MG/DL (2.5-4.9) L Magnesium Level 1.9 MG/DL (1.8-2.4) Total Bilirubin 0.2 MG/DL (0.2-1.0) Direct Bilirubin < 0.1 MG/DL (0.0-0.3) Aspartate Amino Transf (AST/SGOT) 21 U/L (15-37) Alanine Aminotransferase (ALT/SGPT) 28 U/L (12-78) Alkaline Phosphatase 78 U/L (46-116) C-Reactive Protein, Quantitative 18.4 mg/dL (0.00-0.90) H Pro-B-Type Natriuretic Peptide 2481 pg/mL (0-125) H Total Protein 8.0 G/DL (6.4-8.2) Albumin 2.3 G/DL (3.4-5.0) L Globulin 5.7 g/dL Albumin/Globulin Ratio 0.4 (1.0-2.7) L Arterial Blood pH 7.412 (7.350-7.450) Arterial Blood Partial Pressure CO2 42.0 mmHg (35.0-45.0) Arterial Blood Partial Pressure O2 137.2 mmHg (75.0-100.0) H Arterial Blood HCO3 26.1 mmol/L (22.0-26.0) H Arterial Blood Oxygen Saturation 98.2 % (95-100) Arterial Blood Base Excess 1.4 (-2-2) Luís Test Positive Height (Feet): 5 Height (Inches): 6.00 Weight (Pounds): 130 General Appearance: no apparent distress, thin Cardiovascular: normal rate Respiratory/Chest: normal breath sounds, no respiratory distress Abdominal Exam: normal bowel sounds, non tender, soft, GT site - c/d/i Extremities: non-tender 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
--- NOTE | 2018-12-24 12:37 | Diagnostic Imaging Report ---
Indication: Abdominal pain Technique: Supine view of the abdomen Comparison: 09/12/2018 Findings: There is a left groin vascular catheter in place. No masses or unusual calcifications. Previously demonstrated colonic contrast has cleared. There is feces distending the rectum, also demonstrated previously. The colon is upper limits normal caliber, gas-filled. Surgical clips are seen in the pelvis. Impression: Possible rectal fecal impaction, also previously demonstrated. Prominent but nondistended gas-filled colon. Left groin vascular catheter
--- NOTE | 2018-12-24 13:07 | NUR ---
NURSE NOTES: spoke with md ni does not want the pt weaned, d/t chronic trach and bilateral chest tubes.
--- NOTE | 2018-12-24 13:12 | NUR ---
RESPIRATORY NOTE: placed pt back on AC mode at 1311. per MD, does not want to wean pt at this time.
--- NOTE | 2018-12-24 14:42 | Infectious Diseases Prog Note ---
Assessment/Plan Assessment/Plan Assessment: Sepsis- Probable PNA 12/24 CXR Stable satisfactory position of endotracheal tube. Bilateral chest tubes remain in place R/o probable UTI Bacteremia : GPC Afebrile Leukocytosis, overall improving Hx of recurrent PNA (VAP/HAP) -10/2017 MDR PSA, H. flu -sp cx MDR ACB 07/2017, s/p Rx JAMES, improving Acute respiratory failure, failed trach and now intubated 12/21/18 Hypertension. History of seizure disorder Ventilator-dependent respiratory failure History of lower extremity DVT History of PEG and trach placement dementia quadriplegic COPD residential resident Plan: -Continue empiric IV Vancomycin # 4, AMikacin # 3 and Zosyn # 4 pending sputum cx -f/u cx -Monitor CBC/CMP, temperatures -ETT care -aspiration precautions -Influenza sc - 2d ECHO Subjective Allergies: Coded Allergies: ASPIRIN (Verified Allergy, Unknown, 07/07/17) Subjective on vent Objective Vital Signs Last 24 Hour Vital Signs Date Time Temp Pulse Resp B/P (MAP) Pulse Ox O2 Delivery O2 Flow Rate FiO2 12/24/18 14:33 60 21 40 12/24/18 14:00 54 19 131/61 (84) 100 12/24/18 13:00 57 23 130/28 (62) 100 12/24/18 12:47 50 19 40 12/24/18 12:00 Mechanical Ventilator 12/24/18 12:00 99.8 60 24 129/53 (78) 100 12/24/18 12:00 57 12/24/18 11:00 69 27 109/67 (81) 100 12/24/18 10:44 58 26 40 12/24/18 10:00 53 20 118/39 (65) 100 12/24/18 09:14 72 27 40 12/24/18 09:13 100 12/24/18 09:00 51 16 119/54 (75) 100 12/24/18 08:00 40 12/24/18 08:00 65 18 128/56 (80) 100 12/24/18 08:00 63 12/24/18 08:00 Mechanical Ventilator 12/24/18 07:28 51 16 40 12/24/18 07:00 98.9 65 18 117/78 (91) 99 12/24/18 06:00 48 16 99/83 (88) 100 12/24/18 05:10 70 20 40 12/24/18 05:00 99.8 72 20 117/77 (90) 85 12/24/18 04:30 74 23 126/58 (80) 94 12/24/18 04:00 40 12/24/18 04:00 69 19 121/85 (97) 100 12/24/18 04:00 75 12/24/18 04:00 Mechanical Ventilator 12/24/18 03:30 71 21 104/75 (85) 95 12/24/18 03:16 69 19 40 12/24/18 03:00 70 20 149/56 (87) 94 12/24/18 02:00 72 22 137/65 (89) 100 12/24/18 01:00 75 22 133/102 (112) 99 12/24/18 00:50 73 19 40 12/24/18 00:00 Mechanical Ventilator 12/24/18 00:00 40 12/24/18 00:00 99.3 74 19 149/62 (91) 100 12/24/18 00:00 70 12/23/18 23:30 78 25 137/74 (95) 100 12/23/18 23:10 74 20 40 12/23/18 23:00 68 20 115/48 (70) 100 12/23/18 22:00 67 21 122/101 (108) 97 12/23/18 21:05 68 20 40 12/23/18 21:00 70 23 133/80 (97) 100 12/23/18 20:00 Mechanical Ventilator 12/23/18 20:00 68 12/23/18 20:00 40 12/23/18 20:00 99.5 66 19 107/63 (78) 12/23/18 19:15 63 21 40 12/23/18 19:00 65 19 126/83 (97) 96 12/23/18 18:00 67 20 139/74 (95) 100 12/23/18 17:27 70 20 40 12/23/18 17:00 67 20 139/74 (95) 100 12/23/18 16:00 98.1 62 16 139/51 (80) 100 12/23/18 16:00 61 12/23/18 16:00 Mechanical Ventilator 12/23/18 16:00 40 12/23/18 15:09 70 20 40 12/23/18 15:00 60 16 132/83 (99) 100 Height (Feet): 5 Height (Inches): 6.00 Weight (Pounds): 130 HEENT: anicteric Respiratory/Chest: other - coarse BrS Cardiovascular: regular rhythm Abdomen: soft, non tender Microbiology Date/Time Source Procedure Growth Status 12/21/18 18:35 Blood Blood Culture - Preliminary Staphylococcus Species Resulted 12/21/18 18:20 Blood Blood Culture - Preliminary Gram Positive Cocci Resulted 12/22/18 02:30 Sputum Induced Gram Stain - Final Resulted 12/22/18 02:30 Sputum Culture - Preliminary Haemophilus Influenzae Gram Negative Bacillus 1 Resulted 12/21/18 23:00 Nasal Nares MRSA Culture - Final Staphylococcus Aureus - Mrsa Complete 12/22/18 10:55 Urine,Clean Catch Urine Culture - Preliminary NO GROWTH Resulted 12/21/18 23:00 Rectum VRE Culture - Final Enterococcus Faecalis - Vre Complete Laboratory Tests Test 12/24/18 00:30 12/24/18 04:00 12/24/18 08:47 Stool Occult Blood Negative (NEGATIVE) White Blood Count 16.4 K/UL (4.8-10.8) H Red Blood Count 3.25 M/UL (4.20-5.40) L Hemoglobin 9.7 G/DL (12.0-16.0) L Hematocrit 29.4 % (37.0-47.0) L Mean Corpuscular Volume 90 FL (80-99) Mean Corpuscular Hemoglobin 29.9 PG (27.0-31.0) Mean Corpuscular Hemoglobin Concent 33.1 G/DL (32.0-36.0) Red Cell Distribution Width 13.4 % (11.6-14.8) Platelet Count 292 K/UL (150-450) Mean Platelet Volume 6.0 FL (6.5-10.1) L Neutrophils (%) (Auto) 76.0 % (45.0-75.0) H Lymphocytes (%) (Auto) 13.2 % (20.0-45.0) L Monocytes (%) (Auto) 6.4 % (1.0-10.0) Eosinophils (%) (Auto) 3.8 % (0.0-3.0) H Basophils (%) (Auto) 0.7 % (0.0-2.0) Sodium Level 147 MMOL/L (136-145) H Potassium Level 4.1 MMOL/L (3.5-5.1) Chloride Level 111 MMOL/L (98-107) H Carbon Dioxide Level 28 MMOL/L (21-32) Anion Gap 8 mmol/L (5-15) Blood Urea Nitrogen 29 mg/dL (7-18) H Creatinine 1.0 MG/DL (0.55-1.30) Estimat Glomerular Filtration Rate mL/min (>60) Glucose Level 101 MG/DL (74-106) Uric Acid 2.4 MG/DL (2.6-7.2) L Calcium Level 9.1 MG/DL (8.5-10.1) Phosphorus Level 2.1 MG/DL (2.5-4.9) L Magnesium Level 1.9 MG/DL (1.8-2.4) Total Bilirubin 0.2 MG/DL (0.2-1.0) Direct Bilirubin < 0.1 MG/DL (0.0-0.3) Aspartate Amino Transf (AST/SGOT) 21 U/L (15-37) Alanine Aminotransferase (ALT/SGPT) 28 U/L (12-78) Alkaline Phosphatase 78 U/L (46-116) C-Reactive Protein, Quantitative 18.4 mg/dL (0.00-0.90) H Pro-B-Type Natriuretic Peptide 2481 pg/mL (0-125) H Total Protein 8.0 G/DL (6.4-8.2) Albumin 2.3 G/DL (3.4-5.0) L Globulin 5.7 g/dL Albumin/Globulin Ratio 0.4 (1.0-2.7) L Arterial Blood pH 7.412 (7.350-7.450) Arterial Blood Partial Pressure CO2 42.0 mmHg (35.0-45.0) Arterial Blood Partial Pressure O2 137.2 mmHg (75.0-100.0) H Arterial Blood HCO3 26.1 mmol/L (22.0-26.0) H Arterial Blood Oxygen Saturation 98.2 % (95-100) Arterial Blood Base Excess 1.4 (-2-2) Luís Test Positive Current Medications Medications (Trade) Dose Ordered Sig/Torsten Route PRN Reason Start Time Stop Time Status Last Admin Dose Admin Acetaminophen (Tylenol) 650 mg Q4H PRN GT Mild Pain/Temp > 100.5 12/23/18 13:15 01/22/19 13:14 12/24/18 13:24 Albuterol/ Ipratropium (Albuterol/ Ipratropium) 3 ml Q4H PRN HHN Shortness of Breath 12/21/18 20:45 12/26/18 20:44 Amikacin Protocol (Amikacin pharmacy to dose) 1 ea DAILY PRN MISC PER RX 12/21/18 21:15 01/20/19 21:14 Amikacin Sulfate 800 mg/Sodium Chloride 113.2 ml @ 113.2 mls/ hr Q48H IV 12/24/18 23:00 12/31/18 22:59 Amiodarone HCl (Cordarone) 100 mg DAILY GT 12/25/18 09:00 01/21/19 08:59 Ascorbic Acid (Vitamin C) 250 mg DAILY GT 12/24/18 09:00 01/22/19 08:59 12/24/18 08:36 Chlorhexidine Gluconate (Mariah-Hex 2%) 1 applic DAILY@2000 TOPIC 12/22/18 20:00 01/21/19 19:59 12/23/18 20:47 Docusate Sodium (Colace) 100 mg TWICE A DAY ORAL 12/24/18 09:00 01/23/19 08:59 12/24/18 08:36 Heparin Sodium (Porcine) (Heparin 5000 units/ml) 5,000 units EVERY 12 HOURS SUBQ 12/21/18 21:00 01/20/19 20:59 12/24/18 08:44 Lactulose (Cephulac) 20 gm THREE TIMES A DAY ORAL 12/24/18 09:00 01/23/19 08:59 12/24/18 13:23 Lorazepam (Ativan 2mg/ml 1ml) 2 mg Q2H PRN IV For Anxiety 12/21/18 20:45 12/28/18 20:44 Morphine Sulfate (Morphine Sulfate) 4 mg Q4H PRN IVP Severe Pain (Pain Scale 7-10) 12/21/18 20:45 12/28/18 20:44 12/23/18 20:48 Norepinephrine Bitartrate 4 mg/ Dextrose 254 ml @ 0 mls/hr Q24H IV 12/21/18 22:00 01/20/19 21:59 Ondansetron HCl (Zofran) 4 mg Q6H PRN IVP Nausea & Vomiting 12/21/18 20:45 01/20/19 20:44 Pantoprazole (Protonix) 40 mg Q12HR IV 12/23/18 21:00 01/21/19 08:59 12/24/18 08:36 Piperacillin Sod/ Tazobactam Sod 3.375 gm/Sodium Chloride 110 ml @ 27.5 mls/hr Q8H IVPB 12/22/18 12:00 12/29/18 11:59 12/24/18 11:04 Polyethylene Glycol (Miralax) 17 gm DAILYPRN PRN GT Constipation 12/23/18 13:30 01/20/19 20:44 Sodium Phosphate 30 mm/Sodium Chloride 285 ml @ 47.5 mls/hr ONCE IV 12/24/18 11:00 12/24/18 17:00 12/24/18 11:04 Vancomycin HCl (Vanco rx to dose) 1 ea DAILY PRN MISC PER RX 12/21/18 21:00 01/20/19 20:59 Vancomycin HCl 750 mg/Sodium Chloride 275 ml @ 183.333 mls/hr Q24H IVPB 12/23/18 11:00 12/28/18 10:59 12/24/18 11:05 Ricky Slater MD Dec 24, 2018 14:42
--- NOTE | 2018-12-24 16:40 | NUR ---
NURSE NOTES: PT RESTING IN BED. NO RESIDUAL. T/F GLUCERNA RUNNING AT 60ML/HR. PT HAD 1 LARGE BM, LOOSE BROWN. PT CLEANED, ORAL CARE AND SUCTION. CONTACT AND SZ PRECAUTIONS IN PLACE.
--- NOTE | 2018-12-24 18:47 | NUR ---
CASE MANAGEMENT: REVIEW SI: RESP FAILURE . PNEUMOTHORAX . PNA BILATERAL CHEST TUBES 12/21 T 99.2 HR 48 RR 23 BP 99/83 SAT 85% MECH VENT FIO2 40 WBC 16.4 H/H 9.7/29.4 IS: AMIODARONE GT QD AMIKACIN IV Q48HR LACTULOSE PO TID ZOSYN IV Q8HR LEVOPHED GTT ICU STATUS DCP: PATIENT IS FROM [facility]
--- NOTE | 2018-12-24 19:23 | NUR ---
HAND-OFF: Report given to albert BOND. pt in no acute distress.
--- NOTE | 2018-12-24 19:45 | NUR ---
RESPIRATORY NOTE: Received pt. on 840 vent. Vent settings are: A/C rate of 16, Vt 500, FI02 40%, PEEP +5. No respiratory distress noted, pt. sP02 @ 100%. Ambu bag @ BS. Vent plugged on red outlet. Will continue to monitor pt.
--- NOTE | 2018-12-24 20:00 | NUR ---
NURSE NOTES: Report received from RONDA Mar. Pt in bed. opens eyes to tactile stimuli and respond to pain. Eyes are puffy and closed greater on right eye. Crepitus noted on face and upper chest. Both side chest tube, connected to suction. minimal drainage of bloody secretions. No air leaks noted. Sinus Fracisco on monitoring specialist. ETT 7.5/24cm, AC 16, TV 500, FiO2 40%, P 5. O2 sat 100%. G-tube in place, running Glucerna 1.2 at 60cc hr: goal 60cc/hr. Smith in place draining pale urine to gravity. placed securement devise on left thigh. Left femoral TLC patent and asymptomatic. NS is running at 50cc/hr. Right and left malleolus dressing dry and intact. Bed in lowest position. Side rails up x3. Call light within reach. Will continue to implement plan of care.
[2018-12-24] MEDS: Dyna-Hex 2% Top Sol 2oz TOPIC SCH (20:11)
--- NOTE | 2018-12-24 20:42 | Surgery Progress Note ---
Surgery Progress Note Subjective Additional Comments slowly improving. eyes open today. making movements. labs noted. cxr stable. chest tubes without leak Objective Last 24 Hour Vital Signs Date Time Temp Pulse Resp B/P (MAP) Pulse Ox O2 Delivery O2 Flow Rate FiO2 12/24/18 20:13 123/57 12/24/18 19:44 65 21 40 12/24/18 18:00 65 19 123/57 (79) 100 12/24/18 17:00 48 16 111/42 (65) 100 12/24/18 16:33 62 23 40 12/24/18 16:00 99.2 63 17 131/52 (78) 100 12/24/18 16:00 Mechanical Ventilator 12/24/18 16:00 62 12/24/18 16:00 40 12/24/18 15:00 51 17 122/41 (68) 100 12/24/18 14:33 60 21 40 12/24/18 14:00 54 19 131/61 (84) 100 12/24/18 13:00 57 23 130/28 (62) 100 12/24/18 12:47 50 19 40 12/24/18 12:00 Mechanical Ventilator 12/24/18 12:00 99.8 60 24 129/53 (78) 100 12/24/18 12:00 57 12/24/18 11:00 69 27 109/67 (81) 100 12/24/18 10:44 58 26 40 12/24/18 10:00 53 20 118/39 (65) 100 12/24/18 09:14 72 27 40 12/24/18 09:13 100 12/24/18 09:00 51 16 119/54 (75) 100 12/24/18 08:00 40 12/24/18 08:00 65 18 128/56 (80) 100 12/24/18 08:00 63 12/24/18 08:00 Mechanical Ventilator 12/24/18 07:28 51 16 40 12/24/18 07:00 98.9 65 18 117/78 (91) 99 12/24/18 06:00 48 16 99/83 (88) 100 12/24/18 05:10 70 20 40 12/24/18 05:00 99.8 72 20 117/77 (90) 85 12/24/18 04:30 74 23 126/58 (80) 94 12/24/18 04:00 40 12/24/18 04:00 69 19 121/85 (97) 100 12/24/18 04:00 75 12/24/18 04:00 Mechanical Ventilator 12/24/18 03:30 71 21 104/75 (85) 95 12/24/18 03:16 69 19 40 12/24/18 03:00 70 20 149/56 (87) 94 12/24/18 02:00 72 22 137/65 (89) 100 12/24/18 01:00 75 22 133/102 (112) 99 12/24/18 00:50 73 19 40 12/24/18 00:00 Mechanical Ventilator 12/24/18 00:00 40 12/24/18 00:00 99.3 74 19 149/62 (91) 100 12/24/18 00:00 70 12/23/18 23:30 78 25 137/74 (95) 100 12/23/18 23:10 74 20 40 12/23/18 23:00 68 20 115/48 (70) 100 12/23/18 22:00 67 21 122/101 (108) 97 12/23/18 21:05 68 20 40 12/23/18 21:00 70 23 133/80 (97) 100 I&O Intake and Output 12/23/18 12/24/18 19:00 07:00 Intake Total 2640.416 ml 1277.0 ml Output Total 1008 ml 1190 ml Balance 1632.416 ml 87.0 ml Free Water 0 ml IV Total 1850.416 ml 527.0 ml Tube Feeding 670 ml 720 ml Blood Product 60 ml 30 ml Other 60 ml Output Urine Total 1000 ml 1190 ml Chest Tube Drainage Total 8 ml # Bowel Movements 2 Dressing: dry Wound: clean Drains: other Cardiovascular: RSR Respiratory: decreased breath sounds Abdomen: soft, present bowel sounds, non-distended Extremities: no tenderness, no cyanosis Laboratory Tests Test 12/24/18 00:30 12/24/18 04:00 12/24/18 08:47 Stool Occult Blood Negative (NEGATIVE) White Blood Count 16.4 K/UL (4.8-10.8) H Red Blood Count 3.25 M/UL (4.20-5.40) L Hemoglobin 9.7 G/DL (12.0-16.0) L Hematocrit 29.4 % (37.0-47.0) L Mean Corpuscular Volume 90 FL (80-99) Mean Corpuscular Hemoglobin 29.9 PG (27.0-31.0) Mean Corpuscular Hemoglobin Concent 33.1 G/DL (32.0-36.0) Red Cell Distribution Width 13.4 % (11.6-14.8) Platelet Count 292 K/UL (150-450) Mean Platelet Volume 6.0 FL (6.5-10.1) L Neutrophils (%) (Auto) 76.0 % (45.0-75.0) H Lymphocytes (%) (Auto) 13.2 % (20.0-45.0) L Monocytes (%) (Auto) 6.4 % (1.0-10.0) Eosinophils (%) (Auto) 3.8 % (0.0-3.0) H Basophils (%) (Auto) 0.7 % (0.0-2.0) Sodium Level 147 MMOL/L (136-145) H Potassium Level 4.1 MMOL/L (3.5-5.1) Chloride Level 111 MMOL/L (98-107) H Carbon Dioxide Level 28 MMOL/L (21-32) Anion Gap 8 mmol/L (5-15) Blood Urea Nitrogen 29 mg/dL (7-18) H Creatinine 1.0 MG/DL (0.55-1.30) Estimat Glomerular Filtration Rate mL/min (>60) Glucose Level 101 MG/DL (74-106) Uric Acid 2.4 MG/DL (2.6-7.2) L Calcium Level 9.1 MG/DL (8.5-10.1) Phosphorus Level 2.1 MG/DL (2.5-4.9) L Magnesium Level 1.9 MG/DL (1.8-2.4) Total Bilirubin 0.2 MG/DL (0.2-1.0) Direct Bilirubin < 0.1 MG/DL (0.0-0.3) Aspartate Amino Transf (AST/SGOT) 21 U/L (15-37) Alanine Aminotransferase (ALT/SGPT) 28 U/L (12-78) Alkaline Phosphatase 78 U/L (46-116) C-Reactive Protein, Quantitative 18.4 mg/dL (0.00-0.90) H Pro-B-Type Natriuretic Peptide 2481 pg/mL (0-125) H Total Protein 8.0 G/DL (6.4-8.2) Albumin 2.3 G/DL (3.4-5.0) L Globulin 5.7 g/dL Albumin/Globulin Ratio 0.4 (1.0-2.7) L Arterial Blood pH 7.412 (7.350-7.450) Arterial Blood Partial Pressure CO2 42.0 mmHg (35.0-45.0) Arterial Blood Partial Pressure O2 137.2 mmHg (75.0-100.0) H Arterial Blood HCO3 26.1 mmol/L (22.0-26.0) H Arterial Blood Oxygen Saturation 98.2 % (95-100) Arterial Blood Base Excess 1.4 (-2-2) Luís Test Positive Plan Problems: (1) Pneumomediastinum (2) Hypoxia (3) Pneumonia (4) Pneumothorax Assessment & Plan: bilateral chest tubes placed prior small air leak noted - resolved on suction CXR with resolved ptx. lots of subcutaneous air. - improving cont chest tubes to suction AM CXR possible place tubes to water seal tomorrow (5) Hypernatremia (6) Hypotension (7) Anemia (8) Seizure disorder (9) Septic shock Assessment & Plan: In ICU intubated on vent CXR noted labs noted cont IV ABx cont vent chest tubes critically ill prognosis guarded (10) HTN (hypertension) (11) Cardiomyopathy (12) Sepsis (13) Acute and chronic respiratory failure (14) Tracheostomy care Assessment & Plan: will plan for trach replacement in OR as she improves (15) Bowel obstruction (16) Feeding by G-tube Assessment & Plan: DAILY ESTIMATED NEEDS: Needs based on Critical Care, wound 63kg 22-28 kcals/kg 7767-5904 total kcals 1.25-2 g protein/kg 78-126 g total protein 25-30 mL/kg 3750-4925 total fluid mLs NUTRITION DIAGNOSIS: * Swallowing difficulty R/T respiratory status, dysphagia as evidenced by pt is trach/vent + PEG dep, s/p respiratory distress, currently orally intubated, NPO. * Increased kcal/prot needs R/T wound healing as evidenced by pt admitted w/ BL malleolus wounds, pending eval. CURRENT TF:NPO ENTERAL NUTRITION RECOMMENDATIONS: Glucerna 1.2 @ 60ml/hr x 22 hrs + Prosource 1pkt daily to provide 1320ml, 1584kcal, 79g + 11g prot, 1065ml free water - Once medically appropriate, initiate TF on Glucerna 1.2 @ 20ml/hr x 6 hrs. - Advance 10ml q 4-6 hrs as tolerated to goal rate - HOB >30 degrees/ water flushes per MD - Add Prosource 1pkt daily to better meet protein needs. - Hold 1 hour before and after Synthroid med. ADDITIONAL RECOMMENDATIONS: 1) Calibrated bedscale wts 2) Monitor lytes, replete as needed 3) Monitor BGs closely, need for hypoglycemic agents (BG 245 upon adm, now improved) 4) F/up w/ wound eval -Rec Tommie 1pkt BID and Vit C 250mg QD for wound healing (17) Malfunction of gastrostomy tube (18) Chronic respiratory failure (19) Chronic vegetative state (20) Nosocomial pneumonia (21) Fecal impaction (22) ATN (acute tubular necrosis) (23) Ileus (24) Acute on chronic renal failure (25) UTI (urinary tract infection) Livan Dean Dec 24, 2018 20:42
--- NOTE | 2018-12-24 21:00 | NUR ---
NURSE NOTES: Dr. mixon at bedside assessing chest tubes. We discussed plan of care fo patient. MD informed me that he will be removing chest tubes tomorrow 12/[address] water seal. Patients chest tubes and tubing working properly no leaks detected upon observation, no respiratory distress.
--- NOTE | 2018-12-24 22:00 | NUR ---
NURSE NOTES: Patient repositioned and provided oral care. Patient has alot of thick light yellow tenacious sputum. Lavage has been given already . Patient has had already 2 BM diarrhea BM, patient is on stool softeners. HR 49 SB, blood pressure is 110/75.
[2018-12-24] MEDS ORDERED: Amikacin 800 MG in NS 110 ML IV SCH (23:00)
[2018-12-25] VITALS (26 sets, daily range): BP systolic 90–139; BP diastolic 34–111
--- NOTE | 2018-12-25 | NUR ---
NURSE NOTES: NURSE NOTES: Patient repositioned and given oral care, thick tenacious sputum. Abx infusing, no acute distress or changes. Patient however continues to be having low grade fevers and is lightly warm. Temperature is 99.4, fan is at bedside. covers remain off.
--- NOTE | 2018-12-25 02:00 | NUR ---
NURSE NOTES: Patient repositioned and changed. Patient had another diarrhea BM. Patient was suctioned and lavaged. Femoral cental line dressing changed.
--- NOTE | 2018-12-25 04:00 | NUR ---
NURSE NOTES: Patient having liquid diarrhea, rectal tube inserted. Patient cleaned again, no respiratory distress at this time. Will continue to monitor.
[2018-12-25] MEDS: Piperacillin/Tazobactam 3.375 GM in NS 110 ML IVPB SCH ×2 (04:55→12:32)
[2018-12-25 05:52] LABS: BASOPHILS % (AUTO) 0.8 % (0.0-2.0); EOSINOPHILS % (AUTO) 5.9 % (0.0-3.0); HEMATOCRIT 27.1 % (37.0-47.0); HEMOGLOBIN 8.8 G/DL (12.0-16.0); LYMPHOCYTES % (AUTO) 15.9 % (20.0-45.0); MEAN CORPUSCULAR VOLUME 90 FL (80-99); NEUTROPHILS % (AUTO) 71.4 % (45.0-75.0); PLATELET COUNT 281 K/UL (150-450); RED BLOOD COUNT 3.01 M/UL (4.20-5.40); RED CELL DISTRIBUTION WIDTH 13.5 % (11.6-14.8); WHITE BLOOD COUNT 13.8 K/UL (4.8-10.8)
--- NOTE | 2018-12-25 06:00 | NUR ---
NURSE NOTES: Patient repositioned, and suctioned, no respiratory distress observed, HR SB in 40s and 50s, but BP remains stable with MAP above 60.
[2018-12-25 06:09] LABS: PHOSPHORUS 3.1 MG/DL (2.5-4.9)
[2018-12-25 06:18] LABS: ALANINE AMINOTRANSFERASE 25 U/L (12-78); ALBUMIN 2.4 G/DL (3.4-5.0); ALBUMIN/GLOBULIN RATIO 0.5 (1.0-2.7); ALKALINE PHOSPHATASE 69 U/L (46-116); ANION GAP 9 mmol/L (5-15); ASPARTATE AMINO TRANSFERASE 17 U/L (15-37); BILIRUBIN,TOTAL 0.2 MG/DL (0.2-1.0); BLOOD UREA NITROGEN 17 mg/dL (7-18); CALCIUM 8.7 MG/DL (8.5-10.1); CARBON DIOXIDE 28 MMOL/L (21-32); CHLORIDE 114 MMOL/L (98-107); POTASSIUM 3.9 MMOL/L (3.5-5.1); SODIUM 151 MMOL/L (136-145)
--- NOTE | 2018-12-25 07:00 | NUR ---
RESPIRATORY NOTE:Received pt. on 840 vent. With the current vent settings : A/C rate of 16, Vt 500, FI02 40%, PEEP +5. No respiratory distress noted, vitals wnl, o2sat >92%. Ambu bag at bedside. Vent plugged on red outlet. Will continue to monitor pt.
--- NOTE | 2018-12-25 07:03 | NUR ---
HAND-OFF: Report given to Kiana BOND.
--- NOTE | 2018-12-25 07:20 | NUR ---
NURSE NOTES: Received pt from RONDA Thompson. Pt can open eyes spontaneously on right eye only, unable to follow commands, alleviated facial edema. Crepitus noted in left shoulder and left side of neck. Old trach stoma noted, covered by 4x4 gauze, no drainage noted. Pt is orally intubated with ETT 7.0/24cm at left side lip line. Vent settings AC 16/TV500/Fio2 40%/PEEP5, spo2 100%, RR 16. SB on monitoring manager; HR 52. Patient has and left and right side chest tube, no leakage noted, connected to suction. No drainage noted. PEG tube noted, running Glucerna 1.2@60cc/hr, no residual, HOB 40 degrees, flushed with free water. F/C draining pale colored urine to gravity. Rectal tube draining well to gravity. Right femoral TLC noted, dressing change done last night, clean and intact. Obtained orders for PICC, called conservator for consent but she did not pcik up, left message. Dressing on bilateral heels and malleolus of ankle clean and intact. Bed locked, alarmed and in lowest position. Will continue plan of care.
--- NOTE | 2018-12-25 08:39 | NUR ---
RADIOLOGY DEPT., CHEST X-RAY DONE.-P.DYE
[2018-12-25] MEDS: Heparin 5000 units/ml inj SUBQ SCH ×2 (09:00→20:36)
[2018-12-25] MEDS: Amiodarone 200mg tab GT SCH (09:00)
--- NOTE | 2018-12-25 09:10 | NUR ---
NURSE NOTES: held heparin 5k due to bright red blood seen from chest tube and amiodarone held due to low pulse 52 and low BP 98/58.
[2018-12-25] MEDS ORDERED: Heparin1,000 units/500ml Premix(Conc:2 units/ml) IV PRN (09:15)
[2018-12-25] MEDS ORDERED: Lidocaine 1% Plain 30 ml INJ PRN (09:15)
--- NOTE | 2018-12-25 09:23 | Pulmonolgy Critical Care Note ---
Critical Care - Asmt/Plan Problems: (1) Acute and chronic respiratory failure (2) Pneumothorax (3) Hypernatremia (4) Seizure disorder (5) Chronic vegetative state (6) Feeding by G-tube (7) Cardiomyopathy Respiratory: monitor respiratory rate, adjust FIO2, CXR Cardiac: continue to monitor HR/BP Renal: F/U I&O, keep IV fluid, check electrolytes Infectious Disease: check cultures, continue antibiotics Gastrointestinal: continue feedings/current rate Endocrine: monitor blood sugar Hematologic: monitor H/H, transfuse if hgb<8.5 Neurologic: keep patient comfortable Affect: PRN ativan Prophylaxis: Heparin Notes Reviewed: renal social worker, 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, consultants, child welfare caseworkertranscription manager - Objective Last 24 Hour Vital Signs Date Time Temp Pulse Resp B/P (MAP) Pulse Ox O2 Delivery O2 Flow Rate FiO2 12/25/18 07:10 62 17 40 12/25/18 07:00 46 16 122/38 (66) 100 12/25/18 06:00 50 17 131/46 (74) 100 12/25/18 05:30 67 16 125/95 (105) 100 12/25/18 05:30 68 16 40 12/25/18 05:00 52 17 104/81 (89) 100 12/25/18 04:30 61 19 111/52 (71) 100 12/25/18 04:00 40 12/25/18 04:00 99.0 53 18 125/103 (110) 99 12/25/18 04:00 49 12/25/18 04:00 Mechanical Ventilator 12/25/18 03:30 57 15 108/46 (66) 100 12/25/18 03:12 49 16 40 12/25/18 03:00 56 18 102/56 (71) 99 12/25/18 02:00 57 16 125/41 (69) 100 12/25/18 01:30 55 18 116/52 (73) 81 12/25/18 01:22 60 18 40 12/25/18 01:00 99.4 49 18 134/111 (119) 97 12/25/18 00:00 46 16 128/49 (75) 12/25/18 00:00 52 12/25/18 00:00 Mechanical Ventilator 12/25/18 00:00 40 12/24/18 23:14 50 17 40 12/24/18 23:00 62 21 132/95 (107) 90 12/24/18 22:00 60 19 116/82 (93) 73 12/24/18 21:05 67 22 40 12/24/18 21:00 69 20 107/65 (79) 100 12/24/18 20:42 99.8 12/24/18 20:13 123/57 12/24/18 20:00 Mechanical Ventilator 12/24/18 20:00 100.0 65 19 139/63 (88) 98 12/24/18 20:00 40 12/24/18 20:00 45 12/24/18 19:44 65 21 40 12/24/18 19:00 60 18 137/61 (86) 100 12/24/18 18:00 65 19 123/57 (79) 100 12/24/18 17:00 48 16 111/42 (65) 100 12/24/18 16:33 62 23 40 12/24/18 16:00 99.2 63 17 131/52 (78) 100 12/24/18 16:00 Mechanical Ventilator 12/24/18 16:00 62 12/24/18 16:00 40 12/24/18 15:00 51 17 122/41 (68) 100 12/24/18 14:33 60 21 40 12/24/18 14:00 54 19 131/61 (84) 100 12/24/18 13:00 57 23 130/28 (62) 100 12/24/18 12:47 50 19 40 12/24/18 12:00 Mechanical Ventilator 12/24/18 12:00 99.8 60 24 129/53 (78) 100 12/24/18 12:00 57 12/24/18 11:00 69 27 109/67 (81) 100 12/24/18 10:44 58 26 40 12/24/18 10:00 53 20 118/39 (65) 100 Status: sedated Condition: critical HEENT: normocephalic Neck: full ROM Lungs: clear Heart: HR/BP stable Abdomen: soft, active bowel sounds Extremities: no C/C/E, edema Decubiti: location Micro: Microbiology Date/Time Source Procedure Growth Status 12/22/18 10:55 Urine,Clean Catch Urine Culture - Final NO GROWTH AFTER 48 HOURS Complete Critical Care - Subjective ROS Limited/Unobtainable: Yes Interval Events: two chest tube still in Condition: critical FI02: 40 Vent Support Breath Rate: 16 Vent Support Mode: AC Vent Tidal Volume: 500 Sputum Amount: Small PEEP: 5.0 PIP: 25 Tube Feeding Amount: 60 I&O: Intake and Output 12/24/18 12/25/18 18:59 06:59 Intake Total 2733.166 ml 847.5 ml Output Total 705 ml 1215 ml Balance 2028.166 ml -367.5 ml Free Water 80 ml 100 ml IV Total 1993.166 ml 27.5 ml Tube Feeding 660 ml 720 ml Output Urine Total 705 ml 1215 ml # Bowel Movements 4 7 CXR: pneumothorax has resolved ET-Tube: 7.0 ET Position: 24 Labs: Laboratory Tests Test 12/25/18 05:00 White Blood Count 13.8 K/UL (4.8-10.8) H Red Blood Count 3.01 M/UL (4.20-5.40) L Hemoglobin 8.8 G/DL (12.0-16.0) L Hematocrit 27.1 % (37.0-47.0) L Mean Corpuscular Volume 90 FL (80-99) Mean Corpuscular Hemoglobin 29.4 PG (27.0-31.0) Mean Corpuscular Hemoglobin Concent 32.5 G/DL (32.0-36.0) Red Cell Distribution Width 13.5 % (11.6-14.8) Platelet Count 281 K/UL (150-450) Mean Platelet Volume 6.8 FL (6.5-10.1) Neutrophils (%) (Auto) 71.4 % (45.0-75.0) Lymphocytes (%) (Auto) 15.9 % (20.0-45.0) L Monocytes (%) (Auto) 6.0 % (1.0-10.0) Eosinophils (%) (Auto) 5.9 % (0.0-3.0) H Basophils (%) (Auto) 0.8 % (0.0-2.0) Sodium Level 151 MMOL/L (136-145) H Potassium Level 3.9 MMOL/L (3.5-5.1) Chloride Level 114 MMOL/L (98-107) H Carbon Dioxide Level 28 MMOL/L (21-32) Anion Gap 9 mmol/L (5-15) Blood Urea Nitrogen 17 mg/dL (7-18) Creatinine 1.0 MG/DL (0.55-1.30) Estimat Glomerular Filtration Rate mL/min (>60) Glucose Level 92 MG/DL (74-106) Uric Acid 2.1 MG/DL (2.6-7.2) L Calcium Level 8.7 MG/DL (8.5-10.1) Phosphorus Level 3.1 MG/DL (2.5-4.9) Magnesium Level 2.0 MG/DL (1.8-2.4) Total Bilirubin 0.2 MG/DL (0.2-1.0) Aspartate Amino Transf (AST/SGOT) 17 U/L (15-37) Alanine Aminotransferase (ALT/SGPT) 25 U/L (12-78) Alkaline Phosphatase 69 U/L (46-116) C-Reactive Protein, Quantitative 15.5 mg/dL (0.00-0.90) H Pro-B-Type Natriuretic Peptide 4229 pg/mL (0-125) H Total Protein 7.0 G/DL (6.4-8.2) Albumin 2.4 G/DL (3.4-5.0) L Globulin 4.6 g/dL Albumin/Globulin Ratio 0.5 (1.0-2.7) L Cortisol AM Sample Pending Sue Yu MD Dec 25, 2018 09:23
[2018-12-25] MEDS: Docusate 100mg cap ORAL SCH ×2 (09:41→17:26)
[2018-12-25] MEDS: Pantoprazole Inj IV SCH ×2 (09:41→20:35)
[2018-12-25] MEDS: Lactulose 20gm/30ml UDC ORAL SCH ×3 (09:41→17:26)
[2018-12-25] MEDS: Ascorbic Acid 500mg tab GT SCH (09:41)
--- NOTE | 2018-12-25 11:14 | Diagnostic Imaging Report ---
Indication: Dyspnea Comparison: 12/24/2018 A single view chest radiograph was obtained. Findings: Mild interstitial edema may be present. Bilateral chest tubes noted unchanged. Endotracheal tube position is unchanged. Heart size is stable. IMPRESSION: No significant change from the prior day
--- NOTE | 2018-12-25 11:24 | NUR ---
NURSE NOTES: Turned and repositioned. Oral care given. No distress.
[2018-12-25] MEDS: Vancomycin 750mg/NS 275ml IVPB SCH ×2 (11:33)
--- NOTE | 2018-12-25 12:29 | GI Progress Note ---
Assessment/Plan Problems: (1) Ileus ICD Codes: K56.7 - Ileus, unspecified SNOMED: 821518050 (2) Fecal impaction ICD Codes: K56.41 - Fecal impaction SNOMED: 43649669 (3) Malfunction of gastrostomy tube ICD Codes: K94.23 - Gastrostomy malfunction SNOMED: 937642780 (4) Feeding by G-tube ICD Codes: Z93.1 - Gastrostomy status SNOMED: 113498863, 333147439 (5) Anemia ICD Codes: D64.9 - Anemia, unspecified SNOMED: 196943646 Status: unchanged Status Narrative Discussed with Dr. Skinner. Assessment/Plan OB stool negative GI procedures if emergent GTFs per ppi bowel regime, colace + miralax + lactulose prn transfusions no venofer given elevated ferritin levels follow labs The patient was seen and examined at bedside and all new and available data was reviewed in the patients chart. I agree with the above findings, impression and plan. (Patient seen earlier today. Signature stamp does not reflect patient encounter time.). - Jad Skinner MD Subjective Subjective limited Objective Last 24 Hour Vital Signs Date Time Temp Pulse Resp B/P (MAP) Pulse Ox O2 Delivery O2 Flow Rate FiO2 12/25/18 11:17 66 17 40 12/25/18 11:00 46 16 120/51 (74) 100 12/25/18 10:00 43 16 109/34 (59) 100 12/25/18 09:21 64 18 40 12/25/18 08:00 Mechanical Ventilator 12/25/18 08:00 40 12/25/18 07:10 62 17 40 12/25/18 07:00 46 16 122/38 (66) 100 12/25/18 06:00 50 17 131/46 (74) 100 12/25/18 05:30 67 16 125/95 (105) 100 12/25/18 05:30 68 16 40 12/25/18 05:00 52 17 104/81 (89) 100 12/25/18 04:30 61 19 111/52 (71) 100 12/25/18 04:00 40 12/25/18 04:00 99.0 53 18 125/103 (110) 99 12/25/18 04:00 49 12/25/18 04:00 Mechanical Ventilator 12/25/18 03:30 57 15 108/46 (66) 100 12/25/18 03:12 49 16 40 12/25/18 03:00 56 18 102/56 (71) 99 12/25/18 02:00 57 16 125/41 (69) 100 12/25/18 01:30 55 18 116/52 (73) 81 12/25/18 01:22 60 18 40 12/25/18 01:00 99.4 49 18 134/111 (119) 97 12/25/18 00:00 46 16 128/49 (75) 12/25/18 00:00 52 12/25/18 00:00 Mechanical Ventilator 12/25/18 00:00 40 12/24/18 23:14 50 17 40 12/24/18 23:00 62 21 132/95 (107) 90 12/24/18 22:00 60 19 116/82 (93) 73 12/24/18 21:05 67 22 40 12/24/18 21:00 69 20 107/65 (79) 100 12/24/18 20:42 99.8 12/24/18 20:13 123/57 12/24/18 20:00 Mechanical Ventilator 12/24/18 20:00 100.0 65 19 139/63 (88) 98 12/24/18 20:00 40 12/24/18 20:00 45 12/24/18 19:44 65 21 40 12/24/18 19:00 60 18 137/61 (86) 100 12/24/18 18:00 65 19 123/57 (79) 100 12/24/18 17:00 48 16 111/42 (65) 100 12/24/18 16:33 62 23 40 12/24/18 16:00 99.2 63 17 131/52 (78) 100 12/24/18 16:00 Mechanical Ventilator 12/24/18 16:00 62 12/24/18 16:00 40 12/24/18 15:00 51 17 122/41 (68) 100 12/24/18 14:33 60 21 40 12/24/18 14:00 54 19 131/61 (84) 100 12/24/18 13:00 57 23 130/28 (62) 100 12/24/18 12:47 50 19 40 Intake and Output 12/24/18 12/25/18 18:59 06:59 Intake Total 2733.166 ml 847.5 ml Output Total 705 ml 1215 ml Balance 2028.166 ml -367.5 ml Free Water 80 ml 100 ml IV Total 1993.166 ml 27.5 ml Tube Feeding 660 ml 720 ml Output Urine Total 705 ml 1215 ml # Bowel Movements 4 7 Laboratory Tests Test 12/25/18 05:00 12/25/18 10:50 White Blood Count 13.8 K/UL (4.8-10.8) H Red Blood Count 3.01 M/UL (4.20-5.40) L Hemoglobin 8.8 G/DL (12.0-16.0) L Hematocrit 27.1 % (37.0-47.0) L Mean Corpuscular Volume 90 FL (80-99) Mean Corpuscular Hemoglobin 29.4 PG (27.0-31.0) Mean Corpuscular Hemoglobin Concent 32.5 G/DL (32.0-36.0) Red Cell Distribution Width 13.5 % (11.6-14.8) Platelet Count 281 K/UL (150-450) Mean Platelet Volume 6.8 FL (6.5-10.1) Neutrophils (%) (Auto) 71.4 % (45.0-75.0) Lymphocytes (%) (Auto) 15.9 % (20.0-45.0) L Monocytes (%) (Auto) 6.0 % (1.0-10.0) Eosinophils (%) (Auto) 5.9 % (0.0-3.0) H Basophils (%) (Auto) 0.8 % (0.0-2.0) Sodium Level 151 MMOL/L (136-145) H Potassium Level 3.9 MMOL/L (3.5-5.1) Chloride Level 114 MMOL/L (98-107) H Carbon Dioxide Level 28 MMOL/L (21-32) Anion Gap 9 mmol/L (5-15) Blood Urea Nitrogen 17 mg/dL (7-18) Creatinine 1.0 MG/DL (0.55-1.30) Estimat Glomerular Filtration Rate mL/min (>60) Glucose Level 92 MG/DL (74-106) Uric Acid 2.1 MG/DL (2.6-7.2) L Calcium Level 8.7 MG/DL (8.5-10.1) Phosphorus Level 3.1 MG/DL (2.5-4.9) Magnesium Level 2.0 MG/DL (1.8-2.4) Total Bilirubin 0.2 MG/DL (0.2-1.0) Aspartate Amino Transf (AST/SGOT) 17 U/L (15-37) Alanine Aminotransferase (ALT/SGPT) 25 U/L (12-78) Alkaline Phosphatase 69 U/L (46-116) C-Reactive Protein, Quantitative 15.5 mg/dL (0.00-0.90) H Pro-B-Type Natriuretic Peptide 4229 pg/mL (0-125) H Total Protein 7.0 G/DL (6.4-8.2) Albumin 2.4 G/DL (3.4-5.0) L Globulin 4.6 g/dL Albumin/Globulin Ratio 0.5 (1.0-2.7) L Cortisol AM Sample Pending Random Amikacin Level 12.5 ug/mL Height (Feet): 5 Height (Inches): 6.00 Weight (Pounds): 129 General Appearance: WD/WN, no apparent distress, alert Cardiovascular: normal rate Respiratory/Chest: normal breath sounds, no respiratory distress, other - mech vent Abdominal Exam: normal bowel sounds, non tender, soft, GT site - c/d/i Extremities: non-tender Svetlana French NP Dec 25, 2018 12:29
--- NOTE | 2018-12-25 13:49 | NUR ---
NURSE NOTES: Turned and repositioned. Kept dry and clean. Rectal tube intact. no distress noted.
--- NOTE | 2018-12-25 13:57 | NUR ---
NURSE NOTES: Dr. Dean at bedside and placed patient on water seal. No leakage noted.
--- NOTE | 2018-12-25 14:23 | NUR ---
NURSE NOTES: attempted to call conservator again for PICC consent but unsuccessful. Voicemail says she is out of office today. Radiology dept notified.
--- NOTE | 2018-12-25 14:29 | General Progress Note ---
Assessment/Plan Problem List: (1) Acute and chronic respiratory failure ICD Codes: J96.20 - Acute and chronic respiratory failure, unspecified whether with hypoxia or hypercapnia SNOMED: 88183972 (2) Sepsis ICD Codes: A41.9 - Sepsis, unspecified organism SNOMED: 63032863 (3) HTN (hypertension) ICD Codes: I10 - Essential (primary) hypertension SNOMED: 89169784 (4) Seizure disorder ICD Codes: G40.909 - Epilepsy, unspecified, not intractable, without status epilepticus SNOMED: 150664278 (5) ATN (acute tubular necrosis) ICD Codes: N17.0 - Acute kidney failure with tubular necrosis SNOMED: 70712939 Status: unchanged Assessment/Plan: vent abx neph f/u cbc bmp am Subjective Constitutional: Reports: weakness Allergies: Coded Allergies: ASPIRIN (Verified Allergy, Unknown, 07/07/17) All Systems: reviewed and negative except above Subjective intubated sedated in icu Objective Last 24 Hour Vital Signs Date Time Temp Pulse Resp B/P (MAP) Pulse Ox O2 Delivery O2 Flow Rate FiO2 12/25/18 13:28 60 18 40 12/25/18 13:00 55 16 123/97 (106) 100 12/25/18 12:00 99.2 62 16 125/78 (94) 100 12/25/18 12:00 Mechanical Ventilator 12/25/18 12:00 40 12/25/18 12:00 45 12/25/18 11:17 66 17 40 12/25/18 11:00 46 16 120/51 (74) 100 12/25/18 10:00 43 16 109/34 (59) 100 12/25/18 09:21 64 18 40 12/25/18 08:00 Mechanical Ventilator 12/25/18 08:00 40 12/25/18 08:00 72 12/25/18 07:10 62 17 40 12/25/18 07:00 46 16 122/38 (66) 100 12/25/18 06:00 50 17 131/46 (74) 100 12/25/18 05:30 67 16 125/95 (105) 100 12/25/18 05:30 68 16 40 12/25/18 05:00 52 17 104/81 (89) 100 12/25/18 04:30 61 19 111/52 (71) 100 12/25/18 04:00 40 12/25/18 04:00 99.0 53 18 125/103 (110) 99 12/25/18 04:00 49 12/25/18 04:00 Mechanical Ventilator 12/25/18 03:30 57 15 108/46 (66) 100 12/25/18 03:12 49 16 40 12/25/18 03:00 56 18 102/56 (71) 99 12/25/18 02:00 57 16 125/41 (69) 100 12/25/18 01:30 55 18 116/52 (73) 81 12/25/18 01:22 60 18 40 12/25/18 01:00 99.4 49 18 134/111 (119) 97 12/25/18 00:00 46 16 128/49 (75) 12/25/18 00:00 52 12/25/18 00:00 Mechanical Ventilator 12/25/18 00:00 40 12/24/18 23:14 50 17 40 12/24/18 23:00 62 21 132/95 (107) 90 12/24/18 22:00 60 19 116/82 (93) 73 12/24/18 21:05 67 22 40 12/24/18 21:00 69 20 107/65 (79) 100 12/24/18 20:42 99.8 12/24/18 20:13 123/57 12/24/18 20:00 Mechanical Ventilator 12/24/18 20:00 100.0 65 19 139/63 (88) 98 12/24/18 20:00 40 12/24/18 20:00 45 12/24/18 19:44 65 21 40 12/24/18 19:00 60 18 137/61 (86) 100 12/24/18 18:00 65 19 123/57 (79) 100 12/24/18 17:00 48 16 111/42 (65) 100 12/24/18 16:33 62 23 40 12/24/18 16:00 99.2 63 17 131/52 (78) 100 12/24/18 16:00 Mechanical Ventilator 12/24/18 16:00 62 12/24/18 16:00 40 12/24/18 15:00 51 17 122/41 (68) 100 12/24/18 14:33 60 21 40 Intake and Output 12/24/18 12/25/18 19:00 07:00 Intake Total 2705.666 ml 847.5 ml Output Total 615 ml 1305 ml Balance 2090.666 ml -457.5 ml Free Water 80 ml 100 ml IV Total 1965.666 ml 27.5 ml Tube Feeding 660 ml 720 ml Output Urine Total 615 ml 1305 ml # Bowel Movements 3 7 Laboratory Tests 12/25/18 05:00: White Blood Count 13.8H, Red Blood Count 3.01L, Hemoglobin 8.8L, Hematocrit 27.1L, Mean Corpuscular Volume 90, Mean Corpuscular Hemoglobin 29.4, Mean Corpuscular Hemoglobin Concent 32.5, Red Cell Distribution Width 13.5, Platelet Count 281, Mean Platelet Volume 6.8, Neutrophils (%) (Auto) 71.4, Lymphocytes (% ) (Auto) 15.9L, Monocytes (%) (Auto) 6.0, Eosinophils (%) (Auto) 5.9H, Basophils (%) (Auto) 0.8, Sodium Level 151H, Potassium Level 3.9, Chloride Level 114H, Carbon Dioxide Level 28, Anion Gap 9, Blood Urea Nitrogen 17, Creatinine 1.0, Estimat Glomerular Filtration Rate , Glucose Level 92, Uric Acid 2.1L, Calcium Level 8.7, Phosphorus Level 3.1, Magnesium Level 2.0, Total Bilirubin 0.2, Aspartate Amino Transf (AST/SGOT) 17, Alanine Aminotransferase ( ALT/SGPT) 25, Alkaline Phosphatase 69, C-Reactive Protein, Quantitative 15.5H, Pro-B-Type Natriuretic Peptide 4229H, Total Protein 7.0, Albumin 2.4L, Globulin 4.6, Albumin/Globulin Ratio 0.5L, Cortisol AM Sample 9.2 12/25/18 10:50: Random Amikacin Level 12.5 Height (Feet): 5 Height (Inches): 6.00 Weight (Pounds): 129 General Appearance: lethargic EENT: normal ENT inspection Neck: normal alignment Cardiovascular: normal peripheral pulses, normal rate, regular rhythm Respiratory/Chest: chest wall non-tender, lungs clear, normal breath sounds Abdomen: normal bowel sounds, non tender, soft Extremities: normal inspection Edema: no edema noted Arm (L), no edema noted Arm (R), no edema noted Leg (L), no edema noted Leg (R), no edema noted Pedal (L), no edema noted Pedal (R), no edema noted Generalized Neurologic: motor weakness Skin: normal pigmentation, warm/dry Rl White DO Dec 25, 2018 14:29
--- NOTE | 2018-12-25 14:34 | Surgery Progress Note ---
Surgery Progress Note Subjective Additional Comments doing okay. more awake and alert today intubated on vent chest tubes without leak Objective Last 24 Hour Vital Signs Date Time Temp Pulse Resp B/P (MAP) Pulse Ox O2 Delivery O2 Flow Rate FiO2 12/25/18 13:28 60 18 40 12/25/18 13:00 55 16 123/97 (106) 100 12/25/18 12:00 99.2 62 16 125/78 (94) 100 12/25/18 12:00 Mechanical Ventilator 12/25/18 12:00 40 12/25/18 12:00 45 12/25/18 11:17 66 17 40 12/25/18 11:00 46 16 120/51 (74) 100 12/25/18 10:00 43 16 109/34 (59) 100 12/25/18 09:21 64 18 40 12/25/18 08:00 Mechanical Ventilator 12/25/18 08:00 40 12/25/18 08:00 72 12/25/18 07:10 62 17 40 12/25/18 07:00 46 16 122/38 (66) 100 12/25/18 06:00 50 17 131/46 (74) 100 12/25/18 05:30 67 16 125/95 (105) 100 12/25/18 05:30 68 16 40 12/25/18 05:00 52 17 104/81 (89) 100 12/25/18 04:30 61 19 111/52 (71) 100 12/25/18 04:00 40 12/25/18 04:00 99.0 53 18 125/103 (110) 99 12/25/18 04:00 49 12/25/18 04:00 Mechanical Ventilator 12/25/18 03:30 57 15 108/46 (66) 100 12/25/18 03:12 49 16 40 12/25/18 03:00 56 18 102/56 (71) 99 12/25/18 02:00 57 16 125/41 (69) 100 12/25/18 01:30 55 18 116/52 (73) 81 12/25/18 01:22 60 18 40 12/25/18 01:00 99.4 49 18 134/111 (119) 97 12/25/18 00:00 46 16 128/49 (75) 12/25/18 00:00 52 12/25/18 00:00 Mechanical Ventilator 12/25/18 00:00 40 12/24/18 23:14 50 17 40 12/24/18 23:00 62 21 132/95 (107) 90 12/24/18 22:00 60 19 116/82 (93) 73 12/24/18 21:05 67 22 40 12/24/18 21:00 69 20 107/65 (79) 100 12/24/18 20:42 99.8 12/24/18 20:13 123/57 12/24/18 20:00 Mechanical Ventilator 12/24/18 20:00 100.0 65 19 139/63 (88) 98 12/24/18 20:00 40 12/24/18 20:00 45 12/24/18 19:44 65 21 40 12/24/18 19:00 60 18 137/61 (86) 100 12/24/18 18:00 65 19 123/57 (79) 100 12/24/18 17:00 48 16 111/42 (65) 100 12/24/18 16:33 62 23 40 12/24/18 16:00 99.2 63 17 131/52 (78) 100 12/24/18 16:00 Mechanical Ventilator 12/24/18 16:00 62 12/24/18 16:00 40 12/24/18 15:00 51 17 122/41 (68) 100 I&O Intake and Output 12/24/18 12/25/18 19:00 07:00 Intake Total 2705.666 ml 847.5 ml Output Total 615 ml 1305 ml Balance 2090.666 ml -457.5 ml Free Water 80 ml 100 ml IV Total 1965.666 ml 27.5 ml Tube Feeding 660 ml 720 ml Output Urine Total 615 ml 1305 ml # Bowel Movements 3 7 Dressing: dry Wound: clean Drains: other Cardiovascular: RSR Respiratory: decreased breath sounds Abdomen: soft, present bowel sounds Extremities: no cyanosis Laboratory Tests Test 12/25/18 05:00 12/25/18 10:50 White Blood Count 13.8 K/UL (4.8-10.8) H Red Blood Count 3.01 M/UL (4.20-5.40) L Hemoglobin 8.8 G/DL (12.0-16.0) L Hematocrit 27.1 % (37.0-47.0) L Mean Corpuscular Volume 90 FL (80-99) Mean Corpuscular Hemoglobin 29.4 PG (27.0-31.0) Mean Corpuscular Hemoglobin Concent 32.5 G/DL (32.0-36.0) Red Cell Distribution Width 13.5 % (11.6-14.8) Platelet Count 281 K/UL (150-450) Mean Platelet Volume 6.8 FL (6.5-10.1) Neutrophils (%) (Auto) 71.4 % (45.0-75.0) Lymphocytes (%) (Auto) 15.9 % (20.0-45.0) L Monocytes (%) (Auto) 6.0 % (1.0-10.0) Eosinophils (%) (Auto) 5.9 % (0.0-3.0) H Basophils (%) (Auto) 0.8 % (0.0-2.0) Sodium Level 151 MMOL/L (136-145) H Potassium Level 3.9 MMOL/L (3.5-5.1) Chloride Level 114 MMOL/L (98-107) H Carbon Dioxide Level 28 MMOL/L (21-32) Anion Gap 9 mmol/L (5-15) Blood Urea Nitrogen 17 mg/dL (7-18) Creatinine 1.0 MG/DL (0.55-1.30) Estimat Glomerular Filtration Rate mL/min (>60) Glucose Level 92 MG/DL (74-106) Uric Acid 2.1 MG/DL (2.6-7.2) L Calcium Level 8.7 MG/DL (8.5-10.1) Phosphorus Level 3.1 MG/DL (2.5-4.9) Magnesium Level 2.0 MG/DL (1.8-2.4) Total Bilirubin 0.2 MG/DL (0.2-1.0) Aspartate Amino Transf (AST/SGOT) 17 U/L (15-37) Alanine Aminotransferase (ALT/SGPT) 25 U/L (12-78) Alkaline Phosphatase 69 U/L (46-116) C-Reactive Protein, Quantitative 15.5 mg/dL (0.00-0.90) H Pro-B-Type Natriuretic Peptide 4229 pg/mL (0-125) H Total Protein 7.0 G/DL (6.4-8.2) Albumin 2.4 G/DL (3.4-5.0) L Globulin 4.6 g/dL Albumin/Globulin Ratio 0.5 (1.0-2.7) L Cortisol AM Sample 9.2 UG/DL Random Amikacin Level 12.5 ug/mL Plan Problems: (1) Pneumomediastinum (2) Hypoxia (3) Pneumonia (4) Pneumothorax Assessment & Plan: bilateral chest tubes placed prior small air leak noted - resolved on suction CXR with resolved ptx. lots of subcutaneous air. - improving cont chest tubes water seal AM CXR (5) Hypernatremia (6) Hypotension (7) Anemia (8) Seizure disorder (9) Septic shock Assessment & Plan: In ICU intubated on vent CXR noted labs noted cont IV ABx cont vent chest tubes critically ill prognosis guarded (10) HTN (hypertension) (11) Cardiomyopathy (12) Sepsis (13) Acute and chronic respiratory failure (14) Tracheostomy care Assessment & Plan: will plan for trach replacement in OR as she improves (15) Bowel obstruction (16) Feeding by G-tube Assessment & Plan: DAILY ESTIMATED NEEDS: Needs based on Critical Care, wound 63kg 22-28 kcals/kg 1782-0143 total kcals 1.25-2 g protein/kg 78-126 g total protein 25-30 mL/kg 2066-9800 total fluid mLs NUTRITION DIAGNOSIS: * Swallowing difficulty R/T respiratory status, dysphagia as evidenced by pt is trach/vent + PEG dep, s/p respiratory distress, currently orally intubated, NPO. * Increased kcal/prot needs R/T wound healing as evidenced by pt admitted w/ BL malleolus wounds, pending eval. CURRENT TF:NPO ENTERAL NUTRITION RECOMMENDATIONS: Glucerna 1.2 @ 60ml/hr x 22 hrs + Prosource 1pkt daily to provide 1320ml, 1584kcal, 79g + 11g prot, 1065ml free water - Once medically appropriate, initiate TF on Glucerna 1.2 @ 20ml/hr x 6 hrs. - Advance 10ml q 4-6 hrs as tolerated to goal rate - HOB >30 degrees/ water flushes per MD - Add Prosource 1pkt daily to better meet protein needs. - Hold 1 hour before and after Synthroid med. ADDITIONAL RECOMMENDATIONS: 1) Calibrated bedscale wts 2) Monitor lytes, replete as needed 3) Monitor BGs closely, need for hypoglycemic agents (BG 245 upon adm, now improved) 4) F/up w/ wound eval -Rec Tommie 1pkt BID and Vit C 250mg QD for wound healing (17) Malfunction of gastrostomy tube (18) Chronic respiratory failure (19) Chronic vegetative state (20) Nosocomial pneumonia (21) Fecal impaction (22) ATN (acute tubular necrosis) (23) Ileus (24) Acute on chronic renal failure (25) UTI (urinary tract infection) Livan Dean Dec 25, 2018 14:33
--- NOTE | 2018-12-25 16:23 | Nephrology Progress Note ---
Assessment/Plan Problem List: (1) Acute on chronic renal failure (2) Acute and chronic respiratory failure (3) Pneumothorax (4) Cardiomyopathy Assessment acute on chronic Renal failure Acute on chronic respiratory failure Pneumothorax Anemia UTI HypoAlbuminemia HTN PEG Sz Disorder Cardiomyopathy Full code status ! . Plan D5W one liter lower amiodarone dose stop Hydrate- stop synthroid- very low TSH Monitor renal parameters Anemia bryant antibiotics avoid nephrotoxics optimize cardiac and pulm status per orders Subjective ROS Limited/Unobtainable: Yes Objective Objective Last 24 Hour Vital Signs Date Time Temp Pulse Resp B/P (MAP) Pulse Ox O2 Delivery O2 Flow Rate FiO2 12/25/18 15:15 60 18 40 12/25/18 13:28 60 18 40 12/25/18 13:00 55 16 123/97 (106) 100 12/25/18 12:00 99.2 62 16 125/78 (94) 100 12/25/18 12:00 Mechanical Ventilator 12/25/18 12:00 40 12/25/18 12:00 45 12/25/18 11:17 66 17 40 12/25/18 11:00 46 16 120/51 (74) 100 12/25/18 10:00 43 16 109/34 (59) 100 12/25/18 09:21 64 18 40 12/25/18 08:00 Mechanical Ventilator 12/25/18 08:00 40 12/25/18 08:00 72 12/25/18 07:10 62 17 40 12/25/18 07:00 46 16 122/38 (66) 100 12/25/18 06:00 50 17 131/46 (74) 100 12/25/18 05:30 67 16 125/95 (105) 100 12/25/18 05:30 68 16 40 12/25/18 05:00 52 17 104/81 (89) 100 12/25/18 04:30 61 19 111/52 (71) 100 12/25/18 04:00 40 12/25/18 04:00 99.0 53 18 125/103 (110) 99 12/25/18 04:00 49 12/25/18 04:00 Mechanical Ventilator 12/25/18 03:30 57 15 108/46 (66) 100 12/25/18 03:12 49 16 40 12/25/18 03:00 56 18 102/56 (71) 99 12/25/18 02:00 57 16 125/41 (69) 100 12/25/18 01:30 55 18 116/52 (73) 81 12/25/18 01:22 60 18 40 12/25/18 01:00 99.4 49 18 134/111 (119) 97 12/25/18 00:00 46 16 128/49 (75) 12/25/18 00:00 52 12/25/18 00:00 Mechanical Ventilator 12/25/18 00:00 40 12/24/18 23:14 50 17 40 12/24/18 23:00 62 21 132/95 (107) 90 12/24/18 22:00 60 19 116/82 (93) 73 12/24/18 21:05 67 22 40 12/24/18 21:00 69 20 107/65 (79) 100 12/24/18 20:42 99.8 12/24/18 20:13 123/57 12/24/18 20:00 Mechanical Ventilator 12/24/18 20:00 100.0 65 19 139/63 (88) 98 12/24/18 20:00 40 12/24/18 20:00 45 12/24/18 19:44 65 21 40 12/24/18 19:00 60 18 137/61 (86) 100 12/24/18 18:00 65 19 123/57 (79) 100 12/24/18 17:00 48 16 111/42 (65) 100 12/24/18 16:33 62 23 40 Intake and Output 12/24/18 12/25/18 19:00 07:00 Intake Total 2705.666 ml 847.5 ml Output Total 615 ml 1305 ml Balance 2090.666 ml -457.5 ml Free Water 80 ml 100 ml IV Total 1965.666 ml 27.5 ml Tube Feeding 660 ml 720 ml Output Urine Total 615 ml 1305 ml # Bowel Movements 3 7 Laboratory Tests 12/25/18 05:00: White Blood Count 13.8H, Red Blood Count 3.01L, Hemoglobin 8.8L, Hematocrit 27.1L, Mean Corpuscular Volume 90, Mean Corpuscular Hemoglobin 29.4, Mean Corpuscular Hemoglobin Concent 32.5, Red Cell Distribution Width 13.5, Platelet Count 281, Mean Platelet Volume 6.8, Neutrophils (%) (Auto) 71.4, Lymphocytes (% ) (Auto) 15.9L, Monocytes (%) (Auto) 6.0, Eosinophils (%) (Auto) 5.9H, Basophils (%) (Auto) 0.8, Sodium Level 151H, Potassium Level 3.9, Chloride Level 114H, Carbon Dioxide Level 28, Anion Gap 9, Blood Urea Nitrogen 17, Creatinine 1.0, Estimat Glomerular Filtration Rate , Glucose Level 92, Uric Acid 2.1L, Calcium Level 8.7, Phosphorus Level 3.1, Magnesium Level 2.0, Total Bilirubin 0.2, Aspartate Amino Transf (AST/SGOT) 17, Alanine Aminotransferase ( ALT/SGPT) 25, Alkaline Phosphatase 69, C-Reactive Protein, Quantitative 15.5H, Pro-B-Type Natriuretic Peptide 4229H, Total Protein 7.0, Albumin 2.4L, Globulin 4.6, Albumin/Globulin Ratio 0.5L, Cortisol AM Sample 9.2 12/25/18 10:50: Random Amikacin Level 12.5 Height (Feet): 5 Height (Inches): 6.00 Weight (Pounds): 129 General Appearance: no apparent distress Cardiovascular: bradycardia Respiratory/Chest: decreased breath sounds, other - chest tubes Abdomen: distended Tono Case MD Dec 25, 2018 16:23
--- NOTE | 2018-12-25 16:38 | NUR ---
NURSE NOTES: Turned and repositioned. Pasty green/brownish bm noted, removed rectal tube. Cleaned and kept dry. lavaged and oral care given.
--- NOTE | 2018-12-25 16:51 | NUR ---
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 Patient is trach and vent dependent. Patient conserved under the public guardian Naomi Gonzalez [phone]. If unable to reach Naomi called the main number [phone] and ask to speak with the duty worker for unit 11. Patient is a full code. Patient will continue to require skilled nursing placement upon discharge. Will monitor and be available as needed.
--- NOTE | 2018-12-25 17:13 | Infectious Diseases Prog Note ---
Assessment/Plan Assessment/Plan Assessment: Sepsis- Probable PNA SCx : PSA and H. Influenza 12/24 CXR Stable satisfactory position of endotracheal tube. Bilateral chest tubes remain in place R/o probable UTI Bacteremia : CoNS Afebrile Leukocytosis, overall improving Hx of recurrent PNA (VAP/HAP) -10/2017 MDR PSA, H. flu -sp cx MDR [facility] 07/2017, s/p Rx JAMES, improving Acute respiratory failure, failed trach and now intubated 12/21/18 Hypertension. History of seizure disorder Ventilator-dependent respiratory failure History of lower extremity DVT History of PEG and trach placement dementia quadriplegic COPD long term resident Plan: -Continue empiric IV Vancomycin # 5/7, Cefepime d# / and DC AMikacin # 3 and Zosyn # 4 x -f/u cx -Monitor CBC/CMP, temperatures -ETT care -aspiration precautions -Influenza sc - 2d ECHO Subjective Allergies: Coded Allergies: ASPIRIN (Verified Allergy, Unknown, 07/07/17) Subjective Fever and WBC is improving Objective Vital Signs Last 24 Hour Vital Signs Date Time Temp Pulse Resp B/P (MAP) Pulse Ox O2 Delivery O2 Flow Rate FiO2 12/25/18 16:00 40 12/25/18 16:00 Mechanical Ventilator 12/25/18 16:00 98.8 48 16 118/67 (84) 100 12/25/18 15:15 60 18 40 12/25/18 15:00 63 16 127/77 (94) 100 12/25/18 14:00 55 16 108/35 (59) 100 12/25/18 13:28 60 18 40 12/25/18 13:00 55 16 123/97 (106) 100 12/25/18 12:00 99.2 62 16 125/78 (94) 100 12/25/18 12:00 Mechanical Ventilator 12/25/18 12:00 40 12/25/18 12:00 45 12/25/18 11:17 66 17 40 12/25/18 11:00 46 16 120/51 (74) 100 12/25/18 10:00 43 16 109/34 (59) 100 12/25/18 09:21 64 18 40 12/25/18 08:00 Mechanical Ventilator 12/25/18 08:00 40 12/25/18 08:00 72 12/25/18 07:10 62 17 40 12/25/18 07:00 46 16 122/38 (66) 100 12/25/18 06:00 50 17 131/46 (74) 100 12/25/18 05:30 67 16 125/95 (105) 100 12/25/18 05:30 68 16 40 12/25/18 05:00 52 17 104/81 (89) 100 12/25/18 04:30 61 19 111/52 (71) 100 12/25/18 04:00 40 12/25/18 04:00 99.0 53 18 125/103 (110) 99 12/25/18 04:00 49 12/25/18 04:00 Mechanical Ventilator 12/25/18 03:30 57 15 108/46 (66) 100 12/25/18 03:12 49 16 40 12/25/18 03:00 56 18 102/56 (71) 99 12/25/18 02:00 57 16 125/41 (69) 100 12/25/18 01:30 55 18 116/52 (73) 81 12/25/18 01:22 60 18 40 12/25/18 01:00 99.4 49 18 134/111 (119) 97 12/25/18 00:00 46 16 128/49 (75) 12/25/18 00:00 52 12/25/18 00:00 Mechanical Ventilator 12/25/18 00:00 40 12/24/18 23:14 50 17 40 12/24/18 23:00 62 21 132/95 (107) 90 12/24/18 22:00 60 19 116/82 (93) 73 12/24/18 21:05 67 22 40 12/24/18 21:00 69 20 107/65 (79) 100 12/24/18 20:42 99.8 12/24/18 20:13 123/57 12/24/18 20:00 Mechanical Ventilator 12/24/18 20:00 100.0 65 19 139/63 (88) 98 12/24/18 20:00 40 12/24/18 20:00 45 12/24/18 19:44 65 21 40 12/24/18 19:00 60 18 137/61 (86) 100 12/24/18 18:00 65 19 123/57 (79) 100 Height (Feet): 5 Height (Inches): 6.00 Weight (Pounds): 129 HEENT: anicteric Respiratory/Chest: normal breath sounds Cardiovascular: regular rhythm Abdomen: soft, non tender Laboratory Tests Test 12/25/18 05:00 12/25/18 10:50 White Blood Count 13.8 K/UL (4.8-10.8) H Red Blood Count 3.01 M/UL (4.20-5.40) L Hemoglobin 8.8 G/DL (12.0-16.0) L Hematocrit 27.1 % (37.0-47.0) L Mean Corpuscular Volume 90 FL (80-99) Mean Corpuscular Hemoglobin 29.4 PG (27.0-31.0) Mean Corpuscular Hemoglobin Concent 32.5 G/DL (32.0-36.0) Red Cell Distribution Width 13.5 % (11.6-14.8) Platelet Count 281 K/UL (150-450) Mean Platelet Volume 6.8 FL (6.5-10.1) Neutrophils (%) (Auto) 71.4 % (45.0-75.0) Lymphocytes (%) (Auto) 15.9 % (20.0-45.0) L Monocytes (%) (Auto) 6.0 % (1.0-10.0) Eosinophils (%) (Auto) 5.9 % (0.0-3.0) H Basophils (%) (Auto) 0.8 % (0.0-2.0) Sodium Level 151 MMOL/L (136-145) H Potassium Level 3.9 MMOL/L (3.5-5.1) Chloride Level 114 MMOL/L (98-107) H Carbon Dioxide Level 28 MMOL/L (21-32) Anion Gap 9 mmol/L (5-15) Blood Urea Nitrogen 17 mg/dL (7-18) Creatinine 1.0 MG/DL (0.55-1.30) Estimat Glomerular Filtration Rate mL/min (>60) Glucose Level 92 MG/DL (74-106) Uric Acid 2.1 MG/DL (2.6-7.2) L Calcium Level 8.7 MG/DL (8.5-10.1) Phosphorus Level 3.1 MG/DL (2.5-4.9) Magnesium Level 2.0 MG/DL (1.8-2.4) Total Bilirubin 0.2 MG/DL (0.2-1.0) Aspartate Amino Transf (AST/SGOT) 17 U/L (15-37) Alanine Aminotransferase (ALT/SGPT) 25 U/L (12-78) Alkaline Phosphatase 69 U/L (46-116) C-Reactive Protein, Quantitative 15.5 mg/dL (0.00-0.90) H Pro-B-Type Natriuretic Peptide 4229 pg/mL (0-125) H Total Protein 7.0 G/DL (6.4-8.2) Albumin 2.4 G/DL (3.4-5.0) L Globulin 4.6 g/dL Albumin/Globulin Ratio 0.5 (1.0-2.7) L Cortisol AM Sample 9.2 UG/DL Random Amikacin Level 12.5 ug/mL Current Medications Medications (Trade) Dose Ordered Sig/Torsten Route PRN Reason Start Time Stop Time Status Last Admin Dose Admin Acetaminophen (Tylenol) 650 mg Q4H PRN GT Mild Pain/Temp > 100.5 12/23/18 13:15 01/22/19 13:14 12/24/18 20:12 Albuterol/ Ipratropium (Albuterol/ Ipratropium) 3 ml Q4H PRN HHN Shortness of Breath 12/21/18 20:45 12/26/18 20:44 Amikacin Protocol (Amikacin pharmacy to dose) 1 ea DAILY PRN MISC PER RX 12/21/18 21:15 01/20/19 21:14 Amiodarone HCl (Cordarone) 100 mg DAILY GT 12/25/18 09:00 01/21/19 08:59 Ascorbic Acid (Vitamin C) 250 mg DAILY GT 12/24/18 09:00 01/22/19 08:59 12/25/18 09:41 Chlorhexidine Gluconate (Mariah-Hex 2%) 1 applic DAILY@2000 TOPIC 12/25/18 20:00 01/24/19 19:59 Dextrose 1,000 ml @ 100 mls/hr Q10H IV 12/25/18 16:30 12/26/18 02:29 12/25/18 16:58 Docusate Sodium (Colace) 100 mg TWICE A DAY ORAL 12/24/18 09:00 01/23/19 08:59 12/25/18 09:41 Heparin Sodium (Porcine) (Heparin 5000 units/ml) 5,000 units EVERY 12 HOURS SUBQ 12/21/18 21:00 01/20/19 20:59 12/24/18 20:13 Heparin Sodium/ Sodium Chloride (Heparin 1000 units/500ml Premix) 1,000 unit ONCE PRN IV PICC LINE 12/25/18 09:15 12/27/18 18:00 Lactulose (Cephulac) 20 gm THREE TIMES A DAY ORAL 12/24/18 09:00 01/23/19 08:59 12/25/18 12:32 Lidocaine HCl (Xylocaine 1% 30ml) 30 ml ONCE PRN INJ PICC LINE 12/25/18 09:15 12/26/18 18:00 Lorazepam (Ativan 2mg/ml 1ml) 2 mg Q2H PRN IV For Anxiety 12/21/18 20:45 12/28/18 20:44 12/24/18 20:12 Morphine Sulfate (Morphine Sulfate) 4 mg Q4H PRN IVP Severe Pain (Pain Scale 7-10) 12/21/18 20:45 12/28/18 20:44 12/23/18 20:48 Norepinephrine Bitartrate 4 mg/ Dextrose 254 ml @ 0 mls/hr Q24H IV 12/21/18 22:00 01/20/19 21:59 Ondansetron HCl (Zofran) 4 mg Q6H PRN IVP Nausea & Vomiting 12/21/18 20:45 01/20/19 20:44 Pantoprazole (Protonix) 40 mg Q12HR IV 12/23/18 21:00 01/21/19 08:59 12/25/18 09:41 Polyethylene Glycol (Miralax) 17 gm DAILYPRN PRN GT Constipation 12/23/18 13:30 01/20/19 20:44 Vancomycin HCl (Vanco rx to dose) 1 ea DAILY PRN MISC PER RX 12/21/18 21:00 01/20/19 20:59 Vancomycin HCl 750 mg/Sodium Chloride 275 ml @ 183.333 mls/hr Q24H IVPB 12/23/18 11:00 12/28/18 10:59 12/25/18 11:33 Ricky Slater MD Dec 25, 2018 17:13
--- NOTE | 2018-12-25 19:06 | NUR ---
HAND-OFF: Report given to RONDA Lara using DANNIE. Addendum: 12/25/18 at 1915 by JOELLE BECKHAM RN Report given to RONDA Shine.
--- NOTE | 2018-12-25 19:14 | NUR ---
RESPIRATORY NOTE: Pt was received alert and awake on vent w/ settings : A/C rate of 16, Vt 500, FI02 40%, PEEP +5. No respiratory distress noted, vitals within normal range, o2sat > 92%. Ambu bag at bedside. Vent plugged on red outlet. Will continue to monitor closely.
--- NOTE | 2018-12-25 19:20 | NUR ---
NURSE NOTES: Recvd.on a vent.orally intubated.Awake stares blankly does'nt follows command.Stiff and contracted.See vent.settings.Lungs scatt.Rh.diminished BS at bases.Suctioned Tk.beige with some blood streak sec.NS Lavaged.P.Ox-100%.Inct of Large loose brownish stool.Made clean and dry.GT-Feeding in progress.Res.-0.IV Hydration inf.F/Cath patent.See I/O.
[2018-12-25] MEDS: Dyna-Hex 2% Top Sol 2oz TOPIC SCH (19:53)
[2018-12-25] MEDS ORDERED: Cefepime HCl 2 GM in D5W 55 ML IVPB SCH (20:00)
--- NOTE | 2018-12-25 21:44 | Consultation ---
History of Present Illness General Chief Complaint: Dyspnea/Respdistress Present Illness Allergies: Coded Allergies: ASPIRIN (Verified Allergy, Unknown, 07/07/17) Medication History Scheduled Albuterol Sulfate* (Albuterol Sulfate Hhn*), 3 ML INH Q6H, (Reported) Amiodarone Hcl* (Amiodarone Hcl*), 200 MG GT ONCE DAILY, (Reported) Ascorbic Acid* (Vitamin C*), 500 MG GT DAILY, (Reported) Cefepime Hcl/D5w (Cefepime-Dextrose 1 Gm/50 Ml), 1 GM IVPB EVERY 12 HOURS Chlorhexidine Gluconate* (Hibiclens*), 15 ML PO DAILY, (Reported) Cholecalciferol (Vitamin D3)* (Vitamin D*), 5,000 UNIT GT DAILY, (Reported) Clonazepam* (Klonopin*), 0.5 MG ORAL Q6H, (Reported) Cran/Vitc/Mannose/Inulin/Brom (Uti-Stat Liquid), 30 ML GT BID, (Reported) Docusate Sodium* (Colace*), 100 MG GT DAILY, (Reported) Heparin Sod (Porcine) (Heparin Sodium*), 5,000 UNITS SUBQ EVERY 12 HOURS, ( Reported) Hydroxyzine Hcl (Hydroxyzine Hcl), 10 MG GT ONCE DAILY, (Reported) Latanoprost* (Xalatan*), 1 DROP BOTH EYES BEDTIME, (Reported) Levothyroxine Sodium* (Synthroid*), 112 MCG GT DAILY, (Reported) Melatonin (Melatonin), Unknown Dose GT BEDTIME, (Reported) Memantine Hcl* (Namenda*), 5 MG GT TWICE A DAY, (Reported) Multivitamin Liquid* (Multi-Delyn*), 5 ML GT DAILY, (Reported) Na Phos,M-B/Na Phos,Di-Ba* (Fleet Enema*), 133 ML RECTAL DAILY, (Reported) Omeprazole (Omeprazole), 20 MG GT DAILY, (Reported) Pantoprazole* (Protonix*), 40 MG GT DAILY, (Reported) Scheduled PRN Acetaminophen* (Acetaminophen 325MG Tablet*), 650 MG GT Q4H PRN for Fever/ Headache/Mild Pain, (Reported) Acetaminophen* (Acetaminophen 325MG Tablet*), 600 MG GT Q4H PRN for MILD PAIN, ( Reported) Albuterol Sulfate* (Albuterol Sulfate Hhn*), 3 ML INH Q3HR PRN for Shortness of Breath, (Reported) Bisacodyl (Bisacodyl), 10 MG RC PRN PRN for Constipation, (Reported) Lorazepam* (Lorazepam*), 0.5 MG GT Q6HR PRN for For Anxiety, (Reported) Magnesium Hydroxide* (Milk Of Magnesia*), 30 ML GT DAILY PRN for Constipation, ( Reported) Ondansetron* (Zofran*), 4 MG IM Q6H PRN for Nausea & Vomiting, (Reported) Trazodone Hcl* (Desyrel*), 50 MG GT BEDTIME PRN for insomnia, (Reported) Miscellaneous Medications Heparin Sodium,Porcine/Ns/Pf (Heparin), 2,000 UNIT IV, (Reported) Discontinued Medications Acetaminophen* (Tylenol Extra Strength*), 1,000 MG ORAL Q6H, (Reported) Discontinued Reason: Medication dose changed Docusate Sodium* (Colace*), 100 MG ORAL DAILY, (Reported) Discontinued Reason: Therapy completed Piperacillin Sodium/Tazobactam (Zosyn 3.375 Gram Vial), 3.375 GM IVPB Q8HR, ( Reported) Discontinued Reason: Therapy completed Patient History Healthcare decision maker Carlos Salgado Resuscitation status Full Code Advanced Directive on File Physical Exam Last 24 Hour Vital Signs Date Time Temp Pulse Resp B/P (MAP) Pulse Ox O2 Delivery O2 Flow Rate FiO2 12/25/18 21:00 54 20 115/84 (94) 100 12/25/18 20:50 57 21 40 12/25/18 20:00 98.8 56 20 139/68 (91) 100 12/25/18 20:00 40 12/25/18 20:00 Mechanical Ventilator 12/25/18 20:00 56 12/25/18 19:14 63 23 40 12/25/18 19:00 71 18 135/46 (75) 100 12/25/18 18:00 54 18 120/45 (70) 100 12/25/18 17:16 52 16 40 12/25/18 17:00 54 16 90/52 (65) 100 12/25/18 16:00 52 12/25/18 16:00 40 12/25/18 16:00 Mechanical Ventilator 12/25/18 16:00 98.8 48 16 118/67 (84) 100 12/25/18 15:15 60 18 40 12/25/18 15:00 63 16 127/77 (94) 100 12/25/18 14:00 55 16 108/35 (59) 100 12/25/18 13:28 60 18 40 12/25/18 13:00 55 16 123/97 (106) 100 12/25/18 12:00 99.2 62 16 125/78 (94) 100 12/25/18 12:00 Mechanical Ventilator 12/25/18 12:00 40 12/25/18 12:00 45 12/25/18 11:17 66 17 40 12/25/18 11:00 46 16 120/51 (74) 100 12/25/18 10:00 43 16 109/34 (59) 100 12/25/18 09:21 64 18 40 12/25/18 08:00 Mechanical Ventilator 12/25/18 08:00 40 12/25/18 08:00 72 12/25/18 07:10 62 17 40 12/25/18 07:00 46 16 122/38 (66) 100 12/25/18 06:00 50 17 131/46 (74) 100 12/25/18 05:30 67 16 125/95 (105) 100 12/25/18 05:30 68 16 40 12/25/18 05:00 52 17 104/81 (89) 100 12/25/18 04:30 61 19 111/52 (71) 100 12/25/18 04:00 40 12/25/18 04:00 99.0 53 18 125/103 (110) 99 12/25/18 04:00 49 12/25/18 04:00 Mechanical Ventilator 12/25/18 03:30 57 15 108/46 (66) 100 12/25/18 03:12 49 16 40 12/25/18 03:00 56 18 102/56 (71) 99 12/25/18 02:00 57 16 125/41 (69) 100 12/25/18 01:30 55 18 116/52 (73) 81 12/25/18 01:22 60 18 40 12/25/18 01:00 99.4 49 18 134/111 (119) 97 12/25/18 00:00 46 16 128/49 (75) 12/25/18 00:00 52 12/25/18 00:00 Mechanical Ventilator 12/25/18 00:00 40 12/24/18 23:14 50 17 40 12/24/18 23:00 62 21 132/95 (107) 90 12/24/18 22:00 60 19 116/82 (93) 73 Intake and Output 12/24/18 12/25/18 19:00 07:00 Intake Total 2705.666 ml 847.5 ml Output Total 615 ml 1305 ml Balance 2090.666 ml -457.5 ml Free Water 80 ml 100 ml IV Total 1965.666 ml 27.5 ml Tube Feeding 660 ml 720 ml Output Urine Total 615 ml 1305 ml # Bowel Movements 3 7 Laboratory Tests Test 12/25/18 05:00 12/25/18 10:50 White Blood Count 13.8 K/UL (4.8-10.8) H Red Blood Count 3.01 M/UL (4.20-5.40) L Hemoglobin 8.8 G/DL (12.0-16.0) L Hematocrit 27.1 % (37.0-47.0) L Mean Corpuscular Volume 90 FL (80-99) Mean Corpuscular Hemoglobin 29.4 PG (27.0-31.0) Mean Corpuscular Hemoglobin Concent 32.5 G/DL (32.0-36.0) Red Cell Distribution Width 13.5 % (11.6-14.8) Platelet Count 281 K/UL (150-450) Mean Platelet Volume 6.8 FL (6.5-10.1) Neutrophils (%) (Auto) 71.4 % (45.0-75.0) Lymphocytes (%) (Auto) 15.9 % (20.0-45.0) L Monocytes (%) (Auto) 6.0 % (1.0-10.0) Eosinophils (%) (Auto) 5.9 % (0.0-3.0) H Basophils (%) (Auto) 0.8 % (0.0-2.0) Sodium Level 151 MMOL/L (136-145) H Potassium Level 3.9 MMOL/L (3.5-5.1) Chloride Level 114 MMOL/L (98-107) H Carbon Dioxide Level 28 MMOL/L (21-32) Anion Gap 9 mmol/L (5-15) Blood Urea Nitrogen 17 mg/dL (7-18) Creatinine 1.0 MG/DL (0.55-1.30) Estimat Glomerular Filtration Rate mL/min (>60) Glucose Level 92 MG/DL (74-106) Uric Acid 2.1 MG/DL (2.6-7.2) L Calcium Level 8.7 MG/DL (8.5-10.1) Phosphorus Level 3.1 MG/DL (2.5-4.9) Magnesium Level 2.0 MG/DL (1.8-2.4) Total Bilirubin 0.2 MG/DL (0.2-1.0) Aspartate Amino Transf (AST/SGOT) 17 U/L (15-37) Alanine Aminotransferase (ALT/SGPT) 25 U/L (12-78) Alkaline Phosphatase 69 U/L (46-116) C-Reactive Protein, Quantitative 15.5 mg/dL (0.00-0.90) H Pro-B-Type Natriuretic Peptide 4229 pg/mL (0-125) H Total Protein 7.0 G/DL (6.4-8.2) Albumin 2.4 G/DL (3.4-5.0) L Globulin 4.6 g/dL Albumin/Globulin Ratio 0.5 (1.0-2.7) L Cortisol AM Sample 9.2 UG/DL Random Amikacin Level 12.5 ug/mL Height (Feet): 5 Height (Inches): 6.00 Weight (Pounds): 129 Medications Current Medications Medications (Trade) Dose Ordered Sig/Torsten Route PRN Reason Start Time Stop Time Status Last Admin Dose Admin Acetaminophen (Tylenol) 650 mg Q4H PRN GT Mild Pain/Temp > 100.5 12/23/18 13:15 01/22/19 13:14 12/24/18 20:12 Albuterol/ Ipratropium (Albuterol/ Ipratropium) 3 ml Q4H PRN HHN Shortness of Breath 12/21/18 20:45 12/26/18 20:44 Amiodarone HCl (Cordarone) 100 mg DAILY GT 12/25/18 09:00 01/21/19 08:59 Ascorbic Acid (Vitamin C) 250 mg DAILY GT 12/24/18 09:00 01/22/19 08:59 12/25/18 09:41 Cefepime HCl 2 gm/ Dextrose 55 ml @ 110 mls/hr Q12H IVPB 12/26/18 04:00 01/02/19 03:59 Chlorhexidine Gluconate (Mariah-Hex 2%) 1 applic DAILY@2000 TOPIC 12/25/18 20:00 01/24/19 19:59 12/25/18 19:53 Dextrose 1,000 ml @ 100 mls/hr Q10H IV 12/25/18 16:30 12/26/18 02:29 12/25/18 16:58 Docusate Sodium (Colace) 100 mg TWICE A DAY ORAL 12/24/18 09:00 01/23/19 08:59 12/25/18 17:26 Heparin Sodium (Porcine) (Heparin 5000 units/ml) 5,000 units EVERY 12 HOURS SUBQ 12/21/18 21:00 01/20/19 20:59 12/25/18 20:36 Heparin Sodium/ Sodium Chloride (Heparin 1000 units/500ml Premix) 1,000 unit ONCE PRN IV PICC LINE 12/25/18 09:15 12/27/18 18:00 Lactulose (Cephulac) 20 gm THREE TIMES A DAY ORAL 12/24/18 09:00 01/23/19 08:59 12/25/18 17:26 Lidocaine HCl (Xylocaine 1% 30ml) 30 ml ONCE PRN INJ PICC LINE 12/25/18 09:15 12/26/18 18:00 Lorazepam (Ativan 2mg/ml 1ml) 2 mg Q2H PRN IV For Anxiety 12/21/18 20:45 12/28/18 20:44 12/24/18 20:12 Morphine Sulfate (Morphine Sulfate) 4 mg Q4H PRN IVP Severe Pain (Pain Scale 7-10) 12/21/18 20:45 12/28/18 20:44 12/23/18 20:48 Norepinephrine Bitartrate 4 mg/ Dextrose 254 ml @ 0 mls/hr Q24H IV 12/21/18 22:00 01/20/19 21:59 Ondansetron HCl (Zofran) 4 mg Q6H PRN IVP Nausea & Vomiting 12/21/18 20:45 01/20/19 20:44 Pantoprazole (Protonix) 40 mg Q12HR IV 12/23/18 21:00 01/21/19 08:59 12/25/18 20:35 Polyethylene Glycol (Miralax) 17 gm DAILYPRN PRN GT Constipation 12/23/18 13:30 01/20/19 20:44 Vancomycin HCl (Vanco rx to dose) 1 ea DAILY PRN MISC PER RX 12/21/18 21:00 01/20/19 20:59 Vancomycin HCl 750 mg/Sodium Chloride 275 ml @ 183.333 mls/hr Q24H IVPB 12/23/18 11:00 12/28/18 10:59 12/25/18 11:33 Assessment/Plan Assessment/Plan: Hematology Consultation REQ MD: Waldemar White DOS: 12/25/18 Chief Complaint: Dyspnea/Respdistress RFC: Anemia eval HPI Patient has a history of encephalopathy. Patient is G-tube dependent. Patient has a tracheostomy. Apparently patient uses to trach at times. Patient was noted to have acute desaturation. The trach was replaced. Unfortunately after replacing the tracheostomy patient apparently developed acute onset of crepitus throughout the face and body. Because of this patient also apparently had desaturations of O2 and was sent here for further evaluation. On arrival the tracheostomy tube was already removed. Patient was being ventilated with a mask by paramedics. Symptoms noted to be highly severe critical as patient's O2 saturation was low on arrival and approximately 80s. No further history is available other than the history obtained per the paramedics as patient is nonverbal. Symptoms noted to be severe. No other modifying factors. No other associated signs and symptoms. No other complaints were noted. He is currently intubated and is in the icu, heme consulted Coded Allergies: ASPIRIN (Verified Allergy, Unknown, 07/07/17) Past Medical History: HTN, arrhyth, COPD, dementia, other - G-tube PMH Narrative Encephalopathy quadriplegia Past Surgical History: other - Tracheostomy, G-tube Social History Narrative Patient stays at a longterm facility Now: No Reviewed Nursing Documentation: PMH: Agreed; PSxH: Agreed Past Medical History: No History, Except For Hx Cardiac Problems: Yes - Arrythmia Hx Hypertension: Yes Hx COPD: Yes Hx Cancer: No Hx Gastrointestinal Problems: Yes - G-tube Hx Dialysis: No Hx Neurological Problems: Yes - Encephalopathy, Qudrplegia Hx Cerebrovascular Accident: Yes Hx Dementia: Yes Hx Seizures: Yes - epilepsy Hx Epilepsy: Yes ROS: limited - Poor mental status PE Vital Signs Last 24 Hour Vital Signs Date Time Temp Pulse Resp B/P (MAP) Pulse Ox O2 Delivery O2 Flow Rate FiO2 12/25/18 21:00 54 20 115/84 (94) 100 12/25/18 20:50 57 21 40 12/25/18 20:00 98.8 56 20 139/68 (91) 100 12/25/18 20:00 40 12/25/18 20:00 Mechanical Ventilator 12/25/18 20:00 56 12/25/18 19:14 63 23 40 12/25/18 19:00 71 18 135/46 (75) 100 12/25/18 18:00 54 18 120/45 (70) 100 12/25/18 17:16 52 16 40 12/25/18 17:00 54 16 90/52 (65) 100 12/25/18 16:00 52 12/25/18 16:00 40 12/25/18 16:00 Mechanical Ventilator 12/25/18 16:00 98.8 48 16 118/67 (84) 100 12/25/18 15:15 60 18 40 12/25/18 15:00 63 16 127/77 (94) 100 12/25/18 14:00 55 16 108/35 (59) 100 12/25/18 13:28 60 18 40 12/25/18 13:00 55 16 123/97 (106) 100 12/25/18 12:00 99.2 62 16 125/78 (94) 100 12/25/18 12:00 Mechanical Ventilator 12/25/18 12:00 40 12/25/18 12:00 45 12/25/18 11:17 66 17 40 12/25/18 11:00 46 16 120/51 (74) 100 12/25/18 10:00 43 16 109/34 (59) 100 12/25/18 09:21 64 18 40 12/25/18 08:00 Mechanical Ventilator 12/25/18 08:00 40 12/25/18 08:00 72 12/25/18 07:10 62 17 40 12/25/18 07:00 46 16 122/38 (66) 100 12/25/18 06:00 50 17 131/46 (74) 100 12/25/18 05:30 67 16 125/95 (105) 100 12/25/18 05:30 68 16 40 12/25/18 05:00 52 17 104/81 (89) 100 12/25/18 04:30 61 19 111/52 (71) 100 12/25/18 04:00 40 12/25/18 04:00 99.0 53 18 125/103 (110) 99 12/25/18 04:00 49 12/25/18 04:00 Mechanical Ventilator 12/25/18 03:30 57 15 108/46 (66) 100 12/25/18 03:12 49 16 40 12/25/18 03:00 56 18 102/56 (71) 99 12/25/18 02:00 57 16 125/41 (69) 100 12/25/18 01:30 55 18 116/52 (73) 81 12/25/18 01:22 60 18 40 12/25/18 01:00 99.4 49 18 134/111 (119) 97 12/25/18 00:00 46 16 128/49 (75) 12/25/18 00:00 52 12/25/18 00:00 Mechanical Ventilator 12/25/18 00:00 40 12/24/18 23:14 50 17 40 12/24/18 23:00 62 21 132/95 (107) 90 12/24/18 22:00 60 19 116/82 (93) 73 Sp02 EP Interpretation: reviewed, normal General Appearance: severe distress, lethargic, obese, Stupor Head: atraumatic Eyes: bilateral eye normal inspection ENT: moist mucus membranes Neck: supple Respiratory: respiratory distress, decreased breath sounds ++ intubated Cardiovascular: tachycardia Gastrointestinal: distended - G-tube in place Genitourinary: no CVA tenderness Musculoskeletal: other - Contractures lower extremity Neurologic: other - Unable to assess due to patient poor mental status Psychiatric: other - Unable to assess patient unconscious Assessment and Recs: # Anemia of chronic disease due to underlying chronic medical issues, multifactorial --> Anemia workup has been ordered, rule out gi bleed --> ferritin is 610 --> No evidence of hemolysis is noted, peripheral smear has been reviewed. --> Hgb goal >7. Transfuse prn. --> Epogen or iron at this time is not particularly indicated --> Medications have been reviewed --> evaluate with Gi team prn --> transfuse if hgb is < 7 (will trend CBC daily) --> stool ob is negative --> transfused with 2 units 12/23 # Acute on chronic Renal failure --> per renal --> cr has improved # Acute on chronic respiratory failure s/p trach with revision --> Pneumothorax s/p chest tube # UTI # HypoAlbuminemia # HTN # PEG with Fecal impaction # Malfunction of gastrostomy tube The timing of this note does not necessarily reflect the time of the patient was seen. Greatly appreciate consultation! Micha Torres MD Dec 25, 2018 21:44
--- NOTE | 2018-12-25 21:45 | NUR ---
NURSE NOTES: HS care rendered.Pos.chg.backrub with Lotion.Suctioned.Due meds admin.Bila.CT to Water seal patency maintained.See Latest CXR.Sub-cutaneous emphysema almost all disappear.
[2018-12-25] MEDS ORDERED: Amikacin 800 MG in NS 110 ML IV SCH (23:00)
[2018-12-26] VITALS (25 sets, daily range): BP systolic 104–136; BP diastolic 41–95
--- NOTE | 2018-12-26 00:12 | NUR ---
HAND-OFF: Report given to RONDA PURI.
--- NOTE | 2018-12-26 01:00 | NUR ---
NURSE NOTES: Received report and pt from RONDA Shine. Pt's resting in bed, eyes closed. VS stable. Will continue to monitor.
--- NOTE | 2018-12-26 03:00 | NUR ---
NURSE NOTES: Pt's resting in bed, eyes closed, in no acute distress. VS stable. Will continue to monitor.
[2018-12-26] MEDS ORDERED: Cefepime HCl 2 GM in D5W 55 ML IVPB SCH (04:00)
--- NOTE | 2018-12-26 05:00 | NUR ---
NURSE NOTES: Pt's resting in bed, afebrile, in no acute distress. VS stable. Will continue to monitor.
[2018-12-26 05:16] LABS: EOSINOPHILS % (AUTO) 6.4 % (0.0-3.0); HEMATOCRIT 26.1 % (37.0-47.0); HEMOGLOBIN 8.5 G/DL (12.0-16.0); LYMPHOCYTES % (AUTO) 16.8 % (20.0-45.0); MEAN CORPUSCULAR VOLUME 91 FL (80-99); MONOCYTES % (AUTO) 6.7 % (1.0-10.0); NEUTROPHILS % (AUTO) 69.1 % (45.0-75.0); PLATELET COUNT 272 K/UL (150-450); RED BLOOD COUNT 2.86 M/UL (4.20-5.40); RED CELL DISTRIBUTION WIDTH 12.9 % (11.6-14.8); WHITE BLOOD COUNT 13.9 K/UL (4.8-10.8)
[2018-12-26 05:44] LABS: ALANINE AMINOTRANSFERASE 20 U/L (12-78); ALBUMIN 2.2 G/DL (3.4-5.0); ALBUMIN/GLOBULIN RATIO 0.4 (1.0-2.7); ALKALINE PHOSPHATASE 56 U/L (46-116); ANION GAP 6 mmol/L (5-15); ASPARTATE AMINO TRANSFERASE 12 U/L (15-37); BILIRUBIN,TOTAL 0.3 MG/DL (0.2-1.0); BLOOD UREA NITROGEN 13 mg/dL (7-18); CALCIUM 9.1 MG/DL (8.5-10.1); CARBON DIOXIDE 29 MMOL/L (21-32); CHLORIDE 112 MMOL/L (98-107); POTASSIUM 3.3 MMOL/L (3.5-5.1); SODIUM 147 MMOL/L (136-145)
--- NOTE | 2018-12-26 07:13 | NUR ---
HAND-OFF: Report given to RONDA Still.
--- NOTE | 2018-12-26 07:22 | NUR ---
RESPIRATORY NOTE:Received pt on current vent settings with size 7.0 ett and 24cm at the lip. Pt showing no s/s of distress. Vent alarms are on and audible. Will cont. to monitor pt.
--- NOTE | 2018-12-26 07:28 | NUR ---
NURSE NOTES: Patient received lying bed, awake, opens eyes. Orally intubated, AC- 16, TV-500, FiO2-40%, PEEP-5, oxygen sat-100%. Frothy sputum noted, drooling, suctioned by RT. Lung sounds diminished, bilateral chest tube present, water seal, scant drainage noted. Left femoral TLC present, TKO. Smith catheter in place, draining clear yellow urine. Pending CXR today. Sinus Bradycardia rate of 59. Safety measures implemented. Will continue to monitor the patient.
--- NOTE | 2018-12-26 08:47 | NUR ---
RADIOLOGY DEPT., CHEST X-RAY DONE.-P.DYE
[2018-12-26] MEDS: Amiodarone 200mg tab GT SCH (08:56)
[2018-12-26] MEDS: Lactulose 20gm/30ml UDC ORAL SCH ×3 (08:57→18:00)
[2018-12-26] MEDS: Ascorbic Acid 500mg tab GT SCH (08:57)
[2018-12-26] MEDS: Docusate 100mg cap ORAL SCH ×2 (08:57→18:00)
[2018-12-26] MEDS: Pantoprazole Inj IV SCH ×2 (08:57→20:43)
--- NOTE | 2018-12-26 09:04 | General Progress Note ---
Assessment/Plan Problem List: (1) Ileus ICD Codes: K56.7 - Ileus, unspecified SNOMED: 476037146 (2) Fecal impaction ICD Codes: K56.41 - Fecal impaction SNOMED: 33754042 (3) Feeding by G-tube ICD Codes: Z93.1 - Gastrostomy status SNOMED: 114380753, 001867992 (4) Anemia ICD Codes: D64.9 - Anemia, unspecified SNOMED: 339830187 (5) HTN (hypertension) ICD Codes: I10 - Essential (primary) hypertension SNOMED: 21995687 Status: unchanged Assessment/Plan: bowel regimen manual disimpaction neg stool ob GI procedures on hold for now GTF GT care Subjective ROS Limited/Unobtainable: No Allergies: Coded Allergies: ASPIRIN (Verified Allergy, Unknown, 07/07/17) Objective Last 24 Hour Vital Signs Date Time Temp Pulse Resp B/P (MAP) Pulse Ox O2 Delivery O2 Flow Rate FiO2 12/26/18 08:00 40 12/26/18 08:00 Mechanical Ventilator 12/26/18 07:20 66 22 40 12/26/18 07:00 65 16 123/81 (95) 100 12/26/18 06:00 65 16 114/88 (97) 100 12/26/18 05:19 67 21 40 12/26/18 05:00 66 16 110/60 (77) 100 12/26/18 04:00 69 12/26/18 04:00 98.8 64 16 112/64 (80) 100 12/26/18 04:00 40 12/26/18 04:00 Mechanical Ventilator 12/26/18 03:16 62 21 40 12/26/18 03:00 54 16 104/52 (69) 100 12/26/18 02:00 52 16 108/54 (72) 100 12/26/18 01:03 66 22 40 12/26/18 01:00 50 16 110/64 (79) 100 12/26/18 00:00 40 12/26/18 00:00 49 16 119/64 (82) 100 12/26/18 00:00 Mechanical Ventilator 12/26/18 00:00 49 12/25/18 23:35 59 21 40 12/25/18 23:00 48 16 106/35 (58) 100 12/25/18 22:00 119/64 12/25/18 22:00 56 19 120/92 (101) 100 12/25/18 21:00 54 20 115/84 (94) 100 12/25/18 20:50 57 21 40 12/25/18 20:00 98.8 56 20 139/68 (91) 100 12/25/18 20:00 40 12/25/18 20:00 Mechanical Ventilator 12/25/18 20:00 56 12/25/18 19:14 63 23 40 12/25/18 19:00 71 18 135/46 (75) 100 12/25/18 18:00 54 18 120/45 (70) 100 12/25/18 17:16 52 16 40 12/25/18 17:00 54 16 90/52 (65) 100 12/25/18 16:00 52 12/25/18 16:00 40 12/25/18 16:00 Mechanical Ventilator 12/25/18 16:00 98.8 48 16 118/67 (84) 100 12/25/18 15:15 60 18 40 12/25/18 15:00 63 16 127/77 (94) 100 12/25/18 14:00 55 16 108/35 (59) 100 12/25/18 13:28 60 18 40 12/25/18 13:00 55 16 123/97 (106) 100 12/25/18 12:00 99.2 62 16 125/78 (94) 100 12/25/18 12:00 Mechanical Ventilator 12/25/18 12:00 40 12/25/18 12:00 45 12/25/18 11:17 66 17 40 12/25/18 11:00 46 16 120/51 (74) 100 12/25/18 10:00 43 16 109/34 (59) 100 12/25/18 09:21 64 18 40 Intake and Output 12/25/18 12/26/18 19:00 07:00 Intake Total 860 ml 1680 ml Output Total 1200 ml 780 ml Balance -340 ml 900 ml Free Water 120 ml 50 ml IV Total 200 ml 910 ml Tube Feeding 540 ml 720 ml Output Urine Total 1200 ml 780 ml Chest Tube Drainage Total 0 ml # Bowel Movements 3 5 Laboratory Tests 12/25/18 10:50: Random Amikacin Level 12.5 5/1/19 04:00: White Blood Count 13.9H, Red Blood Count 2.86L, Hemoglobin 8.5L, Hematocrit 26.1L, Mean Corpuscular Volume 91, Mean Corpuscular Hemoglobin 29.7, Mean Corpuscular Hemoglobin Concent 32.5, Red Cell Distribution Width 12.9, Platelet Count 272, Mean Platelet Volume 6.2L, Neutrophils (%) (Auto) 69.1, Lymphocytes ( %) (Auto) 16.8L, Monocytes (%) (Auto) 6.7, Eosinophils (%) (Auto) 6.4H, Basophils (%) (Auto) 1.0, Sodium Level 147H, Potassium Level 3.3L, Chloride Level 112H, Carbon Dioxide Level 29, Anion Gap 6, Blood Urea Nitrogen 13, Creatinine 1.0, Estimat Glomerular Filtration Rate , Glucose Level 104, Uric Acid 2.5L, Calcium Level 9.1, Phosphorus Level 2.0L, Magnesium Level 1.7L, Total Bilirubin 0.3, Aspartate Amino Transf (AST/SGOT) 12L, Alanine Aminotransferase (ALT/SGPT) 20, Alkaline Phosphatase 56, C-Reactive Protein, Quantitative 9.6H, Pro-B-Type Natriuretic Peptide 2936H, Total Protein 7.3, Albumin 2.2L, Globulin 5.1, Albumin/Globulin Ratio 0.4L Height (Feet): 5 Height (Inches): 6.00 Weight (Pounds): 129 General Appearance: lethargic EENT: normal ENT inspection Neck: supple Cardiovascular: normal rate Respiratory/Chest: decreased breath sounds Abdomen: normal bowel sounds, non tender, soft Extremities: non-tender Jad Skinner MD December 26, 2018 09:04
[2018-12-26] MEDS: Heparin 5000 units/ml inj SUBQ SCH ×2 (09:06→20:45)
[2018-12-26] MEDS ORDERED: Potassium Phosphate 30 MM in NS 275 ML IV ONE (09:30)
--- NOTE | 2018-12-26 09:55 | General Progress Note ---
Assessment/Plan Problem List: (1) Acute and chronic respiratory failure ICD Codes: J96.20 - Acute and chronic respiratory failure, unspecified whether with hypoxia or hypercapnia SNOMED: 74729788 (2) Sepsis ICD Codes: A41.9 - Sepsis, unspecified organism SNOMED: 60837113 (3) HTN (hypertension) ICD Codes: I10 - Essential (primary) hypertension SNOMED: 93483251 (4) Seizure disorder ICD Codes: G40.909 - Epilepsy, unspecified, not intractable, without status epilepticus SNOMED: 481146001 (5) ATN (acute tubular necrosis) ICD Codes: N17.0 - Acute kidney failure with tubular necrosis SNOMED: 30123932 Status: unchanged Assessment/Plan: vent abx neph f/u cbc bmp am Subjective Constitutional: Reports: weakness Allergies: Coded Allergies: ASPIRIN (Verified Allergy, Unknown, 07/07/17) All Systems: reviewed and negative except above Subjective intubated sedated in icu Objective Last 24 Hour Vital Signs Date Time Temp Pulse Resp B/P (MAP) Pulse Ox O2 Delivery O2 Flow Rate FiO2 12/26/18 09:00 65 16 119/47 (71) 100 12/26/18 08:41 52 20 40 12/26/18 08:00 53 12/26/18 08:00 40 12/26/18 08:00 Mechanical Ventilator 12/26/18 08:00 99.4 59 19 116/54 (74) 100 12/26/18 07:20 66 22 40 12/26/18 07:00 65 16 123/81 (95) 100 12/26/18 06:00 65 16 114/88 (97) 100 12/26/18 05:19 67 21 40 12/26/18 05:00 66 16 110/60 (77) 100 12/26/18 04:00 69 12/26/18 04:00 98.8 64 16 112/64 (80) 100 12/26/18 04:00 40 12/26/18 04:00 Mechanical Ventilator 12/26/18 03:16 62 21 40 12/26/18 03:00 54 16 104/52 (69) 100 12/26/18 02:00 52 16 108/54 (72) 100 12/26/18 01:03 66 22 40 12/26/18 01:00 50 16 110/64 (79) 100 12/26/18 00:00 40 12/26/18 00:00 49 16 119/64 (82) 100 12/26/18 00:00 Mechanical Ventilator 12/26/18 00:00 49 12/25/18 23:35 59 21 40 12/25/18 23:00 48 16 106/35 (58) 100 12/25/18 22:00 119/64 12/25/18 22:00 56 19 120/92 (101) 100 12/25/18 21:00 54 20 115/84 (94) 100 12/25/18 20:50 57 21 40 12/25/18 20:00 98.8 56 20 139/68 (91) 100 12/25/18 20:00 40 12/25/18 20:00 Mechanical Ventilator 12/25/18 20:00 56 12/25/18 19:14 63 23 40 12/25/18 19:00 71 18 135/46 (75) 100 12/25/18 18:00 54 18 120/45 (70) 100 12/25/18 17:16 52 16 40 12/25/18 17:00 54 16 90/52 (65) 100 12/25/18 16:00 52 12/25/18 16:00 40 12/25/18 16:00 Mechanical Ventilator 12/25/18 16:00 98.8 48 16 118/67 (84) 100 12/25/18 15:15 60 18 40 12/25/18 15:00 63 16 127/77 (94) 100 12/25/18 14:00 55 16 108/35 (59) 100 12/25/18 13:28 60 18 40 12/25/18 13:00 55 16 123/97 (106) 100 12/25/18 12:00 99.2 62 16 125/78 (94) 100 12/25/18 12:00 Mechanical Ventilator 12/25/18 12:00 40 12/25/18 12:00 45 12/25/18 11:17 66 17 40 12/25/18 11:00 46 16 120/51 (74) 100 12/25/18 10:00 43 16 109/34 (59) 100 Intake and Output 12/25/18 12/26/18 18:59 06:59 Intake Total 760 ml 1780 ml Output Total 1275 ml 780 ml Balance -515 ml 1000 ml Free Water 120 ml 50 ml IV Total 100 ml 1010 ml Tube Feeding 540 ml 720 ml Output Urine Total 1275 ml 780 ml Chest Tube Drainage Total 0 ml # Bowel Movements 3 5 Laboratory Tests 12/25/18 10:50: Random Amikacin Level 12.5 12/26/18 04:00: White Blood Count 13.9H, Red Blood Count 2.86L, Hemoglobin 8.5L, Hematocrit 26.1L, Mean Corpuscular Volume 91, Mean Corpuscular Hemoglobin 29.7, Mean Corpuscular Hemoglobin Concent 32.5, Red Cell Distribution Width 12.9, Platelet Count 272, Mean Platelet Volume 6.2L, Neutrophils (%) (Auto) 69.1, Lymphocytes ( %) (Auto) 16.8L, Monocytes (%) (Auto) 6.7, Eosinophils (%) (Auto) 6.4H, Basophils (%) (Auto) 1.0, Sodium Level 147H, Potassium Level 3.3L, Chloride Level 112H, Carbon Dioxide Level 29, Anion Gap 6, Blood Urea Nitrogen 13, Creatinine 1.0, Estimat Glomerular Filtration Rate , Glucose Level 104, Uric Acid 2.5L, Calcium Level 9.1, Phosphorus Level 2.0L, Magnesium Level 1.7L, Total Bilirubin 0.3, Aspartate Amino Transf (AST/SGOT) 12L, Alanine Aminotransferase (ALT/SGPT) 20, Alkaline Phosphatase 56, C-Reactive Protein, Quantitative 9.6H, Pro-B-Type Natriuretic Peptide 2936H, Total Protein 7.3, Albumin 2.2L, Globulin 5.1, Albumin/Globulin Ratio 0.4L Height (Feet): 5 Height (Inches): 6.00 Weight (Pounds): 129 General Appearance: lethargic EENT: normal ENT inspection Neck: non-tender, normal alignment, supple Cardiovascular: normal peripheral pulses, normal rate, regular rhythm Respiratory/Chest: chest wall non-tender, lungs clear, normal breath sounds Abdomen: normal bowel sounds, non tender, soft Extremities: normal inspection Edema: no edema noted Arm (L), no edema noted Arm (R), no edema noted Leg (L), no edema noted Leg (R), no edema noted Pedal (L), no edema noted Pedal (R), no edema noted Generalized Neurologic: motor weakness Skin: normal pigmentation, warm/dry Rl White DO December 26, 2018 09:55
--- NOTE | 2018-12-26 10:33 | Pulmonolgy Critical Care Note ---
Critical Care - Asmt/Plan Problems: (1) Acute and chronic respiratory failure (2) Pneumothorax (3) Hypernatremia (4) Seizure disorder (5) Chronic vegetative state (6) Feeding by G-tube (7) Cardiomyopathy Respiratory: monitor respiratory rate, adjust FIO2, CXR Cardiac: continue to monitor HR/BP Renal: F/U I&O, check electrolytes Infectious Disease: check cultures, continue antibiotics Gastrointestinal: continue feedings/current rate Endocrine: monitor blood sugar, check HgA1C Hematologic: monitor H/H, transfuse if hgb<8.5 Neurologic: PRN Ativan, keep patient comfortable Affect: PRN ativan Notes Reviewed: client executive, cardio Discussed with: nurses, mental health case managercredit relationship manager - Objective Last 24 Hour Vital Signs Date Time Temp Pulse Resp B/P (MAP) Pulse Ox O2 Delivery O2 Flow Rate FiO2 12/26/18 09:00 65 16 119/47 (71) 100 12/26/18 08:41 52 20 40 12/26/18 08:00 53 12/26/18 08:00 40 12/26/18 08:00 Mechanical Ventilator 12/26/18 08:00 99.4 59 19 116/54 (74) 100 12/26/18 07:20 66 22 40 12/26/18 07:00 65 16 123/81 (95) 100 12/26/18 06:00 65 16 114/88 (97) 100 12/26/18 05:19 67 21 40 12/26/18 05:00 66 16 110/60 (77) 100 12/26/18 04:00 69 12/26/18 04:00 98.8 64 16 112/64 (80) 100 12/26/18 04:00 40 12/26/18 04:00 Mechanical Ventilator 12/26/18 03:16 62 21 40 12/26/18 03:00 54 16 104/52 (69) 100 12/26/18 02:00 52 16 108/54 (72) 100 12/26/18 01:03 66 22 40 12/26/18 01:00 50 16 110/64 (79) 100 12/26/18 00:00 40 12/26/18 00:00 49 16 119/64 (82) 100 12/26/18 00:00 Mechanical Ventilator 12/26/18 00:00 49 4/30/19 23:35 59 21 40 12/25/18 23:00 48 16 106/35 (58) 100 12/25/18 22:00 119/64 12/25/18 22:00 56 19 120/92 (101) 100 12/25/18 21:00 54 20 115/84 (94) 100 12/25/18 20:50 57 21 40 12/25/18 20:00 98.8 56 20 139/68 (91) 100 12/25/18 20:00 40 12/25/18 20:00 Mechanical Ventilator 12/25/18 20:00 56 12/25/18 19:14 63 23 40 12/25/18 19:00 71 18 135/46 (75) 100 12/25/18 18:00 54 18 120/45 (70) 100 12/25/18 17:16 52 16 40 12/25/18 17:00 54 16 90/52 (65) 100 12/25/18 16:00 52 12/25/18 16:00 40 12/25/18 16:00 Mechanical Ventilator 12/25/18 16:00 98.8 48 16 118/67 (84) 100 12/25/18 15:15 60 18 40 12/25/18 15:00 63 16 127/77 (94) 100 12/25/18 14:00 55 16 108/35 (59) 100 12/25/18 13:28 60 18 40 12/25/18 13:00 55 16 123/97 (106) 100 12/25/18 12:00 99.2 62 16 125/78 (94) 100 12/25/18 12:00 Mechanical Ventilator 12/25/18 12:00 40 12/25/18 12:00 45 12/25/18 11:17 66 17 40 12/25/18 11:00 46 16 120/51 (74) 100 Status: awake, sedated HEENT: atraumatic Neck: full ROM Lungs: clear Heart: HR/BP stable Abdomen: soft, active bowel sounds, feeding tube Extremities: edema Micro: Microbiology Date/Time Source Procedure Growth Status 12/23/18 11:00 Blood Blood Culture - Preliminary NO GROWTH AFTER 48 HOURS Resulted 12/23/18 10:57 Blood Blood Culture - Preliminary NO GROWTH AFTER 48 HOURS Resulted Critical Care - Subjective ROS Limited/Unobtainable: Yes Interval Events: bilateral chest tube in place Condition: critical FI02: 40 Vent Support Breath Rate: 16 Vent Support Mode: AC Vent Tidal Volume: 500 Sputum Amount: Small PEEP: 5.0 PIP: 25 Tube Feeding Amount: 60 I&O: Intake and Output 12/25/18 12/26/18 18:59 06:59 Intake Total 760 ml 1780 ml Output Total 1275 ml 780 ml Balance -515 ml 1000 ml Free Water 120 ml 50 ml IV Total 100 ml 1010 ml Tube Feeding 540 ml 720 ml Output Urine Total 1275 ml 780 ml Chest Tube Drainage Total 0 ml # Bowel Movements 3 5 ET-Tube: 7.0 ET Position: 24 Labs: Laboratory Tests Test 12/25/18 10:50 12/26/18 04:00 12/26/18 10:10 Random Amikacin Level 12.5 ug/mL White Blood Count 13.9 K/UL (4.8-10.8) H Red Blood Count 2.86 M/UL (4.20-5.40) L Hemoglobin 8.5 G/DL (12.0-16.0) L Hematocrit 26.1 % (37.0-47.0) L Mean Corpuscular Volume 91 FL (80-99) Mean Corpuscular Hemoglobin 29.7 PG (27.0-31.0) Mean Corpuscular Hemoglobin Concent 32.5 G/DL (32.0-36.0) Red Cell Distribution Width 12.9 % (11.6-14.8) Platelet Count 272 K/UL (150-450) Mean Platelet Volume 6.2 FL (6.5-10.1) L Neutrophils (%) (Auto) 69.1 % (45.0-75.0) Lymphocytes (%) (Auto) 16.8 % (20.0-45.0) L Monocytes (%) (Auto) 6.7 % (1.0-10.0) Eosinophils (%) (Auto) 6.4 % (0.0-3.0) H Basophils (%) (Auto) 1.0 % (0.0-2.0) Sodium Level 147 MMOL/L (136-145) H Potassium Level 3.3 MMOL/L (3.5-5.1) L Chloride Level 112 MMOL/L (98-107) H Carbon Dioxide Level 29 MMOL/L (21-32) Anion Gap 6 mmol/L (5-15) Blood Urea Nitrogen 13 mg/dL (7-18) Creatinine 1.0 MG/DL (0.55-1.30) Estimat Glomerular Filtration Rate mL/min (>60) Glucose Level 104 MG/DL (74-106) Uric Acid 2.5 MG/DL (2.6-7.2) L Calcium Level 9.1 MG/DL (8.5-10.1) Phosphorus Level 2.0 MG/DL (2.5-4.9) L Magnesium Level 1.7 MG/DL (1.8-2.4) L Total Bilirubin 0.3 MG/DL (0.2-1.0) Aspartate Amino Transf (AST/SGOT) 12 U/L (15-37) L Alanine Aminotransferase (ALT/SGPT) 20 U/L (12-78) Alkaline Phosphatase 56 U/L (46-116) C-Reactive Protein, Quantitative 9.6 mg/dL (0.00-0.90) H Pro-B-Type Natriuretic Peptide 2936 pg/mL (0-125) H Total Protein 7.3 G/DL (6.4-8.2) Albumin 2.2 G/DL (3.4-5.0) L Globulin 5.1 g/dL Albumin/Globulin Ratio 0.4 (1.0-2.7) L Vancomycin Level Trough Pending Sue Yu MD December 26, 2018 10:33
[2018-12-26] MEDS ORDERED: Amikacin 800 MG in NS 110 ML IV SCH (11:00)
--- NOTE | 2018-12-26 11:10 | Diagnostic Imaging Report ---
Indication: Dyspnea Technique: One view of the chest Comparison: 12/25/2018 Findings: Bilateral interstitial and airspace opacities persist, unchanged. Bilateral chest tubes are again demonstrated. There is decreased subcutaneous emphysema. The heart size is normal. Stable satisfactory position of endotracheal tube. Impression: Decreased subcutaneous emphysema. Otherwise, little change management administrator one day
[2018-12-26] MEDS ORDERED: Fleet's Mineral Oil Enema RECTAL ONE (11:30)
--- NOTE | 2018-12-26 11:30 | NUR ---
HAND-OFF: Report given to RONDA Carter.
[2018-12-26] MEDS ORDERED: Vancomycin 500mg/D5W 110ml IVPB SCH ×2 (12:00)
[2018-12-26] MEDS ORDERED: Sodium Phosphate 30 MM in NS 275 ML IV ONE (12:45)
--- NOTE | 2018-12-26 14:00 | NUR ---
NURSE NOTES: turned and repositioned pt, oral care provided. VSS.
--- NOTE | 2018-12-26 14:34 | Nephrology Progress Note ---
Assessment/Plan Problem List: (1) Acute on chronic renal failure (2) Acute and chronic respiratory failure (3) Pneumothorax (4) Cardiomyopathy Assessment acute on chronic Renal failure Acute on chronic respiratory failure Pneumothorax Anemia UTI HypoAlbuminemia HTN PEG Sz Disorder Cardiomyopathy Full code status ! . Plan D5W one liter K Phos lower amiodarone dose stop Hydrate- stop synthroid- very low TSH Monitor renal parameters Anemia bryant antibiotics avoid nephrotoxics optimize cardiac and pulm status per orders Subjective ROS Limited/Unobtainable: Yes Objective Objective Last 24 Hour Vital Signs Date Time Temp Pulse Resp B/P (MAP) Pulse Ox O2 Delivery O2 Flow Rate FiO2 12/26/18 13:00 63 20 119/80 (93) 100 12/26/18 12:00 99.4 62 19 120/54 (76) 100 12/26/18 12:00 62 12/26/18 12:00 Mechanical Ventilator 12/26/18 12:00 40 12/26/18 11:00 63 20 122/95 (104) 100 12/26/18 10:50 61 20 40 12/26/18 10:00 59 18 119/41 (67) 100 12/26/18 09:00 65 16 119/47 (71) 100 12/26/18 08:41 52 20 40 12/26/18 08:00 53 12/26/18 08:00 40 12/26/18 08:00 Mechanical Ventilator 12/26/18 08:00 99.4 59 19 116/54 (74) 100 12/26/18 07:20 66 22 40 12/26/18 07:00 65 16 123/81 (95) 100 12/26/18 06:00 65 16 114/88 (97) 100 12/26/18 05:19 67 21 40 12/26/18 05:00 66 16 110/60 (77) 100 12/26/18 04:00 69 12/26/18 04:00 98.8 64 16 112/64 (80) 100 12/26/18 04:00 40 12/26/18 04:00 Mechanical Ventilator 12/26/18 03:16 62 21 40 12/26/18 03:00 54 16 104/52 (69) 100 12/26/18 02:00 52 16 108/54 (72) 100 12/26/18 01:03 66 22 40 12/26/18 01:00 50 16 110/64 (79) 100 12/26/18 00:00 40 12/26/18 00:00 49 16 119/64 (82) 100 12/26/18 00:00 Mechanical Ventilator 12/26/18 00:00 49 12/25/18 23:35 59 21 40 12/25/18 23:00 48 16 106/35 (58) 100 12/25/18 22:00 119/64 12/25/18 22:00 56 19 120/92 (101) 100 12/25/18 21:00 54 20 115/84 (94) 100 12/25/18 20:50 57 21 40 12/25/18 20:00 98.8 56 20 139/68 (91) 100 12/25/18 20:00 40 12/25/18 20:00 Mechanical Ventilator 12/25/18 20:00 56 12/25/18 19:14 63 23 40 12/25/18 19:00 71 18 135/46 (75) 100 12/25/18 18:00 54 18 120/45 (70) 100 12/25/18 17:16 52 16 40 12/25/18 17:00 54 16 90/52 (65) 100 12/25/18 16:00 52 12/25/18 16:00 40 12/25/18 16:00 Mechanical Ventilator 12/25/18 16:00 98.8 48 16 118/67 (84) 100 12/25/18 15:15 60 18 40 12/25/18 15:00 63 16 127/77 (94) 100 Intake and Output 12/25/18 12/26/18 18:59 06:59 Intake Total 760 ml 1780 ml Output Total 1275 ml 780 ml Balance -515 ml 1000 ml Free Water 120 ml 50 ml IV Total 100 ml 1010 ml Tube Feeding 540 ml 720 ml Output Urine Total 1275 ml 780 ml Chest Tube Drainage Total 0 ml # Bowel Movements 3 5 Laboratory Tests 12/26/18 04:00: White Blood Count 13.9H, Red Blood Count 2.86L, Hemoglobin 8.5L, Hematocrit 26.1L, Mean Corpuscular Volume 91, Mean Corpuscular Hemoglobin 29.7, Mean Corpuscular Hemoglobin Concent 32.5, Red Cell Distribution Width 12.9, Platelet Count 272, Mean Platelet Volume 6.2L, Neutrophils (%) (Auto) 69.1, Lymphocytes ( %) (Auto) 16.8L, Monocytes (%) (Auto) 6.7, Eosinophils (%) (Auto) 6.4H, Basophils (%) (Auto) 1.0, Sodium Level 147H, Potassium Level 3.3L, Chloride Level 112H, Carbon Dioxide Level 29, Anion Gap 6, Blood Urea Nitrogen 13, Creatinine 1.0, Estimat Glomerular Filtration Rate , Glucose Level 104, Uric Acid 2.5L, Calcium Level 9.1, Phosphorus Level 2.0L, Magnesium Level 1.7L, Total Bilirubin 0.3, Aspartate Amino Transf (AST/SGOT) 12L, Alanine Aminotransferase (ALT/SGPT) 20, Alkaline Phosphatase 56, C-Reactive Protein, Quantitative 9.6H, Pro-B-Type Natriuretic Peptide 2936H, Total Protein 7.3, Albumin 2.2L, Globulin 5.1, Albumin/Globulin Ratio 0.4L 12/26/18 10:10: Vancomycin Level Trough 8.4 Height (Feet): 5 Height (Inches): 6.00 Weight (Pounds): 129 General Appearance: no apparent distress Neck: limited range of motion Cardiovascular: normal rate, bradycardia Respiratory/Chest: other - chest tube both sides Abdomen: distended Tono Case MD December 26, 2018 14:33
--- NOTE | 2018-12-26 16:00 | NUR ---
NURSE NOTES: Patient resting in bed. VSS.
--- NOTE | 2018-12-26 17:25 | General Progress Note ---
Assessment/Plan Status: unchanged Assessment/Plan: Assessment and Recs: # Anemia of chronic disease due to underlying chronic medical issues, multifactorial --> Anemia workup has been ordered, rule out gi bleed --> ferritin is 610 --> No evidence of hemolysis is noted, peripheral smear has been reviewed. --> Hgb goal >7. Transfuse prn. --> Epogen or iron at this time is not particularly indicated --> Medications have been reviewed --> evaluate with Gi team prn --> transfuse if hgb is < 7 (trend CBC daily) --> stool ob is negative --> transfused with 2 units 12/23 # Leukocytosis on admission has been 10-16k --> smear has beenr reviewed, no e/o blasts --> on antibiotics # Acute on chronic Renal failure --> per renal --> cr has improved # Acute on chronic respiratory failure s/p trach with revision --> Pneumothorax s/p chest tube # UTI --> on abx # HypoAlbuminemia # HTN # PEG with Fecal impaction # Malfunction of gastrostomy tube The timing of this note does not necessarily reflect the time of the patient was seen. Greatly appreciate consultation! Subjective Constitutional: Denies: no symptoms, chills, diaphoresis, fever, malaise, weakness, other HEENT: Denies: no symptoms, eye pain, blurred vision, tearing, double vision, ear pain, ear discharge, nose pain, nose congestion, throat pain, throat swelling, mouth pain, mouth swelling, other Cardiovascular: Denies: no symptoms, chest pain, edema, irregular heart rate, lightheadedness, palpitations, syncope, other Respiratory: Denies: no symptoms, cough, orthopnea, shortness of breath, SOB with excertion, SOB at rest, sputum, stridor, wheezing, other Neurologic/Psychiatric: Denies: no symptoms, anxiety, depressed, emotional problems, headache, numbness, paresthesia, pre-existing deficit, seizure, tingling, tremors, weakness, other Endocrine: Denies: no symptoms, excessive sweating, flushing, intolerance to cold, intolerance to heat, increased hunger, increased thirst, increased urine, unexplained weight gain, unexplained weight loss, other Hematologic/Lymphatic: Denies: no symptoms, anemia, easy bleeding, easy bruising, other Allergies: Coded Allergies: ASPIRIN (Verified Allergy, Unknown, 07/07/17) Subjective 12/26: no events, remains sedated, in the icu, on vent Objective Last 24 Hour Vital Signs Date Time Temp Pulse Resp B/P (MAP) Pulse Ox O2 Delivery O2 Flow Rate FiO2 12/26/18 17:00 63 20 126/69 (88) 100 12/26/18 16:40 52 22 40 12/26/18 16:00 98.3 62 19 120/54 (76) 100 12/26/18 16:00 Mechanical Ventilator 12/26/18 16:00 65 12/26/18 16:00 40 12/26/18 15:00 63 20 119/80 (93) 100 12/26/18 14:48 44 22 40 12/26/18 14:00 65 20 115/80 (92) 100 12/26/18 13:00 63 20 119/80 (93) 100 12/26/18 12:50 52 20 40 12/26/18 12:00 99.4 62 19 120/54 (76) 100 12/26/18 12:00 62 12/26/18 12:00 Mechanical Ventilator 12/26/18 12:00 40 12/26/18 11:00 63 20 122/95 (104) 100 12/26/18 10:50 61 20 40 12/26/18 10:00 59 18 119/41 (67) 100 12/26/18 09:00 65 16 119/47 (71) 100 12/26/18 08:41 52 20 40 12/26/18 08:00 53 12/26/18 08:00 40 12/26/18 08:00 Mechanical Ventilator 12/26/18 08:00 99.4 59 19 116/54 (74) 100 12/26/18 07:20 66 22 40 12/26/18 07:00 65 16 123/81 (95) 100 12/26/18 06:00 65 16 114/88 (97) 100 12/26/18 05:19 67 21 40 12/26/18 05:00 66 16 110/60 (77) 100 12/26/18 04:00 69 12/26/18 04:00 98.8 64 16 112/64 (80) 100 12/26/18 04:00 40 12/26/18 04:00 Mechanical Ventilator 12/26/18 03:16 62 21 40 12/26/18 03:00 54 16 104/52 (69) 100 12/26/18 02:00 52 16 108/54 (72) 100 12/26/18 01:03 66 22 40 12/26/18 01:00 50 16 110/64 (79) 100 12/26/18 00:00 40 12/26/18 00:00 49 16 119/64 (82) 100 12/26/18 00:00 Mechanical Ventilator 12/26/18 00:00 49 12/25/18 23:35 59 21 40 12/25/18 23:00 48 16 106/35 (58) 100 12/25/18 22:00 119/64 12/25/18 22:00 56 19 120/92 (101) 100 12/25/18 21:00 54 20 115/84 (94) 100 12/25/18 20:50 57 21 40 12/25/18 20:00 98.8 56 20 139/68 (91) 100 12/25/18 20:00 40 12/25/18 20:00 Mechanical Ventilator 12/25/18 20:00 56 12/25/18 19:14 63 23 40 12/25/18 19:00 71 18 135/46 (75) 100 12/25/18 18:00 54 18 120/45 (70) 100 Intake and Output 12/25/18 12/26/18 19:00 07:00 Intake Total 860 ml 1680 ml Output Total 1200 ml 780 ml Balance -340 ml 900 ml Free Water 120 ml 50 ml IV Total 200 ml 910 ml Tube Feeding 540 ml 720 ml Output Urine Total 1200 ml 780 ml Chest Tube Drainage Total 0 ml # Bowel Movements 3 5 Laboratory Tests 12/26/18 04:00: White Blood Count 13.9H, Red Blood Count 2.86L, Hemoglobin 8.5L, Hematocrit 26.1L, Mean Corpuscular Volume 91, Mean Corpuscular Hemoglobin 29.7, Mean Corpuscular Hemoglobin Concent 32.5, Red Cell Distribution Width 12.9, Platelet Count 272, Mean Platelet Volume 6.2L, Neutrophils (%) (Auto) 69.1, Lymphocytes ( %) (Auto) 16.8L, Monocytes (%) (Auto) 6.7, Eosinophils (%) (Auto) 6.4H, Basophils (%) (Auto) 1.0, Sodium Level 147H, Potassium Level 3.3L, Chloride Level 112H, Carbon Dioxide Level 29, Anion Gap 6, Blood Urea Nitrogen 13, Creatinine 1.0, Estimat Glomerular Filtration Rate , Glucose Level 104, Uric Acid 2.5L, Calcium Level 9.1, Phosphorus Level 2.0L, Magnesium Level 1.7L, Total Bilirubin 0.3, Aspartate Amino Transf (AST/SGOT) 12L, Alanine Aminotransferase (ALT/SGPT) 20, Alkaline Phosphatase 56, C-Reactive Protein, Quantitative 9.6H, Pro-B-Type Natriuretic Peptide 2936H, Total Protein 7.3, Albumin 2.2L, Globulin 5.1, Albumin/Globulin Ratio 0.4L 12/26/18 10:10: Vancomycin Level Trough 8.4 Height (Feet): 5 Height (Inches): 6.00 Weight (Pounds): 129 Objective p02 EP Interpretation: reviewed, normal General Appearance: severe distress, lethargic, obese, Stupor Head: atraumatic Eyes: bilateral eye normal inspection ENT: moist mucus membranes Neck: supple Respiratory: respiratory distress, decreased breath sounds ++ intubated Cardiovascular: tachycardia Gastrointestinal: distended - G-tube in place Genitourinary: no CVA tenderness Musculoskeletal: other - Contractures lower extremity Neurologic: other - Unable to assess due to patient poor mental status Psychiatric: other - Unable to assess patient unconscious Micha Torres MD December 26, 2018 17:25
[2018-12-26] MEDS ORDERED: Sterile Water Irrig 1000ml IRRIG ONE (17:59)
[2018-12-26] MEDS ORDERED: NS 275ml ONE (17:59)
[2018-12-26] MEDS ORDERED: Tubing IV Secondary IV ONE (17:59)
--- NOTE | 2018-12-26 19:09 | NUR ---
HAND-OFF: Report given to RONDA Haney.
--- NOTE | 2018-12-26 19:17 | NUR ---
NURSE NOTES: pt orally intubated -vent o2 sat 100 o/o no acute distress noted kee chest tube to gravity drainage reposition and suction
--- NOTE | 2018-12-26 19:33 | Infectious Diseases Prog Note ---
Assessment/Plan Assessment/Plan Assessment: Sepsis- Probable PNA SCx : PSA and H. Influenza 12/24 CXR Stable satisfactory position of endotracheal tube. Bilateral chest tubes remain in place R/o probable UTI Bacteremia : CoNS ( STAPHYLOCOCCUS AURICULARIS and Epid ) contaminant - 2d ECHO : no Veg Afebrile Leukocytosis, overall improving Hx of recurrent PNA (VAP/HAP) -10/2017 MDR PSA, H. flu -sp cx MDR ACB 07/2017, s/p Rx JAMES, improving Acute respiratory failure, failed trach and now intubated 12/21/18 Hypertension. History of seizure disorder Ventilator-dependent respiratory failure History of lower extremity DVT History of PEG and trach placement dementia quadriplegic COPD retirement resident Plan: -Continue Cefepime d# and DC empiric IV Vancomycin # /, 12/25 Sp Amikacin # 3 and Zosyn # 4 -f/u cx -Monitor CBC/CMP, temperatures -ETT care -aspiration precautions Subjective Allergies: Coded Allergies: ASPIRIN (Verified Allergy, Unknown, 07/07/17) Subjective pt in ICU Objective Vital Signs Last 24 Hour Vital Signs Date Time Temp Pulse Resp B/P (MAP) Pulse Ox O2 Delivery O2 Flow Rate FiO2 12/26/18 19:00 64 20 131/76 (94) 100 12/26/18 18:59 51 17 40 12/26/18 18:00 65 20 119/67 (84) 100 12/26/18 17:00 63 20 126/69 (88) 100 12/26/18 16:40 52 22 40 12/26/18 16:00 98.3 62 19 120/54 (76) 100 12/26/18 16:00 Mechanical Ventilator 12/26/18 16:00 65 12/26/18 16:00 40 12/26/18 15:00 63 20 119/80 (93) 100 12/26/18 14:48 44 22 40 12/26/18 14:00 65 20 115/80 (92) 100 12/26/18 13:00 63 20 119/80 (93) 100 12/26/18 12:50 52 20 40 12/26/18 12:00 99.4 62 19 120/54 (76) 100 12/26/18 12:00 62 12/26/18 12:00 Mechanical Ventilator 12/26/18 12:00 40 12/26/18 11:00 63 20 122/95 (104) 100 12/26/18 10:50 61 20 40 12/26/18 10:00 59 18 119/41 (67) 100 12/26/18 09:00 65 16 119/47 (71) 100 12/26/18 08:41 52 20 40 12/26/18 08:00 53 12/26/18 08:00 40 12/26/18 08:00 Mechanical Ventilator 12/26/18 08:00 99.4 59 19 116/54 (74) 100 12/26/18 07:20 66 22 40 12/26/18 07:00 65 16 123/81 (95) 100 12/26/18 06:00 65 16 114/88 (97) 100 12/26/18 05:19 67 21 40 12/26/18 05:00 66 16 110/60 (77) 100 12/26/18 04:00 69 12/26/18 04:00 98.8 64 16 112/64 (80) 100 12/26/18 04:00 40 12/26/18 04:00 Mechanical Ventilator 12/26/18 03:16 62 21 40 12/26/18 03:00 54 16 104/52 (69) 100 12/26/18 02:00 52 16 108/54 (72) 100 12/26/18 01:03 66 22 40 12/26/18 01:00 50 16 110/64 (79) 100 12/26/18 00:00 40 12/26/18 00:00 49 16 119/64 (82) 100 12/26/18 00:00 Mechanical Ventilator 12/26/18 00:00 49 12/25/18 23:35 59 21 40 12/25/18 23:00 48 16 106/35 (58) 100 12/25/18 22:00 119/64 12/25/18 22:00 56 19 120/92 (101) 100 12/25/18 21:00 54 20 115/84 (94) 100 12/25/18 20:50 57 21 40 12/25/18 20:00 98.8 56 20 139/68 (91) 100 12/25/18 20:00 40 12/25/18 20:00 Mechanical Ventilator 12/25/18 20:00 56 Height (Feet): 5 Height (Inches): 6.00 Weight (Pounds): 129 HEENT: anicteric Respiratory/Chest: no respiratory distress Cardiovascular: normal rate Abdomen: normal bowel sounds Laboratory Tests Test 12/26/18 04:00 12/26/18 10:10 White Blood Count 13.9 K/UL (4.8-10.8) H Red Blood Count 2.86 M/UL (4.20-5.40) L Hemoglobin 8.5 G/DL (12.0-16.0) L Hematocrit 26.1 % (37.0-47.0) L Mean Corpuscular Volume 91 FL (80-99) Mean Corpuscular Hemoglobin 29.7 PG (27.0-31.0) Mean Corpuscular Hemoglobin Concent 32.5 G/DL (32.0-36.0) Red Cell Distribution Width 12.9 % (11.6-14.8) Platelet Count 272 K/UL (150-450) Mean Platelet Volume 6.2 FL (6.5-10.1) L Neutrophils (%) (Auto) 69.1 % (45.0-75.0) Lymphocytes (%) (Auto) 16.8 % (20.0-45.0) L Monocytes (%) (Auto) 6.7 % (1.0-10.0) Eosinophils (%) (Auto) 6.4 % (0.0-3.0) H Basophils (%) (Auto) 1.0 % (0.0-2.0) Sodium Level 147 MMOL/L (136-145) H Potassium Level 3.3 MMOL/L (3.5-5.1) L Chloride Level 112 MMOL/L (98-107) H Carbon Dioxide Level 29 MMOL/L (21-32) Anion Gap 6 mmol/L (5-15) Blood Urea Nitrogen 13 mg/dL (7-18) Creatinine 1.0 MG/DL (0.55-1.30) Estimat Glomerular Filtration Rate mL/min (>60) Glucose Level 104 MG/DL (74-106) Uric Acid 2.5 MG/DL (2.6-7.2) L Calcium Level 9.1 MG/DL (8.5-10.1) Phosphorus Level 2.0 MG/DL (2.5-4.9) L Magnesium Level 1.7 MG/DL (1.8-2.4) L Total Bilirubin 0.3 MG/DL (0.2-1.0) Aspartate Amino Transf (AST/SGOT) 12 U/L (15-37) L Alanine Aminotransferase (ALT/SGPT) 20 U/L (12-78) Alkaline Phosphatase 56 U/L (46-116) C-Reactive Protein, Quantitative 9.6 mg/dL (0.00-0.90) H Pro-B-Type Natriuretic Peptide 2936 pg/mL (0-125) H Total Protein 7.3 G/DL (6.4-8.2) Albumin 2.2 G/DL (3.4-5.0) L Globulin 5.1 g/dL Albumin/Globulin Ratio 0.4 (1.0-2.7) L Vancomycin Level Trough 8.4 ug/mL (5.0-12.0) Current Medications Medications (Trade) Dose Ordered Sig/Torsten Route PRN Reason Start Time Stop Time Status Last Admin Dose Admin Acetaminophen (Tylenol) 650 mg Q4H PRN GT Mild Pain/Temp > 100.5 12/23/18 13:15 01/22/19 13:14 12/24/18 20:12 Albuterol/ Ipratropium (Albuterol/ Ipratropium) 3 ml Q4H PRN HHN Shortness of Breath 12/21/18 20:45 12/26/18 20:44 Amiodarone HCl (Cordarone) 100 mg DAILY GT 12/25/18 09:00 01/21/19 08:59 12/26/18 08:56 Ascorbic Acid (Vitamin C) 250 mg DAILY GT 12/24/18 09:00 01/22/19 08:59 12/26/18 08:57 Cefepime HCl 2 gm/ Dextrose 55 ml @ 110 mls/hr Q24H IVPB 12/27/18 04:00 01/03/19 03:59 Chlorhexidine Gluconate (Mariah-Hex 2%) 1 applic DAILY@2000 TOPIC 12/25/18 20:00 01/24/19 19:59 12/25/18 19:53 Docusate Sodium (Colace) 100 mg TWICE A DAY ORAL 12/24/18 09:00 01/23/19 08:59 12/26/18 18:00 Heparin Sodium (Porcine) (Heparin 5000 units/ml) 5,000 units EVERY 12 HOURS SUBQ 12/21/18 21:00 01/20/19 20:59 12/26/18 09:06 Heparin Sodium/ Sodium Chloride (Heparin 1000 units/500ml Premix) 1,000 unit ONCE PRN IV PICC LINE 12/25/18 09:15 12/27/18 18:00 Lactulose (Cephulac) 20 gm THREE TIMES A DAY ORAL 12/24/18 09:00 01/23/19 08:59 12/26/18 18:00 Lorazepam (Ativan 2mg/ml 1ml) 2 mg Q2H PRN IV For Anxiety 12/21/18 20:45 12/28/18 20:44 12/24/18 20:12 Morphine Sulfate (Morphine Sulfate) 4 mg Q4H PRN IVP Severe Pain (Pain Scale 7-10) 12/21/18 20:45 12/28/18 20:44 12/23/18 20:48 Norepinephrine Bitartrate 4 mg/ Dextrose 254 ml @ 0 mls/hr Q24H IV 12/21/18 22:00 01/20/19 21:59 Ondansetron HCl (Zofran) 4 mg Q6H PRN IVP Nausea & Vomiting 12/21/18 20:45 01/20/19 20:44 Pantoprazole (Protonix) 40 mg Q12HR IV 12/23/18 21:00 01/21/19 08:59 12/26/18 08:57 Polyethylene Glycol (Miralax) 17 gm DAILYPRN PRN GT Constipation 12/23/18 13:30 01/20/19 20:44 Vancomycin HCl (Vanco rx to dose) 1 ea DAILY PRN MISC PER RX 12/21/18 21:00 01/20/19 20:59 Vancomycin HCl 500 mg/Dextrose 110 ml @ 110 mls/hr Q12HR@0000,1200 IVPB 12/26/18 12:00 12/31/18 11:59 12/26/18 12:59 Ricky Slater MD December 26, 2018 19:33
[2018-12-26] MEDS: Dyna-Hex 2% Top Sol 2oz TOPIC SCH (20:43)
--- NOTE | 2018-12-26 22:00 | NUR ---
NURSE NOTES: had incont of bm kevin lig complete bed bath done left femoral tlc dressing change reposition and suction iv site infusing well
--- NOTE | 2018-12-26 22:41 | Surgery Progress Note ---
Surgery Progress Note Subjective Additional Comments doing well on water seal. family at bedside. exam improved. labs noted. cxr improved Objective Last 24 Hour Vital Signs Date Time Temp Pulse Resp B/P (MAP) Pulse Ox O2 Delivery O2 Flow Rate FiO2 12/26/18 21:06 98.5 62 20 132/85 (101) 100 12/26/18 21:04 48 17 40 12/26/18 21:00 50 20 124/44 (70) 100 12/26/18 20:53 132/85 12/26/18 20:00 62 12/26/18 20:00 Mechanical Ventilator 12/26/18 20:00 40 12/26/18 20:00 98.5 62 20 132/85 (101) 100 12/26/18 19:00 64 20 131/76 (94) 100 12/26/18 18:59 51 17 40 12/26/18 18:00 65 20 119/67 (84) 100 12/26/18 17:00 63 20 126/69 (88) 100 12/26/18 16:40 52 22 40 12/26/18 16:00 98.3 62 19 120/54 (76) 100 12/26/18 16:00 Mechanical Ventilator 12/26/18 16:00 65 12/26/18 16:00 40 12/26/18 15:00 63 20 119/80 (93) 100 12/26/18 14:48 44 22 40 12/26/18 14:00 65 20 115/80 (92) 100 12/26/18 13:00 63 20 119/80 (93) 100 12/26/18 12:50 52 20 40 12/26/18 12:00 99.4 62 19 120/54 (76) 100 12/26/18 12:00 62 12/26/18 12:00 Mechanical Ventilator 12/26/18 12:00 40 12/26/18 11:00 63 20 122/95 (104) 100 12/26/18 10:50 61 20 40 12/26/18 10:00 59 18 119/41 (67) 100 12/26/18 09:00 65 16 119/47 (71) 100 12/26/18 08:41 52 20 40 12/26/18 08:00 53 12/26/18 08:00 40 12/26/18 08:00 Mechanical Ventilator 12/26/18 08:00 99.4 59 19 116/54 (74) 100 12/26/18 07:20 66 22 40 12/26/18 07:00 65 16 123/81 (95) 100 12/26/18 06:00 65 16 114/88 (97) 100 12/26/18 05:19 67 21 40 12/26/18 05:00 66 16 110/60 (77) 100 12/26/18 04:00 69 12/26/18 04:00 98.8 64 16 112/64 (80) 100 12/26/18 04:00 40 12/26/18 04:00 Mechanical Ventilator 12/26/18 03:16 62 21 40 12/26/18 03:00 54 16 104/52 (69) 100 12/26/18 02:00 52 16 108/54 (72) 100 12/26/18 01:03 66 22 40 12/26/18 01:00 50 16 110/64 (79) 100 12/26/18 00:00 40 12/26/18 00:00 49 16 119/64 (82) 100 12/26/18 00:00 Mechanical Ventilator 12/26/18 00:00 49 12/25/18 23:35 59 21 40 12/25/18 23:00 48 16 106/35 (58) 100 I&O Intake and Output 12/25/18 12/26/18 19:00 07:00 Intake Total 860 ml 1680 ml Output Total 1200 ml 780 ml Balance -340 ml 900 ml Free Water 120 ml 50 ml IV Total 200 ml 910 ml Tube Feeding 540 ml 720 ml Output Urine Total 1200 ml 780 ml Chest Tube Drainage Total 0 ml # Bowel Movements 3 5 Dressing: dry Wound: clean Drains: other Cardiovascular: RSR Respiratory: decreased breath sounds Abdomen: soft, present bowel sounds, non-distended Extremities: no cyanosis Laboratory Tests Test 12/26/18 04:00 12/26/18 10:10 White Blood Count 13.9 K/UL (4.8-10.8) H Red Blood Count 2.86 M/UL (4.20-5.40) L Hemoglobin 8.5 G/DL (12.0-16.0) L Hematocrit 26.1 % (37.0-47.0) L Mean Corpuscular Volume 91 FL (80-99) Mean Corpuscular Hemoglobin 29.7 PG (27.0-31.0) Mean Corpuscular Hemoglobin Concent 32.5 G/DL (32.0-36.0) Red Cell Distribution Width 12.9 % (11.6-14.8) Platelet Count 272 K/UL (150-450) Mean Platelet Volume 6.2 FL (6.5-10.1) L Neutrophils (%) (Auto) 69.1 % (45.0-75.0) Lymphocytes (%) (Auto) 16.8 % (20.0-45.0) L Monocytes (%) (Auto) 6.7 % (1.0-10.0) Eosinophils (%) (Auto) 6.4 % (0.0-3.0) H Basophils (%) (Auto) 1.0 % (0.0-2.0) Sodium Level 147 MMOL/L (136-145) H Potassium Level 3.3 MMOL/L (3.5-5.1) L Chloride Level 112 MMOL/L (98-107) H Carbon Dioxide Level 29 MMOL/L (21-32) Anion Gap 6 mmol/L (5-15) Blood Urea Nitrogen 13 mg/dL (7-18) Creatinine 1.0 MG/DL (0.55-1.30) Estimat Glomerular Filtration Rate mL/min (>60) Glucose Level 104 MG/DL (74-106) Uric Acid 2.5 MG/DL (2.6-7.2) L Calcium Level 9.1 MG/DL (8.5-10.1) Phosphorus Level 2.0 MG/DL (2.5-4.9) L Magnesium Level 1.7 MG/DL (1.8-2.4) L Total Bilirubin 0.3 MG/DL (0.2-1.0) Aspartate Amino Transf (AST/SGOT) 12 U/L (15-37) L Alanine Aminotransferase (ALT/SGPT) 20 U/L (12-78) Alkaline Phosphatase 56 U/L (46-116) C-Reactive Protein, Quantitative 9.6 mg/dL (0.00-0.90) H Pro-B-Type Natriuretic Peptide 2936 pg/mL (0-125) H Total Protein 7.3 G/DL (6.4-8.2) Albumin 2.2 G/DL (3.4-5.0) L Globulin 5.1 g/dL Albumin/Globulin Ratio 0.4 (1.0-2.7) L Vancomycin Level Trough 8.4 ug/mL (5.0-12.0) Plan Problems: (1) Pneumomediastinum (2) Hypoxia (3) Pneumonia (4) Pneumothorax Assessment & Plan: bilateral chest tubes placed prior small air leak noted - resolved on suction CXR with resolved ptx. lots of subcutaneous air. - improving cont chest tubes water seal AM CXR (5) Hypernatremia (6) Hypotension (7) Anemia (8) Seizure disorder (9) Septic shock Assessment & Plan: In ICU intubated on vent CXR noted labs noted cont IV ABx cont vent chest tubes critically ill prognosis guarded (10) HTN (hypertension) (11) Cardiomyopathy (12) Sepsis (13) Acute and chronic respiratory failure (14) Tracheostomy care Assessment & Plan: will plan for trach replacement in OR as she improves (15) Bowel obstruction (16) Feeding by G-tube Assessment & Plan: DAILY ESTIMATED NEEDS: Needs based on Critical Care, wound 63kg 22-28 kcals/kg [id number] total kcals 1.25-2 g protein/kg 78-126 g total protein 25-30 mL/kg 5402-9914 total fluid mLs NUTRITION DIAGNOSIS: * Swallowing difficulty R/T respiratory status, dysphagia as evidenced by pt is trach/vent + PEG dep, s/p respiratory distress, currently orally intubated, NPO. * Increased kcal/prot needs R/T wound healing as evidenced by pt admitted w/ BL malleolus wounds, pending eval. CURRENT TF:NPO ENTERAL NUTRITION RECOMMENDATIONS: Glucerna 1.2 @ 60ml/hr x 22 hrs + Prosource 1pkt daily to provide 1320ml, 1584kcal, 79g + 11g prot, 1065ml free water - Once medically appropriate, initiate TF on Glucerna 1.2 @ 20ml/hr x 6 hrs. - Advance 10ml q 4-6 hrs as tolerated to goal rate - HOB >30 degrees/ water flushes per MD - Add Prosource 1pkt daily to better meet protein needs. - Hold 1 hour before and after Synthroid med. ADDITIONAL RECOMMENDATIONS: 1) Calibrated bedscale wts 2) Monitor lytes, replete as needed 3) Monitor BGs closely, need for hypoglycemic agents (BG 245 upon adm, now improved) 4) F/up w/ wound eval -Rec Tommie 1pkt BID and Vit C 250mg QD for wound healing (17) Malfunction of gastrostomy tube (18) Chronic respiratory failure (19) Chronic vegetative state (20) Nosocomial pneumonia (21) Fecal impaction (22) ATN (acute tubular necrosis) (23) Ileus (24) Acute on chronic renal failure (25) UTI (urinary tract infection) Livan Dean December 26, 2018 22:41
[2018-12-27] VITALS (24 sets, daily range): BP systolic 68–144; BP diastolic 30–92
--- NOTE | 2018-12-27 | NUR ---
NURSE NOTES: had incont margarito lig stool 3x clean and LT TLC FEMORAL DRESSING CHANGE 3X RECTAL TUBE INSERTED PER DR HUMPHRIES REPOSITION AND SUCTION
--- NOTE | 2018-12-27 01:08 | Cardiology Report ---
APPROVED REPORT EKG Measurement Heart [id number] Sinus tachycardia Possible Inferior infarct, age undetermined Abnormal ECG
--- NOTE | 2018-12-27 02:00 | NUR ---
NURSE NOTES: reposition and suction condition un change
[2018-12-27] MEDS: Cefepime HCl 2 GM in D5W 55 ML IVPB SCH (04:00)
--- NOTE | 2018-12-27 04:00 | NUR ---
NURSE NOTES: COMPLETE BED BATH ORAL CARE DONE SHELLEY CARE AND BACK CARE DONE
[2018-12-27 04:55] LABS: BASOPHILS % (AUTO) 0.9 % (0.0-2.0); HEMATOCRIT 28.3 % (37.0-47.0); HEMOGLOBIN 9.3 G/DL (12.0-16.0); LYMPHOCYTES % (AUTO) 14.3 % (20.0-45.0); MEAN CORPUSCULAR VOLUME 91 FL (80-99); MONOCYTES % (AUTO) 4.8 % (1.0-10.0); PLATELET COUNT 292 K/UL (150-450); RED BLOOD COUNT 3.11 M/UL (4.20-5.40); RED CELL DISTRIBUTION WIDTH 13.2 % (11.6-14.8); WHITE BLOOD COUNT 14.2 K/UL (4.8-10.8)
[2018-12-27 05:08] LABS: INR 1.2 (0.9-1.1)
[2018-12-27 05:27] LABS: ALANINE AMINOTRANSFERASE 20 U/L (12-78); ALBUMIN 2.2 G/DL (3.4-5.0); ALBUMIN/GLOBULIN RATIO 0.4 (1.0-2.7); ALKALINE PHOSPHATASE 67 U/L (46-116); ANION GAP 7 mmol/L (5-15); ASPARTATE AMINO TRANSFERASE 12 U/L (15-37); BILIRUBIN,TOTAL 0.2 MG/DL (0.2-1.0); BLOOD UREA NITROGEN 13 mg/dL (7-18); CALCIUM 9.2 MG/DL (8.5-10.1); CARBON DIOXIDE 28 MMOL/L (21-32); CHLORIDE 112 MMOL/L (98-107); CREATININE 0.9 MG/DL (0.55-1.30); POTASSIUM 3.8 MMOL/L (3.5-5.1); SODIUM 147 MMOL/L (136-145)
[2018-12-27 05:31] LABS: PHOSPHORUS 2.8 MG/DL (2.5-4.9)
--- NOTE | 2018-12-27 07:24 | NUR ---
HAND-OFF: Report given to .heather rn using sbar
--- NOTE | 2018-12-27 08:00 | NUR ---
NURSE NOTES: Received patient opens eyes, does not follow commands. SR-SB on engine monitor. Patient is intubated 7.0/24 cm navid AC 16 VT 500 FiO2 40% Peep of 5. Lung sounds diminished bilaterally. G tube - glucerna 1.2 at 60 cc/hr. rectal tube intact. Diarrhea. brown. Patient has L fem tlc. TKO. will continue plan of care. VSS. No distress noted at this time.
[2018-12-27] MEDS: Docusate 100mg cap ORAL SCH ×2 (08:13→17:26)
[2018-12-27] MEDS: Amiodarone 200mg tab GT SCH (08:13)
[2018-12-27] MEDS: Lactulose 20gm/30ml UDC ORAL SCH ×3 (08:13→17:26)
--- NOTE | 2018-12-27 08:17 | Cardiology Report ---
APPROVED REPORT EXAM: Two-dimensional and M-mode echocardiogram with Doppler and color Doppler. INDICATION LV function M-Mode DIMENSIONS IVSd0.9 (0.7-1.1cm)Left Atrium (MM)1.4 (1.6-4.0cm) LVDd4.1 (3.5-5.6cm)Aortic Root2.3 (2.0-3.7cm) PWd1.3 (0.7-1.1cm)Aortic Cusp Exc.1.5 (1.5-2.0cm) LVDs2.4 (2.5-4.0cm) PWs1.6 cm Other Information Technically limited study due to poor acoustical windows. Normal left ventricular chamber size, systolic function and wall motion to extent visualized. Left ventricular ejection fraction grossly estimated to be 60 %. Study quality precludes accurate assessment of regional wall motion. Mild left ventricular hypertrophy by 2-D. Anterior Echo-free space, may be due to pericardial fat or effusion. All other cardiac chamber sizes are within normal limits. Focal aortic valve sclerosis with adequate cusp excursion. Thickened mitral valve leaflets with normal excursion. Mitral annulus and aortic root calcification. Pulmonic valve not well visualized. Normal tricuspid valve structure. IVC at normal size with physiologic collapse. A color flow and spectral Doppler study was performed and revealed: Trace aortic regurgitation. Trace mitral regurgitation. Mitral diastolic velocities suggest reduced left ventricular relaxation c/w mild LV diastolic dysfunction (Grade I). Trace tricuspid regurgitation. Tricuspid systolic velocities suggests peak right ventricular systolic pressure of 15 mmHg.
[2018-12-27] MEDS: Ascorbic Acid 500mg tab GT SCH (08:19)
[2018-12-27] MEDS: Pantoprazole Inj IV SCH ×2 (08:19→21:10)
[2018-12-27] MEDS: Heparin 5000 units/ml inj SUBQ SCH ×2 (08:20→21:00)
--- NOTE | 2018-12-27 10:00 | NUR ---
NURSE NOTES: VSS. Turned and repositioned. Patient stable at this time. No changes in patient condition. Will continue to monitor patient.
--- NOTE | 2018-12-27 10:17 | Pulmonolgy Critical Care Note ---
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, consultants, 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 - Objective Last 24 Hour Vital Signs Date Time Temp Pulse Resp B/P (MAP) Pulse Ox O2 Delivery O2 Flow Rate FiO2 12/27/18 08:00 Mechanical Ventilator 12/27/18 07:00 59 18 124/48 (73) 100 12/27/18 06:57 56 16 40 12/27/18 06:00 59 18 115/68 (84) 100 12/27/18 05:28 61 19 40 12/27/18 05:00 63 19 118/92 (101) 100 12/27/18 04:00 40 12/27/18 04:00 98.5 59 18 128/72 (90) 100 12/27/18 04:00 60 12/27/18 04:00 Mechanical Ventilator 12/27/18 03:11 64 18 40 12/27/18 03:00 62 19 133/68 (89) 100 12/27/18 02:00 60 22 124/54 (77) 100 12/27/18 01:32 47 16 40 12/27/18 01:00 58 22 131/89 (103) 100 12/27/18 00:00 Mechanical Ventilator 12/27/18 00:00 98.5 59 22 144/53 (83) 100 12/26/18 23:22 57 18 40 12/26/18 23:00 58 22 136/62 (86) 100 12/26/18 22:00 62 20 126/65 (85) 100 12/26/18 21:06 98.5 62 20 132/85 (101) 100 12/26/18 21:04 48 17 40 12/26/18 21:00 50 20 124/44 (70) 100 12/26/18 20:53 132/85 12/26/18 20:00 62 12/26/18 20:00 Mechanical Ventilator 12/26/18 20:00 40 12/26/18 20:00 98.5 62 20 132/85 (101) 100 12/26/18 19:00 64 20 131/76 (94) 100 12/26/18 18:59 51 17 40 12/26/18 18:00 65 20 119/67 (84) 100 12/26/18 17:00 63 20 126/69 (88) 100 12/26/18 16:40 52 22 40 12/26/18 16:00 98.3 62 19 120/54 (76) 100 12/26/18 16:00 Mechanical Ventilator 12/26/18 16:00 65 12/26/18 16:00 40 12/26/18 15:00 63 20 119/80 (93) 100 12/26/18 14:48 44 22 40 12/26/18 14:00 65 20 115/80 (92) 100 12/26/18 13:00 63 20 119/80 (93) 100 12/26/18 12:50 52 20 40 12/26/18 12:00 99.4 62 19 120/54 (76) 100 12/26/18 12:00 62 12/26/18 12:00 Mechanical Ventilator 12/26/18 12:00 40 12/26/18 11:00 63 20 122/95 (104) 100 12/26/18 10:50 61 20 40 Status: awake Condition: critical HEENT: atraumatic, normocephalic Neck: full ROM Lungs: chest wall tender, rales, rhonchi Heart: HR/BP stable Abdomen: soft, non-tender Extremities: no C/C/E, edema Critical Care - Subjective ROS Limited/Unobtainable: Yes Condition: critical EKG Rhythm: Sinus Rhythm FI02: 40 Vent Support Breath Rate: 16 Vent Support Mode: AC Vent Tidal Volume: 500 Sputum Amount: Small PEEP: 5.0 PIP: 28 Tube Feeding Amount: 60 I&O: Intake and Output 12/26/18 12/27/18 19:00 07:00 Intake Total 780 ml 875 ml Output Total 865 ml 680 ml Balance -85 ml 195 ml Free Water 60 ml 100 ml IV Total 55 ml Tube Feeding 720 ml 720 ml Output Urine Total 865 ml 560 ml Stool Total 60 ml Chest Tube Drainage Total 60 ml # Bowel Movements 5 CXR: pneumothorax resolved ET-Tube: 7.0 ET Position: 24 Labs: Laboratory Tests Test 12/27/18 04:30 White Blood Count 14.2 K/UL (4.8-10.8) H Red Blood Count 3.11 M/UL (4.20-5.40) L Hemoglobin 9.3 G/DL (12.0-16.0) L Hematocrit 28.3 % (37.0-47.0) L Mean Corpuscular Volume 91 FL (80-99) Mean Corpuscular Hemoglobin 29.9 PG (27.0-31.0) Mean Corpuscular Hemoglobin Concent 32.9 G/DL (32.0-36.0) Red Cell Distribution Width 13.2 % (11.6-14.8) Platelet Count 292 K/UL (150-450) Mean Platelet Volume 6.2 FL (6.5-10.1) L Neutrophils (%) (Auto) 74.0 % (45.0-75.0) Lymphocytes (%) (Auto) 14.3 % (20.0-45.0) L Monocytes (%) (Auto) 4.8 % (1.0-10.0) Eosinophils (%) (Auto) 6.0 % (0.0-3.0) H Basophils (%) (Auto) 0.9 % (0.0-2.0) Prothrombin Time 12.3 SEC (9.30-11.50) H Prothromb Time International Ratio 1.2 (0.9-1.1) H Activated Partial Thromboplast Time 22 SEC (23-33) L Sodium Level 147 MMOL/L (136-145) H Potassium Level 3.8 MMOL/L (3.5-5.1) Chloride Level 112 MMOL/L (98-107) H Carbon Dioxide Level 28 MMOL/L (21-32) Anion Gap 7 mmol/L (5-15) Blood Urea Nitrogen 13 mg/dL (7-18) Creatinine 0.9 MG/DL (0.55-1.30) Estimat Glomerular Filtration Rate mL/min (>60) Glucose Level 113 MG/DL (74-106) H Calcium Level 9.2 MG/DL (8.5-10.1) Phosphorus Level 2.8 MG/DL (2.5-4.9) Magnesium Level 1.9 MG/DL (1.8-2.4) Total Bilirubin 0.2 MG/DL (0.2-1.0) Aspartate Amino Transf (AST/SGOT) 12 U/L (15-37) L Alanine Aminotransferase (ALT/SGPT) 20 U/L (12-78) Alkaline Phosphatase 67 U/L (46-116) Total Protein 7.7 G/DL (6.4-8.2) Albumin 2.2 G/DL (3.4-5.0) L Globulin 5.5 g/dL Albumin/Globulin Ratio 0.4 (1.0-2.7) L Sue Yu MD December 27, 2018 10:16
--- NOTE | 2018-12-27 10:32 | General Progress Note ---
Assessment/Plan Problem List: (1) Ileus ICD Codes: K56.7 - Ileus, unspecified SNOMED: 138272136 (2) Fecal impaction ICD Codes: K56.41 - Fecal impaction SNOMED: 28711036 (3) Feeding by G-tube ICD Codes: Z93.1 - Gastrostomy status SNOMED: 991772752, 405710685 (4) Anemia ICD Codes: D64.9 - Anemia, unspecified SNOMED: 950769043 (5) HTN (hypertension) ICD Codes: I10 - Essential (primary) hypertension SNOMED: 63697117 Status: unchanged Assessment/Plan: bowel regimen neg stool ob GI procedures on hold for now GTF GT care Subjective ROS Limited/Unobtainable: No Allergies: Coded Allergies: ASPIRIN (Verified Allergy, Unknown, 07/07/17) Objective Last 24 Hour Vital Signs Date Time Temp Pulse Resp B/P (MAP) Pulse Ox O2 Delivery O2 Flow Rate FiO2 12/27/18 10:00 55 16 91/39 (56) 100 12/27/18 09:10 50 16 40 12/27/18 09:00 55 17 110/30 (56) 100 12/27/18 08:00 Mechanical Ventilator 12/27/18 08:00 98.2 60 18 68/51 (57) 100 12/27/18 07:00 59 18 124/48 (73) 100 12/27/18 06:57 56 16 40 12/27/18 06:00 59 18 115/68 (84) 100 12/27/18 05:28 61 19 40 12/27/18 05:00 63 19 118/92 (101) 100 12/27/18 04:00 40 12/27/18 04:00 98.5 59 18 128/72 (90) 100 12/27/18 04:00 60 12/27/18 04:00 Mechanical Ventilator 12/27/18 03:11 64 18 40 12/27/18 03:00 62 19 133/68 (89) 100 12/27/18 02:00 60 22 124/54 (77) 100 12/27/18 01:32 47 16 40 12/27/18 01:00 58 22 131/89 (103) 100 12/27/18 00:00 Mechanical Ventilator 12/27/18 00:00 98.5 59 22 144/53 (83) 100 12/26/18 23:22 57 18 40 12/26/18 23:00 58 22 136/62 (86) 100 12/26/18 22:00 62 20 126/65 (85) 100 12/26/18 21:06 98.5 62 20 132/85 (101) 100 12/26/18 21:04 48 17 40 12/26/18 21:00 50 20 124/44 (70) 100 12/26/18 20:53 132/85 12/26/18 20:00 62 12/26/18 20:00 Mechanical Ventilator 12/26/18 20:00 40 12/26/18 20:00 98.5 62 20 132/85 (101) 100 12/26/18 19:00 64 20 131/76 (94) 100 12/26/18 18:59 51 17 40 12/26/18 18:00 65 20 119/67 (84) 100 12/26/18 17:00 63 20 126/69 (88) 100 12/26/18 16:40 52 22 40 12/26/18 16:00 98.3 62 19 120/54 (76) 100 12/26/18 16:00 Mechanical Ventilator 12/26/18 16:00 65 12/26/18 16:00 40 12/26/18 15:00 63 20 119/80 (93) 100 12/26/18 14:48 44 22 40 12/26/18 14:00 65 20 115/80 (92) 100 12/26/18 13:00 63 20 119/80 (93) 100 12/26/18 12:50 52 20 40 12/26/18 12:00 99.4 62 19 120/54 (76) 100 12/26/18 12:00 62 12/26/18 12:00 Mechanical Ventilator 12/26/18 12:00 40 12/26/18 11:00 63 20 122/95 (104) 100 12/26/18 10:50 61 20 40 Intake and Output 12/26/18 12/27/18 19:00 07:00 Intake Total 780 ml 875 ml Output Total 865 ml 680 ml Balance -85 ml 195 ml Free Water 60 ml 100 ml IV Total 55 ml Tube Feeding 720 ml 720 ml Output Urine Total 865 ml 560 ml Stool Total 60 ml Chest Tube Drainage Total 60 ml # Bowel Movements 5 Laboratory Tests 5/2/19 04:30: White Blood Count 14.2H, Red Blood Count 3.11L, Hemoglobin 9.3L, Hematocrit 28.3L, Mean Corpuscular Volume 91, Mean Corpuscular Hemoglobin 29.9, Mean Corpuscular Hemoglobin Concent 32.9, Red Cell Distribution Width 13.2, Platelet Count 292, Mean Platelet Volume 6.2L, Neutrophils (%) (Auto) 74.0, Lymphocytes ( %) (Auto) 14.3L, Monocytes (%) (Auto) 4.8, Eosinophils (%) (Auto) 6.0H, Basophils (%) (Auto) 0.9, Prothrombin Time 12.3H, Prothromb Time International Ratio 1.2H, Activated Partial Thromboplast Time 22L, Sodium Level 147H, Potassium Level 3.8, Chloride Level 112H, Carbon Dioxide Level 28, Anion Gap 7, Blood Urea Nitrogen 13, Creatinine 0.9, Estimat Glomerular Filtration Rate , Glucose Level 113H, Calcium Level 9.2, Phosphorus Level 2.8, Magnesium Level 1.9 , Total Bilirubin 0.2, Aspartate Amino Transf (AST/SGOT) 12L, Alanine Aminotransferase (ALT/SGPT) 20, Alkaline Phosphatase 67, Total Protein 7.7, Albumin 2.2L, Globulin 5.5, Albumin/Globulin Ratio 0.4L Height (Feet): 5 Height (Inches): 6.00 Weight (Pounds): 134 General Appearance: no apparent distress EENT: normal ENT inspection Neck: supple Cardiovascular: normal rate Respiratory/Chest: decreased breath sounds Abdomen: normal bowel sounds, non tender, soft Extremities: non-tender Jad Skinner MD December 27, 2018 10:32
--- NOTE | 2018-12-27 11:37 | Diagnostic Imaging Report ---
Indication: Dyspnea Comparison: 12/26/2018 A single view chest radiograph was obtained. Findings: Interstitial opacities noted bilaterally. Trace subcutaneous air noted. Cardiomegaly is stable. Bilateral chest tubes noted as well as endotracheal tube unchanged. No pneumothorax identified. IMPRESSION: No change from the previous day
--- NOTE | 2018-12-27 12:00 | NUR ---
NURSE NOTES: VSS. No new orders at this time. Will continue plan of care.
--- NOTE | 2018-12-27 13:22 | Nephrology Progress Note ---
Assessment/Plan Problem List: (1) Acute on chronic renal failure (2) Acute and chronic respiratory failure (3) Pneumothorax (4) Cardiomyopathy Assessment acute on chronic Renal failure Acute on chronic respiratory failure Pneumothorax Anemia UTI HypoAlbuminemia HTN PEG Sz Disorder Cardiomyopathy Full code status ! . Plan D5W one liter K Phos lower amiodarone dose stop Hydrate- stop synthroid- very low TSH Monitor renal parameters Anemia bryant antibiotics avoid nephrotoxics optimize cardiac and pulm status per orders Subjective ROS Limited/Unobtainable: Yes Objective Objective Last 24 Hour Vital Signs Date Time Temp Pulse Resp B/P (MAP) Pulse Ox O2 Delivery O2 Flow Rate FiO2 12/27/18 12:00 40 12/27/18 12:00 Mechanical Ventilator 12/27/18 11:00 60 16 98/48 (65) 100 12/27/18 10:56 50 16 40 12/27/18 10:00 55 16 91/39 (56) 100 12/27/18 09:10 50 16 40 12/27/18 09:00 55 17 110/30 (56) 100 12/27/18 08:00 40 12/27/18 08:00 60 12/27/18 08:00 Mechanical Ventilator 12/27/18 08:00 98.2 60 18 68/51 (57) 100 12/27/18 07:00 59 18 124/48 (73) 100 12/27/18 06:57 56 16 40 12/27/18 06:00 59 18 115/68 (84) 100 12/27/18 05:28 61 19 40 12/27/18 05:00 63 19 118/92 (101) 100 12/27/18 04:00 40 12/27/18 04:00 98.5 59 18 128/72 (90) 100 12/27/18 04:00 60 12/27/18 04:00 Mechanical Ventilator 12/27/18 03:11 64 18 40 12/27/18 03:00 62 19 133/68 (89) 100 12/27/18 02:00 60 22 124/54 (77) 100 12/27/18 01:32 47 16 40 12/27/18 01:00 58 22 131/89 (103) 100 12/27/18 00:00 Mechanical Ventilator 12/27/18 00:00 98.5 59 22 144/53 (83) 100 12/26/18 23:22 57 18 40 12/26/18 23:00 58 22 136/62 (86) 100 12/26/18 22:00 62 20 126/65 (85) 100 12/26/18 21:06 98.5 62 20 132/85 (101) 100 12/26/18 21:04 48 17 40 12/26/18 21:00 50 20 124/44 (70) 100 12/26/18 20:53 132/85 12/26/18 20:00 62 12/26/18 20:00 Mechanical Ventilator 12/26/18 20:00 40 12/26/18 20:00 98.5 62 20 132/85 (101) 100 12/26/18 19:00 64 20 131/76 (94) 100 12/26/18 18:59 51 17 40 12/26/18 18:00 65 20 119/67 (84) 100 12/26/18 17:00 63 20 126/69 (88) 100 12/26/18 16:40 52 22 40 12/26/18 16:00 98.3 62 19 120/54 (76) 100 12/26/18 16:00 Mechanical Ventilator 12/26/18 16:00 65 12/26/18 16:00 40 12/26/18 15:00 63 20 119/80 (93) 100 12/26/18 14:48 44 22 40 12/26/18 14:00 65 20 115/80 (92) 100 Intake and Output 12/26/18 12/27/18 19:00 07:00 Intake Total 780 ml 875 ml Output Total 865 ml 680 ml Balance -85 ml 195 ml Free Water 60 ml 100 ml IV Total 55 ml Tube Feeding 720 ml 720 ml Output Urine Total 865 ml 560 ml Stool Total 60 ml Chest Tube Drainage Total 60 ml # Bowel Movements 5 Laboratory Tests 12/27/18 04:30: White Blood Count 14.2H, Red Blood Count 3.11L, Hemoglobin 9.3L, Hematocrit 28.3L, Mean Corpuscular Volume 91, Mean Corpuscular Hemoglobin 29.9, Mean Corpuscular Hemoglobin Concent 32.9, Red Cell Distribution Width 13.2, Platelet Count 292, Mean Platelet Volume 6.2L, Neutrophils (%) (Auto) 74.0, Lymphocytes ( %) (Auto) 14.3L, Monocytes (%) (Auto) 4.8, Eosinophils (%) (Auto) 6.0H, Basophils (%) (Auto) 0.9, Prothrombin Time 12.3H, Prothromb Time International Ratio 1.2H, Activated Partial Thromboplast Time 22L, Sodium Level 147H, Potassium Level 3.8, Chloride Level 112H, Carbon Dioxide Level 28, Anion Gap 7, Blood Urea Nitrogen 13, Creatinine 0.9, Estimat Glomerular Filtration Rate , Glucose Level 113H, Calcium Level 9.2, Phosphorus Level 2.8, Magnesium Level 1.9 , Total Bilirubin 0.2, Aspartate Amino Transf (AST/SGOT) 12L, Alanine Aminotransferase (ALT/SGPT) 20, Alkaline Phosphatase 67, Total Protein 7.7, Albumin 2.2L, Globulin 5.5, Albumin/Globulin Ratio 0.4L Height (Feet): 5 Height (Inches): 6.00 Weight (Pounds): 134 General Appearance: no apparent distress Neck: limited range of motion Cardiovascular: normal rate Respiratory/Chest: decreased breath sounds Abdomen: soft Tono Case MD December 27, 2018 13:22
--- NOTE | 2018-12-27 14:00 | NUR ---
NURSE NOTES: Patient now on NS at 75 cc/hr. VSS. No distress noted. will continue plan of care.
--- NOTE | 2018-12-27 14:01 | General Progress Note ---
Assessment/Plan Problem List: (1) Acute and chronic respiratory failure ICD Codes: J96.20 - Acute and chronic respiratory failure, unspecified whether with hypoxia or hypercapnia SNOMED: 12196447 (2) Sepsis ICD Codes: A41.9 - Sepsis, unspecified organism SNOMED: 30552642 (3) HTN (hypertension) ICD Codes: I10 - Essential (primary) hypertension SNOMED: 60704811 (4) Seizure disorder ICD Codes: G40.909 - Epilepsy, unspecified, not intractable, without status epilepticus SNOMED: 023524192 (5) ATN (acute tubular necrosis) ICD Codes: N17.0 - Acute kidney failure with tubular necrosis SNOMED: 96372159 Status: unchanged Assessment/Plan: vent abx neph f/u cbc bmp am ltach eval Subjective Constitutional: Reports: weakness Allergies: Coded Allergies: ASPIRIN (Verified Allergy, Unknown, 07/07/17) All Systems: reviewed and negative except above Subjective intubated sedated in icu Objective Last 24 Hour Vital Signs Date Time Temp Pulse Resp B/P (MAP) Pulse Ox O2 Delivery O2 Flow Rate FiO2 12/27/18 12:00 40 12/27/18 12:00 Mechanical Ventilator 12/27/18 11:00 60 16 98/48 (65) 100 12/27/18 10:56 50 16 40 12/27/18 10:00 55 16 91/39 (56) 100 12/27/18 09:10 50 16 40 12/27/18 09:00 55 17 110/30 (56) 100 12/27/18 08:00 40 12/27/18 08:00 60 12/27/18 08:00 Mechanical Ventilator 12/27/18 08:00 98.2 60 18 68/51 (57) 100 12/27/18 07:00 59 18 124/48 (73) 100 12/27/18 06:57 56 16 40 12/27/18 06:00 59 18 115/68 (84) 100 12/27/18 05:28 61 19 40 12/27/18 05:00 63 19 118/92 (101) 100 12/27/18 04:00 40 12/27/18 04:00 98.5 59 18 128/72 (90) 100 12/27/18 04:00 60 12/27/18 04:00 Mechanical Ventilator 12/27/18 03:11 64 18 40 12/27/18 03:00 62 19 133/68 (89) 100 12/27/18 02:00 60 22 124/54 (77) 100 12/27/18 01:32 47 16 40 12/27/18 01:00 58 22 131/89 (103) 100 12/27/18 00:00 Mechanical Ventilator 12/27/18 00:00 98.5 59 22 144/53 (83) 100 12/26/18 23:22 57 18 40 12/26/18 23:00 58 22 136/62 (86) 100 12/26/18 22:00 62 20 126/65 (85) 100 12/26/18 21:06 98.5 62 20 132/85 (101) 100 12/26/18 21:04 48 17 40 12/26/18 21:00 50 20 124/44 (70) 100 12/26/18 20:53 132/85 12/26/18 20:00 62 12/26/18 20:00 Mechanical Ventilator 12/26/18 20:00 40 12/26/18 20:00 98.5 62 20 132/85 (101) 100 12/26/18 19:00 64 20 131/76 (94) 100 12/26/18 18:59 51 17 40 12/26/18 18:00 65 20 119/67 (84) 100 12/26/18 17:00 63 20 126/69 (88) 100 12/26/18 16:40 52 22 40 12/26/18 16:00 98.3 62 19 120/54 (76) 100 12/26/18 16:00 Mechanical Ventilator 12/26/18 16:00 65 12/26/18 16:00 40 12/26/18 15:00 63 20 119/80 (93) 100 12/26/18 14:48 44 22 40 Intake and Output 12/26/18 12/27/18 19:00 07:00 Intake Total 780 ml 875 ml Output Total 865 ml 680 ml Balance -85 ml 195 ml Free Water 60 ml 100 ml IV Total 55 ml Tube Feeding 720 ml 720 ml Output Urine Total 865 ml 560 ml Stool Total 60 ml Chest Tube Drainage Total 60 ml # Bowel Movements 5 Laboratory Tests 12/27/18 04:30: White Blood Count 14.2H, Red Blood Count 3.11L, Hemoglobin 9.3L, Hematocrit 28.3L, Mean Corpuscular Volume 91, Mean Corpuscular Hemoglobin 29.9, Mean Corpuscular Hemoglobin Concent 32.9, Red Cell Distribution Width 13.2, Platelet Count 292, Mean Platelet Volume 6.2L, Neutrophils (%) (Auto) 74.0, Lymphocytes ( %) (Auto) 14.3L, Monocytes (%) (Auto) 4.8, Eosinophils (%) (Auto) 6.0H, Basophils (%) (Auto) 0.9, Prothrombin Time 12.3H, Prothromb Time International Ratio 1.2H, Activated Partial Thromboplast Time 22L, Sodium Level 147H, Potassium Level 3.8, Chloride Level 112H, Carbon Dioxide Level 28, Anion Gap 7, Blood Urea Nitrogen 13, Creatinine 0.9, Estimat Glomerular Filtration Rate , Glucose Level 113H, Calcium Level 9.2, Phosphorus Level 2.8, Magnesium Level 1.9 , Total Bilirubin 0.2, Aspartate Amino Transf (AST/SGOT) 12L, Alanine Aminotransferase (ALT/SGPT) 20, Alkaline Phosphatase 67, Total Protein 7.7, Albumin 2.2L, Globulin 5.5, Albumin/Globulin Ratio 0.4L Height (Feet): 5 Height (Inches): 6.00 Weight (Pounds): 134 General Appearance: lethargic EENT: normal ENT inspection Neck: normal alignment Cardiovascular: normal peripheral pulses, normal rate, regular rhythm Respiratory/Chest: chest wall non-tender, lungs clear, normal breath sounds Abdomen: normal bowel sounds, non tender, soft Extremities: normal inspection Edema: no edema noted Arm (L), no edema noted Arm (R), no edema noted Leg (L), no edema noted Leg (R), no edema noted Pedal (L), no edema noted Pedal (R), no edema noted Generalized Neurologic: motor weakness Skin: normal pigmentation, warm/dry Rl White DO December 27, 2018 14:01
--- NOTE | 2018-12-27 14:06 | Surgery Progress Note ---
Surgery Progress Note Subjective Additional Comments doing well on water seal. alert today with opening eyes spontaneously. intubated on vent support. Objective Last 24 Hour Vital Signs Date Time Temp Pulse Resp B/P (MAP) Pulse Ox O2 Delivery O2 Flow Rate FiO2 12/27/18 12:00 40 12/27/18 12:00 Mechanical Ventilator 12/27/18 11:00 60 16 98/48 (65) 100 12/27/18 10:56 50 16 40 12/27/18 10:00 55 16 91/39 (56) 100 12/27/18 09:10 50 16 40 12/27/18 09:00 55 17 110/30 (56) 100 12/27/18 08:00 40 12/27/18 08:00 60 12/27/18 08:00 Mechanical Ventilator 12/27/18 08:00 98.2 60 18 68/51 (57) 100 12/27/18 07:00 59 18 124/48 (73) 100 12/27/18 06:57 56 16 40 12/27/18 06:00 59 18 115/68 (84) 100 12/27/18 05:28 61 19 40 12/27/18 05:00 63 19 118/92 (101) 100 12/27/18 04:00 40 12/27/18 04:00 98.5 59 18 128/72 (90) 100 12/27/18 04:00 60 12/27/18 04:00 Mechanical Ventilator 12/27/18 03:11 64 18 40 12/27/18 03:00 62 19 133/68 (89) 100 12/27/18 02:00 60 22 124/54 (77) 100 12/27/18 01:32 47 16 40 12/27/18 01:00 58 22 131/89 (103) 100 12/27/18 00:00 Mechanical Ventilator 12/27/18 00:00 98.5 59 22 144/53 (83) 100 12/26/18 23:22 57 18 40 12/26/18 23:00 58 22 136/62 (86) 100 12/26/18 22:00 62 20 126/65 (85) 100 12/26/18 21:06 98.5 62 20 132/85 (101) 100 12/26/18 21:04 48 17 40 12/26/18 21:00 50 20 124/44 (70) 100 12/26/18 20:53 132/85 12/26/18 20:00 62 12/26/18 20:00 Mechanical Ventilator 12/26/18 20:00 40 12/26/18 20:00 98.5 62 20 132/85 (101) 100 12/26/18 19:00 64 20 131/76 (94) 100 12/26/18 18:59 51 17 40 12/26/18 18:00 65 20 119/67 (84) 100 12/26/18 17:00 63 20 126/69 (88) 100 12/26/18 16:40 52 22 40 12/26/18 16:00 98.3 62 19 120/54 (76) 100 12/26/18 16:00 Mechanical Ventilator 12/26/18 16:00 65 12/26/18 16:00 40 12/26/18 15:00 63 20 119/80 (93) 100 12/26/18 14:48 44 22 40 I&O Intake and Output 12/26/18 12/27/18 18:59 06:59 Intake Total 780 ml 875 ml Output Total 865 ml 670 ml Balance -85 ml 205 ml Free Water 60 ml 100 ml IV Total 55 ml Tube Feeding 720 ml 720 ml Output Urine Total 865 ml 550 ml Stool Total 60 ml Chest Tube Drainage Total 60 ml # Bowel Movements 5 Dressing: dry Wound: clean Drains: other Cardiovascular: RSR Respiratory: decreased breath sounds Abdomen: soft, present bowel sounds, non-distended Extremities: no tenderness, no cyanosis Laboratory Tests Test 12/27/18 04:30 White Blood Count 14.2 K/UL (4.8-10.8) H Red Blood Count 3.11 M/UL (4.20-5.40) L Hemoglobin 9.3 G/DL (12.0-16.0) L Hematocrit 28.3 % (37.0-47.0) L Mean Corpuscular Volume 91 FL (80-99) Mean Corpuscular Hemoglobin 29.9 PG (27.0-31.0) Mean Corpuscular Hemoglobin Concent 32.9 G/DL (32.0-36.0) Red Cell Distribution Width 13.2 % (11.6-14.8) Platelet Count 292 K/UL (150-450) Mean Platelet Volume 6.2 FL (6.5-10.1) L Neutrophils (%) (Auto) 74.0 % (45.0-75.0) Lymphocytes (%) (Auto) 14.3 % (20.0-45.0) L Monocytes (%) (Auto) 4.8 % (1.0-10.0) Eosinophils (%) (Auto) 6.0 % (0.0-3.0) H Basophils (%) (Auto) 0.9 % (0.0-2.0) Prothrombin Time 12.3 SEC (9.30-11.50) H Prothromb Time International Ratio 1.2 (0.9-1.1) H Activated Partial Thromboplast Time 22 SEC (23-33) L Sodium Level 147 MMOL/L (136-145) H Potassium Level 3.8 MMOL/L (3.5-5.1) Chloride Level 112 MMOL/L (98-107) H Carbon Dioxide Level 28 MMOL/L (21-32) Anion Gap 7 mmol/L (5-15) Blood Urea Nitrogen 13 mg/dL (7-18) Creatinine 0.9 MG/DL (0.55-1.30) Estimat Glomerular Filtration Rate mL/min (>60) Glucose Level 113 MG/DL (74-106) H Calcium Level 9.2 MG/DL (8.5-10.1) Phosphorus Level 2.8 MG/DL (2.5-4.9) Magnesium Level 1.9 MG/DL (1.8-2.4) Total Bilirubin 0.2 MG/DL (0.2-1.0) Aspartate Amino Transf (AST/SGOT) 12 U/L (15-37) L Alanine Aminotransferase (ALT/SGPT) 20 U/L (12-78) Alkaline Phosphatase 67 U/L (46-116) Total Protein 7.7 G/DL (6.4-8.2) Albumin 2.2 G/DL (3.4-5.0) L Globulin 5.5 g/dL Albumin/Globulin Ratio 0.4 (1.0-2.7) L Plan Problems: (1) Pneumomediastinum (2) Hypoxia (3) Pneumonia (4) Pneumothorax Assessment & Plan: bilateral chest tubes placed prior small air leak noted - resolved on suction CXR with resolved ptx. lots of subcutaneous air. - improving cont chest tubes water seal AM CXR (5) Hypernatremia (6) Hypotension (7) Anemia (8) Seizure disorder (9) Septic shock Assessment & Plan: In ICU intubated on vent CXR noted labs noted cont IV ABx cont vent chest tubes critically ill prognosis guarded (10) HTN (hypertension) (11) Cardiomyopathy (12) Sepsis (13) Acute and chronic respiratory failure (14) Tracheostomy care Assessment & Plan: will plan for trach replacement in OR as she improves (15) Bowel obstruction (16) Feeding by G-tube Assessment & Plan: DAILY ESTIMATED NEEDS: Needs based on Critical Care, wound 63kg 22-28 kcals/kg 2861-1421 total kcals 1.25-2 g protein/kg 78-126 g total protein 25-30 mL/kg 4546-4487 total fluid mLs NUTRITION DIAGNOSIS: * Swallowing difficulty R/T respiratory status, dysphagia as evidenced by pt is trach/vent + PEG dep, s/p respiratory distress, currently orally intubated, NPO. * Increased kcal/prot needs R/T wound healing as evidenced by pt admitted w/ BL malleolus wounds, pending eval. CURRENT TF:NPO ENTERAL NUTRITION RECOMMENDATIONS: Glucerna 1.2 @ 60ml/hr x 22 hrs + Prosource 1pkt daily to provide 1320ml, 1584kcal, 79g + 11g prot, 1065ml free water - Once medically appropriate, initiate TF on Glucerna 1.2 @ 20ml/hr x 6 hrs. - Advance 10ml q 4-6 hrs as tolerated to goal rate - HOB >30 degrees/ water flushes per MD - Add Prosource 1pkt daily to better meet protein needs. - Hold 1 hour before and after Synthroid med. ADDITIONAL RECOMMENDATIONS: 1) Calibrated bedscale wts 2) Monitor lytes, replete as needed 3) Monitor BGs closely, need for hypoglycemic agents (BG 245 upon adm, now improved) 4) F/up w/ wound eval -Rec Tommie 1pkt BID and Vit C 250mg QD for wound healing (17) Malfunction of gastrostomy tube (18) Chronic respiratory failure (19) Chronic vegetative state (20) Nosocomial pneumonia (21) Fecal impaction (22) ATN (acute tubular necrosis) (23) Ileus (24) Acute on chronic renal failure (25) UTI (urinary tract infection) Livan Dean December 27, 2018 14:06
--- NOTE | 2018-12-27 14:42 | Diagnostic Imaging Report ---
Indication: Abdominal pain Comparison: 12/24/2018 Single view of the abdomen obtained Findings: There is a catheter projected over the left kidney. There is a left femoral catheter projected over the left iliac vein. Bowel gas pattern is nonspecific. There are surgical clips in the pelvis. Bones are osteopenic. Vascular calcium noted within the aorta iliac arteries. IMPRESSION: No acute findings
--- NOTE | 2018-12-27 15:15 | General Progress Note ---
Assessment/Plan Status: unchanged Assessment/Plan: Assessment and Recs: # Anemia of chronic disease due to underlying chronic medical issues, multifactorial --> Anemia workup has been ordered, rule out gi bleed --> ferritin is 610 --> No evidence of hemolysis is noted, peripheral smear has been reviewed. --> Hgb goal >7. Transfuse prn. --> Epogen or iron at this time is not particularly indicated --> Medications have been reviewed --> evaluate with Gi team prn --> transfuse if hgb is < 7 (trend CBC daily) --> stool ob is negative --> transfused with 2 units 12/23 # Leukocytosis on admission has been 10-16k --> smear has beenr reviewed, no e/o blasts --> on antibiotics # Acute on chronic Renal failure --> per renal --> cr has improved # Acute on chronic respiratory failure s/p trach with revision --> Pneumothorax s/p chest tube --> planning for trach as per surg # UTI --> on abx --> per id # HypoAlbuminemia # HTN # PEG with Fecal impaction # Malfunction of gastrostomy tube The timing of this note does not necessarily reflect the time of the patient was seen. Greatly appreciate consultation! Subjective HEENT: Denies: no symptoms, eye pain, blurred vision, tearing, double vision, ear pain, ear discharge, nose pain, nose congestion, throat pain, throat swelling, mouth pain, mouth swelling, other Cardiovascular: Denies: no symptoms, chest pain, edema, irregular heart rate, lightheadedness, palpitations, syncope, other Respiratory: Denies: no symptoms, cough, orthopnea, shortness of breath, SOB with excertion, SOB at rest, sputum, stridor, wheezing, other Gastrointestinal/Abdominal: Denies: no symptoms, abdomen distended, abdominal pain, black stools, tarry stools, blood in stool, constipated, diarrhea, difficulty swallowing, nausea, poor appetite, poor fluid intake, rectal bleeding , vomiting, other Genitourinary: Denies: no symptoms, burning, discharge, frequency, flank pain, hematuria, incontinence, pain, urgency, other Neurologic/Psychiatric: Denies: no symptoms, anxiety, depressed, emotional problems, headache, numbness, paresthesia, pre-existing deficit, seizure, tingling, tremors, weakness, other Hematologic/Lymphatic: Denies: no symptoms, anemia, easy bleeding, easy bruising, other Allergies: Coded Allergies: ASPIRIN (Verified Allergy, Unknown, 07/07/17) Subjective 12/26: no events, remains sedated, in the icu, on vent 12/27: no events noted, no f/c, considering ltach placement Objective Last 24 Hour Vital Signs Date Time Temp Pulse Resp B/P (MAP) Pulse Ox O2 Delivery O2 Flow Rate FiO2 12/27/18 15:00 60 17 95/62 (73) 100 12/27/18 14:00 62 16 99/65 (76) 100 12/27/18 13:29 60 18 40 12/27/18 13:00 59 16 102/64 (77) 100 12/27/18 12:00 40 12/27/18 12:00 Mechanical Ventilator 12/27/18 12:00 60 12/27/18 12:00 98.4 66 16 95/50 (65) 100 12/27/18 11:00 60 16 98/48 (65) 100 12/27/18 10:56 50 16 40 12/27/18 10:00 55 16 91/39 (56) 100 12/27/18 09:10 50 16 40 12/27/18 09:00 55 17 110/30 (56) 100 12/27/18 08:00 40 12/27/18 08:00 60 12/27/18 08:00 Mechanical Ventilator 12/27/18 08:00 98.2 60 18 68/51 (57) 100 12/27/18 07:00 59 18 124/48 (73) 100 12/27/18 06:57 56 16 40 12/27/18 06:00 59 18 115/68 (84) 100 12/27/18 05:28 61 19 40 12/27/18 05:00 63 19 118/92 (101) 100 12/27/18 04:00 40 12/27/18 04:00 98.5 59 18 128/72 (90) 100 12/27/18 04:00 60 12/27/18 04:00 Mechanical Ventilator 12/27/18 03:11 64 18 40 12/27/18 03:00 62 19 133/68 (89) 100 12/27/18 02:00 60 22 124/54 (77) 100 12/27/18 01:32 47 16 40 12/27/18 01:00 58 22 131/89 (103) 100 12/27/18 00:00 Mechanical Ventilator 12/27/18 00:00 98.5 59 22 144/53 (83) 100 12/26/18 23:22 57 18 40 12/26/18 23:00 58 22 136/62 (86) 100 12/26/18 22:00 62 20 126/65 (85) 100 12/26/18 21:06 98.5 62 20 132/85 (101) 100 12/26/18 21:04 48 17 40 12/26/18 21:00 50 20 124/44 (70) 100 12/26/18 20:53 132/85 12/26/18 20:00 62 12/26/18 20:00 Mechanical Ventilator 12/26/18 20:00 40 12/26/18 20:00 98.5 62 20 132/85 (101) 100 12/26/18 19:00 64 20 131/76 (94) 100 12/26/18 18:59 51 17 40 12/26/18 18:00 65 20 119/67 (84) 100 12/26/18 17:00 63 20 126/69 (88) 100 12/26/18 16:40 52 22 40 12/26/18 16:00 98.3 62 19 120/54 (76) 100 12/26/18 16:00 Mechanical Ventilator 12/26/18 16:00 65 12/26/18 16:00 40 Intake and Output 12/26/18 12/27/18 18:59 06:59 Intake Total 780 ml 875 ml Output Total 865 ml 670 ml Balance -85 ml 205 ml Free Water 60 ml 100 ml IV Total 55 ml Tube Feeding 720 ml 720 ml Output Urine Total 865 ml 550 ml Stool Total 60 ml Chest Tube Drainage Total 60 ml # Bowel Movements 5 Laboratory Tests 12/27/18 04:30: White Blood Count 14.2H, Red Blood Count 3.11L, Hemoglobin 9.3L, Hematocrit 28.3L, Mean Corpuscular Volume 91, Mean Corpuscular Hemoglobin 29.9, Mean Corpuscular Hemoglobin Concent 32.9, Red Cell Distribution Width 13.2, Platelet Count 292, Mean Platelet Volume 6.2L, Neutrophils (%) (Auto) 74.0, Lymphocytes ( %) (Auto) 14.3L, Monocytes (%) (Auto) 4.8, Eosinophils (%) (Auto) 6.0H, Basophils (%) (Auto) 0.9, Prothrombin Time 12.3H, Prothromb Time International Ratio 1.2H, Activated Partial Thromboplast Time 22L, Sodium Level 147H, Potassium Level 3.8, Chloride Level 112H, Carbon Dioxide Level 28, Anion Gap 7, Blood Urea Nitrogen 13, Creatinine 0.9, Estimat Glomerular Filtration Rate , Glucose Level 113H, Calcium Level 9.2, Phosphorus Level 2.8, Magnesium Level 1.9 , Total Bilirubin 0.2, Aspartate Amino Transf (AST/SGOT) 12L, Alanine Aminotransferase (ALT/SGPT) 20, Alkaline Phosphatase 67, Total Protein 7.7, Albumin 2.2L, Globulin 5.5, Albumin/Globulin Ratio 0.4L Height (Feet): 5 Height (Inches): 6.00 Weight (Pounds): 134 Objective p02 EP Interpretation: reviewed, normal General Appearance: severe distress, lethargic, obese, Stupor Head: atraumatic Eyes: bilateral eye normal inspection ENT: moist mucus membranes Neck: supple Respiratory: respiratory distress, decreased breath sounds ++ intubated Cardiovascular: tachycardia Gastrointestinal: distended - G-tube in place Genitourinary: no CVA tenderness Musculoskeletal: other - Contractures lower extremity Neurologic: other - Unable to assess due to patient poor mental status Psychiatric: other - Unable to assess patient unconscious Micha Torres MD December 27, 2018 15:15
--- NOTE | 2018-12-27 16:12 | NUR ---
[employer]ACING [employer] SI:RESP FAILURE . PNEUMOTHORAX . PNA VS: BP 95/62, P 49, T 98.4, RR 16, SpO2 100 on VENT FiO2 40 WBC 14.2, RBC 3.11, H&H 9.3/28.3, Na 147 ABDOMINAL XRAY: There is a catheter projected over the left kidney. There is a left femoral catheter projected over the left iliac vein. IS:NS x1L IV CEFEPIME 55ml IVPB HEPARIN SUBQ PROTONIX 40mg IV LACTULOSE 20gm CORDARONE 100mg ICU STATUS BILATERAL CHEST TUBES 12/21 ICU STAUS
--- NOTE | 2018-12-27 17:27 | NUR ---
NURSE NOTES: Colace & Lactulose for 1800 will be held due to change in patient condition. Diarrhea / rectal tube.
--- NOTE | 2018-12-27 17:41 | Infectious Diseases Prog Note ---
Assessment/Plan Assessment/Plan Assessment: Sepsis- Probable PNA SCx : PSA and H. Influenza 12/24 CXR Stable satisfactory position of endotracheal tube. Bilateral chest tubes remain in place Bacteremia : CoNS ( STAPHYLOCOCCUS AURICULARIS and Epid ) m/l contaminant - 2d ECHO : no Veg Afebrile Leukocytosis, persistent Hx of recurrent PNA (VAP/HAP) -10/2017 MDR PSA, H. flu -sp cx MDR ACB 07/2017, s/p Rx PnTx , Bl chest tube JAMES, improving Acute respiratory failure, failed trach and now intubated 12/21/18 Hypertension. History of seizure disorder Ventilator-dependent respiratory failure History of lower extremity DVT History of PEG and trach placement dementia quadriplegic COPD [facility] resident Plan: -Continue Cefepime d# 11/04 12/26 Sp IV Vancomycin # 01/01 12/25 Sp Amikacin # 3 and Zosyn # 4 -f/u cx -Monitor CBC/CMP, temperatures -ETT care -aspiration precautions Subjective Allergies: Coded Allergies: ASPIRIN (Verified Allergy, Unknown, 07/07/17) Subjective pt in ICU Objective Vital Signs Last 24 Hour Vital Signs Date Time Temp Pulse Resp B/P (MAP) Pulse Ox O2 Delivery O2 Flow Rate FiO2 12/27/18 17:00 55 17 102/62 (75) 100 12/27/18 16:37 68 16 40 12/27/18 16:00 54 12/27/18 16:00 Mechanical Ventilator 12/27/18 16:00 98.7 58 16 101/65 (77) 100 12/27/18 16:00 40 12/27/18 15:20 49 16 40 12/27/18 15:00 60 17 95/62 (73) 100 12/27/18 14:00 62 16 99/65 (76) 100 12/27/18 13:29 60 18 40 12/27/18 13:00 59 16 102/64 (77) 100 12/27/18 12:00 40 12/27/18 12:00 Mechanical Ventilator 12/27/18 12:00 60 12/27/18 12:00 98.4 66 16 95/50 (65) 100 12/27/18 11:00 60 16 98/48 (65) 100 12/27/18 10:56 50 16 40 12/27/18 10:00 55 16 91/39 (56) 100 12/27/18 09:10 50 16 40 12/27/18 09:00 55 17 110/30 (56) 100 12/27/18 08:00 40 12/27/18 08:00 60 12/27/18 08:00 Mechanical Ventilator 12/27/18 08:00 98.2 60 18 68/51 (57) 100 12/27/18 07:00 59 18 124/48 (73) 100 12/27/18 06:57 56 16 40 12/27/18 06:00 59 18 115/68 (84) 100 12/27/18 05:28 61 19 40 12/27/18 05:00 63 19 118/92 (101) 100 12/27/18 04:00 40 12/27/18 04:00 98.5 59 18 128/72 (90) 100 12/27/18 04:00 60 12/27/18 04:00 Mechanical Ventilator 12/27/18 03:11 64 18 40 12/27/18 03:00 62 19 133/68 (89) 100 12/27/18 02:00 60 22 124/54 (77) 100 12/27/18 01:32 47 16 40 12/27/18 01:00 58 22 131/89 (103) 100 12/27/18 00:00 Mechanical Ventilator 12/27/18 00:00 98.5 59 22 144/53 (83) 100 12/26/18 23:22 57 18 40 12/26/18 23:00 58 22 136/62 (86) 100 12/26/18 22:00 62 20 126/65 (85) 100 12/26/18 21:06 98.5 62 20 132/85 (101) 100 12/26/18 21:04 48 17 40 12/26/18 21:00 50 20 124/44 (70) 100 12/26/18 20:53 132/85 12/26/18 20:00 62 12/26/18 20:00 Mechanical Ventilator 12/26/18 20:00 40 12/26/18 20:00 98.5 62 20 132/85 (101) 100 12/26/18 19:00 64 20 131/76 (94) 100 12/26/18 18:59 51 17 40 12/26/18 18:00 65 20 119/67 (84) 100 Height (Feet): 5 Height (Inches): 6.00 Weight (Pounds): 134 HEENT: mucous membranes moist Respiratory/Chest: no respiratory distress Cardiovascular: regularly irregular Abdomen: non distended Laboratory Tests Test 12/27/18 04:30 White Blood Count 14.2 K/UL (4.8-10.8) H Red Blood Count 3.11 M/UL (4.20-5.40) L Hemoglobin 9.3 G/DL (12.0-16.0) L Hematocrit 28.3 % (37.0-47.0) L Mean Corpuscular Volume 91 FL (80-99) Mean Corpuscular Hemoglobin 29.9 PG (27.0-31.0) Mean Corpuscular Hemoglobin Concent 32.9 G/DL (32.0-36.0) Red Cell Distribution Width 13.2 % (11.6-14.8) Platelet Count 292 K/UL (150-450) Mean Platelet Volume 6.2 FL (6.5-10.1) L Neutrophils (%) (Auto) 74.0 % (45.0-75.0) Lymphocytes (%) (Auto) 14.3 % (20.0-45.0) L Monocytes (%) (Auto) 4.8 % (1.0-10.0) Eosinophils (%) (Auto) 6.0 % (0.0-3.0) H Basophils (%) (Auto) 0.9 % (0.0-2.0) Prothrombin Time 12.3 SEC (9.30-11.50) H Prothromb Time International Ratio 1.2 (0.9-1.1) H Activated Partial Thromboplast Time 22 SEC (23-33) L Sodium Level 147 MMOL/L (136-145) H Potassium Level 3.8 MMOL/L (3.5-5.1) Chloride Level 112 MMOL/L (98-107) H Carbon Dioxide Level 28 MMOL/L (21-32) Anion Gap 7 mmol/L (5-15) Blood Urea Nitrogen 13 mg/dL (7-18) Creatinine 0.9 MG/DL (0.55-1.30) Estimat Glomerular Filtration Rate mL/min (>60) Glucose Level 113 MG/DL (74-106) H Calcium Level 9.2 MG/DL (8.5-10.1) Phosphorus Level 2.8 MG/DL (2.5-4.9) Magnesium Level 1.9 MG/DL (1.8-2.4) Total Bilirubin 0.2 MG/DL (0.2-1.0) Aspartate Amino Transf (AST/SGOT) 12 U/L (15-37) L Alanine Aminotransferase (ALT/SGPT) 20 U/L (12-78) Alkaline Phosphatase 67 U/L (46-116) Total Protein 7.7 G/DL (6.4-8.2) Albumin 2.2 G/DL (3.4-5.0) L Globulin 5.5 g/dL Albumin/Globulin Ratio 0.4 (1.0-2.7) L Current Medications Medications (Trade) Dose Ordered Sig/Torsten Route PRN Reason Start Time Stop Time Status Last Admin Dose Admin Acetaminophen (Tylenol) 650 mg Q4H PRN GT Mild Pain/Temp > 100.5 12/23/18 13:15 01/22/19 13:14 12/24/18 20:12 Amiodarone HCl (Cordarone) 100 mg DAILY GT 12/25/18 09:00 01/21/19 08:59 12/26/18 08:56 Ascorbic Acid (Vitamin C) 250 mg DAILY GT 12/24/18 09:00 01/22/19 08:59 12/27/18 08:19 Cefepime HCl 2 gm/ Dextrose 55 ml @ 110 mls/hr Q24H IVPB 12/27/18 04:00 01/03/19 03:59 12/27/18 04:00 Chlorhexidine Gluconate (Mariah-Hex 2%) 1 applic DAILY@2000 TOPIC 12/25/18 20:00 01/24/19 19:59 12/26/18 20:43 Docusate Sodium (Colace) 100 mg TWICE A DAY ORAL 12/24/18 09:00 01/23/19 08:59 12/26/18 18:00 Heparin Sodium (Porcine) (Heparin 5000 units/ml) 5,000 units EVERY 12 HOURS SUBQ 12/21/18 21:00 01/20/19 20:59 12/27/18 08:20 Heparin Sodium/ Sodium Chloride (Heparin 1000 units/500ml Premix) 1,000 unit ONCE PRN IV PICC LINE 12/25/18 09:15 12/27/18 18:00 Lactulose (Cephulac) 20 gm THREE TIMES A DAY ORAL 12/24/18 09:00 01/23/19 08:59 12/26/18 18:00 Lorazepam (Ativan 2mg/ml 1ml) 2 mg Q2H PRN IV For Anxiety 12/21/18 20:45 12/28/18 20:44 12/24/18 20:12 Morphine Sulfate (Morphine Sulfate) 4 mg Q4H PRN IVP Severe Pain (Pain Scale 7-10) 12/21/18 20:45 12/28/18 20:44 12/23/18 20:48 Norepinephrine Bitartrate 4 mg/ Dextrose 254 ml @ 0 mls/hr Q24H IV 12/21/18 22:00 01/20/19 21:59 Ondansetron HCl (Zofran) 4 mg Q6H PRN IVP Nausea & Vomiting 12/21/18 20:45 01/20/19 20:44 Pantoprazole (Protonix) 40 mg Q12HR IV 12/23/18 21:00 01/21/19 08:59 12/27/18 08:19 Polyethylene Glycol (Miralax) 17 gm DAILYPRN PRN GT Constipation 12/23/18 13:30 01/20/19 20:44 Sodium Chloride 1,000 ml @ 75 mls/hr [id number] IV 12/27/18 14:13 01/26/19 14:12 12/27/18 14:35 Ricky Slater MD December 27, 2018 17:41
--- NOTE | 2018-12-27 18:56 | NUR ---
RESPIRATORY NOTE: Received pt on AC 16, 500VT, 40%, PEEP +5. Pt intubated w/ ETT 7.0 @ 24cm lipline, secured by anchorfast. Pt previously trached, stoma site covered w/ dressing, no bleeding/drainage noted. Pt awake/disoriented, responds to stimuli. B/S kee. rhonchi, sxn moderate amounts of thick, pale-yellow to cook-yellow secretions. Vent plugged into red outlet, ambubag at bedside. Pt in no apparent distress at this time. Will continue to monitor pt.
--- NOTE | 2018-12-27 19:04 | NUR ---
HAND-OFF: Report given to Zayra RN using SBAR. VSS. No distress noted.
--- NOTE | 2018-12-27 19:04 | NUR ---
NURSE NOTES: Endorsement received from RONDA Pathak. Received with eyes open, however does not track. Withdraws to pain. Orally intubated with ET 7.0, 24 lipline. AC 16, Vt 500, PEEP 5, 40% Fio2. GT patent and intact. Ongoing Glucerna 1.2 at 60ml/hr. No residual. With bilateral water seal drainage, secured. Clamps at bedside. With right femoral TLC, flushing well. With rectal tube draining per gravity. Smith catheter connected to urimeter. Head of bed elevated. Bed alarm on. Bed locked and in low position. On P200 mattress. On seizure precautions.
[2018-12-27] MEDS: Dyna-Hex 2% Top Sol 2oz TOPIC SCH (20:24)
--- NOTE | 2018-12-27 21:00 | NUR ---
NURSE NOTES: Heparin SQ not given due to planned trache and bronch in the morning.
--- NOTE | 2018-12-27 23:00 | NUR ---
NURSE NOTES: Repositioned. Secretions suctioned. Appears comfortable. Still sinus rhythm on the monitor.
[2018-12-28] VITALS (23 sets, daily range): BP systolic 80–187; BP diastolic 30–100
--- NOTE | 2018-12-28 | NUR ---
NURSE NOTES: GT feeding turned off, NPO at midnight. GT flushed. Patient with eyes closed. Head of bed elevated. No shortness of breath.
--- NOTE | 2018-12-28 02:00 | NUR ---
NURSE NOTES: Still sinus ruthann, otherwise vitals stable. Repositioned. No seizure activity. Will continue to monitor.
--- NOTE | 2018-12-28 04:00 | NUR ---
NURSE NOTES: Bed bath, oral care, change of linens done.
[2018-12-28] MEDS: Cefepime HCl 2 GM in D5W 55 ML IVPB SCH (04:39)
[2018-12-28 05:04] LABS: BASOPHILS % (AUTO) 0.5 % (0.0-2.0); EOSINOPHILS % (AUTO) 6.8 % (0.0-3.0); HEMATOCRIT 28.2 % (37.0-47.0); HEMOGLOBIN 9.2 G/DL (12.0-16.0); LYMPHOCYTES % (AUTO) 19.5 % (20.0-45.0); MEAN CORPUSCULAR VOLUME 91 FL (80-99); MONOCYTES % (AUTO) 6.7 % (1.0-10.0); NEUTROPHILS % (AUTO) 66.6 % (45.0-75.0); PLATELET COUNT 313 K/UL (150-450); RED CELL DISTRIBUTION WIDTH 13.2 % (11.6-14.8); WHITE BLOOD COUNT 12.7 K/UL (4.8-10.8)
[2018-12-28 05:16] LABS: INR 1.1 (0.9-1.1)
[2018-12-28 05:33] LABS: ALANINE AMINOTRANSFERASE 20 U/L (12-78); ALBUMIN 2.4 G/DL (3.4-5.0); ALBUMIN/GLOBULIN RATIO 0.5 (1.0-2.7); ALKALINE PHOSPHATASE 66 U/L (46-116); ANION GAP 6 mmol/L (5-15); ASPARTATE AMINO TRANSFERASE 15 U/L (15-37); BILIRUBIN,TOTAL 0.3 MG/DL (0.2-1.0); BLOOD UREA NITROGEN 13 mg/dL (7-18); CARBON DIOXIDE 31 MMOL/L (21-32); CHLORIDE 110 MMOL/L (98-107); CREATININE 0.9 MG/DL (0.55-1.30); PHOSPHORUS 2.4 MG/DL (2.5-4.9); POTASSIUM 3.9 MMOL/L (3.5-5.1); SODIUM 147 MMOL/L (136-145)
--- NOTE | 2018-12-28 06:00 | NUR ---
NURSE NOTES: Patient with eyes closed. With 3ml output from right chest tube, 5ml from left chest tube. Still sinus ruthann on the monitor.
--- NOTE | 2018-12-28 06:34 | Anethesia Preoperative Eval ---
Anesthesia Pre-op PMH/ROS General Date of Evaluation: December 28, 2018 Time of Evaluation: 06:11 Anesthesiologist: Crow ASA Score: ASA 4 Mallampati Score Class I : Soft palate, uvula, fauces, pillars visible Class II: Soft palate, uvula, fauces visible Class III: Soft palate, base of uvula visible Class IV: Only hard plate visible Mallampati Classification: Class III Surgeon: Jermaine Diagnosis: Ventilatory Failure Surgical Procedure: Tracheostomy Anesthesia History: none Family History: no anesthesia problems Allergies: Coded Allergies: ASPIRIN (Verified Allergy, Unknown, 07/07/17) Medications: see eMAR Patient NPO?: Yes Past Medical History Cardiovascular: Reports: HTN, arrhythmia - Pacemaker Pulmonary: Reports: asthma, COPD, other - Vent Failure Gastrointestinal/Genitourinary: Reports: CRI Neurologic/Psychiatric: Reports: dementia, CVA, depression/anxiety, other - Schizophrenia Hematology/Immune: Reports: anemia PSxH Narrative: PEG Anesthesia Pre-op Phys. Exam Physician Exam Last Vital Signs Date Time Temp Pulse Resp B/P (MAP) Pulse Ox O2 Delivery O2 Flow Rate FiO2 12/28/18 06:00 60 16 130/93 (105) 97 12/28/18 05:07 40 12/28/18 04:00 Mechanical Ventilator 12/28/18 04:00 98.6 Constitutional: NAD Neurologic: CN 2-12 intact Cardiovascular: RRR Respiratory: CTA Gastrointestinal: S/NT/ND Airway Exam Mallampati Score: Class III MO: limited ROM: limited Teeth: missing Anesthesia Pre-op A/P Labs Hematology Test 12/28/18 04:30 White Blood Count 12.7 K/UL (4.8-10.8) H Red Blood Count 3.10 M/UL (4.20-5.40) L Hemoglobin 9.2 G/DL (12.0-16.0) L Hematocrit 28.2 % (37.0-47.0) L Mean Corpuscular Volume 91 FL (80-99) Mean Corpuscular Hemoglobin 29.6 PG (27.0-31.0) Mean Corpuscular Hemoglobin Concent 32.5 G/DL (32.0-36.0) Red Cell Distribution Width 13.2 % (11.6-14.8) Platelet Count 313 K/UL (150-450) Mean Platelet Volume 6.5 FL (6.5-10.1) Neutrophils (%) (Auto) 66.6 % (45.0-75.0) Lymphocytes (%) (Auto) 19.5 % (20.0-45.0) L Monocytes (%) (Auto) 6.7 % (1.0-10.0) Eosinophils (%) (Auto) 6.8 % (0.0-3.0) H Basophils (%) (Auto) 0.5 % (0.0-2.0) Coagulation Test 12/28/18 04:30 Prothrombin Time 12.0 SEC (9.30-11.50) H Prothromb Time International Ratio 1.1 (0.9-1.1) Activated Partial Thromboplast Time 25 SEC (23-33) Chemistry Test 12/28/18 04:30 Sodium Level 147 MMOL/L (136-145) H Potassium Level 3.9 MMOL/L (3.5-5.1) Chloride Level 110 MMOL/L (98-107) H Carbon Dioxide Level 31 MMOL/L (21-32) Anion Gap 6 mmol/L (5-15) Blood Urea Nitrogen 13 mg/dL (7-18) Creatinine 0.9 MG/DL (0.55-1.30) Estimat Glomerular Filtration Rate mL/min (>60) Glucose Level 97 MG/DL (74-106) Calcium Level 9.0 MG/DL (8.5-10.1) Phosphorus Level 2.4 MG/DL (2.5-4.9) L Magnesium Level 1.8 MG/DL (1.8-2.4) Total Bilirubin 0.3 MG/DL (0.2-1.0) Aspartate Amino Transf (AST/SGOT) 15 U/L (15-37) Alanine Aminotransferase (ALT/SGPT) 20 U/L (12-78) Alkaline Phosphatase 66 U/L (46-116) Total Protein 7.7 G/DL (6.4-8.2) Albumin 2.4 G/DL (3.4-5.0) L Globulin 5.3 g/dL Albumin/Globulin Ratio 0.5 (1.0-2.7) L Risk Assessment & Plan Assessment: ASA 4 Plan: GA Status Change Before Surgery: No Pre-Antibiotics Drug: Shady Henriquez MD December 28, 2018 06:34
--- NOTE | 2018-12-28 07:17 | NUR ---
RESPIRATORY NOTE: Received pt on AC 16, 500ml, 40%, PEEP +5. Pt orally intubated w/ ETT 7.0 @ 24cm lipline, secured by anchorfast. Pt previously trached, stoma site covered w/ dressing, no bleeding/drainage noted. Pt awake/disoriented, responds to stimuli. B/S kee. rhonchi, sxn small amounts of thick cook yellow secretions without incidents. Alarms are set and audible, Vent is plugged into red outlet, ambubag at bedside. Pt in no apparent distress at this time. Will continue to monitor pt.
--- NOTE | 2018-12-28 07:30 | NUR ---
HAND-OFF: Report given to RONDA Mar.
--- NOTE | 2018-12-28 07:40 | NUR ---
NURSE NOTES: Report received from RONDA Iverson. Pt in bed. opens eyes to tactile stimuli and respond to pain. lips are puffy. Crepitus noted on upper chest. Bilateral chest tubes, to water seal minimal drainage. No air leaks noted. Sinus Fracisco on front desk monitor. ETT 7.5/24cm, AC 16, TV 500, FiO2 40%, P 5. O2 sat 100%. G-tube in place, clamped. pt NPO past MN. Smith in place draining yellow urine to gravity. replaced securement devise on RT thigh. Left femoral TLC patent and asymptomatic. NS is running at 75ml/hr. Right and left malleolus dressing dry and intact. Bed in lowest position. Side rails up x3. Call light within reach. contact and Sz precautions in place. Will continue to implement plan of care.
--- NOTE | 2018-12-28 07:49 | NUR ---
NURSE NOTES: radiology here to do CXR. pt in no acute distress.
--- NOTE | 2018-12-28 07:50 | NUR ---
NURSE NOTES: MD SPRINGER HERE TO SEE PT. NO NEW ORDERS AT THIS TIME.
--- NOTE | 2018-12-28 07:51 | NUR ---
NURSE NOTES: RECEIVED CALL FROM OR FOR PREOP CHECKLIST, H&P, IV ACCESS ON ORDER FOR CONSENT AND CONSENT SIGNATURE. INFORMED THAT NO CONSENT HAS BEEN OBTAINED, WILL INFORM MD GUTIÉRREZ
[2018-12-28] MEDS: Lactulose 20gm/30ml UDC ORAL SCH ×3 (08:01→17:00)
[2018-12-28] MEDS: Docusate 100mg cap ORAL SCH ×2 (08:01→17:00)
[2018-12-28] MEDS: Amiodarone 200mg tab GT SCH (08:01)
[2018-12-28] MEDS: Ascorbic Acid 500mg tab GT SCH (08:01)
[2018-12-28] MEDS: Heparin 5000 units/ml inj SUBQ SCH ×2 (08:02→20:31)
[2018-12-28] MEDS: Pantoprazole Inj IV SCH (08:16)
--- NOTE | 2018-12-28 08:31 | NUR ---
RADIOLOGY DEPT., CHEST X-RAY DONE.-P.DYE
[2018-12-28] MEDS ORDERED: Zemuron 50mg/5ml Inj IV ONE (08:47)
--- NOTE | 2018-12-28 09:08 | NUR ---
NURSE NOTES: Placed second call this am to public guardian/ conservator Carlos Salgado. Consent given for PICC, Tracheostomy and Bronchoscopy. co- witness Kevyn BOND. O.R informed that consent obtained.
--- NOTE | 2018-12-28 09:09 | GI Progress Note ---
Assessment/Plan Problems: (1) Ileus ICD Codes: K56.7 - Ileus, unspecified SNOMED: 885606704 (2) Fecal impaction ICD Codes: K56.41 - Fecal impaction SNOMED: 56445308 (3) Malfunction of gastrostomy tube ICD Codes: K94.23 - Gastrostomy malfunction SNOMED: 081565348 (4) Feeding by G-tube ICD Codes: Z93.1 - Gastrostomy status SNOMED: 191184387, 821591476 (5) Anemia ICD Codes: D64.9 - Anemia, unspecified SNOMED: 196049668 Status: unchanged Status Narrative Discussed with Dr. Skinner. Assessment/Plan bowel regimen neg stool ob GI procedures on hold for now GTF GT care The patient was seen and examined at bedside and all new and available data was reviewed in the patients chart. I agree with the above findings, impression and plan. (Patient seen earlier today. Signature stamp does not reflect patient encounter time.). - Jad Skinner MD Subjective Subjective limited Objective Last 24 Hour Vital Signs Date Time Temp Pulse Resp B/P (MAP) Pulse Ox O2 Delivery O2 Flow Rate FiO2 12/28/18 08:30 59 23 35 12/28/18 08:25 35 12/28/18 07:17 43 16 Mechanical Ventilator 40 12/28/18 07:16 43 16 40 12/28/18 06:00 60 16 130/93 (105) 97 12/28/18 05:07 58 16 40 12/28/18 05:00 57 16 121/56 (77) 100 12/28/18 04:00 40 12/28/18 04:00 Mechanical Ventilator 12/28/18 04:00 98.6 54 18 149/30 (69) 100 12/28/18 04:00 63 12/28/18 03:03 53 16 40 12/28/18 03:00 54 18 111/30 (57) 100 12/28/18 02:00 59 18 111/30 (57) 100 12/28/18 01:20 59 17 40 12/28/18 01:00 62 19 99/38 (58) 100 12/28/18 00:00 Mechanical Ventilator 12/28/18 00:00 40 12/28/18 00:00 59 12/28/18 00:00 97.9 52 17 99/38 (58) 100 12/27/18 23:00 61 21 40 12/27/18 23:00 53 17 126/80 (95) 100 12/27/18 22:00 54 18 109/70 (83) 100 12/27/18 22:00 109/70 12/27/18 21:00 56 18 121/86 (98) 100 12/27/18 20:58 60 18 40 12/27/18 20:00 Mechanical Ventilator 12/27/18 20:00 40 12/27/18 20:00 98.0 54 17 116/59 (78) 100 12/27/18 20:00 51 12/27/18 19:00 55 17 99/63 (75) 100 12/27/18 18:54 61 18 40 12/27/18 18:00 58 17 105/65 (78) 100 12/27/18 17:00 55 17 102/62 (75) 100 12/27/18 16:37 68 16 40 12/27/18 16:00 54 12/27/18 16:00 Mechanical Ventilator 12/27/18 16:00 98.7 58 16 101/65 (77) 100 12/27/18 16:00 40 12/27/18 15:20 49 16 40 12/27/18 15:00 60 17 95/62 (73) 100 12/27/18 14:00 62 16 99/65 (76) 100 12/27/18 13:29 60 18 40 12/27/18 13:00 59 16 102/64 (77) 100 12/27/18 12:00 40 12/27/18 12:00 Mechanical Ventilator 12/27/18 12:00 60 12/27/18 12:00 98.4 66 16 95/50 (65) 100 12/27/18 11:00 60 16 98/48 (65) 100 12/27/18 10:56 50 16 40 12/27/18 10:00 55 16 91/39 (56) 100 12/27/18 09:10 50 16 40 Intake and Output 12/27/18 12/28/18 19:00 07:00 Intake Total 1035 ml 1355 ml Output Total 510 ml 808 ml Balance 525 ml 547 ml Free Water 100 ml IV Total 375 ml 955 ml Tube Feeding 660 ml 300 ml Output Urine Total 410 ml 800 ml Stool Total 100 ml Chest Tube Drainage Total 8 ml Laboratory Tests Test 12/28/18 04:30 12/28/18 08:05 White Blood Count 12.7 K/UL (4.8-10.8) H Red Blood Count 3.10 M/UL (4.20-5.40) L Hemoglobin 9.2 G/DL (12.0-16.0) L Hematocrit 28.2 % (37.0-47.0) L Mean Corpuscular Volume 91 FL (80-99) Mean Corpuscular Hemoglobin 29.6 PG (27.0-31.0) Mean Corpuscular Hemoglobin Concent 32.5 G/DL (32.0-36.0) Red Cell Distribution Width 13.2 % (11.6-14.8) Platelet Count 313 K/UL (150-450) Mean Platelet Volume 6.5 FL (6.5-10.1) Neutrophils (%) (Auto) 66.6 % (45.0-75.0) Lymphocytes (%) (Auto) 19.5 % (20.0-45.0) L Monocytes (%) (Auto) 6.7 % (1.0-10.0) Eosinophils (%) (Auto) 6.8 % (0.0-3.0) H Basophils (%) (Auto) 0.5 % (0.0-2.0) Prothrombin Time 12.0 SEC (9.30-11.50) H Prothromb Time International Ratio 1.1 (0.9-1.1) Activated Partial Thromboplast Time 25 SEC (23-33) Sodium Level 147 MMOL/L (136-145) H Potassium Level 3.9 MMOL/L (3.5-5.1) Chloride Level 110 MMOL/L (98-107) H Carbon Dioxide Level 31 MMOL/L (21-32) Anion Gap 6 mmol/L (5-15) Blood Urea Nitrogen 13 mg/dL (7-18) Creatinine 0.9 MG/DL (0.55-1.30) Estimat Glomerular Filtration Rate mL/min (>60) Glucose Level 97 MG/DL (74-106) Calcium Level 9.0 MG/DL (8.5-10.1) Phosphorus Level 2.4 MG/DL (2.5-4.9) L Magnesium Level 1.8 MG/DL (1.8-2.4) Total Bilirubin 0.3 MG/DL (0.2-1.0) Aspartate Amino Transf (AST/SGOT) 15 U/L (15-37) Alanine Aminotransferase (ALT/SGPT) 20 U/L (12-78) Alkaline Phosphatase 66 U/L (46-116) Total Protein 7.7 G/DL (6.4-8.2) Albumin 2.4 G/DL (3.4-5.0) L Globulin 5.3 g/dL Albumin/Globulin Ratio 0.5 (1.0-2.7) L Arterial Blood pH 7.398 (7.350-7.450) Arterial Blood Partial Pressure CO2 46.5 mmHg (35.0-45.0) H Arterial Blood Partial Pressure O2 146.5 mmHg (75.0-100.0) H Arterial Blood HCO3 28.0 mmol/L (22.0-26.0) H Arterial Blood Oxygen Saturation 98.2 % (95-100) Arterial Blood Base Excess 2.7 (-2-2) H Luís Test Positive Height (Feet): 5 Height (Inches): 5.00 Weight (Pounds): 134 General Appearance: no apparent distress Cardiovascular: normal rate Respiratory/Chest: normal breath sounds, no respiratory distress Abdominal Exam: normal bowel sounds, non tender, soft, GT site - c/d/i Extremities: non-tender Svetlana French NP December 28, 2018 09:09
--- NOTE | 2018-12-28 09:18 | Pre-Procedure Note/Attestation ---
Pre-Procedure Note/Attestation Complete Prior to Procedure Planned Procedure: not applicable Procedure Narrative: tracheostomy and bronchoscopy Indications for Procedure Pre-Operative Diagnosis: respiratory insufficiency malpositioned/ malfunctioning prior trach dislodged Attestation I attest that I discussed the nature of the procedure; its benefits; risks and complications; and alternatives (and the risks and benefits of such alternatives ), prior to the procedure, with the patient (or the patient's legal ambulatory service representative). I attest that, if there was a reasonable possibility of needing a blood transfusion, the patient (or the patient's legal ambulatory service representative) was given the [facility] standardized written summary, pursuant to the [place] Juanita Blood Safety Act ([place] Health and Safety Code # 1645, as amended). I attest that I re-evaluated the patient just prior to the surgery and that there has been no change in the patient's H&P, except as documented below: I spoke with patients Conservator on two occasions 12/27/2018. We discussed case and current events leading up to patients admission. Conservator reviewed patients chart and POLST and goals of care. Patient DNR except for trach, mechanical ventilation, artificial nutrition, and medications/chemical code. Patient is no CPR. We discussed recent trach being dislodged and patient being intubated. we discussed need for trach replacement as it was part of her goals of care. procedure medically necessary and part of patients care plan. patient improving since admission and given this will proceed with tracheostomy. Conservator agreed and consent obtained. Livan Dean December 28, 2018 09:18
--- NOTE | 2018-12-28 09:20 | General Progress Note ---
Assessment/Plan Problem List: (1) Acute and chronic respiratory failure ICD Codes: J96.20 - Acute and chronic respiratory failure, unspecified whether with hypoxia or hypercapnia SNOMED: 90138508 (2) Sepsis ICD Codes: A41.9 - Sepsis, unspecified organism SNOMED: 18835437 (3) HTN (hypertension) ICD Codes: I10 - Essential (primary) hypertension SNOMED: 63484651 (4) Seizure disorder ICD Codes: G40.909 - Epilepsy, unspecified, not intractable, without status epilepticus SNOMED: 526625711 (5) ATN (acute tubular necrosis) ICD Codes: N17.0 - Acute kidney failure with tubular necrosis SNOMED: 09750489 Status: unchanged Assessment/Plan: vent abx neph f/u cbc bmp am ltach eval Subjective Constitutional: Reports: weakness Allergies: Coded Allergies: ASPIRIN (Verified Allergy, Unknown, 07/07/17) All Systems: reviewed and negative except above Subjective intubated sedated in icu Objective Last 24 Hour Vital Signs Date Time Temp Pulse Resp B/P (MAP) Pulse Ox O2 Delivery O2 Flow Rate FiO2 12/28/18 08:30 59 23 35 12/28/18 08:25 35 12/28/18 08:00 Mechanical Ventilator 12/28/18 07:17 43 16 Mechanical Ventilator 40 12/28/18 07:16 43 16 40 12/28/18 06:00 60 16 130/93 (105) 97 12/28/18 05:07 58 16 40 12/28/18 05:00 57 16 121/56 (77) 100 12/28/18 04:00 40 12/28/18 04:00 Mechanical Ventilator 12/28/18 04:00 98.6 54 18 149/30 (69) 100 12/28/18 04:00 63 12/28/18 03:03 53 16 40 12/28/18 03:00 54 18 111/30 (57) 100 12/28/18 02:00 59 18 111/30 (57) 100 12/28/18 01:20 59 17 40 12/28/18 01:00 62 19 99/38 (58) 100 12/28/18 00:00 Mechanical Ventilator 12/28/18 00:00 40 12/28/18 00:00 59 12/28/18 00:00 97.9 52 17 99/38 (58) 100 12/27/18 23:00 61 21 40 12/27/18 23:00 53 17 126/80 (95) 100 12/27/18 22:00 54 18 109/70 (83) 100 12/27/18 22:00 109/70 12/27/18 21:00 56 18 121/86 (98) 100 12/27/18 20:58 60 18 40 12/27/18 20:00 Mechanical Ventilator 12/27/18 20:00 40 12/27/18 20:00 98.0 54 17 116/59 (78) 100 12/27/18 20:00 51 12/27/18 19:00 55 17 99/63 (75) 100 12/27/18 18:54 61 18 40 12/27/18 18:00 58 17 105/65 (78) 100 12/27/18 17:00 55 17 102/62 (75) 100 12/27/18 16:37 68 16 40 12/27/18 16:00 54 12/27/18 16:00 Mechanical Ventilator 12/27/18 16:00 98.7 58 16 101/65 (77) 100 12/27/18 16:00 40 12/27/18 15:20 49 16 40 12/27/18 15:00 60 17 95/62 (73) 100 12/27/18 14:00 62 16 99/65 (76) 100 12/27/18 13:29 60 18 40 12/27/18 13:00 59 16 102/64 (77) 100 12/27/18 12:00 40 12/27/18 12:00 Mechanical Ventilator 12/27/18 12:00 60 12/27/18 12:00 98.4 66 16 95/50 (65) 100 12/27/18 11:00 60 16 98/48 (65) 100 12/27/18 10:56 50 16 40 12/27/18 10:00 55 16 91/39 (56) 100 Intake and Output 12/27/18 12/28/18 19:00 07:00 Intake Total 1035 ml 1355 ml Output Total 510 ml 808 ml Balance 525 ml 547 ml Free Water 100 ml IV Total 375 ml 955 ml Tube Feeding 660 ml 300 ml Output Urine Total 410 ml 800 ml Stool Total 100 ml Chest Tube Drainage Total 8 ml Laboratory Tests 12/28/18 04:30: White Blood Count 12.7H, Red Blood Count 3.10L, Hemoglobin 9.2L, Hematocrit 28.2L, Mean Corpuscular Volume 91, Mean Corpuscular Hemoglobin 29.6, Mean Corpuscular Hemoglobin Concent 32.5, Red Cell Distribution Width 13.2, Platelet Count 313, Mean Platelet Volume 6.5, Neutrophils (%) (Auto) 66.6, Lymphocytes (% ) (Auto) 19.5L, Monocytes (%) (Auto) 6.7, Eosinophils (%) (Auto) 6.8H, Basophils (%) (Auto) 0.5, Prothrombin Time 12.0H, Prothromb Time International Ratio 1.1, Activated Partial Thromboplast Time 25, Sodium Level 147H, Potassium Level 3.9, Chloride Level 110H, Carbon Dioxide Level 31, Anion Gap 6, Blood Urea Nitrogen 13, Creatinine 0.9, Estimat Glomerular Filtration Rate , Glucose Level 97, Calcium Level 9.0, Phosphorus Level 2.4L, Magnesium Level 1.8, Total Bilirubin 0.3, Aspartate Amino Transf (AST/SGOT) 15, Alanine Aminotransferase ( ALT/SGPT) 20, Alkaline Phosphatase 66, Total Protein 7.7, Albumin 2.4L, Globulin 5.3, Albumin/Globulin Ratio 0.5L 12/28/18 08:05: Arterial Blood pH 7.398, Arterial Blood Partial Pressure CO2 46.5H, Arterial Blood Partial Pressure O2 146.5H, Arterial Blood HCO3 28.0H, Arterial Blood Oxygen Saturation 98.2, Arterial Blood Base Excess 2.7H, Luís Test Positive Height (Feet): 5 Height (Inches): 5.00 Weight (Pounds): 134 General Appearance: lethargic EENT: normal ENT inspection Neck: normal alignment Cardiovascular: normal peripheral pulses, normal rate, regular rhythm Respiratory/Chest: chest wall non-tender, lungs clear, normal breath sounds Abdomen: normal bowel sounds, non tender, soft Extremities: normal inspection Edema: no edema noted Arm (L), no edema noted Arm (R), no edema noted Leg (L), no edema noted Leg (R), no edema noted Pedal (L), no edema noted Pedal (R), no edema noted Generalized Neurologic: motor weakness Skin: normal pigmentation, warm/dry Rl WhiteMarilee DO December 28, 2018 09:20
--- NOTE | 2018-12-28 09:25 | Pulmonolgy Critical Care Note ---
Critical Care - Asmt/Plan Problems: (1) Acute and chronic respiratory failure (2) Pneumothorax (3) Hypernatremia (4) Seizure disorder (5) Chronic vegetative state (6) Feeding by G-tube (7) Cardiomyopathy Respiratory: monitor respiratory rate, adjust FIO2, CXR Cardiac: continue pressors, continue to monitor HR/BP Renal: F/U I&O, check electrolytes Infectious Disease: check cultures, continue antibiotics Gastrointestinal: continue feedings/current rate Endocrine: monitor blood sugar, continue sliding scale insulin Hematologic: monitor H/H, transfuse if hgb<8.5 Neurologic: PRN Ativan, keep patient comfortable Affect: PRN ativan Prophylaxis: Protonix Time Spent (Minutes): 40 Notes Reviewed: cardio, 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, consultants, disease case manager rnranch manager - Objective Last 24 Hour Vital Signs Date Time Temp Pulse Resp B/P (MAP) Pulse Ox O2 Delivery O2 Flow Rate FiO2 12/28/18 08:40 35 12/28/18 08:30 59 23 35 12/28/18 08:25 35 12/28/18 08:00 Mechanical Ventilator 12/28/18 08:00 40 12/28/18 07:17 43 16 Mechanical Ventilator 40 12/28/18 07:16 43 16 40 12/28/18 06:00 60 16 130/93 (105) 97 12/28/18 05:07 58 16 40 12/28/18 05:00 57 16 121/56 (77) 100 12/28/18 04:00 40 12/28/18 04:00 Mechanical Ventilator 12/28/18 04:00 98.6 54 18 149/30 (69) 100 12/28/18 04:00 63 12/28/18 03:03 53 16 40 12/28/18 03:00 54 18 111/30 (57) 100 12/28/18 02:00 59 18 111/30 (57) 100 12/28/18 01:20 59 17 40 12/28/18 01:00 62 19 99/38 (58) 100 12/28/18 00:00 Mechanical Ventilator 12/28/18 00:00 40 12/28/18 00:00 59 12/28/18 00:00 97.9 52 17 99/38 (58) 100 12/27/18 23:00 61 21 40 12/27/18 23:00 53 17 126/80 (95) 100 12/27/18 22:00 54 18 109/70 (83) 100 12/27/18 22:00 109/70 12/27/18 21:00 56 18 121/86 (98) 100 12/27/18 20:58 60 18 40 12/27/18 20:00 Mechanical Ventilator 12/27/18 20:00 40 12/27/18 20:00 98.0 54 17 116/59 (78) 100 12/27/18 20:00 51 12/27/18 19:00 55 17 99/63 (75) 100 12/27/18 18:54 61 18 40 12/27/18 18:00 58 17 105/65 (78) 100 12/27/18 17:00 55 17 102/62 (75) 100 12/27/18 16:37 68 16 40 12/27/18 16:00 54 12/27/18 16:00 Mechanical Ventilator 12/27/18 16:00 98.7 58 16 101/65 (77) 100 12/27/18 16:00 40 12/27/18 15:20 49 16 40 12/27/18 15:00 60 17 95/62 (73) 100 12/27/18 14:00 62 16 99/65 (76) 100 12/27/18 13:29 60 18 40 12/27/18 13:00 59 16 102/64 (77) 100 12/27/18 12:00 40 12/27/18 12:00 Mechanical Ventilator 12/27/18 12:00 60 12/27/18 12:00 98.4 66 16 95/50 (65) 100 12/27/18 11:00 60 16 98/48 (65) 100 12/27/18 10:56 50 16 40 12/27/18 10:00 55 16 91/39 (56) 100 Status: sedated Condition: critical HEENT: atraumatic Neck: full ROM Lungs: rales, rhonchi Heart: HR/BP stable Abdomen: soft, non-tender Extremities: no C/C/E Critical Care - Subjective ROS Limited/Unobtainable: Yes Condition: critical FI02: 35 Vent Support Breath Rate: 16 Vent Support Mode: AC Vent Tidal Volume: 500 Sputum Amount: Moderate PEEP: 5.0 PIP: 20 Tube Feeding Amount: 60 I&O: Intake and Output 12/27/18 12/28/18 19:00 07:00 Intake Total 1035 ml 1355 ml Output Total 510 ml 808 ml Balance 525 ml 547 ml Free Water 100 ml IV Total 375 ml 955 ml Tube Feeding 660 ml 300 ml Output Urine Total 410 ml 800 ml Stool Total 100 ml Chest Tube Drainage Total 8 ml ET-Tube: 7.0 ET Position: 24 Labs: Laboratory Tests Test 12/28/18 04:30 12/28/18 08:05 White Blood Count 12.7 K/UL (4.8-10.8) H Red Blood Count 3.10 M/UL (4.20-5.40) L Hemoglobin 9.2 G/DL (12.0-16.0) L Hematocrit 28.2 % (37.0-47.0) L Mean Corpuscular Volume 91 FL (80-99) Mean Corpuscular Hemoglobin 29.6 PG (27.0-31.0) Mean Corpuscular Hemoglobin Concent 32.5 G/DL (32.0-36.0) Red Cell Distribution Width 13.2 % (11.6-14.8) Platelet Count 313 K/UL (150-450) Mean Platelet Volume 6.5 FL (6.5-10.1) Neutrophils (%) (Auto) 66.6 % (45.0-75.0) Lymphocytes (%) (Auto) 19.5 % (20.0-45.0) L Monocytes (%) (Auto) 6.7 % (1.0-10.0) Eosinophils (%) (Auto) 6.8 % (0.0-3.0) H Basophils (%) (Auto) 0.5 % (0.0-2.0) Prothrombin Time 12.0 SEC (9.30-11.50) H Prothromb Time International Ratio 1.1 (0.9-1.1) Activated Partial Thromboplast Time 25 SEC (23-33) Sodium Level 147 MMOL/L (136-145) H Potassium Level 3.9 MMOL/L (3.5-5.1) Chloride Level 110 MMOL/L (98-107) H Carbon Dioxide Level 31 MMOL/L (21-32) Anion Gap 6 mmol/L (5-15) Blood Urea Nitrogen 13 mg/dL (7-18) Creatinine 0.9 MG/DL (0.55-1.30) Estimat Glomerular Filtration Rate mL/min (>60) Glucose Level 97 MG/DL (74-106) Calcium Level 9.0 MG/DL (8.5-10.1) Phosphorus Level 2.4 MG/DL (2.5-4.9) L Magnesium Level 1.8 MG/DL (1.8-2.4) Total Bilirubin 0.3 MG/DL (0.2-1.0) Aspartate Amino Transf (AST/SGOT) 15 U/L (15-37) Alanine Aminotransferase (ALT/SGPT) 20 U/L (12-78) Alkaline Phosphatase 66 U/L (46-116) Total Protein 7.7 G/DL (6.4-8.2) Albumin 2.4 G/DL (3.4-5.0) L Globulin 5.3 g/dL Albumin/Globulin Ratio 0.5 (1.0-2.7) L Arterial Blood pH 7.398 (7.350-7.450) Arterial Blood Partial Pressure CO2 46.5 mmHg (35.0-45.0) H Arterial Blood Partial Pressure O2 146.5 mmHg (75.0-100.0) H Arterial Blood HCO3 28.0 mmol/L (22.0-26.0) H Arterial Blood Oxygen Saturation 98.2 % (95-100) Arterial Blood Base Excess 2.7 (-2-2) H Luís Test Positive Sue Yu MD December 28, 2018 09:25
[2018-12-28] MEDS ORDERED: NS Irrig 1000ml ONE (09:30)
[2018-12-28] MEDS ORDERED: Sterile Water Irrig 1000ml IRRIG ONE (09:30)
[2018-12-28] MEDS ORDERED: LR 1000ml ONE (09:30)
[2018-12-28] MEDS ORDERED: Lidocaine 1% 10mg/ml/Epi 0.005mg/ml 30ml vial INJ ONE (09:35)
--- NOTE | 2018-12-28 09:55 | NUR ---
NURSE NOTES: pt off unit to O.R alexia RShadyN and R.T. Report/SBAR given to Carlos León pt in no acute distress.VSS
--- NOTE | 2018-12-28 10:11 | Immediate Post-Op Evaluation ---
Immediate Post-Op Evalulation Immediate Post-Op Evalulation Procedure: Tracheostomy Date of Evaluation: December 28, 2018 Time of Evaluation: 10:42 IV Fluids: 200 LR Blood Products: 0 Estimated Blood Loss: 10 Urinary Output: 0 Blood Pressure Systolic: 135 Blood Pressure Diastolic: 61 Pulse Rate: 81 Respiratory Rate: 15 - Mech Vent O2 Sat by Pulse Oximetry: 100 Temperature (Fahrenheit): 97.6 Pain Score (1-10): 0 Nausea: No Vomiting: No Complications 0 Patient Status: no response, patent, ventilated, none Hydration Status: adequate Shady Maria MD December 28, 2018 10:11
--- NOTE | 2018-12-28 10:25 | NUR ---
NURSE NOTES: pt returned from surgery. VSS. Stewart #8. trach to vent. pt not awake, responds to deep pain. bilateral chest tubes in tact. secured to floor, no kinks. clamps at bedside. rectal tube intact. Smith connected draining yellow urine. trach dressing and ties soiled with sanguinous drainage. will continue to monitor pt.
--- NOTE | 2018-12-28 11:40 | Diagnostic Imaging Report ---
Indication: Dyspnea Technique: One view of the chest Comparison: 12/27/2018 Findings: Bilateral chest tubes, endotracheal tube remain in good position. There is also tubing over the lower chest noted. No residual subcutaneous emphysema noted. No pneumothorax. Lungs and pleural spaces are largely except for very mild interstitial prominence which is unchanged. Impression: Resolved subcutaneous emphysema. Otherwise essentially unchanged over one day
--- NOTE | 2018-12-28 11:46 | NUR ---
NURSE NOTES: called radiology to inform that consent obtained for PICC.
--- NOTE | 2018-12-28 11:57 | NUR ---
RD ASSESSMENT & RECOMMENDATIONS SEE CARE ACTIVITY FOR COMPLETE ASSESSMENT DAILY ESTIMATED NEEDS: Needs based on Critical Care, wound 63kg 22-28 kcals/kg 9296-6885 total kcals 1.25-2 g protein/kg 78-126 g total protein 25-30 mL/kg 2892-9349 total fluid mLs NUTRITION DIAGNOSIS: * Swallowing difficulty R/T respiratory status, dysphagia as evidenced by pt is trach/vent + PEG dep, on GT feeding. * Increased kcal/prot needs R/T wound healing as evidenced by pt admitted w/ full thickness pressure injury to R lateral malleolus and resolving pressure injury to L lateral malleolus CURRENT TF:NPO for procedure at this time ENTERAL NUTRITION RECOMMENDATIONS: Glucerna 1.2 @ 55ml/hr x 24 hrs + Prosource 1pkt QD to provide 1320ml, 1584kcal, 79g + 11g prot, 1065ml free water - PT IS NO LONGER ON SYNTHROID : rec to change rate and run time to 55ml/hr x 24 hrs - Add Prosource 1pkt daily to better meet protein needs. - HOB >30 degrees/ water flushes per MD - TF @ goal provides 100% of RDI. ADDITIONAL RECOMMENDATIONS: 1) Calibrated bedscale wts 2) Monitor lytes, replete as needed 3) Monitor BGs closely, need for hypoglycemic agents (BG 245 upon adm, now improved) 4) Wound healing: continue Vit C, add Tommie 1pkt BID 5) Consider change IVF: pt on NS IVF w/ hypernatremia
--- NOTE | 2018-12-28 12:20 | NUR ---
NURSE NOTES: Pt resting in bed. Opens eyes to shaking. pt cleaned and repositioned. oral care and suction provided. secretions sanguinous and thick. moderate. MD Gama here to see pt. Was informed of phos level of 2.4, no new orders. MD Dean here to see pt. Will clarify with primary MD White regarding code status. pt 10/07 grimace, irritable Tylenol administer for mild pain.
[2018-12-28] MEDS: Acetaminophen 650mg/20.3ml GT PRN ×2 (12:36→17:00)
--- NOTE | 2018-12-28 13:29 | Brief Operative Note ---
Immediate Post Operative Note Operative Note Pre-op Diagnosis: respiratory insufficiency malpositioned/ malfunctioning prior trach dislodged Procedure: tracheostomy bronchoscopy Post-op Diagnosis: same as pre-op Surgeon: apurva Anesthesiologist: kristen Anesthesia: general, local Specimen: none Complications: none Condition: stable Fluids: see records Estimated Blood Loss: minimal Drains: none Implant(s) used?: No Livan Dean December 28, 2018 13:29
[2018-12-28] MEDS ORDERED: Lidocaine 1% Plain 30 ml INJ PRN (13:36)
[2018-12-28] MEDS ORDERED: Heparin1,000 units/500ml Premix(Conc:2 units/ml) INJ PRN (13:36)
--- NOTE | 2018-12-28 13:47 | NUR ---
NURSE NOTES: PREPPING PT FOR PICC PLACEMENT BP 99/72, HR 72, RR 21, 02SAT 100%. PT IN NO ACUTE DISTRESS. WILL CONTINUE TO MONITOR PT.
--- NOTE | 2018-12-28 14:36 | NUR ---
NURSE NOTES: PT VSS. AWAITING RADIOLOGY CONFIRMATION OF PICC PLACEMENT.
--- NOTE | 2018-12-28 15:14 | NUR ---
NURSE NOTES: ct rachel called to check on status. pt stable. awake and procedures complete this am. will call conservator for details.
--- NOTE | 2018-12-28 15:24 | Diagnostic Imaging Report ---
Indications: Needs long-term IV access Technique: Procedure performed at bedside. Procedural timeout performed. Ultrasound confirms patent compressible left basilic vein. Total sterile technique, including sterile probe cover and sterile gel, sterile gloves, hand hygiene, hat, mask,, sterile gown, large sterile drape, and preparation with 2% chlorhexidine utilized. Local anesthesia with 1% lidocaine. Under real-time ultrasound guidance, puncture basilic vein using 21-gauge needle, passage 0.018 guidewire, exchange for 4 Uzbek peel-away sheath. 4 Uzbek Bard dual-lumen power PICC cut to 47 cm. It was inserted through the peel-away sheath. Peel-away sheath and guidewire removed. Catheter fixed to the skin. Both catheter ports aspirated and flushed. Patient tolerated procedure well, without immediate complication. Followup chest x-ray obtained, documents catheter tip position at the high right atrium Impression: Successful bedside placement of left arm PICC under sonographic guidance, as described above.
--- NOTE | 2018-12-28 15:39 | NUR ---
NURSE NOTES: called MD White f/jair diet order. awaitng call back
--- NOTE | 2018-12-28 15:44 | NUR ---
NURSE NOTES: Called and left message for MD Skinner regarding diet order. Awaiting call back. pt remains NPO.
--- NOTE | 2018-12-28 16:12 | General Progress Note ---
Assessment/Plan Status: unchanged Assessment/Plan: Assessment and Recs: # Anemia of chronic disease due to underlying chronic medical issues, multifactorial --> Anemia workup has been ordered, rule out gi bleed --> ferritin is 610 --> No evidence of hemolysis is noted, peripheral smear has been reviewed. --> Hgb goal >7. Transfuse prn. --> Epogen or iron at this time is not particularly indicated --> Medications have been reviewed --> evaluate with Gi team prn --> transfuse if hgb is < 7 (trend CBC daily) --> stool ob is negative --> transfused with 2 units 12/23 # Leukocytosis on admission has been 10-16k --> smear has beenr reviewed, no e/o blasts --> on antibiotics # Acute on chronic Renal failure --> per renal --> cr has improved # Acute on chronic respiratory failure s/p trach with revision, s/p trach 12/28 --> Pneumothorax s/p chest tube --> trach done 12/28 # UTI --> on abx --> per id # HypoAlbuminemia # HTN # PEG with Fecal impaction # Malfunction of gastrostomy tube The timing of this note does not necessarily reflect the time of the patient was seen. Greatly appreciate consultation! Subjective Neurologic/Psychiatric: Denies: no symptoms, anxiety, depressed, emotional problems, headache, numbness, paresthesia, pre-existing deficit, seizure, tingling, tremors, weakness, other Endocrine: Denies: no symptoms, excessive sweating, flushing, intolerance to cold, intolerance to heat, increased hunger, increased thirst, increased urine, unexplained weight gain, unexplained weight loss, other Hematologic/Lymphatic: Denies: no symptoms, anemia, easy bleeding, easy bruising, other Allergies: Coded Allergies: ASPIRIN (Verified Allergy, Unknown, 07/07/17) Subjective 12/26: no events, remains sedated, in the icu, on vent 12/27: no events noted, no f/c, considering ltach placement 12/28: trach completed today with bronch, no f/c Objective Last 24 Hour Vital Signs Date Time Temp Pulse Resp B/P (MAP) Pulse Ox O2 Delivery O2 Flow Rate FiO2 12/28/18 16:00 35 12/28/18 16:00 Mechanical Ventilator 12/28/18 15:06 60 16 35 12/28/18 13:15 70 16 35 12/28/18 13:00 78 16 99/72 (81) 100 12/28/18 12:00 64 12/28/18 12:00 35 12/28/18 12:00 98.7 65 22 111/94 (100) 100 12/28/18 12:00 Mechanical Ventilator 12/28/18 11:00 76 16 187/59 (101) 100 12/28/18 10:25 81 15 100 12/28/18 10:24 78 16 35 12/28/18 09:00 54 16 141/58 (85) 100 12/28/18 08:40 35 12/28/18 08:30 59 23 35 12/28/18 08:25 35 12/28/18 08:00 98.8 59 19 150/100 (117) 100 12/28/18 08:00 Mechanical Ventilator 12/28/18 08:00 40 12/28/18 08:00 54 12/28/18 07:17 43 16 Mechanical Ventilator 40 12/28/18 07:16 43 16 40 12/28/18 07:00 51 16 119/46 (70) 100 12/28/18 06:00 60 16 130/93 (105) 97 12/28/18 05:07 58 16 40 12/28/18 05:00 57 16 121/56 (77) 100 12/28/18 04:00 40 12/28/18 04:00 Mechanical Ventilator 12/28/18 04:00 98.6 54 18 149/30 (69) 100 12/28/18 04:00 63 12/28/18 03:03 53 16 40 12/28/18 03:00 54 18 111/30 (57) 100 12/28/18 02:00 59 18 111/30 (57) 100 12/28/18 01:20 59 17 40 12/28/18 01:00 62 19 99/38 (58) 100 12/28/18 00:00 Mechanical Ventilator 12/28/18 00:00 40 12/28/18 00:00 59 12/28/18 00:00 97.9 52 17 99/38 (58) 100 12/27/18 23:00 61 21 40 12/27/18 23:00 53 17 126/80 (95) 100 12/27/18 22:00 54 18 109/70 (83) 100 12/27/18 22:00 109/70 12/27/18 21:00 56 18 121/86 (98) 100 12/27/18 20:58 60 18 40 12/27/18 20:00 Mechanical Ventilator 12/27/18 20:00 40 12/27/18 20:00 98.0 54 17 116/59 (78) 100 12/27/18 20:00 51 12/27/18 19:00 55 17 99/63 (75) 100 12/27/18 18:54 61 18 40 12/27/18 18:00 58 17 105/65 (78) 100 12/27/18 17:00 55 17 102/62 (75) 100 12/27/18 16:37 68 16 40 Intake and Output 12/27/18 12/28/18 19:00 07:00 Intake Total 1035 ml 1355 ml Output Total 510 ml 808 ml Balance 525 ml 547 ml Free Water 100 ml IV Total 375 ml 955 ml Tube Feeding 660 ml 300 ml Output Urine Total 410 ml 800 ml Stool Total 100 ml Chest Tube Drainage Total 8 ml Laboratory Tests 12/28/18 04:30: White Blood Count 12.7H, Red Blood Count 3.10L, Hemoglobin 9.2L, Hematocrit 28.2L, Mean Corpuscular Volume 91, Mean Corpuscular Hemoglobin 29.6, Mean Corpuscular Hemoglobin Concent 32.5, Red Cell Distribution Width 13.2, Platelet Count 313, Mean Platelet Volume 6.5, Neutrophils (%) (Auto) 66.6, Lymphocytes (% ) (Auto) 19.5L, Monocytes (%) (Auto) 6.7, Eosinophils (%) (Auto) 6.8H, Basophils (%) (Auto) 0.5, Prothrombin Time 12.0H, Prothromb Time International Ratio 1.1, Activated Partial Thromboplast Time 25, Sodium Level 147H, Potassium Level 3.9, Chloride Level 110H, Carbon Dioxide Level 31, Anion Gap 6, Blood Urea Nitrogen 13, Creatinine 0.9, Estimat Glomerular Filtration Rate , Glucose Level 97, Calcium Level 9.0, Phosphorus Level 2.4L, Magnesium Level 1.8, Total Bilirubin 0.3, Aspartate Amino Transf (AST/SGOT) 15, Alanine Aminotransferase ( ALT/SGPT) 20, Alkaline Phosphatase 66, Total Protein 7.7, Albumin 2.4L, Globulin 5.3, Albumin/Globulin Ratio 0.5L 12/28/18 08:05: Arterial Blood pH 7.398, Arterial Blood Partial Pressure CO2 46.5H, Arterial Blood Partial Pressure O2 146.5H, Arterial Blood HCO3 28.0H, Arterial Blood Oxygen Saturation 98.2, Arterial Blood Base Excess 2.7H, Luís Test Positive Height (Feet): 5 Height (Inches): 5.00 Weight (Pounds): 134 Objective p02 EP Interpretation: reviewed, normal General Appearance: severe distress, lethargic, obese, Stupor Head: atraumatic Eyes: bilateral eye normal inspection ENT: moist mucus membranes Neck: supple Respiratory: respiratory distress, ++ trach ++ intubated Cardiovascular: tachycardia Gastrointestinal: distended - G-tube in place Genitourinary: no CVA tenderness Musculoskeletal: other - Contractures lower extremity Neurologic: other - Unable to assess due to patient poor mental status Psychiatric: other - Unable to assess patient unconscious Micha Torres MD December 28, 2018 16:12
--- NOTE | 2018-12-28 16:40 | NUR ---
NURSE NOTES: Received order to restart tube feeding Glucerna 1.2 @60ml/hr
--- NOTE | 2018-12-28 17:08 | Nephrology Progress Note ---
Assessment/Plan Problem List: (1) Acute on chronic renal failure (2) Acute and chronic respiratory failure (3) Pneumothorax (4) Cardiomyopathy Assessment acute on chronic Renal failure Acute on chronic respiratory failure Pneumothorax Anemia UTI HypoAlbuminemia HTN PEG Sz Disorder Cardiomyopathy Full code status ! . Plan start Midodrine GT D5W one liter K Phos lower amiodarone dose stop Hydrate- stop synthroid- very low TSH Monitor renal parameters Anemia bryant antibiotics avoid nephrotoxics optimize cardiac and pulm status per orders Subjective ROS Limited/Unobtainable: Yes Objective Objective Last 24 Hour Vital Signs Date Time Temp Pulse Resp B/P (MAP) Pulse Ox O2 Delivery O2 Flow Rate FiO2 12/28/18 16:00 35 12/28/18 16:00 98.8 47 16 109/47 (67) 100 12/28/18 16:00 61 12/28/18 16:00 Mechanical Ventilator 12/28/18 15:06 60 16 35 12/28/18 15:00 60 16 80/41 (54) 100 12/28/18 14:00 75 20 86/36 (53) 100 12/28/18 13:15 70 16 35 12/28/18 13:00 78 16 99/72 (81) 100 12/28/18 12:00 64 12/28/18 12:00 35 12/28/18 12:00 98.7 65 22 111/94 (100) 100 12/28/18 12:00 Mechanical Ventilator 12/28/18 11:00 76 16 187/59 (101) 100 12/28/18 10:25 81 15 100 12/28/18 10:24 78 16 35 12/28/18 09:00 54 16 141/58 (85) 100 12/28/18 08:40 35 12/28/18 08:30 59 23 35 12/28/18 08:25 35 12/28/18 08:00 98.8 59 19 150/100 (117) 100 12/28/18 08:00 Mechanical Ventilator 12/28/18 08:00 40 12/28/18 08:00 54 12/28/18 07:17 43 16 Mechanical Ventilator 40 12/28/18 07:16 43 16 40 12/28/18 07:00 51 16 119/46 (70) 100 12/28/18 06:00 60 16 130/93 (105) 97 12/28/18 05:07 58 16 40 12/28/18 05:00 57 16 121/56 (77) 100 12/28/18 04:00 40 12/28/18 04:00 Mechanical Ventilator 12/28/18 04:00 98.6 54 18 149/30 (69) 100 12/28/18 04:00 63 12/28/18 03:03 53 16 40 12/28/18 03:00 54 18 111/30 (57) 100 12/28/18 02:00 59 18 111/30 (57) 100 12/28/18 01:20 59 17 40 12/28/18 01:00 62 19 99/38 (58) 100 12/28/18 00:00 Mechanical Ventilator 12/28/18 00:00 40 12/28/18 00:00 59 12/28/18 00:00 97.9 52 17 99/38 (58) 100 12/27/18 23:00 61 21 40 12/27/18 23:00 53 17 126/80 (95) 100 12/27/18 22:00 54 18 109/70 (83) 100 12/27/18 22:00 109/70 12/27/18 21:00 56 18 121/86 (98) 100 12/27/18 20:58 60 18 40 12/27/18 20:00 Mechanical Ventilator 12/27/18 20:00 40 12/27/18 20:00 98.0 54 17 116/59 (78) 100 12/27/18 20:00 51 12/27/18 19:00 55 17 99/63 (75) 100 12/27/18 18:54 61 18 40 12/27/18 18:00 58 17 105/65 (78) 100 12/27/18 17:00 55 17 102/62 (75) 100 Intake and Output 12/27/18 12/28/18 18:59 06:59 Intake Total 960 ml 1415 ml Output Total 540 ml 763 ml Balance 420 ml 652 ml Free Water 100 ml IV Total 300 ml 955 ml Tube Feeding 660 ml 360 ml Output Urine Total 440 ml 755 ml Stool Total 100 ml Chest Tube Drainage Total 8 ml Laboratory Tests 12/28/18 04:30: White Blood Count 12.7H, Red Blood Count 3.10L, Hemoglobin 9.2L, Hematocrit 28.2L, Mean Corpuscular Volume 91, Mean Corpuscular Hemoglobin 29.6, Mean Corpuscular Hemoglobin Concent 32.5, Red Cell Distribution Width 13.2, Platelet Count 313, Mean Platelet Volume 6.5, Neutrophils (%) (Auto) 66.6, Lymphocytes (% ) (Auto) 19.5L, Monocytes (%) (Auto) 6.7, Eosinophils (%) (Auto) 6.8H, Basophils (%) (Auto) 0.5, Prothrombin Time 12.0H, Prothromb Time International Ratio 1.1, Activated Partial Thromboplast Time 25, Sodium Level 147H, Potassium Level 3.9, Chloride Level 110H, Carbon Dioxide Level 31, Anion Gap 6, Blood Urea Nitrogen 13, Creatinine 0.9, Estimat Glomerular Filtration Rate , Glucose Level 97, Calcium Level 9.0, Phosphorus Level 2.4L, Magnesium Level 1.8, Total Bilirubin 0.3, Aspartate Amino Transf (AST/SGOT) 15, Alanine Aminotransferase ( ALT/SGPT) 20, Alkaline Phosphatase 66, Total Protein 7.7, Albumin 2.4L, Globulin 5.3, Albumin/Globulin Ratio 0.5L 12/28/18 08:05: Arterial Blood pH 7.398, Arterial Blood Partial Pressure CO2 46.5H, Arterial Blood Partial Pressure O2 146.5H, Arterial Blood HCO3 28.0H, Arterial Blood Oxygen Saturation 98.2, Arterial Blood Base Excess 2.7H, Luís Test Positive Height (Feet): 5 Height (Inches): 5.00 Weight (Pounds): 134 General Appearance: no apparent distress Cardiovascular: arrhythmia Respiratory/Chest: decreased breath sounds, other - chest tubes Abdomen: soft, distended Objective no change Tono Case MD December 28, 2018 17:08
--- NOTE | 2018-12-28 18:00 | NUR ---
NURSE NOTES: Pt resting in bed. sinus ruthann 40's. pt opens eyes to shaking and light pain. pt repositioned. oral care and suction provided, trach dressing serous drainage. secretions dark cook and thick. pt 2/10 grimace, irritable Tylenol administer for mild pain.
[2018-12-28] MEDS: Midodrine 10mg tab GT SCH (18:14)
--- NOTE | 2018-12-28 18:50 | NUR ---
RESPIRATORY NOTE: Received pt on AC 16, 500VT, 35%, PEEP +5. Pt is trach-dependent w/ a cuffed, Shiley 8 tube. Pt asleep/disoriented. B/S kee. rhonchi, sxn small to moderate amounts of thick, cook-brown secretions w/ occasional blood/pink clots. Vent plugged into red outlet, ambubag at bedside. Pt resting comfortably, in no apparent distress at this time. Will continue to monitor.
--- NOTE | 2018-12-28 19:29 | NUR ---
HAND-OFF: Report given to RONDA Iverson. pt in no acute distress.
--- NOTE | 2018-12-28 19:30 | NUR ---
NURSE NOTES: Endorsement received from RONDA Mar. Patient with spontaneous eyes opening, does not track. Withdraws to pain. Shiley 8.0 to vent. no active bleeding from the site. AC 16, Vt 500, PEEP 5, 35% FiO2. GT patent and intact. Ongoing Glucerna 1.2 at 50ml/hr with goal of 60ml/hr. No residual. With bilateral water seal drainage, secured. Clamps at bedside. Left upper arm PICC, flushing well. With rectal tube draining per gravity. Smith catheter connected to urimeter. Head of bed elevated. Bed alarm on. Bed locked and in low position. On P200 mattress. On seizure precautions.
--- NOTE | 2018-12-28 19:30 | Infectious Diseases Prog Note ---
Assessment/Plan Assessment/Plan Assessment: Sepsis- Sp Probable PNA SCx : PSA and H. Influenza 12/28 CXR: Bilateral chest tubes, endotracheal tube remain in good position. There is also tubing over the lower chest noted. 12/24 CXR Stable satisfactory position of endotracheal tube. Bilateral chest tubes remain in place Bacteremia : CoNS ( STAPHYLOCOCCUS AURICULARIS and Epid ) m/l contaminant - 2d ECHO : no Veg Afebrile Leukocytosis, improving Hx of recurrent PNA (VAP/HAP) -10/2017 MDR PSA, H. flu -sp cx MDR ACB 07/2017, s/p Rx PnTx , Bl chest tube JAMES, improving Acute respiratory failure, failed trach and now intubated 12/21/18 Hypertension. History of seizure disorder Ventilator-dependent respiratory failure History of lower extremity DVT History of PEG and trach placement dementia quadriplegic COPD [facility] resident Plan: -Continue Cefepime d# 12/05 12/26 Sp IV Vancomycin # /12/25 Sp Amikacin # 3 and Zosyn # 4 -f/u cx -Monitor CBC/CMP, temperatures -ETT care -aspiration precautions Subjective Allergies: Coded Allergies: ASPIRIN (Verified Allergy, Unknown, 07/07/17) Subjective pt in ICU Objective Vital Signs Last 24 Hour Vital Signs Date Time Temp Pulse Resp B/P (MAP) Pulse Ox O2 Delivery O2 Flow Rate FiO2 12/28/18 19:00 46 16 99/46 (63) 100 12/28/18 18:48 51 17 35 12/28/18 18:00 46 16 128/41 (70) 100 12/28/18 17:00 52 16 128/43 (71) 100 12/28/18 16:57 56 17 35 12/28/18 16:00 35 12/28/18 16:00 98.8 47 16 109/47 (67) 100 12/28/18 16:00 61 12/28/18 16:00 Mechanical Ventilator 12/28/18 15:06 60 16 35 12/28/18 15:00 60 16 80/41 (54) 100 12/28/18 14:00 75 20 86/36 (53) 100 12/28/18 13:15 70 16 35 12/28/18 13:00 78 16 99/72 (81) 100 12/28/18 12:00 64 12/28/18 12:00 35 12/28/18 12:00 98.7 65 22 111/94 (100) 100 12/28/18 12:00 Mechanical Ventilator 12/28/18 11:00 76 16 187/59 (101) 100 12/28/18 10:25 81 15 100 12/28/18 10:24 78 16 35 12/28/18 09:00 54 16 141/58 (85) 100 12/28/18 08:40 35 12/28/18 08:30 59 23 35 12/28/18 08:25 35 12/28/18 08:00 98.8 59 19 150/100 (117) 100 12/28/18 08:00 Mechanical Ventilator 12/28/18 08:00 40 12/28/18 08:00 54 12/28/18 07:17 43 16 Mechanical Ventilator 40 12/28/18 07:16 43 16 40 12/28/18 07:00 51 16 119/46 (70) 100 12/28/18 06:00 60 16 130/93 (105) 97 12/28/18 05:07 58 16 40 12/28/18 05:00 57 16 121/56 (77) 100 12/28/18 04:00 40 12/28/18 04:00 Mechanical Ventilator 12/28/18 04:00 98.6 54 18 149/30 (69) 100 12/28/18 04:00 63 12/28/18 03:03 53 16 40 12/28/18 03:00 54 18 111/30 (57) 100 12/28/18 02:00 59 18 111/30 (57) 100 12/28/18 01:20 59 17 40 12/28/18 01:00 62 19 99/38 (58) 100 12/28/18 00:00 Mechanical Ventilator 12/28/18 00:00 40 12/28/18 00:00 59 12/28/18 00:00 97.9 52 17 99/38 (58) 100 12/27/18 23:00 61 21 40 12/27/18 23:00 53 17 126/80 (95) 100 12/27/18 22:00 54 18 109/70 (83) 100 12/27/18 22:00 109/70 12/27/18 21:00 56 18 121/86 (98) 100 12/27/18 20:58 60 18 40 12/27/18 20:00 Mechanical Ventilator 12/27/18 20:00 40 12/27/18 20:00 98.0 54 17 116/59 (78) 100 12/27/18 20:00 51 Height (Feet): 5 Height (Inches): 5.00 Weight (Pounds): 134 HEENT: anicteric Respiratory/Chest: rhonchi - bilaterally Cardiovascular: regularly irregular Abdomen: no organomegaly Laboratory Tests Test 12/28/18 04:30 12/28/18 08:05 White Blood Count 12.7 K/UL (4.8-10.8) H Red Blood Count 3.10 M/UL (4.20-5.40) L Hemoglobin 9.2 G/DL (12.0-16.0) L Hematocrit 28.2 % (37.0-47.0) L Mean Corpuscular Volume 91 FL (80-99) Mean Corpuscular Hemoglobin 29.6 PG (27.0-31.0) Mean Corpuscular Hemoglobin Concent 32.5 G/DL (32.0-36.0) Red Cell Distribution Width 13.2 % (11.6-14.8) Platelet Count 313 K/UL (150-450) Mean Platelet Volume 6.5 FL (6.5-10.1) Neutrophils (%) (Auto) 66.6 % (45.0-75.0) Lymphocytes (%) (Auto) 19.5 % (20.0-45.0) L Monocytes (%) (Auto) 6.7 % (1.0-10.0) Eosinophils (%) (Auto) 6.8 % (0.0-3.0) H Basophils (%) (Auto) 0.5 % (0.0-2.0) Prothrombin Time 12.0 SEC (9.30-11.50) H Prothromb Time International Ratio 1.1 (0.9-1.1) Activated Partial Thromboplast Time 25 SEC (23-33) Sodium Level 147 MMOL/L (136-145) H Potassium Level 3.9 MMOL/L (3.5-5.1) Chloride Level 110 MMOL/L (98-107) H Carbon Dioxide Level 31 MMOL/L (21-32) Anion Gap 6 mmol/L (5-15) Blood Urea Nitrogen 13 mg/dL (7-18) Creatinine 0.9 MG/DL (0.55-1.30) Estimat Glomerular Filtration Rate mL/min (>60) Glucose Level 97 MG/DL (74-106) Calcium Level 9.0 MG/DL (8.5-10.1) Phosphorus Level 2.4 MG/DL (2.5-4.9) L Magnesium Level 1.8 MG/DL (1.8-2.4) Total Bilirubin 0.3 MG/DL (0.2-1.0) Aspartate Amino Transf (AST/SGOT) 15 U/L (15-37) Alanine Aminotransferase (ALT/SGPT) 20 U/L (12-78) Alkaline Phosphatase 66 U/L (46-116) Total Protein 7.7 G/DL (6.4-8.2) Albumin 2.4 G/DL (3.4-5.0) L Globulin 5.3 g/dL Albumin/Globulin Ratio 0.5 (1.0-2.7) L Arterial Blood pH 7.398 (7.350-7.450) Arterial Blood Partial Pressure CO2 46.5 mmHg (35.0-45.0) H Arterial Blood Partial Pressure O2 146.5 mmHg (75.0-100.0) H Arterial Blood HCO3 28.0 mmol/L (22.0-26.0) H Arterial Blood Oxygen Saturation 98.2 % (95-100) Arterial Blood Base Excess 2.7 (-2-2) H Luís Test Positive Current Medications Medications (Trade) Dose Ordered Sig/Torsten Route PRN Reason Start Time Stop Time Status Last Admin Dose Admin Acetaminophen (Tylenol) 650 mg Q4H PRN GT Mild Pain/Temp > 100.5 12/23/18 13:15 01/22/19 13:14 12/28/18 17:00 Amiodarone HCl (Cordarone) 100 mg DAILY GT 12/25/18 09:00 01/21/19 08:59 12/26/18 08:56 Ascorbic Acid (Vitamin C) 250 mg DAILY GT 12/24/18 09:00 01/22/19 08:59 12/27/18 08:19 Cefepime HCl 2 gm/ Dextrose 55 ml @ 110 mls/hr Q24H IVPB 12/27/18 04:00 01/03/19 03:59 12/28/18 04:39 Chlorhexidine Gluconate (Mariah-Hex 2%) 1 applic DAILY@2000 TOPIC 12/25/18 20:00 01/24/19 19:59 12/27/18 20:24 Docusate Sodium (Colace) 100 mg TWICE A DAY ORAL 12/24/18 09:00 01/23/19 08:59 12/28/18 17:00 Heparin Sodium (Porcine) (Heparin 5000 units/ml) 5,000 units EVERY 12 HOURS SUBQ 12/21/18 21:00 01/20/19 20:59 12/27/18 08:20 Heparin Sodium/ Sodium Chloride (Heparin 1000 units/500ml Premix) 1,000 unit ONCE PRN INJ LINE 12/28/18 13:36 12/28/18 23:59 Lactulose (Cephulac) 20 gm THREE TIMES A DAY ORAL 12/24/18 09:00 01/23/19 08:59 12/28/18 17:00 Lansoprazole (Prevacid) 30 mg BID GT 12/28/18 17:07 01/27/19 17:06 12/28/18 18:14 Lidocaine HCl (Xylocaine 1% 30ml) 30 ml ONCE PRN INJ LINE 12/28/18 13:36 12/28/18 23:59 Lorazepam (Ativan 2mg/ml 1ml) 2 mg Q2H PRN IV For Anxiety 12/21/18 20:45 12/28/18 20:44 12/24/18 20:12 Midodrine (Pro-Amatine) 10 mg THREE TIMES A DAY GT 12/28/18 18:00 01/27/19 17:59 12/28/18 18:14 Morphine Sulfate (Morphine Sulfate) 4 mg Q4H PRN IVP Severe Pain (Pain Scale 7-10) 12/21/18 20:45 12/28/18 20:44 12/23/18 20:48 Norepinephrine Bitartrate 4 mg/ Dextrose 254 ml @ 0 mls/hr Q24H IV 12/21/18 22:00 01/20/19 21:59 Ondansetron HCl (Zofran) 4 mg Q6H PRN IVP Nausea & Vomiting 12/21/18 20:45 01/20/19 20:44 Polyethylene Glycol (Miralax) 17 gm DAILYPRN PRN GT Constipation 12/23/18 13:30 01/20/19 20:44 Ricky Slater MD December 28, 2018 19:30
[2018-12-28] MEDS: Dyna-Hex 2% Top Sol 2oz TOPIC SCH (20:30)
--- NOTE | 2018-12-28 21:00 | NUR ---
NURSE NOTES: Patient tolerating feeding. Increased to goal rate of 60ml/hr.
--- NOTE | 2018-12-28 22:00 | Operative Note - Dictated ---
DATE OF OPERATION: 12/28/2018 PREOPERATIVE DIAGNOSES: 1. Respiratory insufficiency. 2. Dislodged tracheostomy tube. 3. Acute tracheostomy complication. POSTOPERATIVE DIAGNOSES: 1. Respiratory insufficiency. 2. Dislodged tracheostomy tube. 3. Acute tracheostomy complication. OPERATION PERFORMED: 1. Tracheostomy. 2. Bronchoscopy. ATTENDING SURGEON: Livan Dean M.D. BARREL FILLER: None. ANESTHESIOLOGIST: Shady Maria M.D. ANESTHESIA: General REHABILITATION NURSE plus local. ESTIMATED BLOOD LOSS: Minimal. IV FLUIDS: Please see anesthesia records. COMPLICATIONS: None. DRAINS: None. SPECIMENS: None. WOUND CLASSIFICATION: Class 1. COUNTS: Sponge and needle count correct x2. ANTIBIOTICS: The patient is on scheduled IV antibiotics for acute active inflammatory process. IMPLANTS: An 8-Tajik Shiley tracheostomy. INDICATIONS FOR PROCEDURE: This is an 83-year-old female, who had respiratory insufficiency [facility] her [facility] and unfortunately had complication with tracheostomy reinsertion and developed subcutaneous emphysema and complication and was transferred immediately to [facility] for care, at which time, she was intubated and bilateral chest tubes were placed by the emergency department physician. The patient was taken to the intensive care unit for continued monitoring and has been cared for since. The patient has significantly improved thus far and goals of care and care plan need to be continued as she will unlikely be able to wean from the ventilator and will likely need continued ventilator support for some time as she has in the past. The patient had a tracheostomy in the past, but unfortunately the tracheostomy site is closed and not safe for reinsertion. The patient had complication with recent attempted reinsertion which resulted in morbidity and at this time, not safe to proceed with reinsertion and will need operative tracheostomy. Given these findings and goals of care, I have contacted the patient's conservator and had a long discussion about recent findings, admission to the hospital, and care plan, the patient's current condition, and projected condition. It was evaluated that the patient did have an code status for tracheostomy and vent care along with artificial feeding and medication and therefore surgery was indicated and recommended medically necessary and consented for by the conservator and medical team. OPERATIVE NOTE: The patient was taken to the operating room and made comfortable on the bed. Preoperative time-out taken in identifying the patient procedure, operative staff, and surgical staff. Prior to entering the operating room, the patient had already a feeding tube access, endotracheal tube, Smith, and SCDs. General anesthesia was induced and the patient was made comfortable. The neck was extended and prepped and draped in the standard surgical fashion. The prior tracheostomy incision site was noted to be closed and no direct access trachea identified and recent complication was concerning. Therefore, we began by making a small incision around the area of the prior tracheostomy with a fresh #15 scalpel and carried down to the subcutaneous tissue fascia to the trachea. It was noted that what seems to have happened is during prior reinsertion and likely formed a new false track just lateral to the left of the trachea. The trachea was identified and small window was noted. The small window was extended and incised with a fresh #11 scalpel and the ET tube was identified. With the assistance of the anesthesiologist, the ET tube was slowly withdrawn. A trach hook was inserted and made sure to stabilize trachea and once the ET tube was above the area of the window, a new 8-Tajik Shiley tracheostomy was placed under direct visualization. Once this was completed, the patient was ventilated through the new tracheostomy after the balloon was insufflated and good end-tidal CO2 was noted. Throughout the procedure, bronchoscopy was performed initially through the ET tube identifying the ET tube within the trachea above the mabel and no injury was noted to the trachea from prior failed attempt for reinsertion at the prison. 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 The bronchoscopy entered into the left and right lobes distal to the mabel and no abnormalities were noted. There was some mild inflammation of the bronchial tissues, but no gross signs of active infection. At this time, the newly placed tracheostomy was sutured to the skin using 2-0 nylon sutures. Dressings were applied. The patient tolerated the procedure well and was taken to the intensive care unit directly from the operating room in stable condition. Livan Dean M.D. DR: SILVIA JOB#: [id number] CC: PARTH
[2018-12-29] VITALS (24 sets, daily range): BP systolic 99–156; BP diastolic 43–135
--- NOTE | 2018-12-29 | NUR ---
NURSE NOTES: Patient asleep. Still sinus ruthann on the monitor. Tolerating feeding
--- NOTE | 2018-12-29 02:00 | NUR ---
NURSE NOTES: Wound photos taken. Right cheek wound healed. Bilateral malleolus remains same. Dressings changed. See WCP and interventions.
--- NOTE | 2018-12-29 04:00 | NUR ---
NURSE NOTES: Bed bath, oral care, change of linens done.
[2018-12-29] MEDS: Cefepime HCl 2 GM in D5W 55 ML IVPB SCH (04:42)
--- NOTE | 2018-12-29 06:00 | NUR ---
NURSE NOTES: Patient condition remains the same. Sinus ruthann on the monitor.
[2018-12-29 06:27] LABS: ALANINE AMINOTRANSFERASE 21 U/L (12-78); ALBUMIN 2.3 G/DL (3.4-5.0); ALBUMIN/GLOBULIN RATIO 0.4 (1.0-2.7); ALKALINE PHOSPHATASE 67 U/L (46-116); ANION GAP 6 mmol/L (5-15); ASPARTATE AMINO TRANSFERASE 20 U/L (15-37); BILIRUBIN,TOTAL 0.2 MG/DL (0.2-1.0); BLOOD UREA NITROGEN 15 mg/dL (7-18); CARBON DIOXIDE 30 MMOL/L (21-32); CHLORIDE 111 MMOL/L (98-107); CREATININE 0.9 MG/DL (0.55-1.30); PHOSPHORUS 2.5 MG/DL (2.5-4.9); POTASSIUM 3.7 MMOL/L (3.5-5.1); SODIUM 147 MMOL/L (136-145)
[2018-12-29 06:32] LABS: BASOPHILS % (AUTO) 0.7 % (0.0-2.0); EOSINOPHILS % (AUTO) 7.4 % (0.0-3.0); HEMATOCRIT 26.7 % (37.0-47.0); HEMOGLOBIN 8.7 G/DL (12.0-16.0); LYMPHOCYTES % (AUTO) 19.2 % (20.0-45.0); MEAN CORPUSCULAR VOLUME 91 FL (80-99); NEUTROPHILS % (AUTO) 67.7 % (45.0-75.0); PLATELET COUNT 300 K/UL (150-450); RED BLOOD COUNT 2.93 M/UL (4.20-5.40); RED CELL DISTRIBUTION WIDTH 12.9 % (11.6-14.8); WHITE BLOOD COUNT 11.8 K/UL (4.8-10.8)
--- NOTE | 2018-12-29 06:50 | NUR ---
HAND-OFF: Report given to RONDA Mar.
--- NOTE | 2018-12-29 07:15 | NUR ---
NURSE NOTES: Report received from RONDA Iverson. Pt in bed. Withdrawals to pain. Bilateral chest tubes, to water seal. No air leaks noted. 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 trach to vent, settings: AC 16, TV 500, FiO2 35%, P 5. O2 sat 100%. G-tube in place, running Glucerna 1.2 @60ml, no residual. Smith in place draining yellow urine below bladder. JOSE PIC, patent. Dressing dry and in tact. fliuds TKO. Rt and Lt malleolus dressing dry and intact. Bed in lowest position. Side rails up x3. Call light within reach. contact and Sz precautions in place. Will continue to implement plan of care.
--- NOTE | 2018-12-29 07:31 | General Progress Note ---
Assessment/Plan Problem List: (1) Ileus ICD Codes: K56.7 - Ileus, unspecified SNOMED: 744039748 (2) Fecal impaction ICD Codes: K56.41 - Fecal impaction SNOMED: 53540629 (3) Feeding by G-tube ICD Codes: Z93.1 - Gastrostomy status SNOMED: 764971620, 675606463 (4) Anemia ICD Codes: D64.9 - Anemia, unspecified SNOMED: 116419809 (5) HTN (hypertension) ICD Codes: I10 - Essential (primary) hypertension SNOMED: 28244031 Status: unchanged Assessment/Plan: bowel regimen neg stool ob GI procedures on hold for now GTF GT care Subjective ROS Limited/Unobtainable: No Allergies: Coded Allergies: ASPIRIN (Verified Allergy, Unknown, 07/07/17) Objective Last 24 Hour Vital Signs Date Time Temp Pulse Resp B/P (MAP) Pulse Ox O2 Delivery O2 Flow Rate FiO2 12/29/18 07:18 56 17 35 12/29/18 06:00 62 19 140/108 (119) 100 12/29/18 05:16 60 19 35 12/29/18 05:00 62 19 150/88 (108) 100 12/29/18 04:00 Mechanical Ventilator 12/29/18 04:00 35 12/29/18 04:00 98.9 52 19 135/80 (98) 100 12/29/18 04:00 58 12/29/18 03:00 59 19 113/72 (86) 100 12/29/18 02:57 55 18 35 12/29/18 02:00 56 19 127/87 (100) 100 12/29/18 01:18 55 20 35 12/29/18 01:00 61 19 120/58 (78) 100 12/29/18 00:00 Mechanical Ventilator 12/29/18 00:00 98.7 52 18 131/58 (82) 100 12/29/18 00:00 35 12/29/18 00:00 46 12/28/18 23:00 51 16 116/44 (68) 100 12/28/18 22:44 49 16 35 12/28/18 22:00 49 16 138/47 (77) 100 12/28/18 22:00 138/47 12/28/18 21:12 45 16 35 12/28/18 21:00 45 16 148/58 (88) 100 12/28/18 20:00 99.0 47 16 111/44 (66) 100 12/28/18 20:00 56 12/28/18 20:00 Mechanical Ventilator 12/28/18 20:00 35 12/28/18 19:00 46 16 99/46 (63) 100 12/28/18 18:48 51 17 35 12/28/18 18:00 46 16 128/41 (70) 100 12/28/18 17:00 52 16 128/43 (71) 100 12/28/18 16:57 56 17 35 12/28/18 16:00 35 12/28/18 16:00 98.8 47 16 109/47 (67) 100 12/28/18 16:00 61 12/28/18 16:00 Mechanical Ventilator 12/28/18 15:06 60 16 35 12/28/18 15:00 60 16 80/41 (54) 100 12/28/18 14:00 75 20 86/36 (53) 100 12/28/18 13:15 70 16 35 12/28/18 13:00 78 16 99/72 (81) 100 12/28/18 12:00 64 12/28/18 12:00 35 12/28/18 12:00 98.7 65 22 111/94 (100) 100 12/28/18 12:00 Mechanical Ventilator 12/28/18 11:00 76 16 187/59 (101) 100 12/28/18 10:25 81 15 100 12/28/18 10:24 78 16 35 12/28/18 09:00 54 16 141/58 (85) 100 12/28/18 08:40 35 12/28/18 08:30 59 23 35 12/28/18 08:25 35 12/28/18 08:00 98.8 59 19 150/100 (117) 100 12/28/18 08:00 Mechanical Ventilator 12/28/18 08:00 40 12/28/18 08:00 54 Intake and Output 12/28/18 12/29/18 19:00 07:00 Intake Total 655 ml 860 ml Output Total 680 ml 745 ml Balance -25 ml 115 ml Free Water 150 ml IV Total 525 ml Tube Feeding 130 ml 710 ml Output Urine Total 675 ml 745 ml Chest Tube Drainage Total 5 ml # Bowel Movements 100 Laboratory Tests 12/28/18 08:05: Arterial Blood pH 7.398, Arterial Blood Partial Pressure CO2 46.5H, Arterial Blood Partial Pressure O2 146.5H, Arterial Blood HCO3 28.0H, Arterial Blood Oxygen Saturation 98.2, Arterial Blood Base Excess 2.7H, Luís Test Positive 12/29/18 05:00: White Blood Count 11.8H, Red Blood Count 2.93L, Hemoglobin 8.7L, Hematocrit 26.7L, Mean Corpuscular Volume 91, Mean Corpuscular Hemoglobin 29.7, Mean Corpuscular Hemoglobin Concent 32.6, Red Cell Distribution Width 12.9, Platelet Count 300, Mean Platelet Volume 6.3L, Neutrophils (%) (Auto) 67.7, Lymphocytes ( %) (Auto) 19.2L, Monocytes (%) (Auto) 5.0, Eosinophils (%) (Auto) 7.4H, Basophils (%) (Auto) 0.7, Sodium Level 147H, Potassium Level 3.7, Chloride Level 111H, Carbon Dioxide Level 30, Anion Gap 6, Blood Urea Nitrogen 15, Creatinine 0.9, Estimat Glomerular Filtration Rate , Glucose Level 98, Calcium Level 9.0, Phosphorus Level 2.5, Magnesium Level 1.8, Total Bilirubin 0.2, Aspartate Amino Transf (AST/SGOT) 20, Alanine Aminotransferase (ALT/SGPT) 21, Alkaline Phosphatase 67, Total Protein 7.5, Albumin 2.3L, Globulin 5.2, Albumin/ Globulin Ratio 0.4L Height (Feet): 5 Height (Inches): 5.00 Weight (Pounds): 134 General Appearance: lethargic EENT: normal ENT inspection Neck: supple Cardiovascular: normal rate Respiratory/Chest: decreased breath sounds Abdomen: normal bowel sounds, non tender, soft Extremities: non-tender Jad Skinner MD December 29, 2018 07:31
--- NOTE | 2018-12-29 08:00 | NUR ---
NURSE NOTES: MD HUMPHRIES HERE TO SEE PT. WILL PLACE OWN ORDERS.
--- NOTE | 2018-12-29 08:13 | Pulmonolgy Critical Care Note ---
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 titrate settings as needed surgery follows; small air leak resolved bilateral chest tube to water seal abx as per ID sputum cx + Pseudomonas and Haemophilus bacteremia likely contaminant ECHO with pEF, no evidence of vegetation s/p IVF acute kidney injury resolved nephro follows monitor renal parameters, lytes , correct electrolytes prn, avoid nephrotoxic' s Synthroid stopped due to low TSH , amiodarone decreased, ruthann strict aspiration precaution G-tube feeding , monitor tolerance seizure precaution DVT/GI prophylaxis monitor HH with goal to keep Hgb above 7, anemia w/up c/w anemia of chronic disease stool OB negative GI procedures on hold for now supportive care prognosis poor full code case discussed and evaluated by supervising physician Critical Care - Objective Last 24 Hour Vital Signs Date Time Temp Pulse Resp B/P (MAP) Pulse Ox O2 Delivery O2 Flow Rate FiO2 12/29/18 08:00 35 12/29/18 08:00 Mechanical Ventilator 12/29/18 07:18 56 17 35 12/29/18 06:00 62 19 140/108 (119) 100 12/29/18 05:16 60 19 35 12/29/18 05:00 62 19 150/88 (108) 100 12/29/18 04:00 Mechanical Ventilator 12/29/18 04:00 35 12/29/18 04:00 98.9 52 19 135/80 (98) 100 12/29/18 04:00 58 12/29/18 03:00 59 19 113/72 (86) 100 12/29/18 02:57 55 18 35 12/29/18 02:00 56 19 127/87 (100) 100 12/29/18 01:18 55 20 35 12/29/18 01:00 61 19 120/58 (78) 100 12/29/18 00:00 Mechanical Ventilator 12/29/18 00:00 98.7 52 18 131/58 (82) 100 12/29/18 00:00 35 12/29/18 00:00 46 12/28/18 23:00 51 16 116/44 (68) 100 12/28/18 22:44 49 16 35 12/28/18 22:00 49 16 138/47 (77) 100 12/28/18 22:00 138/47 12/28/18 21:12 45 16 35 12/28/18 21:00 45 16 148/58 (88) 100 12/28/18 20:00 99.0 47 16 111/44 (66) 100 12/28/18 20:00 56 12/28/18 20:00 Mechanical Ventilator 12/28/18 20:00 35 12/28/18 19:00 46 16 99/46 (63) 100 12/28/18 18:48 51 17 35 12/28/18 18:00 46 16 128/41 (70) 100 12/28/18 17:00 52 16 128/43 (71) 100 12/28/18 16:57 56 17 35 12/28/18 16:00 35 12/28/18 16:00 98.8 47 16 109/47 (67) 100 12/28/18 16:00 61 12/28/18 16:00 Mechanical Ventilator 12/28/18 15:06 60 16 35 12/28/18 15:00 60 16 80/41 (54) 100 12/28/18 14:00 75 20 86/36 (53) 100 12/28/18 13:15 70 16 35 12/28/18 13:00 78 16 99/72 (81) 100 12/28/18 12:00 64 12/28/18 12:00 35 12/28/18 12:00 98.7 65 22 111/94 (100) 100 12/28/18 12:00 Mechanical Ventilator 12/28/18 11:00 76 16 187/59 (101) 100 12/28/18 10:25 81 15 100 12/28/18 10:24 78 16 35 12/28/18 09:00 54 16 141/58 (85) 100 12/28/18 08:40 35 12/28/18 08:30 59 23 35 12/28/18 08:25 35 Status: sedated Condition: critical HEENT: atraumatic, normocephalic Neck: trach - Shiley # 8, secretions small, yellow color, thick consistency Lungs: clear, other - kee CT to water seal Heart: HR/BP stable - SB on tele , other Abdomen: soft, non-tender, other - G tube Extremities: no C/C/E Decubiti: other - bilar hell wounds Critical Care - Subjective ROS Limited/Unobtainable: Yes Interval Events: s/p new trach / leuk trending down no signs of resp distress Condition: critical IV Access: PICC - LUE intact EKG Rhythm: Sinus Bradycardia FI02: 35 Vent Support Breath Rate: 16 Vent Support Mode: AC Vent Tidal Volume: 500 Sputum Amount: Small PEEP: 5.0 PIP: 24 Tube Feeding Amount: 60 I&O: Intake and Output 12/28/18 12/29/18 19:00 07:00 Intake Total 655 ml 860 ml Output Total 680 ml 745 ml Balance -25 ml 115 ml Free Water 150 ml IV Total 525 ml Tube Feeding 130 ml 710 ml Output Urine Total 675 ml 745 ml Chest Tube Drainage Total 5 ml # Bowel Movements 100 CXR: 12/28 Resolved subcutaneous emphysema. Otherwise essentially unchanged over one day ET-Tube: 7.0 ET Position: 24 Tatiana Ramos NP December 29, 2018 08:13
[2018-12-29] MEDS: Acetaminophen 650mg/20.3ml GT PRN ×2 (08:24→16:52)
[2018-12-29] MEDS: Docusate 100mg cap ORAL SCH ×2 (08:24→17:07)
[2018-12-29] MEDS: Lactulose 20gm/30ml UDC ORAL SCH ×3 (08:24→17:07)
[2018-12-29] MEDS: Ascorbic Acid 500mg tab GT SCH (08:25)
[2018-12-29] MEDS: Midodrine 10mg tab GT SCH (08:27)
[2018-12-29] MEDS: Heparin 5000 units/ml inj SUBQ SCH ×2 (08:32→20:48)
[2018-12-29] MEDS: Amiodarone 200mg tab GT SCH ×2 (08:33→08:39)
--- NOTE | 2018-12-29 08:56 | General Progress Note ---
Assessment/Plan Problem List: (1) Acute and chronic respiratory failure ICD Codes: J96.20 - Acute and chronic respiratory failure, unspecified whether with hypoxia or hypercapnia SNOMED: 25894041 (2) Sepsis ICD Codes: A41.9 - Sepsis, unspecified organism SNOMED: 70782153 (3) HTN (hypertension) ICD Codes: I10 - Essential (primary) hypertension SNOMED: 07858355 (4) Seizure disorder ICD Codes: G40.909 - Epilepsy, unspecified, not intractable, without status epilepticus SNOMED: 507659286 (5) ATN (acute tubular necrosis) ICD Codes: N17.0 - Acute kidney failure with tubular necrosis SNOMED: 53336362 Status: progressing, unchanged Assessment/Plan: vent abx neph f/u cbc bmp am ltach eval Subjective Constitutional: Reports: weakness Allergies: Coded Allergies: ASPIRIN (Verified Allergy, Unknown, 07/07/17) All Systems: reviewed and negative except above Subjective trach vent altered in icu Objective Last 24 Hour Vital Signs Date Time Temp Pulse Resp B/P (MAP) Pulse Ox O2 Delivery O2 Flow Rate FiO2 12/29/18 08:00 35 12/29/18 08:00 Mechanical Ventilator 12/29/18 07:18 56 17 35 12/29/18 06:00 62 19 140/108 (119) 100 12/29/18 05:16 60 19 35 12/29/18 05:00 62 19 150/88 (108) 100 12/29/18 04:00 Mechanical Ventilator 12/29/18 04:00 35 12/29/18 04:00 98.9 52 19 135/80 (98) 100 12/29/18 04:00 58 12/29/18 03:00 59 19 113/72 (86) 100 12/29/18 02:57 55 18 35 12/29/18 02:00 56 19 127/87 (100) 100 12/29/18 01:18 55 20 35 12/29/18 01:00 61 19 120/58 (78) 100 12/29/18 00:00 Mechanical Ventilator 12/29/18 00:00 98.7 52 18 131/58 (82) 100 12/29/18 00:00 35 12/29/18 00:00 46 12/28/18 23:00 51 16 116/44 (68) 100 12/28/18 22:44 49 16 35 12/28/18 22:00 49 16 138/47 (77) 100 12/28/18 22:00 138/47 12/28/18 21:12 45 16 35 12/28/18 21:00 45 16 148/58 (88) 100 12/28/18 20:00 99.0 47 16 111/44 (66) 100 12/28/18 20:00 56 12/28/18 20:00 Mechanical Ventilator 12/28/18 20:00 35 12/28/18 19:00 46 16 99/46 (63) 100 12/28/18 18:48 51 17 35 12/28/18 18:00 46 16 128/41 (70) 100 12/28/18 17:00 52 16 128/43 (71) 100 12/28/18 16:57 56 17 35 12/28/18 16:00 35 12/28/18 16:00 98.8 47 16 109/47 (67) 100 12/28/18 16:00 61 12/28/18 16:00 Mechanical Ventilator 12/28/18 15:06 60 16 35 12/28/18 15:00 60 16 80/41 (54) 100 12/28/18 14:00 75 20 86/36 (53) 100 12/28/18 13:15 70 16 35 12/28/18 13:00 78 16 99/72 (81) 100 12/28/18 12:00 64 12/28/18 12:00 35 12/28/18 12:00 98.7 65 22 111/94 (100) 100 12/28/18 12:00 Mechanical Ventilator 12/28/18 11:00 76 16 187/59 (101) 100 12/28/18 10:25 81 15 100 12/28/18 10:24 78 16 35 12/28/18 09:00 54 16 141/58 (85) 100 Intake and Output 12/28/18 12/29/18 19:00 07:00 Intake Total 655 ml 860 ml Output Total 680 ml 745 ml Balance -25 ml 115 ml Free Water 150 ml IV Total 525 ml Tube Feeding 130 ml 710 ml Output Urine Total 675 ml 745 ml Chest Tube Drainage Total 5 ml # Bowel Movements 100 Laboratory Tests 12/29/18 05:00: White Blood Count 11.8H, Red Blood Count 2.93L, Hemoglobin 8.7L, Hematocrit 26.7L, Mean Corpuscular Volume 91, Mean Corpuscular Hemoglobin 29.7, Mean Corpuscular Hemoglobin Concent 32.6, Red Cell Distribution Width 12.9, Platelet Count 300, Mean Platelet Volume 6.3L, Neutrophils (%) (Auto) 67.7, Lymphocytes ( %) (Auto) 19.2L, Monocytes (%) (Auto) 5.0, Eosinophils (%) (Auto) 7.4H, Basophils (%) (Auto) 0.7, Sodium Level 147H, Potassium Level 3.7, Chloride Level 111H, Carbon Dioxide Level 30, Anion Gap 6, Blood Urea Nitrogen 15, Creatinine 0.9, Estimat Glomerular Filtration Rate , Glucose Level 98, Calcium Level 9.0, Phosphorus Level 2.5, Magnesium Level 1.8, Total Bilirubin 0.2, Aspartate Amino Transf (AST/SGOT) 20, Alanine Aminotransferase (ALT/SGPT) 21, Alkaline Phosphatase 67, Total Protein 7.5, Albumin 2.3L, Globulin 5.2, Albumin/ Globulin Ratio 0.4L Height (Feet): 5 Height (Inches): 5.00 Weight (Pounds): 134 General Appearance: lethargic EENT: normal ENT inspection Neck: normal alignment Cardiovascular: normal peripheral pulses, normal rate, regular rhythm Respiratory/Chest: chest wall non-tender, lungs clear, normal breath sounds Abdomen: normal bowel sounds, non tender, soft Extremities: normal inspection Edema: no edema noted Arm (L), no edema noted Arm (R), no edema noted Leg (L), no edema noted Leg (R), no edema noted Pedal (L), no edema noted Pedal (R), no edema noted Generalized Neurologic: motor weakness Skin: normal pigmentation, warm/dry Rowdy Whitemy LateshaMarilee DO December 29, 2018 08:55
--- NOTE | 2018-12-29 09:20 | NUR ---
NURSE NOTES: LUCA JONES, HERE TO SEE PT. NO NEW ORDERS ST THIS TIME.
[2018-12-29] MEDS ORDERED: Albuterol/Ipratropium 3ml neb HHN PRN (10:30)
--- NOTE | 2018-12-29 10:58 | NUR ---
NURSE NOTES: MD FALK HERE TO SEE PT. POSSIBLE REMOVAL OF CHEST TUBES TODAY. URINE OUTPUT 50-60ML/HR YELLOW. NA REMAINS AT 147, PER DIEM CLERK KAREN INCREASED FREE WATER FLUSH TO 60ML/HR Q4HRS. NO NEW ORDER AT THIS TIME.
--- NOTE | 2018-12-29 11:45 | Nephrology Progress Note ---
Assessment/Plan Problem List: (1) Acute on chronic renal failure (2) Acute and chronic respiratory failure (3) Pneumothorax (4) Cardiomyopathy Assessment acute on chronic Renal failure Acute on chronic respiratory failure Pneumothorax Anemia UTI HypoAlbuminemia HTN PEG Sz Disorder Cardiomyopathy Full code status ! . Plan start Midodrine GT DC amiodarone for bradycardia D5W as needed K Phos as needed stop synthroid- very low TSH- recheck TSH Monitor renal parameters Anemia bryant antibiotics avoid nephrotoxics optimize cardiac and pulm status per orders Subjective ROS Limited/Unobtainable: Yes Objective Objective Last 24 Hour Vital Signs Date Time Temp Pulse Resp B/P (MAP) Pulse Ox O2 Delivery O2 Flow Rate FiO2 12/29/18 11:16 60 16 35 12/29/18 09:24 47 16 35 12/29/18 09:00 54 19 149/63 (91) 100 12/29/18 08:00 35 12/29/18 08:00 Mechanical Ventilator 12/29/18 08:00 99.0 58 19 149/63 (91) 100 12/29/18 08:00 58 12/29/18 07:18 56 17 35 12/29/18 07:00 59 17 119/62 (81) 100 12/29/18 06:00 62 19 140/108 (119) 100 12/29/18 05:16 60 19 35 12/29/18 05:00 62 19 150/88 (108) 100 12/29/18 04:00 Mechanical Ventilator 12/29/18 04:00 35 12/29/18 04:00 98.9 52 19 135/80 (98) 100 12/29/18 04:00 58 12/29/18 03:00 59 19 113/72 (86) 100 12/29/18 02:57 55 18 35 12/29/18 02:00 56 19 127/87 (100) 100 12/29/18 01:18 55 20 35 12/29/18 01:00 61 19 120/58 (78) 100 12/29/18 00:00 Mechanical Ventilator 12/29/18 00:00 98.7 52 18 131/58 (82) 100 12/29/18 00:00 35 12/29/18 00:00 46 12/28/18 23:00 51 16 116/44 (68) 100 12/28/18 22:44 49 16 35 12/28/18 22:00 49 16 138/47 (77) 100 12/28/18 22:00 138/47 12/28/18 21:12 45 16 35 12/28/18 21:00 45 16 148/58 (88) 100 12/28/18 20:00 99.0 47 16 111/44 (66) 100 12/28/18 20:00 56 12/28/18 20:00 Mechanical Ventilator 12/28/18 20:00 35 12/28/18 19:00 46 16 99/46 (63) 100 12/28/18 18:48 51 17 35 12/28/18 18:00 46 16 128/41 (70) 100 12/28/18 17:00 52 16 128/43 (71) 100 12/28/18 16:57 56 17 35 12/28/18 16:00 35 12/28/18 16:00 98.8 47 16 109/47 (67) 100 12/28/18 16:00 61 12/28/18 16:00 Mechanical Ventilator 12/28/18 15:06 60 16 35 12/28/18 15:00 60 16 80/41 (54) 100 12/28/18 14:00 75 20 86/36 (53) 100 12/28/18 13:15 70 16 35 12/28/18 13:00 78 16 99/72 (81) 100 12/28/18 12:00 64 12/28/18 12:00 35 12/28/18 12:00 98.7 65 22 111/94 (100) 100 12/28/18 12:00 Mechanical Ventilator Intake and Output 12/28/18 12/29/18 19:00 07:00 Intake Total 655 ml 860 ml Output Total 680 ml 745 ml Balance -25 ml 115 ml Free Water 150 ml IV Total 525 ml Tube Feeding 130 ml 710 ml Output Urine Total 675 ml 745 ml Chest Tube Drainage Total 5 ml # Bowel Movements 100 Laboratory Tests 12/29/18 05:00: White Blood Count 11.8H, Red Blood Count 2.93L, Hemoglobin 8.7L, Hematocrit 26.7L, Mean Corpuscular Volume 91, Mean Corpuscular Hemoglobin 29.7, Mean Corpuscular Hemoglobin Concent 32.6, Red Cell Distribution Width 12.9, Platelet Count 300, Mean Platelet Volume 6.3L, Neutrophils (%) (Auto) 67.7, Lymphocytes ( %) (Auto) 19.2L, Monocytes (%) (Auto) 5.0, Eosinophils (%) (Auto) 7.4H, Basophils (%) (Auto) 0.7, Sodium Level 147H, Potassium Level 3.7, Chloride Level 111H, Carbon Dioxide Level 30, Anion Gap 6, Blood Urea Nitrogen 15, Creatinine 0.9, Estimat Glomerular Filtration Rate , Glucose Level 98, Calcium Level 9.0, Phosphorus Level 2.5, Magnesium Level 1.8, Total Bilirubin 0.2, Aspartate Amino Transf (AST/SGOT) 20, Alanine Aminotransferase (ALT/SGPT) 21, Alkaline Phosphatase 67, Total Protein 7.5, Albumin 2.3L, Globulin 5.2, Albumin/ Globulin Ratio 0.4L Height (Feet): 5 Height (Inches): 5.00 Weight (Pounds): 134 General Appearance: no apparent distress Cardiovascular: bradycardia Respiratory/Chest: other - bilateral chest tubes Objective no change Tono Case MD December 29, 2018 11:45
--- NOTE | 2018-12-29 11:50 | NUR ---
NURSE NOTES: MD GUTIÉRREZ HERE TO REMOVE BILATERAL CHEST TUBES. UPON REMOVING TAPE, SMALL BLISTER OPENED ON LEFT ABDOMEN, GAUGE APPLIED. CHEST TUBE DRESSINGS REMOVED, FRESH GAUGE DRESSINGS APPLIED AND SECURED OVER AREA. PT TOLERATED REMOVAL WELL. 02SAT 100%. BILATERAL BREATH SOUNDS DIMINISHED. CHEST TUBE COLLECTION SYSTEM AND ALL SUPPLIES IN TRASH. NO NEW ORDERS. PT POSITIONED TO COMFORT. BED LOCKED AND IN LOW POSITION. WILL CONTINUE TO MONITOR PT CLOSELY.
--- NOTE | 2018-12-29 13:01 | Surgery Progress Note ---
Surgery Progress Note Subjective Procedure Performed tracheostomy bronchoscopy Additional Comments s/p trach doing well labs noted exam stable cxr noted tube without leak Objective Last 24 Hour Vital Signs Date Time Temp Pulse Resp B/P (MAP) Pulse Ox O2 Delivery O2 Flow Rate FiO2 12/29/18 12:00 98.7 52 19 126/79 (95) 100 12/29/18 12:00 Mechanical Ventilator 12/29/18 12:00 56 12/29/18 12:00 35 12/29/18 11:16 60 16 35 12/29/18 11:00 49 16 116/43 (67) 100 12/29/18 10:00 50 16 105/51 (69) 100 12/29/18 09:24 47 16 35 12/29/18 09:00 54 19 149/63 (91) 100 12/29/18 08:00 35 12/29/18 08:00 Mechanical Ventilator 12/29/18 08:00 99.0 58 19 149/63 (91) 100 12/29/18 08:00 58 12/29/18 07:18 56 17 35 12/29/18 07:00 59 17 119/62 (81) 100 12/29/18 06:00 62 19 140/108 (119) 100 12/29/18 05:16 60 19 35 12/29/18 05:00 62 19 150/88 (108) 100 12/29/18 04:00 Mechanical Ventilator 12/29/18 04:00 35 12/29/18 04:00 98.9 52 19 135/80 (98) 100 12/29/18 04:00 58 12/29/18 03:00 59 19 113/72 (86) 100 12/29/18 02:57 55 18 35 12/29/18 02:00 56 19 127/87 (100) 100 12/29/18 01:18 55 20 35 12/29/18 01:00 61 19 120/58 (78) 100 12/29/18 00:00 Mechanical Ventilator 12/29/18 00:00 98.7 52 18 131/58 (82) 100 12/29/18 00:00 35 12/29/18 00:00 46 12/28/18 23:00 51 16 116/44 (68) 100 12/28/18 22:44 49 16 35 12/28/18 22:00 49 16 138/47 (77) 100 12/28/18 22:00 138/47 12/28/18 21:12 45 16 35 12/28/18 21:00 45 16 148/58 (88) 100 12/28/18 20:00 99.0 47 16 111/44 (66) 100 12/28/18 20:00 56 12/28/18 20:00 Mechanical Ventilator 12/28/18 20:00 35 12/28/18 19:00 46 16 99/46 (63) 100 12/28/18 18:48 51 17 35 12/28/18 18:00 46 16 128/41 (70) 100 12/28/18 17:00 52 16 128/43 (71) 100 12/28/18 16:57 56 17 35 12/28/18 16:00 35 12/28/18 16:00 98.8 47 16 109/47 (67) 100 12/28/18 16:00 61 12/28/18 16:00 Mechanical Ventilator 12/28/18 15:06 60 16 35 12/28/18 15:00 60 16 80/41 (54) 100 12/28/18 14:00 75 20 86/36 (53) 100 12/28/18 13:15 70 16 35 12/28/18 13:00 78 16 99/72 (81) 100 I&O Intake and Output 12/28/18 12/29/18 19:00 07:00 Intake Total 655 ml 860 ml Output Total 680 ml 745 ml Balance -25 ml 115 ml Free Water 150 ml IV Total 525 ml Tube Feeding 130 ml 710 ml Output Urine Total 675 ml 745 ml Chest Tube Drainage Total 5 ml # Bowel Movements 100 Dressing: dry Wound: clean Drains: other Cardiovascular: RSR Respiratory: clear Abdomen: soft, present bowel sounds, non-distended Extremities: no tenderness, no cyanosis Laboratory Tests Test 12/29/18 05:00 White Blood Count 11.8 K/UL (4.8-10.8) H Red Blood Count 2.93 M/UL (4.20-5.40) L Hemoglobin 8.7 G/DL (12.0-16.0) L Hematocrit 26.7 % (37.0-47.0) L Mean Corpuscular Volume 91 FL (80-99) Mean Corpuscular Hemoglobin 29.7 PG (27.0-31.0) Mean Corpuscular Hemoglobin Concent 32.6 G/DL (32.0-36.0) Red Cell Distribution Width 12.9 % (11.6-14.8) Platelet Count 300 K/UL (150-450) Mean Platelet Volume 6.3 FL (6.5-10.1) L Neutrophils (%) (Auto) 67.7 % (45.0-75.0) Lymphocytes (%) (Auto) 19.2 % (20.0-45.0) L Monocytes (%) (Auto) 5.0 % (1.0-10.0) Eosinophils (%) (Auto) 7.4 % (0.0-3.0) H Basophils (%) (Auto) 0.7 % (0.0-2.0) Sodium Level 147 MMOL/L (136-145) H Potassium Level 3.7 MMOL/L (3.5-5.1) Chloride Level 111 MMOL/L (98-107) H Carbon Dioxide Level 30 MMOL/L (21-32) Anion Gap 6 mmol/L (5-15) Blood Urea Nitrogen 15 mg/dL (7-18) Creatinine 0.9 MG/DL (0.55-1.30) Estimat Glomerular Filtration Rate mL/min (>60) Glucose Level 98 MG/DL (74-106) Calcium Level 9.0 MG/DL (8.5-10.1) Phosphorus Level 2.5 MG/DL (2.5-4.9) Magnesium Level 1.8 MG/DL (1.8-2.4) Total Bilirubin 0.2 MG/DL (0.2-1.0) Aspartate Amino Transf (AST/SGOT) 20 U/L (15-37) Alanine Aminotransferase (ALT/SGPT) 21 U/L (12-78) Alkaline Phosphatase 67 U/L (46-116) Total Protein 7.5 G/DL (6.4-8.2) Albumin 2.3 G/DL (3.4-5.0) L Globulin 5.2 g/dL Albumin/Globulin Ratio 0.4 (1.0-2.7) L Thyroid Stimulating Hormone (TSH) 0.091 uiU/mL (0.358-3.740) Plan Problems: (1) Pneumomediastinum (2) Hypoxia (3) Pneumonia (4) Pneumothorax Assessment & Plan: bilateral chest tubes placed prior small air leak noted - resolved on suction CXR with resolved ptx. lots of subcutaneous air. - improving Chest tubes removed at bedside AM CXR (5) Hypernatremia (6) Hypotension (7) Anemia (8) Seizure disorder (9) Septic shock Assessment & Plan: In ICU intubated on vent - now with trach CXR noted labs noted cont IV ABx cont vent chest tubes -removed critically ill prognosis guarded (10) HTN (hypertension) (11) Cardiomyopathy (12) Sepsis (13) Acute and chronic respiratory failure (14) Tracheostomy care Assessment & Plan: s/p trach (15) Bowel obstruction (16) Feeding by G-tube Assessment & Plan: DAILY ESTIMATED NEEDS: Needs based on Critical Care, wound 63kg 22-28 kcals/kg 6387-6079 total kcals 1.25-2 g protein/kg 78-126 g total protein 25-30 mL/kg 2264-9271 total fluid mLs NUTRITION DIAGNOSIS: * Swallowing difficulty R/T respiratory status, dysphagia as evidenced by pt is trach/vent + PEG dep, s/p respiratory distress, currently orally intubated, NPO. * Increased kcal/prot needs R/T wound healing as evidenced by pt admitted w/ BL malleolus wounds, pending eval. CURRENT TF:NPO ENTERAL NUTRITION RECOMMENDATIONS: Glucerna 1.2 @ 60ml/hr x 22 hrs + Prosource 1pkt daily to provide 1320ml, 1584kcal, 79g + 11g prot, 1065ml free water - Once medically appropriate, initiate TF on Glucerna 1.2 @ 20ml/hr x 6 hrs. - Advance 10ml q 4-6 hrs as tolerated to goal rate - HOB >30 degrees/ water flushes per MD - Add Prosource 1pkt daily to better meet protein needs. - Hold 1 hour before and after Synthroid med. ADDITIONAL RECOMMENDATIONS: 1) Calibrated bedscale wts 2) Monitor lytes, replete as needed 3) Monitor BGs closely, need for hypoglycemic agents (BG 245 upon adm, now improved) 4) F/up w/ wound eval -Rec Tommie 1pkt BID and Vit C 250mg QD for wound healing (17) Malfunction of gastrostomy tube (18) Chronic respiratory failure (19) Chronic vegetative state (20) Nosocomial pneumonia (21) Fecal impaction (22) ATN (acute tubular necrosis) (23) Ileus (24) Acute on chronic renal failure (25) UTI (urinary tract infection) Livan Dean December 29, 2018 13:01
--- NOTE | 2018-12-29 13:22 | NUR ---
NURSE NOTES: pt remains sinus ruthann 50's, otherwise vitals stable. Repositioned. No seizure activity. Will continue to monitor.
--- NOTE | 2018-12-29 15:33 | Infectious Diseases Prog Note ---
Assessment/Plan Assessment/Plan Assessment: Sepsis- Sp Probable PNA SCx : PSA and H. Influenza 12/28 CXR: Bilateral chest tubes, endotracheal tube remain in good position. There is also tubing over the lower chest noted. 12/24 CXR Stable satisfactory position of endotracheal tube. Bilateral chest tubes remain in place Bacteremia : CoNS ( STAPHYLOCOCCUS AURICULARIS and Epid ) m/l contaminant - 2d ECHO : no Veg Afebrile Leukocytosis, improving Hx of recurrent PNA (VAP/HAP) -10/2017 MDR PSA, H. flu -sp cx MDR [facility]B 07/2017, s/p Rx PnTx , Bl chest tube , removed 12/29 Acute respiratory failure, failed trach and now intubated 12/21/1812/28 SP tracheostomy 12/28 Sp bronchoscopy 12/28 Sp PEG Hypertension. 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 [facility] resident Plan: -Continue Cefepime d# 01/04 12/26 Sp IV Vancomycin # 5 12/25 Sp Amikacin # 3 and Zosyn # 4 -f/u cx -Monitor CBC/CMP, temperatures -ETT care -aspiration precautions Subjective Allergies: Coded Allergies: ASPIRIN (Verified Allergy, Unknown, 07/07/17) Subjective pt in ICU Objective Vital Signs Last 24 Hour Vital Signs Date Time Temp Pulse Resp B/P (MAP) Pulse Ox O2 Delivery O2 Flow Rate FiO2 12/29/18 15:04 48 16 35 12/29/18 15:00 50 16 108/71 (83) 100 12/29/18 14:00 55 16 138/63 (88) 100 12/29/18 13:25 65 16 35 12/29/18 13:00 55 16 114/47 (69) 100 12/29/18 12:00 98.7 52 19 126/79 (95) 100 12/29/18 12:00 Mechanical Ventilator 12/29/18 12:00 56 12/29/18 12:00 35 12/29/18 11:16 60 16 35 12/29/18 11:00 49 16 116/43 (67) 100 12/29/18 10:00 50 16 105/51 (69) 100 12/29/18 09:24 47 16 35 12/29/18 09:00 54 19 149/63 (91) 100 12/29/18 08:00 35 12/29/18 08:00 Mechanical Ventilator 12/29/18 08:00 99.0 58 19 149/63 (91) 100 12/29/18 08:00 58 12/29/18 07:18 56 17 35 12/29/18 07:00 59 17 119/62 (81) 100 12/29/18 06:00 62 19 140/108 (119) 100 12/29/18 05:16 60 19 35 12/29/18 05:00 62 19 150/88 (108) 100 12/29/18 04:00 Mechanical Ventilator 12/29/18 04:00 35 12/29/18 04:00 98.9 52 19 135/80 (98) 100 12/29/18 04:00 58 12/29/18 03:00 59 19 113/72 (86) 100 12/29/18 02:57 55 18 35 12/29/18 02:00 56 19 127/87 (100) 100 12/29/18 01:18 55 20 35 12/29/18 01:00 61 19 120/58 (78) 100 12/29/18 00:00 Mechanical Ventilator 12/29/18 00:00 98.7 52 18 131/58 (82) 100 12/29/18 00:00 35 12/29/18 00:00 46 12/28/18 23:00 51 16 116/44 (68) 100 12/28/18 22:44 49 16 35 12/28/18 22:00 49 16 138/47 (77) 100 12/28/18 22:00 138/47 12/28/18 21:12 45 16 35 12/28/18 21:00 45 16 148/58 (88) 100 12/28/18 20:00 99.0 47 16 111/44 (66) 100 12/28/18 20:00 56 12/28/18 20:00 Mechanical Ventilator 12/28/18 20:00 35 12/28/18 19:00 46 16 99/46 (63) 100 12/28/18 18:48 51 17 35 12/28/18 18:00 46 16 128/41 (70) 100 12/28/18 17:00 52 16 128/43 (71) 100 12/28/18 16:57 56 17 35 12/28/18 16:00 35 12/28/18 16:00 98.8 47 16 109/47 (67) 100 12/28/18 16:00 61 12/28/18 16:00 Mechanical Ventilator Height (Feet): 5 Height (Inches): 5.00 Weight (Pounds): 134 HEENT: anicteric Respiratory/Chest: no respiratory distress Cardiovascular: regular rhythm Abdomen: no organomegaly Laboratory Tests Test 12/29/18 05:00 White Blood Count 11.8 K/UL (4.8-10.8) H Red Blood Count 2.93 M/UL (4.20-5.40) L Hemoglobin 8.7 G/DL (12.0-16.0) L Hematocrit 26.7 % (37.0-47.0) L Mean Corpuscular Volume 91 FL (80-99) Mean Corpuscular Hemoglobin 29.7 PG (27.0-31.0) Mean Corpuscular Hemoglobin Concent 32.6 G/DL (32.0-36.0) Red Cell Distribution Width 12.9 % (11.6-14.8) Platelet Count 300 K/UL (150-450) Mean Platelet Volume 6.3 FL (6.5-10.1) L Neutrophils (%) (Auto) 67.7 % (45.0-75.0) Lymphocytes (%) (Auto) 19.2 % (20.0-45.0) L Monocytes (%) (Auto) 5.0 % (1.0-10.0) Eosinophils (%) (Auto) 7.4 % (0.0-3.0) H Basophils (%) (Auto) 0.7 % (0.0-2.0) Sodium Level 147 MMOL/L (136-145) H Potassium Level 3.7 MMOL/L (3.5-5.1) Chloride Level 111 MMOL/L (98-107) H Carbon Dioxide Level 30 MMOL/L (21-32) Anion Gap 6 mmol/L (5-15) Blood Urea Nitrogen 15 mg/dL (7-18) Creatinine 0.9 MG/DL (0.55-1.30) Estimat Glomerular Filtration Rate mL/min (>60) Glucose Level 98 MG/DL (74-106) Calcium Level 9.0 MG/DL (8.5-10.1) Phosphorus Level 2.5 MG/DL (2.5-4.9) Magnesium Level 1.8 MG/DL (1.8-2.4) Total Bilirubin 0.2 MG/DL (0.2-1.0) Aspartate Amino Transf (AST/SGOT) 20 U/L (15-37) Alanine Aminotransferase (ALT/SGPT) 21 U/L (12-78) Alkaline Phosphatase 67 U/L (46-116) Total Protein 7.5 G/DL (6.4-8.2) Albumin 2.3 G/DL (3.4-5.0) L Globulin 5.2 g/dL Albumin/Globulin Ratio 0.4 (1.0-2.7) L Thyroid Stimulating Hormone (TSH) 0.091 uiU/mL (0.358-3.740) Current Medications Medications (Trade) Dose Ordered Sig/Torsten Route PRN Reason Start Time Stop Time Status Last Admin Dose Admin Acetaminophen (Tylenol) 650 mg Q4H PRN GT Mild Pain/Temp > 100.5 12/23/18 13:15 01/22/19 13:14 12/29/18 08:24 Albuterol/ Ipratropium (Albuterol/ Ipratropium) 3 ml Q4H PRN HHN Shortness of Breath 12/29/18 10:30 01/03/19 10:29 Ascorbic Acid (Vitamin C) 250 mg DAILY GT 12/24/18 09:00 01/22/19 08:59 12/29/18 08:25 Cefepime HCl 2 gm/ Dextrose 55 ml @ 110 mls/hr Q24H IVPB 12/27/18 04:00 01/03/19 03:59 12/29/18 04:42 Chlorhexidine Gluconate (Mariah-Hex 2%) 1 applic DAILY@2000 TOPIC 12/25/18 20:00 01/24/19 19:59 12/28/18 20:30 Docusate Sodium (Colace) 100 mg TWICE A DAY ORAL 12/24/18 09:00 01/23/19 08:59 12/29/18 08:24 Heparin Sodium (Porcine) (Heparin 5000 units/ml) 5,000 units EVERY 12 HOURS SUBQ 12/21/18 21:00 01/20/19 20:59 12/29/18 08:32 Lactulose (Cephulac) 20 gm THREE TIMES A DAY ORAL 12/24/18 09:00 01/23/19 08:59 12/29/18 08:24 Lansoprazole (Prevacid) 30 mg BID GT 12/28/18 17:07 01/27/19 17:06 12/29/18 08:27 Midodrine (Pro-Amatine) 5 mg THREE TIMES A DAY GT 12/29/18 13:00 01/27/19 17:59 12/29/18 13:59 Norepinephrine Bitartrate 4 mg/ Dextrose 254 ml @ 0 mls/hr Q24H IV 12/21/18 22:00 01/20/19 21:59 Ondansetron HCl (Zofran) 4 mg Q6H PRN IVP Nausea & Vomiting 12/21/18 20:45 01/20/19 20:44 Polyethylene Glycol (Miralax) 17 gm DAILYPRN PRN GT Constipation 12/23/18 13:30 01/20/19 20:44 Ricky Slater MD December 29, 2018 15:33
--- NOTE | 2018-12-29 15:35 | NUR ---
NURSE NOTES: MD SUAREZ, HERE TO PT. NO NEW ORDERS AT THIS TIME.
--- NOTE | 2018-12-29 17:41 | NUR ---
NURSE NOTES: Bed bath, oral care, change of linens done. pt repositioned. hob>30. Optifoam on bilateral heels reinforced. pt afebrile, VSS will continue to monitor.
--- NOTE | 2018-12-29 19:22 | NUR ---
HAND-OFF: Report given to Zayra BOND. pt in no acute distress.
--- NOTE | 2018-12-29 19:23 | NUR ---
NURSE NOTES: Endorsement received from RONDA Mar. Patient with spontaneous eyes opening, does not track. Withdraws to pain. Shiley 8.0 to vent. AC 16, Vt 500, PEEP 5, 35% FiO2. GT patent and intact. Ongoing Glucerna 1.2 at 60ml/hr No residual. S?P removal of chest tube in the morning. Dressing dry and intact. Left upper arm PICC, flushing well with good backflow. With rectal tube draining per gravity. Smith catheter connected to urimeter. Head of bed elevated. Bed alarm on. Bed locked and in low position. On P200 mattress. On seizure precautions.
[2018-12-29] MEDS: Dyna-Hex 2% Top Sol 2oz TOPIC SCH (20:47)
--- NOTE | 2018-12-29 21:00 | NUR ---
NURSE NOTES: Repositioned patient. Rectal tube noted to be leaking. Flushed with water for irrigation.
[2018-12-30] VITALS (24 sets, daily range): BP systolic 91–137; BP diastolic 40–106
--- NOTE | 2018-12-30 | NUR ---
NURSE NOTES: Patient with eyes closed. Tolerating feeding. Sinus ruthann
--- NOTE | 2018-12-30 02:00 | NUR ---
NURSE NOTES: Patient appears comfortable, no apparent bleeding from the trache stoma.
--- NOTE | 2018-12-30 04:00 | NUR ---
NURSE NOTES: Bed bath, oral care, change of linens done.
[2018-12-30] MEDS: Cefepime HCl 2 GM in D5W 55 ML IVPB SCH (04:33)
[2018-12-30 05:32] LABS: BASOPHILS % (AUTO) 0.6 % (0.0-2.0); EOSINOPHILS % (AUTO) 6.2 % (0.0-3.0); HEMATOCRIT 27.5 % (37.0-47.0); LYMPHOCYTES % (AUTO) 18.6 % (20.0-45.0); MEAN CORPUSCULAR VOLUME 91 FL (80-99); MONOCYTES % (AUTO) 5.4 % (1.0-10.0); NEUTROPHILS % (AUTO) 69.1 % (45.0-75.0); PLATELET COUNT 288 K/UL (150-450); RED BLOOD COUNT 3.01 M/UL (4.20-5.40); RED CELL DISTRIBUTION WIDTH 12.7 % (11.6-14.8); WHITE BLOOD COUNT 12.8 K/UL (4.8-10.8)
[2018-12-30 06:31] LABS: ANION GAP 6 mmol/L (5-15); BLOOD UREA NITROGEN 14 mg/dL (7-18); CARBON DIOXIDE 31 MMOL/L (21-32); CHLORIDE 110 MMOL/L (98-107); CREATININE 0.9 MG/DL (0.55-1.30); POTASSIUM 3.5 MMOL/L (3.5-5.1); SODIUM 147 MMOL/L (136-145)
--- NOTE | 2018-12-30 06:52 | NUR ---
RESPIRATORY NOTE: Received pt on ordered vent settings. Pt tracheostomy tube is patent and secured. Suctioned pt prn. vent alarms are on and audible. Vent is plugged into red outlet. Will monitor pt progress.
--- NOTE | 2018-12-30 07:21 | NUR ---
HAND-OFF: Report given to RONDA Mar.
--- NOTE | 2018-12-30 07:30 | NUR ---
NURSE NOTES: Report received from RONDA Iverson. Pt in bed. opens eyes to tactile stimuli and respond to pain. Sinus Fracisco on quality assurance monitor final. ETT 7.5/24cm, AC 16, TV 500, FiO2 40%, P 5. O2 sat 100%. G-tube in place, running GLUCERNA 1.2 aaaat 60ml/hr. no residual. Smith in place draining yellow urine to gravity. replaced securement devise on RT thigh. JOSE PICC patent and asymptomatic. YKO. Right and left malleolus dressing dry and intact. Bed in lowest position. Side rails up x3. Call light within reach. contact and Sz precautions in place. Will continue to implement plan of care.
[2018-12-30] MEDS: Docusate 100mg cap ORAL SCH ×2 (08:05→17:56)
[2018-12-30] MEDS: Lactulose 20gm/30ml UDC ORAL SCH ×3 (08:05→17:56)
[2018-12-30] MEDS: Ascorbic Acid 500mg tab GT SCH (08:05)
--- NOTE | 2018-12-30 08:06 | Pulmonolgy Critical Care Note ---
Critical Care - Asmt/Plan Assessment/Plan: ASSESSMENT Acute on chronic failure requiring intubation due to failed tracheostomy tracheostomy dislodgement s/p bronchoscopy and trach 12/28 pneumomediastinum pneumothorax with bilateral chest tubes - CT dc 12/29 pneumonia with Pseudomonas and Haemophilus acute on chronic renal failure /acute kidney injury-resolved dysphagia , feeding by G-tube encephalopathy history of DVT COPD HTN anemia of chronic disease Electrolyte imbalance low TSH seizure disorder PLAN OF CARE in ICU vent support , pulmonary toilet s/p new trach 12/28 trach care daily chest x-ray , SQ emphysema resolved , ABG. titrate settings as needed surgery follows; small air leak resolved bilateral chest tube to water seal; dc 12/29 at the bedside by surgeon abx as per ID sputum cx + Pseudomonas and Haemophilus bacteremia likely contaminant ECHO with pEF, no evidence of vegetation s/p IVF acute kidney injury resolved nephro follows monitor renal parameters, lytes , correct electrolytes prn, avoid nephrotoxic' s monitor BP closely, on Midodrine, remains stable Synthroid stopped due to low TSH , amiodarone decreased, strict aspiration precaution G-tube feeding , monitor tolerance seizure precaution DVT/GI prophylaxis monitor HH with goal to keep Hgb above 7, anemia w/up c/w anemia of chronic disease stool OB negative GI procedures on hold for now supportive care prognosis poor full code transfer to [facility] case discussed and evaluated by supervising physician Critical Care - Objective Last 24 Hour Vital Signs Date Time Temp Pulse Resp B/P (MAP) Pulse Ox O2 Delivery O2 Flow Rate FiO2 12/30/18 07:00 51 17 128/59 (82) 100 12/30/18 06:52 60 19 35 12/30/18 06:00 51 17 123/47 (72) 100 12/30/18 05:00 60 17 108/41 (63) 100 12/30/18 04:50 70 21 35 12/30/18 04:00 35 12/30/18 04:00 98.9 59 16 108/41 (63) 100 12/30/18 04:00 Mechanical Ventilator 12/30/18 04:00 66 12/30/18 03:24 71 23 35 12/30/18 03:00 69 18 122/106 (111) 100 12/30/18 02:00 60 18 122/106 (111) 100 12/30/18 01:30 58 18 35 12/30/18 01:00 58 17 135/60 (85) 100 12/30/18 00:00 Mechanical Ventilator 12/30/18 00:00 98.7 55 18 118/40 (66) 100 12/30/18 00:00 61 12/29/18 23:27 54 18 35 12/29/18 23:00 63 18 136/65 (88) 100 12/29/18 22:00 61 19 156/103 (120) 100 12/29/18 22:00 156/103 12/29/18 21:30 50 16 35 12/29/18 21:00 63 22 155/135 (142) 100 12/29/18 20:00 35 12/29/18 20:00 Mechanical Ventilator 12/29/18 20:00 98.9 63 21 149/131 (137) 100 12/29/18 20:00 56 12/29/18 19:30 49 16 35 12/29/18 19:00 51 19 99/45 (63) 100 12/29/18 18:00 49 16 123/49 (73) 100 12/29/18 17:30 63 16 35 12/29/18 17:00 62 19 131/57 (81) 100 12/29/18 16:00 55 12/29/18 16:00 35 12/29/18 16:00 49 19 121/53 (75) 100 12/29/18 16:00 Mechanical Ventilator 12/29/18 15:04 48 16 35 12/29/18 15:00 50 16 108/71 (83) 100 12/29/18 14:00 55 16 138/63 (88) 100 12/29/18 13:25 65 16 35 12/29/18 13:00 55 16 114/47 (69) 100 12/29/18 12:00 98.7 52 19 126/79 (95) 100 12/29/18 12:00 Mechanical Ventilator 12/29/18 12:00 56 12/29/18 12:00 35 12/29/18 11:16 60 16 35 12/29/18 11:00 49 16 116/43 (67) 100 12/29/18 10:00 50 16 105/51 (69) 100 12/29/18 09:24 47 16 35 12/29/18 09:00 54 19 149/63 (91) 100 Objective: Status: sedated Condition: critical HEENT: atraumatic, normocephalic Neck: trach - Shiley # 8, secretions small amount, yellow color, thick consistency Lungs: clear, Heart: HR/BP stable - SR on tele , Abdomen: soft, non-tender Extremities: no edema Critical Care - Subjective Interval Events: ABG stable, no signs of distress, BP stable with Midodrine mild leukocytosis,afebrile kee CT removed 12/29 Condition: critical, stable EKG Rhythm: Sinus Rhythm FI02: 35 Vent Support Breath Rate: 16 Vent Support Mode: AC Vent Tidal Volume: 500 Sputum Amount: Small PEEP: 5.0 PIP: 26 Tube Feeding Amount: 60 I&O: Intake and Output 12/29/18 12/30/18 19:00 07:00 Intake Total 870 ml 900 ml Output Total 913 ml 655 ml Balance -43 ml 245 ml Free Water 150 ml 180 ml Tube Feeding 720 ml 720 ml Output Urine Total 830 ml 655 ml Stool Total 80 ml Chest Tube Drainage Total 3 ml CXR: Resolved subcutaneous emphysema. Otherwise essentially unchanged over one day ET-Tube: 7.0 ET Position: 24 Tatiana Ramos NP December 30, 2018 08:06
[2018-12-30] MEDS: Heparin 5000 units/ml inj SUBQ SCH ×2 (08:07→20:14)
--- NOTE | 2018-12-30 08:49 | General Progress Note ---
Assessment/Plan Problem List: (1) Acute and chronic respiratory failure ICD Codes: J96.20 - Acute and chronic respiratory failure, unspecified whether with hypoxia or hypercapnia SNOMED: 60706258 (2) Sepsis ICD Codes: A41.9 - Sepsis, unspecified organism SNOMED: 72365799 (3) HTN (hypertension) ICD Codes: I10 - Essential (primary) hypertension SNOMED: 81936762 (4) Seizure disorder ICD Codes: G40.909 - Epilepsy, unspecified, not intractable, without status epilepticus SNOMED: 704594858 (5) ATN (acute tubular necrosis) ICD Codes: N17.0 - Acute kidney failure with tubular necrosis SNOMED: 71544518 Status: progressing, unchanged Assessment/Plan: vent abx neph f/u cbc bmp am ltach eval Subjective Constitutional: Reports: weakness Allergies: Coded Allergies: ASPIRIN (Verified Allergy, Unknown, 07/07/17) All Systems: reviewed and negative except above Subjective trach vent altered in icu Objective Last 24 Hour Vital Signs Date Time Temp Pulse Resp B/P (MAP) Pulse Ox O2 Delivery O2 Flow Rate FiO2 12/30/18 07:00 51 17 128/59 (82) 100 12/30/18 06:52 60 19 35 12/30/18 06:00 51 17 123/47 (72) 100 12/30/18 05:00 60 17 108/41 (63) 100 12/30/18 04:50 70 21 35 12/30/18 04:00 35 12/30/18 04:00 98.9 59 16 108/41 (63) 100 12/30/18 04:00 Mechanical Ventilator 12/30/18 04:00 66 12/30/18 03:24 71 23 35 12/30/18 03:00 69 18 122/106 (111) 100 12/30/18 02:00 60 18 122/106 (111) 100 12/30/18 01:30 58 18 35 12/30/18 01:00 58 17 135/60 (85) 100 12/30/18 00:00 Mechanical Ventilator 12/30/18 00:00 98.7 55 18 118/40 (66) 100 12/30/18 00:00 61 12/29/18 23:27 54 18 35 12/29/18 23:00 63 18 136/65 (88) 100 12/29/18 22:00 61 19 156/103 (120) 100 12/29/18 22:00 156/103 12/29/18 21:30 50 16 35 12/29/18 21:00 63 22 155/135 (142) 100 12/29/18 20:00 35 12/29/18 20:00 Mechanical Ventilator 12/29/18 20:00 98.9 63 21 149/131 (137) 100 12/29/18 20:00 56 12/29/18 19:30 49 16 35 12/29/18 19:00 51 19 99/45 (63) 100 12/29/18 18:00 49 16 123/49 (73) 100 12/29/18 17:30 63 16 35 12/29/18 17:00 62 19 131/57 (81) 100 12/29/18 16:00 55 12/29/18 16:00 35 12/29/18 16:00 49 19 121/53 (75) 100 12/29/18 16:00 Mechanical Ventilator 12/29/18 15:04 48 16 35 12/29/18 15:00 50 16 108/71 (83) 100 12/29/18 14:00 55 16 138/63 (88) 100 12/29/18 13:25 65 16 35 12/29/18 13:00 55 16 114/47 (69) 100 12/29/18 12:00 98.7 52 19 126/79 (95) 100 12/29/18 12:00 Mechanical Ventilator 12/29/18 12:00 56 12/29/18 12:00 35 12/29/18 11:16 60 16 35 12/29/18 11:00 49 16 116/43 (67) 100 12/29/18 10:00 50 16 105/51 (69) 100 12/29/18 09:24 47 16 35 12/29/18 09:00 54 19 149/63 (91) 100 Intake and Output 12/29/18 12/30/18 19:00 07:00 Intake Total 870 ml 900 ml Output Total 913 ml 655 ml Balance -43 ml 245 ml Free Water 150 ml 180 ml Tube Feeding 720 ml 720 ml Output Urine Total 830 ml 655 ml Stool Total 80 ml Chest Tube Drainage Total 3 ml Laboratory Tests 12/30/18 04:30: White Blood Count 12.8H, Red Blood Count 3.01L, Hemoglobin 9.0L, Hematocrit 27.5L, Mean Corpuscular Volume 91, Mean Corpuscular Hemoglobin 29.8, Mean Corpuscular Hemoglobin Concent 32.6, Red Cell Distribution Width 12.7, Platelet Count 288, Mean Platelet Volume 6.6, Neutrophils (%) (Auto) 69.1, Lymphocytes (% ) (Auto) 18.6L, Monocytes (%) (Auto) 5.4, Eosinophils (%) (Auto) 6.2H, Basophils (%) (Auto) 0.6, Sodium Level 147H, Potassium Level 3.5, Chloride Level 110H, Carbon Dioxide Level 31, Anion Gap 6, Blood Urea Nitrogen 14, Creatinine 0.9, Estimat Glomerular Filtration Rate , Glucose Level 94, Calcium Level 9.0 Height (Feet): 5 Height (Inches): 5.00 Weight (Pounds): 139 General Appearance: lethargic EENT: normal ENT inspection Neck: normal alignment Cardiovascular: normal peripheral pulses, normal rate, regular rhythm Respiratory/Chest: chest wall non-tender, lungs clear, normal breath sounds Abdomen: normal bowel sounds, non tender, soft Extremities: normal inspection Edema: no edema noted Arm (L), no edema noted Arm (R), no edema noted Leg (L), no edema noted Leg (R), no edema noted Pedal (L), no edema noted Pedal (R), no edema noted Generalized Neurologic: motor weakness Skin: normal pigmentation, warm/dry Rl WhiteMarilee December 30, 2018 08:49
--- NOTE | 2018-12-30 09:25 | General Progress Note ---
Assessment/Plan Problem List: (1) Ileus ICD Codes: K56.7 - Ileus, unspecified SNOMED: 974395454 (2) Fecal impaction ICD Codes: K56.41 - Fecal impaction SNOMED: 92542529 (3) Feeding by G-tube ICD Codes: Z93.1 - Gastrostomy status SNOMED: 582805693, 803996166 (4) Anemia ICD Codes: D64.9 - Anemia, unspecified SNOMED: 943773541 (5) HTN (hypertension) ICD Codes: I10 - Essential (primary) hypertension SNOMED: 62902648 Status: progressing, unchanged Assessment/Plan: bowel regimen neg stool ob GI procedures on hold for now GTF GT care Subjective ROS Limited/Unobtainable: No Allergies: Coded Allergies: ASPIRIN (Verified Allergy, Unknown, 07/07/17) Objective Last 24 Hour Vital Signs Date Time Temp Pulse Resp B/P (MAP) Pulse Ox O2 Delivery O2 Flow Rate FiO2 12/30/18 07:00 51 17 128/59 (82) 100 12/30/18 06:52 60 19 35 12/30/18 06:00 51 17 123/47 (72) 100 12/30/18 05:00 60 17 108/41 (63) 100 12/30/18 04:50 70 21 35 12/30/18 04:00 35 12/30/18 04:00 98.9 59 16 108/41 (63) 100 12/30/18 04:00 Mechanical Ventilator 12/30/18 04:00 66 12/30/18 03:24 71 23 35 12/30/18 03:00 69 18 122/106 (111) 100 12/30/18 02:00 60 18 122/106 (111) 100 12/30/18 01:30 58 18 35 12/30/18 01:00 58 17 135/60 (85) 100 12/30/18 00:00 Mechanical Ventilator 12/30/18 00:00 98.7 55 18 118/40 (66) 100 12/30/18 00:00 61 12/29/18 23:27 54 18 35 12/29/18 23:00 63 18 136/65 (88) 100 12/29/18 22:00 61 19 156/103 (120) 100 12/29/18 22:00 156/103 12/29/18 21:30 50 16 35 12/29/18 21:00 63 22 155/135 (142) 100 12/29/18 20:00 35 12/29/18 20:00 Mechanical Ventilator 12/29/18 20:00 98.9 63 21 149/131 (137) 100 12/29/18 20:00 56 12/29/18 19:30 49 16 35 12/29/18 19:00 51 19 99/45 (63) 100 12/29/18 18:00 49 16 123/49 (73) 100 12/29/18 17:30 63 16 35 12/29/18 17:00 62 19 131/57 (81) 100 12/29/18 16:00 55 12/29/18 16:00 35 12/29/18 16:00 49 19 121/53 (75) 100 12/29/18 16:00 Mechanical Ventilator 12/29/18 15:04 48 16 35 12/29/18 15:00 50 16 108/71 (83) 100 12/29/18 14:00 55 16 138/63 (88) 100 12/29/18 13:25 65 16 35 12/29/18 13:00 55 16 114/47 (69) 100 12/29/18 12:00 98.7 52 19 126/79 (95) 100 12/29/18 12:00 Mechanical Ventilator 12/29/18 12:00 56 12/29/18 12:00 35 12/29/18 11:16 60 16 35 12/29/18 11:00 49 16 116/43 (67) 100 12/29/18 10:00 50 16 105/51 (69) 100 Intake and Output 12/29/18 12/30/18 19:00 07:00 Intake Total 870 ml 900 ml Output Total 913 ml 655 ml Balance -43 ml 245 ml Free Water 150 ml 180 ml Tube Feeding 720 ml 720 ml Output Urine Total 830 ml 655 ml Stool Total 80 ml Chest Tube Drainage Total 3 ml Laboratory Tests 12/30/18 04:30: White Blood Count 12.8H, Red Blood Count 3.01L, Hemoglobin 9.0L, Hematocrit 27.5L, Mean Corpuscular Volume 91, Mean Corpuscular Hemoglobin 29.8, Mean Corpuscular Hemoglobin Concent 32.6, Red Cell Distribution Width 12.7, Platelet Count 288, Mean Platelet Volume 6.6, Neutrophils (%) (Auto) 69.1, Lymphocytes (% ) (Auto) 18.6L, Monocytes (%) (Auto) 5.4, Eosinophils (%) (Auto) 6.2H, Basophils (%) (Auto) 0.6, Sodium Level 147H, Potassium Level 3.5, Chloride Level 110H, Carbon Dioxide Level 31, Anion Gap 6, Blood Urea Nitrogen 14, Creatinine 0.9, Estimat Glomerular Filtration Rate , Glucose Level 94, Calcium Level 9.0 Height (Feet): 5 Height (Inches): 5.00 Weight (Pounds): 139 General Appearance: no apparent distress EENT: normal ENT inspection Neck: supple Cardiovascular: normal rate Respiratory/Chest: decreased breath sounds Abdomen: normal bowel sounds, non tender, soft Extremities: non-tender Jad Skinner MD December 30, 2018 09:25
--- NOTE | 2018-12-30 09:30 | NUR ---
NURSE NOTES: pt remains sinus ruthann 50's, otherwise vitals stable. Repositioned. No seizure activity. Will continue to monitor.
--- NOTE | 2018-12-30 10:00 | NUR ---
NURSE NOTES: LUCA JONES, HERE TO SEE PT. NO NEW ORDERS AT THIS TIME.
--- NOTE | 2018-12-30 11:30 | NUR ---
NURSE NOTES: MD FALK HERE TO SEE PT
--- NOTE | 2018-12-30 12:12 | NUR ---
NURSE NOTES: Bed bath, oral care, change of linens done. pt repositioned. hob>30. Optifoam on bilateral heels reinforced. pt afebrile, VSS will continue to monitor.
--- NOTE | 2018-12-30 13:18 | Surgery Progress Note ---
Surgery Progress Note Subjective Procedure Performed tracheostomy bronchoscopy Additional Comments no acute events. comfortable. doing well with trach and chest tubes out Objective Last 24 Hour Vital Signs Date Time Temp Pulse Resp B/P (MAP) Pulse Ox O2 Delivery O2 Flow Rate FiO2 12/30/18 12:00 Mechanical Ventilator 12/30/18 12:00 35 12/30/18 11:18 63 20 35 12/30/18 10:00 56 16 94/46 (62) 99 12/30/18 09:22 64 20 35 12/30/18 09:00 65 18 116/86 (96) 100 12/30/18 08:00 Mechanical Ventilator 12/30/18 08:00 69 12/30/18 08:00 35 12/30/18 08:00 99.0 69 18 117/46 (69) 100 12/30/18 07:00 51 17 128/59 (82) 100 12/30/18 06:52 60 19 35 12/30/18 06:00 51 17 123/47 (72) 100 12/30/18 05:00 60 17 108/41 (63) 100 12/30/18 04:50 70 21 35 12/30/18 04:00 35 12/30/18 04:00 98.9 59 16 108/41 (63) 100 12/30/18 04:00 Mechanical Ventilator 12/30/18 04:00 66 12/30/18 03:24 71 23 35 12/30/18 03:00 69 18 122/106 (111) 100 12/30/18 02:00 60 18 122/106 (111) 100 12/30/18 01:30 58 18 35 12/30/18 01:00 58 17 135/60 (85) 100 12/30/18 00:00 Mechanical Ventilator 12/30/18 00:00 98.7 55 18 118/40 (66) 100 12/30/18 00:00 61 12/29/18 23:27 54 18 35 12/29/18 23:00 63 18 136/65 (88) 100 12/29/18 22:00 61 19 156/103 (120) 100 12/29/18 22:00 156/103 12/29/18 21:30 50 16 35 12/29/18 21:00 63 22 155/135 (142) 100 12/29/18 20:00 35 12/29/18 20:00 Mechanical Ventilator 12/29/18 20:00 98.9 63 21 149/131 (137) 100 12/29/18 20:00 56 12/29/18 19:30 49 16 35 12/29/18 19:00 51 19 99/45 (63) 100 12/29/18 18:00 49 16 123/49 (73) 100 12/29/18 17:30 63 16 35 12/29/18 17:00 62 19 131/57 (81) 100 12/29/18 16:00 55 12/29/18 16:00 35 12/29/18 16:00 49 19 121/53 (75) 100 12/29/18 16:00 Mechanical Ventilator 12/29/18 15:04 48 16 35 12/29/18 15:00 50 16 108/71 (83) 100 12/29/18 14:00 55 16 138/63 (88) 100 12/29/18 13:25 65 16 35 I&O Intake and Output 12/29/18 12/30/18 19:00 07:00 Intake Total 870 ml 900 ml Output Total 913 ml 655 ml Balance -43 ml 245 ml Free Water 150 ml 180 ml Tube Feeding 720 ml 720 ml Output Urine Total 830 ml 655 ml Stool Total 80 ml Chest Tube Drainage Total 3 ml Dressing: dry Wound: clean Drains: other Cardiovascular: RSR Respiratory: decreased breath sounds Abdomen: soft, present bowel sounds, non-distended Extremities: no cyanosis Laboratory Tests Test 12/30/18 04:30 12/30/18 09:22 White Blood Count 12.8 K/UL (4.8-10.8) H Red Blood Count 3.01 M/UL (4.20-5.40) L Hemoglobin 9.0 G/DL (12.0-16.0) L Hematocrit 27.5 % (37.0-47.0) L Mean Corpuscular Volume 91 FL (80-99) Mean Corpuscular Hemoglobin 29.8 PG (27.0-31.0) Mean Corpuscular Hemoglobin Concent 32.6 G/DL (32.0-36.0) Red Cell Distribution Width 12.7 % (11.6-14.8) Platelet Count 288 K/UL (150-450) Mean Platelet Volume 6.6 FL (6.5-10.1) Neutrophils (%) (Auto) 69.1 % (45.0-75.0) Lymphocytes (%) (Auto) 18.6 % (20.0-45.0) L Monocytes (%) (Auto) 5.4 % (1.0-10.0) Eosinophils (%) (Auto) 6.2 % (0.0-3.0) H Basophils (%) (Auto) 0.6 % (0.0-2.0) Sodium Level 147 MMOL/L (136-145) H Potassium Level 3.5 MMOL/L (3.5-5.1) Chloride Level 110 MMOL/L (98-107) H Carbon Dioxide Level 31 MMOL/L (21-32) Anion Gap 6 mmol/L (5-15) Blood Urea Nitrogen 14 mg/dL (7-18) Creatinine 0.9 MG/DL (0.55-1.30) Estimat Glomerular Filtration Rate mL/min (>60) Glucose Level 94 MG/DL (74-106) Calcium Level 9.0 MG/DL (8.5-10.1) Arterial Blood pH 7.433 (7.350-7.450) Arterial Blood Partial Pressure CO2 43.9 mmHg (35.0-45.0) Arterial Blood Partial Pressure O2 95.4 mmHg (75.0-100.0) Arterial Blood HCO3 28.7 mmol/L (22.0-26.0) H Arterial Blood Oxygen Saturation 97.0 % (95-100) Arterial Blood Base Excess 4.0 (-2-2) H Luís Test Positive Plan Problems: (1) Pneumomediastinum (2) Hypoxia (3) Pneumonia (4) Pneumothorax Assessment & Plan: bilateral chest tubes placed prior small air leak noted - resolved on suction CXR with resolved ptx. lots of subcutaneous air. - improving Chest tubes removed at bedside AM CXR (5) Hypernatremia (6) Hypotension (7) Anemia (8) Seizure disorder (9) Septic shock Assessment & Plan: In ICU intubated on vent - now with trach CXR noted labs noted cont IV ABx cont vent chest tubes -removed critically ill prognosis guarded (10) HTN (hypertension) (11) Cardiomyopathy (12) Sepsis (13) Acute and chronic respiratory failure (14) Tracheostomy care Assessment & Plan: s/p trach (15) Bowel obstruction (16) Feeding by G-tube Assessment & Plan: DAILY ESTIMATED NEEDS: Needs based on Critical Care, wound 63kg 22-28 kcals/kg 1022-8080 total kcals 1.25-2 g protein/kg 78-126 g total protein 25-30 mL/kg 3047-6063 total fluid mLs NUTRITION DIAGNOSIS: * Swallowing difficulty R/T respiratory status, dysphagia as evidenced by pt is trach/vent + PEG dep, s/p respiratory distress, currently orally intubated, NPO. * Increased kcal/prot needs R/T wound healing as evidenced by pt admitted w/ BL malleolus wounds, pending eval. CURRENT TF:NPO ENTERAL NUTRITION RECOMMENDATIONS: Glucerna 1.2 @ 60ml/hr x 22 hrs + Prosource 1pkt daily to provide 1320ml, 1584kcal, 79g + 11g prot, 1065ml free water - Once medically appropriate, initiate TF on Glucerna 1.2 @ 20ml/hr x 6 hrs. - Advance 10ml q 4-6 hrs as tolerated to goal rate - HOB >30 degrees/ water flushes per MD - Add Prosource 1pkt daily to better meet protein needs. - Hold 1 hour before and after Synthroid med. ADDITIONAL RECOMMENDATIONS: 1) Calibrated bedscale wts 2) Monitor lytes, replete as needed 3) Monitor BGs closely, need for hypoglycemic agents (BG 245 upon adm, now improved) 4) F/up w/ wound eval -Rec Tommie 1pkt BID and Vit C 250mg QD for wound healing (17) Malfunction of gastrostomy tube (18) Chronic respiratory failure (19) Chronic vegetative state (20) Nosocomial pneumonia (21) Fecal impaction (22) ATN (acute tubular necrosis) (23) Ileus (24) Acute on chronic renal failure (25) UTI (urinary tract infection) Livan Dean December 30, 2018 13:18
--- NOTE | 2018-12-30 15:20 | NUR ---
NURSE NOTES: pt remains sinus ruthann 50's, otherwise vitals stable. Repositioned. No seizure activity. Will continue to monitor.
--- NOTE | 2018-12-30 16:23 | General Progress Note ---
Assessment/Plan Status: progressing, unchanged Assessment/Plan: Assessment and Recs: # Anemia of chronic disease due to underlying chronic medical issues, multifactorial --> Anemia workup has been ordered, rule out gi bleed --> ferritin is 610 --> No evidence of hemolysis is noted, peripheral smear has been reviewed. --> Hgb goal >7. Transfuse prn. --> Epogen or iron at this time is not particularly indicated --> Medications have been reviewed --> evaluate with Gi team prn --> transfuse if hgb is < 7 (trend CBC daily) --> stool ob is negative --> transfused with 2 units 12/23 # Leukocytosis on admission has been 10-16k --> smear has beenr reviewed, no e/o blasts --> on antibiotics # Acute on chronic Renal failure --> per renal --> cr has improved # Acute on chronic respiratory failure s/p trach with revision, s/p trach 12/28 --> Pneumothorax s/p chest tube --> trach done 12/28 # UTI --> on abx --> per id # HypoAlbuminemia # HTN # PEG with Fecal impaction # Malfunction of gastrostomy tube The timing of this note does not necessarily reflect the time of the patient was seen. Greatly appreciate consultation! Subjective Constitutional: Denies: no symptoms, chills, diaphoresis, fever, malaise, weakness, other HEENT: Denies: no symptoms, eye pain, blurred vision, tearing, double vision, ear pain, ear discharge, nose pain, nose congestion, throat pain, throat swelling, mouth pain, mouth swelling, other Cardiovascular: Denies: no symptoms, chest pain, edema, irregular heart rate, lightheadedness, palpitations, syncope, other Gastrointestinal/Abdominal: Denies: no symptoms, abdomen distended, abdominal pain, black stools, tarry stools, blood in stool, constipated, diarrhea, difficulty swallowing, nausea, poor appetite, poor fluid intake, rectal bleeding , vomiting, other Neurologic/Psychiatric: Denies: no symptoms, anxiety, depressed, emotional problems, headache, numbness, paresthesia, pre-existing deficit, seizure, tingling, tremors, weakness, other Endocrine: Denies: no symptoms, excessive sweating, flushing, intolerance to cold, intolerance to heat, increased hunger, increased thirst, increased urine, unexplained weight gain, unexplained weight loss, other Hematologic/Lymphatic: Denies: no symptoms, anemia, easy bleeding, easy bruising, other Allergies: Coded Allergies: ASPIRIN (Verified Allergy, Unknown, 07/07/17) Subjective 12/26: no events, remains sedated, in the icu, on vent 12/27: no events noted, no f/c, considering ltach placement 12/28: trach completed today with bronch, no f/c 12/30: no events, remains in the icu, tolerating well off ct Objective Last 24 Hour Vital Signs Date Time Temp Pulse Resp B/P (MAP) Pulse Ox O2 Delivery O2 Flow Rate FiO2 12/30/18 15:00 52 16 128/49 (75) 100 12/30/18 14:00 63 22 121/54 (76) 100 12/30/18 13:16 65 20 35 12/30/18 13:00 98.9 62 19 111/84 (93) 100 12/30/18 12:00 Mechanical Ventilator 12/30/18 12:00 35 12/30/18 12:00 61 12/30/18 12:00 61 18 101/47 (65) 100 12/30/18 11:18 63 20 35 12/30/18 11:00 53 16 91/46 (61) 99 12/30/18 10:00 56 16 94/46 (62) 99 12/30/18 09:22 64 20 35 12/30/18 09:00 65 18 116/86 (96) 100 12/30/18 08:00 Mechanical Ventilator 12/30/18 08:00 69 12/30/18 08:00 35 12/30/18 08:00 99.0 69 18 117/46 (69) 100 12/30/18 07:00 51 17 128/59 (82) 100 12/30/18 06:52 60 19 35 12/30/18 06:00 51 17 123/47 (72) 100 12/30/18 05:00 60 17 108/41 (63) 100 12/30/18 04:50 70 21 35 12/30/18 04:00 35 12/30/18 04:00 98.9 59 16 108/41 (63) 100 12/30/18 04:00 Mechanical Ventilator 12/30/18 04:00 66 12/30/18 03:24 71 23 35 12/30/18 03:00 69 18 122/106 (111) 100 12/30/18 02:00 60 18 122/106 (111) 100 12/30/18 01:30 58 18 35 12/30/18 01:00 58 17 135/60 (85) 100 12/30/18 00:00 Mechanical Ventilator 12/30/18 00:00 98.7 55 18 118/40 (66) 100 12/30/18 00:00 61 12/29/18 23:27 54 18 35 12/29/18 23:00 63 18 136/65 (88) 100 12/29/18 22:00 61 19 156/103 (120) 100 12/29/18 22:00 156/103 12/29/18 21:30 50 16 35 12/29/18 21:00 63 22 155/135 (142) 100 12/29/18 20:00 35 12/29/18 20:00 Mechanical Ventilator 12/29/18 20:00 98.9 63 21 149/131 (137) 100 12/29/18 20:00 56 12/29/18 19:30 49 16 35 12/29/18 19:00 51 19 99/45 (63) 100 12/29/18 18:00 49 16 123/49 (73) 100 12/29/18 17:30 63 16 35 12/29/18 17:00 62 19 131/57 (81) 100 Intake and Output 12/29/18 12/30/18 19:00 07:00 Intake Total 870 ml 900 ml Output Total 913 ml 655 ml Balance -43 ml 245 ml Free Water 150 ml 180 ml Tube Feeding 720 ml 720 ml Output Urine Total 830 ml 655 ml Stool Total 80 ml Chest Tube Drainage Total 3 ml Laboratory Tests 12/30/18 04:30: White Blood Count 12.8H, Red Blood Count 3.01L, Hemoglobin 9.0L, Hematocrit 27.5L, Mean Corpuscular Volume 91, Mean Corpuscular Hemoglobin 29.8, Mean Corpuscular Hemoglobin Concent 32.6, Red Cell Distribution Width 12.7, Platelet Count 288, Mean Platelet Volume 6.6, Neutrophils (%) (Auto) 69.1, Lymphocytes (% ) (Auto) 18.6L, Monocytes (%) (Auto) 5.4, Eosinophils (%) (Auto) 6.2H, Basophils (%) (Auto) 0.6, Sodium Level 147H, Potassium Level 3.5, Chloride Level 110H, Carbon Dioxide Level 31, Anion Gap 6, Blood Urea Nitrogen 14, Creatinine 0.9, Estimat Glomerular Filtration Rate , Glucose Level 94, Calcium Level 9.0 12/30/18 09:22: Arterial Blood pH 7.433, Arterial Blood Partial Pressure CO2 43.9, Arterial Blood Partial Pressure O2 95.4, Arterial Blood HCO3 28.7H, Arterial Blood Oxygen Saturation 97.0, Arterial Blood Base Excess 4.0H, Luís Test Positive Height (Feet): 5 Height (Inches): 5.00 Weight (Pounds): 139 Objective p02 EP Interpretation: reviewed, normal General Appearance: severe distress, lethargic, obese, Stupor Head: atraumatic Eyes: bilateral eye normal inspection ENT: moist mucus membranes Neck: supple Respiratory: respiratory distress, ++ trach ++ intubated Cardiovascular: tachycardia Gastrointestinal: distended - G-tube in place Genitourinary: no CVA tenderness Musculoskeletal: other - Contractures lower extremity Neurologic: other - Unable to assess due to patient poor mental status Psychiatric: other - Unable to assess patient unconscious Micha Torres MD December 30, 2018 16:23
--- NOTE | 2018-12-30 16:52 | Nephrology Progress Note ---
Assessment/Plan Problem List: (1) Acute on chronic renal failure (2) Acute and chronic respiratory failure (3) Pneumothorax (4) Cardiomyopathy Assessment acute on chronic Renal failure Acute on chronic respiratory failure Pneumothorax Anemia UTI HypoAlbuminemia HTN PEG Sz Disorder Cardiomyopathy Full code status ! . Plan start Midodrine GT DC amiodarone for bradycardia D5W as needed K Phos as needed stop synthroid- very low TSH- recheck TSH Monitor renal parameters Anemia bryant antibiotics avoid nephrotoxics optimize cardiac and pulm status per orders Subjective ROS Limited/Unobtainable: Yes Objective Objective Last 24 Hour Vital Signs Date Time Temp Pulse Resp B/P (MAP) Pulse Ox O2 Delivery O2 Flow Rate FiO2 12/30/18 16:00 Mechanical Ventilator 12/30/18 16:00 49 16 134/65 (88) 100 12/30/18 16:00 35 12/30/18 16:00 47 12/30/18 15:00 52 16 128/49 (75) 100 12/30/18 14:00 63 22 121/54 (76) 100 12/30/18 13:16 65 20 35 12/30/18 13:00 98.9 62 19 111/84 (93) 100 12/30/18 12:00 Mechanical Ventilator 12/30/18 12:00 35 12/30/18 12:00 61 12/30/18 12:00 61 18 101/47 (65) 100 12/30/18 11:18 63 20 35 12/30/18 11:00 53 16 91/46 (61) 99 12/30/18 10:00 56 16 94/46 (62) 99 12/30/18 09:22 64 20 35 12/30/18 09:00 65 18 116/86 (96) 100 12/30/18 08:00 Mechanical Ventilator 12/30/18 08:00 69 12/30/18 08:00 35 12/30/18 08:00 99.0 69 18 117/46 (69) 100 12/30/18 07:00 51 17 128/59 (82) 100 12/30/18 06:52 60 19 35 12/30/18 06:00 51 17 123/47 (72) 100 12/30/18 05:00 60 17 108/41 (63) 100 12/30/18 04:50 70 21 35 12/30/18 04:00 35 12/30/18 04:00 98.9 59 16 108/41 (63) 100 12/30/18 04:00 Mechanical Ventilator 12/30/18 04:00 66 12/30/18 03:24 71 23 35 12/30/18 03:00 69 18 122/106 (111) 100 12/30/18 02:00 60 18 122/106 (111) 100 12/30/18 01:30 58 18 35 12/30/18 01:00 58 17 135/60 (85) 100 12/30/18 00:00 Mechanical Ventilator 12/30/18 00:00 98.7 55 18 118/40 (66) 100 12/30/18 00:00 61 12/29/18 23:27 54 18 35 12/29/18 23:00 63 18 136/65 (88) 100 12/29/18 22:00 61 19 156/103 (120) 100 12/29/18 22:00 156/103 12/29/18 21:30 50 16 35 12/29/18 21:00 63 22 155/135 (142) 100 12/29/18 20:00 35 12/29/18 20:00 Mechanical Ventilator 12/29/18 20:00 98.9 63 21 149/131 (137) 100 12/29/18 20:00 56 12/29/18 19:30 49 16 35 12/29/18 19:00 51 19 99/45 (63) 100 12/29/18 18:00 49 16 123/49 (73) 100 12/29/18 17:30 63 16 35 12/29/18 17:00 62 19 131/57 (81) 100 Intake and Output 12/29/18 12/30/18 19:00 07:00 Intake Total 870 ml 900 ml Output Total 913 ml 655 ml Balance -43 ml 245 ml Free Water 150 ml 180 ml Tube Feeding 720 ml 720 ml Output Urine Total 830 ml 655 ml Stool Total 80 ml Chest Tube Drainage Total 3 ml Laboratory Tests 12/30/18 04:30: White Blood Count 12.8H, Red Blood Count 3.01L, Hemoglobin 9.0L, Hematocrit 27.5L, Mean Corpuscular Volume 91, Mean Corpuscular Hemoglobin 29.8, Mean Corpuscular Hemoglobin Concent 32.6, Red Cell Distribution Width 12.7, Platelet Count 288, Mean Platelet Volume 6.6, Neutrophils (%) (Auto) 69.1, Lymphocytes (% ) (Auto) 18.6L, Monocytes (%) (Auto) 5.4, Eosinophils (%) (Auto) 6.2H, Basophils (%) (Auto) 0.6, Sodium Level 147H, Potassium Level 3.5, Chloride Level 110H, Carbon Dioxide Level 31, Anion Gap 6, Blood Urea Nitrogen 14, Creatinine 0.9, Estimat Glomerular Filtration Rate , Glucose Level 94, Calcium Level 9.0 12/30/18 09:22: Arterial Blood pH 7.433, Arterial Blood Partial Pressure CO2 43.9, Arterial Blood Partial Pressure O2 95.4, Arterial Blood HCO3 28.7H, Arterial Blood Oxygen Saturation 97.0, Arterial Blood Base Excess 4.0H, Luís Test Positive Height (Feet): 5 Height (Inches): 5.00 Weight (Pounds): 139 EENT: other - on vent Cardiovascular: bradycardia Respiratory/Chest: decreased breath sounds, other Abdomen: distended Objective no change Tono Case MD December 30, 2018 16:52
--- NOTE | 2018-12-30 17:30 | NUR ---
NURSE NOTES: Bed bath, oral care, change of linens done. rectal tube refilled w/ 45ml, noted small leak. pt repositioned. hob>30. Optifoam on bilateral heels intact. pt afebrile, VSS will continue to monitor.
--- NOTE | 2018-12-30 19:15 | NUR ---
HAND-OFF: Report given to albert BOND. pt in no acute distress
--- NOTE | 2018-12-30 19:30 | NUR ---
NURSE NOTES: Report received from RONDA Iverson. Pt in bed. opens eyes to tactile stimuli and respond to pain. Sinus Fracisco on diagnostic cardiac sonographer. ETT 7.5/24cm, AC 16, TV 500, FiO2 40%, P 5. O2 sat 100%. G-tube in place, running GLUCERNA 1.2 aaaat 60ml/hr. no residual. Smith in place draining yellow urine to gravity. replaced securement devise on RT thigh. JOSE PICC patent and asymptomatic. TKO. Right and left malleolus dressing dry and intact. Bed in lowest position. Side rails up x3. Call light within reach. contact and SZ precautions in place. Will continue to implement plan of care.
--- NOTE | 2018-12-30 19:33 | NUR ---
RESPIRATORY NOTE: Patient received mechanically ventilated on PB 840 with current ordered vent settings. Patient has trach size 8.0 Shiley cuffed that is secured with a trach tie and guard. Vent alarms are functional and audible. There is an ambu bag available at the bedside and the vent is connected to a red outlet. Will continue to monitor.
--- NOTE | 2018-12-30 20:00 | NUR ---
NURSE NOTES: Patient repositioned and given oral care. Rectal tube remains in place, VS remains stable at this time. No acute distress at this time.
[2018-12-30] MEDS: Dyna-Hex 2% Top Sol 2oz TOPIC SCH (20:11)
--- NOTE | 2018-12-30 22:00 | NUR ---
NURSE NOTES: Patient repositioned and kept clean and dry. Heels kept offloaded. NAD at this time. Patient lavaged and suctioned.
--- NOTE | 2018-12-30 23:54 | Diagnostic Imaging Report ---
PORTABLE AP UPRIGHT CXR: HISTORY: 83-year-old female with SOB. COMPARISON: Numerous prior portable CXRs, the most recent 12/28/2018; chest CT without contrast 12/21/2018. FINDINGS: Compared to the recent exam, endotracheal tube is no longer identified, and new tracheostomy tube is in place, in grossly satisfactory position. Bilateral chest tubes are no longer identified. There are patchy ground glass and reticular opacities throughout the lungs bilaterally, grossly similar to the prior exam. Heart size is stable. No obvious pneumothorax or effusion, allowing for technique. No obvious chest wall subcutaneous emphysema. IMPRESSION: 1. New tracheostomy tube in grossly satisfactory position. 2. Status post removal of bilateral chest tubes; no obvious pneumothorax or effusion, allowing for technique.
[2018-12-31] VITALS (15 sets, daily range): BP systolic 98–153; BP diastolic 45–118
--- NOTE | 2018-12-31 | NUR ---
NURSE NOTES: Patient repositioned and given oral care. No acute distress at this time Vitals remains stable. Remains afebrile.
--- NOTE | 2018-12-31 02:00 | NUR ---
NURSE NOTES: Patient was repositioned and provided oral care. VS has been stable, no acute distress at this time. Rectal tube is draining appropriately, minimal leak. Suctioned patient. Minimal GT residual.
--- NOTE | 2018-12-31 04:00 | NUR ---
NURSE NOTES: Patient cleaned and repositioned. New feeds hung. Vitals remains stable. Blood drawn and sent to lab. Afebrile at this time. New IV tubings. Rectal tube draining patently, minimal leaks.
[2018-12-31] MEDS: Cefepime HCl 2 GM in D5W 55 ML IVPB SCH (04:09)
[2018-12-31 04:58] LABS: BASOPHILS % (AUTO) 0.8 % (0.0-2.0); EOSINOPHILS % (AUTO) 5.8 % (0.0-3.0); HEMATOCRIT 28.2 % (37.0-47.0); HEMOGLOBIN 9.2 G/DL (12.0-16.0); LYMPHOCYTES % (AUTO) 22.7 % (20.0-45.0); MEAN CORPUSCULAR VOLUME 91 FL (80-99); MONOCYTES % (AUTO) 4.5 % (1.0-10.0); NEUTROPHILS % (AUTO) 66.3 % (45.0-75.0); PLATELET COUNT 319 K/UL (150-450); RED BLOOD COUNT 3.08 M/UL (4.20-5.40); RED CELL DISTRIBUTION WIDTH 13.1 % (11.6-14.8); WHITE BLOOD COUNT 12.6 K/UL (4.8-10.8)
[2018-12-31 05:20] LABS: ANION GAP 6 mmol/L (5-15); BLOOD UREA NITROGEN 16 mg/dL (7-18); CALCIUM 9.5 MG/DL (8.5-10.1); CARBON DIOXIDE 31 MMOL/L (21-32); CHLORIDE 112 MMOL/L (98-107); SODIUM 149 MMOL/L (136-145)
[2018-12-31 05:28] LABS: ALANINE AMINOTRANSFERASE 20 U/L (12-78); ALBUMIN 2.5 G/DL (3.4-5.0); ALKALINE PHOSPHATASE 77 U/L (46-116); ASPARTATE AMINO TRANSFERASE 16 U/L (15-37); BILIRUBIN,DIRECT < 0.1 MG/DL (0.0-0.3); BILIRUBIN,TOTAL 0.1 MG/DL (0.2-1.0); PHOSPHORUS 2.8 MG/DL (2.5-4.9)
--- NOTE | 2018-12-31 06:00 | NUR ---
NURSE NOTES: Repositioned and suctioned patient. Patient remains clean and dry. NAD at this time and Vitals remains stable.
--- NOTE | 2018-12-31 07:10 | NUR ---
NURSE NOTES: Report received from Jay Rai RN.Pt in bed asleep,obtunded, noted no resp distress,with trach tube shiley #8to Vent on current settings,tolerating well,no sign of pain or discomfort S-ruthann on the monitor,GTF Glucerna 1.2 at 60 ml /hr,no residual noted,Smith cath draining yellow urine,Rectal tube in placed PICC line to JOSE intact,skin warm and dry,SR up x2 HOB elevated,bed lock in lowest position will continue with plans of care.
--- NOTE | 2018-12-31 09:42 | NUR ---
RADIOLOGY DEPT., CHEST X-RAY DONE.-P.DYE
[2018-12-31] MEDS: Lactulose 20gm/30ml UDC ORAL SCH ×2 (09:44→13:00)
--- NOTE | 2018-12-31 09:45 | NUR ---
NURSE NOTES: GT occluded, feeding turned off,tried to declogged feeding with soda per Cole's instruction.
[2018-12-31] MEDS: Ascorbic Acid 500mg tab GT SCH (09:46)
[2018-12-31] MEDS: Docusate 100mg cap ORAL SCH (09:46)
[2018-12-31] MEDS: Heparin 5000 units/ml inj SUBQ SCH ×2 (09:49→20:13)
--- NOTE | 2018-12-31 10:42 | Nephrology Progress Note ---
Assessment/Plan Problem List: (1) Acute on chronic renal failure (2) Acute and chronic respiratory failure (3) Pneumothorax (4) Cardiomyopathy Assessment acute on chronic Renal failure Acute on chronic respiratory failure Pneumothorax Anemia UTI HypoAlbuminemia HTN PEG Sz Disorder Cardiomyopathy Full code status ! . Plan start Midodrine GT DC amiodarone for bradycardia D5W as needed K Phos as needed stop synthroid- very low TSH- recheck TSH Monitor renal parameters Anemia bryant antibiotics avoid nephrotoxics optimize cardiac and pulm status per orders Subjective ROS Limited/Unobtainable: Yes Objective Objective Last 24 Hour Vital Signs Date Time Temp Pulse Resp B/P (MAP) Pulse Ox O2 Delivery O2 Flow Rate FiO2 12/31/18 08:58 66 22 35 12/31/18 08:00 45 12/31/18 08:00 35 12/31/18 08:00 Mechanical Ventilator 12/31/18 08:00 98.2 60 20 148/118 (128) 100 12/31/18 07:09 53 20 35 12/31/18 07:00 45 16 133/105 (114) 100 12/31/18 06:00 59 18 153/114 (127) 100 12/31/18 05:20 45 16 35 12/31/18 05:00 59 18 128/60 (82) 100 12/31/18 04:00 35 12/31/18 04:00 57 12/31/18 04:00 98.3 59 18 140/51 (80) 100 12/31/18 04:00 Mechanical Ventilator 12/31/18 03:15 52 16 35 12/31/18 03:00 57 18 135/50 (78) 100 12/31/18 02:00 60 17 120/48 (72) 100 12/31/18 01:24 66 17 35 12/31/18 01:00 47 16 110/45 (66) 100 12/31/18 00:00 Mechanical Ventilator 12/31/18 00:00 51 12/31/18 00:00 35 12/31/18 00:00 99.3 51 16 98/59 (72) 100 12/30/18 23:26 60 20 35 12/30/18 23:00 59 25 118/65 (82) 100 12/30/18 22:00 60 18 137/85 (102) 100 12/30/18 21:06 73 24 35 12/30/18 21:00 58 18 122/56 (78) 100 12/30/18 20:14 128/60 12/30/18 20:00 35 12/30/18 20:00 98.9 55 18 116/55 (75) 100 12/30/18 20:00 55 12/30/18 20:00 Mechanical Ventilator 12/30/18 19:29 84 23 35 12/30/18 19:00 59 18 128/60 (82) 100 12/30/18 18:00 56 21 123/66 (85) 100 12/30/18 17:12 64 18 35 12/30/18 17:00 99.0 62 21 121/60 (80) 100 12/30/18 16:00 Mechanical Ventilator 12/30/18 16:00 49 16 134/65 (88) 100 12/30/18 16:00 35 12/30/18 16:00 47 12/30/18 15:30 66 20 35 12/30/18 15:00 52 16 128/49 (75) 100 12/30/18 14:00 63 22 121/54 (76) 100 12/30/18 13:16 65 20 35 12/30/18 13:00 98.9 62 19 111/84 (93) 100 12/30/18 12:00 Mechanical Ventilator 12/30/18 12:00 35 12/30/18 12:00 61 12/30/18 12:00 61 18 101/47 (65) 100 12/30/18 11:18 63 20 35 12/30/18 11:00 53 16 91/46 (61) 99 Intake and Output 12/30/18 12/31/18 19:00 07:00 Intake Total 900 ml 1010 ml Output Total 740 ml 380 ml Balance 160 ml 630 ml Free Water 180 ml 180 ml IV Total 110 ml Tube Feeding 720 ml 720 ml Output Urine Total 690 ml 380 ml Stool Total 50 ml Laboratory Tests 12/31/18 04:00: White Blood Count 12.6H, Red Blood Count 3.08L, Hemoglobin 9.2L, Hematocrit 28.2L, Mean Corpuscular Volume 91, Mean Corpuscular Hemoglobin 29.7, Mean Corpuscular Hemoglobin Concent 32.5, Red Cell Distribution Width 13.1, Platelet Count 319, Mean Platelet Volume 6.6, Neutrophils (%) (Auto) 66.3, Lymphocytes (% ) (Auto) 22.7, Monocytes (%) (Auto) 4.5, Eosinophils (%) (Auto) 5.8H, Basophils (%) (Auto) 0.8, Sodium Level 149H, Potassium Level 4.0, Chloride Level 112H, Carbon Dioxide Level 31, Anion Gap 6, Blood Urea Nitrogen 16, Creatinine 1.0, Estimat Glomerular Filtration Rate , Glucose Level 105, Calcium Level 9.5, Phosphorus Level 2.8, Magnesium Level 2.2, Total Bilirubin 0.1L, Direct Bilirubin < 0.1, Aspartate Amino Transf (AST/SGOT) 16, Alanine Aminotransferase (ALT/SGPT) 20, Alkaline Phosphatase 77, Pro-B-Type Natriuretic Peptide 675H, Total Protein 8.3H, Albumin 2.5L 12/31/18 08:25: Arterial Blood pH 7.402, Arterial Blood Partial Pressure CO2 48.3H, Arterial Blood Partial Pressure O2 65.0L, Arterial Blood HCO3 29.4H, Arterial Blood Oxygen Saturation 92.1L, Arterial Blood Base Excess 4.0H, Luís Test Positive Height (Feet): 5 Height (Inches): 5.00 Weight (Pounds): 132 EENT: other - vented Cardiovascular: bradycardia Respiratory/Chest: decreased breath sounds Abdomen: distended Objective no change Tono Case MD December 31, 2018 10:42
--- NOTE | 2018-12-31 10:50 | NUR ---
RD ASSESSMENT & RECOMMENDATIONS SEE CARE ACTIVITY FOR COMPLETE ASSESSMENT DAILY ESTIMATED NEEDS: Needs based on Critical Care, wound 63kg 22-28 kcals/kg 2047-2290 total kcals 1.25-2 g protein/kg 78-126 g total protein 25-30 mL/kg 1062-7260 total fluid mLs NUTRITION DIAGNOSIS: * Swallowing difficulty R/T respiratory status, dysphagia as evidenced by pt is trach/vent + PEG dep, on GT feeding. * Increased kcal/prot needs R/T wound healing as evidenced by pt admitted w/ full thickness pressure injury to R lateral malleolus and resolving pressure injury to L lateral malleolus CURRENT TF:Glucerna 1.2 @60ml x22 hrs ENTERAL NUTRITION RECOMMENDATIONS: Glucerna 1.2 @ 55ml/hr x 24 hrs + Prosource 1pkt QD to provide 1320ml, 1584kcal, 79g + 11g prot, 1065ml free water - PT IS NO LONGER ON SYNTHROID/ TF to run continuous 24 hrs -> rec to change rate and run time to 55ml/hr x 24 hrs - Add Prosource 1pkt daily to better meet protein needs. - HOB >30 degrees/ water flushes per MD - TF @ goal provides 100% of RDI. ---- ADDITIONAL RECOMMENDATIONS: 1) Calibrated bedscale wts 2) Monitor lytes, replete as needed (phos mg not updated) 3) Monitor BGs closely, need for hypoglycemic agents (BG 245 upon adm, now improved) 4) Wound healing: continue Vit C, add Tommie 1pkt BID 5) Consider increase water flushes for hypernatremia (149, trending up)
--- NOTE | 2018-12-31 10:55 | Pulmonolgy Critical Care Note ---
Critical Care - Asmt/Plan Problems: (1) Acute and chronic respiratory failure (2) Pneumothorax (3) Hypernatremia (4) Seizure disorder (5) Chronic vegetative state (6) Feeding by G-tube (7) Cardiomyopathy Respiratory: monitor respiratory rate, adjust FIO2, CXR Cardiac: continue pressors, continue to monitor HR/BP Renal: F/U I&O, keep IV fluid Infectious Disease: check cultures Gastrointestinal: continue feedings/current rate Endocrine: monitor blood sugar, continue sliding scale insulin Hematologic: monitor H/H, transfuse if hgb<8.5 Neurologic: PRN Ativan, keep patient comfortable Affect: PRN ativan 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, 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, 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, 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 - Objective Last 24 Hour Vital Signs Date Time Temp Pulse Resp B/P (MAP) Pulse Ox O2 Delivery O2 Flow Rate FiO2 12/31/18 08:58 66 22 35 12/31/18 08:00 45 12/31/18 08:00 35 12/31/18 08:00 Mechanical Ventilator 12/31/18 08:00 98.2 60 20 148/118 (128) 100 12/31/18 07:09 53 20 35 12/31/18 07:00 45 16 133/105 (114) 100 12/31/18 06:00 59 18 153/114 (127) 100 12/31/18 05:20 45 16 35 12/31/18 05:00 59 18 128/60 (82) 100 12/31/18 04:00 35 12/31/18 04:00 57 12/31/18 04:00 98.3 59 18 140/51 (80) 100 12/31/18 04:00 Mechanical Ventilator 12/31/18 03:15 52 16 35 12/31/18 03:00 57 18 135/50 (78) 100 12/31/18 02:00 60 17 120/48 (72) 100 12/31/18 01:24 66 17 35 12/31/18 01:00 47 16 110/45 (66) 100 12/31/18 00:00 Mechanical Ventilator 12/31/18 00:00 51 12/31/18 00:00 35 12/31/18 00:00 99.3 51 16 98/59 (72) 100 12/30/18 23:26 60 20 35 12/30/18 23:00 59 25 118/65 (82) 100 12/30/18 22:00 60 18 137/85 (102) 100 12/30/18 21:06 73 24 35 12/30/18 21:00 58 18 122/56 (78) 100 12/30/18 20:14 128/60 12/30/18 20:00 35 12/30/18 20:00 98.9 55 18 116/55 (75) 100 12/30/18 20:00 55 12/30/18 20:00 Mechanical Ventilator 12/30/18 19:29 84 23 35 12/30/18 19:00 59 18 128/60 (82) 100 12/30/18 18:00 56 21 123/66 (85) 100 12/30/18 17:12 64 18 35 12/30/18 17:00 99.0 62 21 121/60 (80) 100 12/30/18 16:00 Mechanical Ventilator 12/30/18 16:00 49 16 134/65 (88) 100 12/30/18 16:00 35 12/30/18 16:00 47 12/30/18 15:30 66 20 35 12/30/18 15:00 52 16 128/49 (75) 100 12/30/18 14:00 63 22 121/54 (76) 100 12/30/18 13:16 65 20 35 12/30/18 13:00 98.9 62 19 111/84 (93) 100 12/30/18 12:00 Mechanical Ventilator 12/30/18 12:00 35 12/30/18 12:00 61 12/30/18 12:00 61 18 101/47 (65) 100 12/30/18 11:18 63 20 35 12/30/18 11:00 53 16 91/46 (61) 99 Status: awake Condition: critical Neck: full ROM Lungs: clear Heart: HR/BP stable, HR/BP unstable Abdomen: soft, non-tender Extremities: no C/C/E, edema Critical Care - Subjective ROS Limited/Unobtainable: No Condition: critical EKG Rhythm: Sinus Rhythm FI02: 35 Vent Support Breath Rate: 16 Vent Support Mode: AC Vent Tidal Volume: 500 Sputum Amount: Small PEEP: 5.0 PIP: 28 Tube Feeding Amount: 60 I&O: Intake and Output 12/30/18 12/31/18 19:00 07:00 Intake Total 900 ml 1010 ml Output Total 740 ml 380 ml Balance 160 ml 630 ml Free Water 180 ml 180 ml IV Total 110 ml Tube Feeding 720 ml 720 ml Output Urine Total 690 ml 380 ml Stool Total 50 ml CXR: trach in place ET-Tube: 7.0 ET Position: 24 Labs: Laboratory Tests Test 12/31/18 04:00 12/31/18 08:25 White Blood Count 12.6 K/UL (4.8-10.8) H Red Blood Count 3.08 M/UL (4.20-5.40) L Hemoglobin 9.2 G/DL (12.0-16.0) L Hematocrit 28.2 % (37.0-47.0) L Mean Corpuscular Volume 91 FL (80-99) Mean Corpuscular Hemoglobin 29.7 PG (27.0-31.0) Mean Corpuscular Hemoglobin Concent 32.5 G/DL (32.0-36.0) Red Cell Distribution Width 13.1 % (11.6-14.8) Platelet Count 319 K/UL (150-450) Mean Platelet Volume 6.6 FL (6.5-10.1) Neutrophils (%) (Auto) 66.3 % (45.0-75.0) Lymphocytes (%) (Auto) 22.7 % (20.0-45.0) Monocytes (%) (Auto) 4.5 % (1.0-10.0) Eosinophils (%) (Auto) 5.8 % (0.0-3.0) H Basophils (%) (Auto) 0.8 % (0.0-2.0) Sodium Level 149 MMOL/L (136-145) H Potassium Level 4.0 MMOL/L (3.5-5.1) Chloride Level 112 MMOL/L (98-107) H Carbon Dioxide Level 31 MMOL/L (21-32) Anion Gap 6 mmol/L (5-15) Blood Urea Nitrogen 16 mg/dL (7-18) Creatinine 1.0 MG/DL (0.55-1.30) Estimat Glomerular Filtration Rate mL/min (>60) Glucose Level 105 MG/DL (74-106) Calcium Level 9.5 MG/DL (8.5-10.1) Phosphorus Level 2.8 MG/DL (2.5-4.9) Magnesium Level 2.2 MG/DL (1.8-2.4) Total Bilirubin 0.1 MG/DL (0.2-1.0) L Direct Bilirubin < 0.1 MG/DL (0.0-0.3) Aspartate Amino Transf (AST/SGOT) 16 U/L (15-37) Alanine Aminotransferase (ALT/SGPT) 20 U/L (12-78) Alkaline Phosphatase 77 U/L (46-116) Pro-B-Type Natriuretic Peptide 675 pg/mL (0-125) H Total Protein 8.3 G/DL (6.4-8.2) H Albumin 2.5 G/DL (3.4-5.0) L Arterial Blood pH 7.402 (7.350-7.450) Arterial Blood Partial Pressure CO2 48.3 mmHg (35.0-45.0) H Arterial Blood Partial Pressure O2 65.0 mmHg (75.0-100.0) L Arterial Blood HCO3 29.4 mmol/L (22.0-26.0) H Arterial Blood Oxygen Saturation 92.1 % (95-100) L Arterial Blood Base Excess 4.0 (-2-2) H Luís Test Positive Sue Yu MD December 31, 2018 10:55
--- NOTE | 2018-12-31 10:58 | GI Progress Note ---
Assessment/Plan Problems: (1) Ileus ICD Codes: K56.7 - Ileus, unspecified SNOMED: 508264676 (2) Fecal impaction ICD Codes: K56.41 - Fecal impaction SNOMED: 68088302 (3) Malfunction of gastrostomy tube ICD Codes: K94.23 - Gastrostomy malfunction SNOMED: 661894880 (4) Feeding by G-tube ICD Codes: Z93.1 - Gastrostomy status SNOMED: 284390155, 425731323 (5) Anemia ICD Codes: D64.9 - Anemia, unspecified SNOMED: 908636332 Status: stable, unchanged Status Narrative Discussed with Dr. Skinner. Assessment/Plan neg stool ob GT site clogged, will replace if unable to unclog GI procedures on hold for now GTF GT care prn transfusions follow labs The patient was seen and examined at bedside and all new and available data was reviewed in the patients chart. I agree with the above findings, impression and plan. (Patient seen earlier today. Signature stamp does not reflect patient encounter time.). - Jad Skinner MD Subjective Subjective limited Objective Last 24 Hour Vital Signs Date Time Temp Pulse Resp B/P (MAP) Pulse Ox O2 Delivery O2 Flow Rate FiO2 12/31/18 08:58 66 22 35 12/31/18 08:00 45 12/31/18 08:00 35 12/31/18 08:00 Mechanical Ventilator 12/31/18 08:00 98.2 60 20 148/118 (128) 100 12/31/18 07:09 53 20 35 12/31/18 07:00 45 16 133/105 (114) 100 12/31/18 06:00 59 18 153/114 (127) 100 12/31/18 05:20 45 16 35 12/31/18 05:00 59 18 128/60 (82) 100 12/31/18 04:00 35 12/31/18 04:00 57 12/31/18 04:00 98.3 59 18 140/51 (80) 100 12/31/18 04:00 Mechanical Ventilator 12/31/18 03:15 52 16 35 12/31/18 03:00 57 18 135/50 (78) 100 12/31/18 02:00 60 17 120/48 (72) 100 12/31/18 01:24 66 17 35 12/31/18 01:00 47 16 110/45 (66) 100 12/31/18 00:00 Mechanical Ventilator 12/31/18 00:00 51 12/31/18 00:00 35 12/31/18 00:00 99.3 51 16 98/59 (72) 100 12/30/18 23:26 60 20 35 12/30/18 23:00 59 25 118/65 (82) 100 12/30/18 22:00 60 18 137/85 (102) 100 12/30/18 21:06 73 24 35 12/30/18 21:00 58 18 122/56 (78) 100 12/30/18 20:14 128/60 12/30/18 20:00 35 12/30/18 20:00 98.9 55 18 116/55 (75) 100 12/30/18 20:00 55 12/30/18 20:00 Mechanical Ventilator 12/30/18 19:29 84 23 35 12/30/18 19:00 59 18 128/60 (82) 100 12/30/18 18:00 56 21 123/66 (85) 100 12/30/18 17:12 64 18 35 12/30/18 17:00 99.0 62 21 121/60 (80) 100 12/30/18 16:00 Mechanical Ventilator 12/30/18 16:00 49 16 134/65 (88) 100 12/30/18 16:00 35 12/30/18 16:00 47 12/30/18 15:30 66 20 35 12/30/18 15:00 52 16 128/49 (75) 100 12/30/18 14:00 63 22 121/54 (76) 100 12/30/18 13:16 65 20 35 12/30/18 13:00 98.9 62 19 111/84 (93) 100 12/30/18 12:00 Mechanical Ventilator 12/30/18 12:00 35 12/30/18 12:00 61 12/30/18 12:00 61 18 101/47 (65) 100 12/30/18 11:18 63 20 35 12/30/18 11:00 53 16 91/46 (61) 99 Intake and Output 12/30/18 12/31/18 19:00 07:00 Intake Total 900 ml 1010 ml Output Total 740 ml 380 ml Balance 160 ml 630 ml Free Water 180 ml 180 ml IV Total 110 ml Tube Feeding 720 ml 720 ml Output Urine Total 690 ml 380 ml Stool Total 50 ml Laboratory Tests Test 12/31/18 04:00 12/31/18 08:25 White Blood Count 12.6 K/UL (4.8-10.8) H Red Blood Count 3.08 M/UL (4.20-5.40) L Hemoglobin 9.2 G/DL (12.0-16.0) L Hematocrit 28.2 % (37.0-47.0) L Mean Corpuscular Volume 91 FL (80-99) Mean Corpuscular Hemoglobin 29.7 PG (27.0-31.0) Mean Corpuscular Hemoglobin Concent 32.5 G/DL (32.0-36.0) Red Cell Distribution Width 13.1 % (11.6-14.8) Platelet Count 319 K/UL (150-450) Mean Platelet Volume 6.6 FL (6.5-10.1) Neutrophils (%) (Auto) 66.3 % (45.0-75.0) Lymphocytes (%) (Auto) 22.7 % (20.0-45.0) Monocytes (%) (Auto) 4.5 % (1.0-10.0) Eosinophils (%) (Auto) 5.8 % (0.0-3.0) H Basophils (%) (Auto) 0.8 % (0.0-2.0) Sodium Level 149 MMOL/L (136-145) H Potassium Level 4.0 MMOL/L (3.5-5.1) Chloride Level 112 MMOL/L (98-107) H Carbon Dioxide Level 31 MMOL/L (21-32) Anion Gap 6 mmol/L (5-15) Blood Urea Nitrogen 16 mg/dL (7-18) Creatinine 1.0 MG/DL (0.55-1.30) Estimat Glomerular Filtration Rate mL/min (>60) Glucose Level 105 MG/DL (74-106) Calcium Level 9.5 MG/DL (8.5-10.1) Phosphorus Level 2.8 MG/DL (2.5-4.9) Magnesium Level 2.2 MG/DL (1.8-2.4) Total Bilirubin 0.1 MG/DL (0.2-1.0) L Direct Bilirubin < 0.1 MG/DL (0.0-0.3) Aspartate Amino Transf (AST/SGOT) 16 U/L (15-37) Alanine Aminotransferase (ALT/SGPT) 20 U/L (12-78) Alkaline Phosphatase 77 U/L (46-116) Pro-B-Type Natriuretic Peptide 675 pg/mL (0-125) H Total Protein 8.3 G/DL (6.4-8.2) H Albumin 2.5 G/DL (3.4-5.0) L Arterial Blood pH 7.402 (7.350-7.450) Arterial Blood Partial Pressure CO2 48.3 mmHg (35.0-45.0) H Arterial Blood Partial Pressure O2 65.0 mmHg (75.0-100.0) L Arterial Blood HCO3 29.4 mmol/L (22.0-26.0) H Arterial Blood Oxygen Saturation 92.1 % (95-100) L Arterial Blood Base Excess 4.0 (-2-2) H Luís Test Positive Height (Feet): 5 Height (Inches): 5.00 Weight (Pounds): 132 General Appearance: WD/WN, no apparent distress, alert Cardiovascular: normal rate Respiratory/Chest: normal breath sounds, no respiratory distress Abdominal Exam: normal bowel sounds, non tender, soft, GT site - clogged Extremities: non-tender Svetlana French NP December 31, 2018 10:58
--- NOTE | 2018-12-31 12:00 | NUR ---
NURSE NOTES: Called Cole and informed that GTube remained clogged after declogging it with soda,ordered to get a Martiniquais 18 tube and he will come by in the afternoon to insert it.
--- NOTE | 2018-12-31 12:45 | Diagnostic Imaging Report ---
Indication: Dyspnea Comparison: 12/30/2018 A single view chest radiograph was obtained. Findings: Vascular prominence and interstitial densities are present with cardiomegaly. Tracheostomy and PICC line are stable. IMPRESSION: No bladder changer the last day. Mild CHF may be present. Correlate clinically.
--- NOTE | 2018-12-31 12:47 | Diagnostic Imaging Report ---
Indication: Dyspnea Comparison: 12/30/2018 A single view chest radiograph was obtained. Findings: Vascular and interstitial prominence with cardiomegaly demonstrated. PICC line and tracheostomy noted. IMPRESSION: Query mild CHF. Correlate clinically
--- NOTE | 2018-12-31 12:53 | NUR ---
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 MALFUNCTION GT VS: BP 118/48, P 46, T 98.4, RR 22, SpO2 100 on VENT AC 16, TV 500, PEEP 5.0, FiO2 35 WBC 12.6, RBC 3.08, H&H 9.2/28.2, Na 149 CXR: Vascular prominence and interstitial densities are present with cardiomegaly. IS:HEPARIN SUBQ MIDODRINE 5mg CEFEPIME 55ml ICU STATUS
--- NOTE | 2018-12-31 13:05 | NUR ---
RESPIRATORY NOTE: RECEIVED PT ON CURRENT VENT SETTINGS AC 16 500 FIO2 35% PEEP +5. PT FRANCHESCA CURRENT VENT SETTINGS WELL. SHILEY 6 TRACH SECURE AND PATENT. SX SMALL THIN CLEAR SECRETIONS. NO RESP DISTRESS NOTED. VENT PLUGGED INTO RED OUTLET. ALARMS ON AND AUDIBLE. SPARE TRACH AND AMBU BAG AT BEDSIDE. WILL CONTINUE MONITORING PT.
--- NOTE | 2018-12-31 13:16 | Surgery Progress Note ---
Surgery Progress Note Subjective Procedure Performed tracheostomy bronchoscopy Additional Comments improving cxr stable exam improved. edema in face and subq tissue resolving Objective Last 24 Hour Vital Signs Date Time Temp Pulse Resp B/P (MAP) Pulse Ox O2 Delivery O2 Flow Rate FiO2 12/31/18 12:00 57 12/31/18 12:00 Mechanical Ventilator 12/31/18 12:00 35 12/31/18 12:00 98.4 58 118/48 (71) 100 12/31/18 11:15 46 16 35 12/31/18 11:00 63 19 107/45 (65) 12/31/18 10:00 58 18 133/69 (90) 12/31/18 09:00 55 20 138/86 (103) 12/31/18 08:58 66 22 35 12/31/18 08:00 45 12/31/18 08:00 35 12/31/18 08:00 Mechanical Ventilator 12/31/18 08:00 98.2 60 20 148/118 (128) 100 12/31/18 07:09 53 20 35 12/31/18 07:00 45 16 133/105 (114) 100 12/31/18 06:00 59 18 153/114 (127) 100 12/31/18 05:20 45 16 35 12/31/18 05:00 59 18 128/60 (82) 100 12/31/18 04:00 35 12/31/18 04:00 57 12/31/18 04:00 98.3 59 18 140/51 (80) 100 12/31/18 04:00 Mechanical Ventilator 12/31/18 03:15 52 16 35 12/31/18 03:00 57 18 135/50 (78) 100 12/31/18 02:00 60 17 120/48 (72) 100 12/31/18 01:24 66 17 35 12/31/18 01:00 47 16 110/45 (66) 100 12/31/18 00:00 Mechanical Ventilator 12/31/18 00:00 51 12/31/18 00:00 35 12/31/18 00:00 99.3 51 16 98/59 (72) 100 12/30/18 23:26 60 20 35 12/30/18 23:00 59 25 118/65 (82) 100 12/30/18 22:00 60 18 137/85 (102) 100 12/30/18 21:06 73 24 35 12/30/18 21:00 58 18 122/56 (78) 100 12/30/18 20:14 128/60 12/30/18 20:00 35 12/30/18 20:00 98.9 55 18 116/55 (75) 100 12/30/18 20:00 55 12/30/18 20:00 Mechanical Ventilator 12/30/18 19:29 84 23 35 12/30/18 19:00 59 18 128/60 (82) 100 12/30/18 18:00 56 21 123/66 (85) 100 12/30/18 17:12 64 18 35 12/30/18 17:00 99.0 62 21 121/60 (80) 100 12/30/18 16:00 Mechanical Ventilator 12/30/18 16:00 49 16 134/65 (88) 100 12/30/18 16:00 35 12/30/18 16:00 47 12/30/18 15:30 66 20 35 12/30/18 15:00 52 16 128/49 (75) 100 12/30/18 14:00 63 22 121/54 (76) 100 12/30/18 13:16 65 20 35 I&O Intake and Output 12/30/18 12/31/18 19:00 07:00 Intake Total 900 ml 1010 ml Output Total 740 ml 380 ml Balance 160 ml 630 ml Free Water 180 ml 180 ml IV Total 110 ml Tube Feeding 720 ml 720 ml Output Urine Total 690 ml 380 ml Stool Total 50 ml Dressing: saturated Wound: clean Drains: other Cardiovascular: RSR Respiratory: clear Abdomen: soft, present bowel sounds, non-distended Extremities: no cyanosis Laboratory Tests Test 12/31/18 04:00 12/31/18 08:25 White Blood Count 12.6 K/UL (4.8-10.8) H Red Blood Count 3.08 M/UL (4.20-5.40) L Hemoglobin 9.2 G/DL (12.0-16.0) L Hematocrit 28.2 % (37.0-47.0) L Mean Corpuscular Volume 91 FL (80-99) Mean Corpuscular Hemoglobin 29.7 PG (27.0-31.0) Mean Corpuscular Hemoglobin Concent 32.5 G/DL (32.0-36.0) Red Cell Distribution Width 13.1 % (11.6-14.8) Platelet Count 319 K/UL (150-450) Mean Platelet Volume 6.6 FL (6.5-10.1) Neutrophils (%) (Auto) 66.3 % (45.0-75.0) Lymphocytes (%) (Auto) 22.7 % (20.0-45.0) Monocytes (%) (Auto) 4.5 % (1.0-10.0) Eosinophils (%) (Auto) 5.8 % (0.0-3.0) H Basophils (%) (Auto) 0.8 % (0.0-2.0) Sodium Level 149 MMOL/L (136-145) H Potassium Level 4.0 MMOL/L (3.5-5.1) Chloride Level 112 MMOL/L (98-107) H Carbon Dioxide Level 31 MMOL/L (21-32) Anion Gap 6 mmol/L (5-15) Blood Urea Nitrogen 16 mg/dL (7-18) Creatinine 1.0 MG/DL (0.55-1.30) Estimat Glomerular Filtration Rate mL/min (>60) Glucose Level 105 MG/DL (74-106) Calcium Level 9.5 MG/DL (8.5-10.1) Phosphorus Level 2.8 MG/DL (2.5-4.9) Magnesium Level 2.2 MG/DL (1.8-2.4) Total Bilirubin 0.1 MG/DL (0.2-1.0) L Direct Bilirubin < 0.1 MG/DL (0.0-0.3) Aspartate Amino Transf (AST/SGOT) 16 U/L (15-37) Alanine Aminotransferase (ALT/SGPT) 20 U/L (12-78) Alkaline Phosphatase 77 U/L (46-116) Pro-B-Type Natriuretic Peptide 675 pg/mL (0-125) H Total Protein 8.3 G/DL (6.4-8.2) H Albumin 2.5 G/DL (3.4-5.0) L Arterial Blood pH 7.402 (7.350-7.450) Arterial Blood Partial Pressure CO2 48.3 mmHg (35.0-45.0) H Arterial Blood Partial Pressure O2 65.0 mmHg (75.0-100.0) L Arterial Blood HCO3 29.4 mmol/L (22.0-26.0) H Arterial Blood Oxygen Saturation 92.1 % (95-100) L Arterial Blood Base Excess 4.0 (-2-2) H Luís Test Positive Plan Problems: (1) Pneumomediastinum (2) Hypoxia (3) Pneumonia (4) Pneumothorax Assessment & Plan: bilateral chest tubes placed prior small air leak noted - resolved on suction CXR with resolved ptx. lots of subcutaneous air. - improving Chest tubes removed at bedside AM CXR (5) Hypernatremia (6) Hypotension (7) Anemia (8) Seizure disorder (9) Septic shock Assessment & Plan: In ICU intubated on vent - now with trach CXR noted labs noted cont IV ABx cont vent chest tubes -removed critically ill prognosis guarded (10) HTN (hypertension) (11) Cardiomyopathy (12) Sepsis (13) Acute and chronic respiratory failure (14) Tracheostomy care Assessment & Plan: s/p trach (15) Bowel obstruction (16) Feeding by G-tube Assessment & Plan: DAILY ESTIMATED NEEDS: Needs based on Critical Care, wound 63kg 22-28 kcals/kg 3056-3146 total kcals 1.25-2 g protein/kg 78-126 g total protein 25-30 mL/kg 2843-7642 total fluid mLs NUTRITION DIAGNOSIS: * Swallowing difficulty R/T respiratory status, dysphagia as evidenced by pt is trach/vent + PEG dep, s/p respiratory distress, currently orally intubated, NPO. * Increased kcal/prot needs R/T wound healing as evidenced by pt admitted w/ BL malleolus wounds, pending eval. CURRENT TF:NPO ENTERAL NUTRITION RECOMMENDATIONS: Glucerna 1.2 @ 60ml/hr x 22 hrs + Prosource 1pkt daily to provide 1320ml, 1584kcal, 79g + 11g prot, 1065ml free water - Once medically appropriate, initiate TF on Glucerna 1.2 @ 20ml/hr x 6 hrs. - Advance 10ml q 4-6 hrs as tolerated to goal rate - HOB >30 degrees/ water flushes per MD - Add Prosource 1pkt daily to better meet protein needs. - Hold 1 hour before and after Synthroid med. ADDITIONAL RECOMMENDATIONS: 1) Calibrated bedscale wts 2) Monitor lytes, replete as needed 3) Monitor BGs closely, need for hypoglycemic agents (BG 245 upon adm, now improved) 4) F/up w/ wound eval -Rec Tommie 1pkt BID and Vit C 250mg QD for wound healing (17) Malfunction of gastrostomy tube (18) Chronic respiratory failure (19) Chronic vegetative state (20) Nosocomial pneumonia (21) Fecal impaction (22) ATN (acute tubular necrosis) (23) Ileus (24) Acute on chronic renal failure (25) UTI (urinary tract infection) Livan Dean December 31, 2018 13:16
--- NOTE | 2018-12-31 13:50 | General Progress Note ---
Assessment/Plan Problem List: (1) Acute and chronic respiratory failure ICD Codes: J96.20 - Acute and chronic respiratory failure, unspecified whether with hypoxia or hypercapnia SNOMED: 72863030 (2) Sepsis ICD Codes: A41.9 - Sepsis, unspecified organism SNOMED: 35905501 (3) HTN (hypertension) ICD Codes: I10 - Essential (primary) hypertension SNOMED: 37090419 (4) Seizure disorder ICD Codes: G40.909 - Epilepsy, unspecified, not intractable, without status epilepticus SNOMED: 263866436 (5) ATN (acute tubular necrosis) ICD Codes: N17.0 - Acute kidney failure with tubular necrosis SNOMED: 04430212 Status: unchanged Assessment/Plan: vent abx neph f/u cbc bmp am ltach eval Subjective Constitutional: Reports: weakness Allergies: Coded Allergies: ASPIRIN (Verified Allergy, Unknown, 07/07/17) All Systems: reviewed and negative except above Subjective trach vent altered in icu Objective Last 24 Hour Vital Signs Date Time Temp Pulse Resp B/P (MAP) Pulse Ox O2 Delivery O2 Flow Rate FiO2 12/31/18 13:05 59 20 35 12/31/18 12:00 57 12/31/18 12:00 Mechanical Ventilator 12/31/18 12:00 35 12/31/18 12:00 98.4 58 118/48 (71) 100 12/31/18 11:15 46 16 35 12/31/18 11:00 63 19 107/45 (65) 12/31/18 10:00 58 18 133/69 (90) 12/31/18 09:00 55 20 138/86 (103) 12/31/18 08:58 66 22 35 12/31/18 08:00 45 12/31/18 08:00 35 12/31/18 08:00 Mechanical Ventilator 12/31/18 08:00 98.2 60 20 148/118 (128) 100 12/31/18 07:09 53 20 35 12/31/18 07:00 45 16 133/105 (114) 100 12/31/18 06:00 59 18 153/114 (127) 100 12/31/18 05:20 45 16 35 12/31/18 05:00 59 18 128/60 (82) 100 12/31/18 04:00 35 12/31/18 04:00 57 12/31/18 04:00 98.3 59 18 140/51 (80) 100 12/31/18 04:00 Mechanical Ventilator 12/31/18 03:15 52 16 35 12/31/18 03:00 57 18 135/50 (78) 100 12/31/18 02:00 60 17 120/48 (72) 100 12/31/18 01:24 66 17 35 12/31/18 01:00 47 16 110/45 (66) 100 12/31/18 00:00 Mechanical Ventilator 12/31/18 00:00 51 12/31/18 00:00 35 12/31/18 00:00 99.3 51 16 98/59 (72) 100 12/30/18 23:26 60 20 35 12/30/18 23:00 59 25 118/65 (82) 100 12/30/18 22:00 60 18 137/85 (102) 100 12/30/18 21:06 73 24 35 12/30/18 21:00 58 18 122/56 (78) 100 12/30/18 20:14 128/60 12/30/18 20:00 35 12/30/18 20:00 98.9 55 18 116/55 (75) 100 12/30/18 20:00 55 12/30/18 20:00 Mechanical Ventilator 12/30/18 19:29 84 23 35 12/30/18 19:00 59 18 128/60 (82) 100 12/30/18 18:00 56 21 123/66 (85) 100 12/30/18 17:12 64 18 35 12/30/18 17:00 99.0 62 21 121/60 (80) 100 12/30/18 16:00 Mechanical Ventilator 12/30/18 16:00 49 16 134/65 (88) 100 12/30/18 16:00 35 12/30/18 16:00 47 12/30/18 15:30 66 20 35 12/30/18 15:00 52 16 128/49 (75) 100 12/30/18 14:00 63 22 121/54 (76) 100 Intake and Output 12/30/18 12/31/18 19:00 07:00 Intake Total 900 ml 1010 ml Output Total 740 ml 380 ml Balance 160 ml 630 ml Free Water 180 ml 180 ml IV Total 110 ml Tube Feeding 720 ml 720 ml Output Urine Total 690 ml 380 ml Stool Total 50 ml Laboratory Tests 12/31/18 04:00: White Blood Count 12.6H, Red Blood Count 3.08L, Hemoglobin 9.2L, Hematocrit 28.2L, Mean Corpuscular Volume 91, Mean Corpuscular Hemoglobin 29.7, Mean Corpuscular Hemoglobin Concent 32.5, Red Cell Distribution Width 13.1, Platelet Count 319, Mean Platelet Volume 6.6, Neutrophils (%) (Auto) 66.3, Lymphocytes (% ) (Auto) 22.7, Monocytes (%) (Auto) 4.5, Eosinophils (%) (Auto) 5.8H, Basophils (%) (Auto) 0.8, Sodium Level 149H, Potassium Level 4.0, Chloride Level 112H, Carbon Dioxide Level 31, Anion Gap 6, Blood Urea Nitrogen 16, Creatinine 1.0, Estimat Glomerular Filtration Rate , Glucose Level 105, Calcium Level 9.5, Phosphorus Level 2.8, Magnesium Level 2.2, Total Bilirubin 0.1L, Direct Bilirubin < 0.1, Aspartate Amino Transf (AST/SGOT) 16, Alanine Aminotransferase (ALT/SGPT) 20, Alkaline Phosphatase 77, Pro-B-Type Natriuretic Peptide 675H, Total Protein 8.3H, Albumin 2.5L 12/31/18 08:25: Arterial Blood pH 7.402, Arterial Blood Partial Pressure CO2 48.3H, Arterial Blood Partial Pressure O2 65.0L, Arterial Blood HCO3 29.4H, Arterial Blood Oxygen Saturation 92.1L, Arterial Blood Base Excess 4.0H, Luís Test Positive Height (Feet): 5 Height (Inches): 5.00 Weight (Pounds): 132 General Appearance: alert EENT: normal ENT inspection Neck: normal alignment Cardiovascular: normal peripheral pulses, normal rate, regular rhythm Respiratory/Chest: chest wall non-tender, lungs clear, normal breath sounds Abdomen: normal bowel sounds, non tender, soft Extremities: normal inspection Edema: no edema noted Arm (L), no edema noted Arm (R), no edema noted Leg (L), no edema noted Leg (R), no edema noted Pedal (L), no edema noted Pedal (R), no edema noted Generalized Neurologic: motor weakness Skin: normal pigmentation, warm/dry Rl WhiteMarilee DO December 31, 2018 13:50
--- NOTE | 2018-12-31 14:17 | Infectious Diseases Prog Note ---
Assessment/Plan Assessment/Plan Assessment: Sepsis- Sp Probable PNA SCx : PSA and H. Influenza 12/28 CXR: Bilateral chest tubes, endotracheal tube remain in good position. There is also tubing over the lower chest noted. 12/24 CXR Stable satisfactory position of endotracheal tube. Bilateral chest tubes remain in place Bacteremia : CoNS ( STAPHYLOCOCCUS AURICULARIS and Epid ) m/l contaminant - 2d ECHO : no Veg Afebrile Leukocytosis, improving Hx of recurrent PNA (VAP/HAP) -10/2017 MDR PSA, H. flu -sp cx MDR ACB 07/2017, s/p Rx PnTx , Bl chest tube , removed 12/29 Acute respiratory failure, failed trach and now intubated 12/21/1812/28 SP tracheostomy 12/28 Sp bronchoscopy 12/28 Sp PEG Hypertension. 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 [facility] resident Plan: -Continue Cefepime d# / -12/26 Sp IV Vancomycin # 5 -12/25 Sp Amikacin # 3 and Zosyn # 4 -f/u cx -Monitor CBC/CMP, temperatures -ETT care -aspiration precautions Subjective Allergies: Coded Allergies: ASPIRIN (Verified Allergy, Unknown, 07/07/17) Subjective afebrile off pressors wbc stable Objective Vital Signs Last 24 Hour Vital Signs Date Time Temp Pulse Resp B/P (MAP) Pulse Ox O2 Delivery O2 Flow Rate FiO2 12/31/18 13:05 59 20 35 12/31/18 12:00 57 12/31/18 12:00 Mechanical Ventilator 12/31/18 12:00 35 12/31/18 12:00 98.4 58 118/48 (71) 100 12/31/18 11:15 46 16 35 12/31/18 11:00 63 19 107/45 (65) 12/31/18 10:00 58 18 133/69 (90) 12/31/18 09:00 55 20 138/86 (103) 12/31/18 08:58 66 22 35 12/31/18 08:00 45 12/31/18 08:00 35 12/31/18 08:00 Mechanical Ventilator 12/31/18 08:00 98.2 60 20 148/118 (128) 100 12/31/18 07:09 53 20 35 12/31/18 07:00 45 16 133/105 (114) 100 12/31/18 06:00 59 18 153/114 (127) 100 12/31/18 05:20 45 16 35 12/31/18 05:00 59 18 128/60 (82) 100 12/31/18 04:00 35 12/31/18 04:00 57 12/31/18 04:00 98.3 59 18 140/51 (80) 100 12/31/18 04:00 Mechanical Ventilator 12/31/18 03:15 52 16 35 12/31/18 03:00 57 18 135/50 (78) 100 12/31/18 02:00 60 17 120/48 (72) 100 12/31/18 01:24 66 17 35 12/31/18 01:00 47 16 110/45 (66) 100 12/31/18 00:00 Mechanical Ventilator 12/31/18 00:00 51 12/31/18 00:00 35 12/31/18 00:00 99.3 51 16 98/59 (72) 100 12/30/18 23:26 60 20 35 12/30/18 23:00 59 25 118/65 (82) 100 12/30/18 22:00 60 18 137/85 (102) 100 12/30/18 21:06 73 24 35 12/30/18 21:00 58 18 122/56 (78) 100 12/30/18 20:14 128/60 12/30/18 20:00 35 12/30/18 20:00 98.9 55 18 116/55 (75) 100 12/30/18 20:00 55 12/30/18 20:00 Mechanical Ventilator 12/30/18 19:29 84 23 35 12/30/18 19:00 59 18 128/60 (82) 100 12/30/18 18:00 56 21 123/66 (85) 100 12/30/18 17:12 64 18 35 12/30/18 17:00 99.0 62 21 121/60 (80) 100 12/30/18 16:00 Mechanical Ventilator 12/30/18 16:00 49 16 134/65 (88) 100 12/30/18 16:00 35 12/30/18 16:00 47 12/30/18 15:30 66 20 35 12/30/18 15:00 52 16 128/49 (75) 100 Height (Feet): 5 Height (Inches): 5.00 Weight (Pounds): 132 Laboratory Tests Test 12/31/18 04:00 12/31/18 08:25 White Blood Count 12.6 K/UL (4.8-10.8) H Red Blood Count 3.08 M/UL (4.20-5.40) L Hemoglobin 9.2 G/DL (12.0-16.0) L Hematocrit 28.2 % (37.0-47.0) L Mean Corpuscular Volume 91 FL (80-99) Mean Corpuscular Hemoglobin 29.7 PG (27.0-31.0) Mean Corpuscular Hemoglobin Concent 32.5 G/DL (32.0-36.0) Red Cell Distribution Width 13.1 % (11.6-14.8) Platelet Count 319 K/UL (150-450) Mean Platelet Volume 6.6 FL (6.5-10.1) Neutrophils (%) (Auto) 66.3 % (45.0-75.0) Lymphocytes (%) (Auto) 22.7 % (20.0-45.0) Monocytes (%) (Auto) 4.5 % (1.0-10.0) Eosinophils (%) (Auto) 5.8 % (0.0-3.0) H Basophils (%) (Auto) 0.8 % (0.0-2.0) Sodium Level 149 MMOL/L (136-145) H Potassium Level 4.0 MMOL/L (3.5-5.1) Chloride Level 112 MMOL/L (98-107) H Carbon Dioxide Level 31 MMOL/L (21-32) Anion Gap 6 mmol/L (5-15) Blood Urea Nitrogen 16 mg/dL (7-18) Creatinine 1.0 MG/DL (0.55-1.30) Estimat Glomerular Filtration Rate mL/min (>60) Glucose Level 105 MG/DL (74-106) Calcium Level 9.5 MG/DL (8.5-10.1) Phosphorus Level 2.8 MG/DL (2.5-4.9) Magnesium Level 2.2 MG/DL (1.8-2.4) Total Bilirubin 0.1 MG/DL (0.2-1.0) L Direct Bilirubin < 0.1 MG/DL (0.0-0.3) Aspartate Amino Transf (AST/SGOT) 16 U/L (15-37) Alanine Aminotransferase (ALT/SGPT) 20 U/L (12-78) Alkaline Phosphatase 77 U/L (46-116) Pro-B-Type Natriuretic Peptide 675 pg/mL (0-125) H Total Protein 8.3 G/DL (6.4-8.2) H Albumin 2.5 G/DL (3.4-5.0) L Arterial Blood pH 7.402 (7.350-7.450) Arterial Blood Partial Pressure CO2 48.3 mmHg (35.0-45.0) H Arterial Blood Partial Pressure O2 65.0 mmHg (75.0-100.0) L Arterial Blood HCO3 29.4 mmol/L (22.0-26.0) H Arterial Blood Oxygen Saturation 92.1 % (95-100) L Arterial Blood Base Excess 4.0 (-2-2) H Luís Test Positive Current Medications Medications (Trade) Dose Ordered Sig/Torsten Route PRN Reason Start Time Stop Time Status Last Admin Dose Admin Acetaminophen (Tylenol) 650 mg Q4H PRN GT Mild Pain/Temp > 100.5 12/23/18 13:15 01/22/19 13:14 12/29/18 16:52 Albuterol/ Ipratropium (Albuterol/ Ipratropium) 3 ml Q4H PRN HHN Shortness of Breath 12/29/18 10:30 01/03/19 10:29 Ascorbic Acid (Vitamin C) 250 mg DAILY GT 12/24/18 09:00 01/22/19 08:59 12/31/18 09:46 Cefepime HCl 2 gm/ Dextrose 55 ml @ 110 mls/hr Q24H IVPB 12/27/18 04:00 01/03/19 03:59 12/31/18 04:09 Chlorhexidine Gluconate (Mariah-Hex 2%) 1 applic DAILY@2000 TOPIC 12/25/18 20:00 01/24/19 19:59 12/30/18 20:11 Docusate Sodium (Colace) 100 mg TWICE A DAY ORAL 12/24/18 09:00 01/23/19 08:59 12/31/18 09:46 Heparin Sodium (Porcine) (Heparin 5000 units/ml) 5,000 units EVERY 12 HOURS SUBQ 12/21/18 21:00 01/20/19 20:59 12/31/18 09:49 Lactulose (Cephulac) 20 gm THREE TIMES A DAY ORAL 12/24/18 09:00 01/23/19 08:59 12/31/18 09:44 Lansoprazole (Prevacid) 30 mg BID GT 12/28/18 17:07 01/27/19 17:06 12/31/18 09:45 Midodrine (Pro-Amatine) 5 mg THREE TIMES A DAY GT 12/29/18 13:00 01/27/19 17:59 12/31/18 09:45 Norepinephrine Bitartrate 4 mg/ Dextrose 254 ml @ 0 mls/hr Q24H IV 12/21/18 22:00 01/20/19 21:59 Ondansetron HCl (Zofran) 4 mg Q6H PRN IVP Nausea & Vomiting 12/21/18 20:45 01/20/19 20:44 Polyethylene Glycol (Miralax) 17 gm DAILYPRN PRN GT Constipation 12/23/18 13:30 01/20/19 20:44 Yane Umana M.D. December 31, 2018 14:17
--- NOTE | 2018-12-31 14:35 | NUR ---
TRANSFER TO FLOOR: Patient transferred to [facility] room 234, per bed asleep in no resp distress,accompanied by ROctaviano bagging the pt. Report given to Kiana Ellis RN. NO Belongings and medications. .
--- NOTE | 2018-12-31 14:40 | NUR ---
NURSE NOTES: Received patient from Shoshana Gomez RN. Patient VS stable at this time with no sign of acute distress. Patient nonverbal and opens eyes but does not track or follow commands. Patient on trach to ventilator with setting of AC 16, TV 500, FiO2 35%, and PEEP 5. Patient has a G tube that is clogged at this time. New G tube at the bedside. Awaiting doctor to replace the tube. Patient G tube clamped at this time. Patient's tube feeding has been held since 0900 this morning. Patient has rectal tube for diarrhea and bowel obstruction. Patient has granado for urine retention that is patent and draining at this time. Patient upper extremities are contracted. Patient has a left upper arm PICC that is patent and asymptomatic at this time. 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 Patient bed in low position with bed alarm on and call light in reach at this time.
[2018-12-31] MEDS ORDERED: Albuterol/Ipratropium 3ml neb HHN PRN (15:34)
[2018-12-31] MEDS ORDERED: Acetaminophen 650mg/20.3ml GT PRN (15:34)
[2018-12-31] MEDS ORDERED: Miralax 17gm pkt GT PRN (15:35)
--- NOTE | 2018-12-31 16:59 | NUR ---
NURSE NOTES: Seen by Dr Case and Dr Yu with orders. Addendum: 12/31/18 at 1704 by FÁTIMA RODRIGUEZ RN Wrong time entered.Seen by Dr Case and Dr Yu at 1000
--- NOTE | 2018-12-31 17:00 | General Progress Note ---
Assessment/Plan Status: unchanged Assessment/Plan: Assessment and Recs: # Anemia of chronic disease due to underlying chronic medical issues, multifactorial --> Anemia workup has been ordered, rule out gi bleed --> ferritin is 610 --> No evidence of hemolysis is noted, peripheral smear has been reviewed. --> Hgb goal >7. Transfuse prn. 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 Remainder of the deep venous system within normal limits. --> on heparin sq given no acute clot # Acute on chronic Renal failure --> per renal --> cr has improved # Acute on chronic respiratory failure s/p trach with revision, s/p trach 12/28 --> Pneumothorax s/p chest tube --> trach done 12/28 --> remains on vent # UTI --> on abx --> per id # HypoAlbuminemia # HTN # PEG with Fecal impaction # Malfunction of gastrostomy tube The timing of this note does not necessarily reflect the time of the patient was seen. Greatly appreciate consultation! Subjective Constitutional: Denies: no symptoms, chills, diaphoresis, fever, malaise, weakness, other HEENT: Denies: no symptoms, eye pain, blurred vision, tearing, double vision, ear pain, ear discharge, nose pain, nose congestion, throat pain, throat swelling, mouth pain, mouth swelling, other Respiratory: Denies: no symptoms, cough, orthopnea, shortness of breath, SOB with excertion, SOB at rest, sputum, stridor, wheezing, other Genitourinary: Denies: no symptoms, burning, discharge, frequency, flank pain, hematuria, incontinence, pain, urgency, other Neurologic/Psychiatric: Denies: no symptoms, anxiety, depressed, emotional problems, headache, numbness, paresthesia, pre-existing deficit, seizure, tingling, tremors, weakness, other Endocrine: Denies: no symptoms, excessive sweating, flushing, intolerance to cold, intolerance to heat, increased hunger, increased thirst, increased urine, unexplained weight gain, unexplained weight loss, other Allergies: Coded Allergies: ASPIRIN (Verified Allergy, Unknown, 07/07/17) Subjective 12/26: no events, remains sedated, in the icu, on vent 12/27: no events noted, no f/c, considering ltach placement 12/28: trach completed today with bronch, no f/c 12/30: no events, remains in the icu, tolerating well off ct 12/31: current gtube clamped, no f/c Objective Last 24 Hour Vital Signs Date Time Temp Pulse Resp B/P (MAP) Pulse Ox O2 Delivery O2 Flow Rate FiO2 12/31/18 15:22 61 16 35 12/31/18 13:05 59 20 35 12/31/18 12:00 57 12/31/18 12:00 Mechanical Ventilator 12/31/18 12:00 35 12/31/18 12:00 98.4 58 118/48 (71) 100 12/31/18 11:15 46 16 35 12/31/18 11:00 63 19 107/45 (65) 12/31/18 10:00 58 18 133/69 (90) 12/31/18 09:00 55 20 138/86 (103) 12/31/18 08:58 66 22 35 12/31/18 08:00 45 12/31/18 08:00 35 12/31/18 08:00 Mechanical Ventilator 12/31/18 08:00 98.2 60 20 148/118 (128) 100 12/31/18 07:09 53 20 35 12/31/18 07:00 45 16 133/105 (114) 100 12/31/18 06:00 59 18 153/114 (127) 100 12/31/18 05:20 45 16 35 12/31/18 05:00 59 18 128/60 (82) 100 12/31/18 04:00 35 12/31/18 04:00 57 12/31/18 04:00 98.3 59 18 140/51 (80) 100 12/31/18 04:00 Mechanical Ventilator 12/31/18 03:15 52 16 35 12/31/18 03:00 57 18 135/50 (78) 100 12/31/18 02:00 60 17 120/48 (72) 100 12/31/18 01:24 66 17 35 12/31/18 01:00 47 16 110/45 (66) 100 12/31/18 00:00 Mechanical Ventilator 12/31/18 00:00 51 12/31/18 00:00 35 12/31/18 00:00 99.3 51 16 98/59 (72) 100 12/30/18 23:26 60 20 35 12/30/18 23:00 59 25 118/65 (82) 100 12/30/18 22:00 60 18 137/85 (102) 100 12/30/18 21:06 73 24 35 12/30/18 21:00 58 18 122/56 (78) 100 12/30/18 20:14 128/60 12/30/18 20:00 35 12/30/18 20:00 98.9 55 18 116/55 (75) 100 12/30/18 20:00 55 12/30/18 20:00 Mechanical Ventilator 12/30/18 19:29 84 23 35 12/30/18 19:00 59 18 128/60 (82) 100 12/30/18 18:00 56 21 123/66 (85) 100 12/30/18 17:12 64 18 35 12/30/18 17:00 99.0 62 21 121/60 (80) 100 Intake and Output 12/30/18 12/31/18 19:00 07:00 Intake Total 900 ml 1010 ml Output Total 740 ml 380 ml Balance 160 ml 630 ml Free Water 180 ml 180 ml IV Total 110 ml Tube Feeding 720 ml 720 ml Output Urine Total 690 ml 380 ml Stool Total 50 ml Laboratory Tests 12/31/18 04:00: White Blood Count 12.6H, Red Blood Count 3.08L, Hemoglobin 9.2L, Hematocrit 28.2L, Mean Corpuscular Volume 91, Mean Corpuscular Hemoglobin 29.7, Mean Corpuscular Hemoglobin Concent 32.5, Red Cell Distribution Width 13.1, Platelet Count 319, Mean Platelet Volume 6.6, Neutrophils (%) (Auto) 66.3, Lymphocytes (% ) (Auto) 22.7, Monocytes (%) (Auto) 4.5, Eosinophils (%) (Auto) 5.8H, Basophils (%) (Auto) 0.8, Sodium Level 149H, Potassium Level 4.0, Chloride Level 112H, Carbon Dioxide Level 31, Anion Gap 6, Blood Urea Nitrogen 16, Creatinine 1.0, Estimat Glomerular Filtration Rate , Glucose Level 105, Calcium Level 9.5, Phosphorus Level 2.8, Magnesium Level 2.2, Total Bilirubin 0.1L, Direct Bilirubin < 0.1, Aspartate Amino Transf (AST/SGOT) 16, Alanine Aminotransferase (ALT/SGPT) 20, Alkaline Phosphatase 77, Pro-B-Type Natriuretic Peptide 675H, Total Protein 8.3H, Albumin 2.5L 12/31/18 08:25: Arterial Blood pH 7.402, Arterial Blood Partial Pressure CO2 48.3H, Arterial Blood Partial Pressure O2 65.0L, Arterial Blood HCO3 29.4H, Arterial Blood Oxygen Saturation 92.1L, Arterial Blood Base Excess 4.0H, Luís Test Positive Height (Feet): 5 Height (Inches): 5.00 Weight (Pounds): 132 Objective p02 EP Interpretation: reviewed, normal General Appearance: severe distress, lethargic, obese, Stupor Head: atraumatic Eyes: bilateral eye normal inspection ENT: moist mucus membranes Neck: supple Respiratory: respiratory distress, ++ trach ++ intubated Cardiovascular: tachycardia Gastrointestinal: distended - G-tube in place Genitourinary: no CVA tenderness Musculoskeletal: other - Contractures lower extremity Neurologic: other - Unable to assess due to patient poor mental status Psychiatric: other - Unable to assess patient unconscious Micha Torres MD December 31, 2018 17:00
[2018-12-31] MEDS: Lactulose 20gm/30ml UDC GT SCH (18:00)
[2018-12-31] MEDS: Docusate 100mg/10ml Liq GT SCH (18:00)
--- NOTE | 2018-12-31 19:15 | NUR ---
HAND-OFF: Report given to RONDA Caruso. Patient Vital signs stable with no sign of acute distress.
--- NOTE | 2018-12-31 19:16 | NUR ---
NURSE NOTES: Report received from RONDA Bruno. Pt obtunded, opens eyes spontaneously, non-verbal. hospital monitor shows SB. Pt trach to ventilator dependent with shiley 8. Ventilator settings: AC16, VT500, FiO2:35%, PEEP:5. Pt tolerating settings well. Showing no signs of cardiac or respiratory distress. Pt has a GT in place but currently clogged. Relayed by nurse that [facility] will be arriving to replace GT. Smith catheter present and draining well. Pt seen with a skin tear on the stomach, bilateral Heel DTI's and bilateral malleolus wounds. a JOSE PICC is present and asymptomatic. Bed in lowest position, bed alarms placed, call light within reach. Will continue to monitor and with patients plan of care.
[2018-12-31] MEDS: Dyna-Hex 2% Top Sol 2oz TOPIC SCH (20:11)
[2019-01-01] VITALS: BP 145/66
[2019-01-01 04:00] VITALS: BP 135/55
[2019-01-01] MEDS: Cefepime HCl 2 GM in D5W 55 ML IVPB SCH (04:25)
[2019-01-01 05:32] LABS: BASOPHILS % (AUTO) 0.7 % (0.0-2.0); HEMATOCRIT 27.7 % (37.0-47.0); LYMPHOCYTES % (AUTO) 23.8 % (20.0-45.0); MEAN CORPUSCULAR VOLUME 92 FL (80-99); MONOCYTES % (AUTO) 4.4 % (1.0-10.0); NEUTROPHILS % (AUTO) 64.2 % (45.0-75.0); PLATELET COUNT 293 K/UL (150-450); RED BLOOD COUNT 3.03 M/UL (4.20-5.40); RED CELL DISTRIBUTION WIDTH 13.2 % (11.6-14.8); WHITE BLOOD COUNT 10.6 K/UL (4.8-10.8)
[2019-01-01 05:59] LABS: ALANINE AMINOTRANSFERASE 21 U/L (12-78); ALBUMIN 2.7 G/DL (3.4-5.0); ALBUMIN/GLOBULIN RATIO 0.5 (1.0-2.7); ALKALINE PHOSPHATASE 73 U/L (46-116); ANION GAP 9 mmol/L (5-15); ASPARTATE AMINO TRANSFERASE 21 U/L (15-37); BILIRUBIN,TOTAL 0.3 MG/DL (0.2-1.0); BLOOD UREA NITROGEN 16 mg/dL (7-18); CALCIUM 9.4 MG/DL (8.5-10.1); CARBON DIOXIDE 30 MMOL/L (21-32); CHLORIDE 111 MMOL/L (98-107); PHOSPHORUS 2.9 MG/DL (2.5-4.9); POTASSIUM 3.7 MMOL/L (3.5-5.1); SODIUM 150 MMOL/L (136-145)
--- NOTE | 2019-01-01 07:00 | NUR ---
RESPIRATORY NOTE:Received pt on current vent settings with shiley 8 sized trached cuffed. No s/s of distress. Vent alarms are on audible. Will cont. to monitor pt.
--- NOTE | 2019-01-01 07:15 | NUR ---
NURSE NOTES: Report given to RONDA Galvez. VSS. Pt showing no signs of acute distress.
--- NOTE | 2019-01-01 07:34 | NUR ---
NURSE NOTES: Received report from RONDA Cisneros. Observed patient in bed, awake and nonverbal, opens eyes spontaneously. Patient on vent with previous setting. GT feeding on hold d/t clogged gt. Smith catheter in place and draining well. Rectal tube intact with minimal output. PICC line intact and patent. Bed in lowest position, side rails up, call light within reach. Will continue to monitor.
[2019-01-01 08:00] VITALS: BP 110/56
[2019-01-01] MEDS: Docusate 100mg/10ml Liq GT SCH ×2 (08:23→17:37)
[2019-01-01] MEDS: Heparin 5000 units/ml inj SUBQ SCH ×2 (08:31→20:22)
--- NOTE | 2019-01-01 08:58 | NUR ---
NURSE NOTES: GT replacement done by LUCA Galvan. Patient tolerated procedure. Ordered okay to use GT, carried out.
[2019-01-01] MEDS: Lactulose 20gm/30ml UDC GT SCH ×3 (09:03→17:36)
[2019-01-01] MEDS: Ascorbic Acid 500mg tab GT SCH (09:03)
--- NOTE | 2019-01-01 10:05 | NUR ---
RADIOLOGY DEPT. CHEST X-RAY DONE.-P.DYE
--- NOTE | 2019-01-01 10:20 | General Progress Note ---
Assessment/Plan Problem List: (1) Ileus ICD Codes: K56.7 - Ileus, unspecified SNOMED: 254044568 (2) Fecal impaction ICD Codes: K56.41 - Fecal impaction SNOMED: 50807875 (3) Feeding by G-tube ICD Codes: Z93.1 - Gastrostomy status SNOMED: 485153761, 440555920 (4) Anemia ICD Codes: D64.9 - Anemia, unspecified SNOMED: 424585162 (5) HTN (hypertension) ICD Codes: I10 - Essential (primary) hypertension SNOMED: 65682754 Status: unchanged Assessment/Plan: bowel regimen neg stool ob GI procedures on hold for now GTF GT care Subjective ROS Limited/Unobtainable: No Allergies: Coded Allergies: ASPIRIN (Verified Allergy, Unknown, 07/07/17) Objective Last 24 Hour Vital Signs Date Time Temp Pulse Resp B/P (MAP) Pulse Ox O2 Delivery O2 Flow Rate FiO2 01/01/19 09:25 65 18 35 01/01/19 08:11 35 01/01/19 08:00 Mechanical Ventilator 01/01/19 08:00 53 01/01/19 08:00 98.9 57 18 110/56 (74) 99 01/01/19 07:00 61 17 35 01/01/19 05:00 55 17 35 01/01/19 04:00 Mechanical Ventilator 01/01/19 04:00 98.2 58 16 135/55 (81) 100 01/01/19 04:00 45 01/01/19 04:00 35 01/01/19 03:22 50 16 35 01/01/19 00:51 62 17 35 01/01/19 00:00 98.4 51 16 145/66 (92) 99 01/01/19 00:00 Mechanical Ventilator 01/01/19 00:00 35 01/01/19 00:00 50 12/31/18 23:08 64 16 35 12/31/18 21:15 68 17 35 12/31/18 20:00 48 12/31/18 20:00 35 12/31/18 20:00 98.2 58 16 120/70 (87) 97 12/31/18 20:00 Mechanical Ventilator 12/31/18 18:58 65 16 35 12/31/18 17:25 65 18 35 12/31/18 16:00 35 12/31/18 16:00 Mechanical Ventilator 12/31/18 16:00 49 12/31/18 16:00 97.9 46 16 122/46 (71) 99 12/31/18 15:22 61 16 35 12/31/18 13:33 60 12/31/18 13:05 59 20 35 12/31/18 12:00 57 12/31/18 12:00 Mechanical Ventilator 12/31/18 12:00 35 12/31/18 12:00 98.4 58 118/48 (71) 100 12/31/18 11:15 46 16 35 12/31/18 11:00 63 19 107/45 (65) Intake and Output 12/31/18 01/01/19 19:00 07:00 Intake Total 120 ml Output Total 425 ml 650 ml Balance -305 ml -650 ml Free Water 60 ml Tube Feeding 60 ml Output Urine Total 425 ml 650 ml Laboratory Tests 01/01/19 04:08: White Blood Count 10.6, Red Blood Count 3.03L, Hemoglobin 9.0L, Hematocrit 27.7L , Mean Corpuscular Volume 92, Mean Corpuscular Hemoglobin 29.7, Mean Corpuscular Hemoglobin Concent 32.4, Red Cell Distribution Width 13.2, Platelet Count 293, Mean Platelet Volume 6.2L, Neutrophils (%) (Auto) 64.2, Lymphocytes ( %) (Auto) 23.8, Monocytes (%) (Auto) 4.4, Eosinophils (%) (Auto) 7.0H, Basophils (%) (Auto) 0.7, Sodium Level 150H, Potassium Level 3.7, Chloride Level 111H, Carbon Dioxide Level 30, Anion Gap 9, Blood Urea Nitrogen 16, Creatinine 1.0, Estimat Glomerular Filtration Rate , Glucose Level 83, Calcium Level 9.4, Phosphorus Level 2.9, Magnesium Level 2.0, Total Bilirubin 0.3, Aspartate Amino Transf (AST/SGOT) 21, Alanine Aminotransferase (ALT/SGPT) 21, Alkaline Phosphatase 73, Total Protein 8.1, Albumin 2.7L, Globulin 5.4, Albumin/ Globulin Ratio 0.5L 01/01/19 09:12: Arterial Blood pH 7.413, Arterial Blood Partial Pressure CO2 46.3H, Arterial Blood Partial Pressure O2 121.3H, Arterial Blood HCO3 28.9H, Arterial Blood Oxygen Saturation 97.9, Arterial Blood Base Excess 3.8H, Lu[place] Test Positive Height (Feet): 5 Height (Inches): 5.00 Weight (Pounds): 140 General Appearance: no apparent distress EENT: normal ENT inspection Neck: supple Cardiovascular: normal rate Respiratory/Chest: decreased breath sounds Abdomen: normal bowel sounds, non tender, soft Extremities: non-tender Jad Skinner MD January 01, 2019 10:20
--- NOTE | 2019-01-01 11:24 | Pulmonolgy Critical Care Note ---
Critical Care - Asmt/Plan Problems: (1) Acute and chronic respiratory failure (2) Nosocomial pneumonia (3) Sepsis (4) Pneumothorax (5) Hypernatremia (6) Seizure disorder (7) Chronic vegetative state (8) Feeding by G-tube (9) Cardiomyopathy Respiratory: adjust tidal volume, monitor respiratory rate, adjust FIO2 Cardiac: continue to monitor HR/BP Renal: F/U I&O, keep IV fluid, check electrolytes Infectious Disease: check cultures, continue antibiotics Gastrointestinal: continue feedings/current rate Endocrine: monitor blood sugar Hematologic: transfuse if hgb<8.5 Neurologic: PRN Ativan, PRN Morphine, keep patient comfortable Prophylaxis: Protonix, Heparin Time Spent (Minutes): 40 Notes 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: 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, 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, consultants, geriatric case managerbuffet manager - Objective Last 24 Hour Vital Signs Date Time Temp Pulse Resp B/P (MAP) Pulse Ox O2 Delivery O2 Flow Rate FiO2 01/01/19 09:25 65 18 35 01/01/19 08:11 35 01/01/19 08:00 Mechanical Ventilator 01/01/19 08:00 53 01/01/19 08:00 98.9 57 18 110/56 (74) 99 01/01/19 07:00 61 17 35 01/01/19 05:00 55 17 35 01/01/19 04:00 Mechanical Ventilator 01/01/19 04:00 98.2 58 16 135/55 (81) 100 01/01/19 04:00 45 01/01/19 04:00 35 01/01/19 03:22 50 16 35 01/01/19 00:51 62 17 35 01/01/19 00:00 98.4 51 16 145/66 (92) 99 01/01/19 00:00 Mechanical Ventilator 01/01/19 00:00 35 01/01/19 00:00 50 12/31/18 23:08 64 16 35 12/31/18 21:15 68 17 35 12/31/18 20:00 48 12/31/18 20:00 35 12/31/18 20:00 98.2 58 16 120/70 (87) 97 12/31/18 20:00 Mechanical Ventilator 12/31/18 18:58 65 16 35 12/31/18 17:25 65 18 35 12/31/18 16:00 35 12/31/18 16:00 Mechanical Ventilator 12/31/18 16:00 49 12/31/18 16:00 97.9 46 16 122/46 (71) 99 12/31/18 15:22 61 16 35 12/31/18 13:33 60 12/31/18 13:05 59 20 35 12/31/18 12:00 57 12/31/18 12:00 Mechanical Ventilator 12/31/18 12:00 35 12/31/18 12:00 98.4 58 118/48 (71) 100 Status: awake Condition: critical, grave HEENT: atraumatic Neck: full ROM Lungs: clear Heart: HR/BP stable Abdomen: soft Extremities: no C/C/E, edema Decubiti: location Critical Care - Subjective ROS Limited/Unobtainable: No Condition: critical EKG Rhythm: Sinus Rhythm FI02: 35 Vent Support Breath Rate: 16 Vent Support Mode: AC Vent Tidal Volume: 500 Sputum Amount: Moderate PEEP: 5.0 PIP: 25 Tube Feeding Amount: 60 I&O: Intake and Output 12/31/18 01/01/19 19:00 07:00 Intake Total 120 ml Output Total 425 ml 650 ml Balance -305 ml -650 ml Free Water 60 ml Tube Feeding 60 ml Output Urine Total 425 ml 650 ml CXR: edema vs infiltrate unchanged. ET-Tube: 7.0 ET Position: 24 Labs: Laboratory Tests Test 01/01/19 04:08 01/01/19 09:12 White Blood Count 10.6 K/UL (4.8-10.8) Red Blood Count 3.03 M/UL (4.20-5.40) L Hemoglobin 9.0 G/DL (12.0-16.0) L Hematocrit 27.7 % (37.0-47.0) L Mean Corpuscular Volume 92 FL (80-99) Mean Corpuscular Hemoglobin 29.7 PG (27.0-31.0) Mean Corpuscular Hemoglobin Concent 32.4 G/DL (32.0-36.0) Red Cell Distribution Width 13.2 % (11.6-14.8) Platelet Count 293 K/UL (150-450) Mean Platelet Volume 6.2 FL (6.5-10.1) L Neutrophils (%) (Auto) 64.2 % (45.0-75.0) Lymphocytes (%) (Auto) 23.8 % (20.0-45.0) Monocytes (%) (Auto) 4.4 % (1.0-10.0) Eosinophils (%) (Auto) 7.0 % (0.0-3.0) H Basophils (%) (Auto) 0.7 % (0.0-2.0) Sodium Level 150 MMOL/L (136-145) H Potassium Level 3.7 MMOL/L (3.5-5.1) Chloride Level 111 MMOL/L (98-107) H Carbon Dioxide Level 30 MMOL/L (21-32) Anion Gap 9 mmol/L (5-15) Blood Urea Nitrogen 16 mg/dL (7-18) Creatinine 1.0 MG/DL (0.55-1.30) Estimat Glomerular Filtration Rate mL/min (>60) Glucose Level 83 MG/DL (74-106) Calcium Level 9.4 MG/DL (8.5-10.1) Phosphorus Level 2.9 MG/DL (2.5-4.9) Magnesium Level 2.0 MG/DL (1.8-2.4) Total Bilirubin 0.3 MG/DL (0.2-1.0) Aspartate Amino Transf (AST/SGOT) 21 U/L (15-37) Alanine Aminotransferase (ALT/SGPT) 21 U/L (12-78) Alkaline Phosphatase 73 U/L (46-116) Total Protein 8.1 G/DL (6.4-8.2) Albumin 2.7 G/DL (3.4-5.0) L Globulin 5.4 g/dL Albumin/Globulin Ratio 0.5 (1.0-2.7) L Arterial Blood pH 7.413 (7.350-7.450) Arterial Blood Partial Pressure CO2 46.3 mmHg (35.0-45.0) H Arterial Blood Partial Pressure O2 121.3 mmHg (75.0-100.0) H Arterial Blood HCO3 28.9 mmol/L (22.0-26.0) H Arterial Blood Oxygen Saturation 97.9 % (95-100) Arterial Blood Base Excess 3.8 (-2-2) H Luís Test Positive Sue Yu MD January 01, 2019 11:24
--- NOTE | 2019-01-01 11:28 | Surgery Progress Note ---
Surgery Progress Note Subjective Procedure Performed tracheostomy bronchoscopy Additional Comments no acute events. downgraded from ICU. looking better. cxr stable. airway stable Objective Last 24 Hour Vital Signs Date Time Temp Pulse Resp B/P (MAP) Pulse Ox O2 Delivery O2 Flow Rate FiO2 01/01/19 09:25 65 18 35 01/01/19 08:11 35 01/01/19 08:00 Mechanical Ventilator 01/01/19 08:00 53 01/01/19 08:00 98.9 57 18 110/56 (74) 99 01/01/19 07:00 61 17 35 01/01/19 05:00 55 17 35 01/01/19 04:00 Mechanical Ventilator 01/01/19 04:00 98.2 58 16 135/55 (81) 100 01/01/19 04:00 45 01/01/19 04:00 35 01/01/19 03:22 50 16 35 01/01/19 00:51 62 17 35 01/01/19 00:00 98.4 51 16 145/66 (92) 99 01/01/19 00:00 Mechanical Ventilator 01/01/19 00:00 35 01/01/19 00:00 50 12/31/18 23:08 64 16 35 12/31/18 21:15 68 17 35 12/31/18 20:00 48 12/31/18 20:00 35 12/31/18 20:00 98.2 58 16 120/70 (87) 97 12/31/18 20:00 Mechanical Ventilator 12/31/18 18:58 65 16 35 12/31/18 17:25 65 18 35 12/31/18 16:00 35 12/31/18 16:00 Mechanical Ventilator 12/31/18 16:00 49 12/31/18 16:00 97.9 46 16 122/46 (71) 99 12/31/18 15:22 61 16 35 12/31/18 13:33 60 12/31/18 13:05 59 20 35 12/31/18 12:00 57 12/31/18 12:00 Mechanical Ventilator 12/31/18 12:00 35 12/31/18 12:00 98.4 58 118/48 (71) 100 I&O Intake and Output 12/31/18 01/01/19 19:00 07:00 Intake Total 120 ml Output Total 425 ml 650 ml Balance -305 ml -650 ml Free Water 60 ml Tube Feeding 60 ml Output Urine Total 425 ml 650 ml Wound: clean Drains: other Cardiovascular: RSR Respiratory: clear Abdomen: soft, present bowel sounds, non-distended Extremities: no cyanosis Laboratory Tests Test 01/01/19 04:08 01/01/19 09:12 White Blood Count 10.6 K/UL (4.8-10.8) Red Blood Count 3.03 M/UL (4.20-5.40) L Hemoglobin 9.0 G/DL (12.0-16.0) L Hematocrit 27.7 % (37.0-47.0) L Mean Corpuscular Volume 92 FL (80-99) Mean Corpuscular Hemoglobin 29.7 PG (27.0-31.0) Mean Corpuscular Hemoglobin Concent 32.4 G/DL (32.0-36.0) Red Cell Distribution Width 13.2 % (11.6-14.8) Platelet Count 293 K/UL (150-450) Mean Platelet Volume 6.2 FL (6.5-10.1) L Neutrophils (%) (Auto) 64.2 % (45.0-75.0) Lymphocytes (%) (Auto) 23.8 % (20.0-45.0) Monocytes (%) (Auto) 4.4 % (1.0-10.0) Eosinophils (%) (Auto) 7.0 % (0.0-3.0) H Basophils (%) (Auto) 0.7 % (0.0-2.0) Sodium Level 150 MMOL/L (136-145) H Potassium Level 3.7 MMOL/L (3.5-5.1) Chloride Level 111 MMOL/L (98-107) H Carbon Dioxide Level 30 MMOL/L (21-32) Anion Gap 9 mmol/L (5-15) Blood Urea Nitrogen 16 mg/dL (7-18) Creatinine 1.0 MG/DL (0.55-1.30) Estimat Glomerular Filtration Rate mL/min (>60) Glucose Level 83 MG/DL (74-106) Calcium Level 9.4 MG/DL (8.5-10.1) Phosphorus Level 2.9 MG/DL (2.5-4.9) Magnesium Level 2.0 MG/DL (1.8-2.4) Total Bilirubin 0.3 MG/DL (0.2-1.0) Aspartate Amino Transf (AST/SGOT) 21 U/L (15-37) Alanine Aminotransferase (ALT/SGPT) 21 U/L (12-78) Alkaline Phosphatase 73 U/L (46-116) Total Protein 8.1 G/DL (6.4-8.2) Albumin 2.7 G/DL (3.4-5.0) L Globulin 5.4 g/dL Albumin/Globulin Ratio 0.5 (1.0-2.7) L Arterial Blood pH 7.413 (7.350-7.450) Arterial Blood Partial Pressure CO2 46.3 mmHg (35.0-45.0) H Arterial Blood Partial Pressure O2 121.3 mmHg (75.0-100.0) H Arterial Blood HCO3 28.9 mmol/L (22.0-26.0) H Arterial Blood Oxygen Saturation 97.9 % (95-100) Arterial Blood Base Excess 3.8 (-2-2) H Luís Test Positive Plan Problems: (1) Pneumomediastinum (2) Hypoxia (3) Pneumonia (4) Pneumothorax Assessment & Plan: bilateral chest tubes placed prior small air leak noted - resolved on suction CXR with resolved ptx. lots of subcutaneous air. - improving Chest tubes removed at bedside AM CXR (5) Hypernatremia (6) Hypotension (7) Anemia (8) Seizure disorder (9) Septic shock Assessment & Plan: in [facility] trach CXR noted labs noted cont IV ABx cont vent chest tubes -removed critically ill prognosis guarded (10) HTN (hypertension) (11) Cardiomyopathy (12) Sepsis (13) Acute and chronic respiratory failure (14) Tracheostomy care Assessment & Plan: s/p trach (15) Bowel obstruction (16) Feeding by G-tube Assessment & Plan: DAILY ESTIMATED NEEDS: Needs based on Critical Care, wound 63kg 22-28 kcals/kg 4235-3440 total kcals 1.25-2 g protein/kg 78-126 g total protein 25-30 mL/kg 9094-2620 total fluid mLs NUTRITION DIAGNOSIS: * Swallowing difficulty R/T respiratory status, dysphagia as evidenced by pt is trach/vent + PEG dep, s/p respiratory distress, currently orally intubated, NPO. * Increased kcal/prot needs R/T wound healing as evidenced by pt admitted w/ BL malleolus wounds, pending eval. CURRENT TF:NPO ENTERAL NUTRITION RECOMMENDATIONS: Glucerna 1.2 @ 60ml/hr x 22 hrs + Prosource 1pkt daily to provide 1320ml, 1584kcal, 79g + 11g prot, 1065ml free water - Once medically appropriate, initiate TF on Glucerna 1.2 @ 20ml/hr x 6 hrs. - Advance 10ml q 4-6 hrs as tolerated to goal rate - HOB >30 degrees/ water flushes per MD - Add Prosource 1pkt daily to better meet protein needs. - Hold 1 hour before and after Synthroid med. ADDITIONAL RECOMMENDATIONS: 1) Calibrated bedscale wts 2) Monitor lytes, replete as needed 3) Monitor BGs closely, need for hypoglycemic agents (BG 245 upon adm, now improved) 4) F/up w/ wound eval -Rec Tommie 1pkt BID and Vit C 250mg QD for wound healing (17) Malfunction of gastrostomy tube (18) Chronic respiratory failure (19) Chronic vegetative state (20) Nosocomial pneumonia (21) Fecal impaction (22) ATN (acute tubular necrosis) (23) Ileus (24) Acute on chronic renal failure (25) UTI (urinary tract infection) Livan Dean January 01, 2019 11:28
--- NOTE | 2019-01-01 11:42 | Infectious Diseases Prog Note ---
Assessment/Plan Assessment/Plan Assessment: Sepsis- Sp Probable PNA SCx : PSA and H. Influenza 12/28 CXR: Bilateral chest tubes, endotracheal tube remain in good position. There is also tubing over the lower chest noted. 12/24 CXR Stable satisfactory position of endotracheal tube. Bilateral chest tubes remain in place Bacteremia : CoNS ( STAPHYLOCOCCUS AURICULARIS and Epid ) m/l contaminant - 2d ECHO : no Veg Afebrile Leukocytosis, SP Hx of recurrent PNA (VAP/HAP) -10/2017 MDR PSA, H. flu -sp cx MDR ACB 07/2017, s/p Rx PnTx , Bl chest tube , removed 12/29 Acute respiratory failure, failed trach and now intubated 12/21/1812/28 SP tracheostomy 12/28 Sp bronchoscopy 12/28 Sp PEG Hypertension. 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 snf resident Plan: -Continue Cefepime d# / -12/26 Sp IV Vancomycin # 5 -12/25 Sp Amikacin # 3 and Zosyn # 4 -f/u cx -Monitor CBC/CMP, temperatures -trach care -aspiration precautions Subjective Allergies: Coded Allergies: ASPIRIN (Verified Allergy, Unknown, 07/07/17) Subjective afebrile leukocytosis resolved trasnferred out of ICU to [facility] Objective Vital Signs Last 24 Hour Vital Signs Date Time Temp Pulse Resp B/P (MAP) Pulse Ox O2 Delivery O2 Flow Rate FiO2 01/01/19 09:25 65 18 35 01/01/19 08:11 35 01/01/19 08:00 Mechanical Ventilator 01/01/19 08:00 53 01/01/19 08:00 98.9 57 18 110/56 (74) 99 01/01/19 07:00 61 17 35 01/01/19 05:00 55 17 35 01/01/19 04:00 Mechanical Ventilator 01/01/19 04:00 98.2 58 16 135/55 (81) 100 01/01/19 04:00 45 01/01/19 04:00 35 01/01/19 03:22 50 16 35 01/01/19 00:51 62 17 35 01/01/19 00:00 98.4 51 16 145/66 (92) 99 01/01/19 00:00 Mechanical Ventilator 01/01/19 00:00 35 01/01/19 00:00 50 12/31/18 23:08 64 16 35 12/31/18 21:15 68 17 35 12/31/18 20:00 48 12/31/18 20:00 35 12/31/18 20:00 98.2 58 16 120/70 (87) 97 12/31/18 20:00 Mechanical Ventilator 12/31/18 18:58 65 16 35 12/31/18 17:25 65 18 35 12/31/18 16:00 35 12/31/18 16:00 Mechanical Ventilator 12/31/18 16:00 49 12/31/18 16:00 97.9 46 16 122/46 (71) 99 12/31/18 15:22 61 16 35 12/31/18 13:33 60 12/31/18 13:05 59 20 35 12/31/18 12:00 57 12/31/18 12:00 Mechanical Ventilator 12/31/18 12:00 35 12/31/18 12:00 98.4 58 118/48 (71) 100 Height (Feet): 5 Height (Inches): 5.00 Weight (Pounds): 140 Objective General Appearance: no apparent distress EENT: normal ENT inspection Neck: supple Cardiovascular: normal rate Respiratory/Chest: decreased breath sounds Abdomen: normal bowel sounds, non tender, soft Extremities: non-tender Laboratory Tests Test 01/01/19 04:08 01/01/19 09:12 White Blood Count 10.6 K/UL (4.8-10.8) Red Blood Count 3.03 M/UL (4.20-5.40) L Hemoglobin 9.0 G/DL (12.0-16.0) L Hematocrit 27.7 % (37.0-47.0) L Mean Corpuscular Volume 92 FL (80-99) Mean Corpuscular Hemoglobin 29.7 PG (27.0-31.0) Mean Corpuscular Hemoglobin Concent 32.4 G/DL (32.0-36.0) Red Cell Distribution Width 13.2 % (11.6-14.8) Platelet Count 293 K/UL (150-450) Mean Platelet Volume 6.2 FL (6.5-10.1) L Neutrophils (%) (Auto) 64.2 % (45.0-75.0) Lymphocytes (%) (Auto) 23.8 % (20.0-45.0) Monocytes (%) (Auto) 4.4 % (1.0-10.0) Eosinophils (%) (Auto) 7.0 % (0.0-3.0) H Basophils (%) (Auto) 0.7 % (0.0-2.0) Sodium Level 150 MMOL/L (136-145) H Potassium Level 3.7 MMOL/L (3.5-5.1) Chloride Level 111 MMOL/L (98-107) H Carbon Dioxide Level 30 MMOL/L (21-32) Anion Gap 9 mmol/L (5-15) Blood Urea Nitrogen 16 mg/dL (7-18) Creatinine 1.0 MG/DL (0.55-1.30) Estimat Glomerular Filtration Rate mL/min (>60) Glucose Level 83 MG/DL (74-106) Calcium Level 9.4 MG/DL (8.5-10.1) Phosphorus Level 2.9 MG/DL (2.5-4.9) Magnesium Level 2.0 MG/DL (1.8-2.4) Total Bilirubin 0.3 MG/DL (0.2-1.0) Aspartate Amino Transf (AST/SGOT) 21 U/L (15-37) Alanine Aminotransferase (ALT/SGPT) 21 U/L (12-78) Alkaline Phosphatase 73 U/L (46-116) Total Protein 8.1 G/DL (6.4-8.2) Albumin 2.7 G/DL (3.4-5.0) L Globulin 5.4 g/dL Albumin/Globulin Ratio 0.5 (1.0-2.7) L Arterial Blood pH 7.413 (7.350-7.450) Arterial Blood Partial Pressure CO2 46.3 mmHg (35.0-45.0) H Arterial Blood Partial Pressure O2 121.3 mmHg (75.0-100.0) H Arterial Blood HCO3 28.9 mmol/L (22.0-26.0) H Arterial Blood Oxygen Saturation 97.9 % (95-100) Arterial Blood Base Excess 3.8 (-2-2) H Luís Test Positive Current Medications Medications (Trade) Dose Ordered Sig/Torsten Route PRN Reason Start Time Stop Time Status Last Admin Dose Admin Acetaminophen (Tylenol) 650 mg Q4H PRN GT Mild Pain/Temp > 100.5 12/31/18 15:34 01/22/19 15:33 Albuterol/ Ipratropium (Albuterol/ Ipratropium) 3 ml Q4H PRN HHN Shortness of Breath 12/31/18 15:34 01/05/19 15:33 Ascorbic Acid (Vitamin C) 250 mg DAILY GT 01/01/19 09:00 01/22/19 08:59 01/01/19 09:03 Cefepime HCl 2 gm/ Dextrose 55 ml @ 110 mls/hr Q24H IVPB 01/01/19 04:00 01/03/19 03:59 01/01/19 04:25 Chlorhexidine Gluconate (Mariah-Hex 2%) 1 applic DAILY@2000 TOPIC 12/31/18 20:00 01/24/19 19:59 12/31/18 20:11 Docusate Sodium (Colace) 100 mg TWICE A DAY GT 12/31/18 18:00 01/23/19 08:59 Heparin Sodium (Porcine) (Heparin 5000 units/ml) 5,000 units EVERY 12 HOURS SUBQ 12/31/18 21:00 01/20/19 20:59 01/01/19 08:31 Lactulose (Cephulac) 20 gm THREE TIMES A DAY GT 12/31/18 18:00 01/23/19 08:59 01/01/19 09:03 Lansoprazole (Prevacid) 30 mg BID GT 12/31/18 18:00 01/27/19 17:06 01/01/19 09:03 Midodrine (Pro-Amatine) 5 mg THREE TIMES A DAY GT 12/31/18 18:00 01/27/19 17:59 01/01/19 09:03 Ondansetron HCl (Zofran) 4 mg Q6H PRN IVP Nausea & Vomiting 12/31/18 15:35 01/20/19 15:34 Polyethylene Glycol (Miralax) 17 gm DAILYPRN PRN GT Constipation 12/31/18 15:35 01/30/19 15:34 Yane Umana M.D. January 01, 2019 11:42
--- NOTE | 2019-01-01 11:46 | Diagnostic Imaging Report ---
Indication: Dyspnea Comparison: 12/31/2018 A single view chest radiograph was obtained. Findings: Patchy interstitial opacities are noted bilaterally, slightly worse. The heart is enlarged. Pulmonary vascularity also appears slightly prominent. There is a tracheostomy and PICC line again noted appearing stable. IMPRESSION: Findings suggestive of worsening CHF. Correlate clinically
[2019-01-01 12:00] VITALS: BP 152/82
--- NOTE | 2019-01-01 12:15 | Nephrology Progress Note ---
Assessment/Plan Problem List: (1) Acute on chronic renal failure (2) Acute and chronic respiratory failure (3) Pneumothorax (4) Cardiomyopathy Assessment acute on chronic Renal failure Acute on chronic respiratory failure Pneumothorax Anemia UTI HypoAlbuminemia HTN PEG Sz Disorder Cardiomyopathy Full code status ! . Plan Midodrine GT DC amiodarone for bradycardia D5W as needed K Phos as needed stop synthroid- very low TSH- recheck TSH Monitor renal parameters Anemia bryant antibiotics avoid nephrotoxics optimize cardiac and pulm status per orders Subjective ROS Limited/Unobtainable: Yes Objective Objective Last 24 Hour Vital Signs Date Time Temp Pulse Resp B/P (MAP) Pulse Ox O2 Delivery O2 Flow Rate FiO2 01/01/19 12:00 98.4 62 20 152/82 (105) 99 01/01/19 12:00 Mechanical Ventilator 01/01/19 12:00 35 01/01/19 10:42 69 16 35 01/01/19 09:25 65 18 35 01/01/19 08:11 35 01/01/19 08:00 Mechanical Ventilator 01/01/19 08:00 53 01/01/19 08:00 98.9 57 18 110/56 (74) 99 01/01/19 07:00 61 17 35 01/01/19 05:00 55 17 35 01/01/19 04:00 Mechanical Ventilator 01/01/19 04:00 98.2 58 16 135/55 (81) 100 01/01/19 04:00 45 01/01/19 04:00 35 01/01/19 03:22 50 16 35 01/01/19 00:51 62 17 35 01/01/19 00:00 98.4 51 16 145/66 (92) 99 01/01/19 00:00 Mechanical Ventilator 01/01/19 00:00 35 01/01/19 00:00 50 12/31/18 23:08 64 16 35 12/31/18 21:15 68 17 35 12/31/18 20:00 48 12/31/18 20:00 35 12/31/18 20:00 98.2 58 16 120/70 (87) 97 12/31/18 20:00 Mechanical Ventilator 12/31/18 18:58 65 16 35 12/31/18 17:25 65 18 35 12/31/18 16:00 35 12/31/18 16:00 Mechanical Ventilator 12/31/18 16:00 49 12/31/18 16:00 97.9 46 16 122/46 (71) 99 12/31/18 15:22 61 16 35 12/31/18 13:33 60 12/31/18 13:05 59 20 35 Intake and Output 12/31/18 01/01/19 19:00 07:00 Intake Total 120 ml Output Total 425 ml 650 ml Balance -305 ml -650 ml Free Water 60 ml Tube Feeding 60 ml Output Urine Total 425 ml 650 ml Laboratory Tests 01/01/19 04:08: White Blood Count 10.6, Red Blood Count 3.03L, Hemoglobin 9.0L, Hematocrit 27.7L , Mean Corpuscular Volume 92, Mean Corpuscular Hemoglobin 29.7, Mean Corpuscular Hemoglobin Concent 32.4, Red Cell Distribution Width 13.2, Platelet Count 293, Mean Platelet Volume 6.2L, Neutrophils (%) (Auto) 64.2, Lymphocytes ( %) (Auto) 23.8, Monocytes (%) (Auto) 4.4, Eosinophils (%) (Auto) 7.0H, Basophils (%) (Auto) 0.7, Sodium Level 150H, Potassium Level 3.7, Chloride Level 111H, Carbon Dioxide Level 30, Anion Gap 9, Blood Urea Nitrogen 16, Creatinine 1.0, Estimat Glomerular Filtration Rate , Glucose Level 83, Calcium Level 9.4, Phosphorus Level 2.9, Magnesium Level 2.0, Total Bilirubin 0.3, Aspartate Amino Transf (AST/SGOT) 21, Alanine Aminotransferase (ALT/SGPT) 21, Alkaline Phosphatase 73, Total Protein 8.1, Albumin 2.7L, Globulin 5.4, Albumin/ Globulin Ratio 0.5L 01/01/19 09:12: Arterial Blood pH 7.413, Arterial Blood Partial Pressure CO2 46.3H, Arterial Blood Partial Pressure O2 121.3H, Arterial Blood HCO3 28.9H, Arterial Blood Oxygen Saturation 97.9, Arterial Blood Base Excess 3.8H, Luís Test Positive Height (Feet): 5 Height (Inches): 5.00 Weight (Pounds): 140 EENT: other - vented Cardiovascular: normal rate Respiratory/Chest: decreased breath sounds Abdomen: distended Objective no change Tono Case MD January 01, 2019 12:15
--- NOTE | 2019-01-01 13:07 | General Progress Note ---
Assessment/Plan Status: unchanged Assessment/Plan: Assessment and Recs: # Anemia of chronic disease due to underlying chronic medical issues, multifactorial --> Anemia workup has been ordered, rule out gi bleed --> ferritin is 610 --> No evidence of hemolysis is noted, peripheral smear has been reviewed. --> Hgb goal >7. Transfuse prn. 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 Remainder of the deep venous system within normal limits. --> on heparin sq given no acute clot --> if hgb stable continue it # Acute on chronic Renal failure --> per renal --> cr has improved # Acute on chronic respiratory failure s/p trach with revision, s/p trach 12/28 --> Pneumothorax s/p chest tube --> trach done 12/28 --> remains on vent # UTI --> on abx --> per id # HypoAlbuminemia # HTN # PEG with Fecal impaction # Malfunction of gastrostomy tube The timing of this note does not necessarily reflect the time of the patient was seen. Greatly appreciate consultation! Subjective Constitutional: Denies: no symptoms, chills, diaphoresis, fever, malaise, weakness, other HEENT: Denies: no symptoms, eye pain, blurred vision, tearing, double vision, ear pain, ear discharge, nose pain, nose congestion, throat pain, throat swelling, mouth pain, mouth swelling, other Cardiovascular: Denies: no symptoms, chest pain, edema, irregular heart rate, lightheadedness, palpitations, syncope, other Gastrointestinal/Abdominal: Denies: no symptoms, abdomen distended, abdominal pain, black stools, tarry stools, blood in stool, constipated, diarrhea, difficulty swallowing, nausea, poor appetite, poor fluid intake, rectal bleeding , vomiting, other Genitourinary: Denies: no symptoms, burning, discharge, frequency, flank pain, hematuria, incontinence, pain, urgency, other Endocrine: Denies: no symptoms, excessive sweating, flushing, intolerance to cold, intolerance to heat, increased hunger, increased thirst, increased urine, unexplained weight gain, unexplained weight loss, other Allergies: Coded Allergies: ASPIRIN (Verified Allergy, Unknown, 07/07/17) Subjective 12/26: no events, remains sedated, in the icu, on vent 12/27: no events noted, no f/c, considering ltach placement 12/28: trach completed today with bronch, no f/c 12/30: no events, remains in the icu, tolerating well off ct 12/31: current gtube clamped, no f/c, out of the icu 01/01: no events, no f/c noted, no bleeding, looking better Objective Last 24 Hour Vital Signs Date Time Temp Pulse Resp B/P (MAP) Pulse Ox O2 Delivery O2 Flow Rate FiO2 01/01/19 12:00 52 01/01/19 12:00 98.4 62 20 152/82 (105) 99 01/01/19 12:00 Mechanical Ventilator 01/01/19 12:00 35 01/01/19 10:42 69 16 35 01/01/19 09:25 65 18 35 01/01/19 08:11 35 01/01/19 08:00 Mechanical Ventilator 01/01/19 08:00 53 01/01/19 08:00 98.9 57 18 110/56 (74) 99 01/01/19 07:00 61 17 35 01/01/19 05:00 55 17 35 01/01/19 04:00 Mechanical Ventilator 01/01/19 04:00 98.2 58 16 135/55 (81) 100 01/01/19 04:00 45 01/01/19 04:00 35 01/01/19 03:22 50 16 35 01/01/19 00:51 62 17 35 01/01/19 00:00 98.4 51 16 145/66 (92) 99 01/01/19 00:00 Mechanical Ventilator 01/01/19 00:00 35 01/01/19 00:00 50 12/31/18 23:08 64 16 35 12/31/18 21:15 68 17 35 12/31/18 20:00 48 12/31/18 20:00 35 12/31/18 20:00 98.2 58 16 120/70 (87) 97 12/31/18 20:00 Mechanical Ventilator 12/31/18 18:58 65 16 35 12/31/18 17:25 65 18 35 12/31/18 16:00 35 12/31/18 16:00 Mechanical Ventilator 12/31/18 16:00 49 12/31/18 16:00 97.9 46 16 122/46 (71) 99 12/31/18 15:22 61 16 35 12/31/18 13:33 60 Intake and Output 12/31/18 01/01/19 19:00 07:00 Intake Total 120 ml Output Total 425 ml 650 ml Balance -305 ml -650 ml Free Water 60 ml Tube Feeding 60 ml Output Urine Total 425 ml 650 ml Laboratory Tests 01/01/19 04:08: White Blood Count 10.6, Red Blood Count 3.03L, Hemoglobin 9.0L, Hematocrit 27.7L , Mean Corpuscular Volume 92, Mean Corpuscular Hemoglobin 29.7, Mean Corpuscular Hemoglobin Concent 32.4, Red Cell Distribution Width 13.2, Platelet Count 293, Mean Platelet Volume 6.2L, Neutrophils (%) (Auto) 64.2, Lymphocytes ( %) (Auto) 23.8, Monocytes (%) (Auto) 4.4, Eosinophils (%) (Auto) 7.0H, Basophils (%) (Auto) 0.7, Sodium Level 150H, Potassium Level 3.7, Chloride Level 111H, Carbon Dioxide Level 30, Anion Gap 9, Blood Urea Nitrogen 16, Creatinine 1.0, Estimat Glomerular Filtration Rate , Glucose Level 83, Calcium Level 9.4, Phosphorus Level 2.9, Magnesium Level 2.0, Total Bilirubin 0.3, Aspartate Amino Transf (AST/SGOT) 21, Alanine Aminotransferase (ALT/SGPT) 21, Alkaline Phosphatase 73, Total Protein 8.1, Albumin 2.7L, Globulin 5.4, Albumin/ Globulin Ratio 0.5L, Free Thyroxine 1.62H, Free Triiodothyronine 2.1L 01/01/19 09:12: Arterial Blood pH 7.413, Arterial Blood Partial Pressure CO2 46.3H, Arterial Blood Partial Pressure O2 121.3H, Arterial Blood HCO3 28.9H, Arterial Blood Oxygen Saturation 97.9, Arterial Blood Base Excess 3.8H, Luís Test Positive 01/01/19 12:28: Triiodothyonine (T3) [Pending] Height (Feet): 5 Height (Inches): 5.00 Weight (Pounds): 140 Objective p02 EP Interpretation: reviewed, normal General Appearance: severe distress, lethargic, obese, Stupor Head: atraumatic Eyes: bilateral eye normal inspection ENT: moist mucus membranes Neck: supple Respiratory: respiratory distress, ++ trach ++ intubated Cardiovascular: tachycardia Gastrointestinal: distended - G-tube in place Genitourinary: no CVA tenderness Musculoskeletal: other - Contractures lower extremity Neurologic: other - Unable to assess due to patient poor mental status Psychiatric: other - Unable to assess patient unconscious Micha Torres MD January 01, 2019 13:07
--- NOTE | 2019-01-01 15:01 | General Progress Note ---
Assessment/Plan Problem List: (1) Acute and chronic respiratory failure ICD Codes: J96.20 - Acute and chronic respiratory failure, unspecified whether with hypoxia or hypercapnia SNOMED: 25358399 (2) Sepsis ICD Codes: A41.9 - Sepsis, unspecified organism SNOMED: 16465652 (3) HTN (hypertension) ICD Codes: I10 - Essential (primary) hypertension SNOMED: 19924746 (4) Seizure disorder ICD Codes: G40.909 - Epilepsy, unspecified, not intractable, without status epilepticus SNOMED: 471927223 (5) ATN (acute tubular necrosis) ICD Codes: N17.0 - Acute kidney failure with tubular necrosis SNOMED: 16090591 Status: unchanged Assessment/Plan: vent abx neph f/u cbc bmp am ltach transfer Subjective Constitutional: Reports: weakness Allergies: Coded Allergies: ASPIRIN (Verified Allergy, Unknown, 07/07/17) All Systems: reviewed and negative except above Subjective trach vent altered Objective Last 24 Hour Vital Signs Date Time Temp Pulse Resp B/P (MAP) Pulse Ox O2 Delivery O2 Flow Rate FiO2 01/01/19 14:01 61 16 35 01/01/19 12:00 52 01/01/19 12:00 98.4 62 20 152/82 (105) 99 01/01/19 12:00 Mechanical Ventilator 01/01/19 12:00 35 01/01/19 10:42 69 16 35 01/01/19 09:25 65 18 35 01/01/19 08:11 35 01/01/19 08:00 Mechanical Ventilator 01/01/19 08:00 53 01/01/19 08:00 98.9 57 18 110/56 (74) 99 01/01/19 07:00 61 17 35 01/01/19 05:00 55 17 35 01/01/19 04:00 Mechanical Ventilator 01/01/19 04:00 98.2 58 16 135/55 (81) 100 01/01/19 04:00 45 01/01/19 04:00 35 01/01/19 03:22 50 16 35 01/01/19 00:51 62 17 35 01/01/19 00:00 98.4 51 16 145/66 (92) 99 01/01/19 00:00 Mechanical Ventilator 01/01/19 00:00 35 5/7/19 00:00 50 12/31/18 23:08 64 16 35 12/31/18 21:15 68 17 35 12/31/18 20:00 48 12/31/18 20:00 35 12/31/18 20:00 98.2 58 16 120/70 (87) 97 12/31/18 20:00 Mechanical Ventilator 12/31/18 18:58 65 16 35 12/31/18 17:25 65 18 35 12/31/18 16:00 35 12/31/18 16:00 Mechanical Ventilator 12/31/18 16:00 49 12/31/18 16:00 97.9 46 16 122/46 (71) 99 12/31/18 15:22 61 16 35 Intake and Output 12/31/18 01/01/19 19:00 07:00 Intake Total 120 ml Output Total 425 ml 650 ml Balance -305 ml -650 ml Free Water 60 ml Tube Feeding 60 ml Output Urine Total 425 ml 650 ml Laboratory Tests 01/01/19 04:08: White Blood Count 10.6, Red Blood Count 3.03L, Hemoglobin 9.0L, Hematocrit 27.7L , Mean Corpuscular Volume 92, Mean Corpuscular Hemoglobin 29.7, Mean Corpuscular Hemoglobin Concent 32.4, Red Cell Distribution Width 13.2, Platelet Count 293, Mean Platelet Volume 6.2L, Neutrophils (%) (Auto) 64.2, Lymphocytes ( %) (Auto) 23.8, Monocytes (%) (Auto) 4.4, Eosinophils (%) (Auto) 7.0H, Basophils (%) (Auto) 0.7, Sodium Level 150H, Potassium Level 3.7, Chloride Level 111H, Carbon Dioxide Level 30, Anion Gap 9, Blood Urea Nitrogen 16, Creatinine 1.0, Estimat Glomerular Filtration Rate , Glucose Level 83, Calcium Level 9.4, Phosphorus Level 2.9, Magnesium Level 2.0, Total Bilirubin 0.3, Aspartate Amino Transf (AST/SGOT) 21, Alanine Aminotransferase (ALT/SGPT) 21, Alkaline Phosphatase 73, Total Protein 8.1, Albumin 2.7L, Globulin 5.4, Albumin/ Globulin Ratio 0.5L, Free Thyroxine 1.62H, Free Triiodothyronine 2.1L 01/01/19 09:12: Arterial Blood pH 7.413, Arterial Blood Partial Pressure CO2 46.3H, Arterial Blood Partial Pressure O2 121.3H, Arterial Blood HCO3 28.9H, Arterial Blood Oxygen Saturation 97.9, Arterial Blood Base Excess 3.8H, Luís Test Positive 01/01/19 12:28: Triiodothyonine (T3) [Pending] Height (Feet): 5 Height (Inches): 5.00 Weight (Pounds): 140 General Appearance: lethargic EENT: normal ENT inspection Neck: normal alignment Cardiovascular: normal peripheral pulses, normal rate, regular rhythm Respiratory/Chest: chest wall non-tender, lungs clear, normal breath sounds Abdomen: normal bowel sounds, non tender, soft Extremities: normal inspection Edema: no edema noted Arm (L), no edema noted Arm (R), no edema noted Leg (L), no edema noted Leg (R), no edema noted Pedal (L), no edema noted Pedal (R), no edema noted Generalized Neurologic: motor weakness Skin: normal pigmentation, warm/dry Rl White DO January 01, 2019 15:01
[2019-01-01 16:00] VITALS: BP 145/76
--- NOTE | 2019-01-01 19:02 | NUR ---
NURSE NOTES: Received patient from RONDA Galvez and RONDA Daniels. Will continue plan of care.
--- NOTE | 2019-01-01 19:02 | NUR ---
HAND-OFF: Report given to RONDA Masterson. Patient in stable condition.
[2019-01-01 20:00] VITALS: BP 142/66
[2019-01-01] MEDS: Dyna-Hex 2% Top Sol 2oz TOPIC SCH (20:21)
[2019-01-02] VITALS: BP 157/70
[2019-01-02] MEDS: Cefepime HCl 2 GM in D5W 55 ML IVPB SCH (03:44)
[2019-01-02 04:00] VITALS: BP 133/91
[2019-01-02 04:48] LABS: BASOPHILS % (AUTO) 0.6 % (0.0-2.0); EOSINOPHILS % (AUTO) 5.7 % (0.0-3.0); HEMATOCRIT 29.2 % (37.0-47.0); HEMOGLOBIN 9.4 G/DL (12.0-16.0); LYMPHOCYTES % (AUTO) 14.9 % (20.0-45.0); MEAN CORPUSCULAR VOLUME 92 FL (80-99); MONOCYTES % (AUTO) 5.6 % (1.0-10.0); NEUTROPHILS % (AUTO) 73.2 % (45.0-75.0); PLATELET COUNT 335 K/UL (150-450); RED BLOOD COUNT 3.18 M/UL (4.20-5.40); RED CELL DISTRIBUTION WIDTH 13.2 % (11.6-14.8); WHITE BLOOD COUNT 13.3 K/UL (4.8-10.8)
[2019-01-02 05:16] LABS: ALANINE AMINOTRANSFERASE 22 U/L (12-78); ALBUMIN 2.6 G/DL (3.4-5.0); ALBUMIN/GLOBULIN RATIO 0.5 (1.0-2.7); ALKALINE PHOSPHATASE 89 U/L (46-116); ANION GAP 7 mmol/L (5-15); ASPARTATE AMINO TRANSFERASE 17 U/L (15-37); BILIRUBIN,TOTAL 0.2 MG/DL (0.2-1.0); BLOOD UREA NITROGEN 22 mg/dL (7-18); CALCIUM 9.2 MG/DL (8.5-10.1); CARBON DIOXIDE 30 MMOL/L (21-32); CHLORIDE 115 MMOL/L (98-107); CREATININE 1.2 MG/DL (0.55-1.30); POTASSIUM 3.8 MMOL/L (3.5-5.1); SODIUM 152 MMOL/L (136-145)
--- NOTE | 2019-01-02 06:30 | NUR ---
NURSE NOTES: Left message with Dr. Slater and Dr. Umana's sewage screen operator regarding patient's WBC this AM resulting in 13.3 which increased from 10.6 as of yesterday. Dimension Mill Worker will page MD and left call back number if new orders or further instructions are needed.
--- NOTE | 2019-01-02 07:08 | NUR ---
HAND-OFF: Report given to RONDA Daniels and RONDA Glavez.
--- NOTE | 2019-01-02 07:21 | NUR ---
NURSE NOTES: Received report from RONDA Masterson. Observed patient in bed, opens eyes spontaneously. On ventilator with previous setting, no distress noted. GT intact and feeding infusing at prescribed rate. Smith catheter and rectal tube intact and draining well. No s/s of pain at this time. Bed in lowest position, side rails up, call light within reach. Will continue to monitor.
[2019-01-02 08:00] VITALS: BP 134/67
[2019-01-02] MEDS: Ascorbic Acid 500mg tab GT SCH (08:31)
[2019-01-02] MEDS: Heparin 5000 units/ml inj SUBQ SCH (08:36)
--- NOTE | 2019-01-02 09:12 | NUR ---
RADIOLOGY DEPT., CHEST X-RAY DONE.-P.DYE
--- NOTE | 2019-01-02 10:40 | Pulmonolgy Critical Care Note ---
Critical Care - Asmt/Plan Problems: (1) Acute and chronic respiratory failure (2) Nosocomial pneumonia (3) Sepsis (4) Pneumothorax (5) Hypernatremia (6) Seizure disorder (7) Chronic vegetative state (8) Feeding by G-tube (9) Cardiomyopathy Respiratory: adjust tidal volume, monitor respiratory rate, adjust FIO2, CXR Cardiac: continue to monitor HR/BP Renal: F/U I&O, check electrolytes, other - watch Na Infectious Disease: check cultures, continue antibiotics, other - wbc still high Gastrointestinal: continue feedings/current rate Endocrine: monitor blood sugar, continue sliding scale insulin Hematologic: transfuse if hgb<8.5 Neurologic: PRN Ativan, PRN Morphine, keep patient comfortable Prophylaxis: Protonix, Heparin Time Spent (Minutes): 40 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 Discussed with: nurses, consultants, 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 - Objective Last 24 Hour Vital Signs Date Time Temp Pulse Resp B/P (MAP) Pulse Ox O2 Delivery O2 Flow Rate FiO2 01/02/19 08:40 64 18 35 01/02/19 08:00 35 01/02/19 08:00 52 01/02/19 08:00 Mechanical Ventilator 01/02/19 08:00 99.2 85 26 134/67 (89) 100 01/02/19 07:25 65 16 35 01/02/19 07:25 65 16 Mechanical Ventilator 15.0 35 01/02/19 05:24 61 16 35 01/02/19 04:00 Mechanical Ventilator 01/02/19 04:00 98.4 60 20 133/91 (105) 99 01/02/19 04:00 35 01/02/19 03:30 60 18 35 01/02/19 03:00 50 01/02/19 01:30 63 17 35 01/02/19 00:48 66 01/02/19 00:00 99.0 76 27 157/70 (99) 97 01/02/19 00:00 Mechanical Ventilator 01/02/19 00:00 35 01/01/19 23:30 61 16 35 01/01/19 21:17 60 16 35 01/01/19 20:00 98.6 57 17 142/66 (91) 98 01/01/19 20:00 35 01/01/19 20:00 Mechanical Ventilator 01/01/19 19:21 62 21 35 01/01/19 19:06 63 5/7/19 16:50 63 21 35 01/01/19 16:00 35 01/01/19 16:00 98.7 69 19 145/76 (99) 99 01/01/19 16:00 Mechanical Ventilator 01/01/19 16:00 51 01/01/19 14:30 68 16 35 01/01/19 14:01 61 16 35 01/01/19 12:00 52 01/01/19 12:00 98.4 62 20 152/82 (105) 99 01/01/19 12:00 Mechanical Ventilator 01/01/19 12:00 35 01/01/19 10:42 69 16 35 Status: awake Condition: critical HEENT: atraumatic Neck: trach Lungs: rales, rhonchi Heart: HR/BP stable Abdomen: soft, non-tender Extremities: no C/C/E Decubiti: location Critical Care - Subjective ROS Limited/Unobtainable: No Condition: critical FI02: 35 Vent Support Breath Rate: 16 Vent Support Mode: AC Vent Tidal Volume: 500 Sputum Amount: Small PEEP: 5.0 PIP: 28 Tube Feeding Amount: 60 I&O: Intake and Output 01/01/19 01/02/19 18:59 06:59 Intake Total 780 ml 1015 ml Output Total 500 ml 1600 ml Balance 280 ml -585 ml Free Water 180 ml 180 ml IV Total 55 ml Tube Feeding 600 ml 780 ml Output Urine Total 450 ml 500 ml Stool Total 50 ml 1100 ml CXR: Trach in place, bilateral infiltrate unchanged ET-Tube: 7.0 ET Position: 24 Labs: Laboratory Tests Test 01/01/19 12:28 01/02/19 04:00 Triiodothyonine (T3) 85 ng/dL (71-180) White Blood Count 13.3 K/UL (4.8-10.8) H Red Blood Count 3.18 M/UL (4.20-5.40) L Hemoglobin 9.4 G/DL (12.0-16.0) L Hematocrit 29.2 % (37.0-47.0) L Mean Corpuscular Volume 92 FL (80-99) Mean Corpuscular Hemoglobin 29.5 PG (27.0-31.0) Mean Corpuscular Hemoglobin Concent 32.2 G/DL (32.0-36.0) Red Cell Distribution Width 13.2 % (11.6-14.8) Platelet Count 335 K/UL (150-450) Mean Platelet Volume 6.6 FL (6.5-10.1) Neutrophils (%) (Auto) 73.2 % (45.0-75.0) Lymphocytes (%) (Auto) 14.9 % (20.0-45.0) L Monocytes (%) (Auto) 5.6 % (1.0-10.0) Eosinophils (%) (Auto) 5.7 % (0.0-3.0) H Basophils (%) (Auto) 0.6 % (0.0-2.0) Sodium Level 152 MMOL/L (136-145) H Potassium Level 3.8 MMOL/L (3.5-5.1) Chloride Level 115 MMOL/L (98-107) H Carbon Dioxide Level 30 MMOL/L (21-32) Anion Gap 7 mmol/L (5-15) Blood Urea Nitrogen 22 mg/dL (7-18) H Creatinine 1.2 MG/DL (0.55-1.30) Estimat Glomerular Filtration Rate mL/min (>60) Glucose Level 114 MG/DL (74-106) H Calcium Level 9.2 MG/DL (8.5-10.1) Total Bilirubin 0.2 MG/DL (0.2-1.0) Aspartate Amino Transf (AST/SGOT) 17 U/L (15-37) Alanine Aminotransferase (ALT/SGPT) 22 U/L (12-78) Alkaline Phosphatase 89 U/L (46-116) Pro-B-Type Natriuretic Peptide 533 pg/mL (0-125) H Total Protein 8.2 G/DL (6.4-8.2) Albumin 2.6 G/DL (3.4-5.0) L Globulin 5.6 g/dL Albumin/Globulin Ratio 0.5 (1.0-2.7) L Sue Yu MD January 02, 2019 10:40
--- NOTE | 2019-01-02 10:50 | Nephrology Progress Note ---
Assessment/Plan Problem List: (1) Acute on chronic renal failure (2) Acute and chronic respiratory failure (3) Pneumothorax (4) Cardiomyopathy Assessment acute on chronic Renal failure Acute on chronic respiratory failure Pneumothorax Anemia UTI HypoAlbuminemia HTN PEG Sz Disorder Cardiomyopathy Full code status ! . Plan Midodrine GT adjust dose with parameters DC amiodarone for bradycardia D5W as needed for High Na K Phos as needed stop synthroid- very low TSH- recheck TSH Monitor renal parameters Anemia bryant antibiotics avoid nephrotoxics optimize cardiac and pulm status per orders Subjective ROS Limited/Unobtainable: Yes Objective Objective Last 24 Hour Vital Signs Date Time Temp Pulse Resp B/P (MAP) Pulse Ox O2 Delivery O2 Flow Rate FiO2 01/02/19 08:40 64 18 35 01/02/19 08:00 35 01/02/19 08:00 52 01/02/19 08:00 Mechanical Ventilator 01/02/19 08:00 99.2 85 26 134/67 (89) 100 01/02/19 07:25 65 16 35 01/02/19 07:25 65 16 Mechanical Ventilator 15.0 35 01/02/19 05:24 61 16 35 01/02/19 04:00 Mechanical Ventilator 01/02/19 04:00 98.4 60 20 133/91 (105) 99 01/02/19 04:00 35 01/02/19 03:30 60 18 35 01/02/19 03:00 50 01/02/19 01:30 63 17 35 01/02/19 00:48 66 01/02/19 00:00 99.0 76 27 157/70 (99) 97 01/02/19 00:00 Mechanical Ventilator 01/02/19 00:00 35 01/01/19 23:30 61 16 35 01/01/19 21:17 60 16 35 01/01/19 20:00 98.6 57 17 142/66 (91) 98 01/01/19 20:00 35 01/01/19 20:00 Mechanical Ventilator 01/01/19 19:21 62 21 35 01/01/19 19:06 63 01/01/19 16:50 63 21 35 01/01/19 16:00 35 01/01/19 16:00 98.7 69 19 145/76 (99) 99 01/01/19 16:00 Mechanical Ventilator 01/01/19 16:00 51 01/01/19 14:30 68 16 35 01/01/19 14:01 61 16 35 01/01/19 12:00 52 01/01/19 12:00 98.4 62 20 152/82 (105) 99 01/01/19 12:00 Mechanical Ventilator 01/01/19 12:00 35 Intake and Output 01/01/19 01/02/19 18:59 06:59 Intake Total 780 ml 1015 ml Output Total 500 ml 1600 ml Balance 280 ml -585 ml Free Water 180 ml 180 ml IV Total 55 ml Tube Feeding 600 ml 780 ml Output Urine Total 450 ml 500 ml Stool Total 50 ml 1100 ml Laboratory Tests 01/01/19 12:28: Triiodothyonine (T3) 85 01/02/19 04:00: White Blood Count 13.3H, Red Blood Count 3.18L, Hemoglobin 9.4L, Hematocrit 29.2L, Mean Corpuscular Volume 92, Mean Corpuscular Hemoglobin 29.5, Mean Corpuscular Hemoglobin Concent 32.2, Red Cell Distribution Width 13.2, Platelet Count 335, Mean Platelet Volume 6.6, Neutrophils (%) (Auto) 73.2, Lymphocytes (% ) (Auto) 14.9L, Monocytes (%) (Auto) 5.6, Eosinophils (%) (Auto) 5.7H, Basophils (%) (Auto) 0.6, Sodium Level 152H, Potassium Level 3.8, Chloride Level 115H, Carbon Dioxide Level 30, Anion Gap 7, Blood Urea Nitrogen 22H, Creatinine 1.2, Estimat Glomerular Filtration Rate , Glucose Level 114H, Calcium Level 9.2, Total Bilirubin 0.2, Aspartate Amino Transf (AST/SGOT) 17, Alanine Aminotransferase (ALT/SGPT) 22, Alkaline Phosphatase 89, Pro-B-Type Natriuretic Peptide 533H, Total Protein 8.2, Albumin 2.6L, Globulin 5.6, Albumin /Globulin Ratio 0.5L Height (Feet): 5 Height (Inches): 5.00 Weight (Pounds): 136 EENT: other - trach-vent Cardiovascular: bradycardia Respiratory/Chest: decreased breath sounds Abdomen: distended Objective no change Tono Case MD January 02, 2019 10:50
--- NOTE | 2019-01-02 11:31 | General Progress Note ---
Assessment/Plan Problem List: (1) Ileus ICD Codes: K56.7 - Ileus, unspecified SNOMED: 048780222 (2) Fecal impaction ICD Codes: K56.41 - Fecal impaction SNOMED: 02446481 (3) Feeding by G-tube ICD Codes: Z93.1 - Gastrostomy status SNOMED: 121480115, 382280348 (4) Anemia ICD Codes: D64.9 - Anemia, unspecified SNOMED: 045062057 (5) HTN (hypertension) ICD Codes: I10 - Essential (primary) hypertension SNOMED: 29908692 Status: unchanged Assessment/Plan: dc colace and lactulose given diarrhea neg stool ob GI procedures on hold for now GTF GT care Subjective ROS Limited/Unobtainable: No Allergies: Coded Allergies: ASPIRIN (Verified Allergy, Unknown, 07/07/17) Objective Last 24 Hour Vital Signs Date Time Temp Pulse Resp B/P (MAP) Pulse Ox O2 Delivery O2 Flow Rate FiO2 01/02/19 08:40 64 18 35 01/02/19 08:00 35 01/02/19 08:00 52 01/02/19 08:00 Mechanical Ventilator 01/02/19 08:00 99.2 85 26 134/67 (89) 100 01/02/19 07:25 65 16 35 01/02/19 07:25 65 16 Mechanical Ventilator 15.0 35 01/02/19 05:24 61 16 35 01/02/19 04:00 Mechanical Ventilator 01/02/19 04:00 98.4 60 20 133/91 (105) 99 01/02/19 04:00 35 01/02/19 03:30 60 18 35 01/02/19 03:00 50 01/02/19 01:30 63 17 35 01/02/19 00:48 66 01/02/19 00:00 99.0 76 27 157/70 (99) 97 01/02/19 00:00 Mechanical Ventilator 01/02/19 00:00 35 01/01/19 23:30 61 16 35 01/01/19 21:17 60 16 35 01/01/19 20:00 98.6 57 17 142/66 (91) 98 01/01/19 20:00 35 01/01/19 20:00 Mechanical Ventilator 01/01/19 19:21 62 21 35 01/01/19 19:06 63 01/01/19 16:50 63 21 35 01/01/19 16:00 35 01/01/19 16:00 98.7 69 19 145/76 (99) 99 01/01/19 16:00 Mechanical Ventilator 01/01/19 16:00 51 01/01/19 14:30 68 16 35 01/01/19 14:01 61 16 35 01/01/19 12:00 52 01/01/19 12:00 98.4 62 20 152/82 (105) 99 01/01/19 12:00 Mechanical Ventilator 01/01/19 12:00 35 Intake and Output 01/01/19 01/02/19 18:59 06:59 Intake Total 780 ml 1015 ml Output Total 500 ml 1600 ml Balance 280 ml -585 ml Free Water 180 ml 180 ml IV Total 55 ml Tube Feeding 600 ml 780 ml Output Urine Total 450 ml 500 ml Stool Total 50 ml 1100 ml Laboratory Tests 01/01/19 12:28: Triiodothyonine (T3) 85 01/02/19 04:00: White Blood Count 13.3H, Red Blood Count 3.18L, Hemoglobin 9.4L, Hematocrit 29.2L, Mean Corpuscular Volume 92, Mean Corpuscular Hemoglobin 29.5, Mean Corpuscular Hemoglobin Concent 32.2, Red Cell Distribution Width 13.2, Platelet Count 335, Mean Platelet Volume 6.6, Neutrophils (%) (Auto) 73.2, Lymphocytes (% ) (Auto) 14.9L, Monocytes (%) (Auto) 5.6, Eosinophils (%) (Auto) 5.7H, Basophils (%) (Auto) 0.6, Sodium Level 152H, Potassium Level 3.8, Chloride Level 115H, Carbon Dioxide Level 30, Anion Gap 7, Blood Urea Nitrogen 22H, Creatinine 1.2, Estimat Glomerular Filtration Rate , Glucose Level 114H, Calcium Level 9.2, Total Bilirubin 0.2, Aspartate Amino Transf (AST/SGOT) 17, Alanine Aminotransferase (ALT/SGPT) 22, Alkaline Phosphatase 89, Pro-B-Type Natriuretic Peptide 533H, Total Protein 8.2, Albumin 2.6L, Globulin 5.6, Albumin /Globulin Ratio 0.5L Height (Feet): 5 Height (Inches): 5.00 Weight (Pounds): 136 General Appearance: no apparent distress EENT: normal ENT inspection Neck: supple Cardiovascular: normal rate Respiratory/Chest: decreased breath sounds Abdomen: normal bowel sounds, non tender, soft Extremities: non-tender Jad Skinner MD January 02, 2019 11:31
[2019-01-02 12:00] VITALS: BP 142/86
--- NOTE | 2019-01-02 12:22 | Diagnostic Imaging Report ---
Indication: Dyspnea Technique: XRAY Chest 1v Comparison: 01/01/2019 Findings: Heart size and mediastinal contours are stable. Tracheostomy tube and left arm PICC line unchanged. Patchy interstitial opacities are again noted bilaterally. This may be related to CHF versus infectious etiologies. Correlate clinically. This is not significantly changed. No significant pleural effusion. No pneumothorax. Osseous structures stable. Impression: No significant interval change in the radiographic appearance compared to one day prior.
--- NOTE | 2019-01-02 13:19 | General Progress Note ---
Assessment/Plan Status: unchanged Assessment/Plan: Assessment and Recs: # Anemia of chronic disease due to underlying chronic medical issues, multifactorial --> Anemia workup has been ordered, rule out gi bleed --> ferritin is 610 --> No evidence of hemolysis is noted, peripheral smear has been reviewed. --> Hgb goal >7. Transfuse prn. 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 Remainder of the deep venous system within normal limits. --> on heparin sq given no acute clot --> if hgb stable continue it # Acute on chronic Renal failure --> per renal --> cr has improved # Acute on chronic respiratory failure s/p trach with revision, s/p trach 12/28 --> Pneumothorax s/p chest tube --> trach done 12/28 --> remains on vent # UTI --> on abx --> per id # HypoAlbuminemia # HTN # PEG with Fecal impaction # Malfunction of gastrostomy tube # Granado The timing of this note does not necessarily reflect the time of the patient was seen. Greatly appreciate consultation! Subjective HEENT: Denies: no symptoms, eye pain, blurred vision, tearing, double vision, ear pain, ear discharge, nose pain, nose congestion, throat pain, throat swelling, mouth pain, mouth swelling, other Cardiovascular: Denies: no symptoms, chest pain, edema, irregular heart rate, lightheadedness, palpitations, syncope, other Respiratory: Denies: no symptoms, cough, orthopnea, shortness of breath, SOB with excertion, SOB at rest, sputum, stridor, wheezing, other Gastrointestinal/Abdominal: Denies: no symptoms, abdomen distended, abdominal pain, black stools, tarry stools, blood in stool, constipated, diarrhea, difficulty swallowing, nausea, poor appetite, poor fluid intake, rectal bleeding , vomiting, other Genitourinary: Denies: no symptoms, burning, discharge, frequency, flank pain, hematuria, incontinence, pain, urgency, other Neurologic/Psychiatric: Denies: no symptoms, anxiety, depressed, emotional problems, headache, numbness, paresthesia, pre-existing deficit, seizure, tingling, tremors, weakness, other Hematologic/Lymphatic: Denies: no symptoms, anemia, easy bleeding, easy bruising, other Allergies: Coded Allergies: ASPIRIN (Verified Allergy, Unknown, 07/07/17) Subjective 12/26: no events, remains sedated, in the icu, on vent 12/27: no events noted, no f/c, considering ltach placement 12/28: trach completed today with bronch, no f/c 12/30: no events, remains in the icu, tolerating well off ct 12/31: current gtube clamped, no f/c, out of the icu 01/01: no events, no f/c noted, no bleeding, looking better 01/02: no events, no fevers or chills, no night swaets, gtube feeds ongoing Objective Last 24 Hour Vital Signs Date Time Temp Pulse Resp B/P (MAP) Pulse Ox O2 Delivery O2 Flow Rate FiO2 01/02/19 12:58 71 20 35 01/02/19 12:00 Mechanical Ventilator 01/02/19 12:00 35 01/02/19 12:00 98.2 97 22 142/86 (104) 100 01/02/19 12:00 52 01/02/19 10:30 69 16 35 01/02/19 08:40 64 18 35 01/02/19 08:00 35 01/02/19 08:00 52 01/02/19 08:00 Mechanical Ventilator 01/02/19 08:00 99.2 85 26 134/67 (89) 100 01/02/19 07:25 65 16 35 01/02/19 07:25 65 16 Mechanical Ventilator 15.0 35 01/02/19 05:24 61 16 35 01/02/19 04:00 Mechanical Ventilator 01/02/19 04:00 98.4 60 20 133/91 (105) 99 01/02/19 04:00 35 01/02/19 03:30 60 18 35 01/02/19 03:00 50 01/02/19 01:30 63 17 35 01/02/19 00:48 66 01/02/19 00:00 99.0 76 27 157/70 (99) 97 01/02/19 00:00 Mechanical Ventilator 01/02/19 00:00 35 01/01/19 23:30 61 16 35 01/01/19 21:17 60 16 35 01/01/19 20:00 98.6 57 17 142/66 (91) 98 01/01/19 20:00 35 01/01/19 20:00 Mechanical Ventilator 01/01/19 19:21 62 21 35 01/01/19 19:06 63 01/01/19 16:50 63 21 35 01/01/19 16:00 35 01/01/19 16:00 98.7 69 19 145/76 (99) 99 01/01/19 16:00 Mechanical Ventilator 01/01/19 16:00 51 01/01/19 14:30 68 16 35 01/01/19 14:01 61 16 35 Intake and Output 01/01/19 01/02/19 19:00 07:00 Intake Total 840 ml 1015 ml Output Total 500 ml 1600 ml Balance 340 ml -585 ml Free Water 180 ml 180 ml IV Total 55 ml Tube Feeding 660 ml 780 ml Output Urine Total 450 ml 500 ml Stool Total 50 ml 1100 ml Laboratory Tests 01/02/19 04:00: White Blood Count 13.3H, Red Blood Count 3.18L, Hemoglobin 9.4L, Hematocrit 29.2L, Mean Corpuscular Volume 92, Mean Corpuscular Hemoglobin 29.5, Mean Corpuscular Hemoglobin Concent 32.2, Red Cell Distribution Width 13.2, Platelet Count 335, Mean Platelet Volume 6.6, Neutrophils (%) (Auto) 73.2, Lymphocytes (% ) (Auto) 14.9L, Monocytes (%) (Auto) 5.6, Eosinophils (%) (Auto) 5.7H, Basophils (%) (Auto) 0.6, Sodium Level 152H, Potassium Level 3.8, Chloride Level 115H, Carbon Dioxide Level 30, Anion Gap 7, Blood Urea Nitrogen 22H, Creatinine 1.2, Estimat Glomerular Filtration Rate , Glucose Level 114H, Calcium Level 9.2, Total Bilirubin 0.2, Aspartate Amino Transf (AST/SGOT) 17, Alanine Aminotransferase (ALT/SGPT) 22, Alkaline Phosphatase 89, Pro-B-Type Natriuretic Peptide 533H, Total Protein 8.2, Albumin 2.6L, Globulin 5.6, Albumin /Globulin Ratio 0.5L Height (Feet): 5 Height (Inches): 5.00 Weight (Pounds): 136 Objective p02 EP Interpretation: reviewed, normal General Appearance: severe distress, lethargic, obese, Stupor Head: atraumatic Eyes: bilateral eye normal inspection ENT: moist mucus membranes Neck: supple Respiratory: respiratory distress, ++ trach ++ intubated Cardiovascular: tachycardia Gastrointestinal: distended - G-tube in place Genitourinary: no CVA tenderness ++ granado Musculoskeletal: other - Contractures lower extremity Micha Torres MD January 02, 2019 13:19
--- NOTE | 2019-01-02 13:40 | General Progress Note ---
Assessment/Plan Problem List: (1) Acute and chronic respiratory failure ICD Codes: J96.20 - Acute and chronic respiratory failure, unspecified whether with hypoxia or hypercapnia SNOMED: 86402075 (2) Sepsis ICD Codes: A41.9 - Sepsis, unspecified organism SNOMED: 60414076 (3) HTN (hypertension) ICD Codes: I10 - Essential (primary) hypertension SNOMED: 89876190 (4) Seizure disorder ICD Codes: G40.909 - Epilepsy, unspecified, not intractable, without status epilepticus SNOMED: 909837704 (5) ATN (acute tubular necrosis) ICD Codes: N17.0 - Acute kidney failure with tubular necrosis SNOMED: 93921375 Status: unchanged Assessment/Plan: vent abx neph f/u cbc bmp am ltach transfer Subjective Constitutional: Reports: weakness Allergies: Coded Allergies: ASPIRIN (Verified Allergy, Unknown, 07/07/17) All Systems: reviewed and negative except above Subjective trach vent altered Objective Last 24 Hour Vital Signs Date Time Temp Pulse Resp B/P (MAP) Pulse Ox O2 Delivery O2 Flow Rate FiO2 01/02/19 12:58 71 20 35 01/02/19 12:00 Mechanical Ventilator 01/02/19 12:00 35 01/02/19 12:00 98.2 97 22 142/86 (104) 100 01/02/19 12:00 52 01/02/19 10:30 69 16 35 01/02/19 08:40 64 18 35 01/02/19 08:00 35 01/02/19 08:00 52 01/02/19 08:00 Mechanical Ventilator 01/02/19 08:00 99.2 85 26 134/67 (89) 100 01/02/19 07:25 65 16 35 01/02/19 07:25 65 16 Mechanical Ventilator 15.0 35 01/02/19 05:24 61 16 35 01/02/19 04:00 Mechanical Ventilator 01/02/19 04:00 98.4 60 20 133/91 (105) 99 01/02/19 04:00 35 01/02/19 03:30 60 18 35 01/02/19 03:00 50 01/02/19 01:30 63 17 35 01/02/19 00:48 66 01/02/19 00:00 99.0 76 27 157/70 (99) 97 01/02/19 00:00 Mechanical Ventilator 01/02/19 00:00 35 01/01/19 23:30 61 16 35 01/01/19 21:17 60 16 35 01/01/19 20:00 98.6 57 17 142/66 (91) 98 01/01/19 20:00 35 01/01/19 20:00 Mechanical Ventilator 01/01/19 19:21 62 21 35 01/01/19 19:06 63 01/01/19 16:50 63 21 35 01/01/19 16:00 35 01/01/19 16:00 98.7 69 19 145/76 (99) 99 01/01/19 16:00 Mechanical Ventilator 01/01/19 16:00 51 01/01/19 14:30 68 16 35 01/01/19 14:01 61 16 35 Intake and Output 01/01/19 01/02/19 19:00 07:00 Intake Total 840 ml 1015 ml Output Total 500 ml 1600 ml Balance 340 ml -585 ml Free Water 180 ml 180 ml IV Total 55 ml Tube Feeding 660 ml 780 ml Output Urine Total 450 ml 500 ml Stool Total 50 ml 1100 ml Laboratory Tests 01/02/19 04:00: White Blood Count 13.3H, Red Blood Count 3.18L, Hemoglobin 9.4L, Hematocrit 29.2L, Mean Corpuscular Volume 92, Mean Corpuscular Hemoglobin 29.5, Mean Corpuscular Hemoglobin Concent 32.2, Red Cell Distribution Width 13.2, Platelet Count 335, Mean Platelet Volume 6.6, Neutrophils (%) (Auto) 73.2, Lymphocytes (% ) (Auto) 14.9L, Monocytes (%) (Auto) 5.6, Eosinophils (%) (Auto) 5.7H, Basophils (%) (Auto) 0.6, Sodium Level 152H, Potassium Level 3.8, Chloride Level 115H, Carbon Dioxide Level 30, Anion Gap 7, Blood Urea Nitrogen 22H, Creatinine 1.2, Estimat Glomerular Filtration Rate , Glucose Level 114H, Calcium Level 9.2, Total Bilirubin 0.2, Aspartate Amino Transf (AST/SGOT) 17, Alanine Aminotransferase (ALT/SGPT) 22, Alkaline Phosphatase 89, Pro-B-Type Natriuretic Peptide 533H, Total Protein 8.2, Albumin 2.6L, Globulin 5.6, Albumin /Globulin Ratio 0.5L Height (Feet): 5 Height (Inches): 5.00 Weight (Pounds): 136 General Appearance: lethargic EENT: normal ENT inspection Neck: normal alignment Cardiovascular: normal peripheral pulses, normal rate, regular rhythm Respiratory/Chest: chest wall non-tender, lungs clear, normal breath sounds Abdomen: normal bowel sounds, non tender, soft Extremities: normal inspection Edema: no edema noted Arm (L), no edema noted Arm (R), no edema noted Leg (L), no edema noted Leg (R), no edema noted Pedal (L), no edema noted Pedal (R), no edema noted Generalized Neurologic: motor weakness Skin: normal pigmentation, warm/dry Rl White DO January 02, 2019 13:40
--- NOTE | 2019-01-02 14:30 | NUR ---
LAN SUPPORT SPECIALIST NOTES PATIENT WILL BE GOING TO [facility] ROOM 26A T- ASK FOR NURSING CUTTER GR[employer] TECHNICIAN TO GIVE REPORT [facility] WILL CENTRIFUGE OPERATOR AT 1700
--- NOTE | 2019-01-02 15:33 | Surgery Progress Note ---
Surgery Progress Note Subjective Procedure Performed tracheostomy bronchoscopy Symptoms: improved Objective Last 24 Hour Vital Signs Date Time Temp Pulse Resp B/P (MAP) Pulse Ox O2 Delivery O2 Flow Rate FiO2 01/02/19 12:58 71 20 35 01/02/19 12:00 Mechanical Ventilator 01/02/19 12:00 35 01/02/19 12:00 98.2 97 22 142/86 (104) 100 01/02/19 12:00 52 01/02/19 10:30 69 16 35 01/02/19 08:40 64 18 35 01/02/19 08:00 35 01/02/19 08:00 52 01/02/19 08:00 Mechanical Ventilator 01/02/19 08:00 99.2 85 26 134/67 (89) 100 01/02/19 07:25 65 16 35 01/02/19 07:25 65 16 Mechanical Ventilator 15.0 35 01/02/19 05:24 61 16 35 01/02/19 04:00 Mechanical Ventilator 01/02/19 04:00 98.4 60 20 133/91 (105) 99 01/02/19 04:00 35 01/02/19 03:30 60 18 35 01/02/19 03:00 50 01/02/19 01:30 63 17 35 01/02/19 00:48 66 01/02/19 00:00 99.0 76 27 157/70 (99) 97 01/02/19 00:00 Mechanical Ventilator 01/02/19 00:00 35 01/01/19 23:30 61 16 35 01/01/19 21:17 60 16 35 01/01/19 20:00 98.6 57 17 142/66 (91) 98 01/01/19 20:00 35 01/01/19 20:00 Mechanical Ventilator 01/01/19 19:21 62 21 35 01/01/19 19:06 63 01/01/19 16:50 63 21 35 01/01/19 16:00 35 01/01/19 16:00 98.7 69 19 145/76 (99) 99 01/01/19 16:00 Mechanical Ventilator 01/01/19 16:00 51 I&O Intake and Output 01/01/19 01/02/19 19:00 07:00 Intake Total 840 ml 1015 ml Output Total 500 ml 1600 ml Balance 340 ml -585 ml Free Water 180 ml 180 ml IV Total 55 ml Tube Feeding 660 ml 780 ml Output Urine Total 450 ml 500 ml Stool Total 50 ml 1100 ml Dressing: dry Wound: clean Cardiovascular: RSR Respiratory: clear Abdomen: soft, present bowel sounds Extremities: no cyanosis Laboratory Tests Test 01/02/19 04:00 White Blood Count 13.3 K/UL (4.8-10.8) H Red Blood Count 3.18 M/UL (4.20-5.40) L Hemoglobin 9.4 G/DL (12.0-16.0) L Hematocrit 29.2 % (37.0-47.0) L Mean Corpuscular Volume 92 FL (80-99) Mean Corpuscular Hemoglobin 29.5 PG (27.0-31.0) Mean Corpuscular Hemoglobin Concent 32.2 G/DL (32.0-36.0) Red Cell Distribution Width 13.2 % (11.6-14.8) Platelet Count 335 K/UL (150-450) Mean Platelet Volume 6.6 FL (6.5-10.1) Neutrophils (%) (Auto) 73.2 % (45.0-75.0) Lymphocytes (%) (Auto) 14.9 % (20.0-45.0) L Monocytes (%) (Auto) 5.6 % (1.0-10.0) Eosinophils (%) (Auto) 5.7 % (0.0-3.0) H Basophils (%) (Auto) 0.6 % (0.0-2.0) Sodium Level 152 MMOL/L (136-145) H Potassium Level 3.8 MMOL/L (3.5-5.1) Chloride Level 115 MMOL/L (98-107) H Carbon Dioxide Level 30 MMOL/L (21-32) Anion Gap 7 mmol/L (5-15) Blood Urea Nitrogen 22 mg/dL (7-18) H Creatinine 1.2 MG/DL (0.55-1.30) Estimat Glomerular Filtration Rate mL/min (>60) Glucose Level 114 MG/DL (74-106) H Calcium Level 9.2 MG/DL (8.5-10.1) Total Bilirubin 0.2 MG/DL (0.2-1.0) Aspartate Amino Transf (AST/SGOT) 17 U/L (15-37) Alanine Aminotransferase (ALT/SGPT) 22 U/L (12-78) Alkaline Phosphatase 89 U/L (46-116) Pro-B-Type Natriuretic Peptide 533 pg/mL (0-125) H Total Protein 8.2 G/DL (6.4-8.2) Albumin 2.6 G/DL (3.4-5.0) L Globulin 5.6 g/dL Albumin/Globulin Ratio 0.5 (1.0-2.7) L Plan Problems: (1) Pneumomediastinum (2) Hypoxia (3) Pneumonia (4) Pneumothorax Assessment & Plan: bilateral chest tubes placed prior small air leak noted - resolved on suction CXR with resolved ptx. lots of subcutaneous air. - improving Chest tubes removed at bedside AM CXR (5) Hypernatremia (6) Hypotension (7) Anemia (8) Seizure disorder (9) Septic shock Assessment & Plan: in MARTHA trach CXR noted labs noted cont IV ABx cont vent chest tubes -removed critically ill prognosis guarded (10) HTN (hypertension) (11) Cardiomyopathy (12) Sepsis (13) Acute and chronic respiratory failure (14) Tracheostomy care Assessment & Plan: s/p trach (15) Bowel obstruction (16) Feeding by G-tube Assessment & Plan: DAILY ESTIMATED NEEDS: Needs based on Critical Care, wound 63kg 22-28 kcals/kg 5928-4721 total kcals 1.25-2 g protein/kg 78-126 g total protein 25-30 mL/kg 5671-1112 total fluid mLs NUTRITION DIAGNOSIS: * Swallowing difficulty R/T respiratory status, dysphagia as evidenced by pt is trach/vent + PEG dep, s/p respiratory distress, currently orally intubated, NPO. * Increased kcal/prot needs R/T wound healing as evidenced by pt admitted w/ BL malleolus wounds, pending eval. CURRENT TF:NPO ENTERAL NUTRITION RECOMMENDATIONS: Glucerna 1.2 @ 60ml/hr x 22 hrs + Prosource 1pkt daily to provide 1320ml, 1584kcal, 79g + 11g prot, 1065ml free water - Once medically appropriate, initiate TF on Glucerna 1.2 @ 20ml/hr x 6 hrs. - Advance 10ml q 4-6 hrs as tolerated to goal rate - HOB >30 degrees/ water flushes per MD - Add Prosource 1pkt daily to better meet protein needs. - Hold 1 hour before and after Synthroid med. ADDITIONAL RECOMMENDATIONS: 1) Calibrated bedscale wts 2) Monitor lytes, replete as needed 3) Monitor BGs closely, need for hypoglycemic agents (BG 245 upon adm, now improved) 4) F/up w/ wound eval -Rec Tommie 1pkt BID and Vit C 250mg QD for wound healing (17) Malfunction of gastrostomy tube (18) Chronic respiratory failure (19) Chronic vegetative state (20) Nosocomial pneumonia (21) Fecal impaction (22) ATN (acute tubular necrosis) (23) Ileus (24) Acute on chronic renal failure (25) UTI (urinary tract infection) Livan Dean January 02, 2019 15:33
[2019-01-02 16:00] VITALS: BP 125/56
--- NOTE | 2019-01-02 16:30 | NUR ---
NURSE NOTES: Report given to Quang Esparza [employer] warehouse and receiving supervisor. ETA at 1700.
[2019-01-02] MEDS ORDERED: NS 275ml ONE ×2 (17:59)
[2019-01-02] MEDS ORDERED: Tubing Blood Filter IV ONE (17:59)
--- NOTE | 2019-01-02 18:00 | NUR ---
NURSE NOTES: Patient discharged to [facility], picked up by [facility] ambulance. Patient is awake, nonverbal. On ventilator with previous setting, no distress noted. bus driver/monitor removed from the patient prior to discharge. GT intact and patent. Smith and rectal tube in place and draining well. Left upper arm PICC line intact and patent. Wound assessment done and photos uploaded. Discharge packet handed to ambulance personnel. No belongings. Left a message to public guardian to inform about discharge. Patient condition stable.
--- NOTE | 2019-01-03 15:12 | Discharge Summary ---
Discharge Summary Discharge Summary _ DATE OF ADMISSION: 12/21/2018 DATE OF DISCHARGE: 01/02/2019 DISCHARGED BY: Dr. Rl White CONSULTANTS: Dr. Micha Umana [facility] HOSPITAL COURSE: Patient is an 83-year-old female, from [facility], came to ED due to respiratory distress. Patient has history of encephalopathy, tracheostomy and G -tube dependence. Tracheostomy was replaced. Unfortunately after replacing the tracheostomy, patient apparently developed acute onset of crepitus throughout the face and body. Because of this, patient had desaturation of O2. She was then sent for further evaluation. On arrival to ED, tracheostomy tube was already removed. Patient was being ventilated with a mask by paramedics. Work-up in the ED showed leukocytosis. WBC was elevated to 26. Chest x-ray showed infiltrates. He was started on broad-spectrum IV antibiotics. Chest x- ray showed concerns for possible pneumothorax. CT scan of the lung confirmed presence of pneumothorax. Bilateral chest tubes were placed. Repeat chest x- ray showed chest tubes to be in good position position and lungs were reinflated. Unfortunately, after reinflation of the lungs, patient's blood pressure dropped. Central line was inserted to the left femoral vein. Patient also underwent emergent orotracheal intubation and was admitted to ICU. ID was consulted for sepsis. Patient was pancultured. He was started empirically on IV vancomycin, amikacin and Zosyn pending culture results. She was given IV hydration. Renal parameters were monitored. TSH was low. Synthroid was discontinued. Patient was noted to have some crepitus on the chest. Chest tube was noted to have air leak that resolved. Subcutaneous air and crepitus improved. Chest tube was continued connected to suction. There was a drop of hemoglobin to 7. GI and cribber were consulted. She was continued on PPI. OB was negative. She was given bowel regimen. She had manual disimpaction. Anemia and work-up showed elevated ferritin levels. Epogen and iron not indicated. She was transfused 2 units packed RBC. Sputum culture showed growth of Pseudomonas and Haemophilus influenza. Amikacin was discontinued. She was started on cefepime. Blood culture showed growth of Staphylococcus coagulase-negative staph, most likely contaminant. 2D echo did not show any vegetations. Chest tube was placed on waterseal. On 12/28/2018, patient underwent bronchoscopy and tracheostomy placement. Patient came in with tracheostomy site close, not safe for reinsertion. Patient will continue need of vent support. Patient would need operative tracheostomy. Bronchoscopy was done. There was no abnormalities noted. There was some mild inflammation of the bronchial tissues, but no gross signs of active infection. Patient tolerated procedure well and was taken back to ICU in stable condition. On 12/29/2018, chest tubes were removed at bedside. Patient was stable and was transferred out of ICU. She was saturating well. She was eventually transferred to LTAC. FINAL DIAGNOSES: Sepsis Acute on chronic respiratory failure status post tracheostomy 12/28/2018 Probable pneumonia with Pseudomonas and H influenza Bilateral pneumothorax, with bilateral chest tube, status post removal 12/29/2018 Drop in hemoglobin requiring multiple blood transfusion UTI Hypoalbuminemia Hypertension Dysphasia with PEG tube Fecal impaction Anemia of chronic disease Leukocytosis Chronic right leg DVT, recanalized Acute on chronic renal failure Quadriplegia Dementia seizure disorder [facility] resident DISPOSITION: Patient was discharged to [facility]. I have been assigned to complete a discharge summary on this account, I was not involved with the patient's management. Joselin Logan NP January 03, 2019 15:12
== END 2019-01-02 18:00 | DRG 4 ==
LOC: EDBD 18:15 → EMR 18:46 → ICU 18:59 → EDBEDREQ 19:43 → 2W 12-31 14:40
PROC: 0W9B30Z Drainage of Left Pleural Cavity with Drainage Device, Percutaneous Approach (ICD-10-PCS; principal; 2018-12-21)
PROC: 0BH17EZ Insertion of Endotracheal Airway into Trachea, Via Natural or Artificial Opening (ICD-10-PCS; principal; 2018-12-21)
PROC: 5A1955Z Respiratory Ventilation, Greater than 96 Consecutive Hours (ICD-10-PCS; principal; 2018-12-21)
PROC: 0W9930Z Drainage of Right Pleural Cavity with Drainage Device, Percutaneous Approach (ICD-10-PCS; principal; 2018-12-21)
PROC: 06HN33Z Insertion of Infusion Device into Left Femoral Vein, Percutaneous Approach (ICD-10-PCS; principal; 2018-12-21)
PROC: 02HV33Z Insertion of Infusion Device into Superior Vena Cava, Percutaneous Approach (ICD-10-PCS; 2018-12-28)
PROC: 0B110F4 Bypass Trachea to Cutaneous with Tracheostomy Device, Open Approach (ICD-10-PCS; 2018-12-28)
PROC: 0BJ08ZZ Inspection of Tracheobronchial Tree, Via Natural or Artificial Opening Endoscopic (ICD-10-PCS; 2018-12-28)
PROC: B548ZZA Ultrasonography of Superior Vena Cava, Guidance (ICD-10-PCS; 2018-12-28)
DX: A41.9 Sepsis, unspecified organism (principal); R65.21 Severe sepsis with septic shock; N17.0 Acute kidney failure with tubular necrosis; J96.21 Acute and chronic respiratory failure with hypoxia; J14 Pneumonia due to Hemophilus influenzae; J15.1 Pneumonia due to Pseudomonas; G82.50 Quadriplegia, unspecified; J95.03 Malfunction of tracheostomy stoma; J44.0 Chronic obstructive pulmonary disease with (acute) lower respiratory infection; R40.3 Persistent vegetative state; E87.0 Hyperosmolality and hypernatremia; Z99.11 Dependence on respirator [ventilator] status; N39.0 Urinary tract infection, site not specified; I42.9 Cardiomyopathy, unspecified; K56.609 Unspecified intestinal obstruction, unspecified as to partial versus complete obstruction; K94.23 Gastrostomy malfunction; K56.7 Ileus, unspecified; R71.0 Precipitous drop in hematocrit; J93.9 Pneumothorax, unspecified; I12.9 Hypertensive chronic kidney disease with stage 1 through stage 4 chronic kidney disease, or unspecified chronic kidney disease; N18.9 Chronic kidney disease, unspecified; G40.909 Epilepsy, unspecified, not intractable, without status epilepticus; E88.09 Other disorders of plasma-protein metabolism, not elsewhere classified; J98.2 Interstitial emphysema; K56.41 Fecal impaction; D64.9 Anemia, unspecified; R13.10 Dysphagia, unspecified
CPT/HCPCS: 31500; 36415; 36569; 36600; 71045; 71250; 74018; 76937; 80048; 80053; 80061; 80076; 80150; 80202; 81001; 82043; 82248; 82270; 82533; 82550; 82553; 82570; 82607; 82728; 82746; 82803; 82977; 83036; 83540; 83550; 83605; 83690; 83735; 83880; 84100; 84133; 84300; 84439; 84443; 84481; 84484; 84550; 85007; 85025; 85610; 85730; 86140; 86850; 86900; 86901; 86920; 87040; 87070; 87081; 87086; 87181; 87205; 89050; 93005; 93306; 94002; 94003; 94150; 94664; 96365; 96368; 99291; 99292

== ENCOUNTER 2019-08-05 23:30 | Inpatient (IN) | payer OTHER, MEDICARE, MEDICAID ==
[~2019-08-05] VITALS: Ht 172.7 cm; Wt 57.6 kg
[~2019-08-05 23:30] MED LIST changes: +AMIODARONE HCL400 M1 GT; +FLEET ENEMA133 ML RECTAL; +HYDROXYZINE HCL10 M1 GT; +MELATONIN1 M1 GT; +VITAMIN D1000 UNI1 GT
[2019-08-05 23:45] VITALS: BP 126/84
--- NOTE | 2019-08-05 23:45 | NUR ---
ED Nurse Note: Pt BROUGHT IN BY [facility] FROM [facility] C/O ABNORMAL LABS. WBC 11.8 NA 160. TRACH COOL AEROSOL 30% Pt aaox0, vss with ST, no acute distress. Pt has scaral wound, G-tube upper left.
[2019-08-06] VITALS (7 sets, daily range): BP systolic 100–133; BP diastolic 52–70
[2019-08-06 00:45] LABS: BASOPHILS % (AUTO) 0.4 % (0.0-2.0); EOSINOPHILS % (AUTO) 3.5 % (0.0-3.0); HEMATOCRIT 34.7 % (37.0-47.0); HEMOGLOBIN 10.6 G/DL (12.0-16.0); LYMPHOCYTES % (AUTO) 19.8 % (20.0-45.0); MEAN CORPUSCULAR VOLUME 96 FL (80-99); MONOCYTES % (AUTO) 6.2 % (1.0-10.0); NEUTROPHILS % (AUTO) 70.2 % (45.0-75.0); PLATELET COUNT 217 K/UL (150-450); RED BLOOD COUNT 3.61 M/UL (4.20-5.40); RED CELL DISTRIBUTION WIDTH 13.2 % (11.6-14.8); WHITE BLOOD COUNT 13.4 K/UL (4.8-10.8)
[2019-08-06] MEDS ORDERED: Azithromycin 500 MG in NS 275 ML IV ONE (01:00)
[2019-08-06] MEDS ORDERED: Piperacillin/Tazobactam 3.375 GM in NS 110 ML IVPB ONE (01:00)
[2019-08-06 01:05] LABS: ALANINE AMINOTRANSFERASE 44 U/L (12-78); ALBUMIN/GLOBULIN RATIO 0.4 (1.0-2.7); ALKALINE PHOSPHATASE 126 U/L (46-116); ANION GAP 12 mmol/L (5-15); ASPARTATE AMINO TRANSFERASE 33 U/L (15-37); BILIRUBIN,TOTAL 0.3 MG/DL (0.2-1.0); BLOOD UREA NITROGEN 60 mg/dL (7-18); CARBON DIOXIDE 30 MMOL/L (21-32); CHLORIDE 129 MMOL/L (98-107); CKMB 1.7 NG/ML (0.0-3.6); CREATINE KINASE 114 U/L (26-308); CREATININE 1.5 MG/DL (0.55-1.30); POTASSIUM 4.2 MMOL/L (3.5-5.1)
[2019-08-06 01:08] LABS: SODIUM 169 MMOL/L (136-145)
[2019-08-06] MEDS ORDERED: Sodium Chloride 2,200 ML IVLG ONE (01:15)
[2019-08-06 01:23] LABS: BILIRUBIN, URINE NEGATIVE (NEGATIVE); COLOR,URINE PALE YELLOW; GLUCOSE, URINE (UA) NEGATIVE (NEGATIVE); KETONES,URINE NEGATIVE (NEGATIVE); LEUKOCYTE ESTERASE ,URINE 3+ (NEGATIVE); NITRITE,URINE NEGATIVE (NEGATIVE); PH,URINE 5 (4.5-8.0); PROTEIN,URINE 2+ (NEGATIVE); UROBILINOGEN,URINE NORMAL MG/DL (0.0-1.0)
--- NOTE | 2019-08-06 01:34 | Emergency Room Report ---
History of Present Illness General Chief Complaint: Abnormal Labs Source: Medical Record, EMS Present Illness HPI 84-year-old female presents ED for evaluation. Brought in by EMS from residential facility. Has abnormal labs. Reportedly high sodium and elevated white cell count. Patient nonverbal on arrival. Trach with collar to oxygen. No signs of distress upon arrival. No reported fevers or chills. Unable to provide any additional history at this time. No other aggravating relieving factors. No other associated symptoms Allergies: Coded Allergies: ASPIRIN (Verified Allergy, Unknown, 07/07/17) Patient History Past Medical History: COPD, CVA/TIA, dementia, seizures, other - quadriplegic Past Surgical History: other - trach Pertinent Family History: none Social History: Denies: smoking, alcohol use, drug use Now: No Immunizations: UTD Reviewed Nursing Documentation: PMH: Agreed; PSxH: Agreed Nursing Documentation-PMH Past Medical History: No History, Except For Hx Cardiac Problems: Yes - cardiac arrythmia Hx Hypertension: Yes Hx COPD: Yes Hx Cancer: No Hx Gastrointestinal Problems: Yes Hx Dialysis: No Hx Neurological Problems: Yes - quadriplegic Hx Cerebrovascular Accident: Yes Hx Transient Ischemic Attacks: Yes Hx Dementia: Yes Hx Seizures: Yes Hx Epilepsy: Yes Review of Systems All Other Systems: limited Physical Exam Vital Signs Date Time Temp Pulse Resp B/P (MAP) Pulse Ox O2 Delivery O2 Flow Rate FiO2 08/05/19 23:33 99.7 114 30 123/80 (94) 100 Trach Collar Sp02 EP Interpretation: reviewed, normal General Appearance: no apparent distress, GCS 15, other - nonverbal Head: normocephalic Eyes: bilateral eye normal inspection, bilateral eye PERRL ENT: normal ENT inspection Neck: tracheotomy Respiratory: chest non-tender, crackles Cardiovascular #1: tachycardia Gastrointestinal: normal bowel sounds, non tender, soft, non-distended, no guarding, no rebound, other - Gtube Rectal: deferred Genitourinary: no CVA tenderness Musculoskeletal: back normal Neurologic: other - nonverbal Psychiatric: other - nonverbal Skin: other - see nursing skin notes Lymphatic: normal inspection Medical Decision Making Diagnostic Impression: Primary Impression: Hypernatremia Additional Impressions: Sepsis Qualified Codes: A41.9 - Sepsis, unspecified organism Renal insufficiency Pneumonia Qualified Codes: J18.9 - Pneumonia, unspecified organism Chronic respiratory failure Qualified Codes: J96.10 - Chronic respiratory failure, unspecified whether with hypoxia or hypercapnia ER Course Hospital Course 84 yo F presents for elevated Na, elevated WBC Differential diagnoses include: Pneumonia, UTI, sepsis, dehydration, [place]/ unstable angina Clinical course Patient placed on stretcher. On cardiac exercise specialist with tachycardia. After initial history and physical, I ordered labs, IV fluids, EKG, chest x-ray, blood cultures, UA. Labs - BUN/Cr elevated, noted leukocytosis, troponins negative, lactic > 3 UA pending EKG - sinus tachycardia no acute ischemic changes interpreted by me CXR - RLL infiltrate Abx given. given 30cc/kg fluid bolus. Case discussed with Dr White and they agreed to admit patient to their service for further care and support I feel this is a highly complex case requiring extensive working including EKG/ Rhythm strip, Xray/CT/US, Blood/urine lab work, repeat exams while in ED, and administration of strong opiates/narcotics for pain control, admission to hospital or close patient follow up. Diagnosis - hypernatremia, sepsis, renal insufficiency, pneumonia, chronic respiratory failure Patient admitted to telemetry in serious condition Labs Test 08/06/19 00:10 08/06/19 00:18 White Blood Count 13.4 K/UL (4.8-10.8) Red Blood Count 3.61 M/UL (4.20-5.40) Hemoglobin 10.6 G/DL (12.0-16.0) Hematocrit 34.7 % (37.0-47.0) Mean Corpuscular Volume 96 FL (80-99) Mean Corpuscular Hemoglobin 29.4 PG (27.0-31.0) Mean Corpuscular Hemoglobin Concent 30.6 G/DL (32.0-36.0) Red Cell Distribution Width 13.2 % (11.6-14.8) Platelet Count 217 K/UL (150-450) Mean Platelet Volume 8.4 FL (6.5-10.1) Neutrophils (%) (Auto) 70.2 % (45.0-75.0) Lymphocytes (%) (Auto) 19.8 % (20.0-45.0) Monocytes (%) (Auto) 6.2 % (1.0-10.0) Eosinophils (%) (Auto) 3.5 % (0.0-3.0) Basophils (%) (Auto) 0.4 % (0.0-2.0) Sodium Level 169 MMOL/L (136-145) Potassium Level 4.2 MMOL/L (3.5-5.1) Chloride Level 129 MMOL/L (98-107) Carbon Dioxide Level 30 MMOL/L (21-32) Anion Gap 12 mmol/L (5-15) Blood Urea Nitrogen 60 mg/dL (7-18) Creatinine 1.5 MG/DL (0.55-1.30) Estimat Glomerular Filtration Rate mL/min (>60) Glucose Level 110 MG/DL (74-106) Lactic Acid Level 3.00 mmol/L (0.4-2.0) Calcium Level 10.0 MG/DL (8.5-10.1) Total Bilirubin 0.3 MG/DL (0.2-1.0) Aspartate Amino Transf (AST/SGOT) 33 U/L (15-37) Alanine Aminotransferase (ALT/SGPT) 44 U/L (12-78) Alkaline Phosphatase 126 U/L (46-116) Total Creatine Kinase 114 U/L (26-308) Creatine Kinase MB 1.7 NG/ML (0.0-3.6) Creatine Kinase MB Relative Index 1.4 Troponin I 0.032 ng/mL (0.000-0.056) Pro-B-Type Natriuretic Peptide 389 pg/mL (0-125) Total Protein 9.8 G/DL (6.4-8.2) Albumin 3.0 G/DL (3.4-5.0) Globulin 6.8 g/dL Albumin/Globulin Ratio 0.4 (1.0-2.7) EKG Diagnostic Results Rate: tachycardiac Rhythm: NSR ST Segments: no acute changes ASA given to the pt in ED: No Rhythm Strip Diag. Results EP Interpretation: yes Rhythm: NSR, no PVC's, no ectopy Chest X-Ray Diagnostic Results Chest X-Ray Diagnostic Results : Chest X-Ray Ordered: Yes # of Views/Limited/Complete: 1 View Indication: Shortness of Breath EP Interpretation: Yes Interpretation: no effusion, no pneumothorax, other - increased RLL infiltrate/consolidation Impression: Other - PNA Electronically Signed by: Electronically signed by Tal Sloan MD Last Vital Signs Date Time Temp Pulse Resp B/P (MAP) Pulse Ox O2 Delivery O2 Flow Rate FiO2 08/05/19 23:45 99.6 30 126/84 100 Trach Collar 08/05/19 23:33 114 Status: improved Disposition: ADMITTED INPATIENT Condition: Serious Referrals: Rl White DO (PCP) Tal Sloan MD Aug 06, 2019 01:34
[2019-08-06 01:39] LABS: APPEARANCE,URINE SLIGHTLY CLOUDY
--- NOTE | 2019-08-06 02:05 | NUR ---
ED Nurse Note: Lactic acid sent to lab
--- NOTE | 2019-08-06 03:25 | NUR ---
ED Nurse Note: gAVE REPORT TO RONDA BA
--- NOTE | 2019-08-06 03:33 | NUR ---
TRANSFER TO FLOOR: Patient transferred to TELE as ordered, per Waldeamr AGUILAR. Report given to RONDA BEACH. Belongings and medications given to RONDA BEACH. Family and or S/O informed of transfer.
--- NOTE | 2019-08-06 03:45 | NUR ---
NURSE NOTES: Patient received from RONDA Gray alert and oriented x0, nonverbal and obtunded. IV site asymptomatic and patent on R hand 20g, saline lock. Pt has trach collar with Portex 8, on 5 L O2 saturating at 99%. Pt is contracted x2 on bilateral upper extremities with Gtube on left lower quadrant. No belongings with patient upon admission. Pt has full thickness pressure injury on sacral, hyperpigmentation on bilateral heels, hyperpigmentation on R lateral toe and R lateral foot. WCP taken and WC protocol initiated.
--- NOTE | 2019-08-06 04:10 | NUR ---
NURSE NOTES: RN left message for Dr. White for admission orders, currently awaitng call back.
[2019-08-06] MEDS ORDERED: Acetaminophen 650mg/20.3ml GT PRN ×6 (07:00→20:00)
[2019-08-06] MEDS ORDERED: Albuterol/Ipratropium 3ml neb HHN PRN ×3 (07:00→20:00)
[2019-08-06] MEDS ORDERED: Nitroglycerin Subl 0.4mg tab SL PRN ×3 (07:00→19:00)
[2019-08-06] MEDS ORDERED: TraZODone 50mg tab GT PRN ×3 (07:00→21:00)
[2019-08-06] MEDS ORDERED: Miralax 17gm pkt GT PRN ×2 (07:00→20:00)
[2019-08-06] MEDS ORDERED: Promethazine/Codeine 5ml UD GT PRN ×3 (07:00→19:00)
[2019-08-06] MEDS ORDERED: clonazePAM 0.5mg tab ORAL SCH (07:02)
--- NOTE | 2019-08-06 07:20 | NUR ---
HAND-OFF: Report given to RONDA Schulz.
[2019-08-06] MEDS: clonazePAM 0.5mg tab GT SCH ×2 (07:49→12:00)
--- NOTE | 2019-08-06 07:51 | NUR ---
NURSE NOTES: pt in bed, eyes open but none verbal. Pt on careers adviser, no signs of cardiac or respiratory distress at this time. Call light within reach. Bed locked and in lowest position. pt NPO for now. Pt has Gtube. pt has multiple wounds. Will continue to monitor pt. pt NPO for now. Pt has Gtube. pt has multiple wounds.
[2019-08-06] MEDS ORDERED: Heparin 5000 units/ml inj SUBQ SCH ×2 (09:00→21:00)
--- NOTE | 2019-08-06 09:15 | NUR ---
RD ASSESSMENT & RECOMMENDATIONS SEE CARE ACTIVITY FOR COMPLETE ASSESSMENT DAILY ESTIMATED NEEDS: Needs based on Wound, pulmonary 59.8kg 30-35 kcals/kg 5536-6182 total kcals 1.25-1.5 g protein/kg 75-90 g total protein 25-30ml/kcal mL/kg 7252-4761 total fluid mLs NUTRITION DIAGNOSIS: * Swallowing difficulty R/T respiratory status, dysphagia as evidenced by pt is vent dep via T-collar + PEG dep, NPO at this time * Increased kcal/prot needs R/T wound healing as evidenced by pt admitted w/ full thickness pressure sacral injury, with multiple other wounds, eval pending. (CURRENT TF: NPO) ENTERAL NUTRITION RECOMMENDATIONS: Jevity 1.2 @ 70ml/hr x 22 hrs + Prosource 1pkt QD to provide 1540ml, 1848 kcal, 85g pro, 1243 - As medically able, rec Jevity 1.2, start @30ml/hr for 6 hrs. Advance as tolerated 10ml/hr q4-6 hrs to goal - HOLD TF 1 hr before and after synthroid meds - HOB >30 degrees/ water flushes per MD - TF @ goal provides 100% of RDI. ADDITIONAL RECOMMENDATIONS: 1) Calibrated bedscale wts (EMR wt: 160 lbs vs Bed wt: 131.6lbs) 2) Rec water flushes, 120ml q6 hrs 3) Monitor BGs closely, need for hypoglycemic agents or TF change 4) Wound healing: Vit C 250mg BID Add Tommie 1pkt in 4oz H2O BID 5) F/up w/ H&P and WC eval .
[2019-08-06] MEDS ORDERED: Cefepime HCl 1 GM in D5W 55 ML IV SCH (10:00)
--- NOTE | 2019-08-06 10:45 | Consultation ---
Consult Note Consult Note asked to eval for hypernatremia and renal failure ER: 84-year-old female presents ED for evaluation. [facility] Has abnormal labs. Reportedly high sodium and elevated white cell count. Patient nonverbal on arrival. Trach with collar to oxygen. No signs of distress upon arrival. No reported fevers or chills. Unable to provide any additional history at this time. No other aggravating relieving factors. No other associated symptoms Allergies: ASPIRIN (Verified Allergy, Unknown, 07/07/17) Past Medical History: COPD, CVA/TIA, dementia, seizures, other - quadriplegic Past Surgical History: other - trach Past Medical History: No History, Except For Hx Cardiac Problems: Yes - cardiac arrythmia Hx Hypertension: Yes Hx COPD: Yes Hx Gastrointestinal Problems: Yes Hx Neurological Problems: Yes - quadriplegic Hx Cerebrovascular Accident: Yes Hx Transient Ischemic Attacks: Yes Hx Dementia: Yes Hx Seizures: Yes Hx Epilepsy: Yes examined data reviewed . Assessment/Plan Renal failure mainly prerenal dehydration / Hypernatremia free water deficit Anemia PEG UTI / Pneumonia HypoThyroidism D5W IV Smith blood sugar check monitor renal parameters Tono Case MD Aug 06, 2019 10:45
[2019-08-06] MEDS ORDERED: Vancomycin 1.5gm/NS Premix q24h IVPB SCH (11:00)
[2019-08-06] MEDS ORDERED: Pantoprazole Inj IVP SCH ×2 (11:00→21:00)
--- NOTE | 2019-08-06 11:38 | Consultation ---
History of Present Illness General Date patient seen: Aug 06, 2019 Chief Complaint: Abnormal Labs Present Illness HPI 84 year old male with hx of chronic trach, PEG, vegetative state, HTN, COPD was brought in by paramedics because of abnormal labs. Her WBC was high and she was in renal failure. She can't give any history and all information is obtained from the chart. Her CXR showed RLL infiltrate. she is admitted to telemetry for further management. Allergies: Coded Allergies: ASPIRIN (Verified Allergy, Unknown, 07/07/17) Medication History Scheduled Ascorbic Acid* (Vitamin C*), 500 MG GT DAILY, (Reported) Chlorhexidine Gluconate* (Hibiclens*), 15 ML PO DAILY, (Reported) Clonazepam* (Klonopin*), 0.5 MG ORAL Q6H, (Reported) Cran/Vitc/Mannose/Inulin/Brom (Uti-Stat Liquid), 30 ML GT BID, (Reported) Docusate Sodium* (Colace*), 100 MG GT DAILY, (Reported) Heparin Sod (Porcine) (Heparin Sodium*), 5,000 UNITS SUBQ EVERY 12 HOURS, ( Reported) Hydroxyzine Hcl (Hydroxyzine Hcl), 10 MG GT ONCE DAILY, (Reported) Latanoprost* (Xalatan*), 1 DROP BOTH EYES BEDTIME, (Reported) Levothyroxine Sodium* (Synthroid*), 125 MCG GT DAILY, (Reported) Melatonin (Melatonin), Unknown Dose GT BEDTIME, (Reported) Memantine Hcl* (Namenda*), 5 MG GT TWICE A DAY, (Reported) Multivitamin Liquid* (Multi-Delyn*), 5 ML GT DAILY, (Reported) Na Phos,M-B/Na Phos,Di-Ba* (Fleet Enema*), 133 ML RECTAL DAILY, (Reported) Omeprazole (Omeprazole), 20 MG GT DAILY, (Reported) Scheduled PRN Acetaminophen* (Acetaminophen 325MG Tablet*), 650 MG GT Q4H PRN for Fever/ Headache/Mild Pain, (Reported) Bisacodyl (Bisacodyl), 10 MG RC PRN PRN for Constipation, (Reported) Magnesium Hydroxide* (Milk Of Magnesia*), 30 ML GT DAILY PRN for Constipation, ( Reported) Ondansetron* (Zofran*), 4 MG IM Q6H PRN for Nausea & Vomiting, (Reported) Trazodone Hcl* (Desyrel*), 50 MG GT BEDTIME PRN for insomnia, (Reported) Discontinued Medications Acetaminophen* (Acetaminophen 325MG Tablet*), 600 MG GT Q4H PRN for MILD PAIN, ( Reported) Discontinued Reason: Pt stopped taking med Albuterol Sulfate* (Albuterol Sulfate Hhn*), 3 ML INH Q3HR PRN for Shortness of Breath, (Reported) Discontinued Reason: Pt stopped taking med Albuterol Sulfate* (Albuterol Sulfate Hhn*), 3 ML INH Q6H, (Reported) Discontinued Reason: Pt stopped taking med Amiodarone Hcl* (Amiodarone Hcl*), 200 MG GT ONCE DAILY, (Reported) Discontinued Reason: Pt stopped taking med Cefepime Hcl/D5w (Cefepime-Dextrose 1 Gm/50 Ml), 1 GM IVPB EVERY 12 HOURS Discontinued Reason: Pt stopped taking med Cholecalciferol (Vitamin D3)* (Vitamin D*), 5,000 UNIT GT DAILY, (Reported) Discontinued Reason: Pt stopped taking med Heparin Sodium,Porcine/Ns/Pf (Heparin), 2,000 UNIT IV, (Reported) Discontinued Reason: Pt stopped taking med Lorazepam* (Lorazepam*), 0.5 MG GT Q6HR PRN for For Anxiety, (Reported) Discontinued Reason: Pt stopped taking med Pantoprazole* (Protonix*), 40 MG GT DAILY, (Reported) Discontinued Reason: Pt stopped taking med Patient History Healthcare decision maker Resuscitation status Full Code Advanced Directive on File Family History Family History: (1) Seizure disorder (2) HTN (hypertension) (3) Cardiomyopathy (4) Tracheostomy care (5) Feeding by G-tube (6) Chronic respiratory failure (7) Chronic vegetative state (8) Fecal impaction Review of Systems All Other Systems: negative except mentioned in HPI Physical Exam General Appearance: cachetic, thin Lines, tubes and drains: peripheral HEENT: normocephalic, atraumatic Neck: non-tender, supple Respiratory/Chest: chest wall non-tender Cardiovascular/Chest: normal peripheral pulses, normal rate Abdomen: normal bowel sounds, non tender Genitourinary/Rectal: normal genital exam Extremities: normal range of motion Skin Exam: normal pigmentation Last 24 Hour Vital Signs Date Time Temp Pulse Resp B/P (MAP) Pulse Ox O2 Delivery O2 Flow Rate FiO2 08/06/19 08:44 99.1 101 19 109/66 (80) 97 08/06/19 08:15 96 Cool Aerosol 5.0 28 08/06/19 08:00 5.0 28 08/06/19 04:27 Trach Collar 5.0 08/06/19 04:15 95 08/06/19 04:00 98.9 99 16 125/63 (83) 98 08/06/19 03:50 98.4 99 18 133/70 (91) 99 08/06/19 03:33 99.6 24 97/84 100 Trach Collar 08/05/19 23:45 99.6 30 126/84 100 Trach Collar 08/05/19 23:33 99.7 114 30 123/80 (94) 100 Trach Collar Intake and Output 08/05/19 08/06/19 19:00 07:00 Intake Total 1110 ml Output Total 300 ml Balance 810 ml Intake Oral 0 ml IV Total 1110 ml Output Urine Total 300 ml # Voids 1 Laboratory Tests Test 08/06/19 00:10 08/06/19 00:18 08/06/19 02:04 08/06/19 02:16 Urine Color Pale yellow Urine Appearance Slightly cloudy Urine pH 5 (4.5-8.0) Urine Specific [place] 1.010 (1.005-1.035) Urine Protein 2+ (NEGATIVE) H Urine Glucose (UA) Negative (NEGATIVE) Urine Ketones Negative (NEGATIVE) Urine Blood 3+ (NEGATIVE) H Urine Nitrite Negative (NEGATIVE) Urine Bilirubin Negative (NEGATIVE) Urine Urobilinogen Normal MG/DL (0.0-1.0) Urine Leukocyte Esterase 3+ (NEGATIVE) H Urine RBC 5-10 /HPF (0 - 2) H Urine WBC Tntc /HPF (0 - 2) H Urine Squamous Epithelial Cells None /LPF (NONE/OCC) Urine Bacteria Many /HPF (NONE) H White Blood Count 13.4 K/UL (4.8-10.8) H Red Blood Count 3.61 M/UL (4.20-5.40) L Hemoglobin 10.6 G/DL (12.0-16.0) L Hematocrit 34.7 % (37.0-47.0) L Mean Corpuscular Volume 96 FL (80-99) Mean Corpuscular Hemoglobin 29.4 PG (27.0-31.0) Mean Corpuscular Hemoglobin Concent 30.6 G/DL (32.0-36.0) L Red Cell Distribution Width 13.2 % (11.6-14.8) Platelet Count 217 K/UL (150-450) Mean Platelet Volume 8.4 FL (6.5-10.1) Neutrophils (%) (Auto) 70.2 % (45.0-75.0) Lymphocytes (%) (Auto) 19.8 % (20.0-45.0) L Monocytes (%) (Auto) 6.2 % (1.0-10.0) Eosinophils (%) (Auto) 3.5 % (0.0-3.0) H Basophils (%) (Auto) 0.4 % (0.0-2.0) Sodium Level 169 MMOL/L (136-145) *H Potassium Level 4.2 MMOL/L (3.5-5.1) Chloride Level 129 MMOL/L (98-107) H Carbon Dioxide Level 30 MMOL/L (21-32) Anion Gap 12 mmol/L (5-15) Blood Urea Nitrogen 60 mg/dL (7-18) H Creatinine 1.5 MG/DL (0.55-1.30) H Estimat Glomerular Filtration Rate mL/min (>60) Glucose Level 110 MG/DL (74-106) H Lactic Acid Level 3.00 mmol/L (0.4-2.0) H 1.20 mmol/L (0.66-2.22) Calcium Level 10.0 MG/DL (8.5-10.1) Total Bilirubin 0.3 MG/DL (0.2-1.0) Aspartate Amino Transf (AST/SGOT) 33 U/L (15-37) Alanine Aminotransferase (ALT/SGPT) 44 U/L (12-78) Alkaline Phosphatase 126 U/L (46-116) H Total Creatine Kinase 114 U/L (26-308) Creatine Kinase MB 1.7 NG/ML (0.0-3.6) Creatine Kinase MB Relative Index 1.4 Troponin I 0.032 ng/mL (0.000-0.056) Pro-B-Type Natriuretic Peptide 389 pg/mL (0-125) H Total Protein 9.8 G/DL (6.4-8.2) H Albumin 3.0 G/DL (3.4-5.0) L Globulin 6.8 g/dL Albumin/Globulin Ratio 0.4 (1.0-2.7) L Arterial Blood pH 7.400 (7.350-7.450) Arterial Blood Partial Pressure CO2 41.7 mmHg (35.0-45.0) Arterial Blood Partial Pressure O2 181.9 mmHg (75.0-100.0) H Arterial Blood HCO3 25.3 mmol/L (22.0-26.0) Arterial Blood Oxygen Saturation 98.4 % (95-100) Arterial Blood Base Excess 0.4 (-2-2) Luís Test Positive Microbiology Date/Time Source Procedure Growth Status 08/06/19 01:00 Nasal Nares - Final Complete 08/06/19 01:00 Nasal Nares - Final Complete Height (Feet): 5 Height (Inches): 8.00 Weight (Pounds): 160 Medications Current Medications Medications (Trade) Dose Ordered Sig/Torsten Route PRN Reason Start Time Stop Time Status Last Admin Dose Admin Acetaminophen (Tylenol) 650 mg Q4H PRN GT fever 08/06/19 07:00 09/05/19 06:59 Acetaminophen (Tylenol) 650 mg Q4H PRN GT headache, mild pain 08/06/19 07:15 09/05/19 06:59 Albuterol/ Ipratropium (Albuterol/ Ipratropium) 3 ml Q4H PRN HHN Shortness of Breath 08/06/19 07:00 08/11/19 06:59 Cefepime HCl 1 gm/ Dextrose 55 ml @ 110 mls/hr Q24H IV 08/06/19 10:00 08/13/19 09:59 08/06/19 09:40 Clonazepam (KlonoPIN) 0.5 mg Q6HR GT 08/06/19 07:03 08/13/19 07:01 08/06/19 07:49 Dextrose 1,000 ml @ 75 mls/hr [id number] IV 08/06/19 09:30 09/05/19 09:29 08/06/19 09:40 Heparin Sodium (Porcine) (Heparin 5000 units/ml) 5,000 units EVERY 12 HOURS SUBQ 08/06/19 09:00 09/05/19 08:59 08/06/19 09:43 Levothyroxine Sodium (Synthroid) 125 mcg Q24H GT 08/07/19 06:30 09/06/19 06:29 Nitroglycerin (Ntg) 0.4 mg Q5M PRN SL Prn Chest Pain 08/06/19 07:00 09/05/19 06:59 Ondansetron HCl (Zofran) 4 mg Q6H PRN IVP Nausea & Vomiting 08/06/19 07:00 09/05/19 06:59 Pantoprazole (Protonix) 40 mg EVERY 12 HOURS IVP 08/06/19 11:00 09/05/19 10:59 Polyethylene Glycol (Miralax) 17 gm DAILYPRN PRN GT Constipation 08/06/19 07:00 09/05/19 06:59 Promethazine HCl/ Codeine (Phenergan with Codeine) 5 ml Q4H PRN GT For Cough 08/06/19 07:00 09/05/19 06:59 Temazepam (Restoril) 15 mg HSPRN PRN GT Insomnia 08/06/19 07:15 08/13/19 06:59 Trazodone HCl (Desyrel) 50 mg BEDTIME PRN GT insomnia 08/06/19 07:00 09/05/19 06:59 Vancomycin HCl (Vanco rx to dose) 1 ea DAILY PRN MISC Per rx protocol 08/06/19 07:00 09/05/19 06:59 Vancomycin/Sodium Chloride 275 ml @ 137.5 mls/ hr ONCE IVPB 08/06/19 11:00 08/06/19 13:00 Assessment/Plan Problem List: (1) Nosocomial pneumonia ICD Codes: J18.9 - Pneumonia, unspecified organism SNOMED: 744108817 (2) Acute on chronic renal failure ICD Codes: N17.9 - Acute kidney failure, unspecified; N18.9 - Chronic kidney disease, unspecified SNOMED: 099170880 (3) Chronic respiratory failure ICD Codes: J96.10 - Chronic respiratory failure, unspecified whether with hypoxia or hypercapnia SNOMED: 43103276 Qualifiers: Qualified Codes: J96.10 - Chronic respiratory failure, unspecified whether with hypoxia or hypercapnia (4) Tracheostomy care ICD Codes: Z43.0 - Encounter for attention to tracheostomy SNOMED: 283846527 (5) Cardiomyopathy ICD Codes: I42.9 - Cardiomyopathy, unspecified SNOMED: 55346170 (6) Seizure disorder ICD Codes: G40.909 - Epilepsy, unspecified, not intractable, without status epilepticus SNOMED: 775497966 (7) Feeding by G-tube ICD Codes: Z93.1 - Gastrostomy status SNOMED: 952893811, 149267735 (8) Chronic vegetative state ICD Codes: R40.3 - Persistent vegetative state SNOMED: 97392564 Respiratory: adjust tidal volume, monitor respiratory rate, adjust FIO2 Cardiac: continue to monitor HR/BP Renal: F/U I&O, keep IV fluid, check electrolytes Infectious Disease: check cultures, continue antibiotics Gastrointestinal: continue feedings/current rate Endocrine: monitor blood sugar Hematologic: monitor H/H Neurologic: PRN Ativan, keep patient comfortable Affect: PRN ativan Prophylaxis: Heparin 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
--- NOTE | 2019-08-06 13:10 | NUR ---
NURSE NOTES:WOUND CARE NOTES:Pt presented on admission with multiple pressure injuries. Skin assessed under trach collar and no evidence of skin breakdown noted. Unstageable pressure injury noted to sacrum(L)1.5cm x (W)2cm. Base of wound has 75% slough,25%pink granulation. Borders are macerated with surrounding non-blanching erythema. R heel Maroon,fluctuant in center with surrounding dry black borders(L)5.5cm x (W)9cm. Reabsorbed DTPI noted to L heel. Base of wound is Black and dry. Surrounding dry peeling skin without erythema.(L)5.5cm x (W)8.5cm. Inferior but in close proximity to Medial L malleolus necrotic area over bony prominence noted. Base of wound is dry without fluctuance. Periwound without discoloration.(L)1.5cm x (W)1cm. Non-Blanching erythema noted to L 1st metatarsal head and lateral aspect. No elevation in skin temp noted. Tx.Plan:Cleanse Sacral wound with Saline. Apply TheraHoney . Apply Moisture Barrier paste periwound. Cover with Optifoam drsg. Change every 3 days and prn. Apply Betadine to R heel. Cover with Optifoam drsg. Change every 3 days and prn. Apply Betadine to L Heel and Medial L foot. Cover with Optifoam drsg. Change every 3 days and prn. Apply Cavilon Skin Barrier to L 1st metatarsal head and lateral aspect Daily and prn. APM/MARCOS Mattress overlay. Reposition at least every 2hours or as tolerated. Off-load heels with pillow. Place pillow between knees.
--- NOTE | 2019-08-06 14:58 | Diagnostic Imaging Report ---
Indication: Cough Technique: One view of the chest Comparison: 01/02/2019 Findings: Tracheostomy is again demonstrated. There is mild interstitial prominence, extent which appears similar to the previous study. The pleural spaces are grossly clear. The heart size is normal. No focal airspace consolidation. Previously demonstrated left arm PICC is no longer evident Impression: Bilateral interstitial disease, may be on the basis of pulmonary edema or may reflect inflammatory changes. This is similar to the previous study of 01/02/2019, 70 may also be a chronic component
--- NOTE | 2019-08-06 16:13 | Consultation ---
History of Present Illness General Date patient seen: Aug 06, 2019 Chief Complaint: Abnormal Labs Present Illness HPI 84 y/o F with hx of HTN, seizure disorder, Dementia, CVA/TIA, quadriplegia, chronic resp failure s/p trac/vent dependant, dysphagia s/p PEG, COPD, hx of PNA and septic shock with MDRO, hx of MDR ABC VAP 2017, SN[facility] resident presented to ED on 08/06 with abnormal labs (Elevated Na and WBC). CXR showed RLL infiltrate No reported fever, chills Allergies: Coded Allergies: ASPIRIN (Verified Allergy, Unknown, 07/07/17) Medication History Scheduled Ascorbic Acid* (Vitamin C*), 500 MG GT DAILY, (Reported) Chlorhexidine Gluconate* (Hibiclens*), 15 ML PO DAILY, (Reported) Clonazepam* (Klonopin*), 0.5 MG ORAL Q6H, (Reported) Cran/Vitc/Mannose/Inulin/Brom (Uti-Stat Liquid), 30 ML GT BID, (Reported) Docusate Sodium* (Colace*), 100 MG GT DAILY, (Reported) Heparin Sod (Porcine) (Heparin Sodium*), 5,000 UNITS SUBQ EVERY 12 HOURS, ( Reported) Hydroxyzine Hcl (Hydroxyzine Hcl), 10 MG GT ONCE DAILY, (Reported) Latanoprost* (Xalatan*), 1 DROP BOTH EYES BEDTIME, (Reported) Levothyroxine Sodium* (Synthroid*), 125 MCG GT DAILY, (Reported) Melatonin (Melatonin), Unknown Dose GT BEDTIME, (Reported) Memantine Hcl* (Namenda*), 5 MG GT TWICE A DAY, (Reported) Multivitamin Liquid* (Multi-Delyn*), 5 ML GT DAILY, (Reported) Na Phos,M-B/Na Phos,Di-Ba* (Fleet Enema*), 133 ML RECTAL DAILY, (Reported) Omeprazole (Omeprazole), 20 MG GT DAILY, (Reported) Scheduled PRN Acetaminophen* (Acetaminophen 325MG Tablet*), 650 MG GT Q4H PRN for Fever/ Headache/Mild Pain, (Reported) Bisacodyl (Bisacodyl), 10 MG RC PRN PRN for Constipation, (Reported) Magnesium Hydroxide* (Milk Of Magnesia*), 30 ML GT DAILY PRN for Constipation, ( Reported) Ondansetron* (Zofran*), 4 MG IM Q6H PRN for Nausea & Vomiting, (Reported) Trazodone Hcl* (Desyrel*), 50 MG GT BEDTIME PRN for insomnia, (Reported) Discontinued Medications Acetaminophen* (Acetaminophen 325MG Tablet*), 600 MG GT Q4H PRN for MILD PAIN, ( Reported) Discontinued Reason: Pt stopped taking med Albuterol Sulfate* (Albuterol Sulfate Hhn*), 3 ML INH Q3HR PRN for Shortness of Breath, (Reported) Discontinued Reason: Pt stopped taking med Albuterol Sulfate* (Albuterol Sulfate Hhn*), 3 ML INH Q6H, (Reported) Discontinued Reason: Pt stopped taking med Amiodarone Hcl* (Amiodarone Hcl*), 200 MG GT ONCE DAILY, (Reported) Discontinued Reason: Pt stopped taking med Cefepime Hcl/D5w (Cefepime-Dextrose 1 Gm/50 Ml), 1 GM IVPB EVERY 12 HOURS Discontinued Reason: Pt stopped taking med Cholecalciferol (Vitamin D3)* (Vitamin D*), 5,000 UNIT GT DAILY, (Reported) Discontinued Reason: Pt stopped taking med Heparin Sodium,Porcine/Ns/Pf (Heparin), 2,000 UNIT IV, (Reported) Discontinued Reason: Pt stopped taking med Lorazepam* (Lorazepam*), 0.5 MG GT Q6HR PRN for For Anxiety, (Reported) Discontinued Reason: Pt stopped taking med Pantoprazole* (Protonix*), 40 MG GT DAILY, (Reported) Discontinued Reason: Pt stopped taking med Patient History Healthcare decision maker Resuscitation status Full Code Advanced Directive on File Patient History Narrative Pmhx: as above Shx: Denies: smoking, alcohol use, drug use Fhx: non contributory Review of Systems ROS Narrative unable to obtain Physical Exam Physical Exam Narrative General Appearance: cachetic, thin Lines, tubes and drains: peripheral HEENT: normocephalic, atraumatic Neck: non-tender, supple Respiratory/Chest: chest wall non-tender Cardiovascular/Chest: normal peripheral pulses, normal rate Abdomen: normal bowel sounds, non tender Genitourinary/Rectal: normal genital exam Extremities: normal range of motion Skin Exam: normal pigmentation Last 24 Hour Vital Signs Date Time Temp Pulse Resp B/P (MAP) Pulse Ox O2 Delivery O2 Flow Rate FiO2 08/06/19 12:34 99.1 97 19 121/62 (81) 99 08/06/19 12:00 97 08/06/19 12:00 5.0 28 08/06/19 09:00 Trach Collar 5.0 08/06/19 08:44 99.1 101 19 109/66 (80) 97 08/06/19 08:15 96 Cool Aerosol 5.0 28 08/06/19 08:00 102 08/06/19 08:00 5.0 28 08/06/19 04:27 Trach Collar 5.0 08/06/19 04:15 95 08/06/19 04:00 98.9 99 16 125/63 (83) 98 08/06/19 03:50 98.4 99 18 133/70 (91) 99 08/06/19 03:33 99.6 24 97/84 100 Trach Collar 08/05/19 23:45 99.6 30 126/84 100 Trach Collar 08/05/19 23:33 99.7 114 30 123/80 (94) 100 Trach Collar Intake and Output 08/05/19 08/06/19 19:00 07:00 Intake Total 1110 ml Output Total 300 ml Balance 810 ml Intake Oral 0 ml IV Total 1110 ml Output Urine Total 300 ml # Voids 1 Laboratory Tests Test 08/06/19 00:10 08/06/19 00:18 08/06/19 02:04 08/06/19 02:16 Urine Color Pale yellow Urine Appearance Slightly cloudy Urine pH 5 (4.5-8.0) Urine Specific [place] 1.010 (1.005-1.035) Urine Protein 2+ (NEGATIVE) H Urine Glucose (UA) Negative (NEGATIVE) Urine Ketones Negative (NEGATIVE) Urine Blood 3+ (NEGATIVE) H Urine Nitrite Negative (NEGATIVE) Urine Bilirubin Negative (NEGATIVE) Urine Urobilinogen Normal MG/DL (0.0-1.0) Urine Leukocyte Esterase 3+ (NEGATIVE) H Urine RBC 5-10 /HPF (0 - 2) H Urine WBC Tntc /HPF (0 - 2) H Urine Squamous Epithelial Cells None /LPF (NONE/OCC) Urine Bacteria Many /HPF (NONE) H White Blood Count 13.4 K/UL (4.8-10.8) H Red Blood Count 3.61 M/UL (4.20-5.40) L Hemoglobin 10.6 G/DL (12.0-16.0) L Hematocrit 34.7 % (37.0-47.0) L Mean Corpuscular Volume 96 FL (80-99) Mean Corpuscular Hemoglobin 29.4 PG (27.0-31.0) Mean Corpuscular Hemoglobin Concent 30.6 G/DL (32.0-36.0) L Red Cell Distribution Width 13.2 % (11.6-14.8) Platelet Count 217 K/UL (150-450) Mean Platelet Volume 8.4 FL (6.5-10.1) Neutrophils (%) (Auto) 70.2 % (45.0-75.0) Lymphocytes (%) (Auto) 19.8 % (20.0-45.0) L Monocytes (%) (Auto) 6.2 % (1.0-10.0) Eosinophils (%) (Auto) 3.5 % (0.0-3.0) H Basophils (%) (Auto) 0.4 % (0.0-2.0) Sodium Level 169 MMOL/L (136-145) *H Potassium Level 4.2 MMOL/L (3.5-5.1) Chloride Level 129 MMOL/L (98-107) H Carbon Dioxide Level 30 MMOL/L (21-32) Anion Gap 12 mmol/L (5-15) Blood Urea Nitrogen 60 mg/dL (7-18) H Creatinine 1.5 MG/DL (0.55-1.30) H Estimat Glomerular Filtration Rate mL/min (>60) Glucose Level 110 MG/DL (74-106) H Lactic Acid Level 3.00 mmol/L (0.4-2.0) H 1.20 mmol/L (0.66-2.22) Calcium Level 10.0 MG/DL (8.5-10.1) Total Bilirubin 0.3 MG/DL (0.2-1.0) Aspartate Amino Transf (AST/SGOT) 33 U/L (15-37) Alanine Aminotransferase (ALT/SGPT) 44 U/L (12-78) Alkaline Phosphatase 126 U/L (46-116) H Total Creatine Kinase 114 U/L (26-308) Creatine Kinase MB 1.7 NG/ML (0.0-3.6) Creatine Kinase MB Relative Index 1.4 Troponin I 0.032 ng/mL (0.000-0.056) Pro-B-Type Natriuretic Peptide 389 pg/mL (0-125) H Total Protein 9.8 G/DL (6.4-8.2) H Albumin 3.0 G/DL (3.4-5.0) L Globulin 6.8 g/dL Albumin/Globulin Ratio 0.4 (1.0-2.7) L Arterial Blood pH 7.400 (7.350-7.450) Arterial Blood Partial Pressure CO2 41.7 mmHg (35.0-45.0) Arterial Blood Partial Pressure O2 181.9 mmHg (75.0-100.0) H Arterial Blood HCO3 25.3 mmol/L (22.0-26.0) Arterial Blood Oxygen Saturation 98.4 % (95-100) Arterial Blood Base Excess 0.4 (-2-2) Luís Test Positive Microbiology Date/Time Source Procedure Growth Status 08/06/19 01:00 Nasal Nares - Final Complete 08/06/19 01:00 Nasal Nares - Final Complete Height (Feet): 5 Height (Inches): 8.00 Weight (Pounds): 160 Medications Current Medications Medications (Trade) Dose Ordered Sig/Torsten Route PRN Reason Start Time Stop Time Status Last Admin Dose Admin Acetaminophen (Tylenol) 650 mg Q4H PRN GT fever 08/06/19 07:00 09/05/19 06:59 Acetaminophen (Tylenol) 650 mg Q4H PRN GT headache, mild pain 08/06/19 07:15 09/05/19 06:59 Albuterol/ Ipratropium (Albuterol/ Ipratropium) 3 ml Q4H PRN HHN Shortness of Breath 08/06/19 07:00 08/11/19 06:59 Cefepime HCl 1 gm/ Dextrose 55 ml @ 110 mls/hr Q24H IV 08/06/19 10:00 08/13/19 09:59 08/06/19 09:40 Clonazepam (KlonoPIN) 0.5 mg Q6HR GT 08/06/19 07:03 08/13/19 07:01 08/06/19 12:00 Dextrose 1,000 ml @ 75 mls/hr [id number] IV 08/06/19 09:30 09/05/19 09:29 08/06/19 09:40 Heparin Sodium (Porcine) (Heparin 5000 units/ml) 5,000 units EVERY 12 HOURS SUBQ 08/06/19 09:00 09/05/19 08:59 08/06/19 09:43 Levothyroxine Sodium (Synthroid) 125 mcg Q24H GT 08/07/19 06:30 09/06/19 06:29 Nitroglycerin (Ntg) 0.4 mg Q5M PRN SL Prn Chest Pain 08/06/19 07:00 09/05/19 06:59 Ondansetron HCl (Zofran) 4 mg Q6H PRN IVP Nausea & Vomiting 08/06/19 07:00 09/05/19 06:59 Pantoprazole (Protonix) 40 mg EVERY 12 HOURS IVP 08/06/19 11:00 09/05/19 10:59 08/06/19 11:59 Polyethylene Glycol (Miralax) 17 gm DAILYPRN PRN GT Constipation 08/06/19 07:00 09/05/19 06:59 Promethazine HCl/ Codeine (Phenergan with Codeine) 5 ml Q4H PRN GT For Cough 08/06/19 07:00 09/05/19 06:59 Temazepam (Restoril) 15 mg HSPRN PRN GT Insomnia 08/06/19 07:15 08/13/19 06:59 Trazodone HCl (Desyrel) 50 mg BEDTIME PRN GT insomnia 08/06/19 07:00 09/05/19 06:59 Vancomycin HCl (Vanco rx to dose) 1 ea DAILY PRN MISC Per rx protocol 08/06/19 07:00 09/05/19 06:59 Assessment/Plan Assessment/Plan: Abx: IV Vancomycin 08/06- Cefepime 08/06- Zosyn x1 08/06 Assessment: Sepsis Probable UTI -u/a wbc tnct; ucx p Probable PNA -CXR: Bilateral interstitial disease, may be on the basis of pulmonary edema or may reflect inflammatory changes. This is similar to the previous study of 01/02/2019, 70 may also be a chronic component -influenza sc neg Leukocytosis Afebrile Hypernatremia JAMES hx of PNA -12/2018 sp cx PsA -10/2017 MDR PSA, H. flu hx of septic shock with MDRO hx of MDR ABC VAP 2017 hx of b/l pneumothorax 12/2018 HTN seizure disorder Dementia CVA/TIA quadriplegia chronic resp failure s/p trac/vent dependant dysphagia s/p PEG COPD SNF resident Plan: -Continue empiric IV Vancomycin and Cefepime #1 -f/u cx -Monitor CBC/CMP, temperatures -peg/trach care -aspiration precautions Thank you for this consultation. Will continue to follow along with you. Discussed with Yane Draper M.D. Aug 06, 2019 16:13
[2019-08-06] MEDS ORDERED: clonazePAM 0.5mg tab GT SCH (18:00)
--- NOTE | 2019-08-06 18:20 | NUR ---
NURSE NOTES: Received patient from tele. Patient is obtune, non verbal with trach. Skin assessment done and obtained wound pictures. No belongings. GT intact, patient is with pure wick, IV intact, no s/s of infiltration. HOB elevated, suctioned patient's trach. Bed is locked. Re-position done. Will continue plan of care.
--- NOTE | 2019-08-06 18:58 | NUR ---
NURSE NOTES: [facility] Pt was transferred in stable condition . Pt has a trach and report was given to Chintan/RN. Monitor was taken off from pt. Pt Iv is patent. Pt has G-tube and needs to be flushed q6 hrs 100ml of H2o. pt chart was brought upstairs. Pt has no belongings.
--- NOTE | 2019-08-06 19:27 | NUR ---
HAND-OFF: Report given to Minsu.
--- NOTE | 2019-08-06 19:27 | NUR ---
NURSE NOTES: Received report from RONDA Yung. Patient obtundant, non-verbal, and asleep with trach. No s/s of pain noted at this time. IV noted on the right hand intact and running fluid as ordered. Bed placed at the lowest with alarm, brake, and siderails up and padded for patient safety. Call light placed within reach. Will continue to monitor and provide care as ordered. Addendum: 08/06/19 at 2017 by Brook Kirkpatrick RN gtube noted on left upper quadrant intact with dry dressing for skin protection. Gtube currently locked and clamped.
--- NOTE | 2019-08-06 19:30 | NUR ---
NURSE NOTES: P200 mattress arrived. Placed patient on P200 mattress. Patient in stable condition. Will continue to monitor.
--- NOTE | 2019-08-06 20:29 | NUR ---
NURSE NOTES: Informed Dr. Yu about RD recommendation on GT feeding. Dr. Yu made aware and received order to Keep pt NPO for now. Will carry out the order and continue to monitor the patient.
--- NOTE | 2019-08-06 20:43 | Consultation ---
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 Patient admitted further work-up care and management. Urine identified to have UTI. On examination noted to have multiple decubitus ulcers requiring care and management. Unstageable wounds and high risk for deterioration. Surgery called to evaluate and assist with care. Patient seen, patient evaluated, chart reviewed. Allergies: Coded Allergies: ASPIRIN (Verified Allergy, Unknown, 07/07/17) Medication History Scheduled Ascorbic Acid* (Vitamin C*), 500 MG GT DAILY, (Reported) Chlorhexidine Gluconate* (Hibiclens*), 15 ML PO DAILY, (Reported) Clonazepam* (Klonopin*), 0.5 MG ORAL Q6H, (Reported) Cran/Vitc/Mannose/Inulin/Brom (Uti-Stat Liquid), 30 ML GT BID, (Reported) Docusate Sodium* (Colace*), 100 MG GT DAILY, (Reported) Heparin Sod (Porcine) (Heparin Sodium*), 5,000 UNITS SUBQ EVERY 12 HOURS, ( Reported) Hydroxyzine Hcl (Hydroxyzine Hcl), 10 MG GT ONCE DAILY, (Reported) Latanoprost* (Xalatan*), 1 DROP BOTH EYES BEDTIME, (Reported) Levothyroxine Sodium* (Synthroid*), 125 MCG GT DAILY, (Reported) Melatonin (Melatonin), Unknown Dose GT BEDTIME, (Reported) Memantine Hcl* (Namenda*), 5 MG GT TWICE A DAY, (Reported) Multivitamin Liquid* (Multi-Delyn*), 5 ML GT DAILY, (Reported) Na Phos,M-B/Na Phos,Di-Ba* (Fleet Enema*), 133 ML RECTAL DAILY, (Reported) Omeprazole (Omeprazole), 20 MG GT DAILY, (Reported) Scheduled PRN Acetaminophen* (Acetaminophen 325MG Tablet*), 650 MG GT Q4H PRN for Fever/ Headache/Mild Pain, (Reported) Bisacodyl (Bisacodyl), 10 MG RC PRN PRN for Constipation, (Reported) Magnesium Hydroxide* (Milk Of Magnesia*), 30 ML GT DAILY PRN for Constipation, ( Reported) Ondansetron* (Zofran*), 4 MG IM Q6H PRN for Nausea & Vomiting, (Reported) Trazodone Hcl* (Desyrel*), 50 MG GT BEDTIME PRN for insomnia, (Reported) Discontinued Medications Acetaminophen* (Acetaminophen 325MG Tablet*), 600 MG GT Q4H PRN for MILD PAIN, ( Reported) Discontinued Reason: Pt stopped taking med Albuterol Sulfate* (Albuterol Sulfate Hhn*), 3 ML INH Q3HR PRN for Shortness of Breath, (Reported) Discontinued Reason: Pt stopped taking med Albuterol Sulfate* (Albuterol Sulfate Hhn*), 3 ML INH Q6H, (Reported) Discontinued Reason: Pt stopped taking med Amiodarone Hcl* (Amiodarone Hcl*), 200 MG GT ONCE DAILY, (Reported) Discontinued Reason: Pt stopped taking med Cefepime Hcl/D5w (Cefepime-Dextrose 1 Gm/50 Ml), 1 GM IVPB EVERY 12 HOURS Discontinued Reason: Pt stopped taking med Cholecalciferol (Vitamin D3)* (Vitamin D*), 5,000 UNIT GT DAILY, (Reported) Discontinued Reason: Pt stopped taking med Heparin Sodium,Porcine/Ns/Pf (Heparin), 2,000 UNIT IV, (Reported) Discontinued Reason: Pt stopped taking med Lorazepam* (Lorazepam*), 0.5 MG GT Q6HR PRN for For Anxiety, (Reported) Discontinued Reason: Pt stopped taking med Pantoprazole* (Protonix*), 40 MG GT DAILY, (Reported) Discontinued Reason: Pt stopped taking med Patient History Limited by: medical condition History Provided By: Medical Record, PMD Healthcare decision maker Resuscitation status Full Code Advanced Directive on File Past Medical/Surgical History Past Medical/Surgical History: (1) Hypernatremia (2) Hypotension (3) Anemia (4) Seizure disorder (5) Septic shock (6) HTN (hypertension) (7) Cardiomyopathy (8) Sepsis (9) Acute and chronic respiratory failure (10) Tracheostomy care (11) Bowel obstruction (12) Feeding by G-tube (13) Malfunction of gastrostomy tube (14) Chronic respiratory failure (15) Chronic vegetative state (16) Nosocomial pneumonia (17) Fecal impaction (18) ATN (acute tubular necrosis) (19) Ileus (20) Acute on chronic renal failure (21) UTI (urinary tract infection) Review of Systems ROS Narrative cannot obtain given medical condition Physical Exam General Appearance: no apparent distress Lines, tubes and drains: peripheral, trach HEENT: mucous membranes moist Neck: supple, normal inspection, trach Respiratory/Chest: no respiratory distress, no accessory muscle use, decreased breath sounds Cardiovascular/Chest: normal rate Abdomen: soft, no organomegaly, feeding tube, other Extremities: slow capillary refill, other Skin Exam: warm/dry Neurologic: other Last 24 Hour Vital Signs Date Time Temp Pulse Resp B/P (MAP) Pulse Ox O2 Delivery O2 Flow Rate FiO2 08/06/19 20:07 97 Cool Aerosol 5.0 28 08/06/19 20:00 98.6 103 20 100/52 (68) 100 08/06/19 20:00 5.0 28 08/06/19 16:00 97.8 95 18 121/69 (86) 98 08/06/19 16:00 5.0 28 08/06/19 13:26 97 Cool Aerosol 5.0 28 08/06/19 12:34 99.1 97 19 121/62 (81) 99 08/06/19 12:00 97 08/06/19 12:00 5.0 28 08/06/19 09:00 Trach Collar 5.0 08/06/19 08:44 99.1 101 19 109/66 (80) 97 08/06/19 08:15 96 Cool Aerosol 5.0 28 08/06/19 08:00 102 08/06/19 08:00 5.0 28 08/06/19 04:27 Trach Collar 5.0 08/06/19 04:15 95 08/06/19 04:00 98.9 99 16 125/63 (83) 98 08/06/19 03:50 98.4 99 18 133/70 (91) 99 08/06/19 03:33 99.6 24 97/84 100 Trach Collar 08/05/19 23:45 99.6 30 126/84 100 Trach Collar 08/05/19 23:33 99.7 114 30 123/80 (94) 100 Trach Collar Intake and Output 08/05/19 08/06/19 19:00 07:00 Intake Total 1110 ml Output Total 300 ml Balance 810 ml Intake Oral 0 ml IV Total 1110 ml Output Urine Total 300 ml # Voids 1 Laboratory Tests Test 08/06/19 00:10 08/06/19 00:18 08/06/19 02:04 08/06/19 02:16 Urine Color Pale yellow Urine Appearance Slightly cloudy Urine pH 5 (4.5-8.0) Urine Specific [place] 1.010 (1.005-1.035) Urine Protein 2+ (NEGATIVE) H Urine Glucose (UA) Negative (NEGATIVE) Urine Ketones Negative (NEGATIVE) Urine Blood 3+ (NEGATIVE) H Urine Nitrite Negative (NEGATIVE) Urine Bilirubin Negative (NEGATIVE) Urine Urobilinogen Normal MG/DL (0.0-1.0) Urine Leukocyte Esterase 3+ (NEGATIVE) H Urine RBC 5-10 /HPF (0 - 2) H Urine WBC Tntc /HPF (0 - 2) H Urine Squamous Epithelial Cells None /LPF (NONE/OCC) Urine Bacteria Many /HPF (NONE) H White Blood Count 13.4 K/UL (4.8-10.8) H Red Blood Count 3.61 M/UL (4.20-5.40) L Hemoglobin 10.6 G/DL (12.0-16.0) L Hematocrit 34.7 % (37.0-47.0) L Mean Corpuscular Volume 96 FL (80-99) Mean Corpuscular Hemoglobin 29.4 PG (27.0-31.0) Mean Corpuscular Hemoglobin Concent 30.6 G/DL (32.0-36.0) L Red Cell Distribution Width 13.2 % (11.6-14.8) Platelet Count 217 K/UL (150-450) Mean Platelet Volume 8.4 FL (6.5-10.1) Neutrophils (%) (Auto) 70.2 % (45.0-75.0) Lymphocytes (%) (Auto) 19.8 % (20.0-45.0) L Monocytes (%) (Auto) 6.2 % (1.0-10.0) Eosinophils (%) (Auto) 3.5 % (0.0-3.0) H Basophils (%) (Auto) 0.4 % (0.0-2.0) Sodium Level 169 MMOL/L (136-145) *H Potassium Level 4.2 MMOL/L (3.5-5.1) Chloride Level 129 MMOL/L (98-107) H Carbon Dioxide Level 30 MMOL/L (21-32) Anion Gap 12 mmol/L (5-15) Blood Urea Nitrogen 60 mg/dL (7-18) H Creatinine 1.5 MG/DL (0.55-1.30) H Estimat Glomerular Filtration Rate mL/min (>60) Glucose Level 110 MG/DL (74-106) H Lactic Acid Level 3.00 mmol/L (0.4-2.0) H 1.20 mmol/L (0.66-2.22) Calcium Level 10.0 MG/DL (8.5-10.1) Total Bilirubin 0.3 MG/DL (0.2-1.0) Aspartate Amino Transf (AST/SGOT) 33 U/L (15-37) Alanine Aminotransferase (ALT/SGPT) 44 U/L (12-78) Alkaline Phosphatase 126 U/L (46-116) H Total Creatine Kinase 114 U/L (26-308) Creatine Kinase MB 1.7 NG/ML (0.0-3.6) Creatine Kinase MB Relative Index 1.4 Troponin I 0.032 ng/mL (0.000-0.056) Pro-B-Type Natriuretic Peptide 389 pg/mL (0-125) H Total Protein 9.8 G/DL (6.4-8.2) H Albumin 3.0 G/DL (3.4-5.0) L Globulin 6.8 g/dL Albumin/Globulin Ratio 0.4 (1.0-2.7) L Arterial Blood pH 7.400 (7.350-7.450) Arterial Blood Partial Pressure CO2 41.7 mmHg (35.0-45.0) Arterial Blood Partial Pressure O2 181.9 mmHg (75.0-100.0) H Arterial Blood HCO3 25.3 mmol/L (22.0-26.0) Arterial Blood Oxygen Saturation 98.4 % (95-100) Arterial Blood Base Excess 0.4 (-2-2) Luís Test Positive Microbiology Date/Time Source Procedure Growth Status 08/06/19 01:00 Nasal Nares - Final Complete 08/06/19 01:00 Nasal Nares - Final Complete Height (Feet): 5 Height (Inches): 8.00 Weight (Pounds): 160 Medications Current Medications Medications (Trade) Dose Ordered Sig/Torsten Route PRN Reason Start Time Stop Time Status Last Admin Dose Admin Acetaminophen (Tylenol) 650 mg Q4H PRN GT fever (temp>100.5F) 08/06/19 20:00 09/05/19 19:59 Acetaminophen (Tylenol) 650 mg Q4H PRN GT headache, mild pain 08/06/19 20:00 09/05/19 19:59 Albuterol/ Ipratropium (Albuterol/ Ipratropium) 3 ml Q4H PRN HHN Shortness of Breath 08/06/19 20:00 08/11/19 19:59 Cefepime HCl 1 gm/ Dextrose 55 ml @ 110 mls/hr Q24H IV 08/07/19 10:00 08/13/19 09:59 Clonazepam (KlonoPIN) 0.5 mg Q6HR GT 08/07/19 00:00 08/13/19 07:01 Dextrose 1,000 ml @ 75 mls/hr [id number] IV 08/06/19 20:00 09/05/19 19:59 08/06/19 20:15 Heparin Sodium (Porcine) (Heparin 5000 units/ml) 5,000 units EVERY 12 HOURS SUBQ 08/06/19 21:00 09/05/19 08:59 Levothyroxine Sodium (Synthroid) 125 mcg Q24H GT 08/07/19 06:30 09/06/19 06:29 Nitroglycerin (Ntg) 0.4 mg Q5M PRN SL Prn Chest Pain 08/06/19 19:00 09/05/19 06:59 Ondansetron HCl (Zofran) 4 mg Q6H PRN IVP Nausea & Vomiting 08/06/19 19:00 09/05/19 06:59 Pantoprazole (Protonix) 40 mg EVERY 12 HOURS IVP 08/06/19 21:00 09/05/19 10:59 Polyethylene Glycol (Miralax) 17 gm DAILYPRN PRN GT Constipation 08/06/19 20:00 09/05/19 19:59 Promethazine HCl/ Codeine (Phenergan with Codeine) 5 ml Q4H PRN GT For Cough 08/06/19 19:00 09/05/19 06:59 Temazepam (Restoril) 15 mg HSPRN PRN GT Insomnia 08/06/19 21:00 08/13/19 20:59 Trazodone HCl (Desyrel) 50 mg BEDTIME PRN GT insomnia 08/06/19 21:00 09/05/19 06:59 Vancomycin HCl (Vanco rx to dose) 1 ea DAILY PRN MISC Per rx protocol 08/07/19 09:00 09/05/19 18:29 Assessment/Plan Problem List: (1) Sepsis Assessment & Plan: 84-year-old very unfortunate female with multiple medical comorbidities who has leukocytosis, lactic acidosis, likely UTI. Presents with multiple wounds and unstageable decubitus ulcers. Wound evaluated at bedside and unlikely the etiology of patient's sepsis. Leukocytosis lactic sepsis likely due to UTI. Patient currently on IV antibiotics as per infectious disease. Lactic acidosis improving. Exam as above. Care management as presented below. We will continue to follow recommendations. Thank you Willett participate in patient's care ICD Codes: A41.9 - Sepsis, unspecified organism SNOMED: 70553263 Qualifiers: Qualified Codes: A41.9 - Sepsis, unspecified organism (2) Tracheostomy care Assessment & Plan: Trach site stable. Respiratory as per pulm ICD Codes: Z43.0 - Encounter for attention to tracheostomy SNOMED: 172963155 (3) Feeding by G-tube Assessment & Plan: DAILY ESTIMATED NEEDS: Needs based on Wound, pulmonary 59.8kg 30-35 kcals/kg 0725-7234 total kcals 1.25-1.5 g protein/kg 75-90 g total protein 25-30ml/kcal mL/kg 9400-8716 total fluid mLs NUTRITION DIAGNOSIS: * Swallowing difficulty R/T respiratory status, dysphagia as evidenced by pt is vent dep via T-collar + PEG dep, NPO at this time * Increased kcal/prot needs R/T wound healing as evidenced by pt admitted w/ full thickness pressure sacral injury, with multiple other wounds, eval pending. (CURRENT TF: NPO) ENTERAL NUTRITION RECOMMENDATIONS: Jevity 1.2 @ 70ml/hr x 22 hrs + Prosource 1pkt QD to provide 1540ml, 1848 kcal, 85g pro, 1243 - As medically able, rec Jevity 1.2, start @30ml/hr for 6 hrs. Advance as tolerated 10ml/hr q4-6 hrs to goal - HOLD TF 1 hr before and after synthroid meds - HOB >30 degrees/ water flushes per MD - TF @ goal provides 100% of RDI. ADDITIONAL RECOMMENDATIONS: 1) Calibrated bedscale wts (EMR wt: 160 lbs vs Bed wt: 131.6lbs) 2) Rec water flushes, 120ml q6 hrs 3) Monitor BGs closely, need for hypoglycemic agents or TF change 4) Wound healing: Vit C 250mg BID Add Tommie 1pkt in 4oz H2O BID 5) F/up w/ H&P and WC eval . ICD Codes: Z93.1 - Gastrostomy status SNOMED: 762268044, 316426323 (4) Decubitus skin ulcer Assessment & Plan: Pt presented on admission with multiple pressure injuries. Skin assessed under trach collar and no evidence of skin breakdown noted. Unstageable pressure injury noted to sacrum(L)1.5cm x (W)2cm. Base of wound has 75% slough,25%pink granulation. Borders are macerated with surrounding non- blanching erythema. R heel Maroon,fluctuant in center with surrounding dry black borders(L)5.5cm x (W)9cm. Reabsorbed DTPI noted to L heel. Base of wound is Black and dry. Surrounding dry peeling skin without erythema.(L)5.5cm x (W)8.5cm. Inferior but in close proximity to Medial L malleolus necrotic area over bony prominence noted. Base of wound is dry without fluctuance. Periwound without discoloration.(L)1.5cm x (W)1cm. Non-Blanching erythema noted to L 1st metatarsal head and lateral aspect. No elevation in skin temp noted. Tx.Plan: Cleanse Sacral wound with Saline. Apply TheraHoney . Apply Moisture Barrier paste periwound. Cover with Optifoam drsg. Change every 3 days and prn. Apply Betadine to R heel. Cover with Optifoam drsg. Change every 3 days and prn. Apply Betadine to L Heel and Medial L foot. Cover with Optifoam drsg. Change every 3 days and prn. Apply Cavilon Skin Barrier to L 1st metatarsal head and lateral aspect Daily and prn. APM/MARCOS Mattress overlay. Reposition at least every 2hours or as tolerated. Off-load heels with pillow. Place pillow between knees. ICD Codes: L89.90 - Pressure ulcer of unspecified site, unspecified stage SNOMED: 880927235 Livan Dean Aug 06, 2019 20:43
[2019-08-06] MEDS: Pantoprazole Inj IVP SCH (20:49)
[2019-08-06] MEDS: Heparin 5000 units/ml inj SUBQ SCH (20:55)
--- NOTE | 2019-08-06 21:45 | History and Physical Report ---
DATE OF ADMISSION: 08/06/2019 CONSULTANTS: 1. Tono Case M.D. 2. Ricky Slater M.D. 3. Sue Yu M.D. 4. Livan Dean M.D. CHIEF COMPLAINT: Respiratory failure, hypernatremia, pneumonia, sepsis, and decubitus ulcer. BRIEF HISTORY: This is an 84-year-old female from [facility] presented with the above-mentioned diagnosis, seen in the ER, admitted to telemetry for further care. Currently, trach, , sleeping in bed, not talking much. REVIEW OF SYSTEMS: Unavailable. PAST MEDICAL HISTORY: Includes respiratory failure, decubitus ulcer, renal cyst, chronic obstructive pulmonary disease, CKD, atrial fibrillation, dementia, hypertension, seizure, and acute tubular necrosis. PAST SURGICAL HISTORY: Trach and G-tube. MEDICATIONS: Include levothyroxine, vancomycin, cefepime, pantoprazole, Tylenol, temazepam, clonazepam, trazodone, polyethylene glycol, albuterol, Zofran, and Zosyn. ALLERGIES: Aspirin. SOCIAL HISTORY: Unable to obtain secondary to the patient's condition. OBJECTIVE: GENERAL: Trach, , sleepy in bed, not talking much. VITAL SIGNS: Temperature 99, pulse 97, respirations 19, and blood pressure 121/62. CARDIOVASCULAR: No murmurs. LUNGS: Poor air exchange. ABDOMEN: Bowel sounds distant. EXTREMITIES: Show no cyanosis or edema. NEUROLOGIC: The patient is flaccid in bed, not following directions. LABORATORY AND DIAGNOSTIC DATA: Labs at this time show white count 13, H and H are 10 and 34, and platelets is 217,000. BMP shows sodium 169, chloride 129, BUN and creatinine are 60 and 1.5, and glucose 110. Troponin 0.032. Albumin 3.0. Urinalysis, 3+ blood, 3+ leukocyte esterase. ASSESSMENT: 1. Respiratory failure. 2. Hypernatremia. 3. Urinary tract infection. 4. Pneumonia. 5. Sepsis. 6. Decubitus ulcer. 7. Renal cysts. 8. Chronic obstructive pulmonary disease. 9. CKD. 10. Anemia. 11. Malnutrition. 12. Atrial fibrillation. 13. Dementia. 14. Hypertension. 15. Seizure. PLAN: 1. O2 and pulmonary treatment. 2. Trach care. 3. Antibiotics per Infectious Disease. 4. Blood pressure and blood sugar control. 5. Dietary followup. 6. Wound care. 7. CBC and BMP in the morning. Rl White D.O. DR: ENRRIQUE JOB#: [id number] CC:
--- NOTE | 2019-08-06 23:49 | NUR ---
NURSE NOTES: Patient asleep. Intermittently providing suction as needed. Currently, O2sat 98% with HR 91.
[2019-08-07] VITALS: BP 125/63
[2019-08-07] MEDS: clonazePAM 0.5mg tab GT SCH ×5 (00:04→23:21)
--- NOTE | 2019-08-07 00:58 | NUR ---
NURSE NOTES: Patient temperature reading 100. Provided sponge bath, ice pack, light linen, and lower room temperature. Will continue to monitor. Addendum: 08/07/19 at 0059 by Brook Kirkpatrick RN Patient had smear of BM, pasty and brown. Changed sacral dressing as ordered.
--- NOTE | 2019-08-07 02:00 | NUR ---
NURSE NOTES: Patient temperature reading at 98.2. Will continue to monitor.
[2019-08-07 04:00] VITALS: BP 150/78
[2019-08-07] MEDS: Levothyroxine 125mcg tab GT SCH (06:08)
[2019-08-07 06:10] LABS: BASOPHILS % (AUTO) 0.9 % (0.0-2.0); EOSINOPHILS % (AUTO) 4.4 % (0.0-3.0); HEMATOCRIT 26.9 % (37.0-47.0); LYMPHOCYTES % (AUTO) 20.3 % (20.0-45.0); MEAN CORPUSCULAR VOLUME 91 FL (80-99); MONOCYTES % (AUTO) 4.7 % (1.0-10.0); NEUTROPHILS % (AUTO) 69.6 % (45.0-75.0); PLATELET COUNT 154 K/UL (150-450); RED BLOOD COUNT 2.95 M/UL (4.20-5.40); RED CELL DISTRIBUTION WIDTH 11.9 % (11.6-14.8); WHITE BLOOD COUNT 11.5 K/UL (4.8-10.8)
[2019-08-07] MEDS ORDERED: Levothyroxine 125mcg tab GT SCH ×2 (06:30)
[2019-08-07 06:59] LABS: ALANINE AMINOTRANSFERASE 35 U/L (12-78); ALBUMIN 2.6 G/DL (3.4-5.0); ALBUMIN/GLOBULIN RATIO 0.5 (1.0-2.7); ALKALINE PHOSPHATASE 102 U/L (46-116); ANION GAP 9 mmol/L (5-15); ASPARTATE AMINO TRANSFERASE 25 U/L (15-37); BILIRUBIN,TOTAL 0.4 MG/DL (0.2-1.0); BLOOD UREA NITROGEN 40 mg/dL (7-18); CALCIUM 9.5 MG/DL (8.5-10.1); CARBON DIOXIDE 27 MMOL/L (21-32); CHLORIDE 131 MMOL/L (98-107); CREATININE 1.6 MG/DL (0.55-1.30); FERRITIN 853 NG/ML (8-388); POTASSIUM 3.7 MMOL/L (3.5-5.1)
[2019-08-07] MEDS ORDERED: Miralax 17gm pkt GT PRN (07:00)
[2019-08-07 07:05] LABS: SODIUM 166 MMOL/L (136-145)
--- NOTE | 2019-08-07 07:15 | NUR ---
NURSE NOTES: Report received from Minsu RN. Patient asleep in semi fowlers position in bed. Patient A&O x 0 and non verbal. Side rails padded. Patient does not appear to be in respiratory distress, and does not show signs of pain. Trach in place, cortex size 7, FiO2 28 %, 5 L O2, breathing non labored, no need for suctioning at this time. Purewick catheter in place, connected to wall suctioning, and currently draining clear yellow urine. 20 wild IV noted in right hand, patent, with fluids running at 75 cc / hr. Patient still on NPO diet, will follow up with on advancement of diet. Will continue to follow plan of care.
--- NOTE | 2019-08-07 07:20 | NUR ---
NURSE NOTES: Laboratory called for a critical value for a sodium level of 166. Trending down from level of 169 yesterday. Will continue to monitor and follow plan of care.
[2019-08-07 07:32] LABS: PHOSPHORUS 2.8 MG/DL (2.5-4.9)
--- NOTE | 2019-08-07 07:45 | NUR ---
HAND-OFF: Report given to RONDA Yung and RONDA Hernandez.
--- NOTE | 2019-08-07 07:50 | NUR ---
NURSE NOTES: Received patient in bed, patient is non-verbal and obtuned. HOB elevated. Trach in place, no s/s of pain or discomfort per FLACC pain scale. IV is intact, no s/s of infection. Will continue plan of care.
[2019-08-07 08:00] VITALS: BP 122/54
[2019-08-07 08:42] LABS: % IRON SATURATION 24 % (15-50); IRON 41 ug/dL (50-175); TOTAL IRON BINDING CAPACITY 171 ug/dL (250-450)
[2019-08-07] MEDS: Pantoprazole Inj IVP SCH ×2 (08:55→20:45)
[2019-08-07] MEDS: Ascorbic Acid 500mg tab GT SCH ×2 (08:55→17:36)
[2019-08-07] MEDS: Heparin 5000 units/ml inj SUBQ SCH ×2 (09:11→20:46)
[2019-08-07] MEDS ORDERED: Cefepime HCl 1 GM in D5W 55 ML IV SCH (10:00)
--- NOTE | 2019-08-07 10:10 | General Progress Note ---
Assessment/Plan Problem List: (1) Decubitus skin ulcer ICD Codes: L89.90 - Pressure ulcer of unspecified site, unspecified stage SNOMED: 146770457 (2) Hypernatremia ICD Codes: E87.0 - Hyperosmolality and hypernatremia SNOMED: 71139480 (3) Hypotension ICD Codes: I95.9 - Hypotension, unspecified SNOMED: 82116532 (4) Anemia ICD Codes: D64.9 - Anemia, unspecified SNOMED: 861520397 (5) Seizure disorder ICD Codes: G40.909 - Epilepsy, unspecified, not intractable, without status epilepticus SNOMED: 974666604 (6) Septic shock ICD Codes: A41.9 - Sepsis, unspecified organism; R65.21 - Severe sepsis with septic shock SNOMED: 32846074 (7) HTN (hypertension) ICD Codes: I10 - Essential (primary) hypertension SNOMED: 78036359 (8) Cardiomyopathy ICD Codes: I42.9 - Cardiomyopathy, unspecified SNOMED: 03135073 (9) Sepsis ICD Codes: A41.9 - Sepsis, unspecified organism SNOMED: 37094812 Qualifiers: Qualified Codes: A41.9 - Sepsis, unspecified organism (10) Acute and chronic respiratory failure ICD Codes: J96.20 - Acute and chronic respiratory failure, unspecified whether with hypoxia or hypercapnia SNOMED: 96744045 (11) Tracheostomy care ICD Codes: Z43.0 - Encounter for attention to tracheostomy SNOMED: 575396147 (12) Bowel obstruction ICD Codes: K56.609 - Unspecified intestinal obstruction, unspecified as to partial versus complete obstruction SNOMED: 16221742 (13) Feeding by G-tube ICD Codes: Z93.1 - Gastrostomy status SNOMED: 341023387, 274664628 (14) Malfunction of gastrostomy tube ICD Codes: K94.23 - Gastrostomy malfunction SNOMED: 975791222 (15) Chronic respiratory failure ICD Codes: J96.10 - Chronic respiratory failure, unspecified whether with hypoxia or hypercapnia SNOMED: 48463669 Qualifiers: Qualified Codes: J96.10 - Chronic respiratory failure, unspecified whether with hypoxia or hypercapnia (16) Chronic vegetative state ICD Codes: R40.3 - Persistent vegetative state SNOMED: 02167950 (17) Nosocomial pneumonia ICD Codes: J18.9 - Pneumonia, unspecified organism SNOMED: 743568711 (18) Fecal impaction ICD Codes: K56.41 - Fecal impaction SNOMED: 34629556 (19) ATN (acute tubular necrosis) ICD Codes: N17.0 - Acute kidney failure with tubular necrosis SNOMED: 87735255 (20) Ileus ICD Codes: K56.7 - Ileus, unspecified SNOMED: 906023164 (21) Acute on chronic renal failure ICD Codes: N17.9 - Acute kidney failure, unspecified; N18.9 - Chronic kidney disease, unspecified SNOMED: 165005595 (22) UTI (urinary tract infection) ICD Codes: N39.0 - Urinary tract infection, site not specified SNOMED: 33224208 Status: unchanged Assessment/Plan: o2 pulm tx trach care abx diet cbc bmp am Subjective Constitutional: Reports: weakness Allergies: Coded Allergies: ASPIRIN (Verified Allergy, Unknown, 07/07/17) All Systems: reviewed and negative except above Subjective trach aerosol calm Objective Last 24 Hour Vital Signs Date Time Temp Pulse Resp B/P (MAP) Pulse Ox O2 Delivery O2 Flow Rate FiO2 08/07/19 08:06 94 Cool Aerosol 5.0 28 08/07/19 08:00 98.2 92 20 122/54 (76) 97 08/07/19 08:00 5.0 28 08/07/19 04:00 5.0 28 08/07/19 04:00 99.1 84 20 150/78 (102) 94 08/07/19 01:22 95 Cool Aerosol 5.0 28 08/07/19 00:00 100.0 95 20 125/63 (83) 95 08/06/19 21:00 Trach Collar 5.0 08/06/19 21:00 100 20 118/62 (80) 99 08/06/19 20:07 97 Cool Aerosol 5.0 28 08/06/19 20:00 98.6 103 20 100/52 (68) 100 08/06/19 20:00 5.0 28 08/06/19 16:00 97.8 95 18 121/69 (86) 98 08/06/19 16:00 5.0 28 08/06/19 13:26 97 Cool Aerosol 5.0 28 08/06/19 12:34 99.1 97 19 121/62 (81) 99 08/06/19 12:00 97 08/06/19 12:00 5.0 28 Intake and Output 08/06/19 08/07/19 18:59 06:59 Intake Total 100 ml 750 ml Output Total 300 ml Balance 100 ml 450 ml Intake Oral 100 ml IV Total 750 ml Output Urine Total 300 ml # Bowel Movements 1 1 Laboratory Tests 08/07/19 05:25: White Blood Count 11.5H, Red Blood Count 2.95L, Hemoglobin 9.0L, Hematocrit 26.9L, Mean Corpuscular Volume 91, Mean Corpuscular Hemoglobin 30.4, Mean Corpuscular Hemoglobin Concent 33.3, Red Cell Distribution Width 11.9, Platelet Count 154, Mean Platelet Volume 7.4, Neutrophils (%) (Auto) 69.6, Lymphocytes (% ) (Auto) 20.3, Monocytes (%) (Auto) 4.7, Eosinophils (%) (Auto) 4.4H, Basophils (%) (Auto) 0.9, Sodium Level 166*H, Potassium Level 3.7, Chloride Level 131H, Carbon Dioxide Level 27, Anion Gap 9, Blood Urea Nitrogen 40H, Creatinine 1.6H, Estimat Glomerular Filtration Rate , Glucose Level 106, Uric Acid 6.5, Calcium Level 9.5, Phosphorus Level 2.8, Magnesium Level 2.6H, Iron Level 41L, Total Iron Binding Capacity 171L, Percent Iron Saturation 24, Unsaturated Iron Binding 130, Ferritin 853H, Total Bilirubin 0.4, Aspartate Amino Transf (AST/ SGOT) 25, Alanine Aminotransferase (ALT/SGPT) 35, Alkaline Phosphatase 102, C- Reactive Protein, Quantitative 6.2H, Pro-B-Type Natriuretic Peptide 655H, Total Protein 8.3H, Albumin 2.6L, Globulin 5.7, Albumin/Globulin Ratio 0.5L, Vitamin B12 Level 1407H, Folate 24.7, Thyroid Stimulating Hormone (TSH) 0.014L, Free Thyroxine 1.55H, Free Triiodothyronine 2.5, Random Vancomycin Level 14.6 Height (Feet): 5 Height (Inches): 8.00 Weight (Pounds): 126 General Appearance: lethargic EENT: normal ENT inspection Neck: normal alignment Cardiovascular: normal peripheral pulses, normal rate, regular rhythm Respiratory/Chest: chest wall non-tender, lungs clear, no respiratory distress Abdomen: normal bowel sounds, non tender, soft Extremities: normal inspection Edema: no edema noted Arm (L), no edema noted Arm (R), no edema noted Leg (L), no edema noted Leg (R), no edema noted Pedal (L), no edema noted Pedal (R), no edema noted Generalized Neurologic: motor weakness Skin: normal pigmentation, warm/dry Rl White DO Aug 07, 2019 10:10
[2019-08-07] MEDS: Cefepime HCl 1 GM in D5W 55 ML IV SCH (10:38)
--- NOTE | 2019-08-07 10:42 | Diagnostic Imaging Report ---
Indication: Dyspnea Technique: One view of the chest Comparison: 08/06/2019 Findings: Allowing for differences in exposure technique, probably unchanged bilateral diffuse interstitial and airspace disease, right greater than left. Atelectatic changes at the left lung base are again noted. The heart size is normal. Tracheostomy remains Impression: Unchanged, over one day, findings as above.
--- NOTE | 2019-08-07 11:55 | Nephrology Progress Note ---
Assessment/Plan Problem List: (1) Dehydration (2) Hypernatremia (3) Anemia (4) Seizure disorder (5) UTI (urinary tract infection) (6) Hypothyroidism Assessment Renal failure mainly prerenal dehydration / Hypernatremia free water deficit Anemia PEG UTI / Pneumonia HypoThyroidism Plan D5W IV Smith blood sugar check monitor renal parameters Subjective ROS Limited/Unobtainable: No Constitutional: Reports: malaise, weakness Objective Objective Last 24 Hour Vital Signs Date Time Temp Pulse Resp B/P (MAP) Pulse Ox O2 Delivery O2 Flow Rate FiO2 08/07/19 09:00 Trach Collar 5.0 08/07/19 08:06 94 Cool Aerosol 5.0 28 08/07/19 08:00 98.2 92 20 122/54 (76) 97 08/07/19 08:00 5.0 28 08/07/19 04:00 5.0 28 08/07/19 04:00 99.1 84 20 150/78 (102) 94 08/07/19 01:22 95 Cool Aerosol 5.0 28 08/07/19 00:00 100.0 95 20 125/63 (83) 95 08/06/19 21:00 Trach Collar 5.0 08/06/19 21:00 100 20 118/62 (80) 99 08/06/19 20:07 97 Cool Aerosol 5.0 28 08/06/19 20:00 98.6 103 20 100/52 (68) 100 08/06/19 20:00 5.0 28 08/06/19 16:00 97.8 95 18 121/69 (86) 98 08/06/19 16:00 5.0 28 08/06/19 13:26 97 Cool Aerosol 5.0 28 08/06/19 12:34 99.1 97 19 121/62 (81) 99 08/06/19 12:00 97 08/06/19 12:00 5.0 28 Intake and Output 08/06/19 08/07/19 18:59 06:59 Intake Total 100 ml 750 ml Output Total 300 ml Balance 100 ml 450 ml Intake Oral 100 ml IV Total 750 ml Output Urine Total 300 ml # Bowel Movements 1 1 Laboratory Tests 08/07/19 05:25: White Blood Count 11.5H, Red Blood Count 2.95L, Hemoglobin 9.0L, Hematocrit 26.9L, Mean Corpuscular Volume 91, Mean Corpuscular Hemoglobin 30.4, Mean Corpuscular Hemoglobin Concent 33.3, Red Cell Distribution Width 11.9, Platelet Count 154, Mean Platelet Volume 7.4, Neutrophils (%) (Auto) 69.6, Lymphocytes (% ) (Auto) 20.3, Monocytes (%) (Auto) 4.7, Eosinophils (%) (Auto) 4.4H, Basophils (%) (Auto) 0.9, Sodium Level 166*H, Potassium Level 3.7, Chloride Level 131H, Carbon Dioxide Level 27, Anion Gap 9, Blood Urea Nitrogen 40H, Creatinine 1.6H, Estimat Glomerular Filtration Rate , Glucose Level 106, Uric Acid 6.5, Calcium Level 9.5, Phosphorus Level 2.8, Magnesium Level 2.6H, Iron Level 41L, Total Iron Binding Capacity 171L, Percent Iron Saturation 24, Unsaturated Iron Binding 130, Ferritin 853H, Total Bilirubin 0.4, Aspartate Amino Transf (AST/ SGOT) 25, Alanine Aminotransferase (ALT/SGPT) 35, Alkaline Phosphatase 102, C- Reactive Protein, Quantitative 6.2H, Pro-B-Type Natriuretic Peptide 655H, Total Protein 8.3H, Albumin 2.6L, Globulin 5.7, Albumin/Globulin Ratio 0.5L, Vitamin B12 Level 1407H, Folate 24.7, Thyroid Stimulating Hormone (TSH) 0.014L, Free Thyroxine 1.55H, Free Triiodothyronine 2.5, Random Vancomycin Level 14.6 Height (Feet): 5 Height (Inches): 8.00 Weight (Pounds): 126 General Appearance: no apparent distress Cardiovascular: tachycardia Respiratory/Chest: decreased breath sounds Abdomen: soft Tono Case MD Aug 07, 2019 11:55
--- NOTE | 2019-08-07 11:57 | Infectious Diseases Prog Note ---
Assessment/Plan Assessment/Plan Assessment: Sepsis Probable UTI -u/a wbc tnct; ucx >100k GNR -BCx NTD Probable PNA -08/07 CXR: probably unchanged bilateral diffuse interstitial and airspace disease, right greater than left. Atelectatic changes at the left lung base are again noted. -CXR: Bilateral interstitial disease, may be on the basis of pulmonary edema or may reflect inflammatory changes. This is similar to the previous study of 01/02/2019, 70 may also be a chronic component -influenza sc neg Leukocytosis; improving Low grade fever Hypernatremia JAMES hx of PNA -12/2018 sp cx PsA -10/2017 MDR PSA, H. flu hx of septic shock with MDRO hx of MDR ABC VAP 2016 hx of b/l pneumothorax 12/2018 HTN seizure disorder Dementia CVA/TIA quadriplegia chronic resp failure s/p trac/vent dependant dysphagia s/p PEG COPD SNF resident Plan: -Continue empiric IV Vancomycin and Cefepime #2 -08/06 SP Zosyn x1 -f/u cx -Monitor CBC/CMP, temperatures -peg/trach care -aspiration precautions Thank you for this consultation. Will continue to follow along with you. Discussed with RN Subjective Allergies: Coded Allergies: ASPIRIN (Verified Allergy, Unknown, 07/07/17) Subjective Tm 100 wbc improving Objective Vital Signs Last 24 Hour Vital Signs Date Time Temp Pulse Resp B/P (MAP) Pulse Ox O2 Delivery O2 Flow Rate FiO2 08/07/19 09:00 Trach Collar 5.0 08/07/19 08:06 94 Cool Aerosol 5.0 28 08/07/19 08:00 98.2 92 20 122/54 (76) 97 08/07/19 08:00 5.0 28 08/07/19 04:00 5.0 28 08/07/19 04:00 99.1 84 20 150/78 (102) 94 08/07/19 01:22 95 Cool Aerosol 5.0 28 08/07/19 00:00 100.0 95 20 125/63 (83) 95 08/06/19 21:00 Trach Collar 5.0 08/06/19 21:00 100 20 118/62 (80) 99 08/06/19 20:07 97 Cool Aerosol 5.0 28 08/06/19 20:00 98.6 103 20 100/52 (68) 100 08/06/19 20:00 5.0 28 08/06/19 16:00 97.8 95 18 121/69 (86) 98 08/06/19 16:00 5.0 28 08/06/19 13:26 97 Cool Aerosol 5.0 28 08/06/19 12:34 99.1 97 19 121/62 (81) 99 08/06/19 12:00 97 08/06/19 12:00 5.0 28 Height (Feet): 5 Height (Inches): 8.00 Weight (Pounds): 126 Objective General Appearance: cachetic, thin Lines, tubes and drains: peripheral HEENT: normocephalic, atraumatic Neck: non-tender, supple Respiratory/Chest: chest wall non-tender Cardiovascular/Chest: normal peripheral pulses, normal rate Abdomen: normal bowel sounds, non tender Genitourinary/Rectal: normal genital exam Extremities: normal range of motion Skin Exam: normal pigmentation Microbiology Date/Time Source Procedure Growth Status 08/06/19 00:18 Blood Blood Culture - Preliminary NO GROWTH AFTER 24 HOURS Resulted 08/06/19 00:08 Blood Blood Culture - Preliminary NO GROWTH AFTER 24 HOURS Resulted 08/06/19 01:00 Nasal Nares - Final Complete 08/06/19 01:00 Nasal Nares - Final Complete 08/06/19 00:10 Urine,Clean Catch Urine Culture - Preliminary Gram Negative Bacillus 1 Resulted Laboratory Tests Test 08/07/19 05:25 White Blood Count 11.5 K/UL (4.8-10.8) H Red Blood Count 2.95 M/UL (4.20-5.40) L Hemoglobin 9.0 G/DL (12.0-16.0) L Hematocrit 26.9 % (37.0-47.0) L Mean Corpuscular Volume 91 FL (80-99) Mean Corpuscular Hemoglobin 30.4 PG (27.0-31.0) Mean Corpuscular Hemoglobin Concent 33.3 G/DL (32.0-36.0) Red Cell Distribution Width 11.9 % (11.6-14.8) Platelet Count 154 K/UL (150-450) Mean Platelet Volume 7.4 FL (6.5-10.1) Neutrophils (%) (Auto) 69.6 % (45.0-75.0) Lymphocytes (%) (Auto) 20.3 % (20.0-45.0) Monocytes (%) (Auto) 4.7 % (1.0-10.0) Eosinophils (%) (Auto) 4.4 % (0.0-3.0) H Basophils (%) (Auto) 0.9 % (0.0-2.0) Sodium Level 166 MMOL/L (136-145) *H Potassium Level 3.7 MMOL/L (3.5-5.1) Chloride Level 131 MMOL/L (98-107) H Carbon Dioxide Level 27 MMOL/L (21-32) Anion Gap 9 mmol/L (5-15) Blood Urea Nitrogen 40 mg/dL (7-18) H Creatinine 1.6 MG/DL (0.55-1.30) H Estimat Glomerular Filtration Rate mL/min (>60) Glucose Level 106 MG/DL (74-106) Uric Acid 6.5 MG/DL (2.6-7.2) Calcium Level 9.5 MG/DL (8.5-10.1) Phosphorus Level 2.8 MG/DL (2.5-4.9) Magnesium Level 2.6 MG/DL (1.8-2.4) H Iron Level 41 ug/dL (50-175) L Total Iron Binding Capacity 171 ug/dL (250-450) L Percent Iron Saturation 24 % (15-50) Unsaturated Iron Binding 130 ug/dL (112-346) Ferritin 853 NG/ML (8-388) H Total Bilirubin 0.4 MG/DL (0.2-1.0) Aspartate Amino Transf (AST/SGOT) 25 U/L (15-37) Alanine Aminotransferase (ALT/SGPT) 35 U/L (12-78) Alkaline Phosphatase 102 U/L (46-116) C-Reactive Protein, Quantitative 6.2 mg/dL (0.00-0.90) H Pro-B-Type Natriuretic Peptide 655 pg/mL (0-125) H Total Protein 8.3 G/DL (6.4-8.2) H Albumin 2.6 G/DL (3.4-5.0) L Globulin 5.7 g/dL Albumin/Globulin Ratio 0.5 (1.0-2.7) L Vitamin B12 Level 1407 PG/ML (193-986) H Folate 24.7 NG/ML (8.6-58.9) Thyroid Stimulating Hormone (TSH) 0.014 uiU/mL (0.358-3.740) Free Thyroxine 1.55 NG/DL (0.76-1.46) H Free Triiodothyronine 2.5 pg/mL (2.3-4.2) Random Vancomycin Level 14.6 ug/mL Current Medications Medications (Trade) Dose Ordered Sig/Torsten Route PRN Reason Start Time Stop Time Status Last Admin Dose Admin Acetaminophen (Tylenol) 650 mg Q4H PRN GT fever (temp>100.5F) 08/06/19 20:00 09/05/19 19:59 Acetaminophen (Tylenol) 650 mg Q4H PRN GT headache, mild pain 08/06/19 20:00 09/05/19 19:59 Albuterol/ Ipratropium (Albuterol/ Ipratropium) 3 ml Q4H PRN HHN Shortness of Breath 08/06/19 20:00 08/11/19 19:59 Ascorbic Acid (Vitamin C) 250 mg TWICE A DAY GT 08/07/19 09:00 09/06/19 08:59 08/07/19 08:55 Cefepime HCl 1 gm/ Dextrose 55 ml @ 110 mls/hr Q24H IV 08/07/19 10:00 08/13/19 09:59 08/07/19 10:38 Clonazepam (KlonoPIN) 0.5 mg Q6HR GT 08/07/19 00:00 08/13/19 07:01 08/07/19 06:08 Dextrose 1,000 ml @ 100 mls/hr Q10H IV 08/07/19 09:00 09/05/19 08:59 08/07/19 08:49 Heparin Sodium (Porcine) (Heparin 5000 units/ml) 5,000 units EVERY 12 HOURS SUBQ 08/06/19 21:00 09/05/19 08:59 08/07/19 09:11 Levothyroxine Sodium (Synthroid) 125 mcg Q24H GT 08/07/19 06:30 09/06/19 06:29 08/07/19 06:08 Nitroglycerin (Ntg) 0.4 mg Q5M PRN SL Prn Chest Pain 08/06/19 19:00 09/05/19 06:59 Ondansetron HCl (Zofran) 4 mg Q6H PRN IVP Nausea & Vomiting 08/06/19 19:00 09/05/19 06:59 Pantoprazole (Protonix) 40 mg EVERY 12 HOURS IVP 08/06/19 21:00 09/05/19 10:59 08/07/19 08:55 Polyethylene Glycol (Miralax) 17 gm DAILYPRN PRN GT Constipation 08/06/19 20:00 09/05/19 19:59 Promethazine HCl/ Codeine (Phenergan with Codeine) 5 ml Q4H PRN GT For Cough 08/06/19 19:00 09/05/19 06:59 Temazepam (Restoril) 15 mg HSPRN PRN GT Insomnia 08/06/19 21:00 08/13/19 20:59 Trazodone HCl (Desyrel) 50 mg BEDTIME PRN GT insomnia 08/06/19 21:00 09/05/19 06:59 Vancomycin HCl (Vanco rx to dose) 1 ea DAILY PRN MISC Per rx protocol 08/07/19 09:00 09/05/19 18:29 Yane Umana M.D. Aug 07, 2019 11:57
[2019-08-07 12:00] VITALS: BP 123/59
--- NOTE | 2019-08-07 12:25 | Pulmonology Progress Note ---
Assessment/Plan Problems: (1) Nosocomial pneumonia (2) Acute on chronic renal failure (3) Chronic respiratory failure (4) Tracheostomy care (5) Cardiomyopathy (6) Seizure disorder (7) Feeding by G-tube (8) Chronic vegetative state Assessment/Plan check cultures iv abx Na is still high, increase D5w to 150 cc/hour\ continue gtube feeding tracheostomy care dvt prophylaxis all meds reviewed. Subjective ROS Limited/Unobtainable: Yes Allergies: Coded Allergies: ASPIRIN (Verified Allergy, Unknown, 07/07/17) Objective Last 24 Hour Vital Signs Date Time Temp Pulse Resp B/P (MAP) Pulse Ox O2 Delivery O2 Flow Rate FiO2 08/07/19 09:00 Trach Collar 5.0 08/07/19 08:06 94 Cool Aerosol 5.0 28 08/07/19 08:00 98.2 92 20 122/54 (76) 97 08/07/19 08:00 5.0 28 08/07/19 04:00 5.0 28 08/07/19 04:00 99.1 84 20 150/78 (102) 94 08/07/19 01:22 95 Cool Aerosol 5.0 28 08/07/19 00:00 100.0 95 20 125/63 (83) 95 08/06/19 21:00 Trach Collar 5.0 08/06/19 21:00 100 20 118/62 (80) 99 08/06/19 20:07 97 Cool Aerosol 5.0 28 08/06/19 20:00 98.6 103 20 100/52 (68) 100 08/06/19 20:00 5.0 28 08/06/19 16:00 97.8 95 18 121/69 (86) 98 08/06/19 16:00 5.0 28 08/06/19 13:26 97 Cool Aerosol 5.0 28 08/06/19 12:34 99.1 97 19 121/62 (81) 99 Intake and Output 08/06/19 08/07/19 18:59 06:59 Intake Total 100 ml 750 ml Output Total 300 ml Balance 100 ml 450 ml Intake Oral 100 ml IV Total 750 ml Output Urine Total 300 ml # Bowel Movements 1 1 General Appearance: cachetic HEENT: normocephalic, atraumatic, anicteric Respiratory/Chest: chest wall non-tender Breasts: no masses Cardiovascular: normal peripheral pulses Abdomen: normal bowel sounds, soft, non tender Genitourinary: normal external genitalia Extremities: no cyanosis 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 Lymphatic: no neck adenopathy Microbiology Date/Time Source Procedure Growth Status 08/06/19 00:18 Blood Blood Culture - Preliminary NO GROWTH AFTER 24 HOURS Resulted 08/06/19 00:08 Blood Blood Culture - Preliminary NO GROWTH AFTER 24 HOURS Resulted 08/06/19 01:00 Nasal Nares - Final Complete 08/06/19 01:00 Nasal Nares - Final Complete 08/06/19 00:10 Urine,Clean Catch Urine Culture - Preliminary Gram Negative Bacillus 1 Resulted Laboratory Tests 08/07/19 05:25: White Blood Count 11.5H, Red Blood Count 2.95L, Hemoglobin 9.0L, Hematocrit 26.9L, Mean Corpuscular Volume 91, Mean Corpuscular Hemoglobin 30.4, Mean Corpuscular Hemoglobin Concent 33.3, Red Cell Distribution Width 11.9, Platelet Count 154, Mean Platelet Volume 7.4, Neutrophils (%) (Auto) 69.6, Lymphocytes (% ) (Auto) 20.3, Monocytes (%) (Auto) 4.7, Eosinophils (%) (Auto) 4.4H, Basophils (%) (Auto) 0.9, Sodium Level 166*H, Potassium Level 3.7, Chloride Level 131H, Carbon Dioxide Level 27, Anion Gap 9, Blood Urea Nitrogen 40H, Creatinine 1.6H, Estimat Glomerular Filtration Rate , Glucose Level 106, Uric Acid 6.5, Calcium Level 9.5, Phosphorus Level 2.8, Magnesium Level 2.6H, Iron Level 41L, Total Iron Binding Capacity 171L, Percent Iron Saturation 24, Unsaturated Iron Binding 130, Ferritin 853H, Total Bilirubin 0.4, Aspartate Amino Transf (AST/ SGOT) 25, Alanine Aminotransferase (ALT/SGPT) 35, Alkaline Phosphatase 102, C- Reactive Protein, Quantitative 6.2H, Pro-B-Type Natriuretic Peptide 655H, Total Protein 8.3H, Albumin 2.6L, Globulin 5.7, Albumin/Globulin Ratio 0.5L, Vitamin B12 Level 1407H, Folate 24.7, Thyroid Stimulating Hormone (TSH) 0.014L, Free Thyroxine 1.55H, Free Triiodothyronine 2.5, Random Vancomycin Level 14.6 Current Medications Medications (Trade) Dose Ordered Sig/Torsten Route PRN Reason Start Time Stop Time Status Last Admin Dose Admin Acetaminophen (Tylenol) 650 mg Q4H PRN GT fever (temp>100.5F) 08/06/19 20:00 09/05/19 19:59 Acetaminophen (Tylenol) 650 mg Q4H PRN GT headache, mild pain 08/06/19 20:00 09/05/19 19:59 Albuterol/ Ipratropium (Albuterol/ Ipratropium) 3 ml Q4H PRN HHN Shortness of Breath 08/06/19 20:00 08/11/19 19:59 Ascorbic Acid (Vitamin C) 250 mg TWICE A DAY GT 08/07/19 09:00 09/06/19 08:59 08/07/19 08:55 Cefepime HCl 1 gm/ Dextrose 55 ml @ 110 mls/hr Q24H IV 08/07/19 10:00 08/13/19 09:59 08/07/19 10:38 Clonazepam (KlonoPIN) 0.5 mg Q6HR GT 08/07/19 00:00 08/13/19 07:01 08/07/19 06:08 Dextrose 1,000 ml @ 100 mls/hr Q10H IV 08/07/19 09:00 09/05/19 08:59 08/07/19 08:49 Heparin Sodium (Porcine) (Heparin 5000 units/ml) 5,000 units EVERY 12 HOURS SUBQ 08/06/19 21:00 09/05/19 08:59 08/07/19 09:11 Levothyroxine Sodium (Synthroid) 125 mcg Q24H GT 08/07/19 06:30 09/06/19 06:29 08/07/19 06:08 Nitroglycerin (Ntg) 0.4 mg Q5M PRN SL Prn Chest Pain 08/06/19 19:00 09/05/19 06:59 Ondansetron HCl (Zofran) 4 mg Q6H PRN IVP Nausea & Vomiting 08/06/19 19:00 09/05/19 06:59 Pantoprazole (Protonix) 40 mg EVERY 12 HOURS IVP 08/06/19 21:00 09/05/19 10:59 08/07/19 08:55 Polyethylene Glycol (Miralax) 17 gm DAILYPRN PRN GT Constipation 08/06/19 20:00 09/05/19 19:59 Promethazine HCl/ Codeine (Phenergan with Codeine) 5 ml Q4H PRN GT For Cough 08/06/19 19:00 09/05/19 06:59 Temazepam (Restoril) 15 mg HSPRN PRN GT Insomnia 08/06/19 21:00 08/13/19 20:59 Trazodone HCl (Desyrel) 50 mg BEDTIME PRN GT insomnia 08/06/19 21:00 09/05/19 06:59 Vancomycin HCl (Vanco rx to dose) 1 ea DAILY PRN MISC Per rx protocol 08/07/19 09:00 09/05/19 18:29 Sue Yu MD Aug 07, 2019 12:25
[2019-08-07 16:00] VITALS: BP 133/60
--- NOTE | 2019-08-07 16:04 | NUR ---
*-* INSURANCE *-* ALL AVAILABLE CLINICALS HAVE BEEN FAXED: [facility] TRK# [id number] F: [phone]
--- NOTE | 2019-08-07 17:03 | Surgery Progress Note ---
Surgery Progress Note Subjective Additional Comments No acute events. Sodium remains high. Leukocytosis trending down. Anemia. Exam otherwise stable. Still somewhat ill-appearing. Objective Last 24 Hour Vital Signs Date Time Temp Pulse Resp B/P (MAP) Pulse Ox O2 Delivery O2 Flow Rate FiO2 08/07/19 13:27 95 Cool Aerosol 5.0 28 08/07/19 12:00 97.7 82 20 123/59 (80) 97 08/07/19 12:00 5.0 28 08/07/19 09:00 Trach Collar 5.0 08/07/19 08:06 94 Cool Aerosol 5.0 28 08/07/19 08:00 98.2 92 20 122/54 (76) 97 08/07/19 08:00 5.0 28 08/07/19 04:00 5.0 28 08/07/19 04:00 99.1 84 20 150/78 (102) 94 08/07/19 01:22 95 Cool Aerosol 5.0 28 08/07/19 00:00 100.0 95 20 125/63 (83) 95 08/06/19 21:00 Trach Collar 5.0 08/06/19 21:00 100 20 118/62 (80) 99 08/06/19 20:07 97 Cool Aerosol 5.0 28 08/06/19 20:00 98.6 103 20 100/52 (68) 100 08/06/19 20:00 5.0 28 I&O Intake and Output 08/06/19 08/07/19 19:00 07:00 Intake Total 100 ml 750 ml Output Total 300 ml Balance 100 ml 450 ml Intake Oral 100 ml IV Total 750 ml Output Urine Total 300 ml # Bowel Movements 1 1 Dressing: other Wound: other Drains: other Cardiovascular: RSR Respiratory: decreased breath sounds Abdomen: soft, present bowel sounds, non-distended Extremities: no cyanosis, other Laboratory Tests Test 08/07/19 05:25 White Blood Count 11.5 K/UL (4.8-10.8) H Red Blood Count 2.95 M/UL (4.20-5.40) L Hemoglobin 9.0 G/DL (12.0-16.0) L Hematocrit 26.9 % (37.0-47.0) L Mean Corpuscular Volume 91 FL (80-99) Mean Corpuscular Hemoglobin 30.4 PG (27.0-31.0) Mean Corpuscular Hemoglobin Concent 33.3 G/DL (32.0-36.0) Red Cell Distribution Width 11.9 % (11.6-14.8) Platelet Count 154 K/UL (150-450) Mean Platelet Volume 7.4 FL (6.5-10.1) Neutrophils (%) (Auto) 69.6 % (45.0-75.0) Lymphocytes (%) (Auto) 20.3 % (20.0-45.0) Monocytes (%) (Auto) 4.7 % (1.0-10.0) Eosinophils (%) (Auto) 4.4 % (0.0-3.0) H Basophils (%) (Auto) 0.9 % (0.0-2.0) Sodium Level 166 MMOL/L (136-145) *H Potassium Level 3.7 MMOL/L (3.5-5.1) Chloride Level 131 MMOL/L (98-107) H Carbon Dioxide Level 27 MMOL/L (21-32) Anion Gap 9 mmol/L (5-15) Blood Urea Nitrogen 40 mg/dL (7-18) H Creatinine 1.6 MG/DL (0.55-1.30) H Estimat Glomerular Filtration Rate mL/min (>60) Glucose Level 106 MG/DL (74-106) Uric Acid 6.5 MG/DL (2.6-7.2) Calcium Level 9.5 MG/DL (8.5-10.1) Phosphorus Level 2.8 MG/DL (2.5-4.9) Magnesium Level 2.6 MG/DL (1.8-2.4) H Iron Level 41 ug/dL (50-175) L Total Iron Binding Capacity 171 ug/dL (250-450) L Percent Iron Saturation 24 % (15-50) Unsaturated Iron Binding 130 ug/dL (112-346) Ferritin 853 NG/ML (8-388) H Total Bilirubin 0.4 MG/DL (0.2-1.0) Aspartate Amino Transf (AST/SGOT) 25 U/L (15-37) Alanine Aminotransferase (ALT/SGPT) 35 U/L (12-78) Alkaline Phosphatase 102 U/L (46-116) C-Reactive Protein, Quantitative 6.2 mg/dL (0.00-0.90) H Pro-B-Type Natriuretic Peptide 655 pg/mL (0-125) H Total Protein 8.3 G/DL (6.4-8.2) H Albumin 2.6 G/DL (3.4-5.0) L Globulin 5.7 g/dL Albumin/Globulin Ratio 0.5 (1.0-2.7) L Vitamin B12 Level 1407 PG/ML (193-986) H Folate 24.7 NG/ML (8.6-58.9) Thyroid Stimulating Hormone (TSH) 0.014 uiU/mL (0.358-3.740) Free Thyroxine 1.55 NG/DL (0.76-1.46) H Free Triiodothyronine 2.5 pg/mL (2.3-4.2) Random Vancomycin Level 14.6 ug/mL Plan Problems: (1) Sepsis Assessment & Plan: 84-year-old very unfortunate female with multiple medical comorbidities who has leukocytosis, lactic acidosis, likely UTI. Presents with multiple wounds and unstageable decubitus ulcers. Wound evaluated at bedside and unlikely the etiology of patient's sepsis. Leukocytosis lactic sepsis likely due to UTI. Patient currently on IV antibiotics as per infectious disease. Lactic acidosis improving. Exam as above. Care management as presented below. We will continue to follow recommendations. Thank you Willett participate in patient's care (2) Tracheostomy care Assessment & Plan: Trach site stable. Respiratory as per pulm (3) Feeding by G-tube Assessment & Plan: DAILY ESTIMATED NEEDS: Needs based on Wound, pulmonary 59.8kg 30-35 kcals/kg 4342-5566 total kcals 1.25-1.5 g protein/kg 75-90 g total protein 25-30ml/kcal mL/kg 9453-0819 total fluid mLs NUTRITION DIAGNOSIS: * Swallowing difficulty R/T respiratory status, dysphagia as evidenced by pt is vent dep via T-collar + PEG dep, NPO at this time * Increased kcal/prot needs R/T wound healing as evidenced by pt admitted w/ full thickness pressure sacral injury, with multiple other wounds, eval pending. (CURRENT TF: NPO) ENTERAL NUTRITION RECOMMENDATIONS: Jevity 1.2 @ 70ml/hr x 22 hrs + Prosource 1pkt QD to provide 1540ml, 1848 kcal, 85g pro, 1243 - As medically able, rec Jevity 1.2, start @30ml/hr for 6 hrs. Advance as tolerated 10ml/hr q4-6 hrs to goal - HOLD TF 1 hr before and after synthroid meds - HOB >30 degrees/ water flushes per MD - TF @ goal provides 100% of RDI. ADDITIONAL RECOMMENDATIONS: 1) Calibrated bedscale wts (EMR wt: 160 lbs vs Bed wt: 131.6lbs) 2) Rec water flushes, 120ml q6 hrs 3) Monitor BGs closely, need for hypoglycemic agents or TF change 4) Wound healing: Vit C 250mg BID Add Tommie 1pkt in 4oz H2O BID 5) F/up w/ H&P and WC eval . (4) Decubitus skin ulcer Assessment & Plan: Pt presented on admission with multiple pressure injuries. Skin assessed under trach collar and no evidence of skin breakdown noted. Unstageable pressure injury noted to sacrum(L)1.5cm x (W)2cm. Base of wound has 75% slough,25%pink granulation. Borders are macerated with surrounding non- blanching erythema. R heel Maroon,fluctuant in center with surrounding dry black borders(L)5.5cm x (W)9cm. Reabsorbed DTPI noted to L heel. Base of wound is Black and dry. Surrounding dry peeling skin without erythema.(L)5.5cm x (W)8.5cm. Inferior but in close proximity to Medial L malleolus necrotic area over bony prominence noted. Base of wound is dry without fluctuance. Periwound without discoloration.(L)1.5cm x (W)1cm. Non-Blanching erythema noted to L 1st metatarsal head and lateral aspect. No elevation in skin temp noted. Tx.Plan: Cleanse Sacral wound with Saline. Apply TheraHoney . Apply Moisture Barrier paste periwound. Cover with Optifoam drsg. Change every 3 days and prn. Apply Betadine to R heel. Cover with Optifoam drsg. Change every 3 days and prn. Apply Betadine to L Heel and Medial L foot. Cover with Optifoam drsg. Change every 3 days and prn. Apply Cavilon Skin Barrier to L 1st metatarsal head and lateral aspect Daily and prn. APM/MARCOS Mattress overlay. Reposition at least every 2hours or as tolerated. Off-load heels with pillow. Place pillow between knees. Livan Dean Aug 07, 2019 17:03
--- NOTE | 2019-08-07 19:43 | NUR ---
HAND-OFF: Report given to
--- NOTE | 2019-08-07 19:44 | NUR ---
NURSE NOTES: Received patient in no apparent distress. A&OX0, non-verbal. IV site patent and intact. Trach in place. G-tube in place, clamped. Bed in lowest position. Call light within reach. Will continue to monitor.
[2019-08-07 20:00] VITALS: BP 146/74
[2019-08-07] MEDS ORDERED: MULTIVITAMINS1 EA14 GT (20:46)
[2019-08-07] MEDS ORDERED: ZINC SULFATE220 M2 GT (20:46)
[2019-08-07] MEDS ORDERED: GLUCAGON EMERGEN1 MG IJ (20:46)
[2019-08-07] MEDS ORDERED: MELATONIN 3 MG1 EAC1 PO (20:46)
[2019-08-07] MEDS ORDERED: ACETAMINOP160 MG/5 M GT (20:46)
[2019-08-07] MEDS ORDERED: CRANBERRY450 M4 GT (20:46)
[2019-08-07] MEDS ORDERED: FAMOTIDINE20 MG GT (20:46)
[2019-08-07] MEDS ORDERED: VITAMIN C500 MG/11 GT (20:46)
[2019-08-07] MEDS ORDERED: PRO-STAT LIQUID30 ML GT (20:46)
[2019-08-08] VITALS: BP 131/70
[2019-08-08 04:00] VITALS: BP 128/61
[2019-08-08] MEDS: clonazePAM 0.5mg tab GT SCH ×3 (06:07→17:07)
[2019-08-08] MEDS: Levothyroxine 125mcg tab GT SCH (06:07)
--- NOTE | 2019-08-08 07:29 | NUR ---
HAND-OFF: Report given to Bess BOND.
--- NOTE | 2019-08-08 07:32 | NUR ---
NURSE NOTES: received patient asleep in semi fowlers position in bed. Patient A&O x 0 and non verbal. Trach in place, cortex size 7, FiO2 28 %, 5 L O2, breathing non labored, no sign of respiratory distress, suctioning done, tolerated well, Purewick catheter in place, connected to wall suctioning, and currently draining clear yellow urine.IV fluids running at 75 cc / hr. Patent, Patient still on NPO diet, Will continue to follow plan of care lion sharif
[2019-08-08 07:58] LABS: BASOPHILS % (AUTO) 0.5 % (0.0-2.0); EOSINOPHILS % (AUTO) 5.2 % (0.0-3.0); HEMATOCRIT 25.9 % (37.0-47.0); HEMOGLOBIN 8.2 G/DL (12.0-16.0); LYMPHOCYTES % (AUTO) 23.6 % (20.0-45.0); MEAN CORPUSCULAR VOLUME 94 FL (80-99); MONOCYTES % (AUTO) 5.9 % (1.0-10.0); NEUTROPHILS % (AUTO) 64.9 % (45.0-75.0); PLATELET COUNT 182 K/UL (150-450); RED BLOOD COUNT 2.77 M/UL (4.20-5.40); WHITE BLOOD COUNT 8.7 K/UL (4.8-10.8)
[2019-08-08 08:00] VITALS: BP 140/83
[2019-08-08 08:36] LABS: ALANINE AMINOTRANSFERASE 33 U/L (12-78); ALBUMIN 2.5 G/DL (3.4-5.0); ALBUMIN/GLOBULIN RATIO 0.5 (1.0-2.7); ALKALINE PHOSPHATASE 99 U/L (46-116); ANION GAP 8 mmol/L (5-15); ASPARTATE AMINO TRANSFERASE 23 U/L (15-37); BILIRUBIN,TOTAL 0.6 MG/DL (0.2-1.0); BLOOD UREA NITROGEN 23 mg/dL (7-18); CALCIUM 9.2 MG/DL (8.5-10.1); CARBON DIOXIDE 27 MMOL/L (21-32); CHLORIDE 116 MMOL/L (98-107); CREATININE 1.3 MG/DL (0.55-1.30); POTASSIUM 3.2 MMOL/L (3.5-5.1); SODIUM 151 MMOL/L (136-145)
--- NOTE | 2019-08-08 09:13 | Nephrology Progress Note ---
Assessment/Plan Problem List: (1) Dehydration Assessment: improving (2) Hypernatremia Assessment: improving (3) Anemia (4) Seizure disorder (5) UTI (urinary tract infection) (6) Hypothyroidism Assessment Renal failure mainly prerenal dehydration / Hypernatremia free water deficit Anemia PEG UTI / Pneumonia HypoThyroidism Plan K supplement D5W IV Smith blood sugar check monitor renal parameters Subjective ROS Limited/Unobtainable: No Constitutional: Reports: malaise, weakness Objective Objective Last 24 Hour Vital Signs Date Time Temp Pulse Resp B/P (MAP) Pulse Ox O2 Delivery O2 Flow Rate FiO2 08/08/19 08:00 100.4 88 22 140/83 (102) 98 08/08/19 07:00 96 Cool Aerosol 5.0 28 08/08/19 04:00 97.8 80 22 128/61 (83) 98 08/08/19 04:00 5.0 28 08/08/19 01:30 95 Cool Aerosol 5.0 28 08/08/19 00:00 98.3 75 22 131/70 (90) 96 08/07/19 22:03 96 Cool Aerosol 5.0 28 08/07/19 21:00 Trach Collar 5.0 08/07/19 20:00 5.0 28 08/07/19 20:00 98.5 109 21 146/74 (98) 98 08/07/19 20:00 96 Cool Aerosol 5.0 28 08/07/19 16:00 98.4 89 20 133/60 (84) 97 08/07/19 16:00 5.0 28 08/07/19 13:27 95 Cool Aerosol 5.0 28 08/07/19 12:00 97.7 82 20 123/59 (80) 97 08/07/19 12:00 5.0 28 Intake and Output 08/07/19 08/08/19 19:00 07:00 Intake Total 1180 ml 1700 ml Output Total 900 ml 550 ml Balance 280 ml 1150 ml Free Water 200 ml IV Total 1180 ml 1500 ml Output Urine Total 900 ml 550 ml # Voids 2 1 # Bowel Movements 1 Current Medications Medications (Trade) Dose Ordered Sig/Torsten Route PRN Reason Start Time Stop Time Status Last Admin Dose Admin Acetaminophen (Tylenol) 650 mg Q4H PRN GT fever (temp>100.5F) 08/06/19 20:00 09/05/19 19:59 Acetaminophen (Tylenol) 650 mg Q4H PRN GT headache, mild pain 08/06/19 20:00 09/05/19 19:59 Albuterol/ Ipratropium (Albuterol/ Ipratropium) 3 ml Q4H PRN HHN Shortness of Breath 08/06/19 20:00 08/11/19 19:59 Ascorbic Acid (Vitamin C) 250 mg TWICE A DAY GT 08/07/19 09:00 09/06/19 08:59 08/07/19 17:36 Cefepime HCl 1 gm/ Dextrose 55 ml @ 110 mls/hr Q24H IV 08/07/19 10:00 08/13/19 09:59 08/07/19 10:38 Clonazepam (KlonoPIN) 0.5 mg Q6HR GT 08/07/19 00:00 08/13/19 07:01 08/08/19 06:07 Dextrose 1,000 ml @ 150 mls/hr Q6H40M IV 08/07/19 12:24 09/06/19 12:23 08/08/19 04:01 Heparin Sodium (Porcine) (Heparin 5000 units/ml) 5,000 units EVERY 12 HOURS SUBQ 08/06/19 21:00 09/05/19 08:59 08/07/19 20:46 Levothyroxine Sodium (Synthroid) 125 mcg Q24H GT 08/07/19 06:30 09/06/19 06:29 08/08/19 06:07 Memantine (Namenda) 5 mg BID ORAL 08/08/19 09:00 09/07/19 08:59 Nitroglycerin (Ntg) 0.4 mg Q5M PRN SL Prn Chest Pain 08/06/19 19:00 09/05/19 06:59 Ondansetron HCl (Zofran) 4 mg Q6H PRN IVP Nausea & Vomiting 08/06/19 19:00 09/05/19 06:59 Pantoprazole (Protonix) 40 mg EVERY 12 HOURS IVP 08/06/19 21:00 09/05/19 10:59 08/07/19 20:45 Polyethylene Glycol (Miralax) 17 gm DAILYPRN PRN GT Constipation 08/06/19 20:00 09/05/19 19:59 Promethazine HCl/ Codeine (Phenergan with Codeine) 5 ml Q4H PRN GT For Cough 08/06/19 19:00 09/05/19 06:59 Temazepam (Restoril) 15 mg HSPRN PRN GT Insomnia 08/06/19 21:00 08/13/19 20:59 Trazodone HCl (Desyrel) 50 mg BEDTIME PRN GT insomnia 08/06/19 21:00 09/05/19 06:59 Vancomycin HCl (Vanco rx to dose) 1 ea DAILY PRN MISC Per rx protocol 08/07/19 09:00 09/05/19 18:29 Laboratory Tests 08/08/19 06:30: White Blood Count 8.7, Red Blood Count 2.77L, Hemoglobin 8.2L, Hematocrit 25.9L , Mean Corpuscular Volume 94, Mean Corpuscular Hemoglobin 29.5, Mean Corpuscular Hemoglobin Concent 31.5L, Red Cell Distribution Width 13.0, Platelet Count 182, Mean Platelet Volume 9.3, Neutrophils (%) (Auto) 64.9, Lymphocytes (%) (Auto) 23.6, Monocytes (%) (Auto) 5.9, Eosinophils (%) (Auto) 5.2H, Basophils (%) (Auto) 0.5, Erythrocyte Sedimentation Rate 132H, Sodium Level 151H, Potassium Level 3.2L, Chloride Level 116H, Carbon Dioxide Level 27, Anion Gap 8, Blood Urea Nitrogen 23H, Creatinine 1.3, Estimat Glomerular Filtration Rate , Glucose Level 114H, Calcium Level 9.2, Phosphorus Level 3.0, Magnesium Level 2.1, Total Bilirubin 0.6, Aspartate Amino Transf (AST/SGOT) 23, Alanine Aminotransferase (ALT/SGPT) 33, Alkaline Phosphatase 99, C-Reactive Protein, Quantitative 4.0H, Total Protein 8.0, Albumin 2.5L, Globulin 5.5, Albumin/Globulin Ratio 0.5L Height (Feet): 5 Height (Inches): 8.00 Weight (Pounds): 126 Neck: limited range of motion Cardiovascular: tachycardia Respiratory/Chest: decreased breath sounds Abdomen: distended, other - PEG Tono Case MD Aug 08, 2019 09:13
[2019-08-08] MEDS: Memantine 5 MG TAB ORAL SCH ×2 (09:22→17:08)
[2019-08-08] MEDS: Ascorbic Acid 500mg tab GT SCH ×2 (09:22→17:08)
[2019-08-08] MEDS: Heparin 5000 units/ml inj SUBQ SCH ×2 (09:23→21:27)
[2019-08-08] MEDS: Pantoprazole Inj IVP SCH ×2 (09:24→21:26)
[2019-08-08] MEDS: Cefepime HCl 1 GM in D5W 55 ML IV SCH (09:25)
--- NOTE | 2019-08-08 10:30 | Consultation ---
DATE OF CONSULTATION: 08/08/2019 CONSULTING PHYSICIAN: Steven Dunlap M.D. HISTORY OF PRESENT ILLNESS: She is an 84-year-old female patient. She is admitted to the hospital with hyponatremia. There was a psychiatric consultation requested for this patient's high levels of anxiety and altered mental status, worsened by stress of her medical illness. That is why her attending physician has requested daily psychiatric consultation. I saw and assessed her at bedside. She is still very confused and disorganized during the interview. She has hypernatremia, respiratory failure, pneumonia, sepsis, and decubitus ulcers. She came in from [facility]. PAST MEDICAL HISTORY: She has history of decubitus status, renal insufficiency, COPD, chronic renal disease, atrial fibrillation, hypertension, seizure disorder, and acute tubular necrosis. ALLERGIES: Aspirin. PSYCHOTROPIC MEDICATIONS ON ADMISSION: She is currently on Klonopin 0.5 mg every 6 hours as needed and Namenda 5 mg p.o. twice a day. SUBSTANCE ABUSE HISTORY: Denies history of drug or alcohol use. FAMILY PSYCHIATRIC HISTORY: No known family psych history. PAIN ASSESSMENT: 0/10 pain. DEVELOPMENTAL PROBLEMS: No known developmental problems. SOCIAL HISTORY: . Financially supported by [employer] and Medicare. She denies any further details about her social history. PSYCHIATRIC HISTORY: History of major depressive disorder, mild, recurrent with psychotic features, rule out dementia with psychosis. MENTAL STATUS EXAMINATION: This is an 84-year-old female patient. Her appearance is disheveled. Attitude is flat. Affect is flat. Intellect is poor because she does not know current events, does not know the last four presidents. Mood, depressed and anxious. Motor activity, psychomotor retardation. Attention span is poor because she cannot do serial sevens or spell world backwards. Orientation x1 to person. Speech is nonverbal. Thought process, disorganized and illogical. Thought content, no auditory hallucinations, some paranoia per chart. Perception is poor because she has perceptual disturbances, paranoid delusions. Abstract reasoning is poor because she cannot understand proverbs and only has concrete thinking. Insight is poor. She does not seem to recognize having a cycle of medical condition. Judgment is poor because she cannot make medical decision on her own. No signs of any suicidal or homicidal thoughts. DIAGNOSES: 1. Major depressive disorder, mild, recurrent with psychotic features, rule out dementia with psychosis. 2. No secondary diagnosis. 3. Medical, history of atrial fibrillation, chronic renal disease, hypertension, seizure disorder, acute tubular necrosis, respiratory failure, and decubitus ulcers. 4. Psychosocial stressors, financial. 5. Functional impairment is mild. PLAN: Treat the patient with Namenda 5 mg per G-tube twice a day. Continue on Klonopin 0.5 mg every 6 hours per G-tube as needed. Provided with 20 minutes of behavioral management. Chart was reviewed and discussed with staff. Steven Dunlap M.D. DR: KAILEE JOB#: [id number] CC:
[2019-08-08 12:09] VITALS: BP 125/72
--- NOTE | 2019-08-08 12:12 | Infectious Diseases Prog Note ---
Assessment/Plan Assessment/Plan Assessment: Sepsis Probable UTI -u/a wbc tnct; ucx >100k P. mirabilis, probable AMP-c -BCx NTD Probable PNA -08/07 CXR: probably unchanged bilateral diffuse interstitial and airspace disease, right greater than left. Atelectatic changes at the left lung base are again noted. -CXR: Bilateral interstitial disease, may be on the basis of pulmonary edema or may reflect inflammatory changes. This is similar to the previous study of 01/02/2019, 70 may also be a chronic component -influenza sc neg Leukocytosis; SP Low grade fever Hypernatremia JAMES hx of PNA -12/2018 sp cx PsA -10/2017 MDR PSA, H. flu hx of septic shock with MDRO hx of MDR ABC VAP 2016 hx of b/l pneumothorax 12/2018 HTN seizure disorder Dementia CVA/TIA quadriplegia chronic resp failure s/p trac/vent dependant dysphagia s/p PEG COPD SNF resident Plan: -Continue empiric IV Vancomycin #3 pending sp cx -Switch Cefepime #3 to Meropenem -08/06 SP Zosyn x1 -f/u cx -Monitor CBC/CMP, temperatures -peg/trach care -aspiration precautions Thank you for this consultation. Will continue to follow along with you. Discussed with RN Subjective Allergies: Coded Allergies: ASPIRIN (Verified Allergy, Unknown, 07/07/17) Subjective Tm 100.4 leukocytosis resolved Objective Vital Signs Last 24 Hour Vital Signs Date Time Temp Pulse Resp B/P (MAP) Pulse Ox O2 Delivery O2 Flow Rate FiO2 08/08/19 09:43 Trach Collar 5.0 08/08/19 08:00 5.0 28 08/08/19 08:00 100.4 88 22 140/83 (102) 98 08/08/19 07:00 96 Cool Aerosol 5.0 28 08/08/19 04:00 97.8 80 22 128/61 (83) 98 08/08/19 04:00 5.0 28 08/08/19 01:30 95 Cool Aerosol 5.0 28 08/08/19 00:00 98.3 75 22 131/70 (90) 96 08/07/19 22:03 96 Cool Aerosol 5.0 28 08/07/19 21:00 Trach Collar 5.0 08/07/19 20:00 5.0 28 08/07/19 20:00 98.5 109 21 146/74 (98) 98 08/07/19 20:00 96 Cool Aerosol 5.0 28 08/07/19 16:00 98.4 89 20 133/60 (84) 97 08/07/19 16:00 5.0 28 08/07/19 13:27 95 Cool Aerosol 5.0 28 Height (Feet): 5 Height (Inches): 8.00 Weight (Pounds): 126 Objective General Appearance: cachetic, thin Lines, tubes and drains: peripheral HEENT: normocephalic, atraumatic Neck: non-tender, supple Respiratory/Chest: chest wall non-tender Cardiovascular/Chest: normal peripheral pulses, normal rate Abdomen: normal bowel sounds, non tender Genitourinary/Rectal: normal genital exam Extremities: normal range of motion Skin Exam: normal pigmentation Microbiology Date/Time Source Procedure Growth Status 08/06/19 00:18 Blood Blood Culture - Preliminary NO GROWTH AFTER 48 HOURS Resulted 08/06/19 00:08 Blood Blood Culture - Preliminary NO GROWTH AFTER 48 HOURS Resulted 08/06/19 01:00 Nasal Nares - Final Complete 08/06/19 01:00 Nasal Nares - Final Complete 08/06/19 00:44 Nasal Nares MRSA Culture - Final Staphylococcus Aureus - Mrsa Complete 08/06/19 00:10 Urine,Clean Catch Urine Culture - Preliminary Proteus Mirabilis Resulted 08/06/19 00:44 Rectum - Final NO CARBAPENEM-RESISTANT ENTEROBACTERI... Complete 08/06/19 00:44 Rectum VRE Culture - Final Enterococcus Faecalis - Vre Complete Laboratory Tests Test 08/08/19 06:30 White Blood Count 8.7 K/UL (4.8-10.8) Red Blood Count 2.77 M/UL (4.20-5.40) L Hemoglobin 8.2 G/DL (12.0-16.0) L Hematocrit 25.9 % (37.0-47.0) L Mean Corpuscular Volume 94 FL (80-99) Mean Corpuscular Hemoglobin 29.5 PG (27.0-31.0) Mean Corpuscular Hemoglobin Concent 31.5 G/DL (32.0-36.0) L Red Cell Distribution Width 13.0 % (11.6-14.8) Platelet Count 182 K/UL (150-450) Mean Platelet Volume 9.3 FL (6.5-10.1) Neutrophils (%) (Auto) 64.9 % (45.0-75.0) Lymphocytes (%) (Auto) 23.6 % (20.0-45.0) Monocytes (%) (Auto) 5.9 % (1.0-10.0) Eosinophils (%) (Auto) 5.2 % (0.0-3.0) H Basophils (%) (Auto) 0.5 % (0.0-2.0) Erythrocyte Sedimentation Rate 132 MM/HR (0-30) H Sodium Level 151 MMOL/L (136-145) H Potassium Level 3.2 MMOL/L (3.5-5.1) L Chloride Level 116 MMOL/L (98-107) H Carbon Dioxide Level 27 MMOL/L (21-32) Anion Gap 8 mmol/L (5-15) Blood Urea Nitrogen 23 mg/dL (7-18) H Creatinine 1.3 MG/DL (0.55-1.30) Estimat Glomerular Filtration Rate mL/min (>60) Glucose Level 114 MG/DL (74-106) H Calcium Level 9.2 MG/DL (8.5-10.1) Phosphorus Level 3.0 MG/DL (2.5-4.9) Magnesium Level 2.1 MG/DL (1.8-2.4) Total Bilirubin 0.6 MG/DL (0.2-1.0) Aspartate Amino Transf (AST/SGOT) 23 U/L (15-37) Alanine Aminotransferase (ALT/SGPT) 33 U/L (12-78) Alkaline Phosphatase 99 U/L (46-116) C-Reactive Protein, Quantitative 4.0 mg/dL (0.00-0.90) H Total Protein 8.0 G/DL (6.4-8.2) Albumin 2.5 G/DL (3.4-5.0) L Globulin 5.5 g/dL Albumin/Globulin Ratio 0.5 (1.0-2.7) L Current Medications Medications (Trade) Dose Ordered Sig/Torsten Route PRN Reason Start Time Stop Time Status Last Admin Dose Admin Acetaminophen (Tylenol) 650 mg Q4H PRN GT fever (temp>100.5F) 08/06/19 20:00 09/05/19 19:59 Acetaminophen (Tylenol) 650 mg Q4H PRN GT headache, mild pain 08/06/19 20:00 09/05/19 19:59 Albuterol/ Ipratropium (Albuterol/ Ipratropium) 3 ml Q4H PRN HHN Shortness of Breath 08/06/19 20:00 08/11/19 19:59 Ascorbic Acid (Vitamin C) 250 mg TWICE A DAY GT 08/07/19 09:00 09/06/19 08:59 08/08/19 09:22 Cefepime HCl 1 gm/ Dextrose 55 ml @ 110 mls/hr Q24H IV 08/07/19 10:00 08/13/19 09:59 08/08/19 09:25 Clonazepam (KlonoPIN) 0.5 mg Q6HR GT 08/07/19 00:00 08/13/19 07:01 08/08/19 11:54 Dextrose 1,000 ml @ 85 mls/hr [id number] IV 08/08/19 12:24 09/06/19 12:23 08/08/19 11:56 Heparin Sodium (Porcine) (Heparin 5000 units/ml) 5,000 units EVERY 12 HOURS SUBQ 08/06/19 21:00 09/05/19 08:59 08/08/19 09:23 Levothyroxine Sodium (Synthroid) 125 mcg Q24H GT 08/07/19 06:30 09/06/19 06:29 08/08/19 06:07 Memantine (Namenda) 5 mg BID ORAL 08/08/19 09:00 09/07/19 08:59 08/08/19 09:22 Nitroglycerin (Ntg) 0.4 mg Q5M PRN SL Prn Chest Pain 08/06/19 19:00 09/05/19 06:59 Ondansetron HCl (Zofran) 4 mg Q6H PRN IVP Nausea & Vomiting 08/06/19 19:00 09/05/19 06:59 Pantoprazole (Protonix) 40 mg EVERY 12 HOURS IVP 08/06/19 21:00 09/05/19 10:59 08/08/19 09:24 Polyethylene Glycol (Miralax) 17 gm DAILYPRN PRN GT Constipation 08/06/19 20:00 09/05/19 19:59 Potassium Chloride (K-Dur) 40 meq TWICE A DAY GT 08/08/19 09:30 09/07/19 09:29 08/08/19 09:31 Promethazine HCl/ Codeine (Phenergan with Codeine) 5 ml Q4H PRN GT For Cough 08/06/19 19:00 09/05/19 06:59 Temazepam (Restoril) 15 mg HSPRN PRN GT Insomnia 08/06/19 21:00 08/13/19 20:59 Trazodone HCl (Desyrel) 50 mg BEDTIME PRN GT insomnia 08/06/19 21:00 09/05/19 06:59 Vancomycin HCl (Vanco rx to dose) 1 ea DAILY PRN MISC Per rx protocol 08/07/19 09:00 09/05/19 18:29 Yane Umana M.D. Aug 08, 2019 12:12
--- NOTE | 2019-08-08 13:15 | Pulmonology Progress Note ---
Assessment/Plan Problems: (1) Nosocomial pneumonia (2) Acute on chronic renal failure (3) Chronic respiratory failure (4) Tracheostomy care (5) Cardiomyopathy (6) Seizure disorder (7) Feeding by G-tube (8) Chronic vegetative state Assessment/Plan check cultures iv abx Na getting better, increase D5w to 150 cc/hour\ continue gtube feeding tracheostomy care dvt prophylaxis all meds reviewed. Subjective ROS Limited/Unobtainable: No Constitutional: Reports: no symptoms HEENT: Repors: no symptoms Respiratory: Reports: no symptoms Allergies: Coded Allergies: ASPIRIN (Verified Allergy, Unknown, 07/07/17) Objective Last 24 Hour Vital Signs Date Time Temp Pulse Resp B/P (MAP) Pulse Ox O2 Delivery O2 Flow Rate FiO2 08/08/19 12:09 99.4 102 22 125/72 (89) 94 08/08/19 12:09 5.0 28 08/08/19 09:43 Trach Collar 5.0 08/08/19 08:00 5.0 28 08/08/19 08:00 100.4 88 22 140/83 (102) 98 08/08/19 07:00 96 Cool Aerosol 5.0 28 08/08/19 04:00 97.8 80 22 128/61 (83) 98 08/08/19 04:00 5.0 28 08/08/19 01:30 95 Cool Aerosol 5.0 28 08/08/19 00:00 98.3 75 22 131/70 (90) 96 08/07/19 22:03 96 Cool Aerosol 5.0 28 08/07/19 21:00 Trach Collar 5.0 08/07/19 20:00 5.0 28 08/07/19 20:00 98.5 109 21 146/74 (98) 98 08/07/19 20:00 96 Cool Aerosol 5.0 28 08/07/19 16:00 98.4 89 20 133/60 (84) 97 08/07/19 16:00 5.0 28 08/07/19 13:27 95 Cool Aerosol 5.0 28 Intake and Output 08/07/19 08/08/19 18:59 06:59 Intake Total 1180 ml 1700 ml Output Total 900 ml 550 ml Balance 280 ml 1150 ml Free Water 200 ml IV Total 1180 ml 1500 ml Output Urine Total 900 ml 550 ml # Voids 2 1 # Bowel Movements 1 HEENT: status post trach Respiratory/Chest: chest wall non-tender, lungs clear, crackles/rales Breasts: no masses Cardiovascular: normal peripheral pulses Abdomen: normal bowel sounds, soft, non tender Extremities: no cyanosis Microbiology Date/Time Source Procedure Growth Status 08/06/19 00:18 Blood Blood Culture - Preliminary NO GROWTH AFTER 48 HOURS Resulted 08/06/19 00:08 Blood Blood Culture - Preliminary NO GROWTH AFTER 48 HOURS Resulted 08/06/19 01:00 Nasal Nares - Final Complete 08/06/19 01:00 Nasal Nares - Final Complete 08/06/19 00:44 Nasal Nares MRSA Culture - Final Staphylococcus Aureus - Mrsa Complete 08/06/19 00:10 Urine,Clean Catch Urine Culture - Preliminary Proteus Mirabilis Resulted 08/06/19 00:44 Rectum - Final NO CARBAPENEM-RESISTANT ENTEROBACTERI... Complete 08/06/19 00:44 Rectum VRE Culture - Final Enterococcus Faecalis - Vre Complete Laboratory Tests 08/08/19 06:30: White Blood Count 8.7, Red Blood Count 2.77L, Hemoglobin 8.2L, Hematocrit 25.9L , Mean Corpuscular Volume 94, Mean Corpuscular Hemoglobin 29.5, Mean Corpuscular Hemoglobin Concent 31.5L, Red Cell Distribution Width 13.0, Platelet Count 182, Mean Platelet Volume 9.3, Neutrophils (%) (Auto) 64.9, Lymphocytes (%) (Auto) 23.6, Monocytes (%) (Auto) 5.9, Eosinophils (%) (Auto) 5.2H, Basophils (%) (Auto) 0.5, Erythrocyte Sedimentation Rate 132H, Sodium Level 151H, Potassium Level 3.2L, Chloride Level 116H, Carbon Dioxide Level 27, Anion Gap 8, Blood Urea Nitrogen 23H, Creatinine 1.3, Estimat Glomerular Filtration Rate , Glucose Level 114H, Calcium Level 9.2, Phosphorus Level 3.0, Magnesium Level 2.1, Total Bilirubin 0.6, Aspartate Amino Transf (AST/SGOT) 23, Alanine Aminotransferase (ALT/SGPT) 33, Alkaline Phosphatase 99, C-Reactive Protein, Quantitative 4.0H, Total Protein 8.0, Albumin 2.5L, Globulin 5.5, Albumin/Globulin Ratio 0.5L Current Medications Medications (Trade) Dose Ordered Sig/Torsten Route PRN Reason Start Time Stop Time Status Last Admin Dose Admin Acetaminophen (Tylenol) 650 mg Q4H PRN GT fever (temp>100.5F) 08/06/19 20:00 09/05/19 19:59 Acetaminophen (Tylenol) 650 mg Q4H PRN GT headache, mild pain 08/06/19 20:00 09/05/19 19:59 Albuterol/ Ipratropium (Albuterol/ Ipratropium) 3 ml Q4H PRN HHN Shortness of Breath 08/06/19 20:00 08/11/19 19:59 Ascorbic Acid (Vitamin C) 250 mg TWICE A DAY GT 08/07/19 09:00 09/06/19 08:59 08/08/19 09:22 Clonazepam (KlonoPIN) 0.5 mg Q6HR GT 08/07/19 00:00 08/13/19 07:01 08/08/19 11:54 Dextrose 1,000 ml @ 85 mls/hr [id number] IV 08/08/19 12:24 09/06/19 12:23 08/08/19 11:56 Heparin Sodium (Porcine) (Heparin 5000 units/ml) 5,000 units EVERY 12 HOURS SUBQ 08/06/19 21:00 09/05/19 08:59 08/08/19 09:23 Levothyroxine Sodium (Synthroid) 125 mcg Q24H GT 08/07/19 06:30 09/06/19 06:29 08/08/19 06:07 Memantine (Namenda) 5 mg BID ORAL 08/08/19 09:00 09/07/19 08:59 08/08/19 09:22 Meropenem 1 gm/ Sodium Chloride 55 ml @ 110 mls/hr Q12H IVPB 08/08/19 14:00 08/13/19 13:59 Nitroglycerin (Ntg) 0.4 mg Q5M PRN SL Prn Chest Pain 08/06/19 19:00 09/05/19 06:59 Ondansetron HCl (Zofran) 4 mg Q6H PRN IVP Nausea & Vomiting 08/06/19 19:00 09/05/19 06:59 Pantoprazole (Protonix) 40 mg EVERY 12 HOURS IVP 08/06/19 21:00 09/05/19 10:59 08/08/19 09:24 Polyethylene Glycol (Miralax) 17 gm DAILYPRN PRN GT Constipation 08/06/19 20:00 09/05/19 19:59 Potassium Chloride (K-Dur) 40 meq TWICE A DAY GT 08/08/19 09:30 09/07/19 09:29 08/08/19 09:31 Promethazine HCl/ Codeine (Phenergan with Codeine) 5 ml Q4H PRN GT For Cough 08/06/19 19:00 09/05/19 06:59 Temazepam (Restoril) 15 mg HSPRN PRN GT Insomnia 08/06/19 21:00 08/13/19 20:59 Trazodone HCl (Desyrel) 50 mg BEDTIME PRN GT insomnia 08/06/19 21:00 09/05/19 06:59 Vancomycin HCl (Vanco rx to dose) 1 ea DAILY PRN MISC Per rx protocol 08/07/19 09:00 09/05/19 18:29 Sue Yu MD Aug 08, 2019 13:15
--- NOTE | 2019-08-08 14:04 | General Progress Note ---
Assessment/Plan Problem List: (1) Decubitus skin ulcer ICD Codes: L89.90 - Pressure ulcer of unspecified site, unspecified stage SNOMED: 774726901 (2) Hypernatremia ICD Codes: E87.0 - Hyperosmolality and hypernatremia SNOMED: 34249407 (3) Hypotension ICD Codes: I95.9 - Hypotension, unspecified SNOMED: 69831824 (4) Anemia ICD Codes: D64.9 - Anemia, unspecified SNOMED: 879766783 (5) Seizure disorder ICD Codes: G40.909 - Epilepsy, unspecified, not intractable, without status epilepticus SNOMED: 731636247 (6) Septic shock ICD Codes: A41.9 - Sepsis, unspecified organism; R65.21 - Severe sepsis with septic shock SNOMED: 71893157 (7) HTN (hypertension) ICD Codes: I10 - Essential (primary) hypertension SNOMED: 42226266 (8) Cardiomyopathy ICD Codes: I42.9 - Cardiomyopathy, unspecified SNOMED: 57236991 (9) Sepsis ICD Codes: A41.9 - Sepsis, unspecified organism SNOMED: 33571194 Qualifiers: Qualified Codes: A41.9 - Sepsis, unspecified organism (10) Acute and chronic respiratory failure ICD Codes: J96.20 - Acute and chronic respiratory failure, unspecified whether with hypoxia or hypercapnia SNOMED: 17141009 (11) Tracheostomy care ICD Codes: Z43.0 - Encounter for attention to tracheostomy SNOMED: 097033383 (12) Bowel obstruction ICD Codes: K56.609 - Unspecified intestinal obstruction, unspecified as to partial versus complete obstruction SNOMED: 36149716 (13) Feeding by G-tube ICD Codes: Z93.1 - Gastrostomy status SNOMED: 107369752, 552809467 (14) Malfunction of gastrostomy tube ICD Codes: K94.23 - Gastrostomy malfunction SNOMED: 670696255 (15) Chronic respiratory failure ICD Codes: J96.10 - Chronic respiratory failure, unspecified whether with hypoxia or hypercapnia SNOMED: 27574615 Qualifiers: Qualified Codes: J96.10 - Chronic respiratory failure, unspecified whether with hypoxia or hypercapnia (16) Chronic vegetative state ICD Codes: R40.3 - Persistent vegetative state SNOMED: 52629017 (17) Nosocomial pneumonia ICD Codes: J18.9 - Pneumonia, unspecified organism SNOMED: 502399955 (18) Fecal impaction ICD Codes: K56.41 - Fecal impaction SNOMED: 91837404 (19) ATN (acute tubular necrosis) ICD Codes: N17.0 - Acute kidney failure with tubular necrosis SNOMED: 70038493 (20) Ileus ICD Codes: K56.7 - Ileus, unspecified SNOMED: 077985501 (21) Acute on chronic renal failure ICD Codes: N17.9 - Acute kidney failure, unspecified; N18.9 - Chronic kidney disease, unspecified SNOMED: 863875122 (22) UTI (urinary tract infection) ICD Codes: N39.0 - Urinary tract infection, site not specified SNOMED: 23376312 (23) Anemia ICD Codes: D64.9 - Anemia, unspecified SNOMED: 102273562 Status: unchanged Assessment/Plan: o2 pulm tx trach care abx diet cbc bmp am heme gi eval Subjective Constitutional: Reports: weakness Allergies: Coded Allergies: ASPIRIN (Verified Allergy, Unknown, 07/07/17) All Systems: reviewed and negative except above Subjective trach aerosol calm Objective Last 24 Hour Vital Signs Date Time Temp Pulse Resp B/P (MAP) Pulse Ox O2 Delivery O2 Flow Rate FiO2 08/08/19 12:09 99.4 102 22 125/72 (89) 94 08/08/19 12:09 5.0 28 08/08/19 09:43 Trach Collar 5.0 08/08/19 08:00 5.0 28 08/08/19 08:00 100.4 88 22 140/83 (102) 98 08/08/19 07:00 96 Cool Aerosol 5.0 28 08/08/19 04:00 97.8 80 22 128/61 (83) 98 08/08/19 04:00 5.0 28 08/08/19 01:30 95 Cool Aerosol 5.0 28 08/08/19 00:00 98.3 75 22 131/70 (90) 96 08/07/19 22:03 96 Cool Aerosol 5.0 28 08/07/19 21:00 Trach Collar 5.0 08/07/19 20:00 5.0 28 08/07/19 20:00 98.5 109 21 146/74 (98) 98 08/07/19 20:00 96 Cool Aerosol 5.0 28 08/07/19 16:00 98.4 89 20 133/60 (84) 97 08/07/19 16:00 5.0 28 Intake and Output 08/07/19 08/08/19 18:59 06:59 Intake Total 1180 ml 1700 ml Output Total 900 ml 550 ml Balance 280 ml 1150 ml Free Water 200 ml IV Total 1180 ml 1500 ml Output Urine Total 900 ml 550 ml # Voids 2 1 # Bowel Movements 1 Laboratory Tests 08/08/19 06:30: White Blood Count 8.7, Red Blood Count 2.77L, Hemoglobin 8.2L, Hematocrit 25.9L , Mean Corpuscular Volume 94, Mean Corpuscular Hemoglobin 29.5, Mean Corpuscular Hemoglobin Concent 31.5L, Red Cell Distribution Width 13.0, Platelet Count 182, Mean Platelet Volume 9.3, Neutrophils (%) (Auto) 64.9, Lymphocytes (%) (Auto) 23.6, Monocytes (%) (Auto) 5.9, Eosinophils (%) (Auto) 5.2H, Basophils (%) (Auto) 0.5, Erythrocyte Sedimentation Rate 132H, Sodium Level 151H, Potassium Level 3.2L, Chloride Level 116H, Carbon Dioxide Level 27, Anion Gap 8, Blood Urea Nitrogen 23H, Creatinine 1.3, Estimat Glomerular Filtration Rate , Glucose Level 114H, Calcium Level 9.2, Phosphorus Level 3.0, Magnesium Level 2.1, Total Bilirubin 0.6, Aspartate Amino Transf (AST/SGOT) 23, Alanine Aminotransferase (ALT/SGPT) 33, Alkaline Phosphatase 99, C-Reactive Protein, Quantitative 4.0H, Total Protein 8.0, Albumin 2.5L, Globulin 5.5, Albumin/Globulin Ratio 0.5L Height (Feet): 5 Height (Inches): 8.00 Weight (Pounds): 126 General Appearance: lethargic EENT: normal ENT inspection Neck: normal alignment Cardiovascular: normal peripheral pulses, normal rate, regular rhythm Respiratory/Chest: chest wall non-tender, lungs clear, normal breath sounds Abdomen: normal bowel sounds, non tender, soft Extremities: normal inspection Edema: no edema noted Arm (L), no edema noted Arm (R), no edema noted Leg (L), no edema noted Leg (R), no edema noted Pedal (L), no edema noted Pedal (R), no edema noted Generalized Neurologic: motor weakness Skin: normal pigmentation, warm/dry Rl White DO Aug 08, 2019 14:04
[2019-08-08] MEDS: Meropenem 1 GM in NS 55 ML IVPB SCH (14:13)
--- NOTE | 2019-08-08 15:09 | GI Initial Consult Note ---
History of Present Illness General Date patient seen: Aug 08, 2019 Time patient seen: 16:51 Reason for Hospitalization: Abnormal Labs Referring physician: AMY HUMPHRIES Reason for Consultation: ANEMIA Present Illness HPI 84-year-old female presents ED for evaluation. Brought in by EMS from longterm facility. Has abnormal labs. Reportedly high sodium and elevated white cell count. Patient nonverbal on arrival. Trach with collar to oxygen. No signs of distress upon arrival. No reported fevers or chills. Unable to provide any additional history at this time. No other aggravating relieving factors. No other associated symptoms GI consulted for progressing anemia. ROS limited, patient non verbal unable to provide any history. Lab review noted patient progressive worsening anemia with Hgb of 10.6 to 8.2 over the past 2 days. No recorded history of endoscopy or colonoscopy. Home Meds Reported Medications Glucagon,Human Recombinant (GLUCAGON EMERGENCY KIT) 1 Mg Kit, 1 MG IJ, KIT 08/07/19 Famotidine* (Pepcid 20mg tablet*) 20 Mg Tablet, 20 MG GT DAILY 08/07/19 Zinc Sulfate (ZINC SULFATE) 220 Mg Tablet, 220 MG GT DAILY 08/07/19 Amino Acids/Protein Hydrolys (PRO-STAT LIQUID) 30 Ml Liquid.pkt, 30 ML GT DAILY 08/07/19 Cranberry Fruit Concentrate (CRANBERRY) 450 Mg Capsule, 450 MG GT DAILY 08/07/19 Melatonin/Pyridoxine HCl (B6) (Melatonin 3 mg Tablet) 1 Each Tablet, 1 EACH PO BEDTIME 08/07/19 Vit C/Ascorbate Ca/Ascorb Sod (VITAMIN C 500 MG/15 ML LIQUID) 500 Mg/15 Ml Liquid, 500 MG GT DAILY 08/07/19 Acetaminophen 160MG/5ML* (ACETAMINOPHEN*) 160 Mg/5 Ml Elixir, 20 ML GT Q4HR PRN for Mild Pain/Temp > 100.5 08/07/19 Multivitamin (Multivitamins) 1 Each Tablet, 1 EACH GT DAILY 08/07/19 Hydroxyzine Hcl (HYDROXYZINE HCL) 10 Mg Tablet, 10 MG GT ONCE DAILY for PRURITIS , TAB 12/21/18 Levothyroxine Sodium* (SYNTHROID*) 112 Mcg Tablet, 125 MCG GT DAILY for HYPOTHYROIDISM, TAB Take in the morning on an empty stomach, at least 30 minutes before food. 09/11/18 Latanoprost* (XALATAN*) 2.5 Ml Drops, 1 DROP BOTH EYES BEDTIME for GLAUCOMA, ML 0 Refills 10/20/17 Heparin Sod (Porcine) (HEPARIN SODIUM*) 5 000/1 Ml Vial, 5000 UNITS SUBQ EVERY 12 HOURS, VIAL 10/20/17 Bisacodyl (BISACODYL) 10 Mg Supp.rect, 10 MG RC BEDTIME PRN for Constipation USE EVERY DAY PRN IF DULCOLAX IS INEFFECTIVE 10/20/17 Chlorhexidine Gluconate* (HIBICLENS*) 118 Ml Liquid, 15 ML PO BID for ORAL HYGIENE, ML SWAB WITH TOOTHBRUSH TO ORAL CAVITY WITH ORAL SOLUTION 10/20/17 Magnesium Hydroxide* (MILK OF MAGNESIA*) 400 Mg/5 Ml Oral.susp, 30 ML GT Q6HR PRN for Constipation, ML USE QHS PRN IF ORDERED STOOL SOFTENERS ARE INEFFECTIVE 07/07/17 Memantine Hcl* (NAMENDA*) 5 Mg Tablet, 5 MG GT TWICE A DAY for DEMENTIA, TAB 07/07/17 Discontinued Reported Medications Melatonin (MELATONIN) 1 Mg Tab.subl, GT BEDTIME for TO REGULATE CIRCADIAN RHYTHM , TAB 12/21/18 Na Phos,M-B/Na Phos,Di-Ba* (FLEET ENEMA*) 133 Ml Enema, 133 ML RECTAL DAILY, ML 0 Refills 12/21/18 Clonazepam* (KLONOPIN*) 0.5 Mg Tablet, 0.5 MG ORAL Q6H, #15 TAB 0 Refills 09/11/18 Ondansetron* (ZOFRAN*) 4 Mg/2 Ml Vial, 4 MG IM Q6H PRN for Nausea & Vomiting, VIAL 10/20/17 Ascorbic Acid* (VITAMIN C*) 500 Mg Tablet, 500 MG GT DAILY, #30 TAB 0 Refills 10/20/17 Cran/Vitc/Mannose/Inulin/Brom (UTI-STAT LIQUID) 3,875 Mg/30 Ml Liquid, 30 ML GT BID for UTI PROPHYLAXIS, ML 10/20/17 Acetaminophen* (ACETAMINOPHEN 325MG TABLET*) 325 Mg Tablet, 650 MG GT Q4H PRN for Fever/Headache/Mild Pain, TAB 10/20/17 Omeprazole (OMEPRAZOLE) 20 Mg Tablet.dr, 20 MG GT DAILY, TAB 10/20/17 Multivitamin Liquid* (MULTI-DELYN*) 237 Ml Liquid, 5 ML GT DAILY, ML 10/20/17 Docusate Sodium* (COLACE*) 100 Mg Capsule, 100 MG GT DAILY, CAP 10/20/17 Trazodone Hcl* (DESYREL*) 50 Mg Tablet, 50 MG GT BEDTIME PRN for insomnia, TAB 07/07/17 Acetaminophen* (ACETAMINOPHEN 325MG TABLET*) 325 Mg Tablet, 600 MG GT Q4H PRN for MILD PAIN, TAB 12/21/18 Cholecalciferol (Vitamin D3)* (VITAMIN D*) 1,000 Unit Tablet, 5000 UNIT GT DAILY for SUPPLEMENT, #30 TAB 12/21/18 Amiodarone Hcl* (AMIODARONE HCL*) 400 Mg Tablet, 200 MG GT ONCE DAILY for ARRYTHMIA, TAB 12/21/18 Pantoprazole* (PROTONIX*) 40 Mg Tablet.dr, 40 MG GT DAILY for GERD, TAB TAKE DAILY AT 6:30 AM FOR GERD. MIX WITH APPLE SAUCE FOR ABSORPTION 09/11/18 Heparin Sodium,Porcine/Ns/Pf (Heparin) 2,000 Unit/1000 Ml Iv.soln, 2000 UNIT IV 09/11/18 Lorazepam* (LORAZEPAM*) 0.5 Mg Tablet, 0.5 MG GT Q6HR PRN for For Anxiety, TAB 10/21/17 Albuterol Sulfate* (ALBUTEROL SULFATE HHN*) 2.5 Mg/3 Ml Vial.neb, 3 ML INH Q6H, #30 EA 0 Refills 10/21/17 Albuterol Sulfate* (ALBUTEROL SULFATE HHN*) 2.5 Mg/3 Ml Vial.neb, 3 ML INH Q3HR PRN for Shortness of Breath, EA 10/21/17 Discontinued Scripts Cefepime Hcl/D5w (CEFEPIME-DEXTROSE 1 GM/50 ML) 1 Gm/50 Ml Piggyback, 1 GM IVPB EVERY 12 HOURS for 10 Days, BAG Prov:Sue Yu MD 10/30/17 Med list reviewed/reconciled: Yes Allergies: Coded Allergies: ASPIRIN (Verified Allergy, Unknown, 07/07/17) Patient History Limited by: medical condition History Provided By: Medical Record PMH Narrative Past Medical History: COPD, CVA/TIA, dementia, seizures, other - quadriplegic Past Surgical History: other - trach Pertinent Family History: none Social History: Denies: smoking, alcohol use, drug use Now: No Immunizations: UTD Reviewed Nursing Documentation: PMH: Agreed; PSxH: Agreed Nursing Documentation-PMH Past Medical History: No History, Except For Hx Cardiac Problems: Yes - cardiac arrythmia Hx Hypertension: Yes Hx COPD: Yes Hx Cancer: No Hx Gastrointestinal Problems: Yes Hx Dialysis: No Hx Neurological Problems: Yes - quadriplegic Hx Cerebrovascular Accident: Yes Hx Transient Ischemic Attacks: Yes Hx Dementia: Yes Hx Seizures: Yes Hx Epilepsy: Yes Social History: Denies: smoking, alcohol use, drug use, other Review of Systems All Other Systems: limited Physical Exam Vital Signs Date Time Temp Pulse Resp B/P (MAP) Pulse Ox O2 Delivery O2 Flow Rate FiO2 08/05/19 23:33 99.7 114 30 123/80 (94) 100 Trach Collar 08/06/19 04:27 5.0 08/06/19 08:00 28 Sp02 EP Interpretation: reviewed Labs Laboratory Tests Test 08/08/19 06:30 White Blood Count 8.7 K/UL (4.8-10.8) Red Blood Count 2.77 M/UL (4.20-5.40) L Hemoglobin 8.2 G/DL (12.0-16.0) L Hematocrit 25.9 % (37.0-47.0) L Mean Corpuscular Volume 94 FL (80-99) Mean Corpuscular Hemoglobin 29.5 PG (27.0-31.0) Mean Corpuscular Hemoglobin Concent 31.5 G/DL (32.0-36.0) L Red Cell Distribution Width 13.0 % (11.6-14.8) Platelet Count 182 K/UL (150-450) Mean Platelet Volume 9.3 FL (6.5-10.1) Neutrophils (%) (Auto) 64.9 % (45.0-75.0) Lymphocytes (%) (Auto) 23.6 % (20.0-45.0) Monocytes (%) (Auto) 5.9 % (1.0-10.0) Eosinophils (%) (Auto) 5.2 % (0.0-3.0) H Basophils (%) (Auto) 0.5 % (0.0-2.0) Erythrocyte Sedimentation Rate 132 MM/HR (0-30) H Sodium Level 151 MMOL/L (136-145) H Potassium Level 3.2 MMOL/L (3.5-5.1) L Chloride Level 116 MMOL/L (98-107) H Carbon Dioxide Level 27 MMOL/L (21-32) Anion Gap 8 mmol/L (5-15) Blood Urea Nitrogen 23 mg/dL (7-18) H Creatinine 1.3 MG/DL (0.55-1.30) Estimat Glomerular Filtration Rate mL/min (>60) Glucose Level 114 MG/DL (74-106) H Calcium Level 9.2 MG/DL (8.5-10.1) Phosphorus Level 3.0 MG/DL (2.5-4.9) Magnesium Level 2.1 MG/DL (1.8-2.4) Total Bilirubin 0.6 MG/DL (0.2-1.0) Aspartate Amino Transf (AST/SGOT) 23 U/L (15-37) Alanine Aminotransferase (ALT/SGPT) 33 U/L (12-78) Alkaline Phosphatase 99 U/L (46-116) C-Reactive Protein, Quantitative 4.0 mg/dL (0.00-0.90) H Total Protein 8.0 G/DL (6.4-8.2) Albumin 2.5 G/DL (3.4-5.0) L Globulin 5.5 g/dL Albumin/Globulin Ratio 0.5 (1.0-2.7) L General Appearance: no apparent distress Head: normocephalic EENT: normal ENT inspection Neck: supple Respiratory: normal breath sounds Cardiovascular: regular rhythm Gastrointestinal: soft Skin: normal inspection, normal color, no rash Lymphatic: normal inspection Current Medications Current Medications Medications (Trade) Dose Ordered Sig/Torsten Route PRN Reason Start Time Stop Time Status Last Admin Dose Admin Acetaminophen (Tylenol) 650 mg Q4H PRN GT fever (temp>100.5F) 08/06/19 20:00 09/05/19 19:59 Acetaminophen (Tylenol) 650 mg Q4H PRN GT headache, mild pain 08/06/19 20:00 09/05/19 19:59 Albuterol/ Ipratropium (Albuterol/ Ipratropium) 3 ml Q4H PRN HHN Shortness of Breath 08/06/19 20:00 08/11/19 19:59 Ascorbic Acid (Vitamin C) 250 mg TWICE A DAY GT 08/07/19 09:00 09/06/19 08:59 08/08/19 09:22 Clonazepam (KlonoPIN) 0.5 mg Q6HR GT 08/07/19 00:00 08/13/19 07:01 08/08/19 11:54 Dextrose 1,000 ml @ 85 mls/hr [id number] IV 08/08/19 12:24 09/06/19 12:23 08/08/19 11:56 Heparin Sodium (Porcine) (Heparin 5000 units/ml) 5,000 units EVERY 12 HOURS SUBQ 08/06/19 21:00 09/05/19 08:59 08/08/19 09:23 Levothyroxine Sodium (Synthroid) 125 mcg Q24H GT 08/07/19 06:30 09/06/19 06:29 08/08/19 06:07 Memantine (Namenda) 5 mg BID ORAL 08/08/19 09:00 09/07/19 08:59 08/08/19 09:22 Meropenem 1 gm/ Sodium Chloride 55 ml @ 110 mls/hr Q12H IVPB 08/08/19 14:00 08/13/19 13:59 08/08/19 14:13 Nitroglycerin (Ntg) 0.4 mg Q5M PRN SL Prn Chest Pain 08/06/19 19:00 09/05/19 06:59 Ondansetron HCl (Zofran) 4 mg Q6H PRN IVP Nausea & Vomiting 08/06/19 19:00 09/05/19 06:59 Pantoprazole (Protonix) 40 mg EVERY 12 HOURS IVP 08/06/19 21:00 09/05/19 10:59 08/08/19 09:24 Polyethylene Glycol (Miralax) 17 gm DAILYPRN PRN GT Constipation 08/06/19 20:00 09/05/19 19:59 Potassium Chloride (K-Dur) 40 meq TWICE A DAY GT 08/08/19 09:30 09/07/19 09:29 08/08/19 09:31 Promethazine HCl/ Codeine (Phenergan with Codeine) 5 ml Q4H PRN GT For Cough 08/06/19 19:00 09/05/19 06:59 Temazepam (Restoril) 15 mg HSPRN PRN GT Insomnia 08/06/19 21:00 08/13/19 20:59 Trazodone HCl (Desyrel) 50 mg BEDTIME PRN GT insomnia 08/06/19 21:00 09/05/19 06:59 Vancomycin HCl (Vanco rx to dose) 1 ea DAILY PRN MISC Per rx protocol 08/07/19 09:00 09/05/19 18:29 GI: Plan Problems: (1) Feeding by G-tube (2) Anemia (3) Dehydration Plan EGD and colonoscopy on hold for now d/w with public guardian patient is DNR with limited interventions must be reviewed prior decision send occult blood stool to evaluate for GI bleed monitor H&H, prn transfusions PPI daily IV + PO hydration and electrolyte correction per nephro consider increase free water flush for hypernatremia will follow on daily basis with additional recommendations Discussed with Dr. Skinner. Thank you for this patient referral, we will follow. Svetlana French NP Aug 08, 2019 15:09
[2019-08-08] MEDS ORDERED: Nulytely 4L ORAL ONE (16:00)
--- NOTE | 2019-08-08 16:16 | NUR ---
nurse notes notified nic Aguilera Nguyen regarding the procedure he ordered to patient, to pls notify/explain to the public guardian, why the patient needs the procedure, name and tel no, of PG given per Mr French to hold prep for the meantime, will wait for public guardian to review case prior to give consent to the proc lion sharif
[2019-08-08 16:48] VITALS: BP 149/64
[2019-08-08] MEDS: Acetaminophen 650mg/20.3ml GT PRN (17:07)
--- NOTE | 2019-08-08 19:13 | NUR ---
HAND-OFF: Report given to RONDA Solomon .RONDA DAY.
--- NOTE | 2019-08-08 19:30 | Surgery Progress Note ---
Surgery Progress Note Subjective Additional Comments fevers wbc resolved esr elevated crp trending down exam stable Objective Last 24 Hour Vital Signs Date Time Temp Pulse Resp B/P (MAP) Pulse Ox O2 Delivery O2 Flow Rate FiO2 08/08/19 17:37 97.8 08/08/19 16:48 100.9 112 18 149/64 (92) 94 08/08/19 16:08 5.0 28 08/08/19 13:24 99 Cool Aerosol 5.0 28 08/08/19 12:09 99.4 102 22 125/72 (89) 94 08/08/19 12:09 5.0 28 08/08/19 09:43 Trach Collar 5.0 08/08/19 08:00 5.0 28 08/08/19 08:00 100.4 88 22 140/83 (102) 98 08/08/19 07:00 96 Cool Aerosol 5.0 28 08/08/19 04:00 97.8 80 22 128/61 (83) 98 08/08/19 04:00 5.0 28 08/08/19 01:30 95 Cool Aerosol 5.0 28 08/08/19 00:00 98.3 75 22 131/70 (90) 96 08/07/19 22:03 96 Cool Aerosol 5.0 28 08/07/19 21:00 Trach Collar 5.0 08/07/19 20:00 5.0 28 08/07/19 20:00 98.5 109 21 146/74 (98) 98 08/07/19 20:00 96 Cool Aerosol 5.0 28 I&O Intake and Output 08/07/19 08/08/19 19:00 07:00 Intake Total 1180 ml 1700 ml Output Total 900 ml 550 ml Balance 280 ml 1150 ml Free Water 200 ml IV Total 1180 ml 1500 ml Output Urine Total 900 ml 550 ml # Voids 2 1 # Bowel Movements 1 Dressing: other Wound: other Drains: other Cardiovascular: RSR Respiratory: decreased breath sounds Abdomen: soft, non-distended, decreased bowel sounds, rebound guarding Extremities: no cyanosis Laboratory Tests Test 08/08/19 06:30 White Blood Count 8.7 K/UL (4.8-10.8) Red Blood Count 2.77 M/UL (4.20-5.40) L Hemoglobin 8.2 G/DL (12.0-16.0) L Hematocrit 25.9 % (37.0-47.0) L Mean Corpuscular Volume 94 FL (80-99) Mean Corpuscular Hemoglobin 29.5 PG (27.0-31.0) Mean Corpuscular Hemoglobin Concent 31.5 G/DL (32.0-36.0) L Red Cell Distribution Width 13.0 % (11.6-14.8) Platelet Count 182 K/UL (150-450) Mean Platelet Volume 9.3 FL (6.5-10.1) Neutrophils (%) (Auto) 64.9 % (45.0-75.0) Lymphocytes (%) (Auto) 23.6 % (20.0-45.0) Monocytes (%) (Auto) 5.9 % (1.0-10.0) Eosinophils (%) (Auto) 5.2 % (0.0-3.0) H Basophils (%) (Auto) 0.5 % (0.0-2.0) Erythrocyte Sedimentation Rate 132 MM/HR (0-30) H Sodium Level 151 MMOL/L (136-145) H Potassium Level 3.2 MMOL/L (3.5-5.1) L Chloride Level 116 MMOL/L (98-107) H Carbon Dioxide Level 27 MMOL/L (21-32) Anion Gap 8 mmol/L (5-15) Blood Urea Nitrogen 23 mg/dL (7-18) H Creatinine 1.3 MG/DL (0.55-1.30) Estimat Glomerular Filtration Rate mL/min (>60) Glucose Level 114 MG/DL (74-106) H Calcium Level 9.2 MG/DL (8.5-10.1) Phosphorus Level 3.0 MG/DL (2.5-4.9) Magnesium Level 2.1 MG/DL (1.8-2.4) Total Bilirubin 0.6 MG/DL (0.2-1.0) Aspartate Amino Transf (AST/SGOT) 23 U/L (15-37) Alanine Aminotransferase (ALT/SGPT) 33 U/L (12-78) Alkaline Phosphatase 99 U/L (46-116) C-Reactive Protein, Quantitative 4.0 mg/dL (0.00-0.90) H Total Protein 8.0 G/DL (6.4-8.2) Albumin 2.5 G/DL (3.4-5.0) L Globulin 5.5 g/dL Albumin/Globulin Ratio 0.5 (1.0-2.7) L Plan Problems: (1) Sepsis Assessment & Plan: 84-year-old very unfortunate female with multiple medical comorbidities who has leukocytosis, lactic acidosis, likely UTI. Presents with multiple wounds and unstageable decubitus ulcers. Wound evaluated at bedside and unlikely the etiology of patient's sepsis. Leukocytosis lactic sepsis likely due to UTI. Patient currently on IV antibiotics as per infectious disease. Lactic acidosis improving. Exam as above. Care management as presented below. We will continue to follow recommendations. Thank you for allowing me to participate in patient's care. wbc improved. febrile. cultures pending final (2) Tracheostomy care Assessment & Plan: Trach site stable. Respiratory as per pulm (3) Feeding by G-tube Assessment & Plan: DAILY ESTIMATED NEEDS: Needs based on Wound, pulmonary 59.8kg 30-35 kcals/kg 7546-9057 total kcals 1.25-1.5 g protein/kg 75-90 g total protein 25-30ml/kcal mL/kg 5723-2015 total fluid mLs NUTRITION DIAGNOSIS: * Swallowing difficulty R/T respiratory status, dysphagia as evidenced by pt is vent dep via T-collar + PEG dep, NPO at this time * Increased kcal/prot needs R/T wound healing as evidenced by pt admitted w/ full thickness pressure sacral injury, with multiple other wounds, eval pending. (CURRENT TF: NPO) ENTERAL NUTRITION RECOMMENDATIONS: Jevity 1.2 @ 70ml/hr x 22 hrs + Prosource 1pkt QD to provide 1540ml, 1848 kcal, 85g pro, 1243 - As medically able, rec Jevity 1.2, start @30ml/hr for 6 hrs. Advance as tolerated 10ml/hr q4-6 hrs to goal - HOLD TF 1 hr before and after synthroid meds - HOB >30 degrees/ water flushes per MD - TF @ goal provides 100% of RDI. ADDITIONAL RECOMMENDATIONS: 1) Calibrated bedscale wts (EMR wt: 160 lbs vs Bed wt: 131.6lbs) 2) Rec water flushes, 120ml q6 hrs 3) Monitor BGs closely, need for hypoglycemic agents or TF change 4) Wound healing: Vit C 250mg BID Add Tommie 1pkt in 4oz H2O BID 5) F/up w/ H&P and WC eval . (4) Decubitus skin ulcer Assessment & Plan: Pt presented on admission with multiple pressure injuries. Skin assessed under trach collar and no evidence of skin breakdown noted. Unstageable pressure injury noted to sacrum(L)1.5cm x (W)2cm. Base of wound has 75% slough,25%pink granulation. Borders are macerated with surrounding non- blanching erythema. R heel Maroon,fluctuant in center with surrounding dry black borders(L)5.5cm x (W)9cm. Reabsorbed DTPI noted to L heel. Base of wound is Black and dry. Surrounding dry peeling skin without erythema.(L)5.5cm x (W)8.5cm. Inferior but in close proximity to Medial L malleolus necrotic area over bony prominence noted. Base of wound is dry without fluctuance. Periwound without discoloration.(L)1.5cm x (W)1cm. Non-Blanching erythema noted to L 1st metatarsal head and lateral aspect. No elevation in skin temp noted. Tx.Plan: Cleanse Sacral wound with Saline. Apply TheraHoney . Apply Moisture Barrier paste periwound. Cover with Optifoam drsg. Change every 3 days and prn. Apply Betadine to R heel. Cover with Optifoam drsg. Change every 3 days and prn. Apply Betadine to L Heel and Medial L foot. Cover with Optifoam drsg. Change every 3 days and prn. Apply Cavilon Skin Barrier to L 1st metatarsal head and lateral aspect Daily and prn. APM/MARCOS Mattress overlay. Reposition at least every 2hours or as tolerated. Off-load heels with pillow. Place pillow between knees. Livan Dean Aug 08, 2019 19:30
--- NOTE | 2019-08-08 19:59 | NUR ---
NURSE NOTES: Received patient in bed, total care, patient is NPO, gtube is clamped, ok to give meds via gtube, IV site is clean dry and intact, call light is within reach, bed is lowered, locked, alarm is on. Will continue to monitor for comfort and safety.
[2019-08-08 20:00] VITALS: BP 126/82
[2019-08-08] MEDS ORDERED: Fleet's Enema 133ml RECTAL ONE (23:00)
[2019-08-09] VITALS: BP 123/60
[2019-08-09] MEDS: clonazePAM 0.5mg tab GT SCH ×4 (00:27→17:54)
[2019-08-09] MEDS: Acetaminophen 650mg/20.3ml GT PRN ×2 (00:37→22:01)
[2019-08-09] MEDS: Meropenem 1 GM in NS 55 ML IVPB SCH ×2 (02:03→14:11)
[2019-08-09 04:00] VITALS: BP 100/65
[2019-08-09] MEDS: Levothyroxine 125mcg tab GT SCH (05:29)
--- NOTE | 2019-08-09 06:24 | Consultation ---
History of Present Illness General Chief Complaint: Abnormal Labs Referring physician: AMY HUMPHRIES Reason for Consultation: ANEMIA Present Illness Allergies: Coded Allergies: ASPIRIN (Verified Allergy, Unknown, 07/07/17) Medication History Scheduled Amino Acids/Protein Hydrolys (Pro-Stat Liquid), 30 ML GT DAILY, (Reported) Chlorhexidine Gluconate* (Hibiclens*), 15 ML PO BID, (Reported) Cranberry Fruit Concentrate (Cranberry), 450 MG GT DAILY, (Reported) Famotidine* (Pepcid 20mg tablet*), 20 MG GT DAILY, (Reported) Heparin Sod (Porcine) (Heparin Sodium*), 5,000 UNITS SUBQ EVERY 12 HOURS, ( Reported) Hydroxyzine Hcl (Hydroxyzine Hcl), 10 MG GT ONCE DAILY, (Reported) Latanoprost* (Xalatan*), 1 DROP BOTH EYES BEDTIME, (Reported) Levothyroxine Sodium* (Synthroid*), 125 MCG GT DAILY, (Reported) Melatonin/Pyridoxine HCl (B6) (Melatonin 3 mg Tablet), 1 EACH PO BEDTIME, ( Reported) Memantine Hcl* (Namenda*), 5 MG GT TWICE A DAY, (Reported) Multivitamin (Multivitamins), 1 EACH GT DAILY, (Reported) Vit C/Ascorbate Ca/Ascorb Sod (Vitamin C 500 Mg/15 Ml Liquid), 500 MG GT DAILY, (Reported) Zinc Sulfate (Zinc Sulfate), 220 MG GT DAILY, (Reported) Scheduled PRN Acetaminophen 160MG/5ML* (Acetaminophen*), 20 ML GT Q4HR PRN for Mild Pain/Temp > 100.5, (Reported) Bisacodyl (Bisacodyl), 10 MG RC BEDTIME PRN for Constipation, (Reported) Magnesium Hydroxide* (Milk Of Magnesia*), 30 ML GT Q6HR PRN for Constipation, ( Reported) Miscellaneous Medications Glucagon,Human Recombinant (Glucagon Emergency Kit), 1 MG IJ, (Reported) Discontinued Medications Acetaminophen* (Acetaminophen 325MG Tablet*), 650 MG GT Q4H PRN for Fever/ Headache/Mild Pain, (Reported) Discontinued Reason: Prescription changed Acetaminophen* (Acetaminophen 325MG Tablet*), 600 MG GT Q4H PRN for MILD PAIN, ( Reported) Discontinued Reason: Pt stopped taking med Albuterol Sulfate* (Albuterol Sulfate Hhn*), 3 ML INH Q3HR PRN for Shortness of Breath, (Reported) Discontinued Reason: Pt stopped taking med Albuterol Sulfate* (Albuterol Sulfate Hhn*), 3 ML INH Q6H, (Reported) Discontinued Reason: Pt stopped taking med Amiodarone Hcl* (Amiodarone Hcl*), 200 MG GT ONCE DAILY, (Reported) Discontinued Reason: Pt stopped taking med Ascorbic Acid* (Vitamin C*), 500 MG GT DAILY, (Reported) Discontinued Reason: Prescription changed Cefepime Hcl/D5w (Cefepime-Dextrose 1 Gm/50 Ml), 1 GM IVPB EVERY 12 HOURS Discontinued Reason: Pt stopped taking med Cholecalciferol (Vitamin D3)* (Vitamin D*), 5,000 UNIT GT DAILY, (Reported) Discontinued Reason: Pt stopped taking med Clonazepam* (Klonopin*), 0.5 MG ORAL Q6H, (Reported) Discontinued Reason: Therapy completed Cran/Vitc/Mannose/Inulin/Brom (Uti-Stat Liquid), 30 ML GT BID, (Reported) Discontinued Reason: Therapy completed Docusate Sodium* (Colace*), 100 MG GT DAILY, (Reported) Discontinued Reason: Therapy completed Heparin Sodium,Porcine/Ns/Pf (Heparin), 2,000 UNIT IV, (Reported) Discontinued Reason: Pt stopped taking med Lorazepam* (Lorazepam*), 0.5 MG GT Q6HR PRN for For Anxiety, (Reported) Discontinued Reason: Pt stopped taking med Melatonin (Melatonin), Unknown Dose GT BEDTIME, (Reported) Discontinued Reason: Prescription changed Multivitamin Liquid* (Multi-Delyn*), 5 ML GT DAILY, (Reported) Discontinued Reason: Prescription changed Na Phos,M-B/Na Phos,Di-Ba* (Fleet Enema*), 133 ML RECTAL DAILY, (Reported) Discontinued Reason: Therapy completed Omeprazole (Omeprazole), 20 MG GT DAILY, (Reported) Discontinued Reason: Therapy completed Ondansetron* (Zofran*), 4 MG IM Q6H PRN for Nausea & Vomiting, (Reported) Discontinued Reason: Therapy completed Pantoprazole* (Protonix*), 40 MG GT DAILY, (Reported) Discontinued Reason: Pt stopped taking med Trazodone Hcl* (Desyrel*), 50 MG GT BEDTIME PRN for insomnia, (Reported) Discontinued Reason: Therapy completed Patient History Healthcare decision maker Resuscitation status Full Code Advanced Directive on File Physical Exam Last 24 Hour Vital Signs Date Time Temp Pulse Resp B/P (MAP) Pulse Ox O2 Delivery O2 Flow Rate FiO2 08/09/19 04:06 5.0 28 08/09/19 04:00 99.7 90 25 100/65 (77) 98 08/09/19 01:15 99.0 08/09/19 01:07 98 Cool Aerosol 5.0 28 08/09/19 00:00 99.0 60 20 123/60 (81) 96 08/08/19 21:56 5.0 28 08/08/19 21:55 Trach Collar 5.0 08/08/19 20:00 99.0 73 20 126/82 (97) 94 08/08/19 19:25 99 Cool Aerosol 5.0 28 08/08/19 16:48 100.9 112 18 149/64 (92) 94 08/08/19 16:08 5.0 28 08/08/19 13:24 99 Cool Aerosol 5.0 28 08/08/19 12:09 99.4 102 22 125/72 (89) 94 08/08/19 12:09 5.0 28 08/08/19 09:43 Trach Collar 5.0 08/08/19 08:00 5.0 28 08/08/19 08:00 100.4 88 22 140/83 (102) 98 08/08/19 07:00 96 Cool Aerosol 5.0 28 Intake and Output 08/08/19 08/09/19 19:00 07:00 Intake Total 980 ml Output Total 600 ml Balance 380 ml Free Water 200 ml IV Total 780 ml Output Urine Total 600 ml # Voids 2 # Bowel Movements 2 Laboratory Tests Test 08/08/19 06:30 White Blood Count 8.7 K/UL (4.8-10.8) Red Blood Count 2.77 M/UL (4.20-5.40) L Hemoglobin 8.2 G/DL (12.0-16.0) L Hematocrit 25.9 % (37.0-47.0) L Mean Corpuscular Volume 94 FL (80-99) Mean Corpuscular Hemoglobin 29.5 PG (27.0-31.0) Mean Corpuscular Hemoglobin Concent 31.5 G/DL (32.0-36.0) L Red Cell Distribution Width 13.0 % (11.6-14.8) Platelet Count 182 K/UL (150-450) Mean Platelet Volume 9.3 FL (6.5-10.1) Neutrophils (%) (Auto) 64.9 % (45.0-75.0) Lymphocytes (%) (Auto) 23.6 % (20.0-45.0) Monocytes (%) (Auto) 5.9 % (1.0-10.0) Eosinophils (%) (Auto) 5.2 % (0.0-3.0) H Basophils (%) (Auto) 0.5 % (0.0-2.0) Erythrocyte Sedimentation Rate 132 MM/HR (0-30) H Sodium Level 151 MMOL/L (136-145) H Potassium Level 3.2 MMOL/L (3.5-5.1) L Chloride Level 116 MMOL/L (98-107) H Carbon Dioxide Level 27 MMOL/L (21-32) Anion Gap 8 mmol/L (5-15) Blood Urea Nitrogen 23 mg/dL (7-18) H Creatinine 1.3 MG/DL (0.55-1.30) Estimat Glomerular Filtration Rate mL/min (>60) Glucose Level 114 MG/DL (74-106) H Calcium Level 9.2 MG/DL (8.5-10.1) Phosphorus Level 3.0 MG/DL (2.5-4.9) Magnesium Level 2.1 MG/DL (1.8-2.4) Total Bilirubin 0.6 MG/DL (0.2-1.0) Aspartate Amino Transf (AST/SGOT) 23 U/L (15-37) Alanine Aminotransferase (ALT/SGPT) 33 U/L (12-78) Alkaline Phosphatase 99 U/L (46-116) C-Reactive Protein, Quantitative 4.0 mg/dL (0.00-0.90) H Total Protein 8.0 G/DL (6.4-8.2) Albumin 2.5 G/DL (3.4-5.0) L Globulin 5.5 g/dL Albumin/Globulin Ratio 0.5 (1.0-2.7) L Height (Feet): 5 Height (Inches): 8.00 Weight (Pounds): 126 Medications Current Medications Medications (Trade) Dose Ordered Sig/Torsten Route PRN Reason Start Time Stop Time Status Last Admin Dose Admin Acetaminophen (Tylenol) 650 mg Q4H PRN GT fever (temp>100.5F) 08/06/19 20:00 09/05/19 19:59 08/09/19 00:37 Acetaminophen (Tylenol) 650 mg Q4H PRN GT headache, mild pain 08/06/19 20:00 09/05/19 19:59 Albuterol/ Ipratropium (Albuterol/ Ipratropium) 3 ml Q4H PRN HHN Shortness of Breath 08/06/19 20:00 08/11/19 19:59 Ascorbic Acid (Vitamin C) 250 mg TWICE A DAY GT 08/07/19 09:00 09/06/19 08:59 08/08/19 17:08 Clonazepam (KlonoPIN) 0.5 mg Q6HR GT 08/07/19 00:00 08/13/19 07:01 08/09/19 05:29 Dextrose 1,000 ml @ 85 mls/hr [id number] IV 08/08/19 12:24 09/06/19 12:23 08/09/19 00:32 Heparin Sodium (Porcine) (Heparin 5000 units/ml) 5,000 units EVERY 12 HOURS SUBQ 08/06/19 21:00 09/05/19 08:59 08/08/19 21:27 Levothyroxine Sodium (Synthroid) 125 mcg Q24H GT 08/07/19 06:30 09/06/19 06:29 08/09/19 05:29 Memantine (Namenda) 5 mg BID ORAL 08/08/19 09:00 09/07/19 08:59 08/08/19 17:08 Meropenem 1 gm/ Sodium Chloride 55 ml @ 110 mls/hr Q12H IVPB 08/08/19 14:00 08/13/19 13:59 08/09/19 02:03 Nitroglycerin (Ntg) 0.4 mg Q5M PRN SL Prn Chest Pain 08/06/19 19:00 09/05/19 06:59 Ondansetron HCl (Zofran) 4 mg Q6H PRN IVP Nausea & Vomiting 08/06/19 19:00 09/05/19 06:59 Pantoprazole (Protonix) 40 mg EVERY 12 HOURS IVP 08/06/19 21:00 09/05/19 10:59 08/08/19 21:26 Polyethylene Glycol (Miralax) 17 gm DAILYPRN PRN GT Constipation 08/06/19 20:00 09/05/19 19:59 Potassium Chloride (K-Dur) 40 meq TWICE A DAY GT 08/08/19 09:30 09/07/19 09:29 08/08/19 17:07 Promethazine HCl/ Codeine (Phenergan with Codeine) 5 ml Q4H PRN GT For Cough 08/06/19 19:00 09/05/19 06:59 Temazepam (Restoril) 15 mg HSPRN PRN GT Insomnia 08/06/19 21:00 08/13/19 20:59 Trazodone HCl (Desyrel) 50 mg BEDTIME PRN GT insomnia 08/06/19 21:00 09/05/19 06:59 Vancomycin HCl (Vanco rx to dose) 1 ea DAILY PRN MISC Per rx protocol 08/07/19 09:00 09/05/19 18:29 Assessment/Plan Assessment/Plan: Hematology Consultation REQ MD: Waldemar Humphries DOS: 08/09/19 Chief Complaint: Dyspnea/Respdistress, High Na RFC: Anemia eval, progressive HPI Called by Dr. Humphries 84y old female, well known to me, Patient has a history of encephalopathy. 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 Patient was noted to have acute desaturation. No further history is available other than the history obtained per the paramedics as patient is nonverbal. Symptoms noted to be severe. No other modifying factors. No other associated signs and symptoms. No other complaints were noted. At this time admitted for high Na, as well as infection, likely uti, has improved since admission, but progressive anemia, gi and heme consulted. Coded Allergies: ASPIRIN (Verified Allergy, Unknown, 07/07/17) Past Medical History: HTN, arrhyth, COPD, dementia, other - G-tube PMH Narrative Encephalopathy quadriplegia Past Surgical History: other - Tracheostomy, G-tube Social History Narrative Patient stays at a senior living facility Now: No Reviewed Nursing Documentation: PMH: Agreed; PSxH: Agreed Past Medical History: No History, Except For Hx Cardiac Problems: Yes - Arrythmia Hx Hypertension: Yes Hx COPD: Yes Hx Cancer: No Hx Gastrointestinal Problems: Yes - G-tube Hx Dialysis: No Hx Neurological Problems: Yes - Encephalopathy, Qudrplegia Hx Cerebrovascular Accident: Yes Hx Dementia: Yes Hx Seizures: Yes - epilepsy Hx Epilepsy: Yes ROS: limited - Poor mental status PE Vital Signs reviewed General: lethargic, obese, Stupor Head: at Neck: supple Respiratory: +trach Cardiovascular: tachycardia Gastrointestinal: G-tube in place Msk: Contractures lower extremities Assessment and Recs: # Anemia of chronic disease due to underlying chronic medical issues, multifactorial --> Anemia workup has been ordered, rule out gi bleed --> ferritin is 610--?853 --> No evidence of hemolysis is noted, peripheral smear has been reviewed. --> Hgb goal >7. Transfuse prn. --> Epogen or iron at this time is not particularly indicated --> Medications have been reviewed --> evaluate with Gi team prn --> currently dnr, HOLDING OFF colo and egd --> transfuse if hgb is < 7 (will trend CBC daily) --> stool ob is negative --> hgb trend 8.3 # Leukocytosis on admission due to sepsis --> due to uti per id --> on vanc/cefe # Acute on chronic Renal failure --> per renal --> cr has improved --> 1.6-->1.3 # Acute on chronic respiratory failure s/p trach with revision --> Pneumothorax s/p chest tube HISTory # UTI # HypoAlbuminemia # HTN # PEG with Fecal impaction # Dvt ppx scds/heparin The timing of this note does not necessarily reflect the time of the patient was seen. Greatly appreciate consultation! iMcha Torres MD Aug 09, 2019 06:24
[2019-08-09 07:28] LABS: INR 1.2 (0.9-1.1)
[2019-08-09 07:30] LABS: BASOPHILS % (AUTO) 0.4 % (0.0-2.0); EOSINOPHILS % (AUTO) 4.2 % (0.0-3.0); HEMATOCRIT 26.8 % (37.0-47.0); HEMOGLOBIN 8.5 G/DL (12.0-16.0); LYMPHOCYTES % (AUTO) 19.5 % (20.0-45.0); MEAN CORPUSCULAR VOLUME 92 FL (80-99); NEUTROPHILS % (AUTO) 68.9 % (45.0-75.0); PLATELET COUNT 186 K/UL (150-450); RED CELL DISTRIBUTION WIDTH 12.6 % (11.6-14.8); WHITE BLOOD COUNT 8.3 K/UL (4.8-10.8)
[2019-08-09 07:47] LABS: ALANINE AMINOTRANSFERASE 62 U/L (12-78); ALBUMIN 2.3 G/DL (3.4-5.0); ALBUMIN/GLOBULIN RATIO 0.4 (1.0-2.7); ALKALINE PHOSPHATASE 106 U/L (46-116); ANION GAP 10 mmol/L (5-15); ASPARTATE AMINO TRANSFERASE 49 U/L (15-37); BILIRUBIN,TOTAL 0.6 MG/DL (0.2-1.0); BLOOD UREA NITROGEN 17 mg/dL (7-18); CALCIUM 8.9 MG/DL (8.5-10.1); CARBON DIOXIDE 23 MMOL/L (21-32); CHLORIDE 112 MMOL/L (98-107); CREATININE 1.4 MG/DL (0.55-1.30); POTASSIUM 3.4 MMOL/L (3.5-5.1); SODIUM 145 MMOL/L (136-145)
[2019-08-09 08:00] VITALS: BP 101/41
[2019-08-09 08:09] LABS: PHOSPHORUS 2.9 MG/DL (2.5-4.9)
[2019-08-09] MEDS ORDERED: Vancomycin 1gm/D5W 275ml IVPB SCH ×2 (08:30)
[2019-08-09] MEDS ORDERED: Vancomycin 1gm/D5W 275ml IVPB ONE ×2 (09:00)
--- NOTE | 2019-08-09 09:26 | General Progress Note ---
Assessment/Plan Problem List: (1) Decubitus skin ulcer ICD Codes: L89.90 - Pressure ulcer of unspecified site, unspecified stage SNOMED: 307365562 (2) Hypernatremia ICD Codes: E87.0 - Hyperosmolality and hypernatremia SNOMED: 07416661 (3) Hypotension ICD Codes: I95.9 - Hypotension, unspecified SNOMED: 01689722 (4) Anemia ICD Codes: D64.9 - Anemia, unspecified SNOMED: 763355806 (5) Seizure disorder ICD Codes: G40.909 - Epilepsy, unspecified, not intractable, without status epilepticus SNOMED: 794918962 (6) Septic shock ICD Codes: A41.9 - Sepsis, unspecified organism; R65.21 - Severe sepsis with septic shock SNOMED: 31558458 (7) HTN (hypertension) ICD Codes: I10 - Essential (primary) hypertension SNOMED: 14328128 (8) Cardiomyopathy ICD Codes: I42.9 - Cardiomyopathy, unspecified SNOMED: 11502148 (9) Sepsis ICD Codes: A41.9 - Sepsis, unspecified organism SNOMED: 88026843 Qualifiers: Qualified Codes: A41.9 - Sepsis, unspecified organism (10) Acute and chronic respiratory failure ICD Codes: J96.20 - Acute and chronic respiratory failure, unspecified whether with hypoxia or hypercapnia SNOMED: 70702077 (11) Tracheostomy care ICD Codes: Z43.0 - Encounter for attention to tracheostomy SNOMED: 783709105 (12) Bowel obstruction ICD Codes: K56.609 - Unspecified intestinal obstruction, unspecified as to partial versus complete obstruction SNOMED: 02701174 (13) Feeding by G-tube ICD Codes: Z93.1 - Gastrostomy status SNOMED: 136385112, 980488316 (14) Malfunction of gastrostomy tube ICD Codes: K94.23 - Gastrostomy malfunction SNOMED: 647633202 (15) Chronic respiratory failure ICD Codes: J96.10 - Chronic respiratory failure, unspecified whether with hypoxia or hypercapnia SNOMED: 69459202 Qualifiers: Qualified Codes: J96.10 - Chronic respiratory failure, unspecified whether with hypoxia or hypercapnia (16) Chronic vegetative state ICD Codes: R40.3 - Persistent vegetative state SNOMED: 96235877 (17) Nosocomial pneumonia ICD Codes: J18.9 - Pneumonia, unspecified organism SNOMED: 012470349 (18) Fecal impaction ICD Codes: K56.41 - Fecal impaction SNOMED: 96696859 (19) ATN (acute tubular necrosis) ICD Codes: N17.0 - Acute kidney failure with tubular necrosis SNOMED: 40757863 (20) Ileus ICD Codes: K56.7 - Ileus, unspecified SNOMED: 140690152 (21) Acute on chronic renal failure ICD Codes: N17.9 - Acute kidney failure, unspecified; N18.9 - Chronic kidney disease, unspecified SNOMED: 500178814 (22) UTI (urinary tract infection) ICD Codes: N39.0 - Urinary tract infection, site not specified SNOMED: 45830158 (23) Anemia ICD Codes: D64.9 - Anemia, unspecified SNOMED: 145226195 Status: unchanged Assessment/Plan: o2 pulm tx trach care abx diet cbc bmp am heme gi eval Subjective Constitutional: Reports: weakness Allergies: Coded Allergies: ASPIRIN (Verified Allergy, Unknown, 07/07/17) All Systems: reviewed and negative except above Subjective trach aerosol calm Objective Last 24 Hour Vital Signs Date Time Temp Pulse Resp B/P (MAP) Pulse Ox O2 Delivery O2 Flow Rate FiO2 08/09/19 08:20 97 Cool Aerosol 5.0 08/09/19 04:06 5.0 28 08/09/19 04:00 99.7 90 25 100/65 (77) 98 08/09/19 01:15 99.0 08/09/19 01:07 98 Cool Aerosol 5.0 28 08/09/19 00:00 99.0 60 20 123/60 (81) 96 08/08/19 21:56 5.0 28 08/08/19 21:55 Trach Collar 5.0 08/08/19 20:00 99.0 73 20 126/82 (97) 94 08/08/19 19:25 99 Cool Aerosol 5.0 28 08/08/19 16:48 100.9 112 18 149/64 (92) 94 08/08/19 16:08 5.0 28 08/08/19 13:24 99 Cool Aerosol 5.0 28 08/08/19 12:09 99.4 102 22 125/72 (89) 94 12/12/19 12:09 5.0 28 08/08/19 09:43 Trach Collar 5.0 Intake and Output 08/08/19 08/09/19 19:00 07:00 Intake Total 980 ml 200 ml Output Total 600 ml 700 ml Balance 380 ml -500 ml Intake Oral 100 ml Free Water 200 ml 100 ml IV Total 780 ml Output Urine Total 600 ml 700 ml # Voids 2 1 # Bowel Movements 2 1 Laboratory Tests 08/09/19 06:24: White Blood Count 8.3, Red Blood Count 2.90L, Hemoglobin 8.5L, Hematocrit 26.8L , Mean Corpuscular Volume 92, Mean Corpuscular Hemoglobin 29.3, Mean Corpuscular Hemoglobin Concent 31.7L, Red Cell Distribution Width 12.6, Platelet Count 186, Mean Platelet Volume 8.0, Neutrophils (%) (Auto) 68.9, Lymphocytes (%) (Auto) 19.5L, Monocytes (%) (Auto) 7.0, Eosinophils (%) (Auto) 4.2H, Basophils (%) (Auto) 0.4, Prothrombin Time 12.8H, Prothromb Time International Ratio 1.2H, Activated Partial Thromboplast Time 30, Sodium Level 145, Potassium Level 3.4L, Chloride Level 112H, Carbon Dioxide Level 23, Anion Gap 10, Blood Urea Nitrogen 17, Creatinine 1.4H, Estimat Glomerular Filtration Rate , Glucose Level 100, Uric Acid 4.8, Calcium Level 8.9, Phosphorus Level 2.9 , Magnesium Level 1.8, Total Bilirubin 0.6, Aspartate Amino Transf (AST/SGOT) 49H, Alanine Aminotransferase (ALT/SGPT) 62, Alkaline Phosphatase 106, C- Reactive Protein, Quantitative 6.6H, Total Protein 7.9, Albumin 2.3L, Globulin 5.6, Albumin/Globulin Ratio 0.4L, Random Vancomycin Level 5.1 Height (Feet): 5 Height (Inches): 8.00 Weight (Pounds): 126 General Appearance: lethargic EENT: normal ENT inspection Neck: normal alignment Cardiovascular: normal peripheral pulses, normal rate, regular rhythm Respiratory/Chest: chest wall non-tender, lungs clear, normal breath sounds Abdomen: normal bowel sounds, non tender, soft Extremities: normal inspection Edema: no edema noted Arm (L), no edema noted Arm (R), no edema noted Leg (L), no edema noted Leg (R), no edema noted Pedal (L), no edema noted Pedal (R), no edema noted Generalized Neurologic: motor weakness Skin: normal pigmentation, warm/dry Rl White DO Aug 09, 2019 09:26
--- NOTE | 2019-08-09 09:30 | NUR ---
NURSE NOTES: Contacted public guardian about EGD/Colonoscopy consent. She stated she faxed over POLST and requested MD review it first to see if procedure is necessary and able to do with POLST status. LUCA French made aware.
--- NOTE | 2019-08-09 09:34 | General Progress Note ---
Assessment/Plan Problem List: (1) Acute on chronic renal failure ICD Codes: N17.9 - Acute kidney failure, unspecified; N18.9 - Chronic kidney disease, unspecified SNOMED: 706803947 (2) Chronic vegetative state ICD Codes: R40.3 - Persistent vegetative state SNOMED: 20247487 (3) Chronic respiratory failure ICD Codes: J96.10 - Chronic respiratory failure, unspecified whether with hypoxia or hypercapnia SNOMED: 92454989 Qualifiers: Qualified Codes: J96.10 - Chronic respiratory failure, unspecified whether with hypoxia or hypercapnia (4) Feeding by G-tube ICD Codes: Z93.1 - Gastrostomy status SNOMED: 866883428, 865507937 (5) HTN (hypertension) ICD Codes: I10 - Essential (primary) hypertension SNOMED: 79625275 (6) Anemia ICD Codes: D64.9 - Anemia, unspecified SNOMED: 785486544 Status: unchanged Assessment/Plan: EGD and colonoscopy on hold for now d/w with public guardian patient is DNR with limited interventions must be reviewed prior decision send occult blood stool to evaluate for GI bleed monitor H&H, prn transfusions PPI daily IV + PO hydration and electrolyte correction per nephro colace and miralax Subjective ROS Limited/Unobtainable: No Allergies: Coded Allergies: ASPIRIN (Verified Allergy, Unknown, 07/07/17) Objective Last 24 Hour Vital Signs Date Time Temp Pulse Resp B/P (MAP) Pulse Ox O2 Delivery O2 Flow Rate FiO2 08/09/19 08:20 97 Cool Aerosol 5.0 28 08/09/19 04:06 5.0 28 08/09/19 04:00 99.7 90 25 100/65 (77) 98 08/09/19 01:15 99.0 08/09/19 01:07 98 Cool Aerosol 5.0 28 08/09/19 00:00 99.0 60 20 123/60 (81) 96 08/08/19 21:56 5.0 28 08/08/19 21:55 Trach Collar 5.0 08/08/19 20:00 99.0 73 20 126/82 (97) 94 08/08/19 19:25 99 Cool Aerosol 5.0 28 08/08/19 16:48 100.9 112 18 149/64 (92) 94 08/08/19 16:08 5.0 28 08/08/19 13:24 99 Cool Aerosol 5.0 28 08/08/19 12:09 99.4 102 22 125/72 (89) 94 08/08/19 12:09 5.0 28 08/08/19 09:43 Trach Collar 5.0 Intake and Output 08/08/19 08/09/19 19:00 07:00 Intake Total 980 ml 200 ml Output Total 600 ml 700 ml Balance 380 ml -500 ml Intake Oral 100 ml Free Water 200 ml 100 ml IV Total 780 ml Output Urine Total 600 ml 700 ml # Voids 2 1 # Bowel Movements 2 1 Laboratory Tests 08/09/19 06:24: White Blood Count 8.3, Red Blood Count 2.90L, Hemoglobin 8.5L, Hematocrit 26.8L , Mean Corpuscular Volume 92, Mean Corpuscular Hemoglobin 29.3, Mean Corpuscular Hemoglobin Concent 31.7L, Red Cell Distribution Width 12.6, Platelet Count 186, Mean Platelet Volume 8.0, Neutrophils (%) (Auto) 68.9, Lymphocytes (%) (Auto) 19.5L, Monocytes (%) (Auto) 7.0, Eosinophils (%) (Auto) 4.2H, Basophils (%) (Auto) 0.4, Prothrombin Time 12.8H, Prothromb Time International Ratio 1.2H, Activated Partial Thromboplast Time 30, Sodium Level 145, Potassium Level 3.4L, Chloride Level 112H, Carbon Dioxide Level 23, Anion Gap 10, Blood Urea Nitrogen 17, Creatinine 1.4H, Estimat Glomerular Filtration Rate , Glucose Level 100, Uric Acid 4.8, Calcium Level 8.9, Phosphorus Level 2.9 , Magnesium Level 1.8, Total Bilirubin 0.6, Aspartate Amino Transf (AST/SGOT) 49H, Alanine Aminotransferase (ALT/SGPT) 62, Alkaline Phosphatase 106, C- Reactive Protein, Quantitative 6.6H, Total Protein 7.9, Albumin 2.3L, Globulin 5.6, Albumin/Globulin Ratio 0.4L, Random Vancomycin Level 5.1 Height (Feet): 5 Height (Inches): 8.00 Weight (Pounds): 126 General Appearance: no apparent distress EENT: PERRL/EOMI Neck: supple Cardiovascular: normal rate Respiratory/Chest: decreased breath sounds Abdomen: non tender, soft Extremities: non-tender Jad Skinner MD Aug 09, 2019 09:34
[2019-08-09] MEDS: Pantoprazole Inj IVP SCH ×2 (09:54→22:03)
[2019-08-09] MEDS: Memantine 5 MG TAB ORAL SCH ×2 (09:55→17:51)
[2019-08-09] MEDS: Ascorbic Acid 500mg tab GT SCH ×2 (09:55→17:51)
[2019-08-09] MEDS: Heparin 5000 units/ml inj SUBQ SCH ×2 (09:57→22:02)
--- NOTE | 2019-08-09 11:26 | NUR ---
NURSE NOTES: Suctioned patient. Patient tolerated well.
--- NOTE | 2019-08-09 11:31 | NUR ---
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 97.0 HR 106 RR 18 B/P 101/41 TRACH 28% K 3.4 CR 1.4 IS: MEROPENEM IV KCL IV X 1 VANCO IV X1 MED/SURG STATUS
[2019-08-09 12:00] VITALS: BP 124/61
--- NOTE | 2019-08-09 12:15 | NUR ---
RD ASSESSMENT & RECOMMENDATIONS SEE CARE ACTIVITY FOR COMPLETE ASSESSMENT DAILY ESTIMATED NEEDS: Needs based on Wound, pulmonary 59.8kg 30-35 kcals/kg 5200-2835 total kcals 1.25-1.5 g protein/kg 75-90 g total protein 25-30ml/kcal mL/kg 0244-9047 total fluid mLs NUTRITION DIAGNOSIS: * Swallowing difficulty R/T respiratory status, dysphagia as evidenced by pt is vent dep via T-collar + PEG dep, on GT feeds. * Increased kcal/prot needs R/T wound healing as evidenced by pt admitted w/ multiple wounds, including unstageable pressure injury at sacrum, reabsorbed DTPI at L heel, necrotic area at inferior but in close proximity to medial L malleolus, non-blanching erythema at L 1st metatarsal head and lateral aspect. CURRENT TF:Jevity 1.2 @ 80ml/hr x 22 hrs ENTERAL NUTRITION RECOMMENDATIONS: LOWER TF GOAL RATE -> Jevity 1.2 @ 70ml/hr x 22 hrs to provide 1540ml, 1848 kcal, 85g pro, 1243ml free water - LOWER TF goal rate to 70ml/hr x 22 hrs -> meets 100% est kcal/prot needs - HOLD TF 1 hr before and after Synthroid med - HOB >30 degrees - H20 flush of 120ml q 6 hrs (without IVF) - TF @ goal provides 100% of RDI. ADDITIONAL RECOMMENDATIONS: 1) Calibrated bedscale wts 2) Monitor lytes daily, replete as needed 3) Wound healing: continue Vit C Add Tommie 1pkt in 4oz H2O BID . . .
--- NOTE | 2019-08-09 13:00 | NUR ---
NURSE NOTES: Started gtube feeding per [employer] Gillian. Jevity 1.2 at 20cc/hour with a goal of 80cc/hour.
--- NOTE | 2019-08-09 13:30 | Pulmonology Progress Note ---
Assessment/Plan Problems: (1) Nosocomial pneumonia (2) Acute on chronic renal failure (3) Chronic respiratory failure (4) Tracheostomy care (5) Cardiomyopathy (6) Seizure disorder (7) Feeding by G-tube (8) Chronic vegetative state Assessment/Plan check cultures iv abx Na getting better, increase D5w to 150 cc/hour\ continue gtube feeding tracheostomy care dvt prophylaxis all meds reviewed. Subjective ROS Limited/Unobtainable: No Constitutional: Reports: no symptoms HEENT: Repors: no symptoms Respiratory: Reports: no symptoms Allergies: Coded Allergies: ASPIRIN (Verified Allergy, Unknown, 07/07/17) Objective Last 24 Hour Vital Signs Date Time Temp Pulse Resp B/P (MAP) Pulse Ox O2 Delivery O2 Flow Rate FiO2 08/09/19 13:00 98 Cool Aerosol 5.0 28 08/09/19 09:00 Trach Collar 5.0 08/09/19 08:20 97 Cool Aerosol 5.0 28 08/09/19 08:00 5.0 28 08/09/19 08:00 97.0 106 18 101/41 (61) 98 08/09/19 04:06 5.0 28 08/09/19 04:00 99.7 90 25 100/65 (77) 98 08/09/19 01:15 99.0 08/09/19 01:07 98 Cool Aerosol 5.0 28 08/09/19 00:00 99.0 60 20 123/60 (81) 96 08/08/19 21:56 5.0 28 08/08/19 21:55 Trach Collar 5.0 08/08/19 20:00 99.0 73 20 126/82 (97) 94 08/08/19 19:25 99 Cool Aerosol 5.0 28 08/08/19 16:48 100.9 112 18 149/64 (92) 94 08/08/19 16:08 5.0 28 Intake and Output 08/08/19 08/09/19 19:00 07:00 Intake Total 980 ml 200 ml Output Total 600 ml 700 ml Balance 380 ml -500 ml Intake Oral 100 ml Free Water 200 ml 100 ml IV Total 780 ml Output Urine Total 600 ml 700 ml # Voids 2 1 # Bowel Movements 2 1 General Appearance: WD/WN HEENT: normocephalic, anicteric Respiratory/Chest: chest wall non-tender, lungs clear Breasts: no masses Cardiovascular: normal peripheral pulses Abdomen: normal bowel sounds, soft, non tender Genitourinary: normal external genitalia Extremities: no clubbing Skin: no rash Laboratory Tests 08/09/19 06:24: White Blood Count 8.3, Red Blood Count 2.90L, Hemoglobin 8.5L, Hematocrit 26.8L , Mean Corpuscular Volume 92, Mean Corpuscular Hemoglobin 29.3, Mean Corpuscular Hemoglobin Concent 31.7L, Red Cell Distribution Width 12.6, Platelet Count 186, Mean Platelet Volume 8.0, Neutrophils (%) (Auto) 68.9, Lymphocytes (%) (Auto) 19.5L, Monocytes (%) (Auto) 7.0, Eosinophils (%) (Auto) 4.2H, Basophils (%) (Auto) 0.4, Prothrombin Time 12.8H, Prothromb Time International Ratio 1.2H, Activated Partial Thromboplast Time 30, Sodium Level 145, Potassium Level 3.4L, Chloride Level 112H, Carbon Dioxide Level 23, Anion Gap 10, Blood Urea Nitrogen 17, Creatinine 1.4H, Estimat Glomerular Filtration Rate , Glucose Level 100, Uric Acid 4.8, Calcium Level 8.9, Phosphorus Level 2.9 , Magnesium Level 1.8, Total Bilirubin 0.6, Aspartate Amino Transf (AST/SGOT) 49H, Alanine Aminotransferase (ALT/SGPT) 62, Alkaline Phosphatase 106, C- Reactive Protein, Quantitative 6.6H, Total Protein 7.9, Albumin 2.3L, Globulin 5.6, Albumin/Globulin Ratio 0.4L, Random Vancomycin Level 5.1 Current Medications Medications (Trade) Dose Ordered Sig/Torsten Route PRN Reason Start Time Stop Time Status Last Admin Dose Admin Acetaminophen (Tylenol) 650 mg Q4H PRN GT fever (temp>100.5F) 08/06/19 20:00 09/05/19 19:59 08/09/19 00:37 Acetaminophen (Tylenol) 650 mg Q4H PRN GT headache, mild pain 08/06/19 20:00 09/05/19 19:59 Albuterol/ Ipratropium (Albuterol/ Ipratropium) 3 ml Q4H PRN HHN Shortness of Breath 08/06/19 20:00 08/11/19 19:59 Ascorbic Acid (Vitamin C) 250 mg TWICE A DAY GT 08/07/19 09:00 09/06/19 08:59 08/09/19 09:55 Clonazepam (KlonoPIN) 0.5 mg Q6HR GT 08/07/19 00:00 08/13/19 07:01 08/09/19 05:29 Dextrose 1,000 ml @ 50 mls/hr Q20H IV 08/09/19 09:00 09/06/19 08:59 Docusate Sodium (Colace) 100 mg TWICE A DAY ORAL 08/09/19 18:00 09/08/19 17:59 Heparin Sodium (Porcine) (Heparin 5000 units/ml) 5,000 units EVERY 12 HOURS SUBQ 08/06/19 21:00 09/05/19 08:59 08/09/19 09:57 Levothyroxine Sodium (Synthroid) 125 mcg Q24H GT 08/07/19 06:30 09/06/19 06:29 08/09/19 05:29 Memantine (Namenda) 5 mg BID ORAL 08/08/19 09:00 09/07/19 08:59 08/09/19 09:55 Meropenem 1 gm/ Sodium Chloride 55 ml @ 110 mls/hr Q12H IVPB 08/08/19 14:00 08/13/19 13:59 08/09/19 02:03 Nitroglycerin (Ntg) 0.4 mg Q5M PRN SL Prn Chest Pain 08/06/19 19:00 09/05/19 06:59 Ondansetron HCl (Zofran) 4 mg Q6H PRN IVP Nausea & Vomiting 08/06/19 19:00 09/05/19 06:59 Pantoprazole (Protonix) 40 mg EVERY 12 HOURS IVP 08/06/19 21:00 09/05/19 10:59 08/09/19 09:54 Polyethylene Glycol (Miralax) 17 gm DAILYPRN PRN GT Constipation 08/06/19 20:00 09/05/19 19:59 Potassium Chloride (K-Dur) 40 meq TWICE A DAY GT 08/08/19 09:30 09/07/19 09:29 08/09/19 09:55 Promethazine HCl/ Codeine (Phenergan with Codeine) 5 ml Q4H PRN GT For Cough 08/06/19 19:00 09/05/19 06:59 Temazepam (Restoril) 15 mg HSPRN PRN GT Insomnia 08/06/19 21:00 08/13/19 20:59 Trazodone HCl (Desyrel) 50 mg BEDTIME PRN GT insomnia 08/06/19 21:00 09/05/19 06:59 Vancomycin HCl (Vanco rx to dose) 1 ea DAILY PRN MISC Per rx protocol 08/07/19 09:00 09/05/19 18:29 Sue Yu MD Aug 09, 2019 13:30
--- NOTE | 2019-08-09 13:36 | Nephrology Progress Note ---
Assessment/Plan Problem List: (1) Dehydration Assessment: improving (2) Hypernatremia Assessment: improving (3) Anemia (4) Seizure disorder (5) UTI (urinary tract infection) (6) Hypothyroidism Assessment Renal failure mainly prerenal dehydration / Hypernatremia free water deficit Anemia PEG UTI / Pneumonia HypoThyroidism Plan K supplement D5W IV Smith blood sugar check monitor renal parameters Subjective ROS Limited/Unobtainable: No Constitutional: Reports: malaise, weakness Objective Objective Last 24 Hour Vital Signs Date Time Temp Pulse Resp B/P (MAP) Pulse Ox O2 Delivery O2 Flow Rate FiO2 08/09/19 13:00 98 Cool Aerosol 5.0 28 08/09/19 09:00 Trach Collar 5.0 08/09/19 08:20 97 Cool Aerosol 5.0 28 08/09/19 08:00 5.0 28 08/09/19 08:00 97.0 106 18 101/41 (61) 98 08/09/19 04:06 5.0 28 08/09/19 04:00 99.7 90 25 100/65 (77) 98 08/09/19 01:15 99.0 08/09/19 01:07 98 Cool Aerosol 5.0 28 08/09/19 00:00 99.0 60 20 123/60 (81) 96 08/08/19 21:56 5.0 28 08/08/19 21:55 Trach Collar 5.0 08/08/19 20:00 99.0 73 20 126/82 (97) 94 08/08/19 19:25 99 Cool Aerosol 5.0 28 08/08/19 16:48 100.9 112 18 149/64 (92) 94 08/08/19 16:08 5.0 28 Intake and Output 08/08/19 08/09/19 19:00 07:00 Intake Total 980 ml 200 ml Output Total 600 ml 700 ml Balance 380 ml -500 ml Intake Oral 100 ml Free Water 200 ml 100 ml IV Total 780 ml Output Urine Total 600 ml 700 ml # Voids 2 1 # Bowel Movements 2 1 Laboratory Tests 08/09/19 06:24: White Blood Count 8.3, Red Blood Count 2.90L, Hemoglobin 8.5L, Hematocrit 26.8L , Mean Corpuscular Volume 92, Mean Corpuscular Hemoglobin 29.3, Mean Corpuscular Hemoglobin Concent 31.7L, Red Cell Distribution Width 12.6, Platelet Count 186, Mean Platelet Volume 8.0, Neutrophils (%) (Auto) 68.9, Lymphocytes (%) (Auto) 19.5L, Monocytes (%) (Auto) 7.0, Eosinophils (%) (Auto) 4.2H, Basophils (%) (Auto) 0.4, Prothrombin Time 12.8H, Prothromb Time International Ratio 1.2H, Activated Partial Thromboplast Time 30, Sodium Level 145, Potassium Level 3.4L, Chloride Level 112H, Carbon Dioxide Level 23, Anion Gap 10, Blood Urea Nitrogen 17, Creatinine 1.4H, Estimat Glomerular Filtration Rate , Glucose Level 100, Uric Acid 4.8, Calcium Level 8.9, Phosphorus Level 2.9 , Magnesium Level 1.8, Total Bilirubin 0.6, Aspartate Amino Transf (AST/SGOT) 49H, Alanine Aminotransferase (ALT/SGPT) 62, Alkaline Phosphatase 106, C- Reactive Protein, Quantitative 6.6H, Total Protein 7.9, Albumin 2.3L, Globulin 5.6, Albumin/Globulin Ratio 0.4L, Random Vancomycin Level 5.1 Height (Feet): 5 Height (Inches): 8.00 Weight (Pounds): 126 General Appearance: no apparent distress Cardiovascular: normal rate Respiratory/Chest: decreased breath sounds Abdomen: distended Tono Case MD Aug 09, 2019 13:36
--- NOTE | 2019-08-09 13:49 | NUR ---
NURSE NOTES: Per MD Case, discontinue IV fluid now that patient is on gtube.
--- NOTE | 2019-08-09 14:26 | NUR ---
NURSE NOTES: Received patient on bed, asleep. IV intact and patent. Purewick in place. Gtube intact and patent. Dressings dry and intact. Bed in low and locked position, call light in reach. Trach collar in place and patent. No signs of respiratory distress or pain. Room board updated, will continue to monitor.
--- NOTE | 2019-08-09 14:30 | NUR ---
NURSE NOTES: Suctioned patient. OPatient tolerated well.
--- NOTE | 2019-08-09 14:46 | Surgery Progress Note ---
Surgery Progress Note Subjective Additional Comments code status changed fortunately to remain comfortable ill appearing Objective Last 24 Hour Vital Signs Date Time Temp Pulse Resp B/P (MAP) Pulse Ox O2 Delivery O2 Flow Rate FiO2 08/09/19 13:00 98 Cool Aerosol 5.0 28 08/09/19 12:00 98.4 95 18 124/61 (82) 100 08/09/19 12:00 5.0 28 08/09/19 09:00 Trach Collar 5.0 08/09/19 08:20 97 Cool Aerosol 5.0 28 08/09/19 08:00 5.0 28 08/09/19 08:00 97.0 106 18 101/41 (61) 98 08/09/19 04:06 5.0 28 08/09/19 04:00 99.7 90 25 100/65 (77) 98 08/09/19 01:15 99.0 08/09/19 01:07 98 Cool Aerosol 5.0 28 08/09/19 00:00 99.0 60 20 123/60 (81) 96 08/08/19 21:56 5.0 28 08/08/19 21:55 Trach Collar 5.0 08/08/19 20:00 99.0 73 20 126/82 (97) 94 08/08/19 19:25 99 Cool Aerosol 5.0 28 08/08/19 16:48 100.9 112 18 149/64 (92) 94 08/08/19 16:08 5.0 28 I&O Intake and Output 08/08/19 08/09/19 18:59 06:59 Intake Total 895 ml 285 ml Output Total 600 ml 700 ml Balance 295 ml -415 ml Intake Oral 100 ml Free Water 200 ml 100 ml IV Total 695 ml 85 ml Output Urine Total 600 ml 700 ml # Voids 2 1 # Bowel Movements 2 1 Dressing: saturated Wound: other Drains: other Cardiovascular: RSR Respiratory: clear, decreased breath sounds Abdomen: soft, present bowel sounds, other, non-distended Extremities: no cyanosis, other Laboratory Tests Test 08/09/19 06:24 White Blood Count 8.3 K/UL (4.8-10.8) Red Blood Count 2.90 M/UL (4.20-5.40) L Hemoglobin 8.5 G/DL (12.0-16.0) L Hematocrit 26.8 % (37.0-47.0) L Mean Corpuscular Volume 92 FL (80-99) Mean Corpuscular Hemoglobin 29.3 PG (27.0-31.0) Mean Corpuscular Hemoglobin Concent 31.7 G/DL (32.0-36.0) L Red Cell Distribution Width 12.6 % (11.6-14.8) Platelet Count 186 K/UL (150-450) Mean Platelet Volume 8.0 FL (6.5-10.1) Neutrophils (%) (Auto) 68.9 % (45.0-75.0) Lymphocytes (%) (Auto) 19.5 % (20.0-45.0) L Monocytes (%) (Auto) 7.0 % (1.0-10.0) Eosinophils (%) (Auto) 4.2 % (0.0-3.0) H Basophils (%) (Auto) 0.4 % (0.0-2.0) Prothrombin Time 12.8 SEC (9.30-11.50) H Prothromb Time International Ratio 1.2 (0.9-1.1) H Activated Partial Thromboplast Time 30 SEC (23-33) Sodium Level 145 MMOL/L (136-145) Potassium Level 3.4 MMOL/L (3.5-5.1) L Chloride Level 112 MMOL/L (98-107) H Carbon Dioxide Level 23 MMOL/L (21-32) Anion Gap 10 mmol/L (5-15) Blood Urea Nitrogen 17 mg/dL (7-18) Creatinine 1.4 MG/DL (0.55-1.30) H Estimat Glomerular Filtration Rate mL/min (>60) Glucose Level 100 MG/DL (74-106) Uric Acid 4.8 MG/DL (2.6-7.2) Calcium Level 8.9 MG/DL (8.5-10.1) Phosphorus Level 2.9 MG/DL (2.5-4.9) Magnesium Level 1.8 MG/DL (1.8-2.4) Total Bilirubin 0.6 MG/DL (0.2-1.0) Aspartate Amino Transf (AST/SGOT) 49 U/L (15-37) H Alanine Aminotransferase (ALT/SGPT) 62 U/L (12-78) Alkaline Phosphatase 106 U/L (46-116) C-Reactive Protein, Quantitative 6.6 mg/dL (0.00-0.90) H Total Protein 7.9 G/DL (6.4-8.2) Albumin 2.3 G/DL (3.4-5.0) L Globulin 5.6 g/dL Albumin/Globulin Ratio 0.4 (1.0-2.7) L Random Vancomycin Level 5.1 ug/mL Plan Problems: (1) Sepsis Assessment & Plan: 84-year-old very unfortunate female with multiple medical comorbidities who has leukocytosis, lactic acidosis, likely UTI. Presents with multiple wounds and unstageable decubitus ulcers. Wound evaluated at bedside and unlikely the etiology of patient's sepsis. Leukocytosis lactic sepsis likely due to UTI. Patient currently on IV antibiotics as per infectious disease. Lactic acidosis improving. Exam as above. Care management as presented below. We will continue to follow recommendations. Thank you for allowing me to participate in patient's care. wbc improved. febrile. cultures pending final (2) Tracheostomy care Assessment & Plan: Trach site stable. Respiratory as per pulm (3) Feeding by G-tube Assessment & Plan: DAILY ESTIMATED NEEDS: Needs based on Wound, pulmonary 59.8kg 30-35 kcals/kg [id number] total kcals 1.25-1.5 g protein/kg 75-90 g total protein 25-30ml/kcal mL/kg 8055-3659 total fluid mLs NUTRITION DIAGNOSIS: * Swallowing difficulty R/T respiratory status, dysphagia as evidenced by pt is vent dep via T-collar + PEG dep, NPO at this time * Increased kcal/prot needs R/T wound healing as evidenced by pt admitted w/ full thickness pressure sacral injury, with multiple other wounds, eval pending. (CURRENT TF: NPO) ENTERAL NUTRITION RECOMMENDATIONS: Jevity 1.2 @ 70ml/hr x 22 hrs + Prosource 1pkt QD to provide 1540ml, 1848 kcal, 85g pro, 1243 - As medically able, rec Jevity 1.2, start @30ml/hr for 6 hrs. Advance as tolerated 10ml/hr q4-6 hrs to goal - HOLD TF 1 hr before and after synthroid meds - HOB >30 degrees/ water flushes per MD - TF @ goal provides 100% of RDI. ADDITIONAL RECOMMENDATIONS: 1) Calibrated bedscale wts (EMR wt: 160 lbs vs Bed wt: 131.6lbs) 2) Rec water flushes, 120ml q6 hrs 3) Monitor BGs closely, need for hypoglycemic agents or TF change 4) Wound healing: Vit C 250mg BID Add Tommie 1pkt in 4oz H2O BID 5) F/up w/ H&P and WC eval . (4) Decubitus skin ulcer Assessment & Plan: Pt presented on admission with multiple pressure injuries. Skin assessed under trach collar and no evidence of skin breakdown noted. Unstageable pressure injury noted to sacrum(L)1.5cm x (W)2cm. Base of wound has 75% slough,25%pink granulation. Borders are macerated with surrounding non- blanching erythema. R heel Maroon,fluctuant in center with surrounding dry black borders(L)5.5cm x (W)9cm. Reabsorbed DTPI noted to L heel. Base of wound is Black and dry. Surrounding dry peeling skin without erythema.(L)5.5cm x (W)8.5cm. Inferior but in close proximity to Medial L malleolus necrotic area over bony prominence noted. Base of wound is dry without fluctuance. Periwound without discoloration.(L)1.5cm x (W)1cm. Non-Blanching erythema noted to L 1st metatarsal head and lateral aspect. No elevation in skin temp noted. Tx.Plan: Cleanse Sacral wound with Saline. Apply TheraHoney . Apply Moisture Barrier paste periwound. Cover with Optifoam drsg. Change every 3 days and prn. Apply Betadine to R heel. Cover with Optifoam drsg. Change every 3 days and prn. Apply Betadine to L Heel and Medial L foot. Cover with Optifoam drsg. Change every 3 days and prn. Apply Cavilon Skin Barrier to L 1st metatarsal head and lateral aspect Daily and prn. APM/MARCOS Mattress overlay. Reposition at least every 2hours or as tolerated. Off-load heels with pillow. Place pillow between knees. Livan Dean Aug 09, 2019 14:46
--- NOTE | 2019-08-09 15:36 | Cardiology Report ---
APPROVED REPORT EKG Measurement Heart [id number] Sinus tachycardia with premature atrial complexes Nonspecific ST and T wave abnormality Abnormal ECG
[2019-08-09 16:00] VITALS: BP 115/65
--- NOTE | 2019-08-09 16:16 | NUR ---
NURSE NOTES: Suctioned patient. Patient tolerated well. Changed vacuum container.
--- NOTE | 2019-08-09 16:31 | Infectious Diseases Prog Note ---
Assessment/Plan Assessment/Plan Assessment: Sepsis Probable UTI -u/a wbc tnct; ucx >100k P. mirabilis, probable AMP-c -BCx NTD Probable PNA -08/07 CXR: probably unchanged bilateral diffuse interstitial and airspace disease, right greater than left. Atelectatic changes at the left lung base are again noted. -CXR: Bilateral interstitial disease, may be on the basis of pulmonary edema or may reflect inflammatory changes. This is similar to the previous study of 01/02/2019, 70 may also be a chronic component -influenza sc neg Leukocytosis; SP Low grade fever; mproving Hypernatremia JAMES hx of PNA -12/2018 sp cx PsA -10/2017 MDR PSA, H. flu hx of septic shock with MDRO hx of MDR ABC VAP 2017 hx of b/l pneumothorax 12/2018 HTN seizure disorder Dementia CVA/TIA quadriplegia chronic resp failure s/p trac/vent dependant dysphagia s/p PEG COPD SNF resident Plan: -Continue empiric IV Vancomycin #4 pending sp cx -Continue Meropenem #2 -08/08 SP Cefepime #3 -08/06 SP Zosyn x1 -f/u cx -Monitor CBC/CMP, temperatures -peg/trach care -aspiration precautions Thank you for this consultation. Will continue to follow along with you. Discussed with RN Subjective Allergies: Coded Allergies: ASPIRIN (Verified Allergy, Unknown, 07/07/17) Subjective afebrile >24hrs no leukocytosis Bcx NTD Objective Vital Signs Last 24 Hour Vital Signs Date Time Temp Pulse Resp B/P (MAP) Pulse Ox O2 Delivery O2 Flow Rate FiO2 08/09/19 16:00 97.6 101 18 115/65 (82) 100 08/09/19 13:00 98 Cool Aerosol 5.0 28 08/09/19 12:00 98.4 95 18 124/61 (82) 100 08/09/19 12:00 5.0 28 08/09/19 09:00 Trach Collar 5.0 08/09/19 08:20 97 Cool Aerosol 5.0 28 08/09/19 08:00 5.0 28 08/09/19 08:00 97.0 106 18 101/41 (61) 98 08/09/19 04:06 5.0 28 08/09/19 04:00 99.7 90 25 100/65 (77) 98 08/09/19 01:15 99.0 08/09/19 01:07 98 Cool Aerosol 5.0 28 08/09/19 00:00 99.0 60 20 123/60 (81) 96 08/08/19 21:56 5.0 28 08/08/19 21:55 Trach Collar 5.0 08/08/19 20:00 99.0 73 20 126/82 (97) 94 08/08/19 19:25 99 Cool Aerosol 5.0 28 08/08/19 16:48 100.9 112 18 149/64 (92) 94 Height (Feet): 5 Height (Inches): 8.00 Weight (Pounds): 126 Objective General Appearance: cachetic, thin Lines, tubes and drains: peripheral HEENT: normocephalic, atraumatic Neck: non-tender, supple Respiratory/Chest: chest wall non-tender Cardiovascular/Chest: normal peripheral pulses, normal rate Abdomen: normal bowel sounds, non tender Genitourinary/Rectal: normal genital exam Extremities: normal range of motion Skin Exam: normal pigmentation Laboratory Tests Test 08/09/19 06:24 White Blood Count 8.3 K/UL (4.8-10.8) Red Blood Count 2.90 M/UL (4.20-5.40) L Hemoglobin 8.5 G/DL (12.0-16.0) L Hematocrit 26.8 % (37.0-47.0) L Mean Corpuscular Volume 92 FL (80-99) Mean Corpuscular Hemoglobin 29.3 PG (27.0-31.0) Mean Corpuscular Hemoglobin Concent 31.7 G/DL (32.0-36.0) L Red Cell Distribution Width 12.6 % (11.6-14.8) Platelet Count 186 K/UL (150-450) Mean Platelet Volume 8.0 FL (6.5-10.1) Neutrophils (%) (Auto) 68.9 % (45.0-75.0) Lymphocytes (%) (Auto) 19.5 % (20.0-45.0) L Monocytes (%) (Auto) 7.0 % (1.0-10.0) Eosinophils (%) (Auto) 4.2 % (0.0-3.0) H Basophils (%) (Auto) 0.4 % (0.0-2.0) Prothrombin Time 12.8 SEC (9.30-11.50) H Prothromb Time International Ratio 1.2 (0.9-1.1) H Activated Partial Thromboplast Time 30 SEC (23-33) Sodium Level 145 MMOL/L (136-145) Potassium Level 3.4 MMOL/L (3.5-5.1) L Chloride Level 112 MMOL/L (98-107) H Carbon Dioxide Level 23 MMOL/L (21-32) Anion Gap 10 mmol/L (5-15) Blood Urea Nitrogen 17 mg/dL (7-18) Creatinine 1.4 MG/DL (0.55-1.30) H Estimat Glomerular Filtration Rate mL/min (>60) Glucose Level 100 MG/DL (74-106) Uric Acid 4.8 MG/DL (2.6-7.2) Calcium Level 8.9 MG/DL (8.5-10.1) Phosphorus Level 2.9 MG/DL (2.5-4.9) Magnesium Level 1.8 MG/DL (1.8-2.4) Total Bilirubin 0.6 MG/DL (0.2-1.0) Aspartate Amino Transf (AST/SGOT) 49 U/L (15-37) H Alanine Aminotransferase (ALT/SGPT) 62 U/L (12-78) Alkaline Phosphatase 106 U/L (46-116) C-Reactive Protein, Quantitative 6.6 mg/dL (0.00-0.90) H Total Protein 7.9 G/DL (6.4-8.2) Albumin 2.3 G/DL (3.4-5.0) L Globulin 5.6 g/dL Albumin/Globulin Ratio 0.4 (1.0-2.7) L Random Vancomycin Level 5.1 ug/mL Current Medications Medications (Trade) Dose Ordered Sig/Torsten Route PRN Reason Start Time Stop Time Status Last Admin Dose Admin Acetaminophen (Tylenol) 650 mg Q4H PRN GT fever (temp>100.5F) 08/06/19 20:00 09/05/19 19:59 08/09/19 00:37 Acetaminophen (Tylenol) 650 mg Q4H PRN GT headache, mild pain 08/06/19 20:00 09/05/19 19:59 Albuterol/ Ipratropium (Albuterol/ Ipratropium) 3 ml Q4H PRN HHN Shortness of Breath 08/06/19 20:00 08/11/19 19:59 Ascorbic Acid (Vitamin C) 250 mg TWICE A DAY GT 08/07/19 09:00 09/06/19 08:59 08/09/19 09:55 Clonazepam (KlonoPIN) 0.5 mg Q6HR GT 08/07/19 00:00 08/13/19 07:01 08/09/19 14:11 Docusate Sodium (Colace) 100 mg TWICE A DAY ORAL 08/09/19 18:00 09/08/19 17:59 Heparin Sodium (Porcine) (Heparin 5000 units/ml) 5,000 units EVERY 12 HOURS SUBQ 08/06/19 21:00 09/05/19 08:59 08/09/19 09:57 Levothyroxine Sodium (Synthroid) 125 mcg Q24H GT 08/07/19 06:30 09/06/19 06:29 08/09/19 05:29 Memantine (Namenda) 5 mg BID ORAL 08/08/19 09:00 09/07/19 08:59 08/09/19 09:55 Meropenem 1 gm/ Sodium Chloride 55 ml @ 110 mls/hr Q12H IVPB 08/08/19 14:00 08/13/19 13:59 08/09/19 14:11 Nitroglycerin (Ntg) 0.4 mg Q5M PRN SL Prn Chest Pain 08/06/19 19:00 09/05/19 06:59 Ondansetron HCl (Zofran) 4 mg Q6H PRN IVP Nausea & Vomiting 08/06/19 19:00 09/05/19 06:59 Pantoprazole (Protonix) 40 mg EVERY 12 HOURS IVP 08/06/19 21:00 09/05/19 10:59 08/09/19 09:54 Polyethylene Glycol (Miralax) 17 gm DAILYPRN PRN GT Constipation 08/06/19 20:00 09/05/19 19:59 Potassium Chloride (K-Dur) 40 meq TWICE A DAY GT 08/08/19 09:30 09/07/19 09:29 08/09/19 09:55 Promethazine HCl/ Codeine (Phenergan with Codeine) 5 ml Q4H PRN GT For Cough 08/06/19 19:00 09/05/19 06:59 Temazepam (Restoril) 15 mg HSPRN PRN GT Insomnia 08/06/19 21:00 08/13/19 20:59 Trazodone HCl (Desyrel) 50 mg BEDTIME PRN GT insomnia 08/06/19 21:00 09/05/19 06:59 Vancomycin HCl (Vanco rx to dose) 1 ea DAILY PRN MISC Per rx protocol 08/07/19 09:00 09/05/19 18:29 Yane Umana M.D. Aug 09, 2019 16:31
--- NOTE | 2019-08-09 16:49 | NUR ---
*-* INSURANCE *-* ALL AVAILABLE CLINICALS HAVE BEEN FAXED: [facility] TRK# [id number] F: [phone]
--- NOTE | 2019-08-09 17:00 | Progress Note ---
DATE: 08/09/2019 SUBJECTIVE: The patient is an 84-year-old female patient with hypernatremia, but she has altered mental status, confusion, and overall decline in cognition below baseline. That is why, her attending has requested daily psychiatric consultation. DIAGNOSIS: Major depressive disorder, mild, recurrent with psychotic features, rule out dementia with psychosis. PLAN: Treat with Klonopin 0.5 mg per G-tube every 6 hours, trazodone 50 mg per G-tube at bedtime p.r.n. insomnia, and Namenda 5 mg per G-tube twice a day. 20 minutes of behavioral management. Chart reviewed. Discussed with staff. Seen and assessed at bedside. Steven Dunlap M.D. DR: HENOK JOB#: [id number] CC:
[2019-08-09] MEDS: Docusate 100mg/10ml Liq GT SCH (17:51)
[2019-08-09] MEDS ORDERED: Docusate 100mg cap ORAL SCH (18:00)
--- NOTE | 2019-08-09 18:05 | NUR ---
NURSE NOTES: Suctioned patient. Patient tolerated well.
--- NOTE | 2019-08-09 19:01 | NUR ---
NURSE NOTES: Changed sacral and bilateral heel dressings.
--- NOTE | 2019-08-09 19:35 | NUR ---
NURSE NOTES: Pt received in bed head of bed elevated, trach in place, gtube feeding at 30ml/hr will increase during shift, dressings changed today, will assess later.
--- NOTE | 2019-08-09 19:43 | NUR ---
HAND-OFF: Report given to RN Anitra.
[2019-08-09 20:00] VITALS: BP 86/42
[2019-08-10] VITALS: BP 96/53
--- NOTE | 2019-08-10 00:45 | NUR ---
NURSE NOTES: Left message for Dr. Umana with doctor's exchange regarding pt temp initially 100.4, given tylenol and temp then 100.9. waiting administration manager back
--- NOTE | 2019-08-10 01:00 | NUR ---
NURSE NOTES: Pt temp now 99.8.
[2019-08-10] MEDS: clonazePAM 0.5mg tab GT SCH ×4 (01:01→17:47)
[2019-08-10] MEDS: Meropenem 1 GM in NS 55 ML IVPB SCH ×2 (02:00→13:47)
[2019-08-10 04:00] VITALS: BP 96/56
--- NOTE | 2019-08-10 06:33 | General Progress Note ---
Assessment/Plan Problem List: (1) Acute on chronic renal failure ICD Codes: N17.9 - Acute kidney failure, unspecified; N18.9 - Chronic kidney disease, unspecified SNOMED: 445518560 (2) Chronic vegetative state ICD Codes: R40.3 - Persistent vegetative state SNOMED: 57565188 (3) Chronic respiratory failure ICD Codes: J96.10 - Chronic respiratory failure, unspecified whether with hypoxia or hypercapnia SNOMED: 96078368 Qualifiers: Qualified Codes: J96.10 - Chronic respiratory failure, unspecified whether with hypoxia or hypercapnia (4) Feeding by G-tube ICD Codes: Z93.1 - Gastrostomy status SNOMED: 623809338, 498165366 (5) HTN (hypertension) ICD Codes: I10 - Essential (primary) hypertension SNOMED: 41762758 (6) Anemia ICD Codes: D64.9 - Anemia, unspecified SNOMED: 684094111 Status: unchanged Assessment/Plan: EGD and colonoscopy on hold for now d/w with public guardian patient is DNR with limited interventions must be reviewed prior decision send occult blood stool to evaluate for GI bleed>> pending monitor H&H, prn transfusions PPI daily IV + PO hydration and electrolyte correction per nephro colace and miralax Subjective ROS Limited/Unobtainable: No Allergies: Coded Allergies: ASPIRIN (Verified Allergy, Unknown, 07/07/17) Objective Last 24 Hour Vital Signs Date Time Temp Pulse Resp B/P (MAP) Pulse Ox O2 Delivery O2 Flow Rate FiO2 08/10/19 04:00 99.5 97 20 96/56 (69) 98 08/10/19 04:00 5.0 28 08/10/19 03:05 100 Cool Aerosol 5.0 08/10/19 00:00 99.8 106 20 96/53 (67) 95 08/09/19 22:31 100.9 08/09/19 21:00 Trach Collar 5.0 08/09/19 20:00 5.0 28 08/09/19 20:00 100.4 110 23 86/42 (57) 98 08/09/19 19:46 97 Cool Aerosol 5.0 28 08/09/19 16:00 97.6 101 18 115/65 (82) 100 08/09/19 16:00 5.0 28 08/09/19 13:00 98 Cool Aerosol 5.0 28 08/09/19 12:00 98.4 95 18 124/61 (82) 100 08/09/19 12:00 5.0 28 08/09/19 09:00 Trach Collar 5.0 08/09/19 08:20 97 Cool Aerosol 5.0 28 08/09/19 08:00 5.0 28 08/09/19 08:00 97.0 106 18 101/41 (61) 98 Intake and Output 08/09/19 08/10/19 19:00 07:00 Intake Total 760.000 ml Output Total 1000 ml Balance -240.000 ml Free Water 100 ml IV Total 530.000 ml Tube Feeding 130 ml Output Urine Total 1000 ml # Voids 2 Laboratory Tests 08/10/19 00:04: Stool Occult Blood [Pending] Height (Feet): 5 Height (Inches): 8.00 Weight (Pounds): 126 Neck: supple Cardiovascular: normal rate Respiratory/Chest: decreased breath sounds Abdomen: normal bowel sounds, non tender Extremities: non-tender Jad Skinner MD Aug 10, 2019 06:33
[2019-08-10] MEDS: Levothyroxine 125mcg tab GT SCH (06:50)
--- NOTE | 2019-08-10 07:08 | NUR ---
HAND-OFF: Report given to RONDA Tinoco.
--- NOTE | 2019-08-10 07:57 | NUR ---
NURSE NOTES: received report from RONDA Jacobs. patient in bed. disoriented. non verbal. trach on 5l. GTF hold s/p levotyroxine medication. p200 mattress for wound management. IV on RH 20. saline lock intact. bed in the lowest position and locked. call light within reach. alarm on. will continue to provide plan of care.
[2019-08-10 08:00] VITALS: BP 113/59
--- NOTE | 2019-08-10 08:14 | Pulmonology Progress Note ---
Assessment/Plan Problems: (1) Nosocomial pneumonia (2) Acute on chronic renal failure (3) Chronic respiratory failure (4) Tracheostomy care (5) Cardiomyopathy (6) Seizure disorder (7) Feeding by G-tube (8) Chronic vegetative state Assessment/Plan check cultures, Urine has Proteus Mirabilis, sputum still pending iv abx Na getting better, increase D5w to 150 cc/hour\ continue gtube feeding tracheostomy care dvt prophylaxis all meds reviewed. Subjective ROS Limited/Unobtainable: No Constitutional: Reports: no symptoms HEENT: Repors: no symptoms Respiratory: Reports: no symptoms Allergies: Coded Allergies: ASPIRIN (Verified Allergy, Unknown, 07/07/17) Objective Last 24 Hour Vital Signs Date Time Temp Pulse Resp B/P (MAP) Pulse Ox O2 Delivery O2 Flow Rate FiO2 08/10/19 07:46 100 T-Piece 5.0 28 08/10/19 04:00 99.5 97 20 96/56 (69) 98 08/10/19 04:00 5.0 28 08/10/19 03:05 100 Cool Aerosol 5.0 28 08/10/19 00:00 99.8 106 20 96/53 (67) 95 08/09/19 22:31 100.9 08/09/19 21:00 Trach Collar 5.0 08/09/19 20:00 5.0 28 08/09/19 20:00 100.4 110 23 86/42 (57) 98 08/09/19 19:46 97 Cool Aerosol 5.0 28 08/09/19 16:00 97.6 101 18 115/65 (82) 100 08/09/19 16:00 5.0 28 08/09/19 13:00 98 Cool Aerosol 5.0 28 08/09/19 12:00 98.4 95 18 124/61 (82) 100 08/09/19 12:00 5.0 28 08/09/19 09:00 Trach Collar 5.0 08/09/19 08:20 97 Cool Aerosol 5.0 28 Intake and Output 08/09/19 08/10/19 19:00 07:00 Intake Total 760.000 ml 835 ml Output Total 1000 ml 1000 ml Balance -240.000 ml -165 ml Intake Oral 100 ml Free Water 100 ml 230 ml IV Total 530.000 ml Tube Feeding 130 ml 505 ml Output Urine Total 1000 ml 1000 ml # Voids 2 2 # Bowel Movements 1 General Appearance: WD/WN HEENT: normocephalic, atraumatic Respiratory/Chest: chest wall non-tender, lungs clear Breasts: no masses Cardiovascular: normal peripheral pulses, normal rate, regularly irregular Genitourinary: normal external genitalia Extremities: no cyanosis Skin: no rash Microbiology Date/Time Source Procedure Growth Status 08/09/19 08:34 Sputum Expectorated Gram Stain - Final Resulted 08/09/19 08:34 Sputum Expectorated Sputum Culture Pending Resulted Laboratory Tests 08/10/19 00:04: Stool Occult Blood Negative Current Medications Medications (Trade) Dose Ordered Sig/Torsten Route PRN Reason Start Time Stop Time Status Last Admin Dose Admin Acetaminophen (Tylenol) 650 mg Q4H PRN GT fever (temp>100.5F) 08/06/19 20:00 09/05/19 19:59 08/09/19 22:01 Acetaminophen (Tylenol) 650 mg Q4H PRN GT headache, mild pain 08/06/19 20:00 09/05/19 19:59 Albuterol/ Ipratropium (Albuterol/ Ipratropium) 3 ml Q4H PRN HHN Shortness of Breath 08/06/19 20:00 08/11/19 19:59 Ascorbic Acid (Vitamin C) 250 mg TWICE A DAY GT 08/07/19 09:00 09/06/19 08:59 08/09/19 17:51 Clonazepam (KlonoPIN) 0.5 mg Q6HR GT 08/07/19 00:00 08/13/19 07:01 08/10/19 01:01 Docusate Sodium (Colace) 100 mg BID GT 08/09/19 18:00 09/08/19 17:59 08/09/19 17:51 Heparin Sodium (Porcine) (Heparin 5000 units/ml) 5,000 units EVERY 12 HOURS SUBQ 08/06/19 21:00 09/05/19 08:59 08/09/19 22:02 Levothyroxine Sodium (Synthroid) 125 mcg Q24H GT 08/07/19 06:30 09/06/19 06:29 08/10/19 06:50 Memantine (Namenda) 5 mg BID ORAL 08/08/19 09:00 09/07/19 08:59 08/09/19 17:51 Meropenem 1 gm/ Sodium Chloride 55 ml @ 110 mls/hr Q12H IVPB 08/08/19 14:00 08/13/19 13:59 08/10/19 02:00 Nitroglycerin (Ntg) 0.4 mg Q5M PRN SL Prn Chest Pain 08/06/19 19:00 09/05/19 06:59 Ondansetron HCl (Zofran) 4 mg Q6H PRN IVP Nausea & Vomiting 08/06/19 19:00 09/05/19 06:59 Pantoprazole (Protonix) 40 mg EVERY 12 HOURS IVP 08/06/19 21:00 09/05/19 10:59 08/09/19 22:03 Polyethylene Glycol (Miralax) 17 gm DAILYPRN PRN GT Constipation 08/06/19 20:00 09/05/19 19:59 Potassium Chloride (K-Dur) 40 meq TWICE A DAY GT 08/08/19 09:30 09/07/19 09:29 08/09/19 17:51 Promethazine HCl/ Codeine (Phenergan with Codeine) 5 ml Q4H PRN GT For Cough 08/06/19 19:00 09/05/19 06:59 Temazepam (Restoril) 15 mg HSPRN PRN GT Insomnia 08/06/19 21:00 08/13/19 20:59 Trazodone HCl (Desyrel) 50 mg BEDTIME PRN GT insomnia 08/06/19 21:00 09/05/19 06:59 Vancomycin HCl (Vanco rx to dose) 1 ea DAILY PRN MISC Per rx protocol 08/07/19 09:00 09/05/19 18:29 Sue Yu MD Aug 10, 2019 08:14
[2019-08-10 08:34] LABS: BASOPHILS % (AUTO) 0.5 % (0.0-2.0); EOSINOPHILS % (AUTO) 4.4 % (0.0-3.0); HEMATOCRIT 29.1 % (37.0-47.0); HEMOGLOBIN 9.2 G/DL (12.0-16.0); LYMPHOCYTES % (AUTO) 22.6 % (20.0-45.0); MEAN CORPUSCULAR VOLUME 92 FL (80-99); MONOCYTES % (AUTO) 7.9 % (1.0-10.0); NEUTROPHILS % (AUTO) 64.7 % (45.0-75.0); PLATELET COUNT 227 K/UL (150-450); RED BLOOD COUNT 3.18 M/UL (4.20-5.40); RED CELL DISTRIBUTION WIDTH 12.8 % (11.6-14.8); WHITE BLOOD COUNT 7.7 K/UL (4.8-10.8)
[2019-08-10] MEDS: Pantoprazole Inj IVP SCH ×2 (08:57→20:58)
[2019-08-10] MEDS: Ascorbic Acid 500mg tab GT SCH ×2 (08:57→17:48)
[2019-08-10] MEDS: Memantine 5 MG TAB ORAL SCH ×2 (08:57→17:48)
[2019-08-10] MEDS: Docusate 100mg/10ml Liq GT SCH ×2 (08:57→17:47)
[2019-08-10] MEDS: Heparin 5000 units/ml inj SUBQ SCH ×2 (08:58→20:59)
--- NOTE | 2019-08-10 09:15 | General Progress Note ---
Assessment/Plan Problem List: (1) Decubitus skin ulcer ICD Codes: L89.90 - Pressure ulcer of unspecified site, unspecified stage SNOMED: 571337095 (2) Hypernatremia ICD Codes: E87.0 - Hyperosmolality and hypernatremia SNOMED: 95485805 (3) Hypotension ICD Codes: I95.9 - Hypotension, unspecified SNOMED: 58429373 (4) Anemia ICD Codes: D64.9 - Anemia, unspecified SNOMED: 915059433 (5) Seizure disorder ICD Codes: G40.909 - Epilepsy, unspecified, not intractable, without status epilepticus SNOMED: 022854866 (6) Septic shock ICD Codes: A41.9 - Sepsis, unspecified organism; R65.21 - Severe sepsis with septic shock SNOMED: 98770718 (7) HTN (hypertension) ICD Codes: I10 - Essential (primary) hypertension SNOMED: 43737119 (8) Cardiomyopathy ICD Codes: I42.9 - Cardiomyopathy, unspecified SNOMED: 46648739 (9) Sepsis ICD Codes: A41.9 - Sepsis, unspecified organism SNOMED: 39767811 Qualifiers: Qualified Codes: A41.9 - Sepsis, unspecified organism (10) Acute and chronic respiratory failure ICD Codes: J96.20 - Acute and chronic respiratory failure, unspecified whether with hypoxia or hypercapnia SNOMED: 01208366 (11) Tracheostomy care ICD Codes: Z43.0 - Encounter for attention to tracheostomy SNOMED: 287871766 (12) Bowel obstruction ICD Codes: K56.609 - Unspecified intestinal obstruction, unspecified as to partial versus complete obstruction SNOMED: 85640824 (13) Feeding by G-tube ICD Codes: Z93.1 - Gastrostomy status SNOMED: 443327914, 242489448 (14) Malfunction of gastrostomy tube ICD Codes: K94.23 - Gastrostomy malfunction SNOMED: 371363586 (15) Chronic respiratory failure ICD Codes: J96.10 - Chronic respiratory failure, unspecified whether with hypoxia or hypercapnia SNOMED: 40280018 Qualifiers: Qualified Codes: J96.10 - Chronic respiratory failure, unspecified whether with hypoxia or hypercapnia (16) Chronic vegetative state ICD Codes: R40.3 - Persistent vegetative state SNOMED: 07679978 (17) Nosocomial pneumonia ICD Codes: J18.9 - Pneumonia, unspecified organism SNOMED: 640371657 (18) Fecal impaction ICD Codes: K56.41 - Fecal impaction SNOMED: 67650238 (19) ATN (acute tubular necrosis) ICD Codes: N17.0 - Acute kidney failure with tubular necrosis SNOMED: 85366821 (20) Ileus ICD Codes: K56.7 - Ileus, unspecified SNOMED: 266580096 (21) Acute on chronic renal failure ICD Codes: N17.9 - Acute kidney failure, unspecified; N18.9 - Chronic kidney disease, unspecified SNOMED: 157690884 (22) UTI (urinary tract infection) ICD Codes: N39.0 - Urinary tract infection, site not specified SNOMED: 33240889 (23) Anemia ICD Codes: D64.9 - Anemia, unspecified SNOMED: 312628507 Status: unchanged Assessment/Plan: o2 pulm tx trach care abx diet cbc bmp am heme gi eval Subjective Constitutional: Reports: weakness Allergies: Coded Allergies: ASPIRIN (Verified Allergy, Unknown, 07/07/17) All Systems: reviewed and negative except above Subjective trach aerosol calm Objective Last 24 Hour Vital Signs Date Time Temp Pulse Resp B/P (MAP) Pulse Ox O2 Delivery O2 Flow Rate FiO2 08/10/19 08:00 99.6 94 22 113/59 (77) 98 08/10/19 07:46 100 T-Piece 5.0 28 08/10/19 04:00 99.5 97 20 96/56 (69) 98 08/10/19 04:00 5.0 28 08/10/19 03:05 100 Cool Aerosol 5.0 28 08/10/19 00:00 99.8 106 20 96/53 (67) 95 08/09/19 22:31 100.9 08/09/19 21:00 Trach Collar 5.0 08/09/19 20:00 5.0 28 08/09/19 20:00 100.4 110 23 86/42 (57) 98 08/09/19 19:46 97 Cool Aerosol 5.0 28 08/09/19 16:00 97.6 101 18 115/65 (82) 100 08/09/19 16:00 5.0 28 08/09/19 13:00 98 Cool Aerosol 5.0 28 08/09/19 12:00 98.4 95 18 124/61 (82) 100 08/09/19 12:00 5.0 28 Intake and Output 08/09/19 08/10/19 19:00 07:00 Intake Total 760.000 ml 835 ml Output Total 1000 ml 1000 ml Balance -240.000 ml -165 ml Intake Oral 100 ml Free Water 100 ml 230 ml IV Total 530.000 ml Tube Feeding 130 ml 505 ml Output Urine Total 1000 ml 1000 ml # Voids 2 2 # Bowel Movements 1 Laboratory Tests 08/10/19 00:04: Stool Occult Blood Negative 08/10/19 07:50: White Blood Count 7.7, Red Blood Count 3.18L, Hemoglobin 9.2L, Hematocrit 29.1L , Mean Corpuscular Volume 92, Mean Corpuscular Hemoglobin 29.0, Mean Corpuscular Hemoglobin Concent 31.6L, Red Cell Distribution Width 12.8, Platelet Count 227, Mean Platelet Volume 7.9, Neutrophils (%) (Auto) 64.7, Lymphocytes (%) (Auto) 22.6, Monocytes (%) (Auto) 7.9, Eosinophils (%) (Auto) 4.4H, Basophils (%) (Auto) 0.5, Sodium Level [Pending], Potassium Level [Pending ], Chloride Level [Pending], Carbon Dioxide Level [Pending], Blood Urea Nitrogen [Pending], Creatinine [Pending], Estimat Glomerular Filtration Rate [ Pending], Glucose Level [Pending], Calcium Level [Pending], Random Vancomycin Level [Pending] Height (Feet): 5 Height (Inches): 8.00 Weight (Pounds): 126 General Appearance: lethargic EENT: normal ENT inspection Neck: normal alignment Cardiovascular: normal peripheral pulses, normal rate, regular rhythm Respiratory/Chest: chest wall non-tender, lungs clear, normal breath sounds Abdomen: normal bowel sounds, non tender, soft Extremities: normal inspection Edema: no edema noted Arm (L), no edema noted Arm (R), no edema noted Leg (L), no edema noted Leg (R), no edema noted Pedal (L), no edema noted Pedal (R), no edema noted Generalized Neurologic: motor weakness Skin: normal pigmentation, warm/dry Rl White DO Aug 10, 2019 09:15
[2019-08-10 09:50] LABS: ANION GAP 13 mmol/L (5-15); BLOOD UREA NITROGEN 19 mg/dL (7-18); CALCIUM 9.1 MG/DL (8.5-10.1); CARBON DIOXIDE 22 MMOL/L (21-32); CHLORIDE 109 MMOL/L (98-107); CREATININE 1.6 MG/DL (0.55-1.30); POTASSIUM 4.1 MMOL/L (3.5-5.1); SODIUM 144 MMOL/L (136-145)
[2019-08-10 12:00] VITALS: BP 101/50
[2019-08-10] MEDS ORDERED: Albumin Human 5% 250ml IV ONE (14:00)
--- NOTE | 2019-08-10 14:00 | Nephrology Progress Note ---
Assessment/Plan Problem List: (1) Dehydration Assessment: improving (2) Hypernatremia Assessment: improving (3) Anemia (4) Seizure disorder (5) UTI (urinary tract infection) (6) Hypothyroidism Assessment Renal failure mainly prerenal dehydration / Hypernatremia free water deficit Anemia PEG UTI / Pneumonia HypoThyroidism Plan DC K supplement Watch serum Cr Albumin bolus D5W IV Smith blood sugar check monitor renal parameters Subjective ROS Limited/Unobtainable: No Constitutional: Reports: malaise Objective Objective Last 24 Hour Vital Signs Date Time Temp Pulse Resp B/P (MAP) Pulse Ox O2 Delivery O2 Flow Rate FiO2 08/10/19 12:00 5.0 28 08/10/19 12:00 99.2 95 21 101/50 (67) 99 08/10/19 09:00 Trach Collar 5.0 08/10/19 08:00 5.0 28 08/10/19 08:00 99.6 94 22 113/59 (77) 98 08/10/19 07:46 100 T-Piece 5.0 28 08/10/19 04:00 99.5 97 20 96/56 (69) 98 08/10/19 04:00 5.0 28 08/10/19 03:05 100 Cool Aerosol 5.0 28 08/10/19 00:00 99.8 106 20 96/53 (67) 95 08/09/19 22:31 100.9 08/09/19 21:00 Trach Collar 5.0 08/09/19 20:00 5.0 28 08/09/19 20:00 100.4 110 23 86/42 (57) 98 08/09/19 19:46 97 Cool Aerosol 5.0 28 08/09/19 16:00 97.6 101 18 115/65 (82) 100 08/09/19 16:00 5.0 28 Intake and Output 08/09/19 08/10/19 19:00 07:00 Intake Total 760.000 ml 835 ml Output Total 1000 ml 1000 ml Balance -240.000 ml -165 ml Intake Oral 100 ml Free Water 100 ml 230 ml IV Total 530.000 ml Tube Feeding 130 ml 505 ml Output Urine Total 1000 ml 1000 ml # Voids 2 2 # Bowel Movements 1 Laboratory Tests 08/10/19 00:04: Stool Occult Blood Negative 08/10/19 07:50: White Blood Count 7.7, Red Blood Count 3.18L, Hemoglobin 9.2L, Hematocrit 29.1L , Mean Corpuscular Volume 92, Mean Corpuscular Hemoglobin 29.0, Mean Corpuscular Hemoglobin Concent 31.6L, Red Cell Distribution Width 12.8, Platelet Count 227, Mean Platelet Volume 7.9, Neutrophils (%) (Auto) 64.7, Lymphocytes (%) (Auto) 22.6, Monocytes (%) (Auto) 7.9, Eosinophils (%) (Auto) 4.4H, Basophils (%) (Auto) 0.5, Sodium Level 144, Potassium Level 4.1, Chloride Level 109H, Carbon Dioxide Level 22, Anion Gap 13, Blood Urea Nitrogen 19H, Creatinine 1.6H, Estimat Glomerular Filtration Rate , Glucose Level 100, Calcium Level 9.1, Random Vancomycin Level 12.2 Height (Feet): 5 Height (Inches): 8.00 Weight (Pounds): 126 General Appearance: no apparent distress Objective no change Tono Case MD Aug 10, 2019 14:00
--- NOTE | 2019-08-10 14:25 | Surgery Progress Note ---
Surgery Progress Note Subjective Additional Comments ill appearing code status noted exam unchanged labs as below prognosis guarded Objective Last 24 Hour Vital Signs Date Time Temp Pulse Resp B/P (MAP) Pulse Ox O2 Delivery O2 Flow Rate FiO2 08/10/19 12:00 5.0 28 08/10/19 12:00 99.2 95 21 101/50 (67) 99 08/10/19 09:00 Trach Collar 5.0 08/10/19 08:00 5.0 28 08/10/19 08:00 99.6 94 22 113/59 (77) 98 08/10/19 07:46 100 T-Piece 5.0 28 08/10/19 04:00 99.5 97 20 96/56 (69) 98 08/10/19 04:00 5.0 28 08/10/19 03:05 100 Cool Aerosol 5.0 28 08/10/19 00:00 99.8 106 20 96/53 (67) 95 08/09/19 22:31 100.9 08/09/19 21:00 Trach Collar 5.0 08/09/19 20:00 5.0 28 08/09/19 20:00 100.4 110 23 86/42 (57) 98 08/09/19 19:46 97 Cool Aerosol 5.0 28 08/09/19 16:00 97.6 101 18 115/65 (82) 100 08/09/19 16:00 5.0 28 I&O Intake and Output 08/09/19 08/10/19 19:00 07:00 Intake Total 760.000 ml 835 ml Output Total 1000 ml 1000 ml Balance -240.000 ml -165 ml Intake Oral 100 ml Free Water 100 ml 230 ml IV Total 530.000 ml Tube Feeding 130 ml 505 ml Output Urine Total 1000 ml 1000 ml # Voids 2 2 # Bowel Movements 1 Dressing: other Wound: other Drains: other Cardiovascular: RSR Respiratory: decreased breath sounds Abdomen: soft, decreased bowel sounds Extremities: no tenderness, no cyanosis, other Laboratory Tests Test 08/10/19 00:04 08/10/19 07:50 Stool Occult Blood Negative (NEGATIVE) White Blood Count 7.7 K/UL (4.8-10.8) Red Blood Count 3.18 M/UL (4.20-5.40) L Hemoglobin 9.2 G/DL (12.0-16.0) L Hematocrit 29.1 % (37.0-47.0) L Mean Corpuscular Volume 92 FL (80-99) Mean Corpuscular Hemoglobin 29.0 PG (27.0-31.0) Mean Corpuscular Hemoglobin Concent 31.6 G/DL (32.0-36.0) L Red Cell Distribution Width 12.8 % (11.6-14.8) Platelet Count 227 K/UL (150-450) Mean Platelet Volume 7.9 FL (6.5-10.1) Neutrophils (%) (Auto) 64.7 % (45.0-75.0) Lymphocytes (%) (Auto) 22.6 % (20.0-45.0) Monocytes (%) (Auto) 7.9 % (1.0-10.0) Eosinophils (%) (Auto) 4.4 % (0.0-3.0) H Basophils (%) (Auto) 0.5 % (0.0-2.0) Sodium Level 144 MMOL/L (136-145) Potassium Level 4.1 MMOL/L (3.5-5.1) Chloride Level 109 MMOL/L (98-107) H Carbon Dioxide Level 22 MMOL/L (21-32) Anion Gap 13 mmol/L (5-15) Blood Urea Nitrogen 19 mg/dL (7-18) H Creatinine 1.6 MG/DL (0.55-1.30) H Estimat Glomerular Filtration Rate mL/min (>60) Glucose Level 100 MG/DL (74-106) Calcium Level 9.1 MG/DL (8.5-10.1) Random Vancomycin Level 12.2 ug/mL Plan Problems: (1) Sepsis Assessment & Plan: 84-year-old very unfortunate female with multiple medical comorbidities who has leukocytosis, lactic acidosis, likely UTI. Presents with multiple wounds and unstageable decubitus ulcers. Wound evaluated at bedside and unlikely the etiology of patient's sepsis. Leukocytosis lactic sepsis likely due to UTI. Patient currently on IV antibiotics as per infectious disease. Lactic acidosis improving. Exam as above. Care management as presented below. We will continue to follow recommendations. Thank you for allowing me to participate in patient's care. wbc improved. febrile. cultures pending final (2) Tracheostomy care Assessment & Plan: Trach site stable. Respiratory as per pulm (3) Feeding by G-tube Assessment & Plan: DAILY ESTIMATED NEEDS: Needs based on Wound, pulmonary 59.8kg 30-35 kcals/kg 8808-0715 total kcals 1.25-1.5 g protein/kg 75-90 g total protein 25-30ml/kcal mL/kg 2270-9851 total fluid mLs NUTRITION DIAGNOSIS: * Swallowing difficulty R/T respiratory status, dysphagia as evidenced by pt is vent dep via T-collar + PEG dep, NPO at this time * Increased kcal/prot needs R/T wound healing as evidenced by pt admitted w/ full thickness pressure sacral injury, with multiple other wounds, eval pending. (CURRENT TF: NPO) ENTERAL NUTRITION RECOMMENDATIONS: Jevity 1.2 @ 70ml/hr x 22 hrs + Prosource 1pkt QD to provide 1540ml, 1848 kcal, 85g pro, 1243 - As medically able, rec Jevity 1.2, start @30ml/hr for 6 hrs. Advance as tolerated 10ml/hr q4-6 hrs to goal - HOLD TF 1 hr before and after synthroid meds - HOB >30 degrees/ water flushes per MD - TF @ goal provides 100% of RDI. ADDITIONAL RECOMMENDATIONS: 1) Calibrated bedscale wts (EMR wt: 160 lbs vs Bed wt: 131.6lbs) 2) Rec water flushes, 120ml q6 hrs 3) Monitor BGs closely, need for hypoglycemic agents or TF change 4) Wound healing: Vit C 250mg BID Add Tommie 1pkt in 4oz H2O BID 5) F/up w/ H&P and WC eval . (4) Decubitus skin ulcer Assessment & Plan: Pt presented on admission with multiple pressure injuries. Skin assessed under trach collar and no evidence of skin breakdown noted. Unstageable pressure injury noted to sacrum(L)1.5cm x (W)2cm. Base of wound has 75% slough,25%pink granulation. Borders are macerated with surrounding non- blanching erythema. R heel Maroon,fluctuant in center with surrounding dry black borders(L)5.5cm x (W)9cm. Reabsorbed DTPI noted to L heel. Base of wound is Black and dry. Surrounding dry peeling skin without erythema.(L)5.5cm x (W)8.5cm. Inferior but in close proximity to Medial L malleolus necrotic area over bony prominence noted. Base of wound is dry without fluctuance. Periwound without discoloration.(L)1.5cm x (W)1cm. Non-Blanching erythema noted to L 1st metatarsal head and lateral aspect. No elevation in skin temp noted. Tx.Plan: Cleanse Sacral wound with Saline. Apply TheraHoney . Apply Moisture Barrier paste periwound. Cover with Optifoam drsg. Change every 3 days and prn. Apply Betadine to R heel. Cover with Optifoam drsg. Change every 3 days and prn. Apply Betadine to L Heel and Medial L foot. Cover with Optifoam drsg. Change every 3 days and prn. Apply Cavilon Skin Barrier to L 1st metatarsal head and lateral aspect Daily and prn. APM/MARCOS Mattress overlay. Reposition at least every 2hours or as tolerated. Off-load heels with pillow. Place pillow between knees. Livan Dean Aug 10, 2019 14:25
[2019-08-10] MEDS ORDERED: Albumin Human 5% 500ml IV ONE (15:00)
[2019-08-10 16:00] VITALS: BP 123/64
--- NOTE | 2019-08-10 16:00 | NUR ---
BANANA LOADERMAIL TECHNICIAN 08/10/2019 SI: HYPERNATREMIA T 99.5 HR 97 RR 20 B/P 96/56 SATS 98% ON 5L/TPIECE FIO2 29 CL 109 BUN 19 CR 1.6 STOOL OB (-) IS: MEROPENEM IV Q12H MED/SURG STATUS
--- NOTE | 2019-08-10 18:30 | Progress Note ---
DATE: 08/10/2019 NOTE: "POOR AUDIO QUALITY" SUBJECTIVE: An 84-year-old female patient with hypernatremia. She continues to have some confusion, some mood lability, and some decline in cognition below her baseline. She has got helplessness, hopelessness, low energy, poor appetite, and loss of interest in activity. She is still depressed and confused with mood lability, history of hypernatremia, and high levels of anxiety as well. MENTAL STATUS EXAMINATION: An 84-year-old female. Appearance is disheveled. Attitude, irritable and agitated. Affect, guarded and restricted. Intellect poor. Mood, depressed and anxious. Motor activity, psychomotor agitation. Attention span is poor. Orientation x2. Speech is pressured. Thought process, disorganized and illogical. Insight and judgment is poor. DIAGNOSIS: Major depressive disorder, severe, recurrent with psychotic features; rule out dementia with psychosis. PLAN: Treat with Klonopin 0.5 mg per G-tube q.6 hours p.r.n. anxiety or agitation, trazodone 50 mg per G-tube , and also Namenda 5 mg per G-tube q.p.m. Provided her with 20 minutes of behavioral management. Chart reviewed. Discussed with staff. Seen and assessed at bedside. Steven Dunlap M.D. DR: Brayan JOB#: [id number] CC:
--- NOTE | 2019-08-10 19:19 | NUR ---
HAND-OFF: Report given to RONDA Solomon.
--- NOTE | 2019-08-10 19:58 | NUR ---
NURSE NOTES: Received patient in bed, non verbal, patient has a trach and suctioned prn, IV site is clean dry and intact, gtube feeding in place, tolerating well, call light is within reach, bed is lowered, locked and alarm is on, no acute distress noted, will continue to monitor for comfort and safety.
[2019-08-10 20:00] VITALS: BP 102/59
[2019-08-11] VITALS: BP 93/69
[2019-08-11] MEDS: clonazePAM 0.5mg tab GT SCH ×5 (00:07→23:49)
[2019-08-11] MEDS: Meropenem 1 GM in NS 55 ML IVPB SCH ×2 (01:41→14:05)
[2019-08-11 04:00] VITALS: BP 109/60
[2019-08-11] MEDS: Levothyroxine 125mcg tab GT SCH (06:00)
--- NOTE | 2019-08-11 06:59 | NUR ---
HAND-OFF: Report given to Alejandrina BOND.
--- NOTE | 2019-08-11 07:09 | General Progress Note ---
Assessment/Plan Problem List: (1) Acute on chronic renal failure ICD Codes: N17.9 - Acute kidney failure, unspecified; N18.9 - Chronic kidney disease, unspecified SNOMED: 757950721 (2) Chronic vegetative state ICD Codes: R40.3 - Persistent vegetative state SNOMED: 77808200 (3) Chronic respiratory failure ICD Codes: J96.10 - Chronic respiratory failure, unspecified whether with hypoxia or hypercapnia SNOMED: 36476851 Qualifiers: Qualified Codes: J96.10 - Chronic respiratory failure, unspecified whether with hypoxia or hypercapnia (4) Feeding by G-tube ICD Codes: Z93.1 - Gastrostomy status SNOMED: 391463237, 357520048 (5) HTN (hypertension) ICD Codes: I10 - Essential (primary) hypertension SNOMED: 47032516 (6) Anemia ICD Codes: D64.9 - Anemia, unspecified SNOMED: 121415687 Status: unchanged Assessment/Plan: EGD and colonoscopy on hold for now d/w with public guardian patient is DNR with limited interventions must be reviewed prior decision stool ob neg monitor H&H, prn transfusions PPI daily GTF at 80 cc colace and miralax Subjective ROS Limited/Unobtainable: No Allergies: Coded Allergies: ASPIRIN (Verified Allergy, Unknown, 07/07/17) Objective Last 24 Hour Vital Signs Date Time Temp Pulse Resp B/P (MAP) Pulse Ox O2 Delivery O2 Flow Rate FiO2 08/11/19 04:21 5.0 28 08/11/19 04:00 99.7 90 24 109/60 (76) 95 08/11/19 00:12 100 T-Piece 5.0 08/11/19 00:00 99.6 95 25 93/69 (77) 97 08/10/19 21:31 5.0 28 08/10/19 21:30 Trach Collar 5.0 08/10/19 20:00 99.4 93 28 102/59 (73) 95 08/10/19 19:56 100 T-Piece 5.0 28 08/10/19 16:00 5.0 28 08/10/19 16:00 98.7 96 22 123/64 (83) 100 08/10/19 13:02 100 T-Piece 5.0 28 08/10/19 12:00 5.0 28 08/10/19 12:00 99.2 95 21 101/50 (67) 99 08/10/19 09:00 Trach Collar 5.0 08/10/19 08:00 5.0 28 08/10/19 08:00 99.6 94 22 113/59 (77) 98 08/10/19 07:46 100 T-Piece 5.0 28 Intake and Output 08/10/19 08/11/19 19:00 07:00 Intake Total 1030 ml 810 ml Balance 1030 ml 810 ml Free Water 200 ml 100 ml IV Total 110 ml Tube Feeding 720 ml 710 ml # Voids 3 # Bowel Movements 2 Laboratory Tests 08/10/19 07:50: White Blood Count 7.7, Red Blood Count 3.18L, Hemoglobin 9.2L, Hematocrit 29.1L , Mean Corpuscular Volume 92, Mean Corpuscular Hemoglobin 29.0, Mean Corpuscular Hemoglobin Concent 31.6L, Red Cell Distribution Width 12.8, Platelet Count 227, Mean Platelet Volume 7.9, Neutrophils (%) (Auto) 64.7, Lymphocytes (%) (Auto) 22.6, Monocytes (%) (Auto) 7.9, Eosinophils (%) (Auto) 4.4H, Basophils (%) (Auto) 0.5, Sodium Level 144, Potassium Level 4.1, Chloride Level 109H, Carbon Dioxide Level 22, Anion Gap 13, Blood Urea Nitrogen 19H, Creatinine 1.6H, Estimat Glomerular Filtration Rate , Glucose Level 100, Calcium Level 9.1, Random Vancomycin Level 12.2 08/11/19 06:00: White Blood Count [Pending], Red Blood Count [Pending], Hemoglobin [Pending], Hematocrit [Pending], Mean Corpuscular Volume [Pending], Mean Corpuscular Hemoglobin [Pending], Mean Corpuscular Hemoglobin Concent [Pending], Red Cell Distribution Width [Pending], Platelet Count [Pending], Mean Platelet Volume [ Pending], Neutrophils (%) (Auto) [Pending], Lymphocytes (%) (Auto) [Pending], Monocytes (%) (Auto) [Pending], Eosinophils (%) (Auto) [Pending], Basophils (%) (Auto) [Pending], Sodium Level [Pending], Potassium Level [Pending], Chloride Level [Pending], Carbon Dioxide Level [Pending], Blood Urea Nitrogen [Pending], Creatinine [Pending], Estimat Glomerular Filtration Rate [Pending], Glucose Level [Pending], Calcium Level [Pending], Erythrocyte Sedimentation Rate [ Pending], Phosphorus Level [Pending], Magnesium Level [Pending], Total Bilirubin [Pending], Aspartate Amino Transf (AST/SGOT) [Pending], Alanine Aminotransferase (ALT/SGPT) [Pending], Alkaline Phosphatase [Pending], C- Reactive Protein, Quantitative [Pending], Total Protein [Pending], Albumin [ Pending], Globulin [Pending] Height (Feet): 5 Height (Inches): 8.00 Weight (Pounds): 126 General Appearance: lethargic EENT: normal ENT inspection Neck: supple Cardiovascular: normal rate Respiratory/Chest: decreased breath sounds Abdomen: normal bowel sounds, non tender, soft Extremities: non-tender Jad Skinner MD Aug 11, 2019 07:09
[2019-08-11 07:10] LABS: BASOPHILS % (AUTO) 0.4 % (0.0-2.0); EOSINOPHILS % (AUTO) 5.3 % (0.0-3.0); HEMATOCRIT 25.6 % (37.0-47.0); HEMOGLOBIN 8.2 G/DL (12.0-16.0); MEAN CORPUSCULAR VOLUME 92 FL (80-99); MONOCYTES % (AUTO) 7.6 % (1.0-10.0); NEUTROPHILS % (AUTO) 54.7 % (45.0-75.0); PLATELET COUNT 218 K/UL (150-450); RED BLOOD COUNT 2.79 M/UL (4.20-5.40); RED CELL DISTRIBUTION WIDTH 12.7 % (11.6-14.8); WHITE BLOOD COUNT 6.9 K/UL (4.8-10.8)
[2019-08-11 07:18] LABS: ALANINE AMINOTRANSFERASE 36 U/L (12-78); ALBUMIN 2.8 G/DL (3.4-5.0); ALBUMIN/GLOBULIN RATIO 0.5 (1.0-2.7); ALKALINE PHOSPHATASE 98 U/L (46-116); ANION GAP 10 mmol/L (5-15); ASPARTATE AMINO TRANSFERASE 23 U/L (15-37); BILIRUBIN,TOTAL 0.3 MG/DL (0.2-1.0); BLOOD UREA NITROGEN 21 mg/dL (7-18); CARBON DIOXIDE 24 MMOL/L (21-32); CHLORIDE 111 MMOL/L (98-107); CREATININE 1.3 MG/DL (0.55-1.30); POTASSIUM 4.3 MMOL/L (3.5-5.1); SODIUM 145 MMOL/L (136-145)
[2019-08-11 07:22] LABS: PHOSPHORUS 3.3 MG/DL (2.5-4.9)
--- NOTE | 2019-08-11 07:31 | NUR ---
NURSE NOTES: received report from RONDA Solomon. patient in bed. disoriented. non verbal. on trach 5L. stomy dressing intact. dry. suction working. GTF running @60/hr. HOB at all times. GT site with no s/sx of infection. no residual. IV on Left wrist 24g. saline lock. intact. P200 brook for wound management. contact isolation. PPE at all times. bed in the lowest position and lock. call light within reach. will continue to provide plan of care.
[2019-08-11 08:00] VITALS: BP 119/54
[2019-08-11] MEDS: Ascorbic Acid 500mg tab GT SCH ×2 (08:47→17:15)
[2019-08-11] MEDS: Pantoprazole Inj IVP SCH ×2 (08:47→20:24)
[2019-08-11] MEDS: Docusate 100mg/10ml Liq GT SCH ×2 (08:47→17:15)
[2019-08-11] MEDS: Memantine 5 MG TAB ORAL SCH ×2 (08:48→17:15)
[2019-08-11] MEDS: Heparin 5000 units/ml inj SUBQ SCH ×2 (08:49→20:25)
--- NOTE | 2019-08-11 09:01 | Pulmonology Progress Note ---
Assessment/Plan Problems: (1) Nosocomial pneumonia (2) Acute on chronic renal failure (3) Chronic respiratory failure (4) Tracheostomy care (5) Cardiomyopathy (6) Seizure disorder (7) Feeding by G-tube (8) Chronic vegetative state Assessment/Plan check cultures, Urine has Proteus Mirabilis, sputum has pseudomonas iv abx continue gtube feeding tracheostomy care dvt prophylaxis all meds reviewed. Subjective ROS Limited/Unobtainable: No Allergies: Coded Allergies: ASPIRIN (Verified Allergy, Unknown, 07/07/17) Objective Last 24 Hour Vital Signs Date Time Temp Pulse Resp B/P (MAP) Pulse Ox O2 Delivery O2 Flow Rate FiO2 08/11/19 08:00 5.0 28 08/11/19 08:00 98.9 88 19 119/54 (75) 97 08/11/19 07:31 95 T-Piece 5.0 28 08/11/19 04:21 5.0 28 08/11/19 04:00 99.7 90 24 109/60 (76) 95 08/11/19 00:12 100 T-Piece 5.0 28 08/11/19 00:00 99.6 95 25 93/69 (77) 97 08/10/19 21:31 5.0 28 08/10/19 21:30 Trach Collar 5.0 08/10/19 20:00 99.4 93 28 102/59 (73) 95 08/10/19 19:56 100 T-Piece 5.0 28 08/10/19 16:00 5.0 28 08/10/19 16:00 98.7 96 22 123/64 (83) 100 08/10/19 13:02 100 T-Piece 5.0 28 08/10/19 12:00 5.0 28 08/10/19 12:00 99.2 95 21 101/50 (67) 99 Intake and Output 08/10/19 08/11/19 19:00 07:00 Intake Total 1030 ml 810 ml Balance 1030 ml 810 ml Free Water 200 ml 100 ml IV Total 110 ml Tube Feeding 720 ml 710 ml # Voids 3 # Bowel Movements 2 General Appearance: WD/WN HEENT: status post trach Respiratory/Chest: respiratory distress, crackles/rales, rhonchi Cardiovascular: normal peripheral pulses, normal rate Abdomen: normal bowel sounds, soft, non tender Extremities: no cyanosis, no clubbing Skin: no rash Lymphatic: no neck adenopathy Microbiology Date/Time Source Procedure Growth Status 08/09/19 08:34 Sputum Expectorated Gram Stain - Final Resulted 08/09/19 08:34 Sputum Culture - Preliminary Gram Negative Tom Resulted Laboratory Tests 08/11/19 06:00: White Blood Count 6.9, Red Blood Count 2.79L, Hemoglobin 8.2L, Hematocrit 25.6L , Mean Corpuscular Volume 92, Mean Corpuscular Hemoglobin 29.5, Mean Corpuscular Hemoglobin Concent 32.2, Red Cell Distribution Width 12.7, Platelet Count 218, Mean Platelet Volume 7.6, Neutrophils (%) (Auto) 54.7, Lymphocytes (% ) (Auto) 32.0, Monocytes (%) (Auto) 7.6, Eosinophils (%) (Auto) 5.3H, Basophils (%) (Auto) 0.4, Erythrocyte Sedimentation Rate 131H, Sodium Level 145, Potassium Level 4.3, Chloride Level 111H, Carbon Dioxide Level 24, Anion Gap 10 , Blood Urea Nitrogen 21H, Creatinine 1.3, Estimat Glomerular Filtration Rate , Glucose Level 113H, Calcium Level 9.0, Phosphorus Level 3.3, Magnesium Level 2.1 , Total Bilirubin 0.3, Aspartate Amino Transf (AST/SGOT) 23, Alanine Aminotransferase (ALT/SGPT) 36, Alkaline Phosphatase 98, C-Reactive Protein, Quantitative 6.5H, Total Protein 8.0, Albumin 2.8L, Globulin 5.2, Albumin/ Globulin Ratio 0.5L Current Medications Medications (Trade) Dose Ordered Sig/Torsten Route PRN Reason Start Time Stop Time Status Last Admin Dose Admin Acetaminophen (Tylenol) 650 mg Q4H PRN GT fever (temp>100.5F) 08/06/19 20:00 09/05/19 19:59 08/09/19 22:01 Acetaminophen (Tylenol) 650 mg Q4H PRN GT headache, mild pain 08/06/19 20:00 09/05/19 19:59 Albuterol/ Ipratropium (Albuterol/ Ipratropium) 3 ml Q4H PRN HHN Shortness of Breath 08/06/19 20:00 08/11/19 19:59 Ascorbic Acid (Vitamin C) 250 mg TWICE A DAY GT 08/07/19 09:00 09/06/19 08:59 08/11/19 08:47 Clonazepam (KlonoPIN) 0.5 mg Q6HR GT 08/07/19 00:00 08/13/19 07:01 08/11/19 06:00 Docusate Sodium (Colace) 100 mg BID GT 08/09/19 18:00 09/08/19 17:59 08/11/19 08:47 Heparin Sodium (Porcine) (Heparin 5000 units/ml) 5,000 units EVERY 12 HOURS SUBQ 08/06/19 21:00 09/05/19 08:59 08/11/19 08:49 Levothyroxine Sodium (Synthroid) 125 mcg Q24H GT 08/07/19 06:30 09/06/19 06:29 08/11/19 06:00 Memantine (Namenda) 5 mg BID ORAL 08/08/19 09:00 09/07/19 08:59 08/11/19 08:48 Meropenem 1 gm/ Sodium Chloride 55 ml @ 110 mls/hr Q12H IVPB 08/08/19 14:00 08/13/19 13:59 08/11/19 01:41 Nitroglycerin (Ntg) 0.4 mg Q5M PRN SL Prn Chest Pain 08/06/19 19:00 09/05/19 06:59 Ondansetron HCl (Zofran) 4 mg Q6H PRN IVP Nausea & Vomiting 08/06/19 19:00 09/05/19 06:59 Pantoprazole (Protonix) 40 mg EVERY 12 HOURS IVP 08/06/19 21:00 09/05/19 10:59 08/11/19 08:47 Polyethylene Glycol (Miralax) 17 gm DAILYPRN PRN GT Constipation 08/06/19 20:00 09/05/19 19:59 Promethazine HCl/ Codeine (Phenergan with Codeine) 5 ml Q4H PRN GT For Cough 08/06/19 19:00 09/05/19 06:59 Temazepam (Restoril) 15 mg HSPRN PRN GT Insomnia 08/06/19 21:00 08/13/19 20:59 Trazodone HCl (Desyrel) 50 mg BEDTIME PRN GT insomnia 08/06/19 21:00 09/05/19 06:59 Vancomycin HCl (Vanco rx to dose) 1 ea DAILY PRN MISC Per rx protocol 08/07/19 09:00 09/05/19 18:29 Sue Yu MD Aug 11, 2019 09:01
--- NOTE | 2019-08-11 09:18 | General Progress Note ---
Assessment/Plan Problem List: (1) Decubitus skin ulcer ICD Codes: L89.90 - Pressure ulcer of unspecified site, unspecified stage SNOMED: 951213600 (2) Hypernatremia ICD Codes: E87.0 - Hyperosmolality and hypernatremia SNOMED: 00918477 (3) Hypotension ICD Codes: I95.9 - Hypotension, unspecified SNOMED: 68907291 (4) Anemia ICD Codes: D64.9 - Anemia, unspecified SNOMED: 382629332 (5) Seizure disorder ICD Codes: G40.909 - Epilepsy, unspecified, not intractable, without status epilepticus SNOMED: 351197680 (6) Septic shock ICD Codes: A41.9 - Sepsis, unspecified organism; R65.21 - Severe sepsis with septic shock SNOMED: 22629338 (7) HTN (hypertension) ICD Codes: I10 - Essential (primary) hypertension SNOMED: 94765575 (8) Cardiomyopathy ICD Codes: I42.9 - Cardiomyopathy, unspecified SNOMED: 17624957 (9) Sepsis ICD Codes: A41.9 - Sepsis, unspecified organism SNOMED: 94147614 Qualifiers: Qualified Codes: A41.9 - Sepsis, unspecified organism (10) Acute and chronic respiratory failure ICD Codes: J96.20 - Acute and chronic respiratory failure, unspecified whether with hypoxia or hypercapnia SNOMED: 22718440 (11) Tracheostomy care ICD Codes: Z43.0 - Encounter for attention to tracheostomy SNOMED: 975075253 (12) Bowel obstruction ICD Codes: K56.609 - Unspecified intestinal obstruction, unspecified as to partial versus complete obstruction SNOMED: 87008846 (13) Feeding by G-tube ICD Codes: Z93.1 - Gastrostomy status SNOMED: 318007126, 232218876 (14) Malfunction of gastrostomy tube ICD Codes: K94.23 - Gastrostomy malfunction SNOMED: 185620106 (15) Chronic respiratory failure ICD Codes: J96.10 - Chronic respiratory failure, unspecified whether with hypoxia or hypercapnia SNOMED: 19924559 Qualifiers: Qualified Codes: J96.10 - Chronic respiratory failure, unspecified whether with hypoxia or hypercapnia (16) Chronic vegetative state ICD Codes: R40.3 - Persistent vegetative state SNOMED: 45945573 (17) Nosocomial pneumonia ICD Codes: J18.9 - Pneumonia, unspecified organism SNOMED: 513609125 (18) Fecal impaction ICD Codes: K56.41 - Fecal impaction SNOMED: 54913796 (19) ATN (acute tubular necrosis) ICD Codes: N17.0 - Acute kidney failure with tubular necrosis SNOMED: 45162385 (20) Ileus ICD Codes: K56.7 - Ileus, unspecified SNOMED: 936437399 (21) Acute on chronic renal failure ICD Codes: N17.9 - Acute kidney failure, unspecified; N18.9 - Chronic kidney disease, unspecified SNOMED: 338766087 (22) UTI (urinary tract infection) ICD Codes: N39.0 - Urinary tract infection, site not specified SNOMED: 77278597 (23) Anemia ICD Codes: D64.9 - Anemia, unspecified SNOMED: 124659770 Status: unchanged Assessment/Plan: o2 pulm tx trach care abx diet cbc bmp am heme gi eval Subjective Constitutional: Reports: weakness Allergies: Coded Allergies: ASPIRIN (Verified Allergy, Unknown, 07/07/17) All Systems: reviewed and negative except above Subjective trach aerosol calm Objective Last 24 Hour Vital Signs Date Time Temp Pulse Resp B/P (MAP) Pulse Ox O2 Delivery O2 Flow Rate FiO2 08/11/19 08:00 5.0 28 08/11/19 08:00 98.9 88 19 119/54 (75) 97 08/11/19 07:31 95 T-Piece 5.0 28 08/11/19 04:21 5.0 28 08/11/19 04:00 99.7 90 24 109/60 (76) 95 08/11/19 00:12 100 T-Piece 5.0 28 08/11/19 00:00 99.6 95 25 93/69 (77) 97 08/10/19 21:31 5.0 28 08/10/19 21:30 Trach Collar 5.0 08/10/19 20:00 99.4 93 28 102/59 (73) 95 08/10/19 19:56 100 T-Piece 5.0 28 08/10/19 16:00 5.0 28 08/10/19 16:00 98.7 96 22 123/64 (83) 100 08/10/19 13:02 100 T-Piece 5.0 28 08/10/19 12:00 5.0 28 08/10/19 12:00 99.2 95 21 101/50 (67) 99 Intake and Output 08/10/19 08/11/19 19:00 07:00 Intake Total 1030 ml 810 ml Balance 1030 ml 810 ml Free Water 200 ml 100 ml IV Total 110 ml Tube Feeding 720 ml 710 ml # Voids 3 # Bowel Movements 2 Laboratory Tests 08/11/19 06:00: White Blood Count 6.9, Red Blood Count 2.79L, Hemoglobin 8.2L, Hematocrit 25.6L , Mean Corpuscular Volume 92, Mean Corpuscular Hemoglobin 29.5, Mean Corpuscular Hemoglobin Concent 32.2, Red Cell Distribution Width 12.7, Platelet Count 218, Mean Platelet Volume 7.6, Neutrophils (%) (Auto) 54.7, Lymphocytes (% ) (Auto) 32.0, Monocytes (%) (Auto) 7.6, Eosinophils (%) (Auto) 5.3H, Basophils (%) (Auto) 0.4, Erythrocyte Sedimentation Rate 131H, Sodium Level 145, Potassium Level 4.3, Chloride Level 111H, Carbon Dioxide Level 24, Anion Gap 10 , Blood Urea Nitrogen 21H, Creatinine 1.3, Estimat Glomerular Filtration Rate , Glucose Level 113H, Calcium Level 9.0, Phosphorus Level 3.3, Magnesium Level 2.1 , Total Bilirubin 0.3, Aspartate Amino Transf (AST/SGOT) 23, Alanine Aminotransferase (ALT/SGPT) 36, Alkaline Phosphatase 98, C-Reactive Protein, Quantitative 6.5H, Total Protein 8.0, Albumin 2.8L, Globulin 5.2, Albumin/ Globulin Ratio 0.5L Height (Feet): 5 Height (Inches): 8.00 Weight (Pounds): 126 General Appearance: lethargic EENT: normal ENT inspection Neck: normal alignment Cardiovascular: normal peripheral pulses, normal rate, regular rhythm Respiratory/Chest: chest wall non-tender, lungs clear, normal breath sounds Abdomen: normal bowel sounds, non tender, soft Extremities: normal inspection Edema: no edema noted Arm (L), no edema noted Arm (R), no edema noted Leg (L), no edema noted Leg (R), no edema noted Pedal (L), no edema noted Pedal (R), no edema noted Generalized Neurologic: motor weakness Skin: warm/dry, cyanotic Rl White DO Aug 11, 2019 09:18
--- NOTE | 2019-08-11 09:20 | Nephrology Progress Note ---
Assessment/Plan Problem List: (1) Dehydration Assessment: improving (2) Hypernatremia Assessment: improving (3) Anemia (4) Seizure disorder (5) UTI (urinary tract infection) (6) Hypothyroidism Assessment Renal failure mainly prerenal dehydration / Hypernatremia free water deficit Anemia PEG UTI / Pneumonia HypoThyroidism Plan DC K supplement Watch serum Cr Albumin bolus D5W IV Smith blood sugar check monitor renal parameters Subjective ROS Limited/Unobtainable: No Objective Objective Last 24 Hour Vital Signs Date Time Temp Pulse Resp B/P (MAP) Pulse Ox O2 Delivery O2 Flow Rate FiO2 08/11/19 08:00 5.0 28 08/11/19 08:00 98.9 88 19 119/54 (75) 97 08/11/19 07:31 95 T-Piece 5.0 28 08/11/19 04:21 5.0 28 08/11/19 04:00 99.7 90 24 109/60 (76) 95 08/11/19 00:12 100 T-Piece 5.0 28 08/11/19 00:00 99.6 95 25 93/69 (77) 97 08/10/19 21:31 5.0 28 08/10/19 21:30 Trach Collar 5.0 08/10/19 20:00 99.4 93 28 102/59 (73) 95 08/10/19 19:56 100 T-Piece 5.0 28 08/10/19 16:00 5.0 28 08/10/19 16:00 98.7 96 22 123/64 (83) 100 08/10/19 13:02 100 T-Piece 5.0 28 08/10/19 12:00 5.0 28 08/10/19 12:00 99.2 95 21 101/50 (67) 99 Intake and Output 08/10/19 08/11/19 19:00 07:00 Intake Total 1030 ml 810 ml Balance 1030 ml 810 ml Free Water 200 ml 100 ml IV Total 110 ml Tube Feeding 720 ml 710 ml # Voids 3 # Bowel Movements 2 Laboratory Tests 08/11/19 06:00: White Blood Count 6.9, Red Blood Count 2.79L, Hemoglobin 8.2L, Hematocrit 25.6L , Mean Corpuscular Volume 92, Mean Corpuscular Hemoglobin 29.5, Mean Corpuscular Hemoglobin Concent 32.2, Red Cell Distribution Width 12.7, Platelet Count 218, Mean Platelet Volume 7.6, Neutrophils (%) (Auto) 54.7, Lymphocytes (% ) (Auto) 32.0, Monocytes (%) (Auto) 7.6, Eosinophils (%) (Auto) 5.3H, Basophils (%) (Auto) 0.4, Erythrocyte Sedimentation Rate 131H, Sodium Level 145, Potassium Level 4.3, Chloride Level 111H, Carbon Dioxide Level 24, Anion Gap 10 , Blood Urea Nitrogen 21H, Creatinine 1.3, Estimat Glomerular Filtration Rate , Glucose Level 113H, Calcium Level 9.0, Phosphorus Level 3.3, Magnesium Level 2.1 , Total Bilirubin 0.3, Aspartate Amino Transf (AST/SGOT) 23, Alanine Aminotransferase (ALT/SGPT) 36, Alkaline Phosphatase 98, C-Reactive Protein, Quantitative 6.5H, Total Protein 8.0, Albumin 2.8L, Globulin 5.2, Albumin/ Globulin Ratio 0.5L Height (Feet): 5 Height (Inches): 8.00 Weight (Pounds): 126 General Appearance: no apparent distress Cardiovascular: normal rate Respiratory/Chest: decreased breath sounds Abdomen: soft Objective no change Tono Case MD Aug 11, 2019 09:19
[2019-08-11 12:00] VITALS: BP 119/61
--- NOTE | 2019-08-11 13:33 | Infectious Diseases Prog Note ---
Assessment/Plan Assessment/Plan Assessment: Sepsis Probable UTI -u/a wbc tnct; ucx >100k P. mirabilis, probable AMP-c -BCx Neg Probable PNA -08/07 CXR: probably unchanged bilateral diffuse interstitial and airspace disease, right greater than left. Atelectatic changes at the left lung base are again noted. -CXR: Bilateral interstitial disease, may be on the basis of pulmonary edema or may reflect inflammatory changes. This is similar to the previous study of 01/02/2019, 70 may also be a chronic component -influenza sc neg -sp cx GNR Leukocytosis; SP Low grade fever; improving Hypernatremia, SP JAMES, improving hx of PNA -12/2018 sp cx PsA -10/2017 MDR PSA, H. flu hx of septic shock with MDRO hx of MDR ABC VAP 2016 hx of b/l pneumothorax 12/2018 HTN seizure disorder Dementia CVA/TIA quadriplegia chronic resp failure s/p trac/vent dependant dysphagia s/p PEG COPD SNF resident Plan: -D/c empiric IV Vancomycin #6 -Continue Meropenem #4/7 -08/08 SP Cefepime #3 -08/06 SP Zosyn x1 -f/u cx -Monitor CBC/CMP, temperatures -peg/trach care -aspiration precautions Thank you for this consultation. Will continue to follow along with you. Discussed with RN Subjective Allergies: Coded Allergies: ASPIRIN (Verified Allergy, Unknown, 07/07/17) Subjective afebrile >36hrs no leukocytosis Bcx NTD Objective Vital Signs Last 24 Hour Vital Signs Date Time Temp Pulse Resp B/P (MAP) Pulse Ox O2 Delivery O2 Flow Rate FiO2 08/11/19 13:05 97 T-Piece 5.0 28 08/11/19 12:00 97.9 83 18 119/61 (80) 97 08/11/19 12:00 5.0 28 08/11/19 09:00 Trach Collar 5.0 08/11/19 08:00 5.0 28 08/11/19 08:00 98.9 88 19 119/54 (75) 97 08/11/19 07:31 95 T-Piece 5.0 28 08/11/19 04:21 5.0 28 08/11/19 04:00 99.7 90 24 109/60 (76) 95 08/11/19 00:12 100 T-Piece 5.0 28 08/11/19 00:00 99.6 95 25 93/69 (77) 97 08/10/19 21:31 5.0 28 08/10/19 21:30 Trach Collar 5.0 08/10/19 20:00 99.4 93 28 102/59 (73) 95 08/10/19 19:56 100 T-Piece 5.0 28 08/10/19 16:00 5.0 28 08/10/19 16:00 98.7 96 22 123/64 (83) 100 Height (Feet): 5 Height (Inches): 8.00 Weight (Pounds): 126 Objective General Appearance: cachetic, thin Lines, tubes and drains: peripheral HEENT: normocephalic, atraumatic Neck: non-tender, supple Respiratory/Chest: chest wall non-tender Cardiovascular/Chest: normal peripheral pulses, normal rate Abdomen: normal bowel sounds, non tender Genitourinary/Rectal: normal genital exam Extremities: normal range of motion Skin Exam: normal pigmentation Microbiology Date/Time Source Procedure Growth Status 08/09/19 08:34 Sputum Expectorated Gram Stain - Final Resulted 08/09/19 08:34 Sputum Culture - Preliminary Gram Negative Tom Resulted Laboratory Tests Test 08/11/19 06:00 White Blood Count 6.9 K/UL (4.8-10.8) Red Blood Count 2.79 M/UL (4.20-5.40) L Hemoglobin 8.2 G/DL (12.0-16.0) L Hematocrit 25.6 % (37.0-47.0) L Mean Corpuscular Volume 92 FL (80-99) Mean Corpuscular Hemoglobin 29.5 PG (27.0-31.0) Mean Corpuscular Hemoglobin Concent 32.2 G/DL (32.0-36.0) Red Cell Distribution Width 12.7 % (11.6-14.8) Platelet Count 218 K/UL (150-450) Mean Platelet Volume 7.6 FL (6.5-10.1) Neutrophils (%) (Auto) 54.7 % (45.0-75.0) Lymphocytes (%) (Auto) 32.0 % (20.0-45.0) Monocytes (%) (Auto) 7.6 % (1.0-10.0) Eosinophils (%) (Auto) 5.3 % (0.0-3.0) H Basophils (%) (Auto) 0.4 % (0.0-2.0) Erythrocyte Sedimentation Rate 131 MM/HR (0-30) H Sodium Level 145 MMOL/L (136-145) Potassium Level 4.3 MMOL/L (3.5-5.1) Chloride Level 111 MMOL/L (98-107) H Carbon Dioxide Level 24 MMOL/L (21-32) Anion Gap 10 mmol/L (5-15) Blood Urea Nitrogen 21 mg/dL (7-18) H Creatinine 1.3 MG/DL (0.55-1.30) Estimat Glomerular Filtration Rate mL/min (>60) Glucose Level 113 MG/DL (74-106) H Calcium Level 9.0 MG/DL (8.5-10.1) Phosphorus Level 3.3 MG/DL (2.5-4.9) Magnesium Level 2.1 MG/DL (1.8-2.4) Total Bilirubin 0.3 MG/DL (0.2-1.0) Aspartate Amino Transf (AST/SGOT) 23 U/L (15-37) Alanine Aminotransferase (ALT/SGPT) 36 U/L (12-78) Alkaline Phosphatase 98 U/L (46-116) C-Reactive Protein, Quantitative 6.5 mg/dL (0.00-0.90) H Total Protein 8.0 G/DL (6.4-8.2) Albumin 2.8 G/DL (3.4-5.0) L Globulin 5.2 g/dL Albumin/Globulin Ratio 0.5 (1.0-2.7) L Current Medications Medications (Trade) Dose Ordered Sig/Torsten Route PRN Reason Start Time Stop Time Status Last Admin Dose Admin Acetaminophen (Tylenol) 650 mg Q4H PRN GT fever (temp>100.5F) 08/06/19 20:00 09/05/19 19:59 08/09/19 22:01 Acetaminophen (Tylenol) 650 mg Q4H PRN GT headache, mild pain 08/06/19 20:00 09/05/19 19:59 Albuterol/ Ipratropium (Albuterol/ Ipratropium) 3 ml Q4H PRN HHN Shortness of Breath 08/06/19 20:00 08/11/19 19:59 Ascorbic Acid (Vitamin C) 250 mg TWICE A DAY GT 08/07/19 09:00 09/06/19 08:59 08/11/19 08:47 Clonazepam (KlonoPIN) 0.5 mg Q6HR GT 08/07/19 00:00 08/13/19 07:01 08/11/19 12:19 Docusate Sodium (Colace) 100 mg BID GT 08/09/19 18:00 09/08/19 17:59 08/11/19 08:47 Heparin Sodium (Porcine) (Heparin 5000 units/ml) 5,000 units EVERY 12 HOURS SUBQ 08/06/19 21:00 09/05/19 08:59 08/11/19 08:49 Levothyroxine Sodium (Synthroid) 125 mcg Q24H GT 08/07/19 06:30 09/06/19 06:29 08/11/19 06:00 Memantine (Namenda) 5 mg BID ORAL 08/08/19 09:00 09/07/19 08:59 08/11/19 08:48 Meropenem 1 gm/ Sodium Chloride 55 ml @ 110 mls/hr Q12H IVPB 08/08/19 14:00 08/13/19 13:59 08/11/19 01:41 Nitroglycerin (Ntg) 0.4 mg Q5M PRN SL Prn Chest Pain 08/06/19 19:00 09/05/19 06:59 Ondansetron HCl (Zofran) 4 mg Q6H PRN IVP Nausea & Vomiting 08/06/19 19:00 09/05/19 06:59 Pantoprazole (Protonix) 40 mg EVERY 12 HOURS IVP 08/06/19 21:00 09/05/19 10:59 08/11/19 08:47 Polyethylene Glycol (Miralax) 17 gm DAILYPRN PRN GT Constipation 08/06/19 20:00 09/05/19 19:59 Promethazine HCl/ Codeine (Phenergan with Codeine) 5 ml Q4H PRN GT For Cough 08/06/19 19:00 09/05/19 06:59 Temazepam (Restoril) 15 mg HSPRN PRN GT Insomnia 08/06/19 21:00 08/13/19 20:59 Trazodone HCl (Desyrel) 50 mg BEDTIME PRN GT insomnia 08/06/19 21:00 09/05/19 06:59 Vancomycin HCl (Vanco rx to dose) 1 ea DAILY PRN MISC Per rx protocol 08/07/19 09:00 09/05/19 18:29 Yane Umana M.D. Aug 11, 2019 13:33
--- NOTE | 2019-08-11 14:55 | Surgery Progress Note ---
Surgery Progress Note Subjective Additional Comments no acute events ill appearing labs noted exam unchanged. Objective Last 24 Hour Vital Signs Date Time Temp Pulse Resp B/P (MAP) Pulse Ox O2 Delivery O2 Flow Rate FiO2 08/11/19 13:05 97 T-Piece 5.0 28 08/11/19 12:00 97.9 83 18 119/61 (80) 97 08/11/19 12:00 5.0 28 08/11/19 09:00 Trach Collar 5.0 08/11/19 08:00 5.0 28 08/11/19 08:00 98.9 88 19 119/54 (75) 97 08/11/19 07:31 95 T-Piece 5.0 28 08/11/19 04:21 5.0 28 08/11/19 04:00 99.7 90 24 109/60 (76) 95 08/11/19 00:12 100 T-Piece 5.0 28 08/11/19 00:00 99.6 95 25 93/69 (77) 97 08/10/19 21:31 5.0 28 08/10/19 21:30 Trach Collar 5.0 08/10/19 20:00 99.4 93 28 102/59 (73) 95 08/10/19 19:56 100 T-Piece 5.0 28 08/10/19 16:00 5.0 28 08/10/19 16:00 98.7 96 22 123/64 (83) 100 I&O Intake and Output 08/10/19 08/11/19 19:00 07:00 Intake Total 1030 ml 810 ml Balance 1030 ml 810 ml Free Water 200 ml 100 ml IV Total 110 ml Tube Feeding 720 ml 710 ml # Voids 3 # Bowel Movements 2 Dressing: other Wound: other Drains: other Respiratory: decreased breath sounds Abdomen: soft, present bowel sounds Extremities: no cyanosis, other Laboratory Tests Test 08/11/19 06:00 White Blood Count 6.9 K/UL (4.8-10.8) Red Blood Count 2.79 M/UL (4.20-5.40) L Hemoglobin 8.2 G/DL (12.0-16.0) L Hematocrit 25.6 % (37.0-47.0) L Mean Corpuscular Volume 92 FL (80-99) Mean Corpuscular Hemoglobin 29.5 PG (27.0-31.0) Mean Corpuscular Hemoglobin Concent 32.2 G/DL (32.0-36.0) Red Cell Distribution Width 12.7 % (11.6-14.8) Platelet Count 218 K/UL (150-450) Mean Platelet Volume 7.6 FL (6.5-10.1) Neutrophils (%) (Auto) 54.7 % (45.0-75.0) Lymphocytes (%) (Auto) 32.0 % (20.0-45.0) Monocytes (%) (Auto) 7.6 % (1.0-10.0) Eosinophils (%) (Auto) 5.3 % (0.0-3.0) H Basophils (%) (Auto) 0.4 % (0.0-2.0) Erythrocyte Sedimentation Rate 131 MM/HR (0-30) H Sodium Level 145 MMOL/L (136-145) Potassium Level 4.3 MMOL/L (3.5-5.1) Chloride Level 111 MMOL/L (98-107) H Carbon Dioxide Level 24 MMOL/L (21-32) Anion Gap 10 mmol/L (5-15) Blood Urea Nitrogen 21 mg/dL (7-18) H Creatinine 1.3 MG/DL (0.55-1.30) Estimat Glomerular Filtration Rate mL/min (>60) Glucose Level 113 MG/DL (74-106) H Calcium Level 9.0 MG/DL (8.5-10.1) Phosphorus Level 3.3 MG/DL (2.5-4.9) Magnesium Level 2.1 MG/DL (1.8-2.4) Total Bilirubin 0.3 MG/DL (0.2-1.0) Aspartate Amino Transf (AST/SGOT) 23 U/L (15-37) Alanine Aminotransferase (ALT/SGPT) 36 U/L (12-78) Alkaline Phosphatase 98 U/L (46-116) C-Reactive Protein, Quantitative 6.5 mg/dL (0.00-0.90) H Total Protein 8.0 G/DL (6.4-8.2) Albumin 2.8 G/DL (3.4-5.0) L Globulin 5.2 g/dL Albumin/Globulin Ratio 0.5 (1.0-2.7) L Plan Problems: (1) Sepsis Assessment & Plan: 84-year-old very unfortunate female with multiple medical comorbidities who has leukocytosis, lactic acidosis, likely UTI. Presents with multiple wounds and unstageable decubitus ulcers. Wound evaluated at bedside and unlikely the etiology of patient's sepsis. Leukocytosis lactic sepsis likely due to UTI. Patient currently on IV antibiotics as per infectious disease. Lactic acidosis improving. Exam as above. Care management as presented below. We will continue to follow recommendations. Thank you for allowing me to participate in patient's care. wbc improved. febrile. cultures pending final (2) Tracheostomy care Assessment & Plan: Trach site stable. Respiratory as per pulm (3) Feeding by G-tube Assessment & Plan: DAILY ESTIMATED NEEDS: Needs based on Wound, pulmonary 59.8kg 30-35 kcals/kg 0816-8684 total kcals 1.25-1.5 g protein/kg 75-90 g total protein 25-30ml/kcal mL/kg 5952-2029 total fluid mLs NUTRITION DIAGNOSIS: * Swallowing difficulty R/T respiratory status, dysphagia as evidenced by pt is vent dep via T-collar + PEG dep, NPO at this time * Increased kcal/prot needs R/T wound healing as evidenced by pt admitted w/ full thickness pressure sacral injury, with multiple other wounds, eval pending. (CURRENT TF: NPO) ENTERAL NUTRITION RECOMMENDATIONS: Jevity 1.2 @ 70ml/hr x 22 hrs + Prosource 1pkt QD to provide 1540ml, 1848 kcal, 85g pro, 1243 - As medically able, rec Jevity 1.2, start @30ml/hr for 6 hrs. Advance as tolerated 10ml/hr q4-6 hrs to goal - HOLD TF 1 hr before and after synthroid meds - HOB >30 degrees/ water flushes per MD - TF @ goal provides 100% of RDI. ADDITIONAL RECOMMENDATIONS: 1) Calibrated bedscale wts (EMR wt: 160 lbs vs Bed wt: 131.6lbs) 2) Rec water flushes, 120ml q6 hrs 3) Monitor BGs closely, need for hypoglycemic agents or TF change 4) Wound healing: Vit C 250mg BID Add Tommie 1pkt in 4oz H2O BID 5) F/up w/ H&P and WC eval . (4) Decubitus skin ulcer Assessment & Plan: Pt presented on admission with multiple pressure injuries. Skin assessed under trach collar and no evidence of skin breakdown noted. Unstageable pressure injury noted to sacrum(L)1.5cm x (W)2cm. Base of wound has 75% slough,25%pink granulation. Borders are macerated with surrounding non- blanching erythema. R heel Maroon,fluctuant in center with surrounding dry black borders(L)5.5cm x (W)9cm. Reabsorbed DTPI noted to L heel. Base of wound is Black and dry. Surrounding dry peeling skin without erythema.(L)5.5cm x (W)8.5cm. Inferior but in close proximity to Medial L malleolus necrotic area over bony prominence noted. Base of wound is dry without fluctuance. Periwound without discoloration.(L)1.5cm x (W)1cm. Non-Blanching erythema noted to L 1st metatarsal head and lateral aspect. No elevation in skin temp noted. Tx.Plan: Cleanse Sacral wound with Saline. Apply TheraHoney . Apply Moisture Barrier paste periwound. Cover with Optifoam drsg. Change every 3 days and prn. Apply Betadine to R heel. Cover with Optifoam drsg. Change every 3 days and prn. Apply Betadine to L Heel and Medial L foot. Cover with Optifoam drsg. Change every 3 days and prn. Apply Cavilon Skin Barrier to L 1st metatarsal head and lateral aspect Daily and prn. APM/MARCOS Mattress overlay. Reposition at least every 2hours or as tolerated. Off-load heels with pillow. Place pillow between knees. Livan Dean Aug 11, 2019 14:55
--- NOTE | 2019-08-11 15:00 | Progress Note ---
DATE: 08/11/2019 SUBJECTIVE: She is an 84-year-old female patient with hypernatremia. She continues to have some altered mental status, confusion, and decline in cognition below the baseline. She has altered mental status, confusion. That is why, her attending has requested daily psychiatric consultation. DIAGNOSIS: Major depressive disorder, mild, recurrent with psychotic features. PLAN: Continue treatment with medications to stabilize the mood. 20 minutes of reality-based supportive psychotherapy. Chart reviewed. Discussed with staff. Seen and assessed at bedside. A 20 minutes of reality-based supportive psychotherapy provided. Steven Dunlap M.D. DR: HENOK JOB#: [id number] CC:
[2019-08-11 16:00] VITALS: BP 121/69
--- NOTE | 2019-08-11 16:06 | Hematology/Onc Progress Note ---
Assessment/Plan Assessment/Plan Assessment and Recs: # Anemia of chronic disease due to underlying chronic medical issues, multifactorial --> Anemia workup has been reviewed, ferritin is 610--?853 --> No evidence of hemolysis is noted, peripheral smear has been reviewed. --> Hgb goal >7. Transfuse prn. --> Epogen or iron at this time is not particularly indicated --> Medications have been reviewed --> evaluate with Gi team prn --> currently dnr, HOLDING OFF colo and egd --> transfuse if hgb is < 7 (will trend CBC daily) --> stool ob is negative --> hgb trend 8.3-->8.2 stool ob negative # Leukocytosis on admission due to sepsis --> due to uti per id --> on vanc/cefe-->meropenem --> wbc trend: 6.9 # Acute on chronic Renal failure --> per renal --> cr has improved --> 1.6-->1.3 # Acute on chronic respiratory failure s/p trach with revision --> Pneumothorax s/p chest tube HISTory # UTI # HypoAlbuminemia # HTN # PEG with Fecal impaction # Dvt ppx scds/heparin The timing of this note does not necessarily reflect the time of the patient was seen. Greatly appreciate consultation! Subjective Allergies: Coded Allergies: ASPIRIN (Verified Allergy, Unknown, 07/07/17) Subjective 08/11: no acute events, trach, h/h stable, on abx Objective Objective Current Medications Medications (Trade) Dose Ordered Sig/Torsten Route PRN Reason Start Time Stop Time Status Last Admin Dose Admin Acetaminophen (Tylenol) 650 mg Q4H PRN GT fever (temp>100.5F) 08/06/19 20:00 09/05/19 19:59 08/09/19 22:01 Acetaminophen (Tylenol) 650 mg Q4H PRN GT headache, mild pain 08/06/19 20:00 09/05/19 19:59 Albuterol/ Ipratropium (Albuterol/ Ipratropium) 3 ml Q4H PRN HHN Shortness of Breath 08/06/19 20:00 08/11/19 19:59 Ascorbic Acid (Vitamin C) 250 mg TWICE A DAY GT 08/07/19 09:00 09/06/19 08:59 08/11/19 08:47 Clonazepam (KlonoPIN) 0.5 mg Q6HR GT 08/07/19 00:00 08/13/19 07:01 08/11/19 12:19 Docusate Sodium (Colace) 100 mg BID GT 08/09/19 18:00 09/08/19 17:59 08/11/19 08:47 Heparin Sodium (Porcine) (Heparin 5000 units/ml) 5,000 units EVERY 12 HOURS SUBQ 08/06/19 21:00 09/05/19 08:59 08/11/19 08:49 Levothyroxine Sodium (Synthroid) 125 mcg Q24H GT 08/07/19 06:30 09/06/19 06:29 08/11/19 06:00 Memantine (Namenda) 5 mg BID ORAL 08/08/19 09:00 09/07/19 08:59 08/11/19 08:48 Meropenem 1 gm/ Sodium Chloride 55 ml @ 110 mls/hr Q12H IVPB 08/08/19 14:00 08/13/19 13:59 08/11/19 14:05 Nitroglycerin (Ntg) 0.4 mg Q5M PRN SL Prn Chest Pain 08/06/19 19:00 09/05/19 06:59 Ondansetron HCl (Zofran) 4 mg Q6H PRN IVP Nausea & Vomiting 08/06/19 19:00 09/05/19 06:59 Pantoprazole (Protonix) 40 mg EVERY 12 HOURS IVP 08/06/19 21:00 09/05/19 10:59 08/11/19 08:47 Polyethylene Glycol (Miralax) 17 gm DAILYPRN PRN GT Constipation 08/06/19 20:00 09/05/19 19:59 Promethazine HCl/ Codeine (Phenergan with Codeine) 5 ml Q4H PRN GT For Cough 08/06/19 19:00 09/05/19 06:59 Temazepam (Restoril) 15 mg HSPRN PRN GT Insomnia 08/06/19 21:00 08/13/19 20:59 Trazodone HCl (Desyrel) 50 mg BEDTIME PRN GT insomnia 08/06/19 21:00 09/05/19 06:59 Last 24 Hour Vital Signs Date Time Temp Pulse Resp B/P (MAP) Pulse Ox O2 Delivery O2 Flow Rate FiO2 08/11/19 13:05 97 T-Piece 5.0 28 08/11/19 12:00 97.9 83 18 119/61 (80) 97 08/11/19 12:00 5.0 28 08/11/19 09:00 Trach Collar 5.0 08/11/19 08:00 5.0 28 08/11/19 08:00 98.9 88 19 119/54 (75) 97 08/11/19 07:31 95 T-Piece 5.0 28 08/11/19 04:21 5.0 28 08/11/19 04:00 99.7 90 24 109/60 (76) 95 08/11/19 00:12 100 T-Piece 5.0 28 08/11/19 00:00 99.6 95 25 93/69 (77) 97 08/10/19 21:31 5.0 28 08/10/19 21:30 Trach Collar 5.0 08/10/19 20:00 99.4 93 28 102/59 (73) 95 08/10/19 19:56 100 T-Piece 5.0 28 08/10/19 16:00 5.0 28 08/10/19 16:00 98.7 96 22 123/64 (83) 100 08/10/19 13:02 100 T-Piece 5.0 28 08/10/19 12:00 5.0 28 08/10/19 12:00 99.2 95 21 101/50 (67) 99 08/10/19 09:00 Trach Collar 5.0 08/10/19 08:00 5.0 28 08/10/19 08:00 99.6 94 22 113/59 (77) 98 08/10/19 07:46 100 T-Piece 5.0 28 08/10/19 04:00 99.5 97 20 96/56 (69) 98 08/10/19 04:00 5.0 28 08/10/19 03:05 100 Cool Aerosol 5.0 28 08/10/19 00:00 99.8 106 20 96/53 (67) 95 08/09/19 22:31 100.9 08/09/19 21:00 Trach Collar 5.0 08/09/19 20:00 5.0 28 08/09/19 20:00 100.4 110 23 86/42 (57) 98 08/09/19 19:46 97 Cool Aerosol 5.0 28 08/09/19 16:00 97.6 101 18 115/65 (82) 100 08/09/19 16:00 5.0 28 Intake and Output 08/10/19 08/11/19 19:00 07:00 Intake Total 1030 ml 810 ml Balance 1030 ml 810 ml Free Water 200 ml 100 ml IV Total 110 ml Tube Feeding 720 ml 710 ml # Voids 3 # Bowel Movements 2 Labs Test 08/09/19 06:24 08/10/19 00:04 08/10/19 07:50 08/11/19 06:00 White Blood Count 8.3 K/UL (4.8-10.8) 7.7 K/UL (4.8-10.8) 6.9 K/UL (4.8-10.8) Red Blood Count 2.90 M/UL (4.20-5.40) 3.18 M/UL (4.20-5.40) 2.79 M/UL (4.20-5.40) Hemoglobin 8.5 G/DL (12.0-16.0) 9.2 G/DL (12.0-16.0) 8.2 G/DL (12.0-16.0) Hematocrit 26.8 % (37.0-47.0) 29.1 % (37.0-47.0) 25.6 % (37.0-47.0) Mean Corpuscular Volume 92 FL (80-99) 92 FL (80-99) 92 FL (80-99) Mean Corpuscular Hemoglobin 29.3 PG (27.0-31.0) 29.0 PG (27.0-31.0) 29.5 PG (27.0-31.0) Mean Corpuscular Hemoglobin Concent 31.7 G/DL (32.0-36.0) 31.6 G/DL (32.0-36.0) 32.2 G/DL (32.0-36.0) Red Cell Distribution Width 12.6 % (11.6-14.8) 12.8 % (11.6-14.8) 12.7 % (11.6-14.8) Platelet Count 186 K/UL (150-450) 227 K/UL (150-450) 218 K/UL (150-450) Mean Platelet Volume 8.0 FL (6.5-10.1) 7.9 FL (6.5-10.1) 7.6 FL (6.5-10.1) Neutrophils (%) (Auto) 68.9 % (45.0-75.0) 64.7 % (45.0-75.0) 54.7 % (45.0-75.0) Lymphocytes (%) (Auto) 19.5 % (20.0-45.0) 22.6 % (20.0-45.0) 32.0 % (20.0-45.0) Monocytes (%) (Auto) 7.0 % (1.0-10.0) 7.9 % (1.0-10.0) 7.6 % (1.0-10.0) Eosinophils (%) (Auto) 4.2 % (0.0-3.0) 4.4 % (0.0-3.0) 5.3 % (0.0-3.0) Basophils (%) (Auto) 0.4 % (0.0-2.0) 0.5 % (0.0-2.0) 0.4 % (0.0-2.0) Prothrombin Time 12.8 SEC (9.30-11.50) Prothromb Time International Ratio 1.2 (0.9-1.1) Activated Partial Thromboplast Time 30 SEC (23-33) Sodium Level 145 MMOL/L (136-145) 144 MMOL/L (136-145) 145 MMOL/L (136-145) Potassium Level 3.4 MMOL/L (3.5-5.1) 4.1 MMOL/L (3.5-5.1) 4.3 MMOL/L (3.5-5.1) Chloride Level 112 MMOL/L (98-107) 109 MMOL/L (98-107) 111 MMOL/L (98-107) Carbon Dioxide Level 23 MMOL/L (21-32) 22 MMOL/L (21-32) 24 MMOL/L (21-32) Anion Gap 10 mmol/L (5-15) 13 mmol/L (5-15) 10 mmol/L (5-15) Blood Urea Nitrogen 17 mg/dL (7-18) 19 mg/dL (7-18) 21 mg/dL (7-18) Creatinine 1.4 MG/DL (0.55-1.30) 1.6 MG/DL (0.55-1.30) 1.3 MG/DL (0.55-1.30) Estimat Glomerular Filtration Rate mL/min (>60) mL/min (>60) mL/min (>60) Glucose Level 100 MG/DL (74-106) 100 MG/DL (74-106) 113 MG/DL (74-106) Uric Acid 4.8 MG/DL (2.6-7.2) Calcium Level 8.9 MG/DL (8.5-10.1) 9.1 MG/DL (8.5-10.1) 9.0 MG/DL (8.5-10.1) Phosphorus Level 2.9 MG/DL (2.5-4.9) 3.3 MG/DL (2.5-4.9) Magnesium Level 1.8 MG/DL (1.8-2.4) 2.1 MG/DL (1.8-2.4) Total Bilirubin 0.6 MG/DL (0.2-1.0) 0.3 MG/DL (0.2-1.0) Aspartate Amino Transf (AST/SGOT) 49 U/L (15-37) 23 U/L (15-37) Alanine Aminotransferase (ALT/SGPT) 62 U/L (12-78) 36 U/L (12-78) Alkaline Phosphatase 106 U/L (46-116) 98 U/L (46-116) C-Reactive Protein, Quantitative 6.6 mg/dL (0.00-0.90) 6.5 mg/dL (0.00-0.90) Total Protein 7.9 G/DL (6.4-8.2) 8.0 G/DL (6.4-8.2) Albumin 2.3 G/DL (3.4-5.0) 2.8 G/DL (3.4-5.0) Globulin 5.6 g/dL 5.2 g/dL Albumin/Globulin Ratio 0.4 (1.0-2.7) 0.5 (1.0-2.7) Random Vancomycin Level 5.1 ug/mL 12.2 ug/mL Stool Occult Blood Negative (NEGATIVE) Erythrocyte Sedimentation Rate 131 MM/HR (0-30) Height (Feet): 5 Height (Inches): 8.00 Weight (Pounds): 126 Objective PE Vital Signs reviewed General: lethargic, obese, Stupor Head: at Neck: supple Respiratory: +trach Cardiovascular: tachycardia Gastrointestinal: G-tube in place Msk: Contractures lower extremities Micha Torres MD Aug 11, 2019 16:06
--- NOTE | 2019-08-11 19:17 | NUR ---
HAND-OFF: Report given to RONDA Solomon.
--- NOTE | 2019-08-11 19:23 | NUR ---
NURSE NOTES: Received patient in bed, non verbal, total care, on p 200 mattress, IV site is clean dry and intact, patient has a trach , and on continuous oxygen at 5 liters/min. Gtube is place, patient is getting Jevity 1.2 at 80 cc/her, tolerating well. Call light is within reach, bed is lowered, locked and alarm is on. Will continue to monitor for comfort and safety.
[2019-08-11 20:08] VITALS: BP 136/69
[2019-08-12] VITALS: BP 126/61
[2019-08-12] MEDS: Meropenem 1 GM in NS 55 ML IVPB SCH (01:52)
[2019-08-12 04:00] VITALS: BP 125/60
[2019-08-12] MEDS: Levothyroxine 125mcg tab GT SCH (05:22)
[2019-08-12] MEDS: clonazePAM 0.5mg tab GT SCH ×2 (05:22→11:40)
--- NOTE | 2019-08-12 07:18 | NUR ---
HAND-OFF: Report given to Wilson BOND.
[2019-08-12 08:00] VITALS: BP 158/68
--- NOTE | 2019-08-12 08:07 | NUR ---
NURSE NOTES: Received pt from CRISTOBAL BOND. Pt is non verbal and drowsy. pt has tracheostomy with 5LMP. Pt has intact iv access L wrist 24G is SL. Pt has g tube in place is working well. waiting for legal guardian to sign consent form for EGD. all needs attended, bed is locked and is in the lowest position, call light within easy reach. will continue to monitor.
--- NOTE | 2019-08-12 08:15 | NUR ---
NURSE NOTES: Dr HUMPHRIES is notified about HR 122 T 99.7 and other V/S and lab results, waiting to call back. will continue to monitor.
[2019-08-12] MEDS: Memantine 5 MG TAB ORAL SCH (08:46)
[2019-08-12] MEDS: Ascorbic Acid 500mg tab GT SCH (08:46)
[2019-08-12] MEDS: Docusate 100mg/10ml Liq GT SCH ×2 (08:47→17:04)
[2019-08-12] MEDS: Heparin 5000 units/ml inj SUBQ SCH ×2 (08:49→20:33)
[2019-08-12] MEDS: Pantoprazole Inj IVP SCH ×2 (08:49→20:32)
--- NOTE | 2019-08-12 09:16 | NUR ---
RESPIRATORY NOTES: Assessed patient due to SOB. Patients HR is in the high 120s. Minimal rhonchi heard when taking breath sounds. Suctioned moderate amount of thick green secretions. Spoke with RN Afsoon about putting an order for Atrovent because of patients high heat rate. Will continue to assess throughout the day.
--- NOTE | 2019-08-12 09:23 | General Progress Note ---
Assessment/Plan Problem List: (1) Decubitus skin ulcer ICD Codes: L89.90 - Pressure ulcer of unspecified site, unspecified stage SNOMED: 566947933 (2) Hypernatremia ICD Codes: E87.0 - Hyperosmolality and hypernatremia SNOMED: 43190152 (3) Hypotension ICD Codes: I95.9 - Hypotension, unspecified SNOMED: 94148212 (4) Anemia ICD Codes: D64.9 - Anemia, unspecified SNOMED: 746154048 (5) Seizure disorder ICD Codes: G40.909 - Epilepsy, unspecified, not intractable, without status epilepticus SNOMED: 561387836 (6) Septic shock ICD Codes: A41.9 - Sepsis, unspecified organism; R65.21 - Severe sepsis with septic shock SNOMED: 24331904 (7) HTN (hypertension) ICD Codes: I10 - Essential (primary) hypertension SNOMED: 54102120 (8) Cardiomyopathy ICD Codes: I42.9 - Cardiomyopathy, unspecified SNOMED: 88274274 (9) Sepsis ICD Codes: A41.9 - Sepsis, unspecified organism SNOMED: 04657776 Qualifiers: Qualified Codes: A41.9 - Sepsis, unspecified organism (10) Acute and chronic respiratory failure ICD Codes: J96.20 - Acute and chronic respiratory failure, unspecified whether with hypoxia or hypercapnia SNOMED: 75444246 (11) Tracheostomy care ICD Codes: Z43.0 - Encounter for attention to tracheostomy SNOMED: 724668640 (12) Bowel obstruction ICD Codes: K56.609 - Unspecified intestinal obstruction, unspecified as to partial versus complete obstruction SNOMED: 44069625 (13) Feeding by G-tube ICD Codes: Z93.1 - Gastrostomy status SNOMED: 852112041, 765860368 (14) Malfunction of gastrostomy tube ICD Codes: K94.23 - Gastrostomy malfunction SNOMED: 993503777 (15) Chronic respiratory failure ICD Codes: J96.10 - Chronic respiratory failure, unspecified whether with hypoxia or hypercapnia SNOMED: 64808352 Qualifiers: Qualified Codes: J96.10 - Chronic respiratory failure, unspecified whether with hypoxia or hypercapnia (16) Chronic vegetative state ICD Codes: R40.3 - Persistent vegetative state SNOMED: 03796994 (17) Nosocomial pneumonia ICD Codes: J18.9 - Pneumonia, unspecified organism SNOMED: 943621714 (18) Fecal impaction ICD Codes: K56.41 - Fecal impaction SNOMED: 21346695 (19) ATN (acute tubular necrosis) ICD Codes: N17.0 - Acute kidney failure with tubular necrosis SNOMED: 20376794 (20) Ileus ICD Codes: K56.7 - Ileus, unspecified SNOMED: 474749669 (21) Acute on chronic renal failure ICD Codes: N17.9 - Acute kidney failure, unspecified; N18.9 - Chronic kidney disease, unspecified SNOMED: 250305086 (22) UTI (urinary tract infection) ICD Codes: N39.0 - Urinary tract infection, site not specified SNOMED: 97144329 (23) Anemia ICD Codes: D64.9 - Anemia, unspecified SNOMED: 068887025 Status: unchanged Assessment/Plan: o2 pulm tx trach care abx diet cbc bmp am heme gi eval Subjective Constitutional: Reports: weakness Allergies: Coded Allergies: ASPIRIN (Verified Allergy, Unknown, 07/07/17) All Systems: reviewed and negative except above Subjective trach aerosol calm Objective Last 24 Hour Vital Signs Date Time Temp Pulse Resp B/P (MAP) Pulse Ox O2 Delivery O2 Flow Rate FiO2 08/12/19 08:07 97 T-Piece 5.0 28 08/12/19 04:28 5.0 28 08/12/19 04:00 99.0 103 20 125/60 (81) 95 08/12/19 01:02 99 T-Piece 5.0 28 08/12/19 00:00 99.0 109 25 126/61 (82) 08/11/19 21:01 Trach Collar 5.0 08/11/19 20:08 99.4 100 26 136/69 (91) 95 08/11/19 20:08 5.0 28 08/11/19 19:00 97 T-Piece 5.0 28 08/11/19 16:00 5.0 28 08/11/19 16:00 98.7 72 18 121/69 (86) 96 08/11/19 13:05 97 T-Piece 5.0 28 08/11/19 12:00 97.9 83 18 119/61 (80) 97 08/11/19 12:00 5.0 28 Intake and Output 08/11/19 08/12/19 19:00 07:00 Intake Total 1160 ml 900 ml Balance 1160 ml 900 ml Free Water 200 ml 100 ml Tube Feeding 960 ml 800 ml Height (Feet): 5 Height (Inches): 8.00 Weight (Pounds): 126 General Appearance: lethargic EENT: normal ENT inspection Neck: normal alignment Cardiovascular: normal peripheral pulses, normal rate, regular rhythm Respiratory/Chest: chest wall non-tender, lungs clear, normal breath sounds Abdomen: normal bowel sounds, non tender, soft Extremities: normal inspection Edema: no edema noted Arm (L), no edema noted Arm (R), no edema noted Leg (L), no edema noted Leg (R), no edema noted Pedal (L), no edema noted Pedal (R), no edema noted Generalized Neurologic: motor weakness Skin: normal pigmentation, warm/dry Rl White DO Aug 12, 2019 09:23
[2019-08-12 09:37] LABS: BASOPHILS % (AUTO) 0.7 % (0.0-2.0); EOSINOPHILS % (AUTO) 3.1 % (0.0-3.0); HEMATOCRIT 30.9 % (37.0-47.0); HEMOGLOBIN 9.9 G/DL (12.0-16.0); MEAN CORPUSCULAR VOLUME 92 FL (80-99); MONOCYTES % (AUTO) 3.8 % (1.0-10.0); NEUTROPHILS % (AUTO) 76.4 % (45.0-75.0); PLATELET COUNT 315 K/UL (150-450); RED BLOOD COUNT 3.34 M/UL (4.20-5.40); RED CELL DISTRIBUTION WIDTH 12.6 % (11.6-14.8); WHITE BLOOD COUNT 13.1 K/UL (4.8-10.8)
--- NOTE | 2019-08-12 09:41 | Nephrology Progress Note ---
Assessment/Plan Problem List: (1) Dehydration Assessment: improving (2) Hypernatremia Assessment: improving (3) Anemia (4) Seizure disorder (5) UTI (urinary tract infection) (6) Hypothyroidism Assessment Renal failure mainly prerenal dehydration / Hypernatremia free water deficit Anemia PEG UTI / Pneumonia HypoThyroidism Plan DC K supplement Watch serum Cr Albumin bolus D5W IV Smith blood sugar check monitor renal parameters Subjective ROS Limited/Unobtainable: No Constitutional: Reports: malaise, weakness Objective Objective Last 24 Hour Vital Signs Date Time Temp Pulse Resp B/P (MAP) Pulse Ox O2 Delivery O2 Flow Rate FiO2 08/12/19 08:07 97 T-Piece 5.0 28 08/12/19 04:28 5.0 28 08/12/19 04:00 99.0 103 20 125/60 (81) 95 08/12/19 01:02 99 T-Piece 5.0 28 08/12/19 00:00 99.0 109 25 126/61 (82) 08/11/19 21:01 Trach Collar 5.0 08/11/19 20:08 99.4 100 26 136/69 (91) 95 08/11/19 20:08 5.0 28 08/11/19 19:00 97 T-Piece 5.0 28 08/11/19 16:00 5.0 28 08/11/19 16:00 98.7 72 18 121/69 (86) 96 08/11/19 13:05 97 T-Piece 5.0 28 08/11/19 12:00 97.9 83 18 119/61 (80) 97 08/11/19 12:00 5.0 28 Intake and Output 08/11/19 08/12/19 19:00 07:00 Intake Total 1160 ml 900 ml Balance 1160 ml 900 ml Free Water 200 ml 100 ml Tube Feeding 960 ml 800 ml Laboratory Tests 08/12/19 09:15: White Blood Count 13.1#H, Red Blood Count 3.34L, Hemoglobin 9.9L, Hematocrit 30.9L, Mean Corpuscular Volume 92, Mean Corpuscular Hemoglobin 29.7, Mean Corpuscular Hemoglobin Concent 32.1, Red Cell Distribution Width 12.6, Platelet Count 315, Mean Platelet Volume 7.9, Neutrophils (%) (Auto) 76.4H, Lymphocytes ( %) (Auto) 16.0L, Monocytes (%) (Auto) 3.8, Eosinophils (%) (Auto) 3.1H, Basophils (%) (Auto) 0.7, Sodium Level [Pending], Potassium Level [Pending], Chloride Level [Pending], Carbon Dioxide Level [Pending], Blood Urea Nitrogen [ Pending], Creatinine [Pending], Estimat Glomerular Filtration Rate [Pending], Glucose Level [Pending], Calcium Level [Pending], Total Bilirubin [Pending], Aspartate Amino Transf (AST/SGOT) [Pending], Alanine Aminotransferase (ALT/SGPT ) [Pending], Alkaline Phosphatase [Pending], Pro-B-Type Natriuretic Peptide [ Pending], Total Protein [Pending], Albumin [Pending], Globulin [Pending] Height (Feet): 5 Height (Inches): 8.00 Weight (Pounds): 126 General Appearance: no apparent distress Objective no change Tono Case MD Aug 12, 2019 09:41
[2019-08-12 10:01] LABS: ALANINE AMINOTRANSFERASE 35 U/L (12-78); ALBUMIN 2.9 G/DL (3.4-5.0); ALBUMIN/GLOBULIN RATIO 0.5 (1.0-2.7); ALKALINE PHOSPHATASE 129 U/L (46-116); ANION GAP 9 mmol/L (5-15); ASPARTATE AMINO TRANSFERASE 27 U/L (15-37); BILIRUBIN,TOTAL 0.3 MG/DL (0.2-1.0); BLOOD UREA NITROGEN 23 mg/dL (7-18); CALCIUM 9.5 MG/DL (8.5-10.1); CARBON DIOXIDE 26 MMOL/L (21-32); CHLORIDE 110 MMOL/L (98-107); CREATININE 1.2 MG/DL (0.55-1.30); POTASSIUM 4.4 MMOL/L (3.5-5.1); SODIUM 145 MMOL/L (136-145)
--- NOTE | 2019-08-12 10:05 | General Progress Note ---
Assessment/Plan Problem List: (1) Acute on chronic renal failure ICD Codes: N17.9 - Acute kidney failure, unspecified; N18.9 - Chronic kidney disease, unspecified SNOMED: 445882942 (2) Chronic vegetative state ICD Codes: R40.3 - Persistent vegetative state SNOMED: 72863992 (3) Chronic respiratory failure ICD Codes: J96.10 - Chronic respiratory failure, unspecified whether with hypoxia or hypercapnia SNOMED: 32412617 Qualifiers: Qualified Codes: J96.10 - Chronic respiratory failure, unspecified whether with hypoxia or hypercapnia (4) Feeding by G-tube ICD Codes: Z93.1 - Gastrostomy status SNOMED: 121554263, 466981097 (5) HTN (hypertension) ICD Codes: I10 - Essential (primary) hypertension SNOMED: 04617265 (6) Anemia ICD Codes: D64.9 - Anemia, unspecified SNOMED: 244100725 Status: unchanged Assessment/Plan: EGD and colonoscopy on hold for now d/w with public guardian patient is DNR with limited interventions must be reviewed prior decision stool ob neg.>>>>neg monitor H&H, prn transfusions PPI daily GTF colace and miralax Subjective ROS Limited/Unobtainable: No Allergies: Coded Allergies: ASPIRIN (Verified Allergy, Unknown, 07/07/17) Objective Last 24 Hour Vital Signs Date Time Temp Pulse Resp B/P (MAP) Pulse Ox O2 Delivery O2 Flow Rate FiO2 08/12/19 08:07 97 T-Piece 5.0 28 08/12/19 04:28 5.0 28 08/12/19 04:00 99.0 103 20 125/60 (81) 95 08/12/19 01:02 99 T-Piece 5.0 28 08/12/19 00:00 99.0 109 25 126/61 (82) 08/11/19 21:01 Trach Collar 5.0 08/11/19 20:08 99.4 100 26 136/69 (91) 95 08/11/19 20:08 5.0 28 08/11/19 19:00 97 T-Piece 5.0 28 08/11/19 16:00 5.0 28 08/11/19 16:00 98.7 72 18 121/69 (86) 96 08/11/19 13:05 97 T-Piece 5.0 28 08/11/19 12:00 97.9 83 18 119/61 (80) 97 08/11/19 12:00 5.0 28 Intake and Output 08/11/19 08/12/19 19:00 07:00 Intake Total 1160 ml 900 ml Balance 1160 ml 900 ml Free Water 200 ml 100 ml Tube Feeding 960 ml 800 ml Laboratory Tests 08/12/19 09:15: White Blood Count 13.1#H, Red Blood Count 3.34L, Hemoglobin 9.9L, Hematocrit 30.9L, Mean Corpuscular Volume 92, Mean Corpuscular Hemoglobin 29.7, Mean Corpuscular Hemoglobin Concent 32.1, Red Cell Distribution Width 12.6, Platelet Count 315, Mean Platelet Volume 7.9, Neutrophils (%) (Auto) 76.4H, Lymphocytes ( %) (Auto) 16.0L, Monocytes (%) (Auto) 3.8, Eosinophils (%) (Auto) 3.1H, Basophils (%) (Auto) 0.7, Sodium Level 145, Potassium Level 4.4, Chloride Level 110H, Carbon Dioxide Level 26, Anion Gap 9, Blood Urea Nitrogen 23H, Creatinine 1.2, Estimat Glomerular Filtration Rate , Glucose Level 133H, Calcium Level 9.5 , Total Bilirubin 0.3, Aspartate Amino Transf (AST/SGOT) 27, Alanine Aminotransferase (ALT/SGPT) 35, Alkaline Phosphatase 129H, Pro-B-Type Natriuretic Peptide 610H, Total Protein 9.0H, Albumin 2.9L, Globulin 6.1, Albumin/Globulin Ratio 0.5L Height (Feet): 5 Height (Inches): 8.00 Weight (Pounds): 126 General Appearance: no apparent distress EENT: normal ENT inspection Neck: supple Cardiovascular: normal rate Respiratory/Chest: decreased breath sounds Abdomen: normal bowel sounds, non tender, soft Extremities: non-tender Jad Skinner MD Aug 12, 2019 10:05
--- NOTE | 2019-08-12 10:20 | NUR ---
NURSE NOTES: Dr HUPMHRIES called back and ordered to consult Dr ELI, Dr ELI notified and ordered ECG STAT, noted and carried out. will continue to monitor.
--- NOTE | 2019-08-12 10:49 | NUR ---
NURSE NOTES: STAT ECG DONE AND DR ELI IS AWARE ABOUT THE RESULTS, ORDERS NOTED AND CARRIED OUT, WILL CONTINUE TO MONITOR.
[2019-08-12] MEDS ORDERED: Digoxin 0.5mg/2ml Inj IVP SCH (11:00)
--- NOTE | 2019-08-12 11:19 | Infectious Diseases Prog Note ---
Assessment/Plan Assessment/Plan Assessment: Sepsis Probable UTI -u/a wbc tnct; ucx >100k P. mirabilis, probable AMP-c -BCx Neg Probable PNA -08/07 CXR: probably unchanged bilateral diffuse interstitial and airspace disease, right greater than left. Atelectatic changes at the left lung base are again noted. -CXR: Bilateral interstitial disease, may be on the basis of pulmonary edema or may reflect inflammatory changes. This is similar to the previous study of 01/02/2019, 70 may also be a chronic component -influenza sc neg -sp cx GNR Leukocytosis; SP Low grade fever; improving Hypernatremia, SP JAMES, improving hx of PNA -12/2018 sp cx PsA -10/2017 MDR PSA, H. flu hx of septic shock with MDRO hx of MDR ABC VAP 2016 hx of b/l pneumothorax 12/2018 HTN seizure disorder Dementia CVA/TIA quadriplegia chronic resp failure s/p trac/vent dependant dysphagia s/p PEG COPD SNF resident Plan: - Start Bactrim #1 - Start Amikacin #1 - f/u P.a. Sensitivities for Avycaz, Zerbaxa, Aztreonam and Colistin -08/11/19 S/P Meropenem #5 -08/11/19 S/P IV Vancomycin #6 -08/08 SP Cefepime #3 -08/06 SP Zosyn x1 -f/u cx -Monitor CBC/CMP, temperatures -peg/trach care -aspiration precautions Thank you for this consultation. Will continue to follow along with you. Subjective Allergies: Coded Allergies: ASPIRIN (Verified Allergy, Unknown, 07/07/17) Subjective Low grade fevers Leukocytosis increasing Resistant P.a. in sputum Objective Vital Signs Last 24 Hour Vital Signs Date Time Temp Pulse Resp B/P (MAP) Pulse Ox O2 Delivery O2 Flow Rate FiO2 08/12/19 08:07 97 T-Piece 5.0 28 08/12/19 08:00 99.7 122 24 158/68 (98) 98 08/12/19 04:28 5.0 28 08/12/19 04:00 99.0 103 20 125/60 (81) 95 08/12/19 01:02 99 T-Piece 5.0 28 08/12/19 00:00 99.0 109 25 126/61 (82) 08/11/19 21:01 Trach Collar 5.0 08/11/19 20:08 99.4 100 26 136/69 (91) 95 08/11/19 20:08 5.0 28 08/11/19 19:00 97 T-Piece 5.0 28 08/11/19 16:00 5.0 28 08/11/19 16:00 98.7 72 18 121/69 (86) 96 08/11/19 13:05 97 T-Piece 5.0 28 08/11/19 12:00 97.9 83 18 119/61 (80) 97 08/11/19 12:00 5.0 28 Height (Feet): 5 Height (Inches): 8.00 Weight (Pounds): 126 Objective General Appearance: cachetic, thin female HEENT: normocephalic, atraumatic, PERRL Respiratory/Chest: Coarse B/L Cardiovascular/Chest: RRR, S1, S2 Abdomen: normal bowel sounds, non tender Laboratory Tests Test 08/12/19 09:15 White Blood Count 13.1 K/UL (4.8-10.8) #H Red Blood Count 3.34 M/UL (4.20-5.40) L Hemoglobin 9.9 G/DL (12.0-16.0) L Hematocrit 30.9 % (37.0-47.0) L Mean Corpuscular Volume 92 FL (80-99) Mean Corpuscular Hemoglobin 29.7 PG (27.0-31.0) Mean Corpuscular Hemoglobin Concent 32.1 G/DL (32.0-36.0) Red Cell Distribution Width 12.6 % (11.6-14.8) Platelet Count 315 K/UL (150-450) Mean Platelet Volume 7.9 FL (6.5-10.1) Neutrophils (%) (Auto) 76.4 % (45.0-75.0) H Lymphocytes (%) (Auto) 16.0 % (20.0-45.0) L Monocytes (%) (Auto) 3.8 % (1.0-10.0) Eosinophils (%) (Auto) 3.1 % (0.0-3.0) H Basophils (%) (Auto) 0.7 % (0.0-2.0) Sodium Level 145 MMOL/L (136-145) Potassium Level 4.4 MMOL/L (3.5-5.1) Chloride Level 110 MMOL/L (98-107) H Carbon Dioxide Level 26 MMOL/L (21-32) Anion Gap 9 mmol/L (5-15) Blood Urea Nitrogen 23 mg/dL (7-18) H Creatinine 1.2 MG/DL (0.55-1.30) Estimat Glomerular Filtration Rate mL/min (>60) Glucose Level 133 MG/DL (74-106) H Calcium Level 9.5 MG/DL (8.5-10.1) Total Bilirubin 0.3 MG/DL (0.2-1.0) Aspartate Amino Transf (AST/SGOT) 27 U/L (15-37) Alanine Aminotransferase (ALT/SGPT) 35 U/L (12-78) Alkaline Phosphatase 129 U/L (46-116) H Pro-B-Type Natriuretic Peptide 610 pg/mL (0-125) H Total Protein 9.0 G/DL (6.4-8.2) H Albumin 2.9 G/DL (3.4-5.0) L Globulin 6.1 g/dL Albumin/Globulin Ratio 0.5 (1.0-2.7) L Current Medications Medications (Trade) Dose Ordered Sig/Torsten Route PRN Reason Start Time Stop Time Status Last Admin Dose Admin Acetaminophen (Tylenol) 650 mg Q4H PRN GT fever (temp>100.5F) 08/06/19 20:00 09/05/19 19:59 08/09/19 22:01 Acetaminophen (Tylenol) 650 mg Q4H PRN GT headache, mild pain 08/06/19 20:00 09/05/19 19:59 Ascorbic Acid (Vitamin C) 250 mg TWICE A DAY GT 08/07/19 09:00 09/06/19 08:59 08/12/19 08:46 Clonazepam (KlonoPIN) 0.5 mg Q6HR GT 08/07/19 00:00 08/13/19 07:01 08/12/19 05:22 Digoxin (Lanoxin) 0.125 mg DAILY GT 08/13/19 09:00 09/12/19 08:59 Digoxin (Lanoxin) 0.25 mg ONCE IVP 08/12/19 11:00 08/12/19 13:00 Diltiazem HCl (Cardizem) 30 mg EVERY 8 HOURS GT 08/12/19 12:00 09/11/19 11:59 Docusate Sodium (Colace) 100 mg BID GT 08/09/19 18:00 09/08/19 17:59 08/12/19 08:47 Heparin Sodium (Porcine) (Heparin 5000 units/ml) 5,000 units EVERY 12 HOURS SUBQ 08/06/19 21:00 09/05/19 08:59 08/12/19 08:49 Levothyroxine Sodium (Synthroid) 125 mcg Q24H GT 08/07/19 06:30 09/06/19 06:29 08/12/19 05:22 Memantine (Namenda) 5 mg BID ORAL 08/08/19 09:00 09/07/19 08:59 08/12/19 08:46 Meropenem 1 gm/ Sodium Chloride 55 ml @ 110 mls/hr Q12H IVPB 08/08/19 14:00 08/13/19 13:59 08/12/19 01:52 Nitroglycerin (Ntg) 0.4 mg Q5M PRN SL Prn Chest Pain 08/06/19 19:00 09/05/19 06:59 Ondansetron HCl (Zofran) 4 mg Q6H PRN IVP Nausea & Vomiting 08/06/19 19:00 09/05/19 06:59 Pantoprazole (Protonix) 40 mg EVERY 12 HOURS IVP 08/06/19 21:00 09/05/19 10:59 08/12/19 08:49 Polyethylene Glycol (Miralax) 17 gm DAILYPRN PRN GT Constipation 08/06/19 20:00 09/05/19 19:59 Promethazine HCl/ Codeine (Phenergan with Codeine) 5 ml Q4H PRN GT For Cough 08/06/19 19:00 09/05/19 06:59 Temazepam (Restoril) 15 mg HSPRN PRN GT Insomnia 08/06/19 21:00 08/13/19 20:59 Trazodone HCl (Desyrel) 50 mg BEDTIME PRN GT insomnia 08/06/19 21:00 09/05/19 06:59 Martin Vance MD Aug 12, 2019 11:19
[2019-08-12] MEDS ORDERED: Amikacin Rx to dose MISC PRN (11:30)
[2019-08-12] MEDS: dilTIAZem HCl 30mg tab GT SCH ×2 (11:42→22:19)
[2019-08-12 12:00] VITALS: BP 141/71
--- NOTE | 2019-08-12 12:00 | NUR ---
NURSE NOTES: the rest of the med digoxin iv wasted in med room.
--- NOTE | 2019-08-12 13:23 | Pulmonology Progress Note ---
Assessment/Plan Problems: (1) Nosocomial pneumonia (2) Acute on chronic renal failure (3) Chronic respiratory failure (4) Tracheostomy care (5) Cardiomyopathy (6) Seizure disorder (7) Feeding by G-tube (8) Chronic vegetative state Assessment/Plan WBC is highercheck cultures, Urine has Proteus Mirabilis, sputum has pseudomonas iv abx, Amikacin and Bactrim IV continue gtube feeding tracheostomy care dvt prophylaxis check CXR in am all meds reviewed. some discontinued Subjective ROS Limited/Unobtainable: Yes Constitutional: Reports: no symptoms HEENT: Repors: no symptoms Allergies: Coded Allergies: ASPIRIN (Verified Allergy, Unknown, 07/07/17) Objective Last 24 Hour Vital Signs Date Time Temp Pulse Resp B/P (MAP) Pulse Ox O2 Delivery O2 Flow Rate FiO2 08/12/19 12:00 5.0 28 08/12/19 12:00 99.0 108 22 141/71 (94) 99 08/12/19 11:42 108 141/71 08/12/19 11:40 108 08/12/19 08:07 97 T-Piece 5.0 28 08/12/19 08:00 5.0 28 08/12/19 08:00 99.7 122 24 158/68 (98) 98 08/12/19 04:28 5.0 28 08/12/19 04:00 99.0 103 20 125/60 (81) 95 08/12/19 01:02 99 T-Piece 5.0 28 08/12/19 00:00 99.0 109 25 126/61 (82) 08/11/19 21:01 Trach Collar 5.0 08/11/19 20:08 99.4 100 26 136/69 (91) 95 08/11/19 20:08 5.0 28 08/11/19 19:00 97 T-Piece 5.0 28 08/11/19 16:00 5.0 28 08/11/19 16:00 98.7 72 18 121/69 (86) 96 Intake and Output 08/11/19 08/12/19 19:00 07:00 Intake Total 1160 ml 900 ml Balance 1160 ml 900 ml Free Water 200 ml 100 ml Tube Feeding 960 ml 800 ml General Appearance: cachetic HEENT: status post trach Respiratory/Chest: crackles/rales, rhonchi Breasts: no masses Cardiovascular: normal peripheral pulses Abdomen: normal bowel sounds Genitourinary: normal external genitalia Extremities: no cyanosis Skin: no rash Laboratory Tests 08/12/19 09:15: White Blood Count 13.1#H, Red Blood Count 3.34L, Hemoglobin 9.9L, Hematocrit 30.9L, Mean Corpuscular Volume 92, Mean Corpuscular Hemoglobin 29.7, Mean Corpuscular Hemoglobin Concent 32.1, Red Cell Distribution Width 12.6, Platelet Count 315, Mean Platelet Volume 7.9, Neutrophils (%) (Auto) 76.4H, Lymphocytes ( %) (Auto) 16.0L, Monocytes (%) (Auto) 3.8, Eosinophils (%) (Auto) 3.1H, Basophils (%) (Auto) 0.7, Sodium Level 145, Potassium Level 4.4, Chloride Level 110H, Carbon Dioxide Level 26, Anion Gap 9, Blood Urea Nitrogen 23H, Creatinine 1.2, Estimat Glomerular Filtration Rate , Glucose Level 133H, Calcium Level 9.5 , Total Bilirubin 0.3, Aspartate Amino Transf (AST/SGOT) 27, Alanine Aminotransferase (ALT/SGPT) 35, Alkaline Phosphatase 129H, Pro-B-Type Natriuretic Peptide 610H, Total Protein 9.0H, Albumin 2.9L, Globulin 6.1, Albumin/Globulin Ratio 0.5L Current Medications Medications (Trade) Dose Ordered Sig/Torsten Route PRN Reason Start Time Stop Time Status Last Admin Dose Admin Acetaminophen (Tylenol) 650 mg Q4H PRN GT fever (temp>100.5F) 08/06/19 20:00 09/05/19 19:59 08/09/19 22:01 Acetaminophen (Tylenol) 650 mg Q4H PRN GT headache, mild pain 08/06/19 20:00 09/05/19 19:59 Amikacin Protocol (Amikacin pharmacy to dose) 1 ea DAILY PRN MISC Per rx protocol 08/12/19 11:30 09/11/19 11:29 Amikacin Sulfate 850 mg/Sodium Chloride 113.4 ml @ 113.4 mls/ hr Q48H IV 08/12/19 14:00 08/19/19 13:59 Ascorbic Acid (Vitamin C) 250 mg TWICE A DAY GT 08/07/19 09:00 09/06/19 08:59 08/12/19 08:46 Clonazepam (KlonoPIN) 0.5 mg Q6HR GT 08/07/19 00:00 08/13/19 07:01 08/12/19 11:40 Digoxin (Lanoxin) 0.125 mg DAILY GT 08/13/19 09:00 09/12/19 08:59 Diltiazem HCl (Cardizem) 30 mg EVERY 8 HOURS GT 08/12/19 12:00 09/11/19 11:59 08/12/19 11:42 Docusate Sodium (Colace) 100 mg BID GT 08/09/19 18:00 09/08/19 17:59 08/12/19 08:47 Heparin Sodium (Porcine) (Heparin 5000 units/ml) 5,000 units EVERY 12 HOURS SUBQ 08/06/19 21:00 09/05/19 08:59 08/12/19 08:49 Levothyroxine Sodium (Synthroid) 125 mcg Q24H GT 08/07/19 06:30 09/06/19 06:29 08/12/19 05:22 Memantine (Namenda) 5 mg BID ORAL 08/08/19 09:00 09/07/19 08:59 08/12/19 08:46 Nitroglycerin (Ntg) 0.4 mg Q5M PRN SL Prn Chest Pain 08/06/19 19:00 09/05/19 06:59 Ondansetron HCl (Zofran) 4 mg Q6H PRN IVP Nausea & Vomiting 08/06/19 19:00 09/05/19 06:59 Pantoprazole (Protonix) 40 mg EVERY 12 HOURS IVP 08/06/19 21:00 09/05/19 10:59 08/12/19 08:49 Polyethylene Glycol (Miralax) 17 gm DAILYPRN PRN GT Constipation 08/06/19 20:00 09/05/19 19:59 Promethazine HCl/ Codeine (Phenergan with Codeine) 5 ml Q4H PRN GT For Cough 08/06/19 19:00 09/05/19 06:59 Temazepam (Restoril) 15 mg HSPRN PRN GT Insomnia 08/06/19 21:00 08/13/19 20:59 Trazodone HCl (Desyrel) 50 mg BEDTIME PRN GT insomnia 08/06/19 21:00 09/05/19 06:59 Trimethoprim/ Sulfamethoxazole 50 ml/Dextrose 600 ml @ 400 mls/hr [id number] BACTRIM IV 08/12/19 16:00 08/19/19 15:59 Sue Yu MD Aug 12, 2019 13:23
--- NOTE | 2019-08-12 13:46 | NUR ---
RADIOLOGY DEPT., CHEST X-RAY DONE BY GEOVANNY LOVETT
[2019-08-12] MEDS ORDERED: Amikacin 850 MG in NS 110 ML IV SCH (14:00)
--- NOTE | 2019-08-12 14:30 | Progress Note ---
DATE: 08/12/2019 SUBJECTIVE: She is an 84-year-old female patient with hypernatremia, but she has got altered mental status, high levels of anxiety, and mood lability worsened by stress of her medical illness. MENTAL STATUS EXAMINATION: This is an 84-year-old female. Appearance is disheveled. Attitude, irritable and agitated. Affect, guarded and restricted. Intellect poor. Mood, depressed and anxious. Motor activity, psychomotor agitation. Attention span is poor. Orientation x2. Speech is pressured. Thought process, disorganized and illogical. Insight and judgment is poor. DIAGNOSIS: Major depressive disorder, mild, recurrent with psychotic features, rule out generalized anxiety disorder. PLAN: Treat her with Klonopin 0.5 mg per G-tube every 6 hours p.r.n., trazodone 50 mg at bedtime p.r.n., Namenda 5 mg per G-tube twice a day. 20 minutes of behavioral management provided. Chart reviewed. Discussed with staff. Seen and assessed in her room. Steven Dunlap M.D. DR: HENOK JOB#: [id number] CC:
--- NOTE | 2019-08-12 14:59 | Hematology/Onc Progress Note ---
Assessment/Plan Assessment/Plan Assessment and Recs: # Anemia of chronic disease due to underlying chronic medical issues, multifactorial --> Anemia workup has been reviewed, ferritin is 610--?853 --> No evidence of hemolysis is noted, peripheral smear has been reviewed. --> Hgb goal >7. Transfuse prn. --> Epogen or iron at this time is not particularly indicated --> Medications have been reviewed --> evaluate with Gi team prn --> currently dnr, HOLDING OFF colo and egd --> transfuse if hgb is < 7 (will trend CBC daily) --> stool ob is negative --> hgb trend 8.3-->8.2 -->9.9 stool ob negative # Leukocytosis on admission due to sepsis --> due to uti per id --> on vanc/cefe-->meropenem-->bactrim/amik --> wbc trend: 6.9->13 # Acute on chronic Renal failure --> per renal --> cr has improved --> 1.6-->1.3 # Acute on chronic respiratory failure s/p trach with revision --> Pneumothorax s/p chest tube HISTory # UTI # HypoAlbuminemia # HTN # PEG with Fecal impaction # Dvt ppx scds/heparin The timing of this note does not necessarily reflect the time of the patient was seen. Greatly appreciate consultation! Subjective Constitutional: Denies: no symptoms, chills, fever, malaise, weakness, other Respiratory: Denies: no symptoms, cough, shortness of breath, SOB with excertion, SOB at rest, sputum, wheezing, other Genitourinary: Denies: no symptoms, burning, discharge, frequency, flank pain, hematuria, incontinence, pain, urgency, other Neurologic/Psychiatric: Denies: no symptoms, anxiety, depressed, emotional problems, headache, numbness, paresthesia, pre-existing deficit, seizure, tingling, tremors, weakness, other Endocrine: Denies: no symptoms, excessive sweating, flushing, intolerance to cold, intolerance to heat, increased hunger, increased thirst, increased urine, unexplained weight gain, unexplained weight loss, other Allergies: Coded Allergies: ASPIRIN (Verified Allergy, Unknown, 07/07/17) Subjective 08/11: no acute events, trach, h/h stable, on abx 08/12: no major changes, remains on trach, no f/c noted wbc 13 Objective Objective Current Medications Medications (Trade) Dose Ordered Sig/Torsten Route PRN Reason Start Time Stop Time Status Last Admin Dose Admin Acetaminophen (Tylenol) 650 mg Q4H PRN GT fever (temp>100.5F) 08/06/19 20:00 09/05/19 19:59 08/09/19 22:01 Acetaminophen (Tylenol) 650 mg Q4H PRN GT headache, mild pain 08/06/19 20:00 09/05/19 19:59 Amikacin Protocol (Amikacin pharmacy to dose) 1 ea DAILY PRN MISC Per rx protocol 08/12/19 11:30 09/11/19 11:29 Amikacin Sulfate 850 mg/Sodium Chloride 113.4 ml @ 113.4 mls/ hr Q48H IV 08/12/19 14:00 08/19/19 13:59 08/12/19 14:22 Digoxin (Lanoxin) 0.125 mg DAILY GT 08/13/19 09:00 09/12/19 08:59 Diltiazem HCl (Cardizem) 30 mg EVERY 8 HOURS GT 08/12/19 12:00 09/11/19 11:59 08/12/19 11:42 Docusate Sodium (Colace) 100 mg BID GT 08/09/19 18:00 09/08/19 17:59 08/12/19 08:47 Heparin Sodium (Porcine) (Heparin 5000 units/ml) 5,000 units EVERY 12 HOURS SUBQ 08/06/19 21:00 09/05/19 08:59 08/12/19 08:49 Levothyroxine Sodium (Synthroid) 125 mcg Q24H GT 08/07/19 06:30 09/06/19 06:29 08/12/19 05:22 Pantoprazole (Protonix) 40 mg EVERY 12 HOURS IVP 08/06/19 21:00 09/05/19 10:59 08/12/19 08:49 Temazepam (Restoril) 15 mg HSPRN PRN GT Insomnia 08/06/19 21:00 08/13/19 20:59 Trimethoprim/ Sulfamethoxazole 50 ml/Dextrose 600 ml @ 400 mls/hr [id number] BACTRIM IV 08/12/19 16:00 08/19/19 15:59 Last 24 Hour Vital Signs Date Time Temp Pulse Resp B/P (MAP) Pulse Ox O2 Delivery O2 Flow Rate FiO2 08/12/19 13:00 95 T-Piece 5.0 28 08/12/19 12:00 5.0 28 08/12/19 12:00 99.0 108 22 141/71 (94) 99 08/12/19 11:42 108 141/71 08/12/19 11:40 108 08/12/19 09:00 Trach Collar 5.0 08/12/19 08:07 97 T-Piece 5.0 28 08/12/19 08:00 5.0 28 08/12/19 08:00 99.7 122 24 158/68 (98) 98 08/12/19 04:28 5.0 28 08/12/19 04:00 99.0 103 20 125/60 (81) 95 08/12/19 01:02 99 T-Piece 5.0 28 08/12/19 00:00 99.0 109 25 126/61 (82) 08/11/19 21:01 Trach Collar 5.0 08/11/19 20:08 99.4 100 26 136/69 (91) 95 08/11/19 20:08 5.0 28 08/11/19 19:00 97 T-Piece 5.0 28 08/11/19 16:00 5.0 28 08/11/19 16:00 98.7 72 18 121/69 (86) 96 08/11/19 13:05 97 T-Piece 5.0 28 08/11/19 12:00 97.9 83 18 119/61 (80) 97 08/11/19 12:00 5.0 28 08/11/19 09:00 Trach Collar 5.0 08/11/19 08:00 5.0 28 08/11/19 08:00 98.9 88 19 119/54 (75) 97 08/11/19 07:31 95 T-Piece 5.0 28 08/11/19 04:21 5.0 28 08/11/19 04:00 99.7 90 24 109/60 (76) 95 08/11/19 00:12 100 T-Piece 5.0 28 08/11/19 00:00 99.6 95 25 93/69 (77) 97 08/10/19 21:31 5.0 28 08/10/19 21:30 Trach Collar 5.0 08/10/19 20:00 99.4 93 28 102/59 (73) 95 08/10/19 19:56 100 T-Piece 5.0 28 08/10/19 16:00 5.0 28 08/10/19 16:00 98.7 96 22 123/64 (83) 100 Intake and Output 08/11/19 08/12/19 19:00 07:00 Intake Total 1160 ml 900 ml Balance 1160 ml 900 ml Free Water 200 ml 100 ml Tube Feeding 960 ml 800 ml Labs Test 08/10/19 00:04 08/10/19 07:50 08/11/19 06:00 08/12/19 09:15 Stool Occult Blood Negative (NEGATIVE) White Blood Count 7.7 K/UL (4.8-10.8) 6.9 K/UL (4.8-10.8) 13.1 K/UL (4.8-10.8) Red Blood Count 3.18 M/UL (4.20-5.40) 2.79 M/UL (4.20-5.40) 3.34 M/UL (4.20-5.40) Hemoglobin 9.2 G/DL (12.0-16.0) 8.2 G/DL (12.0-16.0) 9.9 G/DL (12.0-16.0) Hematocrit 29.1 % (37.0-47.0) 25.6 % (37.0-47.0) 30.9 % (37.0-47.0) Mean Corpuscular Volume 92 FL (80-99) 92 FL (80-99) 92 FL (80-99) Mean Corpuscular Hemoglobin 29.0 PG (27.0-31.0) 29.5 PG (27.0-31.0) 29.7 PG (27.0-31.0) Mean Corpuscular Hemoglobin Concent 31.6 G/DL (32.0-36.0) 32.2 G/DL (32.0-36.0) 32.1 G/DL (32.0-36.0) Red Cell Distribution Width 12.8 % (11.6-14.8) 12.7 % (11.6-14.8) 12.6 % (11.6-14.8) Platelet Count 227 K/UL (150-450) 218 K/UL (150-450) 315 K/UL (150-450) Mean Platelet Volume 7.9 FL (6.5-10.1) 7.6 FL (6.5-10.1) 7.9 FL (6.5-10.1) Neutrophils (%) (Auto) 64.7 % (45.0-75.0) 54.7 % (45.0-75.0) 76.4 % (45.0-75.0) Lymphocytes (%) (Auto) 22.6 % (20.0-45.0) 32.0 % (20.0-45.0) 16.0 % (20.0-45.0) Monocytes (%) (Auto) 7.9 % (1.0-10.0) 7.6 % (1.0-10.0) 3.8 % (1.0-10.0) Eosinophils (%) (Auto) 4.4 % (0.0-3.0) 5.3 % (0.0-3.0) 3.1 % (0.0-3.0) Basophils (%) (Auto) 0.5 % (0.0-2.0) 0.4 % (0.0-2.0) 0.7 % (0.0-2.0) Sodium Level 144 MMOL/L (136-145) 145 MMOL/L (136-145) 145 MMOL/L (136-145) Potassium Level 4.1 MMOL/L (3.5-5.1) 4.3 MMOL/L (3.5-5.1) 4.4 MMOL/L (3.5-5.1) Chloride Level 109 MMOL/L (98-107) 111 MMOL/L (98-107) 110 MMOL/L (98-107) Carbon Dioxide Level 22 MMOL/L (21-32) 24 MMOL/L (21-32) 26 MMOL/L (21-32) Anion Gap 13 mmol/L (5-15) 10 mmol/L (5-15) 9 mmol/L (5-15) Blood Urea Nitrogen 19 mg/dL (7-18) 21 mg/dL (7-18) 23 mg/dL (7-18) Creatinine 1.6 MG/DL (0.55-1.30) 1.3 MG/DL (0.55-1.30) 1.2 MG/DL (0.55-1.30) Estimat Glomerular Filtration Rate mL/min (>60) mL/min (>60) mL/min (>60) Glucose Level 100 MG/DL (74-106) 113 MG/DL (74-106) 133 MG/DL (74-106) Calcium Level 9.1 MG/DL (8.5-10.1) 9.0 MG/DL (8.5-10.1) 9.5 MG/DL (8.5-10.1) Random Vancomycin Level 12.2 ug/mL Erythrocyte Sedimentation Rate 131 MM/HR (0-30) Phosphorus Level 3.3 MG/DL (2.5-4.9) Magnesium Level 2.1 MG/DL (1.8-2.4) Total Bilirubin 0.3 MG/DL (0.2-1.0) 0.3 MG/DL (0.2-1.0) Aspartate Amino Transf (AST/SGOT) 23 U/L (15-37) 27 U/L (15-37) Alanine Aminotransferase (ALT/SGPT) 36 U/L (12-78) 35 U/L (12-78) Alkaline Phosphatase 98 U/L (46-116) 129 U/L (46-116) C-Reactive Protein, Quantitative 6.5 mg/dL (0.00-0.90) Total Protein 8.0 G/DL (6.4-8.2) 9.0 G/DL (6.4-8.2) Albumin 2.8 G/DL (3.4-5.0) 2.9 G/DL (3.4-5.0) Globulin 5.2 g/dL 6.1 g/dL Albumin/Globulin Ratio 0.5 (1.0-2.7) 0.5 (1.0-2.7) Pro-B-Type Natriuretic Peptide 610 pg/mL (0-125) Height (Feet): 5 Height (Inches): 8.00 Weight (Pounds): 126 Objective PE Vital Signs reviewed General: lethargic, obese, Stupor Head: at Neck: supple Respiratory: +trach Cardiovascular: tachycardia Gastrointestinal: G-tube in place Msk: Contractures lower extremities Micha Torres MD Aug 12, 2019 14:59
[2019-08-12 16:00] VITALS: BP 128/66
[2019-08-12] MEDS ORDERED: D5W IV SCH ×2 (16:00)
[2019-08-12] MEDS ORDERED: TRIMETHOPRIM IV SCH ×2 (16:00)
[2019-08-12] MEDS ORDERED: SULFAMETHOXAZOLE IV SCH ×2 (16:00)
--- NOTE | 2019-08-12 16:05 | Surgery Progress Note ---
Surgery Progress Note Subjective Additional Comments Patient seen and examined bedside. Still remains very ill-appearing. Leukocytosis. Elevated ESR and CRP. Abnormal labs. Unfortunately prognosis very guarded. On IV antibiotics. Continue with current care plan. Frequent suctioning. Objective Last 24 Hour Vital Signs Date Time Temp Pulse Resp B/P (MAP) Pulse Ox O2 Delivery O2 Flow Rate FiO2 08/12/19 13:00 95 T-Piece 5.0 28 08/12/19 12:00 5.0 28 08/12/19 12:00 99.0 108 22 141/71 (94) 99 08/12/19 11:42 108 141/71 08/12/19 11:40 108 08/12/19 09:00 Trach Collar 5.0 08/12/19 08:07 97 T-Piece 5.0 28 08/12/19 08:00 5.0 28 08/12/19 08:00 99.7 122 24 158/68 (98) 98 08/12/19 04:28 5.0 28 08/12/19 04:00 99.0 103 20 125/60 (81) 95 08/12/19 01:02 99 T-Piece 5.0 28 08/12/19 00:00 99.0 109 25 126/61 (82) 08/11/19 21:01 Trach Collar 5.0 08/11/19 20:08 99.4 100 26 136/69 (91) 95 08/11/19 20:08 5.0 28 08/11/19 19:00 97 T-Piece 5.0 28 I&O Intake and Output 08/11/19 08/12/19 19:00 07:00 Intake Total 1160 ml 900 ml Balance 1160 ml 900 ml Free Water 200 ml 100 ml Tube Feeding 960 ml 800 ml Dressing: saturated Wound: other Drains: other Cardiovascular: RSR Respiratory: decreased breath sounds Abdomen: soft, decreased bowel sounds Extremities: no tenderness, no cyanosis, other Laboratory Tests Test 08/12/19 09:15 White Blood Count 13.1 K/UL (4.8-10.8) #H Red Blood Count 3.34 M/UL (4.20-5.40) L Hemoglobin 9.9 G/DL (12.0-16.0) L Hematocrit 30.9 % (37.0-47.0) L Mean Corpuscular Volume 92 FL (80-99) Mean Corpuscular Hemoglobin 29.7 PG (27.0-31.0) Mean Corpuscular Hemoglobin Concent 32.1 G/DL (32.0-36.0) Red Cell Distribution Width 12.6 % (11.6-14.8) Platelet Count 315 K/UL (150-450) Mean Platelet Volume 7.9 FL (6.5-10.1) Neutrophils (%) (Auto) 76.4 % (45.0-75.0) H Lymphocytes (%) (Auto) 16.0 % (20.0-45.0) L Monocytes (%) (Auto) 3.8 % (1.0-10.0) Eosinophils (%) (Auto) 3.1 % (0.0-3.0) H Basophils (%) (Auto) 0.7 % (0.0-2.0) Sodium Level 145 MMOL/L (136-145) Potassium Level 4.4 MMOL/L (3.5-5.1) Chloride Level 110 MMOL/L (98-107) H Carbon Dioxide Level 26 MMOL/L (21-32) Anion Gap 9 mmol/L (5-15) Blood Urea Nitrogen 23 mg/dL (7-18) H Creatinine 1.2 MG/DL (0.55-1.30) Estimat Glomerular Filtration Rate mL/min (>60) Glucose Level 133 MG/DL (74-106) H Calcium Level 9.5 MG/DL (8.5-10.1) Total Bilirubin 0.3 MG/DL (0.2-1.0) Aspartate Amino Transf (AST/SGOT) 27 U/L (15-37) Alanine Aminotransferase (ALT/SGPT) 35 U/L (12-78) Alkaline Phosphatase 129 U/L (46-116) H Pro-B-Type Natriuretic Peptide 610 pg/mL (0-125) H Total Protein 9.0 G/DL (6.4-8.2) H Albumin 2.9 G/DL (3.4-5.0) L Globulin 6.1 g/dL Albumin/Globulin Ratio 0.5 (1.0-2.7) L Plan Problems: (1) Sepsis Assessment & Plan: 84-year-old very unfortunate female with multiple medical comorbidities who has leukocytosis, lactic acidosis, likely UTI. Presents with multiple wounds and unstageable decubitus ulcers. Wound evaluated at bedside and unlikely the etiology of patient's sepsis. Leukocytosis lactic sepsis likely due to UTI. Patient currently on IV antibiotics as per infectious disease. Lactic acidosis improving. Exam as above. Care management as presented below. We will continue to follow recommendations. Thank you for allowing me to participate in patient's care. wbc improved. febrile. cultures pending final Worsening leukocytosis and abnormal ESR and CRP elevated. Abnormal labs. Continues to be fairly ill without significant recovery or improvement at this time. Prognosis very guarded. We will continue with above care plan. (2) Tracheostomy care Assessment & Plan: Trach site stable. Respiratory as per pulm (3) Feeding by G-tube Assessment & Plan: DAILY ESTIMATED NEEDS: Needs based on Wound, pulmonary 59.8kg 30-35 kcals/kg 0613-4565 total kcals 1.25-1.5 g protein/kg 75-90 g total protein 25-30ml/kcal mL/kg 7069-1003 total fluid mLs NUTRITION DIAGNOSIS: * Swallowing difficulty R/T respiratory status, dysphagia as evidenced by pt is vent dep via T-collar + PEG dep, NPO at this time * Increased kcal/prot needs R/T wound healing as evidenced by pt admitted w/ full thickness pressure sacral injury, with multiple other wounds, eval pending. (CURRENT TF: NPO) ENTERAL NUTRITION RECOMMENDATIONS: Jevity 1.2 @ 70ml/hr x 22 hrs + Prosource 1pkt QD to provide 1540ml, 1848 kcal, 85g pro, 1243 - As medically able, rec Jevity 1.2, start @30ml/hr for 6 hrs. Advance as tolerated 10ml/hr q4-6 hrs to goal - HOLD TF 1 hr before and after synthroid meds - HOB >30 degrees/ water flushes per MD - TF @ goal provides 100% of RDI. ADDITIONAL RECOMMENDATIONS: 1) Calibrated bedscale wts (EMR wt: 160 lbs vs Bed wt: 131.6lbs) 2) Rec water flushes, 120ml q6 hrs 3) Monitor BGs closely, need for hypoglycemic agents or TF change 4) Wound healing: Vit C 250mg BID Add Tommie 1pkt in 4oz H2O BID 5) F/up w/ H&P and WC eval . (4) Decubitus skin ulcer Assessment & Plan: Pt presented on admission with multiple pressure injuries. Skin assessed under trach collar and no evidence of skin breakdown noted. Unstageable pressure injury noted to sacrum(L)1.5cm x (W)2cm. Base of wound has 75% slough,25%pink granulation. Borders are macerated with surrounding non- blanching erythema. R heel Maroon,fluctuant in center with surrounding dry black borders(L)5.5cm x (W)9cm. Reabsorbed DTPI noted to L heel. Base of wound is Black and dry. Surrounding dry peeling skin without erythema.(L)5.5cm x (W)8.5cm. Inferior but in close proximity to Medial L malleolus necrotic area over bony prominence noted. Base of wound is dry without fluctuance. Periwound without discoloration.(L)1.5cm x (W)1cm. Non-Blanching erythema noted to L 1st metatarsal head and lateral aspect. No elevation in skin temp noted. Tx.Plan: Cleanse Sacral wound with Saline. Apply TheraHoney . Apply Moisture Barrier paste periwound. Cover with Optifoam drsg. Change every 3 days and prn. Apply Betadine to R heel. Cover with Optifoam drsg. Change every 3 days and prn. Apply Betadine to L Heel and Medial L foot. Cover with Optifoam drsg. Change every 3 days and prn. Apply Cavilon Skin Barrier to L 1st metatarsal head and lateral aspect Daily and prn. APM/MARCOS Mattress overlay. Reposition at least every 2hours or as tolerated. Off-load heels with pillow. Place pillow between knees. Livan Dean Aug 12, 2019 16:05
--- NOTE | 2019-08-12 16:37 | Diagnostic Imaging Report ---
Indication: Reason For Exam: DYSPNEA Technique: One view of the chest Comparison: none Findings: Again demonstrated is a tracheostomy. Again demonstrated is bilateral interstitial congestion. The left hemidiaphragm is obscured. Impression: Obscured left hemidiaphragm, could indicate atelectasis or consolidation Generalized interstitial edema, unchanged since prior exam of 5 days earlier
[2019-08-12] MEDS: SULFAMETHOXAZOLE IV SCH (16:54)
[2019-08-12] MEDS: D5W IV SCH (16:54)
[2019-08-12] MEDS: TRIMETHOPRIM IV SCH (16:54)
--- NOTE | 2019-08-12 19:05 | NUR ---
HAND-OFF: Report given to CRISTOBAL BOND. pt is stable.
--- NOTE | 2019-08-12 19:29 | NUR ---
NURSE NOTES: Received patient in bed, non verbal, total care, IV site is clean dry and intact, on g tube feeding, tolerating well no residual, trach is in place, clean dry and intact, suction prn. Call light is within reach, bed is lowered, locked, alarm is on, will continue to monitor for comfort and safety.
[2019-08-12 20:00] VITALS: BP 124/60
--- NOTE | 2019-08-12 23:59 | Cardiology Progress Note ---
Assessment/Plan Assessment/Plan The patient is seen and examined, full consult note is dictated. Subjective Subjective No cardiac events noted. Objective Last 24 Hour Vital Signs Date Time Temp Pulse Resp B/P (MAP) Pulse Ox O2 Delivery O2 Flow Rate FiO2 08/12/19 22:19 97 127/74 08/12/19 21:26 Trach Collar 5.0 08/12/19 20:41 5.0 28 08/12/19 20:18 98 T-Piece 5.0 28 08/12/19 20:00 98.4 107 24 124/60 (81) 98 08/12/19 16:00 5.0 28 08/12/19 16:00 98.9 104 22 128/66 (86) 99 08/12/19 13:00 95 T-Piece 5.0 28 08/12/19 12:00 5.0 28 08/12/19 12:00 99.0 108 22 141/71 (94) 99 08/12/19 11:42 108 141/71 08/12/19 11:40 108 08/12/19 09:00 Trach Collar 5.0 08/12/19 08:07 97 T-Piece 5.0 28 08/12/19 08:00 5.0 28 08/12/19 08:00 99.7 122 24 158/68 (98) 98 08/12/19 04:28 5.0 28 08/12/19 04:00 99.0 103 20 125/60 (81) 95 08/12/19 01:02 99 T-Piece 5.0 28 08/12/19 00:00 99.0 109 25 126/61 (82) Intake and Output 08/11/19 08/12/19 19:00 07:00 Intake Total 1160 ml 980 ml Balance 1160 ml 980 ml Free Water 200 ml 100 ml Tube Feeding 960 ml 880 ml Laboratory Tests Test 08/12/19 09:15 White Blood Count 13.1 K/UL (4.8-10.8) #H Red Blood Count 3.34 M/UL (4.20-5.40) L Hemoglobin 9.9 G/DL (12.0-16.0) L Hematocrit 30.9 % (37.0-47.0) L Mean Corpuscular Volume 92 FL (80-99) Mean Corpuscular Hemoglobin 29.7 PG (27.0-31.0) Mean Corpuscular Hemoglobin Concent 32.1 G/DL (32.0-36.0) Red Cell Distribution Width 12.6 % (11.6-14.8) Platelet Count 315 K/UL (150-450) Mean Platelet Volume 7.9 FL (6.5-10.1) Neutrophils (%) (Auto) 76.4 % (45.0-75.0) H Lymphocytes (%) (Auto) 16.0 % (20.0-45.0) L Monocytes (%) (Auto) 3.8 % (1.0-10.0) Eosinophils (%) (Auto) 3.1 % (0.0-3.0) H Basophils (%) (Auto) 0.7 % (0.0-2.0) Sodium Level 145 MMOL/L (136-145) Potassium Level 4.4 MMOL/L (3.5-5.1) Chloride Level 110 MMOL/L (98-107) H Carbon Dioxide Level 26 MMOL/L (21-32) Anion Gap 9 mmol/L (5-15) Blood Urea Nitrogen 23 mg/dL (7-18) H Creatinine 1.2 MG/DL (0.55-1.30) Estimat Glomerular Filtration Rate mL/min (>60) Glucose Level 133 MG/DL (74-106) H Calcium Level 9.5 MG/DL (8.5-10.1) Total Bilirubin 0.3 MG/DL (0.2-1.0) Aspartate Amino Transf (AST/SGOT) 27 U/L (15-37) Alanine Aminotransferase (ALT/SGPT) 35 U/L (12-78) Alkaline Phosphatase 129 U/L (46-116) H Pro-B-Type Natriuretic Peptide 610 pg/mL (0-125) H Total Protein 9.0 G/DL (6.4-8.2) H Albumin 2.9 G/DL (3.4-5.0) L Globulin 6.1 g/dL Albumin/Globulin Ratio 0.5 (1.0-2.7) L Leobardo Conklin MD Aug 12, 2019 23:59
[2019-08-13] VITALS: BP 125/66
[2019-08-13] MEDS: D5W IV SCH ×3 (00:01→16:13)
[2019-08-13] MEDS: SULFAMETHOXAZOLE IV SCH ×3 (00:01→16:13)
[2019-08-13] MEDS: TRIMETHOPRIM IV SCH ×3 (00:01→16:13)
[2019-08-13 03:41] LABS: ALANINE AMINOTRANSFERASE 29 U/L (12-78); ALBUMIN 2.6 G/DL (3.4-5.0); ALBUMIN/GLOBULIN RATIO 0.4 (1.0-2.7); ALKALINE PHOSPHATASE 121 U/L (46-116); ANION GAP 9 mmol/L (5-15); ASPARTATE AMINO TRANSFERASE 25 U/L (15-37); BILIRUBIN,TOTAL 0.2 MG/DL (0.2-1.0); BLOOD UREA NITROGEN 26 mg/dL (7-18); CARBON DIOXIDE 23 MMOL/L (21-32); CHLORIDE 107 MMOL/L (98-107); CREATININE 1.2 MG/DL (0.55-1.30); POTASSIUM 4.4 MMOL/L (3.5-5.1); SODIUM 139 MMOL/L (136-145)
[2019-08-13 04:00] VITALS: BP 116/52
[2019-08-13] MEDS: dilTIAZem HCl 30mg tab GT SCH ×3 (05:27→22:00)
[2019-08-13] MEDS: Levothyroxine 125mcg tab GT SCH (05:27)
[2019-08-13 05:40] LABS: BASOPHILS % (AUTO) 0.5 % (0.0-2.0); EOSINOPHILS % (AUTO) 3.1 % (0.0-3.0); HEMOGLOBIN 8.6 G/DL (12.0-16.0); LYMPHOCYTES % (AUTO) 20.8 % (20.0-45.0); MEAN CORPUSCULAR VOLUME 91 FL (80-99); MONOCYTES % (AUTO) 5.3 % (1.0-10.0); NEUTROPHILS % (AUTO) 70.2 % (45.0-75.0); PLATELET COUNT 252 K/UL (150-450); RED BLOOD COUNT 2.85 M/UL (4.20-5.40); RED CELL DISTRIBUTION WIDTH 12.6 % (11.6-14.8); WHITE BLOOD COUNT 13.1 K/UL (4.8-10.8)
--- NOTE | 2019-08-13 06:27 | Hematology/Onc Progress Note ---
Assessment/Plan Assessment/Plan Assessment and Recs: # Anemia of chronic disease due to underlying chronic medical issues, multifactorial --> Anemia workup has been reviewed, ferritin is 610--?853 --> No evidence of hemolysis is noted, peripheral smear has been reviewed. --> Hgb goal >7. Transfuse prn. --> Epogen or iron at this time is not particularly indicated --> Medications have been reviewed --> evaluate with Gi team prn --> currently dnr, HOLDING OFF colo and egd --> transfuse if hgb is < 7 (will trend CBC daily) --> stool ob is negative --> hgb trend 8.3-->8.2 -->9.9-->8.6 stool ob negative # Leukocytosis on admission due to sepsis --> due to uti per id --> on vanc/cefe-->meropenem-->bactrim/amik --> wbc trend: 6.9->13 # Acute on chronic Renal failure --> per renal Fouladian --> cr has improved --> 1.6-->1.3 # Acute on chronic respiratory failure s/p trach ++ with revision --> Pneumothorax s/p chest tube HISTory --> per Gigi # UTI # HypoAlbuminemia # HTN # + PEG with Fecal impaction # Dvt ppx scds/heparin The timing of this note does not necessarily reflect the time of the patient was seen. Greatly appreciate consultation! Subjective Constitutional: Denies: no symptoms, chills, fever, malaise, weakness, other HEENT: Denies: no symptoms, eye pain, blurred vision, tearing, double vision, ear pain, ear discharge, nose pain, nose congestion, throat pain, throat swelling, mouth pain, mouth swelling, other Cardiovascular: Denies: no symptoms, chest pain, edema, irregular heart rate, lightheadedness, palpitations, syncope, other Respiratory: Denies: no symptoms, cough, shortness of breath, SOB with excertion, SOB at rest, sputum, wheezing, other Neurologic/Psychiatric: Denies: no symptoms, anxiety, depressed, emotional problems, headache, numbness, paresthesia, pre-existing deficit, seizure, tingling, tremors, weakness, other Endocrine: Denies: no symptoms, excessive sweating, flushing, intolerance to cold, intolerance to heat, increased hunger, increased thirst, increased urine, unexplained weight gain, unexplained weight loss, other Allergies: Coded Allergies: ASPIRIN (Verified Allergy, Unknown, 07/07/17) Subjective 08/11: no acute events, trach, h/h stable, on abx 08/12: no major changes, remains on trach, no f/c noted wbc 13 08/13: nonverbal, recs reviewed, robert rn, no events Objective Objective Current Medications Medications (Trade) Dose Ordered Sig/Torsten Route PRN Reason Start Time Stop Time Status Last Admin Dose Admin Acetaminophen (Tylenol) 650 mg Q4H PRN GT fever (temp>100.5F) 08/06/19 20:00 09/05/19 19:59 08/09/19 22:01 Acetaminophen (Tylenol) 650 mg Q4H PRN GT headache, mild pain 08/06/19 20:00 09/05/19 19:59 Amikacin Protocol (Amikacin pharmacy to dose) 1 ea DAILY PRN MISC Per rx protocol 08/12/19 11:30 09/11/19 11:29 Amikacin Sulfate 850 mg/Sodium Chloride 113.4 ml @ 113.4 mls/ hr Q48H IV 08/12/19 14:00 08/19/19 13:59 08/12/19 14:22 Digoxin (Lanoxin) 0.125 mg DAILY GT 08/13/19 09:00 09/12/19 08:59 Diltiazem HCl (Cardizem) 30 mg EVERY 8 HOURS GT 08/12/19 12:00 09/11/19 11:59 08/13/19 05:27 Docusate Sodium (Colace) 100 mg BID GT 08/09/19 18:00 09/08/19 17:59 08/12/19 17:04 Heparin Sodium (Porcine) (Heparin 5000 units/ml) 5,000 units EVERY 12 HOURS SUBQ 08/06/19 21:00 09/05/19 08:59 08/12/19 20:33 Levothyroxine Sodium (Synthroid) 125 mcg Q24H GT 08/07/19 06:30 09/06/19 06:29 08/13/19 05:27 Pantoprazole (Protonix) 40 mg EVERY 12 HOURS IVP 08/06/19 21:00 09/05/19 10:59 08/12/19 20:32 Temazepam (Restoril) 15 mg HSPRN PRN GT Insomnia 08/06/19 21:00 08/13/19 20:59 Trimethoprim/ Sulfamethoxazole 16.5 ml/Dextrose 566.5 ml @ 134.881 mls/hr [id number] BACTRIM IV 08/12/19 16:00 08/19/19 15:59 08/13/19 00:01 Last 24 Hour Vital Signs Date Time Temp Pulse Resp B/P (MAP) Pulse Ox O2 Delivery O2 Flow Rate FiO2 08/13/19 05:27 100 116/70 08/13/19 04:56 5.0 28 08/13/19 04:00 98.2 105 28 116/52 (73) 95 08/13/19 01:25 99 T-Piece 5.0 28 08/13/19 00:00 98.6 101 26 125/66 (85) 99 08/12/19 22:19 97 127/74 08/12/19 21:26 Trach Collar 5.0 08/12/19 20:41 5.0 28 08/12/19 20:18 98 T-Piece 5.0 28 08/12/19 20:00 98.4 107 24 124/60 (81) 98 08/12/19 16:00 5.0 28 08/12/19 16:00 98.9 104 22 128/66 (86) 99 08/12/19 13:00 95 T-Piece 5.0 28 08/12/19 12:00 5.0 28 08/12/19 12:00 99.0 108 22 141/71 (94) 99 08/12/19 11:42 108 141/71 08/12/19 11:40 108 08/12/19 09:00 Trach Collar 5.0 08/12/19 08:07 97 T-Piece 5.0 28 08/12/19 08:00 5.0 28 08/12/19 08:00 99.7 122 24 158/68 (98) 98 08/12/19 04:28 5.0 28 08/12/19 04:00 99.0 103 20 125/60 (81) 95 08/12/19 01:02 99 T-Piece 5.0 28 08/12/19 00:00 99.0 109 25 126/61 (82) 08/11/19 21:01 Trach Collar 5.0 08/11/19 20:08 99.4 100 26 136/69 (91) 95 08/11/19 20:08 5.0 28 08/11/19 19:00 97 T-Piece 5.0 28 08/11/19 16:00 5.0 28 08/11/19 16:00 98.7 72 18 121/69 (86) 96 08/11/19 13:05 97 T-Piece 5.0 28 08/11/19 12:00 97.9 83 18 119/61 (80) 97 08/11/19 12:00 5.0 28 08/11/19 09:00 Trach Collar 5.0 08/11/19 08:00 5.0 28 08/11/19 08:00 98.9 88 19 119/54 (75) 97 08/11/19 07:31 95 T-Piece 5.0 28 Intake and Output 08/12/19 08/13/19 18:59 06:59 Intake Total 1543.162 ml 900 ml Balance 1543.162 ml 900 ml Free Water 200 ml 100 ml IV Total 383.162 ml Tube Feeding 960 ml 800 ml # Voids 4 Labs Test 08/10/19 07:50 08/11/19 06:00 08/12/19 09:15 08/13/19 03:00 White Blood Count 7.7 K/UL (4.8-10.8) 6.9 K/UL (4.8-10.8) 13.1 K/UL (4.8-10.8) Red Blood Count 3.18 M/UL (4.20-5.40) 2.79 M/UL (4.20-5.40) 3.34 M/UL (4.20-5.40) Hemoglobin 9.2 G/DL (12.0-16.0) 8.2 G/DL (12.0-16.0) 9.9 G/DL (12.0-16.0) Hematocrit 29.1 % (37.0-47.0) 25.6 % (37.0-47.0) 30.9 % (37.0-47.0) Mean Corpuscular Volume 92 FL (80-99) 92 FL (80-99) 92 FL (80-99) Mean Corpuscular Hemoglobin 29.0 PG (27.0-31.0) 29.5 PG (27.0-31.0) 29.7 PG (27.0-31.0) Mean Corpuscular Hemoglobin Concent 31.6 G/DL (32.0-36.0) 32.2 G/DL (32.0-36.0) 32.1 G/DL (32.0-36.0) Red Cell Distribution Width 12.8 % (11.6-14.8) 12.7 % (11.6-14.8) 12.6 % (11.6-14.8) Platelet Count 227 K/UL (150-450) 218 K/UL (150-450) 315 K/UL (150-450) Mean Platelet Volume 7.9 FL (6.5-10.1) 7.6 FL (6.5-10.1) 7.9 FL (6.5-10.1) Neutrophils (%) (Auto) 64.7 % (45.0-75.0) 54.7 % (45.0-75.0) 76.4 % (45.0-75.0) Lymphocytes (%) (Auto) 22.6 % (20.0-45.0) 32.0 % (20.0-45.0) 16.0 % (20.0-45.0) Monocytes (%) (Auto) 7.9 % (1.0-10.0) 7.6 % (1.0-10.0) 3.8 % (1.0-10.0) Eosinophils (%) (Auto) 4.4 % (0.0-3.0) 5.3 % (0.0-3.0) 3.1 % (0.0-3.0) Basophils (%) (Auto) 0.5 % (0.0-2.0) 0.4 % (0.0-2.0) 0.7 % (0.0-2.0) Sodium Level 144 MMOL/L (136-145) 145 MMOL/L (136-145) 145 MMOL/L (136-145) 139 MMOL/L (136-145) Potassium Level 4.1 MMOL/L (3.5-5.1) 4.3 MMOL/L (3.5-5.1) 4.4 MMOL/L (3.5-5.1) 4.4 MMOL/L (3.5-5.1) Chloride Level 109 MMOL/L (98-107) 111 MMOL/L (98-107) 110 MMOL/L (98-107) 107 MMOL/L (98-107) Carbon Dioxide Level 22 MMOL/L (21-32) 24 MMOL/L (21-32) 26 MMOL/L (21-32) 23 MMOL/L (21-32) Anion Gap 13 mmol/L (5-15) 10 mmol/L (5-15) 9 mmol/L (5-15) 9 mmol/L (5-15) Blood Urea Nitrogen 19 mg/dL (7-18) 21 mg/dL (7-18) 23 mg/dL (7-18) 26 mg/dL (7-18) Creatinine 1.6 MG/DL (0.55-1.30) 1.3 MG/DL (0.55-1.30) 1.2 MG/DL (0.55-1.30) 1.2 MG/DL (0.55-1.30) Estimat Glomerular Filtration Rate mL/min (>60) mL/min (>60) mL/min (>60) mL/min (>60) Glucose Level 100 MG/DL (74-106) 113 MG/DL (74-106) 133 MG/DL (74-106) 134 MG/DL (74-106) Calcium Level 9.1 MG/DL (8.5-10.1) 9.0 MG/DL (8.5-10.1) 9.5 MG/DL (8.5-10.1) 9.0 MG/DL (8.5-10.1) Random Vancomycin Level 12.2 ug/mL Erythrocyte Sedimentation Rate 131 MM/HR (0-30) Phosphorus Level 3.3 MG/DL (2.5-4.9) Magnesium Level 2.1 MG/DL (1.8-2.4) Total Bilirubin 0.3 MG/DL (0.2-1.0) 0.3 MG/DL (0.2-1.0) 0.2 MG/DL (0.2-1.0) Aspartate Amino Transf (AST/SGOT) 23 U/L (15-37) 27 U/L (15-37) 25 U/L (15-37) Alanine Aminotransferase (ALT/SGPT) 36 U/L (12-78) 35 U/L (12-78) 29 U/L (12-78) Alkaline Phosphatase 98 U/L (46-116) 129 U/L (46-116) 121 U/L (46-116) C-Reactive Protein, Quantitative 6.5 mg/dL (0.00-0.90) Total Protein 8.0 G/DL (6.4-8.2) 9.0 G/DL (6.4-8.2) 8.4 G/DL (6.4-8.2) Albumin 2.8 G/DL (3.4-5.0) 2.9 G/DL (3.4-5.0) 2.6 G/DL (3.4-5.0) Globulin 5.2 g/dL 6.1 g/dL 5.8 g/dL Albumin/Globulin Ratio 0.5 (1.0-2.7) 0.5 (1.0-2.7) 0.4 (1.0-2.7) Pro-B-Type Natriuretic Peptide 610 pg/mL (0-125) 809 pg/mL (0-125) Random Amikacin Level 14.7 ug/mL Test 08/13/19 04:45 White Blood Count 13.1 K/UL (4.8-10.8) Red Blood Count 2.85 M/UL (4.20-5.40) Hemoglobin 8.6 G/DL (12.0-16.0) Hematocrit 26.0 % (37.0-47.0) Mean Corpuscular Volume 91 FL (80-99) Mean Corpuscular Hemoglobin 30.3 PG (27.0-31.0) Mean Corpuscular Hemoglobin Concent 33.2 G/DL (32.0-36.0) Red Cell Distribution Width 12.6 % (11.6-14.8) Platelet Count 252 K/UL (150-450) Mean Platelet Volume 8.5 FL (6.5-10.1) Neutrophils (%) (Auto) 70.2 % (45.0-75.0) Lymphocytes (%) (Auto) 20.8 % (20.0-45.0) Monocytes (%) (Auto) 5.3 % (1.0-10.0) Eosinophils (%) (Auto) 3.1 % (0.0-3.0) Basophils (%) (Auto) 0.5 % (0.0-2.0) Height (Feet): 5 Height (Inches): 8.00 Weight (Pounds): 126 Objective PE Vital Signs reviewed General: lethargic, obese, Stupor Head: at Neck: supple Respiratory: ++trach Cardiovascular: tachycardia Gastrointestinal: G-tube in place Msk: Contractures lower extremities Micha Torres MD Aug 13, 2019 06:27
--- NOTE | 2019-08-13 06:45 | General Progress Note ---
Assessment/Plan Problem List: (1) Acute on chronic renal failure ICD Codes: N17.9 - Acute kidney failure, unspecified; N18.9 - Chronic kidney disease, unspecified SNOMED: 782751541 (2) Chronic vegetative state ICD Codes: R40.3 - Persistent vegetative state SNOMED: 80095521 (3) Chronic respiratory failure ICD Codes: J96.10 - Chronic respiratory failure, unspecified whether with hypoxia or hypercapnia SNOMED: 59834139 Qualifiers: Qualified Codes: J96.10 - Chronic respiratory failure, unspecified whether with hypoxia or hypercapnia (4) Feeding by G-tube ICD Codes: Z93.1 - Gastrostomy status SNOMED: 224185498, 393502923 (5) HTN (hypertension) ICD Codes: I10 - Essential (primary) hypertension SNOMED: 41734767 (6) Anemia ICD Codes: D64.9 - Anemia, unspecified SNOMED: 150953108 Status: unchanged Assessment/Plan: EGD and colonoscopy on hold for now d/w with public guardian patient is DNR with limited interventions must be reviewed prior decision stool ob neg.>>>>neg monitor H&H, prn transfusions PPI daily GTF colace and miralax Subjective ROS Limited/Unobtainable: No Allergies: Coded Allergies: ASPIRIN (Verified Allergy, Unknown, 07/07/17) Objective Last 24 Hour Vital Signs Date Time Temp Pulse Resp B/P (MAP) Pulse Ox O2 Delivery O2 Flow Rate FiO2 08/13/19 05:27 100 116/70 08/13/19 04:56 5.0 28 08/13/19 04:00 98.2 105 28 116/52 (73) 95 08/13/19 01:25 99 T-Piece 5.0 28 08/13/19 00:00 98.6 101 26 125/66 (85) 99 08/12/19 22:19 97 127/74 08/12/19 21:26 Trach Collar 5.0 08/12/19 20:41 5.0 28 08/12/19 20:18 98 T-Piece 5.0 28 08/12/19 20:00 98.4 107 24 124/60 (81) 98 08/12/19 16:00 5.0 28 08/12/19 16:00 98.9 104 22 128/66 (86) 99 08/12/19 13:00 95 T-Piece 5.0 28 08/12/19 12:00 5.0 28 08/12/19 12:00 99.0 108 22 141/71 (94) 99 08/12/19 11:42 108 141/71 08/12/19 11:40 108 08/12/19 09:00 Trach Collar 5.0 08/12/19 08:07 97 T-Piece 5.0 28 08/12/19 08:00 5.0 28 08/12/19 08:00 99.7 122 24 158/68 (98) 98 Intake and Output 08/12/19 08/13/19 18:59 06:59 Intake Total 1543.162 ml 900 ml Balance 1543.162 ml 900 ml Free Water 200 ml 100 ml IV Total 383.162 ml Tube Feeding 960 ml 800 ml # Voids 4 Laboratory Tests 08/12/19 09:15: White Blood Count 13.1#H, Red Blood Count 3.34L, Hemoglobin 9.9L, Hematocrit 30.9L, Mean Corpuscular Volume 92, Mean Corpuscular Hemoglobin 29.7, Mean Corpuscular Hemoglobin Concent 32.1, Red Cell Distribution Width 12.6, Platelet Count 315, Mean Platelet Volume 7.9, Neutrophils (%) (Auto) 76.4H, Lymphocytes ( %) (Auto) 16.0L, Monocytes (%) (Auto) 3.8, Eosinophils (%) (Auto) 3.1H, Basophils (%) (Auto) 0.7, Sodium Level 145, Potassium Level 4.4, Chloride Level 110H, Carbon Dioxide Level 26, Anion Gap 9, Blood Urea Nitrogen 23H, Creatinine 1.2, Estimat Glomerular Filtration Rate , Glucose Level 133H, Calcium Level 9.5 , Total Bilirubin 0.3, Aspartate Amino Transf (AST/SGOT) 27, Alanine Aminotransferase (ALT/SGPT) 35, Alkaline Phosphatase 129H, Pro-B-Type Natriuretic Peptide 610H, Total Protein 9.0H, Albumin 2.9L, Globulin 6.1, Albumin/Globulin Ratio 0.5L 08/13/19 03:00: White Blood Count [Pending], Red Blood Count [Pending], Hemoglobin [Pending], Hematocrit [Pending], Mean Corpuscular Volume [Pending], Mean Corpuscular Hemoglobin [Pending], Mean Corpuscular Hemoglobin Concent [Pending], Red Cell Distribution Width [Pending], Platelet Count [Pending], Mean Platelet Volume [ Pending], Neutrophils (%) (Auto) [Pending], Lymphocytes (%) (Auto) [Pending], Monocytes (%) (Auto) [Pending], Eosinophils (%) (Auto) [Pending], Basophils (%) (Auto) [Pending], Sodium Level 139, Potassium Level 4.4, Chloride Level 107, Carbon Dioxide Level 23, Anion Gap 9, Blood Urea Nitrogen 26H, Creatinine 1.2, Estimat Glomerular Filtration Rate , Glucose Level 134H, Calcium Level 9.0, Total Bilirubin 0.2, Aspartate Amino Transf (AST/SGOT) 25, Alanine Aminotransferase (ALT/SGPT) 29, Alkaline Phosphatase 121H, Pro-B-Type Natriuretic Peptide 809H, Total Protein 8.4H, Albumin 2.6L, Globulin 5.8, Albumin/Globulin Ratio 0.4L, Random Amikacin Level 14.7 08/13/19 04:45: White Blood Count 13.1H, Red Blood Count 2.85L, Hemoglobin 8.6L, Hematocrit 26.0L, Mean Corpuscular Volume 91, Mean Corpuscular Hemoglobin 30.3, Mean Corpuscular Hemoglobin Concent 33.2, Red Cell Distribution Width 12.6, Platelet Count 252, Mean Platelet Volume 8.5, Neutrophils (%) (Auto) 70.2, Lymphocytes (% ) (Auto) 20.8, Monocytes (%) (Auto) 5.3, Eosinophils (%) (Auto) 3.1H, Basophils (%) (Auto) 0.5 Height (Feet): 5 Height (Inches): 8.00 Weight (Pounds): 126 General Appearance: alert EENT: normal ENT inspection Neck: normal alignment Cardiovascular: normal rate Respiratory/Chest: decreased breath sounds Abdomen: normal bowel sounds, non tender, soft Extremities: non-tender Jda Skinner MD Aug 13, 2019 06:45
--- NOTE | 2019-08-13 07:05 | NUR ---
HAND-OFF: Report given to Aga BOND and David BOND.
--- NOTE | 2019-08-13 07:06 | NUR ---
NURSE NOTES: Report received from Chika BOND. Patient repositioned in the bed. Patient does not appear to be in respiratory distress. Suctioning done. Trach in tact and in place. Gevity 1.2 feeding currently on hold from earlier administration of synthroid. Will be resumed at 0730 at 80 cc / hr. G tube in tact and in place. 20 wild IV in left wrist in place and patent. Bed in lowest position, locked, and alarmed. Will continue to follow the plan of care.
[2019-08-13 08:00] VITALS: BP 120/72
[2019-08-13 08:11] LABS: BASOPHILS % (AUTO) 0.2 % (0.0-2.0); EOSINOPHILS % (AUTO) 2.2 % (0.0-3.0); HEMATOCRIT 27.5 % (37.0-47.0); HEMOGLOBIN 8.9 G/DL (12.0-16.0); LYMPHOCYTES % (AUTO) 17.8 % (20.0-45.0); MEAN CORPUSCULAR VOLUME 91 FL (80-99); MONOCYTES % (AUTO) 6.3 % (1.0-10.0); NEUTROPHILS % (AUTO) 73.5 % (45.0-75.0); PLATELET COUNT 291 K/UL (150-450); RED BLOOD COUNT 3.03 M/UL (4.20-5.40); RED CELL DISTRIBUTION WIDTH 12.5 % (11.6-14.8); WHITE BLOOD COUNT 13.3 K/UL (4.8-10.8)
[2019-08-13] MEDS ORDERED: Digoxin 0.125mg tab GT SCH (09:00)
[2019-08-13] MEDS: Docusate 100mg/10ml Liq GT SCH ×2 (09:20→18:18)
[2019-08-13] MEDS: Pantoprazole Inj IVP SCH ×2 (09:20→20:05)
[2019-08-13] MEDS: Heparin 5000 units/ml inj SUBQ SCH ×2 (09:24→20:12)
--- NOTE | 2019-08-13 10:24 | Infectious Diseases Prog Note ---
Assessment/Plan Assessment/Plan Assessment: Sepsis Probable UTI -u/a wbc tnct; ucx >100k P. mirabilis, probable AMP-c -BCx Neg Probable PNA -08/07 CXR: probably unchanged bilateral diffuse interstitial and airspace disease, right greater than left. Atelectatic changes at the left lung base are again noted. -CXR: Bilateral interstitial disease, may be on the basis of pulmonary edema or may reflect inflammatory changes. This is similar to the previous study of 01/02/2019, 70 may also be a chronic component -influenza sc neg -sp cx GNR Leukocytosis; SP Low grade fever; improving Hypernatremia, SP JAMES, improving hx of PNA -12/2018 sp cx PsA -10/2017 MDR PSA, H. flu hx of septic shock with MDRO hx of MDR ABC VAP 2017 hx of b/l pneumothorax 12/2018 HTN seizure disorder Dementia CVA/TIA quadriplegia chronic resp failure s/p trac/vent dependant dysphagia s/p PEG COPD SNF resident Plan: - Continue Bactrim #2 and Amikacin #2 - f/u P.a. Sensitivities for Avycaz, Zerbaxa, Aztreonam -08/11/19 S/P Meropenem #5 -08/11/19 S/P IV Vancomycin #6 -08/08 SP Cefepime #3 -08/06 SP Zosyn x1 -f/u cx -Monitor CBC/CMP, temperatures -peg/trach care -aspiration precautions Thank you for this consultation. Will continue to follow along with you. 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 Objective Vital Signs Last 24 Hour Vital Signs Date Time Temp Pulse Resp B/P (MAP) Pulse Ox O2 Delivery O2 Flow Rate FiO2 08/13/19 09:21 93 08/13/19 09:00 Trach Collar 5.0 08/13/19 08:02 98 T-Piece 5.0 28 08/13/19 08:00 98.4 93 20 120/72 (88) 98 08/13/19 08:00 5.0 28 08/13/19 05:27 100 116/70 08/13/19 04:56 5.0 28 08/13/19 04:00 98.2 105 28 116/52 (73) 95 08/13/19 01:25 99 T-Piece 5.0 28 08/13/19 00:00 98.6 101 26 125/66 (85) 99 08/12/19 22:19 97 127/74 08/12/19 21:26 Trach Collar 5.0 08/12/19 20:41 5.0 28 08/12/19 20:18 98 T-Piece 5.0 28 08/12/19 20:00 98.4 107 24 124/60 (81) 98 08/12/19 16:00 5.0 28 08/12/19 16:00 98.9 104 22 128/66 (86) 99 08/12/19 13:00 95 T-Piece 5.0 28 08/12/19 12:00 5.0 28 08/12/19 12:00 99.0 108 22 141/71 (94) 99 08/12/19 11:42 108 141/71 08/12/19 11:40 108 Height (Feet): 5 Height (Inches): 8.00 Weight (Pounds): 126 Objective General Appearance: cachetic, thin female, On Tbar HEENT: normocephalic, atraumatic, PERRL Respiratory/Chest: Coarse B/L Cardiovascular/Chest: RRR, S1, S2 Abdomen: normal bowel sounds, non tender Laboratory Tests Test 08/13/19 03:00 08/13/19 04:45 White Blood Count 13.3 K/UL (4.8-10.8) H 13.1 K/UL (4.8-10.8) H Red Blood Count 3.03 M/UL (4.20-5.40) L 2.85 M/UL (4.20-5.40) L Hemoglobin 8.9 G/DL (12.0-16.0) L 8.6 G/DL (12.0-16.0) L Hematocrit 27.5 % (37.0-47.0) L 26.0 % (37.0-47.0) L Mean Corpuscular Volume 91 FL (80-99) 91 FL (80-99) Mean Corpuscular Hemoglobin 29.5 PG (27.0-31.0) 30.3 PG (27.0-31.0) Mean Corpuscular Hemoglobin Concent 32.4 G/DL (32.0-36.0) 33.2 G/DL (32.0-36.0) Red Cell Distribution Width 12.5 % (11.6-14.8) 12.6 % (11.6-14.8) Platelet Count 291 K/UL (150-450) 252 K/UL (150-450) Mean Platelet Volume 6.0 FL (6.5-10.1) L 8.5 FL (6.5-10.1) Neutrophils (%) (Auto) 73.5 % (45.0-75.0) 70.2 % (45.0-75.0) Lymphocytes (%) (Auto) 17.8 % (20.0-45.0) L 20.8 % (20.0-45.0) Monocytes (%) (Auto) 6.3 % (1.0-10.0) 5.3 % (1.0-10.0) Eosinophils (%) (Auto) 2.2 % (0.0-3.0) 3.1 % (0.0-3.0) H Basophils (%) (Auto) 0.2 % (0.0-2.0) 0.5 % (0.0-2.0) Sodium Level 139 MMOL/L (136-145) Potassium Level 4.4 MMOL/L (3.5-5.1) Chloride Level 107 MMOL/L (98-107) Carbon Dioxide Level 23 MMOL/L (21-32) Anion Gap 9 mmol/L (5-15) Blood Urea Nitrogen 26 mg/dL (7-18) H Creatinine 1.2 MG/DL (0.55-1.30) Estimat Glomerular Filtration Rate mL/min (>60) Glucose Level 134 MG/DL (74-106) H Calcium Level 9.0 MG/DL (8.5-10.1) Total Bilirubin 0.2 MG/DL (0.2-1.0) Aspartate Amino Transf (AST/SGOT) 25 U/L (15-37) Alanine Aminotransferase (ALT/SGPT) 29 U/L (12-78) Alkaline Phosphatase 121 U/L (46-116) H Pro-B-Type Natriuretic Peptide 809 pg/mL (0-125) H Total Protein 8.4 G/DL (6.4-8.2) H Albumin 2.6 G/DL (3.4-5.0) L Globulin 5.8 g/dL Albumin/Globulin Ratio 0.4 (1.0-2.7) L Random Amikacin Level 14.7 ug/mL Current Medications Medications (Trade) Dose Ordered Sig/Torsten Route PRN Reason Start Time Stop Time Status Last Admin Dose Admin Acetaminophen (Tylenol) 650 mg Q4H PRN GT fever (temp>100.5F) 08/06/19 20:00 09/05/19 19:59 08/09/19 22:01 Acetaminophen (Tylenol) 650 mg Q4H PRN GT headache, mild pain 08/06/19 20:00 09/05/19 19:59 Amikacin Protocol (Amikacin pharmacy to dose) 1 ea DAILY PRN MISC Per rx protocol 08/12/19 11:30 09/11/19 11:29 Amikacin Sulfate 850 mg/Sodium Chloride 113.4 ml @ 113.4 mls/ hr Q48H IV 08/12/19 14:00 08/19/19 13:59 08/12/19 14:22 Digoxin (Lanoxin) 0.125 mg DAILY GT 08/13/19 09:00 09/12/19 08:59 08/13/19 09:21 Diltiazem HCl (Cardizem) 30 mg EVERY 8 HOURS GT 08/12/19 12:00 09/11/19 11:59 08/13/19 05:27 Docusate Sodium (Colace) 100 mg BID GT 08/09/19 18:00 09/08/19 17:59 08/13/19 09:20 Heparin Sodium (Porcine) (Heparin 5000 units/ml) 5,000 units EVERY 12 HOURS SUBQ 08/06/19 21:00 09/05/19 08:59 08/13/19 09:24 Levothyroxine Sodium (Synthroid) 125 mcg Q24H GT 08/07/19 06:30 09/06/19 06:29 08/13/19 05:27 Pantoprazole (Protonix) 40 mg EVERY 12 HOURS IVP 08/06/19 21:00 09/05/19 10:59 08/13/19 09:20 Temazepam (Restoril) 15 mg HSPRN PRN GT Insomnia 08/06/19 21:00 08/13/19 20:59 Trimethoprim/ Sulfamethoxazole 16.5 ml/Dextrose 566.5 ml @ 134.881 mls/hr [id number] BACTRIM IV 08/12/19 16:00 08/19/19 15:59 08/13/19 09:19 Martin Vance MD Aug 13, 2019 10:24
--- NOTE | 2019-08-13 10:51 | NUR ---
RADIOLOGY DEPT., CHEST X-RAY DONE.-P.DYE
--- NOTE | 2019-08-13 11:29 | NUR ---
*-* INSURANCE *-* ALL AVAILABLE CLINICALS HAVE BEEN FAXED: [facility] TRK# [id number] F: [phone] & [facility] TRK# [id number] FX: [phone].......REVIEW/CLINICAL
--- NOTE | 2019-08-13 11:37 | Diagnostic Imaging Report ---
Indication: Shortness of breath Technique: One view of the chest Comparison: 08/12/2019 Findings: There are inspiration currently. Tracheostomy is again demonstrated. Diffuse interstitial prominence appears similar to the prior exam, allowing for differences in degree of inspiration. Impression: Unchanged, over one day, findings as above.
--- NOTE | 2019-08-13 11:48 | Pulmonology Progress Note ---
Assessment/Plan Problems: (1) Nosocomial pneumonia (2) Acute on chronic renal failure (3) Chronic respiratory failure (4) Tracheostomy care (5) Cardiomyopathy (6) Seizure disorder (7) Feeding by G-tube (8) Chronic vegetative state Assessment/Plan WBC is high cultures, Urine has Proteus Mirabilis, sputum has pseudomonas MDR iv abx, Amikacin and Bactrim IV continue gtube feeding tracheostomy care dvt prophylaxis all meds reviewed. some discontinued Subjective ROS Limited/Unobtainable: Yes Constitutional: Reports: no symptoms HEENT: Repors: no symptoms Allergies: Coded Allergies: ASPIRIN (Verified Allergy, Unknown, 07/07/17) Objective Last 24 Hour Vital Signs Date Time Temp Pulse Resp B/P (MAP) Pulse Ox O2 Delivery O2 Flow Rate FiO2 08/13/19 09:21 93 08/13/19 09:00 Trach Collar 5.0 08/13/19 08:02 98 T-Piece 5.0 28 08/13/19 08:00 98.4 93 20 120/72 (88) 98 08/13/19 08:00 5.0 28 08/13/19 05:27 100 116/70 08/13/19 04:56 5.0 28 08/13/19 04:00 98.2 105 28 116/52 (73) 95 08/13/19 01:25 99 T-Piece 5.0 28 08/13/19 00:00 98.6 101 26 125/66 (85) 99 08/12/19 22:19 97 127/74 08/12/19 21:26 Trach Collar 5.0 08/12/19 20:41 5.0 28 08/12/19 20:18 98 T-Piece 5.0 28 08/12/19 20:00 98.4 107 24 124/60 (81) 98 08/12/19 16:00 5.0 28 08/12/19 16:00 98.9 104 22 128/66 (86) 99 08/12/19 13:00 95 T-Piece 5.0 28 08/12/19 12:00 5.0 28 08/12/19 12:00 99.0 108 22 141/71 (94) 99 Intake and Output 08/12/19 08/13/19 19:00 07:00 Intake Total 1543.162 ml 1000 ml Output Total 1000 ml Balance 1543.162 ml 0 ml Intake Oral 100 ml Free Water 200 ml 100 ml IV Total 383.162 ml Tube Feeding 960 ml 800 ml Output Urine Total 1000 ml # Voids 4 2 # Bowel Movements 2 General Appearance: cachetic HEENT: normocephalic, atraumatic Respiratory/Chest: chest wall non-tender, lungs clear Breasts: no masses Cardiovascular: normal rate Abdomen: soft, non tender Genitourinary: normal external genitalia Extremities: no clubbing Laboratory Tests 08/13/19 03:00: White Blood Count 13.3H, Red Blood Count 3.03L, Hemoglobin 8.9L, Hematocrit 27.5L, Mean Corpuscular Volume 91, Mean Corpuscular Hemoglobin 29.5, Mean Corpuscular Hemoglobin Concent 32.4, Red Cell Distribution Width 12.5, Platelet Count 291, Mean Platelet Volume 6.0L, Neutrophils (%) (Auto) 73.5, Lymphocytes ( %) (Auto) 17.8L, Monocytes (%) (Auto) 6.3, Eosinophils (%) (Auto) 2.2, Basophils (%) (Auto) 0.2, Sodium Level 139, Potassium Level 4.4, Chloride Level 107, Carbon Dioxide Level 23, Anion Gap 9, Blood Urea Nitrogen 26H, Creatinine 1.2, Estimat Glomerular Filtration Rate , Glucose Level 134H, Calcium Level 9.0 , Total Bilirubin 0.2, Aspartate Amino Transf (AST/SGOT) 25, Alanine Aminotransferase (ALT/SGPT) 29, Alkaline Phosphatase 121H, Pro-B-Type Natriuretic Peptide 809H, Total Protein 8.4H, Albumin 2.6L, Globulin 5.8, Albumin/Globulin Ratio 0.4L, Random Amikacin Level 14.7 08/13/19 04:45: White Blood Count 13.1H, Red Blood Count 2.85L, Hemoglobin 8.6L, Hematocrit 26.0L, Mean Corpuscular Volume 91, Mean Corpuscular Hemoglobin 30.3, Mean Corpuscular Hemoglobin Concent 33.2, Red Cell Distribution Width 12.6, Platelet Count 252, Mean Platelet Volume 8.5, Neutrophils (%) (Auto) 70.2, Lymphocytes (% ) (Auto) 20.8, Monocytes (%) (Auto) 5.3, Eosinophils (%) (Auto) 3.1H, Basophils (%) (Auto) 0.5 Current Medications Medications (Trade) Dose Ordered Sig/Torsten Route PRN Reason Start Time Stop Time Status Last Admin Dose Admin Acetaminophen (Tylenol) 650 mg Q4H PRN GT fever (temp>100.5F) 08/06/19 20:00 09/05/19 19:59 08/09/19 22:01 Acetaminophen (Tylenol) 650 mg Q4H PRN GT headache, mild pain 08/06/19 20:00 09/05/19 19:59 Amikacin Protocol (Amikacin pharmacy to dose) 1 ea DAILY PRN MISC Per rx protocol 08/12/19 11:30 09/11/19 11:29 Amikacin Sulfate 850 mg/Sodium Chloride 113.4 ml @ 113.4 mls/ hr Q48H IV 08/12/19 14:00 08/19/19 13:59 08/12/19 14:22 Digoxin (Lanoxin) 0.125 mg DAILY GT 08/13/19 09:00 09/12/19 08:59 08/13/19 09:21 Diltiazem HCl (Cardizem) 30 mg EVERY 8 HOURS GT 08/12/19 12:00 09/11/19 11:59 08/13/19 05:27 Docusate Sodium (Colace) 100 mg BID GT 08/09/19 18:00 09/08/19 17:59 08/13/19 09:20 Heparin Sodium (Porcine) (Heparin 5000 units/ml) 5,000 units EVERY 12 HOURS SUBQ 08/06/19 21:00 09/05/19 08:59 08/13/19 09:24 Levothyroxine Sodium (Synthroid) 125 mcg Q24H GT 08/07/19 06:30 09/06/19 06:29 08/13/19 05:27 Pantoprazole (Protonix) 40 mg EVERY 12 HOURS IVP 08/06/19 21:00 09/05/19 10:59 08/13/19 09:20 Temazepam (Restoril) 15 mg HSPRN PRN GT Insomnia 08/06/19 21:00 08/13/19 20:59 Trimethoprim/ Sulfamethoxazole 16.5 ml/Dextrose 566.5 ml @ 134.881 mls/hr [id number] BACTRIM IV 08/12/19 16:00 08/19/19 15:59 08/13/19 09:19 Sue Yu MD Aug 13, 2019 11:48
--- NOTE | 2019-08-13 11:52 | NUR ---
RD ASSESSMENT & RECOMMENDATIONS SEE CARE ACTIVITY FOR COMPLETE ASSESSMENT DAILY ESTIMATED NEEDS: Needs based on Wound, pulmonary, sepsis 59.8kg 30-35 kcals/kg 4423-8243 total kcals 1.25-2 g protein/kg 75-120 g total protein 25-30ml/kcal mL/kg 0705-8877 total fluid mLs NUTRITION DIAGNOSIS: * Swallowing difficulty R/T respiratory status, dysphagia as evidenced by pt is vent dep via T-collar + PEG dep, on GT feeds. * Increased kcal/prot needs R/T wound healing as evidenced by pt admitted w/ multiple wounds, including unstageable pressure injury at sacrum, reabsorbed DTPI at L heel, necrotic area at inferior but in close proximity to medial L malleolus, non-blanching erythema at L 1st metatarsal head and lateral aspect. CURRENT TF:Jevity 1.2 @ 80ml/hr x 22 hrs ENTERAL NUTRITION RECOMMENDATIONS: Maintain Jevity 1.2 @ 80ml/hr x 22 hrs \ to provide 1760ml, 2112 kcal, 98g pro, 1420ml free water - Maintain at goal - HOLD TF 1 hr before and after synthroid meds - HOB >30 degrees - H20 flush of 120ml q 6 hrs (without IVF) - TF @ goal provides 100% of RDI. ADDITIONAL RECOMMENDATIONS: 1) Calibrated bedscale wts 2) Monitor lytes daily, replete as needed, need for TF change, rate change 3) Wound healing: continue Vit C Add Tommie 1pkt in 4oz H2O BID 4) Re-calibrate bed scale w/ added P200 mattress + weekly weights to assess TF adequacy .
[2019-08-13 12:00] VITALS: BP 119/71
--- NOTE | 2019-08-13 13:59 | General Progress Note ---
Assessment/Plan Problem List: (1) Decubitus skin ulcer ICD Codes: L89.90 - Pressure ulcer of unspecified site, unspecified stage SNOMED: 797132566 (2) Hypernatremia ICD Codes: E87.0 - Hyperosmolality and hypernatremia SNOMED: 42832628 (3) Hypotension ICD Codes: I95.9 - Hypotension, unspecified SNOMED: 84753466 (4) Anemia ICD Codes: D64.9 - Anemia, unspecified SNOMED: 343078745 (5) Seizure disorder ICD Codes: G40.909 - Epilepsy, unspecified, not intractable, without status epilepticus SNOMED: 430871624 (6) Septic shock ICD Codes: A41.9 - Sepsis, unspecified organism; R65.21 - Severe sepsis with septic shock SNOMED: 48405397 (7) HTN (hypertension) ICD Codes: I10 - Essential (primary) hypertension SNOMED: 21429314 (8) Cardiomyopathy ICD Codes: I42.9 - Cardiomyopathy, unspecified SNOMED: 44236879 (9) Sepsis ICD Codes: A41.9 - Sepsis, unspecified organism SNOMED: 69220610 Qualifiers: Qualified Codes: A41.9 - Sepsis, unspecified organism (10) Acute and chronic respiratory failure ICD Codes: J96.20 - Acute and chronic respiratory failure, unspecified whether with hypoxia or hypercapnia SNOMED: 69372887 (11) Tracheostomy care ICD Codes: Z43.0 - Encounter for attention to tracheostomy SNOMED: 426482905 (12) Bowel obstruction ICD Codes: K56.609 - Unspecified intestinal obstruction, unspecified as to partial versus complete obstruction SNOMED: 01541855 (13) Feeding by G-tube ICD Codes: Z93.1 - Gastrostomy status SNOMED: 110078823, 216607187 (14) Malfunction of gastrostomy tube ICD Codes: K94.23 - Gastrostomy malfunction SNOMED: 225136463 (15) Chronic respiratory failure ICD Codes: J96.10 - Chronic respiratory failure, unspecified whether with hypoxia or hypercapnia SNOMED: 86161020 Qualifiers: Qualified Codes: J96.10 - Chronic respiratory failure, unspecified whether with hypoxia or hypercapnia (16) Chronic vegetative state ICD Codes: R40.3 - Persistent vegetative state SNOMED: 25469116 (17) Nosocomial pneumonia ICD Codes: J18.9 - Pneumonia, unspecified organism SNOMED: 340514846 (18) Fecal impaction ICD Codes: K56.41 - Fecal impaction SNOMED: 57592412 (19) ATN (acute tubular necrosis) ICD Codes: N17.0 - Acute kidney failure with tubular necrosis SNOMED: 70622484 (20) Ileus ICD Codes: K56.7 - Ileus, unspecified SNOMED: 696612506 (21) Acute on chronic renal failure ICD Codes: N17.9 - Acute kidney failure, unspecified; N18.9 - Chronic kidney disease, unspecified SNOMED: 985948443 (22) UTI (urinary tract infection) ICD Codes: N39.0 - Urinary tract infection, site not specified SNOMED: 68019903 (23) Anemia ICD Codes: D64.9 - Anemia, unspecified SNOMED: 577496180 Status: unchanged Assessment/Plan: o2 pulm tx trach care abx diet cbc bmp am heme gi eval ltach eval Subjective Constitutional: Reports: weakness Allergies: Coded Allergies: ASPIRIN (Verified Allergy, Unknown, 07/07/17) Subjective trach aerosol calm Objective Last 24 Hour Vital Signs Date Time Temp Pulse Resp B/P (MAP) Pulse Ox O2 Delivery O2 Flow Rate FiO2 08/13/19 12:45 98 T-Piece 5.0 28 08/13/19 12:00 5.0 28 08/13/19 12:00 98.6 90 18 119/71 (87) 97 08/13/19 09:21 93 08/13/19 09:00 Trach Collar 5.0 08/13/19 08:02 98 T-Piece 5.0 28 08/13/19 08:00 98.4 93 20 120/72 (88) 98 08/13/19 08:00 5.0 28 08/13/19 05:27 100 116/70 08/13/19 04:56 5.0 28 08/13/19 04:00 98.2 105 28 116/52 (73) 95 08/13/19 01:25 99 T-Piece 5.0 28 08/13/19 00:00 98.6 101 26 125/66 (85) 99 08/12/19 22:19 97 127/74 08/12/19 21:26 Trach Collar 5.0 08/12/19 20:41 5.0 28 08/12/19 20:18 98 T-Piece 5.0 28 08/12/19 20:00 98.4 107 24 124/60 (81) 98 08/12/19 16:00 5.0 28 08/12/19 16:00 98.9 104 22 128/66 (86) 99 Intake and Output 08/12/19 08/13/19 19:00 07:00 Intake Total 1543.162 ml 1000 ml Output Total 1000 ml Balance 1543.162 ml 0 ml Intake Oral 100 ml Free Water 200 ml 100 ml IV Total 383.162 ml Tube Feeding 960 ml 800 ml Output Urine Total 1000 ml # Voids 4 2 # Bowel Movements 2 Laboratory Tests 08/13/19 03:00: White Blood Count 13.3H, Red Blood Count 3.03L, Hemoglobin 8.9L, Hematocrit 27.5L, Mean Corpuscular Volume 91, Mean Corpuscular Hemoglobin 29.5, Mean Corpuscular Hemoglobin Concent 32.4, Red Cell Distribution Width 12.5, Platelet Count 291, Mean Platelet Volume 6.0L, Neutrophils (%) (Auto) 73.5, Lymphocytes ( %) (Auto) 17.8L, Monocytes (%) (Auto) 6.3, Eosinophils (%) (Auto) 2.2, Basophils (%) (Auto) 0.2, Sodium Level 139, Potassium Level 4.4, Chloride Level 107, Carbon Dioxide Level 23, Anion Gap 9, Blood Urea Nitrogen 26H, Creatinine 1.2, Estimat Glomerular Filtration Rate , Glucose Level 134H, Calcium Level 9.0 , Total Bilirubin 0.2, Aspartate Amino Transf (AST/SGOT) 25, Alanine Aminotransferase (ALT/SGPT) 29, Alkaline Phosphatase 121H, Pro-B-Type Natriuretic Peptide 809H, Total Protein 8.4H, Albumin 2.6L, Globulin 5.8, Albumin/Globulin Ratio 0.4L, Random Amikacin Level 14.7 08/13/19 04:45: White Blood Count 13.1H, Red Blood Count 2.85L, Hemoglobin 8.6L, Hematocrit 26.0L, Mean Corpuscular Volume 91, Mean Corpuscular Hemoglobin 30.3, Mean Corpuscular Hemoglobin Concent 33.2, Red Cell Distribution Width 12.6, Platelet Count 252, Mean Platelet Volume 8.5, Neutrophils (%) (Auto) 70.2, Lymphocytes (% ) (Auto) 20.8, Monocytes (%) (Auto) 5.3, Eosinophils (%) (Auto) 3.1H, Basophils (%) (Auto) 0.5 Height (Feet): 5 Height (Inches): 8.00 Weight (Pounds): 126 General Appearance: lethargic EENT: PERRL/EOMI Neck: normal alignment Cardiovascular: normal peripheral pulses, normal rate, regular rhythm Respiratory/Chest: chest wall non-tender, lungs clear, normal breath sounds Abdomen: normal bowel sounds, non tender, soft Extremities: normal inspection Edema: no edema noted Arm (L), no edema noted Arm (R), no edema noted Leg (L), no edema noted Leg (R), no edema noted Pedal (L), no edema noted Pedal (R), no edema noted Generalized Neurologic: motor weakness Skin: normal pigmentation, warm/dry Rl White DO Aug 13, 2019 13:59
--- NOTE | 2019-08-13 14:23 | Surgery Progress Note ---
Surgery Progress Note Subjective Additional Comments no acute events still with leukocytosis exam unchanged on TF on T piece Objective Last 24 Hour Vital Signs Date Time Temp Pulse Resp B/P (MAP) Pulse Ox O2 Delivery O2 Flow Rate FiO2 08/13/19 12:45 98 T-Piece 5.0 28 08/13/19 12:00 5.0 28 08/13/19 12:00 98.6 90 18 119/71 (87) 97 08/13/19 09:21 93 08/13/19 09:00 Trach Collar 5.0 08/13/19 08:02 98 T-Piece 5.0 28 08/13/19 08:00 98.4 93 20 120/72 (88) 98 08/13/19 08:00 5.0 28 08/13/19 05:27 100 116/70 08/13/19 04:56 5.0 28 08/13/19 04:00 98.2 105 28 116/52 (73) 95 08/13/19 01:25 99 T-Piece 5.0 28 08/13/19 00:00 98.6 101 26 125/66 (85) 99 08/12/19 22:19 97 127/74 08/12/19 21:26 Trach Collar 5.0 08/12/19 20:41 5.0 28 08/12/19 20:18 98 T-Piece 5.0 28 08/12/19 20:00 98.4 107 24 124/60 (81) 98 08/12/19 16:00 5.0 28 08/12/19 16:00 98.9 104 22 128/66 (86) 99 I&O Intake and Output 08/12/19 08/13/19 19:00 07:00 Intake Total 1543.162 ml 1000 ml Output Total 1000 ml Balance 1543.162 ml 0 ml Intake Oral 100 ml Free Water 200 ml 100 ml IV Total 383.162 ml Tube Feeding 960 ml 800 ml Output Urine Total 1000 ml # Voids 4 2 # Bowel Movements 2 Dressing: other Wound: other Drains: other Cardiovascular: RSR Respiratory: clear, decreased breath sounds Abdomen: soft, present bowel sounds, other Extremities: no cyanosis, other Laboratory Tests Test 08/13/19 03:00 08/13/19 04:45 White Blood Count 13.3 K/UL (4.8-10.8) H 13.1 K/UL (4.8-10.8) H Red Blood Count 3.03 M/UL (4.20-5.40) L 2.85 M/UL (4.20-5.40) L Hemoglobin 8.9 G/DL (12.0-16.0) L 8.6 G/DL (12.0-16.0) L Hematocrit 27.5 % (37.0-47.0) L 26.0 % (37.0-47.0) L Mean Corpuscular Volume 91 FL (80-99) 91 FL (80-99) Mean Corpuscular Hemoglobin 29.5 PG (27.0-31.0) 30.3 PG (27.0-31.0) Mean Corpuscular Hemoglobin Concent 32.4 G/DL (32.0-36.0) 33.2 G/DL (32.0-36.0) Red Cell Distribution Width 12.5 % (11.6-14.8) 12.6 % (11.6-14.8) Platelet Count 291 K/UL (150-450) 252 K/UL (150-450) Mean Platelet Volume 6.0 FL (6.5-10.1) L 8.5 FL (6.5-10.1) Neutrophils (%) (Auto) 73.5 % (45.0-75.0) 70.2 % (45.0-75.0) Lymphocytes (%) (Auto) 17.8 % (20.0-45.0) L 20.8 % (20.0-45.0) Monocytes (%) (Auto) 6.3 % (1.0-10.0) 5.3 % (1.0-10.0) Eosinophils (%) (Auto) 2.2 % (0.0-3.0) 3.1 % (0.0-3.0) H Basophils (%) (Auto) 0.2 % (0.0-2.0) 0.5 % (0.0-2.0) Sodium Level 139 MMOL/L (136-145) Potassium Level 4.4 MMOL/L (3.5-5.1) Chloride Level 107 MMOL/L (98-107) Carbon Dioxide Level 23 MMOL/L (21-32) Anion Gap 9 mmol/L (5-15) Blood Urea Nitrogen 26 mg/dL (7-18) H Creatinine 1.2 MG/DL (0.55-1.30) Estimat Glomerular Filtration Rate mL/min (>60) Glucose Level 134 MG/DL (74-106) H Calcium Level 9.0 MG/DL (8.5-10.1) Total Bilirubin 0.2 MG/DL (0.2-1.0) Aspartate Amino Transf (AST/SGOT) 25 U/L (15-37) Alanine Aminotransferase (ALT/SGPT) 29 U/L (12-78) Alkaline Phosphatase 121 U/L (46-116) H Pro-B-Type Natriuretic Peptide 809 pg/mL (0-125) H Total Protein 8.4 G/DL (6.4-8.2) H Albumin 2.6 G/DL (3.4-5.0) L Globulin 5.8 g/dL Albumin/Globulin Ratio 0.4 (1.0-2.7) L Random Amikacin Level 14.7 ug/mL Plan Problems: (1) Sepsis Assessment & Plan: 84-year-old very unfortunate female with multiple medical comorbidities who has leukocytosis, lactic acidosis, likely UTI. Presents with multiple wounds and unstageable decubitus ulcers. Wound evaluated at bedside and unlikely the etiology of patient's sepsis. Leukocytosis lactic sepsis likely due to UTI. Patient currently on IV antibiotics as per infectious disease. Lactic acidosis improving. Exam as above. Care management as presented below. We will continue to follow recommendations. Thank you for allowing me to participate in patient's care. wbc improved. febrile. cultures pending final Worsening leukocytosis and abnormal ESR and CRP elevated. Abnormal labs. Continues to be fairly ill without significant recovery or improvement at this time. Prognosis very guarded. We will continue with above care plan. (2) Tracheostomy care Assessment & Plan: Trach site stable. Respiratory as per pulm (3) Feeding by G-tube Assessment & Plan: DAILY ESTIMATED NEEDS: Needs based on Wound, pulmonary 59.8kg 30-35 kcals/kg 0665-1165 total kcals 1.25-1.5 g protein/kg 75-90 g total protein 25-30ml/kcal mL/kg 7047-3735 total fluid mLs NUTRITION DIAGNOSIS: * Swallowing difficulty R/T respiratory status, dysphagia as evidenced by pt is vent dep via T-collar + PEG dep, NPO at this time * Increased kcal/prot needs R/T wound healing as evidenced by pt admitted w/ full thickness pressure sacral injury, with multiple other wounds, eval pending. (CURRENT TF: NPO) ENTERAL NUTRITION RECOMMENDATIONS: Jevity 1.2 @ 70ml/hr x 22 hrs + Prosource 1pkt QD to provide 1540ml, 1848 kcal, 85g pro, 1243 - As medically able, rec Jevity 1.2, start @30ml/hr for 6 hrs. Advance as tolerated 10ml/hr q4-6 hrs to goal - HOLD TF 1 hr before and after synthroid meds - HOB >30 degrees/ water flushes per MD - TF @ goal provides 100% of RDI. ADDITIONAL RECOMMENDATIONS: 1) Calibrated bedscale wts (EMR wt: 160 lbs vs Bed wt: 131.6lbs) 2) Rec water flushes, 120ml q6 hrs 3) Monitor BGs closely, need for hypoglycemic agents or TF change 4) Wound healing: Vit C 250mg BID Add Tommie 1pkt in 4oz H2O BID 5) F/up w/ H&P and WC eval . (4) Decubitus skin ulcer Assessment & Plan: Pt presented on admission with multiple pressure injuries. Skin assessed under trach collar and no evidence of skin breakdown noted. Unstageable pressure injury noted to sacrum(L)1.5cm x (W)2cm. Base of wound has 75% slough,25%pink granulation. Borders are macerated with surrounding non- blanching erythema. R heel Maroon,fluctuant in center with surrounding dry black borders(L)5.5cm x (W)9cm. Reabsorbed DTPI noted to L heel. Base of wound is Black and dry. Surrounding dry peeling skin without erythema.(L)5.5cm x (W)8.5cm. Inferior but in close proximity to Medial L malleolus necrotic area over bony prominence noted. Base of wound is dry without fluctuance. Periwound without discoloration.(L)1.5cm x (W)1cm. Non-Blanching erythema noted to L 1st metatarsal head and lateral aspect. No elevation in skin temp noted. Tx.Plan: Cleanse Sacral wound with Saline. Apply TheraHoney . Apply Moisture Barrier paste periwound. Cover with Optifoam drsg. Change every 3 days and prn. Apply Betadine to R heel. Cover with Optifoam drsg. Change every 3 days and prn. Apply Betadine to L Heel and Medial L foot. Cover with Optifoam drsg. Change every 3 days and prn. Apply Cavilon Skin Barrier to L 1st metatarsal head and lateral aspect Daily and prn. APM/MARCOS Mattress overlay. Reposition at least every 2hours or as tolerated. Off-load heels with pillow. Place pillow between knees. Livan Dean Aug 13, 2019 14:23
[2019-08-13 16:00] VITALS: BP 112/43
--- NOTE | 2019-08-13 16:41 | NUR ---
NURSE NOTES: At 1457 Cardizem 30 mg was given per orders for a heart rate of 105. At 1630 the patient was found to have a blood pressure of 112/43 with a heart rate of of 91 [address]PM. Doctor Rubin notified. Doctor aware and ordered an ecg. Will continue to monitor patient and follow plan of care.
--- NOTE | 2019-08-13 19:19 | NUR ---
HAND-OFF: Report given to Richmondu RN.
--- NOTE | 2019-08-13 19:20 | NUR ---
NURSE NOTES: Received report from RONDA Hernandez. Patient asleep. Breathing unlabored with trach in placed and intact. No s/s of pain noted at this time. Suctioning done. G-tube in place running Jevity 1.2at 80 ml/hr without residuals. Purewick in place for incontinence care and prevent further skin breakdown. IV noted on left wrist intact, dry, clean, and patent. Patient on a P200 mattress. Bed placed at the lowest with alarm, brake, and siderails up and padded for safety. Call light placed within reach. Will continue to monitor and provide care as ordered.
[2019-08-13 20:00] VITALS: BP 112/48
--- NOTE | 2019-08-13 22:45 | NUR ---
NURSE NOTES: Provided incontinence care. Cleaned and provided new dressing change. Patient tolerated the procedure well. Will continue to monitor and provide care as ordered.
[2019-08-14] VITALS: BP 116/63
[2019-08-14] MEDS: TRIMETHOPRIM IV SCH ×2 (00:03→08:11)
[2019-08-14] MEDS: SULFAMETHOXAZOLE IV SCH ×2 (00:03→08:11)
[2019-08-14] MEDS: D5W IV SCH ×2 (00:03→08:11)
--- NOTE | 2019-08-14 00:15 | Consultation ---
DATE OF CONSULTATION: 08/12/2019 CARDIOLOGY CONSULTATION CONSULTING PHYSICIAN: Leobardo Conklin M.D. REFERRING PHYSICIAN: Rl White D.O. REASON FOR CONSULTATION: Management of hypertension crisis. HISTORY OF PRESENT ILLNESS: This is a very unfortunate 84-year-old female, who is a resident of a group home facility, who was brought in by EMS for evaluation and management of abnormal laboratories. The patient apparently had high serum sodium level as well as elevated white blood cell count. At the time of arrival to the emergency department, the patient was found to be nonverbal and had tracheostomy collar to oxygen. Complete history could not be therefore taken from the patient. Her coronary artery disease risk factors includes hypertension. Her cardiovascular history was also significant for history of cardiac arrhythmias as well as CVA/TIA. At the time of arrival to this facility, blood pressure was 123/80 mmHg and heart rate was 114. A 12-lead electrocardiogram was significant for multifocal atrial tachycardia with associated LVH. Initial laboratory values on 08/06/2019 showed leukocytosis with WBC count of 13.4, anemia with hemoglobin of 10.6, hypernatremia with serum sodium of 169, BUN and creatinine of 60 and 1.5 respectively. Troponin I level was within normal limits. ProBNP was elevated at 389. The patient was admitted to the hospital for further evaluation and management. Initial chest x-ray was significant for bilateral interstitial disease on the basis of pulmonary edema or inflammatory changes, which was similar to the x-ray obtained in December 2018 signifying the chronic component. On 08/12/2019, the patient's heart rate was elevated at 122 and blood pressure was 158/68 mmHg. Cardiology consultation was made at request of Dr. White to address and manage the above. PAST MEDICAL HISTORY: 1. COPD. 2. CVA/TIA. 3. Dementia. 4. Seizure. 5. Quadriplegia. 6. Chronic ventilatory failure, status post tracheostomy tube placement. 7. History of hypertension. 8. History of seizures as mentioned. ALLERGIES: Aspirin. PAST SURGICAL HISTORY: 1. Status post tracheostomy placement. 2. Status post G-tube placement. SOCIAL HISTORY: No history of tobacco, alcohol, or illicit drug use. FAMILY HISTORY: No premature coronary artery disease in the first-degree relative. REVIEW OF SYSTEMS: A 12-system review could not be obtained as the patient is nonverbal. LIST OF MEDICATIONS: Acetaminophen 20 mL G-tube q.4 hours p.r.n. pain and temperature above 100.5, Pro-Stat liquid 30 mL G-tube daily, bisacodyl 10 mg RS at bedtime p.r.n. constipation, cranberry 450 mg G-tube daily, Pepcid 20 mg G-tube daily, glucagon 1 mg IJ, heparin sodium 5000 subcutaneous q.12 hours, hydroxyzine 10 mg G-tube once daily, Xalatan eye drops both eyes at bedtime, Synthroid 125 mcg G-tube daily, magnesium hydroxide 30 mL G-tube q.6 hours p.r.n. constipation, melatonin 3 mg G-tube at bedtime, Namenda 5 mg G-tube twice daily, multivitamin 1 tablet G-tube daily, vitamin C 500 mg or 15 mL G-tube daily, and zinc sulfate 220 mg G-tube daily. PHYSICAL EXAMINATION: VITAL SIGNS: Blood pressure is 158/68, heart rate of 122, respirations 24, temperature 99.7 degrees Fahrenheit, O2 saturation 98% on 5 liter O2 every day FiO2 of 28%. GENERAL: The patient is a very unfortunate 84-year-old lady who is nonverbal, in no apparent respiratory distress. HEENT: Atraumatic and normocephalic. Anicteric. Pupils are equal, round, and reactive to light and accommodation. Extraocular muscles intact. NECK: Presence of a tracheostomy tube, JVP cannot be assessed. CARDIOVASCULAR: Distant S1 and S2. I cannot appreciate any murmurs, gallops, or rubs. LUNGS: Diminished breath sounds in both lungs. ABDOMEN: Soft, nontender, and nondistended. No hepatosplenomegaly. Positive G-tube. EXTREMITIES: Contracted. LABORATORY FINDINGS: On 08/12/2019, WBC 13.1, hemoglobin 9.9, hematocrit 30.9, and platelet count 315. Sodium 145, potassium is 4.4, chloride 110, bicarbonate is 26, BUN of 23, creatinine 1.2, glucose 133, calcium is 9.5. ProBNP was 610. INR is 1.2. Latest chest x-ray, no cardiomegaly, tortuous aorta, increased interstitial markings. 2D echocardiography from 12/22/2016 showed normal LV systolic function with LVEF over 60%, mild LVH, grade 1 LV diastolic dysfunction with normal intracardiac filling pressure, and RVSP of 50 mmHg. ASSESSMENT AND PLAN: The patient is a very unfortunate 84-year-old female, seen in Cardiology consultation. 1. Hypertension crisis. I would like to continue the patient on diltiazem 30 mg q.8 hours, the parameter would be to hold systolic blood pressure less than 100. Of note, 2D echocardiography from 2017 had shown normal LV systolic function with grade 1 LV diastolic dysfunction and normal intracardiac filling pressures. 2. History of CVA. The patient benefits from combination of aspirin and statins. 3. History of chronic respiratory failure, status post tracheostomy tube placement. 4. History of dysphagia, status post PEG placement. 5. History of COPD. 6. Quadriplegia. I would like to thank, Dr. White, for the courtesy of this consultation. Leobardo Conklin M.D. DR: DEANNA JOB#: [id number] CC:
[2019-08-14 04:00] VITALS: BP 119/46
--- NOTE | 2019-08-14 04:30 | Consultation ---
DATE OF CONSULTATION: 08/13/2019 CONSULTING PHYSICIAN: Steven Dunlap M.D. HISTORY OF PRESENT ILLNESS: She is an 84-year-old female patient, who came in to the hospital and she has a history of hyponatremia, lot of confusion, disorganized thought process, worsened by the stress of her medical illness. That is why her attending physician has requested daily psychiatric consultation. MENTAL STATUS EXAMINATION: This is an 84-year-old female. Appearance is disheveled. Attitude, irritable and agitated. Affect, guarded and restricted. Intellect poor. Mood, depressed and anxious. Motor activity, psychomotor agitation. Attention span is poor. Orientation x2. Speech is low volume and slurred. Thought process, disorganized and illogical. Insight and judgment is poor. DIAGNOSIS: Major depressive disorder, mild, recurrent with psychotic features, rule out dementia with psychosis. PLAN: My plan for this patient is to treat her with a medication regimen consisting of Restoril at 15 mg at bedtime and also treat her with 15 mg at bedtime, and Namenda 5 mg per G-tube daily. She will continue to be followed by Psychiatry throughout hospital course. Twenty minutes of behavioral management provided. Chart reviewed and discussed with staff. Seen and assessed at bedside. Steven Dunlap M.D. DR: CHRISTOS JOB#: [id number] CC:
--- NOTE | 2019-08-14 05:00 | NUR ---
NURSE NOTES: provided incontinence care. Patient had BM x 1. Brown, soft, pasty, moderate amount. Changed sacral dressing while providing incontinence care. Patient tolerated the process well. Will continue to monitor.
[2019-08-14] MEDS: dilTIAZem HCl 30mg tab GT SCH ×2 (05:55→14:00)
[2019-08-14] MEDS: Levothyroxine 125mcg tab GT SCH (06:00)
[2019-08-14 07:09] LABS: HEMATOCRIT 23.7 % (37.0-47.0); HEMOGLOBIN 7.7 G/DL (12.0-16.0); MEAN CORPUSCULAR VOLUME 91 FL (80-99); PLATELET COUNT 298 K/UL (150-450); RED CELL DISTRIBUTION WIDTH 12.1 % (11.6-14.8); WHITE BLOOD COUNT 12.7 K/UL (4.8-10.8)
[2019-08-14 07:11] LABS: ANION GAP 7 mmol/L (5-15); BLOOD UREA NITROGEN 28 mg/dL (7-18); CALCIUM 8.8 MG/DL (8.5-10.1); CARBON DIOXIDE 27 MMOL/L (21-32); CHLORIDE 103 MMOL/L (98-107); CREATININE 1.5 MG/DL (0.55-1.30); POTASSIUM 5.1 MMOL/L (3.5-5.1); SODIUM 137 MMOL/L (136-145)
--- NOTE | 2019-08-14 07:20 | NUR ---
HAND-OFF: Report given to RONDA Yung and RONDA Hernandez.
--- NOTE | 2019-08-14 07:25 | NUR ---
NURSE NOTES: Report received from Minsu RN. Patient upright in bed in fowlers position. Not in respiratory distress. Does not need to be suctioned at this time. New skin break down noted on right leg, shown by overnight RN Minsu. Optifoam in place. Feeding tube turned back on at 80 cc / hr. 20 wild IV intact and patent in right hand. Bed locked, in lowest position, and alarmed. Will continue to follow plan of care.
[2019-08-14 08:00] VITALS: BP 104/68
[2019-08-14] MEDS ORDERED: LORazepam 0.5mg tab GT PRN (08:00)
[2019-08-14] MEDS: Docusate 100mg/10ml Liq GT SCH ×2 (08:12→18:00)
[2019-08-14] MEDS: Pantoprazole Inj IVP SCH ×2 (08:13→20:13)
[2019-08-14] MEDS: Acetaminophen 650mg/20.3ml GT PRN (08:18)
--- NOTE | 2019-08-14 08:18 | NUR ---
NURSE NOTES: Patient has a temperature of 100.6. Tylenol 650 mg given. Will reassess and continue to follow plan of care.
[2019-08-14] MEDS: Heparin 5000 units/ml inj SUBQ SCH ×2 (08:19→20:14)
--- NOTE | 2019-08-14 08:48 | NUR ---
NURSE NOTES: Re-check temperature. Axillary temperature of 98.4. Will continue to follow plan of care.
[2019-08-14] MEDS ORDERED: Digoxin 0.125mg tab GT SCH (09:00)
--- NOTE | 2019-08-14 09:58 | General Progress Note ---
Assessment/Plan Problem List: (1) Acute on chronic renal failure ICD Codes: N17.9 - Acute kidney failure, unspecified; N18.9 - Chronic kidney disease, unspecified SNOMED: 922850090 (2) Chronic vegetative state ICD Codes: R40.3 - Persistent vegetative state SNOMED: 91437547 (3) Chronic respiratory failure ICD Codes: J96.10 - Chronic respiratory failure, unspecified whether with hypoxia or hypercapnia SNOMED: 25736273 Qualifiers: Qualified Codes: J96.10 - Chronic respiratory failure, unspecified whether with hypoxia or hypercapnia (4) Feeding by G-tube ICD Codes: Z93.1 - Gastrostomy status SNOMED: 954580277, 900302789 (5) HTN (hypertension) ICD Codes: I10 - Essential (primary) hypertension SNOMED: 01405510 (6) Anemia ICD Codes: D64.9 - Anemia, unspecified SNOMED: 336578000 Status: unchanged Assessment/Plan: EGD and colonoscopy on hold for now d/w with public guardian patient is DNR with limited interventions must be reviewed prior decision stool ob neg.>>>>neg monitor H&H, prn transfusions PPI daily GTF colace and miralax Subjective ROS Limited/Unobtainable: No Allergies: Coded Allergies: ASPIRIN (Verified Allergy, Unknown, 07/07/17) Objective Last 24 Hour Vital Signs Date Time Temp Pulse Resp B/P (MAP) Pulse Ox O2 Delivery O2 Flow Rate FiO2 08/14/19 09:00 Trach Collar 5.0 08/14/19 08:48 98.4 08/14/19 08:17 60 08/14/19 08:00 100.6 65 20 104/68 (80) 100 08/14/19 08:00 5.0 28 08/14/19 05:55 104 126/60 08/14/19 04:00 5.0 28 08/14/19 04:00 98.2 89 20 119/46 (70) 96 08/14/19 01:10 98 T-Piece 5.0 28 08/14/19 00:00 99.4 101 24 116/63 (80) 98 08/13/19 22:00 95 116/51 08/13/19 21:00 Trach Collar 5.0 08/13/19 20:00 5.0 28 08/13/19 20:00 99.0 94 20 112/48 (69) 96 08/13/19 19:50 98 T-Piece 5.0 28 08/13/19 16:00 99.5 95 19 112/43 (66) 95 08/13/19 16:00 5.0 28 08/13/19 14:57 105 112/55 08/13/19 12:45 98 T-Piece 5.0 28 08/13/19 12:00 5.0 28 08/13/19 12:00 98.6 90 18 119/71 (87) 97 Intake and Output 08/13/19 08/14/19 18:59 06:59 Intake Total 1916.262 ml 1926.500 ml Output Total 1000 ml Balance 1916.262 ml 926.500 ml Intake Oral 100 ml Free Water 200 ml 300 ml IV Total 836.262 ml 566.500 ml Tube Feeding 880 ml 960 ml Output Urine Total 1000 ml # Bowel Movements 1 2 Laboratory Tests 08/14/19 05:42: White Blood Count 12.7H, Red Blood Count 2.60L, Hemoglobin 7.7L, Hematocrit 23.7L, Mean Corpuscular Volume 91, Mean Corpuscular Hemoglobin 29.6, Mean Corpuscular Hemoglobin Concent 32.6, Red Cell Distribution Width 12.1, Platelet Count 298, Mean Platelet Volume 7.0, Neutrophils (%) (Auto) , Lymphocytes (%) ( Auto) , Monocytes (%) (Auto) , Eosinophils (%) (Auto) , Basophils (%) (Auto) , Neutrophils % (Manual) [Pending], Lymphocytes % (Manual) [Pending], Platelet Estimate [Pending], Platelet Morphology [Pending], Sodium Level 137, Potassium Level 5.1, Chloride Level 103, Carbon Dioxide Level 27, Anion Gap 7, Blood Urea Nitrogen 28H, Creatinine 1.5H, Estimat Glomerular Filtration Rate , Glucose Level 110H, Calcium Level 8.8 Height (Feet): 5 Height (Inches): 8.00 Weight (Pounds): 126 General Appearance: no apparent distress EENT: normal ENT inspection Neck: normal alignment Cardiovascular: normal rate Respiratory/Chest: decreased breath sounds Abdomen: normal bowel sounds, non tender, soft Extremities: non-tender Jad Skinner MD Aug 14, 2019 09:58
--- NOTE | 2019-08-14 10:58 | NUR ---
P.T NOTE: P.T EVALUATION COMPLETED. PATIENT IS ALERT, NON VERBAL, ESSENTIALLY NOT FOLLOWING SIMPLE COMMANDS. PATIENT PRESENTS RIGIDITY ON BUE/LE. PATIENT IS NOT ABLE TO ENGAGE IN ANY FUNCTIONAL ACTIVITIES THEREFORE IS DEPENDENT IN ALL ABOVE ASPECTS. DUE TO ABOVE REASONS, PATIENT IS NOT A CANDIDATE FOR SKILLED P.T SERVICES. RECOMMEND D/C TO [facility]IOR [facility]IV[facility] FOR TOTAL CARE AND COMFORT. D/C P.T SERVICES. THANK YOU FOR THIS REFERRAL.
[2019-08-14 12:00] VITALS: BP 108/49
--- NOTE | 2019-08-14 13:36 | Pulmonology Progress Note ---
Assessment/Plan Problems: (1) Nosocomial pneumonia (2) Acute on chronic renal failure (3) Chronic respiratory failure (4) Tracheostomy care (5) Cardiomyopathy (6) Seizure disorder (7) Feeding by G-tube (8) Chronic vegetative state Assessment/Plan WBC is high still febrile cultures, Urine has Proteus Mirabilis, sputum has pseudomonas MDR iv abx, Amikacin and Bactrim IV continue gtube feeding tracheostomy care dvt prophylaxis all meds reviewed. some discontinued Subjective ROS Limited/Unobtainable: No Constitutional: Reports: no symptoms HEENT: Repors: no symptoms Allergies: Coded Allergies: ASPIRIN (Verified Allergy, Unknown, 07/07/17) Objective Last 24 Hour Vital Signs Date Time Temp Pulse Resp B/P (MAP) Pulse Ox O2 Delivery O2 Flow Rate FiO2 08/14/19 12:00 100.0 104 22 108/49 (68) 100 08/14/19 12:00 5.0 28 08/14/19 09:00 Trach Collar 5.0 08/14/19 08:48 98.4 08/14/19 08:17 60 08/14/19 08:00 100.6 65 20 104/68 (80) 100 08/14/19 08:00 5.0 28 08/14/19 05:55 104 126/60 08/14/19 04:00 5.0 28 08/14/19 04:00 98.2 89 20 119/46 (70) 96 08/14/19 01:10 98 T-Piece 5.0 28 08/14/19 00:00 99.4 101 24 116/63 (80) 98 08/13/19 22:00 95 116/51 08/13/19 21:00 Trach Collar 5.0 08/13/19 20:00 5.0 28 08/13/19 20:00 99.0 94 20 112/48 (69) 96 08/13/19 19:50 98 T-Piece 5.0 28 08/13/19 16:00 99.5 95 19 112/43 (66) 95 08/13/19 16:00 5.0 28 08/13/19 14:57 105 112/55 Intake and Output 08/13/19 08/14/19 19:00 07:00 Intake Total 1995.262 ml 1846.500 ml Output Total 1000 ml Balance 1996.262 ml 846.500 ml Intake Oral 100 ml Free Water 200 ml 300 ml IV Total 836.262 ml 566.500 ml Tube Feeding 960 ml 880 ml Output Urine Total 1000 ml # Bowel Movements 1 2 General Appearance: WD/WN HEENT: normocephalic, atraumatic Respiratory/Chest: chest wall non-tender, lungs clear Breasts: no masses Cardiovascular: normal peripheral pulses Abdomen: normal bowel sounds Genitourinary: normal external genitalia Extremities: no clubbing Neurologic/Psychiatric: betting clerk II-XII grossly normal Lymphatic: no neck adenopathy Laboratory Tests 08/14/19 05:42: White Blood Count 12.7H, Red Blood Count 2.60L, Hemoglobin 7.7L, Hematocrit 23.7L, Mean Corpuscular Volume 91, Mean Corpuscular Hemoglobin 29.6, Mean Corpuscular Hemoglobin Concent 32.6, Red Cell Distribution Width 12.1, Platelet Count 298, Mean Platelet Volume 7.0, Neutrophils (%) (Auto) , Lymphocytes (%) ( Auto) , Monocytes (%) (Auto) , Eosinophils (%) (Auto) , Basophils (%) (Auto) , Differential Total Cells Counted 100, Neutrophils % (Manual) 57, Lymphocytes % ( Manual) 27, Monocytes % (Manual) 10, Eosinophils % (Manual) 6H, Basophils % ( Manual) 0, Band Neutrophils 0, Platelet Estimate Adequate, Platelet Morphology Normal, Polychromasia 1+, Hypochromasia 1+, Sodium Level 137, Potassium Level 5.1, Chloride Level 103, Carbon Dioxide Level 27, Anion Gap 7, Blood Urea Nitrogen 28H, Creatinine 1.5H, Estimat Glomerular Filtration Rate , Glucose Level 110H, Calcium Level 8.8 Current Medications Medications (Trade) Dose Ordered Sig/Torsten Route PRN Reason Start Time Stop Time Status Last Admin Dose Admin Acetaminophen (Tylenol) 650 mg Q4H PRN GT fever (temp>100.5F) 08/06/19 20:00 09/05/19 19:59 08/14/19 08:18 Acetaminophen (Tylenol) 650 mg Q4H PRN GT headache, mild pain 08/06/19 20:00 09/05/19 19:59 Amikacin Protocol (Amikacin pharmacy to dose) 1 ea DAILY PRN MISC Per rx protocol 08/12/19 11:30 09/11/19 11:29 Amikacin Sulfate 850 mg/Sodium Chloride 113.4 ml @ 113.4 mls/ hr Q48H IV 08/12/19 14:00 08/19/19 13:59 08/12/19 14:22 Digoxin (Lanoxin) 0.125 mg DAILY GT 08/14/19 09:00 09/13/19 08:59 Diltiazem HCl (Cardizem) 30 mg EVERY 8 HOURS GT 08/14/19 06:00 09/13/19 05:59 08/14/19 05:55 Docusate Sodium (Colace) 100 mg BID GT 08/09/19 18:00 09/08/19 17:59 08/13/19 18:18 Heparin Sodium (Porcine) (Heparin 5000 units/ml) 5,000 units EVERY 12 HOURS SUBQ 08/06/19 21:00 09/05/19 08:59 08/14/19 08:19 Levothyroxine Sodium (Synthroid) 125 mcg Q24H GT 08/07/19 06:30 09/06/19 06:29 08/14/19 06:00 Lorazepam (Ativan) 0.5 mg Q6H PRN GT For Anxiety 08/14/19 08:00 08/21/19 07:59 Memantine (Namenda) 5 mg QHS GT 08/14/19 21:00 09/13/19 20:59 Pantoprazole (Protonix) 40 mg EVERY 12 HOURS IVP 08/06/19 21:00 09/05/19 10:59 08/14/19 08:13 Trimethoprim/ Sulfamethoxazole 16.5 ml/Dextrose 566.5 ml @ 134.881 mls/hr [id number] BACTRIM IV 08/12/19 16:00 08/19/19 15:59 08/14/19 08:11 Sue Yu MD Aug 14, 2019 13:36
--- NOTE | 2019-08-14 13:51 | Nephrology Progress Note ---
Assessment/Plan Problem List: (1) Dehydration Assessment: improving (2) Hypernatremia Assessment: improving (3) Anemia (4) Seizure disorder (5) UTI (urinary tract infection) (6) Hypothyroidism Assessment Renal failure mainly prerenal dehydration / Hypernatremia free water deficit Anemia PEG UTI / Pneumonia HypoThyroidism Plan DC K supplement Watch serum Cr Albumin bolus D5W IV Smith blood sugar check monitor renal parameters Subjective ROS Limited/Unobtainable: No Constitutional: Reports: malaise Objective Objective Last 24 Hour Vital Signs Date Time Temp Pulse Resp B/P (MAP) Pulse Ox O2 Delivery O2 Flow Rate FiO2 08/14/19 12:00 100.0 104 22 108/49 (68) 100 08/14/19 12:00 5.0 28 08/14/19 09:00 Trach Collar 5.0 08/14/19 08:48 98.4 08/14/19 08:17 60 08/14/19 08:00 100.6 65 20 104/68 (80) 100 08/14/19 08:00 5.0 28 08/14/19 05:55 104 126/60 08/14/19 04:00 5.0 28 08/14/19 04:00 98.2 89 20 119/46 (70) 96 08/14/19 01:10 98 T-Piece 5.0 28 08/14/19 00:00 99.4 101 24 116/63 (80) 98 08/13/19 22:00 95 116/51 08/13/19 21:00 Trach Collar 5.0 08/13/19 20:00 5.0 28 08/13/19 20:00 99.0 94 20 112/48 (69) 96 08/13/19 19:50 98 T-Piece 5.0 28 08/13/19 16:00 99.5 95 19 112/43 (66) 95 08/13/19 16:00 5.0 28 08/13/19 14:57 105 112/55 Intake and Output 08/13/19 08/14/19 19:00 07:00 Intake Total 1995.262 ml 1846.500 ml Output Total 1000 ml Balance 1995.262 ml 846.500 ml Intake Oral 100 ml Free Water 200 ml 300 ml IV Total 836.262 ml 566.500 ml Tube Feeding 960 ml 880 ml Output Urine Total 1000 ml # Bowel Movements 1 2 Laboratory Tests 08/14/19 05:42: White Blood Count 12.7H, Red Blood Count 2.60L, Hemoglobin 7.7L, Hematocrit 23.7L, Mean Corpuscular Volume 91, Mean Corpuscular Hemoglobin 29.6, Mean Corpuscular Hemoglobin Concent 32.6, Red Cell Distribution Width 12.1, Platelet Count 298, Mean Platelet Volume 7.0, Neutrophils (%) (Auto) , Lymphocytes (%) ( Auto) , Monocytes (%) (Auto) , Eosinophils (%) (Auto) , Basophils (%) (Auto) , Differential Total Cells Counted 100, Neutrophils % (Manual) 57, Lymphocytes % ( Manual) 27, Monocytes % (Manual) 10, Eosinophils % (Manual) 6H, Basophils % ( Manual) 0, Band Neutrophils 0, Platelet Estimate Adequate, Platelet Morphology Normal, Polychromasia 1+, Hypochromasia 1+, Sodium Level 137, Potassium Level 5.1, Chloride Level 103, Carbon Dioxide Level 27, Anion Gap 7, Blood Urea Nitrogen 28H, Creatinine 1.5H, Estimat Glomerular Filtration Rate , Glucose Level 110H, Calcium Level 8.8 Height (Feet): 5 Height (Inches): 8.00 Weight (Pounds): 126 General Appearance: no apparent distress EENT: other - trach to O2 collar Cardiovascular: tachycardia Respiratory/Chest: decreased breath sounds Abdomen: distended Objective no change Tono Case MD Aug 14, 2019 13:51
--- NOTE | 2019-08-14 14:02 | Infectious Diseases Prog Note ---
Assessment/Plan Assessment/Plan Assessment: Sepsis Probable UTI -u/a wbc tnct; ucx >100k P. mirabilis, probable AMP-c -BCx Neg Probable PNA -08/07 CXR: probably unchanged bilateral diffuse interstitial and airspace disease, right greater than left. Atelectatic changes at the left lung base are again noted. -CXR: Bilateral interstitial disease, may be on the basis of pulmonary edema or may reflect inflammatory changes. This is similar to the previous study of 01/02/2019, 70 may also be a chronic component -influenza sc neg -sp cx GNR Leukocytosis; SP Low grade fever; improving Hypernatremia, SP JAMES, improving hx of PNA -12/2018 sp cx PsA -10/2017 MDR PSA, H. flu hx of septic shock with MDRO hx of MDR ABC VAP 2017 hx of b/l pneumothorax 12/2018 HTN seizure disorder Dementia CVA/TIA quadriplegia chronic resp failure s/p trac/vent dependant dysphagia s/p PEG COPD SNF resident Plan: - Start Inh Colistin #1 - Continue Bactrim #3 - f/u P.a. Sensitivities for Avycaz, Zerbaxa, Aztreonam - 08/14/19 SP Amikacin #3 - Increasing Cr -08/11/19 S/P Meropenem #5 -08/11/19 S/P IV Vancomycin #6 -08/08 SP Cefepime #3 -08/06 SP Zosyn x1 -f/u cx -Monitor CBC/CMP, temperatures -peg/trach care -aspiration precautions Thank you for this consultation. Will continue to follow along with you. 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 Objective Vital Signs Last 24 Hour Vital Signs Date Time Temp Pulse Resp B/P (MAP) Pulse Ox O2 Delivery O2 Flow Rate FiO2 08/14/19 12:00 100.0 104 22 108/49 (68) 100 08/14/19 12:00 5.0 28 08/14/19 09:00 Trach Collar 5.0 08/14/19 08:48 98.4 08/14/19 08:17 60 08/14/19 08:00 100.6 65 20 104/68 (80) 100 08/14/19 08:00 5.0 28 08/14/19 05:55 104 126/60 08/14/19 04:00 5.0 28 08/14/19 04:00 98.2 89 20 119/46 (70) 96 08/14/19 01:10 98 T-Piece 5.0 28 08/14/19 00:00 99.4 101 24 116/63 (80) 98 08/13/19 22:00 95 116/51 08/13/19 21:00 Trach Collar 5.0 08/13/19 20:00 5.0 28 08/13/19 20:00 99.0 94 20 112/48 (69) 96 08/13/19 19:50 98 T-Piece 5.0 28 08/13/19 16:00 99.5 95 19 112/43 (66) 95 08/13/19 16:00 5.0 28 08/13/19 14:57 105 112/55 Height (Feet): 5 Height (Inches): 8.00 Weight (Pounds): 126 Objective General Appearance: cachetic, thin female, On Tbar 28% HEENT: normocephalic, atraumatic, PERRL Respiratory/Chest: Coarse B/L Cardiovascular/Chest: RRR, S1, S2 Abdomen: normal bowel sounds, non tender Laboratory Tests Test 08/14/19 05:42 White Blood Count 12.7 K/UL (4.8-10.8) H Red Blood Count 2.60 M/UL (4.20-5.40) L Hemoglobin 7.7 G/DL (12.0-16.0) L Hematocrit 23.7 % (37.0-47.0) L Mean Corpuscular Volume 91 FL (80-99) Mean Corpuscular Hemoglobin 29.6 PG (27.0-31.0) Mean Corpuscular Hemoglobin Concent 32.6 G/DL (32.0-36.0) Red Cell Distribution Width 12.1 % (11.6-14.8) Platelet Count 298 K/UL (150-450) Mean Platelet Volume 7.0 FL (6.5-10.1) Neutrophils (%) (Auto) % (45.0-75.0) Lymphocytes (%) (Auto) % (20.0-45.0) Monocytes (%) (Auto) % (1.0-10.0) Eosinophils (%) (Auto) % (0.0-3.0) Basophils (%) (Auto) % (0.0-2.0) Differential Total Cells Counted 100 Neutrophils % (Manual) 57 % (45-75) Lymphocytes % (Manual) 27 % (20-45) Monocytes % (Manual) 10 % (1-10) Eosinophils % (Manual) 6 % (0-3) H Basophils % (Manual) 0 % (0-2) Band Neutrophils 0 % (0-8) Platelet Estimate Adequate Platelet Morphology Normal Polychromasia 1+ Hypochromasia 1+ Sodium Level 137 MMOL/L (136-145) Potassium Level 5.1 MMOL/L (3.5-5.1) Chloride Level 103 MMOL/L (98-107) Carbon Dioxide Level 27 MMOL/L (21-32) Anion Gap 7 mmol/L (5-15) Blood Urea Nitrogen 28 mg/dL (7-18) H Creatinine 1.5 MG/DL (0.55-1.30) H Estimat Glomerular Filtration Rate mL/min (>60) Glucose Level 110 MG/DL (74-106) H Calcium Level 8.8 MG/DL (8.5-10.1) Current Medications Medications (Trade) Dose Ordered Sig/Torsten Route PRN Reason Start Time Stop Time Status Last Admin Dose Admin Acetaminophen (Tylenol) 650 mg Q4H PRN GT fever (temp>100.5F) 08/06/19 20:00 09/05/19 19:59 08/14/19 08:18 Acetaminophen (Tylenol) 650 mg Q4H PRN GT headache, mild pain 08/06/19 20:00 09/05/19 19:59 Amikacin Protocol (Amikacin pharmacy to dose) 1 ea DAILY PRN MISC Per rx protocol 08/12/19 11:30 09/11/19 11:29 Amikacin Sulfate 850 mg/Sodium Chloride 113.4 ml @ 113.4 mls/ hr Q48H IV 08/12/19 14:00 08/19/19 13:59 08/12/19 14:22 Digoxin (Lanoxin) 0.125 mg DAILY GT 08/14/19 09:00 09/13/19 08:59 Diltiazem HCl (Cardizem) 30 mg EVERY 8 HOURS GT 08/14/19 06:00 09/13/19 05:59 08/14/19 05:55 Docusate Sodium (Colace) 100 mg BID GT 08/09/19 18:00 09/08/19 17:59 08/13/19 18:18 Heparin Sodium (Porcine) (Heparin 5000 units/ml) 5,000 units EVERY 12 HOURS SUBQ 08/06/19 21:00 09/05/19 08:59 08/14/19 08:19 Levothyroxine Sodium (Synthroid) 125 mcg Q24H GT 08/07/19 06:30 09/06/19 06:29 08/14/19 06:00 Lorazepam (Ativan) 0.5 mg Q6H PRN GT For Anxiety 08/14/19 08:00 08/21/19 07:59 Memantine (Namenda) 5 mg QHS GT 08/14/19 21:00 09/13/19 20:59 Pantoprazole (Protonix) 40 mg EVERY 12 HOURS IVP 08/06/19 21:00 09/05/19 10:59 08/14/19 08:13 Trimethoprim/ Sulfamethoxazole 16.5 ml/Dextrose 566.5 ml @ 134.881 mls/hr [id number] BACTRIM IV 08/12/19 16:00 08/19/19 15:59 08/14/19 08:11 Martin Vance MD Aug 14, 2019 14:02
--- NOTE | 2019-08-14 14:56 | General Progress Note ---
Assessment/Plan Problem List: (1) Decubitus skin ulcer ICD Codes: L89.90 - Pressure ulcer of unspecified site, unspecified stage SNOMED: 063819569 (2) Hypernatremia ICD Codes: E87.0 - Hyperosmolality and hypernatremia SNOMED: 11182129 (3) Hypotension ICD Codes: I95.9 - Hypotension, unspecified SNOMED: 01536274 (4) Anemia ICD Codes: D64.9 - Anemia, unspecified SNOMED: 391968875 (5) Seizure disorder ICD Codes: G40.909 - Epilepsy, unspecified, not intractable, without status epilepticus SNOMED: 497839860 (6) Septic shock ICD Codes: A41.9 - Sepsis, unspecified organism; R65.21 - Severe sepsis with septic shock SNOMED: 55207754 (7) HTN (hypertension) ICD Codes: I10 - Essential (primary) hypertension SNOMED: 90261796 (8) Cardiomyopathy ICD Codes: I42.9 - Cardiomyopathy, unspecified SNOMED: 60315825 (9) Sepsis ICD Codes: A41.9 - Sepsis, unspecified organism SNOMED: 27092380 Qualifiers: Qualified Codes: A41.9 - Sepsis, unspecified organism (10) Acute and chronic respiratory failure ICD Codes: J96.20 - Acute and chronic respiratory failure, unspecified whether with hypoxia or hypercapnia SNOMED: 70606570 (11) Tracheostomy care ICD Codes: Z43.0 - Encounter for attention to tracheostomy SNOMED: 519657109 (12) Bowel obstruction ICD Codes: K56.609 - Unspecified intestinal obstruction, unspecified as to partial versus complete obstruction SNOMED: 60236928 (13) Feeding by G-tube ICD Codes: Z93.1 - Gastrostomy status SNOMED: 514423621, 374684944 (14) Malfunction of gastrostomy tube ICD Codes: K94.23 - Gastrostomy malfunction SNOMED: 790817032 (15) Chronic respiratory failure ICD Codes: J96.10 - Chronic respiratory failure, unspecified whether with hypoxia or hypercapnia SNOMED: 23858731 Qualifiers: Qualified Codes: J96.10 - Chronic respiratory failure, unspecified whether with hypoxia or hypercapnia (16) Chronic vegetative state ICD Codes: R40.3 - Persistent vegetative state SNOMED: 11777097 (17) Nosocomial pneumonia ICD Codes: J18.9 - Pneumonia, unspecified organism SNOMED: 141797695 (18) Fecal impaction ICD Codes: K56.41 - Fecal impaction SNOMED: 07928471 (19) ATN (acute tubular necrosis) ICD Codes: N17.0 - Acute kidney failure with tubular necrosis SNOMED: 80374292 (20) Ileus ICD Codes: K56.7 - Ileus, unspecified SNOMED: 991404806 (21) Acute on chronic renal failure ICD Codes: N17.9 - Acute kidney failure, unspecified; N18.9 - Chronic kidney disease, unspecified SNOMED: 625635878 (22) UTI (urinary tract infection) ICD Codes: N39.0 - Urinary tract infection, site not specified SNOMED: 54656621 (23) Anemia ICD Codes: D64.9 - Anemia, unspecified SNOMED: 054641855 Status: unchanged Assessment/Plan: o2 pulm tx trach care abx diet cbc bmp am heme gi eval Subjective Constitutional: Reports: weakness Allergies: Coded Allergies: ASPIRIN (Verified Allergy, Unknown, 07/07/17) All Systems: reviewed and negative except above Subjective trach aerosol calm Objective Last 24 Hour Vital Signs Date Time Temp Pulse Resp B/P (MAP) Pulse Ox O2 Delivery O2 Flow Rate FiO2 08/14/19 12:00 100.0 104 22 108/49 (68) 100 08/14/19 12:00 5.0 28 08/14/19 09:00 Trach Collar 5.0 08/14/19 08:48 98.4 08/14/19 08:17 60 08/14/19 08:00 100.6 65 20 104/68 (80) 100 08/14/19 08:00 5.0 28 08/14/19 05:55 104 126/60 08/14/19 04:00 5.0 28 08/14/19 04:00 98.2 89 20 119/46 (70) 96 08/14/19 01:10 98 T-Piece 5.0 28 08/14/19 00:00 99.4 101 24 116/63 (80) 98 08/13/19 22:00 95 116/51 08/13/19 21:00 Trach Collar 5.0 08/13/19 20:00 5.0 28 08/13/19 20:00 99.0 94 20 112/48 (69) 96 08/13/19 19:50 98 T-Piece 5.0 28 08/13/19 16:00 99.5 95 19 112/43 (66) 95 08/13/19 16:00 5.0 28 08/13/19 14:57 105 112/55 Intake and Output 08/13/19 08/14/19 19:00 07:00 Intake Total 1995.262 ml 1846.500 ml Output Total 1000 ml Balance 1996.262 ml 846.500 ml Intake Oral 100 ml Free Water 200 ml 300 ml IV Total 836.262 ml 566.500 ml Tube Feeding 960 ml 880 ml Output Urine Total 1000 ml # Bowel Movements 1 2 Laboratory Tests 08/14/19 05:42: White Blood Count 12.7H, Red Blood Count 2.60L, Hemoglobin 7.7L, Hematocrit 23.7L, Mean Corpuscular Volume 91, Mean Corpuscular Hemoglobin 29.6, Mean Corpuscular Hemoglobin Concent 32.6, Red Cell Distribution Width 12.1, Platelet Count 298, Mean Platelet Volume 7.0, Neutrophils (%) (Auto) , Lymphocytes (%) ( Auto) , Monocytes (%) (Auto) , Eosinophils (%) (Auto) , Basophils (%) (Auto) , Differential Total Cells Counted 100, Neutrophils % (Manual) 57, Lymphocytes % ( Manual) 27, Monocytes % (Manual) 10, Eosinophils % (Manual) 6H, Basophils % ( Manual) 0, Band Neutrophils 0, Platelet Estimate Adequate, Platelet Morphology Normal, Polychromasia 1+, Hypochromasia 1+, Sodium Level 137, Potassium Level 5.1, Chloride Level 103, Carbon Dioxide Level 27, Anion Gap 7, Blood Urea Nitrogen 28H, Creatinine 1.5H, Estimat Glomerular Filtration Rate , Glucose Level 110H, Calcium Level 8.8 Height (Feet): 5 Height (Inches): 8.00 Weight (Pounds): 126 General Appearance: lethargic EENT: normal ENT inspection Neck: normal alignment Cardiovascular: normal peripheral pulses, normal rate, regular rhythm Respiratory/Chest: chest wall non-tender, lungs clear, normal breath sounds Abdomen: normal bowel sounds, non tender, soft Extremities: normal inspection Edema: no edema noted Arm (L), no edema noted Arm (R), no edema noted Leg (L), no edema noted Leg (R), no edema noted Pedal (L), no edema noted Pedal (R), no edema noted Generalized Neurologic: motor weakness Skin: normal pigmentation, warm/dry Rl White DO Aug 14, 2019 14:56
[2019-08-14 15:48] VITALS: BP 112/46
--- NOTE | 2019-08-14 16:00 | Progress Note ---
DATE: 08/14/2019 SUBJECTIVE: This is an 84-year-old female patient with hypernatremia. She has altered mental status, high levels of anxiety, and mood lability worsened by stress of her medical illness. MENTAL STATUS EXAMINATION: This is an 84-year-old female. Appearance is disheveled. Attitude, irritable and agitated. Affect, guarded and restricted. Intellect, poor. Mood, depressed and anxious. Motor activity, psychomotor agitation. Insight and judgment is poor. DIAGNOSIS: Major depressive disorder, mild, recurrent with psychotic features; rule out generalized anxiety disorder. PLAN: Plan for this patient is I am going to treat her with a medication regimen consisting of Namenda 5 mg per G-tube nightly and also Ativan 0.5 mg per G-tube every 6 hours p.r.n. anxiety or agitation. I encouraged her to interact appropriately with staff. A 20 minutes of behavioral management provided. Chart reviewed. Discussed with staff. The patient was seen and assessed at bedside. Steven Dunlap M.D. DR: NATHANAEL JOB#: [id number] CC:
--- NOTE | 2019-08-14 16:48 | NUR ---
TRUCK ASSEMBLER NOTES SPOKE WITH NICKI FROM [facility] [place] TO RETURN TO ROOM 336 BED A. NURSE TO CALL REPORT TO [phone].
--- NOTE | 2019-08-14 17:00 | NUR ---
NURSE NOTES: Dr. mccloud cleared the patient for discharges even though patient had episodes of fever and Dr. rowley is aware of hemoglobin of 7.7. per Dr. Torres' note, transfuse if hemoglobin is less than 7. Patient has no no episodes of bleeding.
--- NOTE | 2019-08-14 17:05 | NUR ---
DISCHARGE PLANNING DISCHARGE ORDER NOTED Patient has been accepted to; [facility] [address] [place] [address] Bed: 336A Skilled for Nurse to Nurse report [facility] ETA for transportation: 18:00
--- NOTE | 2019-08-14 17:25 | NUR ---
NURSE NOTES: RN spoke to Boyd from [facility] and informed that patient has a trach.Per Boyd, Regular BLS was arrange for the patient. He will arrange with RT and ambulance was rearranged to 19:00pm.
--- NOTE | 2019-08-14 18:33 | Surgery Progress Note ---
Surgery Progress Note Subjective Symptoms: other Objective Last 24 Hour Vital Signs Date Time Temp Pulse Resp B/P (MAP) Pulse Ox O2 Delivery O2 Flow Rate FiO2 08/14/19 16:00 5.0 28 08/14/19 15:48 100.0 93 20 112/46 (68) 98 08/14/19 14:05 98 T-Piece 5.0 28 08/14/19 14:00 104 108/49 08/14/19 12:00 100.0 104 22 108/49 (68) 100 08/14/19 12:00 5.0 28 08/14/19 10:00 97 T-Piece 5.0 28 08/14/19 09:00 Trach Collar 5.0 08/14/19 08:48 98.4 08/14/19 08:17 60 08/14/19 08:00 100.6 65 20 104/68 (80) 100 08/14/19 08:00 5.0 28 08/14/19 05:55 104 126/60 08/14/19 04:00 5.0 28 08/14/19 04:00 98.2 89 20 119/46 (70) 96 08/14/19 01:10 98 T-Piece 5.0 28 08/14/19 00:00 99.4 101 24 116/63 (80) 98 08/13/19 22:00 95 116/51 08/13/19 21:00 Trach Collar 5.0 08/13/19 20:00 5.0 28 08/13/19 20:00 99.0 94 20 112/48 (69) 96 08/13/19 19:50 98 T-Piece 5.0 28 I&O Intake and Output 08/13/19 08/14/19 19:00 07:00 Intake Total 1995.262 ml 1846.500 ml Output Total 1000 ml Balance 1996.262 ml 846.500 ml Intake Oral 100 ml Free Water 200 ml 300 ml IV Total 836.262 ml 566.500 ml Tube Feeding 960 ml 880 ml Output Urine Total 1000 ml # Bowel Movements 1 2 Dressing: saturated Wound: other Drains: other Cardiovascular: RSR Respiratory: decreased breath sounds Abdomen: soft, non-distended, decreased bowel sounds Extremities: edema, no cyanosis, other Laboratory Tests Test 08/14/19 05:42 White Blood Count 12.7 K/UL (4.8-10.8) H Red Blood Count 2.60 M/UL (4.20-5.40) L Hemoglobin 7.7 G/DL (12.0-16.0) L Hematocrit 23.7 % (37.0-47.0) L Mean Corpuscular Volume 91 FL (80-99) Mean Corpuscular Hemoglobin 29.6 PG (27.0-31.0) Mean Corpuscular Hemoglobin Concent 32.6 G/DL (32.0-36.0) Red Cell Distribution Width 12.1 % (11.6-14.8) Platelet Count 298 K/UL (150-450) Mean Platelet Volume 7.0 FL (6.5-10.1) Neutrophils (%) (Auto) % (45.0-75.0) Lymphocytes (%) (Auto) % (20.0-45.0) Monocytes (%) (Auto) % (1.0-10.0) Eosinophils (%) (Auto) % (0.0-3.0) Basophils (%) (Auto) % (0.0-2.0) Differential Total Cells Counted 100 Neutrophils % (Manual) 57 % (45-75) Lymphocytes % (Manual) 27 % (20-45) Monocytes % (Manual) 10 % (1-10) Eosinophils % (Manual) 6 % (0-3) H Basophils % (Manual) 0 % (0-2) Band Neutrophils 0 % (0-8) Platelet Estimate Adequate Platelet Morphology Normal Polychromasia 1+ Hypochromasia 1+ Sodium Level 137 MMOL/L (136-145) Potassium Level 5.1 MMOL/L (3.5-5.1) Chloride Level 103 MMOL/L (98-107) Carbon Dioxide Level 27 MMOL/L (21-32) Anion Gap 7 mmol/L (5-15) Blood Urea Nitrogen 28 mg/dL (7-18) H Creatinine 1.5 MG/DL (0.55-1.30) H Estimat Glomerular Filtration Rate mL/min (>60) Glucose Level 110 MG/DL (74-106) H Calcium Level 8.8 MG/DL (8.5-10.1) Plan Problems: (1) Sepsis Assessment & Plan: 84-year-old very unfortunate female with multiple medical comorbidities who has leukocytosis, lactic acidosis, likely UTI. Presents with multiple wounds and unstageable decubitus ulcers. Wound evaluated at bedside and unlikely the etiology of patient's sepsis. Leukocytosis lactic sepsis likely due to UTI. Patient currently on IV antibiotics as per infectious disease. Lactic acidosis improving. Exam as above. Care management as presented below. We will continue to follow recommendations. Thank you for allowing me to participate in patient's care. wbc improved. febrile. cultures pending final Worsening leukocytosis and abnormal ESR and CRP elevated. Abnormal labs. Continues to be fairly ill without significant recovery or improvement at this time. Prognosis very guarded. We will continue with above care plan. (2) Tracheostomy care Assessment & Plan: Trach site stable. Respiratory as per pulm (3) Feeding by G-tube Assessment & Plan: DAILY ESTIMATED NEEDS: Needs based on Wound, pulmonary 59.8kg 30-35 kcals/kg 5028-9283 total kcals 1.25-1.5 g protein/kg 75-90 g total protein 25-30ml/kcal mL/kg 9159-0778 total fluid mLs NUTRITION DIAGNOSIS: * Swallowing difficulty R/T respiratory status, dysphagia as evidenced by pt is vent dep via T-collar + PEG dep, NPO at this time * Increased kcal/prot needs R/T wound healing as evidenced by pt admitted w/ full thickness pressure sacral injury, with multiple other wounds, eval pending. (CURRENT TF: NPO) ENTERAL NUTRITION RECOMMENDATIONS: Jevity 1.2 @ 70ml/hr x 22 hrs + Prosource 1pkt QD to provide 1540ml, 1848 kcal, 85g pro, 1243 - As medically able, rec Jevity 1.2, start @30ml/hr for 6 hrs. Advance as tolerated 10ml/hr q4-6 hrs to goal - HOLD TF 1 hr before and after synthroid meds - HOB >30 degrees/ water flushes per MD - TF @ goal provides 100% of RDI. ADDITIONAL RECOMMENDATIONS: 1) Calibrated bedscale wts (EMR wt: 160 lbs vs Bed wt: 131.6lbs) 2) Rec water flushes, 120ml q6 hrs 3) Monitor BGs closely, need for hypoglycemic agents or TF change 4) Wound healing: Vit C 250mg BID Add Tommie 1pkt in 4oz H2O BID 5) F/up w/ H&P and WC eval . (4) Decubitus skin ulcer Assessment & Plan: Pt presented on admission with multiple pressure injuries. Skin assessed under trach collar and no evidence of skin breakdown noted. Unstageable pressure injury noted to sacrum(L)1.5cm x (W)2cm. Base of wound has 75% slough,25%pink granulation. Borders are macerated with surrounding non- blanching erythema. R heel Maroon,fluctuant in center with surrounding dry black borders(L)5.5cm x (W)9cm. Reabsorbed DTPI noted to L heel. Base of wound is Black and dry. Surrounding dry peeling skin without erythema.(L)5.5cm x (W)8.5cm. Inferior but in close proximity to Medial L malleolus necrotic area over bony prominence noted. Base of wound is dry without fluctuance. Periwound without discoloration.(L)1.5cm x (W)1cm. Non-Blanching erythema noted to L 1st metatarsal head and lateral aspect. No elevation in skin temp noted. Tx.Plan: Cleanse Sacral wound with Saline. Apply TheraHoney . Apply Moisture Barrier paste periwound. Cover with Optifoam drsg. Change every 3 days and prn. Apply Betadine to R heel. Cover with Optifoam drsg. Change every 3 days and prn. Apply Betadine to L Heel and Medial L foot. Cover with Optifoam drsg. Change every 3 days and prn. Apply Cavilon Skin Barrier to L 1st metatarsal head and lateral aspect Daily and prn. APM/MARCOS Mattress overlay. Reposition at least every 2hours or as tolerated. Off-load heels with pillow. Place pillow between knees. Livan Dean Aug 14, 2019 18:33
[2019-08-14] MEDS ORDERED: ACETAMINOPHEN325 M1 ORAL (18:43)
[2019-08-14] MEDS ORDERED: COLISTIMETHATE150 MG IJ (18:44)
[2019-08-14] MEDS ORDERED: DIGOXIN0.125 MG/2 ORAL (18:45)
[2019-08-14] MEDS ORDERED: CARDIZEM30 M1 PO (18:46)
--- NOTE | 2019-08-14 18:46 | Hematology/Onc Progress Note ---
Assessment/Plan Assessment/Plan Assessment and Recs: # Anemia of chronic disease due to underlying chronic medical issues, multifactorial --> Anemia workup has been reviewed, ferritin is 610--?853 --> No evidence of hemolysis is noted, peripheral smear has been reviewed. --> Hgb goal >7. Transfuse prn. --> Epogen or iron at this time is not particularly indicated --> Medications have been reviewed --> evaluate with Gi team prn --> currently dnr, HOLDING OFF colo and egd --> transfuse if hgb is < 7 (will trend CBC daily) --> stool ob is negative --> hgb trend 8.3-->8.2 -->9.9-->8.6-->7.7 stool ob negative # Leukocytosis on admission due to sepsis --> due to uti per id --> on vanc/cefe-->meropenem-->bactrim/amik --> wbc trend: 6.9-->13-->12.7 # Acute on chronic Renal failure --> per renal Fouladian --> cr has improved --> 1.6-->1.3 # Acute on chronic respiratory failure s/p trach ++ with revision --> Pneumothorax s/p chest tube HISTory --> per Gigi # UTI # HypoAlbuminemia # HTN # + PEG with Fecal impaction # Dvt ppx scds/heparin The timing of this note does not necessarily reflect the time of the patient was seen. Greatly appreciate consultation! Subjective Allergies: Coded Allergies: ASPIRIN (Verified Allergy, Unknown, 07/07/17) Subjective 08/11: no acute events, trach, h/h stable, on abx 08/12: no major changes, remains on trach, no f/c noted wbc 13 08/13: nonverbal, recs reviewed, dw rn, no events 08/14: cxr unchanged, no acute events, dc planning Objective Objective Current Medications Medications (Trade) Dose Ordered Sig/Torsten Route PRN Reason Start Time Stop Time Status Last Admin Dose Admin Acetaminophen (Tylenol) 650 mg Q4H PRN GT fever (temp>100.5F) 08/06/19 20:00 09/05/19 19:59 08/14/19 08:18 Acetaminophen (Tylenol) 650 mg Q4H PRN GT headache, mild pain 08/06/19 20:00 09/05/19 19:59 Colistimethate Sodium (Colistin *inhalation use only*) 150 mg Q12HR@10,22 INH 08/14/19 22:00 08/21/19 21:59 Digoxin (Lanoxin) 0.125 mg DAILY GT 08/14/19 09:00 09/13/19 08:59 Diltiazem HCl (Cardizem) 30 mg EVERY 8 HOURS GT 08/14/19 06:00 09/13/19 05:59 08/14/19 05:55 Docusate Sodium (Colace) 100 mg BID GT 08/09/19 18:00 09/08/19 17:59 08/13/19 18:18 Heparin Sodium (Porcine) (Heparin 5000 units/ml) 5,000 units EVERY 12 HOURS SUBQ 08/06/19 21:00 09/05/19 08:59 08/14/19 08:19 Levothyroxine Sodium (Synthroid) 125 mcg Q24H GT 08/07/19 06:30 09/06/19 06:29 08/14/19 06:00 Lorazepam (Ativan) 0.5 mg Q6H PRN GT For Anxiety 08/14/19 08:00 08/21/19 07:59 Memantine (Namenda) 5 mg QHS GT 08/14/19 21:00 09/13/19 20:59 Pantoprazole (Protonix) 40 mg EVERY 12 HOURS IVP 08/06/19 21:00 09/05/19 10:59 08/14/19 08:13 Trimethoprim/ Sulfamethoxazole 16.5 ml/Dextrose 566.5 ml @ 134.881 mls/hr Q12HR@0800,1999 IV 08/14/19 20:00 08/21/19 19:59 Last 24 Hour Vital Signs Date Time Temp Pulse Resp B/P (MAP) Pulse Ox O2 Delivery O2 Flow Rate FiO2 08/14/19 16:00 5.0 28 08/14/19 15:48 100.0 93 20 112/46 (68) 98 08/14/19 14:05 98 T-Piece 5.0 28 08/14/19 14:00 104 108/49 08/14/19 12:00 100.0 104 22 108/49 (68) 100 08/14/19 12:00 5.0 28 08/14/19 10:00 97 T-Piece 5.0 28 08/14/19 09:00 Trach Collar 5.0 08/14/19 08:48 98.4 08/14/19 08:17 60 08/14/19 08:00 100.6 65 20 104/68 (80) 100 08/14/19 08:00 5.0 28 08/14/19 05:55 104 126/60 08/14/19 04:00 5.0 28 08/14/19 04:00 98.2 89 20 119/46 (70) 96 08/14/19 01:10 98 T-Piece 5.0 28 08/14/19 00:00 99.4 101 24 116/63 (80) 98 08/13/19 22:00 95 116/51 08/13/19 21:00 Trach Collar 5.0 08/13/19 20:00 5.0 28 08/13/19 20:00 99.0 94 20 112/48 (69) 96 08/13/19 19:50 98 T-Piece 5.0 28 08/13/19 16:00 99.5 95 19 112/43 (66) 95 08/13/19 16:00 5.0 28 08/13/19 14:57 105 112/55 08/13/19 12:45 98 T-Piece 5.0 28 08/13/19 12:00 5.0 28 08/13/19 12:00 98.6 90 18 119/71 (87) 97 08/13/19 09:21 93 08/13/19 09:00 Trach Collar 5.0 08/13/19 08:02 98 T-Piece 5.0 28 08/13/19 08:00 98.4 93 20 120/72 (88) 98 08/13/19 08:00 5.0 28 08/13/19 05:27 100 116/70 08/13/19 04:56 5.0 28 08/13/19 04:00 98.2 105 28 116/52 (73) 95 08/13/19 01:25 99 T-Piece 5.0 28 08/13/19 00:00 98.6 101 26 125/66 (85) 99 08/12/19 22:19 97 127/74 08/12/19 21:26 Trach Collar 5.0 08/12/19 20:41 5.0 28 08/12/19 20:18 98 T-Piece 5.0 28 08/12/19 20:00 98.4 107 24 124/60 (81) 98 Intake and Output 08/13/19 08/14/19 19:00 07:00 Intake Total 1996.262 ml 1846.500 ml Output Total 1000 ml Balance 1996.262 ml 846.500 ml Intake Oral 100 ml Free Water 200 ml 300 ml IV Total 836.262 ml 566.500 ml Tube Feeding 960 ml 880 ml Output Urine Total 1000 ml # Bowel Movements 1 2 Labs Test 08/12/19 09:15 08/13/19 03:00 08/13/19 04:45 08/14/19 05:42 White Blood Count 13.1 K/UL (4.8-10.8) 13.3 K/UL (4.8-10.8) 13.1 K/UL (4.8-10.8) 12.7 K/UL (4.8-10.8) Red Blood Count 3.34 M/UL (4.20-5.40) 3.03 M/UL (4.20-5.40) 2.85 M/UL (4.20-5.40) 2.60 M/UL (4.20-5.40) Hemoglobin 9.9 G/DL (12.0-16.0) 8.9 G/DL (12.0-16.0) 8.6 G/DL (12.0-16.0) 7.7 G/DL (12.0-16.0) Hematocrit 30.9 % (37.0-47.0) 27.5 % (37.0-47.0) 26.0 % (37.0-47.0) 23.7 % (37.0-47.0) Mean Corpuscular Volume 92 FL (80-99) 91 FL (80-99) 91 FL (80-99) 91 FL (80- 99) Mean Corpuscular Hemoglobin 29.7 PG (27.0-31.0) 29.5 PG (27.0-31.0) 30.3 PG (27.0-31.0) 29.6 PG (27.0-31.0) Mean Corpuscular Hemoglobin Concent 32.1 G/DL (32.0-36.0) 32.4 G/DL (32.0-36.0) 33.2 G/DL (32.0-36.0) 32.6 G/DL (32.0-36.0) Red Cell Distribution Width 12.6 % (11.6-14.8) 12.5 % (11.6-14.8) 12.6 % (11.6-14.8) 12.1 % (11.6-14.8) Platelet Count 315 K/UL (150-450) 291 K/UL (150-450) 252 K/UL (150-450) 298 K/UL (150-450) Mean Platelet Volume 7.9 FL (6.5-10.1) 6.0 FL (6.5-10.1) 8.5 FL (6.5-10.1) 7.0 FL (6.5-10.1) Neutrophils (%) (Auto) 76.4 % (45.0-75.0) 73.5 % (45.0-75.0) 70.2 % (45.0-75.0) % (45.0-75.0) Lymphocytes (%) (Auto) 16.0 % (20.0-45.0) 17.8 % (20.0-45.0) 20.8 % (20.0-45.0) % (20.0-45.0) Monocytes (%) (Auto) 3.8 % (1.0-10.0) 6.3 % (1.0-10.0) 5.3 % (1.0-10.0) % (1.0-10.0) Eosinophils (%) (Auto) 3.1 % (0.0-3.0) 2.2 % (0.0-3.0) 3.1 % (0.0-3.0) % (0.0-3.0) Basophils (%) (Auto) 0.7 % (0.0-2.0) 0.2 % (0.0-2.0) 0.5 % (0.0-2.0) % (0.0-2.0) Sodium Level 145 MMOL/L (136-145) 139 MMOL/L (136-145) 137 MMOL/L (136-145) Potassium Level 4.4 MMOL/L (3.5-5.1) 4.4 MMOL/L (3.5-5.1) 5.1 MMOL/L (3.5-5.1) Chloride Level 110 MMOL/L (98-107) 107 MMOL/L (98-107) 103 MMOL/L (98-107) Carbon Dioxide Level 26 MMOL/L (21-32) 23 MMOL/L (21-32) 27 MMOL/L (21-32) Anion Gap 9 mmol/L (5-15) 9 mmol/L (5-15) 7 mmol/L (5-15) Blood Urea Nitrogen 23 mg/dL (7-18) 26 mg/dL (7-18) 28 mg/dL (7-18) Creatinine 1.2 MG/DL (0.55-1.30) 1.2 MG/DL (0.55-1.30) 1.5 MG/DL (0.55-1.30) Estimat Glomerular Filtration Rate mL/min (>60) mL/min (>60) mL/min (>60) Glucose Level 133 MG/DL (74-106) 134 MG/DL (74-106) 110 MG/DL (74-106) Calcium Level 9.5 MG/DL (8.5-10.1) 9.0 MG/DL (8.5-10.1) 8.8 MG/DL (8.5-10.1) Total Bilirubin 0.3 MG/DL (0.2-1.0) 0.2 MG/DL (0.2-1.0) Aspartate Amino Transf (AST/SGOT) 27 U/L (15-37) 25 U/L (15-37) Alanine Aminotransferase (ALT/SGPT) 35 U/L (12-78) 29 U/L (12-78) Alkaline Phosphatase 129 U/L (46-116) 121 U/L (46-116) Pro-B-Type Natriuretic Peptide 610 pg/mL (0-125) 809 pg/mL (0-125) Total Protein 9.0 G/DL (6.4-8.2) 8.4 G/DL (6.4-8.2) Albumin 2.9 G/DL (3.4-5.0) 2.6 G/DL (3.4-5.0) Globulin 6.1 g/dL 5.8 g/dL Albumin/Globulin Ratio 0.5 (1.0-2.7) 0.4 (1.0-2.7) Random Amikacin Level 14.7 ug/mL Differential Total Cells Counted 100 Neutrophils % (Manual) 57 % (45-75) Lymphocytes % (Manual) 27 % (20-45) Monocytes % (Manual) 10 % (1-10) Eosinophils % (Manual) 6 % (0-3) Basophils % (Manual) 0 % (0-2) Band Neutrophils 0 % (0-8) Platelet Estimate Adequate Platelet Morphology Normal Polychromasia 1+ Hypochromasia 1+ Height (Feet): 5 Height (Inches): 8.00 Weight (Pounds): 126 Objective PE Vital Signs reviewed General: lethargic, obese, Stupor Head: at Neck: supple Respiratory: ++trach Cardiovascular: tachycardia Gastrointestinal: G-tube in place Msk: Contractures lower extremities Micha Torres MD Aug 14, 2019 18:46
[2019-08-14] MEDS ORDERED: COLACE100 MG/10 GT (18:48)
[2019-08-14] MEDS ORDERED: ATIVAN0.5 MG ORAL (18:48)
[2019-08-14] MEDS ORDERED: PANTOPRAZOLE SO40 MG ORAL (18:49)
[2019-08-14] MEDS ORDERED: BACTRIM 400-801 EACH ORAL ×2 (18:50→18:53)
--- NOTE | 2019-08-14 19:00 | NUR ---
NURSE NOTES: [facility] will be in 45mins.
--- NOTE | 2019-08-14 19:19 | NUR ---
HAND-OFF: Report given to
--- NOTE | 2019-08-14 19:25 | NUR ---
NURSE NOTES: Report given to [facility] nurse Freda. Updated nurse on patients status. Sodium levels back within normal limits. Educated nurse on orders for wound care on sacrum and right inner knee. Jevity 1.2 tube feeding at 80 cc / hr. Informed nurse to hold if residual greater than 100 cc and to flush 100 cc Q6hr. Was also passed along that patient had bowl movement today and is incontinent of both bowl and blader. Patient currently not in respiratory distress and HOB elevated 30 degrees. Discharge packet filled out and given to oncoming nurse. Ambulance estimated to arrive at 1945.
--- NOTE | 2019-08-14 19:30 | NUR ---
NURSE NOTES: Received patient in bed. A&OX0, non-verbal. IV site patent and intact. Trach in place. G-tube in place, running Jevity 1.2 80cc/hr, flushed, elevated HOB. Waiting for discharge. Bed in lowest position. Call light within reach. Will continue to monitor.
[2019-08-14 20:00] VITALS: BP 113/51
[2019-08-14] MEDS ORDERED: D5W IV SCH (20:00)
[2019-08-14] MEDS ORDERED: TRIMETHOPRIM IV SCH (20:00)
[2019-08-14] MEDS ORDERED: SULFAMETHOXAZOLE IV SCH (20:00)
--- NOTE | 2019-08-14 20:48 | NUR ---
NURSE NOTES: Patient discharged [facility] with stable condition. Picked up by ambulance staff. IV and ID band removed. Patient has no belongings. G-tube flushed and clamped.
[2019-08-14] MEDS ORDERED: Tubing IV Secondary IV ONE (20:49)
[2019-08-14] MEDS ORDERED: Memantine 5 MG TAB GT SCH (21:00)
[2019-08-14] MEDS ORDERED: Colistin for inhalation INH SCH (22:00)
--- NOTE | 2019-08-16 12:33 | Discharge Summary ---
Discharge Summary Discharge Summary _ DATE OF ADMISSION: 08/06/2019 DATE OF DISCHARGE: Pain 08/14/2019 DISCHARGED BY: Dr. White REASON FOR ADMISSION: 84 years old female with past medical history of COPD, chronic respiratory failure, tracheostomy status with trach collar, CVA, seizure disorder, quadriplegia, dementia, resident of senior care facility, was brought for evaluation due to abnormal labs. Patient was nonverbal and unable to provide any information. No reported fever and chills. Upon evaluation patient was tachycardic and tachypneic. Laboratory work-up revealed leukocytosis WBC 13.4 ,hemoglobin 10.6 ,hematocrit 34.7 ,platelet count 217. Lactic acid 3.0 . Sodium 169, BUN 60, creatinine 1.5. Glucose 110. Troponin 0.032 , pro BNP 389.EKG revealed sinus tachycardia, no acute ischemic changes. Stable LFT. Albumin 3.0. Chest x-ray revealed right lower lobe infiltrate/consolidation . Urinalysis revealed pyuria, +3 leukocyte esterase and many bacteria. In emergency department septic work-up was initiated. Patient started on the IV fluids, pancultured , received empiric antibiotic and admitted for further management. CONSULTANTS: front end web developer Dr. Conklin pulmonary Dr. Yu ID specialist Dr. Umana GI specialist Dr. Skinner brushing machine operator Dr. Case miniature model maker/oncologist Dr. Torres surgery Dr. Dean psychiatrist Dr. Dunlap HOSPITAL COURSE: Patient admitted to monitored floor and started on IV fluids and broad- spectrum antibiotic as per ID specialist recommendation. Urine culture grew Proteus mirabilis. Blood cultures were negative. Sputum culture grew Pseudomonas aeruginosa MDR and Acinetobacter MDR. Influenza swab was negative. Patient was followed -up with chest x-ray. Antitussive provided as needed. Tracheostomy care and pulmonary toilet with bronchodilators provided as needed. DVT and GI prophylaxis provided. Leukocytosis initially resolved , but then picked up again, prior to discharge WBC 12.7. Still intermittent low-grade fever. Patient will need to complete antibiotic at the facility as per ID specialist recommendation. Grape Cutter followed for management of hypertension crisis. Patient was on diltiazem 30 mg every 8 hours with holding parameters. Blood pressure stabilized. Last echocardiogram from 2017 showed preserved ejection fraction with grade 1 diastolic dysfunction. Renal parameters and electrolytes were closely monitored. Electrolytes corrected as needed , and nephrotoxic's were avoided. Hoop Maker closely followed. Renal failure was mainly prerenal due to dehydration . Hypernatremia also was due to dehydration/free water deficit. Albumin boluses provided as needed. Prior to discharge BUN from 60 down to 28 and creatinine from 1.5 sodium down to 137. Hemoglobin and hematocrit were closely monitored with goal to keep hemoglobin above 7. Anemia work-up revealed elevated ferritin. Anemia work-up revealed anemia of chronic disease due to underlying chronic medical issue, and was multifactorial. No evidence of hemolysis was noted. Stool for occult blood was negative. Prior to discharge hemoglobin 7.7 , hematocrit 23.7. Strict aspiration precaution maintained. G-tube feeding continued. Bowel regimen instituted. Seizure precaution maintained. No evidence of seizure activity while in the hospital. Patient noted to have low TSH 0.014 , free T4 slightly elevated 1.55 , free T3 stable. Prior to admission patient was on the levothyroxine. Levothyroxine was stopped . Thyroid function test will be repeated in 3 to 4 weeks. Per psychiatrist patient had major depressive disorder. Psychiatric medication regimen was optimized as per psychiatrist. Patient subsequently was transferred back to senior care facility for continuation of care. FINAL DIAGNOSES: Sepsis Pneumonia UTI Chronic respiratory failure Tracheostomy status Hypernatremia Acute on chronic renal failure Dehydration Dysphagia, feeding by G-tube Seizure disorder Cardiomyopathy Chronic vegetative state Anemia Seizure disorder History of hypothyroidism with abnormal TFT Hypertensive crisis Anemia of chronic disease Major depressive disorder mild, recurrent with psychotic features DISCHARGE MEDICATIONS: See Medication Reconciliation list. DISCHARGE INSTRUCTIONS: Patient was discharged to the senior care facility. Follow up with medical doctor at the facility. Tatiana Ramos NP Aug 16, 2019 12:33
== END 2019-08-14 20:50 | DRG 871 ==
LOC: EDBD 23:30 → EDSEX 23:30 → EMR 23:55 → 2E 08-06 00:16 → EDBEDREQ 08-06 03:08 → 4E 08-06 18:04
DX: A41.9 Sepsis, unspecified organism (principal); J18.9 Pneumonia, unspecified organism; N17.0 Acute kidney failure with tubular necrosis; G82.50 Quadriplegia, unspecified; E87.0 Hyperosmolality and hypernatremia; N17.9 Acute kidney failure, unspecified; E46 Unspecified protein-calorie malnutrition; J96.10 Chronic respiratory failure, unspecified whether with hypoxia or hypercapnia; Z43.1 Encounter for attention to gastrostomy; N39.0 Urinary tract infection, site not specified; F33.0 Major depressive disorder, recurrent, mild; I16.9 Hypertensive crisis, unspecified; R40.3 Persistent vegetative state; I42.9 Cardiomyopathy, unspecified; K56.609 Unspecified intestinal obstruction, unspecified as to partial versus complete obstruction; Y95 Nosocomial condition; I12.9 Hypertensive chronic kidney disease with stage 1 through stage 4 chronic kidney disease, or unspecified chronic kidney disease; N18.9 Chronic kidney disease, unspecified; Z88.6 Allergy status to analgesic agent; N28.1 Cyst of kidney, acquired; J44.9 Chronic obstructive pulmonary disease, unspecified; I48.91 Unspecified atrial fibrillation; F03.90 Unspecified dementia, unspecified severity, without behavioral disturbance, psychotic disturbance, mood disturbance, and anxiety; K56.41 Fecal impaction; R13.10 Dysphagia, unspecified; G40.909 Epilepsy, unspecified, not intractable, without status epilepticus; L89.95 Pressure ulcer of unspecified site, unstageable; Z43.0 Encounter for attention to tracheostomy; D63.8 Anemia in other chronic diseases classified elsewhere; E86.0 Dehydration; L89.150 Pressure ulcer of sacral region, unstageable
CPT/HCPCS: 36415; 36600; 71045; 80048; 80053; 80150; 80202; 81003; 82270; 82550; 82553; 82607; 82728; 82746; 82803; 83540; 83550; 83605; 83735; 83880; 84100; 84439; 84443; 84481; 84484; 84550; 85007; 85025; 85610; 85651; 85730; 86140; 86710; 87040; 87070; 87081; 87086; 87181; 87205; 93005; 96361; 96365; 96368; 99285; J7030; J8499